=== PATIENT | female | born 1950 | race Caucasian/White ===

== ENCOUNTER 2017-08-20 10:50 | Emergency (ER) | payer MEDICARE, SELFPAY ==
[2017-08-20 10:50] VITALS: BP 186/102; PULSE 76; RESP 18; TEMP 36.6; O2SAT 97; BMI 34.9
[2017-08-20 11:15] VITALS: PULSE 72; RESP 96; O2SAT 14
--- NOTE | 2017-08-20 12:01 | EKG12_ITS ---
Test Reason : SOB Blood Pressure : / mmHG Vent. Rate : 068 BPM Atrial Rate : 068 BPM P-R Int : 190 ms QRS Dur : 072 ms QT Int : 440 ms P-R-T Axes : 046 -12 033 degrees QTc Int : 467 ms Normal sinus rhythm Normal ECG Confirmed by KEVIN BARAKAT ([id number]), online editor JAYA GRAHAM ([id number] on 08/24/2017 1:46:42 PM Referred By: MELISSA Confirmed By:KEVIN BARAKAT
--- NOTE | 2017-08-20 12:02 | ED.VISSUMM ---
- ER Visit Summary Date of Service: 08/20/17 Chief Complaint: Dental finding of pulmonary emboli and iliac clot found on abdominal CT at the [facility]. History of Present Illness: The patient is a 67 F past medical history of breast CA and depression. Patient never had a DVT or PE. She is on no blood thinners. She has had no recent travel, surgery, mobilization. She denies any leg pain or swelling. She denies any shortness of breath or chest pain. She denies any hemoptysis. Today on a CT the results showed a pulmonary embolus and a right common iliac thrombus. And her oncologist from the [facility] in the [facility] be evaluated. Patient herself denies any complaints whatsoever. Physical Examination: Well-appearing female no acute distress. Vital signs are stable afebrile. Pulse ox 97% room air no signs of hypoxia. No distress. HEENT exam unremarkable. Neck nontender no JVD. Lungs good auscultation bilaterally. Heart regular rate and rhythm no murmur. Abdomen soft nontender. He is moving all 4 extremities. Neurovascular intact. No edema or cords. Neurologically she is awake and alert without focal deficits. Test Results: Screening labs and a coagulopathy profile will be obtained. BC normal. H&H of 13 and 39. BMP unremarkable with a creatinine of 0.8. Emergency Department Course and Treatment: Spoke with Dr. Carranza's office staff. Patient will be discharged home. Started on Xarelto 50 mg twice daily for 21 days and then increase to 20 mg once a day. She needs a follow-up with Dr. Carranza for further evaluation. I did send a coagulopathy panel that will not return at this time. That can be followed up as an outpatient. Treatment Plan: Xarelto twice daily for 3 weeks and then daily. Disposition: Discharge Impression: Acute right iliac vein DVT and right lung pulmonary embolus (both incidental findings on abdominal CT at [facility]). Anticoagulated on Xarelto This note was generated with [employer] dictation software. It may contain incorrect words, spelling, and punctuation that were not noted in review of the chart prior to signing ED Disposition - Plan for ED Patient: Chief Complaint: Shortness of Breath Referrals: Xavier Poon III, MD [Primary Care Provider] -
--- NOTE | 2017-08-20 12:06 | ED.DCSUM_ITS ---
- ER Visit Summary Date of Service: 08/20/17 Chief Complaint: Dental finding of pulmonary emboli and iliac clot found on abdominal CT at the [facility]. History of Present Illness: The patient is a 67 F past medical history of breast CA and depression. Patient never had a DVT or PE. She is on no blood thinners. She has had no recent travel, surgery, mobilization. She denies any leg pain or swelling. She denies any shortness of breath or chest pain. She denies any hemoptysis. Today on a CT the results showed a pulmonary embolus and a right common iliac thrombus. And her oncologist from the [facility] in the [facility] be evaluated. Patient herself denies any complaints whatsoever. Physical Examination: Well-appearing female no acute distress. Vital signs are stable afebrile. Pulse ox 97% room air no signs of hypoxia. No distress. HEENT exam unremarkable. Neck nontender no JVD. Lungs good auscultation bilaterally. Heart regular rate and rhythm no murmur. Abdomen soft nontender. He is moving all 4 extremities. Neurovascular intact. No edema or cords. Neurologically she is awake and alert without focal deficits. Test Results: Screening labs and a coagulopathy profile will be obtained. BC normal. H&H of 13 and 39. BMP unremarkable with a creatinine of 0.8. Emergency Department Course and Treatment: Spoke with Dr. Carranza's office staff. Patient will be discharged home. Started on Xarelto 50 mg twice daily for 21 days and then increase to 20 mg once a day. She needs a follow-up with Dr. Carranza for further evaluation. I did send a coagulopathy panel that will not return at this time. That can be followed up as an outpatient. Treatment Plan: Xarelto twice daily for 3 weeks and then daily. Disposition: Discharge Impression: Acute right iliac vein DVT and right lung pulmonary embolus (both incidental findings on abdominal CT at [facility]). Anticoagulated on Xarelto This note was generated with [employer] dictation software. It may contain incorrect words, spelling, and punctuation that were not noted in review of the chart prior to signing ED Disposition - Plan for ED Patient: Chief Complaint: Shortness of Breath Referrals: Xavier Poon III, MD [Primary Care Provider] -
[2017-08-20 12:09] VITALS: BP 145/102; PULSE 70; RESP 22; O2SAT 98
[2017-08-20 12:49] VITALS: O2SAT 98
[2017-08-20 12:53] LABS: Hematocrit 39.4 % (37-47); Hemoglobin 13.1 g/dl (12.0-15.0); Mean Corp Hgb Conc 33.2 g/gl (32-36); Mean Corpuscular Hgb 30.8 pg (27.0-32.0); Mean Corpuscular Volume 92.5 fL (81-99); Mean Platelet Vol. 11.4 fl (6.2-12.0); Platelet Count 213 K/mm3 (150-450); RBC Distribution Width CV 12.5 % (11.6-14.6); RBC Distribution Width SD 42.2 fl (35.1-43.9); Red Blood Count 4.26 M/mm3 (4.2-5.4); White Blood Count 6.9 K/mm3 (4.4-11.0)
[2017-08-20 12:58] LABS: Scan Indicated on CBC? Y/N NO
[2017-08-20 13:04] LABS: BUN 9 mg/dL (7-18); Creatinine, Serum 0.88 mg/dL (0.55-1.02); Estimated Creatinine Clearance 49.06 ml/min; Glucose 85 mg/dL (74-106)
[2017-08-20 13:05] LABS: Anion Gap 6 (5-15); BUN/Creat Ratio 10.3 RATIO (10-20); Calcium,Total 8.6 mg/dL (8.5-10.1); Chloride 110 mmol/L (98-107); EST Glomerular Filtration Rate 68 mL/min (>60); Est Glom Filt Rate - Afr Amer 83 mL/min (>60); Potassium 4.2 mmol/L (3.5-5.1); Sodium Level 141 mmol/L (136-145)
--- NOTE | 2017-08-20 13:31 | ED.DEP ---
ED Disposition - Plan for ED Patient: Disposition: Home or Assisted Living Chief Complaint: Shortness of Breath Instructions: Pulmonary Embolism, ED DVT Prescriptions: Rivaroxaban [Xarelto] 15 mg PO BID #42 tab Referrals: Xavier Poon III, MD [Primary Care Provider] - Additional Instructions: Xarelto 50 mg twice a day for the next 3 weeks. Kodi need to get a new prescription for 20 mg once a day. You have a blood clot in your right lung and right upper leg. I did send a clotting panel which his blood work to make sure you do not have a clotting disorder. That will not come back today can be followed up by Dr. Ramirez. Call and follow-up with Dr. RAMIREZ. Return if feeling worse, bruising, black or bloody stools, or feeling worse.
[2017-08-20 13:33] VITALS: PULSE 72; RESP 19; O2SAT 96
[2017-08-20 13:52] VITALS: BP 156/84; PULSE 70; RESP 17; O2SAT 96
[2017-08-20] MEDS: Rivaroxaban 15 MG Tablet PO (13:53)
== END 2017-08-20 13:56 | disposition home or self-care (01) ==
PROVIDERS: Emergency Provider Emergency Medicine; Family Provider Family Medicine; PCP Family Medicine
DX: I26.99 Other pulmonary embolism without acute cor pulmonale (principal); I82.421 Acute embolism and thrombosis of right iliac vein; F32.9 Major depressive disorder, single episode, unspecified; Z79.899 Other long term (current) drug therapy; Z85.3 Personal history of malignant neoplasm of breast
CPT/HCPCS: 80048; 81240; 81241; 85027; 85300; 85302; 85305; 85306; 86146; 86147; 93005; 99285; A4216

== ENCOUNTER 2020-01-23 10:45 | Emergency (ER) | payer MEDICARE, SELFPAY ==
[2020-01-23 10:46] VITALS: BP 147/98; PULSE 101; RESP 19; TEMP 36.4; O2SAT 94; BMI 38.9
--- NOTE | 2020-01-23 11:27 | ED.VIS.BACK ---
History of Present Illness Chief Complaint: Back Detail of Chief Complaint: stress incontinence which she is had for 1 month Informant: Patient Onset: Month(s) Context: Sudden Onset Injury: - - No history of trauma, lifting or bending injury. Timing: Continuous Quality: Dull, Aching Location: Lumbar Current Severity: Mild Maximum Severity: Severe Worsened by: improves with: Movement, Ambulation, Bending, Lifting. worse with: Night time pain Relieved by: - - Markedly improved after taking pain medicine prior to arrival Associated Symptoms: - - She denies radicular pain, bowel bladder dysfunction i.e. urinary retention and bowel incontinence. She denies saddle paresthesia or anesthesia. She denies foot drop. She denies weakness in her quadricep muscles i.e. buckling of her knees going up or down steps. Narrative: Patient is a 69-year-old woman who presents with central low back pain that started 1 month ago. She denies bowel bladder dysfunction. She denies saddle paresthesia anesthesia. She denies radicular pain. She denies foot drop. She denies quadricep weakness going up or down steps. She denies fever or chills. She denies dysuria, frequency or urgency. She does have stress incontinence for approximately 1 month. There is no history of direct trauma. Prior similar symptoms: Yes Recent Illness/Hospitalization: No - Past Medical History (1) History of depression Status: Acute (2) group home current use of anticoagulant Status: Acute (3) History of venous thromboembolism Status: Acute Past Medical History - Allergies and Home Meds Allergies/Adverse Reactions: Allergies ampicillin Allergy (Verified 01/23/20 10:49) Rash Primary Care Physician: Xavier Poon III, MD [Primary Care Provider] - Prior records reviewed: Yes Surgical History: noncontributory Lives: Alone Smoking Status: Never smoker Alcohol: None Drugs: None Review of Systems General: Denies: Chills, Fever, Malaise, Subjective Eyes: Denies: Visual changes - bilaterally, Blurred Vision - bilaterally ENT: Denies: Rhinorrhea, Sore throat Cardiovascular: Denies: Chest pain, Palpitations Respiratory: Denies: Dyspnea, Cough, Dyspnea on exertion Gastrointestinal: Denies: Abdominal pain, Nausea, Vomiting, Diarrhea, Constipation, Melena, Hematochezia, -, - Genitourinary: Reports: - - Positive for stress incontinence. Denies: Dysuria, Hematuria, Frequency Musculoskeletal: Reports: Back pain. Denies: Myalgias, Arthralgias, Neck pain, Swelling, Extremity Pain, -, - Skin: Denies: Rash, Wounds Neurological: Denies: Headache, Weakness, Parasthesia, Numbness Psych: Reports: Depression Hematologic: Denies: Easy bruising, Easy bleeding Physical Exam Vital Signs/Narrative: Vital Signs Temp Pulse Resp BP Pulse Ox 01/23/20 10:46 97.6 F L 101 H 19 H 147/98 H 94 Inital Vital Signs reviewed: Yes General: Well nourished, Well developed, Obese Head: Normocephalic, Atraumatic Eyes: Perrl, EOMI ENT: Moist mucous membranes, No rhinorrhea Neck: Supple, Nontender Cardiovascular: Regular rate, Regular rhythm, No murmurs Respiratory: No distress, CTA bilaterally, Chest nontender Abdomen: Soft, Nontender, Nondistended, Normal bowel sounds Back: Normal Inspection, Nontender Extremeties: Nontender, No edema Skin: Normal color, No rash Neuro: Alert, Oriented, Normal Strength, Normal Sensation, Normal DTR, Normal Gait - There is no foot drop. Able to walk on heels and toes. Able to perform 1 legged squat right and left side. Sensation is normal over L3, L4, L5 and S1 dermatome., Normal Reflexes, Normal Cerebellar Reflexes: Right Patellar - Flexes are symmetric. 1+, Right Achilles, Left Patellar, Left Achilles. Negative for: Right Clonus, Right Babinski, Left Clonus, Left Babinski Psychological: Normal affect Diagnostic/Tx/Re-eval Laboratory Results 01/23/20 11:22 Urine Color Yellow Urine Clarity Clear Urine pH 5.0 Ur Specific [place] 1.025 Urine Protein 15 H Urine Glucose (UA) Normal Urine Ketones 5 H Urine Occult Blood Negative Urine Nitrite Negative Urine Bilirubin Negative Urine Urobilinogen Normal Ur Leukocyte Esterase 500 H Urine RBC 0 SEEN Urine WBC 0 SEEN Ur Squamous Epith Cells 0-5 SEEN Urine Bacteria 0 SEEN Urine Mucus 0 SEEN - Medical Decision Making Bladder scan was obtained to determine if patient has overflow incontinence. UA was obtained to rule out you urinary tract infection. Patient has central back pain. She has no findings to suggest acute herniated disc. There is no radicular pain. There is no objective neurologic findings. Bladder scan whether cc of urine in the bladder. There is no evidence of urinary tract infection. Since there is no findings or concern for cauda equina and there is no concern for acute herniated disc with neurologic deficit a stat MRI is not warranted or indicated. Patient was deferred to [employer] operations research manager for the clinic for her stress urinary incontinence. She was instructed to follow-up with her primary care physician for pain management. ED Disposition - Plan for ED Patient: Disposition: Home or Assisted Living Diagnosis: Acute low back pain without sciatica, Stress incontinence Instructions: ED Back Pain Acute or Chronic, ED Bladder Instability Female Referrals: Xavier Poon III, MD [Primary Care Provider] - 3-5 Days if not improving Carmelina Suazo DO [STAFF PHYSICIAN] - 1 Week
[2020-01-23 11:29] LABS: Bacteria 0 SEEN /hpf (None Seen); Mucous, Urine 0 SEEN /hpf (<or=2+); Red Blood Cells-Urine 0 SEEN /hpf (0-5); White Blood Cells 0 SEEN /hpf (0-5)
[2020-01-23 11:36] LABS: Color, Urine Yellow (Yellow); Glucose, Dipstick Normal (Normal); Ketone-Dipstick 5 mg/dl (Negative); Leukocyte Esterase-Dipstick 500 /ul (Negative); Nitrite-Dipstick Negative (Negative); Occult Blood-Urine Negative /ul (Negative); Protein-Dipstick 15 mg/dl (Negative); Specific Gravity, Urine 1.025 (1.002-1.030); Urine Bilirubin Dipstick Negative (Negative); Urine Clarity Clear (Clear); Urine Urobilinogen Normal (Normal)
[2020-01-23 11:46] LABS: Squamous Epithelial Cells - UA 0-5 SEEN /hpf (5-10)
== END 2020-01-23 13:07 | disposition home or self-care (01) ==
PROVIDERS: Emergency Provider Emergency Medicine; PCP Family Medicine
DX: M54.5 Low back pain (principal); E66.9 Obesity, unspecified; Z86.718 Personal history of other venous thrombosis and embolism; Z79.01 Long term (current) use of anticoagulants; F32.9 Major depressive disorder, single episode, unspecified
CPT/HCPCS: 81001; 99282

== ENCOUNTER 2020-08-23 09:48 | Outpatient (RCR) | payer MEDICARE, SELFPAY ==
[2020-08-23] MEDS: COVID-19 VACC, MRNA(PFIZER)/PF 30 MCG/0.3 ML SYRINGE IM (15:31)
[2020-09-13] MEDS: COVID-19 VACC, MRNA(PFIZER)/PF 30 MCG/0.3 ML SYRINGE IM (15:19)
== END 2020-11-20 23:59 ==
LOC: IMMUN 09:48
PROVIDERS: PCP Family Medicine; Referring Provider Family Medicine; Visit Provider Family Medicine
DX: Z23 Encounter for immunization (principal)
CPT/HCPCS: 0001A; 0002A; 91300

== ENCOUNTER 2021-07-08 19:45 | Inpatient (IN) | payer MEDICARE, SELFPAY ==
[2021-07-08 19:45] VITALS: BP 150/92; PULSE 92; RESP 17; TEMP 36.6; O2SAT 99; BMI 35.8
--- NOTE | 2021-07-08 20:05 | ED.VIS.GI ---
HPI HPI - GI History of Present Illness Chief Complaint: Abd Pain Informant: patient Narrative Narrative: Increasing abdominal pain nausea and vomiting since 3 PM today. She ate peanut butter and jelly along with tomato soup shortly after her symptoms started. Denies hematemesis. Denies diarrhea. Last bowel movement yesterday. She states she does not have flatus today. Total hysterectomy in the past by Dr. Poon, Sr. unclear if her appendix was removed at that time. She has had a partial colectomy with reversal in the past. She has had a bowel obstruction in the past. Currently nauseated. Denies urinary symptoms. Prior similar symptoms: Yes PFSH PFSH Medical History Adult-onset Still's disease Anxiety Bowel obstruction Breast cancer Depression Endometriosis Home Medications alprazolam 0.25 mg PO TID PRN PRN 08/16/14 [History Last Taken Unknown] escitalopram oxalate 10 mg PO DAILY 08/16/14 [History Last Taken Unknown] Allergy/AdvReac Type Severity Reaction Status Date / Time ampicillin Allergy Rash Verified 07/08/21 19:49 Surgical History H/O lumpectomy H/O: hysterectomy History of bowel resection History of colostomy reversal Social History Smoking Status: Never smoker ROS ROS ED Constitutional Constitutional ED: Denies chills, fever(s) or sweats Eyes Eyes: Denies change in vision ENT ENT ED: Denies dysphagia or sore throat Cardiovascular Cardiovascular: Denies chest pain, leg edema, palpitations or racing heartbeat Respiratory/Chest Respiratory/Chest: Denies cough, dyspnea or dyspnea on exertion Gastrointestinal Gastrointestinal: Reports abdominal pain, nausea and vomiting; Denies diarrhea Genitourinary Genitourinary ED: Denies dysuria, hematuria or urinary frequency Musculoskeletal Musculoskeletal: Denies back pain, extremity pain or neck pain Integumentary Denies rash or wounds Neurologic Neurologic: Denies headache(s), paresthesias or weakness EXAM Physical Exam Const Vital Signs: 07/08/21 19:45 Temperature 97.8 F Temperature Source Temporal Pulse Rate 92 Respiratory Rate 17 Blood Pressure 150/92 H Blood Pressure Mean 111 Pulse Ox 99 Oxygen Delivery Method Room Air Positive well nourished and well developed General Appearance ED: well developed and NAD HEENT Reports moist mucous membranes normocephalic and atraumatic Eyes PERRL, EOMs intact bilaterally and conjunctivae normal General Eye ED: Yes normal appearance of both eyes Neck no lymphadenopathy and supple General: Negative for tenderness Chest Wall Chest: Negative for tenderness Resp normal respiratory effort and normal air movement Effort and Inspection: symmetric chest movement; Negative for respiratory distress Cardio regular rate, regular rhythm and no murmurs Peripheral Pulses: pulses 2+ throughout GI normal to inspection, nondistended, normoactive bowel sounds GI Narrative: Tenderness generalized throughout without guarding or rebound, hypoactive bowel sounds. Vertical lower midline healed incision noted. Palpation: Negative for guarding or rebound tenderness present Back/Spine no CVA tenderness and no thoracic nor lumbar tenderness Extremity normal to inspection General Extremety ED: Negative for edema or tenderness General Extremity: Negative for edema Neuro oriented x3 and no sensory deficits noted Sensorium / Orientation: awake and alert Skin no rashes or lesions noted and no wounds MDM MDM MDM Narrative Medical decision making narrative: Patient history clinical concerns for bowel obstruction. Work-up initiated. Labs white count of 14, normal lipase and liver enzymes. Creatinine 0.97. Urine negative for infection. Noncontrast CT scan per radiology concerning for small bowel obstruction. Patient was given Zofran fluids. She is declining NG tube. I discussed with on-call surgeon Dr. Muniz who evaluated the patient, feels we can hold off on NG tube at this time. She will be medically managed. He requests admission to medicine. I spoke with hospitalist Dr. Kuo for admission. Lab Data Attestation: I reviewed the patient's lab results. Labs: Laboratory Results - last 24 hr 07/08/21 07/08/21 07/08/21 20:11 20:11 20:38 WBC 14.4 H RBC 4.92 Hgb 15.3 H Hct 46.2 MCV 93.9 MCH 31.1 MCHC 33.1 RDW Std Deviation 45.4 H RDW Coeff of Funmi 13.1 Plt Count 310 MPV 11.0 Immature Gran % (Auto) 0.400 Neut % (Auto) 84.5 H Lymph % (Auto) 9.0 L [place] % (Auto) 4.1 Eos % (Auto) 1.7 Baso % (Auto) 0.3 Absolute Neuts (auto) 12.2 H Absolute Lymphs (auto) 1.30 Nucleated RBC % 0 Sodium 140 Potassium 3.8 Chloride 106 Carbon Dioxide 27.0 Anion Gap 7 BUN 10 Creatinine 0.97 Estim Creat Clear Calc 44.00 Est GFR (MDRD) Af Amer 73 Est GFR (MDRD) Non-Af 60 BUN/Creatinine Ratio 10.3 Glucose 107 H Calcium 9.2 Total Bilirubin 0.30 AST 19 ALT 21 Alkaline Phosphatase 85 Total Protein 8.1 Albumin 3.7 Globulin 4.4 H Albumin/Globulin Ratio 0.8 L Lipase 87 Urine Color Yellow Urine Clarity Clear Urine pH 5.0 Ur Specific [place] 1.025 Urine Protein 15 H Urine Glucose (UA) Normal Urine Ketones Negative Urine Occult Blood 10 H Urine Nitrite Negative Urine Bilirubin Negative Urine Urobilinogen Normal Ur Leukocyte Esterase Negative Urine RBC 0 SEEN Urine WBC 0 SEEN Ur Squamous Epith Cells 0-5 SEEN Urine Bacteria RARE Urine Mucus 1+ Radiography Diagnostic Testing: Clinical Impression(s) from Imaging Studies Abdomen/Pelvis CT 07/08/21 20:22 Discharge Plan Dx/Rx/DC Orders Clinical Impression: History of depression, Small bowel obstruction Disposition Disposition: Acute Care Hospital [facility]
[2021-07-08] MEDS: 0.9% Normal Saline 1,000 ML 1000 ML IV (20:13)
[2021-07-08] MEDS: Ondansetron 4 MG/2 ML Vial IV (20:14)
[2021-07-08 20:19] LABS: Absolute Neutrophil Count 12.2 X10^3/uL (2.0-7.7); Basophil# 0.04 X10^3/uL; Basophil% 0.3 % (0-1); Eosinophil# 0.25 X10^3/uL; Eosinophils% 1.7 % (0-5); Hematocrit 46.2 % (37-47); Hemoglobin 15.3 g/dL (12.0-15.0); Mean Corp Hgb Conc 33.1 g/dL (32-36); Mean Corpuscular Hgb 31.1 pg (27.0-32.0); Mean Corpuscular Volume 93.9 fL (81-99); Monocyte# 0.59 X10^3/uL; Monocyte% 4.1 % (0-10); NRBC Flagged by Analyzer 0 % (0-5); Neutrophil # 12.19 X10^3/uL (2.7-7.7); Neutrophil % 84.5 % (47-70); Platelet Count 310 K/mm3 (150-450); RBC Distribution Width CV 13.1 % (11.6-14.6); RBC Distribution Width SD 45.4 fl (35.1-43.9); Red Blood Count 4.92 M/mm3 (4.2-5.4); White Blood Count 14.4 K/mm3 (4.4-11.0)
--- NOTE | 2021-07-08 20:22 | CT_ITS ---
STUDY: CT Abdomen And Pelvis W/O Contrast Injection 07/08/2021 8:40 PM REASON FOR EXAM: Female, 71 years old. Abdominal pain Pain -- vomiting, r/o sbo Individualized dose optimization techniques were used for this CT. COMPARISON: None. TECHNIQUE: CT Abdomen And Pelvis W/O Contrast Injection FINDINGS: There are atherosclerotic calcifications of visualized coronary arteries. The visualized portions of the heart are within normal limits. Partially visualized visualized ossification of the inferior right breast. There is an elevated right hemidiaphragm. Normal liver. Normal gallbladder and extrahepatic biliary system. Normal spleen. Normal pancreas. Normal bilateral adrenal glands. Non obstructive 1 to 2 mm left renal parenchymal stones. Non obstructive 1 to 2 mm right renal parenchymal stones. Normal visualized stomach. There are dilated loops of the small intestine with a non-distended colon consistent with a small bowel obstruction. Stool throughout the colon. There is non-visualization of the appendix. There are calcifications of the abdominal aorta. This is consistent for atherosclerotic disease. There is no abdominal aortic aneurysm. Normal inferior vena cava. Subcentimeter mesenteric lymph nodes. Nonspecific mesenteric stranding. Differential includes mesenteric panniculitis, hypo-albuminemia, sequela of superior mesentery vein thrombosis, mesenteric edema, lymphedema, inflammation, and trauma. Normal urinary bladder. There is absence of the uterus consistent with a prior hysterectomy. There is an umbilical hernia containing fat. There is endplate spondylosis of the vertebral body. Vacuum disc phenomenon in the level of L5-S1. IMPRESSION: (NOT LISTED IN ORDER OF SIGNIFICANCE) There are bilateral renal calculi. There is no evidence for an obstruction. There is no hydronephrosis. There are dilated loops of the small intestine with a non-distended colon consistent with a small bowel obstruction. Transition point is not clearly visualized. Other findings as above. Electronically Signed: Noah Arguello MD at 20:45 EST , Service support , CT/Abdomen/Pelvis without Cont
[2021-07-08 20:39] LABS: ALB/GLOB Ratio 0.8 RATIO (0.9-2.4); AST(SGOT) 19 U/L (15-37); Alanine Aminotransfer ALT/SGPT 21 U/L (13-56); Albumin, Serum 3.7 g/dL (3.2-5.0); Alkaline Phosphatase 85 U/L (45-117); Anion Gap 7 (5-15); BUN 10 mg/dL (7-18); BUN/Creat Ratio 10.3 RATIO (10-20); Calcium,Total 9.2 mg/dL (8.5-10.1); Chloride 106 mmol/L (98-107); Creatinine, Serum 0.97 mg/dL (0.55-1.02); EST Glomerular Filtration Rate 60 mL/min (>60); Est Glom Filt Rate - Afr Amer 73 mL/min (>60); Globulin 4.4 g/dL (2.2-4.2); Glucose 107 mg/dL (74-106); Lipase 87 U/L (73-393); Potassium 3.8 mmol/L (3.5-5.1); Protein, Total 8.1 g/dL (6.4-8.2); Sodium Level 140 mmol/L (136-145)
[2021-07-08 20:51] LABS: Red Blood Cells-Urine 0 SEEN /hpf (0-5); White Blood Cells 0 SEEN /hpf (0-5)
[2021-07-08 20:57] LABS: Color, Urine Yellow (Yellow); Glucose, Dipstick Normal (Normal); Ketone-Dipstick Negative (Negative); Leukocyte Esterase-Dipstick Negative /ul (Negative); Nitrite-Dipstick Negative (Negative); Occult Blood-Urine 10 /ul (Negative); Protein-Dipstick 15 mg/dl (Negative); Specific Gravity, Urine 1.025 (1.002-1.030); Urine Bilirubin Dipstick Negative (Negative); Urine Clarity Clear (Clear); Urine Urobilinogen Normal (Normal)
[2021-07-08 21:05] LABS: Bacteria RARE /hpf (None Seen); Mucous, Urine 1+ /hpf (<or=2+); Squamous Epithelial Cells - UA 0-5 SEEN /hpf (5-10)
--- NOTE | 2021-07-08 21:38 | EX.PCM.CON.S ---
Assessment & Plan Assessment/Plan (1) Partial small bowel obstruction: PLAN: At this point I do not think the patient has an acute abdomen. And I believe that there is a very good chance that she should resolve without NG tube decompression. She is deathly afraid of having an NG tube. I think it is okay for her to have ice chips and chewing gum. I have encouraged her to ambulate when she gets to the floor. HPI Consult Data Date of Consult: 07/08/21 HPI Narrative HPI Narrative: KIKI FRANKS, is a 71 F who presents with Increasing abdominal pain nausea and vomiting since 3 PM today. She ate peanut butter and jelly along with tomato soup shortly after her symptoms started. Denies hematemesis. Denies diarrhea. Last bowel movement yesterday. She states she does not have flatus today. Total hysterectomy in the past by Dr. Poon, Sr. unclear if her appendix was removed at that time. She has had a partial colectomy with reversal in the past. She has had a bowel obstruction in the past. Currently nauseated. Denies urinary symptoms. Prior similar symptoms: Yes PFSH Medical History Adult-onset Still's disease Anxiety Bowel obstruction Breast cancer Depression Endometriosis Home Medications alprazolam 0.25 mg PO TID PRN PRN 08/16/14 [History Last Taken Unknown] escitalopram oxalate 10 mg PO DAILY 08/16/14 [History Last Taken Unknown] Allergy/AdvReac Type Severity Reaction Status Date / Time ampicillin Allergy Rash Verified 07/08/21 19:49 Surgical History H/O lumpectomy H/O: hysterectomy History of bowel resection History of colostomy reversal Social History Smoking Status: Never smoker ROS Constitutional Constitutional: Denies chills or fatigue Cardiovascular Cardiovascular: Denies chest pain or chest pain at rest Respiratory/Chest Respiratory/Chest: Denies cough or dyspnea Gastrointestinal Gastrointestinal: Reports abdominal pain and vomiting; Denies dysphagia or hematochezia Physical Exam Const alert, oriented x3 and no apparent distress General Appearance: cooperative HEENT normocephalic and head/scalp atraumatic Eyes PERRL and EOMs intact bilaterally Resp clear to auscultation bilaterally Cardio Rate: regular rate Rhythm: regular rhythm GI soft to palpation Palpation: tender epigastric; Negative for guarding or hernia Lab / Micro Data Result Diagrams: 07/08/21 20:11 07/08/21 20:11 Labs: Laboratory Results - last 24 hr 07/08/21 20:11: WBC 14.4 H, RBC 4.92, Hgb 15.3 H, Hct 46.2, MCV 93.9, MCH 31.1, MCHC 33.1, RDW Std Deviation 45.4 H, RDW Coeff of Funmi 13.1, Plt Count 310, MPV 11.0, Immature Gran % (Auto) 0.400, Neut % (Auto) 84.5 H, Lymph % (Auto) 9.0 L, [place] % (Auto) 4.1, Eos % (Auto) 1.7, Baso % (Auto) 0.3, Absolute Neuts (auto) 12.2 H, Absolute Lymphs (auto) 1.30, Nucleated RBC % 0 07/08/21 20:11: Sodium 140, Potassium 3.8, Chloride 106, Carbon Dioxide 27.0, Anion Gap 7, BUN 10, Creatinine 0.97, Estim Creat Clear Calc 44.00, Est GFR (MDRD) Af Amer 73, Est GFR (MDRD) Non-Af 60, BUN/Creatinine Ratio 10.3, Glucose 107 H, Calcium 9.2, Total Bilirubin 0.30, AST 19, ALT 21, Alkaline Phosphatase 85, Total Protein 8.1, Albumin 3.7, Globulin 4.4 H, Albumin/Globulin Ratio 0.8 L, Lipase 87 07/08/21 20:38: Urine Color Yellow, Urine Clarity Clear, Urine pH 5.0, Ur Specific [place] 1.025, Urine Protein 15 H, Urine Glucose (UA) Normal, Urine Ketones Negative, Urine Occult Blood 10 H, Urine Nitrite Negative, Urine Bilirubin Negative, Urine Urobilinogen Normal, Ur Leukocyte Esterase Negative, Urine RBC 0 SEEN, Urine WBC 0 SEEN, Ur Squamous Epith Cells 0-5 SEEN, Urine Bacteria RARE, Urine Mucus 1+ Radiology Impression Abdomen/Pelvis CT 07/08/21 20:22
--- NOTE | 2021-07-08 21:43 | HP.PCM_ITS ---
HPI - General General Date of Admission: 07/08/21 HPI Narrative KIKI FRANKS, is a 71 F who presents to the emergency room following an onset of nausea and vomiting at 3 PM this afternoon. Patient has significant past medical history of bowel surgeries remotely. CT scan reveals dilated loops of small bowel consistent with a small bowel obstruction. Dr. Dread Muniz was consulted by emergency room physician and is already seen the patient and opted not to initiate nasogastric tube with vacuum at this time. The patient denies fevers or chills at this time and or respiratory complaints. She will be admitted to the general medical floor made n.p.o. with IV fluids and repeat KUB in the morning. [facility] Medical History Adult-onset Still's disease Anxiety Bowel obstruction Breast cancer Depression Endometriosis Home Medications alprazolam 0.25 mg PO TID PRN PRN 08/16/14 [History Last Taken Unknown] escitalopram oxalate 10 mg PO DAILY 08/16/14 [History Last Taken Unknown] Allergy/AdvReac Type Severity Reaction Status Date / Time ampicillin Allergy Rash Verified 07/08/21 19:49 Surgical History H/O lumpectomy H/O: hysterectomy History of bowel resection History of colostomy reversal Social History Smoking Status: Never smoker ROS Constitutional Constitutional: Denies chills Eyes Eyes: Denies blurry vision ENT HEENT: Denies abnormal hearing Cardiovascular Cardiovascular: Denies chest pain Respiratory/Chest Respiratory/Chest: Denies shortness of breath at rest Gastrointestinal Gastrointestinal: Reports abdominal pain, nausea and vomiting Genitourinary Genitourinary: Denies dysuria Musculoskeletal Musculoskeletal: Denies back pain Integumentary Integumentary: Denies dry skin Neurologic Neurologic: Denies abnormal gait Psychiatric Psychiatric: Denies anxiety Endocrine Endocrinology: Denies change in body appearance Vital Signs Vital Signs Vital Signs: 07/08/21 19:45 Temperature 97.8 F Temperature Source Temporal Pulse Rate 92 Respiratory Rate 17 Blood Pressure 150/92 H Blood Pressure Mean 111 Pulse Ox 99 Oxygen Delivery Method Room Air Weight Weight: 202 lb 2.622 oz Body Mass Index (BMI) 35.8 Physical Exam Const oriented x3 HEENT normocephalic and head/scalp atraumatic Eyes PERRL Neck supple Lymph Lymphatic: no lymphadenopathy noted Resp normal respiratory effort and clear to auscultation bilaterally Cardio regular rate, regular rhythm, S1 normal heart sound and S2 normal heart sound GI GI Narrative: MILD GENERALIZED Auscultation: hypoactive bowel sounds Palpation: tender Extremity normal capillary refill Skin General Skin Exam: turgor normal Neuro CN's II-XII intact bilaterally Psych affect normal Results Lab / Micro Data Result Diagrams: 07/08/21 20:11 07/08/21 20:11 Labs: Laboratory Results - last 24 hr 07/08/21 20:11: WBC 14.4 H, RBC 4.92, Hgb 15.3 H, Hct 46.2, MCV 93.9, MCH 31.1, MCHC 33.1, RDW Std Deviation 45.4 H, RDW Coeff of Funmi 13.1, Plt Count 310, MPV 11.0, Immature Gran % (Auto) 0.400, Neut % (Auto) 84.5 H, Lymph % (Auto) 9.0 L, [place] % (Auto) 4.1, Eos % (Auto) 1.7, Baso % (Auto) 0.3, Absolute Neuts (auto) 1 2.2 H, Absolute Lymphs (auto) 1.30, Nucleated RBC % 0 07/08/21 20:11: Sodium 140, Potassium 3.8, Chloride 106, Carbon Dioxide 27.0, Anion Gap 7, BUN 10, Creatinine 0.97, Estim Creat Clear Calc 44.00, Est GFR (MDRD) Af Amer 73, Est GFR (MDRD) Non-Af 60, BUN/Creatinine Ratio 10.3, Glucose 107 H, Calcium 9.2, Total Bilirubin 0.30, AST 19, ALT 21, Alkaline Phosphatase 85, Total Protein 8.1, Albumin 3.7, Globulin 4.4 H, Albumin/Globulin Ratio 0.8 L , Lipase 87 07/08/21 20:38: Urine Color Yellow, Urine Clarity Clear, Urine pH 5.0, Ur Specific [place] 1.025, Urine Protein 15 H, Urine Glucose (UA) Normal, Urine Ketones Negative, Urine Occult Blood 10 H, Urine Nitrite Negative, Urine Bilirubin Negative, Urine Urobilinogen Normal, Ur Leukocyte Esterase Negative, Urine RBC 0 SEEN, Urine WBC 0 SEEN, Ur Squamous Epith Cells 0-5 SEEN, Urine Bacteria RARE, Urine Mucus 1+ Radiology Impression Abdomen/Pelvis CT 07/08/21 20:22 Assessment & Plan Assessment/Plan (1) Small bowel obstruction: (2) History of depression: (3) [facility] current use of anticoagulant: (4) History of venous thromboembolism: PLAN: Plan 1. Small bowel obstruction?admit patient to general medical floor, consult Dr. Kodi Muniz, make patient n.p.o., IV normal saline at 125 cc/h repeat BMP in the morning and KUB. 2. DVT prophylaxis?patient is already on long-term anticoagulation therapy for history of DVT Charges/Coding Visit Charges Inpatient E&M: 25932 Init Hosp L3
[2021-07-08 22:34] VITALS: BP 150/92; PULSE 77; RESP 18; TEMP 36.8; O2SAT 96
[2021-07-08 22:47] VITALS: BP 151/84; PULSE 84; RESP 18; TEMP 36.9; O2SAT 98; BMI 34.7
[2021-07-09] MEDS: 0.9% Normal Saline 1,000 ML 125 ML IV ×3 (00:52→18:20)
[2021-07-09] MEDS: 0.9% Saline Lock 10 ML Syringe IV (05:10)
[2021-07-09 05:12] VITALS: BP 138/72; PULSE 78; RESP 16; TEMP 36.7; O2SAT 98
--- NOTE | 2021-07-09 05:55 | RAD_ITS ---
EXAM: XR ABDOMEN, 2 VIEWS : 1950 CLINICAL INDICATION: Partial small bowel obstruction TECHNIQUE: Frontal view of the abdomen/pelvis with upright view of the abdomen. This report was created using [employer] report generation technology. COMPARISON: CT from 07/08/21 FINDINGS: LOWER THORAX: No acute pathology. INTRAPERITONEAL SPACE: No free air. GASTROINTESTINAL TRACT: Distended small bowel loops with scattered air-fluid levels on the upright projection. ORGANS: Unremarkable as visualized. No organomegaly. No abnormal calcifications. BONES/JOINTS: No acute pathology. SOFT TISSUES: No acute pathology. RAD/Abd Inc Decub and/or Erect IMPRESSION: Distended small bowel loops with scattered air-fluid levels on the upright projection. Findings may indicate ileus or partial obstruction. at 0502 Reported and signed by: Noah Byrd MD Electronically Signed: Noah Byrd MD at 5:01 EST Tel , Service support ,
[2021-07-09 06:20] LABS: Absolute Lymphocyte Count 1.61 X10^3/uL (0.83-4.51); Absolute Neutrophil Count 6.2 X10^3/uL (2.0-7.7); Basophil# 0.03 X10^3/uL; Basophil% 0.4 % (0-1); Eosinophil# 0.18 X10^3/uL; Eosinophils% 2.1 % (0-5); Hematocrit 39.5 % (37-47); Lymphocyte # 1.61 X10^3/ul (0.83-4.51); Lymphocyte % 18.8 % (19-41); Mean Corp Hgb Conc 32.9 g/dL (32-36); Mean Corpuscular Hgb 31.3 pg (27.0-32.0); Mean Platelet Vol. 11.1 fl (6.2-12.0); Monocyte# 0.57 X10^3/uL; Monocyte% 6.7 % (0-10); NRBC Flagged by Analyzer 0 % (0-5); Neutrophil # 6.16 X10^3/uL (2.7-7.7); Neutrophil % 71.9 % (47-70); Platelet Count 256 K/mm3 (150-450); RBC Distribution Width CV 13.2 % (11.6-14.6); RBC Distribution Width SD 46.3 fl (35.1-43.9); Red Blood Count 4.16 M/mm3 (4.2-5.4); White Blood Count 8.6 K/mm3 (4.4-11.0)
[2021-07-09 06:44] LABS: Anion Gap 4 (5-15); BUN 11 mg/dL (7-18); BUN/Creat Ratio 12.6 RATIO (10-20); Calcium,Total 7.9 mg/dL (8.5-10.1); Chloride 116 mmol/L (98-107); Creatinine, Serum 0.88 mg/dL (0.55-1.02); EST Glomerular Filtration Rate 68 mL/min (>60); Est Glom Filt Rate - Afr Amer 82 mL/min (>60); Estimated Creatinine Clearance 46.38 ml/min; Glucose 104 mg/dL (74-106); Potassium 4.1 mmol/L (3.5-5.1); Sodium Level 145 mmol/L (136-145)
--- NOTE | 2021-07-09 07:35 | PN.HOSP_ITS ---
Subjective Subjective Patient is a 71-year-old lady who presented with abdominal pain with associated nausea and vomiting. Imaging studies obtained on admission demonstrated features consistent with small bowel obstruction. Admitted to regular nursing floor for subsequent management Objective Data Objective Data Vital Signs: Vital Signs Temp Pulse Resp BP Pulse Ox 98.1 F 78 16 138/72 H 98 07/09/21 05:12 07/09/21 05:12 07/09/21 05:12 07/09/21 05:12 07/09/21 05:12 Oxygen Delivery Method Room Air Weight: 89 kg Body Mass Index (BMI) 34.7 Intake & Output: Intake and Output for Last 24 Hours 07/07/21 07/08/21 07/09/21 23:59 23:59 23:59 Intake Total 1000 / 1000 Output Total 100 / 100 400 / 400 Balance -100 / -100 600 / 600 Lab / Micro Data Result Diagrams: 07/09/21 06:00 07/09/21 06:00 Labs: Laboratory Results - last 24 hr 07/08/21 20:11: WBC 14.4 H, RBC 4.92, Hgb 15.3 H, Hct 46.2, MCV 93.9, MCH 31.1, MCHC 33.1, RDW Std Deviation 45.4 H, RDW Coeff of Funmi 13.1, Plt Count 310, MPV 11.0, Immature Gran % (Auto) 0.400, Neut % (Auto) 84.5 H, Lymph % (Auto) 9.0 L, [place] % (Auto) 4.1, Eos % (Auto) 1.7, Baso % (Auto) 0.3, Absolute Neuts (auto) 12.2 H, Absolute Lymphs (auto) 1.30, Nucleated RBC % 0 07/08/21 20:11: Sodium 140, Potassium 3.8, Chloride 106, Carbon Dioxide 27.0, Anion Gap 7, BUN 10, Creatinine 0.97, Estim Creat Clear Calc 44.00, Est GFR (MDRD) Af Amer 73, Est GFR (MDRD) Non-Af 60, BUN/Creatinine Ratio 10.3, Glucose 107 H, Calcium 9.2, Total Bilirubin 0.30, AST 19, ALT 21, Alkaline Phosphatase 85, Total Protein 8.1, Albumin 3.7, Globulin 4.4 H, Albumin/Globulin Ratio 0.8 L , Lipase 87 07/08/21 20:38: Urine Color Yellow, Urine Clarity Clear, Urine pH 5.0, Ur Specific Lynn 1.025, Urine Protein 15 H, Urine Glucose (UA) Normal, Urine Ketones Negative, Urine Occult Blood 10 H, Urine Nitrite Negative, Urine Yossi irubin Negative, Urine Urobilinogen Normal, Ur Leukocyte Esterase Negative, Urine RBC 0 SEEN, Urine WBC 0 SEEN, Ur Squamous Epith Cells 0-5 SEEN, Urine Bacteria RARE, Urine Mucus 1+ 07/09/21 06:00: WBC 8.6, RBC 4.16 L, Hgb 13.0, Hct 39.5, MCV 95.0, MCH 31.3, MCHC 32.9, RDW Std Deviation 46.3 H, RDW Coeff of Funmi 13.2, Plt Count 256, MPV 11.1, Immature Gran % (Auto) 0.100, Neut % (Auto) 71.9 H, Lymph % (Auto) 18.8 L, [place] % (Auto) 6.7, Eos % (Auto) 2.1, Baso % (Auto) 0.4, Absolute Neuts (auto) 6.2, Absolute Lymphs (auto) 1.61, Nucleated RBC % 0 07/09/21 06:00: Sodium 145, Potassium 4.1, Chloride 116 H, Carbon Dioxide 25.0, Anion Gap 4 L, BUN 11, Creatinine 0.88, Estim Creat Clear Calc 46.38, Est GFR (MDRD) Af Amer 82, Est GFR (MDRD) Non-Af 68, BUN/Creatinine Ratio 12.6, Glucose 104, Calcium 7.9 L Radiography Diagnostic Testing: Radiology Impression Abdomen/Pelvis CT 07/08/21 20:22 Abdomen X-Ray 07/09/21 05:55 IMPRESSION: Distended small bowel loops with scattered air-fluid levels on the upright projection. Findings may indicate ileus or partial obstruction. at 0502 Reported and signed by: Noah Byrd MD Electronically Signed: Noah Byrd MD at 5:01 EST Tel , Service support , Physical Exam Narrative GENERAL: cooperative HEENT: Atraumatic; EYES; Anicteric, Normal Conjunctiva NECK; supple, normal thyroid, RESPIRATORY: Diminished to auscultation CARDIOVASCULAR: Regular S1 S2, GI: soft, hypoactive bowel sounds : No Renal angle tenderness; EXTREMITIES: No edema, no clubbing, MUSCULOSKELETAL: no muscle waisting NEURO: Awake; no lateralizing signs. 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 Imaging studies obtained on admission demonstrated features consistent with small bowel obstruction. Admitted to regular nursing floor for subsequent management 1. Small bowel obstruction ?Suspected to be secondary to adhesions given patient previous abdominal surgery. Patient has been admitted to regular nursing floor currently being managed with bowel rest IV fluids pain meds as well as antinausea medications. Consult was placed to general surgery Dr. Muniz, his notes and recommendations reviewed. Patient progress being monitored with daily serial imaging studies 2. Previous history of breast CA ?Currently in remission following lumpectomy 3. Depression with anxiety ?Patient is on SSRI as well as alprazolam as needed 4. Class I obesity with BMI of 34.8 ?Weight loss advised 5. History of previous VTE ?Currently stable 6. Bilateral renal calculi ?With no evidence of obstruction we will continue to monitor 7. DVT prophylaxis ?Lovenox Advance planning; did discuss with the patient regarding advanced directives as well as CODE STATUS. Did explain the various scenarios involved ( FULL CODE, DNR CCA, DNR CCA with no intubation, and DNR CC and what each meant) patient opted for full code with CPR and intubation if needed. Order was placed. Time spent on discussion 18 minutes. Charges/Coding Visit Charges Inpatient E&M: 14187 Subs Hosp L3 Procedures Hospitalists Procedures: 94331 Advncd Care Plan 30 Min
--- NOTE | 2021-07-09 08:02 | PCS.PANDOC ---
PANDEMIC DOCUMENTATION INITIATED: Date: 01/28/2021 Time: 190
[2021-07-09 10:00] VITALS: BP 146/79; PULSE 80; RESP 12; TEMP 36.7; O2SAT 98
--- NOTE | 2021-07-09 10:50 | CASEMGMT ---
DEVI LOPEZ Assessment: Face to Face with pt for initial transition planning/care coordination assessment. RN JESSICA introduced self and role at [facility], pt voices understanding and consents to assessment. Pt is A/O x4 and answers all questions appropriately at this time. Pt lying in bed in no distress. Pt seen earlier ambulating in the halls. Care providers, pharmacy, and demographics verified/updated. Admitting Dx: SBO PCP: Álvaro, pt states she is planning on switching at some point. She had previously seen . Specialists: chantelle Alicea Preferred Pharmacy: [facility] Insurance: Advanced Patient Care [facility] Prescription Benefit: yes LW/HPOA: Pt denies having a LW/DPOA and denies need for info regarding AD. LNOK: Ki Shaw, ; Jaimee Dee dtr Living Arrangements: Pt lives with in a single story house with 5 steps to enter. Pt reports she is I in ADL's and denies concerns at home. Transportation: Pt drives self and denies concerns with transportation. DME/HHC/SNF: Pt denies having any DME, hx of HHC or SNF stays. Pt states no concerns with going home at time of dc. 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 Pt states no further concerns/needs. CM to follow. Advised pt to ask CM if any further question/concerns/needs arise, voices understanding. Pt Goal: Home Plan: Home
[2021-07-09] MEDS: Enoxaparin 40 MG/0.4 ML Syringe SC (12:04)
[2021-07-09 14:11] VITALS: BP 152/77; PULSE 80; RESP 14; TEMP 36.7; O2SAT 97
--- NOTE | 2021-07-09 15:29 | NURSING ---
[facility] student charting reviewed.Cruz QUINONEZ, [facility] clinical instructor
--- NOTE | 2021-07-09 17:36 | PCM.PN.SRG ---
Subjective Subjective No flatus or bowel movements. Abdominal discomfort is minimal. No nausea or vomiting Objective Data Objective Data Abdomen is distended no rebound guarding or peritoneal signs Vital Signs: Vital Signs Temp Pulse Resp BP Pulse Ox 98.1 F 80 14 152/77 H 97 07/09/21 14:11 07/09/21 14:11 07/09/21 14:11 07/09/21 14:11 07/09/21 14:11 Oxygen Delivery Method Room Air Weight: 196 lb 3.382 oz Body Mass Index (BMI) 34.7 Intake & Output: Intake and Output for Last 24 Hours 07/07/21 07/08/21 07/09/21 23:59 23:59 23:59 Intake Total 1999 / 1999 Output Total 100 / 100 400 / 400 Balance -100 / -100 1600 / 1600 Lab / Micro Data Result Diagrams: 07/09/21 06:00 07/09/21 06:00 Labs: Laboratory Results - last 24 hr 07/08/21 20:11: WBC 14.4 H, RBC 4.92, Hgb 15.3 H, Hct 46.2, MCV 93.9, MCH 31.1, MCHC 33.1, RDW Std Deviation 45.4 H, RDW Coeff of Funmi 13.1, Plt Count 310, MPV 11.0, Immature Gran % (Auto) 0.400, Neut % (Auto) 84.5 H, Lymph % (Auto) 9.0 L, [place] % (Auto) 4.1, Eos % (Auto) 1.7, Baso % (Auto) 0.3, Absolute Neuts (auto) 12.2 H, Absolute Lymphs (auto) 1.30, Nucleated RBC % 0 07/08/21 20:11: Sodium 140, Potassium 3.8, Chloride 106, Carbon Dioxide 27.0, Anion Gap 7, BUN 10, Creatinine 0.97, Estim Creat Clear Calc 44.00, Est GFR (MDRD) Af Amer 73, Est GFR (MDRD) Non-Af 60, BUN/Creatinine Ratio 10.3, Glucose 107 H, Calcium 9.2, Total Bilirubin 0.30, AST 19, ALT 21, Alkaline Phosphatase 85, Total Protein 8.1, Albumin 3.7, Globulin 4.4 H, Albumin/Globulin Ratio 0.8 L, Lipase 87 07/08/21 20:38: Urine Color Yellow, Urine Clarity Clear, Urine pH 5.0, Ur Specific [place] 1.025, Urine Protein 15 H, Urine Glucose (UA) Normal, Urine Ketones Negative, Urine Occult Blood 10 H, Urine Nitrite Negative, Urine Bilirubin Negative, Urine Urobilinogen Normal, Ur Leukocyte Esterase Negative, Urine RBC 0 SEEN, Urine WBC 0 SEEN, Ur Squamous Epith Cells 0-5 SEEN, Urine Bacteria RARE, Urine Mucus 1+ 07/09/21 06:00: WBC 8.6, RBC 4.16 L, Hgb 13.0, Hct 39.5, MCV 95.0, MCH 31.3, MCHC 32.9, RDW Std Deviation 46.3 H, RDW Coeff of Funmi 13.2, Plt Count 256, MPV 11.1, Immature Gran % (Auto) 0.100, Neut % (Auto) 71.9 H, Lymph % (Auto) 18.8 L, [place] % (Auto) 6.7, Eos % (Auto) 2.1, Baso % (Auto) 0.4, Absolute Neuts (auto) 6.2, Absolute Lymphs (auto) 1.61, Nucleated RBC % 0 07/09/21 06:00: Sodium 145, Potassium 4.1, Chloride 116 H, Carbon Dioxide 25.0, Anion Gap 4 L, BUN 11, Creatinine 0.88, Estim Creat Clear Calc 46.38, Est GFR (MDRD) Af Amer 82, Est GFR (MDRD) Non-Af 68, BUN/Creatinine Ratio 12.6, Glucose 104, Calcium 7.9 L Radiography Diagnostic Testing: Radiology Impression Abdomen/Pelvis CT 07/08/21 20:22 Abdomen X-Ray 07/09/21 05:55 IMPRESSION: Distended small bowel loops with scattered air-fluid levels on the upright projection. Findings may indicate ileus or partial obstruction. at 0502 Reported and signed by: Noah Byrd MD Electronically Signed: Noah Byrd MD at 5:01 EST Tel , Service support , Assessment & Plan Assessment/Plan (1) Partial small bowel obstruction: PLAN: Continue present management. Patient is not in surgical distress at this time.
[2021-07-09 21:03] VITALS: BP 148/79; PULSE 73; RESP 18; TEMP 36.7; O2SAT 99
[2021-07-09] MEDS: Escitalopram Oxalate 10 MG Tablet PO (21:04)
[2021-07-09] MEDS: ALPRAZolam 0.25 MG Tablet PO (21:04)
[2021-07-10] MEDS: 0.9% Normal Saline 1,000 ML 125 ML IV ×2 (02:13→21:15)
[2021-07-10 04:55] VITALS: BP 131/66; PULSE 76; RESP 18; TEMP 36.6; O2SAT 95
--- NOTE | 2021-07-10 07:12 | PN.HOSP_ITS ---
Subjective Subjective Patient states that she finally did have a bowel movement during the night. Plan is for patient to be started on clear liquid to be advanced as tolerated with plans for patient to be discharged home later this afternoon Objective Data Objective Data Vital Signs: Vital Signs Temp Pulse Resp BP Pulse Ox 97.8 F 76 18 131/66 H 95 07/10/21 04:55 07/10/21 04:55 07/10/21 04:55 07/10/21 04:55 07/10/21 04:55 Oxygen Delivery Method Room Air Weight: 89 kg Body Mass Index (BMI) 34.7 Intake & Output: Intake and Output for Last 24 Hours 07/08/21 07/09/21 07/10/21 23:59 23:59 23:59 Intake Total 3000 / 3025 1489.59 / 1489.59 Output Total 100 / 100 400 / 600 800 / 800 Balance -100 / -100 2600 / 2425 689.59 / 689.59 Lab / Micro Data Result Diagrams: 07/09/21 06:00 07/09/21 06:00 Physical Exam Narrative GENERAL: cooperative HEENT: Atraumatic; EYES; Anicteric, Normal Conjunctiva NECK; supple, normal thyroid, RESPIRATORY: Diminished to auscultation CARDIOVASCULAR: Regular S1 S2, GI: soft, normoactive bowel sounds : No Renal angle tenderness; EXTREMITIES: No edema, no clubbing, MUSCULOSKELETAL: no muscle waisting NEURO: Awake; no lateralizing signs. SKIN: No Rash PSYCH; Flat affect Assessment & Plan Assessment/Plan (1) Small bowel obstruction: (2) History of depression: (3) [facility] current use of anticoagulant: (4) History of venous thromboembolism: PLAN: Patient is a 71-year-old lady who presented with abdominal pain with associated nausea and vomiting. Imaging studies obtained on admission demo nstrated features consistent with small bowel obstruction. Admitted to regular nursing floor for subsequent management 1. Small bowel obstruction ?Suspected to be secondary to adhesions given patient previous abdominal surgery. Patient has been admitted to regular nursing floor currently being m anaged with bowel rest IV fluids pain meds as well as antinausea medications. Consult was placed to general surgery Dr. Muniz, his notes and recommendations reviewed. Patient progress being monitored with daily serial imaging studies -07/10/2021 Patient states that she finally did have a bowel movement during the night. Plan is for patient to be started on clear liquid to be advanced as tolerated with plans for patient to be discharged home later this afternoon 2. Previous history of breast CA ?Currently in remission following lumpectomy 3. Depression with anxiety ?Patient is on SSRI as well as alprazolam as needed 4. Class I obesity with BMI of 34.8 ?Weight loss advised 5. History of previous VTE ?Currently stable 6. Bilateral renal calculi ?With no evidence of obstruction we will continue to monitor 7. DVT prophylaxis ?Lovenox Charges/Coding Visit Charges Inpatient E&M: 89395 Subs Hosp L2
[2021-07-10 07:40] VITALS: BP 142/82; PULSE 83; RESP 18; TEMP 36.6; O2SAT 95
[2021-07-10] MEDS: Enoxaparin 40 MG/0.4 ML Syringe SC (07:43)
--- NOTE | 2021-07-10 08:16 | DS.PCM_ITS ---
Providers Date of Admission: 07/08/21 Primary Care Physician: Dr. 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 Small bowel obstruction ?Suspected to be secondary to adhesions given patient previous abdominal surgery. Patient has been admitted to regular nursing floor currently being managed with bowel rest IV fluids pain meds as well as antinausea medications. Consult was placed to general surgery Dr. Muniz, his notes and recommendations reviewed. Patient progress being monitored with daily serial imaging studies -07/10/2021 patient symptoms did resolve with conservative management. 2. Previous history of breast CA ?Currently in remission following lumpectomy 3. Depression with anxiety ?Patient is on SSRI as well as alprazolam as needed 4. Class I obesity with BMI of 34.8 ?Weight loss advised 5. History of previous VTE ?Currently stable 6. Bilateral renal calculi ?With no evidence of obstruction we will continue to monitor 7. DVT prophylaxis ?Lovenox Physical Exam Narrative GENERAL: cooperative HEENT: Atraumatic; EYES; Anicteric, Normal Conjunctiva NECK; supple, normal thyroid, RESPIRATORY: Diminished to auscultation CARDIOVASCULAR: Regular S1 S2, GI: soft, normoactive bowel sounds, : No Renal angle tenderness; EXTREMITIES: No edema, no clubbing, MUSCULOSKELETAL: no muscle waisting NEURO: Awake; no lateralizing signs. SKIN: No Rash PSYCH; Flat affect Weight / BMI Weight Weight: 89 kg Body Mass Index (BMI) 34.7 ABG / Lab / Microbiology Data Result Diagrams: 07/09/21 06:00 07/09/21 06:00 D/C Instructions Discharge Diet: No restrictions Discharge Activity: Return to Normal Activity Call your doctor if you observe: Fever of 101 or Higher, Shortness of breath, Fainting spells and Chest pain Meaningful Use Info Meaningful Use Diagnoses (Choose all that apply): None applicable Discharge Plan Admission Admit Date/Time: 07/08/21 21:51 Attending Provider: Milo Lee Primary Care Provider: Nata Rea Consulting Providers: Kodi Muniz Discharge Orders/Prescriptions Prescriptions: Continued alprazolam 0.25 MG tablet 0.25 mg PO TID PRN PRN (Reason: Insomnia) RF: 0 escitalopram oxalate 10 MG tablet 10 mg PO DAILY RF: 0 Referrals / Follow Up: Nata Rea MD [Primary Care Provider] - In 1 Week Care Physician,No Primary [NON-STAFF] - Disposition Disposition (needs filled in before D/C Order can be placed): Home, Self Care Charges/Coding Visit Charges Inpatient E&M: 47272 Disch Hosp
--- NOTE | 2021-07-10 13:10 | PCM.PN.SRG ---
Subjective Subjective Patient states that she has had bowel movements but she still remains tender throughout her abdomen. Objective Data Objective Data Patient remains slightly distended she is tender to touch throughout her abdomen. There is some voluntary guarding. Vital Signs: Vital Signs Temp Pulse Resp BP Pulse Ox 97.9 F 83 18 142/82 H 95 07/10/21 07:40 07/10/21 07:40 07/10/21 07:40 07/10/21 07:40 07/10/21 07:40 Oxygen Delivery Method Room Air Weight: 196 lb 3.382 oz Body Mass Index (BMI) 34.7 Intake & Output: Intake and Output for Last 24 Hours 07/08/21 07/09/21 07/10/21 23:59 23:59 23:59 Intake Total 3000 / 3025 1729.59 / 1729.59 Output Total 100 / 100 400 / 600 800 / 800 Balance -100 / -100 2600 / 2425 929.59 / 929.59 Lab / Micro Data Result Diagrams: 07/09/21 06:00 07/09/21 06:00 Assessment & Plan Assessment/Plan (1) Partial small bowel obstruction: PLAN: Despite her opening up I think that we need to obtain a CAT scan of the abdomen and pelvis with IV and p.o. contrast.
--- NOTE | 2021-07-10 13:11 | CT_ITS ---
STUDY: CT ABDOMEN AND PELVIS WITH CONTRAST REASON FOR EXAM: Female, 71 years old. Partial small bowel obstruction -- IV AND PO RADIATION DOSAGE (If Supplied By Facility): CTDIvol = ( 21.55 ) mGy, DLP = ( 1143.36 ) mGycm TECHNIQUE: Transaxial images were obtained from the dome of the diaphragm to the symphysis pubis without oral contrast. Oral and amp; IV Gastrografin and amp; 100mL Isovue-300 was administered. Sagittal and coronal images were reconstructed. Individualized dose optimization techniques were used for this CT. COMPARISON: 07/08/2021 FINDINGS: The visualized lung bases are unremarkable. The visualized portions of the heart are within normal limits. Poorly characterized irregularity within the right breast. Normal liver. Normal gallbladder and extrahepatic biliary system. Normal spleen. Normal pancreas. Normal bilateral adrenal glands. Normal right kidney. Normal left kidney. Normal visualized stomach. Mild distention and diffuse small bowel wall thickening. Colon is fluid-filled. There are surgical clips in the region of the appendix consistent with a prior appendectomy. Increased attenuation within the mesenteric fat is nonspecific Normal abdominal aorta. Normal inferior vena cava. Normal retroperitoneum. Normal urinary bladder. Hysterectomy. 3.2 cm low-attenuation structure right pelvic sidewall series 2 image 87. Normal abdominal wall. Normal osseous structures. CT/Abdomen/Pelvis WITH Contrast IMPRESSION: Diffuse small bowel wall thickening and mesenteric stranding are nonspecific and may represent inflammatory or infectious process. Oral contrast material transits to the large bowel. No gross evidence for obstruction. Cystic structure measuring 3.2 cm in the right pelvis may represent an ovary, it appears similar to prior. Heterogeneous density within the right breast may represent scar, correlate with mammography. Electronically Signed: Hardeep Cheng MD at 16:37 EST ,
[2021-07-10 15:08] VITALS: BP 156/94; PULSE 87; RESP 18; TEMP 36.7; O2SAT 97
[2021-07-10 21:06] VITALS: BP 158/75; PULSE 83; RESP 18; TEMP 36.5; O2SAT 99
[2021-07-10] MEDS: ALPRAZolam 0.25 MG Tablet PO (21:15)
[2021-07-10] MEDS: 0.9% Saline Lock 10 ML Syringe IV (21:15)
[2021-07-10] MEDS: Escitalopram Oxalate 10 MG Tablet PO (21:15)
[2021-07-11] MEDS: 0.9% Normal Saline 1,000 ML 125 ML IV (05:27)
[2021-07-11 05:29] VITALS: BP 138/91; PULSE 79; RESP 18; TEMP 36.5; O2SAT 95
[2021-07-11 07:53] VITALS: BP 145/98; PULSE 87; RESP 18; TEMP 37
[2021-07-11] MEDS: Enoxaparin 40 MG/0.4 ML Syringe SC (09:52)
== END 2021-07-11 10:23 | disposition home or self-care (01) | DRG 390 ==
LOC: ED 21:42 → MS3 21:58
PROVIDERS: Admitting Provider Family Medicine; Emergency Provider Emergency Medicine; PCP Internal Medicine; Visit Provider Internal Medicine
DX: K56.51 Intestinal adhesions [bands], with partial obstruction (principal); M06.1 Adult-onset Still's disease; F41.9 Anxiety disorder, unspecified; F32.A Depression, unspecified; Z79.01 Long term (current) use of anticoagulants; Z79.899 Other long term (current) drug therapy; Z86.718 Personal history of other venous thrombosis and embolism; Z85.3 Personal history of malignant neoplasm of breast; E66.9 Obesity, unspecified; Z68.34 Body mass index [BMI] 34.0-34.9, adult
CPT/HCPCS: 36415; 74019; 74176; 74177; 80048; 80053; 81001; 83690; 85025; 99283; J7030; Q9967; A4216; J2405

== ENCOUNTER 2022-02-18 07:11 | Emergency (ER) | payer MEDICARE, SELFPAY ==
[2022-02-18 07:12] VITALS: BP 186/90; PULSE 88; RESP 18; TEMP 36.4; O2SAT 99; BMI 33.8
--- NOTE | 2022-02-18 07:27 | VDLE_ITS ---
Reason For Study: pain Procedure LEFT This is a venous duplex using B-mode, color FV is compressible, spontaneous, phasic, flow and spectral Doppler. competent and demonstrates normal Exam performed portable in ED. augmentation. The exam was abbreviated due to the COVID 19 POP V is compressible, spontaneous, phasic, protocol. competent and demonstrates normal The exam was diagnostic. augmentation. A preliminary report was called and/or faxed T/P Trunk is compressible. to Dr. Mustafa. PTV is compressible. LT PerV is compressible. ASV in the thigh is dilated and noncompressible. GSV is dilated and noncompressible from the ankle to the groin. SVT does extend into the CFV. CFV is partially compressible with decreased flow. DVT appears loosley attached. VL/Venous Duplex US, Unilateral Interpretation Summary Acute deep vein thrombosis is noted in the left common femoral vein. Acute superficial vein thrombosis noted in the left great saphenous and accesso ry saphenous veins Ordering Physician: Venkat Mustafa Performed By: Estevan Stapleton RVT
--- NOTE | 2022-02-18 07:28 | ED.VIS.LOWEX ---
HPI History of Present Illness Chief Complaint: Lower Extremity Injury Detail of Chief Complaint: pain, redness LLE Informant: patient Onset/Context/Timing Onset: Weeks (2) Context: Gradual Onset Timing: Continuous Quality of Pain: - (Sore) Location: LLE Current Severity: Moderate Maximum Severity: Moderate Worsened by: Palpation Relieved by: Leaving alone, ibuprofen helps a little Associated Symptoms Associated Symptoms: Negative for Parasthesia, Weakness or Loss of Funtion Narrative Narrative: About 2 weeks ago patient had spontaneous onset of locally swollen sore redness left lower leg near her ankle. She was seen as an outpatient and had a duplex ultrasound showing superficial venous thrombosis, she was advised to take ibuprofen every day which she has been doing and states this morning she has noticed it has traveled up her leg to her thigh and no longer is in her lower leg. She denies any other new symptoms such as fevers, chills, lightheadedness, syncope, chest discomfort, or dyspnea even with exertion. She has a history of a DVT and PE that were remote and she no longer is anticoagulated or takes any antiplatelets other than the ibuprofen she is taking. [facility] Medical History Adult-onset Still's disease Anxiety Bowel obstruction Breast cancer Depression Endometriosis Kidney stones Pulmonary embolism Home Medications alprazolam 0.25 mg tablet 0.25 mg PO TID PRN PRN Insomnia 08/16/14 [History Last Taken Unknown] escitalopram oxalate 10 mg tablet 10 mg PO DAILY 08/16/14 [History Last Taken Unknown] apixaban 5 mg (74 tabs) tablets in a dose pack (Eliquis DVT-PE Treat 30D Start) 5 mg PO BID #74 tabs 02/18/22 [Rx Last Taken Unknown] Allergy/AdvReac Type Severity Reaction Status Date / Time ampicillin Allergy Rash Verified 02/18/22 07:16 Surgical History H/O lumpectomy H/O: hysterectomy History of bowel resection History of colostomy reversal Social History Smoking Status: Never smoker ROS ROS ED Constitutional Constitutional ED: Denies chills or fever(s) Cardiovascular Cardiovascular: Denies chest pain, lightheadedness, palpitations, racing heartbeat or syncope Respiratory/Chest Respiratory/Chest: Denies cough, dyspnea or dyspnea on exertion Musculoskeletal Musculoskeletal: Reports extremity pain; Denies neck pain Integumentary Reports as per HPI and erythema; Denies Abrasions, rash or wounds Neurologic Neurologic: Denies paresthesias or weakness EXAM Physical Exam Const Vital Signs: 02/18/22 07:12 Temperature 97.5 F L Temperature Source Temporal Pulse Rate 88 Respiratory Rate 18 Blood Pressure 186/90 H Blood Pressure Mean 122 Pulse Ox 99 Oxygen Delivery Method Room Air Positive well nourished and well developed General Appearance ED: well developed and NAD Neck full ROM and supple Resp normal respiratory effort, no retractions and clear to auscultation bilaterally Effort and Inspection: able to speak in complete sentences Cardio regular rate, regular rhythm and no murmurs Rate: Negative for tachycardic Back/Spine normal ROM and normal to inspection Extremity full ROM Extremity Narrative: Tender mildly locally swollen erythema medial left thigh progressing posteriorly and more of a linear distribution, no abscess. No calf tenderness or any erythema at or distal to the knee. No inguinal lymphadenopathy or tenderness. No edema either lower extremity at the ankles or shins. Neuro oriented x3, no focal motor deficits, no sensory deficits noted and gait normal Sensorium / Orientation: alert Psych mental status grossly normal and thought process normal Skin no wounds Rashes: no rashes MDM MDM MDM Narrative Medical decision making narrative: I repeated a duplex ultrasound of her left lower extremity, it is positive for DVT. She will be started on apixaban and advised to follow-up. Discharge Plan Triage Chief Complaint: Lower Extremity Injury ED Provider: Venkat Mustafa Dx/Rx/DC Orders Clinical Impression: Deep vein thrombosis (DVT) of left lower extremity Instructions: DVT Dc Prescriptions: New Eliquis DVT-PE Treat 30D Start 5 mg (74 tabs) tablets,dose pack 5 mg PO BID Qty: 74 0RF No Action alprazolam 0.25 MG tablet 0.25 mg PO TID PRN PRN (Reason: Insomnia) escitalopram oxalate 10 MG tablet 10 mg PO DAILY Primary Care Provider: Nata Rea Referrals: Nata Rea MD [Primary Care Provider] - 1-2 Weeks Disposition Disposition: Home, Self Care
== END 2022-02-18 08:41 | disposition home or self-care (01) ==
LOC: ED 08:28
PROVIDERS: Emergency Provider Emergency Medicine; PCP Internal Medicine; Visit Provider Emergency Medicine
DX: I82.402 Acute embolism and thrombosis of unspecified deep veins of left lower extremity (principal); Z86.718 Personal history of other venous thrombosis and embolism; Z86.711 Personal history of pulmonary embolism
CPT/HCPCS: 93971; 99282

== ENCOUNTER 2022-03-02 18:25 | Emergency (ER) | payer MEDICARE, SELFPAY ==
[2022-03-02 18:26] VITALS: BP 97/71; PULSE 77; RESP 18; TEMP 36.6; O2SAT 97; BMI 35.2
--- NOTE | 2022-03-02 18:57 | EX.ED.DYSGE1 ---
HPI History of Present Illness Chief Complaint: Edema Informant: patient Onset/Context/Timing Onset: Today Context: Sudden Onset Timing: Continuous Quality: Swelling Location: Left upper and lower lip Worsened by: Nothing Relieved by: Nothing Narrative Narrative: Patient presents with facial swelling that began today. Patient states she was started on Eliquis for DVT approximately 1 week ago. Patient states she completed the first 5 days of 2 tablets twice daily. Patient states that yesterday she took 1 tablet twice daily. Patient states she was at work today when she noted her left upper and lower left starting to swell. Patient states her lower left was worse. Patient states she has been having some generalized itching. Patient denies any difficulty breathing or difficulty swallowing. Patient denies any fevers or chills. PFSH PFSH Medical History Adult-onset Still's disease Anxiety Bowel obstruction Breast cancer Depression Endometriosis Kidney stones Pulmonary embolism Home Medications alprazolam 0.25 mg tablet 0.25 mg PO TID PRN PRN Insomnia 08/16/14 [History Last Taken Unknown] escitalopram oxalate 10 mg tablet 10 mg PO DAILY 08/16/14 [History Last Taken Unknown] prednisone 20 mg tablet 60 mg PO DAILY #15 TABLETS 03/02/22 [Rx Last Taken Unknown] rivaroxaban 20 mg tablet (Xarelto) 20 mg PO DAILY #30 tabs 03/02/22 [Rx Last Taken Unknown] Allergy/AdvReac Type Severity Reaction Status Date / Time ampicillin Allergy Rash Verified 03/02/22 18:29 Surgical History H/O lumpectomy H/O: hysterectomy History of bowel resection History of colostomy reversal Social History Smoking Status: Never smoker ROS ROS ED Constitutional Constitutional ED: Denies chills or fever(s) Eyes Eyes: Denies blurry vision or change in vision ENT ENT ED: Denies rhinorrhea or sore throat Cardiovascular Cardiovascular: Denies chest pain or palpitations Respiratory/Chest Respiratory/Chest: Denies cough or dyspnea Gastrointestinal Gastrointestinal: Denies nausea or vomiting Genitourinary Genitourinary ED: Denies dysuria or hematuria Musculoskeletal Musculoskeletal: Reports back pain; Denies neck pain Integumentary Reports rash; Denies abscess Neurologic Neurologic: Denies headache(s) or weakness Allergic/Immunologic Allergic/Immunologic ED: Denies mouth swelling or urticaria EXAM Physical Exam Const Vital Signs: 03/02/22 18:26 03/02/22 18:30 03/02/22 19:59 Temperature 97.8 F Temperature Source Temporal Pulse Rate 77 71 Respiratory Rate 18 14 Respiratory Pattern Normal Blood Pressure 97/71 181/95 H Blood Pressure Mean 79 123 Pulse Ox 97 100 Oxygen Delivery Method Room Air Room Air 03/02/22 22:00 Temperature Temperature Source Pulse Rate 74 Respiratory Rate 18 Respiratory Pattern Blood Pressure 169/83 H Blood Pressure Mean 111 Pulse Ox 97 Oxygen Delivery Method Room Air Positive well nourished and well developed General Appearance ED: well developed and NAD HEENT Reports moist mucous membranes HEENT Narrative: There is edema of the left lower lip. There is some mild edema of the left upper lip. This does not appear to cross the midline. Oral mucosa is pink and moist. Oropharynx is clear. Airway is patent. There is no edema of the tongue. There is no sublingual edema or erythema. There is no neck swelling. There are no hives. Eyes PERRL and EOMs intact bilaterally Neck supple and no JVD Chest Wall inspection of chest normal and palpation of chest normal Resp normal respiratory effort and clear to auscultation bilaterally Cardio regular rate and regular rhythm GI normal to inspection, nondistended, normoactive bowel sounds and non-tender Palpation: soft Extremity normal to inspection General Extremety ED: Negative for edema or tenderness General Extremity: Negative for edema Neuro oriented x3, CN's II-XII intact bilaterally and no sensory deficits noted Sensorium / Orientation: alert Motor Exam: strength 5/5 throughout Psych mental status grossly normal MDM MDM MDM Narrative Medical decision making narrative: Patient was given Benadryl, Solu-Medrol, and Pepcid here. CBC was within normal limits. PT with INR and PTT were within normal limits. Comprehensive metabolic profile was within normal limits. Patient was observed here in the emergency department for 4 hours. Patient's swelling is improving. Patient feels better. Patient has no difficulty breathing or difficulty swallowing. Patient was given a prescription for prednisone. Patient was instructed to stop taking the Eliquis. Patient was given a prescription for Xarelto to take instead. Patient was instructed to follow-up with her primary care physician in 3 to 5 days. Patient understood and was agreeable with the plan. All questions were answered. Lab Data Attestation: I reviewed the patient's lab results. Labs: Laboratory Results - last 24 hr 03/02/22 03/02/22 03/02/22 19:32 19:32 19:32 WBC 8.0 RBC 4.56 Hgb 14.3 Hct 43.6 MCV 95.6 MCH 31.4 MCHC 32.8 RDW Std Deviation 47.2 H RDW Coeff of Funmi 13.2 Plt Count 267 MPV 11.1 Immature Gran % (Auto) 0.100 Neut % (Auto) 62.7 Lymph % (Auto) 24.5 [place] % (Auto) 6.6 Eos % (Auto) 5.5 H Baso % (Auto) 0.6 Absolute Neuts (auto) 5.0 Absolute Lymphs (auto) 1.96 Nucleated RBC % 0 PT 13.5 INR 1.1 APTT 31.7 Sodium 143 Potassium 3.6 Chloride 108 H Carbon Dioxide 27.0 Anion Gap 8 BUN 9 Creatinine 0.92 Estim Creat Clear Calc 43.72 Est GFR (MDRD) Af Amer 77 Est GFR (MDRD) Non-Af 64 BUN/Creatinine Ratio 9.8 L Glucose 93 Calcium 9.2 Total Bilirubin 0.40 AST 16 ALT 18 Alkaline Phosphatase 86 Total Protein 7.6 Albumin 3.7 Globulin 3.9 Albumin/Globulin Ratio 0.9 Discharge Plan Triage Chief Complaint: Edema ED Provider: Barn Sanchez Dx/Rx/DC Orders Clinical Impression: Angioedema Instructions: ED Angioedema Prescriptions: New prednisone 20 mg tablet 60 mg PO DAILY Qty: 15 0RF Xarelto 20 mg tablet 20 mg PO DAILY Qty: 30 0RF Rx Instructions: must administer with evening meal Discontinued Eliquis DVT-PE Treat 30D Start 5 mg (74 tabs) tablets,dose pack 5 mg PO BID Qty: 74 0RF No Action alprazolam 0.25 MG tablet 0.25 mg PO TID PRN PRN (Reason: Insomnia) escitalopram oxalate 10 MG tablet 10 mg PO DAILY Primary Care Provider: Nata Rea Referrals: Nata Rea MD [Primary Care Provider] - 3-5 Days Disposition Disposition: Home, Self Care
[2022-03-02] MEDS: MethylPREDNISolone 125 MG/2 ML Vial 80 MG IV (19:36)
[2022-03-02] MEDS: DiphenhydrAMINE 50 MG/ML Syringe 25 MG IV (19:36)
[2022-03-02] MEDS: Famotidine 200 MG/20 ML MDV 20 MG in 0.9% Normal Saline (Pres. free 8 ML 300 MG IV (19:37)
[2022-03-02 19:39] LABS: Absolute Lymphocyte Count 1.96 X10^3/uL (0.83-4.51); Basophil# 0.05 X10^3/uL; Basophil% 0.6 % (0-1); Eosinophil# 0.44 X10^3/uL; Eosinophils% 5.5 % (0-5); Hematocrit 43.6 % (37-47); Hemoglobin 14.3 g/dL (12.0-15.0); Lymphocyte # 1.96 X10^3/ul (0.83-4.51); Lymphocyte % 24.5 % (19-41); Mean Corp Hgb Conc 32.8 g/dL (32-36); Mean Corpuscular Hgb 31.4 pg (27.0-32.0); Mean Corpuscular Volume 95.6 fL (81-99); Mean Platelet Vol. 11.1 fl (6.2-12.0); Monocyte# 0.53 X10^3/uL; Monocyte% 6.6 % (0-10); NRBC Flagged by Analyzer 0 % (0-5); Neutrophil # 5.01 X10^3/uL (2.7-7.7); Neutrophil % 62.7 % (47-70); Platelet Count 267 K/mm3 (150-450); RBC Distribution Width CV 13.2 % (11.6-14.6); RBC Distribution Width SD 47.2 fl (35.1-43.9); Red Blood Count 4.56 M/mm3 (4.2-5.4)
[2022-03-02 19:46] LABS: International Normalized Ratio 1.1; Prothrombin Time (Protime)PT. 13.5 SECONDS (11.7-14.9)
[2022-03-02 19:47] LABS: Partial Thromboplast Time 31.7 Seconds (24.1-36.2)
[2022-03-02 19:58] LABS: ALB/GLOB Ratio 0.9 RATIO (0.9-2.4); AST(SGOT) 16 U/L (15-37); Alanine Aminotransfer ALT/SGPT 18 U/L (13-56); Albumin, Serum 3.7 g/dL (3.2-5.0); Alkaline Phosphatase 86 U/L (45-117); Anion Gap 8 (5-15); BUN 9 mg/dL (7-18); BUN/Creat Ratio 9.8 RATIO (10-20); Calcium,Total 9.2 mg/dL (8.5-10.1); Chloride 108 mmol/L (98-107); Creatinine, Serum 0.92 mg/dL (0.55-1.02); EST Glomerular Filtration Rate 64 mL/min (>60); Est Glom Filt Rate - Afr Amer 77 mL/min (>60); Estimated Creatinine Clearance 43.72 ml/min; Globulin 3.9 g/dL (2.2-4.2); Glucose 93 mg/dL (74-106); Potassium 3.6 mmol/L (3.5-5.1); Protein, Total 7.6 g/dL (6.4-8.2); Sodium Level 143 mmol/L (136-145)
[2022-03-02 19:59] VITALS: BP 181/95; PULSE 71; RESP 14; O2SAT 100
[2022-03-02 22:00] VITALS: BP 169/83; PULSE 74; RESP 18; O2SAT 97
--- NOTE | 2022-03-02 22:04 | NURSING ---
Family came to nursing desk demanding a doctor come to room due to swelling on pt face getting worse. This nurse responded due to all doctors in room with other patients. Pt swelling improved from first assessment. Swelling in lips decreased and able to close mouth. noted pt still had swelling in left side of face. Spoke with family and patient at length about concerns. VSS. CH updated.
[2022-03-02 22:56] VITALS: BP 180/83; PULSE 74; RESP 16; O2SAT 98
== END 2022-03-02 22:57 | disposition home or self-care (01) ==
PROVIDERS: Emergency Provider Emergency Medicine; PCP Internal Medicine; Visit Provider Emergency Medicine
DX: T78.3XXA Angioneurotic edema, initial encounter (principal); Z79.01 Long term (current) use of anticoagulants; Z86.711 Personal history of pulmonary embolism; X58.XXXA Exposure to other specified factors, initial encounter
CPT/HCPCS: 80053; 85025; 85610; 85730; 96374; 96375; 99284; A4216; J3490

== ENCOUNTER 2023-05-26 23:38 | Emergency (ER) | payer MEDICARE, SELFPAY ==
[2023-05-26 23:40] VITALS: BP 157/99; PULSE 72; RESP 15; TEMP 36.3; O2SAT 99; BMI 35.1
[2023-05-27] MEDS: MethylPREDNISolone 125 MG/2 ML Vial IV (00:21)
[2023-05-27] MEDS: DiphenhydrAMINE 50 MG/ML Syringe 25 MG IV (00:22)
--- NOTE | 2023-05-27 00:41 | EDS_ITS ---
HPI History of Present Illness Chief Complaint: Allergic Reaction Informant: patient and family Narrative Narrative: Had an hour prior to arrival, patient noticed spontaneous swelling of the left side of her tongue. Able to swallow. No trouble breathing. No edema anywhere else. Has some asymptomatic redness on her left forearm consistent with patches that are salmon-colored associated with stills disease that she has been having for decades off-and-on. Family states that she found out there was a in the family today. The patient is anxious type, and has had swelling in different areas randomly in the past without being on lisinopril or any other blood pressure medication, and it often times has occurred after something stressful. The last time it occurred was a month or 2 ago and it was her lips. The right was worse than the left. She was seen at another hospital and prescribed methylprednisolone and the she states that took care of it. [facility] Medical History Adult-onset Still's disease Anxiety Bowel obstruction Breast cancer Depression Endometriosis Kidney stones Pulmonary embolism Home Medications alprazolam 0.25 mg tablet 0.25 mg PO TID PRN PRN Insomnia 08/16/14 [History Last Taken Unknown] escitalopram oxalate 10 mg tablet 10 mg PO DAILY 08/16/14 [History Last Taken Unknown] rivaroxaban 20 mg tablet (Xarelto) 20 mg PO DAILY #30 tabs 03/02/22 [Rx Last Taken Unknown] methylprednisolone 32 mg tablet 32 mg PO DAILY #4 tabs 05/27/23 [Rx Last Taken Unknown] Allergy/AdvReac Type Severity Reaction Status Date / Time ampicillin Allergy Rash Verified 05/26/23 23:44 prednisone AdvReac SHAKINESS Verified 05/26/23 23:44 Surgical History H/O lumpectomy H/O: hysterectomy History of bowel resection History of colostomy reversal Social History Smoking Status: Never smoker ROS ROS ED Constitutional Constitutional ED: Denies chills or fever(s) Eyes Eyes: Denies change in vision or diplopia ENT ENT ED: Reports as per HPI and tongue swelling; Denies rhinorrhea or sore throat Cardiovascular Cardiovascular: Denies chest pain or palpitations Respiratory/Chest Respiratory/Chest: Denies cough or dyspnea Gastrointestinal Gastrointestinal: Denies abdominal pain, diarrhea, nausea or vomiting Genitourinary Genitourinary ED: Denies dysuria or hematuria Musculoskeletal Musculoskeletal: Denies back pain or neck pain Integumentary Reports rash; Denies abscess Neurologic Neurologic: Denies headache(s), paresthesias or weakness Psychiatric Psychiatric: Denies anxiety or suicidal thoughts EXAM Physical Exam Const Vital Signs: 05/26/23 23:40 05/27/23 01:28 Temperature 97.3 F L Temperature Source Temporal Pulse Rate 72 79 Respiratory Rate 15 15 Blood Pressure 157/99 H 153/79 H Blood Pressure Mean 118 103 Pulse Ox 99 96 Oxygen Delivery Method Room Air Room Air Positive well nourished and well developed Constitutional Narrative: No distress speaking in full sentences, sitting comfortably General Appearance ED: well developed and NAD HEENT Reports moist mucous membranes HEENT Narrative: Mild edema of the left side of the tongue. Otherwise normal-appearing. Able to visualize posterior pharynx which is normal-appearing. No stridor. Normal voice. normocephalic and atraumatic Eyes PERRL and EOMs intact bilaterally Neck full ROM and supple Resp normal respiratory effort and clear to auscultation bilaterally Cardio regular rate, regular rhythm and no murmurs Rate: Negative for tachycardic Back/Spine no CVA tenderness General Back: other FROM Extremity normal to inspection General Extremety ED: Negative for edema, pulses abnormal or tenderness General Extremity: Negative for edema or pulses abnormal Neuro oriented x3, CN's II-XII intact bilaterally and no sensory deficits noted Sensorium / Orientation: awake and alert Motor Exam: strength 5/5 throughout Skin no wounds Skin Narrative: Large patch of nontender nonindurated blanching erythema left proximal medial forearm. No lymphangitis. No palpable cords. MDM MDM MDM Narrative Medical decision making narrative: MD patient is not on any medications that should be causing this. She states she followed up with her doctor or after this episode a couple months ago and had normal labs done as an outpatient. 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 She does not know of any family members that of have this that she can recall. She had very few episodes throughout her life of this. She is well-appearing right now and not in any distress, but certainly for progressive would be concerning and she presents at midnight, so I am apprehensive about just giving her prescription and sending her home to sleep. I discussed this with her which is why I recommended observing her at least in the ER and treating empirically with steroids and Benadryl, to which she and family are amenable. After 2 hours of observation to her room in the ER, the patient is feeling better. She has objective less edema of the left side of her tongue. She has developed no other symptoms. We discussed admission which was considered, especially given the location of her angioedema and the time of night. She declines and wants to go home. She understands the risks, I am okay with this since she does have objective improvement, we discussed reasons to return, since it seems to be responding to Benadryl/steroids, she is getting a prescription for steroids, she is requesting methylprednisolone since she tolerated this better than prednisone in the past. Discharge Plan Triage Chief Complaint: Allergic Reaction ED Provider: Venkat Mustafa Dx/Rx/DC Orders Clinical Impression: Angioedema of tongue Instructions: ED Angioedema Prescriptions: New methylprednisolone 32 mg tablet 32 mg PO DAILY Qty: 4 0RF Continued alprazolam 0.25 MG tablet 0.25 mg PO TID PRN PRN (Reason: Insomnia) escitalopram oxalate 10 MG tablet 10 mg PO DAILY Xarelto 20 mg tablet 20 mg PO DAILY Qty: 30 0RF Rx Instructions: must administer with evening meal Discontinued prednisone 20 mg tablet 60 mg PO DAILY Qty: 15 0RF Primary Care Provider: Nata Rea Referrals: Nata Rea MD [Primary Care Provider] - 5-7 Days (if tongue swelling worsening or trouble breathing/swallowing, return to ER immediately) Activity Restrictions/Additional Instructions: Since you were given an initial dose of IV steroids in the ER, you may start the prescription night of 05/27 or morning of 05/28, taking the tablets once daily as prescribed until finished. If you have any worsening of symptoms tonight, you may take Benadryl 50 mg by mouth, if you do not feel like it is helping or if you are getting worse to the point of trouble breathing or swallowing, return to the ER immediately. Disposition Disposition: Home, Self Care
[2023-05-27 01:28] VITALS: BP 153/79; PULSE 79; RESP 15; O2SAT 96
[2023-05-27 01:48] VITALS: PULSE 89; RESP 18; O2SAT 97
== END 2023-05-27 01:48 | disposition home or self-care (01) ==
PROVIDERS: Emergency Provider Emergency Medicine; PCP Internal Medicine; Visit Provider Emergency Medicine
DX: T78.3XXA Angioneurotic edema, initial encounter (principal); Z86.711 Personal history of pulmonary embolism; X58.XXXA Exposure to other specified factors, initial encounter
CPT/HCPCS: 96374; 96375; 99283; A4216

== ENCOUNTER 2023-08-28 16:42 | Emergency (ER) | payer MEDICARE, SELFPAY ==
[2023-08-28 16:43] VITALS: BP 151/83; PULSE 88; RESP 14; TEMP 35.3; O2SAT 98
--- NOTE | 2023-08-28 17:59 | ED.RN ---
I'm gonna go to [place] there's no reason I should wait this long RN explained extremely busy unit and wait times are based on patient severity. Pt has left department.
== END 2023-08-28 17:55 | disposition left against medical advice (07) ==
LOC: ED 18:05
PROVIDERS: PCP Internal Medicine
DX: Z53.21 Procedure and treatment not carried out due to patient leaving prior to being seen by health care provider (principal)
CPT/HCPCS: 99282

== ENCOUNTER 2025-04-04 10:35 | Emergency (ER) | payer MEDICARE, SELFPAY ==
[2025-04-04 10:36] VITALS: BP 178/99; PULSE 85; RESP 18; TEMP 36.9; O2SAT 99
--- NOTE | 2025-04-04 10:57 | VDLE_ITS ---
Reason For Study Reason For Study: Palpable cord RIGHT LEFT CFV is compressible, spontaneous, phasic, competent Acute superficial vein thrombosis is noted in the left and demonstrates normal augmentation. GSV from groin to mid calf. It is dilated and Procedure NONCOMPRESSIBLE. This is a venous duplex using B-mode, color flow and Acute deep vein thrombosis is noted in the left CFV. spectral Doppler. It is partially NONCOMPRESSIBLE. Thrombus is extending Exam performed in department. approximately 2.53 cm from GSV. A preliminary report was called and/or faxed to [facility] is compressible, spontaneous, phasic, competent and Pepper RN. demonstrates normal augmentation. POP V is compressible, spontaneous, phasic, competent and demonstrates normal augmentation. T/P Trunk is compressible. PTV is compressible. LT PerV is compressible. VL/Venous Duplex US, Unilateral Interpretation Summary Acute deep vein thrombosis noted in the left common femoral vein. Acute superficial vein thrombosis noted in the left great saphenous vein Ordering Physician: Teodoro Daley Referring Physician: Nata Rea Performed By: Jenn Naranjo RVT
[2025-04-04 11:06] VITALS: BMI 37.0
[2025-04-04 11:18] LABS: Hematocrit 39.9 % (37-47); Hemoglobin 13.6 g/dL (12.0-15.0); Immature Granulocytes Count 0.040 X10^3/uL (0.0-0.0); Mean Corp Hgb Conc 34.1 g/dL (32-36); Mean Corpuscular Volume 92.8 fL (81-99); Mean Platelet Vol. 11.9 fl (6.2-12.0); NRBC Flagged by Analyzer 0 % (0-5); Platelet Count 230 K/mm3 (150-450); RBC Distribution Width CV 13.1 % (11.6-14.6); RBC Distribution Width SD 44.3 fl (35.1-43.9); Red Blood Count 4.30 M/mm3 (4.2-5.4); White Blood Count 8.0 K/mm3 (4.4-11.0)
[2025-04-04 12:23] LABS: Anion Gap 9 (5-15); BUN 7 mg/dL (4-19); BUN/Creat Ratio 7.8 RATIO (10-20); Calcium,Total 8.9 mg/dL (7.6-11.0); Carbon Dioxide 24.5 mmol/L (21.0-32.0); Chloride 109 mmol/L (98-108); Estimated Creatinine Clearance 56.35 ml/min (50-250); Glucose 99 mg/dL (70-99); Potassium 3.8 mmol/L (3.3-5.1)
--- NOTE | 2025-04-04 12:41 | EX.ED.DYSGE1 ---
HPI History of Present Illness Chief Complaint: Lower Extremity Injury Detail of Chief Complaint: Pain, redness medial left lower extremity Onset/Context/Timing Onset: Days Context: Sudden Onset Timing: Continuous Quality: Area involvement along the distribution of the greater saphenous vein Location: Left lower extremity Current Severity: Mild Maximum Severity: Moderate Worsened by: Increased pain with palpation Relieved by: Nothing Associated Symptoms Associated Symptoms: No fever, chills night sweats. No dyspnea, MICHAEL or chest pain of any type i Narrative Narrative: Patient is a 75-year-old woman. She has history of depression and bronchitis. She is on a baby aspirin. She also has history anxiety based on medication. She presents because of redness pain distribution of the greater saphenous vein on the left. Patient has no symptoms suggestive of PE. She has no neurovascular compromise of that extremity. Prior similar symptoms: No Recent Illness/Hospitalization: No PFSH PFSH Medical History Vaginal candidiasis Acute bronchitis, unspecified Kidney stones Pulmonary embolism Adult-onset Still's disease Depression Anxiety Breast cancer Endometriosis Bowel obstruction Home Medications ?Medication ?Instructions ?Recorded ?Last Taken ?Type alprazolam 0.25 mg tablet 0.25 mg PO TID PRN PRN Insomnia 08/16/14 Unknown History escitalopram oxalate 10 mg tablet 10 mg PO DAILY 08/16/14 Unknown History aspirin 81 mg tablet,delayed 81 mg PO DAILY 08/28/23 Unknown History release (Adult Low Dose Aspirin) doxycycline monohydrate 100 mg 100 mg PO BID #20 caps 01/03/25 Unknown Rx capsule fluconazole 200 mg tablet 200 mg PO DAILY #1 TAB 01/03/25 Unknown Rx apixaban 5 mg (74 tabs) tablets in See Rx Instructions .Route 04/04/25 Unknown Rx a dose pack (Eliquis DVT-PE Treat .COMPLEX #74 tabs 30D Start) Allergy/AdvReac Type Severity Reaction Status Date / Time ampicillin Allergy Rash Verified 04/04/25 10:36 prednisone AdvReac SHAKINESS Verified 04/04/25 10:36 Surgical History H/O lumpectomy History of bowel resection History of colostomy reversal H/O: hysterectomy Social History household members: family housing: house Smoking Status: Never smoker ROS ROS ED Cardiovascular Cardiovascular: Denies chest pain, orthopnea, palpitations, paroxysmal nocturnal dyspnea or racing heartbeat Respiratory/Chest Respiratory/Chest: Denies cough, dyspnea, dyspnea on exertion, orthopnea or paroxysmal nocturnal dyspnea Neurologic Neurologic: Denies paresthesias or weakness Hematologic/Lymphatic Hematologic/Lymphatic: Denies easy bleeding, easy bruising or lymphadenopathy EXAM Physical Exam Const Vital Signs: 04/04/25 10:36 Temperature 98.4 F Temperature Source Oral Pulse Rate 85 Respiratory Rate 18 Blood Pressure 178/99 H Blood Pressure Mean 125 Pulse Ox 99 Oxygen Delivery Method Room Air Positive well nourished and well developed Constitutional Narrative: Blood pressure is elevated. BMI is 37.1 General Appearance ED: well developed and NAD HEENT Reports moist mucous membranes HEENT Narrative: HEENT exam is unremarkable, grossly Eyes PERRL and EOMs intact bilaterally General Eye ED: Negative for pale conjunctiva or scleral icterus Resp normal respiratory effort and clear to auscultation bilaterally Cardio regular rate, regular rhythm, S1 normal heart sound, S2 normal heart sound and no murmurs Extremity Negative for normal to inspection Extremity Narrative: Patient has palpable cord along the distribution of the left greater saphenous vein from the calf to the groin area. There is some shotty inguinal lymph nodes noted on the left. Neuro oriented x3 and CN's II-XII intact bilaterally Sensorium / Orientation: alert Psych mental status grossly normal Skin Skin Narrative: Evidence of superficial phlebitis involving the greater saphenous vein. MDM MDM MDM Narrative Medical decision making narrative: Clinically patient has a clot involving the greater saphenous vein on the left. Concern is that it is within the junction of the superficial femoral vein. If within 10 cm she will need to be anticoagulated. Therefore we will obtain a venous duplex study. Will obtain blood work to assess renal function since this would potentially affect what medication she can be treated with and the dose. Lab Data Attestation: I reviewed the patient's lab results. Lab results narrative: CBC is unremarkable. Basic metabolic panel is unremarkable. Labs: Laboratory Results - last 24 hr 04/04/25 11:12 WBC 8.0 RBC 4.30 Hgb 13.6 Hct 39.9 MCV 92.8 MCH 31.6 MCHC 34.1 RDW Std Deviation 44.3 H RDW Coeff of Funmi 13.1 Plt Count 230 MPV 11.9 Immature Gran % (Auto) 0.500 Neut % (Auto) 72.5 H Lymph % (Auto) 14.8 L [place] % (Auto) 5.3 Eos % (Auto) 6.3 H Baso % (Auto) 0.6 Absolute Neuts (auto) 5.8 Absolute Lymphs (auto) 1.18 Nucleated RBC % 0 Sodium 143 Potassium 3.8 Chloride 109 H Carbon Dioxide 24.5 Anion Gap 9 BUN 7 Creatinine 0.91 Estim Creat Clear Calc 56.35 Est GFR (MDRD) Non-Af 66 BUN/Creatinine Ratio 7.8 L Glucose 99 Calcium 8.9 Treatment and Re-Evaluation :: Patient has a clot left greater saphenous vein and is within 2 cm of the origin of the superficial femoral vein on the left. In light of this we will anticoagulate. Patient was explained risk benefits of Coumadin versus Eliquis versus Xarelto. After explaining her risk benefits and differences between the different anticoagulants patient chose Eliquis. She was started on Eliquis 10 mg and given a starter pack prescription. She was instructed follow-up with her doctor since she will need to be on the medicine for 3 to 6 months. Discharge Plan Triage Chief Complaint: Lower Extremity Injury ED Provider: Teodoro Daley Dx/Rx/DC Orders Clinical Impression: Acute deep vein thrombosis (DVT) of left lower extremity, Superficial thrombophlebitis of great saphenous vein, Elevated blood pressure reading without diagnosis of hypertension Instructions: DVT Dc, ED Hypertension, To Be Confirmed Prescriptions: New Eliquis DVT-PE Treat 30D Start 5 mg (74 tabs) Tablets,Dose Pack See Rx Instructions .ROUTE .COMPLEX Qty: 74 0RF Rx Instructions: orally per package directions No Action doxycycline monohydrate 100 mg capsule 100 mg PO BID Qty: 20 0RF fluconazole 200 mg tablet 200 mg PO DAILY Qty: 1 0RF Rx Instructions: please remind pt to NOT take Alprazolam while on this medication alprazolam 0.25 MG tablet 0.25 mg PO TID PRN PRN (Reason: Insomnia) escitalopram oxalate 10 MG tablet 10 mg PO DAILY aspirin [Adult Low Dose Aspirin] 81 mg tablet,delayed release (DR/EC) 81 mg PO DAILY Primary Care Provider: Nata Rea Referrals: Nata Rea MD [Primary Care Provider, Internal Medicine] - 1-2 Weeks Activity Restrictions/Additional Instructions: You will need to follow-up with Dr. Argueta for additional prescription of Eliquis. You also need to have your blood pressure checked since it was elevated in the emergency department. Print Language: Austrian Disposition Disposition: Home, Self Care
[2025-04-04 12:48] VITALS: BP 134/78; PULSE 64; RESP 18; TEMP 36.6; O2SAT 99
[2025-04-04] MEDS: APIXABAN 5 MG TABLET 10 MG PO (12:58)
== END 2025-04-04 13:02 | disposition home or self-care (01) ==
PROVIDERS: Emergency Provider Emergency Medicine; PCP Internal Medicine; Visit Provider Emergency Medicine
DX: I82.812 Embolism and thrombosis of superficial veins of left lower extremity (principal); Z93.3 Colostomy status; I82.492 Acute embolism and thrombosis of other specified deep vein of left lower extremity; Z79.82 Long term (current) use of aspirin; R03.0 Elevated blood-pressure reading, without diagnosis of hypertension; F41.9 Anxiety disorder, unspecified; Z86.711 Personal history of pulmonary embolism; Z85.3 Personal history of malignant neoplasm of breast; F32.A Depression, unspecified; Z79.899 Other long term (current) drug therapy; Z79.01 Long term (current) use of anticoagulants; Z90.710 Acquired absence of both cervix and uterus
CPT/HCPCS: 99283; 80048; 85025; 93971; A4216

== ENCOUNTER 2025-04-07 | Inpatient (IN) | payer MEDICARE, SELFPAY ==
[2025-04-07] VITALS (15 sets, daily range): BP systolic 117–215; BP diastolic 64–103; PULSE 61–94; RESP 13–21; TEMP 36.6–36.8; O2SAT 96–100; BMI 35.1; BMI 35.2
--- NOTE | 2025-04-07 00:35 | EKG12_ITS ---
Test Reason : DYSRHYTHMIA Blood Pressure : */* mmHG Vent. Rate : 62 BPM Atrial Rate : 62 BPM P-R Int : 196 ms QRS Dur : 74 ms QT Int : 450 ms P-R-T Axes : 49 5 61 degrees QTcB Int : 456 ms Normal sinus rhythm Normal ECG Confirmed by ROSELIA JACQUES ([id number]), news editor ANTONIETA GONZALES ([id number]) on 04/10/2025 6:32:12 AM Referred By: Confirmed By: ROSELIA JACQUES
--- NOTE | 2025-04-07 00:37 | ED.VIS.STROK ---
HPI History of Present Illness Chief Complaint: Dizziness Informant: patient and family Narrative Narrative: Patient is a 75-year-old female with a history of DVT, anxiety, and cataract surgery, presenting with dizziness and confusion. Patient is accompanied by her grandson, who is supplementing history. - Started Eliquis yesterday for a blood clot in her leg. - Reports onset of dizziness and confusion today around [id number] after taking Eliquis. However, patient keeps saying that she first had the symptoms yesterday after starting the Eliquis; was seen in ER around noon yesterday and presents just after midnight the next day/night. - Describes dizziness as a spinning sensation, particularly noticeable after taking the medication; fell to her knees due to dizziness when getting up from the restroom. - Dizziness is continuous, worsens with head movement, and persists even when lying down. - Denies diplopia, blurry vision, unilateral numbness or weakness, earache, tinnitus, changes in hearing, headaches, emesis, chest pain, dyspnea, or syncope. - No recent URI symptoms. - Grandson reports confusion today, noting she repeatedly asked questions and seemed disoriented; denies prior confusion. - Takes Xanax and Lexapro for anxiety, as well as 81 mg aspirin at night. [facility] Medical History Vaginal candidiasis Acute bronchitis, unspecified Kidney stones Pulmonary embolism Adult-onset Still's disease Depression Anxiety Breast cancer Endometriosis Bowel obstruction Home Medications ?Medication ?Instructions ?Recorded ?Last Taken ?Type alprazolam 0.25 mg tablet 0.25 mg PO TID PRN PRN Insomnia 08/16/14 Unknown History escitalopram oxalate 10 mg tablet 10 mg PO DAILY 08/16/14 Unknown History apixaban 5 mg (74 tabs) tablets in See Rx Instructions .Route 04/04/25 Unknown Rx a dose pack (Eliquis DVT-PE Treat .COMPLEX #74 tabs 30D Start) Allergy/AdvReac Type Severity Reaction Status Date / Time ampicillin Allergy Rash Verified 04/07/25 00:01 prednisone AdvReac SHAKINESS Verified 04/07/25 00:01 Surgical History H/O lumpectomy History of bowel resection History of colostomy reversal H/O: hysterectomy Social History household members: family housing: house Smoking Status: Never smoker ROS ROS ED Constitutional Constitutional ED: Denies chills or fever(s) Eyes Eyes: Denies change in vision or diplopia ENT ENT ED: Reports vertigo; Denies ear pain, rhinorrhea or sore throat Cardiovascular Cardiovascular: Denies chest pain or palpitations Respiratory/Chest Respiratory/Chest: Denies cough or dyspnea Gastrointestinal Gastrointestinal: Denies abdominal pain, diarrhea, nausea or vomiting Genitourinary Genitourinary ED: Denies dysuria or hematuria Musculoskeletal Musculoskeletal: Denies back pain or neck pain Integumentary Denies abscess or rash Neurologic Neurologic: Reports as per HPI, abnormal gait and confusion; Denies headache(s), paresthesias or weakness Psychiatric Psychiatric: Denies suicidal thoughts EXAM Physical Exam Const Vital Signs: 04/07/25 00:00 04/07/25 00:18 04/07/25 00:30 Temperature 98.3 F Temperature Source Oral Pulse Rate 68 62 61 Respiratory Rate 18 13 16 Blood Pressure 183/84 H Blood Pressure Mean 117 Pulse Ox 100 100 99 Oxygen Delivery Method Room Air 04/07/25 00:45 04/07/25 01:00 04/07/25 01:19 Temperature Temperature Source Pulse Rate 65 66 94 Respiratory Rate 15 13 21 H Blood Pressure Blood Pressure Mean Pulse Ox 100 99 Oxygen Delivery Method 04/07/25 02:00 04/07/25 02:28 04/07/25 02:29 Temperature Temperature Source Pulse Rate 69 66 Respiratory Rate 16 14 Blood Pressure 211/99 H 215/103 H Blood Pressure Mean 136 140 Pulse Ox 100 100 Oxygen Delivery Method Room Air Room Air Room Air 04/07/25 02:42 Temperature Temperature Source Pulse Rate 65 Respiratory Rate 15 Blood Pressure 214/97 H Blood Pressure Mean 136 Pulse Ox 100 Oxygen Delivery Method Positive well nourished and well developed General Appearance ED: well developed and NAD HEENT Reports TM's clear and moist mucous membranes normocephalic and atraumatic Tympanic Membrane ED: Yes TM's clear Eyes PERRL and EOMs intact bilaterally Eyes Narrative: Horizontal nystagmus to the right, no direction changing nystagmus Neck full ROM and supple Resp normal respiratory effort and clear to auscultation bilaterally Cardio regular rate, regular rhythm and no murmurs GI non-tender and non-distended Auscultation: normoactive bowel sounds Palpation: soft Back/Spine no CVA tenderness General Back: other FROM Extremity normal to inspection General Extremety ED: Negative for edema, pulses abnormal or tenderness General Extremity: Negative for edema or pulses abnormal Neuro oriented x3, CN's II-XII intact bilaterally and no sensory deficits noted Neuro Narrative: Some occasional mild expressive aphasia no dysarthria. No dysmetria. Normal [id number] and [id number] bilaterally. Ana Coma Scale: document GCS findings Spontaneous Obeys Commands Oriented 15 Sensorium / Orientation: awake and alert Motor Exam: strength 5/5 throughout Skin no rashes or lesions noted and no wounds MDM MDM MDM Narrative Medical decision making narrative: The patient's blood pressure is elevated in the 180s, and with her dizziness, I am concerned this could be a central etiology. She is very concerned this could be a side effect of Eliquis, but my suspicion is that it is not. The last known well is unclear. The thinks it was less than 24 hours ago, and the patient thinks it was more than 24 hours ago. However, she is a bit aphasic and disoriented, so the history is somewhat limited. She is not having a headache suggestive of intracranial hemorrhage. I believe she deserves a stroke workup, but I do not think a stroke alert is indicated, since we are unsure of the last known well and she is outside of the 4.5-hour window, making her not a thrombolytic candidate. A stroke workup was obtained, and we monitored her blood pressure closely. It went up to 214/101. Labetalol is not indicated at this level, but it would be if it increases further, so we are keeping a close eye on it. Her labs are unremarkable, and her urinalysis is normal. The patient's EKG is normal, showing sinus rhythm. Her plain CT of the head, by my interpretation, is normal, and the CTA does not appear to show any LVO. However, according to radiology, she has an attenuated right STREET [employer] with moderately stenotic plaque, which may be causing her symptoms. I discussed these findings, as well as her symptoms and their timing, with stroke neurology (Dr. Gracia at [facility]). She states that given the situation and the absence of LVO, the patient does not need to be transferred to [facility] for a perfusion scan and evaluation for intervention. She recommends that we keep the patient here for further workup, hold the morning apixaban dose for now, and she will consult. I discussed admission with the hospitalist. Lab Data Attestation: I reviewed the patient's lab results. Labs: Laboratory Results - last 24 hr 04/07/25 04/07/25 00:15 01:20 WBC 8.5 RBC 4.44 Hgb 13.8 Hct 40.6 MCV 91.4 MCH 31.1 MCHC 34.0 RDW Std Deviation 44.1 H RDW Coeff of Funmi 13.1 Plt Count 273 MPV 11.9 Immature Gran % (Auto) 0.200 Neut % (Auto) 59.7 Lymph % (Auto) 25.2 Dare % (Auto) 6.5 Eos % (Auto) 7.8 H Baso % (Auto) 0.6 Absolute Neuts (auto) 5.1 Absolute Lymphs (auto) 2.13 Nucleated RBC % 0 Sodium 142 Potassium 3.8 Chloride 105 Carbon Dioxide 26.3 Anion Gap 10 BUN 9 Creatinine 0.86 Estim Creat Clear Calc 57.91 Est GFR (MDRD) Non-Af 70 BUN/Creatinine Ratio 10.1 Glucose 124 H Calcium 8.8 Total Bilirubin 0.31 AST 26 ALT 9 Alkaline Phosphatase 88 Total Protein 6.9 Albumin 3.9 Globulin 3.1 Albumin/Globulin Ratio 1.3 Urine Color Yellow Urine Clarity Clear Urine pH 7.0 Ur Specific [place] 1.010 Urine Protein Negative Urine Glucose (UA) Normal Urine Ketones Negative Urine Occult Blood Negative Urine Nitrite Negative Urine Bilirubin Negative Urine Urobilinogen Normal Ur Leukocyte Esterase Negative Urine RBC 0 SEEN Urine WBC 0 SEEN Ur Squamous Epith Cells 0-5 SEEN Urine Bacteria RARE Urine Mucus 0 SEEN Radiography Diagnostic Testing: Clinical Impression(s) from Imaging Studies Brain CT 04/07/25 01:00 IMPRESSION: No intracerebral or extra axial hemorrhage. No acute cerebrovascular insult. If clinical symptoms persist, further evaluation with MRI may be considered as clinically warranted. Bilateral cerebral mild microvascular ischemic changes. [id number]Ne[facility] 04/07/25 01:00 IMPRESSION: Relatively attenuated right posterior cerebral artery showing multifocal mild and moderately stenotic plaques. Patent rest of the intra and extra-cranial carotid and vertebral arteries as detailed. No occlusion, aneurysmal dilatation or dissecting intimal flaps. 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 Level of Consciousness: 0 - Alert; keenly responsive 1b. LOC Questions: 0 - Answers BOTH questions correctly 1c. LOC Commands: 0 - Performs BOTH tasks correctly 2. Best Gaze: 0 - Normal 3. Visual: 0 - No visual loss 4. Facial Palsy: 0 - Normal symmetrical movements 5a. Left Arm: 0 - No drift; arm holds 90 (or 45) degrees for full 10 seconds 5b. Right Arm: 0 - No drift; arm holds 90 (or 45) degrees for full 10 seconds 6a. Left Le - No drift; leg holds 30-degree position for full 5 seconds 6b. Right Le - No drift; leg holds 30-degree position for full 5 seconds 7. Limb Ataxia: 0 - Absent 8. Sensory: 0 - Normal; no sensory loss 9. Best Language: 1 - Sqxf-[id number] aphasia; 10. Dysarthria: 0 - Normal 11. Extinction and Inattention: 0 - No abnormality Total: 1 Stroke Questions Stroke Team Activated: No (Due to unclear nature of the timing) IV Thrombolytic Administered: No (Timing unclear but definitely outside of 4.5 hours)
[2025-04-07 00:47] LABS: Hematocrit 40.6 % (37-47); Hemoglobin 13.8 g/dL (12.0-15.0); Immature Granulocytes Count 0.020 X10^3/uL (0.0-0.0); Mean Corp Hgb Conc 34.0 g/dL (32-36); Mean Corpuscular Volume 91.4 fL (81-99); Mean Platelet Vol. 11.9 fl (6.2-12.0); NRBC Flagged by Analyzer 0 % (0-5); Platelet Count 273 K/mm3 (150-450); RBC Distribution Width CV 13.1 % (11.6-14.6); RBC Distribution Width SD 44.1 fl (35.1-43.9); Red Blood Count 4.44 M/mm3 (4.2-5.4); White Blood Count 8.5 K/mm3 (4.4-11.0)
--- OUTSIDE RECORDS SUMMARY | 2025-04-07 00:55 | XMS RPT_ITS | CCD ---
Author Organization 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 Jennifer Santos Primary Care Provider Dr. Bran Alston Attending Provider Dr. 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 Jennifer Santos MD Primary Care Provider Dr. Jennifer Santos MD Referring Provider Ki Schultz Attending Provider Ki Schultz Attending Unavailable Jennifer Santos Primary Care Unavailable Jennifer Santos Referring Unavailable Bran Alston Attending Jennifer Cardenas Primary Care Unavailable Jennifer Santos Primary Care Unavailable Edi Teodoro Attending Unavailable Allergies Allergy Classification Reported Allergen(s) Allergy Type Date of Onset Reaction(s) Facility (20 sources) Ampicillin; Translations: [ampicillin] Drug Allergy 6 Rash, Itching [facility] (20 sources) apixaban; Translations: [APIXABAN] Drug Allergy 2 Swelling, Anaphylaxis [facility] Work Phone: (20 sources) rivaroxaban; Translations: [RIVAROXABAN] Drug Allergy 2 Swelling [facility] Work Phone: (5 sources) predniSONE; Translations: [prednisone] Drug Allergy 3 [facility] (1 source) Ampicillin Drug Allergy 5 [facility] (1 source) predniSONE Drug Allergy 5 [facility] Medications Current Medications Medication Drug Class(es) Dates Sig (Normalized) Sig (Original) ALPRAZolam 0.25 mg oral tablet (20 sources) Benzodiazepine Start: 09-27-2015 take 1 tablet by mouth once daily ALPRAZolam (XANAX) 0.25 mg tablet Take 1 tablet by mouth once daily. 09/27/2015 Active Start: 08-16-2014 [facility] needed Alprazolam 0.25 MG tablet Active 0.25 mg PO 3 TIMES DAILY NEEDED as needed for Insomnia August 16, 2014 1:00am Comment on above: Take 1 tablet by [facility] once daily. aspirin 81 mg delayed release oral tablet (20 sources) Platelet Aggregation Inhibitor, Nonsteroidal Anti-inflammatory Drug Start: 08-28-2023 Aspirin (Adult Low Dose Aspirin) 81 mg tablet,delayed release (DR/EC) Active 81 mg PO DAILY August 28, 2023 12:00am take 81 mg by mouth once daily a spirin (ASPIR-81 ORAL) Take 81 mg by mouth once daily. Active End: 07-29-2021 aspirin, enteric coated (ASP IRIN, ENTERIC COATED) 81 mg EC tablet Take 81 mg by mouth as needed. 0 07/29/2021 Discontinued Comment on above: Take 81 mg by mouth as needed. Take 81 mg by mouth once daily. dabigatran etexilate 150 mg oral capsule (15 sources) Start: 03-17-20 End: 05-21-20 take 1 capsule by mouth twice daily Pradaxa 150 mg oral capsule TAKE 1 CAPSULE BY MOUTH TWICE DAILY Start Date: 05/07/23 Status: Ordered Comment on above: Take 1 capsule by mo [facility] twice daily. doxycycline hyclate 100 mg oral capsule (3 sources) Tetracycline-class Drug Start: 11-17-19 End: 11-27-19 take 1 capsule by mouth twice daily doxycycline hyclate (VIBRAMYCIN) 100 mg capsule Indications: Sinobronchitis Take 1 capsule (100 mg) by mouth two times a day for 10 days. 20 capsule 0 11/17/2023 11/27/2023 Active escitalopram 10 mg oral tablet (20 sources) Serotonin Reuptake Inhibitor Start: 08-17-19 take 1 tablet by mouth once daily Escitalopram Oxalate 10 MG tablet Active 10 mg PO DAILY August 16, 2014 1:00am Comment on above: Take 10 mg by mouth once daily. fexofenadine hydrochloride 180 mg oral tablet (2 sources) Histamine-1 Receptor Antagonist Start: 03-17-20 End: 04-16-20 take 1 tablet by mouth once daily fexofenadine (TRAVIS) 180 mg tablet Indications: Allergy to antithrombotic medication Take 1 tablet by mouth once daily. 30 tablet 0 03/17/2022 04/16/2022 Active Comment on above: Take 1 tablet by [facility] once daily. fluconazole 150 mg oral tablet (3 sources) Azole Antifungal Start: 05-11-20 End: 05-12-20 take 1 tablet by mouth once daily fluconazole (DIFLUCAN) 150 mg tablet Take 1 tablet by mouth once daily for 1 day. 1 tablet 05/11/2024 05/12/2024 Active Start: 05-07-2023 fluconazole 15 0 mg oral tablet TAKE 1 TABLET BY MOUTH EVERY 3 DAYS for 2 (TWO) doses Start Date: 05/07/23 Status: Ordered loratadine 10 mg oral tablet (1 source) Start: 05-21-2023 End: 06-20-2023 take 1 tablet by mouth once daily loratadine (CLARITIN) 10 mg tablet Indications: Angioedema of lips, subsequent encounter Take 1 tablet by mouth once daily. 0 05/21/2023 06/20/2023 Active Comment on above: Take 1 tablet by bossman once daily. mupirocin 0.02 mg/mg topical ointment (1 source) RNA Synthetase Inhibitor Antibacterial Start: 12-13-2021 End: 12-18-2021 mupirocin (BACTROBAN) 2 % ointment Apply to affected area three times daily for 5 days. 30 g 0 12/13/2021 12/18/2021 Active Comment on above: Apply to affected ar ea three times daily for 5 days. nitrofurantoin, macrocrystals 25 mg / nitrofurantoin, monohydrate 75 mg oral capsule (2 sources) Nitrofuran Antibacterial Start: 05-10-2024 End: 05-15-2024 take 1 capsule by mouth twice daily at mealtime nitrofurantoin monohydrate and macrocrystal (MACROBID) 100 mg capsule Take 1 capsule by mouth two times a day with meals for 5 days. 10 capsule 05/10/2024 05/15/2024 Active nystatin 100 unt/mg / triamcinolone acetonide 0.001 mg/mg topical ointment (4 sources) Polyene Antifungal, Corticosteroid Start: 05-10-2024 End: 05-17-2024 nystatin-triamcinol one (MYCOLOG) ointment Apply sparingly to perineum twice daily for irritation/infectio n. 30 g 05/10/2024 05/17/2024 Active Start: 10-21-2023 End: 10-28-2023 nystatin-triamcinolone (MYCO LOG) ointment Apply sparingly to perineum twice daily for irritation/infection. 30 g 0 10/21/2023 10/28/2023 Active predniSONE 20 mg oral tablet (7 sources) Start: 11-17-2023 End: 11-21-2023 take 2 tablets by mouth once daily at mealtime predniSONE (DELTASONE) 20 mg tablet Indications: Sinobronchitis Take 2 tablets by mouth once daily for 4 days. Take daily with food. 8 tablet 0 11/17/2023 11/21/2023 Active Start: 03-02-2022 End: 05-27-2023 take 3 tablets by mouth once daily Prednisone 20 mg tablet Discontinued 60 mg PO DAILY March 02, 2022 12:00am May 27, 2023 2:36am Start: 03-02-2022 End: 05-27-2023 take 60 mg by mouth once daily Prednisone Discontinued 60 MG PO DAILY March 02, 2022 12:00am May 27, 2023 2:36am terconazole 4 mg/ml vaginal cream (1 source) Azole Antifungal Start: 01-25-2022 End: 02-01-2022 terconazole (TERAZOL 7) 0.4 % vaginal cream Use 1 Applicator vaginally daily at bedtime for 7 days. 45 g 0 01/25/2022 02/01/2022 Active Comment on above: Use 1 Applicator vag inally daily at bedtime for 7 days. Completed/Discontinued Medications Medication Drug Class(es) Dates Sig (Normalized) Sig (Original) apixaban 5 mg oral tablet (5 sources) Factor Xa Inhibitor Start: 02-18-2022 End: 03-02-2022 take 1 tablet by mouth twice daily Apixaban (Eliquis Dvt-Pe Treat 30d Start) 5 mg (74 tabs) tablets,dose pack Discontinued 5 mg PO TWICE A DAY 74 0 February 18, 2022 12:00am March 02, 2022 10:37pm benzonatate 100 mg oral capsule (9 sources) Non-narcotic Antitussive Start: 05-16-2022 End: 05-21-2023 take 1 capsule by mouth three times daily as needed for cough benzonatate (TESSALON PERLE) 100 mg capsule Indications: Recurrent deep vein thrombosis (DVT) (HCC) Take 1 capsule by mouth three times daily as needed for cough. 0 05/16/2022 05/21/2023 Discontinued Comment on above: Take 1 capsule by mo uth three times daily as needed for cough. cefdinir 300 mg oral capsule (9 sources) Cephalosporin Antibacterial Start: 05-16-2022 End: 05-21-2023 take 1 capsule by mouth twice daily cefdinir (OMNICEF) 300 mg capsule Indications: Recurrent deep vein thrombosis (DVT) (HCC) Take 1 capsule by mouth twice daily. 20 capsule 0 05/16/2022 05/21/2023 Discontinued Comment on above: Take 1 capsule by mo uth twice daily. cephalexin 500 mg oral capsule (3 sources) Cephalosporin Antibacterial Start: 10-28-2021 End: 12-03-2021 take 1 tablet by mouth three times daily cephALEXin (KEFLEX) 500 mg capsule TAKE ONE(1) TABLET PO THREE TIMES DAILY X10 DAYS. 30 capsule 0 10/28/2021 12/03/2021 Discontinued Comment on above: TAKE ONE(1) TABLET P O THREE TIMES DAILY X10 DAYS. clotrimazole 10 mg/ml topical cream (17 sources) Azole Antifungal Start: 01-25-2022 End: 05-21-2023 clotrimazole (LOTRIMIN, CLOTRIM) 1 % cream Apply to affected area twice daily. 45 g 0 01/25/2022 05/21/2023 Discontinued Comment on above: Apply to affected ar ea twice daily. Comp Stocking,Knee,Regul ar,Med misc (20 sources) Start: 05-16-2022 End: 05-10-2024 Comp Stocking,Knee,Regu lar,Med misc Indications: Pedal edema Use daily for at least 12 hours 1 Each 1 05/16/2022 05/10/2024 Discontinued (Course of therapy completed) Start: 05-16-2022 Comp Stocking, Knee,Regular,Med misc Indications: Pedal edema Use daily for at least 12 hours 1 Each 1 05/16/2022 Active Comment on above: Use daily for at [address] 12 hours famotidine 40 mg oral tablet (16 sources) Histamine-2 Receptor Antagonist Start: End: take 1 tablet by mouth once daily famotidine (PEPCID) 40 mg tablet Indications: Angioedema of lips, subsequent encounter Take 1 tablet by mouth once daily. 30 tablet 05/21/2023 05/10/2024 Discontinued (Course of therapy completed) Start: 03-17-2022 End: 04-16-2022 take 1 tablet by mouth twice daily famotidine (PEPCID) 20 mg tablet Indications: Allergy to antithrombotic medication Take 1 tablet by mouth twice daily. 60 tablet 0 03/17/2022 04/16/2022 Active Comment on above: Take 1 tablet by bossman th twice daily. Take 1 tablet by bossman th once daily. fluticasone propionate 0.05 mg/actuat metered dose nasal spray (9 sources) Corticosteroid Start: 2021 End: 2022 take 2 spray(s) by mouth once daily fluticasone (FLONASE) 50 mcg/actuation nasal spray Indications: Recurrent deep vein thrombosis (DVT) (HCC) Use 2 Sprays in each nostril once daily. Rinse mouth after use. 0 05/16/2022 05/21/2023 Discontinued Comment on above: Use 2 Sprays in each nostril once daily. Rinse mouth after use. methylPREDNISolone 32 mg oral tablet (10 sources) Corticosteroid Start: 2022 End: 2023 take 1 tablet by mouth once daily Methylprednisolone 32 mg tablet Discontinued 32 mg PO DAILY 4 0 May 27, 2023 1:00am August 28, 2023 4:46pm Start: 05-07-2023 End: 09-04-2023 methylPREDNISolone (MEDROL D OSE-PACK) 4 mg Dose-Pack Take by mouth as directed. Per package instructions 0 05/08/2023 09/04/2023 Discontinued Comment on above: Take by mouth as dir ected. Per package instructions 24 hr oxybutynin chloride 5 mg extended release oral tablet (1 source) Cholinergic Muscarinic Antagonist Start: 02-26-20 End: 07-29-19 take 1 tablet by mouth once daily oxybutynin XL (DITROPAN XL) 5 mg 24 hr tablet Indications: Urge incontinence Take 1 tablet by mouth once daily. 30 tablet 0 02/25/2021 07/29/2021 Discontinued Comment on above: Take 1 tablet by bossman th once daily. rivaroxaban 20 mg oral tablet (6 sources) Factor Xa Inhibitor Start: 03-02-20 End: 08-28-19 take 1 tablet by mouth once daily at dinner Rivaroxaban (Xarelto) 20 mg tablet Discontinued 20 mg PO DAILY 30 0 March 02, 2022 12:00am August 28, 2023 4:46pm must administer with evening meal Comment on above: Take 1 tablet by bossman th daily with dinner. sulfamethoxazole 800 mg / trimethoprim 160 mg oral tablet (2 sources) Dihydrofolate Reductase Inhibitor Antibacterial, Sulfonamide Antimicrobial Start: 12-04-19 End: 12-14-19 take 1 tablet by mouth twice daily sulfamethoxazole-tr imethoprim (BACTRIM DS) 800-160 mg per tablet Take 1 tablet by mouth twice daily for 10 days. 20 tablet 0 12/03/2021 12/13/2021 Comment on above: Take 1 tablet by bossman th twice daily for 10 days. Problems Active Problems Problem Classification Problem Date Documented Da te Episodic/Chronic Adjustment disorders (20 sources) Adjustment disorder with depressed mood; Translations: [Adjustment disorder with depressed mood] 08-11-2005 Chronic Allergic reactions (1 source) Allergy to drug; Translations: [Allergy status to other drugs, medicaments and biological substances status] Episodic Anxiety disorders (20 sources) Anxiety; Translations: [Other specified anxiety disorders] Onset: 1 09-06-2020 Chronic Blindness and vision defects (1 source) Blurring of visual image; Translations: [Other visual disturbances] 08-28-2023 Episodic Cancer of breast (20 sources) 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; Translations: [Malignant neoplasm of unspecified site of right female breast] Onset: 5 Resolved: 2 Chronic Cancer of breast (2 sources) History of malignant neoplasm of breast; Translations: [Personal history of malignant neoplasm of breast] 08-18-2022 Episodic Diseases of mouth; excluding dental (1 source) Disorder of lip; Translations: [Diseases of lips] Onset: 3 Episodic Disorders of lipid metabolism (20 sources) Hyperlipidemia; Translations: [Hyperlipidemia, unspecified] Onset: 5 07-29-2021 Chronic Genitourinary symptoms and ill-defined conditions (20 sources) Female stress incontinence; Translations: [Stress incontinence (female) (male)] Onset: 8 08-24-2017 Chronic Genitourinary symptoms and ill-defined conditions (1 source) Increased frequency of urination; Translations: [Frequency of micturition] Episodic Inflammatory diseases of female pelvic organs (1 source) Acute vaginitis; Translations: [Acute vaginitis] Episodic Intestinal obstruction without hernia (10 sources) Small bowel obstruction; Translations: [Unspecified intestinal obstruction, unspecified as to partial versus complete obstruction] 07-19-2021 Episodic Nutritional deficiencies (20 sources) Vitamin D deficiency; Translations: [Vitamin D deficiency, unspecified] Onset: 5 10-31-2014 Chronic Other aftercare (5 sources) Long-term current use of anticoagulant; Translations: [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 of anticoagulants] 07-19-2021 Episodic Other circulatory disease (1 source) Elevated blood-pressure reading without diagnosis of hypertension; Translations: [Elevated blood-pressure reading, without diagnosis of hypertension] Episodic Other complications of (1 source) Antepartum deep vein thrombosis; Translations: [Deep phlebothrombosis in , unspecified trimester] Episodic Other connective tissue disease (1 source) Swelling of left lower limb; Translations: [Other specified soft tissue disorders] Episodic Other eye disorders (1 source) Conjunctival hemorrhage; Translations: [Conjunctival hemorrhage, unspecified eye] Onset: Episodic Other female genital disorders (1 source) Pruritus of vagina; Translations: [Other specified noninflammatory disorders of vagina] 10-21-2023 Episodic Other female genital disorders (1 source) Vaginal irritation; Translations: [Other specified noninflammatory disorders of vagina] 05-10-2024 Episodic Other injuries and conditions due to external causes (4 sources) Angioedema; Translations: [Angioneurotic edema, initial encounter] 03-10-2022 Episodic Other injuries and conditions due to external causes (1 source) Angioneurotic edema, subsequent encounter; Translations: [Other specified aftercare] 05-21-2023 Episodic Other injuries and conditions due to external causes (3 sources) Angioedema of tongue; Translations: [Angioneurotic edema, initial encounter] 05-27-2023 Episodic Other lower respiratory disease (2 sources) Cough; Translations: [Acute cough] 11-17-2023 Episodic Other skin disorders (1 source) Lip swelling; Translations: [Localized swelling, mass and lump, head] 05-21-2023 Episodic Other upper respiratory infections (1 source) Chronic sinusitis; Translations: [Chronic sinusitis, unspecified] 11-17-2023 Chronic Other upper respiratory infections (1 source) Acute sinusitis; Translations: [Other acute sinusitis] Episodic Phlebitis; thrombophlebitis and thromboembolism (20 sources) Thromboembolism of vein; Translations: [Acute embolism and thrombosis of right iliac vein] Onset: 8 11-25-2017 Episodic Prolapse of female genital organs (20 sources) Pelvic floor dysfunction; Translations: [Other female genital prolapse] Onset: 0 01-26-2020 Chronic Residual codes; unclassified (1 source) Edema of foot; Translations: [Localized edema] Episodic Screening and history of mental health and substance abuse codes (5 sources) H/O: depression; Translations: [Personal history of other mental and behavioral disorders] 07-08-2021 Episodic Skin and subcutaneous tissue infections (3 sources) Cellulitis of axilla; Translations: [Cellulitis of unspecified part of limb] Episodic Spondylosis; intervertebral disc disorders; other back problems (20 sources) Lumbar spondylosis; Translations: [Spondylosis without myelopathy or radiculopathy, lumbar region] Onset: 0 01-26-2020 Chronic Spondylosis; intervertebral disc disorders; other back problems (5 sources) Acute low back pain; Translations: [Acute low back pain without sciatica] 01-24-2020 Episodic Thyroid disorders (20 sources) Thyroid nodule; Translations: [Nontoxic single thyroid nodule] Onset: 5 07-26-2014 Chronic Urinary tract infections (1 source) Acute urinary tract infection; Translations: [Urinary tract infection, site not specified] 05-10-2024 Episodic Past or Other Problems Problem Classification Problem Date Documented Date Episodic/Chronic Noninfectious gastroenteritis (20 sources) Chronic diarrhea; Translations: [Noninfective gastroenteritis and colitis, unspecified] Onset: 07-12-2014 07-12-2014 Episodic Nonmalignant breast conditions (11 sources) Breast lump; Translations: [Unspecified lump in unspecified breast] Onset: 08-09-2014 Resolved: 08-23-2018 08-23-2018 Episodic Other screening for suspected conditions (not mental disorders or infectious disease) (20 sources) Patient encounter status; Translations: [Encounter for screening mammogram for malignant neoplasm of breast] Onset: 07-26-2014 Episodic Residual codes; unclassified (20 sources) Estrogen receptor positive tumor; Translations: [Estrogen receptor positive status [ER+]] Onset: 08-29-2014 08-29-2014 Episodic Residual codes; unclassified (20 sources) History of total hysterectomy with bilateral salpingo-oophorectomy ; Translations: [Acquired absence of both cervix and uterus] Onset: 08-24-2017 08-24-2017 Episodic Unclassified (1 source) Patient encounter status 09-14-2024 Results Test Name Value Interpretation Reference Range Facil ity Basic Metabolic Profile (BMP )on 04-04-2025 BUN/CRE 7.8 RATIO Low 04-03 [facility] Comment on above: Performed By: #### L 100.0100, L500.2500 #### [facility] [address] [place], [address] Calcium [Mass/Vol] 8.9 mg/dL Normal 7.6-11.0 [facility] Comment on above: Performed By: #### L 100.0100, L500.2500 #### [facility] [address] [place], [address] Chloride [Moles/Vol] 109 mmol/L High 98-108 [facility] Comment on above: Performed By: #### L 100.0100, L500.2500 #### [facility] [address] [place], [address] CO2 [Moles/Vol] 24.5 mmol/L Normal 21.0-32.0 [facility] Comment on above: Performed By: #### L 100.0100, L500.2500 #### [facility] [address] [place], [address] Creatinine [Mass/Vol] 0.91 mg/dL Normal 0.70-1.20 [facility] Comment on above: Performed By: #### L 100.0100, L500.2500 #### [facility] [address] [place], [address] ECRCL 56.35 ml/min Normal 50-250 [facility] Comment on above: Performed By: #### L 100.0100, L500.2500 #### [facility] [address] [place], [address] GAP 9 Normal 5-15 [facility] Comment on above: Performed By: #### L 100.0100, L500.2500 #### [facility] [address] [place], [address] GFR/1.73 sq M.predicted among non-blacks MDRD (S/P/Bld) [Vol rate/Area] 66 mL/min/{1.73_m2} Normal >60 [facility] Comment on above: Result Comment: mL/m in/1.73m2 CKD-EPI Creatinine Equation (2020) Performed By: #### L 100.0100, L500.2500 #### [facility] [address] [place], [address] Glucose [Mass/Vol] 99 mg/dL Normal 70-99 [facility] Comment on above: Performed By: #### L 100.0100, L500.2500 #### [facility] [address] [place], [address] Potassium [Moles/Vol] 3.8 mmol/L Normal 3.3-5.1 [facility] Comment on above: Performed By: #### L 100.0100, L500.2500 #### [facility] [address] [place], [address] Sodium [Moles/Vol] 143 mmol/L Normal 133-145 [facility] Comment on above: Performed By: #### L 100.0100, L500.2500 #### [facility] [address] [place], [address] Urea nitrogen [Mass/Vol] 7 mg/dL Normal 4-19 [facility] Comment on above: Performed By: #### L 100.0100, L500.2500 #### [facility] [address] [place], [address] CBC W/Diff, Automatedon 10-2 Absolute Lymph 1.18 X10 3/uL Normal 0.83-4.51 [facility] Comment on above: Performed By: #### L 100.0100, L500.2500 #### [facility] [address] [place], [address] Absolute Neut 5.8 X10 3/uL Normal 2.0-7.7 [facility] Comment on above: Performed By: #### L 100.0100, L500.2500 #### [facility] [address] [place], [address] Basophils/100 WBC (Bld) 0.6 % Normal 0-1 [facility] Comment on above: Performed By: #### L 100.0100, L500.2500 #### [facility] [address] [place], [address] Eosinophils/100 WBC (Bld) 6.3 % High 0-5 [facility] Comment on above: Performed By: #### L 100.0100, L500.2500 #### [facility] [address] [place], [address] Erythrocyte distribution width (RBC) [Ratio] 13.1 % Normal 11.6-14.6 [facility] Comment on above: Performed By: #### L 100.0100, L500.2500 #### [facility] [address] [place], [address] Hematocrit (Bld) [Volume fraction] 39.9 % Normal 37-47 [facility] Comment on above: Performed By: #### L 100.0100, L500.2500 #### [facility] [address] [place], [address] Hemoglobin (Bld) [Mass/Vol] 13.6 g/dL Normal 12.0-15.0 [facility] Comment on above: Performed By: #### L 100.0100, L500.2500 #### [facility] [address] [place], [address] IG% 0.500 Normal 0.0-0.9 [facility] Comment on above: Result Comment: IG% - Immature Granulocytes (promyelocytes, myelocytes and metamyelocytes) > 1% indicates that a LEFT SHIFT is Present. Performed By: #### L 100.0100, L500.2500 #### [facility] [address] [place], [address] Lymphocytes/100 WBC (Bld) 14.8 % Low 19-41 [facility] Comment on above: Performed By: #### L 100.0100, L500.2500 #### [facility] [address] [place], [address] MCH (RBC) [Entitic mass] 31.6 pg Normal 27.0-32.0 [facility] Comment on above: Performed By: #### L 100.0100, L500.2500 #### [facility] [address] [place], [address] MCHC (RBC) [Mass/Vol] 34.1 g/dL Normal 32-36 [facility] Comment on above: Performed By: #### L 100.0100, L500.2500 #### [facility] [address] [place], [address] MCV (RBC) [Entitic vol] 92.8 fL Normal 81-99 [facility] Comment on above: Performed By: #### L 100.0100, L500.2500 #### [facility] [address] [place], [address] Monocytes/100 WBC (Bld) 5.3 % Normal 0-10 [facility] Comment on above: Performed By: #### L 100.0100, L500.2500 #### [facility] Laboratory [address] [place], [address] Neutrophils/100 WBC (Bld) 72.5 % High 47-70 [facility] Comment on above: Performed By: #### L 100.0100, L500.2500 #### [facility] [address] [place], [address] Nucleated RBC (Bld) [#/Vol] 0 10*3/uL Normal 0-5 [facility] Comment on above: Performed By: #### L 100.0100, L500.2500 #### [facility] [address] [place], [address] Platelet mean volume (Bld) [Entitic vol] 11.9 fL Normal 6.2-12.0 [facility] Comment on above: Performed By: #### L 100.0100, L500.2500 #### [facility] [address] [place], [address] Platelets (Bld) [#/Vol] 230 10*3/uL Normal 150-450 [facility] Comment on above: Performed By: #### L 100.0100, L500.2500 #### [facility] [address] [place], [address] RBC (Bld) [#/Vol] 4.30 10*6/uL Normal 4.2-5.4 [facility] Comment on above: Performed By: #### L 100.0100, L500.2500 #### [facility] [address] [place] [place], [address] RDW SD 44.3 fl High 35.1-43.9 [facility] Comment on above: Performed By: #### L 100.0100, L500.2500 #### [facility] [address] [place], [address] WBC (Bld) [#/Vol] 8.0 10*3/uL Normal 4.4-11.0 [facility] Comment on above: Performed By: #### L 100.0100, L500.2500 #### [facility] [address] [place], [address] Emergency Department Summary on 04-04-2025 Emergency Department Summary [facility] Medical Records Department [address] [place] [address] Emergency Department Summary 04/04/25 MR#: [id number] Acct: [id number] Name: ILENE SHAW Rep #: [id number] : 1950 75 From: Teodoro Daley MD PCP: Dr. Jennifer Santos MD Status:REG ER Location: ED HPI History of Present Illness Chief Complaint: Lower Extremity Injury Detail of Chief Complaint: Pain, redness medial left lower extremity Onset/Context/Timing Onset: Days Context: Sudden Onset Timing: Continuous Quality: Area involvement along the distribution of the greater saphenous vein Location: Left lower extremity Current Severity: Mild Maximum Severity: Moderate Worsened by: Increased pain with palpation Relieved by: Nothing Associated Symptoms Associated Symptoms: No fever, chills night sweats. No dyspnea, MICHAEL or chest pain of any type i Narrative Narrative: Patient is a 75-year-old woman. She has history of depression and bronchitis. She is on a baby aspirin. She also has history anxiety based on medication. She presents because of redness pain distribution of the greater saphenous vein on the left. Patient has no symptoms suggestive of PE. She has no neurovascular compromise of that extremity. Prior similar symptoms: No Recent Illness/Hospitalizati on: No PFSH PFSH Medical History Vaginal candidiasis Acute bronchitis, unspecified Kidney stones Pulmonary embolism Adult-onset Still's disease Depression Anxiety Breast cancer Endometriosis Bowel obstruction Home Medications ???Medication ???Instructions ???Recorded ???Last Taken ???Type alprazolam 0.25 mg tablet 0.25 mg PO TID PRN PRN Insomnia Unknown History escitalopram oxalate 10 mg tablet 10 mg PO DAILY 08/16/14 Unknown H istory aspirin 81 mg tablet,delayed 81 mg PO DAILY 08/28/23 Unknown Hi story release (Adult Low Dose Aspirin) doxycycline monohydrate 100 mg 100 mg PO BID #20 caps 01/03/25 Un known Rx capsule fluconazole 200 mg tablet 200 mg PO DAILY #1 TAB 01/03/25 Un known Rx apixaban 5 mg (74 tabs) tablets in See Rx Instructions .Route 04/04 Unknown Rx a dose pack (Eliquis DVT-PE Treat .COMPLEX #74 tabs 30D Start) Allergy/AdvReac Type Severity Reaction Status Date / Time ampicillin Allergy Rash Verified 04/04/25 10:36 prednisone AdvReac SHAKINESS Verified 04/04/25 10:36 Surgical History H/O lumpectomy History of bowel resection History of colostomy reversal H/O: hysterectomy Social History household members: family housing: house Smoking Status: Never smoker ROS ROS ED Cardiovascular Cardiovascular: Denies chest pain, orthopnea, palpitations, paroxysmal nocturnal dyspnea or racing heartbeat Respiratory/Chest Respiratory/Chest: Denies cough, dyspnea, dyspnea on exertion, orthopnea or paroxysmal nocturnal dyspnea Neurologic Neurologic: Denies paresthesias or weakness Hematologic/Lymphatic Hematologic/Lymphatic : Denies easy bleeding, easy bruising or lymphadenopathy EXAM Physical Exam Const Vital Signs: 04/04/25 10:36 Temperature 98.4 F Temperature Source Oral Pulse Rate 85 Respiratory Rate 18 Blood Pressure 178/99 H Blood Pressure Mean 125 Pulse Ox 99 Oxygen Delivery Method Room Air Positive well nourished and well developed Constitutional Narrative: Blood pressure is elevated. BMI is 37.1 General Appearance ED: well developed and NAD HEENT Reports moist mucous membranes HEENT Narrative: HEENT exam is unremarkable, grossly Eyes PERRL and EOMs intact bilaterally General Eye ED: Negative for pale conjunctiva or scleral icterus Resp normal respiratory effort and clear to auscultation bilaterally Cardio regular rate, regular rhythm, S1 normal heart sound, S2 normal heart sound and no murmurs Extremity Negative for normal to inspection Extremity Narrative: Patient has palpable cord along the distribution of the left greater saphenous vein from the calf to the groin area. There is some shotty inguinal lymph nodes noted on the left. Neuro oriented x3 and CN's II-XII intact bilaterally Sensorium / Orientation: alert Psych mental status grossly normal Skin Skin Narrative: Evidence of superficial phlebitis involving the greater saphenous vein. MDM MDM MDM Narrative Medical decision making narrative: Clinically patient has a clot involving the greater saphenous vein on the left. Concern is that it is within the junction of the superficial femoral vein. If within 10 cm she will need to be anticoagulated. Therefore we will obtain a venous duplex study. Will obtain blood work to assess renal function since t (more content not included)... Normal [facility] Venous Duplex US, Unilateral on 04-04-2025 Venous Duplex US, Unilateral [facility] [address] [place] [address] Venous Duplex US, Unilateral 04/04/25 1109 MR#: [id number] Acct: [id number] Name: ILENE SHAW Rep #: [id number] : 1950 75 From: Bran Alston MD Attending Dr: Status: DEP ER Ordering Dr: Teodoro Daley MD Date: 04/04/25 Location: ED Sex: F C Admitted: Reason For Study Reason For Study: Palpable cord RIGHT LEFT CFV is compressible, spontaneous, phasic, competent Acute superficial vein thrombosis is noted in the left and demonstrates normal augmentation. GSV from groin to mid calf. It is dilated and Procedure NONCOMPRESSIBLE. This is a venous duplex using B-mode, color flow and Acute deep vein thrombosis is noted in the left CFV. spectral Doppler. It is partially NONCOMPRESSIBLE. Thrombus is extending Exam performed in department. approximately 2.53 cm from GSV. A preliminary report was called and/or faxed to [facility] is compressible, spontaneous, phasic, competent and Pepper RN. demonstrates normal augmentation. POP V is compressible, spontaneous, phasic, competent and demonstrates normal augmentation. T/P Trunk is compressible. PTV is compressible. LT PerV is compressible. VL/Venous Duplex US, Unilateral Interpretation Summary Acute deep vein thrombosis noted in the left common femoral vein. Acute superficial vein thrombosis noted in the left great saphenous vein Ordering Physician: Teodoro Daley Referring Physician: Jennifer Santos Performed By: Jenn Naranjo RVT 04/04/25 1555 Date Bran Alston MD CC: Dr. Jennifer Santos MD; Dr. Teodoro Daley MD Date Dictated: 04/04/25 1109 Date Transcribed: 04/04/25 6065 Roll Tender: Signed Normal [facility] Urgent Care Visit Reporton 0 01-03-2025 Urgent Care Visit Report [facility] [address], [address] [place] [address] OFFICE VISIT Date of Service: 01/03/25 MR#: [id number] Acct: [id number] Name: ILENE SHAW Rep #: [id number] : 1950 Provider: RA Currie Age/Sex: 74/F Location: [facility] Status: Signed Intake Vital Signs 08/28/23 16:43 01/03/25 15:04 Height 5 ft 2 in 5 ft 2 in Weight: 195 lb BMI 35.6 BP 130/84 H Blood Pressure Location Lt brachial Position Sitting Respiration 16 Pulse 94 Pulse Source Monitor Temp 98.2 F Temp Source Oral Pulse Oximetry (%) 97 Oxygen Delivery Method room air Intake Visit Reasons: Cough Chief Complaint: Cough Corporate Webmaster Required: No Accompanied by: Self Is patient in pain?: No Allergies ampicillin Allergy (Verified 01/03/25 14:49) Rash prednisone Adverse Reaction (Verified 01/03/25 14:49) SHAKINESS Medications ???Medication ???Instructions ???Recorded ???Confirmed ???Type alprazolam 0.25 mg tablet 0.25 mg PO TID PRN PRN Insomnia 01/03/25 History escitalopram oxalate 10 mg tablet 10 mg PO DAILY 08/16/14 01/03/25 History aspirin 81 mg tablet,delayed 81 mg PO DAILY 08/28/23 01/03/25 H istory release (Adult Low Dose Aspirin) doxycycline monohydrate 100 mg 100 mg PO BID #20 caps 01/03/25 Rx capsule fluconazole 200 mg tablet 200 mg PO DAILY #1 TAB 01/03/25 Rx Have you fallen in the past year?: No Nurse's Note: Complaint of cough and cold for 6 days. Has tried otc medications for cold symptoms. [facility] Medical History (Updated 01/03/25 @ 15:18 by Ki KNAPP, PA) Vaginal candidiasis Acute bronchitis, unspecified Kidney stones Pulmonary embolism Adult-onset Still's disease Depression Anxiety Breast cancer Endometriosis Bowel obstruction Surgical History H/O lumpectomy History of bowel resection History of colostomy reversal H/O: hysterectomy Social History household members: family housing: house Smoking Status: Never smoker HPI HPI Chief Complaint: Cough Details: ILENE SHAW, is a 74 F who presents to the office today for initial evaluation at the [facility] for approximately 1 week history of persistent moist nonproductive cough with nasal congestion which is worse when supine. No complaints of fever, chills, sweats, lightheadedness/dizzi ness, nausea/vomiting, or chest pain/shortness of breath/dyspnea on exertion. Non-smoker. No close contacts with similar complaints. No [id number]-tmo-sfnnvro products taken to assist. Additionally, patient notes having a history of chronic vaginal pruritus and concern for vaginal candidiasis; she notes [id number] Monistat cream helping some but may not resolve her symptoms. No other associated symptoms and no alleviating/aggravati ng factors. ROS Const Constitutional: No other (As above) Exam Const General: cooperative, healthy appearing and no acute distress Orientation: alert and awake [facility] Head: normal to inspection Ears: hearing grossly normal bilaterally, external ears normal, TM's normal bilaterally and EAC's normal Nose: external nose normal, nares normal, septum normal and no nasal discharge Face and sinus: normal facial exam, sinuses nontender and face symmetric Mouth: oral mucosae normal, lip normal, tongue normal, oropharynx normal and moist mucous membranes Throat: posterior oropharynx normal, uvula midline, posterior oropharynx abnormal and postnasal drainage Neck Neck: normal visual inspection, full ROM, no lymphadenopathy, no meningeal signs and supple Resp Effort Inspection: normal respiratory effort, able to speak in complete sentences and cough Quality of cough: wet (nonproductive cough) Auscultation: Bilateral: Clear to Auscultation Cardio Palpation: normal PMI Rate: regular rate Rhythm: regular rhythm Heart Sounds: S1 normal, S2 normal, no gallops, no murmurs and no rubs Pulses: radial pulses present Skin General: no rashes or lesions noted Neuro General: patient alert and patient awake Cognition: normal cognition Speech: speech normal Psych Appearance: grossly normal Mental Status: mental status grossly normal Mood: congruent mood Affect: normal affect Speech and Movement: speech and movement normal Attitude: cooperative Coding Level of Care Code Off vis,new,level 3 Diagnoses Acute bronchitis, unspecified J20.9 Vaginal candidiasis B37.31 Assessment and Plan Assessment and Plan (1) Acute bronchitis, unspecified: Status: Acute (2) Vaginal candidiasis: Status: Acute Plan: Azithromycin and Diflucan as prescribed today. Supportive measures as instructed today. Follow-up with PCP in 3 to 5 (more content not included)... Normal [facility] 12-20-2024 CNCO Letter Text Normal [facility]BARA SCREENING W TOMOon 09-22 [facility]BAR[facility] SCREENING W EL * * *Final Report* * * DATE OF EXAM: Sep 22 2024 9:56AM [facility] 0582 - BARBARA SCREENING W EL / PROCEDURE REASON: Encounter for screening mammogram for breast cancer * * * * Physician Interpretation * * * * RESULT: [facility] [address] [place] [address] #[id number] - BARBARA SCREENING W EL HISTORY: 74 year-old patient seen for screening. Patient is asymptomatic in both breasts. The patient has the following personal history of breast cancer: breast cancer in the right breast. COMPARISON STUDIES: The present examination has been compared to prior imaging studies dated 09/02/2021 (mammogram), 09/03/2022 (mammogram) and 09/07/2023 (mammogram). MAMMOGRAM TECHNIQUE: The study was acquired using full field digital technology and interpreted from soft copy. Digital Breast Tomosynthesis (DBT) images were obtained and used to assist in the interpretation of this examination. MAMMOGRAM FINDINGS: There are scattered areas of fibroglandular density. There are post-operative changes in the right breast. No suspicious masses, calcifications or other abnormalities are seen in either breast. IMPRESSION: There is no mammographic evidence of malignancy. Routine screening mammogram is recommended. Annual mammogram will be due in 1 year. BI-RADS Category 2: Benign RISK: Due to the reported patient's history, the patient's estimated lifetime risk of developing breast cancer cannot be assessed at this time. We encourage all patients to talk with their providers about their risk assessment, further recommendations for managing breast health, and appropriate supplemental screening options if the patient has dense breast tissue. Interpreting Radiologist: Mita Finney M.D. Electronically signed on: 09/23/2024 Roll Tender: SÁNCHEZ Transcribe Date/Time: Sep 22 2024 9:45A Dictated by: MITA FINNEY MD This examination was interpreted and the report reviewed and electronically signed by: MITA FINNEY MD on Sep 23 2024 7:47PM EST [id number] Normal [facility] CNPNon 09-14-2024 CNPN Telephone (INTMWS) ILENE SHAW ([id number]) 1950 F Date Time Provider Department 09/14/24 JENNIFER SANTOS INTMWS During your visit today, we recorded the following information about you: Soraya Pena 09/14/2024 1:03 PM Signed Patient calling in for her yearly mammogram with el. Patient is scheduled, she just needs an order. Please review Soraya Pena September 14, 2024 1:03 PM Kelle Peter APRN.CNP 09/14/2024 4:48 PM Signed Order placed Kelle Peter APRN.CNP Allergies As of Date: 09/14/2024 Noted Allergy Reaction ELIQUIS (APIXABAN) 03/03/2022 7 - Swelling 10 - Anaphylaxis Comments: swelling everywhere including lips on mouth AMPICILLIN 08/11/2005 2 - Rash 9 - Itching XARELTO (RIVAROXABAN) 03/17/2022 7 - Swelling Date Reviewed: 05/10/2024 Reviewed by: Kassidy Dial LPN - Fully Assessed Reason for Visit: Orders [681] Visit Diagnosis:Encounter for screening mammogram for breast cancer [Z12.31] Order(s):[facility] SCREENING W EL [[id number]] Order #: [id number] FUTURE Prescriptions as of 09/14/2024 - aspirin (ASPIR-81 ORAL) Take 81 mg by mouth once daily. - escitalopram oxalate (LEXAPRO) 10 mg tablet Take 10 mg by mouth once daily. - ALPRAZolam (XANAX) 0.25 mg tablet Take 1 tablet by mouth once daily. Problem List As Of Date 09/14/2024 Noted Resolved ADJUSTMENT DISORDER WITH DEPRESSED MOOD [F43.21] Chronic diarrhea [K52.9] 07/12/2014 Hyperlipidemia with target low density lipoprot*07/14/2014 Thyroid nodule [E04.1] 07/26/2014 Special screening for malignant neoplasms, colo*07/26/2014 Lump or mass in breast [N63.0] 08/09/2014 08/23/2018 Breast cancer (HCC) [C50.919] 08/14/2014 02/11/2022 ER+ (estrogen receptor positive status) [Z17.0] 08/29/2014 Vitamin D deficiency [E55.9] 10/31/2014 Breast cancer, right (HCC) [C50.911] 03/12/2015 02/11/2022 Invasive ductal carcinoma of right breast in fe*08/05/2016 Stress incontinence in female [N39.3] 08/24/2017 S/P TACO-BSO (total abdominal hysterectomy and b*08/24/2017 History of thromboembolism of vein [Z86.718] 11/25/2017 Mixed stress and urge urinary incontinence [N39*01/26/2020 Pelvic floor weakness [N81.89] 01/26/2020 Lumbar spondylosis [M47.816] 01/26/2020 Situational anxiety [F41.8] 09/06/2020 Encounter Status:Closed by KELLE PETER on 09/14/24 Aida [facility] Kelsie 05-11-2024 LACYN Telephone (UCWSTR) ILENE SHAW ([id number]) 1950 F Date Time Provider Department 05/11/24 TORREY DAWSON [facility] During your visit today, we recorded the following information about you: Torrey Dawson, PAMichaelC 05/11/2024 8:42 AM Signed Please call and let patient know her STD testing was negative. She did test positive for yeast. I did send in medication for this. Urine culture is still pending will call as needed. Continue antibiotic as well. Follow-up with PCP if no improvement. Montse Ramirez LPN 05/11/2024 9:48 AM Signed Left message for patient to return call for results.HOPE Guadarrama Brandi, LPN 05/11/2024 7:07 PM Signed Patient given results and verbalized understanding of instructions given. Kassidy Dial LPN Allergies As of Date: 05/11/2024 Noted Allergy Reaction ELIQUIS (APIXABAN) 03/03/2022 7 - Swelling 10 - Anaphylaxis Comments: swelling everywhere including lips on mouth AMPICILLIN 08/11/2005 2 - Rash 9 - Itching XARELTO (RIVAROXABAN) 03/17/2022 7 - Swelling Date Reviewed: 05/10/2024 Reviewed by: Kassidy Dial LPN - Fully Assessed Reason for Visit: Results [95] Order(s):fluconazole (DIFLUCAN) 150 mg tabletTake 1 tablet by mouth once daily for 1 day.Disp: 1 tabletRfl: 0 Prescriptions as of 05/11/2024 - fluconazole (DIFLUCAN) 150 mg tablet Take 1 tablet by mouth once daily for 1 day. - nystatin-triamcinolon e (MYCOLOG) ointment Apply sparingly to perineum twice daily for irritation/infection. - nitrofurantoin monohydrate and macrocrystal (MACROBID) 100 mg capsule Take 1 capsule by mouth two times a day with meals for 5 days. - aspirin (ASPIR-81 ORAL) Take 81 mg by mouth once daily. - escitalopram oxalate (LEXAPRO) 10 mg tablet Take 10 mg by mouth once daily. - ALPRAZolam (XANAX) 0.25 mg tablet Take 1 tablet by mouth once daily. Problem List As Of Date 05/11/2024 Noted Resolved ADJUSTMENT DISORDER WITH DEPRESSED MOOD [F43.21] Chronic diarrhea [K52.9] 07/12/2014 Hyperlipidemia with target low density lipoprot*07/14/2014 Thyroid nodule [E04.1] 07/26/2014 Special screening for malignant neoplasms, colo*07/26/2014 Lump or mass in breast [N63.0] 08/09/2014 08/23/2018 Breast cancer (HCC) [C50.919] 08/14/2014 02/11/2022 ER+ (estrogen receptor positive status) [Z17.0] 08/29/2014 Vitamin D deficiency [E55.9] 10/31/2014 Breast cancer, right (HCC) [C50.911] 03/12/2015 02/11/2022 Invasive ductal carcinoma of right breast in fe*08/05/2016 Stress incontinence in female [N39.3] 08/24/2017 S/P TACO-BSO (total abdominal hysterectomy and b*08/24/2017 History of thromboembolism of vein [Z86.718] 11/25/2017 Mixed stress and urge urinary incontinence [N39*01/26/2020 Pelvic floor weakness [N81.89] 01/26/2020 Lumbar spondylosis [M47.816] 01/26/2020 Situational anxiety [F41.8] 09/06/2020 Prescriptions ordered this encounter Disp Refills Start End FLUCONAZOLE 150 MG TABLET 1 ta* 0 05/11/2024 05/12/2024 Route: ORAL Sig: Take 1 tablet by mouth once daily for 1 day. Encounter Status:Closed by KASSIDY DIAL on 05/11/24 Normal [facility] BACTERIAL VAGINOSIS NAATon 1 07-10-2023 Lactobacillus crispatus+gasseri+j ensenii + Gardnerella vaginalis + Atopobium vaginae rRNA RADHA+probe Ql (Vag fld) Not detected Normal Not detected [facility] Comment on above: Order Comment: Speci men Type: SWAB Ordering Facility: [facility] Address: [address] [place] [address] Performed By: #### B VAMP, [id number] #### [facility] CLIA [id number] [address] [place] [address] [place] Bacteria Ur Culton 4 Bacteria identified Cx Nom (U) CULTURE, URINE: Mixed microbiota, including predominantly: ORGANISM ID: 1 >=100,000 CFU/ml Escherichia coli ORGANISM ID: 1 (ESCHERICHIA COLI) ------ ANTIBIOTIC INTERPRETATION ABRAHAM STATUS REFERENCE RANGE ------ Ampicillin R >=32 F Susceptible <=8 , Intermediate >8 , Resistant >16 Cefazolin S <=4 F Susceptible 0-16 , Intermediate <0 or >16 , Resistant >16 For uncomplicated urinary tract infections, cefazolin results can be used to predict susceptibility or resistance to cephalexin. Ceftriaxone S <=1 F Susceptible <=1 , Intermediate >1 , Resistant >=4 Cefepime S <=1 F Susceptible <=2 , Susceptible-Dose Dependent >2 , Resistant >=16 Ertapenem S <=0.5 F Susceptible <=0.5 , Intermediate >.5 , Resistant >1 Meropenem S <=0.25 F Susceptible <=1 , Intermediate >1 , Resistant >2 Ampicillin/Sulbact I 16 F Susceptible <=8 , Intermediate >8 , Resistant >16 Piperacillin/Tazobac S <=4 F Susceptible <16 , Susceptible-Dose Dependent >=16 , Resistant >=32 Gentamicin S <=1 F Susceptible <=2 , Intermediate >2 , Resistant >=8 Tobramycin S <=1 F Susceptible <4 , Intermediate >=4 , Resistant >=8 Trimeth sulfameth S <=20 F Susceptible <=40 , Resistant >40 Ciprofloxacin S <=0.25 F Susceptible <0.5 , Intermediate >=.5 , Resistant >=1 Nitrofurantoin S <=16 F Susceptible <=32 , Intermediate >32 , Resistant >64 Abnormal [facility] Comment on above: Performed By: #### Arlene VAMP, [id number] #### [facility] CLIA [id number] [address] [place] [address] [place] C. trachomatis+N. gonorrhoea e DNA RADHA+probe Ql (Unsp spec)on 05-10-2024 C. trachomatis rRNA RADHA+probe Ql (Unsp spec) Not detected Normal Not detected [facility] Comment on above: Order Comment: Speci men Type: SWAB Ordering Facility: [facility] Address: [address] [place] [address] Performed By: #### Arlene VAMP, [id number] #### [facility] CLIA [id number] [address] [place] [address] [place] N. gonorrhoeae rRNA RADHA+probe Ql (Unsp spec) Not detected Normal Not detected [facility] Comment on above: Order Comment: Speci men Type: SWAB Ordering Facility: [facility] Address: [address] [place] [address] Performed By: #### Arlene VAMP, [id number] #### [facility] CLIA [id number] [address] [place] [address] [place] ALBA/TRICHOMONAS NAATon 1 07-10-2023 C. glabrata RNA RADHA+probe Ql (Vag fld) Not detected Normal Not detected [facility] Comment on above: Order Comment: Speci men Type: SWAB Ordering Facility: [facility] Address: [address] [place] [address] Performed By: #### C VTV #### [facility] CLIA [id number] [address] [place] [address] [place] Alba sp DNA RADHA+probe Ql (Vag fld) Detected Abnormal Not detected [facility] Comment on above: Order Comment: Speci men Type: SWAB Ordering Facility: [facility] Address: [address] [place] [address] Result Comment: The Alba species group target includes C. albicans, C. tropicalis, C. parapsilosis, and C. dubliniensis. Performed By: #### C VTV #### [facility] CLIA [id number] [address] [place] [address] [place] T. vaginalis DNA RADHA+probe Ql (Unsp spec) Not detected Normal Not detected [facility] Comment on above: Order Comment: Speci men Type: SWAB Ordering Facility: [facility] Address: [address] [place] [address] Performed By: #### C VTV #### [facility] CLIA [id number] [address] [place] [address] [place] OF [place] CNOVon 05-10-2024 CNOV Office Visit ([facility]WSTR ) ILENE SHAW ([id number]) 1950 F Date Time Provider Department 05/10/24 12:30 PM TORREY DAWSON [facility] During your visit today, we recorded the following information about you: Temperature Pulse Respiration Blood pressure 98.1 degrees 75/minute 20/minute 136/78 Weight 87 kg Torrey Dawson, JIGNESH 05/10/2024 2:21 PM Signed This note was created using [email or web address]. Madison Cisseria Sangeeta Valeria is a 74 year old female. HPI Patient presents with a chief complaint of pelvic pressure, urinary frequency and dysuria over the past week. She is also had some vaginal itching and irritation. She recently did have a new sexual partner 10 days ago. Patient also had shaved for the first time in a while and has some irritation from that. No fever. She does have some lower back pain. No vomiting or diarrhea. Review of Systems Constitutional: Negative. HENT: Negative. Respiratory: Negative. Cardiovascular: Negative. Gastrointestinal: Negative. Genitourinary: Positive for dysuria, frequency, pelvic pain, urgency, vaginal discharge and vaginal pain. Negative for hematuria and vaginal bleeding. All other systems reviewed and are negative. PAST MEDICAL HISTORY Diagnosis Date Adjustment disorder with depressed mood Adnexal cyst Endometriosis Kidney disease renal calculi with litho. 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 escitalopram oxalate (LEXAPRO) 10 mg tablet Take 10 mg by mouth once daily. ALPRAZolam (XANAX) 0.25 mg tablet Take 1 tablet by mouth once daily. nystatin-triamcinolon e (MYCOLOG) ointment Apply sparingly to perineum twice daily for irritation/infection. 30 g 0 nitrofurantoin monohydrate and macrocrystal (MACROBID) 100 mg capsule Take 1 capsule by mouth two times a day with meals for 5 days. 10 capsule 0 No current facility-administered medications for this visit. PAST SURGICAL HISTORY Procedure Laterality Date BX BREAST W/DEVICE 1ST LESION ULTRASOUND GUID 08/09/14 U/S mammotome medial right breast and right outer mid BX/EXC LYMPH NODE OPEN DEEP AXILLARY NODE 08-18-14 RIGHT COLECTOMY PARTIAL W ANASTOM with temp ostomy COLONOSCOPY FLX DX W/COLLJ SPEC WHEN PFRMD 08-08-14 INCISION AND DRAINAGE PILONIDAL CYST SIMPLE MASTECTOMY, PARTIAL 08-18-14 RIGHT PERQ BREAST LOC DEVICE PLACEMT 1ST LESIO US IMAG 08/16/14 U/S right axillary marking clip placement REMOVAL OF KIDNEY STONE TOTAL ABDOMINAL HYSTERECT W/WO RMVL TUBE OVARY Hysterectomy, TACO FAMILY HISTORY Problem Relation Age of Onset Heart Mother Cancer Father LEUKEMIA Diabetes Father other (dementia) Sister Diabetes Daughter other (neuropathy) Daughter Social History Tobacco Use Smoking status: Never Smokeless tobacco: Never Vaping Use Vaping status: Never Used Substance Use Topics Alcohol use: No Drug use: No Objective BP 136/78 Pulse 75 Temp 36.7 ?C (98.1 ?F) Resp 20 Wt 87 kg (191 lb 12.8 oz) SpO2 100% BMI 35.08 kg/m? Physical Exam Vitals reviewed. Exam conducted with a watch commander present (Kassidy ARTHUR). Constitutional: Appearance: Normal appearance. HENT: Head: Normocephalic and atraumatic. Cardiovascular: Rate and Rhythm: Normal rate and regular rhythm. Heart sounds: Normal heart sounds. Pulmonary: Effort: Pulmonary effort is normal. Breath sounds: Normal breath sounds. Genitourinary: Exam position: Lithotomy position. Comments: Patient does have some razor burn to the mons pubis area. No abnormal discharge in the vaginal canal. No bleeding. Musculoskeletal: Cervical back: Neck supple. Skin: General: Skin is warm and dry. Neurological: Mental Status: She is alert. Assessment and Plan ASSESSMENT/PLAN: 1. Acute UTI - ICD9: 599.0, ICD10: N39.0 (primary diagnosis) acute - UA positive for francois esterase, hematuria, and nitrates - Send urine for culture - Begin treatment with Macrobid 100 mg BID for 5 days - - UA DIP, URINE (POC) - URINE CULTURE 2. Screening for STD (sexually transmitted disease) - ICD9: V74.5, ICD10: Z11.3 Will treat based on swab results. - GONORRHEA/CHLAMYDIA NAAT - BACTERIAL VAGINOSIS NAAT - ALBA/TRICHOMONAS NAAT 3. Vaginal irritation - ICD9: 623.9, ICD10: N89.8 Given Mycolog cream for irritation. Torrey Dawson PA-C Allergies As of Date: 05/10/2024 Noted Allergy Reaction ELIQUIS (APIXABAN) 03/03/2022 7 - Swelling 10 - Anaphylaxis Comments: swelling everywhere including lips on mouth AMPICILLIN 08/11/2005 2 - Rash 9 - Itching XARELTO (RIVAROXABAN) 03/17/2022 7 - Swelling Date Reviewed: 05/10/2024 Reviewed by: Kassidy Dial LPN - Fully Assessed Reaso (more content not included)... Normal [facility] UA DIP, URINE (POC)on 2023 BILIRUBIN UA (POCT) Negative Negative [facility] CLARITY UA (POCT) Cloudy [facility] COLOR UA (POCT) Dark yellow [facility] GLUCOSE UA (POCT) Negative Negative mg/dL [facility] Hemoglobin Ql (U) Large Abnormal Negative [facility] Interpretation and review of laboratory results Abnormal [facility] KETONE UA (POCT) Negative Negative mg/dL [facility] LEUKOCYTES UA (POCT) Trace Abnormal Negative [facility] NITRITE UA (POCT) Positive Abnormal Negative [facility] PH UA (POCT) 5.5 4.5 - 8.0 [facility] Protein Ql (U) >=300 Abnormal Negative mg/dL [facility] SPECIFIC GRAVITY UA (POCT) 1.025 1.005 - 1.030 [facility] UROBILINOGEN UA (POCT) 0.2 Normal E.U./dL [facility] Location:[address], [address] [place] [address] POINT OF CARE [facility] XR Chest PA and Lateralon IMPRESSION: No acute radiographic abnormality. Roll Tender: PSCB Transcribe Date/Time: Nov 18 2023 11:20A Dictated by : ELLI BAUM MD This examination was interpreted and the report reviewed and electronically signed by: ELLI BAUM MD on Nov 18 2023 11:21AM [facility] DIVISION OF RADIOLOGY * * *Final Report* * * DATE OF EXAM: Nov 18 2023 10:51AM [id number] - XR CHEST 2V FRONTAL/LAT / PROCEDURE REASON: Acute cough * * * * Physician Interpretation * * * * EXAMINATION: CHEST RADIOGRAPH (2 VIEW FRONTAL & LATERAL) CLINICAL HISTORY: Acute cough MQ: XC2_6 EXAM DATE/TIME: 11/18/2023 10:51 AM COMPARISON: Chest x-ray dated January 02, 2017 RESULT: Lines, tubes, and devices: None. Lungs and pleura: No consolidation. No lung mass. No pleural effusion. No pneumothorax. Cardiomediastinal silhouette: Normal cardiomediastinal silhouette. Bones and soft tissues: Degenerative changes are present within the thoracic spine. Right chest wall surgical clips. DIVISION OF RADIOLOGY Provider, [facility] Caroline alves [place] - 11/18/2023 * * *Final Report* * * DATE OF EXAM: Nov 18 2023 10:51AM [id number] - XR CHEST 2V FRONTAL/LAT / PROCEDURE REASON: Acute cough * * * * Physician Interpretation * * * * EXAMINATION: CHEST RADIOGRAPH (2 VIEW FRONTAL & LATERAL) CLINICAL HISTORY: Acute cough MQ: XC2_6 EXAM DATE/TIME: 11/18/2023 10:51 AM COMPARISON: Chest x-ray dated January 02, 2017 RESULT: Lines, tubes, and devices: None. Lungs and pleura: No consolidation. No lung mass. No pleural effusion. No pneumothorax. Cardiomediastinal silhouette: Normal cardiomediastinal silhouette. Bones and soft tissues: Degenerative changes are present within the thoracic spine. Right chest wall surgical clips. IMPRESSION IMPRESSION: No acute radiographic abnormality. Roll Tender: AAKASH Transcribe Date/Time: Nov 18 2023 11:20A Dictated by : ELLI BAUM MD This examination was interpreted and the report reviewed and electronically signed by: ELLI BAUM MD on Nov 18 2023 11:21AM EST [facility] Radiology Study observation (narrative) [facility] XR Chest PA and LateralOrder ed By: Ccf Provider on 11-18-2023 [facility] BACTERIAL VAGINOSIS NAATon 0 10-22-2023 Interpretation and review of laboratory results Normal [facility] Lactobacillus crispatus+gasseri+j ensenii + Gardnerella vaginalis + Atopobium vaginae rRNA RADHA+probe Ql (Vag fld) Negative Negative for bacterial vaginosis [facility] ALBA/TRICHOMONAS NAATon 0 10-22-2023 C. glabrata RNA RADHA+probe Ql (Vag fld) Negative Negative for Alba glabrata [facility] Alba sp DNA RADHA+probe Ql (Vag fld) Positive Abnormal Negative for Alba species [facility] Interpretation and review of laboratory results Abnormal [facility] T. vaginalis DNA RADHA+probe Ql (Unsp spec) Negative Negative for Trichomonas vaginalis by amplification [facility] UA DIP, URINE (POC)on 2023 BILIRUBIN UA (POCT) Negative Negative [facility] CLARITY UA (POCT) Clear [facility] COLOR UA (POCT) Yellow [facility] GLUCOSE UA (POCT) Negative Negative mg/dL [facility] Hemoglobin Ql (U) Negative Negative [facility] KETONE UA (POCT) Negative Negative mg/dL [facility] LEUKOCYTES UA (POCT) Negative Negative [facility] NITRITE UA (POCT) Negative Negative [facility] PH UA (POCT) 5.5 4.5 - 8.0 [facility] Protein Ql (U) Negative Negative mg/dL [facility] SPECIFIC GRAVITY UA (POCT) 1.025 1.005 - 1.030 [facility] UROBILINOGEN UA (POCT) 0.2 Normal E.U./dL [facility] Location:[facility], [address] [place] [address], [place], [place], [id number] [place] [address] POINT OF CARE [facility] DBT Breast - left diagnostic for implanton 09-30-2023 [facility] US Breast - left limitedon 0 09-30-2023 [facility] CBC panel Auto (Bld)on 05-22 Erythrocyte distribution width (RBC) [Ratio] 12.6 % 11.5 - 15.0 % [facility] Hematocrit (Bld) [Volume fraction] 42.8 % 36.0 - 46.0 % [facility] Hemoglobin (Bld) [Mass/Vol] 14.0 g/dL 11.5 - 15.5 g/dL [facility] MCH (RBC) [Entitic mass] 31.3 pg 26.0 - 34.0 pg [facility] MCHC (RBC) [Mass/Vol] 32.7 g/dL 30.5 - 36.0 g/dL [facility] MCV (RBC) [Entitic vol] 95.7 fL 80.0 - 100.0 fL [facility] Nucleated RBC (Bld) [#/Vol] <0.01 k/uL [facility] Platelet mean volume (Bld) [Entitic vol] 11.6 fL 9.0 - 12.7 fL [facility] Platelets (Bld) [#/Vol] 256 10*3/uL 150 - 400 k/uL [facility] RBC (Bld) [#/Vol] 4.47 10*6/uL 3.90 - 5.20 m/uL [facility] WBC (Bld) [#/Vol] 8.44 10*3/uL 3.70 - 11.00 k/u L [facility] No Panel Informationon 09-03 [facility] Absolute lymphocyte counton 03-02-2022 Lymphocytes Auto (Unsp spec) [#/Vol] 1.96 10*3/uL 0.83-4.51 [facility] Work Phone: Basophil percentageon 2021 Basophils/100 WBC (Bld) 0.6 % 0-1 [facility] Work Phone: Bilirubin [Mass/Vol] 0.40 mg/dL 0.20-1.00 [facility] Work Phone: Comment on above: For patients on eltr ombopag therapy, use of Dimension [place] TBIL is not recommended. Chloride [Moles/Vol] 108 mmol/L 98-107 [facility] Work Phone: Eosinophils/100 WBC (Bld) 5.5 % 0-5 [facility] Work Phone: Glucose [Mass/Vol] 93 mg/dL 74-106 [facility] Work Phone: Neutrophils (Bld) [#/Vol] 5.0 10*3/uL 2.0-7.7 [facility] Work Phone: Neutrophils/100 WBC (Bld) 62.7 % 47-70 [facility] Work Phone: Potassium [Moles/Vol] 3.6 mmol/L 3.5-5.1 [facility] Work Phone: Protein [Mass/Vol] 7.6 g/dL 6.4-8.2 [facility] Work Phone: Sodium [Moles/Vol] 143 mmol/L 136-145 [facility] Work Phone: WBC (Bld) [#/Vol] 8.0 10*3/uL 4.4-11.0 [facility] Work Phone: Blood erythrocytes count (nu mber/volume)on 03-02-2022 RBC (Bld) [#/Vol] 4.56 10*6/uL 4.2-5.4 [facility] Work Phone: Blood hemoglobin measurement (mass/volume)on 03-02-2022 Hemoglobin (Bld) [Mass/Vol] 14.3 g/dL 12.0-15.0 [facility] Work Phone: Blood lymphocytes/100 leukoc yteson 03-02-2022 Lymphocytes/100 WBC (Bld) 24.5 % 19-41 [facility] Work Phone: Blood monocytes/100 leukocyt eson 03-02-2022 Monocytes/100 WBC (Bld) 6.6 % 0-10 [facility] Work Phone: Blood platelet mean volumeon 03-02-2022 Platelet mean volume (Bld) [Entitic vol] 11.1 fL 6.2-12.0 [facility] Work Phone: Determination of erythrocyte mean corpuscular volume (MCV)on 03-02-2022 MCV (RBC) [Entitic vol] 95.6 fL 81-99 [facility] Work Phone: Hematocrit Auto (Bld) [Volum e fraction]on 03-02-2022 Hematocrit (Bld) [Volume fraction] 43.6 % 37-47 [facility] Work Phone: INR in Blood by Coagulation assayon 03-02-2022 INR Coag (Bld) [Relative time] 1.1 {INR} [facility] Work Phone: Laboratory - Chemistry and C hemistry - challengeon 03-02-2022 ALP [Catalytic activity/Vol] 86 U/L 45-117 [facility] Work Phone: ALT [Catalytic activity/Vol] 18 U/L 13-56 [facility] Work Phone: CO2 [Moles/Vol] 27.0 mmol/L 21.0-32.0 [facility] Work Phone: Globulin (S) [Mass/Vol] 3.9 g/dL 2.2-4.2 [facility] Work Phone: Urea nitrogen/Creatinine [Mass ratio] 9.8 mg/mg 10-20 [facility] Work Phone: Laboratory - Coagulationon 0 03-02-2022 aPTT Coag (Bld) [Time] 31.7 s 24.1-36.2 [facility] Work Phone: PT Coag (PPP) [Time] 13.5 s 11.7-14.9 [facility] Work Phone: Laboratory - Hematology and Cell countson 03-02-2022 Erythrocyte distribution width (RBC) [Entitic vol] 47.2 fL 35.1-43.9 [facility] Work Phone: Erythrocyte distribution width (RBC) [Ratio] 13.2 % 11.6-14.6 [facility] Work Phone: Immature granulocytes/100 WBC (Bld) 0.100 % 0.0-0.9 [facility] Work Phone: Comment on above: IG% - Immature Granu locytes (promyelocytes, myelocytes and metamyelocytes) > 1% indicates that a LEFT SHIFT is Present. MCH (RBC) [Entitic mass] 31.4 pg 27.0-32.0 [facility] Work Phone: Nucleated RBC/100 WBC (Bld) [Ratio] 0 % 0-5 [facility] Work Phone: MCHC Auto (RBC) [Mass/Vol]on 03-02-2022 MCHC (RBC) [Mass/Vol] 32.8 g/dL 32-36 [facility] Work Phone: No Panel Informationon 03-02 Estimated Creatinine Clearance Calc 43.72 ml/min [facility] Work Phone: Estimated GFR (MDRD) Amer 77 mL/min >60 [facility] Work Phone: Comment on above: GFR Calc Estimated GFR (MDRD) Non-Af Amer 64 mL/min >60 [facility] Work Phone: Comment on above: Non- GFR Calc Platelets bldon 03-02-2022 Platelets (Bld) [#/Vol] 267 10*3/uL 150-450 [facility] Work Phone: Serum or plasma albumin iwona urement (mass/volume)on 03-02-2022 Albumin [Mass/Vol] 3.7 g/dL 3.2-5.0 [facility] Work Phone: Serum or plasma albumin/glob ulin mass ratioon 03-02-2022 Albumin/Globulin [Mass ratio] 0.9 {ratio} 0.9-2.4 [facility] Work Phone: Serum or plasma calcium iwona urement (mass/volume)on 03-02-2022 Calcium [Mass/Vol] 9.2 mg/dL 8.5-10.1 [facility] Work Phone: Serum or plasma creatinine m easurement (mass/volume)on 03-02-2022 Creatinine [Mass/Vol] 0.92 mg/dL 0.55-1.02 [facility] Work Phone: Comment on above: The validity of the calculated GFR & GFRAA in patients over 70 years has not been determined. Clinical correlation is essential. Serum or plasma urea nitroge n measurement (mass/volume)on 03-02-2022 Urea nitrogen [Mass/Vol] 9 mg/dL - [facility] Work Phone: Thin prep Papanicolaou smear with manual screeningon 03-02-2022 Thin prep Papanicolaou smear with manual screening 16 U/L 15-37 [facility] Work Phone: Thin prep Papanicolaou smear with manual screening 8 5-15 [facility] Work Phone: US LEG VEIN DVT UNL VAS LABo n 02-07-2022 [facility] UA DIP, URINE (POC)on 2021 BILIRUBIN UA (POCT) Small Abnormal Negative [facility] CLARITY UA (POCT) Clear [facility] COLOR UA (POCT) Dark yellow [facility] GLUCOSE UA (POCT) Negative Negative mg/dL [facility] HEMOGLOBIN/BLOOD UA (POCT) Trace-intact Abnormal Negative [facility] KETONE UA (POCT) Negative Negative mg/dL [facility] LEUKOCYTES UA (POCT) Trace Abnormal Negative [facility] NITRITE UA (POCT) Negative Negative [facility] PH UA (POCT) 5.5 4.5 - 8.0 [facility] Protein Ql (U) Trace Abnormal Negative mg/dL [facility] SPECIFIC GRAVITY UA (POCT) >=1.030 1.005 - 1.030 [facility] UROBILINOGEN UA (POCT) 0.2 E.U./dL Normal E.U./dL [facility] BARBARA SCREENINGon 09-02-2021 [facility] CNOVon 11-02-2018 CNTERESA Office Visit (DELILAHURFL ) ILENE SHAW ([id number]) 1950 F Date Time Provider Department 11/02/18 10:30 AM DEEP SHANE During your visit today, we recorded the following information about you: Deep Shane DO, MBA 11/02/2018 11:31 AM Signed ?? [facility] [place] [facility] UROLOGY [facility] [place] LOCATION: [address] [place] [address] CYSTOSCOPY PROCEDURE NOTE: Ilene Shaw is a 68 year old female who presents with bladder nodule for a cystoscopy. Pt ID verified with patient: Yes Procedure verified with patient: Yes Procedure confirmed with physician and direct support professional home health: Yes Sign In: History and Physical Exam reviewed and is unchanged. Primary Diagnosis: bladder nodule Informed Consent Discussed: Yes. Risks, benefits, alternatives and personnel discussed with patient who consents to proceed. Sign in Communication: Completed Time Out: Team Confirms the Correct Patient, Correct Procedure; Cystoscopy, Correct Site and Site Marking, Correct Position (if applicable). Affirmation of Time Out: Yes Sign Out: Sign Out Discussion: Completed Physician: Deep Shane DO, MBA A urinalysis was performed revealing no evidence of infection. The benefits, risks, alternatives of the cystoscopy procedure and personnel were discussed with the patient. The verbal consent was obtained and the patient agrees to proceed. Procedure: The patient was placed on the procedure table in the supine position and prepped and draped in the usual sterile fashion. 2% Lidocaine Jelly was placed per urethra as an anesthetic in the standard fashion. Once adequate local anesthesia was achieved, the tip of the flexible cystoscope was carefully placed into the urethra under direct visual guidance. The scope was negotiated per urethra with no evidence of stricture into the bladder. Careful srivastava endoscopy was carried out. The posterior, superior and lateral sánchez and dome of the bladder were all well visualized and the scope was retroflexed upon itself. The findings were consistent with small round area 9 o'clock- bladder neck. Benign appearing and smooth. At the conclusion of the procedure, the flexible cystoscope was removed atraumatically. The patient tolerated the procedure without complications. Patient was given standard post-procedure instructions, and was directed to complete the course of oral antibiotics and increase oral fluid intake as directed. ASSESSMENT/PLAN: Small bladder nodule No hematuria Urine cytology negative Biopsy offered, but very benign appearing Consider surveillance of lesion in 1 year with cysto TERRELL evaluation with Dr. Rodrigues or Dr. Hankins - consider mid-urethral sling Deep Shane DO, MBA Referring Provider: DEEP SHANE [[id number]] Allergies As of Date: 11/02/2018 Noted Allergy Reaction AMPICILLIN 08/11/2005 2 - Rash 9 - Itching Date Reviewed: 11/02/2018 Reviewed by: Deep Shane - Fully Assessed Reason for Visit: Procedure [88] Reason For Visit History Recorded Primary Visit Diagnosis:Bladder mass [N32.89] Other Visit Diagnosis:Stress incontinence in female [N39.3] Order(s):[] ciprofloxacin HCl 500 mg tab(s) (CIPRO)Disp: Rfl: Prescriptions as of 11/02/2018 Sig: SURGICAL LUBRICANT JELLY TOPI* For MRI Female Pelvis, MRI de* ERGOCALCIFEROL (VITAMIN D2) 5* Take 1 capsule by mouth once * ESCITALOPRAM 10 MG TABLET Take 10 mg by mouth once kameron* ALPRAZOLAM 0.25 MG TABLET Take 1 tablet by mouth once d* Patient taking differently: Take 0.25 mg by mouth daily a* Problem List As Of Date 11/02/2018 Noted Resolved ADJUSTMENT DISORDER WITH DEPRESSED MOOD [F43.21] Chronic diarrhea [K52.9] INVALID FOR* Hyperlipidemia LDL goal < 130 [E78.5] INVALID FOR* Thyroid nodule [E04.1] INVALID FOR* Special screening for malignant neoplasms, colo*INVALID FOR* Lump or mass in breast [N63.0] INVALID FOR*08/23/2018 Breast cancer (HCC) [C50.919] INVALID FOR* ER+ (estrogen receptor positive status) [Z17.0] INVALID FOR* Vitamin D deficiency [E55.9] INVALID FOR* Breast cancer, right (HCC) [C50.911] INVALID FOR* Invasive ductal carcinoma of right breast in fe*INVALID FOR* Stress incontinence in female [N39.3] INVALID FOR* S/P TACO-BSO (total abdominal hysterectomy and b*INVALID FOR* More... Acute thromboembolism of iliac vein, right (HCC*INVALID FOR* Prescriptions ordered this encounter Disp Refills Start End CIPROFLOXACIN 500 MG TABLET 11/02/2018 11/02/2018 Route: ORAL Disposition: Return in about 1 year (around 11/03/2019). Follow-up and Disposition History Recorded Letter Text Encounter Status:Closed by DEEP SHANE on 11/02/18 [facility] PROCEDUREon 11-02-2018 Protein mass conc HNO ID: [id number] Author: Deep Shane Service: ? Author Type: Physician Type: Procedures Filed: 11/02/2018 11:31 AM Note Text: ?? [facility] [place] [facility] LOCATION: [address] [place] [address] CYSTOSCOPY PROCEDURE NOTE: Ilene Shaw is a 68 year old female who presents with bladder nodule for a cystoscopy. Pt ID verified with patient: Yes Procedure verified with patient: Yes Procedure confirmed with physician and direct support professional home health: Yes Sign In: History and Physical Exam reviewed and is unchanged. Primary Diagnosis: bladder nodule Informed Consent Discussed: Yes. Risks, benefits, alternatives and personnel discussed with patient who consents to proceed. Sign in Communication: Completed Time Out: Team Confirms the Correct Patient, Correct Procedure; Cystoscopy, Correct Site and Site Marking, Correct Position (if applicable). Affirmation of Time Out: Yes Sign Out: Sign Out Discussion: Completed Physician: Deep Shane DO, MBA A urinalysis was performed revealing no evidence of infection. The benefits, risks, alternatives of the cystoscopy procedure and personnel were discussed with the patient. The verbal consent was obtained and the patient agrees to proceed. Procedure: The patient was placed on the procedure table in the supine position and prepped and draped in the usual sterile fashion. 2% Lidocaine Jelly was placed per urethra as an anesthetic in the standard fashion. Once adequate local anesthesia was achieved, the tip of the flexible cystoscope was carefully placed into the urethra under direct visual guidance. The scope was negotiated per urethra with no evidence of stricture into the bladder. Careful srivastava endoscopy was carried out. The posterior, superior and lateral sánchez and dome of the bladder were all well visualized and the scope was retroflexed upon itself. The findings were consistent with small round area 9 o'clock- bladder neck. Benign appearing and smooth. At the conclusion of the procedure, the flexible cystoscope was removed atraumatically. The patient tolerated the procedure without complications. Patient was given standard post-procedure instructions, and was directed to complete the course of oral antibiotics and increase oral fluid intake as directed. ASSESSMENT/PLAN: Small bladder nodule No hematuria Urine cytology negative Biopsy offered, but very benign appearing Consider surveillance of lesion in 1 year with cysto TERRELL evaluation with Dr. Rodrigues or Dr. Hankins - consider mid-urethral sling Deep Shane DO, MBA [facility] Vital Signs Date Time Vital Sign Value Performing Clinician Susanna tolentino 01-03-2025 15:04-0400 Body height 157.[address] Jennifer Santos MD Work Phone: [facility] 01-03-2025 15:04-0400 Body mass index (BMI) [Ratio] 35.6 kg/m2 Dr. Jennifer Santos MD Work Phone: 9(526)942-359453 [place] [address] 01-03-2025 15:04-0400 Body temperature 98.2 [degF] Dr. Jennifer Santos MD Work Phone: 3(223)776-180705 [place] [address] 01-03-2025 15:04-0400 Body weight 88.[address] Jennifer Santos MD Work Phone: 0(326)199-594505 [place] [address] 01-03-2025 15:04-0400 Diastolic blood pressure 84 mm[Hg] Dr. Jennifer Santos MD Work Phone: 6(905)179-890805 [place] [address] 01-03-2025 15:04-0400 Heart rate 94 /min Dr. Jennifer Santos MD Work Phone: 7(782)256-009305 [place] [address] 01-03-2025 15:04-0400 Respiratory rate 16 /min Dr. Jennifer Santos MD Work Phone: 1(367)781-484505 [place] [address] 01-03-2025 15:04-0400 SaO2% (BldA) [Mass fraction] 97 % Dr. Jennifer Santos MD Work Phone: 2(981)730-205205 [place] [address] 01-03-2025 15:04-0400 Systolic blood pressure 130 mm[Hg] Dr. Jennifer Santos MD Work Phone: 2(657)096-545505 [place] [address] 05-10-2024 12:44-0500 Body mass index (BMI) [Ratio] 35.08 kg/m2 Torrey Athy PA-C Work Phone: 9(592)269-649980 [place] [address] 05-10-2024 12:44-0500 Body temperature 98.1 [degF] Torrey Athy PA-C Work Phone: 1(474)571-704480 [place] [address] 05-10-2024 12:44-0500 Body weight 87 kg Torrey Athy PA-C Work Phone: 9(702)752-546580 [place] [address] 05-10-2024 12:44-0500 Diastolic blood pressure 78 mm[Hg] Torrey Athy PA-C Work Phone: 5(829)514-909380 [place] [address] 05-10-2024 12:44-0500 Heart rate 75 /min Torrey Athy PA-C Work Phone: [facility] 05-10-2024 12:44-0500 Respiratory rate 20 /min Torrey Athy PA-C Work Phone: [facility] 05-10-2024 12:44-0500 SaO2% (BldA) [Mass fraction] 100 % Torrey Athy PA-C Work Phone: [facility] 05-10-2024 12:44-0500 Systolic blood pressure 136 mm[Hg] Torrey Maresy PA-C Work Phone: [facility] 11-17-2023 18:23-0400 Body mass index (BMI) [Ratio] 35.12 kg/m2 Elaine Praisler-Wood DOOR FRAME ASSEMBLER MACHINE.INSIDE SALES ASSOCIATE Work Phone: [facility] 11-17-2023 18:23-0400 Body temperature 99.1 [degF] Elaine Praisler-Wood DOOR FRAME ASSEMBLER MACHINE.INSIDE SALES ASSOCIATE Work Phone: [facility] 11-17-2023 18:23-0400 Body weight 87.1 kg Elaine Praisler-Wood DOOR FRAME ASSEMBLER MACHINE.INSIDE SALES ASSOCIATE Work Phone: [facility] 11-17-2023 18:23-0400 Diastolic blood pressure 80 mm[Hg] Elaine Praisler-Wood DOOR FRAME ASSEMBLER MACHINE.INSIDE SALES ASSOCIATE Work Phone: [facility] 11-17-2023 18:23-0400 Heart rate 98 /min Elaine Praisler-Wood DOOR FRAME ASSEMBLER MACHINE.INSIDE SALES ASSOCIATE Work Phone: [facility] 11-17-2023 18:23-0400 Respiratory rate 18 /min Elaine Praisler-Wood DOOR FRAME ASSEMBLER MACHINE.INSIDE SALES ASSOCIATE Work Phone: [facility] 11-17-2023 18:23-0400 SaO2% (BldA) [Mass fraction] 94 % Elaine Praisler-Wood DOOR FRAME ASSEMBLER MACHINE.INSIDE SALES ASSOCIATE Work Phone: [facility] 11-17-2023 18:23-0400 Systolic blood pressure 128 mm[Hg] Elaine Praisler-Wood DOOR FRAME ASSEMBLER MACHINE.INSIDE SALES ASSOCIATE Work Phone: [facility] 10-21-2023 12:29-0400 Body mass index (BMI) [Ratio] 35.52 kg/m2 Torrey Athy PA-C Work Phone: [facility] 10-21-2023 12:29-0400 Body temperature 98.91 [degF] Torrey Athy PA-C Work Phone: [facility] 10-21-2023 12:29-0400 Body weight 88.1 kg Torrey Athy PA-C Work Phone: [facility] 10-21-2023 12:29-0400 Diastolic blood pressure 82 mm[Hg] Torrey Athy PA-C Work Phone: [facility] 10-21-2023 12:29-0400 Heart rate 80 /min Torrey Athy PA-C Work Phone: [facility] 10-21-2023 12:29-0400 Respiratory rate 18 /min Torrey Athy PA-C Work Phone: [facility] 10-21-2023 12:29-0400 SaO2% (BldA) [Mass fraction] 97 % Torrey Athy PA-C Work Phone: [facility] 10-21-2023 12:29-0400 Systolic blood pressure 132 mm[Hg] Torrey Athy PA-C Work Phone: [facility] 08-28-2023 18:30-0400 Body temperature 96.98 [degF] LENA JIMENEZ MD [facility] 08-28-2023 18:30-0400 Body weight 89.9 kg LENA JIMENEZ MD [facility] 08-28-2023 18:30-0400 Diastolic Blood Pressure Non-Invasive 88 mm[Hg] LENA JIMENEZ MD [facility] 08-28-2023 18:30-0400 Heart rate 73 /min LENA JIMENEZ MD [facility] 08-28-2023 18:30-0400 Respiratory rate 18 /min LENA JIMENEZ MD [facility] 08-28-2023 18:30-0400 Systolic Blood Pressure Non-Invasive 159 mm[Hg] LENA JIMENEZ MD [facility] 08-28-2023 16:43-0400 Body height 157.48 cm [facility] 08-28-2023 16:43-0400 Body temperature 95.6 [degF] [facility] 08-28-2023 16:43-0400 Diastolic blood pressure 83 mm[Hg] [facility] 08-28-2023 16:43-0400 Heart rate 88 /min [facility] 08-28-2023 16:43-0400 Respiratory rate 14 /min [facility] 08-28-2023 16:43-0400 SaO2% (BldA) [Mass fraction] 98 % [facility] 08-28-2023 16:43-0400 Systolic blood pressure 151 mm[Hg] [facility] 05-27-2023 01:48-0500 Heart rate 89 /min [facility] 05-27-2023 01:48-0500 Respiratory rate 18 /min [facility] 05-27-2023 01:48-0500 SaO2% (BldA) [Mass fraction] 97 % [facility] 05-27-2023 01:28-0500 Diastolic blood pressure 79 mm[Hg] [facility] 05-27-2023 01:28-0500 Systolic blood pressure 153 mm[Hg] [facility] 05-26-2023 23:40-0500 Body height 157.48 cm [facility] 05-26-2023 23:40-0500 Body mass index (BMI) [Ratio] 35.1 kg/m2 [facility] 05-26-2023 23:40-0500 Body temperature 97.3 [degF] [facility] 05-26-2023 23:40-0500 Body weight 87.08 kg [facility] 05-21-2023 19:08-0500 Body temperature 96.91 [degF] Rolf Burger MD Work Phone: [facility] 05-21-2023 19:08-0500 Body weight 87.5 kg Rolf Burger MD Work Phone: [facility] 05-21-2023 19:08-0500 Diastolic blood pressure 86 mm[Hg] Rolf Burger MD Work Phone: [facility] 05-21-2023 19:08-0500 Heart rate 92 /min Rolf Burger MD Work Phone: [facility] 05-21-2023 19:08-0500 Respiratory rate 16 /min Rolf Burger MD Work Phone: [facility] 05-21-2023 19:08-0500 SaO2% (BldA) [Mass fraction] 99 % Rolf Burger MD Work Phone: [facility] 05-21-2023 19:08-0500 Systolic blood pressure 136 mm[Hg] Rolf Burger MD Work Phone: [facility] 05-21-2023 13:40-0500 Body temperature 98.71 [degF] Yaakov Richter MD Work Phone: [facility] 05-21-2023 13:40-0500 Body weight 87.36 kg Yaakov Richter MD Work Phone: [facility] 05-21-2023 13:40-0500 Diastolic blood pressure 82 mm[Hg] Yaakov Richter MD Work Phone: [facility] 05-21-2023 13:40-0500 Heart rate 80 /min Yaakov Richter MD Work Phone: [facility] 05-21-2023 13:40-0500 Respiratory rate 18 /min Yaakov Richter MD Work Phone: [facility] 12-07-2023 13:40-0500 SaO2% (BldA) [Mass fraction] 99 % Yaakov Richter MD Work Phone: [facility] 05-21-2023 13:40-0500 Systolic blood pressure 138 mm[Hg] Yaakov Richter MD Work Phone: [facility] 05-07-2023 22:45-0500 Body height 157.5 cm MISHEL PEREZ DO [facility] 05-07-2023 22:45-0500 Body temperature 98.42 [degF] MISHEL PEREZ DO [facility] 05-07-2023 22:45-0500 Body weight 84 kg MISHEL MCCRARYT [facility] 05-07-2023 22:45-0500 Diastolic Blood Pressure Non-Invasive 88 mm[Hg] MISHEL MCCRARYT [facility] 05-07-2023 22:45-0500 Heart rate 83 /min MISHEL PEREZ DO [facility] 05-07-2023 22:45-0500 Respiratory rate 18 /min MISHEL PEREZ DO [facility] 05-07-2023 22:45-0500 Systolic Blood Pressure Non-Invasive 175 mm[Hg] MISHEL PEREZ DO [facility] 05-16-2022 11:39-0500 Body height 157.5 cm Jennifer Santos MD Work Phone: [facility] 05-16-2022 11:39-0500 Body temperature 97.7 [degF] Jennifer Santos MD Work Phone: [facility] 05-16-2022 11:39-0500 Body weight 83.92 kg Jennifer Santos MD Work Phone: [facility] 05-16-2022 11:39-0500 Diastolic blood pressure 76 mm[Hg] Jennifer Santos MD Work Phone: [facility] 05-16-2022 11:39-0500 Heart rate 81 /min Jennifer Santos MD Work Phone: [facility] 05-16-2022 11:39-0500 Respiratory rate 12 /min Jennifer Santos MD Work Phone: [facility] 05-16-2022 11:39-0500 SaO2% (BldA) [Mass fraction] 96 % Jennifer Santos MD Work Phone: [facility] 05-16-2022 11:39-0500 Systolic blood pressure 124 mm[Hg] Jennifer Santos MD Work Phone: [facility] 03-17-2022 14:42-0400 Body weight 85.73 kg Arpit Beck MD Work Phone: [facility] 03-17-2022 14:42-0400 Diastolic blood pressure 74 mm[Hg] Arpit Beck MD Work Phone: [facility] 03-17-2022 14:42-0400 Heart rate 95 /min Arpit Beck MD Work Phone: [facility] 03-17-2022 14:42-0400 Respiratory rate 16 /min Arpit Beck MD Work Phone: [facility] 03-17-2022 14:42-0400 SaO2% (BldA) [Mass fraction] 98 % Arpit Beck MD Work Phone: [facility] 03-17-2022 14:42-0400 Systolic blood pressure 132 mm[Hg] Arpit Beck MD Work Phone: [facility] 03-03-2022 15:13-0400 Body height 157.5 cm Jennifer Santos MD Work Phone: [facility] 03-03-2022 15:13-0400 Body temperature 99.19 [degF] Jennifer Santos MD Work Phone: [facility] 03-03-2022 15:13-0400 Body weight 85.73 kg Jennifer Santos MD Work Phone: [facility] 03-03-2022 15:13-0400 Diastolic blood pressure 70 mm[Hg] Jennifer Santos MD Work Phone: [facility] 03-03-2022 15:13-0400 Heart rate 90 /min Jennifer Santos MD Work Phone: [facility] 03-03-2022 15:13-0400 Respiratory rate 12 /min Jennifer Santos MD Work Phone: [facility] 03-03-2022 15:13-0400 SaO2% (BldA) [Mass fraction] 95 % Jennifer Santos MD Work Phone: [facility] 03-03-2022 15:13-0400 Systolic blood pressure 126 mm[Hg] Jennifer Santos MD Work Phone: [facility] 03-02-2022 22:56-0400 Diastolic blood pressure 83 mm[Hg] Dr. Jennifer Santos Work Phone: [facility] Work Phone: 03-02-2022 22:56-0400 Heart rate 74 /min Dr. Jennifer Santos Work Phone: [facility] Work Phone: 03-02-2022 22:56-0400 Respiratory rate 16 /min Dr. Jennifer Snatos Work Phone: [facility] Work Phone: 03-02-2022 22:56-0400 SaO2% (BldA) [Mass fraction] 98 % Dr. Jennifer Santos Work Phone: [facility] Work Phone: 03-02-2022 22:56-0400 Systolic blood pressure 180 mm[Hg] Dr. Jennifer Santos Work Phone: [facility] Work Phone: 03-02-2022 18:26-0400 Body height 157.[address] Jennifer Santos Work Phone: [facility] Work Phone: 03-02-2022 18:26-0400 Body mass index (BMI) [Ratio] 35.2 kg/m2 Dr. Jennifer Santos Work Phone: [facility] Work Phone: 03-02-2022 18:26-0400 Body temperature 97.8 [degF] Dr. Jennifer Santos Work Phone: [facility] Work Phone: 03-02-2022 18:26-0400 Body weight 87.[address] Jennifer Santos Work Phone: [facility] Work Phone: 02-18-2022 07:12-0400 Body height 160.02 cm [facility] Work Phone: 02-18-2022 07:12-0400 Body mass index (BMI) [Ratio] 33.8 kg/m2 [facility] Work Phone: 02-18-2022 07:12-0400 Body temperature 97.5 [degF] [facility] Work Phone: 02-18-2022 07:12-0400 Body weight 86.63 kg [facility] Work Phone: 02-18-2022 07:12-0400 Diastolic blood pressure 90 mm[Hg] [facility] Work Phone: 02-18-2022 07:12-0400 Heart rate 88 /min [facility] Work Phone: 02-18-2022 07:12-0400 Respiratory rate 18 /min [facility] Work Phone: 02-18-2022 07:12-0400 SaO2% (BldA) [Mass fraction] 99 % [facility] Work Phone: 02-18-2022 07:12-0400 Systolic blood pressure 186 mm[Hg] [facility] Work Phone: 02-07-2022 07:10-0400 Body temperature 98.2 [degF] Torrey Athy PA-C Work Phone: [facility] 02-07-2022 07:10-0400 Body weight 86.73 kg Torrey Athy PA-C Work Phone: [facility] 02-07-2022 07:10-0400 Diastolic blood pressure 76 mm[Hg] Torrey Athy PA-C Work Phone: [facility] 02-07-2022 07:10-0400 Heart rate 94 /min Torrey Athy PA-C Work Phone: [facility] 02-07-2022 07:10-0400 Respiratory rate 18 /min Torrey Athy PA-C Work Phone: [facility] 02-07-2022 07:10-0400 SaO2% (BldA) [Mass fraction] 97 % Torrey Athy PA-C Work Phone: [facility] 02-07-2022 07:10-0400 Systolic blood pressure 142 mm[Hg] Torrey Athy PA-C Work Phone: [facility] 01-25-2022 08:53-0400 Body temperature 96.8 [degF] Zee Romelia DOOR FRAME ASSEMBLER MACHINE.INSIDE SALES ASSOCIATE Work Phone: [facility] 01-25-2022 08:53-0400 Body weight 86.82 kg Zee Romelia DOOR FRAME ASSEMBLER MACHINE.INSIDE SALES ASSOCIATE Work Phone: [facility] 01-25-2022 08:53-0400 Diastolic blood pressure 102 mm[Hg] Zee Romelia DOOR FRAME ASSEMBLER MACHINE.INSIDE SALES ASSOCIATE Work Phone: [facility] 01-25-2022 08:53-0400 Heart rate 93 /min Zee Romelia DOOR FRAME ASSEMBLER MACHINE.INSIDE SALES ASSOCIATE Work Phone: [facility] 01-25-2022 08:53-0400 Respiratory rate 21 /min Zee Romelia DOOR FRAME ASSEMBLER MACHINE.INSIDE SALES ASSOCIATE Work Phone: [facility] 01-25-2022 08:53-0400 SaO2% (BldA) [Mass fraction] 96 % Zee Velozdm EDMONDSON.INSIDE SALES ASSOCIATE Work Phone: [facility] 01-25-2022 08:53-0400 Systolic blood pressure 160 mm[Hg] Zee Romeliadm EDMONDSON.INSIDE SALES ASSOCIATE Work Phone: [facility] 12-13-2021 13:19-0400 Body height 157.5 cm Natasha Millvale PA-C Work Phone: [facility] 12-13-2021 13:19-0400 Body temperature 98.01 [degF] Natasha Millvale PA-C Work Phone: [facility] 12-13-2021 13:19-0400 Body weight 87.54 kg Natasha Trevon PA-C Work Phone: [facility] 12-13-2021 13:19-0400 Diastolic blood pressure 68 mm[Hg] Natasha Trevon PA-C Work Phone: [facility] 12-13-2021 13:19-0400 Heart rate 101 /min Natasha Trevon PA-C Work Phone: [facility] 12-13-2021 13:19-0400 SaO2% (BldA) [Mass fraction] 98 % Natasha Trevon PA-C Work Phone: [facility] 12-13-2021 13:19-0400 Systolic blood pressure 112 mm[Hg] Natasha Millvale PA-C Work Phone: [facility] 12-03-2021 13:52-0400 Body height 154.9 cm Kodi Muniz MD Work Phone: [facility] 12-03-2021 13:52-0400 Body temperature 98.71 [degF] Kodi Muniz MD Work Phone: [facility] 12-03-2021 13:52-0400 Body weight 86.64 kg Kodi Muniz MD Work Phone: [facility] 12-03-2021 13:52-0400 Diastolic blood pressure 90 mm[Hg] Kodi Muniz MD Work Phone: [facility] 12-03-2021 13:52-0400 Heart rate 98 /min Kodi Muniz MD Work Phone: [facility] 12-03-2021 13:52-0400 SaO2% (BldA) [Mass fraction] 92 % Kodi Muniz MD Work Phone: [facility] 12-03-2021 13:52-0400 Systolic blood pressure 128 mm[Hg] Kodi Muniz MD Work Phone: [facility] 10-28-2021 09:49-0400 Body height 156.2 cm Zofia Donnelly DOOR FRAME ASSEMBLER MACHINE.INSIDE SALES ASSOCIATE Work Phone: [facility] 10-28-2021 09:49-0400 Body temperature 97.39 [degF] Zofia Donnelly DOOR FRAME ASSEMBLER MACHINE.INSIDE SALES ASSOCIATE Work Phone: [facility] 10-28-2021 09:49-0400 Body weight 87.77 kg Zofia Donnelly DOOR FRAME ASSEMBLER MACHINE.INSIDE SALES ASSOCIATE Work Phone: [facility] 10-28-2021 09:49-0400 Diastolic blood pressure 76 mm[Hg] Rice Donnelly DOOR FRAME ASSEMBLER MACHINE.INSIDE SALES ASSOCIATE Work Phone: [facility] 10-28-2021 09:49-0400 Heart rate 75 /min Rice Donnelly DOOR FRAME ASSEMBLER MACHINE.INSIDE SALES ASSOCIATE Work Phone: [facility] 10-28-2021 09:49-0400 Systolic blood pressure 139 mm[Hg] Rice Donnelly DOOR FRAME ASSEMBLER MACHINE.INSIDE SALES ASSOCIATE Work Phone: [facility] Encounters Encounter Date Encounter Type Care Provider Facility Start: 04-04-2025 ambulatory Bran Alston Facility:[facility] Start: 04-04-2025 End: 04-04-2025 Emergency department patient visit [facility] Facility:[facility] Start: 01-03-2025 End: 01-03-2025 Patient encounter procedure [facility] Work Phone: Start: 01-03-2025 End: 01-03-[address] Jennifer Santos MD Work Phone: [facility] Start: 11-29-2024 End: 12-20-2024 Admission to same day surgery center Jennifer Santos MD Work Phone: Ambulatory Surgery Comment on above: NG Tube Replacement (Patient is overdue for colorectal cancer screening since 08/08/2024. Please schedule open access colonoscopy. ) Start: 11-29-2024 End: 12-20-2024 ambulatory Jennifer Santos MD Work Phone: Ambulatory Surgery Start: 09-28-2024 End: 11-28-2024 Follow-up encounter Jennifer Santos MD Work Phone: [facility] [place] Start: 09-22-2024 End: 09-22-2024 ambulatory JENNIFER SANTOS Facility:[facility] Start: 09-22-2024 End: 09-22-2024 Subsequent hospital visit by physician Screen Mammo [facility] Comment on above: Encounter for screen ing mammogram for breast cancer [Z12.31] Start: 09-14-2024 End: 09-14-2024 Telephone encounter Jennifer Santos MD Work Phone: [facility] [place] Comment on above: Orders Start: 05-11-2024 End: 05-11-2024 Telephone encounter Torrey Dawson PA-C Work Phone: [facility] Comment on above: Results Start: 05-10-2024 End: 05-10-2024 ambulatory JENNIFER SANTOS Facility:[facility] Start: 05-10-2024 End: 05-10-2024 Patient encounter procedure Torrey Dawson PA-C Work Phone: [facility] Comment on above: Acute UTI (Primary D x); Screening for STD (sexually transmitted disease); Vaginal irritation Start: 11-18-2023 Telephone encounter Julieta nunez APRN.CNP Work Phone: [facility] Comment on above: Results Start: 11-18-2023 End: 11-18-2023 Subsequent hospital visit by physician Xr [facility] Work Phone: Radiology Comment on above: Acute cough [R05.1] Start: 11-17-2023 End: 11-17-2023 Patient encounter procedure Elaineblaise Lemus DOOR FRAME ASSEMBLER MACHINE.INSIDE SALES ASSOCIATE Work Phone: [facility] Comment on above: Sinobronchitis (Prim adeel Dx); Acute cough Start: 10-22-2023 Telephone encounter Cesar ann DOOR FRAME ASSEMBLER MACHINE.INSIDE SALES ASSOCIATE Work Phone: [facility] Comment on above: Results Start: 10-21-2023 End: 10-21-2023 Patient encounter procedure Torrey Dawson PA-C Work Phone: [facility] Comment on above: Vaginal itching (Bailee bahman Dx) Start: 09-30-2023 End: 09-30-2023 Subsequent hospital visit by physician Us [facility] Work Phone: Radiology Comment on above: Abnormal mammogram o f left breast [R92.8] Start: 09-07-2023 End: 09-07-2023 Subsequent hospital visit by physician Screen Mammo [facility] Comment on above: ER+ (estrogen recept or positive status) [Z17.0] Start: 09-04-2023 Telephone encounter Ashlyn cancino DOOR FRAME ASSEMBLER MACHINE.THERMOSTAT MECHANIC Work Phone: Mammogram Comment on above: Orders Start: 09-01-2023 Telephone encounter Jennifer elam MD Work Phone: Family [facility] [place] Comment on above: Orders Start: 08-31-2023 Telephone encounter Zofia torres DOOR FRAME ASSEMBLER MACHINE.INSIDE SALES ASSOCIATE Work Phone: Hematology/Oncology Start: 08-28-2023 End: 08-28-2023 Emergency department patient visit LENA JIMENEZ MD Facility:[facility] Start: 08-28-2023 End: 08-28-2023 Emergency department patient visit LENA JIMENEZ MD [facility] Start: 08-28-2023 End: 08-28-2023 Emergency department patient visit [facility] Work Phone: Start: 08-28-2023 End: 08-28-2023 Patient encounter procedure Julieta Oreilly DOOR FRAME ASSEMBLER MACHINE.INSIDE SALES ASSOCIATE Work Phone: [facility] Comment on above: Blurred vision, righ t eye (Primary Dx) Start: 05-26-2023 End: 05-27-2023 [facility] Start: 05-21-2023 End: 05-21-2023 Patient encounter procedure Yaakov Richter MD Work Phone: [facility] Comment on above: Lip swelling (Primar y Dx) Angioedema of lips, subsequent encounter (Primary Dx) Start: 05-08-2023 End: 05-08-2023 Emergency department patient visit [facility] Facility:[facility] Start: 05-07-2023 End: 05-07-2023 Emergency department patient visit [facility] Start: 11-17-2022 ambulatory Kelly Minaya MA [facility] Comment on above: Population Health Na vigation Outreach ([employer] Gaps ) Start: 09-04-2022 Documentation procedure Mammog day Coordinator [facility] Start: 09-04-2022 Letter encounter Mammography Coordinator [facility] Department Start: 09-04-2022 Telephone encounter Zofia torres APRN.INSIDE SALES ASSOCIATE Work Phone: Hematology/Oncology Comment on above: Results Start: 09-03-2022 End: 09-03-2022 Subsequent hospital visit by physician Screen Mammo [facility] Comment on above: 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] Start: 08-18-2022 Telephone encounter Zofia torres APRNJojoINSIDE SALES ASSOCIATE Work Phone: Hematology/Oncology Comment on above: Orders (Mammogram Sc reening) Start: 06-11-2022 ambulatory Jennifer Rhodes Work Phone: Internal [facility] [place] Comment on above: Medication Question Start: 05-16-2022 End: 05-16-2022 Patient encounter procedure Jennifer Santos MD Work Phone: Internal Medicine [place] Comment on above: Recurrent deep vein thrombosis (DVT) (HCC) (Primary Dx); Pedal edema; Other acute sinusitis, recurrence not specified Start: 03-17-2022 End: 03-17-2022 Patient encounter procedure Arpit Beck MD Work Phone: Family [facility] Comment on above: Recurrent deep vein thrombosis (DVT) of lower extremity, unspecified laterality (HCC) (Primary Dx); Allergy to antithrombotic medication Start: 03-17-2022 Telephone encounter Jennifer elam MD Work Phone: Internal [facility] Comment on above: Medication Question Swelling / itching i n left foot Start: 03-15-2022 Refill Jennifer Rhodes Work Phone: Internal [facility] Comment on above: Refill Request Start: 03-03-2022 End: 03-03-2022 Patient encounter procedure Jennifer Santos MD Work Phone: Internal [facility] Comment on above: Anxiety (Primary Dx) ; DVT (deep vein thrombosis) in ; Hyperlipidemia with target low density lipoprotein (LDL) cholesterol less than 130 mg/dL Start: 03-02-2022 End: 03-02-2022 Emergency department patient [facility] Start: 02-18-2022 Non-patient / Non-visit Dr. Mena Santos Work Phone: [facility] Start: 02-18-2022 End: 02-18-2022 [facility]: 02-07-[facility]22 Telephone encounter Torrey frank PA-C Work Phone: [facility] Comment on above: Results Start: 02-07-2022 End: 02-07-2022 Patient encounter procedure Torrey Dawson PA-C Work Phone: [facility] Comment on above: Left leg swelling (P rimary Dx) Start: 01-25-2022 End: 01-25-2022 Patient encounter procedure Zee León APRN.INSIDE SALES ASSOCIATE Work Phone: [facility] Comment on above: Urinary frequency (P rimary Dx); Elevated blood pressure reading without diagnosis of hypertension; Acute vaginitis Start: 12-13-2021 End: 12-13-2021 Patient encounter procedure Natasha Lester PA-C Work Phone: General Surgery Comment on above: Axillary abscess (Pr imary Dx) Start: 12-03-2021 End: 12-03-2021 Patient encounter procedure Kodi Muniz MD Work Phone: General Surgery Comment on above: Cutaneous abscess of right axilla (Primary Dx) Start: 11-06-2021 Telephone encounter Kailyn Riley RN He matology/Oncology Comment on above: Edge Polisher - O ther (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 ) Start: 10-28-2021 End: 10-28-2021 ambulatory Zofia Donnelly APRN.INSIDE SALES ASSOCIATE Work Phone: Hematology/Oncology Comment on above: 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) (Primary Dx); Cellulitis of axillary region Start: 10-28-2021 End: 10-28-2021 Patient encounter procedure Zofia Donnelly APRN.INSIDE SALES ASSOCIATE Work Phone: [facility] Start: 09-02-2021 End: 09-02-2021 Subsequent hospital visit by physician Screen Mammo [facility] Comment on above: 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] Start: 05-31-2021 Telephone encounter Jennifer elam MD Work Phone: Internal Medicine [facility] Comment on above: Patient Update Procedures Date Procedure Procedure Detail Performing Clinician Start: 05-10-2024 Urnls dip stick/tabl et rgnt auto w/o microscopy Torrey Dawson PA-C Work Phone: Start: 11-18-2023 Radiologic exam ches t 2 views Elaine Lemus APRN.INSIDE SALES ASSOCIATE Work Phone: Start: 10-21-2023 BACTERIAL VAGINOSIS NAAT Torrey Dawson PA-C Work Phone: Start: 10-21-2023 Iadna trichomonas va ginalis amplified probe tech Torrey Dawson PA-C Work Phone: Start: 10-21-2023 Urnls dip stick/tabl et rgnt auto w/o microscopy Torrey Dawson PA-C Work Phone: Start: 09-30-2023 Us breast uni real t joi with image limited Ashlyn Roger DOOR FRAME ASSEMBLER MACHINE.THERMOSTAT MECHANIC Work Phone: Start: 09-30-2023 Digital breast tomosynthesis unilateral Ashlyn Roger DOOR FRAME ASSEMBLER MACHINE.THERMOSTAT MECHANIC Work Phone: Start: 09-03-2022 BARBARA SCREENING W EL Da inge Donnelly DOOR FRAME ASSEMBLER MACHINE.INSIDE SALES ASSOCIATE Work Phone: Start: 09-03-2022 Mammography Zofia torres DOOR FRAME ASSEMBLER MACHINE.INSIDE SALES ASSOCIATE Work Phone: Start: 01-25-2022 Urnls dip stick/tabl et rgnt auto w/o microscopy Zee Romelia DOOR FRAME ASSEMBLER MACHINE.INSIDE SALES ASSOCIATE Work Phone: Start: 10-28-2021 Adult depression scr eening assessment Zofia Donnelly DOOR FRAME ASSEMBLER MACHINE.INSIDE SALES ASSOCIATE Work Phone: Start: 09-02-2021 End: 09-02-2021 Screening mammography bi 2-view breast inc cad Zofia Donnelly DOOR FRAME ASSEMBLER MACHINE.INSIDE SALES ASSOCIATE Work Phone: Start: 09-06-2020 Adult depression scr eening assessment [facility] Start: 08-23-2018 Lipid 1996 panel - S daniel or Plasma [facility] Start: 08-08-2014 Colonoscopy Screen Wst r Plan of Treatment Date Care Activity Detail Author Start: 05-22-2026 Diabetes Screening Diabetes Screenin g [facility] Start: 09-22-2025 Screening for malign ant neoplasm of breast Mammogram Screening [facility] Start: 2025 RSV Vaccine (1 - 1-d ose 75+ series) RSV Vaccine (1 - 1-dose 75+ series) [facility] Start: 02-13-2025 Influenza vaccination C [facility] Start: 09-22-2024 End: 09-22-2024 Patient encounter procedure 09/22/2024 9:50 AM EDT Appointment Mammogram [address] [place] [address] yearly mammogram with el Mammogram Comment on above: yearly mammogram wit h el Start: 09-06-2024 Screening for malign ant neoplasm of breast Mammogram Screening [facility] Start: 08-08-2024 Colonoscopy COLONOSCOPY [facility] Start: 08-08-2024 COLORECTAL CANCER SCREENING COLORECTAL CANCER SCREENING [facility] Start: 08-08-2024 Screening for malign ant neoplasm of colon [facility] Start: 06-15-2024 Advance Directive Discussion Advance Directive Discussion [facility] Start: 06-15-2024 Medicare Advantage Annual Wellness Visit Medicare Advantage Annual Wellness Visit [facility] Start: 02-14-2024 Covid-19 Vaccine () Covid-19 Vaccine () [facility] Start: 02-14-2024 Influenza vaccination C [facility] Start: 09-04-2023 Mammography [facility] Start: 09-04-2023 Screening for malign ant neoplasm of breast Mammogram Screening [facility] Start: 08-24-2023 Lipid 1996 panel - Serum or Plasma Lipid Screening [facility] Start: 08-24-2023 Lipid panel Lipid Screening [facility] Start: 08-24-2023 LIPID SCREEN LIPID SCREEN [facility] Start: 06-15-2023 Advance Directive Discussion Advance Directive Discussion [facility] Start: 06-15-2023 Behavioral Health Screening Behavioral Health Screening [facility] Start: 06-15-2023 Depression Assessment Depression Ass essment [facility] Start: 05-27-2023 [facility] Start: 05-21-2023 End: 08-20-2023 Comprehensive metabolic 2000 panel - Serum or Plasma COMP METABOLIC PANEL Lab Routine Angioedema of lips, subsequent encounter Expected: 05/21/2023, Expires: 08/20/2023 [facility] Work Phone: Comment on above: Expected: 05/21/2023 , Expires: 08/20/2023 Start: 05-04-2023 Urine microalbumin profile DTaP,Tdap,Td Vaccine (1 - Tdap) [facility] Start: 02-13-2023 Covid-19 Vaccine ( season) Covid-19 Vaccine ( season) [facility] Start: 02-13-2023 Influenza vaccination C [facility] Start: 10-28-2022 Adult depression screening assessment DEPRESSION SCREENING [facility] Start: 09-02-2022 Mammography MAMMOGRAM [facility] Start: 06-15-2022 ADVANCE DIRECTIVE DISCUSSION ADVANCE DIRECTIVE DISCUSSION [facility] Start: 06-15-2022 DEPRESSION ASSESSMENT DEPRESSION ASS ESSMENT [facility] Start: 03-03-2022 End: 05-03-2022 Basic metabolic 2000 panel - Serum or Plasma BASIC METABOLIC PNL Lab Routine Hyperlipidemia with target low density lipoprotein (LDL) cholesterol less than 130 mg/dL Expected: 03/03/2022, Expires: 05/03/2022 [facility] Work Phone: Comment on above: Expected: 03/03/2022 , Expires: 05/03/2022 Start: 03-03-2022 End: 05-03-2022 CBC W Auto Differential panel - Blood CBC + DIFF Lab Routine DVT (deep vein thrombosis) in Expected: 03/03/2022, Expires: 05/03/2022 [facility] Work Phone: Comment on above: Expected: 03/03/2022 , Expires: 05/03/2022 Start: 03-03-2022 End: 05-03-2022 Lipid 1996 panel - Serum or Plasma LIPID PANEL BASIC Lab Routine Hyperlipidemia with target low density lipoprotein (LDL) cholesterol less than 130 mg/dL Expected: 03/03/2022, Expires: 05/03/2022 [facility] Work Phone: Comment on above: Expected: 03/03/2022 , Expires: 05/03/2022 Start: 02-13-2022 Influenza vaccination INFLUENZA (#1) [facility] Start: 09-06-2021 Adult depression screening assessment DEPRESSION SCREENING [facility] Start: 08-23-2021 DIABETES SCREEN DIABETES SCREEN [facility] Start: 08-23-2021 Diabetes Screening Diabetes Screenin g [facility] Start: 08-03-2021 COVID-19 VACCINE (4 - Booster for Pfizer series) COVID-19 VACCINE (4 - Booster for Pfizer series) [facility] Start: 06-15-2021 ADVANCE DIRECTIVE DISCUSSION ADVANCE DIRECTIVE DISCUSSION [facility] Start: 06-15-2021 DEPRESSION ASSESSMENT DEPRESSION ASS ESSMENT [facility] Start: 05-28-2021 COVID-19 VACCINE (4 - Booster for Pfizer series) COVID-19 VACCINE (4 - Booster for Pfizer series) [facility] Start: 05-28-2021 COVID-19 VACCINE (4 - Pfizer series) COVID-19 VACCINE (4 - Pfizer series) [facility] Start: 07-13-2015 FECAL OCCULT BLOOD FECAL OCCULT BLOO D [facility] Start: 07-13-2015 Screening for malign ant neoplasm of colon Fecal Occult Blood [facility] Start: 2010 RSV Vaccine (1 - 1-d ose 60+ series) RSV Vaccine (1 - 1-dose 60+ series) [facility] Start: 02-21-2000 SHINGRIX VACCINE (1 of 2) SHINGRIX VACCINE (1 of 2) [facility] Start: 1995 COLOGUARD (FIT-DNA) COLOGUARD (FIT-D NA) [facility] Start: [address] COLONOGRAPHY [facility] Start: 1995 Screening for malign ant neoplasm of colon [facility] Start: 1995 SIGMOIDOSCOPY SIGMOIDOSCOPY [facility] Start: 1969 SHINGRIX VACCINE (1 of 2) SHINGRIX VACCINE (1 of 2) [facility] Start: 1969 Urine microalbumin profile [facility] Start: 02-21-1968 Depression Screening Depression Scre ening [facility] Start: 02-21-1968 HEPATITIS C SCREENING HEPATITIS C [facility] Start: 02-21-1968 Hepatitis C screening Hepatitis C [facility] Bacteria identified in Urine by Culture URINE CULTURE Microbiology Routine Urinary frequency Ordered: 01/25/2022 [facility] Work Phone: Comment on above: Ordered: 01/25/2022 Bacteria identified in Urine by Culture URINE CULTURE Microbiology Routine Acute UTI Ordered: 05/10/2024 [facility] Work Phone: Comment on above: Ordered: 05/10/2024 BACTERIAL VAGINOSIS AMPLIFICATION BACTERIAL VAGINOSIS AMPLIFICATION Lab Routine Acute vaginitis Ordered: 01/25/2022 [facility] Work Phone: Comment on above: Ordered: 01/25/2022 BACTERIAL VAGINOSIS NAAT BACTERIAL VAGINOSIS NAAT Lab Routine Screening for STD (sexually transmitted disease) 05/10/2024 1:17 PM EST [facility] ALBA / TRICHOMONA S AMPLIFICATION ALBA / TRICHOMONAS AMPLIFICATION Lab Routine Acute vaginitis Ordered: 01/25/2022 [facility] Work Phone: Comment on above: Ordered: 01/25/2022 ALBA/TRICHOMONAS NAAT ALBA/TRICHOMONAS NAAT Lab Routine Screening for STD (sexually transmitted disease) 05/10/2024 1:17 PM EST [facility] Chlamydia trachomatis+Neisseria gonorrhoeae DNA [Presence] in Unspecified specimen by RADHA with probe detection GONORRHEA/CHLAMYDIA NAAT Lab Routine Screening for STD (sexually transmitted disease) 05/10/2024 1:17 PM EST [facility] Comprehensive metabo lic 2000 panel - Serum or Plasma COMP METABOLIC PANEL Lab Routine Angioedema of lips, subsequent encounter 05/22/2023 10:39 AM EST [facility] Work Phone: End: 09-30-2024 DBT Breast - bilateral screening BARBARA SCREENING W EL Radiology Routine ER+ (estrogen receptor positive status) Encounter for screening mammogram for breast cancer 1 Occurrences starting 09/01/2023 until 09/30/2024 [facility] Work Phone: Comment on above: 1 Occurrences starti ng 09/01/2023 until 09/30/2024 DBT Breast - bilater al screening BARBARA SCREENING W EL Radiology Routine ER+ (estrogen receptor positive status) Encounter for screening mammogram for breast cancer 09/07/2023 2:25 PM EDT [facility] Work Phone: End: 10-14-2025 DBT Breast - bilateral screening BARBARA SCREENING W EL Radiology Routine Encounter for screening mammogram for breast cancer 1 Occurrences starting 09/14/2024 until 10/14/2025 [facility] Work Phone: Comment on above: 1 Occurrences starti ng 09/14/2024 until 10/14/2025 DBT Breast - bilater al screening BARBARA SCREENING W EL Radiology Routine Encounter for screening mammogram for breast cancer 09/22/2024 9:57 AM EDT [facility] Work Phone: Patient Education [facility] Work Phone: Patient referral [facility] Work Phone: End: 12-16-2024 XR Chest PA and Lateral XR CHEST 2V FRONTAL/LAT Radiology STAT Acute cough 1 Occurrences starting 11/17/2023 until 12/16/2024 [facility] Work Phone: Comment on above: 1 Occurrences starti ng 11/17/2023 until 12/16/2024 [facility] Immunizations Immunization Date Immunization Notes Care Provider [facility] 05-03-2023 tetanus and diphther ia toxoids, adsorbed, preservative free, for adult use (5 Lf of tetanus toxoid and 2 Lf of diphtheria toxoid) Yaakov Richter MD Work Phone: [facility] 04-02-2021 COVID-19 vaccine, ag e 12+ yr (UannaBe-BIONTECH - PURPLE TOP) Screen [facility] 04-02-2021 influenza (aIIV4) vaccine, age 65+ yr, quadrivalent, PF (FLUAD QUAD) Yaakov Richter MD Work Phone: [facility] 04-02-2021 influenza, seasonal, injectable Screen [facility] 04-02-2021 influenza virus vacc ine, unspecified formulation Screen [facility] 09-13-2020 Covid (Pfizer) [facility] 08-23-2020 COVID-19 vaccine, ag e 12+ yr (PFIZER-BIONTECH - PURPLE TOP) Screen [facility] 02-28-2020 influenza, high-dose , quadrivalent vaccine (FLUZONE HIGH DOSE QUADRIVALENT) Screen [facility] 02-28-2020 pneumococcal polysaccharide vaccine, 23 valent Screen [facility] 03-28-2019 influenza, high dose seasonal, preservative-free Screen [facility] 04-18-2017 influenza, seasonal, injectable Screen [facility] 03-18-2016 influenza, high dose seasonal, preservative-free Screen [facility] 04-06-2015 influenza, high dose seasonal, preservative-free Screen [facility] 04-06-2015 pneumococcal conjuga te vaccine, 13 valent Screen [facility] Payers Date Payer Category Payer Self-pay [id number] 2023 Private Health Insurance 1 [id number] 2021 Medicare HUMANA MEDICARE HUMANA MEDICARE PPO [id number] 2021-Present [phone] [address] [place] [address] PPO [id number] 2021 Medicare HUMANA MEDICARE HUMANA MEDICARE PPO [id number] 2021-Present [phone] [place] [address] [id number] 2021 Medicare (Managed Care) HUMANA M EDICARE [id number] 2021 Private Health Insurance 1 [id number] 2014 Medicaid MEDICAID [id number] 1950 Unknown [id number] 1950 Unknown [id number] Medicare MEDICARE PART A B [id number] Unknown [id number] Unknown [id number] Unknown [id number] Social History Date Type Detail Facility Start: 08-27-2012 End: 08-28-2023 Tobacco smoking status NHIS Never smoked tobacco [facility] Work Phone: Start: 07-29-2021 End: 05-10-2024 Alcohol intake Current non-drinker of alcohol (finding) [facility] Start: 1950 Sex Assigned At Not on file C [facility] Start: 08-23-2021 End: 05-16-2022 Exposure to SARS-CoV-2 (event) Not sure [facility] Start: 08-27-2012 End: 02-07-2022 Tobacco use and exposure Smokeless tobacco non-user [facility] Start: 02-18-2022 End: 08-28-2023 Tobacco smoking status NHIS Unknown if ever smoked [facility] Start: 01-23-2020 None [facility] Start: 01-23-2020 Alone [facility] Start: 1950 Sex Assigned At Female W [facility] Start: 02-21-2022 End: 03-03-2022 Exposure to SARS-CoV-2 (event) Yes [facility] Work Phone: Start: 11-26-2022 End: 09-07-2023 History of Social function [facility] Work Phone: Start: 11-26-2022 End: 09-07-2023 Tobacco use panel [facility] Work Phone: Adult Depression Screening Assessment 6 [facility] Work Phone: Functional Status Date Assessment Result Facility 08-28-2023 Functional Status ID band on, Call device within reach, Bed in low position, Wheels locked, Safety level maintained [facility] 05-07-2023 Functional Status Resting [facility] 09-16-2018 Are you deaf, or do you have serious difficulty hearing No 09/16/2018 5:47 PM EDT Xavier Poon III, MD [facility] 09-16-2018 Are you blind, or do you have serious difficulty seeing, even when wearing glasses No 09/16/2018 5:47 PM EDT Xavier Poon III, MD [facility] 09-16-2018 Do you have serious difficulty walking or climbing stairs No 09/16/2018 5:47 PM EDT Xavier Poon III, MD [facility] 09-16-2018 Do you have difficul ty dressing or bathing No 09/16/2018 5:47 PM RONALDT Xavier Poon III, MD [facility] 09-16-2018 Because of a physica l, mental, or emotional condition, do you have difficulty doing errands alone such as visiting a physician's office or shopping No 09/16/2018 5:47 PM RONALDT Xavier Poon III, MD [facility] Mental Status Date Assessment Result Facility 08-28-2023 Mental Status Oriented x [facility] 05-07-2023 Mental Status Oriented x 4 [facility] 09-16-2018 Because of a physica l, mental, or emotional condition, do you have serious difficulty concentrating, remembering, or making decisions No 09/16/2018 5:47 PM Xavier Sauceda III, MD No [facility] Clinical Notes 08-09-2014 to 12-20-2024 Nicki Conley - 12/20/2024 9:23 AM EDNicki Pedro - 12/07/2024 10:42 AM Angelica Jmaes - 11/30/2024 11:46 AM EDTPatient Colin Ochoa [address] - 09/22/2024 9:50 AM EDT Note Date & Type Note Facility 12-20-2024 Note HNO ID: [id number] Author: ?, ?, ? Service: ? Author Type: ? Type: Progress Notes Filed: 12/20/2024 09:23 Note Text: 3rd attempt LVM and mailed letter [facility] 12-20-2024 History of Present illness Narrative 3rd attempt LVM and mailed letter 2nd attempt LVM to schedule colonoscopy 1'st attempt to schedule est well visit and open access colonoscopy. LVM to return call documented in this encounter [facility] 12-07-2024 Note HNO ID: [id number] Author: ?, ?, ? Service: ? Author Type: ? Type: Progress Notes Filed: 12/20/2024 09:23 Note Text: 2nd attempt LVM to schedule colonoscopy [facility] 11-30-2024 Note HNO ID: [id number] Author: ?, ?, ? Service: ? Author Type: ? Type: Progress Notes Filed: 12/20/2024 09:23 Note Text: 1'st attempt to schedule est well visit and open access colonoscopy. LVM to return call [facility] 11-29-2024 Instructions Lisa Whalen RN - 11/29/2024 8:45 AM EDT COLONOSCOPY BOWEL PREPARATION INSTRUCTIONS MiraLAX Your doctor has scheduled you for a colonoscopy. To have a successful colonoscopy, you must have a clean colon, that is empty. A clean colon allows your doctor to see the entire colon & diagnose issues like polyps or cancer. For doctors, a clean colon is like driving on a noni day; a dirty colon like driving in a storm. It is very important that you follow these instructions exactly, or your colonoscopy may not be as effective, could be canceled, and you may need to do the bowel prep and colonoscopy again. TRANSPORTATION REQUIREMENTS You are receiving IV sedation. For your safety, a responsible adult escort must accompany you to and from your procedure: Your adult escort MUST be present with you at check-in for your colonoscopy. Your adult escort MUST remain in the endoscopy area until you are discharged. Your adult escort MUST transport you home once you are discharged. You are NOT allowed to operate any form of transportation (i.e. drive a car, bicycle, etc) or leave the Endoscopy Center ALONE. It is not safe to do so. If you cannot meet these requirements, your procedure will be canceled. MEDICATION REQUIREMENTS For your safety, certain medications will need to be stopped or adjusted before you can have your procedure: BLOOD THINNERS: If you take blood thinners, such as Coumadin (warfarin), Plavix (clopidogrel), Ticlid (ticlopidine hydrochloride), Agrylin (anagrelide), Xarelto (Rivaroxaban), Pradaxa (Dabigatran), Eliquis (Apixaban), or Effient (Prasugrel), contact the physician who is prescribing these medications at least 2 weeks prior to your procedure to discuss any necessary adjustments. DIABETES: If you take medications for diabetes, your dosage may need to be adjusted. If you are being treated for diabetes with insulin, diabetic pills, or other injectable medications do not take your REGULAR dose after midnight on the day of your procedure. If you are taking any other types of insulin such as Lantus, Humalog, NPH (long-acting insulin), or 70/30 insulin, take half your normal dose the day before your procedure. DIABETES/WEIGHT MANAGEMENT: If you take medications for weight-loss, your dosage may need to be adjusted Contact the doctor who prescribes this medication for further instructions. If you take medications for weight-loss like semaglutide (Ozempic, Wegovy, Rybelsus), dulaglutide (Trulicity), liraglutide (Victoza, Saxenda), exenatide (Byetta, Bydureon), or lixisenatide (Adylyxin), stop your medication 1 week prior to your procedure. If you take medications like canagliflozin (Invokana), dapagliflozin (Farxiga, Forxiga), empagliflozin (Jardiance), stop your medication 3 days prior to your procedure. If you take ertugliflozin (Steglatro) stop your medication 4 days prior to your procedure. IRON: If you take iron pills, STOP them 1 week BEFORE your procedure, may resume after. OTHER MEDS: May take all other medications (including aspirin, antibiotics, water pills / diuretics like Lasix or Metolozone, blood pressure meds, etc.) at their usual scheduled time with water. DIET REQUIREMENTS The day before your colonoscopy, you may have a clear liquid diet (see below). The day of your colonoscopy, you may continue a clear liquid diet until 3 hours before your colonoscopy. Within 3 hours of your colonoscopy, take only any medications (as above) with a sip of water. Clear Liquid Diet Broth (chicken, beef or vegetable broth or bullion. Just the broth, no solids). Water Coffee or Tea (NO milk or creamer), but sugar and sugar substitutes are allowed. Clear liquids including clear, yellow, green, blue (NO red, NO orange, NO purple) Sodas / soft drinks; Gatorade or other sports drinks Fruit juice (strained; no-pulp); Al-Aid or flavored drinks Plain Jell-O or other gelatins Popsicles or hard candy Bowel prep can work differently from person to person. Some people's bowels move slowly and they may need different instructions. Please see your doctor in office or virtually for personalized bowel prep instructions if you have: BOWEL PREPARATION (MIRALAX/GATORADE) Split Dosing Bowel Prep: This means drinking your bowel prep in two doses. Split dosing helps clean your colon better and makes it less likely that your procedure will be canceled. You will need to purchase the following (no prescriptions are needed): 64 ounces Gatorade, Propel, Crystal Lite or other noncarbonated clear liquid sports drink (NOT red, orange, or purple). Diabetic patients buy sugar-free, e.g. Gatorade G2 4 Dulcolax laxative tablets containing 5mg bisacodyl each (do not buy the stool softener) 8.3 oz MiraLAX (238g) powder or generic polyethylene glycol 3350 (find in laxative aisle) The day before your colonoscopy mix 64 oz of the sports drink with 8.3 oz MiraLAX (238 g) in a pitcher. Stir or shake until MiraLAX completely dissolved. Chill if desired. On the evening before your colonoscopy: 5 PM take 4 Dulcolax laxative tablets with water by mouth. 6 PM drink the first half of the Gatorade/MiraLAX solution Drink one 8-ounce glass every 15 minutes. Six hours before your colonoscopy, drink the second half of the solution. Drink one 8-ounce glass every 15 minutes. You may continue a clear liquid diet until 3 hours before your colonoscopy. Bowel prep can work differently from person to person. Some people's bowels move slowly and they may need different instructions. Please see your doctor in office or virtually for personalized bowel prep instructions if you have: Medical condition that needs special accommodations Had a poor bowel prep results or failed bowel prep attempts in the past. Had difficulty with anesthesia during the procedure. FREQUENTLY ASKED QUESTIONS Q: What if I suffer from constipation? A: Recommend taking extra laxatives to resolve your constipation days prior to entering the bowel prep day. Q: What if have had prior poor preps results in past? A: Contact your physician as you will likely need additional bowel prep instructions. Q: What if I have motility issues like Parkinson's, MS (multiple sclerosis), wheelchair dependent, etc.? or on medications that slow colonic transit times (narcotics, gabapentin, anticholinergic medications etc.) A: Contact your physician as you will likely need extra time and additional laxatives to complete your bowel prep. Q: What if I cannot drink large volume of liquid? A: Start your prep 2-3 hours earlier to allow yourself more time to complete the entire prep. Q: What if I had bariatric surgery? Do I still have to complete the entire prep? A: Yes, gastric bypass surgery involves the stomach & small bowel. You may need to drink smaller amounts, slower (may need more time to complete your bowel prep). Gastric bypass does not alter the length of your colon so you will need to complete the entire bowel prep, it may just take longer time to complete it. Q: What if I am on dialysis? A: Please consult your spindle maker prior to scheduling to get instructions pertinent to you. In general, dialysis patients take the Golytely bowel prep and have the procedure same day of their dialysis (colonoscopy in AM, dialysis in PM). Q: How do I know if something is considered as clear liquid diet? A: If you can pour it in a glass and you can see through it, it is considered clear liquid Q: Can I eat nuts, seeds, beans, popcorn, dried fruits, vegetables & fruits that have skin peel? A: No, you will need to not eat these items starting 3 days prior to procedure. Q: Can I take Uber/Lyft/taxi/bus home? A: An adult MUST be present with you at check-in for your colonoscopy and remain in the endoscopy area until you are discharged. You can take Uber home only if this adult escort is with you at check in, remain in the endoscopy area until you are discharged, and takes the Uber with you to home. Q: Can I sleep it off here and drive myself home? A: No, you must have an adult with you at time of procedure check in, remain in the endoscopy center during your procedure, and drive you home. You cannot drive a vehicle after your procedure the rest of the day. Q: What if I can't finish my bowel prep? A: If you cannot complete your entire bowel prep, there is high likelihood that your colonoscopy will need to be rescheduled due to inadequate prep quality. documented in this encounter [facility] 11-29-2024 Note Patient Outreach ( [facility]) ILENE SHAW ([id number]) 1950 F Date Time Provider Department 11/29/24 JENNIFER SANTOS ASWSTR During your visit today, we recorded the following information about you: Lisa Whalen RN 11/29/2024 8:45 AM Signed COLONOSCOPY BOWEL PREPARATION INSTRUCTIONS MiraLAX? Your doctor has scheduled you for a colonoscopy. To have a successful colonoscopy, you must have a clean colon, that is empty. A clean colon allows your doctor to see the entire colon AND diagnose issues like polyps or cancer. For doctors, a clean colon is like driving on a noni day; a dirty colon like driving in a storm. It is very important that you follow these instructions exactly, or your colonoscopy may not be as effective, could be canceled, and you may need to do the bowel prep and colonoscopy again. TRANSPORTATION REQUIREMENTS You are receiving IV sedation. For your safety, a responsible adult escort must accompany you to and from your procedure: Your adult escort MUST be present with you at check-in for your colonoscopy. Your adult escort MUST remain in the endoscopy area until you are discharged. Your adult escort MUST transport you home once you are discharged. You are NOT allowed to operate any form of transportation (i.e. drive a car, bicycle, etc) or leave the Endoscopy Center ALONE. It is not safe to do so. If you cannot meet these requirements, your procedure will be canceled. MEDICATION REQUIREMENTS For your safety, certain medications will need to be stopped or adjusted before you can have your procedure: BLOOD THINNERS: If you take blood thinners, such as Coumadin (warfarin), Plavix (clopidogrel), Ticlid (ticlopidine hydrochloride), Agrylin (anagrelide), Xarelto (Rivaroxaban), Pradaxa (Dabigatran), Eliquis (Apixaban), or Effient (Prasugrel), contact the physician who is prescribing these medications at least 2 weeks prior to your procedure to discuss any necessary adjustments. DIABETES: If you take medications for diabetes, your dosage may need to be adjusted. If you are being treated for diabetes with insulin, diabetic pills, or other injectable medications do not take your REGULAR dose after midnight on the day of your procedure. If you are taking any other types of insulin such as Lantus, Humalog, NPH (long-acting insulin), or 70/30 insulin, take half your normal dose the day before your procedure. DIABETES/WEIGHT MANAGEMENT: If you take medications for weight-loss, your dosage may need to be adjusted Contact the doctor who prescribes this medication for further instructions. If you take medications for weight-loss like semaglutide (Ozempic, Wegovy, Rybelsus), dulaglutide (Trulicity), liraglutide (Victoza, Saxenda), exenatide (Byetta, Bydureon), or lixisenatide (Adylyxin), stop your medication 1 week prior to your procedure. If you take medications like canagliflozin (Invokana), dapagliflozin (Farxiga, Forxiga), empagliflozin (Jardiance), stop your medication 3 days prior to your procedure. If you take ertugliflozin (Steglatro) stop your medication 4 days prior to your procedure. IRON: If you take iron pills, STOP them 1 week BEFORE your procedure, may resume after. OTHER MEDS: May take all other medications (including aspirin, antibiotics, water pills / diuretics like Lasix or Metolozone, blood pressure meds, etc.) at their usual scheduled time with water. DIET REQUIREMENTS The day before your colonoscopy, you may have a clear liquid diet (see below). The day of your colonoscopy, you may continue a clear liquid diet until 3 hours before your colonoscopy. Within 3 hours of your colonoscopy, take only any medications (as above) with a sip of water. Clear Liquid Diet Broth (chicken, beef or vegetable broth or bullion. Just the broth, no solids). Water Coffee or Tea (NO milk or creamer), but sugar and sugar substitutes are allowed. Clear liquids including clear, yellow, green, blue (NO red, NO orange, NO purple) Sodas / soft drinks; Gatorade or other sports drinks Fruit juice (strained; no-pulp); Al-Aid or flavored drinks Plain Jell-O or other gelatins Popsicles or hard candy Bowel prep can work differently from person to person. ? Some people's bowels move slowly and they may need different instructions. Please see your doctor in office or virtually for personalized bowel prep instructions if you have: BOWEL PREPARATION (MIRALAX/GATORADE) Split Dosing Bowel Prep: This means drinking your bowel prep in two doses. Split dosing helps clean your colon better and makes it less likely that your procedure will be canceled. You will need to purchase the following (no prescriptions are needed): 64 ounces Gatorade, Propel, Crystal Lite or other noncarbonated clear liquid sports drink (NOT red, orange, or purple). Diabetic patients buy sugar-free, (more content not included)... [facility] 09-22-2024 History of Present illness Narrative Radiology Service Progress Note PATIENT NAME: Ilene Shaw DATE OF SERVICE: September 22, 2024 TIME: 10:33 AM PATIENT IDENTITY VERIFICATION COMPLETED USING TWO (2) IDENTIFIERS: Name and Date of confirmed by patient verbally. FALL SCREENING: Has the patient had 2 falls in the last year or 1 fall with injury or currently using an Ambulatory Assistive Device (Walker, Cane, Wheelchair, Crutches, etc.)? No PATIENT GENDER DATA: Assigned female at . status: : No status: NO. PATIENT RELEVANT IMPLANT DATA REVIEWED: Not Applicable PATIENT PRESENTS WITH AN IMPLANTABLE OR ATTACHED GAS REGULATOR REPAIRER HELPER: No RADIOLOGY DEPARTMENT: Mammography PERIPHERAL IV DATA: Not applicable SIGNED BY: Natalee Peterson September 22, 2024 10:33 AM documented in this encounter [facility] 09-22-2024 Note HNO ID: [id number] Author: COLIN OZUNA Mammo Tech Service: ? Author Type: Gas Reverser Type: Progress Notes Filed: 09/22/2024 10:33 Note Text: Radiology Service Progress Note PATIENT NAME: Ilene Shaw DATE OF SERVICE: September 22, 2024 TIME: 10:33 AM PATIENT IDENTITY VERIFICATION COMPLETED USING TWO (2) IDENTIFIERS: Name and Date of confirmed by patient verbally. FALL SCREENING: Has the patient had 2 falls in the last year or 1 fall with injury or currently using an Ambulatory Assistive Device (Walker, Cane, Wheelchair, Crutches, etc.)? No PATIENT GENDER DATA: Assigned female at . status: : No status: NO. PATIENT RELEVANT IMPLANT DATA REVIEWED: Not Applicable PATIENT PRESENTS WITH AN IMPLANTABLE OR ATTACHED GAS REGULATOR REPAIRER HELPER: No RADIOLOGY DEPARTMENT: Mammography PERIPHERAL IV DATA: Not applicable SIGNED BY: Colin Ozuna [employer] September 22, 2024 10:33 AM [facility] 09-14-2024 Telephone encounter Note Order placed Kelle Peter APRN.CNP [facility] 09-14-2024 Miscellaneous Notes Order placed Kelle Peter APRN.CNP Patient calling in for her yearly mammogram with el. Patient is scheduled, she just needs an order. Please review Soraya Pena September 14, 2024 1:03 PM documented in this encounter [facility] 09-14-2024 Telephone encounter Note Patient calling in for her yearly mammogram with el. Patient is scheduled, she just needs an order. Please review Soraya Pena September 14, 2024 1:03 PM [facility] 05-11-2024 Telephone encounter Note Patient given results and verbalized understanding of instructions given. Kassidy Dial LPN [facility] 05-11-2024 Miscellaneous Notes Patient given results and verbalized understanding of instructions given. Kassidy Dial LPN Left message for patient to return call for results.Montse Ramirez LPN Please call and let patient know her STD testing was negative. She did test positive for yeast. I did send in medication for this. Urine culture is still pending will call as needed. Continue antibiotic as well. Follow-up with PCP if no improvement. documented in this encounter [facility] 05-11-2024 Telephone encounter Note Left message for patient to return call for results.Montse Ramirez LPN [facility] 05-11-2024 Telephone encounter Note Please call and let patient know her STD testing was negative. She did test positive for yeast. I did send in medication for this. Urine culture is still pending will call as needed. Continue antibiotic as well. Follow-up with PCP if no improvement. [facility] 05-10-2024 Note HNO ID: [id number] Author: TORREY DAWSON PA-C Service: ? Author Type: Physician Operations Research Group Manager Type: Progress Notes Filed: 05/10/2024 14:21 Note Text: This note was created using [email or web address]. Subjective Ilene Shaw is a 74 year old female. HPI Patient presents with a chief complaint of pelvic pressure, urinary frequency and dysuria over the past week. She is also had some vaginal itching and irritation. She recently did have a new sexual partner 10 days ago. Patient also had shaved for the first time in a while and has some irritation from that. No fever. She does have some lower back pain. No vomiting or diarrhea. Review of Systems Constitutional: Negative. HENT: Negative. Respiratory: Negative. Cardiovascular: Negative. Gastrointestinal: Negative. Genitourinary: Positive for dysuria, frequency, pelvic pain, urgency, vaginal discharge and vaginal pain. Negative for hematuria and vaginal bleeding. All other systems reviewed and are negative. PAST MEDICAL HISTORY Diagnosis Date Adjustment disorder with depressed mood Adnexal cyst Endometriosis Kidney disease renal calculi with litho. 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 escitalopram oxalate (LEXAPRO) 10 mg tablet Take 10 mg by mouth once daily. ALPRAZolam (XANAX) 0.25 mg tablet Take 1 tablet by mouth once daily. nystatin-triamcinolone (MYCOLOG) ointment Apply sparingly to perineum twice daily for irritation/infection. 30 g 0 nitrofurantoin monohydrate and macrocrystal (MACROBID) 100 mg capsule Take 1 capsule by mouth two times a day with meals for 5 days. 10 capsule 0 No current facility-administered medications for this visit. PAST SURGICAL HISTORY Procedure Laterality Date BX BREAST W/DEVICE 1ST LESION ULTRASOUND GUID 08/09/14 U/S mammotome medial right breast and right outer mid BX/EXC LYMPH NODE OPEN DEEP AXILLARY NODE 08-18-14 RIGHT COLECTOMY PARTIAL W ANASTOM with temp ostomy COLONOSCOPY FLX DX W/COLLJ SPEC WHEN PFRMD 08-08-14 INCISION AND DRAINAGE PILONIDAL CYST SIMPLE MASTECTOMY, PARTIAL 08-18-14 RIGHT PERQ BREAST LOC DEVICE PLACEMT 1ST LESIO US IMAG 08/16/14 U/S right axillary marking clip placement REMOVAL OF KIDNEY STONE TOTAL ABDOMINAL HYSTERECT W/WO RMVL TUBE OVARY Hysterectomy, TACO FAMILY HISTORY Problem Relation Age of Onset Heart Mother Cancer Father LEUKEMIA Diabetes Father other (dementia) Sister Diabetes Daughter other (neuropathy) Daughter Social History Tobacco Use Smoking status: Never Smokeless tobacco: Never Vaping Use Vaping status: Never Used Substance Use Topics Alcohol use: No Drug use: No Objective BP 136/78 Pulse 75 Temp 36.7 ?C (98.1 ?F) Resp 20 Wt 87 kg (191 lb 12.8 oz) SpO2 100% BMI 35.08 kg/m? Physical Exam Vitals reviewed. Exam conducted with a watch commander present (Kassidy ARTHUR). Constitutional: Appearance: Normal appearance. HENT: Head: Normocephalic and atraumatic. Cardiovascular: Rate and Rhythm: Normal rate and regular rhythm. Heart sounds: Normal heart sounds. Pulmonary: Effort: Pulmonary effort is normal. Breath sounds: Normal breath sounds. Genitourinary: Exam position: Lithotomy position. Comments: Patient does have some razor burn to the mons pubis area. No abnormal discharge in the vaginal canal. No bleeding. Musculoskeletal: Cervical back: Neck supple. Skin: General: Skin is warm and dry. Neurological: Mental Status: She is alert. Assessment and Plan ASSESSMENT/PLAN: 1. Acute UTI - ICD9: 599.0, ICD10: N39.0 (primary diagnosis) acute - UA positive for francois esterase, hematuria, and nitrates - Send urine for culture - Begin treatment with Macrobid 100 mg BID for 5 days - - UA DIP, URINE (POC) - URINE CULTURE 2. Screening for STD (sexually transmitted disease) - ICD9: V74.5, ICD10: Z11.3 Will treat based on swab results. - GONORRHEA/CHLAMYDIA NAAT - BACTERIAL VAGINOSIS NAAT - ALBA/TRICHOMONAS NAAT 3. Vaginal irritation - ICD9: 623.9, ICD10: N89.8 Given Mycolog cream for irritation. Torrey Dawson PA-C [facility] 05-10-2024 History of Present illness Narrative This note was created using [email or web address]. Subjective Ilene Shaw is a 74 year old female. HPI Patient presents with a chief complaint of pelvic pressure, urinary frequency and dysuria over the past week. She is also had some vaginal itching and irritation. She recently did have a new sexual partner 10 days ago. Patient also had shaved for the first time in a while and has some irritation from that. No fever. She does have some lower back pain. No vomiting or diarrhea. Review of Systems Constitutional: Negative. HENT: Negative. Respiratory: Negative. Cardiovascular: Negative. Gastrointestinal: Negative. Genitourinary: Positive for dysuria, frequency, pelvic pain, urgency, vaginal discharge and vaginal pain. Negative for hematuria and vaginal bleeding. All other systems reviewed and are negative. PAST MEDICAL HISTORY Diagnosis Date Adjustment disorder with depressed mood Adnexal cyst Endometriosis Kidney disease renal calculi with litho. 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 escitalopram oxalate (LEXAPRO) 10 mg tablet Take 10 mg by mouth once daily. ALPRAZolam (XANAX) 0.25 mg tablet Take 1 tablet by mouth once daily. nystatin-triamcinolone (MYCOLOG) ointment Apply sparingly to perineum twice daily for irritation/infection. 30 g 0 nitrofurantoin monohydrate and macrocrystal (MACROBID) 100 mg capsule Take 1 capsule by mouth two times a day with meals for 5 days. 10 capsule 0 No current facility-administered medications for this visit. PAST SURGICAL HISTORY Procedure Laterality Date BX BREAST W/DEVICE 1ST LESION ULTRASOUND GUID 08/09/14 U/S mammotome medial right breast and right outer mid BX/EXC LYMPH NODE OPEN DEEP AXILLARY NODE 08-18-14 RIGHT COLECTOMY PARTIAL W ANASTOM with temp ostomy COLONOSCOPY FLX DX W/COLLJ SPEC WHEN PFRMD 08-08-14 INCISION & DRAINAGE PILONIDAL CYST SIMPLE MASTECTOMY, PARTIAL 08-18-14 RIGHT PERQ BREAST LOC DEVICE PLACEMT 1ST LESIO US IMAG 08/16/14 U/S right axillary marking clip placement REMOVAL OF KIDNEY STONE TOTAL ABDOMINAL HYSTERECT W/WO RMVL TUBE OVARY Hysterectomy, TACO FAMILY HISTORY Problem Relation Age of Onset Heart Mother Cancer Father LEUKEMIA Diabetes Father other (dementia) Sister Diabetes Daughter other (neuropathy) Daughter Social History Tobacco Use Smoking status: Never Smokeless tobacco: Never Vaping Use Vaping status: Never Used Substance Use Topics Alcohol use: No Drug use: No Objective BP 136/78 Pulse 75 Temp 36.7 C (98.1 F) Resp 20 Wt 87 kg (191 lb 12.8 oz) SpO2 100% BMI 35.08 kg/m Physical Exam Vitals reviewed. Exam conducted with a watch commander present (Kassidy ARTHUR). Constitutional: Appearance: Normal appearance. HENT: Head: Normocephalic and atraumatic. Cardiovascular: Rate and Rhythm: Normal rate and regular rhythm. Heart sounds: Normal heart sounds. Pulmonary: Effort: Pulmonary effort is normal. Breath sounds: Normal breath sounds. Genitourinary: Exam position: Lithotomy position. Comments: Patient does have some razor burn to the mons pubis area. No abnormal discharge in the vaginal canal. No bleeding. Musculoskeletal: Cervical back: Neck supple. Skin: General: Skin is warm and dry. Neurological: Mental Status: She is alert. Assessment and Plan ASSESSMENT/PLAN: 1. Acute UTI - ICD9: 599.0, ICD10: N39.0 (primary diagnosis) acute - UA positive for francois esterase, hematuria, and nitrates - Send urine for culture - Begin treatment with Macrobid 100 mg BID for 5 days - - UA DIP, URINE (POC) - URINE CULTURE 2. Screening for STD (sexually transmitted disease) - ICD9: V74.5, ICD10: Z11.3 Will treat based on swab results. - GONORRHEA/CHLAMYDIA NAAT - BACTERIAL VAGINOSIS NAAT - ALBA/TRICHOMONAS NAAT 3. Vaginal irritation - ICD9: 623.9, ICD10: N89.8 Given Mycolog cream for irritation. Torrey Dawson PA-C documented in this encounter [facility] 11-18-2023 Telephone encounter Note Patient given results and verbalized understanding of instructions given. Norma Tatum MA [facility] 11-18-2023 Miscellaneous Notes Patient given results and verbalized understanding of instructions given. Norma Tatum MA CXR negative. Please notify patient. Complete ATB and follow up with PCP as needed. Please advise patient. documented in this encounter [facility] 11-18-2023 Telephone encounter Note CXR negative. Please notify patient. Complete ATB and follow up with PCP as needed. Please advise patient. [facility] Work Phone: 11-18-2023 History of Present illness Narrative Radiology Service Progress Note PATIENT NAME: Ilene Shaw DATE OF SERVICE: November 18, 2023 TIME: 10:45 AM PATIENT IDENTITY VERIFICATION COMPLETED USING TWO (2) IDENTIFIERS: Name and Date of confirmed by patient verbally. FALL SCREENING: Has the patient had 2 falls in the last year or 1 fall with injury or currently using an Ambulatory Assistive Device (Walker, Cane, Wheelchair, Crutches, etc.)? No PATIENT GENDER DATA: Female. status: : No status: NO. PATIENT RELEVANT IMPLANT DATA REVIEWED: Yes PATIENT PRESENTS WITH AN IMPLANTABLE OR ATTACHED GAS REGULATOR REPAIRER HELPER: No RADIOLOGY DEPARTMENT: General X-ray: Exam(s) Completed: Chest X-Ray PERIPHERAL IV DATA: Not applicable SIGNED BY: RT Ravi(R) November 18, 2023 10:45 AM documented in this encounter [facility] 11-17-2023 History of Present illness Narrative Subjective HPI Ilene Shaw is a 73 year old female who presents with 2.5 weeks of a cold that won't go away. She has had cough, chest congestion, sinus congestion and drainage, wheezing, and shortness of breath. The cough is productive of green sputum. She feels more tired than usual. States she hears her lungs crackling all night long. She did a telehealth appt (outside facility) and was prescribed tessalon perles. These did not help. She has also used cough drops. No fever at home. Denies pain. Review of Systems Constitutional: Positive for malaise/fatigue. Negative for chills and fever. HENT: Positive for congestion. Negative for ear pain and sore throat. Respiratory: Positive for cough, sputum production, shortness of breath and wheezing. Cardiovascular: Negative for chest pain. Gastrointestinal: Negative for nausea and vomiting. Musculoskeletal: Negative for myalgias. BP 128/80 Pulse 98 Temp 37.3 C (99.1 F) Resp 18 Wt 87.1 kg (192 lb 0.3 oz) SpO2 94% BMI 35.12 kg/m PAST MEDICAL HISTORY Diagnosis Date Adjustment disorder with depressed mood Adnexal cyst Endometriosis Kidney disease renal calculi with litho. 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) PAST SURGICAL HISTORY Procedure Laterality Date BX BREAST W/DEVICE 1ST LESION ULTRASOUND GUID 08/09/14 U/S mammotome medial right breast and right outer mid BX/EXC LYMPH NODE OPEN DEEP AXILLARY NODE 08-18-14 RIGHT COLECTOMY PARTIAL W ANASTOM with temp ostomy COLONOSCOPY FLX DX W/COLLJ SPEC WHEN PFRMD 08-08-14 INCISION & DRAINAGE PILONIDAL CYST SIMPLE MASTECTOMY, PARTIAL 08-18-14 RIGHT PERQ BREAST LOC DEVICE PLACEMT 1ST LESIO US IMAG 08/16/14 U/S right axillary marking clip placement REMOVAL OF KIDNEY STONE TOTAL ABDOMINAL HYSTERECT W/WO RMVL TUBE OVARY Hysterectomy, TACO ALLERGIES Eliquis [Apixaban], Ampicillin, and Xarelto [Rivaroxaban] MEDICATIONS aspirin (ASPIR-81 ORAL) Take 81 mg by mouth once daily. Comp Stocking,Knee,Regular,Med misc Use daily for at least 12 hours escitalopram oxalate (LEXAPRO) 10 mg tablet Take 10 mg by mouth once daily. ALPRAZolam (XANAX) 0.25 mg tablet Take 1 tablet by mouth once daily. doxycycline hyclate (VIBRAMYCIN) 100 mg capsule Take 1 capsule (100 mg) by mouth two times a day for 10 days. predniSONE (DELTASONE) 20 mg tablet Take 2 tablets by mouth once daily for 4 days. Take daily with food. famotidine (PEPCID) 40 mg tablet Take 1 tablet by mouth once daily. FAMILY HISTORY Problem Relation Age of Onset Heart Mother Cancer Father LEUKEMIA Diabetes Father other (dementia) Sister Diabetes Daughter other (neuropathy) Daughter Social History Tobacco Use Smoking status: Never Smokeless tobacco: Never Vaping Use Vaping Use: Never used Substance Use Topics Alcohol use: No Drug use: No Objective Physical Exam Vitals and nursing note reviewed. Constitutional: General: She is not in acute distress. Appearance: Normal appearance. She is not ill-appearing. HENT: Nose: Congestion and rhinorrhea present. Cardiovascular: Rate and Rhythm: Normal rate and regular rhythm. Heart sounds: Normal heart sounds. Pulmonary: Effort: Pulmonary effort is normal. No respiratory distress. Breath sounds: Examination of the right-upper field reveals wheezing. Examination of the left-upper field reveals wheezing. Examination of the right-lower field reveals decreased breath sounds and wheezing. Examination of the left-lower field reveals decreased breath sounds and wheezing. Decreased breath sounds and wheezing present. No rales. Skin: General: Skin is warm and dry. Findings: No erythema or rash. Neurological: Mental Status: She is alert. ASSESSMENT/PLAN: 1. Sinobronchitis - ICD9: 473.9, 490, ICD10: J32.9, J40 (primary diagnosis) - Will begin treatment with as per antibiotic as written, see orders - Supportive care with plenty of fluids, rest, and analgesia prn. - DOXYCYCLINE HYCLATE 100 MG CAPSULE - PREDNISONE 20 MG TABLET 2. Acute cough - ICD9: 786.2, ICD10: R05.1 - XR CHEST 2V FRONTAL/LAT- to be done tomorrow. - if xray shows antibiotic additional antibiotic may be needed. - Follow-up with your PCP in 3-5 days if symptoms have not improved or sooner if symptoms worsen - Discussed red flags and need for immediate medical evaluation if any occur. - Discussed supportive care treatment with fluids, rest and analgesia. - Discussed expected course of illness Elaine Lemus APRN.INSIDE SALES ASSOCIATE documented in this encounter [facility] 11-17-2023 Instructions lEaine Lemus APRN.INSIDE SALES ASSOCIATE - 11/17/2023 6:40 PM EDT ASSESSMENT/PLAN: 1. Sinobronchitis - ICD9: 473.9, 490, ICD10: J32.9, J40 (primary diagnosis) - Will begin treatment with as per antibiotic as written, see orders - Supportive care with plenty of fluids, rest, and analgesia prn. - DOXYCYCLINE HYCLATE 100 MG CAPSULE - PREDNISONE 20 MG TABLET 2. Acute cough - ICD9: 786.2, ICD10: R05.1 - XR CHEST 2V FRONTAL/LAT- to be done tomorrow. - if xray shows antibiotic additional antibiotic may be needed. - Follow-up with your PCP in 3-5 days if symptoms have not improved or sooner if symptoms worsen - Discussed red flags and need for immediate medical evaluation if any occur. - Discussed supportive care treatment with fluids, rest and analgesia. - Discussed expected course of illness Elaine Lemus APRN.LACY ACUTE BRONCHITIS: You have acute bronchitis. This means the airway passages in your lungs are inflamed. Bronchitis may be caused by viruses or bacteria. Inhaling cigarette smoke will always make it worse. Exposure to irritating chemicals or second hand smoke as well as allergies can contribute to bronchitis. Repeat episodes of bronchitis may cause lifelong lung problems. Acute bronchitis is usually treated with rest, fluids, cough medicine, and possibly antibiotics or inhaled medicine to open up the small airways. It is very important that you avoid smoke and drink increased amounts of fluids. A cool air vaporizer can help thin bronchial secretions. This makes it easier to cough and clear your chest. If you are a cigarette smoker, consider using nicotine gum or skin patches to help you withdraw. Recovery from bronchitis is often slow, but you should start feeling better after 2-3 days of treatment. Please call your doctor or return here if you have any of the following symptoms: Increased fever, chills, or chest pain. Severe shortness of breath or bloody sputum. Do not improve after 3 days of proper treatment. documented in this encounter [facility] 10-22-2023 Telephone encounter Note Patient returned call, notified of results, states symptoms are improving with cream and will follow up for any persistent symptoms. Julieth Houston MA [facility] 10-22-2023 Miscellaneous Notes Patient returned call, notified of results, states symptoms are improving with cream and will follow up for any persistent symptoms. Julieth Houston MA Left VM instructing patient to return call to discuss. Julieth Houston MA Please notify labs were positive for yeast. The mycolog cream ordered may be sufficient to treat. Ask how s/s area. If s/s persisting I will order diflucan. documented in this encounter [facility] 10-22-2023 Telephone encounter Note Left VM instructing patient to return call to discuss. Julieth Houston MA [facility] 10-22-2023 Telephone encounter Note Please notify labs were positive for yeast. The mycolog cream ordered may be sufficient to treat. Ask how s/s area. If s/s persisting I will order diflucan. [facility] Work Phone: 10-21-2023 History of Present illness Narrative This note was created using [email or web address] eGifter[employer]. Subjective Ilene Shaw is a 73 year old female. HPI Presents with vaginal itching over the past month. She denies any rash. No discharge. She says she does have some incontinence and wears a pad every day. She denies fever. No urinary frequency or urgency. She denies back pain or abdominal pain. She has tried fluconazole, clotrimazole and witch katerine without relief. Denies known history of atrophic vaginitis. Review of Systems Constitutional: Negative. HENT: Negative. Respiratory: Negative. Cardiovascular: Negative. Gastrointestinal: Negative. Genitourinary: Vaginal itching Musculoskeletal: Negative. All other systems reviewed and are negative. PAST MEDICAL HISTORY Diagnosis Date Adjustment disorder with depressed mood Adnexal cyst Endometriosis Kidney disease renal calculi with litho. 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 Comp Stocking,Knee,Regular,Med misc Use daily for at least 12 hours 1 Each 1 escitalopram oxalate (LEXAPRO) 10 mg tablet Take 10 mg by mouth once daily. ALPRAZolam (XANAX) 0.25 mg tablet Take 1 tablet by mouth once daily. famotidine (PEPCID) 40 mg tablet Take 1 tablet by mouth once daily. 30 tablet 0 No current facility-administered medications for this visit. PAST SURGICAL HISTORY Procedure Laterality Date BX BREAST W/DEVICE 1ST LESION ULTRASOUND GUID 08/09/14 U/S mammotome medial right breast and right outer mid BX/EXC LYMPH NODE OPEN DEEP AXILLARY NODE 08-18-14 RIGHT COLECTOMY PARTIAL W ANASTOM with temp ostomy COLONOSCOPY FLX DX W/COLLJ SPEC WHEN PFRMD 08-08-14 INCISION & DRAINAGE PILONIDAL CYST SIMPLE MASTECTOMY, PARTIAL 08-18-14 RIGHT PERQ BREAST LOC DEVICE PLACEMT 1ST LESIO US IMAG 08/16/14 U/S right axillary marking clip placement REMOVAL OF KIDNEY STONE TOTAL ABDOMINAL HYSTERECT W/WO RMVL TUBE OVARY Hysterectomy, TACO FAMILY HISTORY Problem Relation Age of Onset Heart Mother Cancer Father LEUKEMIA Diabetes Father other (dementia) Sister Diabetes Daughter other (neuropathy) Daughter Social History Tobacco Use Smoking status: Never Smokeless tobacco: Never Vaping Use Vaping Use: Never used Substance Use Topics Alcohol use: No Drug use: No Objective BP 132/82 Pulse 80 Temp 37.2 C (98.9 F) (Tympanic) Resp 18 Wt 88.1 kg (194 lb 3.6 oz) SpO2 97% BMI 35.52 kg/m Physical Exam Vitals reviewed. Constitutional: Appearance: Normal appearance. HENT: Head: Normocephalic and atraumatic. Genitourinary: Comments: Deferred exam Skin: General: Skin is warm and dry. Neurological: General: No focal deficit present. Mental Status: She is alert and oriented to person, place, and time. Assessment and Plan ASSESSMENT/PLAN: 1. Vaginal itching - ICD9: 698.1, ICD10: N89.8 Urine dip was clean. Swabs for BV and yeast are pending. I did send Mycolog to help with itching. Did discuss possibility of atrophic vaginitis if swabs come back negative and to follow-up with women's health. Patient agreeable with plan. - UA DIP, URINE (POC) - BACTERIAL VAGINOSIS NAAT - ALBA/TRICHOMONAS NAAT Torrey Dawosn PA-C documented in this encounter [facility] 09-30-2023 History of Present illness Narrative Radiology Service Progress Note PATIENT NAME: Ilene Shaw DATE OF SERVICE: September 30, 2023 TIME: 2:39 PM PATIENT IDENTITY VERIFICATION COMPLETED USING TWO (2) IDENTIFIERS: Name and Date of confirmed by patient verbally. FALL SCREENING: Has the patient had 2 falls in the last year or 1 fall with injury or currently using an Ambulatory Assistive Device (Walker, Cane, Wheelchair, Crutches, etc.)? No PATIENT GENDER DATA: Female. status: : No status: NO. PATIENT RELEVANT IMPLANT DATA REVIEWED: Not Applicable PATIENT PRESENTS WITH AN IMPLANTABLE OR ATTACHED GAS REGULATOR REPAIRER HELPER: No RADIOLOGY DEPARTMENT: Mammography PERIPHERAL IV DATA: Not applicable SIGNED BY: Nory Malino Maciel September 30, 2023 2:39 PM documented in this encounter [facility] 09-07-2023 History of Present illness Narrative Radiology Service Progress Note PATIENT NAME: Ilene Shaw DATE OF SERVICE: September 07, 2023 TIME: 1:50 PM PATIENT IDENTITY VERIFICATION COMPLETED USING TWO (2) IDENTIFIERS: Name and Date of confirmed by patient verbally. FALL SCREENING: Has the patient had 2 falls in the last year or 1 fall with injury or currently using an Ambulatory Assistive Device (Walker, Cane, Wheelchair, Crutches, etc.)? No PATIENT GENDER DATA: Female. status: : No status: NO. PATIENT RELEVANT IMPLANT DATA REVIEWED: Not Applicable PATIENT PRESENTS WITH AN IMPLANTABLE OR ATTACHED GAS REGULATOR REPAIRER HELPER: No RADIOLOGY DEPARTMENT: Mammography PERIPHERAL IV DATA: Not applicable SIGNED BY: Hannah Kohler [employer] [employer] September 07, 2023 1:50 PM documented in this encounter [facility] 09-04-2023 Miscellaneous Notes The order is already filed, do I need to re-enter it? Can you release the mammogram order? Pt scheduled with us 09/06. Thanks a million documented in this encounter [facility] 09-01-2023 Miscellaneous Notes Mammo already scheduled per pt. Mattie Samayoa MA OK. Please schedule PCP: Jennifer Santos MD Last seen in oncology 2021. Zofia Donnelly ordered mammogram 2022, follow up appt oncology scheduled. Pt calls to request order for mammogram. In the past few years oncology ordered mammograms because of pt's hx of breast cancer. This time pt was advised that pcp office could order mammogram.See TE 08/31/23. Call pt when mammogram has been ordered. Micaela Beaulieu LPN documented in this encounter [facility] 08-31-2023 Miscellaneous Notes Detailed message left on patient's identified VM. Bonnie Ibarra LPN Pt. 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 Follow up here as needed. Thank you. Zofia Donnelly APRN.INSIDE SALES ASSOCIATE Patient has not been seen here since 10/28/2021. She cancelled her OV 08/19/2022, and never rescheduled. Bonnie Ibarra LPN Patient is calling to schedule mammography please place orders and advise if patient also needs a follow up with you. documented in this encounter [facility] 08-28-2023 Hospital Discharge instructions Patient Education 08/28/2023 18:55:31 Subconjunctival Hemorrhage Subconjunctival Hemorrhage A subconjunctival hemorrhage is a result of a broken blood vessel in the white part of the eye. It is usually painless and may be caused by coughing, sneezing, or vomiting. An injury to the eye can cause this. It can also be a sign of high blood pressure (hypertension) or a bleeding disorder. This can look frightening. But the presence of the blood is not serious. The blood will be reabsorbed without treatment within 2 to 3 weeks. Home care You may continue your usual activities. Follow-up care Follow up with your healthcare provider, or as advised. When to seek medical advice Contact your healthcare provider right away if any of these occur: Pain in the eye Change in vision The blood does not go away within 3 weeks Increasing redness or swelling of the eye Severe headache or dizziness Signs of bruising or bleeding from other parts of your body [id number] [employer]. [address] [place] [address], [place] [address]. All rights reserved. This information is not intended as a substitute for professional medical care. Always follow your healthcare professional's instructions. Follow Up Care 08/28/2023 18:24:22 With:JENNIFER SANTOS MD Address: [address] [place] [id number]- [facility] Note Discharge Instructions Thank you for allowing [facility] to assist you with your healthcare needs. The following is important discharge information regarding your hospital visit. Diagnosis from Today's Visit Eye problem Subconjunctival hemorrhage What to Do Next Instructions from Your Care Team No qualifying data available. Post Acute Orders No qualifying data available. You Need to Schedule the Following Appointments Follow Up with JENNIFER SANTOS MD When Within 2-4 days Where: [address] [place] [address]- Allergies ampicillin predniSONE Medications Please ask your primary doctor or pharmacist before taking any other medication not listed, including over the counter drugs, herbal medications, vitamins and or supplements as they may interact with your home medications. What How Much When Instructions Last Dose Unchanged ALPRAZolam (ALPRAZolam 0.25 mg oral tablet) 1 tab(s) by mouth Every 12 hours as needed for as needed for anxiety Unchanged dabigatran (Pradaxa 150 mg oral capsule) TAKE 1 CAPSULE BY MOUTH TWICE DAILY Unchanged fluconazole (fluconazole 150 mg oral tablet) TAKE 1 TABLET BY MOUTH EVERY 3 DAYS for 2 (TWO) doses Please take this list to your next doctor s visit. Bring all medications you take, including over the counter medications, herbals and other supplements with you to your doctor s visit. Patients and families are reminded to discard old lists and to update any records with all medication providers or retail pharmacies. Education Materials Subconjunctival Hemorrhage A subconjunctival hemorrhage is a result of a broken blood vessel in the white part of the eye. It is usually painless and may be caused by coughing, sneezing, or vomiting. An injury to the eye can cause this. It can also be a sign of high blood pressure (hypertension) or a bleeding disorder. This can look frightening. But the presence of the blood is not serious. The blood will be reabsorbed without treatment within 2 to 3 weeks. Home care You may continue your usual activities. Follow-up care Follow up with your healthcare provider, or as advised. When to seek medical advice Contact your healthcare provider right away if any of these occur: Pain in the eye Change in vision The blood does not go away within 3 weeks Increasing redness or swelling of the eye Severe headache or dizziness Signs of bruising or bleeding from other parts of your body [id number] [employer]. [address] [place] [address]. All rights reserved. This information is not intended as a substitute for professional medical care. Always follow your healthcare professional's instructions. Additional Information VACCINATE! IT SAVES LIVES! Members of the community who have not yet received the COVID-19 vaccine and would like to receive it can visit one of [facility] vaccine clinics. There are many vaccine clinic locations within the [facility]. For locations and available times, please visit [email or web address] It is important to note that some COVID mobile vaccine clinics are held outdoors and may be canceled in rainy or stormy conditions. To learn more about pediatric vaccinations (ages 5-11), we invite you to visit the [facility] webpage. [email or web address] To learn more about the COVID-19 vaccine, we invite you to visit the CDC website for a list of frequently asked questions. https://www.cdc.gov/coronavirus/2 019-ncov/vaccines/faq.html [employer] Patient Portal Access Instructions: Stay connected with your healthcare team and access your personal medical information anytime with the [employer] Patient Portal. If you would like a full copy of your medical records please contact the [facility] Medical Records Department Thursday through Thursday between 8a.m. and 4:30p.m. Please follow the directions below to access the portal: 1.Access the email account you provided upon registration to the [facility].2.Look for an invitation email from [facility].3.Open the email and access the invitation link: Accept Invitation to [facility]4.Fill in the required ness to create your account. Sign into [email or web address] with your username and password that you created in the above steps to stay up to date. You can then view a summary of results, a summary of your visits, and the ability to download your summaries to your computer or send the information securely to a physician. Remember that your healthcare information is confidential, so carefully consider who you will allow to register on the [employer] Patient Portal for access to your information. You can also access the [employer] Patient Portal on the [employer] inez. Simply click on Health Records under Health Data and then click on the [employer] logo. HOW TO SAFELY DISPOSE OF PRESCRIPTION MEDICATIONS Please use one of the following methods to safely dispose of your unused medications. 1.Use a drug disposal kit: the drug disposal pouch allows you to safely discard your old and unused drugs. Ask your nurse to give you one when you are discharged.2.Visit a local take-back location: Many local pharmacies and police departments have programs that collect old and unwanted prescription drugs. Call your local pharmacy or go to http://BuffaloPacific/7L2Tr7n to find one close to you.3.Make use of household items: Use cat litter or old coffee grounds to dispose medications if other options are not available. Mix your drugs with these household products, seal them in an airtight container and throw it into the garbage. Call [facility]: [phone] to be sure your drugs can be disposed of in this way. Some medicines may require a different approach.4.Never flush your medications down the toilet. IF YOU HAVE BEEN PRESCRIBED AN OPIOIDS FOR PAIN If you have been prescribed an opioid (such as hydrocodone, oxycodone or morphine), it is critical to understand the possible side effects and risks of opioid pain medications. Even when taken as directed, opioids can have several side effects including: Tolerance, meaning you might need to take more of a medication for the same pain relief. Nausea, vomiting and/or constipation. Sleepiness, dizziness, dry mouth, confusion, depression or itching. Physical dependence, meaning you have withdrawal symptoms when a medication is stopped ? this can develop within a few days. KNOW YOUR RESPONSIBILITIES It is important to know exactly how much and how often to take the opioid pain medications you are prescribed. Never take opioids in higher amounts or more often than prescribed. Do not combine opioids with alcohol or other drugs that cause drowsiness, such as benzodiazepines, also known as benzos, including diazepam and alprazolam, muscle relaxants or sleep aids. Never sell or share prescription opioids. This is illegal. Store opioids in a secure place and out of reach of others (including children, family, friends and visitors). The last page(s) of this document has been signed and retained as a CHART COPY Signatures Patient Education Materials Subconjunctival Hemorrhage Medication Leaflets My discharge plan and instructions have been reviewed and explained to me and I,ILENE SHAW understand my current condition and have read and understand these discharge instructions. I have received a written copy of the plan/instructions. If I have questions, I am aware that I should contact my doctor. 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 08-28-2023 History of Present illness Narrative PSS staff requests triage. Patient presents with complaints of right eye redness and blurred vision Denies trauma or injury Denies itching Denies pain Given her presentation at 1630 on a Thursday night with visual disturbances, she requires higher level of care. [facility] without appts for the day Referred to ED documented in this encounter [facility] 05-22-2023 History of Present illness Narrative This note was created using NoteWriter. Subjective Patient presents with: ER F/U: [facility] 05/07/23- facial swelling PCP MD Ilene Chisholmivania is a 73 year old female who developed facial and upper lip swelling . She went to the [facility] ER, and was treated with IV decadron, diphenhydramine, and sent home on a Medrol pack. She was better, although, she had vague sensations in the upper lip off and on. Other symptoms were a rash of the left medial proximal arm. She had no unusual food intake, or use of new soaps or cosmetics. She had no viral syndrome. 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 Her medications had not changed and were coming from her psychiatrist. Review of Systems Constitutional: Negative for appetite change, fatigue and fever. HENT: Negative for congestion, hearing loss, mouth sores, nosebleeds, sinus pain and sore throat. Eyes: Negative for visual disturbance. Respiratory: Negative for cough, shortness of breath and wheezing. Cardiovascular: Negative for chest pain and palpitations. Gastrointestinal: Negative for abdominal pain, nausea and vomiting. Genitourinary: Negative for dysuria. 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 Comp Stocking,Knee,Regular,Med misc Use daily for at least 12 hours escitalopram oxalate (LEXAPRO) 10 mg tablet Take 10 mg by mouth once daily. ALPRAZolam (XANAX) 0.25 mg tablet Take 1 tablet by mouth once daily. methylPREDNISolone (MEDROL DOSE-PACK) 4 mg Dose-Pack Take by mouth as directed. Per package instructions (Patient not taking: Reported on 05/21/2023) loratadine (CLARITIN) 10 mg tablet Take 1 tablet by mouth once daily. famotidine (PEPCID) 40 mg tablet Take 1 tablet by mouth once daily. No current facility-administered medications for this visit. Objective BP 136/86 Pulse 92 Temp 36.1 C (96.9 F) (Temporal) Resp 16 Wt 87.5 kg (192 lb 14.4 oz) SpO2 99% BMI 35.28 kg/m Physical Exam Constitutional: General: She is not in acute distress. Appearance: She is not ill-appearing. HENT: Head: Normocephalic. Right Ear: Tympanic membrane normal. Left Ear: Tympanic membrane normal. Nose: No congestion or rhinorrhea. Mouth/Throat: Mouth: Mucous membranes are moist. Pharynx: Oropharynx is clear. Comments: Mild puffiness upper lips. No facial or periorbital swelling. Eyes: Conjunctiva/sclera: Conjunctivae normal. Cardiovascular: Rate and Rhythm: Normal rate and regular rhythm. Pulmonary: Effort: No respiratory distress. Breath sounds: No wheezing or rales. Abdominal: Palpations: Abdomen is soft. Tenderness: There is no abdominal tenderness. Musculoskeletal: Cervical back: Neck supple. Right lower leg: No edema. Left lower leg: No edema. Lymphadenopathy: Cervical: No cervical adenopathy. Skin: Findings: No rash. Neurological: Mental Status: She is alert. Assessment and Plan 1. Angioedema of lips, subsequent encounter - ICD9: V58.89, 995.1, ICD10: T78.3XXD Probably viral. Baseline labs. - CBC - COMP METABOLIC PANEL - LORATADINE 10 MG TABLET. Take daily x 1 month. - FAMOTIDINE 40 MG TABLET. Take daily x 1 month. Rolf Burger MD documented in this encounter [facility] 05-21-2023 History of Present illness Narrative [facility] Triage Note: Patient presents to the [facility] with complaint of lip swelling. She had been treated in the ER for lip and face swelling 05/07/23 with medrol and benadryl. She had left lip swelling returned yesterday. It is improving today. No shortness of breath or wheezing. Scheduled with internal medicine for ER follow up today. documented in this encounter [facility] 05-08-2023 Hospital Discharge instructions Patient Education 05/07/2023 22:57:05 Allergic Reaction, Other (General) General Allergic Reactions An allergic reaction is a set of symptoms caused by an allergen. An allergen is something that causes a person s immune system to react. When a person comes in contact with an allergen, it causes the body to release chemicals. These include the chemical histamine. Histamine causes swelling and itching. It may affect the entire body. This is called a general allergic reaction. Often symptoms affect only 1 part of the body. This is called a local allergic reaction. You are having an allergic reaction. Almost anything can cause one. Different people are allergic to different things. It is usually something that you ate or swallowed, came into contact with by getting or putting it on your skin or clothes, or something you breathed in the air. This can be very annoying and sometimes scary. Most of us think of allergic reactions when we have a rash or itchy skin. Symptoms can include: Itching of the eyes, nose, and roof of the mouth Runny or stuffy nose Watery eyes Sneezing or coughing A blocked feeling in the ear Red, itchy rash called hives Red and purple spots Rash, redness, welts, blisters Itching, burning, stinging, pain Dry, flaky, cracking, scaly skin Severe symptoms include: Swelling of the face, lips, or other parts of the body Hoarse voice Trouble swallowing, feeling like your throat is closing Trouble breathing, wheezing Nausea, vomiting, diarrhea, stomach cramps Feeling faint or lightheaded, rapid heart rate Sometimes the cause may be obvious. But there are so many things that can cause a reaction that you may not be able to figure out. The most important things to help find your allergen are: Remembering when it started What you were doing at the time or just before that Any activities you were involved in Any new products or contacts Below are some common causes. But remember that almost anything can cause a reaction. You may not even be aware that you came into contact with one of these things: Dust, mold, pollen Plants (common ones are poison lesly and poison oak, but there are many others) Animals Foods such as shrimp, shellfish, peanuts, milk products, gluten, and eggs. Also food colorings, flavorings, and additives. Insect bites or stings such as bees, mosquitos, fleas, ticks Medicines such as penicillin, sulfa medicines, amoxicillin, aspirin, and ibuprofen. But any medicine can cause a reaction. Jewelry such as nickel or gold. This can be new, or something you ve worn for a while, including zippers and buttons. Latex such as in gloves, clothes, toys, balloons, or some tapes. Some people allergic to latex may also have problems with foods like bananas, avocados, kiwi, papaya, or chestnuts. Lotions, perfumes, cosmetics, soaps, shampoos, skincare products, nail products Chemicals or dyes in clothing, linen, high pressure boiler operator, hair dyes, soaps, iodine Many viruses and common colds can cause a rash that is not an allergic reaction. Sometimes it is hard to tell the difference between allergies, sensitivity, or an intolerance to something. This is especially true with food. Many things can cause diarrhea, vomiting, stomach cramps, and skin irritation. Home care The goal of treatment is to help relieve the symptoms and get you feeling better. The rash will usually fade over several days. But it can sometimes last a couple of weeks. Over the next couple of days, there may be times when it is gets a little worse, and then better again. Here are some things to do: If you know what you are allergic to, stay away from it. Future reactions could be worse than this one. Avoid tight clothing and anything that heats up your skin (hot showers or baths, direct sunlight). Heat will make itching worse. An ice pack will relieve local areas of intense itching and redness. To make an ice pack, put ice cubes in a plastic bag that seals at the top. Wrap it in a thin, clean towel. Don t put the ice directly on the skin because it can damage the skin. Oral diphenhydramine is an turq-qlo-oprruzf antihistamine sold at pharmacy and grocery stores. Unless a prescription antihistamine was given, diphenhydramine may be used to reduce itching if large areas of the skin are involved. It may make you sleepy. So be careful using it in the daytime or when going to school, working, or driving. Note: Don t use diphenhydramine if you have glaucoma or if you are a man with trouble urinating due to an enlarged prostate. There are other antihistamines that won t make you so sleepy. These are good choices for daytime use. Ask your pharmacist for suggestions. Don t use diphenhydramine cream on your skin. It can cause a further reaction in some people. To help prevent an infection, don't scratch the affected area. Scratching may worsen the reaction and damage your skin. It can also lead to an infection. Always check the affected for signs of an infection. Call your healthcare provider and ask what you can use to help decrease the itching. To decrease allergic reactions, try the following: Use heat-steam to clean your home Use high-efficiency particulate (HEPA) vacuums and filters Stay away from food and pet triggers Kill any cockroaches Clean your house often Follow-up care Follow up with your healthcare provider, or as advised. If you had a severe reaction today, or if you have had several mild to medium allergic reactions in the past, ask your provider about allergy testing. This can help you find out what you are allergic to. If your reaction included dizziness, fainting, or trouble breathing or swallowing, ask your provider about carrying auto-injectable epinephrine. Call 911 Call 911 if any of these occur: Trouble breathing or swallowing, wheezing Cool, moist, pale skin Shortness of breath Hoarse voice or trouble speaking Confused Very drowsy or trouble awakening Fainting or loss of consciousness Rapid heart rate Feeling of dizziness or weakness or a sudden drop in blood pressure Feeling of doom Feeling lightheaded Severe nausea or vomiting, or diarrhea Seizure Swelling in the face, eyelids, lips, mouth, throat or tongue Drooling When to seek medical advice Call your healthcare provider right away if any of these occur: Spreading areas of itching, redness or swelling Nausea or stomach cramps or abdominal pain Continuing or recurring symptoms Spreading areas of redness, swelling, or itching Signs of infection at the affected site: oSpreading redness oIncreased pain or swelling oFluid or colored drainage from the site oFever of 100.4 F (38 C) or above lasting for 24 to 48 hours, or as directed by your provider [id number] [employer]. [address] [place] [address]. All rights reserved. This information is not intended as a substitute for professional medical care. Always follow your healthcare professional's instructions. Follow Up Care 05/07/2023 22:34:33 With:JENNIFER SANTOS MD Address: [address] [place] [address]- [facility] Note Discharge Instructions Thank you for allowing [facility] to assist you with your healthcare needs. The following is important discharge information regarding your hospital visit. Diagnosis from Today's Visit Lip swelling Lip swelling What to Do Next Instructions from Your Care Team No qualifying data available. Post Acute Orders No qualifying data available. You Need to Schedule the Following Appointments Follow Up with JENNIFER SANTOS MD When Within 2-4 days Where: [address] [place] [address]- Allergies ampicillin predniSONE Medications Please ask your primary doctor or pharmacist before taking any other medication not listed, including over the counter drugs, herbal medications, vitamins and or supplements as they may interact with your home medications. What How Much When Instructions Last Dose New methylPREDNISolone (Medrol Dosepak 4 mg oral tablet) Per Dosepak Instructions by mouth Every day Duration: 6 Days as directed on package labeling Printed Prescription Unchanged ALPRAZolam (ALPRAZolam 0.25 mg oral tablet) 1 tab(s) by mouth Every 12 hours as needed for as needed for anxiety Unchanged dabigatran (Pradaxa 150 mg oral capsule) TAKE 1 CAPSULE BY MOUTH TWICE DAILY Unchanged fluconazole (fluconazole 150 mg oral tablet) TAKE 1 TABLET BY MOUTH EVERY 3 DAYS for 2 (TWO) doses Please take this list to your next doctor s visit. Bring all medications you take, including over the counter medications, herbals and other supplements with you to your doctor s visit. Patients and families are reminded to discard old lists and to update any records with all medication providers or retail pharmacies. Medication Leaflets methylprednisolone (oral) (METH il pred NIS oh lone) Medrol, Medrol Dosepak, MethylPREDNISolone Dose Pack What is the most important information I should know about methylprednisolone? You should not use this medicine if you have a fungal infection anywhere in your body. What is methylprednisolone? Methylprednisolone is a steroid that prevents the release of substances in the body that cause inflammation. Methylprednisolone is used to treat many different inflammatory conditions such as arthritis, lupus, psoriasis, ulcerative colitis, allergic disorders, gland (endocrine) disorders, and conditions that affect the skin, eyes, lungs, stomach, nervous system, or blood cells. Methylprednisolone may also be used for purposes not listed in this medication guide. What should I discuss with my healthcare provider before taking methylprednisolone? You should not use methylprednisolone if you are allergic to it, or if you have: a fungal infection anywhere in your body. Methylprednisolone can weaken your immune system, making it easier for you to get an infection. Steroids can also worsen an infection you already have, or reactivate an infection you recently had. Tell your doctor about any illness or infection you have had within the past several weeks. To make sure methylprednisolone is safe for you, tell your doctor if you have ever had: a thyroid disorder; herpes infection of the eyes; stomach ulcers, ulcerative colitis, or diverticulitis; depression, mental illness, or psychosis; liver disease (especially cirrhosis); high blood pressure; osteoporosis; a muscle disorder such as myasthenia gravis; or multiple sclerosis. Also tell your doctor if you have diabetes. Steroid medicines may increase the glucose (sugar) levels in your blood or urine. You may also need to adjust the dose of your diabetes medications. It is not known whether this medicine will harm an unborn baby. Tell your doctor if you are or plan to become . It is not known whether methylprednisolone passes into breast milk or if it could affect the nursing baby. Tell your doctor if you are breast-feeding. How should I take methylprednisolone? Follow all directions on your prescription label. Your doctor may occasionally change your dose. Do not use this medicine in larger or smaller amounts or for longer than recommended. Methylprednisolone is sometimes taken every other day. Follow your doctor's dosing instructions very carefully. Your dose needs may change if you have unusual stress such as a serious illness, fever or infection, or if you have surgery or a medical emergency. Tell your doctor about any such situation that affects you. This medicine can cause unusual results with certain medical tests. Tell any doctor who treats you that you are using methylprednisolone. You should not stop using methylprednisolone suddenly. Follow your doctor's instructions about tapering your dose. Wear a medical alert tag or carry an ID card stating that you take methylprednisolone. Any medical care provider who treats you should know that you take steroid medication. If you need surgery, tell the surgeon ahead of time that you are using methylprednisolone. You may need to stop using the medicine for a short time. Store at room temperature away from moisture and heat. What happens if I miss a dose? Call your doctor for instructions if you miss a dose of methylprednisolone. What happens if I overdose? Seek emergency medical attention or call the Poison Help line at . An overdose of methylprednisolone is not expected to produce life threatening symptoms. However, jail use of high steroid doses can lead to symptoms such as thinning skin, easy bruising, changes in the shape or location of body fat (especially in your face, neck, back, and waist), increased acne or facial hair, menstrual problems, impotence, or loss of interest in sex. What should I avoid while taking methylprednisolone? Avoid being near people who are sick or have infections. Call your doctor for preventive treatment if you are exposed to chicken pox or measles. These conditions can be serious or even fatal in people who are using steroid medication. Do not receive a 'live' vaccine while using methylprednisolone. The vaccine may not work as well during this time, and may not fully protect you from disease. Live vaccines include measles, mumps, rubella (MMR), polio, rotavirus, typhoid, yellow fever, varicella (chickenpox), zoster (shingles), and nasal flu (influenza) vaccine. What are the possible side effects of methylprednisolone? Get emergency medical help if you have signs of an allergic reaction: hives; difficult breathing; swelling of your face, lips, tongue, or throat. Call your doctor at once if you have: shortness of breath (even with mild exertion), swelling, rapid weight gain; bruising, thinning skin, or any wound that will not heal; blurred vision, tunnel vision, eye pain, or seeing halos around lights; severe depression, changes in personality, unusual thoughts or behavior; new or unusual pain in an arm or leg or in your back; bloody or tarry stools, coughing up blood or vomit that looks like coffee grounds; seizure (convulsions); or low potassium--leg cramps, constipation, irregular heartbeats, fluttering in your chest, increased thirst or urination, numbness or tingling. Steroids can affect growth in children. Tell your doctor if your child is not growing at a normal rate while using this medicine. Common side effects may include: fluid retention (swelling in your hands or ankles); dizziness, spinning sensation; changes in your menstrual periods; headache; mild muscle pain or weakness; or stomach discomfort, bloating. This is not a complete list of side effects and others may occur. Call your doctor for medical advice about side effects. You may report side effects to FDA at 0-578-XQQ-0502. What other drugs will affect methylprednisolone? Other drugs may interact with methylprednisolone, including prescription and hfki-hhz-mlqfgmf medicines, vitamins, and herbal products. Tell each of your health care providers about all medicines you use now and any medicine you start or stop using. Where can I get more information? Your pharmacist can provide more information about methylprednisolone. Remember, keep this and all other medicines out of the reach of children, never share your medicines with others, and use this medication only for the indication prescribed. Every effort has been made to ensure that the information provided by [employer]. ('[employer]') is accurate, up-to-date, and complete, but no guarantee is made to that effect. Drug information contained herein may be time sensitive. [employer] information has been compiled for use by healthcare practitioners and consumers in the [place] and therefore [employer] does not warrant that uses outside of the [place] are appropriate, unless specifically indicated otherwise. [employer] drug information does not endorse drugs, diagnose patients or recommend therapy. [employer] drug information is an informational resource designed to assist licensed healthcare practitioners in caring for their patients and/or to serve consumers viewing this service as a supplement to, and not a substitute for, the expertise, skill, knowledge and judgment of healthcare practitioners. The absence of a warning for a given drug or drug combination in no way should be construed to indicate that the drug or drug combination is safe, effective or appropriate for any given patient. [employer] does not assume any responsibility for any aspect of healthcare administered with the aid of information [employer] provides. The information contained herein is not intended to cover all possible uses, directions, precautions, warnings, drug interactions, allergic reactions, or adverse effects. If you have questions about the drugs you are taking, check with your doctor, nurse or pharmacist. Copyright 6865-5078 [employer]. Version: 9.01. Revision Date: 02/11/2017. Education Materials General Allergic Reactions An allergic reaction is a set of symptoms caused by an allergen. An allergen is something that causes a person s immune system to react. When a person comes in contact with an allergen, it causes the body to release chemicals. These include the chemical histamine. Histamine causes swelling and itching. It may affect the entire body. This is called a general allergic reaction. Often symptoms affect only 1 part of the body. This is called a local allergic reaction. You are having an allergic reaction. Almost anything can cause one. Different people are allergic to different things. It is usually something that you ate or swallowed, came into contact with by getting or putting it on your skin or clothes, or something you breathed in the air. This can be very annoying and sometimes scary. Most of us think of allergic reactions when we have a rash or itchy skin. Symptoms can include: Itching of the eyes, nose, and roof of the mouth Runny or stuffy nose Watery eyes Sneezing or coughing A blocked feeling in the ear Red, itchy rash called hives Red and purple spots Rash, redness, welts, blisters Itching, burning, stinging, pain Dry, flaky, cracking, scaly skin Severe symptoms include: Swelling of the face, lips, or other parts of the body Hoarse voice Trouble swallowing, feeling like your throat is closing Trouble breathing, wheezing Nausea, vomiting, diarrhea, stomach cramps Feeling faint or lightheaded, rapid heart rate Sometimes the cause may be obvious. But there are so many things that can cause a reaction that you may not be able to figure out. The most important things to help find your allergen are: Remembering when it started What you were doing at the time or just before that Any activities you were involved in Any new products or contacts Below are some common causes. But remember that almost anything can cause a reaction. You may not even be aware that you came into contact with one of these things: Dust, mold, pollen Plants (common ones are poison lesly and poison oak, but there are many others) Animals Foods such as shrimp, shellfish, peanuts, milk products, gluten, and eggs. Also food colorings, flavorings, and additives. Insect bites or stings such as bees, mosquitos, fleas, ticks Medicines such as penicillin, sulfa medicines, amoxicillin, aspirin, and ibuprofen. But any medicine can cause a reaction. Jewelry such as nickel or gold. This can be new, or something you ve worn for a while, including zippers and buttons. Latex such as in gloves, clothes, toys, balloons, or some tapes. Some people allergic to latex may also have problems with foods like bananas, avocados, kiwi, papaya, or chestnuts. Lotions, perfumes, cosmetics, soaps, shampoos, skincare products, nail products Chemicals or dyes in clothing, linen, high pressure boiler operator, hair dyes, soaps, iodine Many viruses and common colds can cause a rash that is not an allergic reaction. Sometimes it is hard to tell the difference between allergies, sensitivity, or an intolerance to something. This is especially true with food. Many things can cause diarrhea, vomiting, stomach cramps, and skin irritation. Home care The goal of treatment is to help relieve the symptoms and get you feeling better. The rash will usually fade over several days. But it can sometimes last a couple of weeks. Over the next couple of days, there may be times when it is gets a little worse, and then better again. Here are some things to do: If you know what you are allergic to, stay away from it. Future reactions could be worse than this one. Avoid tight clothing and anything that heats up your skin (hot showers or baths, direct sunlight). Heat will make itching worse. An ice pack will relieve local areas of intense itching and redness. To make an ice pack, put ice cubes in a plastic bag that seals at the top. Wrap it in a thin, clean towel. Don t put the ice directly on the skin because it can damage the skin. Oral diphenhydramine is an kuxn-nmh-zhvqvoc antihistamine sold at pharmacy and grocery stores. Unless a prescription antihistamine was given, diphenhydramine may be used to reduce itching if large areas of the skin are involved. It may make you sleepy. So be careful using it in the daytime or when going to school, working, or driving. Note: Don t use diphenhydramine if you have glaucoma or if you are a man with trouble urinating due to an enlarged prostate. There are other antihistamines that won t make you so sleepy. These are good choices for daytime use. Ask your pharmacist for suggestions. Don t use diphenhydramine cream on your skin. It can cause a further reaction in some people. To help prevent an infection, don't scratch the affected area. Scratching may worsen the reaction and damage your skin. It can also lead to an infection. Always check the affected for signs of an infection. Call your healthcare provider and ask what you can use to help decrease the itching. To decrease allergic reactions, try the following: Use heat-steam to clean your home Use high-efficiency particulate (HEPA) vacuums and filters Stay away from food and pet triggers Kill any cockroaches Clean your house often Follow-up care Follow up with your healthcare provider, or as advised. If you had a severe reaction today, or if you have had several mild to medium allergic reactions in the past, ask your provider about allergy testing. This can help you find out what you are allergic to. If your reaction included dizziness, fainting, or trouble breathing or swallowing, ask your provider about carrying auto-injectable epinephrine. Call 911 Call 911 if any of these occur: Trouble breathing or swallowing, wheezing Cool, moist, pale skin Shortness of breath Hoarse voice or trouble speaking Confused Very drowsy or trouble awakening Fainting or loss of consciousness Rapid heart rate Feeling of dizziness or weakness or a sudden drop in blood pressure Feeling of doom Feeling lightheaded Severe nausea or vomiting, or diarrhea Seizure Swelling in the face, eyelids, lips, mouth, throat or tongue Drooling When to seek medical advice Call your healthcare provider right away if any of these occur: Spreading areas of itching, redness or swelling Nausea or stomach cramps or abdominal pain Continuing or recurring symptoms Spreading areas of redness, swelling, or itching Signs of infection at the affected site: oSpreading redness oIncreased pain or swelling oFluid or colored drainage from the site oFever of 100.4 F (38 C) or above lasting for 24 to 48 hours, or as directed by your provider [id number] [employer]. [address] [place] [address], [place] [address]. All rights reserved. This information is not intended as a substitute for professional medical care. Always follow your healthcare professional's instructions. Additional Information VACCINATE! IT SAVES LIVES! Members of the community who have not yet received the COVID-19 vaccine and would like to receive it can visit one of [facility] vaccine clinics. There are many vaccine clinic locations within the [facility]. For locations and available times, please visit [email or web address] [email or web address] It is important to note that some COVID mobile vaccine clinics are held outdoors and may be canceled in rainy or stormy conditions. To learn more about pediatric vaccinations (ages 5-11), we invite you to visit the [facility] webpage. [email or web address]://[email or web address] [email or web address]-Freque [email or web address]-[email or web address].html To learn more about the COVID-19 vaccine, we invite you to visit the CDC website for a list of frequently asked questions. https://www.cdc.gov/coronavirus/2 019-ncov/vaccines/faq.html [facility] Patient Portal Access Instructions: Stay connected with your healthcare team and access your personal medical information anytime with the [facility] Patient Portal. If you would like a full copy of your medical records please contact the [facility] Medical Records Department Thursday through Thursday between 8a.m. and 4:30p.m. Please follow the directions below to access the portal: 1.Access the email account you provided upon registration to the hospital.2.Look for an invitation email from [facility].3.Open the email and access the invitation link: Accept Invitation to [facility]4.Fill in the required ness to create your account. Sign into [email or web address] with your username and password that you created in the above steps to stay up to date. You can then view a summary of results, a summary of your visits, and the ability to download your summaries to your computer or send the information securely to a physician. Remember that your healthcare information is confidential, so carefully consider who you will allow to register on the [facility] Patient Portal for access to your information. You can also access the [facility] Patient Portal on the [employer] inez. Simply click on Health Records under Health Data and then click on the [employer] logo. HOW TO SAFELY DISPOSE OF PRESCRIPTION MEDICATIONS Please use one of the following methods to safely dispose of your unused medications. 1.Use a drug disposal kit: the drug disposal pouch allows you to safely discard your old and unused drugs. Ask your nurse to give you one when you are discharged.2.Visit a local take-back location: Many local pharmacies and police departments have programs that collect old and unwanted prescription drugs. Call your local pharmacy or go to http://[facility] [employer]./7O5Yl9w to find one close to you.3.Make use of household items: Use cat litter or old coffee grounds to dispose medications if other options are not available. Mix your drugs with these household products, seal them in an airtight container and throw it into the garbage. Call [facility]: [phone] to be sure your drugs can be disposed of in this way. Some medicines may require a different approach.4.Never flush your medications down the toilet. IF YOU HAVE BEEN PRESCRIBED AN OPIOIDS FOR PAIN If you have been prescribed an opioid (such as hydrocodone, oxycodone or morphine), it is critical to understand the possible side effects and risks of opioid pain medications. Even when taken as directed, opioids can have several side effects including: Tolerance, meaning you might need to take more of a medication for the same pain relief. Nausea, vomiting and/or constipation. Sleepiness, dizziness, dry mouth, confusion, depression or itching. Physical dependence, meaning you have withdrawal symptoms when a medication is stopped ? this can develop within a few days. KNOW YOUR RESPONSIBILITIES It is important to know exactly how much and how often to take the opioid pain medications you are prescribed. Never take opioids in higher amounts or more often than prescribed. Do not combine opioids with alcohol or other drugs that cause drowsiness, such as benzodiazepines, also known as benzos, including diazepam and alprazolam, muscle relaxants or sleep aids. Never sell or share prescription opioids. This is illegal. Store opioids in a secure place and out of reach of others (including children, family, friends and visitors). The last page(s) of this document has been signed and retained as a CHART COPY Signatures Patient Education Materials Allergic Reaction, Other (General) Medication Leaflets methylprednisolone (oral) My discharge plan and instructions have been reviewed and explained to me and IVALERIA GLORIA J understand my current condition and have read and understand these discharge instructions. I have received a written copy of the plan/instructions. If I have questions, I am aware that I should contact my doctor. 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 11-17-2022 History of Present illness Narrative POPULATION HEALTH NAVIGATION OUTREACH Action/FYI Last CPE 08/2018 Patient Identified by Name and : YES, via phone Outreach Outcome/Action Spoke to patient / parent / legal guardian: Patient declined Did you use a PCP flex slot to schedule this appointment? N/A Reason for Outreach Care Gap or Scheduling/Wellness visits Payer: Payor: [employer] MEDICARE / Plan: [employer] / [email or web address] MEDICARE PPO / Product Type: PPO / Care Gap Reviewed:: Annual Wellness visit Advance Directive Reminder: Reminder note to check Health Maintenance for items below Health Maintenance items due: HEPATITIS C SCREENING Never done DTAP,TDAP,TD(1 - Tdap) Never done SHINGRIX VACCINE(1 of 2) Never done COVID-19 VACCINE(4 - Booster for Pfizer series) due on 05/28/2021 DIABETES SCREEN due on 08/23/2021 ADVANCE DIRECTIVE DISCUSSION Never done DEPRESSION ASSESSMENT due on 06/15/2022 Navigation Signature: Kelly Minaya MA November 17, 2022 1:55 PM documented in this encounter [facility] 09-04-2022 Miscellaneous Notes Message left on identified voicemail of normal mamm results, keep f/u appt. On Thursday as scheduled. Deisy Pratt LPN Please inform pt. that her mammogram looks good. Follow up as scheduled. Thank you. Zofia Donnelly APRN.CNP documented in this encounter [facility] 09-04-2022 Miscellaneous Notes September 05, 2022 PID: [id number] Ilene Shaw [address] [place] [address] Dear Marcellusivania, We are pleased to inform you that the results of your recent breast imaging exam on 09/03/2022 are normal. Early detection of cancer is very important. We also understand recommendations regarding breast cancer screening are controversial. Please discuss with your primary care provider which strategy is best for you and whether a mammogram is right for you. Your imaging studies and report will be kept on file at [facility] as part of your permanent medical record and are available for your continuing care. Thank you for allowing us to help in meeting your health care needs. Sincerely, Dr. Garcia Interpreting Radiologist [facility] (Normal over 40) documented in this encounter [facility] 08-19-2022 Miscellaneous Notes Spoke with pt and scheduled as directed Done. Needs OV a few days after mammogram. Thank you. Zofia Donnelly APRN.CNP Requesting screening mammogram order for appointment on 09/03/22. documented in this encounter [facility] 06-13-2022 Miscellaneous Notes Noted. Kelle Peter APRN.CNP Pt called and is notified of providers message and instructions. Pt voices understanding. She states she will stay on the Pradaxa for now. Pt was asked if she would like to schedule an appointment and she states she is going with her daughter to [place] to get a CT. She states she wants to find out how that turns out for her daughter and will then call in and schedule an appointment. Natasha Hernández RN Please let patient know that that diarrhea may be a side effect of the pradaxa but not typically the other symptoms. 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 Only other option is coumadin but she will need to get regular lab draws as dosing depends on lab levels. She can stay on pradaxa for 3 days while starting the warfarin, is that something she is interested in or would she like to come in to see if the symptoms are being caused by something outside of pradaxa? 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 She is patient of Dr. Santos's and had follow up with her earlier this month. Will forward to her PCP to review and advise. Patient calls to ask what is recommended that she do since starting Pradaxa she has diarrhea once daily liquid and orange in color as well as increased anxiety/depression and not sleeping well at night. Patient hasn't taken any Pradaxa today and only took one dose yesterday. Nurse triage completed. Protocol recommends call PCP when office is open. Patient has allergy to Eliquis and Xarelto. Dr. Beck originally prescribed Pradaxa. Previously Coumadin therapy was mentioned but patient continues to decline Lovenox injections. Reason for Disposition [1] Caller has NON-URGENT medicine question about med that PCP prescribed AND [2] triager unable to answer question Answer Assessment - Initial Assessment Questions 1. NAME of MEDICATION: Pradaxa 150 mg twice daily 2. QUESTION: Patient calls to report that she thinks that Pradaxa is causing her to have diarrhea once daily and causing her xanax and Celexa to be less effective. Patient asking what provider recommends she do? She hasn't taken any Pradaxa today and yesterday patient only took one dose. 3. PRESCRIBING HCP: Dr. Beck 4. SYMPTOMS: Diarrhea once daily liquid and orange in color since starting the Pradaxa. Increased anxiety since starting Pradaxa and increased difficulty sleeping at night. 5. SEVERITY: Moderate. Disrupting her sleep at night. Protocols used: Medication Question [id number] documented in this encounter [facility] 05-16-2022 History of Present illness Narrative Reason for Visit Patient presents with: Follow Up: on blood thinners d/t DVT's co/ fatigue and depression Ilene Shaw is a 72 year old female who presents here today for Above Complaints.. Health Maintenance HEPATITIS C SCREENING DTAP,TDAP,TD(1 - Tdap) SHINGRIX VACCINE(1 of 2) COVID-19 VACCINE(4 - Booster for Pfizer series) ADVANCE DIRECTIVE DISCUSSION DEPRESSION ASSESSMENT DIABETES SCREEN INFLUENZA(1) HPI Since she last saw me, she was diagnosed with DVT of the left leg, patient has been off work for the past 2 weeks, was working in [employer]. Dr Beck wonderful note has chronological history well articulated which is pasted in my note. He also started her on prasdaxa. She was found to have DVT in Left common femoral vein. Patient reports she is having swelling / itching in left foot. Reports the itching is pretty bad. Has tried poison lesly cream- no relief. Reports her right hand was swollen but went away. Patient has DVT in left leg. Thinks the xarelto is causing this spot swelling and itching. Reports was put on eliquis first and had allergic reaction to it, then ER took her off of that and put her on plavix, but it caused her to feel shaky. Was taken off of that and put on xarelto. Is now in the first 30 days of taking xarelto. Thinks the spotty swelling/itching may be related to taking xarelto? Scheduled same day appt for evaluation. Patient was taken off of the Eliquis on 03/02 and states that she has had swelling in her right, then bottom of her her right foot, and now has swelling on the bottom of her left foot with itching. Has taken prednisone as prescribed by ER which she states did not help with her hand or foot swelling, but did make her feel very shaky. Cannot tolerate the prednisone. Has also taken tylenol OTC and trying to avoid itching. Not on any new medications, new detergents, change in diet, recent travel, poison lesly contact, other contact dermatitis. On xarelto, Denies: mouth/throat swelling, difficulty swallowing, difficulty breathing. Patient diagnosed with DVT on 02/07. Has history of iliac DVT about 4-5 years ago which was treated with Xarelto for short time. She recently was in urgent care for a sinusitis and is just getting over a cefdinir. We discussed her need to continuously be on the pradaxa. No problem-specific Assessment & Plan notes found for this encounter. PAST MEDICAL HISTORY Diagnosis Date Adjustment disorder with depressed mood Adnexal cyst Endometriosis Kidney disease renal calculi with litho. 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) PAST SURGICAL HISTORY Procedure Laterality Date BX BREAST W/DEVICE 1ST LESION ULTRASOUND GUID 08/09/14 U/S mammotome medial right breast and right outer mid BX/EXC LYMPH NODE OPEN DEEP AXILLARY NODE 08-18-14 RIGHT COLECTOMY PARTIAL W ANASTOM with temp ostomy COLONOSCOPY FLX DX W/COLLJ SPEC WHEN PFRMD 08-08-14 INCISION & DRAINAGE PILONIDAL CYST SIMPLE MASTECTOMY, PARTIAL 08-18-14 RIGHT PERQ BREAST LOC DEVICE PLACEMT 1ST LESIO US IMAG 08/16/14 U/S right axillary marking clip placement REMOVAL OF KIDNEY STONE TOTAL ABDOMINAL HYSTERECT W/WO RMVL TUBE OVARY Hysterectomy, TACO FAMILY HISTORY Problem Relation Age of Onset Heart Mother Cancer Father LEUKEMIA Diabetes Father other (dementia) Sister Diabetes Daughter other (neuropathy) Daughter Social History Tobacco Use Smoking status: Never Smokeless tobacco: Never Vaping Use Vaping Use: Never used Substance Use Topics Alcohol use: No Drug use: No Past medical history, appointments, medications, allergies reviewed. Pertinent Lab/Diagnostic Studies are reviewed and discussed today Current Outpatient Medications: dabigatran etexilate (PRADAXA) 150 mg clotrimazole (LOTRIMIN, CLOTRIM) 1 % cream escitalopram oxalate (LEXAPRO) 10 mg tablet ALPRAZolam (XANAX) 0.25 mg tablet Review of Systems CONSTITUTIONAL: No fevers, chills night sweats, unintended weight loss CARDIOVASCULAR: No chest pain, dyspnea, palpitations, orthopnea, PND, ankle edema. PULM: No dyspnea, unexplained cough. GI: No dysphagia/odynophagia, problematic reflux, constipation, diarrhea, changes in stool habits, hematochezia, melena. : No new urinary complaints, including dysuria, gross hematuria or pyuria. NEURO: No new balance problems, peripheral weakness/paresthesias or numbness of concern. Physical Exam BP 124/76 (BP Site: Left Arm, BP Position: Sitting, BP Cuff Size: Large Adult) Pulse 81 Temp 36.5 C (97.7 F) Resp 12 Ht 157.5 cm (5' 2) Wt 83.9 kg (185 lb) SpO2 96% BMI 33.84 kg/m General appearance: Well appearing, alert, in no acute distress, well nourished. Skin: Skin color, texture, turgor normal, no suspicious rashes or lesions Head: Normocephalic, no masses, lesions, tenderness or abnormalities Eyes: Anicteric sclera. Pupils are equally round and reactive to light. Extraocular movements are intact. Lungs: Lungs clear to auscultation. No wheezing, rhonchi, rales Heart: RRR without murmur, gallop, or rubs. Extremities: some edema present in the legs. ASSESSMENT/PLAN: 1. Recurrent deep vein thrombosis (DVT) (HCC) - ICD9: 453.40, ICD10: I82.409 (primary diagnosis) - CEFDINIR 300 MG CAPSULE - BENZONATATE 100 MG CAPSULE - FLUTICASONE PROPIONATE 50 MCG/ACTUATION NASAL SPRAY,SUSPENSION - DEPRESSION SCREENING/ASSESSMENT 2. Pedal edema - ICD9: 782.3, ICD10: R60.0 - COMPRESSION STOCKING, KNEE HIGH,REGULAR LENGTH,MEDIUM 3. Other acute sinusitis, recurrence not specified - ICD9: 461.8, ICD10: J01.80 Cont abx per rx. Jennifer Santos MD documented in this encounter [facility] 03-18-2022 Miscellaneous Notes Message left making patient aware on verified VM. Instructed to call office back if has any further issues. Nicki Soto LPN Rx sent as requested. Patient in to office and requested RX be sent to [facility] here in [place]. Confirmed with their pharmacy that medication is in stock. Patient telephoned. Message from provider given to patient. Declines the lovenox injections. States she will check her checking and ask her for some money and try to get to the pharmacy today. Nicki Soto LPN Left message for patient to return call to office Daisy Christy Cma They are filling the Pradaxa on Thursday for her? She needs to be anticoagulated for her DVT in the meanwhile. I can call in lovenox injections for her if she is needing to be bridged until Thursday. What was she planning on doing? Pt called and is notified of providers message and instructions. Pt voices understanding, but reports she just needs to wait until Thursday when she gets paid. She states she talked with the pharmacy and they are going to fill it for her on Thursday. Please call and advise. Natasha Hernández RN I would not recommend she continue taking the Xarelto with her allergy symptoms. I would recommend switching her to coumadin if she cannot afford the Pradaxa which will require us to bridge her with lovenox twice daily while we are waiting on her INR to become therapeutic. This will take at least 3-4 days, though can take longer if we are adjusting her coumadin dosage. If agreeable to this, will call in rx to requested pharmacy Pt called in and reports there is a $100 cover charge on the Pradaxa. Pt reports she doesn't have the money for it until she gets pain next week. She is asking if it is ok if she takes the Xarelto until she is able to pick and shovel man the other medication? Please call and advise. documented in this encounter [facility] 03-17-2022 History of Present illness Narrative Chief Complaint Patient presents with: foot problem: Left foot itching and swelling X 2 days HPI Ilene Shaw is a 72 year old female who presents here today for Above Complaints.. Patient of Dr. Santos'tania who called in today with following complaint: Patient reports she is having swelling / itching in left foot. Reports the itching is pretty bad. Has tried poison lesly cream- no relief. Reports her right hand was swollen but went away. Patient has DVT in left leg. Thinks the xarelto is causing this spot swelling and itching. Reports was put on eliquis first and had allergic reaction to it, then ER took her off of that and put her on plavix, but it caused her to feel shaky. Was taken off of that and put on xarelto. Is now in the first 30 days of taking xarelto. Thinks the spotty swelling/itching may be related to taking xarelto? Scheduled same day appt for evaluation. Patient was taken off of the Eliquis on 03/02 and states that she has had swelling in her right, then bottom of her her right foot, and now has swelling on the bottom of her left foot with itching. Has taken prednisone as prescribed by ER which she states did not help with her hand or foot swelling, but did make her feel very shaky. Cannot tolerate the prednisone. Has also taken tylenol OTC and trying to avoid itching. Not on any new medications, new detergents, change in diet, recent travel, poison lesly contact, other contact dermatitis. On xarelto, Denies: mouth/throat swelling, difficulty swallowing, difficulty breathing. Patient diagnosed with DVT on 02/07. Has history of iliac DVT about 4-5 years ago which was treated with Xarelto for short time. Past medical history, appointments, medications, allergies reviewed. Previous Medical History PAST MEDICAL HISTORY Diagnosis Date Adjustment disorder with depressed mood Adnexal cyst Endometriosis Kidney disease renal calculi with litho. 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) Previous Surgical History PAST SURGICAL HISTORY Procedure Laterality Date BX BREAST W/DEVICE 1ST LESION ULTRASOUND GUID 08/09/14 U/S mammotome medial right breast and right outer mid BX/EXC LYMPH NODE OPEN DEEP AXILLARY NODE 08-18-14 RIGHT COLECTOMY PARTIAL W ANASTOM with temp ostomy COLONOSCOPY FLX DX W/COLLJ SPEC WHEN PFRMD 08-08-14 INCISION & DRAINAGE PILONIDAL CYST SIMPLE MASTECTOMY, PARTIAL 08-18-14 RIGHT PERQ BREAST LOC DEVICE PLACEMT 1ST LESIO US IMAG 08/16/14 U/S right axillary marking clip placement REMOVAL OF KIDNEY STONE TOTAL ABDOMINAL HYSTERECT W/WO RMVL TUBE OVARY Hysterectomy, TACO Family History FAMILY HISTORY Problem Relation Age of Onset Heart Mother Cancer Father LEUKEMIA Diabetes Father other (dementia) Sister Diabetes Daughter other (neuropathy) Daughter Patient Allergies ALLERGIES Allergen Reactions Ampicillin Rash, Itching Eliquis [Apixaban] Swelling, Anaphylaxis swelling everywhere including lips on mouth Current Medications Current Outpatient Medications on File Prior to Visit Medication Sig rivaroxaban (XARELTO) 20 mg tablet Take 1 tablet by mouth daily with dinner. clotrimazole (LOTRIMIN, CLOTRIM) 1 % cream Apply to affected area twice daily. escitalopram oxalate (LEXAPRO) 10 mg tablet Take 10 mg by mouth once daily. ALPRAZolam (XANAX) 0.25 mg tablet Take 1 tablet by mouth once daily. No current facility-administered medications on file prior to visit. Social History Social History Tobacco Use Smoking status: Never Smokeless tobacco: Never Vaping Use Vaping Use: Never used Substance Use Topics Alcohol use: No Drug use: No Review of Symptoms REVIEW OF SYSTEMS See HPI EXAM: BP 132/74 Pulse 95 Resp 16 Wt 85.7 kg (189 lb) SpO2 98% BMI 34.57 kg/m General Appearance: Well appearing, alert, in no acute distress, well-hydrated, well nourished.. Skin: urticarial rash on dorsum of left foot with swelling below 1st metatarsal. Oropharynx: Lips, mucosa, and tongue normal, teeth and gums normal, oropharynx normal. Lungs: Lungs clear to auscultation. No wheezing, rhonchi, rales.. Heart: RRR without murmur, gallop, or rubs. No ectopy. Health Maintenance List HEPATITIS C SCREENING Never done DTAP,TDAP,TD(1 - Tdap) Never done SHINGRIX VACCINE(1 of 2) Never done COVID-19 VACCINE(4 - Booster for Pfizer series) due on 05/28/2021 ADVANCE DIRECTIVE DISCUSSION Never done DEPRESSION ASSESSMENT Never done DIABETES SCREEN due on 08/23/2021 INFLUENZA(1) due on 02/13/2022 MAMMOGRAM due on 09/02/2022 LIPID SCREEN due on 08/24/2023 COLORECTAL CANCER SCREENING due on 08/08/2024 BONE DENSITY Completed PNEUMOCOCCAL: 65+ Completed ASSESSMENT/PLAN: 1. Recurrent deep vein thrombosis (DVT) of lower extremity, unspecified laterality (HCC) - ICD9: 453.40, ICD10: I82.409 (primary diagnosis) Due to medication allergy with Xa inhibitor, will change to direct thrombin inhibitor Pradaxa BID starting tonight. Discussed coumadin and lovenox if unable to afford. Start H1 and H2 sumi for itching and swelling. Red flags for re-assessment reviewed with patient in detail. F/u with PCP. - DABIGATRAN ETEXILATE 150 MG CAPSULE 2. Allergy to antithrombotic medication - ICD9: V14.8, ICD10: Z88.8 - DABIGATRAN ETEXILATE 150 MG CAPSULE Arpit Beck MD documented in this encounter [facility] 03-17-2022 Miscellaneous Notes Reviewed. Patient reports she is having swelling / itching in left foot. Reports the itching is pretty bad. Has tried poison lesly cream- no relief. Reports her right hand was swollen but went away. Patient has DVT in left leg. Thinks the xarelto is causing this spot swelling and itching. Reports was put on eliquis first and had allergic reaction to it, then ER took her off of that and put her on plavix, but it caused her to feel shaky. Was taken off of that and put on xarelto. Is now in the first 30 days of taking xarelto. Thinks the spotty swelling/itching may be related to taking xarelto? Scheduled same day appt for evaluation. documented in this encounter [facility] 03-15-2022 Miscellaneous Notes 1.Pt calling for a refill of her new rx of xarelto 20 mg daily to the pharmacy. 2. Pt complaining of hand swelling. She can't take prednisone. Is there something else csh can take? documented in this encounter [facility] 03-03-2022 History of Present illness Narrative Reason for Visit Patient presents with: ED Follow-up: DVT and swelling in Eliquis Ilene Shaw is a 72 year old female who presents here today for Above Complaints.. Health Maintenance HEPATITIS C SCREENING DTAP,TDAP,TD(1 - Tdap) SHINGRIX VACCINE(1 of 2) ADVANCE DIRECTIVE DISCUSSION COVID-19 VACCINE(4 - Booster for Pfizer series) DIABETES SCREEN INFLUENZA(1) HPI Patient was in the ER last night for swelling of the face, they changed the eliquis to xaretol because that was the new medication that was given to her.. She had swelling of the mouth was put on prednisone. Last night her hand swelled first, it itched really severe at that time , it then moved to her lips. 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 She still takes her lexapro and gets it from [facility]. She can takes the xanax once at night. Patient always has aches and pains but nothing that is causing her to have significant troubles Uptodate with the mammograms Patient hopes the xarelto does not cause her to have too many issues. No problem-specific Assessment & Plan notes found for this encounter. PAST MEDICAL HISTORY Diagnosis Date Adjustment disorder with depressed mood Adnexal cyst Endometriosis Kidney disease renal calculi with litho. 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) PAST SURGICAL HISTORY Procedure Laterality Date BX BREAST W/DEVICE 1ST LESION ULTRASOUND GUID 08/09/14 U/S mammotome medial right breast and right outer mid BX/EXC LYMPH NODE OPEN DEEP AXILLARY NODE 08-18-14 RIGHT COLECTOMY PARTIAL W ANASTOM with temp ostomy COLONOSCOPY FLX DX W/COLLJ SPEC WHEN PFRMD 08-08-14 INCISION & DRAINAGE PILONIDAL CYST SIMPLE MASTECTOMY, PARTIAL 08-18-14 RIGHT PERQ BREAST LOC DEVICE PLACEMT 1ST LESIO US IMAG 08/16/14 U/S right axillary marking clip placement REMOVAL OF KIDNEY STONE TOTAL ABDOMINAL HYSTERECT W/WO RMVL TUBE OVARY Hysterectomy, TACO FAMILY HISTORY Problem Relation Age of Onset Heart Mother Cancer Father LEUKEMIA Diabetes Father other (dementia) Sister Diabetes Daughter other (neuropathy) Daughter Social History Tobacco Use Smoking status: Never Smokeless tobacco: Never Vaping Use Vaping Use: Never used Substance Use Topics Alcohol use: No Drug use: No Past medical history, appointments, medications, allergies reviewed. Pertinent Lab/Diagnostic Studies are reviewed and discussed today Current Outpatient Medications: clotrimazole (LOTRIMIN, CLOTRIM) 1 % cream escitalopram oxalate (LEXAPRO) 10 mg tablet ALPRAZolam (XANAX) 0.25 mg tablet Review of Systems CONSTITUTIONAL: No fevers, chills night sweats, unintended weight loss CARDIOVASCULAR: No chest pain, dyspnea, palpitations, orthopnea, PND, ankle edema. PULM: No dyspnea, unexplained cough. GI: No dysphagia/odynophagia, problematic reflux, constipation, diarrhea, changes in stool habits, hematochezia, melena. : No new urinary complaints, including dysuria, gross hematuria or pyuria. NEURO: No new balance problems, peripheral weakness/paresthesias or numbness of concern. Physical Exam BP 126/70 (BP Site: Left Arm, BP Position: Sitting, BP Cuff Size: Large Adult) Pulse 90 Temp 37.3 C (99.2 F) Resp 12 Ht 157.5 cm (5' 2) Wt 85.7 kg (189 lb) SpO2 95% BMI 34.57 kg/m General appearance: Well appearing, alert, in no acute distress, well nourished. Skin: Skin color, texture, turgor normal, no suspicious rashes or lesions Head: Normocephalic, no masses, lesions, tenderness or abnormalities Eyes: Anicteric sclera. Pupils are equally round and reactive to light. Extraocular movements are intact. Lungs: Lungs clear to auscultation. No wheezing, rhonchi, rales Heart: RRR without murmur, gallop, or rubs. Extremities: No deformities, edema, skin discoloration, clubbing or cyanosis. Good capillary refill. ASSESSMENT/PLAN: 1. Anxiety - ICD9: 300.00, ICD10: F41.9 (primary diagnosis) She is on ssri and benzo to continue 2. DVT (deep vein thrombosis) in - ICD9: 671.30, ICD10: O22.30 3. Hyperlipidemia with target low density lipoprotein (LDL) cholesterol less than 130 mg/dL - ICD9: 272.4, ICD10: E78.5 Lipid not checked for 3 months Jennifer Santos MD documented in this encounter [facility] 02-07-2022 Miscellaneous Notes I called and discussed the ultrasound with the patient showing the superficial vein thrombosis in the greater saphenous and varicose vein. Discussed warm compresses, NSAIDs. I did have her make a follow-up appointment next week with PCP. Patient agreeable. documented in this encounter [facility] 02-07-2022 History of Present illness Narrative This note was created using [email or web address]. Subjective Ilene Shaw is a 71 year old female. HPI Patient presents with left lower leg pain and swelling x 1 week. She denies injury. She has hx of iliac DVT previously 4-5 years ago. She was on xarelto for a short time after that but is not currently on any blood thinners. No chest pain or shortness of breath. No fever or chills. No recent travel or surgeries. She has history of breast cancer but no active cancer. Review of Systems Constitutional: Negative. HENT: Negative. Cardiovascular: Positive for leg swelling. Left lower leg swelling Gastrointestinal: Negative. Musculoskeletal: Negative. All other systems reviewed and are negative. PAST MEDICAL HISTORY Diagnosis Date Adjustment disorder with depressed mood Adnexal cyst Endometriosis Kidney disease renal calculi with litho. 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 ALPRAZolam (XANAX) 0.25 mg tablet Take 1 tablet by mouth once daily. clotrimazole (LOTRIMIN, CLOTRIM) 1 % cream Apply to affected area twice daily. 45 g 0 No current facility-administered medications for this visit. PAST SURGICAL HISTORY Procedure Laterality Date BX BREAST W/DEVICE 1ST LESION ULTRASOUND GUID 08/09/14 U/S mammotome medial right breast and right outer mid BX/EXC LYMPH NODE OPEN DEEP AXILLARY NODE 08-18-14 RIGHT COLECTOMY PARTIAL W ANASTOM with temp ostomy COLONOSCOPY FLX DX W/COLLJ SPEC WHEN PFRMD 08-08-14 INCISION & DRAINAGE PILONIDAL CYST SIMPLE MASTECTOMY, PARTIAL 08-18-14 RIGHT PERQ BREAST LOC DEVICE PLACEMT 1ST LESIO US IMAG 08/16/14 U/S right axillary marking clip placement REMOVAL OF KIDNEY STONE TOTAL ABDOMINAL HYSTERECT W/WO RMVL TUBE OVARY Hysterectomy, TACO FAMILY HISTORY Problem Relation Age of Onset Heart Mother Cancer Father LEUKEMIA Diabetes Father other (dementia) Sister Diabetes Daughter other (neuropathy) Daughter Social History Tobacco Use Smoking status: Never Smokeless tobacco: Never Vaping Use Vaping Use: Never used Substance Use Topics Alcohol use: No Drug use: No Objective BP 142/76 Pulse 94 Temp 36.8 C (98.2 F) Resp 18 Wt 86.7 kg (191 lb 3.2 oz) SpO2 97% BMI 34.97 kg/m Physical Exam Vitals reviewed. Constitutional: Appearance: Normal appearance. HENT: Head: Normocephalic and atraumatic. Cardiovascular: Rate and Rhythm: Normal rate and regular rhythm. Heart sounds: Normal heart sounds. Pulmonary: Effort: Pulmonary effort is normal. Breath sounds: Normal breath sounds. Musculoskeletal: Cervical back: Neck supple. Comments: Patient has ttp to the medial calf with swelling. No redness or sign of cellulitis. Positive homans sign. Pedal pulses are 2+. Cap refil brisk less than 2 seconds Neurological: Mental Status: She is alert. Assessment and Plan ASSESSMENT/PLAN: 1. Left leg swelling - ICD9: 729.81, ICD10: M79.89 US ordered to rule out DVT. Will call on results. No sign of cellulitis on exam. No signs of PE. Patient agreeable with this plan. - US LEG VEIN DVT UNL VAS LAB Torrey Dawson PA-C documented in this encounter [facility] 01-25-2022 Instructions Zee León APRN.LACY - 01/25/2022 9:32 AM EDT 1. Urinary frequency - ICD9: 788.41, ICD10: R35.0 (primary diagnosis) Will send urine for culture and treat if culture is positve - UA DIP, URINE (POC) - URINE CULTURE 2. Elevated blood pressure reading without diagnosis of hypertension - ICD9: 796.2, ICD10: R03.0 Under a lot of stress right now, not symptomatic, will schedule nurse visit for recheck 3. Acute vaginitis - ICD9: 616.10, ICD10: N76.0 Use teraconazole 1 applicator at bedtime for 7 days Clotrimazole to skin folds - ALBA / TRICHOMONAS AMPLIFICATION - BACTERIAL VAGINOSIS AMPLIFICATION documented in this encounter [facility] 01-25-2022 History of Present illness Narrative Subjective The history is provided by the patient. No foreign language professor was used. ILAN Shaw is a 71 year old female who presents today for CC of leaking of the bladder. She also has vaginal itching and burning. She denies any fever, chills body aches or vomiting. She has used OTC vaginal creams without relief. Her blood pressure is elevated not on medications, denies any headache, chest pain, blurred vision. BP 160/102 Pulse 93 Temp 36 C (96.8 F) Resp 21 Wt 86.8 kg (191 lb 6.4 oz) SpO2 96% BMI 35.01 kg/m BP recheck 160/88 Social History Tobacco Use Smoking status: Never Smokeless tobacco: Never Vaping Use Vaping Use: Never used Substance Use Topics Alcohol use: No Drug use: No PAST MEDICAL HISTORY Diagnosis Date Adjustment disorder with depressed mood Adnexal cyst Endometriosis Kidney disease renal calculi with litho. 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 Gastrointestinal: Negative for abdominal pain. Genitourinary: Positive for dysuria. Negative for flank pain, frequency, hematuria and urgency. Skin: Positive for rash. Objective Physical Exam Vitals and nursing note reviewed. Constitutional: Appearance: Normal appearance. Abdominal: General: Bowel sounds are normal. There is no abdominal bruit. Palpations: Abdomen is not rigid. There is no mass or pulsatile mass. Tenderness: There is no abdominal tenderness. There is no guarding or rebound. Negative signs include Ross's sign and McBurney's sign. Neurological: Mental Status: She is alert and oriented to person, place, and time. Psychiatric: Mood and Affect: Affect normal. Self swab ASSESSMENT/PLAN: 1. Urinary frequency - ICD9: 788.41, ICD10: R35.0 (primary diagnosis) Will send urine for culture and treat if culture is positve - UA DIP, URINE (POC) - URINE CULTURE 2. Elevated blood pressure reading without diagnosis of hypertension - ICD9: 796.2, ICD10: R03.0 Under a lot of stress right now, not symptomatic, will schedule nurse visit for recheck 3. Acute vaginitis - ICD9: 616.10, ICD10: N76.0 Use teraconazole 1 applicator at bedtime for 7 days Clotrimazole to skin folds - ALBA / TRICHOMONAS AMPLIFICATION - BACTERIAL VAGINOSIS AMPLIFICATION Diagnosis and treatment plan were discussed and questions were answered to the patient's satisfaction. Pt acknowledged understanding of concepts and follow up plan. Specific signs and symptoms that would indicate the need for higher level of care were discussed in detail warranting prompt ER evaluation. Zee León APRN.LACY documented in this encounter [facility] 12-16-2021 History of Present illness Narrative FOLLOW UP VISIT - ABSCESS NAME: Ilene Rutherford [facility] NO.: [id number] DATE OF SERVICE: 12/13/2021 : 1950 REFERRING PHYSICIAN: Jennifer Santos MD Ilene is a patient I am following with Dr. Muniz for axillary abscesses. Per his office note from 12/03/21: HPI: The patient is a 71 year old female with a complaint of painful lumps underneath her right axilla which is getting slightly larger over the last month. She is actually had this problem in the past and was treated with conservatively with Bactrim after going to the [facility]. She was seen by Zofia Donnelly and was given some Keflex and has not really noticed any significant change on that antibiotic. Nothing is draining from these yet.. Dr. Muniz had changed patient's antibiotic to Bactrim with instructions to follow up in 10-12 days. Patient states the lumps have been decreasing in size since that time. She denies any pain or drainage. VITALS: Blood pressure 112/68, pulse 101, temperature 36.7 C (98 F), height 157.5 cm (5' 2), weight 87.5 kg (193 lb), SpO2 98 %. General: patient is alert, cooperative, pleasant and in no acute distress On examination, +two 3-4 mm areas of induration palpable in right axilla. No warmth or tenderness Assessment IMPRESSION: axillary abscesses PLAN: -Hibiclens wash daily over the next 2 weeks -May apply small amount of Bactroban -Follow up if any recurrent lumps or pain, or if the lumps are not completely resolved over the next few weeks Patient verbalized understanding of all above and agreed with the plan. Diagnoses: (L02.419) Axillary abscess (primary encounter diagnosis) I spent a total of 15 minutes on the date of the service which included preparing to see the patient, [id number] patient care, completing clinical documentation, obtaining and/or reviewing separately obtained history, performing a medically appropriate examination and counseling and educating the patient/family/caregiver. Natasha Lester PA-C documented in this encounter [facility] 12-13-2021 Instructions Natasha Lester PA-C - 12/13/2021 1:49 PM EDT -Hibiclens wash daily over the next 2 weeks -May apply small amount of Bactroban -Follow up if any recurrent lumps or pain documented in this encounter [facility] 12-03-2021 History of Present illness Narrative HISTORY AND PHYSICAL Ilene Shaw 1950 REFERRING PHYSICIAN: Zofia Donnelly APRN.* CHIEF COMPLAINT: Consult (lumps under right axilla) HPI: The patient is a 71 year old female with a complaint of painful lumps underneath her right axilla which is getting slightly larger over the last month. She is actually had this problem in the past and was treated with conservatively with Bactrim after going to the [facility]. She was seen by Zofia Donnelly and was given some Keflex and has not really noticed any significant change on that antibiotic. Nothing is draining from these yet.. The patient is being seen by me today at the request of Dr. Donnelly for my opinion and advice regarding Cutaneous abscess of right axilla (primary encounter diagnosis). PAST MEDICAL HISTORY Diagnosis Date Adjustment disorder with depressed mood Adnexal cyst Endometriosis Kidney disease renal calculi with litho. 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) PAST SURGICAL HISTORY Procedure Laterality Date BX BREAST W/DEVICE 1ST LESION ULTRASOUND GUID 08/09/14 U/S mammotome medial right breast and right outer mid BX/EXC LYMPH NODE OPEN DEEP AXILLARY NODE 08-18-14 RIGHT COLECTOMY PARTIAL W ANASTOM with temp ostomy COLONOSCOPY FLX DX W/COLLJ SPEC WHEN PFRMD 08-08-14 INCISION & DRAINAGE PILONIDAL CYST SIMPLE MASTECTOMY, PARTIAL 08-18-14 RIGHT PERQ BREAST LOC DEVICE PLACEMT 1ST LESIO US IMAG 08/16/14 U/S right axillary marking clip placement REMOVAL OF KIDNEY STONE TOTAL ABDOMINAL HYSTERECT W/WO RMVL TUBE OVARY Hysterectomy, TACO Current Outpatient Medications Medication Sig escitalopram oxalate (LEXAPRO) 10 mg tablet Take 10 mg by mouth once daily. ALPRAZolam (XANAX) 0.25 mg tablet Take 1 tablet by mouth once daily. sulfamethoxazole-trimethoprim (BACTRIM DS) 800-160 mg per tablet Take 1 tablet by mouth twice daily for 10 days. No current facility-administered medications for this visit. ALLERGIES: Ampicillin PERSONAL HISTORY: Social History Tobacco Use Smoking status: Never Smoker Smokeless tobacco: Never Used Vaping Use Vaping Use: Never used Substance Use Topics Alcohol use: No Drug use: No FAMILY HISTORY: FAMILY HISTORY Problem Relation Age of Onset Heart Mother Cancer Father LEUKEMIA Diabetes Father other (dementia) Sister Diabetes Daughter other (neuropathy) Daughter REVIEW OF SYMPTOMS: The review of systems data was entered by the nurse and reviewed by me Nursing Notes: Bahman Hutchison LPN 12/03/2021 1:56 PM Signed REVIEW OF SYSTEMS: General: The patient denies fatigue, denies weight loss, denies weight gain, denies feeling hot, and denies feelings of cold. Eyes: The patient denies glaucoma, denies eye injury/surgery, wears glasses or contacts. Ear/Nose/Throat: The patient denies allergies, denies hayfever, denies ear infections, and denies bloody noses. Cardiovascular: The patient denies chest pain, denies heart disease, denies high blood pressure,denies cardiac stent, denies prior heart attack, denies irregular heart beat, denies high cholesterol, denies poor circulation, denies heart failure, other cardiac issues, denies claudication, notes cold feet, denies peripheral arterial stent. Respiratory: The patient denies tuberculosis, denies pneumonia, denies frequent cough, denies pulmonary embolism, denies shortness of breath, and denies coughing up blood. Gastrointestinal: The patient denies difficulty swallowing, denies acid reflux, denies ulcers, denies vomiting, denies jaundice/hepatitis, denies gallbladder problems, denies black or tarry stools, denies hemorrhoids, denies bleeding from rectum, denies diverticulitis, denies constipation, denies diarrhea, denies loss of stool control, and denies hernias. Kidney/Bladder: The patient notes kidney stones, denies urine infections, and denies bloody urine. Skin: The patient denies a history of skin cancer, denies bleeding/changing moles, and denies a history of skin rash. Neurologic: The patient denies a history of epilepsy/convulsions, denies headaches, denies head/spinal injuries, and denies stroke/TIA. Psychiatric: The patient notes psychiatric medications, notes depression, and denies voices, denies substance abuse. Endocrine: The patient denies thyroid disorders, denies diabetes, and denies hormonal problems. Hematologic: The patient denies a history of bruising, denies bleeding, and denies anemia, notes blood clots. Infections: The patient denies a history of measles and mumps, denies rheumatic fever, and denies sexually transmitted diseases. Musculoskeletal: The patient notes back pain/injury, denies back problems, denies sciatica, denies knee/foot trouble, denies arthritis, or denies gout. When was patient's last Mammogram screening? 08/2021 Last Colonoscopy: 2014 Bahman HutchisonHOPE PHYSICAL EXAMINATION: General: The patient is 71 year old female, well nourished, well hydrated in no acute distress. The patient is oriented to time, place, and person. VITALS: Blood pressure 128/90, pulse 98, temperature 37.1 C (98.7 F), height 154.9 cm (5' 1), weight 86.6 kg (191 lb), SpO2 92 %. HEENT: Normal cephalic, ataumatic, pupils are equally round, sclera are anicteric, mucous membranes are moist, oropharynx is clear. Neck has no masses, asymmetry or lymphadenopathy. Thyroid is unremarkable. Other: Right axillary area there are 2 round erythematous tender areas approximately 1 cm each. Nothing is draining from it is slightly tender to touch. Assessment IMPRESSION: Cutaneous abscess of right axilla (primary encounter diagnosis) PLAN: At this point I want to change her antibiotics to Bactrim and see if this is helpful this had the appearance of an MRSA infection but it does not need any drainage at this time. I am going to have her follow back up probably in another 10 to 12 days with my physician regulatory assistant to make sure that we have made some improvements. If the lumps go away then I do not think any biopsies will be warranted however if we do not see complete resolution of this then a biopsy is going to be warranted. Diagnoses: (L02.411) Cutaneous abscess of right axilla (primary encounter diagnosis) My findings have been communicated to Dr. Donnelly via shared medical record. This note will be forwarded to Dr. Jennifer Santos MD. Return to Clinic: The patient is instructed to follow-up with me in 10 days. Kodi Muniz III, MD documented in this encounter [facility] 12-03-2021 Nurse Note REVIEW OF SYSTEMS: General: The patient denies fatigue, denies weight loss, denies weight gain, denies feeling hot, and denies feelings of cold. Eyes: The patient denies glaucoma, denies eye injury/surgery, wears glasses or contacts. Ear/Nose/Throat: The patient denies allergies, denies hayfever, denies ear infections, and denies bloody noses. Cardiovascular: The patient denies chest pain, denies heart disease, denies high blood pressure,denies cardiac stent, denies prior heart attack, denies irregular heart beat, denies high cholesterol, denies poor circulation, denies heart failure, other cardiac issues, denies claudication, notes cold feet, denies peripheral arterial stent. Respiratory: The patient denies tuberculosis, denies pneumonia, denies frequent cough, denies pulmonary embolism, denies shortness of breath, and denies coughing up blood. Gastrointestinal: The patient denies difficulty swallowing, denies acid reflux, denies ulcers, denies vomiting, denies jaundice/hepatitis, denies gallbladder problems, denies black or tarry stools, denies hemorrhoids, denies bleeding from rectum, denies diverticulitis, denies constipation, denies diarrhea, denies loss of stool control, and denies hernias. Kidney/Bladder: The patient notes kidney stones, denies urine infections, and denies bloody urine. Skin: The patient denies a history of skin cancer, denies bleeding/changing moles, and denies a history of skin rash. Neurologic: The patient denies a history of epilepsy/convulsions, denies headaches, denies head/spinal injuries, and denies stroke/TIA. Psychiatric: The patient notes psychiatric medications, notes depression, and denies voices, denies substance abuse. Endocrine: The patient denies thyroid disorders, denies diabetes, and denies hormonal problems. Hematologic: The patient denies a history of bruising, denies bleeding, and denies anemia, notes blood clots. Infections: The patient denies a history of measles and mumps, denies rheumatic fever, and denies sexually transmitted diseases. Musculoskeletal: The patient notes back pain/injury, denies back problems, denies sciatica, denies knee/foot trouble, denies arthritis, or denies gout. When was patient's last Mammogram screening? 08/2021 Last Colonoscopy: 2014 Bahman Hutchison LPN documented in this encounter [facility] 11-06-2021 Miscellaneous Notes Scheduled by another PSR. Patient informed of Zofia's response, stated understanding. Please contact patient to schedule appointment with Dr. Muniz, thank you. Kailyn Riley RN Noted. Please schedule with Dr. uMniz. Thank you. Zofia Donnelly APRN.LACY Patient stated she was here for an OV last week with Zofia and had a lump under my arm (right side). Patient stated she was advised to take keflex for 10 days and call back this week for an update. Patient stated she has 7 tablets left of keflex. Patient had 1 lump when she was here to see Zofia which has shrunk in size down to the size of a pea; she had 2 others appear after her OV which also seem to be getting smaller. Patient denies pain, redness, pus/drainage, fever, or chills. Patient is asking if she should finish the antibiotics and/or be referred to Dr. Muniz for a consultation. Kailyn Riley RN documented in this encounter [facility] 10-28-2021 History of Present illness Narrative Chief Complaint Patient presents with: Established Patient HPI: Ilene Shaw is a 71 year old female who presents here today for follow up breast cancer. Per Dr. Weller's previous note: H/o stage IC, pT1c, pN0, ER/MO positive HER-2 non-overexpressed, right breast cancer, status post lumpectomy and SLNBx3 years ago. At age 25 apparently due to severe endometriosis, she required a diverting loop transverse colostomy. She required a sigmoid colon resection and eventually hysterectomy. She then was on estrogen replacement. Family history is negative for breast cancer. screening colonoscopy in 2014 was completely normal. She had an ultrasound-guided mammotome biopsy upper outer quadrant right breast 9:00 + her centimeters & Ultrasound-guided hand-held mammotome biopsy right breast 3:00 +4 cm Her core breast biopsy at 3:00 was positive for papillary neoplasm. She had a breast conservation surgery right breast on August 18, 2014. A wire localized right axillary lymph node was negative for malignancy. Right axillary sentinel lymph nodes an additional 6 were negative for malignancy. The medial right breast mass has an invasive ductal carcinoma measuring 1.4 x 1.2 cm with a clear 1 cm margin. However there is also a DCIS component measuring 2 x 1 cm representing 6% of tumor volume. It is multifocal. The margins of the DCIS are 1 mm laterally and anteriorly area lymphovascular invasion was not identified. Estrogen receptors greater than 95% and progesterone receptor greater than 95% and HER-2/edmond is 1+. Stage I, [id number]. Patient started her adjuvant radiation therapy a month ago after her Oncotype DX indicated a low recurrence score ( 4% at 10 years with endocrine therapy ). She is doing well on radiation therapy which she completed in 2014. Radiation therapy:10/02/14 to 11/16/14. She has taken arimidex/aromasin both stopped d/t s/e-mood swings and joint pain. Stopped femara 02/13/16 d/t memory loss. Symptoms improved once off AI. She started tamoxifen in February 2016. Per Dr. Weller pt. stopped xarelto and tamoxifen November 2017. Pt. overdue for exam-was due August 2021. She did have her mammogram in August 2021. She c/o lump to R axilla x past month. I had some on the left side too but they went away. I squeezed them and the redness went away. I do get boils but I haven't had any in awhile. Appetite:It's ok. Energy level:Ok. She works 4 days per week. Denies fevers or recent illness. Resp:denies cough or sob Cardiac:denies chest pain/palpitations GI:denies abd pain, n/v, moving bowels regularly :denies dysuria/hematuria Extrem:chronic back pain Endo:denies hot flashes Neuro:denies symptoms of neuropathy Skin:denies rashes/lesions Heme:denies bleeding The ROS is otherwise negative. Past medical history, appointments, medications, allergies reviewed. No changes. EXAM: BP 139/76 Pulse 75 Temp 36.3 C (97.4 F) (Temporal) Ht 156.2 cm (5' 1.5) Wt 87.8 kg (193 lb 8 oz) BMI 35.97 kg/m APPEARANCE Well appearing, alert, in no acute distress, well-hydrated, well nourished. HEART RRR with normal S1 and S2, no murmurs LUNG clear to auscultation BREAST FEMALE R no mass/nodule scar central/radiation changes, L no mass/nodule LYMPH NODES No cervical lymphadenopathy, No supraclavicular lymphadenopathy and No L axillary lymphadenopathy. R axilla with erythema/tenderness/1cm round area centrally ABDOMEN bowel sounds normoactive, soft, non-tender, non-distended, without organomegaly or palpable masses EXTREMITIES No edema NEURO Awake, alert and oriented x 3, Normal gait and No involuntary motions. SKIN as above, no other rashes/lesions RADIOLOGY: Mammogram 09/02/21: IMPRESSION: BENIGN FINDING There is no mammographic evidence of malignancy. A 1 year screening mammogram is recommended. ASSESSMENT/PLAN: 1. 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) - ICD9: 174.9, ICD10: C50.911 (primary diagnosis) Stage I c, ER/MO positive HER-2 non- overexpressed breast cancer. - R axillary erythema/nodule. - Intolerant to AI's and tamoxifen stopped d/t thromboembolism. Xarelto stopped November 2017. - Reviewed mammogram with pt. - Rx keflex. - Keep R axilla clean and dry. - Advised pt. to call office with an update next week. - If no improvement will refer to Dr. Muniz to eval. - Follow up pending. - Pt. aware to call office with any questions/concerns. The patient indicates understanding of these issues and agrees with the plan. All documentation from previous visit of 08/16/20-Dr. Weller/myself was copied and pasted, documentation has been reviewed and edited as necessary for today's visit. Zofia Donnelly APRN.LACY documented in this encounter [facility] 09-02-2021 History of Present illness Narrative Radiology Service Progress Note PATIENT NAME: Ilene Shaw DATE OF SERVICE: September 02, 2021 TIME: 10:40 AM PATIENT IDENTITY VERIFICATION COMPLETED USING TWO (2) IDENTIFIERS: Name and Date of confirmed by patient verbally. FALL SCREENING: Has the patient had 2 falls in the last year or 1 fall with injury or currently using an Ambulatory Assistive Device (Walker, Cane, Wheelchair, Crutches, etc.)? No PATIENT GENDER DATA: Female. status: : No status: NO. PATIENT RELEVANT IMPLANT DATA REVIEWED: Not Applicable RADIOLOGY DEPARTMENT: Mammography PERIPHERAL IV DATA: Not applicable SIGNED BY: RT Jazmin(R) September 02, 2021 10:40 AM documented in this encounter [facility] 09-02-2021 Miscellaneous Notes Please inform pt. that her mammogram is fine. Pt. needs OV in the next few weeks. Thank you. Zofia Donnelly APRN.[employer] documented in this encounter [facility] 05-31-2021 Miscellaneous Notes Patient calls to report she continues to take Bactrim DS for lump under arm but now she is developing a yeast infection. States yeast infection started yesterday and symptoms are worsening. Patient asking for prescription to treat yeast infection be sent to [facility]. Please review and advise, Sheree Ferrer RN documented in this encounter [facility] 03-12-2015 History of Past i llness Narrative Problem Noted Date Resolved Date Breast cancer, right 03/12/2015 02/11/2022 Breast cancer 08/14/2014 02/11/2022 Lump or mass in breast 08/09/2014 9 documented as of this encounter (statuses as of 03/03/2022) [address]28-2015 History of Past illness Narrative* Problem Noted Date Resolved Date Breast cancer, right 03/12/2015 02/11/2022 Breast cancer 08/14/2014 02/11/2022 Lump or mass in breast 08/09/2014 9 documented as of this encounter (statuses as of 03/15/2022) [address]-2015 History of Past illness Narrative* Problem Noted Date Resolved Date Breast cancer, right 03/12/2015 02/11/2022 Breast cancer 08/14/2014 02/11/2022 Lump or mass in breast 08/09/2014 9 documented as of this encounter (statuses as of 03/18/2022) [place] [id number] History of Past illness Narrative* Problem Noted Date Resolved Date Breast cancer, right 03/12/2015 02/11/2022 Breast cancer 08/14/2014 02/11/2022 Lump or mass in breast 08/09/2014 9 documented as of this encounter (statuses as of 03/18/2022) [place] [id number] History of Past illness Narrative* Problem Noted Date Resolved Date Breast cancer, right 03/12/2015 02/11/2022 Breast cancer 08/14/2014 02/11/2022 Lump or mass in breast 08/09/2014 9 documented as of this encounter (statuses as of 05/16/2022) [address]-2015 History of Past illness Narrative* Problem Noted Date Resolved Date Breast cancer, right 03/12/2015 02/11/2022 Breast cancer 08/14/2014 02/11/2022 Lump or mass in breast 08/09/2014 9 documented as of this encounter (statuses as of 06/18/2022) [address]-2015 History of Past illness Narrative* Problem Noted Date Resolved Date Breast cancer, right 03/12/2015 02/11/2022 Breast cancer 08/14/2014 02/11/2022 Lump or mass in breast 08/09/2014 9 documented as of this encounter (statuses as of 09/04/2022) [address]-2015 History of Past illness Narrative* Problem Noted Date Resolved Date Breast cancer, right 03/12/2015 02/11/2022 Breast cancer 08/14/2014 02/11/2022 Lump or mass in breast 08/09/2014 9 documented as of this encounter (statuses as of 09/06/2022) [address]2015 History of Past illness Narrative* Problem Noted Date Resolved Date Breast cancer, right 03/12/2015 02/11/2022 Breast cancer 08/14/2014 02/11/2022 Lump or mass in breast 08/09/2014 9 documented as of this encounter (statuses as of 10/09/2022) [address]2015 History of Past illness Narrative* Problem Noted Date Resolved Date Breast cancer, right 03/12/2015 02/11/2022 Breast cancer 08/14/2014 02/11/2022 Lump or mass in breast 08/09/2014 9 documented as of this encounter (statuses as of 11/17/2022) [address]2015 History of Past illness Narrative* Problem Noted Date Diagnosed Date Resolved Date Breast cancer, right 03/12/2015 022 Breast cancer 08/14/2014 02/11/2022 Lump or mass in breast 08/09/201408/23 documented as of this encounter (statuses as of 01/28/2023) [address]2015 History of Past illness Narrative* Problem Noted Date Diagnosed Date Resolved Date Breast cancer, right 03/12/2015 022 Breast cancer 08/14/2014 02/11/2022 Lump or mass in breast 08/09/201408/23 documented as of this encounter (statuses as of 04/19/2023) [address]-2015 History of Past illness Narrative* Problem Noted Date Diagnosed Date Resolved Date Breast cancer, right 03/12/2015 022 Breast cancer 08/14/2014 02/11/2022 Lump or mass in breast 08/09/201408/23 documented as of this encounter (statuses as of 05/21/2023) [address]-2015 History of Past illness Narrative* Problem Noted Date Diagnosed Date Resolved Date Breast cancer, right 03/12/2015 022 Breast cancer 08/14/2014 02/11/2022 Lump or mass in breast 08/09/201408/23 documented as of this encounter (statuses as of 05/22/2023) [address]-2015 History of Past illness Narrative* Problem Noted Date Diagnosed Date Resolved Date Breast cancer, right 03/12/2015 022 Breast cancer 08/14/2014 02/11/2022 Lump or mass in breast 08/09/201408/23 documented as of this encounter (statuses as of 08/28/2023) [address]-2015 History of Past illness Narrative* Problem Noted Date Diagnosed Date Resolved Date Breast cancer, right 03/12/2015 022 Breast cancer 08/14/2014 02/11/2022 Lump or mass in breast 08/09/201408/23 documented as of this encounter (statuses as of 08/31/2023) [place] [id number] History of Past illness Narrative* Problem Noted Date Diagnosed Date Resolved Date Breast cancer, right 03/12/2015 022 Breast cancer 08/14/2014 02/11/2022 Lump or mass in breast 08/09/201408/23 documented as of this encounter (statuses as of 09/01/2023) [address]-2015 History of Past illness Narrative* Problem Noted Date Diagnosed Date Resolved Date Breast cancer, right 03/12/2015 022 Breast cancer 08/14/2014 02/11/2022 Lump or mass in breast 08/09/201408/23 documented as of this encounter (statuses as of 09/07/2023) [address]-2015 History of Past illness Narrative* Problem Noted Date Diagnosed Date Resolved Date Breast cancer, right 03/12/2015 022 Breast cancer 08/14/2014 02/11/2022 Lump or mass in breast 08/09/201408/23 documented as of this encounter (statuses as of 09/08/2023) [address] History of Past illness Narrative* Problem Noted Date Diagnosed Date Resolved Date Breast cancer, right 03/12/2015 022 Breast cancer 08/14/2014 02/11/2022 Lump or mass in breast 08/09/201408/23 documented as of this encounter (statuses as of 10/01/2023) [facility] History of Past illness Narrative* Problem Noted Date Diagnosed Date Resolved Date Breast cancer, right 03/12/2015 022 Breast cancer 08/14/2014 02/11/2022 Lump or mass in breast 08/09/201408/23 documented as of this encounter (statuses as of 10/01/2023) [facility] History of Past illness Narrative* Problem Noted Date Resolved Date Lump or mass in breast 08/09/2014 9 documented as of this encounter (statuses as of 09/03/2021) [facility] History of Past illness Narrative* Problem Noted Date Resolved Date Lump or mass in breast 08/09/2014 9 documented as of this encounter (statuses as of 10/30/2021) [facility] History of Past illness Narrative* Problem Noted Date Resolved Date Lump or mass in breast 08/09/2014 9 documented as of this encounter (statuses as of 11/06/2021) [facility] History of Past illness Narrative* Problem Noted Date Resolved Date Lump or mass in breast 08/09/2014 9 documented as of this encounter (statuses as of 12/03/2021) [facility] History of Past illness Narrative* Problem Noted Date Resolved Date Lump or mass in breast 08/09/2014 9 documented as of this encounter (statuses as of 12/17/2021) [address]25-2015 History of Past illness Narrative* Problem Noted Date Resolved Date Lump or mass in breast 08/09/2014 9 documented as of this encounter (statuses as of 01/25/2022) [facility] History of Past illness Narrative* Problem Noted Date Resolved Date Lump or mass in breast 08/09/2014 9 documented as of this encounter (statuses as of 01/30/2022) [facility] History of Past illness Narrative* Problem Noted Date Resolved Date Lump or mass in breast 08/09/2014 9 documented as of this encounter (statuses as of 02/07/2022) [facility] History of Past illness Narrative* Problem Noted Date Resolved Date Lump or mass in breast 08/09/2014 9 documented as of this encounter (statuses as of 02/07/2022) [facility] Venkat Mustafa [facility] May 27, 2023 1:39am Note Date/Time May 27, 2023 12:45am [facility] Medical Records Department [address] [place] [address] Emergency Department Summary 05/27/23 MR#: [id number] Acct: [id number] Name: ILENE SHAW Rep #:[id number] : 1950 73 From: Venkat Mustafa MD PCP: Dr. Jennifer Santos MD Status:REG E R Location: ED HPI History of Present Illness Chief Complaint: Allergic Reaction Informant: patient and family Narrative Narrative: Had an hour prior to arrival, patient noticed spontaneous swelling of the left side of her tongue. Able to swallow. No trouble breathing. No edema anywhere else. Has some asymptomatic redness on her left forearm consistent with patchesthat are salmon-colored associated with stills disease that she has been having for decades off-and-on. Family states that she found out there was a in the family today. The patient is anxious type, and has had swelling in different areas randomly in the past without being on lisinopril or any other blood pressure medication, and it often times has occurred after something stressful. The last time it occurred was a month or 2 ago and it was her lips. The right was worse than the left. She was seen at another hospital and prescribed methylprednisolone and the she states that took care of it. [facility] Medical History Adult-onset Still's disease Anxiety Bowel obstruction Breast cancer Depression Endometriosis Kidney stones Pulmonary embolism Home Medications alprazolam 0.25 mg tablet 0.25 mg PO TID PRN PRN Insomnia 08/16/14 [History Last Taken Unknown] escitalopram oxalate 10 mg tablet 10 mg PO DAILY 08/16/14 [History Last Taken Unknown] rivaroxaban 20 mg tablet (Xarelto) 20 mg PO DAILY #30 tabs 03/02/22 [Rx Last Taken Unknown] methylprednisolone 32 mg tablet 32 mg PO DAILY #4 tabs 05/27/23 [Rx Last Taken Unknown] Allergy/AdvReac Type Severity Reaction Status Date / Time ampicillin Allergy Rash Verified 05/26/23 23:44 prednisone AdvReac SHAKINESS Verified 05/26/23 23:44 Surgical History H/O lumpectomy H/O: hysterectomy History of bowel resection History of colostomy reversal Social History Smoking Status: Never smoker ROS ROS ED Constitutional Constitutional ED: Denies chills or fever(s) Eyes Eyes: Denies change in vision or diplopia ENT ENT ED: Reports as per HPI and tongue swelling; Denies rhinorrhea or sore throat Cardiovascular Cardiovascular: Denies chest pain or palpitations Respiratory/Chest Respiratory/Chest: Denies cough or dyspnea Gastrointestinal Gastrointestinal: Denies abdominal pain, diarrhea, nausea or vomiting Genitourinary Genitourinary ED: Denies dysuria or hematuria Musculoskeletal Musculoskeletal: Denies back pain or neck pain Integumentary Reports rash; Denies abscess Neurologic Neurologic: Denies headache(s), paresthesias or weakness Psychiatric Psychiatric: Denies anxiety or suicidal thoughts EXAM Physical Exam Const Vital Signs: 05/26/23 23:40 05/27/23 01:28 Temperature 97.3 F L Temperature Source Temporal Pulse Rate 72 79 Respiratory Rate 15 15 Blood Pressure 157/99 H 153/79 H Blood Pressure Mean 118 103 Pulse Ox 99 96 Oxygen Delivery Method Room Air Room Air Positive well nourished and well developed Constitutional Narrative: No distress speaking in full sentences, sitting comfortably General Appearance ED: well developed and NAD HEENT Reports moist mucous membranes HEENT Narrative: Mild edema of the left side of the tongue. Otherwise normal-appearing. Able tovisualize posterior pharynx which is normal-appearing. No stridor. Normal voice. normocephalic and atraumatic Eyes PERRL and EOMs intact bilaterally Neck full ROM and supple Resp normal respiratory effort and clear to auscultation bilaterally Cardio regular rate, regular rhythm and no murmurs Rate: Negative for tachycardic Back/Spine no CVA tenderness General Back: other FROM Extremity normal to inspection General Extremety ED: Negative for edema, pulses abnormal or tenderness General Extremity: Negative for edema or pulses abnormal Neuro oriented x3, CN's II-XII intact bilaterally and no sensory deficits noted Sensorium / Orientation: awake and alert Motor Exam: strength 5/5 throughout Skin no wounds Skin Narrative: Large patch of nontender nonindurated blanching erythema left proximal medial forearm. No lymphangitis. No palpable cords. MDM MDM MDM Narrative Medical decision making narrative: MD patient is not on any medications that should be causing this. She states she followed up with her doctor or after this episode a couple months ago and had normal labs done as an outpatient. 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 She does not know of any family members that of have this that she can recall. She had very few episodes throughout her life of this. She is well-appearing right now and not in any distress, but certainly for progressive would be concerning and she presents at midnight, so I am apprehensive about just giving her prescription and sending her home to sleep. I discussed this with her which is why I recommended observing her at least in the ER and treating empirically with steroids and Benadryl, to which she and family are amenable. After 2 hours of observation to her room in the ER, the patient is feeling better. She has objective less edema of the left side of her tongue. She has developed no other symptoms. We discussed admission which was considered, especially given the location of her angioedema and the time of night. She declines and wants to go home. She understands the risks, I am okay with this since she does have objective improvement, we discussed reasons to return, sinceit seems to be responding to Benadryl/steroids, she is getting a prescription for steroids, she is requesting methylprednisolone since she tolerated this better than prednisone in the past. Discharge Plan Triage Chief Complaint: Allergic Reaction ED Provider: Venkat Mustafa Dx/Rx/DC Orders Clinical Impression: Angioedema of tongue Instructions: ED Angioedema Prescriptions: New methylprednisolone 32 mg tablet 32 mg PO DAILY Qty: 4 0RF Continued alprazolam 0.25 MG tablet 0.25 mg PO TID PRN PRN (Reason: Insomnia) escitalopram oxalate 10 MG tablet 10 mg PO DAILY Xarelto 20 mg tablet 20 mg PO DAILY Qty: 30 0RF Rx Instructions: must administer with evening meal Discontinued prednisone 20 mg tablet 60 mg PO DAILY Qty: 15 0RF Primary Care Provider: Jennifer Santos Referrals: Jennifer Santos MD [Primary Care Provider] - 5-7 Days (if tongue swelling worsening or trouble breathing/swallowing, return to ER immediately) Activity Restrictions/Additional Instructions: Since you were given an initial dose of IV steroids in the ER, you may start theprescription night of 05/27 or morning of 05/28, taking the tablets once daily as prescribed until finished. If you have any worsening of symptoms tonight, you may take Benadryl 50 mg by mouth, if you do not feel like it is helping or if you are getting worse to the point of trouble breathing or swallowing, returnto the ER immediately. Disposition Disposition: Home, Self Care What to do if you have Problems For any increased pain, shortness of breath, bleeding, nausea or vomiting, chestpain, or any unexpected problems, contact your Primary Care Provider. Call [facility] ([phone]) or report to the closest Emergency Room. Call 911 if necessary. 05/27/23 0139 <Electronically signed by Venkat Mustafa MD> Cosigner Signature (if applicable): CC: Dr. Jennifer Santos MD ~ Signed [facility] Work Phone: Evaluation + Plan note No data available for this section [facility] Evaluation note* Diagnosis 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) Encounter for screening mammogram for high-risk patient [facility] Diagnosis 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)- Primary Cellulitis of axillary region Cellulitis and abscess of upper arm and forearm [facility] Cutaneous abscess of right axilla- Primary Cellulitis and abscess of upper arm and forearm [facility] Diagnosis Axillary abscess- Primary Cellulitis and abscess of upper arm and forearm [facility] Diagnosis Urinary frequency- Primary Elevated blood pressure reading without diagnosis of hypertension Acute vaginitis Vaginitis and vulvovaginitis, unspecified [facility] Diagnosis Left leg swelling- Primary Swelling of limb [facility] noteNo assessment information availableWUniversity Hospitals Health System Work Phone: Evaluation note* Diagnosis Anxiety- Primary Anxiety state, unspecified DVT (deep vein thrombosis) in Deep phlebothrombosis, antepartum, unspecified as to episode of care Hyperlipidemia with target low density lipoprotein (LDL) cholesterol less than 130 mg/dL [facility]* Diagnosis Recurrent deep vein thrombosis (DVT) of lower extremity, unspecified laterality (HCC)- Primary Allergy to antithrombotic medication [facility]* Diagnosis Recurrent deep vein thrombosis (DVT) of lower extremity, unspecified laterality (HCC) [facility]* Diagnosis Recurrent deep vein thrombosis (DVT) (HCC)- Primary Pedal edema Edema Other acute sinusitis, recurrence not specified [facility] center note* Diagnosis 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)- Primary Personal history of breast cancer Personal history of malignant neoplasm of breast Encounter for screening mammogram for malignant neoplasm of breast Other [facility] 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) Personal history of breast cancer Personal history of malignant neoplasm of breast Encounter for screening mammogram for malignant neoplasm of breast Other [facility] Lip [facility]- Primary Diseases of lips [facility] Diagnosis Angioedema of lips, subsequent encounter- Primary [facility] Diagnosis Blurred vision, right eye- Primary Other specified visual disturbances [facility] Diagnosis ER+ (estrogen receptor positive status)- Primary Estrogen receptor positive status [ER+] Encounter for screening mammogram for breast cancer documented in this encounter [facility]* Diagnosis ER+ (estrogen receptor positive status) Estrogen receptor positive status [ER+] Encounter for screening mammogram for breast cancer documented in this encounter [facility] note* Diagnosis Abnormal mammogram of left breast documented in this encounter [facility]* Diagnosis Abnormal mammogram of left breast documented in this encounter [facility]* Diagnosis Vaginal itching- Primary Pruritus of genital organs documented in this encounter [facility] note* Diagnosis Sinobronchitis- Primary Unspecified sinusitis (chronic) Acute cough documented in this encounter [facility] note* Diagnosis Acute cough documented in this encounter [facility] note* Diagnosis Encounter for routine adult medical exam with abnormal findings- Primary ER+ (estrogen receptor positive status) Estrogen receptor positive status [ER+] Vitamin D deficiency Unspecified vitamin D deficiency Malignant neoplasm of lower-inner quadrant of left breast in female, estrogen receptor positive (HCC) Adjustment disorder with depressed mood Ovarian cyst, right Other and unspecified ovarian cyst Dry skin dermatitis Contact dermatitis and other eczema due to other specified agent Urinary urgency Urgency of urination S/P TACO-BSO (total abdominal hysterectomy and bilateral salpingo-oophorectomy) Acquired absence of both cervix and uterus Acute UTI- Primary Urinary tract infection, site not specified Screening for STD (sexually transmitted disease) Screening examination for venereal disease Vaginal irritation Unspecified noninflammatory disorder of vagina documented in this encounter [facility]* Diagnosis Encounter for routine adult medical exam with abnormal findings- Primary ER+ (estrogen receptor positive status) Estrogen receptor positive status [ER+] Vitamin D deficiency Unspecified vitamin D deficiency Malignant neoplasm of lower-inner quadrant of left breast in female, estrogen receptor positive (HCC) Adjustment disorder with depressed mood Ovarian cyst, right Other and unspecified ovarian cyst Dry skin dermatitis Contact dermatitis and other eczema due to other specified agent Urinary urgency Urgency of urination S/P TACO-BSO (total abdominal hysterectomy and bilateral salpingo-oophorectomy) Acquired absence of both cervix and uterus Encounter for screening mammogram for breast cancer documented in this encounter [facility] note* Diagnosis Encounter for routine adult medical exam with abnormal findings- Primary ER+ (estrogen receptor positive status) Estrogen receptor positive status [ER+] Vitamin D deficiency Unspecified vitamin D deficiency Malignant neoplasm of lower-inner quadrant of left breast in female, estrogen receptor positive (HCC) Adjustment disorder with depressed mood Ovarian cyst, right Other and unspecified ovarian cyst Dry skin dermatitis Contact dermatitis and other eczema due to other specified agent Urinary urgency Urgency of urination S/P TACO-BSO (total abdominal hysterectomy and bilateral salpingo-oophorectomy) Acquired absence of both cervix and uterus Encounter for screening mammogram for breast cancer [facility] Diagnosis Encounter for routine adult medical exam with abnormal findings- Primary ER+ (estrogen receptor positive status) Estrogen receptor positive status [ER+] Vitamin D deficiency Unspecified vitamin D deficiency Malignant neoplasm of lower-inner quadrant of left breast in female, estrogen receptor positive (HCC) Adjustment disorder with depressed mood Ovarian cyst, right Other and unspecified ovarian cyst Dry skin dermatitis Contact dermatitis and other eczema due to other specified agent Urinary urgency Urgency of urination S/P TACO-BSO (total abdominal hysterectomy and bilateral salpingo-oophorectomy) Acquired absence of both cervix and uterus Screening for colorectal cancer- Primary Special screening for malignant neoplasms, colon [facility] Additional Instructions Since you were given an initial dose of IV steroids in the ER, you may start the prescription night of 05/27 or morning of 05/28, taking the tablets once daily as prescribed until finished. If you have any worsening of symptoms tonight, you may take Benadryl 50 mg by mouth, if you do not feel like it is helping or if you are getting worse to the point of trouble breathing or swallowing, return to the ER immediately.[facility] Work Phone: Reason for referral (narrative)* Outpatient Procedure (Urgent) - Closed Specialty Diagnoses / Procedures Referred By Amy cherry [facility] Diagnoses Left leg swelling Procedures US LEG VEIN DVT UNL VAS LAB DUP-SCAN XTR VEINS UNILATERAL/LIMITED STUDY Torrey Dawson PA-C [address] [place] [address] [facility] [place] [address] [place] [address] Referral ID Status Reason Start Date Expiration Date V isits Requested Visits Authorized [id number] Closed Auto-Generate d Referral 02/07/2022 02/07/2023 1 1 [facility] for referral (narrative)* Diagnostic Procedure Only (Routine) - Closed Specialty Diagnoses / Procedures Referred By Contac t Referred To Contact [facility] Diagnoses 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) Personal history of breast cancer Encounter for screening mammogram for malignant neoplasm of breast Procedures BARBARA SCREENING W EL SCREENING DIGITAL BREAST TOMOSYNTHESIS BI SCREENING MAMMOGRAPHY BI 2-VIEW BREAST INC [facility] Zofia Donnelly, DEBO.INSIDE SALES ASSOCIATE [address] [place] [address] [facility] [address] [place] [address] Referral ID Status Reason Start Date Expiration Date V isits Requested Visits Authorized [id number] Closed Auto-Generate d Referral 08/19/2022 09/17/2023 1 1 [facility] for referral (narrative)* Diagnostic Procedure Only (Routine) - Closed Specialty Diagnoses / Procedures Referred By Amy cherry Referred To Contact [facility] Diagnoses 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) Personal history of breast cancer Encounter for screening mammogram for malignant neoplasm of breast Procedures BARBARA SCREENING W EL SCREENING DIGITAL BREAST TOMOSYNTHESIS BI SCREENING MAMMOGRAPHY BI 2-VIEW BREAST INC [facility] Zofia Donnelly, DEBO.INSIDE SALES ASSOCIATE [address] [place] [address] [facility] [address] [place] [address] Referral ID Status Reason Start Date Expiration Date V isits Requested Visits Authorized [id number] Closed Auto-Generate d Referral 08/19/2022 09/17/2023 1 1 [facility] for referral (narrative)* Diagnostic Procedure Only (Routine) - Pending Review Specialty Diagnoses / Procedures Referred By Contac t Referred To Contact [facility] Diagnoses ER+ (estrogen receptor positive status) Encounter for screening mammogram for breast cancer Procedures BARBARA SCREENING W EL SCREENING DIGITAL BREAST TOMOSYNTHESIS BI SCREENING MAMMOGRAPHY BI 2-VIEW BREAST INC CAD Ashlyn Roger APRN.THERMOSTAT MECHANIC [address] [place] [address] [facility] [address] [place] [address] Referral ID Status Reason Start Date Expiration Date Visits Requested Visits Authorized [id number] Pending Review Auto-Generat ed Referral 09/01/2023 09/30/2024 1 1 [facility] for referral (narrative)* Diagnostic Procedure Only (Routine) - Closed Specialty Diagnoses / Procedures Referred By Amy cherry Referred To Contact [facility] Diagnoses Abnormal mammogram of left breast Procedures US BREAST LTD LEFT US BREAST UNI REAL TIME WITH IMAGE LIMITED Ashlyn Roger APRN.THERMOSTAT MECHANIC [address] [place] [address] [facility] [address] [place] [address] Referral ID Status Reason Start Date Expiration Date V isits Requested Visits Authorized [id number] Closed Auto-Generate d Referral 09/08/2023 10/07/2024 1 1 [facility] for referral (narrative)No reason for referral information [facility] Work Phone: Reason for visit Narrative* Diagnostic Procedure Only (Routine) - Closed Specialty Diagnoses / Procedures Referred By Amy cherry Referred To Contact [facility] Diagnoses 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) Personal history of breast cancer Encounter for screening mammogram for malignant neoplasm of breast Procedures BARBARA SCREENING W EL SCREENING DIGITAL BREAST TOMOSYNTHESIS BI SCREENING MAMMOGRAPHY BI 2-VIEW BREAST INC CAD Zofia Donnelly APRN.INSIDE SALES ASSOCIATE [address] [place] [address] [facility] [address] [place] [address] Referral ID Status Reason Start Date Expiration Date V isits Requested Visits Authorized [id number] Closed Auto-Generate d Referral 08/19/2022 09/17/2023 1 1 [facility] for visit Narrative* Diagnostic Procedure Only (Routine) - Closed Specialty Diagnoses / Procedures Referred By Amy cherry Referred To Contact [facility] Diagnoses ER+ (estrogen receptor positive status) Encounter for screening mammogram for breast cancer Procedures BARBARA SCREENING W EL SCREENING DIGITAL BREAST TOMOSYNTHESIS BI SCREENING MAMMOGRAPHY BI 2-VIEW BREAST INC CAD Ashlyn Roger, DOOR FRAME ASSEMBLER MACHINE.THERMOSTAT MECHANIC [address] [place] [address] [facility] [address] [place] [address] Referral ID Status Reason Start Date Expiration Date V isits Requested Visits Authorized [id number] Closed Auto-Generate d Referral 09/01/2023 09/30/2024 1 1 [facility] for visit Narrative* Diagnostic Procedure Only (Routine) - Closed Specialty Diagnoses / Procedures Referred By Amy cherry Referred To Contact [facility] Diagnoses Abnormal mammogram of left breast Procedures US BREAST LTD LEFT US BREAST UNI REAL TIME WITH IMAGE LIMITED Ashlyn Roger, DOOR FRAME ASSEMBLER MACHINE.THERMOSTAT MECHANIC [address] [place] [address] [facility] [address] [place] [address] Referral ID Status Reason Start Date Expiration Date V isits Requested Visits Authorized [id number] Closed Auto-Generate d Referral 09/08/2023 10/07/2024 1 1 [facility] for visit Narrative* Diagnostic Procedure Only (Routine) - Closed Specialty Diagnoses / Procedures Referred By Amy cherry Referred To Contact [facility] Diagnoses Abnormal mammogram of left breast Procedures BARBARA DIAGNOSTIC LEFT DIAGNOSTIC MAMMOGRAPHY COMPUTER-AIDED DETCJ UNI Ashlyn Roger, DOOR FRAME ASSEMBLER MACHINE.THERMOSTAT MECHANIC [address] [place] [address] [facility] [address] [place] [address] Referral ID Status Reason Start Date Expiration Date V isits Requested Visits Authorized [id number] Closed Auto-Generate d Referral 09/08/2023 10/07/2024 1 1 [facility] for visit Narrative* Diagnostic Procedure Only (Routine) - Closed Specialty Diagnoses / Procedures Referred By Amy t Referred To Contact [facility] Diagnoses Encounter for screening mammogram for breast cancer Procedures BARBARA SCREENING W EL SCREENING DIGITAL BREAST TOMOSYNTHESIS BI SCREENING MAMMOGRAPHY BI 2-VIEW BREAST INC CAD Older, Kelle, DEBO.INSIDE SALES ASSOCIATE [address] [place] [address] Phone: tel: fax: [facility] [address] [place] [address] Referral ID Status Reason Start Date Expiration Date V isits Requested Visits Authorized [id number] Closed Auto-Generate d Referral 09/14/2024 10/14/2025 1 1 [facility] Summary Purpose Family History No Family History Records Found No data available for this section No data available for this section No Family History Records FoundNo Family History Records FoundNo Family History Records Found Advance Directives No Advanced Directives Records Found Advance Directive Response Recorded Date/ Time Advance Directives No August 16 10:15am Living Will No February 18 022 7:31am Power of Shirt Trimmer No February 18, 2022 7:31am Advance Directive Response Recorded Date/ Time Advance Directives No August 16 10:15am Living Will No March 02, 2022 6:30pm Power of Shirt Trimmer No February 6:30pm Advance Directive Response Recorded Date/ Time Advance Directives No August 16 9:15am Living Will No May 26 023 11:53pm Power of Shirt Trimmer No May 26, 2023 11:53pm Advance Directive Response Recorded Date/ Time Advance Directives No August 16 10:15am Living Will No August 28, 2023 6:01pm Power of Shirt Trimmer No August 27 6:01pm Advance Directive Response Recorded Date/ Time Advance Directives No August 16 10:15am Chief Complaint and Reason for Visit Chief Complaint DVT Chief Complaint DVT EDEMA Chief Complaint TONGUE EDEMA Chief Complaint TONGUE EDEMA eye problem Chief Complaint Admit Date Cough January 03, 2025 2:56 pm Additional Source Comments INFORMATION SOURCE (unrecogn ized section and content) DATE CREATED AUTHOR 11/14/2018 [facility] DATE CREATED AUTHOR AUTHOR'S ORGANIZ ATION 09/03/2023 [facility] ([place] DATE CREATED AUTHOR AUTHOR'S ORGANIZ ATION 12/24/2024 [facility] DATE CREATED AUTHOR AUTHOR'S ORGANIZ ATION 04/05/2025 [facility] Source Comments (unrecognize d section and content) In the event this informatio n is protected by the Federal Confidentiality of Alcohol and Drug Abuse Patient Records regulations: The Federal rules restrict any use of the information to criminally investigate or prosecute any alcohol or drug abuse patient.[facility] the event this information is protected by the Federal Confidentiality of Alcohol and Drug Abuse Patient Records regulations: The Federal rules restrict any use of the information to criminally investigate or prosecute any alcohol or drug abuse patient.[facility] the event this information is protected by the Federal Confidentiality of Alcohol and Drug Abuse Patient Records regulations: The Federal rules restrict any use of the information to criminally investigate or prosecute any alcohol or drug abuse patient.[facility] the event this information is protected by the Federal Confidentiality of Alcohol and Drug Abuse Patient Records regulations: The Federal rules restrict any use of the information to criminally investigate or prosecute any alcohol or drug abuse patient.[facility] the event this information is protected by the Federal Confidentiality of Alcohol and Drug Abuse Patient Records regulations: The Federal rules restrict any use of the information to criminally investigate or prosecute any alcohol or drug abuse patient.[facility] the event this information is protected by the Federal Confidentiality of Alcohol and Drug Abuse Patient Records regulations: The Federal rules restrict any use of the information to criminally investigate or prosecute any alcohol or drug abuse patient.[facility] the event this information is protected by the Federal Confidentiality of Alcohol and Drug Abuse Patient Records regulations: The Federal rules restrict any use of the information to criminally investigate or prosecute any alcohol or drug abuse patient.[facility] the event this information is protected by the Federal Confidentiality of Alcohol and Drug Abuse Patient Records regulations: The Federal rules restrict any use of the information to criminally investigate or prosecute any alcohol or drug abuse patient.[facility] the event this information is protected by the Federal Confidentiality of Alcohol and Drug Abuse Patient Records regulations: The Federal rules restrict any use of the information to criminally investigate or prosecute any alcohol or drug abuse patient.[facility] the event this information is protected by the Federal Confidentiality of Alcohol and Drug Abuse Patient Records regulations: The Federal rules restrict any use of the information to criminally investigate or prosecute any alcohol or drug abuse patient.[facility] the event this information is protected by the Federal Confidentiality of Alcohol and Drug Abuse Patient Records regulations: The Federal rules restrict any use of the information to criminally investigate or prosecute any alcohol or drug abuse patient.[facility] the event this information is protected by the Federal Confidentiality of Alcohol and Drug Abuse Patient Records regulations: The Federal rules restrict any use of the information to criminally investigate or prosecute any alcohol or drug abuse patient.[facility] the event this information is protected by the Federal Confidentiality of Alcohol and Drug Abuse Patient Records regulations: The Federal rules restrict any use of the information to criminally investigate or prosecute any alcohol or drug abuse patient.[facility] the event this information is protected by the Federal Confidentiality of Alcohol and Drug Abuse Patient Records regulations: The Federal rules restrict any use of the information to criminally investigate or prosecute any alcohol or drug abuse patient.[facility] the event this information is protected by the Federal Confidentiality of Alcohol and Drug Abuse Patient Records regulations: The Federal rules restrict any use of the information to criminally investigate or prosecute any alcohol or drug abuse patient.[facility] the event this information is protected by the Federal Confidentiality of Alcohol and Drug Abuse Patient Records regulations: The Federal rules restrict any use of the information to criminally investigate or prosecute any alcohol or drug abuse patient.[facility] the event this information is protected by the Federal Confidentiality of Alcohol and Drug Abuse Patient Records regulations: The Federal rules restrict any use of the information to criminally investigate or prosecute any alcohol or drug abuse patient.[facility]In the event this information is protected by the Federal Confidentiality of Alcohol and Drug Abuse Patient Records regulations: The Federal rules restrict any use of the information to criminally investigate or prosecute any alcohol or drug abuse patient.[facility]In the event this information is protected by the Federal Confidentiality of Alcohol and Drug Abuse Patient Records regulations: The Federal rules restrict any use of the information to criminally investigate or prosecute any alcohol or drug abuse patient.[facility]In the event this information is protected by the Federal Confidentiality of Alcohol and Drug Abuse Patient Records regulations: The Federal rules restrict any use of the information to criminally investigate or prosecute any alcohol or drug abuse patient.[facility]In the event this information is protected by the Federal Confidentiality of Alcohol and Drug Abuse Patient Records regulations: The Federal rules restrict any use of the information to criminally investigate or prosecute any alcohol or drug abuse patient.[facility] HospitalIn the event this information is protected by the Federal Confidentiality of Alcohol and Drug Abuse Patient Records regulations: The Federal rules restrict any use of the information to criminally investigate or prosecute any alcohol or drug abuse patient.[facility] HospitalIn the event this information is protected by the Federal Confidentiality of Alcohol and Drug Abuse Patient Records regulations: The Federal rules restrict any use of the information to criminally investigate or prosecute any alcohol or drug abuse patient.[facility] HospitalIn the event this information is protected by the Federal Confidentiality of Alcohol and Drug Abuse Patient Records regulations: The Federal rules restrict any use of the information to criminally investigate or prosecute any alcohol or drug abuse patient.[facility] HospitalIn the event this information is protected by the Federal Confidentiality of Alcohol and Drug Abuse Patient Records regulations: The Federal rules restrict any use of the information to criminally investigate or prosecute any alcohol or drug abuse patient.[facility] HospitalIn the event this information is protected by the Federal Confidentiality of Alcohol and Drug Abuse Patient Records regulations: The Federal rules restrict any use of the information to criminally investigate or prosecute any alcohol or drug abuse patient.[facility] HospitalIn the event this information is protected by the Federal Confidentiality of Alcohol and Drug Abuse Patient Records regulations: The Federal rules restrict any use of the information to criminally investigate or prosecute any alcohol or drug abuse patient.[facility] HospitalIn the event this information is protected by the Federal Confidentiality of Alcohol and Drug Abuse Patient Records regulations: The Federal rules restrict any use of the information to criminally investigate or prosecute any alcohol or drug abuse patient.[facility] HospitalIn the event this information is protected by the Federal Confidentiality of Alcohol and Drug Abuse Patient Records regulations: The Federal rules restrict any use of the information to criminally investigate or prosecute any alcohol or drug abuse patient.[facility] HospitalIn the event this information is protected by the Federal Confidentiality of Alcohol and Drug Abuse Patient Records regulations: The Federal rules restrict any use of the information to criminally investigate or prosecute any alcohol or drug abuse patient.[facility] HospitalIn the event this information is protected by the Federal Confidentiality of Alcohol and Drug Abuse Patient Records regulations: The Federal rules restrict any use of the information to criminally investigate or prosecute any alcohol or drug abuse patient.[facility] HospitalIn the event this information is protected by the Federal Confidentiality of Alcohol and Drug Abuse Patient Records regulations: The Federal rules restrict any use of the information to criminally investigate or prosecute any alcohol or drug abuse patient.[facility] HospitalIn the event this information is protected by the Federal Confidentiality of Alcohol and Drug Abuse Patient Records regulations: The Federal rules restrict any use of the information to criminally investigate or prosecute any alcohol or drug abuse patient.[facility] HospitalIn the event this information is protected by the Federal Confidentiality of Alcohol and Drug Abuse Patient Records regulations: The Federal rules restrict any use of the information to criminally investigate or prosecute any alcohol or drug abuse patient.[facility] HospitalIn the event this information is protected by the Federal Confidentiality of Alcohol and Drug Abuse Patient Records regulations: The Federal rules restrict any use of the information to criminally investigate or prosecute any alcohol or drug abuse patient.[facility] [facility] Hospital[facility] the event this information is protected by the Federal Confidentiality of Alcohol and Drug Abuse Patient Records regulations: The Federal rules restrict any use of the information to criminally investigate or prosecute any alcohol or drug abuse patient.[facility] HospitalIn the event this information is protected by the Federal Confidentiality of Alcohol and Drug Abuse Patient Records regulations: The Federal rules restrict any use of the information to criminally investigate or prosecute any alcohol or drug abuse patient.[facility] Hospital[facility] the event this information is protected by the Federal Confidentiality of Alcohol and Drug Abuse Patient Records regulations: The Federal rules restrict any use of the information to criminally investigate or prosecute any alcohol or drug abuse patient.[facility] HospitalIn the event this information is protected by the Federal Confidentiality of Alcohol and Drug Abuse Patient Records regulations: The Federal rules restrict any use of the information to criminally investigate or prosecute any alcohol or drug abuse patient.[facility] HospitalIn the event this information is protected by the Federal Confidentiality of Alcohol and Drug Abuse Patient Records regulations: The Federal rules restrict any use of the information to criminally investigate or prosecute any alcohol or drug abuse patient.[facility] HospitalIn the event this information is protected by the Federal Confidentiality of Alcohol and Drug Abuse Patient Records regulations: The Federal rules restrict any use of the information to criminally investigate or prosecute any alcohol or drug abuse patient.[facility] Care Teams (unrecognized sec tion and content) Insulation Extruder Operator Relationship Specialty Start Date End Date Jennifer Santos MD [address] [place], [place] [id number] PCP - General Internal Medicine 04/15/21 Insulation Extruder Operator Relationship Specialty Start Date End Date Jennifer Santos MD [address] [place] [address], [place] [address] PCP - General Internal Medicine 04/15/21 Insulation Extruder Operator Relationship Specialty Start Date End Date Jennifer Santos MD [address] [place] [address] PCP - General Internal Medicine 04/15/21 Insulation Extruder Operator Relationship Specialty Start Date End Date Jennifer Santos MD [address] [place] [address] PCP - General Internal Medicine 04/15/21 Insulation Extruder Operator Relationship Specialty Start Date End Date Jennifer Santos MD [address] [place] [address] PCP - General Internal Medicine 04/15/21 Insulation Extruder Operator Relationship Specialty Start Date End Date Jennifer Santos MD [address] [place] [address] PCP - General Internal Medicine 04/15/21 Insulation Extruder Operator Relationship Specialty Start Date End Date Jennifer Santos MD [address] [place] [address] PCP - General Internal Medicine 04/15/21 Insulation Extruder Operator Relationship Specialty Start Date End Date Jennifer Santos MD [address] [place] [address] PCP - General Internal Medicine 04/15/21 Insulation Extruder Operator Relationship Specialty Start Date End Date Jennifer Santos MD [address] [place] [address] PCP - General Internal Medicine 04/15/21 Insulation Extruder Operator Relationship Specialty Start Date End Date Jennifer Santos MD [address] [place] [address] PCP - General Internal Medicine 04/15/21 Insulation Extruder Operator Relationship Specialty Start Date End Date Jennifer Santos MD [address] [place] [address] PCP - General Internal Medicine 04/15/21 Insulation Extruder Operator Relationship Specialty Start Date End Date Jennifer Santos MD [address] [place], [place] [address] PCP - General Internal Medicine 04/15/21 Insulation Extruder Operator Relationship Specialty Start Date End Date Jennifer Santos MD [address] [place] [address] PCP - General Internal Medicine 04/15/21 Insulation Extruder Operator Relationship Specialty Start Date End Date Jennifer Santos MD [address] [place] [address] PCP - General Internal Medicine 04/15/21 Insulation Extruder Operator Relationship Specialty Start Date End Date Jennifer Santos MD [address] [place] [address] PCP - General Internal Medicine 04/15/21 Insulation Extruder Operator Relationship Specialty Start Date End Date Jennifer Santos MD [address] [place] [address] PCP - General Internal Medicine 04/15/21 Team Status: Active Member Role Status Dates Dr. Xavier Poon III, MD Family Provider Active Dr. Jennifer Santos MD Primary Care Provider Active Team Status: Inactive Member Role Status Dates Dr. Jennifer Santos MD Primary Care Provider Active Dr. Venkat Mustafa MD Emergency Provider Active Team Status: Inactive Member Role Status Dates Dr. Jennifer Santos MD Primary Care Provider Active Dr. Venkat Mustafa MD Attending Provider, Emergency Provider Active Team Status: Inactive Member Role Status Dates Dr. Jennifer Santos MD Primary Care Provider Active 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 Insulation Extruder Operator Relationship Specialty Start Date End Date Jennifer Santos MD [address] [place], [place] [address] PCP - General Internal Medicine 04/15/21 Insulation Extruder Operator Relationship Specialty Start Date End Date Jennifer Santos MD [address] [place] [address] PCP - General Internal Medicine 04/15/21 Insulation Extruder Operator Relationship Specialty Start Date End Date Jennifer Santos MD [address] [place] [address] PCP - General Internal Medicine 04/15/21 Insulation Extruder Operator Relationship Specialty Start Date End Date Jennifer Santos MD [address] [place] [address] PCP - General Internal Medicine 04/15/21 Insulation Extruder Operator Relationship Specialty Start Date End Date Jennifer Santos MD [address] [place] [address] PCP - General Internal Medicine 04/15/21 Insulation Extruder Operator Relationship Specialty Start Date End Date Jennifer Santos MD [address] [place] [address] PCP - General Internal Medicine 04/15/21 Insulation Extruder Operator Relationship Specialty Start Date End Date Jennifer Santos MD [address] [place] [address] PCP - General Internal Medicine 04/15/21 Insulation Extruder Operator Relationship Specialty Start Date End Date Jennifer Santos MD [address] [place] [address] PCP - General Internal Medicine 04/15/21 Insulation Extruder Operator Relationship Specialty Start Date End Date Jennifer Santos MD [address] [place] [address] PCP - General Internal Medicine 04/15/21 Insulation Extruder Operator Relationship Specialty Start Date End Date Jennifer Santos MD [address] [place] [address] PCP - General Internal Medicine 04/15/21 Insulation Extruder Operator Relationship Specialty Start Date End Date Jennifer Santos MD [address] [facility] [place] [address] PCP - General Internal Medicine 04/15/21 Kelle Peter APRN.INSIDE SALES ASSOCIATE [address] [facility] [place] [facility] [place] [address] [employer] Lieutenant Internal Medicine 05/22/24 Insulation Extruder Operator Relationship Specialty Start Date End Date Jennifer Santos MD [address] [facility] [place] [address] PCP - General Internal Medicine 04/15/21 Kelle Peter APRN.INSIDE SALES ASSOCIATE [address] [place] [address] [employer] Lieutenant Internal Medicine 05/22/24 Insulation Extruder Operator Relationship Specialty Start Date End Date Jennifer Santos MD [address] [facility] [place] [address] PCP - General Internal Medicine 04/15/21 Kelle Peter APRN.INSIDE SALES ASSOCIATE [address] [facility] [place] [facility] [place] [address] [employer] Lieutenant Internal Medicine 05/22/24 Insulation Extruder Operator Relationship Specialty Start Date End Date Jennifer Santos MD [address] [facility] [place] [address] PCP - General Internal Medicine 04/15/21 Brittani DEBO Nina.INSIDE SALES ASSOCIATE [address] [place] [address] [employer] Lieutenant Internal Medicine 05/22/24 Team Status: Active Member Role/Relationship Status Dates Dr. Xavier Poon III, MD Family Provider Active Dr. Jennifer Santos MD Primary Care Provider Active Team Status: Inactive Member Role/Relationship Status Dates Dr. Jennifer Santos MD Primary Care Provider Active Start: January 03, 2025 End: January 03, 2025 Dr. 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 Reason Comments Results Reason Comments ED Follow-up DVT and swelling in Eliquis Reason Onset Date Comments Refill Request 03/15/2022 Reason Comments foot problem Left foot itching an d swelling X 2 days Reason Comments Medication Question Reason Comments Follow Up on blood thinners d/ t DVT's co/ fatigue and depression Reason Comments Swelling / itching in left foot Reason Onset Date Comments Population Health Navigation Outreach 11/17/2022 [employer] Gaps Reason Comments Orders Mammogram Screening Reason Comments Facial Swelling L lower lip and chin x3 weeks, ER 05/07/23 Reason Comments ER F/U [facility] [place] - facial swelling Reason Comments Orders Reason Comments Orders Reason Comments itching and concerened it may be yeast i nfection X 1 month Reason Comments Chest Congestion cough, wheezing x 2. 5 weeks Reason Comments Urinary Problem Pressure, dribbling, groin cramping,frequency, itchy, x 1 week Reason Onset Date Comments NG Tube Replacement 11/29/2024 Patient is o verdue for colorectal cancer screening since 08/08/2024. Please schedule open access colonoscopy. Goals (unrecognized section and content) Goals may be documented in a n alternate sectionGoals may be documented in an alternate section No data available for this sectionGoals may be documented in an alternate sectionGoals may be documented in an alternate section No data available for this sectionGoals may be documented in an alternate section FOR RECORDS PERTAINING TO PATIENTS WHO ARE OR HAVE BEEN ENROLLED IN A CHEMICAL DEPENDENCY/SUBSTANCEABUSE PROGRAM, SOME INFORMATION MAY BE OMITTED. This clinical summary was aggregated from multiple sources. Caution should be exercised in using it in the provision of clinical care. This summary normalizes information from multiple sources, and as a consequence, information in this document may materially change the coding, format and clinical context of patient data. In addition, data may be omitted in some cases. CLINICAL DECISIONS SHOULD BE BASED ON THE PRIMARY CLINICAL RECORDS. [employer] provides no warranty or guarantee of the accuracy or completeness of information in this document.
--- NOTE | 2025-04-07 01:00 | CT_ITS ---
PROCEDURE: BRAIN/HEAD WITHOUT CONTRAST 04/07/2025 REASON FOR EXAM: DISORIENTATION, DIZZINESS TECHNIQUE: Procedure Code: CTBR Modality: CT Procedure: BRAIN/HEAD WITHOUT CONTRAST Coronal and Sagittal reconstruction series were provided. One or more dose reduction techniques were used (e.g., Automated exposure control, adjustment of the mA and/or kV according to patient size, use of iterative reconstruction technique. RADIATION DOSE SUMMARY: CTDI Vol 44.99 mGy DLP :846.73 mGycm COMPARISON: none FINDINGS: Relatively accentuated bilateral cerebral periventricular deep white matter hypodensities suggesting hypoperfusion. Davies-white matter differentiation is maintained. Normal CT appearance of the posterior fossa structures. No intracerebral or extra axial hemorrhage. No definite calvarial fractures. Unremarkable ventricular system. Prominent cortical sulci and extra-axial CSF spaces No midline shifts or deformity. The osseous structures in the skull base are unremarkable. The scanned paranasal sinuses are unremarkable. Vascular atheromatous calcifications. CT/Brain/Head without Contrast IMPRESSION: No intracerebral or extra axial hemorrhage. No acute cerebrovascular insult. If clinical symptoms persist, further evaluati on with MRI may be considered as clinically warranted. Bilateral cerebral mild microvascular ischemic changes. Reading Location: [id number]
--- NOTE | 2025-04-07 01:00 | CT_ITS ---
PROCEDURE: CTA HEAD AND NECK W/ CONTRAST 04/07/2025 REASON FOR EXAM: VERTIGO, APHASIA TECHNIQUE: Procedure Code: CTCTA.HDNCK Modality: CT Procedure: CTA HEAD AND NECK W/ CONTRAST Multiplanar Sagittal and Coronal images were obtained. CONTRAST: optiray VOLUME: 125 mL One or more dose reduction techniques were used (e.g., Automated exposure control, adjustment of the mA and/or kV according to patient size, use of iterative reconstruction technique). RADIATION DOSE SUMMARY: CTDI Vol 61.79 mGy DLP :1199.7 mGycm COMPARISON: none FINDINGS: Patent aortic arch showing irregular intimal thickening with calcified atheromatous plaques. It gives rise to patent major vascular trunks showing non significant atherosclerotic changes. Patent common carotid arteries mild irregular intimal thickening. No severe stenosis. Patent carotid bulbs showing fibrofatty atheromatous plaques with no severe stenosis. Patent external carotid arteries. Patent cervical, petrous, cavernous and supraclinoid segments of the internal carotid arteries showing irregular intimal thickening with non significant calcified atheromatous plaques of their cavernous segments. No severe stenotic lesions, aneurysmal dilatation or dissecting intimal flaps. Patent anterior and middle cerebral arteries. No severe stenotic lesions, aneurysmal dilatation or dissecting intimal flaps. Patent vertebral arteries. No tight stenotic lesions, aneurysmal dilatation or dissecting intimal flaps. Patent basilar artery. No tight stenotic lesions, aneurysmal dilatation or dissecting intimal flaps. Relatively attenuated right posterior cerebral artery showing multifocal mild and moderately stenotic plaques. Patent left posterior cerebral artery. Cervical spondylosis. CT/CTA Head AND Neck W/ Contrast IMPRESSION: Relatively attenuated right posterior cerebral artery showing multifocal mild a nd moderately stenotic plaques. Patent rest of the intra and extra-cranial carotid and vertebral arteries as de tailed. No occlusion, aneurysmal dilatation or dissecting intimal flaps. Reading Location[facility]
[2025-04-07 01:06] LABS: AST(SGOT) 26 U/L (<=31); Alanine Aminotransfer ALT/SGPT 9 U/L (<=34); Albumin, Serum 3.9 g/dL (3.4-4.8); Alkaline Phosphatase 88 U/L (35-104); Anion Gap 10 (5-15); BUN 9 mg/dL (4-19); BUN/Creat Ratio 10.1 RATIO (10-20); Calcium,Total 8.8 mg/dL (7.6-11.0); Carbon Dioxide 26.3 mmol/L (21.0-32.0); Chloride 105 mmol/L (98-108); Estimated Creatinine Clearance 57.91 ml/min (50-250); Globulin 3.1 g/dL (2.2-4.2); Glucose 124 mg/dL (70-99); Potassium 3.8 mmol/L (3.3-5.1)
[2025-04-07 01:30] LABS: Mucous, Urine 0 SEEN /hpf (<or=2+); Red Blood Cells-Urine 0 SEEN /hpf (0-5)
[2025-04-07 01:31] LABS: Color, Urine Yellow (Yellow); Glucose, Dipstick Normal (Normal); Ketone-Dipstick Negative (Negative); Leukocyte Esterase-Dipstick Negative /ul (Negative); Nitrite-Dipstick Negative (Negative); Occult Blood-Urine Negative /ul (Negative); Protein-Dipstick Negative (Negative); Specific Gravity, Urine 1.010 (1.002-1.030); Urine Bilirubin Dipstick Negative (Negative)
[2025-04-07 01:37] LABS: Squamous Epithelial Cells - UA 0-5 SEEN /hpf (5-10)
--- NOTE | 2025-04-07 02:49 | HP.PCM.HOS_ITS ---
[facility] - General General Date of Admission: 04/07/25 Date of Service: 04/07/25 Chief Complaint: Dizziness and Confusion. HPI Narrative KIKI SHAW, is a 75 F with a past medical history of accelerated hypertension; currently not on treatment, obesity (class II); with BMI of 35.1 this admission, history of recently diagnosed unprovoked recurrent LLE DVT; on apixaban, history of Right breast cancer; s/p lumpectomy and currently in remission, history of endometriosis; s/p hysterectomy, history of adult-onset Still's disease, history of recurrent angioedema of the tongue; treated conservatively with methylprednisolone, history of bowel obstruction; s/p bowel resection with colostomy reversal, depression with anxiety; on escitalopram and alprazolam TID prn, history of bilateral renal calculi and OA who presents to [facility] ER complaining of dizziness and confusion. Ms. Shaw is a relatively poor historian at this time so information was gathered from chart, medical staff and computer. According to the records she noted the sudden-onset of dizziness and confusion yesterday morning at ~9:30 AM just after taking apixaban. She describes the dizziness as a spinning sensation which is continuous in addition to persisting even when she is lying down and is made worse with head movement. She states it caused her to fall to her knees when she attempted to get up from the toilet. She denies associated visual disturbance, numbness, weakness, tinnitus, otalgia, auditory disturbance, headache, chest pain, palpitations, heart racing, abdominal pain, nausea, vomiting, diarrhea, constipation, abdominal pain, dysuria, hematuria, rash or similar previous episodes. Her grandson informed the ER physician she took BASA, escitalopram and alprazolam in the evening just prior to coming in. In the ER she was suspected to have a CVA; with mild Expressive Aphasia and Vertigo with Uncontrolled Hypertension of 215/103 mmHg noted shortly after admission with a corresponding CT scan of the brain without contrast that revealed no acute cerebrovascular insult or bleeding with mild bilateral cerebral microvascular ischemic changes - with MRI recommended f ollowed by CT scan of the head and neck with IV contrast that showed relatively attenuated Right posterior cerebral artery showing multifocal mild moderately stenotic plaques with no occlusion, aneurysmal dilatation or dissecting intimal flaps. The ER physician then spoke with the [facility] teleneurologist who recommended holding her apixaban in addition to her being admitted here for further CVA workup which was done. She was then admitted to the PCU for ongoing care for a stay that is expected to extend beyond 2 midnights. [facility] Medical History Vaginal candidiasis Acute bronchitis, unspecified Kidney stones Pulmonary embolism Adult-onset Still's disease Depression Anxiety Breast cancer Endometriosis Bowel obstruction Home Medications ?Medication ?Instructions ?Recorded ?Last Taken ?Type alprazolam 0.25 mg tablet 0.25 mg PO TID PRN PRN Insom desmond 08/16/14 Unknown History escitalopram oxalate 10 mg tablet 10 mg PO DAILY 08/16 Unknown History apixaban 5 mg (74 tabs) tablets in See Rx Instructions .Route 04/04/25 Unknown Rx a dose pack (Eliquebridge DVT-PE Treat .COMPLEX #74 tabs 30D Start) Allergy/AdvReac Type Severity Reaction Status Date / Time ampicillin Allergy Rash Verified 04/07/25 00:01 prednisone AdvReac SHAKINESS Verified 04/07/25 00:01 Surgical History H/O lumpectomy History of bowel resection History of colostomy reversal H/O: hysterectomy Social History household members: family housing: house Smoking Status: Never smoker ROS ROS Narrative Review of Systems was limited due to patient's confusion so caveat applies: Constitutional: Patient denies fever or chills. Eyes: Patient denies visual disturbance or discharge from eyes. ENT: Patient admits to vertigo as per HPI but she denies runny nose, sore throat or ear pain. Resp: Patient denies SOB or cough. CV: Patient denies chest pain, palpitations or heart racing. GI: Patient denies abdominal pain, nausea, vomiting, diarrhea or constipation. : Patient denies dysuria or hematuria. MSK: Patient denies arthralgias or myalgias. Skin: Patient denies rash, abscess, wounds or jaundice. Psych: Patient is confused with a history of depression and anxiety that are controlled with current medications. Neuro: Patient admits to mild expressive aphasia and vertigo but she denies headache or paresthesias. Allergy: Patient denies lip swelling, tongue swelling or urticaria. Hematology: Patient admits to easy bleeding and bruisability on apixaban after recently diagnosed recurrent LLE DVT. Endocrinology: Patient denies polyuria, polydipsia, polyphagia or heat/cold intolerance. 14 point ROS otherwise negative except for positives noted above in HPI. Vital Signs Vital Signs Vital Signs: 04/07/25 00:00 04/07/25 00:18 04/07/25 00:30 Temperature 98.3 F Temperature Source Oral Pulse Rate 68 62 61 Respiratory Rate 18 13 16 Blood Pressure 183/84 H Blood Pressure Mean 117 Pulse Ox 100 100 99 Oxygen Delivery Method Room Air 04/07/25 00:45 04/07/25 01:00 04/07/25 01:19 Temperature Temperature Source Pulse Rate 65 66 94 Respiratory Rate 15 13 21 H Blood Pressure Blood Pressure Mean Pulse Ox 100 99 Oxygen Delivery Method 04/07/25 02:00 04/07/25 02:28 04/07/25 02:29 Temperature Temperature Source Pulse Rate 69 66 Respiratory Rate 16 14 Blood Pressure 211/99 H 215/103 H Blood Pressure Mean 136 140 Pulse Ox 100 100 Oxygen Delivery Method Room Air Room Air Room Air 04/07/25 02:42 Temperature Temperature Source Pulse Rate 65 Respiratory Rate 15 Blood Pressure 214/97 H Blood Pressure Mean 136 Pulse Ox 100 Oxygen Delivery Method Weight Weight: 192 lb Body Mass Index (BMI) 35.1 Physical Exam Const alert, oriented x3 and no apparent distress Constitutional Narrative: Obese and confused elderly female who is nontoxic in appearance. General Appearance: cooperative Orientation / Consciousness: confused HEENT normocephalic, head/scalp atraumatic, hearing grossly normal bilaterally and moist oral mucous membranes Eyes PERRL, EOMs intact bilaterally and conjunctivae normal Neck no lymphadenopathy, supple and no JVD Resp normal respiratory effort, no retractions, no use of accessory muscles and clear to auscultation bilaterally Cardio regular rate and regular rhythm GI normal to inspection, nondistended, normoactive bowel sounds, soft to palpation, non-tender and non-distended GI Narrative: Obese. Extremity normal to inspection, full ROM and no clubbing, cyanosis or edema Skin Skin Narrative: Patient has no evidence of rash, wounds or abscess. Neuro oriented x3, CN's II-XII intact bilaterally and moves all extremities Neuro Narrative: Mild expressive aphasia with persistent vertigo. No dysarthria or dysmetria with GCS of 15. Sensorium / Orientation: awake, alert, oriented to person, oriented to place and oriented to time Psych affect normal Results Medical Records Data Attestation: I reviewed the patient's medical records Lab / Micro Data Attestation: I reviewed the patient's lab results. 04/07/25 00:15 04/07/25 00:15 Labs: Laboratory Results - last 24 hr 04/07/25 00:15: WBC 8.5, RBC 4.44, Hgb 13.8, Hct 40.6, MCV 91.4, MCH 31.1, MCHC 34.0, RDW Std Deviation 44.1 H, RDW Coeff of Funmi 13.1, Plt Count 273, MPV 11.9, Immature Gran % (Auto) 0.200, Neut % (Auto) 59.7, Lymph % (Auto) 25.2, [place] % (Auto) 6.5, Eos % (Auto) 7.8 H, Baso % (Auto) 0.6, Absolute Neuts (auto) 5.1, Absolute Lymphs (auto) 2.13, Nucleated RBC % 0, Sodium 142, Potassium 3.8, Chloride 105, Carbon Dioxide 26.3, Anion Gap 10, BUN 9, Creatinine 0.86, Estim Creat Clear Calc 57.91, Est GFR (MDRD) Non-Af 70, BUN/Creatinine Ratio 10.1, G lucose 124 H, Calcium 8.8, Total Bilirubin 0.31, AST 26, ALT 9, Alkaline Phosphatase 88, Total Protein 6.9, Albumin 3.9, Globulin 3.1, Albumin/Globulin Ratio 1.3 04/07/25 01:20: Urine Color Yellow, Urine Clarity Clear, Urine pH 7.0, Ur Specific [place] 1.010, Urine Protein Negative, Urine Glucose (UA) Normal, Urine Ketones Negative, Urine Occult Blood Negative, Urine Nitrite Negative, Urine Bilirubin Negative, Urine Urobilinogen Normal, Ur Leukocyte Esterase Negative, Urine RBC 0 SEEN, Urine WBC 0 SEEN, Ur Squamous Epith Cells 0-5 SEEN, Urine Bacteria RARE, Urine Mucus 0 SEEN Rhythm Strip Rhythm Strip: Sinus Rhythm Rate: 65 Ectopy: None Imaging Radiology Impression Brain CT 04/07/25 01:00 IMPRESSION: No intracerebral or extra axial hemorrhage. No acute cerebrovascular insult. If clinical symptoms persist, further evaluation with MRI may be considered as clinically warranted. Bilateral cerebral mild microvascular ischemic changes. Reading Location: [place] [address] Head/Neck CTA 04/07/25 01:00 IMPRESSION: Relatively attenuated right posterior cerebral artery showing multifocal mild and moderately stenotic plaques. Patent rest of the intra and extra-cranial carotid and vertebral arteries as detailed. No occlusion, aneurysmal dilatation or dissecting intimal flaps. Reading Location: [place] [address] Assessment & Plan Assessment/Plan (1) Stroke due to stenosis of right posterior cerebral artery: (2) Expressive aphasia: (3) Vertigo, central: (4) Confusion: (5) Acute deep vein thrombosis (DVT) of left lower extremity: QUALIFIERS: Affected thrombotic vein of extremity: unspecified vein of extremity Qualified Code(s): I82.402 - Acute embolism and thrombosis of unspecified deep veins of left lower extremity (6) Uncontrolled hypertension: (7) Obesity (BMI 30-39.9): (8) Depression with anxiety: PLAN: Plan 1. CVA; with mild Expressive Aphasia, Confusion and Vertigo with CT scan of the head and neck with IV contrast that showed relatively attenuated Right posterior cerebral artery showing multifocal mild moderately stenotic plaques with no occlusion, aneurysmal dilatation or dissecting intimal flaps - Admit to PCU for formal CVA workup. Check MRI of the brain to confirm suspicion of CVA. Check echocardiogram to evaluate LVEF. Check carotid Doppler with abnormal CT findings. Continue BASA and add statin. Give meclizine prn for vertigo. Check TSH, B12, Folate, HgbA1c, Lipid Profile, UDS and JACOB. Finally, [facility] teleneurology consultation is greatly appreciated. 2. Uncontrolled Hypertension of 215/103 mmHg noted shortly after admission in the setting of previously diagnosed accelerate hypertension complicating #1 - We will allow for 'permissive hypertension' until CVA definitively ruled out on MRI. 3. History of recently diagnosed unprovoked recurrent LLE DVT; on apixaban compounding #1 & #2 - Hold apixaban as per neurologist's recommendations. 4. Obesity (class II); with BMI of 35.1 this admission adding to the burden of disease outlined from #1 - #3 - Weight loss will be recommended. Check TSH. This complicates her case and may hamper recovery. 5. Depression with anxiety; on escitalopram and alprazolam TID prn adding to the medical complexity of #1 - #4 - Maintain escitalopram but hold alprazolam in an effort to allow sensorium to clear. 6. History of Right breast cancer; s/p lumpectomy and currently in remission - Noted. 7. History of endometriosis; s/p hysterectomy - Noted. 8. History of adult-onset Still's disease - Stable with no evidence of flare at this time. 9. History of recurrent angioedema of the tongue; treated conservatively with methylprednisolone - Noted with no present evidence of recurrence. 10. History of bowel obstruction; s/p bowel resection with colostomy reversal - Noted. 11. History of bilateral renal calculi - Noted. 12. OA - Give acetaminophen SD prn for pain or fever. 13. DVT prophylaxis - Patient has recently diagnosed LLE DVT but her apixaban has been held as per neurologist's recommendations. Restart DOAC when/if okay with neurology. Total time: Approximately (but not less than) 75 minutes. Charges/Coding Visit Charges Inpatient E&M: 99570 Init Hosp L3
--- NOTE | 2025-04-07 03:46 | ECHOCS_ITS ---
Reason For Study Reason For Study: TIA/CVA Procedure This was a 2D Doppler, Color Flow transthoracic echocardiogram. Contrast injection was performed. Exam performed portable in patient room. Left Ventricle Normal LV size. Mild assymetric septal hypertrophy. The left ventricular ejection fraction is 65 %. Valsalva LV gradient 33 mmHg. Stage 1 diastolic dysfunction. Right Ventricle Normal RV size. Normal systolic function. Atria Normal left atrium. Normal right atrium. No doppler evidence for ASD. Mitral Valve The mitral valve is structurally normal. No prolapse or stenosis seen. Trivial mitral valve insufficiency. Tricuspid Valve Normal tricuspid valve. Unable to estimate RV systolic pressure due to insufficient tricuspid regurgitant envelope. Aortic Valve Trisinus/trileaflet aortic valve. Mild focal aortic valve calcification. There is no aortic stenosis. Pulmonic Valve The pulmonic valve is not well visualized. Great Vessels Normal sized aortic root. Pericardium/Pleural No pericardial effusion. Medication Diluted definity 1ml given slow IV push to enhance endocardial definition. MMode/2D Measurements & Calculations LVIDd: 3.7 cm IVSd: 1.1 cm Ao root diam: 3.1 cm LVIDs: 2.3 cm LVPWd: 0.96 cm RVDd: 2.9 cm FS: 37.7 % LAV(MOD-bp): 46.7 ml LVAd ap4: 29.4 cm2 SV(MOD-sp4): 59.1 ml LAV(MOD-bp) Indexed: 24.9 ml/m2 LVLd ap4: 7.9 cm SI(MOD-sp4): 31.5 ml/m2 LAV(MOD-sp2): 45.8 ml EDV(MOD-sp4): 89.7 ml LAV(MOD-sp4): 44.9 ml EDV(sp4-el): 93.4 ml LVAs ap4: 15.0 cm2 LVLs ap4: 6.1 cm ESV(MOD-sp4): 30.6 ml ESV(sp4-el): 31.6 ml EF(MOD-sp4): 65.9 % EF(sp4-el): 66.2 % SV(sp4-el): 61.8 ml LA A4 area: 17.2 cm2 LA dimension(2D): 3.4 cm RA A4 area: 11.3 cm2 TAPSE: 2.1 cm Time Measurements MV dec time: 0.26 sec Doppler Measurements & Calculations MV E max ga: 71.8 cm/sec Lat Peak E' Ga: 7.0 cm/sec Med Peak E' Ga: 7.0 cm/sec MV A max ga: 108.7 cm/sec E/E' lat: 10.3 E/E' med: 10.3 MV E/A: 0.66 MV V2 max: 128.6 cm/sec MV P1/2t max ga: 88.9 cm/sec Ao V2 max: 118.0 cm/sec MV max P.6 mmHg MV P1/2t: 88.7 msec Ao max P.6 mmHg MV V2 mean: 67.6 cm/sec MV dec slope: 293.6 cm/sec2 MV mean P.2 mmHg MVA(P1/2t): 2.5 cm2 MV V2 VTI: 33.5 cm LV V1 max: 103.3 cm/sec PA V2 max: 87.3 cm/sec LV V1 max P.3 mmHg PA V2 mean: 61.9 cm/sec LV V1 mean P.2 mmHg LV V1 mean: 69.2 cm/sec LV V1 VTI: 22.5 cm ECHO/Echo Complete W/ Contrast Interpretation Summary The left ventricular ejection fraction is 65 %. Mild assymetric septal hypertrophy. Stage 1 diastolic dysfunction. Mild focal aortic valve calcification. Contrast injection was performed. Ordering Physician: Milo Jensen Performed By: Vasiliy Boudreaux RCS
--- NOTE | 2025-04-07 03:46 | CDU_ITS ---
Reason For Study Reason For Study: Evaluate for Stenosis Rt. Velocities/BP Lt. Velocities/BP Prox CCA 83/14 cm/sec. Prox CCA 90/10 cm/sec. Mid CCA 71/14 cm/sec. Mid CCA 92/16 cm/sec. Dist CCA 67/16 cm/sec. Dist CCA 82/15 cm/sec. Prox ICA 55/15 cm/sec. Prox ICA 78/16 cm/sec. Mid ICA 71/25 cm/sec. Mid ICA 64/17 cm/sec. Dist ICA 70/24 cm/sec. Dist ICA 65/20 cm/sec. Rt. ICA/CCA = 1.0. Lt. ICA/CCA = 0.8. Prox ECA 138/12 cm/sec. Prox ECA 108/8 cm/sec. Rt. Vert. 40/10 cm/sec. Lt. Vert. 56/12 cm/sec. Right Extracranial There is intimal thickening but no significant atherosclerotic plaque noted in the right common carotid artery. There is intimal thickening but no significant atherosclerotic plaque noted in the right internal carotid artery. There is intimal thickening but no significant atherosclerotic plaque noted in the right external carotid artery. Antegrade flow is noted in the right vertebral artery. Left Extracranial There is intimal thickening but no significant atherosclerotic plaque noted in the left common carotid artery. There is heterogeneous, irregular atherosclerotic plaque noted in the left internal carotid artery. There is intimal thickening but no significant atherosclerotic plaque noted in the left external carotid artery. Antegrade flow is noted in the left vertebral artery. Procedure Carotid Duplex [id number]. This is a Carotid Duplex examination using B-mode, color flow and specral Doppler. Exam performed portable in patient room. VL/Carotid Duplex Ultrasound Interpretation Summary No significant atherosclerotic plaque or stenosis noted in the right internal c arotid artery. Mild (<50%) stenosis left extracranial internal carotid. Flow within the vertebral arteries is antegrade bilaterally. Ordering Physician: Milo Celaya Referring Physician: Nata Rea Performed By: Naheed Gomes, RDCS, RVT
--- OUTSIDE RECORDS SUMMARY | 2025-04-07 03:54 | XMS RPT_ITS | CCD ---
Author Organization [facility] Care Team Providers Care Perinatology Physician Name Role Phone Jennifer Santos MD Primary Care Provider Dr. Jennifer Santos Primary Care Provider Dr. Bran Alston Attending Provider Dr. 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, Kelle Unavailable JENNIFER SANTOS Primary Care Unavailable [...] Translations: [ampicillin] Drug Allergy 6 Rash, Itching [facility] (20 sources) apixaban; Translations: [APIXABAN] Drug Allergy 2 Swelling, Anaphylaxis [facility] Work Phone: (20 sources) rivaroxaban; Translations: [RIVAROXABAN] Drug Allergy 2 Swelling [facility] Work Phone: (5 sources) predniSONE; Translations: [prednisone] Drug Allergy 3 [facility] (1 source) Ampicillin Drug Allergy 5 [facility] (1 source) predniSONE Drug Allergy 5 [facility] Medications Current Medications Medication Drug Class(es) Dates Sig (Normalized) Sig (Original) ALPRAZolam 0.25 mg oral tablet (20 sources) Benzodiazepine Start: 09-27-2015 take 1 tablet by mouth once daily ALPRAZolam (XANAX) 0.25 mg tablet Take 1 tablet by mouth once daily. 09/27/2015 Active Start: 08-16-2014 [facility] as needed Alprazolam 0.25 MG tablet Active 0.25 mg PO 3 TIMES DAILY NEEDED as needed for Insomnia August 16, 2014 1:00am Comment on above: Take 1 tablet by [facility] once daily. aspirin 81 mg [...] on above: Take 1 capsule by mo [facility] twice daily. doxycycline hyclate 100 mg oral [...] Comment on above: Take 1 tablet by [facility] once daily. 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, [address] Calcium [Mass/Vol] 8.9 mg/dL Normal 7.6-11.0 [facility] Comment on above: Performed By: #### L 100.0100, L500.2500 #### [facility] [address] [place], [address] Chloride [Moles/Vol] 109 mmol/L High 98-108 [facility] Comment on above: Performed By: #### L 100.0100, L500.2500 #### [facility] [address] [place], [address] CO2 [Moles/Vol] 24.5 mmol/L Normal 21.0-32.0 [facility] Comment on above: Performed By: #### L 100.0100, L500.2500 #### [facility] [address] [place], [address] Creatinine [Mass/Vol] 0.91 mg/dL Normal 0.70-1.20 [facility] Comment on above: Performed By: #### L 100.0100, L500.2500 #### [facility] [address] [place], [address] ECRCL 56.35 ml/min Normal 50-250 [facility] Comment on above: Performed By: #### L 100.0100, L500.2500 #### [facility] [address] [place], [address] GAP 9 Normal 5-15 [facility] Comment on above: Performed By: #### L 100.0100, L500.2500 #### [facility] [address] [place], [address] GFR/1.73 sq M.predicted among non-blacks MDRD (S/P/Bld) [Vol rate/Area] 66 mL/min/{1.73_m2} Normal >60 [facility] Comment on above: Result Comment: mL/m in/1.73m2 CKD-EPI Creatinine Equation (2020) Performed By: #### L 100.0100, L500.2500 #### [facility] [address] [place], [address] Glucose [Mass/Vol] 99 mg/dL Normal 70-99 [facility] Comment on above: Performed By: #### L 100.0100, L500.2500 #### [facility] [address] [place], [address] Potassium [Moles/Vol] 3.8 mmol/L Normal 3.3-5.1 [facility] Comment on above: Performed By: #### L 100.0100, L500.2500 #### [facility] [address] [place], [address] Sodium [Moles/Vol] 143 mmol/L Normal 133-145 [facility] Comment on above: Performed By: #### L 100.0100, L500.2500 #### [facility] [address] [place], [address] Urea nitrogen [Mass/Vol] 7 mg/dL Normal 4-19 [facility] Comment on above: Performed By: #### L 100.0100, L500.2500 #### [facility] [address] [place], [address] CBC W/Diff, Automatedon 10-2 Absolute Lymph 1.18 X10 3/uL Normal 0.83-4.51 [facility] Comment on above: Performed By: #### L 100.0100, L500.2500 #### [facility] [address] [place], [address] Absolute Neut 5.8 X10 3/uL Normal 2.0-7.7 [facility] Comment on above: Performed By: #### L 100.0100, L500.2500 #### [facility] [address] [place], [address] Basophils/100 WBC (Bld) 0.6 % Normal 0-1 [facility] Comment on above: Performed By: #### L 100.0100, L500.2500 #### [facility] [address] [place], [address] Eosinophils/100 WBC (Bld) 6.3 % High 0-5 [facility] Comment on above: Performed By: #### L 100.0100, L500.2500 #### [facility] [address] [place], [address] Erythrocyte distribution width (RBC) [Ratio] 13.1 % Normal 11.6-14.6 [facility] Comment on above: Performed By: #### L 100.0100, L500.2500 #### [facility] [address] [place], [address] Hematocrit (Bld) [Volume fraction] 39.9 % Normal 37-47 [facility] Comment on above: Performed By: #### L 100.0100, L500.2500 #### [facility] [address] [place], [address] Hemoglobin (Bld) [Mass/Vol] 13.6 g/dL Normal 12.0-15.0 [facility] Comment on above: Performed By: #### L 100.0100, L500.2500 #### [facility] [address] [place], [address] IG% 0.500 Normal 0.0-0.9 [facility] Comment on above: Result Comment: IG% - Immature Granulocytes (promyelocytes, myelocytes and metamyelocytes) > 1% indicates that a LEFT SHIFT is Present. Performed By: #### L 100.0100, L500.2500 #### [facility] [address] [place], [address] Lymphocytes/100 WBC (Bld) 14.8 % Low 19-41 [facility] Comment on above: Performed By: #### L 100.0100, L500.2500 #### [facility] [address] [place], [address] MCH (RBC) [Entitic mass] 31.6 pg Normal 27.0-32.0 [facility] Comment on above: Performed By: #### L 100.0100, L500.2500 #### [facility] [address] [place], [address] MCHC (RBC) [Mass/Vol] 34.1 g/dL Normal 32-36 [facility] Comment on above: Performed By: #### L 100.0100, L500.2500 #### [facility] [address] [place], [address] MCV (RBC) [Entitic vol] 92.8 fL Normal 81-99 [facility] Comment on above: Performed By: #### L 100.0100, L500.2500 #### [facility] [address] [place], [address] Monocytes/100 WBC (Bld) 5.3 % Normal 0-10 [facility] Comment on above: Performed By: #### L 100.0100, L500.2500 #### [facility] [address] [place], [address] Neutrophils/100 WBC (Bld) 72.5 % High 47-70 [facility] Comment on above: Performed By: #### L 100.0100, L500.2500 #### [facility] [address] [place], [address] Nucleated RBC (Bld) [#/Vol] 0 10*3/uL Normal 0-5 [facility] Comment on above: Performed By: #### L 100.0100, L500.2500 #### [facility] [address] [place], [address] Platelet mean volume (Bld) [Entitic vol] 11.9 fL Normal 6.2-12.0 [facility] Comment on above: Performed By: #### L 100.0100, L500.2500 #### [facility] [address] [place], [address] Platelets (Bld) [#/Vol] 230 10*3/uL Normal 150-450 [facility] Comment on above: Performed By: #### L 100.0100, L500.2500 #### [facility] [address] [place], [address] RBC (Bld) [#/Vol] 4.30 10*6/uL Normal 4.2-5.4 [facility] Comment on above: Performed By: #### L 100.0100, L500.2500 #### [facility] [address], [address] RDW SD 44.3 fl High 35.1-43.9 [facility] Comment on above: Performed By: #### L 100.0100, L500.2500 #### [facility] [address] [place], [address] WBC (Bld) [#/Vol] 8.0 10*3/uL Normal 4.4-11.0 [facility] Comment on above: Performed By: #### L 100.0100, L500.2500 #### [facility] [address] [place], [address] Emergency Department Summary on 04-04-2025 Emergency Department Summary [facility] Medical Records Department [address] [place] [address] Emergency Department Summary 04/04/25 MR#: [id number] Acct: [id number] Name: ILENE SHAW Rep #: [id number] : 1950 75 From: Teodoro Daley MD [...] since t (more content not included)... Normal [facility] Venous Duplex US, Unilateral on 04-04-2025 Venous Duplex US, Unilateral [facility] [address] [place] [address] Venous Duplex US, Unilateral 04/04/25 1109 MR#: [id number] Acct: [id number] Name: ILENE SHAW Rep #: [id number] : 1950 75 From: Bran Alston MD [...] Date Dictated: 04/04/25 1109 Date Transcribed: 04/04/25 6815 Quill Buncher And Sorter: Signed Normal [facility] Visit Reporton 0 01-03-2025 Urgent Care Visit Report [facility] [address], [address] [place] [address] OFFICE VISIT Date of Service: 01/03/25 MR#: [id number] Acct: [id number] Name: ILENE SHAW Rep #: [id number] : 1950 Provider: RA Currie Age/Sex: 74/F Location: [facility] Status: Signed Intake Vital Signs 08/28/23 16:43 01/03/25 15:04 Height 5 ft 2 in 5 ft 2 in Weight: 195 lb BMI 35.6 BP 130/84 H Blood Pressure Location Lt brachial Position Sitting Respiration 16 Pulse 94 Pulse Source Monitor Temp 98.2 F Temp Source Oral Pulse Oximetry (%) 97 Oxygen Delivery Method room air Intake Visit Reasons: Cough Chief Complaint: Cough Physician'S Assistant Required: No Accompanied by: Self Is patient [...] Has tried otc medications for cold symptoms. [facility] Medical History (Updated 01/03/25 @ 15:18 by [...] No close contacts with similar complaints. No ifbz-nou-bgehjla products taken to assist. Additionally, patient notes having a history of chronic vaginal pruritus and concern for vaginal candidiasis; she notes ggxs-pmu-rprepef Monistat cream helping some but may not resolve her symptoms. No other associated symptoms and no alleviating/aggravati ng factors. ROS Const Constitutional: No other (As above) Exam Const General: cooperative, healthy appearing and no acute distress Orientation: alert and awake [facility] Head: normal to inspection Ears: hearing grossly [...] to 5 (more content not included)... Normal [facility] 12-20-2024 CNCO Letter Text Normal [facility] BARBARA SCREENING W TOMOon 09-22 BARBARA SCREENING W EL * * *Final Report* * * DATE OF EXAM: Sep 22 2024 9:56AM [facility] 0582 - BARBARA SCREENING W EL / PROCEDURE REASON: Encounter for screening mammogram for breast cancer * * * * Physician Interpretation * * * * RESULT: [facility] [address] [place] [address] #[id number] - BARBARA SCREENING W EL HISTORY: 74 [...] Mita Finney M.D. Electronically signed on: 09/23/2024 Quill Buncher And Sorter: SÁNCHEZ Transcribe Date/Time: Sep 22 2024 9:45A Dictated by: MITA FINNEY MD This examination was interpreted and the report reviewed and electronically signed by: MITA FINNEY MD on Sep 23 2024 7:47PM EST [id number] Normal [facility] CNPNon 09-14-2024 CNPN Telephone (INTMWS) ILENE SHAW ([id number]) 1950 F Date Time Provider Department 09/14/24 [...] for screening mammogram for breast cancer [Z12.31] Order(s):[facility] SCREENING W EL [[id number]] Order #: [id number] FUTURE Prescriptions as of 09/14/2024 - aspirin [...] Status:Closed by KELLE PETER on 09/14/24 Aida [facility] Kelsie 05-11-2024 LACYN Telephone (UCWSTR) ILENE SHAW ([id number]) 1950 F Date Time Provider Department 05/11/24 TORREY DAWSON [facility] During your visit today, we recorded the [...] Status:Closed by KASSIDY DIAL on 05/11/24 Normal [facility] BACTERIAL VAGINOSIS NAATon 1 07-10-2023 Lactobacillus crispatus+gasseri+j ensenii + Gardnerella vaginalis + Atopobium vaginae rRNA RADHA+probe Ql (Vag fld) Not detected Normal Not detected [facility] Comment on above: Order Comment: Speci men Type: SWAB Ordering Facility: [facility] Address: [address] [place] [address] Performed By: #### B VAMP, 11068-8 #### [facility] CLIA [id number] [address] [place] [address] [place] Bacteria Ur Culton [...] , Intermediate >32 , Resistant >64 Abnormal [facility] Comment on above: Performed By: #### Arlene VAMP, 17125-4 #### [facility] CLIA [id number] [address] [place] [address] [place] C. trachomatis+N. gonorrhoea e DNA RADHA+probe Ql (Unsp spec)on 05-10-2024 C. trachomatis rRNA RADHA+probe Ql (Unsp spec) Not detected Normal Not detected [facility] Comment on above: Order Comment: Speci men Type: SWAB Ordering Facility: [facility] Address: [address] [place] [address] Performed By: #### Arlene VAMP, [id number] #### [facility] CLIA [id number] [address] [place] [address] [place] N. gonorrhoeae rRNA RADHA+probe Ql (Unsp spec) Not detected Normal Not detected [facility] Comment on above: Order Comment: Speci men Type: SWAB Ordering Facility: [facility] Address: [address] [place] [address] Performed By: #### Arlene VAMP, 29400-5 #### [facility] CLIA [id number] [address] [place] [address] [place] ALBA/TRICHOMONAS NAATon 1 07-10-2023 C. glabrata RNA RADHA+probe Ql (Vag fld) Not detected Normal Not detected [facility] Comment on above: Order Comment: Speci men Type: SWAB Ordering Facility: [facility] Address: [address] [place] [address] Performed By: #### C VTV #### [facility] CLIA [id number] [address] [place] [address] [place] Alba sp DNA RADHA+probe Ql (Vag fld) Detected Abnormal Not detected [facility] Comment on above: Order Comment: Speci men Type: SWAB Ordering Facility: [facility] Address: [address] [place] [address] Result Comment: The Alba species group target includes C. albicans, C. tropicalis, C. parapsilosis, and C. dubliniensis. Performed By: #### C VTV #### [facility] CLIA [id number] [address] [place] [address] [place] T. vaginalis DNA RADHA+probe Ql (Unsp spec) Not detected Normal Not detected [facility] Comment on above: Order Comment: Speci men Type: SWAB Ordering Facility: [facility] Address: [address] [place] [address] Performed By: #### C VTV #### [facility] CLIA [id number] [address] [place] [address] [place] CNOVon 05-10-2024 CNOV Office Visit (UCWSTR ) ILENE SHAW ([id number]) 1950 F Date Time Provider Department 05/10/24 12:30 PM TORREY DAWSON [facility] During your visit today, we recorded the following information about you: Temperature Pulse Respiration Blood pressure 98.1 degrees 75/minute 20/minute 136/78 Weight 87 kg Torrey Dawson, JIGNESH 05/10/2024 2:21 PM Signed This note was created using [employer]. Madison Cisseria Sangeeta Valeria is a 74 [...] Exam Vitals reviewed. Exam conducted with a musical string maker present (Kassidy ARTHUR). Constitutional: Appearance: Normal appearance. [...] Assessed Reaso (more content not included)... Normal [facility] UA DIP, URINE (POC)on 2023 BILIRUBIN UA (POCT) Negative Negative [facility] CLARITY UA (POCT) Cloudy [facility] COLOR UA (POCT) Dark yellow [facility] GLUCOSE UA (POCT) Negative Negative mg/dL [facility] Hemoglobin Ql (U) Large Abnormal Negative [facility] Interpretation and review of laboratory results Abnormal [facility] KETONE UA (POCT) Negative Negative mg/dL [facility] LEUKOC[facility]TES [facility]A (POCT) Trace Abnormal Negative [facility] NITRITE UA (POCT) Positive Abnormal Negative [facility] PH UA (POCT) 5.5 4.5 - 8.0 [facility] Protein Ql (U) >=300 Abnormal Negative mg/dL [facility] SPECIFIC GRAVITY UA (POCT) 1.025 1.005 - 1.030 [facility] UROBILINOGEN UA (POCT) 0.2 Normal E.U./dL [facility] Location:[address], [address] [place] [address] POINT OF CARE [facility] XR Chest PA and Lateralon IMPRESSION: No acute radiographic abnormality. Quill Buncher And Sorter: PSCB Transcribe Date/Time: Nov 18 2023 11:20A Dictated by : ELLI BAUM MD This examination was interpreted and the report reviewed and electronically signed by: ELLI BAUM MD on Nov 18 2023 11:21AM [facility] DIVISION OF RADIOLOGY * * *Final [...] wall surgical clips. DIVISION OF RADIOLOGY Provider, [facility] Caroline alves [place] - 11/18/2023 * * *Final Report* * [...] clips. IMPRESSION IMPRESSION: No acute radiographic abnormality. Quill Buncher And Sorter: AAKASH Transcribe Date/Time: Nov 18 2023 11:20A Dictated by : ELLI BAUM MD This examination was interpreted and the report reviewed and electronically signed by: ELLI BAUM MD on Nov 18 2023 11:21AM EST [facility] Radiology Study observation (narrative) [facility] XR Chest PA and LateralOrder ed By: [facility]cf Provider on 11-18-2023 [facility] BACTERIAL VAGINOSIS NAATon 0 10-22-2023 Interpretation and review of laboratory results Normal [facility] Lactobacillus crispatus+gasseri+j ensenii + Gardnerella vaginalis + Atopobium vaginae rRNA RADHA+probe Ql (Vag fld) Negative Negative for bacterial vaginosis [facility] ALBA/TRICHOMONAS NAATon 0 10-22-2023 C. glabrata RNA RADHA+probe Ql (Vag fld) Negative Negative for Alba glabrata [facility] Alba sp DNA RADHA+probe Ql (Vag fld) Positive Abnormal Negative for Alba species [facility] Interpretation and review of laboratory results Abnormal [facility] T. vaginalis DNA RADHA+probe Ql (Unsp spec) Negative Negative for Trichomonas vaginalis by amplification [facility] UA DIP, URINE (POC)on 2023 BILIRUBIN UA (POCT) Negative Negative [facility] CLARITY UA (POCT) Clear [facility] COLOR UA (POCT) Yellow [facility] GLUCOSE UA (POCT) Negative Negative mg/dL [facility] Hemoglobin Ql (U) Negative Negative [facility] KETONE UA (POCT) Negative Negative mg/dL [facility] LEUKOCYTES UA (POCT) Negative Negative [facility] NITRITE UA (POCT) Negative Negative [facility] PH UA (POCT) 5.5 4.5 - 8.0 [facility] Protein Ql (U) Negative Negative mg/dL [facility] SPECIFIC GRAVITY UA (POCT) 1.025 1.005 - 1.030 [facility] UROBILINOGEN UA (POCT) 0.2 Normal E.U./dL [facility] Location:[facility], [address] [place] [address], [place], [place], [id number] [place] [address] POINT OF CARE [facility] DBT Breast - left diagnostic for implanton 09-30-2023 [facility] US Breast - left limitedon 0 09-30-2023 [facility] CBC panel Auto (Bld)on 05-22 Erythrocyte distribution width (RBC) [Ratio] 12.6 % 11.5 - 15.0 % [facility] Hematocrit (Bld) [Volume fraction] 42.8 % 36.0 - 46.0 % [facility] Hemoglobin (Bld) [Mass/Vol] 14.0 g/dL 11.5 - 15.5 g/dL [facility] MCH (RBC) [Entitic mass] 31.3 pg 26.0 - 34.0 pg [facility] MCHC (RBC) [Mass/Vol] 32.7 g/dL 30.5 - 36.0 g/dL [facility] MCV (RBC) [Entitic vol] 95.7 fL 80.0 - 100.0 fL [facility] Nucleated RBC (Bld) [#/Vol] <0.01 k/uL [facility] Platelet mean volume (Bld) [Entitic vol] 11.6 fL 9.0 - 12.7 fL [facility] Platelets (Bld) [#/Vol] 256 10*3/uL 150 - 400 k/uL [facility] RBC (Bld) [#/Vol] 4.47 10*6/uL 3.90 - 5.20 m/uL [facility] WBC (Bld) [#/Vol] 8.44 10*3/uL 3.70 - 11.00 k/u L [facility] No Panel Informationon 09-03 [facility] Absolute lymphocyte counton 03-02-2022 Lymphocytes Auto (Unsp spec) [#/Vol] 1.96 10*3/uL 0.83-4.51 [facility] Work Phone: Basophil percentageon 2021 Basophils/100 WBC (Bld) 0.6 % 0-1 [facility] Work Phone: Bilirubin [Mass/Vol] 0.40 mg/dL 0.20-1.00 [facility] Work Phone: Comment on above: For patients on eltr ombopag therapy, use of Dimension [employer]y [employer] TBIL is not recommended. Chloride [Moles/Vol] 108 mmol/L 98-107 [facility] Work Phone: Eosinophils/100 WBC (Bld) 5.5 % 0-5 [facility] Work Phone: Glucose [Mass/Vol] 93 mg/dL 74-106 [facility] Work Phone: Neutrophils (Bld) [#/Vol] 5.0 10*3/uL 2.0-7.7 [facility] Work Phone: Neutrophils/100 WBC (Bld) 62.7 % 47-70 [facility] Work Phone: Potassium [Moles/Vol] 3.6 mmol/L 3.5-5.1 [facility] Work Phone: Protein [Mass/Vol] 7.6 g/dL 6.4-8.2 [facility] Work Phone: Sodium [Moles/Vol] 143 mmol/L 136-145 [facility] Work Phone: WBC (Bld) [#/Vol] 8.0 10*3/uL 4.4-11.0 [facility] Work Phone: Blood erythrocytes count (nu mber/volume)on 03-02-2022 RBC (Bld) [#/Vol] 4.56 10*6/uL 4.2-5.4 [facility] Work Phone: Blood hemoglobin measurement (mass/volume)on 03-02-2022 Hemoglobin (Bld) [Mass/Vol] 14.3 g/dL 12.0-15.0 [facility] Work Phone: Blood lymphocytes/100 leukoc yteson 03-02-2022 Lymphocytes/100 WBC (Bld) 24.5 % 19-41 [facility] Work Phone: Blood monocytes/100 leukocyt eson 03-02-2022 Monocytes/100 WBC (Bld) 6.6 % 0-10 [facility] Work Phone: Blood platelet mean volumeon 03-02-2022 Platelet mean volume (Bld) [Entitic vol] 11.1 fL 6.2-12.0 [facility] Work Phone: Determination of erythrocyte mean corpuscular volume (MCV)on 03-02-2022 MCV (RBC) [Entitic vol] 95.6 fL 81-99 [facility] Work Phone: Hematocrit Auto (Bld) [Volum e fraction]on 03-02-2022 Hematocrit (Bld) [Volume fraction] 43.6 % 37-47 [facility] Work Phone: INR in Blood by Coagulation assayon 03-02-2022 INR Coag (Bld) [Relative time] 1.1 {INR} [facility] Work Phone: Laboratory - Chemistry and C hemistry - challengeon 03-02-2022 ALP [Catalytic activity/Vol] 86 U/L 45-117 [facility] Work Phone: ALT [Catalytic activity/Vol] 18 U/L 13-56 [facility] Work Phone: CO2 [Moles/Vol] 27.0 mmol/L 21.0-32.0 [facility] Work Phone: Globulin (S) [Mass/Vol] 3.9 g/dL 2.2-4.2 [facility] Work Phone: Urea nitrogen/Creatinine [Mass ratio] 9.8 mg/mg 10-20 [facility] Work Phone: Laboratory - Coagulationon 0 03-02-2022 aPTT Coag (Bld) [Time] 31.7 s 24.1-36.2 [facility] Work Phone: PT Coag (PPP) [Time] 13.5 s 11.7-14.9 [facility] Work Phone: Laboratory - Hematology and Cell countson 03-02-2022 Erythrocyte distribution width (RBC) [Entitic vol] 47.2 fL 35.1-43.9 [facility] Work Phone: Erythrocyte distribution width (RBC) [Ratio] 13.2 % 11.6-14.6 [facility] Work Phone: Immature granulocytes/100 WBC (Bld) 0.100 % 0.0-0.9 [facility] Work Phone: Comment on above: IG% - Immature Granu locytes (promyelocytes, myelocytes and metamyelocytes) > 1% indicates that a LEFT SHIFT is Present. MCH (RBC) [Entitic mass] 31.4 pg 27.0-32.0 [facility] Work Phone: Nucleated RBC/100 WBC (Bld) [Ratio] 0 % 0-5 [facility] Work Phone: MCHC Auto (RBC) [Mass/Vol]on 03-02-2022 MCHC (RBC) [Mass/Vol] 32.8 g/dL 32-36 [facility] Work Phone: No Panel Informationon 03-02 Estimated Creatinine Clearance Calc 43.72 ml/min [facility] Work Phone: Estimated GFR (MDRD) Amer 77 mL/min >60 [facility] Work Phone: Comment on above: GFR Calc Estimated GFR (MDRD) Non-Af Amer 64 mL/min >60 [facility] Work Phone: Comment on above: Non- GFR Calc Platelets bldon 03-02-2022 Platelets (Bld) [#/Vol] 267 10*3/uL 150-450 [facility] Work Phone: Serum or plasma albumin iwona urement (mass/volume)on 03-02-2022 Albumin [Mass/Vol] 3.7 g/dL 3.2-5.0 [facility] Work Phone: Serum or plasma albumin/glob ulin mass ratioon 03-02-2022 Albumin/Globulin [Mass ratio] 0.9 {ratio} 0.9-2.4 [facility] Work Phone: Serum or plasma calcium iwona urement (mass/volume)on 03-02-2022 Calcium [Mass/Vol] 9.2 mg/dL 8.5-10.1 [facility] Work Phone: Serum or plasma creatinine m easurement (mass/volume)on 03-02-2022 Creatinine [Mass/Vol] 0.92 mg/dL 0.55-1.02 [facility] Work Phone: Comment on above: The validity of the calculated GFR & GFRAA in patients over 70 years has not been determined. Clinical correlation is essential. Serum or plasma urea nitroge n measurement (mass/volume)on 03-02-2022 Urea nitrogen [Mass/Vol] 9 mg/dL - [facility] Work Phone: Thin prep Papanicolaou smear with manual screeningon 03-02-2022 Thin prep Papanicolaou smear with manual screening 16 U/L 15-37 [facility] Work Phone: Thin prep Papanicolaou smear with manual screening 8 5-15 [facility] Work Phone: US LEG VEIN DVT UNL VAS LABo n 02-07-2022 [facility] UA DIP, URINE (POC)on 2021 BILIRUBIN UA (POCT) Small Abnormal Negative [facility] CLARITY UA (POCT) Clear [facility] COLOR UA (POCT) Dark yellow [facility] GLUCOSE UA (POCT) Negative Negative mg/dL [facility] HEMOGLOBIN/BLOOD UA (POCT) Trace-intact Abnormal Negative [facility] KETONE UA (POCT) Negative Negative mg/dL [facility] ([facility]) Trace Abnormal Negative [facility] NITRITE UA (POCT) Negative Negative [facility] PH UA (POCT) 5.5 4.5 - 8.0 [facility] Protein Ql (U) Trace Abnormal Negative mg/dL [facility] SPECIFIC GRAVITY UA (POCT) >=1.030 1.005 - 1.030 [facility] UROBILINOGEN UA (POCT) 0.2 E.U./dL Normal E.U./dL [facility] BARBARA SCREENINGon 09-02-2021 [facility] CNOVon 11-02-2018 [facility] Office Visit (DELILAHURFL ) ILENE SHAW ([id number]) 1950 F Date Time Provider Department 11/02/18 10:30 AM DEEP SHANE During your visit today, we recorded the following information about you: Deep Shane DO, MBA 11/02/2018 11:31 AM Signed ?? [facility] [place] [facility] LOCATION: [address] [place] [address] CYSTOSCOPY PROCEDURE NOTE: Ilene Shaw is a 68 year old female who presents with bladder nodule for a cystoscopy. Pt ID verified with patient: Yes Procedure verified with patient: Yes Procedure confirmed with physician and learning support services director: Yes Sign In: History and Physical Exam [...] Shane DO, MBA Referring Provider: DEEP SHANE [[id number]] Allergies As of Date: 11/02/2018 Noted Allergy [...] Encounter Status:Closed by DEEP SHANE on 11/02/18 [facility] PROCEDUREon 11-02-2018 Protein mass conc HNO ID: [id number] Author: Deep Shane Service: ? Author Type: Physician Type: Procedures Filed: 11/02/2018 11:31 AM Note Text: ?? [facility] [place] LOCATION: [address] [place] [address] CYSTOSCOPY PROCEDURE NOTE: Ilene Shaw is a 68 year old female who presents with bladder nodule for a cystoscopy. Pt ID verified with patient: Yes Procedure verified with patient: Yes Procedure confirmed with physician and learning support services director: Yes Sign In: History and Physical Exam [...] consider mid-urethral sling Deep Shane DO, MBA [facility] Vital Signs Date Time Vital Sign Value Performing Clinician Susanna tolentino 01-03-2025 15:04-0400 Body height 157.[address] Jennifer Santos MD Work Phone: [facility] 01-03-2025 15:04-0400 Body mass index (BMI) [Ratio] 35.6 kg/m2 Dr. Jennifer Santos MD Work Phone: 7(046)[phone] [place] [address] 01-03-2025 15:04-0400 Body temperature 98.2 [degF] Dr. Jennifer Santos MD Work Phone: 7(454)463-348190 [place] [address] 01-03-2025 15:04-0400 Body weight 88.[address] Jennifer Santos MD Work Phone: 3(639)134-325890 [place] [address] 01-03-2025 15:04-0400 Diastolic blood pressure 84 mm[Hg] Dr. Jennifer Santos MD Work Phone: 0(171)900-892990 [place] [address] 01-03-2025 15:04-0400 Heart rate 94 /min Dr. Jennifer Santos MD Work Phone: 9(275)309-667290 [place] [address] 01-03-2025 15:04-0400 Respiratory rate 16 /min Dr. Jennifer Santos MD Work Phone: 3(057)492-609590 [place] [address] 01-03-2025 15:04-0400 SaO2% (BldA) [Mass fraction] 97 % Dr. Jennifer Santos MD Work Phone: 6(950)868-552090 [place] [address] 01-03-2025 15:04-0400 Systolic blood pressure 130 mm[Hg] Dr. Jennifer Santos MD Work Phone: 9(464)581-058690 [place] [address] 05-10-2024 12:44-0500 Body mass index (BMI) [Ratio] 35.08 kg/m2 Torrey Athy PA-C Work Phone: 5(742)814-627477 [place] [address] 05-10-2024 12:44-0500 Body temperature 98.1 [degF] Torrey Athy PA-C Work Phone: 6(838)423-213177 [place] [address] 05-10-2024 12:44-0500 Body weight 87 kg Torrey Athy PA-C Work Phone: 2(767)284-112677 [place] [address] 05-10-2024 12:44-0500 Diastolic blood pressure 78 mm[Hg] Torrey Athy PA-C Work Phone: 7(069)736-379977 [place] [address] 05-10-2024 12:44-0500 Heart rate 75 /min Torrey Athy PA-C Work Phone: [facility] 05-10-2024 12:44-0500 Respiratory rate 20 /min Torrey Athy PA-C Work Phone: [facility] 05-10-2024 12:44-0500 SaO2% (BldA) [Mass fraction] 100 % Torrey Athy PA-C Work Phone: [facility] 05-10-2024 12:44-0500 Systolic blood pressure 136 mm[Hg] Torrey Maresy PA-C Work Phone: [facility] 11-17-2023 18:23-0400 Body mass index (BMI) [Ratio] 35.12 kg/m2 Elaine Praisler-Wood OIL WELL ENGINEER.RAILROAD TRACK REPAIR 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: [facility] 11-17-2023 18:23-0400 Body temperature 99.1 [degF] Elaine Praisler-Wood OIL WELL ENGINEER.RAILROAD TRACK REPAIR 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: [facility] 11-17-2023 18:23-0400 Body weight 87.1 kg Elaine Praisler-Wood OIL WELL ENGINEER.RAILROAD TRACK REPAIR 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: [facility] 11-17-2023 18:23-0400 Diastolic blood pressure 80 mm[Hg] Elaine Praisler-Wood OIL WELL ENGINEER.RAILROAD TRACK REPAIR 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: [facility] 11-17-2023 18:23-0400 Heart rate 98 /min Elaine Praisler-Wood OIL WELL ENGINEER.RAILROAD TRACK REPAIR 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: [facility] 11-17-2023 18:23-0400 Respiratory rate 18 /min Elaine Praisler-Wood OIL WELL ENGINEER.RAILROAD TRACK REPAIR 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: [facility] 11-17-2023 18:23-0400 SaO2% (BldA) [Mass fraction] 94 % Elaine Praisler-Wood OIL WELL ENGINEER.RAILROAD TRACK REPAIR 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: [facility] 11-17-2023 18:23-0400 Systolic blood pressure 128 mm[Hg] Elaine Praisler-Wood OIL WELL ENGINEER.RAILROAD TRACK REPAIR 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: [facility] 10-21-2023 12:29-0400 Body mass index (BMI) [Ratio] 35.52 kg/m2 Torrey Athy PA-C Work Phone: [facility] 10-21-2023 12:29-0400 Body temperature 98.91 [degF] Torrey Athy PA-C Work Phone: [facility] 10-21-2023 12:29-0400 Body weight 88.1 kg Torrey Athy PA-C Work Phone: [facility] 10-21-2023 12:29-0400 Diastolic blood pressure 82 mm[Hg] Torrey Athy PA-C Work Phone: [facility] 10-21-2023 12:29-0400 Heart rate 80 /min Torrey Athy PA-C Work Phone: [facility] 10-21-2023 12:29-0400 Respiratory rate 18 /min Torrey Athy PA-C Work Phone: [facility] 10-21-2023 12:29-0400 SaO2% (BldA) [Mass fraction] 97 % Torrey Athy PA-C Work Phone: [facility] 10-21-2023 12:29-0400 Systolic blood pressure 132 mm[Hg] Torrey Athy PA-C Work Phone: [facility] 08-28-2023 18:30-0400 Body temperature 96.98 [degF] LENA JIMENEZ MD [facility] 08-28-2023 18:30-0400 Body weight 89.9 kg LENA JIMENEZ MD [facility] 08-28-2023 18:30-0400 Diastolic Blood Pressure Non-Invasive 88 mm[Hg] LENA JIMENEZ MD [facility] 08-28-2023 18:30-0400 Heart rate 73 /min LENA JIMENEZ MD [facility] 08-28-2023 18:30-0400 Respiratory rate 18 /min LENA JIMENEZ MD [facility] 08-28-2023 18:30-0400 Systolic Blood Pressure Non-Invasive 159 mm[Hg] LENA JIMENEZ MD [facility] 08-28-2023 16:43-0400 Body height 157.48 cm [facility] 08-28-2023 16:43-0400 Body temperature 95.6 [degF] [facility] 08-28-2023 16:43-0400 Diastolic blood pressure 83 mm[Hg] [facility] 08-28-2023 16:43-0400 Heart rate 88 /min [facility] 08-28-2023 16:43-0400 Respiratory rate 14 /min [facility] 08-28-2023 16:43-0400 SaO2% (BldA) [Mass fraction] 98 % [facility] 08-28-2023 16:43-0400 Systolic blood pressure 151 mm[Hg] [facility] 05-27-2023 01:48-0500 Heart rate 89 /min [facility] 05-27-2023 01:48-0500 Respiratory rate 18 /min [facility] 05-27-2023 01:48-0500 SaO2% (BldA) [Mass fraction] 97 % [facility] 05-27-2023 01:28-0500 Diastolic blood pressure 79 mm[Hg] [facility] 05-27-2023 01:28-0500 Systolic blood pressure 153 mm[Hg] [facility] 05-26-2023 23:40-0500 Body height 157.48 cm [facility] 05-26-2023 23:40-0500 Body mass index (BMI) [Ratio] 35.1 kg/m2 [facility] 05-26-2023 23:40-0500 Body temperature 97.3 [degF] [facility] 05-26-2023 23:40-0500 Body weight 87.08 kg [facility] 05-21-2023 19:08-0500 Body temperature 96.91 [degF] Rolf Burger MD Work Phone: [facility] 05-21-2023 19:08-0500 Body weight 87.5 kg Rolf Burger MD Work Phone: [facility] 05-21-2023 19:08-0500 Diastolic blood pressure 86 mm[Hg] Rolf Burger MD Work Phone: [facility] 05-21-2023 19:08-0500 Heart rate 92 /min Rolf Burger MD Work Phone: [facility] 05-21-2023 19:08-0500 Respiratory rate 16 /min Rolf Burger MD Work Phone: [facility] 05-21-2023 19:08-0500 SaO2% (BldA) [Mass fraction] 99 % Rolf Burger MD Work Phone: [facility] 05-21-2023 19:08-0500 Systolic blood pressure 136 mm[Hg] Rlof Burger MD Work Phone: [facility] 05-21-2023 13:40-0500 Body temperature 98.71 [degF] Yaakov Richter MD Work Phone: [facility] 05-21-2023 13:40-0500 Body weight 87.36 kg Yaakov Richter MD Work Phone: [facility] 05-21-2023 13:40-0500 Diastolic blood pressure 82 mm[Hg] Yaakov Richter MD Work Phone: [facility] 05-21-2023 13:40-0500 Heart rate 80 /min Yaakov Richter MD Work Phone: [facility] 05-21-2023 13:40-0500 Respiratory rate 18 /min Yaakov Richter MD Work Phone: [facility] 12-07-2023 13:40-0500 SaO2% (BldA) [Mass fraction] 99 % Yaakov Richter MD Work Phone: [facility] 05-21-2023 13:40-0500 Systolic blood pressure 138 mm[Hg] Yaakov Richter MD Work Phone: [facility] 05-07-2023 22:45-0500 Body height 157.5 cm MISHEL PEREZ DO [facility] 05-07-2023 22:45-0500 Body temperature 98.42 [degF] MISHEL PEREZ DO [facility] 05-07-2023 22:45-0500 Body weight 84 kg MISHEL MCCRARYT [facility] 05-07-2023 22:45-0500 Diastolic Blood Pressure Non-Invasive 88 mm[Hg] MISHEL MCCRARYT [facility] 05-07-2023 22:45-0500 Heart rate 83 /min MISHEL PEREZ DO [facility] 05-07-2023 22:45-0500 Respiratory rate 18 /min MISHEL PEREZ DO [facility] 05-07-2023 22:45-0500 Systolic Blood Pressure Non-Invasive 175 mm[Hg] MISHEL PEREZ DO [facility] 05-16-2022 11:39-0500 Body height 157.5 cm Jennifer Santos MD Work Phone: [facility] 05-16-2022 11:39-0500 Body temperature 97.7 [degF] Jennifer Santos MD Work Phone: [facility] 05-16-2022 11:39-0500 Body weight 83.92 kg Jennifer Santos MD Work Phone: [facility] 05-16-2022 11:39-0500 Diastolic blood pressure 76 mm[Hg] Jennifer Santos MD Work Phone: [facility] 05-16-2022 11:39-0500 Heart rate 81 /min Jennifer Santos MD Work Phone: [facility] 05-16-2022 11:39-0500 Respiratory rate 12 /min Jennifer Santos MD Work Phone: [facility] 05-16-2022 11:39-0500 SaO2% (BldA) [Mass fraction] 96 % Jennifer Santos MD Work Phone: [facility] 05-16-2022 11:39-0500 Systolic blood pressure 124 mm[Hg] Jennifer Santos MD Work Phone: [facility] 03-17-2022 14:42-0400 Body weight 85.73 kg Arpit Beck MD Work Phone: [facility] 03-17-2022 14:42-0400 Diastolic blood pressure 74 mm[Hg] Arpit Beck MD Work Phone: [facility] 03-17-2022 14:42-0400 Heart rate 95 /min Arpit Beck MD Work Phone: [facility] 03-17-2022 14:42-0400 Respiratory rate 16 /min Arpit Beck MD Work Phone: [facility] 03-17-2022 14:42-0400 SaO2% (BldA) [Mass fraction] 98 % Arpit Beck MD Work Phone: [facility] 03-17-2022 14:42-0400 Systolic blood pressure 132 mm[Hg] Arpit Beck MD Work Phone: [facility] 03-03-2022 15:13-0400 Body height 157.5 cm Jennifer Santos MD Work Phone: [facility] 03-03-2022 15:13-0400 Body temperature 99.19 [degF] Jennifer Santos MD Work Phone: [facility] 03-03-2022 15:13-0400 Body weight 85.73 kg Jennifer Santos MD Work Phone: [facility] 03-03-2022 15:13-0400 Diastolic blood pressure 70 mm[Hg] Jennifer Santos MD Work Phone: [facility] 03-03-2022 15:13-0400 Heart rate 90 /min Jennifer Santos MD Work Phone: [facility] 03-03-2022 15:13-0400 Respiratory rate 12 /min Jennifer Santos MD Work Phone: [facility] 03-03-2022 15:13-0400 SaO2% (BldA) [Mass fraction] 95 % Jennifer Santos MD Work Phone: [facility] 03-03-2022 15:13-0400 Systolic blood pressure 126 mm[Hg] Jennifer Santos MD Work Phone: [facility] 03-02-2022 22:56-0400 Diastolic blood pressure 83 mm[Hg] Dr. Jennifer Santos Work Phone: [facility] Work Phone: 03-02-2022 22:56-0400 Heart rate 74 /min Dr. Jennifer Santos Work Phone: [facility] Work Phone: 03-02-2022 22:56-0400 Respiratory rate 16 /min Dr. Jennifer Santos Work Phone: [facility] Work Phone: 03-02-2022 22:56-0400 SaO2% (BldA) [Mass fraction] 98 % Dr. Jennifer Santos Work Phone: [facility] Work Phone: 03-02-2022 22:56-0400 Systolic blood pressure 180 mm[Hg] Dr. Jennifer Santos Work Phone: [facility] Work Phone: 03-02-2022 18:26-0400 Body height 157.[address] Jennifer Santos Work Phone: [facility] Work Phone: 03-02-2022 18:26-0400 Body mass index (BMI) [Ratio] 35.2 kg/m2 Dr. Jennifer Santos Work Phone: [facility] Work Phone: 03-02-2022 18:26-0400 Body temperature 97.8 [degF] Dr. Jennifer Santos Work Phone: [facility] Work Phone: 03-02-2022 18:26-0400 Body weight 87.[address] Jennifer Santos Work Phone: [facility] Work Phone: 02-18-2022 07:12-0400 Body height 160.02 cm [facility] Work Phone: 02-18-2022 07:12-0400 Body mass index (BMI) [Ratio] 33.8 kg/m2 [facility] Work Phone: 02-18-2022 07:12-0400 Body temperature 97.5 [degF] [facility] Work Phone: 02-18-2022 07:12-0400 Body weight 86.63 kg [facility] Work Phone: 02-18-2022 07:12-0400 Diastolic blood pressure 90 mm[Hg] [facility] Work Phone: 02-18-2022 07:12-0400 Heart rate 88 /min [facility] Work Phone: 02-18-2022 07:12-0400 Respiratory rate 18 /min [facility] Work Phone: 02-18-2022 07:12-0400 SaO2% (BldA) [Mass fraction] 99 % [facility] Work Phone: 02-18-2022 07:12-0400 Systolic blood pressure 186 mm[Hg] [facility] Work Phone: 02-07-2022 07:10-0400 Body temperature 98.2 [degF] Torrey Athy PA-C Work Phone: [facility] 02-07-2022 07:10-0400 Body weight 86.73 kg Torrey Athy PA-C Work Phone: [facility] 02-07-2022 07:10-0400 Diastolic blood pressure 76 mm[Hg] Torrey Athy PA-C Work Phone: [facility] 02-07-2022 07:10-0400 Heart rate 94 /min Torrey Athy PA-C Work Phone: [facility] 02-07-2022 07:10-0400 Respiratory rate 18 /min Torrey Athy PA-C Work Phone: [facility] 02-07-2022 07:10-0400 SaO2% (BldA) [Mass fraction] 97 % Torrey Athy PA-C Work Phone: [facility] 02-07-2022 07:10-0400 Systolic blood pressure 142 mm[Hg] Torrey Athy PA-C Work Phone: [facility] 01-25-2022 08:53-0400 Body temperature 96.8 [degF] Zee Romelia OIL WELL ENGINEER.RAILROAD TRACK REPAIR 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: [facility] 01-25-2022 08:53-0400 Body weight 86.82 kg Zee Romelia OIL WELL ENGINEER.RAILROAD TRACK REPAIR 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: [facility] 01-25-2022 08:53-0400 Diastolic blood pressure 102 mm[Hg] Zee Romelia OIL WELL ENGINEER.RAILROAD TRACK REPAIR 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: [facility] 01-25-2022 08:53-0400 Heart rate 93 /min Zee Romelia OIL WELL ENGINEER.RAILROAD TRACK REPAIR 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: [facility] 01-25-2022 08:53-0400 Respiratory rate 21 /min Zee Romelia OIL WELL ENGINEER.RAILROAD TRACK REPAIR 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: [facility] 01-25-2022 08:53-0400 SaO2% (BldA) [Mass fraction] 96 % Zee Velozdm EDMONDSON.RAILROAD TRACK REPAIR 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: [facility] 01-25-2022 08:53-0400 Systolic blood pressure 160 mm[Hg] Zee Romeliadm EDMONDSON.RAILROAD TRACK REPAIR 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: [facility] 12-13-2021 13:19-0400 Body height 157.5 cm Natasha Espino PA-C Work Phone: [facility] 12-13-2021 13:19-0400 Body temperature 98.01 [degF] Natasha Espino PA-C Work Phone: [facility] 12-13-2021 13:19-0400 Body weight 87.54 kg Natasha Trevon PA-C Work Phone: [facility] 12-13-2021 13:19-0400 Diastolic blood pressure 68 mm[Hg] Natasha Trevon PA-C Work Phone: [facility] 12-13-2021 13:19-0400 Heart rate 101 /min Natasha Trevon PA-C Work Phone: [facility] 12-13-2021 13:19-0400 SaO2% (BldA) [Mass fraction] 98 % Natasha Trevon PA-C Work Phone: [facility] 12-13-2021 13:19-0400 Systolic blood pressure 112 mm[Hg] Natasha Espino PA-C Work Phone: [facility] 12-03-2021 13:52-0400 Body height 154.9 cm Kodi Muniz MD Work Phone: [facility] 12-03-2021 13:52-0400 Body temperature 98.71 [degF] Kodi Muniz MD Work Phone: [facility] 12-03-2021 13:52-0400 Body weight 86.64 kg Kodi Muniz MD Work Phone: [facility] 12-03-2021 13:52-0400 Diastolic blood pressure 90 mm[Hg] Kodi Muniz MD Work Phone: [facility] 12-03-2021 13:52-0400 Heart rate 98 /min Kodi Muniz MD Work Phone: [facility] 12-03-2021 13:52-0400 SaO2% (BldA) [Mass fraction] 92 % Kodi Muniz MD Work Phone: [facility] 12-03-2021 13:52-0400 Systolic blood pressure 128 mm[Hg] Kodi Muniz MD Work Phone: [facility] 10-28-2021 09:49-0400 Body height 156.2 cm Zofia Donnelly OIL WELL ENGINEER.RAILROAD TRACK REPAIR 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: [facility] 10-28-2021 09:49-0400 Body temperature 97.39 [degF] Zofia Donnelly OIL WELL ENGINEER.RAILROAD TRACK REPAIR 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: [facility] 10-28-2021 09:49-0400 Body weight 87.77 kg Zofia Donnelly OIL WELL ENGINEER.RAILROAD TRACK REPAIR 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: [facility] 10-28-2021 09:49-0400 Diastolic blood pressure 76 mm[Hg] Niles Donnelly OIL WELL ENGINEER.RAILROAD TRACK REPAIR 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: [facility] 10-28-2021 09:49-0400 Heart rate 75 /min Niles Donnelly OIL WELL ENGINEER.RAILROAD TRACK REPAIR 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: [facility] 10-28-2021 09:49-0400 Systolic blood pressure 139 mm[Hg] Niles Donnelly OIL WELL ENGINEER.RAILROAD TRACK REPAIR 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: [facility] Encounters Encounter Date Encounter Type Care Provider Facility Start: 04-04-2025 ambulatory Bran [facility] Facility:[facility] Start: 04-04-2025 End: 04-04-2025 Emergency department patient visit [facility] Facility:[facility] Start: 01-03-2025 End: 01-03-2025 Patient encounter procedure [facility] Work Phone: Start: 01-03-2025 End: 01-03-[address] Jennifer Santos MD Work Phone: [facility] Start: 11-29-2024 End: 12-20-2024 Admission to same day surgery center Jennifer Santos MD Work Phone: Ambulatory Surgery Comment on above: NG Tube Replacement (Patient is overdue for colorectal cancer screening since 08/08/2024. Please schedule open access colonoscopy. ) Start: 11-29-2024 End: 12-20-2024 ambulatory Jennifer Santos MD Work Phone: Ambulatory Surgery Start: 09-28-2024 End: 11-28-2024 Follow-up encounter Jennifer Santos MD Work Phone: [facility] [place] Start: 09-22-2024 End: 09-22-2024 ambulatory JENNIFER SANTOS Facility:[facility] Start: 09-22-2024 End: 09-22-2024 Subsequent hospital visit by physician Screen Mammo [facility] Comment on above: Encounter for screen ing mammogram for breast cancer [Z12.31] Start: 09-14-2024 End: 09-14-2024 Telephone encounter Jennifer Santos MD Work Phone: [facility] Comment on above: Orders Start: 05-11-2024 End: 05-11-2024 Telephone encounter Torrey Dawson PA-C Work Phone: [facility] Comment on above: Results Start: 05-10-2024 End: 05-10-2024 ambulatory JENNIFER SANTOS Facility:[facility] Start: 05-10-2024 End: 05-10-2024 Patient encounter procedure Torrey Dawson PA-C Work Phone: [facility] Comment on above: Acute UTI (Primary D x); Screening for STD (sexually transmitted disease); Vaginal irritation Start: 11-18-2023 Telephone encounter Julieta nunez APRN.CNP Work Phone: [facility] Comment on above: Results Start: 11-18-2023 End: 11-18-2023 Subsequent hospital visit by physician Xr [facility] [place] [facility] Work Phone: Radiology Comment on above: Acute cough [R05.1] Start: 11-17-2023 End: 11-17-2023 Patient encounter procedure Elaineblaise Lemus OIL WELL ENGINEER.RAILROAD TRACK REPAIR 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: [facility] Comment on above: Sinobronchitis (Prim adeel Dx); Acute cough Start: 10-22-2023 Telephone encounter Cesar ann OIL WELL ENGINEER.RAILROAD TRACK REPAIR 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: [facility] Comment on above: Results Start: 10-21-2023 End: 10-21-2023 Patient encounter procedure Torrey Dawson PA-C Work Phone: [facility] Comment on above: Vaginal itching (Bailee bahman Dx) Start: 09-30-2023 End: 09-30-2023 Subsequent hospital visit by physician Us [facility] Work Phone: Radiology Comment on above: Abnormal mammogram o f left breast [R92.8] Start: 09-07-2023 End: 09-07-2023 Subsequent hospital visit by physician Screen Mammo [facility] Comment on above: ER+ (estrogen recept or positive status) [Z17.0] Start: 09-04-2023 Telephone encounter Ashlyn cancino OIL WELL ENGINEER.AREA REPRESENTATIVE Work Phone: Mammogram Comment on above: Orders Start: 09-01-2023 Telephone encounter Jennifer elam MD Work Phone: [facility] [place] Comment on above: Orders Start: 08-31-2023 Telephone encounter Zofia torres OIL WELL ENGINEER.RAILROAD TRACK REPAIR 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: Hematology/Oncology Start: 08-28-2023 End: 08-28-2023 Emergency department patient visit LENA JIMENEZ MD Facility:B Start: 08-28-2023 End: 08-28-2023 Emergency department patient visit LENA JIMENEZ MD [facility] Start: 08-28-2023 End: 08-28-2023 Emergency department patient visit [facility] Work Phone: Start: 08-28-2023 End: 08-28-2023 Patient encounter procedure Julieta Oreilly OIL WELL ENGINEER.RAILROAD TRACK REPAIR 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: [facility] Comment on above: Blurred vision, righ t eye (Primary Dx) Start: 05-26-2023 End: 05-27-2023 [facility] Start: 05-21-2023 End: 05-21-2023 Patient encounter procedure Yaakov Richter MD Work Phone: [facility] Comment on above: Lip swelling (Primar y Dx) Angioedema of lips, subsequent encounter (Primary Dx) Start: 05-08-2023 End: 05-08-2023 Emergency department patient visit [facility] Facility:B Start: 05-07-2023 End: 05-07-2023 Emergency department patient visit [facility] Start: 11-17-2022 ambulatory Kelly Minaya MA [facility] Comment on above: Population Health Na vigation Outreach ([employer] Care Gaps ) Start: 09-04-2022 Documentation procedure [facility] Start: 09-04-2022 Letter encounter Mammography Coordinator [facility] Department Start: 09-04-2022 Telephone encounter Zofia torres APRN.RAILROAD TRACK REPAIR 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: Hematology/Oncology Comment on above: Results Start: 09-03-2022 End: 09-03-2022 Subsequent hospital visit by physician [facility] Mammogram Comment on above: 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] Start: 08-18-2022 Telephone encounter Zofia torres APRNJojoRAILROAD TRACK REPAIR 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: Hematology/Oncology Comment on above: Orders (Mammogram Sc reening) Start: 06-11-2022 ambulatory Jennifer Rhodes Work Phone: Internal Medicine [place] Comment on above: Medication Question Start: 05-16-2022 End: 05-16-2022 Patient encounter procedure Jennifer Santos MD Work Phone: Internal Medicine [place] Comment on above: Recurrent deep vein thrombosis (DVT) (HCC) (Primary Dx); Pedal edema; Other acute sinusitis, recurrence not specified Start: 03-17-2022 End: 03-17-2022 Patient encounter procedure Arpit Beck MD Work Phone: Family [facility] Comment on above: Recurrent deep vein thrombosis (DVT) of lower extremity, unspecified laterality (HCC) (Primary Dx); Allergy to antithrombotic medication Start: 03-17-2022 Telephone encounter Jennifer elam MD Work Phone: Internal [facility] Comment on above: Medication Question Swelling / itching i n left foot Start: 03-15-2022 Refill Jennifer Rhodes Work Phone: Internal [facility] Comment on above: Refill Request Start: 03-03-2022 End: 03-03-2022 Patient encounter procedure Jennifer Santos MD Work Phone: Internal [facility] Comment on above: Anxiety (Primary Dx) ; DVT (deep vein thrombosis) in ; Hyperlipidemia with target low density lipoprotein (LDL) cholesterol less than 130 mg/dL Start: 03-02-2022 End: 03-02-2022 Emergency department patient visit Dr. Jennifer [facility] Start: 02-18-2022 Non-patient / Non-visit Dr. Mena Santos Work Phone: [facility] Start: 02-18-2022 End: 02-18-2022 [facility] Start: 02-07-2022 Telephone encounter Torrey frank PA-C Work Phone: [facility] Comment on above: Results Start: 02-07-2022 End: 02-07-2022 Patient encounter procedure Torrey Dawson PA-C Work Phone: [facility] Comment on above: Left leg swelling (P rimary Dx) Start: 01-25-2022 End: 01-25-2022 Patient encounter procedure Zee León APRN.RAILROAD TRACK REPAIR 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: [facility] Comment on above: Urinary frequency [...] Riley RN He matology/Oncology Comment on above: Fluoroscope Operator - O ther (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 ) Start: 10-28-2021 End: 10-28-2021 ambulatory Zofia Donnelly APRN.RAILROAD TRACK REPAIR 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: Hematology/Oncology Comment on above: 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) (Primary Dx); Cellulitis of axillary region Start: 10-28-2021 End: 10-28-2021 Patient encounter procedure Zofia Donnelly APRN.RAILROAD TRACK REPAIR 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: [facility] Start: 09-02-2021 End: 09-02-2021 Subsequent hospital visit by physician [facility] M[facility]ogram Comment on above: 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] Start: 05-31-2021 Telephone encounter Jennifer elam MD Work Phone: Internal [facility] [place] Comment on above: Patient Update Procedures Date Procedure Procedure Detail Performing Clinician Start: 05-10-2024 Urnls dip stick/tabl et rgnt auto w/o microscopy Torrey Dawson PA-C Work Phone: Start: 11-18-2023 Radiologic exam ches t 2 views Elaine Lemus APRN.RAILROAD TRACK REPAIR 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: Start: 10-21-2023 BACTERIAL VAGINOSIS NAAT Torrey Dawson PA-C Work Phone: Start: 10-21-2023 Iadna trichomonas va ginalis amplified probe tech Torrey Dawson PA-C Work Phone: Start: 10-21-2023 Urnls dip stick/tabl et rgnt auto w/o microscopy Torrey Dawson PA-C Work Phone: Start: 09-30-2023 Us breast uni real t joi with image limited Ashlyn Roger OIL WELL ENGINEER.AREA REPRESENTATIVE Work Phone: Start: 09-30-2023 Digital breast tomosynthesis unilateral Ashlyn Roger OIL WELL ENGINEER.AREA REPRESENTATIVE Work Phone: Start: 09-03-2022 BARBARA SCREENING W EL Da inge Donnelly OIL WELL ENGINEER.RAILROAD TRACK REPAIR 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: Start: 09-03-2022 Mammography Zofia torres OIL WELL ENGINEER.RAILROAD TRACK REPAIR 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: Start: 01-25-2022 Urnls dip stick/tabl et rgnt auto w/o microscopy Zee Romelia OIL WELL ENGINEER.RAILROAD TRACK REPAIR 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: Start: 10-28-2021 Adult depression scr eening assessment Zofia Donnelly OIL WELL ENGINEER.RAILROAD TRACK REPAIR 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: Start: 09-02-2021 End: 09-02-2021 Screening mammography bi 2-view breast inc cad Zofia Donnelly OIL WELL ENGINEER.RAILROAD TRACK REPAIR 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: Start: 09-06-2020 Adult depression scr eening assessment Screen [facility] Start: 08-23-2018 Lipid 1996 panel - S daniel or Plasma Screen [facility] Start: 08-08-2014 Colonoscopy Screen Wst r Plan of Treatment Date Care Activity Detail Author Start: 05-22-2026 Diabetes Screening Diabetes Screenin g [facility] Start: 09-22-2025 Screening for malign ant neoplasm of breast Mammogram Screening [facility] Start: 2025 RSV Vaccine (1 - 1-d ose 75+ series) RSV Vaccine (1 - 1-dose 75+ series) [facility] Start: 02-13-2025 Influenza vaccination C [facility] Start: 09-22-2024 End: 09-22-2024 Patient encounter procedure 09/22/2024 9:50 AM EDT Appointment Mammogram [address] [place] [address] yearly mammogram with el Mammogram Comment on above: yearly mammogram wit h el Start: 09-06-2024 Screening for malign ant neoplasm of breast Mammogram Screening [facility] Start: 08-08-2024 Colonoscopy COLONOSCOPY [facility] Start: 08-08-2024 COLORECTAL CANCER SCREENING COLORECTAL CANCER SCREENING [facility] Start: 08-08-2024 Screening for malign ant neoplasm of colon [facility] Start: 06-15-2024 Advance Directive Discussion Advance Directive Discussion [facility] Start: 06-15-2024 Medicare Advantage Annual Wellness Visit Medicare Advantage Annual Wellness Visit [facility] Start: 02-14-2024 Covid-19 Vaccine () Covid-19 Vaccine () [facility] Start: 02-14-2024 Influenza vaccination C [facility] Start: 09-04-2023 Mammography [facility] Start: 09-04-2023 Screening for malign ant neoplasm of breast Mammogram Screening [facility] Start: 08-24-2023 Lipid 1996 panel - Serum or Plasma Lipid Screening [facility] Start: 08-24-2023 Lipid panel Lipid Screening [facility] Start: 08-24-2023 LIPID SCREEN LIPID SCREEN [facility] Start: 06-15-2023 Advance Directive Discussion Advance Directive Discussion [facility] Start: 06-15-2023 Behavioral Health Screening Behavioral Health Screening [facility] Start: 06-15-2023 Depression Assessment Depression Ass essment [facility] Start: 05-27-2023 [facility] Start: 05-21-2023 End: 08-20-2023 Comprehensive metabolic 2000 panel - Serum or Plasma COMP METABOLIC PANEL Lab Routine Angioedema of lips, subsequent encounter Expected: 05/21/2023, Expires: 08/20/2023 [facility] Work Phone: Comment on above: Expected: 05/21/2023 , Expires: 08/20/2023 Start: 05-04-2023 Urine microalbumin profile DTaP,Tdap,Td Vaccine (1 - Tdap) [facility] Start: 02-13-2023 Covid-19 Vaccine ( season) Covid-19 Vaccine ( season) [facility] Start: 02-13-2023 Influenza vaccination C [facility] Start: 10-28-2022 Adult depression screening assessment DEPRESSION SCREENING [facility] Start: 09-02-2022 Mammography MAMMOGRAM [facility] Start: 06-15-2022 ADVANCE DIRECTIVE DISCUSSION ADVANCE DIRECTIVE DISCUSSION [facility] Start: 06-15-2022 DEPRESSION ASSESSMENT DEPRESSION ASS ESSMENT [facility] Start: 03-03-2022 End: 05-03-2022 Basic metabolic 2000 panel - Serum or Plasma BASIC METABOLIC PNL Lab Routine Hyperlipidemia with target low density lipoprotein (LDL) cholesterol less than 130 mg/dL Expected: 03/03/2022, Expires: 05/03/2022 [facility] Work Phone: Comment on above: Expected: 03/03/2022 , Expires: 05/03/2022 Start: 03-03-2022 End: 05-03-2022 CBC W Auto Differential panel - Blood CBC + DIFF Lab Routine DVT (deep vein thrombosis) in Expected: 03/03/2022, Expires: 05/03/2022 [facility] Work Phone: Comment on above: Expected: 03/03/2022 , Expires: 05/03/2022 Start: 03-03-2022 End: 05-03-2022 Lipid 1996 panel - Serum or Plasma LIPID PANEL BASIC Lab Routine Hyperlipidemia with target low density lipoprotein (LDL) cholesterol less than 130 mg/dL Expected: 03/03/2022, Expires: 05/03/2022 [facility] Work Phone: Comment on above: Expected: 03/03/2022 , Expires: 05/03/2022 Start: 02-13-2022 Influenza vaccination INFLUENZA (#1) [facility] Start: 09-06-2021 Adult depression screening assessment DEPRESSION SCREENING [facility] Start: 08-23-2021 DIABETES SCREEN DIABETES SCREEN [facility] Start: 08-23-2021 Diabetes Screening Diabetes Screenin g [facility] Start: 08-03-2021 COVID-19 VACCINE (4 - Booster for Pfizer series) COVID-19 VACCINE (4 - Booster for Pfizer series) [facility] Start: 06-15-2021 ADVANCE DIRECTIVE DISCUSSION ADVANCE DIRECTIVE DISCUSSION [facility] Start: 06-15-2021 DEPRESSION ASSESSMENT DEPRESSION ASS ESSMENT [facility] Start: 05-28-2021 COVID-19 VACCINE (4 - Booster for Pfizer series) COVID-19 VACCINE (4 - Booster for Pfizer series) [facility] Start: 05-28-2021 COVID-19 VACCINE (4 - Pfizer series) COVID-19 VACCINE (4 - Pfizer series) [facility] Start: 07-13-2015 FECAL OCCULT BLOOD FECAL OCCULT BLOO D [facility] Start: 07-13-2015 Screening for malign ant neoplasm of colon Fecal Occult Blood [facility] Start: 2010 RSV Vaccine (1 - 1-d ose 60+ series) RSV Vaccine (1 - 1-dose 60+ series) [facility] Start: 02-21-2000 SHINGRIX VACCINE (1 of 2) SHINGRIX VACCINE (1 of 2) [facility] Start: 1995 COLOGUARD (FIT-DNA) COLOGUARD (FIT-D NA) [facility] Start: [address] COLONOGRAPHY [facility] Start: 1995 Screening for malign ant neoplasm of colon [facility] Start: 1995 SIGMOIDOSCOPY SIGMOIDOSCOPY [facility] Start: 1969 SHINGRIX VACCINE (1 of 2) SHINGRIX VACCINE (1 of 2) [facility] Start: 1969 Urine microalbumin profile [facility] Start: 02-21-1968 Depression Screening Depression Scre ening [facility] Start: 02-21-1968 HEPATITIS C SCREENING HEPATITIS C [facility] Start: 02-21-1968 Hepatitis C screening Hepatitis [facility] Bacteria identified in Urine by Culture URINE CULTURE Microbiology Routine Urinary frequency Ordered: 01/25/2022 [facility] Work Phone: Comment on above: Ordered: 01/25/2022 Bacteria identified in Urine by Culture URINE CULTURE Microbiology Routine Acute UTI Ordered: 05/10/2024 [facility] Work Phone: Comment on above: Ordered: 05/10/2024 BACTERIAL VAGINOSIS AMPLIFICATION BACTERIAL VAGINOSIS AMPLIFICATION Lab Routine Acute vaginitis Ordered: 01/25/2022 [facility] Work Phone: Comment on above: Ordered: 01/25/2022 BACTERIAL VAGINOSIS NAAT BACTERIAL VAGINOSIS NAAT Lab Routine Screening for STD (sexually transmitted disease) 05/10/2024 1:17 PM EST [facility] ALBA / TRICHOMONA S AMPLIFICATION ALBA / TRICHOMONAS AMPLIFICATION Lab Routine Acute vaginitis Ordered: 01/25/2022 [facility] Work Phone: Comment on above: Ordered: 01/25/2022 ALBA/TRICHOMONAS NAAT ALBA/TRICHOMONAS NAAT Lab Routine Screening for STD (sexually transmitted disease) 05/10/2024 1:17 PM EST [facility] Chlamydia trachomatis+Neisseria gonorrhoeae DNA [Presence] in Unspecified specimen by RADHA with probe detection GONORRHEA/CHLAMYDIA NAAT Lab Routine Screening for STD (sexually transmitted disease) 05/10/2024 1:17 PM EST [facility] Comprehensive metabo lic 2000 panel - Serum or Plasma COMP METABOLIC PANEL Lab Routine Angioedema of lips, subsequent encounter 05/22/2023 10:39 AM EST [facility] Work Phone: End: 09-30-2024 DBT Breast - bilateral screening BARBARA SCREENING W EL Radiology Routine ER+ (estrogen receptor positive status) Encounter for screening mammogram for breast cancer 1 Occurrences starting 09/01/2023 until 09/30/2024 [facility] Work Phone: Comment on above: 1 Occurrences starti ng 09/01/2023 until 09/30/2024 DBT Breast - bilater al screening BARBARA SCREENING W EL Radiology Routine ER+ (estrogen receptor positive status) Encounter for screening mammogram for breast cancer 09/07/2023 2:25 PM EDT [facility] Work Phone: End: 10-14-2025 DBT Breast - bilateral screening BARBARA SCREENING W EL Radiology Routine Encounter for screening mammogram for breast cancer 1 Occurrences starting 09/14/2024 until 10/14/2025 [facility] Work Phone: Comment on above: 1 Occurrences starti ng 09/14/2024 until 10/14/2025 DBT Breast - bilater al screening BARBARA SCREENING W EL Radiology Routine Encounter for screening mammogram for breast cancer 09/22/2024 9:57 AM EDT [facility] Work Phone: Patient Education [facility] Work Phone: Patient referral [facility] Work Phone: End: 12-16-2024 XR Chest PA and Lateral XR CHEST 2V FRONTAL/LAT Radiology STAT Acute cough 1 Occurrences starting 11/17/2023 until 12/16/2024 [facility] Work Phone: Comment on above: 1 Occurrences starti ng 11/17/2023 until 12/16/2024 [facility] Immunizations Immunization Date Immunization Notes Care Provider [facility] 05-03-2023 tetanus and diphther ia toxoids, adsorbed, preservative free, for adult use (5 Lf of tetanus toxoid and 2 Lf of diphtheria toxoid) Yaakov Richter MD Work Phone: [facility] 04-02-2021 COVID-19 vaccine, ag e 12+ yr (Effcon MXR-BIONTECH - PURPLE TOP) Screen [facility] 04-02-2021 influenza (aIIV4) vaccine, age 65+ yr, quadrivalent, PF (FLUAD QUAD) Yaakov Richter MD Work Phone: [facility] 04-02-2021 influenza, seasonal, injectable Screen [facility] 04-02-2021 influenza virus vacc ine, unspecified formulation Screen [facility] 09-13-2020 Covid (Pfizer) [facility] 08-23-2020 COVID-19 vaccine, ag e 12+ yr (PFIZER-BIONTECH - PURPLE TOP) Screen [facility] 02-28-2020 influenza, high-dose , quadrivalent vaccine (FLUZONE HIGH DOSE QUADRIVALENT) Screen [facility] 02-28-2020 pneumococcal polysaccharide vaccine, 23 valent Screen [facility] 03-28-2019 influenza, high dose seasonal, preservative-free Screen [facility] 04-18-2017 influenza, seasonal, injectable [facility] 03-18-2016 influenza, high dose seasonal, preservative-free Screen [facility] 04-06-2015 influenza, high dose seasonal, preservative-free Screen [facility] 04-06-2015 pneumococcal conjuga te vaccine, 13 valent Screen [facility] Payers Date Payer Category Payer Self-pay [id number] 2023 Private Health Insurance [id number] 2021 Medicare HUMANA MEDICARE HUMANA MEDICARE PPO [id number] 2021-Present [phone] [place] [address] PPO [id number] 2021 Medicare HUMANA MEDICARE HUMANA MEDICARE PPO [id number] 2021-Present [phone] [place] [address] [id number] 2021 Medicare (Managed Care) HUMANA M EDICARE [id number] 2021 Private Health Insurance [id number] 2014 Medicaid MEDICAID [id number] 1950 Unknown [id number] 1950 Unknown [id number] Medicare MEDICARE PART A B [id number] Unknown [id number] Unknown [id number] Unknown [id number] Social History Date Type Detail Facility Start: 08-27-2012 End: 08-28-2023 Tobacco smoking status NHIS Never smoked tobacco [facility] Work Phone: Start: 07-29-2021 End: 05-10-2024 Alcohol intake Current non-drinker of alcohol (finding) [facility] Start: 1950 Sex Assigned At Not on file C [facility] Start: 08-23-2021 End: 05-16-2022 Exposure to SARS-CoV-2 (event) Not sure [facility] Start: 08-27-2012 End: 02-07-2022 Tobacco use and exposure Smokeless tobacco non-user [facility] Start: 02-18-2022 End: 08-28-2023 Tobacco smoking status NHIS Unknown if ever smoked [facility] Start: 01-23-2020 None [facility] Start: 01-23-2020 Alone [facility] Start: 1950 Sex Assigned At Female W [facility] Start: 02-21-2022 End: 03-03-2022 Exposure to SARS-CoV-2 (event) Yes [facility] Work Phone: Start: 11-26-2022 End: 09-07-2023 History of Social function [facility] Work Phone: Start: 11-26-2022 End: 09-07-2023 Tobacco use panel [facility] Work Phone: Adult Depression Screening Assessment 6 [facility] Work Phone: Functional Status Date Assessment Result Facility 08-28-2023 Functional Status ID band on, Call device within reach, Bed in low position, Wheels locked, Safety level maintained [facility] 05-07-2023 Functional Status Resting [facility] 09-16-2018 Are you deaf, or do you have serious difficulty hearing No 09/16/2018 5:47 PM EDT Xavier Poon III, MD [facility] 09-16-2018 Are you blind, or do you have serious difficulty seeing, even when wearing glasses No 09/16/2018 5:47 PM EDT Xavier Poon III, MD [facility] 09-16-2018 Do you have serious difficulty walking or climbing stairs No 09/16/2018 5:47 PM EDT Xavier Poon III, MD [facility] 09-16-2018 Do you have difficul ty dressing or bathing No 09/16/2018 5:47 PM RONALDT Xavier Poon III, MD [facility] 09-16-2018 Because of a physica l, mental, or emotional condition, do you have difficulty doing errands alone such as visiting a physician's office or shopping No 09/16/2018 5:47 PM RONALDT Xavier Poon III, MD [facility] Mental Status Date Assessment Result Facility 08-28-2023 Mental Status Oriented x [facility] 05-07-2023 Mental Status Oriented x 4 [facility] 09-16-2018 Because of a physica l, mental, or emotional condition, do you have serious difficulty concentrating, remembering, or making decisions No 09/16/2018 5:47 PM Xavier Sauceda III, MD No [facility] Clinical Notes 08-09-2014 to 12-20-2024 Nicki Conley - 12/20/2024 9:23 AM EDNicki Pedro - 12/07/2024 10:42 AM Angelica James - 11/30/2024 11:46 AM EDTPatient Colin Ochoa [address] - 09/22/2024 9:50 AM EDT Note Date & Type Note Facility 12-20-2024 Note HNO ID: [id number] Author: ?, ?, ? Service: ? Author Type: ? Type: Progress Notes Filed: 12/20/2024 09:23 Note Text: 3rd attempt LVM and mailed letter [facility] 12-20-2024 History of Present illness Narrative 3rd attempt LVM and mailed letter 2nd attempt LVM to schedule colonoscopy 1'st attempt to schedule est well visit and open access colonoscopy. LVM to return call documented in this encounter [facility] 12-07-2024 Note HNO ID: [id number] Author: ?, ?, ? Service: ? Author Type: ? Type: Progress Notes Filed: 12/20/2024 09:23 Note Text: 2nd attempt LVM to schedule colonoscopy [facility] 11-30-2024 Note HNO ID: [id number] Author: ?, ?, ? Service: ? Author Type: ? Type: Progress Notes Filed: 12/20/2024 09:23 Note Text: 1'st attempt to schedule est well visit and open access colonoscopy. LVM to return call [facility] 11-29-2024 Instructions Lisa Whalen RN - [...] am on dialysis? A: Please consult your cash register balancer prior to scheduling to get instructions pertinent [...] inadequate prep quality. documented in this encounter [facility] 11-29-2024 Note Patient Outreach ( [facility]) ILENE SHAW ([id number]) 1950 F Date Time Provider Department 11/29/24 [...] patients buy sugar-free, (more content not included)... [facility] 09-22-2024 History of Present illness Narrative [...] PATIENT PRESENTS WITH AN IMPLANTABLE OR ATTACHED WELFARE ANALYST: No RADIOLOGY DEPARTMENT: Mammography PERIPHERAL IV DATA: Not applicable SIGNED BY: Natalee Peterson September 22, 2024 10:33 AM documented in this encounter [facility] 09-22-2024 Note HNO ID: [id number] Author: COLIN OZUNA Mammo Tech Service: ? Author Type: Resp Ther Type: Progress Notes Filed: 09/22/2024 10:33 Note [...] PATIENT PRESENTS WITH AN IMPLANTABLE OR ATTACHED WELFARE ANALYST: No RADIOLOGY DEPARTMENT: Mammography PERIPHERAL IV DATA: Not applicable SIGNED BY: Colin Ozuna [facility] September 22, 2024 10:33 AM [facility] 09-14-2024 Telephone encounter Note Order placed Kelle Peter APRN.CNP [facility] 09-14-2024 Miscellaneous Notes Order placed Kelle Peter APRN.CNP Patient calling in for her yearly mammogram with el. Patient is scheduled, she just needs an order. Please review Soraya Pena September 14, 2024 1:03 PM documented in this encounter [facility] 09-14-2024 Telephone encounter Note Patient calling in for her yearly mammogram with el. Patient is scheduled, she just needs an order. Please review Soraya Pena September 14, 2024 1:03 PM [facility] 05-11-2024 Telephone encounter Note Patient given results and verbalized understanding of instructions given. Kassidy Dial LPN [facility] 05-11-2024 Miscellaneous Notes Patient given results [...] if no improvement. documented in this encounter [facility] 05-11-2024 Telephone encounter Note Left message for patient to return call for results.Montse Ramirez LPN [facility] 05-11-2024 Telephone encounter Note Please call and let patient know her STD testing was negative. She did test positive for yeast. I did send in medication for this. Urine culture is still pending will call as needed. Continue antibiotic as well. Follow-up with PCP if no improvement. [facility] 05-10-2024 Note HNO ID: [id number] Author: TORREY DAWSON PA-C Service: ? Author Type: Physician Roll Off Driver Type: Progress Notes Filed: 05/10/2024 14:21 Note Text: This note was created using Huayue Digitalriter. Subjective Ilene Shaw is a 74 year [...] Exam Vitals reviewed. Exam conducted with a musical string maker present (Kassidy ARTHUR). Constitutional: Appearance: Normal appearance. [...] Mycolog cream for irritation. Torrey Dawson PA-C [facility] 05-10-2024 History of Present illness Narrative This note was created using Hu[employer]ue Digital[employer]. Subjective Ilene Shaw is a 74 year [...] Exam Vitals reviewed. Exam conducted with a musical string maker present (Kassidy ARTHUR). Constitutional: Appearance: Normal appearance. [...] Torrey Dawson PA-C documented in this encounter [facility] 11-18-2023 Telephone encounter Note Patient given results and verbalized understanding of instructions given. Norma Tatum MA [facility] 11-18-2023 Miscellaneous Notes Patient given results and verbalized understanding of instructions given. Norma Tatum MA CXR negative. Please notify patient. Complete ATB and follow up with PCP as needed. Please advise patient. documented in this encounter [facility] 11-18-2023 Telephone encounter Note CXR negative. Please notify patient. Complete ATB and follow up with PCP as needed. Please advise patient. [facility] Work Phone: 11-18-2023 History of Present [...] PATIENT PRESENTS WITH AN IMPLANTABLE OR ATTACHED WELFARE ANALYST: No RADIOLOGY DEPARTMENT: General X-ray: Exam(s) Completed: Chest X-Ray PERIPHERAL IV DATA: Not applicable SIGNED BY: RT Ravi(R) November 18, 2023 10:45 AM documented in this encounter [facility] 11-17-2023 History of Present illness Narrative [...] analgesia. - Discussed expected course of illness Ealine Lemus APRN.RAILROAD TRACK REPAIR SUPERVISOR documented in this encounter [facility] 11-17-2023 Instructions Elaine Lemus APRN.RAILROAD TRACK REPAIR SUPERVISOR - 11/17/2023 6:40 PM EDT ASSESSMENT/PLAN: 1. [...] of proper treatment. documented in this encounter [facility] 10-22-2023 Telephone encounter Note Patient returned call, notified of results, states symptoms are improving with cream and will follow up for any persistent symptoms. Julieth Houston MA [facility] 10-22-2023 Miscellaneous Notes Patient returned call, [...] will order diflucan. documented in this encounter [facility] 10-22-2023 Telephone encounter Note Left VM instructing patient to return call to discuss. Julieth Houston MA [facility] 10-22-2023 Telephone encounter Note Please notify labs were positive for yeast. The mycolog cream ordered may be sufficient to treat. Ask how s/s area. If s/s persisting I will order diflucan. [facility] Work Phone: 10-21-2023 History of Present illness Narrative This note was created using Huayue Digitalriter. Subjective Ilene Shaw is a 73 year [...] BACTERIAL VAGINOSIS NAAT - ALBA/TRICHOMONAS NAAT Torrey Dawson PA-C documented in this encounter [facility] 09-30-2023 History of Present illness Narrative [...] PATIENT PRESENTS WITH AN IMPLANTABLE OR ATTACHED WELFARE ANALYST: No RADIOLOGY DEPARTMENT: Mammography PERIPHERAL IV DATA: Not applicable SIGNED BY: Nory Malino Maciel September 30, 2023 2:39 PM documented in this encounter [facility] 09-07-2023 History of Present illness Narrative [...] PATIENT PRESENTS WITH AN IMPLANTABLE OR ATTACHED WELFARE ANALYST: No RADIOLOGY DEPARTMENT: Mammography PERIPHERAL IV DATA: Not applicable SIGNED BY: Hannah Kohler [facility] September 07, 2023 1:50 PM documented in this encounter [facility] 09-04-2023 Miscellaneous Notes The order is already filed, do I need to re-enter it? Can you release the mammogram order? Pt scheduled with us 09/06. Thanks a million documented in this encounter [facility] 09-01-2023 Miscellaneous Notes Mammo already scheduled [...] Micaela Beaulieu LPN documented in this encounter [facility] 08-31-2023 Miscellaneous Notes Detailed message left on patient's identified VM. Bonnie Ibarra LPN Pt. can have her yearly breast exam/mammogram ordered by PCP or ENTERPRISE ACCOUNT MANAGER at this point. Follow up here as needed. Thank you. Zofia Donnelly APRN.RAILROAD TRACK REPAIR SUPERVISOR Patient has not been seen here since 10/28/2021. She cancelled her OV 08/19/2022, and never rescheduled. Bonnie Ibarra LPN Patient is calling to schedule mammography please place orders and advise if patient also needs a follow up with you. documented in this encounter [facility] 08-28-2023 Hospital Discharge instructions Patient Education [...] bleeding from other parts of your body [id number] [employer]. [address] [place] [address], [place] [address]. All rights reserved. This information is not intended as a substitute for professional medical care. Always follow your healthcare professional's instructions. Follow Up Care 08/28/2023 18:24:22 With:JENNIFER SANTOS MD Address: [address] [place] [address]- [facility]:2-[facility] Note Discharge Instructions Thank you for allowing [facility] to assist you with your healthcare needs. [...] MD When Within 2-4 days Where: [address] [place] [address]- Allergies ampicillin predniSONE Medications Please ask [...] bleeding from other parts of your body [phone] [employer] [address] [place] [address]. All rights reserved. This information is not intended as a substitute for professional medical care. Always follow your healthcare professional's instructions. Additional Information VACCINATE! IT SAVES LIVES! Members of the community who have not yet received the COVID-19 vaccine and would like to receive it can visit one of [facility] vaccine clinics. There are many vaccine clinic locations within the [facility]. For locations and available times, please visit [email or web address] [email or web address] It is important to note that some COVID mobile vaccine clinics are held outdoors and may be canceled in rainy or stormy conditions. To learn more about pediatric vaccinations (ages 5-11), we invite you to visit the [facility] webpage. [email or web address]://[email or web address] [email or web address]-Ibwbqruonvl-[email or web address] ugcp-[email or web address].html To learn more about the COVID-19 vaccine, we invite you to visit the CDC website for a list of frequently asked questions. https://www.cdc.gov/coronavirus/2 019-ncov/vaccines/faq.html [facility] Patient Portal Access Instructions: Stay connected with your healthcare team and access your personal medical information anytime with the [employer] Patient Portal. If you would like a full copy of your medical records please contact the [facility] Medical Records Department Thursday through Thursday between 8a.m. and 4:30p.m. Please follow the directions below to access the portal: 1.Access the email account you provided upon registration to the [facility].2.Look for an invitation email from [facility].3.Open the email and access the invitation link: Accept Invitation to [facility]4.Fill in the required ness to create your account. Sign into www.[employer] with your username and password that you [...] you will allow to register on the [employer] Patient Portal for access to your information. You can also access the [employer] Patient Portal on the [employer] inez. Simply click on Health Records under Health Data and then click on the [employer] logo. HOW TO SAFELY DISPOSE OF PRESCRIPTION [...] Call your local pharmacy or go to [email or web address] to find one close to you.3.Make use of household items: Use cat litter or old coffee grounds to dispose medications if other options are not available. Mix your drugs with these household products, seal them in an airtight container and throw it into the garbage. Call [facility]: [phone] to be sure your drugs can be [...] aware that I should contact my doctor. 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 Patient presents with complaints of right eye redness and blurred vision Denies trauma or injury Denies itching Denies pain Given her presentation at 1630 on a Thursday night with visual disturbances, she requires higher level of care. [facility] without appts for the day Referred to ED documented in this encounter [facility] 05-22-2023 History of Present illness Narrative This note was created using NoteWriter. Subjective Patient presents with: ER F/U: [facility] 05/07/23- facial swelling PCP MD Ilene Chisholmivania is a 73 year old female who developed facial and upper lip swelling . She went to the [facility] ER, and was treated with IV decadron, [...] Rolf Burger MD documented in this encounter [facility] 05-21-2023 History of Present illness Narrative Psychiatric Triage Note: Patient presents to the [facility] with complaint of lip swelling. She had been treated in the ER for lip and face swelling 05/07/23 with medrol and benadryl. She had left lip swelling returned yesterday. It is improving today. No shortness of breath or wheezing. Scheduled with internal medicine for ER follow up today. documented in this encounter [facility] 05-08-2023 Hospital Discharge instructions Patient Education [...] products Chemicals or dyes in clothing, linen, attending physician, hair dyes, soaps, iodine Many viruses and [...] damage the skin. Oral diphenhydramine is an nvwe-zmq-aqizfmy antihistamine sold at pharmacy and grocery stores. [...] hours, or as directed by your provider 9780-1353 [employer]. [address] [place] [address]. All rights reserved. This information is not intended as a substitute for professional medical care. Always follow your healthcare professional's instructions. Follow Up Care 05/07/2023 22:34:33 With:JENNIFER SANTOS MD Address: [address] [place] [address]- When:2-4 days [facility]23 Note Discharge Instructions Thank you for allowing [facility] to assist you with your healthcare needs. [...] MD When Within 2-4 days Where: [address] [place] [address]- Allergies ampicillin predniSONE Medications Please ask [...] expected to produce life threatening symptoms. However, longterm use of high steroid doses can lead [...] may report side effects to FDA at 3-045-MVU-6651. What other drugs will affect methylprednisolone? Other drugs may interact with methylprednisolone, including prescription and osyi-lyc-fzrfonc medicines, vitamins, and herbal products. Tell each [...] to ensure that the information provided by [employer]. ('[employer]') is accurate, up-to-date, and complete, but no guarantee is made to that effect. Drug information contained herein may be time sensitive. Seer information has been compiled for use by healthcare practitioners and consumers in the [place] and therefore Seer does not warrant that uses outside of the [place] are appropriate, unless specifically indicated otherwise. [employer] drug information does not endorse drugs, diagnose patients or recommend therapy. [employer] drug information is an informational resource designed [...] effective or appropriate for any given patient. Seer does not assume any responsibility for any aspect of healthcare administered with the aid of information Seer provides. The information contained herein is not intended to cover all possible uses, directions, precautions, warnings, drug interactions, allergic reactions, or adverse effects. If you have questions about the drugs you are taking, check with your doctor, nurse or pharmacist. Copyright 9663-1313 [employer]. Version: 9.01. Revision Date: 02/11/2017. Education Materials [...] products Chemicals or dyes in clothing, linen, attending physician, hair dyes, soaps, iodine Many viruses and [...] damage the skin. Oral diphenhydramine is an cizs-rpo-mnnhhle antihistamine sold at pharmacy and grocery stores. [...] hours, or as directed by your provider [phone] [employer]. [address] [place] [address], [place] [address]. All rights reserved. This information is not intended as a substitute for professional medical care. Always follow your healthcare professional's instructions. Additional Information VACCINATE! IT SAVES LIVES! Members of the community who have not yet received the COVID-19 vaccine and would like to receive it can visit one of [facility] vaccine clinics. There are many vaccine clinic locations within the [facility]. For locations and available times, please visit [email or web address] [email or web address] ov/. It is important to note that some COVID mobile vaccine clinics are held outdoors and may be canceled in rainy or stormy conditions. To learn more about pediatric vaccinations (ages 5-11), we invite you to visit the [employer] webpage. https://www.[email or web address]/pa ges/[email or web address]-Ktpza-Ksswwvmsynv-Freque hqav-Qfoff-Iylvaibfr.html To learn more about the COVID-19 vaccine, we invite you to visit the CDC website for a list of frequently asked questions. https://www.cdc.gov/coronavirus/2 019-ncov/vaccines/faq.html [facility] Patient Portal Access Instructions: Stay connected with your healthcare team and access your personal medical information anytime with the [employer] Patient Portal. If you would like a full copy of your medical records please contact the [facility] Medical Records Department Thursday through Thursday between 8a.m. and 4:30p.m. Please follow the directions below to access the portal: 1.Access the email account you provided upon registration to the hospital.2.Look for an invitation email from [facility].3.Open the email and access the invitation link: Accept Invitation to [facility]4.Fill in the required ness to create your account. Sign into www.[employer] with your username and password that you [...] you will allow to register on the [facility] Patient Portal for access to your information. You can also access the [employer] Patient Portal on the [employer] inez. Simply click on Health Records under Health Data and then click on the Vessel logo. HOW TO SAFELY DISPOSE OF PRESCRIPTION [...] Call your local pharmacy or go to [email or web address] to find one close to you.3.Make use of household items: Use cat litter or old coffee grounds to dispose medications if other options are not available. Mix your drugs with these household products, seal them in an airtight container and throw it into the garbage. Call [facility]: [phone] to be sure your drugs can be [...] aware that I should contact my doctor. 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 N/A Reason for Outreach Care Gap or Scheduling/Wellness visits Payer: Payor: [employer] MEDICARE / Plan: [employer] MEDICARE PPO / Product Type: PPO / [...] 2022 1:55 PM documented in this encounter [facility] 09-04-2022 Miscellaneous Notes Message left on identified voicemail of normal mamm results, keep f/u appt. On Thursday as scheduled. Deisy Pratt LPN Please inform pt. that her mammogram looks good. Follow up as scheduled. Thank you. Zofia Donnelly APRN.CNP documented in this encounter [facility] 09-04-2022 Miscellaneous Notes September 05, 2022 PID: [id number] Ilene Shaw [address] [place] [address] Dear Marcellusivania, We are pleased to inform [...] report will be kept on file at [facility] as part of your permanent medical record and are available for your continuing care. Thank you for allowing us to help in meeting your health care needs. Sincerely, Dr. Garcia Interpreting Radiologist [facility] (Normal over 40) documented in this encounter [facility] 08-19-2022 Miscellaneous Notes Spoke with pt and scheduled as directed Done. Needs OV a few days after mammogram. Thank you. Zofia Donnelly APRN.CNP Requesting screening mammogram order for appointment on 09/03/22. documented in this encounter [facility] 06-13-2022 Miscellaneous Notes Noted. Kelle Peter APRN.CNP Pt called and is notified of providers message and instructions. Pt voices understanding. She states she will stay on the Pradaxa for now. Pt was asked if she would like to schedule an appointment and she states she is going with her daughter to [place] to get a CT. She states she [...] sleep at night. Protocols used: Medication Question [id number] documented in this encounter [facility] 05-16-2022 History of Present illness Narrative [...] the past 2 weeks, was working in [employer]. Dr Beck wonderful note has chronological history [...] Jennifer Santos MD documented in this encounter [facility] 03-18-2022 Miscellaneous Notes Message left making patient aware on verified VM. Instructed to call office back if has any further issues. Nicki Soto LPN Rx sent as requested. Patient in to office and requested RX be sent to [address] [facility] here in [place]. 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 Please call and advise. documented in this encounter [facility] 03-17-2022 History of Present illness Narrative [...] Arpit Beck MD documented in this encounter [facility] 03-17-2022 Miscellaneous Notes Reviewed. Patient reports [...] appt for evaluation. documented in this encounter [facility] 03-15-2022 Miscellaneous Notes 1.Pt calling for a refill of her new rx of xarelto 20 mg daily to the pharmacy. 2. Pt complaining of hand swelling. She can't take prednisone. Is there something else csh can take? documented in this encounter [facility] 03-03-2022 History of Present illness Narrative [...] to her lips. 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 She still takes her lexapro and gets it from [place]. She can takes the xanax once at [...] Jennifer Santos MD documented in this encounter [facility] 02-07-2022 Miscellaneous Notes I called and discussed the ultrasound with the patient showing the superficial vein thrombosis in the greater saphenous and varicose vein. Discussed warm compresses, NSAIDs. I did have her make a follow-up appointment next week with PCP. Patient agreeable. documented in this encounter [facility] 02-07-2022 History of Present illness Narrative This note was created using Huayue Digitalriter. Subjective Ilene Shaw is a 71 year [...] Torrey Dawson PA-C documented in this encounter [facility] 01-25-2022 Instructions Zee León APRN.LACY - [...] BACTERIAL VAGINOSIS AMPLIFICATION documented in this encounter [facility] 01-25-2022 History of Present illness Narrative Subjective The history is provided by the patient. No educational speech language clinician was used. ILAN Shaw is a 71 [...] have confirmed and edited as necessary, the [facility] Review of Systems Constitutional: Negative for [...] Zee León APRN.LACY documented in this encounter [facility] 12-16-2021 History of Present illness Narrative FOLLOW UP VISIT - ABSCESS NAME: Ilene [facility] NO.: [id number] DATE OF SERVICE: 12/13/2021 : 1950 REFERRING [...] conservatively with Bactrim after going to the [facility]. She was seen by Zofia Donnelly [...] which included preparing to see the patient, [id number] patient care, completing clinical documentation, obtaining and/or reviewing separately obtained history, performing a medically appropriate examination and counseling and educating the patient/family/caregiver. Natasha Lester PA-C documented in this encounter [facility] 12-13-2021 Instructions Natasha Lester PA-C - 12/13/2021 1:49 PM EDT -Hibiclens wash daily over the next 2 weeks -May apply small amount of Bactroban -Follow up if any recurrent lumps or pain documented in this encounter [facility] 12-03-2021 History of Present illness Narrative [...] conservatively with Bactrim after going to the [facility]. She was seen by Zofia Donnelly [...] 10 to 12 days with my physician doctor's assistant to make sure that we have [...] Muniz III, MD documented in this encounter [facility] 12-03-2021 Nurse Note REVIEW OF SYSTEMS: [...] Bahman Hutchison LPN documented in this encounter [facility] 11-06-2021 Miscellaneous Notes Scheduled by another PSR. Patient informed of Zofia's response, stated understanding. Please contact patient to schedule appointment with Dr. Muniz, thank you. Kailyn Riley RN Noted. Please schedule with Dr. Muniz. Thank you. Zofia Donnelly APRN.LACY Patient stated [...] Kailyn Riley RN documented in this encounter [facility] 10-28-2021 History of Present illness Narrative Chief Complaint Patient presents with: Established Patient HPI: Ilene Shaw is a 71 year old female who presents here today for follow up breast cancer. Per Dr. Weller's previous note: H/o stage IC, pT1c, pN0, ER/NH positive HER-2 non-overexpressed, right breast cancer, status [...] 95% and HER-2/edmond is 1+. Stage I, [id number]. Patient started her adjuvant radiation therapy a [...] ICD10: C50.911 (primary diagnosis) Stage I c, ER/NH positive HER-2 non- overexpressed breast cancer. - [...] Zofia Donnelly APRN.LACY documented in this encounter [facility] 09-02-2021 History of Present illness Narrative [...] 2021 10:40 AM documented in this encounter [facility] 09-02-2021 Miscellaneous Notes Please inform pt. that her mammogram is fine. Pt. needs OV in the next few weeks. Thank you. Zofia Donnelly APRN.RAILROAD TRACK REPAIR SUPERVISOR documented in this encounter [facility] 05-31-2021 Miscellaneous Notes Patient calls to report she continues to take Bactrim DS for lump under arm but now she is developing a yeast infection. States yeast infection started yesterday and symptoms are worsening. Patient asking for prescription to treat yeast infection be sent to [facility]. Please review and advise, Sheree Ferrer RN documented in this encounter [facility] 03-12-2015 History of Past i llness Narrative Problem Noted Date Resolved Date Breast cancer, right 03/12/2015 02/11/2022 Breast cancer 08/14/2014 02/11/2022 Lump or mass in breast 08/09/2014 9 documented as of this encounter (statuses as of 03/03/2022) [address]28-2015 History of Past illness Narrative* Problem Noted Date Resolved Date Breast cancer, right 03/12/2015 02/11/2022 Breast cancer 08/14/2014 02/11/2022 Lump or mass in breast 08/09/2014 9 documented as of this encounter (statuses as of 03/15/2022) [address]28-2015 History of Past illness Narrative* Problem Noted Date Resolved Date Breast cancer, right 03/12/2015 02/11/2022 Breast cancer 08/14/2014 02/11/2022 Lump or mass in breast 08/09/2014 9 documented as of this encounter (statuses as of 03/18/2022) [place] [id number] History of Past illness Narrative* Problem Noted Date Resolved Date Breast cancer, right 03/12/2015 02/11/2022 Breast cancer 08/14/2014 02/11/2022 Lump or mass in breast 08/09/2014 9 documented as of this encounter (statuses as of 03/18/2022) [place] [id number] History of Past illness Narrative* Problem Noted Date Resolved Date Breast cancer, right 03/12/2015 02/11/2022 Breast cancer 08/14/2014 02/11/2022 Lump or mass in breast 08/09/2014 9 documented as of this encounter (statuses as of 05/16/2022) [address]28-2015 History of Past illness Narrative* Problem Noted Date Resolved Date Breast cancer, right 03/12/2015 02/11/2022 Breast cancer 08/14/2014 02/11/2022 Lump or mass in breast 08/09/2014 9 documented as of this encounter (statuses as of 06/18/2022) [address]28[address]2015 History of Past illness Narrative* Problem Noted Date Resolved Date Breast cancer, right 03/12/2015 02/11/2022 Breast cancer 08/14/2014 02/11/2022 Lump or mass in breast 08/09/2014 9 documented as of this encounter (statuses as of 09/04/2022) [address]28-2015 History of Past illness Narrative* Problem Noted Date Resolved Date Breast cancer, right 03/12/2015 02/11/2022 Breast cancer 08/14/2014 02/11/2022 Lump or mass in breast 08/09/2014 9 documented as of this encounter (statuses as of 09/06/2022) [address]28-2015 History of Past illness Narrative* Problem Noted Date Resolved Date Breast cancer, right 03/12/2015 02/11/2022 Breast cancer 08/14/2014 02/11/2022 Lump or mass in breast 08/09/2014 9 documented as of this encounter (statuses as of 10/09/2022) [address]28-2015 History of Past illness Narrative* Problem Noted Date Resolved Date Breast cancer, right 03/12/2015 02/11/2022 Breast cancer 08/14/2014 02/11/2022 Lump or mass in breast 08/09/2014 9 documented as of this encounter (statuses as of 11/17/2022) [address]28-2015 History of Past illness Narrative* Problem Noted Date Diagnosed Date Resolved Date Breast cancer, right 03/12/2015 022 Breast cancer 08/14/2014 02/11/2022 Lump or mass in breast 08/09/201408/23 documented as of this encounter (statuses as of 01/28/2023) [address]28-2015 History of Past illness Narrative* Problem Noted Date Diagnosed Date Resolved Date Breast cancer, right 03/12/2015 022 Breast cancer 08/14/2014 02/11/2022 Lump or mass in breast 08/09/201408/23 documented as of this encounter (statuses as of 04/19/2023) [address]28-2015 History of Past illness Narrative* Problem Noted Date Diagnosed Date Resolved Date Breast cancer, right 03/12/2015 022 Breast cancer 08/14/2014 02/11/2022 Lump or mass in breast 08/09/201408/23 documented as of this encounter (statuses as of 05/21/2023) [address]28-2015 History of Past illness Narrative* Problem Noted Date Diagnosed Date Resolved Date Breast cancer, right 03/12/2015 022 Breast cancer 08/14/2014 02/11/2022 Lump or mass in breast 08/09/201408/23 documented as of this encounter (statuses as of 05/22/2023) [address]28-2015 History of Past illness Narrative* Problem Noted Date Diagnosed Date Resolved Date Breast cancer, right 03/12/2015 022 Breast cancer 08/14/2014 02/11/2022 Lump or mass in breast 08/09/201408/23 documented as of this encounter (statuses as of 08/28/2023) [address]28-2015 History of Past illness Narrative* Problem Noted Date Diagnosed Date Resolved Date Breast cancer, right 03/12/2015 022 Breast cancer 08/14/2014 02/11/2022 Lump or mass in breast 08/09/201408/23 documented as of this encounter (statuses as of 08/31/2023) [place] [id number] History of Past illness Narrative* Problem Noted Date Diagnosed Date Resolved Date Breast cancer, right 03/12/2015 022 Breast cancer 08/14/2014 02/11/2022 Lump or mass in breast 08/09/201408/23 documented as of this encounter (statuses as of 09/01/2023) [address]28-2015 History of Past illness Narrative* Problem Noted Date Diagnosed Date Resolved Date Breast cancer, right 03/12/2015 022 Breast cancer 08/14/2014 02/11/2022 Lump or mass in breast 08/09/201408/23 documented as of this encounter (statuses as of 09/07/2023) [address]28-2015 History of Past illness Narrative* Problem Noted Date Diagnosed Date Resolved Date Breast cancer, right 03/12/2015 022 Breast cancer 08/14/2014 02/11/2022 Lump or mass in breast 08/09/201408/23 documented as of this encounter (statuses as of 09/08/2023) [address] History of Past illness Narrative* Problem Noted Date Diagnosed Date Resolved Date Breast cancer, right 03/12/2015 022 Breast cancer 08/14/2014 02/11/2022 Lump or mass in breast 08/09/201408/23 documented as of this encounter (statuses as of 10/01/2023) [facility] History of Past illness Narrative* Problem Noted Date Diagnosed Date Resolved Date Breast cancer, right 03/12/2015 022 Breast cancer 08/14/2014 02/11/2022 Lump or mass in breast 08/09/201408/23 documented as of this encounter (statuses as of 10/01/2023) [facility] History of Past illness Narrative* Problem Noted Date Resolved Date Lump or mass in breast 08/09/2014 9 documented as of this encounter (statuses as of 09/03/2021) [facility] History of Past illness Narrative* Problem Noted Date Resolved Date Lump or mass in breast 08/09/2014 9 documented as of this encounter (statuses as of 10/30/2021) [facility] History of Past illness Narrative* Problem Noted Date Resolved Date Lump or mass in breast 08/09/2014 9 documented as of this encounter (statuses as of 11/06/2021) [facility] History of Past illness Narrative* Problem Noted Date Resolved Date Lump or mass in breast 08/09/2014 9 documented as of this encounter (statuses as of 12/03/2021) [facility] History of Past illness Narrative* Problem Noted Date Resolved Date Lump or mass in breast 08/09/2014 9 documented as of this encounter (statuses as of 12/17/2021) [address]25-2015 History of Past illness Narrative* Problem Noted Date Resolved Date Lump or mass in breast 08/09/2014 9 documented as of this encounter (statuses as of 01/25/2022) [facility] History of Past illness Narrative* Problem Noted Date Resolved Date Lump or mass in breast 08/09/2014 9 documented as of this encounter (statuses as of 01/30/2022) [facility] History of Past illness Narrative* Problem Noted Date Resolved Date Lump or mass in breast 08/09/2014 9 documented as of this encounter (statuses as of 02/07/2022) [facility] History of Past illness Narrative* Problem Noted Date Resolved Date Lump or mass in breast 08/09/2014 9 documented as of this encounter (statuses as of 02/07/2022) [facility] Author Venkat Mustafa [facility] May 27, 2023 1:39am Note Date/Time May 27, 2023 12:45am [facility] Medical Records Department [address] [place] [address] Emergency Department Summary 05/27/23 MR#: [id number] Acct: [id number] Name: ILENE SHAW Rep #:[id number] 4 : 1950 73 From: Venkat Mustafa [...] she states that took care of it. [facility] Medical History Adult-onset Still's disease Anxiety Bowel [...] your Primary Care Provider. Call [facility] ([phone]) or report to the closest Emergency Room. Call 911 if necessary. 05/27/23 0139 <Electronically signed by Venkat Mustafa MD> Cosigner Signature (if applicable): CC: Dr. Jennifer Santos MD ~ Signed [facility] Work Phone: Evaluation + Plan note No data available for this section [facility] Evaluation note* Diagnosis 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) Encounter for screening mammogram for high-risk patient [facility] Diagnosis 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)- Primary Cellulitis of axillary region Cellulitis and abscess of upper arm and forearm [facility] Cutaneous abscess of right axilla- Primary Cellulitis and abscess of upper arm and forearm [facility] Diagnosis Axillary abscess- Primary Cellulitis and abscess of upper arm and forearm [facility] Diagnosis Urinary frequency- Primary Elevated blood pressure reading without diagnosis of hypertension Acute vaginitis Vaginitis and vulvovaginitis, unspecified [facility] Diagnosis Left leg swelling- Primary Swelling of limb [facility] noteNo assessment information availableWOhioHealth [facility] Work Phone: Evaluation note* Diagnosis Anxiety- Primary Anxiety state, unspecified DVT (deep vein thrombosis) in Deep phlebothrombosis, antepartum, unspecified as to episode of care Hyperlipidemia with target low density lipoprotein (LDL) cholesterol less than 130 mg/dL [facility]* Diagnosis Recurrent deep vein thrombosis (DVT) of lower extremity, unspecified laterality (HCC)- Primary Allergy to antithrombotic medication [facility]* Diagnosis Recurrent deep vein thrombosis (DVT) of lower extremity, unspecified laterality (HCC) [facility]* Diagnosis Recurrent deep vein thrombosis (DVT) (HCC)- Primary Pedal edema Edema Other acute sinusitis, recurrence not specified [facility]* Diagnosis 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)- Primary Personal history of breast cancer Personal history of malignant neoplasm of breast Encounter for screening mammogram for malignant neoplasm of breast Other screening mammogram [facility] Diagnosis 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) Personal history of breast cancer Personal history of malignant neoplasm of breast Encounter for screening mammogram for malignant neoplasm of breast Other screening [facility] Lip swelling- Primary Diseases of lips [facility] Diagnosis Angioedema of lips, subsequent encounter- Primary [facility] Diagnosis Blurred vision, right eye- Primary Other specified visual disturbances [facility] Diagnosis ER+ (estrogen receptor positive status)- Primary Estrogen receptor positive status [ER+] Encounter for screening mammogram for breast cancer documented in this encounter [facility] note* Diagnosis ER+ (estrogen receptor positive status) Estrogen receptor positive status [ER+] Encounter for screening mammogram for breast cancer documented in this encounter [facility] note* Diagnosis Abnormal mammogram of left breast documented in this encounter [facility] note* Diagnosis Abnormal mammogram of left breast documented in this encounter [facility] note* Diagnosis Vaginal itching- Primary Pruritus of genital organs documented in this encounter [facility] note* Diagnosis Sinobronchitis- Primary Unspecified sinusitis (chronic) Acute cough documented in this encounter [facility] note* Diagnosis Acute cough documented in this encounter [facility] note* Diagnosis Encounter for routine adult [...] disorder of vagina documented in this encounter [facility] note* Diagnosis Encounter for routine adult [...] for breast cancer documented in this encounter [facility] note* Diagnosis Encounter for routine adult [...] for breast cancer [facility] Diagnosis Encounter for routine adult [...] malignant neoplasms, colon [facility] instructions Additional Instructions Since you were [...] breathing or swallowing, return to the ER immediately.[facility] Work Phone: Reason for referral (narrative)* Outpatient Procedure (Urgent) - Closed Specialty Diagnoses / Procedures Referred By Amy cherry [facility] Diagnoses Left leg swelling Procedures US LEG VEIN DVT UNL VAS LAB DUP-SCAN XTR VEINS UNILATERAL/LIMITED STUDY Torrey Dawson PA-C [address] [place] [address] [facility] [address] [place] [address] Referral ID Status Reason Start Date Expiration Date V isits Requested Visits Authorized [id number] Closed Auto-Generate d Referral 02/07/2022 02/07/2023 1 1 [facility] for referral (narrative)* Diagnostic Procedure Only (Routine) - Closed Specialty Diagnoses / Procedures Referred By Contac t Referred To Contact [facility] Diagnoses 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) Personal history of breast cancer Encounter for screening mammogram for malignant neoplasm of breast Procedures BARBARA SCREENING W EL SCREENING DIGITAL BREAST TOMOSYNTHESIS BI SCREENING MAMMOGRAPHY BI 2-VIEW BREAST INC [facility] Zofia Donnelly, DEBO.RAILROAD TRACK REPAIR SUPERVISOR [address] [place] [address] [facility] [address] [place] [address] Referral ID Status Reason Start Date Expiration Date V isits Requested Visits Authorized [id number] Closed Auto-Generate d Referral 08/19/2022 09/17/2023 1 1 [facility] for referral (narrative)* Diagnostic Procedure Only (Routine) - Closed Specialty Diagnoses / Procedures Referred By Amy cherry Referred To Contact [facility] Diagnoses 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) Personal history of breast cancer Encounter for screening mammogram for malignant neoplasm of breast Procedures BARBARA SCREENING W EL SCREENING DIGITAL BREAST TOMOSYNTHESIS BI SCREENING MAMMOGRAPHY BI 2-VIEW BREAST INC [facility] Zofia Donnelly, DEBO.RAILROAD TRACK REPAIR SUPERVISOR [address] [place] [address] [facility] [address] [place] [address] Referral ID Status Reason Start Date Expiration Date V isits Requested Visits Authorized [id number] Closed Auto-Generate d Referral 08/19/2022 09/17/2023 1 1 [facility] for referral (narrative)* Diagnostic Procedure Only (Routine) - Pending Review Specialty Diagnoses / Procedures Referred By Contac t Referred To Contact [facility] Diagnoses ER+ (estrogen receptor positive status) Encounter for screening mammogram for breast cancer Procedures BARBARA SCREENING W EL SCREENING DIGITAL BREAST TOMOSYNTHESIS BI SCREENING MAMMOGRAPHY BI 2-VIEW BREAST INC CAD Ashlyn Roger APRN.AREA REPRESENTATIVE [address] [place] [address] [facility] [address] [place] [address] Referral ID Status Reason Start Date Expiration Date Visits Requested Visits Authorized [id number] Pending Review Auto-Generat ed Referral 09/01/2023 09/30/2024 1 1 [facility] for referral (narrative)* Diagnostic Procedure Only (Routine) - Closed Specialty Diagnoses / Procedures Referred By Amy cherry Referred To Contact [facility] Diagnoses Abnormal mammogram of left breast Procedures US BREAST LTD LEFT US BREAST UNI REAL TIME WITH IMAGE LIMITED Ashlyn Roger APRN.AREA REPRESENTATIVE [address] [place] [address] [facility] [address] [place] [address] Referral ID Status Reason Start Date Expiration Date V isits Requested Visits Authorized [id number] Closed Auto-Generate d Referral 09/08/2023 10/07/2024 1 1 [facility] for referral (narrative)No reason for referral information availableSelect [facility] Work Phone: Reason for visit Narrative* [...] BI 2-VIEW BREAST INC CAD Zofia Donnelly APRN.RAILROAD TRACK REPAIR SUPERVISOR [address] [place] [address] [facility] [address] [place] [address] Referral ID Status Reason Start Date Expiration Date V isits Requested Visits Authorized [id number] Closed Auto-Generate d Referral 08/19/2022 09/17/2023 1 1 [facility] for visit Narrative* Diagnostic Procedure Only (Routine) - Closed Specialty Diagnoses / Procedures Referred By Amy cherry Referred To Contact [facility] Diagnoses ER+ (estrogen receptor positive status) Encounter for screening mammogram for breast cancer Procedures BARBARA SCREENING W EL SCREENING DIGITAL BREAST TOMOSYNTHESIS BI SCREENING MAMMOGRAPHY BI 2-VIEW BREAST INC CAD Ashlyn Roger, OIL WELL ENGINEER.AREA REPRESENTATIVE [address] [place] [address] [facility] [address] [place] [address] Referral ID Status Reason Start Date Expiration Date V isits Requested Visits Authorized [id number] Closed Auto-Generate d Referral 09/01/2023 09/30/2024 1 1 [facility] for visit Narrative* Diagnostic Procedure Only (Routine) - Closed Specialty Diagnoses / Procedures Referred By Amy cherry Referred To Contact [facility] Diagnoses Abnormal mammogram of left breast Procedures US BREAST LTD LEFT US BREAST UNI REAL TIME WITH IMAGE LIMITED Ashlyn Roger, OIL WELL ENGINEER.AREA REPRESENTATIVE [address] [place] [address] [facility] [address] [place] [address] Referral ID Status Reason Start Date Expiration Date V isits Requested Visits Authorized [id number] Closed Auto-Generate d Referral 09/08/2023 10/07/2024 1 1 [facility] for visit Narrative* Diagnostic Procedure Only (Routine) - Closed Specialty Diagnoses / Procedures Referred By Amy cherry Referred To Contact [facility] Diagnoses Abnormal mammogram of left breast Procedures BARBARA DIAGNOSTIC LEFT DIAGNOSTIC MAMMOGRAPHY COMPUTER-AIDED DETCJ UNI Ashlyn Roger, OIL WELL ENGINEER.AREA REPRESENTATIVE [address] [place] [address] [facility] [address] [place] [address] Referral ID Status Reason Start Date Expiration Date V isits Requested Visits Authorized [id number] Closed Auto-Generate d Referral 09/08/2023 10/07/2024 1 1 [facility] for visit Narrative* Diagnostic Procedure Only (Routine) - Closed Specialty Diagnoses / Procedures Referred By Amy t Referred To Contact [facility] Diagnoses Encounter for screening mammogram for breast cancer Procedures BARBARA SCREENING W EL SCREENING DIGITAL BREAST TOMOSYNTHESIS BI SCREENING MAMMOGRAPHY BI 2-VIEW BREAST INC CAD Older, Kelle, DEBO.RAILROAD TRACK REPAIR SUPERVISOR [address] [place] [address] Phone: tel: fax: [facility] [address] [place] [address] Referral ID Status Reason Start Date Expiration Date V isits Requested Visits Authorized [id number] Closed Auto-Generate d Referral 09/14/2024 10/14/2025 1 1 [facility] Summary Purpose Family History No Family History Records Found No data available for this section No data available for this section No Family History Records FoundNo Family History Records FoundNo Family History Records Found Advance Directives No Advanced Directives Records Found Advance Directive Response Recorded Date/ Time Advance Directives No August 16 10:15am Living Will No February 18 022 7:31am Power of Sustainable Agriculture Specialist No February 18, 2022 7:31am Advance Directive Response Recorded Date/ Time Advance Directives No August 16 10:15am Living Will No March 02, 2022 6:30pm Power of Sustainable Agriculture Specialist No February 6:30pm Advance Directive Response Recorded Date/ Time Advance Directives No August 16 9:15am Living Will No May 26 023 11:53pm Power of Sustainable Agriculture Specialist No May 26, 2023 11:53pm Advance Directive Response Recorded Date/ Time Advance Directives No August 16 10:15am Living Will No August 28, 2023 6:01pm Power of Sustainable Agriculture Specialist No August 27 6:01pm Advance Directive Response [...] 11/14/2018 [facility] DATE CREATED AUTHOR AUTHOR'S ORGANIZ ATION 09/03/2023 [facility] ([place] DATE CREATED AUTHOR AUTHOR'S ORGANIZ ATION 12/24/2024 [facility] DATE CREATED AUTHOR AUTHOR'S ORGANIZ ATION 04/05/2025 [facility] Comments (unrecognize d section and content) In the event this informatio n is protected by the Federal Confidentiality of Alcohol and Drug Abuse Patient Records regulations: The Federal rules restrict any use of the information to criminally investigate or prosecute any alcohol or drug abuse patient.[facility] Hospital[facility] the event this information is protected by the Federal Confidentiality of Alcohol and Drug Abuse Patient Records regulations: The Federal rules restrict any use of the information to criminally investigate or prosecute any alcohol or drug abuse patient.[facility] Hospital[facility] the event this information is protected by the Federal Confidentiality of Alcohol and Drug Abuse Patient Records regulations: The Federal rules restrict any use of the information to criminally investigate or prosecute any alcohol or drug abuse patient.[facility] Hospital[facility] the event this information is protected by the Federal Confidentiality of Alcohol and Drug Abuse Patient Records regulations: The Federal rules restrict any use of the information to criminally investigate or prosecute any alcohol or drug abuse patient.[facility] Hospital[facility] the event this information is protected by the Federal Confidentiality of Alcohol and Drug Abuse Patient Records regulations: The Federal rules restrict any use of the information to criminally investigate or prosecute any alcohol or drug abuse patient.[facility] Hospital[facility] the event this information is protected by the Federal Confidentiality of Alcohol and Drug Abuse Patient Records regulations: The Federal rules restrict any use of the information to criminally investigate or prosecute any alcohol or drug abuse patient.[facility] HospitalIn the event this information is protected by the Federal Confidentiality of Alcohol and Drug Abuse Patient Records regulations: The Federal rules restrict any use of the information to criminally investigate or prosecute any alcohol or drug abuse patient.[facility] HospitalIn the event this information is protected by the Federal Confidentiality of Alcohol and Drug Abuse Patient Records regulations: The Federal rules restrict any use of the information to criminally investigate or prosecute any alcohol or drug abuse patient.[facility] HospitalIn the event this information is protected by the Federal Confidentiality of Alcohol and Drug Abuse Patient Records regulations: The Federal rules restrict any use of the information to criminally investigate or prosecute any alcohol or drug abuse patient.[facility] HospitalIn the event this information is protected by the Federal Confidentiality of Alcohol and Drug Abuse Patient Records regulations: The Federal rules restrict any use of the information to criminally investigate or prosecute any alcohol or drug abuse patient.[facility] HospitalIn the event this information is protected by the Federal Confidentiality of Alcohol and Drug Abuse Patient Records regulations: The Federal rules restrict any use of the information to criminally investigate or prosecute any alcohol or drug abuse patient.[facility] HospitalIn the event this information is protected by the Federal Confidentiality of Alcohol and Drug Abuse Patient Records regulations: The Federal rules restrict any use of the information to criminally investigate or prosecute any alcohol or drug abuse patient.[facility] HospitalIn the event this information is protected by the Federal Confidentiality of Alcohol and Drug Abuse Patient Records regulations: The Federal rules restrict any use of the information to criminally investigate or prosecute any alcohol or drug abuse patient.[facility] HospitalIn the event this information is protected by the Federal Confidentiality of Alcohol and Drug Abuse Patient Records regulations: The Federal rules restrict any use of the information to criminally investigate or prosecute any alcohol or drug abuse patient.[facility] HospitalIn the event this information is protected by the Federal Confidentiality of Alcohol and Drug Abuse Patient Records regulations: The Federal rules restrict any use of the information to criminally investigate or prosecute any alcohol or drug abuse patient.[facility] HospitalIn the event this information is protected by the Federal Confidentiality of Alcohol and Drug Abuse Patient Records regulations: The Federal rules restrict any use of the information to criminally investigate or prosecute any alcohol or drug abuse patient.[facility] HospitalIn the event this information is protected by the Federal Confidentiality of Alcohol and Drug Abuse Patient Records regulations: The Federal rules restrict any use of the information to criminally investigate or prosecute any alcohol or drug abuse patient.[facility] HospitalIn the event this information is protected by the Federal Confidentiality of Alcohol and Drug Abuse Patient Records regulations: The Federal rules restrict any use of the information to criminally investigate or prosecute any alcohol or drug abuse patient.[facility] HospitalIn the event this information is protected by the Federal Confidentiality of Alcohol and Drug Abuse Patient Records regulations: The Federal rules restrict any use of the information to criminally investigate or prosecute any alcohol or drug abuse patient.[facility] HospitalIn the event this information is protected by the Federal Confidentiality of Alcohol and Drug Abuse Patient Records regulations: The Federal rules restrict any use of the information to criminally investigate or prosecute any alcohol or drug abuse patient.[facility] HospitalIn the event this information is protected by the Federal Confidentiality of Alcohol and Drug Abuse Patient Records regulations: The Federal rules restrict any use of the information to criminally investigate or prosecute any alcohol or drug abuse patient.[facility] HospitalIn the event this information is protected by the Federal Confidentiality of Alcohol and Drug Abuse Patient Records regulations: The Federal rules restrict any use of the information to criminally investigate or prosecute any alcohol or drug abuse patient.[facility] HospitalIn the event this information is protected by the Federal Confidentiality of Alcohol and Drug Abuse Patient Records regulations: The Federal rules restrict any use of the information to criminally investigate or prosecute any alcohol or drug abuse patient.[facility] HospitalIn the event this information is protected by the Federal Confidentiality of Alcohol and Drug Abuse Patient Records regulations: The Federal rules restrict any use of the information to criminally investigate or prosecute any alcohol or drug abuse patient.[facility] HospitalIn the event this information is protected by the Federal Confidentiality of Alcohol and Drug Abuse Patient Records regulations: The Federal rules restrict any use of the information to criminally investigate or prosecute any alcohol or drug abuse patient.[facility] HospitalIn the event this information is protected by the Federal Confidentiality of Alcohol and Drug Abuse Patient Records regulations: The Federal rules restrict any use of the information to criminally investigate or prosecute any alcohol or drug abuse patient.[facility] HospitalIn the event this information is protected by the Federal Confidentiality of Alcohol and Drug Abuse Patient Records regulations: The Federal rules restrict any use of the information to criminally investigate or prosecute any alcohol or drug abuse patient.[facility] HospitalIn the event this information is protected by the Federal Confidentiality of Alcohol and Drug Abuse Patient Records regulations: The Federal rules restrict any use of the information to criminally investigate or prosecute any alcohol or drug abuse patient.[facility] HospitalIn the event this information is protected by the Federal Confidentiality of Alcohol and Drug Abuse Patient Records regulations: The Federal rules restrict any use of the information to criminally investigate or prosecute any alcohol or drug abuse patient.[facility] HospitalIn the event this information is protected by the Federal Confidentiality of Alcohol and Drug Abuse Patient Records regulations: The Federal rules restrict any use of the information to criminally investigate or prosecute any alcohol or drug abuse patient.[facility] HospitalIn the event this information is protected by the Federal Confidentiality of Alcohol and Drug Abuse Patient Records regulations: The Federal rules restrict any use of the information to criminally investigate or prosecute any alcohol or drug abuse patient.[facility] HospitalIn the event this information is protected by the Federal Confidentiality of Alcohol and Drug Abuse Patient Records regulations: The Federal rules restrict any use of the information to criminally investigate or prosecute any alcohol or drug abuse patient.[facility] HospitalIn the event this information is protected by the Federal Confidentiality of Alcohol and Drug Abuse Patient Records regulations: The Federal rules restrict any use of the information to criminally investigate or prosecute any alcohol or drug abuse patient.[facility] HospitalIn the event this information is protected by the Federal Confidentiality of Alcohol and Drug Abuse Patient Records regulations: The Federal rules restrict any use of the information to criminally investigate or prosecute any alcohol or drug abuse patient.[facility] HospitalIn the event this information is protected by the Federal Confidentiality of Alcohol and Drug Abuse Patient Records regulations: The Federal rules restrict any use of the information to criminally investigate or prosecute any alcohol or drug abuse patient.[facility] HospitalIn the event this information is protected by the Federal Confidentiality of Alcohol and Drug Abuse Patient Records regulations: The Federal rules restrict any use of the information to criminally investigate or prosecute any alcohol or drug abuse patient.[facility] HospitalIn the event this information is protected by the Federal Confidentiality of Alcohol and Drug Abuse Patient Records regulations: The Federal rules restrict any use of the information to criminally investigate or prosecute any alcohol or drug abuse patient.[facility] HospitalIn the event this information is protected by the Federal Confidentiality of Alcohol and Drug Abuse Patient Records regulations: The Federal rules restrict any use of the information to criminally investigate or prosecute any alcohol or drug abuse patient.[facility] HospitalIn the event this information is protected by the Federal Confidentiality of Alcohol and Drug Abuse Patient Records regulations: The Federal rules restrict any use of the information to criminally investigate or prosecute any alcohol or drug abuse patient.[facility] HospitalIn the event this information is protected by the Federal Confidentiality of Alcohol and Drug Abuse Patient Records regulations: The Federal rules restrict any use of the information to criminally investigate or prosecute any alcohol or drug abuse patient.[facility] HospitalIn the event this information is protected by the Federal Confidentiality of Alcohol and Drug Abuse Patient Records regulations: The Federal rules restrict any use of the information to criminally investigate or prosecute any alcohol or drug abuse patient.[facility] Care Teams (unrecognized sec tion and content) Perinatology Physician Relationship Specialty Start Date End Date Jennifer Santos MD [address] [place], [place] [id number] PCP - General Internal Medicine 04/15/21 Perinatology Physician Relationship Specialty Start Date End Date Jennifer Santos MD [address], [place] [address] PCP - General Internal Medicine 04/15/21 Perinatology Physician Relationship Specialty Start Date End Date Jennifer Santos MD [address] [place] [address] PCP - General Internal Medicine 04/15/21 Perinatology Physician Relationship Specialty Start Date End Date Jennifer Santos MD [address] [place] [address] PCP - General Internal Medicine 04/15/21 Perinatology Physician Relationship Specialty Start Date End Date Jennifer Santos MD [address] [place] [address] PCP - General Internal Medicine 04/15/21 Perinatology Physician Relationship Specialty Start Date End Date Jennifer Santos MD [address] [place] [address] PCP - General Internal Medicine 04/15/21 Perinatology Physician Relationship Specialty Start Date End Date Jennifer Santos MD [address] [place] [address] PCP - General Internal Medicine 04/15/21 Perinatology Physician Relationship Specialty Start Date End Date Jennifer Santos MD [address] [place] [address] PCP - General Internal Medicine 04/15/21 Perinatology Physician Relationship Specialty Start Date End Date Jennifer Santos MD [address] [place] [address] PCP - General Internal Medicine 04/15/21 Perinatology Physician Relationship Specialty Start Date End Date Jennifer Santos MD [address] [place] [address] PCP - General Internal Medicine 04/15/21 Perinatology Physician Relationship Specialty Start Date End Date Jennifer Santos MD [address] [place] [address] PCP - General Internal Medicine 04/15/21 Perinatology Physician Relationship Specialty Start Date End Date Jennifer Santos MD [address], [place] [address] PCP - General Internal Medicine 04/15/21 Perinatology Physician Relationship Specialty Start Date End Date Jennifer Santos MD [address] [place] [address] PCP - General Internal Medicine 04/15/21 Perinatology Physician Relationship Specialty Start Date End Date Jennifer Santos MD [address] [place] [address] PCP - General Internal Medicine 04/15/21 Perinatology Physician Relationship Specialty Start Date End Date Jennifer Santos MD [address] [place] [address] PCP - General Internal Medicine 04/15/21 Perinatology Physician Relationship Specialty Start Date End Date Jennifer Santos MD [address] [place] [address] PCP - General Internal Medicine 04/15/21 Team [...] Active 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 Perinatology Physician Relationship Specialty Start Date End Date Jennifer Santos MD [address], [place] [address] PCP - General Internal Medicine 04/15/21 Perinatology Physician Relationship Specialty Start Date End Date Jennifer Santos MD [address] [place] [address] PCP - General Internal Medicine 04/15/21 Perinatology Physician Relationship Specialty Start Date End Date Jennifer Santos MD [address] [place] [address] PCP - General Internal Medicine 04/15/21 Perinatology Physician Relationship Specialty Start Date End Date Jennifer Santos MD [address] [place] [address] PCP - General Internal Medicine 04/15/21 Perinatology Physician Relationship Specialty Start Date End Date Jennifer Santos MD [address] [place] [address] PCP - General Internal Medicine 04/15/21 Perinatology Physician Relationship Specialty Start Date End Date Jennifer Santos MD [address] [place] [address] PCP - General Internal Medicine 04/15/21 Perinatology Physician Relationship Specialty Start Date End Date Jennifer Santos MD [address] [place] [address] PCP - General Internal Medicine 04/15/21 Perinatology Physician Relationship Specialty Start Date End Date Jennifer Santos MD [address] [place] [address] PCP - General Internal Medicine 04/15/21 Perinatology Physician Relationship Specialty Start Date End Date Jennifer Santos MD [address] [place] [address] PCP - General Internal Medicine 04/15/21 Perinatology Physician Relationship Specialty Start Date End Date Jennifer Santos MD [address] [place] [address] PCP - General Internal Medicine 04/15/21 Perinatology Physician Relationship Specialty Start Date End Date Jennifer Santos MD [address] [facility] [place] [address] PCP - General Internal Medicine 04/15/21 Kelle Peter APRN.RAILROAD TRACK REPAIR SUPERVISOR [address] [facility] [place] [address] Cuff Presser Internal Medicine 05/22/24 Perinatology Physician Relationship Specialty Start Date End Date Jennifer Santos MD [address] [facility] [place] [address] PCP - General Internal Medicine 04/15/21 Kelle Peter APRN.RAILROAD TRACK REPAIR SUPERVISOR [address] [place] [address] Cuff Presser Internal Medicine 05/22/24 Perinatology Physician Relationship Specialty Start Date End Date Jennifer Santos MD [address] [facility] [place] [address] PCP - General Internal Medicine 04/15/21 Kelle Peter APRN.RAILROAD TRACK REPAIR SUPERVISOR [address] [facility] [place] [address] Cuff Presser Internal Medicine 05/22/24 Perinatology Physician Relationship Specialty Start Date End Date Jennifer Santos MD [address] [facility] [place] [address] PCP - General Internal Medicine 04/15/21 Brittani DEBO Nina.RAILROAD TRACK REPAIR SUPERVISOR [address] [place] [address] Cuff Presser Internal Medicine 05/22/24 Team Status: Active Member [...] content) Reason Comments Established 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 [employer] provides no warranty or guarantee of the accuracy or completeness of information in this document.
[2025-04-07] MEDS: 0.9% Normal Saline (1000mL) 1,000 ML 70 ML IV (04:55)
[2025-04-07 05:15] LABS: Barbiturate Urine NEGATIVE (< 200 ng/mL); Benzodiazepine Urine NEGATIVE (< 200 ng/mL); PCP Urine NEGATIVE (< 25 ng/mL); THC Urine NEGATIVE (< 50 ng/mL)
[2025-04-07 06:56] LABS: Alcohol, Blood (Medical)-Serum < 10.1 mg/dL (<=10.0)
[2025-04-07 07:21] LABS: Cholesterol 197 mg/dL (<=200); Low Density Lipoprotein Calc. 134 mg/dL; Triglycerides 124 mg/dL; Very Low Density Lipoprotein 25 mg/dL (5-40); cholesterol:hdl ratio screen 4.88
--- NOTE | 2025-04-07 08:26 | PN.HOSP_ITS ---
Reason for Visit Chief Complaint: Dizziness and Confusion. Subjective Subjective Feeling better. Objective Data Objective Data Vital Signs: Vital Signs Temp Pulse Resp BP Pulse Ox O2 Del Method 36.7 C 66 16 143/69 H 96 Room Air 04/07/25 08:12 04/07/25 08:12 04/07/25 08:12 04/07/25 08:12 04/07/25 08:12 04/07/25 08:12 Oxygen Delivery Method Room Air Weight: 87.3 kg Body Mass Index (BMI) 35.2 Lab / Micro Data 04/07/25 00:15 04/07/25 00:15 Labs: Laboratory Results - last 24 hr 04/07/25 00:15: WBC 8.5, RBC 4.44, Hgb 13.8, Hct 40.6, MCV 91.4, MCH 31.1, MCHC 34.0, RDW Std Deviation 44.1 H, RDW Coeff of Funmi 13.1, Plt Count 273, MPV 11.9, Immature Gran % (Auto) 0.200, Neut % (Auto) 59.7, Lymph % (Auto) 25.2, Jerome % (Auto) 6.5, Eos % (Auto) 7.8 H, Baso % (Auto) 0.6, Absolute Neuts (auto) 5.1, Absolute Lymphs (auto) 2.13, Nucleated RBC % 0, Sodium 142, Potassium 3.8, Chloride 105, Carbon Dioxide 26.3, Anion Gap 10, BUN 9, Creatinine 0.86, Estim Creat Clear Calc 57.91, Est GFR (MDRD) Non-Af 70, BUN/Creatinine Ratio 10.1, G lucose 124 H, Calcium 8.8, Total Bilirubin 0.31, AST 26, ALT 9, Alkaline Phosphatase 88, Total Protein 6.9, Albumin 3.9, Globulin 3.1, Albumin/Globulin Ratio 1.3 04/07/25 01:20: Urine Color Yellow, Urine Clarity Clear, Urine pH 7.0, Ur Specific [place] 1.010, Urine Protein Negative, Urine Glucose (UA) Normal, Urine Ketones Negative, Urine Occult Blood Negative, Urine Nitrite Negative, Urine Bilirubin Negative, Urine Urobilinogen Normal, Ur Leukocyte Esterase Negative, Urine RBC 0 SEEN, Urine WBC 0 SEEN, Ur Squamous Epith Cells 0-5 SEEN, Urine Bacteria RARE, Urine Mucus 0 SEEN, Urine Opiates Screen NEGATIVE, U Buprenorphine Qual NEGATIVE, Ur Oxycodone Screen NEGATIVE, Urine Methadone Screen NEGATIVE, Urine Fentanyl Screen NEGATIVE, Ur Barbiturates Screen NEGATIVE, Ur Phencyclidine Scrn NEGATIVE, Ur Amphetamines Screen NEGATIVE, U Benzodiazepines Scrn NEGATIVE, Urine Cocaine Screen NEGATIVE, U Cannabinoids Screen NEGATIVE 04/07/25 06:10: Hemoglobin A1c 5.3, Triglycerides 124, Cholesterol 197, LDL Cholesterol, Calc 134, VLDL Cholesterol 25, HDL Cholesterol 40, Cholesterol/HDL Ratio 4.88, TSH 8.080 H, Ethyl Alcohol < 10.1 Radiography Diagnostic Testing: Radiology Impression Brain CT 04/07/25 01:00 IMPRESSION: No intracerebral or extra axial hemorrhage. No acute cerebrovascular insult. If clinical symptoms persist, further evaluation with MRI may be considered as clinically warranted. Bilateral cerebral mild microvascular ischemic changes. Reading Location: [place] [address] Head/Neck CTA 04/07/25 01:00 IMPRESSION: Relatively attenuated right posterior cerebral artery showing multifocal mild and moderately stenotic plaques. Patent rest of the intra and extra-cranial carotid and vertebral arteries as detailed. No occlusion, aneurysmal dilatation or dissecting intimal flaps. Reading Location: [place] [address] Rhythm Strip Rhythm Strip: Sinus Rhythm Rate: 65 Ectopy: None Physical Exam Const alert and no apparent distress Resp normal respiratory effort, no retractions, no use of accessory muscles and clear to auscultation bilaterally Cardio regular rate, regular rhythm, S1 normal heart sound and S2 normal heart sound Extremity normal to inspection Neuro Sensorium / Orientation: awake Assessment & Plan Assessment/Plan (1) Stroke due to stenosis of right posterior cerebral artery: (2) Expressive aphasia: (3) Vertigo, central: (4) Confusion: (5) Acute deep vein thrombosis (DVT) of left lower extremity: QUALIFIERS: Affected thrombotic vein of extremity: unspecified vein of extremity Qualified Code(s): I82.402 - Acute embolism and thrombosis of unspecified deep veins of left lower extremity (6) Uncontrolled hypertension: (7) Obesity (BMI 30-39.9): (8) Depression with anxiety: PLAN: Plan CVA * with mild Expressive Aphasia, Confusion and Vertigo * CT scan of the head and neck with IV contrast that showed relatively attenuated Right posterior cerebral artery showing multifocal mild moderately stenotic plaques with no occlusion, aneurysmal dilatation or dissecting intimal flaps * MRI of the brain negative.. Check echocardiogram. * ASA and add statin. * Give meclizine prn for vertigo. * [facility] teleneurology consultation Hypertensive urgency * 215/103 mmHg on admission. * PRN hydralazine * resolved Chronic medical conditions: * History of recently diagnosed unprovoked recurrent LLE DVT; on apixaban. Hold apixaban as per neurologist's recommendations. * Obesity (class II); with BMI of 35.1 Weight loss will be recommended. * Depression with anxiety; on escitalopram and alprazolam * History of Right breast cancer; s/p lumpectomy and currently in remission * History of endometriosis; s/p hysterectomy * History of adult-onset Still's disease - Stable with no evidence of flare at this time. * History of recurrent angioedema of the tongue; DVT prophylaxis - Patient has recently diagnosed LLE DVT but her apixaban has been held as per neurologist's recommendations. Restart DOAC when/if okay with neurology. Charges/Coding Visit Charges Inpatient E&M: 60533 Subs Hosp L2 NIHSS NIHSS Nursing Documentation NIHSS Nursing Documentation: NIHSS: Ischemic Stroke/TIA Start: 04/07/25 04:02 Text: For PCU Patients: NIH and Neuro Check every 4 Status: Active hours, PRN and with change in RN caregiver. Freq: [id number] Protocol: Activity Type Activity Date Activity User E-sign Co-sign Detail Recorded Client Recorded Date Recorded By Document 04/07/25 08:13 [id number] 04/07/25 08:17 SS 04/07/25 08:13 NIH Stroke Scale [NIHSS] A score of 0 is normal or asymptomatic . Total possible score is 42. Inpatient: RN or Physician to activate a stroke alert for onset of new stroke symptoms or with NIHSS increase >/= 3 points. Following change in neurological status, NIHSS will be performed per physician order or more frequently PRN. -1a. Level of Consciousness 0 - Alert; keenly responsive -1b. LOC Questions 0 - Answers BOTH questions correctly -1c. LOC Commands 0 - Performs BOTH tasks correctly -2. Best Gaze 0 - Normal -3. Visual 0 - No visual loss -4. Facial Palsy 1 - Minor paralysis ( flattened nasolabial fold , asymmetry on smiling) -5a. Left Arm 0 - No drift; arm holds 90 ( or 45) degrees for full 10 seconds -5b. Right Arm 0 - No drift; arm holds 90 ( or 45) degrees for full 10 seconds -6a. Left Leg 0 - No drift; leg holds 30- degree position for full 5 seconds -6b. Right Leg 0 - No drift; leg holds 30- degree position for full 5 seconds -7. Limb Ataxia 0 - Absent -8. Sensory 0 - Normal; no sensory loss -9. Best Language 0 - No aphasia; normal -10. Dysarthria 0 - Normal -11. Extinction and Inattention 0 - No abnormality -Total 1 Query Text:A score of 0 is normal or asymptomatic. Total possible score is 42 . ED: Notify Physician for NIHSS increase by > / = 3 points. Inpatient: RN or Physician to activate a stroke alert for NIHSS increase of > / = 3 points. Coma Scale [Assess] -Eye Opening Spontaneous -Motor Obeys Commands -Verbal Oriented [Total] -Coma Scale Total 15
[2025-04-07 08:43] LABS: Free T3 3.1 pg/mL (2.18-3.98)
--- NOTE | 2025-04-07 09:21 | MRI_ITS ---
PROCEDURE: BRAIN WITHOUT CONTRAST 04/07/2025 REASON FOR EXAM: SUSPECTED POSTERIOR CVA WITH VERTIGO AND CONFUSION TECHNIQUE: Procedure Code: MRIBR Modality: MR Procedure: BRAIN WITHOUT CONTRAST Multiplanar and multisequence images were obtained. COMPARISON: CT head April 07, 2025. FINDINGS: Brain: Moderate cerebral atrophy and chronic periventricular white matter disease. No restricted diffusion. No hemorrhage. No mass-effect or midline shift. The orbits are within normal limits. Ventricles: No ventriculomegaly. Major Intracranial Vessels: Patent. Sinuses: Clear. Mastoids: Clear. MRI/Brain without Contrast IMPRESSION: No acute brain abnormalities. Reading Location: [id number]
--- NOTE | 2025-04-07 13:32 | CASEMGMT ---
Social Work Primary Care Doctor: Dr. Rea Speciality doctors; Dr. Alicea- psych Insurance: [employer] Medicare PPO Pharmacy: Patient utilizes [facility] [place]. Advanced directives: Patient does not have a POA or LW. Patient wants to discuss with her daughter and grandson before moving forward. LNOK:. daughter Jaimee Dee Marital/Social History: Patient is . She has 1 daughter. Living Situation: Patient has one step into the home. Her grandson, his and their 3 children live with her and her daughter and 2 of her daughter's grandchildren also live with her. ADL's/Prior level of functioning: independent Transportation: Patient still drives. DME: none intermediate/home health history: no history of HH or SNF Mental Health: Patient takes medication for depression and it helps. Substance abuse history: none Assessment: Patient lives at home with her grandson, his and their 3 children and her daughter and 2 of her daughter's grandchildren. PLAN: Patient wants to DDC home. Patient does not want HH or DME. RHODA Gomez
--- NOTE | 2025-04-07 13:43 | CASEMGMT ---
Social Work Per imaging pt negative for stroke, therefore PHQ9 not completed. RHODA Gomez
--- NOTE | 2025-04-07 16:16 | DS.PCM_ITS ---
Providers Date of Admission: 04/07/25 Primary Care Physician: Dr. 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 of right posterior cerebral artery: Status: Acute Code(s): I63.531 - Cerebral infarction due to unspecified occlusion or stenosis of right posterior cerebral artery (2) Expressive aphasia: Status: Acute Code(s): R47.01 - Aphasia (3) Vertigo, central: Status: Acute Code(s): H81.4 - Vertigo of central origin (4) Confusion: Status: Acute Code(s): R41.0 - Disorientation, unspecified (5) Acute deep vein thrombosis (DVT) of left lower extremity: Status: Acute Code(s): I82.402 - Acute embolism and thrombosis of unspecified deep veins of left lower extremity Qualifiers: Affected thrombotic vein of extremity: unspecified vein of extremity Q ualified Code(s): I82.402 - Acute embolism and thrombosis of unspecified deep veins of left lower extremity (6) Uncontrolled hypertension: Status: Acute Code(s): I10 - Essential (primary) hypertension (7) Obesity (BMI 30-39.9): Status: Acute Code(s): E66.9 - Obesity, unspecified (8) Depression with anxiety: Status: Acute Code(s): F41.8 - Other specified anxiety disorders Plan CVA * with mild Expressive Aphasia, Confusion and Vertigo * CT scan of the head and neck with IV contrast that showed relatively attenuated Right posterior cerebral artery showing multifocal mild moderately stenotic plaques with no occlusion, aneurysmal dilatation or dissecting intimal flaps * MRI of the brain negative.. Check echocardiogram. * ASA and add statin. * Give meclizine prn for vertigo. * [facility] consultation Hypertensive urgency * 215/103 mmHg on admission. * PRN hydralazine * resolved Chronic medical conditions: * History of recently diagnosed unprovoked recurrent LLE DVT; on apixaban. Hold apixaban as per neurologist's recommendations. * Obesity (class II); with BMI of 35.1 Weight loss will be recommended. * Depression with anxiety; on escitalopram and alprazolam * History of Right breast cancer; s/p lumpectomy and currently in remission * History of endometriosis; s/p hysterectomy * History of adult-onset Still's disease - Stable with no evidence of flare at this time. * History of recurrent angioedema of the tongue; DVT prophylaxis - Patient has recently diagnosed LLE DVT but her apixaban has been held as per neurologist's recommendations. Restart DOAC when/if okay with neurology. Medications at Discharge Home Medications alprazolam 0.25 mg tablet 0.25 mg PO TID PRN PRN Insomnia 08/16/14 escitalopram oxalate 10 mg tablet 10 mg PO QHS anxiety 08/16/14 apixaban 5 mg (74 tabs) tablets in a dose pack ([employer] DVT-PE Treat 30D Start) See Rx Instructions .Route .COMPLEX #74 tabs 04/04/25 atorvastatin 40 mg tablet 40 mg PO QHS #30 tabs 04/07/25 meclizine 12.5 mg tablet 12.5 mg PO TID PRN dizziness #14 tabs 04/07/25 Hospital Course Operations None Procedures 2-D Echocardiogram Summary of Care Provided Hospital Course: Greater than 30 minutes spent on discharge patient presented with dizziness. It was transient. She was concerned that it may have been due to her medication (apixaban). She underwent an MRI of the brain that was negative. Nursing reported that the dizziness was shortly after a BM. The etiology of the dizziness was likely either due to BPPV (seems more likely as she had a room spinning sensation) v vasovagal. I told her that it was unlikely due to apixaban. Weight / BMI Weight Weight: 87.3 kg Body Mass Index (BMI) 35.2 ABG / Lab / Microbiology Data 04/07/25 00:15 04/07/25 00:15 Laboratory: Laboratory Results - last 24 hr 04/07/25 00:15: WBC 8.5, RBC 4.44, Hgb 13.8, Hct 40.6, MCV 91.4, MCH 31.1, MCHC 34.0, RDW Std Deviation 44.1 H, RDW Coeff of Funmi 13.1, Plt Count 273, MPV 11.9, Immature Gran % (Auto) 0.200, Neut % (Auto) 59.7, Lymph % (Auto) 25.2, [place] % (Auto) 6.5, Eos % (Auto) 7.8 H, Baso % (Auto) 0.6, Absolute Neuts (auto) 5.1, Absolute Lymphs (auto) 2.13, Nucleated RBC % 0, Sodium 142, Potassium 3.8, Chloride 105, Carbon Dioxide 26.3, Anion Gap 10, BUN 9, Creatinine 0.86, Estim Creat Clear Calc 57.91, Est GFR (MDRD) Non-Af 70, BUN/Creatinine Ratio 10.1, G lucose 124 H, Calcium 8.8, Total Bilirubin 0.31, AST 26, ALT 9, Alkaline Phosphatase 88, Total Protein 6.9, Albumin 3.9, Globulin 3.1, Albumin/Globulin Ratio 1.3 04/07/25 01:20: Urine Color Yellow, Urine Clarity Clear, Urine pH 7.0, Ur Specific [place] 1.010, Urine Protein Negative, Urine Glucose (UA) Normal, Urine Ketones Negative, Urine Occult Blood Negative, Urine Nitrite Negative, Urine Bilirubin Negative, Urine Urobilinogen Normal, Ur Leukocyte Esterase Negative, Urine RBC 0 SEEN, Urine WBC 0 SEEN, Ur Squamous Epith Cells 0-5 SEEN, Urine Bacteria RARE, Urine Mucus 0 SEEN, Urine Opiates Screen NEGATIVE, U Buprenorphine Qual NEGATIVE, Ur Oxycodone Screen NEGATIVE, Urine Methadone Screen NEGATIVE, Urine Fentanyl Screen NEGATIVE, Ur Barbiturates Screen NEGATIVE, Ur Phencyclidine Scrn NEGATIVE, Ur Amphetamines Screen NEGATIVE, U Benzodiazepines Scrn NEGATIVE, Urine Cocaine Screen NEGATIVE, U Cannabinoids Screen NEGATIVE 04/07/25 06:10: Hemoglobin A1c 5.3, Triglycerides 124, Cholesterol 197, LDL Cholesterol, Calc 134, VLDL Cholesterol 25, HDL Cholesterol 40, Cholesterol/HDL Ratio 4.88, TSH 8.080 H, Free T4 0.80, Free T3 pg/dL 3.1, Ethyl Alcohol < 10.1 Radiography Diagnostic Testing: Radiology Impression Brain CT 04/07/25 01:00 IMPRESSION: No intracerebral or extra axial hemorrhage. No acute cerebrovascular insult. If clinical symptoms persist, further evaluation with MRI may be considered as clinically warranted. Bilateral cerebral mild microvascular ischemic changes. Reading Location: [id number] Head/Neck CTA 04/07/25 01:00 IMPRESSION: Relatively attenuated right posterior cerebral artery showing multifocal mild and moderately stenotic plaques. Patent rest of the intra and extra-cranial carotid and vertebral arteries as detailed. No occlusion, aneurysmal dilatation or dissecting intimal flaps. Reading Location: [id number] Brain MRI 04/07/25 09:21 IMPRESSION: No acute brain abnormalities. Reading Location: [id number] D/C Instructions DC O2, CPAP, BIPAP Needs Home O2 Discharge instructions: No Meaningful Use Info Meaningful Use Meaningful Use Diagnoses (Choose all that apply): None applicable Discharge Plan Admission Admit Date/Time: 04/07/25 03:39 Primary Reason for Your Visit: Dizziness Attending Provider: Bran Courtney Primary Care Provider: Nata Rea Consulting Providers: Neville Benito; Penny Mahoney; Renée Hou; Chey Baker; Neeru Garcia; Phil Doll; Brit Andrew; Melvin Gabriel; Pipe Venegas; Dalton Gross; Bernadette Rodriguez; Sara Brar; Tom Bach; Chayo Taylor; Nick Clay; Lien Putnam; Alen Gray; Jennifer Norris; Derick Brink; Mikki Matute; Shaniqua Blake; Milo Jensen Instructions Additional Instructions / Restrictions: You had dizziness which is likely due to vertigo. I do not feel that this is related with your Eliquis. If you have recurrent symptoms, notify your physician or return to the emergency room. If you have recurrent dizziness, you can take meclizine (Antivert) as needed. I do not feel that there is any need to policy change clerk to warfarin as I do not feel that the Eliquis was contributing to your symptoms. Discharge Orders/Prescriptions Prescriptions: New atorvastatin 40 mg Tablet 40 mg PO QHS Qty: 30 0RF meclizine 12.5 mg tablet 12.5 mg PO TID PRN (Reason: dizziness) Qty: 14 0RF Continued alprazolam 0.25 MG tablet 0.25 mg PO TID PRN PRN (Reason: Insomnia) escitalopram oxalate 10 MG tablet 10 mg PO QHS Eliquis DVT-PE Treat 30D Start 5 mg (74 tabs) Tablets,Dose Pack See Rx Instructions .ROUTE .COMPLEX Qty: 74 0RF Rx Instructions: orally per package directions Referrals / Follow Up: Nata Rea MD [Primary Care Provider, Internal Medicine] - Within 2 Weeks Disposition Disposition (needs filled in before D/C Order can be placed): Home, Self Care Charges/Coding Visit Charges Inpatient E&M: 64048 Disch Hosp >30min
--- NOTE | 2025-04-07 16:29 | NEURO.CONS ---
Assessment and Plan: Neuro Assessment/Plan KIKI FRANKS is a 75 F with a past medical history of DVT on eliquis, being evaluated by Teleneurology for dizziness. Dizziness remitted and she connects it strongly to eliquis. I do believe her DVT needs some form of A/C. Dizziness would be less common SE of eliquis but given the strong correlation reasonable to switch her to coumadin for DVT. Diagnosis: Dizziness, On anticoagulation for DVT Plan: Switch eliquis to coumadin for DVT treatment I personally attended this patient and spent a total time of 25 minutes evaluating this patient including clinical assessment, review of chart, medical history imaging, and determining appropriate treatment and workup. Alen Gray MD Utility Aide, [facility] Tel[facility] HPI Consult Data Date of Consult: 04/07/25 HPI Narrative HPI Narrative: KIKI FRANKS, is a 75 F with history of DVT, adult onset still's, who presents with dizziness and confusion. She is a limited but willing historian. SHe denies confusion and says dizziness was extremely correlated to starting eliquis for her DVT. Dizzines sis better today. She returns repeatedly to the eliquis and explains that she is not dizzy today because they are holding the eliquis. Stroke workup imaging did NOT show infarct or bleed. Here she has been walkign through the halls without difficulty. [facility] Medical History Vaginal candidiasis Acute bronchitis, unspecified Kidney stones Pulmonary embolism Adult-onset Still's disease Depression Anxiety Breast cancer Endometriosis Bowel obstruction Home Medications ?Medication ?Instructions ?Recorded ?Last Taken ?Type alprazolam 0.25 mg tablet 0.25 mg PO TID PRN PRN Insomnia 08/16/14 Unknown History escitalopram oxalate 10 mg tablet 10 mg PO QHS anxiety 08/16/14 Unknown History apixaban 5 mg (74 tabs) tablets in See Rx Instructions .Route 04/04/25 Unknown Rx a dose pack (Eliquis DVT-PE Treat .COMPLEX #74 tabs 30D Start) atorvastatin 40 mg tablet 40 mg PO QHS #30 tabs 04/07/25 Unknown Rx meclizine 12.5 mg tablet 12.5 mg PO TID PRN dizziness #14 04/07/25 Unknown Rx tabs Allergy/AdvReac Type Severity Reaction Status Date / Time ampicillin Allergy Rash Verified 04/07/25 00:01 prednisone AdvReac SHAKINESS Verified 04/07/25 00:01 Surgical History H/O lumpectomy History of bowel resection History of colostomy reversal H/O: hysterectomy Social History household members: family housing: house Smoking Status: Unknown if ever smoked Vital Signs Vital Signs Vital Signs: 04/07/25 00:00 04/07/25 00:18 04/07/25 00:30 Temperature 98.3 F Temperature Source Oral Pulse Rate 68 62 61 Respiratory Rate 18 13 16 Blood Pressure 183/84 H Blood Pressure Mean 117 Blood Pressure Source Blood Pressure Position Blood Pressure Location Pulse Ox 100 100 99 Oxygen Delivery Method Room Air 04/07/25 00:45 04/07/25 01:00 04/07/25 01:19 Temperature Temperature Source Pulse Rate 65 66 94 Respiratory Rate 15 13 21 H Blood Pressure Blood Pressure Mean Blood Pressure Source Blood Pressure Position Blood Pressure Location Pulse Ox 100 99 Oxygen Delivery Method 04/07/25 02:00 04/07/25 02:28 04/07/25 02:29 Temperature Temperature Source Pulse Rate 69 66 Respiratory Rate 16 14 Blood Pressure 211/99 H 215/103 H Blood Pressure Mean 136 140 Blood Pressure Source Blood Pressure Position Blood Pressure Location Pulse Ox 100 100 Oxygen Delivery Method Room Air Room Air Room Air 04/07/25 02:42 04/07/25 02:55 04/07/25 03:00 Temperature 98.0 F Temperature Source Pulse Rate 65 72 68 Respiratory Rate 15 15 14 Blood Pressure 214/97 H 188/82 H Blood Pressure Mean 136 117 Blood Pressure Source Blood Pressure Position Blood Pressure Location Pulse Ox 100 99 100 Oxygen Delivery Method Room Air 04/07/25 04:30 04/07/25 08:12 04/07/25 12:44 Temperature 97.9 F 98.0 F Temperature Source Oral Oral Pulse Rate 66 66 Respiratory Rate 16 16 Blood Pressure 152/78 H 143/69 H Blood Pressure Mean 102 93 Blood Pressure Source Monitor Monitor Blood Pressure Position Semi-Fowlers Semi-Fowlers Blood Pressure Location Left Arm Left Arm Pulse Ox 100 96 96 Oxygen Delivery Method Room Air Room Air Room Air Weight Weight: 87.3 kg Body Mass Index (BMI) 35.2 EEG Results Procedure Details EEG Procedure Details: KIKI FRANKS is a 75 year old F with a past medical history of , who presents for evaluation of Electroencephalogram on DATE at TIME Physical Exam Narrative AOx3, EOMI, face symmetric and strong, tongue midline, head rotation intact, no dysarthria, UE and LE 5/5 at SA/EE/EF/Adapted Physical Education Aide/HE/KE/KF/PF bilaterally (stands and walks for exam). Sensation itnact to light touch [id number] extremities. HtS and FtN intact. Lab / Micro Data 04/07/25 00:15 04/07/25 00:15 Labs: Laboratory Results - last 24 hr 04/07/25 00:15: WBC 8.5, RBC 4.44, Hgb 13.8, Hct 40.6, MCV 91.4, MCH 31.1, MCHC 34.0, RDW Std Deviation 44.1 H, RDW Coeff of Funmi 13.1, Plt Count 273, MPV 11.9, Immature Gran % (Auto) 0.200, Neut % (Auto) 59.7, Lymph % (Auto) 25.2, [place] % (Auto) 6.5, Eos % (Auto) 7.8 H, Baso % (Auto) 0.6, Absolute Neuts (auto) 5.1, Absolute Lymphs (auto) 2.13, Nucleated RBC % 0, Sodium 142, Potassium 3.8, Chloride 105, Carbon Dioxide 26.3, Anion Gap 10, BUN 9, Creatinine 0.86, Estim Creat Clear Calc 57.91, Est GFR (MDRD) Non-Af 70, BUN/Creatinine Ratio 10.1, Glucose 124 H, Calcium 8.8, Total Bilirubin 0.31, AST 26, ALT 9, Alkaline Phosphatase 88, Total Protein 6.9, Albumin 3.9, Globulin 3.1, Albumin/Globulin Ratio 1.3 04/07/25 01:20: Urine Color Yellow, Urine Clarity Clear, Urine pH 7.0, Ur Specific [place] 1.010, Urine Protein Negative, Urine Glucose (UA) Normal, Urine Ketones Negative, Urine Occult Blood Negative, Urine Nitrite Negative, Urine Bilirubin Negative, Urine Urobilinogen Normal, Ur Leukocyte Esterase Negative, Urine RBC 0 SEEN, Urine WBC 0 SEEN, Ur Squamous Epith Cells 0-5 SEEN, Urine Bacteria RARE, Urine Mucus 0 SEEN, Urine Opiates Screen NEGATIVE, U Buprenorphine Qual NEGATIVE, Ur Oxycodone Screen NEGATIVE, Urine Methadone Screen NEGATIVE, Urine Fentanyl Screen NEGATIVE, Ur Barbiturates Screen NEGATIVE, Ur Phencyclidine Scrn NEGATIVE, Ur Amphetamines Screen NEGATIVE, U Benzodiazepines Scrn NEGATIVE, Urine Cocaine Screen NEGATIVE, U Cannabinoids Screen NEGATIVE 04/07/25 06:10: Hemoglobin A1c 5.3, Triglycerides 124, Cholesterol 197, LDL Cholesterol, Calc 134, VLDL Cholesterol 25, HDL Cholesterol 40, Cholesterol/HDL Ratio 4.88, TSH 8.080 H, Free T4 0.80, Free T3 pg/dL 3.1, Ethyl Alcohol < 10.1 Rhythm Strip Rhythm Strip: Sinus Rhythm Rate: 65 Ectopy: None Imaging Radiology Impression Brain CT 04/07/25 01:00 IMPRESSION: No intracerebral or extra axial hemorrhage. No acute cerebrovascular insult. If clinical symptoms persist, further evaluation with MRI may be considered as clinically warranted. Bilateral cerebral mild microvascular ischemic changes. Reading Location: [place] [address] Head/Neck CTA 04/07/25 01:00 IMPRESSION: Relatively attenuated right posterior cerebral artery showing multifocal mild and moderately stenotic plaques. Patent rest of the intra and extra-cranial carotid and vertebral arteries as detailed. No occlusion, aneurysmal dilatation or dissecting intimal flaps. Reading Location: [place] [address] Echocardiogram 04/07/25 03:46 Interpretation Summary The left ventricular ejection fraction is 65 %. Mild assymetric septal hypertrophy. Stage 1 diastolic dysfunction. Mild focal aortic valve calcification. Contrast injection was performed. Ordering Physician: Milo Jensen Performed By: Brodwolf, Vasiliy, RCS Brain MRI 04/07/25 09:21 IMPRESSION: No acute brain abnormalities. Reading Location: [facility] Active Medications Active Medications Active Medications: Current Medications Generic Name Dose Route Start Last Admin Trade Name Freq PRN Reason Stop Dose Admin Acetaminophen 650 mg 04/07/25 04:02 04/07/25 08:25 Acetaminophen 325 Mg Tablet PO 650 mg Q4H PRN PRN Administration Pain 1-10 Or Fever>99.6 Aspirin 81 mg 04/07/25 08:00 04/07/25 08:26 Aspirin 81 Mg Tab.Chew PO 81 mg BREAKFAST [place] Administration Atorvastatin Calcium 40 mg 04/07/25 03:47 04/07/25 04:55 Atorvastatin Calcium 40 Mg Tablet PO 40 mg QHS [place] Administration Escitalopram Oxalate 10 mg 04/07/25 22:00 Escitalopram Oxalate 10 Mg Tablet PO QHS [place] Hydralazine HCl 5 mg 04/07/25 04:02 Hydralazine 20 Mg/Ml Vial IV 04/08/25 04:02 Q30M PRN maintain BP parameters with HR <60 Sodium Chloride 1,000 mls @ 70 mls/hr 04/07/25 03:47 04/07/25 08:29 IV 04/07/25 18:04 0 mls/hr .[id number] [place] Infusion Sodium Chloride 250 mls @ 15 mls/hr 04/07/25 04:03 IV .[id number] PRN Saline Flush Sodium Chloride 250 mls @ 15 mls/hr 04/07/25 04:03 IV .[id number] PRN Additional IVPB Infusion Labetalol HCl 10 - 20 mg 04/07/25 04:02 Labetalol 20 Mg/4 Ml Vial IV 04/08/25 04:02 Q10M PRN PRN maintain BP parameters with HR >/=60 Meclizine HCl 12.5 mg 04/07/25 05:52 Meclizine 12.5 Mg Tablet PO TID PRN PRN DIZZINESS Sodium Chloride 10 - 40 ml 04/07/25 04:03 0.9% Saline Lock 10 Ml Syringe IV UD PRN SALINE FLUSH NIHSS NIHSS Nursing Documentation NIHSS Nursing Documentation: NIHSS: Ischemic Stroke/TIA Start: 04/07/25 04:02 Text: For PCU Patients: NIH and Neuro Check every 4 Status: Complete hours, PRN and with change in RN caregiver. Freq: [id number] Protocol: Activity Type Activity Date Activity User E-sign Co-sign Detail Recorded Client Recorded Date Recorded By Document 04/07/25 08:13 [id number] 04/07/25 08:17 04/07/25 08:13 NIH Stroke Scale [NIHSS] A score of 0 is normal or asymptomatic . Total possible score is 42. Inpatient: RN or Physician to activate a stroke alert for onset of new stroke symptoms or with NIHSS increase >/= 3 points. Following change in neurological status, NIHSS will be performed per physician order or more frequently PRN. -1a. Level of Consciousness 0 - Alert; keenly responsive -1b. LOC Questions 0 - Answers BOTH questions correctly -1c. LOC Commands 0 - Performs BOTH tasks correctly -2. Best Gaze 0 - Normal -3. Visual 0 - No visual loss -4. Facial Palsy 1 - Minor paralysis ( flattened nasolabial fold , asymmetry on smiling) -5a. Left Arm 0 - No drift; arm holds 90 ( or 45) degrees for full 10 seconds -5b. Right Arm 0 - No drift; arm holds 90 ( or 45) degrees for full 10 seconds -6a. Left Leg 0 - No drift; leg holds 30- degree position for full 5 seconds -6b. Right Leg 0 - No drift; leg holds 30- degree position for full 5 seconds -7. Limb Ataxia 0 - Absent -8. Sensory 0 - Normal; no sensory loss -9. Best Language 0 - No aphasia; normal -10. Dysarthria 0 - Normal -11. Extinction and Inattention 0 - No abnormality -Total 1 Query Text:A score of 0 is normal or asymptomatic. Total possible score is 42 . ED: Notify Physician for NIHSS increase by > / = 3 points. Inpatient: RN or Physician to activate a stroke alert for NIHSS increase of > / = 3 points. Coma Scale [Assess] -Eye Opening Spontaneous -Motor Obeys Commands -Verbal Oriented [Total] -Coma Scale Total 15
== END 2025-04-07 17:12 | disposition home or self-care (01) | DRG 305 ==
LOC: ED 02:35 → PCU 03:51
PROVIDERS: Admitting Provider Internal Medicine; Emergency Provider Emergency Medicine; PCP Internal Medicine
DX: I16.0 Hypertensive urgency (principal); I82.402 Acute embolism and thrombosis of unspecified deep veins of left lower extremity; I10 Essential (primary) hypertension; F32.A Depression, unspecified; I69.320 Aphasia following cerebral infarction; Z68.35 Body mass index [BMI] 35.0-35.9, adult; F41.9 Anxiety disorder, unspecified; M19.90 Unspecified osteoarthritis, unspecified site; E66.812 Obesity, class 2; Z86.711 Personal history of pulmonary embolism; Z86.718 Personal history of other venous thrombosis and embolism; Z79.899 Other long term (current) drug therapy; Z79.01 Long term (current) use of anticoagulants
CPT/HCPCS: 70450; 70496; 70498; 70551; 80048; 80053; 80061; 80307; 81001; 82077; 83036; 84439; 84443; 84481; 85025; 93005; 93306; 93880; 93971; 97161; 97166; 97802; 99283; 99284; Q9957; Q9967; A4216; C8929

== ENCOUNTER 2025-04-24 08:04 | Emergency (ER) | payer MEDICARE, SELFPAY ==
[2025-04-24 08:05] VITALS: BP 174/112; PULSE 85; RESP 16; TEMP 36.2; O2SAT 93; BMI 36.2
[2025-04-24 08:06] VITALS: BP 172/76; PULSE 90; RESP 18; TEMP 37.1; O2SAT 94
--- NOTE | 2025-04-24 08:32 | EX.ED.UPPERE ---
HPI History of Present Illness Chief Complaint: Upper Extremity Injury Narrative Narrative: Patient is a 75-year-old female with past medical history of DVT on Eliquis, PE, depression, anxiety who presented to the emergency department the chief complaint of right hand swelling. States that about 2 days ago her cat was sitting in her lap she went to pick the cat up and put it down and notes that the cat scratched her hand. States that this morning when she woke up she noted significant swelling in her right hand prompting her to come here for further evaluation management. Patient states that she was not bitten by the cat. Patient states that she is not currently on any antibiotics [facility] Medical History Depression with anxiety Obesity (BMI 30-39.9) Acute deep vein thrombosis (DVT) of left lower extremity Vaginal candidiasis Acute bronchitis, unspecified Kidney stones Pulmonary embolism Adult-onset Still's disease Depression Anxiety Breast cancer Endometriosis Bowel obstruction Home Medications Medication Instructions Recorded Last Taken Type alprazolam 0.25 mg tablet 0.25 mg PO TID PRN PRN Insomnia 08/16/14 Unknown History escitalopram oxalate 10 mg tablet 10 mg PO QHS anxiety 08/16/14 Unknown History apixaban 5 mg (74 tabs) tablets in See Rx Instructions .Route 04/04/25 Unknown Rx a dose pack (Eliquis DVT-PE Treat .COMPLEX blood thinner #74 tabs 30D Start) atorvastatin 40 mg tablet 40 mg PO QHS #30 tabs 04/07/25 Unknown Rx meclizine 12.5 mg tablet 12.5 mg PO TID PRN dizziness #14 04/07/25 Unknown Rx tabs doxycycline hyclate 100 mg capsule 100 mg PO BID #10 caps 04/24/25 Unknown Rx escitalopram oxalate 20 mg tablet 20 mg PO DAILY 04/24/25 Unknown History Allergy/AdvReac Type Severity Reaction Status Date / Time ampicillin Allergy Rash Verified 04/24/25 08:06 prednisone AdvReac SHAKINESS Verified 04/24/25 08:06 Surgical History H/O lumpectomy History of bowel resection History of colostomy reversal H/O: hysterectomy Social History household members: family housing: house Smoking Status: Unknown if ever smoked ROS ROS ED ROS Narrative Constitutional: Denies any fevers or chills Neurological: Denies any numbness, weakness, tingling Musculoskeletal: Complains of right hand swelling Skin: Complains of right hand redness EXAM Physical Exam Narrative Exam Narrative: General: Patient was lying in bed rest comfortably did not appear to be in acute distress Head: Atraumatic, normocephalic Eyes: PERRL bilaterally, EOMI bilaterally, no conjunctival injection noted Neck: Soft, supple, trachea midline Cardiovascular: Regular rate Extremities: +5/5 strength noted in the bilateral lower extremities, radial pulses +2/4 in the right upper extremity Neurological: Patient follow commands and that she was at [facility] year 2024 sensation grossly intact in the median ulnar radial nerve distribution bilaterally Skin: Patient has erythema to the right hand diffusely Const Vital Signs: 04/24/25 08:05 04/24/25 08:06 Temperature 97.2 F L 98.7 F Temperature Source Temporal Oral Pulse Rate 85 90 Respiratory Rate 16 18 Blood Pressure 174/112 H 172/76 H Blood Pressure Mean 132 108 Pulse Ox 93 94 Oxygen Delivery Method Room Air Room Air MDM MDM MDM Narrative Medical decision making narrative: Patient is a 75-year-old female who presented to the emergency department with a chief complaint of right hand redness and swelling after being scratched by her cat. On the differential diagnose includes but not limited to cellulitis, DVT although the swelling is to your hand and she is anticoagulated on Eliquis. Once workup is obtained and reviewed she will be reevaluated. Patient be given a gram Rocephin here in the emergency department. Once again I asked the patient multiple times and she confirmed that she was scratched and was not bitten by the cat. Patient's CBC reviewed showed no evidence leukocytosis white cell normal 10.6, he was 13.2, plate count was 247. Patient 136, potassium normal 4.3, creatinine normal 1. Discussed results with the patient and she was vies to keep her arm elevated to help reduce the swelling out of her right hand. She will be placed on doxycycline and was advised to keep a close eye on this there was skin marker used to outline the area of redness. She is advised that if this redness spreads outside of the marker after 24 hours of antibiotics she should return to the emergency department or return with any other concerns. She was advised to follow-up with her doctor in the outpatient setting as well all question concerns answered she was discharged home in stable condition Discharge Plan Triage Chief Complaint: Upper Extremity Injury ED Provider: Darryn Baeza Dx/Rx/DC Orders Clinical Impression: Cellulitis of hand, right, Cat scratch, History of deep vein thrombosis Prescriptions: New doxycycline hyclate 100 mg capsule 100 mg PO BID Qty: 10 0RF No Action alprazolam 0.25 MG tablet 0.25 mg PO TID PRN PRN (Reason: Insomnia) escitalopram oxalate 10 MG tablet 10 mg PO QHS Eliquis DVT-PE Treat 30D Start 5 mg (74 tabs) Tablets,Dose Pack See Rx Instructions .ROUTE .COMPLEX Qty: 74 0RF Rx Instructions: orally per package directions escitalopram oxalate 20 mg tablet 20 mg PO DAILY atorvastatin 40 mg Tablet 40 mg PO QHS Qty: 30 0RF meclizine 12.5 mg tablet 12.5 mg PO TID PRN (Reason: dizziness) Qty: 14 0RF Primary Care Provider: Nata Rea Referrals: Nata Rea MD [Primary Care Provider, Internal Medicine] Activity Restrictions/Additional Instructions: Follow-up with your doctor in the outpatient setting. Take antibiotics as prescribed. Return with worsening symptoms or any concerns. If the area of redness is spreading outside of the area that is marked on your hand after 24 hours of antibiotics you should return to the emergency department. Print Language: Bhutanese Disposition Disposition: Home, Self Care
[2025-04-24 08:47] LABS: Hematocrit 40.0 % (37-47); Hemoglobin 13.2 g/dL (12.0-15.0); Immature Granulocytes Count 0.050 X10^3/uL (0.0-0.0); Mean Corp Hgb Conc 33.0 g/dL (32-36); Mean Corpuscular Volume 95.0 fL (81-99); Mean Platelet Vol. 10.9 fl (6.2-12.0); NRBC Flagged by Analyzer 0 % (0-5); Platelet Count 247 K/mm3 (150-450); RBC Distribution Width CV 12.5 % (11.6-14.6); RBC Distribution Width SD 43.5 fl (35.1-43.9); Red Blood Count 4.21 M/mm3 (4.2-5.4); White Blood Count 10.6 K/mm3 (4.4-11.0)
[2025-04-24] MEDS: 0.9% Normal Saline (1000mL) 1,000 ML 999 ML IV (08:47)
[2025-04-24] MEDS: DiphenhydrAMINE 50 MG/ML Syringe 25 MG IV (08:47)
[2025-04-24 09:05] LABS: Anion Gap 11 (5-15); BUN 13 mg/dL (4-19); BUN/Creat Ratio 13.4 RATIO (10-20); Calcium,Total 8.4 mg/dL (7.6-11.0); Carbon Dioxide 18.7 mmol/L (21.0-32.0); Chloride 106 mmol/L (98-108); Estimated Creatinine Clearance 50.66 ml/min (50-250); Glucose 101 mg/dL (70-99); Potassium 4.3 mmol/L (3.3-5.1)
[2025-04-24 09:22] VITALS: BP 172/83; PULSE 63; RESP 18; TEMP 36.8; O2SAT 100
--- NOTE | 2025-04-24 09:24 | ED.RN ---
DR Baeza notified aware of bp 172/83, ok to be discharged per Doctor.
== END 2025-04-24 09:30 | disposition home or self-care (01) ==
PROVIDERS: Emergency Provider Emergency Medicine; PCP Internal Medicine; Visit Provider Emergency Medicine
DX: L03.113 Cellulitis of right upper limb (principal); Z86.718 Personal history of other venous thrombosis and embolism; Z86.711 Personal history of pulmonary embolism
CPT/HCPCS: 96365; 96375; 96376; 99282; 80048; 85025; A4216

== ENCOUNTER 2025-04-26 11:37 | Inpatient (IN) | payer MEDICARE, SELFPAY ==
[2025-04-26] VITALS (10 sets, daily range): BP systolic 137–177; BP diastolic 71–105; PULSE 79–98; RESP 16–18; TEMP 36.9; O2SAT 96–100; BMI 36.1
--- NOTE | 2025-04-26 14:45 | EKG12_ITS ---
Test Reason : Blood Pressure : */* mmHG Vent. Rate : 78 BPM Atrial Rate : 78 BPM P-R Int : 202 ms QRS Dur : 76 ms QT Int : 422 ms P-R-T Axes : 46 -3 41 degrees QTcB Int : 481 ms Normal sinus rhythm Low voltage QRS QTcB >= 480 msec Abnormal ECG Confirmed by JEFE CH, ZEESHAN ([id number]), dictionary editor ANTONIETA GONZALES ([id number]) on 05/01/2025 8:24:27 AM Referred By: Confirmed By: EZESHAN MAYBERRY MD
--- NOTE | 2025-04-26 14:50 | EX.ED.DYSGE1 ---
HPI History of Present Illness Chief Complaint: Cellulitis Narrative Narrative: Patient is a 75-year-old female with past medical history of anxiety, depression, pulm embolism on Eliquis who presents to the emergency department with a chief complaint of redness and swelling of her bilateral hands and in her left inner arm. She states that she was here recently was placed on antibiotics and was told to return with worsening symptoms or concerns. She states that today she woke up with worsening redness in her right hand as well as swelling and redness in her left hand and her left upper extremity. Patient denies any other new injuries on the left side [facility] Medical History Depression with anxiety Obesity (BMI 30-39.9) Acute deep vein thrombosis (DVT) of left lower extremity Vaginal candidiasis Acute bronchitis, unspecified Kidney stones Pulmonary embolism Adult-onset Still's disease Depression Anxiety Breast cancer Endometriosis Bowel obstruction Home Medications Medication Instructions Recorded Last Taken Type alprazolam 0.25 mg tablet 0.25 mg PO TID PRN PRN Insomnia 08/16/14 Unknown History escitalopram oxalate 10 mg tablet 10 mg PO QHS anxiety 08/16/14 Unknown History apixaban 5 mg (74 tabs) tablets in See Rx Instructions .Route 04/04/25 04/26/25 Rx a dose pack (Eliquis DVT-PE Treat .COMPLEX blood thinner #74 tabs 30D Start) atorvastatin 40 mg tablet 40 mg PO QHS #30 tabs 04/07/25 Unknown Rx meclizine 12.5 mg tablet 12.5 mg PO TID PRN dizziness #14 04/07/25 Unknown Rx tabs doxycycline hyclate 100 mg capsule 100 mg PO BID #10 caps 04/24/25 Unknown Rx escitalopram oxalate 20 mg tablet 20 mg PO DAILY 04/24/25 Unknown History Allergy/AdvReac Type Severity Reaction Status Date / Time ampicillin Allergy Rash Verified 04/26/25 11:39 prednisone AdvReac SHAKINESS Verified 04/26/25 11:39 Family History no significant family his Surgical History H/O lumpectomy History of bowel resection History of colostomy reversal H/O: hysterectomy Social History household members: family housing: house Smoking Status: Never smoker ROS ROS ED ROS Narrative Constitutional: Denies any fevers, chills, headaches Eyes: Denies change in vision double vision blurry vision Cardiovascular: Denies chest pain Respiratory: Coughing wheezing shortness of breath Neurological: Denies any numbness, recent tingling Musculoskeletal: Complains of swelling and redness to the bilateral upper extremity/hands as well as her left inner arm Skin: Complains of rash as noted above EXAM Physical Exam Narrative Exam Narrative: General: Patient is lying in bed rest comfortably did not appear to be in acute distress Head: Atraumatic, normocephalic Eyes: PERRL bilaterally, EOMI bilaterally, no conjunctival injection noted Neck: Soft, supple, trachea midline Cardiovascular: Regular rate and rhythm Respiratory: Clear to auscultation bilaterally Musculoskeletal: Compartments are soft and compressible in the bilateral extremities Extremities: +5/5 strength noted in the bilateral lower extremities, radial pulses +2/4 in the bilateral extremities Neurological: Patient follow commands knew that she was at [facility] year is 2024 Skin: Patient has erythema extending outside the area as marked in her right hand as well as a few fluid-filled blisters along her radial aspect of her right thumb. Patient also has redness and swelling of her left hand and notes that she has redness in her left in her arm with some bruising at the top of the rash no petechiae no sloughing of the skin noted Const Vital Signs: 04/26/25 11:37 04/26/25 13:37 04/26/25 14:11 Temperature 98.4 F 98.4 F Temperature Source Oral Oral Pulse Rate 98 80 79 Respiratory Rate 16 18 Blood Pressure 137/91 H 167/71 H 167/71 H Blood Pressure Mean 106 103 103 Pulse Ox 98 100 100 Oxygen Delivery Method Room Air Room Air 04/26/25 15:00 04/26/25 15:00 04/26/25 15:57 Temperature 98.4 F Temperature Source Oral Pulse Rate 87 Respiratory Rate 18 Blood Pressure 175/80 H 175/80 H Blood Pressure Mean 111 111 Pulse Ox 97 96 Oxygen Delivery Method Room Air Room Air 04/26/25 16:00 04/26/25 16:34 Temperature 98.4 F 98.4 F Temperature Source Oral Pulse Rate 82 82 Respiratory Rate 18 18 Blood Pressure 169/97 H 169/97 H Blood Pressure Mean 121 121 Pulse Ox 96 96 Oxygen Delivery Method Room Air MDM MDM MDM Narrative Medical decision making narrative: Patient is a 75-year-old female who presents to the emergency department with the complaint of worsening redness and swelling of the right hand as well as now on the left hand and the left inner arm originally once again her injury was from a cat scratch on the right hand I saw her originally when she presented 2 days ago. She has significantly worsened and will give her IV antibiotics vancomycin and Rocephin. On the differential diagnose includes but not limited to cellulitis that failed outpatient therapy, blood clots although have low suspicion for this as she is chronically anticoagulated on Eliquis not missing her doses. Once workup is obtained reviewed she will be reevaluated. Patient CBC was significant leukocytosis of 11,000, he was 13.5, plate count 283. Patient sodium normal 137, potassium normal 4.2, creatinine 0.80. Patient AST and ALT were 36 and 31 respectively. Patient's x-rays of her hands bilaterally reviewed by myself pending official radiology read showed soft tissue swelling no evidence of osteomyelitis. Patient's EKG reviewed showed sinus rhythm with a rate of 78 bpm FL interval 202. Did discuss case with hospitalist Dr. Crowe who accept patient for admission. Patient was notified is agreeable this plan all question concerns answered. Lab Data Labs: Laboratory Results - last 24 hr 04/26/25 04/26/25 15:06 15:45 WBC 11.7 H RBC 4.34 Hgb 13.5 Hct 40.5 MCV 93.3 MCH 31.1 MCHC 33.3 RDW Std Deviation 42.6 RDW Coeff of Funmi 12.4 Plt Count 283 MPV 11.2 Immature Gran % (Auto) 0.300 Neut % (Auto) 81.7 H Lymph % (Auto) 11.2 L [place] % (Auto) 4.6 Eos % (Auto) 2.0 Baso % (Auto) 0.2 Absolute Neuts (auto) 9.6 H Absolute Lymphs (auto) 1.31 Nucleated RBC % 0 Sodium 137 Potassium 4.2 Chloride 105 Carbon Dioxide 18.8 L Anion Gap 13 BUN 11 Creatinine 0.80 Estim Creat Clear Calc 63.18 Est GFR (MDRD) Non-Af 77 BUN/Creatinine Ratio 13.1 Glucose 96 Lactic Acid 1.0 Calcium 9.0 Total Bilirubin 0.75 AST 36 H ALT 31 Alkaline Phosphatase 105 H Total Protein 6.8 Albumin 3.7 Globulin 3.2 Albumin/Globulin Ratio 1.2 Discharge Plan Dx/Rx/DC Orders Clinical Impression: Cellulitis of hand, Cellulitis of arm, left, Anticoagulated on apixaban, Cat scratch Disposition Disposition: [facility] D/C Safety Score for UGIB Assessment Drummond-Blatchford Bleeding Score (GBS): Stratifies upper GI bleeding patients who are "low-risk" and candidates for outpatient management. Hemoglobin, BUN, Recent Vital Signs: Hgb 13.5 g/dL (12.0-15.0) 04/26/25 15:45 BUN 11 mg/dL (4-19) 04/26/25 15:06 Pulse Rate 82 Blood Pressure 169/97 Score Interpretation: Score of 0: A GBS of 0 is a “Low Risk” GI bleed, and is highly sensitive (99.6% in a 2007 retrospective study) for predicting which patients did not require any “medical intervention”: blood transfusion, endoscopy, or surgery. This was confirmed in a 2009 [facility] study where patients with a score of 0 were actually discharged and had no GI bleeding mortality at 6 month followup Score above 0: A GBS greater than zero suggests a “High Risk” GI bleed that is likely to require “medical intervention”: transfusion, endoscopy, or surgery. A higher GBS also correlated with a higher likelihood of needing intervention Scores >/= 6 are associated with >50% risk of needing intervention D/C Safety Score for LGIB Assessment Assessment Tool: Readmission and adverse event risk in patients with acute lower GI bleeding. Hemoglobin and Recent Vital Signs: Hgb 13.5 g/dL (12.0-15.0) 04/26/25 15:45 Pulse Rate 82 04/26/25 16:34 Blood Pressure 169/97 04/26/25 16:34 Score Interpretation: Probability Percentage of safe discharge (absence of rebleeding, blood transfusion, therapeutic intervention, 28 day readmission, or ) Score of 8 or below: Consider discharge, with appropriate precautions. Score of 9 or above: Discharge NOT recommended. Consider admission with further workup and resuscitation as necessary.
--- NOTE | 2025-04-26 15:35 | RAD_ITS ---
PROCEDURE: HAND MIN 3 VIEWS 04/26/2025 REASON FOR EXAM: CELLULITIS TECHNIQUE: Procedure Code: VALENTIN Modality: DX Procedure: HAND MIN 3 VIEWS Laterality: Left COMPARISON: none RAD/Hand Min 3 Views IMPRESSION: No acute fracture or dislocations. Scattered mild degenerative changes. Extensive soft tissue edema/inflammation about the dorsal aspect of the hand. No radiographic foreign body. Reading Location: [id number]
--- NOTE | 2025-04-26 15:37 | RAD_ITS ---
PROCEDURE: HAND MIN 3 VIEWS 04/26/2025 REASON FOR EXAM: CELLULITIS TECHNIQUE: Procedure Code: VALENTIN Modality: DX Procedure: HAND MIN 3 VIEWS Laterality: Right COMPARISON: none RAD/Hand Min 3 Views IMPRESSION: No acute fracture or dislocations. Scattered mild degenerative changes. Moderate soft tissue edema/inflammation about the right head, less compared to left hand. No radiographic foreign body. Reading Location: [id number]
[2025-04-26] MEDS: 0.9% Normal Saline (1000mL) 1,000 ML 999 ML IV (15:48)
[2025-04-26 16:00] LABS: Hematocrit 40.5 % (37-47); Hemoglobin 13.5 g/dL (12.0-15.0); Immature Granulocytes Count 0.040 X10^3/uL (0.0-0.0); Mean Corp Hgb Conc 33.3 g/dL (32-36); Mean Corpuscular Volume 93.3 fL (81-99); Mean Platelet Vol. 11.2 fl (6.2-12.0); NRBC Flagged by Analyzer 0 % (0-5); Platelet Count 283 K/mm3 (150-450); RBC Distribution Width CV 12.4 % (11.6-14.6); RBC Distribution Width SD 42.6 fl (35.1-43.9); Red Blood Count 4.34 M/mm3 (4.2-5.4); White Blood Count 11.7 K/mm3 (4.4-11.0)
[2025-04-26] MEDS: Ceftriaxone 2 GM in 0.9% Normal Saline (50mL MB+) 50 ML IV (16:00)
[2025-04-26 16:09] LABS: AST(SGOT) 36 U/L (<=31); Alanine Aminotransfer ALT/SGPT 31 U/L (<=34); Albumin, Serum 3.7 g/dL (3.4-4.8); Alkaline Phosphatase 105 U/L (35-104); Anion Gap 13 (5-15); BUN 11 mg/dL (4-19); BUN/Creat Ratio 13.1 RATIO (10-20); Calcium,Total 9.0 mg/dL (7.6-11.0); Carbon Dioxide 18.8 mmol/L (21.0-32.0); Chloride 105 mmol/L (98-108); Estimated Creatinine Clearance 63.18 ml/min (50-250); Globulin 3.2 g/dL (2.2-4.2); Glucose 96 mg/dL (70-99); Potassium 4.2 mmol/L (3.3-5.1)
[2025-04-26] MEDS: Vancomycin HCl 1,250 MG in 0.9% Normal Saline (250mL Bag) 250 ML 167 MG IV (17:16)
[2025-04-26 17:44] LABS: Prothrombin Time (Protime)PT. 16.3 SECONDS (11.7-14.9)
[2025-04-26 17:45] LABS: Partial Thromboplast Time 31.0 Seconds (24.1-36.2)
--- NOTE | 2025-04-26 17:47 | CASEMGMT ---
Social Work Patients last face to face assessment was completed less than 30 days ago. SW verified there have been no changes. Patient may be interested in completing HPOA and LW while admitted. Plans to return home when medically ready. Alanna Reed, HOME HEALTH ATTENDANT, CURLING MACHINE OPERATOR
--- NOTE | 2025-04-26 18:25 | CT_ITS ---
PROCEDURE: CT EXTREMITY UPPER WITHOUT CONTRAST - LEFT 04/26/2025 REASON FOR EXAM: EXTREME SWELLING AND REDNESS OF THE LEFT ARM/HAND TECHNIQUE: Procedure Code: CTEUWO Modality: CT Procedure: EXTREMITY UPPER WITHOUT CONTRA CT left upper extremity without contrast. Coronal and Sagittal reconstructions were provided. One or more dose reduction techniques were used (e.g., Automated exposure control, adjustment of the mA and/or kV according to patient size, use of iterative reconstruction technique. RADIATION DOSE SUMMARY: DLP: 3306.48 mGycm COMPARISON: Radiographs earlier same day. FINDINGS: No acute fracture or dislocation. Preserved visualized joint spaces. Normal bone mineralization. No lytic or blastic lesion, or aggressive osseous erosion or periosteal reaction appreciated in the [id number]. Nonspecific mild generalized subcutaneous edema of the left arm, and visualized hand/wrist, possibly with mild cellulitic changes. No drainable fluid collection/abscess or subcutaneous emphysema is seen. CT/Extremity Upper without Contra IMPRESSION: 1. No acute or aggressive osseous abnormality. 2. Nonspecific generalized subcutaneous edema, possibly with cellulitic changes . 3. No drainable fluid collection/abscess or subcutaneous emphysema visualized. Reading Location: [id number]
[2025-04-26 19:07] LABS: Mucous, Urine 0 SEEN /hpf (<or=2+); Red Blood Cells-Urine 0 SEEN /hpf (0-5)
--- OUTSIDE RECORDS SUMMARY | 2025-04-26 19:38 | XMS RPT_ITS | CCD ---
Author Organization [facility] Care Team Providers Care Collarette Separator Name Role Phone Álvaro CH, Jennifer Primary Care Provider Dr. Jennifer Santos Primary Care Provider Dr. Bran Alston Attending Provider Dr. Venkat Mustafa Referring Provider Jennifer Santos MD Primary Care Provider Jennifer Santos MD Primary Care Provider DR JENNIFER SANTOS MD [facility] Attending Pito SANTOS MD, DR JENNIFER Funk Primary Care Kimberly JIMENEZ MD, LENA Attending Pito SANTOS MD, DR JENNIFER Funk Primary Care Kimberly Santos MD, Jennifer Primary Care Provider Older ROLL SCALE MAN.LACY, Kelle Unavailable Dr. Jennifer Santos MD Primary Care Provider Dr. Jennifer Santos MD Referring Provider Ki Schultz Attending Provider JENNIFER SANTOS Primary Care Unavailable JENNIFER SANTOS Primary Care Unavailable KELLE PETER Attending Unavailable JENNIFER SANTOS Primary Care Unavailable Álvaro CH, Dr. Peace Primary Care Physician Dr. Jennifer Santos MD Referring Provider Ki Schultz Attending Physician Edi CH, Dr. Valerio Attending Physician [phone] Dr. Teodoro Daley MD Emergency Department Physician Alecia CH, Dr. Sotomayor Attending Physician Edi CH, Dr. Valerio Referring Provider Moon CH, Dr. Robledo Emergency Department Phys ician Celaya DO, Dr. Pedraza Admitting Physician Katherine vailable de [facility], Dr. Pedraza Nurse Practitioner Unav ailable Thong CH, Neville Nurse Practitioner Unavailable Maru CH, Dr. Francis Nurse Practitioner Savi CH, Renée Nurse Practitioner Unavailab juno Baker DO, Dr. Guerrier Nurse Practitioner Radha CH, Dr. Siddiqi Nurse Practitioner Lavon CH, Dr. Villarreal Nurse Practitioner Kamran CH, Dr. Perea Nurse Practitioner Harvey CH, Dr. Charles Nurse Practitioner Theo CH, Dr. Betancur Nurse Practitioner Renato CH, Dr. Hoffman Nurse Practitioner Michael THOMPSON, Dr. Fleming Nurse Practitioner Maykel CH, Sara Nurse Practitioner Mikala CH, Dr. Santos Nurse Practitioner Brandon CH, Dr. Domingo Nurse Practitioner Obed CH, Dr. Romero Nurse Practitioner Indy CH, Dr. Lien Valentine Nurse Practitioner Isaac CH, Dr. Lowry Nurse Practitioner Myrna CH, Dr. Rodriguez Nurse Practitioner Keena CH, Dr. Sepulveda Nurse Practitioner Giovani CH, Dr. Kaye Nurse Practitioner Kimberly Blake MD, [facility] Kimberly Courtney DO, Dr. Sotomayor Attending Physician Dawna CH, Dr. Durham Attending Physician [phone] [facility] Unavailable Thong, Neville Consulting Unavailable Milo Celaya Attending Unavailable Milo Celaya Admitting Unavailable Adeli, Amir Consulting Unavailable Hinduja, Renée Consulting Unavailable Samuel, Chey Consulting Unavailable Zha, Neeru Consulting Unavailable Lavon, Phil Consulting Unavailable Kamran, Brit Consulting Unavailable Bittar, Melvin Consulting Unavailable Pipe Venegas Consulting Unavailable Gross, Dalton Consulting Unavailable Franchini, Bernadette Consulting Unavailable BeSara hagan Consulting Unavailable Gusler, Tom Consulting Unavailable Brandon, Chayo Consulting Unavailable Ridha, Mohamed Consulting Unavailable Zaghlouleh, Mhd Serge Consulting UnavailAlen Thurman Consulting Unavailable Norris, Rami Consulting Unavailable Keena, Derick Consulting Unavailable Giovani, Mikki Consulting Unavailable Hayden, Davidsef Consulting Unavailable Milo Celaya Consulting Unavailable [facility] Care Unavailable Darryn Baeza Attending Unavailable [facility] Care Unavailable Daley, Teodoro Attending Unavailable [facility] Care Unavailable Thong Neville Consulting Unavailable Milo Celaya Admitting Unavailable Bran Courtney Attending Unavailable Adeli, Amir Consulting Unavailable Hinduja, Renée Consulting Unavailable Samuel, Chey Consulting Unavailable Zha, Neeru Consulting Unavailable Lavon, Phil Consulting Unavailable Kamran, Brit Consulting Unavailable Bittar, Melvin Consulting Unavailable Pipe Venegas Consulting Unavailable Gross, Dalton Consulting Unavailable Franchini, Bernadette Consulting Unavailable Sara Brar Consulting Unavailable Guswayne, Tom Consulting Unavailable Brandon, Chayo Consulting Unavailable Ridha, Mohamed Consulting Unavailable Zaghlouleh, Mhd Serge Consulting UnavailAlen Thurman Consulting Unavailable Norris, Rami Consulting Unavailable Keena, Derick Consulting Unavailable Giovani, Mikki Consulting Unavailable Hanpatricia, Yousef Consulting Unavailable Milo Celaya Consulting Unavailable Ki Schultz Attending Unavailable [facility] Care Unavailable [facility] Referring Unavailable [facility] Unavailable Roselia Toney Attending Unavailable [facility] Care Unavailable Bran Alston Attending Unavailable Daley, Teodoro Referring Unavailable Allergies Allergy Classification Reported Allergen(s) Allergy Type Date of Onset Reaction(s) Facility (20 sources) Ampicillin; Translations: [ampicillin] Drug Allergy 6 Rash, Itching [facility] (20 sources) apixaban; Translations: [APIXABAN] Drug Allergy 2 Swelling, Anaphylaxis [facility] Work Phone: (20 sources) rivaroxaban; Translations: [RIVAROXABAN] Drug Allergy 2 Swelling [facility] Work Phone: (6 sources) predniSONE; Translations: [prednisone] Drug Allergy 3 [facility] (1 source) Ampicillin Drug Allergy 5 [facility] Repository (1 source) predniSONE Drug Allergy 5 [facility] Repository Medications Current Medications Medication Drug Class(es) Dates Sig (Normalized) Sig (Original) ALPRAZolam 0.25 mg oral tablet (20 sources) Benzodiazepine Start: 09-27-2015 take 1 tablet by mouth once daily ALPRAZolam (XANAX) 0.25 mg tablet Take 1 tablet by mouth once daily. 09/27/2015 Active Start: 08-16-2014 take 1 tablet by mouth three t imes daily as needed Comment on above: Take 1 tablet by bossman th once daily. apixaban 5 mg oral tablet (7 sources) Factor Xa Inhibitor Start: 04-04-2025 take 1 tablet by mouth once Start: 02-18-2022 End: 03-02-2022 take 1 tablet by mouth twice daily Apixaban (Eliquis Dvt-Pe Treat 30d Start) 5 mg (74 tabs) tablets,dose pack Discontinued 5 mg PO TWICE A DAY 74 0 February 17, 2022 11:00pm March 02, 2022 9:37pm aspirin 81 mg delayed release oral tablet (20 sources) Platelet Aggregation Inhibitor, Nonsteroidal Anti-inflammatory Drug Start: 08-28-2023 End: 04-07-2025 Aspirin (Adult Low Dose Aspirin) 81 mg tablet,delayed release (DR/EC) Discontinued 81 mg PO DAILY August 27, 2023 11:00pm April 06, 2025 11:12pm take 81 mg by mouth once daily a spirin (ASPIR-81 ORAL) Take 81 mg by mouth once daily. Active End: 07-29-2021 aspirin, enteric coated (ASP IRIN, ENTERIC COATED) 81 mg EC tablet Take 81 mg by mouth as needed. 0 07/29/2021 Discontinued Comment on above: Take 81 mg by mouth as needed. Take 81 mg by mouth once daily. atorvastatin 40 mg oral tablet (1 source) HMG-CoA Reductase Inhibitor Start: 04-07-2025 take 1 tablet by mouth at bedtime Start: 04-07-2025 take 1 tablet by mouth at bedt joi dabigatran etexilate 150 mg oral capsule (15 sources) Start: 03-17-2022 End: 05-21-2023 take 1 capsule by mouth twice daily Pradaxa 150 mg oral capsule TAKE 1 CAPSULE BY MOUTH TWICE DAILY Start Date: 05/07/23 Status: Ordered Comment on above: Take 1 capsule by [facility] twice daily. doxycycline monohydrate 100 mg oral capsule (4 sources) Tetracycline-cl ass Drug Start: 01-03-2025 End: 04-07-2025 take 1 capsule by mouth twice daily Doxycycline Monohydrate 100 mg capsule Discontinued 100 mg PO TWICE A DAY 20 0 January 02, 2025 11:00pm April 06, 2025 11:12pm Start: 11-17-2023 End: 11-27-2023 take 1 capsule by mouth twice daily doxycycline hyclate (VIBRAMYCIN) 100 mg capsule Indications: Sinobronchitis Take 1 capsule (100 mg) by mouth two times a day for 10 days. 20 capsule 0 11/17/2023 11/27/2023 Active escitalopram 10 mg oral tablet (20 sources) Serotonin Reuptake Inhibitor Start: 08-16-2014 take 1 tablet by mouth at bedtime Comment on above: Take 10 mg by mouth once daily. fexofenadine hydrochloride 180 mg oral tablet (2 sources) Histamine-1 Receptor Antagonist Start: 03-17-2022 End: 04-16-2022 take 1 tablet by mouth once daily fexofenadine (TRAVIS) 180 mg tablet Indications: Allergy to antithrombotic medication Take 1 tablet by mouth once daily. 30 tablet 0 03/17/2022 04/16/2022 Active Comment on above: Take 1 tablet by [facility] once daily. fluconazole 200 mg oral tablet (4 sources) Azole Antifungal Start: 01-03-2025 End: 10-24-2025 take 1 tablet by mouth once daily Fluconazole 200 mg tablet Discontinued 200 mg PO DAILY 1 0 January 02, 2025 11:00pm April 06, 2025 11:13pm please remind pt to NOT take Alprazolam while on this medication Start: 05-11-2024 End: 05-12-2024 take 1 tablet by mouth once daily [...] Take 1 tablet by bossman once daily. meclizine hydrochloride 12.5 mg oral tablet (1 source) Antiemetic Start: 04-07-2025 take 1 tablet by mouth three times daily as needed for dizziness Start: 04-07-2025 take 1 tablet by bossman th three times daily as needed for dizziness mupirocin 0.02 mg/mg topical ointment (1 source) [...] 10/28/2023 Active predniSONE 20 mg oral tablet (8 sources) Start: 11-17-2023 End: 11-21-2023 take 2 tablets by mouth once daily at mealtime predniSONE (DELTASONE) 20 mg tablet Indications: Sinobronchitis Take 2 tablets by mouth once daily for 4 days. Take daily with food. 8 tablet 0 11/17/2023 11/21/2023 Active Start: 03-02-2022 End: 05-27-2023 take 3 tablets by mouth once daily Prednisone 20 mg tablet Discontinued 60 mg PO DAILY March 01, 2022 11:00pm May 27, 2023 1:36am Start: 03-02-2022 End: 05-27-2023 take 60 mg [...] Drug Class(es) Dates Sig (Normalized) Sig (Original) benzonatate 100 mg oral capsule (9 sources) [...] on above: Take 1 capsule by mo ut twice daily. cephalexin 500 mg oral capsule [...] after use. methylPREDNISolone 32 mg oral tablet (11 sources) Corticosteroid Start: 2022 End: 2023 take 1 tablet by mouth once daily Methylprednisolone 32 mg tablet Discontinued 32 mg PO DAILY 4 0 May 27, 2023 12:00am August 28, 2023 3:46pm Start: 05-07-2023 End: 09-04-2023 methylPREDNISolone (MEDROL D [...] once daily. rivaroxaban 20 mg oral tablet (7 sources) Factor Xa Inhibitor Start: 03-02-20 End: 08-28-19 take 1 tablet by mouth once daily at dinner Rivaroxaban (Xarelto) 20 mg tablet Discontinued 20 mg PO DAILY 30 0 March 01, 2022 11:00pm August 28, 2023 3:46pm must administer with evening meal Comment on [...] Classification Problem Date Documented Da te Episodic/Chronic Acute bronchitis (2 sources) Acute bronchitis; Translations: [Acute bronchitis, unspecified] 01-03-2025 Episodic Acute cerebrovascular disease (3 sources) Cerebrovascular accident; Translations: [Cerebral infarction due to unspecified occlusion or stenosis of right posterior cerebral artery] Onset: 5 04-07-2025 Chronic Adjustment disorders (20 sources) Adjustment disorder with [...] of malignant neoplasm of breast] 08-18-2022 Episodic Conditions associated with dizziness or vertigo (3 sources) Dizziness and giddiness; Translations: [Vertigo of central origin] Onset: 5 04-12-2025 Episodic Diseases of mouth; excluding dental (1 source) Disorder of lip; Translations: [Diseases of lips] Onset: Episodic Disorders of lipid metabolism (20 sources) Hyperlipidemia; Translations: [Hyperlipidemia, unspecified] Onset: 5 07-29-2021 Chronic Essential hypertension (4 sources) Hypertensive disorder; Translations: [Essential (primary) hypertension] Onset: 5 04-12-2025 Chronic Genitourinary symptoms and ill-defined conditions (20 sources) Female stress incontinence; Translations: [Stress incontinence (female) (male)] Onset: 8 08-24-2017 Chronic Genitourinary symptoms and ill-defined conditions (1 source) Increased frequency of urination; Translations: [Frequency of micturition] Episodic Inflammatory diseases of female pelvic organs (1 source) Acute vaginitis; Translations: [Acute vaginitis] Episodic Intestinal obstruction without hernia (12 sources) Small bowel obstruction; Translations: [Unspecified intestinal obstruction, unspecified as to partial versus complete obstruction] 07-19-2021 Episodic Mycoses (2 sources) Candidiasis of vagina; Translations: [Candidiasis of vagina] 01-03-2025 Episodic Nutritional deficiencies (20 sources) Vitamin D deficiency; Translations: [Vitamin D deficiency, unspecified] Onset: 5 10-31-2014 Chronic Other aftercare (6 sources) Long-term current use of anticoagulant; Translations: [nursing home (current) use of anticoagulants] 07-19-2021 Episodic Other aftercare (1 source) Anticoagulant effect; Translations: [nursing home (current) use of anticoagulants] 04-07-2025 Episodic Other circulatory disease (2 sources) Elevated blood-pressure reading without diagnosis of hypertension; [...] injuries and conditions due to external causes (5 sources) Angioedema; Translations: [Angioneurotic edema, initial encounter] 03-10-2022 Episodic Other injuries and conditions due to external causes (1 source) Angioneurotic edema, subsequent encounter; Translations: [Other specified aftercare] 05-21-2023 Episodic Other injuries and conditions due to external causes (4 sources) Angioedema of tongue; Translations: [Angioneurotic edema, initial encounter] 05-27-2023 Episodic Other lower respiratory disease (2 sources) Cough; Translations: [Acute cough] 11-17-2023 Episodic Other nervous system disorders (1 source) Expressive dysphasia; Translations: [Aphasia] 04-07-2025 Chronic Other nervous system disorders (1 source) Aphasia; Translations: [Aphasia] Onset: Chronic Other nutritional; endocrine; and metabolic disorders (2 sources) Body mass index 30+ - obesity; Translations: [Obesity, unspecified] 04-12-2025 Chronic Other nutritional; endocrine; and metabolic disorders (1 source) Obesity, unspecified; Translations: [Obesity, unspecified] Onset: Chronic Other skin disorders (1 source) Lip swelling; [...] Edema of foot; Translations: [Localized edema] Episodic Residual codes; unclassified (2 sources) Confusional state; Translations: [Disorientation, unspecified] 04-12-2025 Episodic Residual codes; unclassified (1 source) Disorientation, unspecified; Translations: [Disorientation, unspecified] Onset: 5 Episodic Screening and history of mental health and substance abuse codes (6 sources) H/O: depression; Translations: [Personal history of other mental and behavioral disorders] 07-08-2021 Episodic Skin and subcutaneous tissue infections (3 sources) Cellulitis of axilla; Translations: [Cellulitis of unspecified part of limb] Episodic Spondylosis; intervertebral disc disorders; other back problems (20 sources) Lumbar spondylosis; Translations: [Spondylosis without myelopathy or radiculopathy, lumbar region] Onset: 0 01-26-2020 Chronic Spondylosis; intervertebral disc disorders; other back problems (6 sources) Acute low back pain; Translations: [Acute low back pain without sciatica] 01-24-2020 Episodic Thyroid disorders (20 sources) Thyroid nodule; Translations: [Nontoxic single thyroid nodule] Onset: 5 07-26-2014 Chronic Unclassified (1 source) Vertigo of central origin; Translations: [Vertigo of central origin] Onset: 5 Urinary tract infections (1 source) Acute urinary [...] Facil ity Basic Metabolic Profile (BMP )on 04-24-2025 BUN/CRE 13.4 RATIO Normal 10-20 [facility] Comment on above: Performed By: #### L 500.2500, L100.0100 #### [facility] [address] [place], [address] Calcium [Mass/Vol] 8.4 mg/dL Normal 7.6-11.0 [facility] Comment on above: Performed By: #### L 500.2500, L100.0100 #### [facility] [address] [place], [address] Chloride [Moles/Vol] 106 mmol/L Normal 98-108 [facility] Comment on above: Performed By: #### L 500.2500, L100.0100 #### [facility] [address] [place], [address] CO2 [Moles/Vol] 18.7 mmol/L Low 21.0-32.0 [facility] Comment on above: Performed By: #### L 500.2500, L100.0100 #### [facility] [address] [place], [address] Creatinine [Mass/Vol] 1.00 mg/dL Normal 0.70-1.20 [facility] Comment on above: Performed By: #### L 500.2500, L100.0100 #### [facility] [address] [place], [address] ECRCL 50.66 ml/min Normal 50-250 [facility] Comment on above: Performed By: #### L 500.2500, L100.0100 #### [facility] [address] [place], [address] GAP 11 Normal 5-15 [facility] Comment on above: Performed By: #### L 500.2500, L100.0100 #### [facility] [address] [place], [address] GFR/1.73 sq M.predicted among non-blacks MDRD (S/P/Bld) [Vol rate/Area] 59 mL/min/{1.73_m2} Low >60 [facility] Comment on above: Result Comment: mL/m in/1.73m2 CKD-EPI Creatinine Equation (2020) Performed By: #### L 500.2500, L100.0100 #### [facility] [address] [place], [address] Glucose [Mass/Vol] 101 mg/dL High 70-99 [facility] Comment on above: Performed By: #### L 500.2500, L100.0100 #### [facility] [address] [place], [address] Potassium [Moles/Vol] 4.3 mmol/L Normal 3.3-5.1 [facility] Comment on above: Result Comment: Hemo lysis present, Results??could be affected. ?? Performed By: #### L 500.2500, L100.0100 #### [facility] [address] [place], [address] Sodium [Moles/Vol] 136 mmol/L Normal 133-145 [facility] Comment on above: Performed By: #### L 500.2500, L100.0100 #### [facility] [address] [place], [address] Urea nitrogen [Mass/Vol] 13 mg/dL Normal 4-19 [facility] Comment on above: Performed By: #### L 500.2500, L100.0100 #### [facility] [address] [place], [address] CBC W/Diff, Automatedon 11-1 0-5 Absolute Lymph 1.39 X10 3/uL Normal 0.83-4.51 [facility] Comment on above: Performed By: #### L 500.2500, L100.0100 #### [facility] [address] [place], [address] Absolute Neut 8.3 X10 3/uL High 2.0-7.7 [facility] Comment on above: Performed By: #### L 500.2500, L100.0100 #### [facility] [address] [place], [address] Basophils/100 WBC (Bld) 0.3 % Normal 0-1 [facility] Comment on above: Performed By: #### L 500.2500, L100.0100 #### [facility] [address] [place], [address] Eosinophils/100 WBC (Bld) 2.1 % Normal 0-5 [facility] Comment on above: Performed By: #### L 500.2500, L100.0100 #### [facility] [address] [place], [address] Erythrocyte distribution width (RBC) [Ratio] 12.5 % Normal 11.6-14.6 [facility] Comment on above: Performed By: #### L 500.2500, L100.0100 #### [facility] [address] [place], [address] Hematocrit (Bld) [Volume fraction] 40.0 % Normal 37-47 [facility] Comment on above: Performed By: #### L 500.2500, L100.0100 #### [facility] [address] [place], [address] Hemoglobin (Bld) [Mass/Vol] 13.2 g/dL Normal 12.0-15.0 [facility] Comment on above: Performed By: #### L 500.2500, L100.0100 #### [facility] [address] [place], [address] IG% 0.500 Normal 0.0-0.9 [facility] Comment on above: Result Comment: IG% - Immature Granulocytes (promyelocytes, myelocytes and metamyelocytes) > 1% indicates that a LEFT SHIFT is Present. Performed By: #### L 500.2500, L100.0100 #### [facility] [address] [place], [address] Lymphocytes/100 WBC (Bld) 13.2 % Low 19-41 [facility] Comment on above: Performed By: #### L 500.2500, L100.0100 #### [facility] [address] [place], [address] MCH (RBC) [Entitic mass] 31.4 pg Normal 27.0-32.0 [facility] Comment on above: Performed By: #### L 500.2500, L100.0100 #### [facility] [address] [place], [address] MCHC (RBC) [Mass/Vol] 33.0 g/dL Normal 32-36 [facility] Comment on above: Performed By: #### L 500.2500, L100.0100 #### [facility] [address] [place], [address] MCV (RBC) [Entitic vol] 95.0 fL Normal 81-99 [facility] Comment on above: Performed By: #### L 500.2500, L100.0100 #### [facility] [address] [place], [address] Monocytes/100 WBC (Bld) 5.9 % Normal 0-10 [facility] Comment on above: Performed By: #### L 500.2500, L100.0100 #### [facility] [address] [place], [address] Neutrophils/100 WBC (Bld) 78.0 % High 47-70 [facility] Comment on above: Performed By: #### L 500.2500, L100.0100 #### [facility] [address] [place], [address] Nucleated RBC (Bld) [#/Vol] 0 10*3/uL Normal 0-5 [facility] Comment on above: Performed By: #### L 500.2500, L100.0100 #### [facility] [address] [place], [address] Platelet mean volume (Bld) [Entitic vol] 10.9 fL Normal 6.2-12.0 [facility] Comment on above: Performed By: #### L 500.2500, L100.0100 #### [facility] [address] [place], [address] Platelets (Bld) [#/Vol] 247 10*3/uL Normal 150-450 [facility] Comment on above: Performed By: #### L 500.2500, L100.0100 #### [facility] [address] [place], [address] RBC (Bld) [#/Vol] 4.21 10*6/uL Normal 4.2-5.4 [facility] Comment on above: Performed By: #### L 500.2500, L100.0100 #### [facility] [address] [place], [address] RDW SD 43.5 fl Normal 35.1-43.9 [facility] Comment on above: Performed By: #### L 500.2500, L100.0100 #### [facility] [address] [place], [address] WBC (Bld) [#/Vol] 10.6 10*3/uL Normal 4.4-11.0 [facility] Comment on above: Performed By: #### L 500.2500, L100.0100 #### [facility] [address] [place], [address] Emergency Department Summary on 04-24-2025 Emergency Department Summary [facility] Medical Records Department [address] [place] [address] Emergency Department Summary 04/24/25 MR#: [id number] Acct: [id number] Name: ILENE SHAW Rep #: [id number] : 1950 75 From: Darryn Baeza DO PCP: Dr. Jennifer Santos MD Status:REG ER Location: ED HPI History of Present Illness Chief Complaint: Upper Extremity Injury Narrative Narrative: Patient is a 75-year-old female with past medical history of DVT on Eliquis, PE, depression, anxiety who presented to the emergency department the chief complaint of right hand swelling. States that about 2 days ago her cat was sitting in her lap she went to pick the cat up and put it down and notes that the cat scratched her hand. States that this morning when she woke up she noted significant swelling in her right hand prompting her to come here for further evaluation management. Patient states that she was not bitten by the cat. Patient states that she is not currently on any antibiotics [facility] Medical History Depression with anxiety Obesity (BMI 30-39.9) Acute deep vein thrombosis (DVT) of left lower extremity Vaginal candidiasis Acute bronchitis, unspecified Kidney stones Pulmonary embolism Adult-onset Still's disease Depression Anxiety Breast cancer Endometriosis Bowel obstruction Home Medications ???Medication ???Instructions ???Recorded ???Last Taken ???Type alprazolam 0.25 mg tablet 0.25 mg PO TID PRN PRN Insomnia Unknown History escitalopram oxalate 10 mg tablet 10 mg PO QHS anxiety 08/16/14 Unk nown History apixaban 5 mg (74 tabs) tablets in See Rx Instructions .Route 04/04 Unknown Rx a dose pack (Eliquis DVT-PE Treat .COMPLEX blood thinner #74 tabs 30D Start) atorvastatin 40 mg tablet 40 mg PO QHS #30 tabs 04/07/25 Unk nown Rx meclizine 12.5 mg tablet 12.5 mg PO TID PRN dizziness #14 1 Unknown Rx tabs doxycycline hyclate 100 mg capsule 100 mg PO BID #10 caps 04/24/25 Unknown Rx escitalopram oxalate 20 mg tablet 20 mg PO DAILY 04/24/25 Unknown H istory Allergy/AdvReac Type Severity Reaction Status Date / Time ampicillin Allergy Rash Verified 04/24/25 08:06 prednisone AdvReac SHAKINESS Verified 04/24/25 08:06 Surgical History H/O lumpectomy History of bowel resection History of colostomy reversal H/O: hysterectomy Social History household members: family housing: house Smoking Status: Unknown if ever smoked ROS ROS ED ROS Narrative Constitutional: Denies any fevers or chills Neurological: Denies any numbness, weakness, tingling Musculoskeletal: Complains of right hand swelling Skin: Complains of right hand redness EXAM Physical Exam Narrative Exam Narrative: General: Patient was lying in bed rest comfortably did not appear to be in acute distress Head: Atraumatic, normocephalic Eyes: PERRL bilaterally, EOMI bilaterally, no conjunctival injection noted Neck: Soft, supple, trachea midline Cardiovascular: Regular rate Extremities: +5/5 strength noted in the bilateral lower extremities, radial pulses +2/4 in the right upper extremity Neurological: Patient follow commands and that she was at [facility] year is 2024 sensation grossly intact in the median ulnar radial nerve distribution bilaterally Skin: Patient has erythema to the right hand diffusely Const Vital Signs: 04/24/25 08:05 04/24/25 08:06 Temperature 97.2 F L 98.7 F Temperature Source Temporal Oral Pulse Rate 85 90 Respiratory Rate 16 18 Blood Pressure 174/112 H 172/76 H Blood Pressure Mean 132 108 Pulse Ox 93 94 Oxygen Delivery Method Room Air Room Air MDM MDM MDM Narrative Medical decision making narrative: Patient is a 75-year-old female who presented to the emergency department with a chief complaint of right hand redness and swelling after being scratched by her cat. On the differential diagnose includes but not limited to cellulitis, DVT although the swelling is to your hand and she is anticoagulated on Eliquis. Once workup is obtained and reviewed she will be reevaluated. Patient be given a gram Rocephin here in the emergency department. Once again I asked the patient multiple times and she confirmed that she was scratched and was not bitten by the cat. Patient's CBC reviewed showed no evidence leukocytosis white cell normal 10.6, he was 13.2, plate count was 247. Patient 136, potassium normal 4.3, creatinine normal 1. Discussed results with the patient and she was vies to keep her arm elevated to help reduce the swelling out of her right hand. She will be placed on doxycycline and was advised to keep a andrea (more content not included)... [facility] Office Visit (INTMWS ) VALERIAILENE Rutherford ([id number]) 1950 F Date Time Provider Department 04/13/25 10:40 AM KELLE PETER INTMWS During your visit today, we recorded the following information about you: Pulse Respiration Blood pressure Weight 77/minute 16/minute 130/80 88.9 kg Kelle Peter APRN.POLICE MAGISTRATE 04/17/2025 8:20 AM Signed CC: Patient presents with: Recheck: [facility] ER follow up, DVT in leg HPI Ileneprema Shaw is a 75 year old female who presents today for follow up. Recording using [employer] software for draft documentation of the visit was discussed with the patient/authorized representative government relations; all questions welcomed and answered. Patient/authorized representative government relations agreed to proceed Ilene is a 75-year-old female with a history of blood clots, presenting for evaluation of dizziness and recent ER visits. Blood Clots: - Recent blood clot in left inner thigh, noted for warmth and swelling. - First ER visit on 03/05 for blood clot; started on Eliquis. - Second ER visit the next day due to dizziness; admitted for two nights. - CT head and neck, MRI brain negative; neurology consult via telemedicine. - Discharged on 03/08 with new cholesterol medication and baby aspirin. - Currently on reduced dose of Eliquis - Previous blood clot years ago; not on daily preventative medication at that time. Dizziness: - Onset immediately after starting Eliquis on 03/05. - Describes sensation as "the world was spinning around." - Dizziness persists, described as feeling off. - No associated headaches, confusion, vision changes, or ear pain. - No dizziness while hospitalized and not taking Eliquis. - Recent mechanical fall out of bed while reaching for phone; denies head injury. Diarrhea: - Onset after starting Eliquis; described as loose stools. - Frequency of 2-3 times per day; improving with more solid stools recently. - Denies hematochezia, melena, nausea, or emesis. REVIEW OF SYSTEMS See HPI PAST MEDICAL HISTORY Diagnosis Date Adjustment disorder [...] Eliquis [Apixaban], Ampicillin, and Xarelto [Rivaroxaban] MEDICATIONS atorvastatin (LIPITOR) 40 mg tablet Take 40 mg by mouth daily at bedtime. ELIQUIS DVT-PE TREAT 30D START 5 mg (74 tabs) Take 5 mg by mouth once daily. aspirin (ASPIR-81 ORAL) Take 81 mg by mouth once daily. escitalopram oxalate (LEXAPRO) 10 mg tablet Take 10 mg by mouth once daily. ALPRAZolam (XANAX) 0.25 mg tablet Take 1 tablet by mouth once daily. FAMILY HISTORY Problem Relation Age of Onset Heart Mother Cancer Father LEUKEMIA Diabetes Father other (dementia) Sister Diabetes Daughter other (neuropathy) Daughter SOCIAL HISTORY[1] PHYSICAL EXAM BP 130/80 Pulse 77 Resp 16 Wt 88.9 kg (196 lb) SpO2 99% BMI 35.85 kg/m? General Appearance: well appearing, in no acute distress, alert Eyes: PERRLA, EOM's intact, conjunctiva pink and moist, no icterus, sclera white, non-injected Lungs: Lungs clear to auscultation. No wheezing, rhonchi, rales. Heart: RRR without murmur, gallop, or rubs. No ectopy Health maintenance reviewed with patient: Depression Screening Never done Hepatitis C Screening Never done Shingrix Vaccine(1 of 2) Never done DTaP,Tdap,Td Vaccine(1 - Tdap) due on 05/04/2023 Lipid Screening due on 08/24/2023 Advance Directive Discussion Never done Medicare Advantage Annual Wellness Visit Never done Colorectal Cancer Screening due on 08/08/2024 Influenza Vaccine(1) due on 02/13/2025 Covid-19 Vaccine(2024- season) due on 02/13/2025 RSV Vaccine(1 - 1-dose 75+ series) Never done Diabetes Screening due on 05/22/2026 Bone Density Screening Completed Pneumococcal Vaccine: 50+ Completed Mammogram Screening Discontinued DATA REVIEWED: Outside chart from [facility] reviewed. Assessment/Plan 1. Acute embolism and thrombosis of deep vein of left lower extremity (HCC) (I82.402) 2. Dizziness and giddiness (R42) - Recent DVT of left inner thigh diagnosed on ; started on Eliquis with sub (more content not included)... Normal [facility] 12 Lead EKGon 04-07-2025 12 Lead EKG [facility] Cardiovascular Services [address] [place] [address] 12 Lead EKG 04/07/25 0046 MR#: [id number] Acct: [id number] Name: ILENE SHAW Rep #: [id number] : 1950 75 From: Roselia Toney MD Attending Dr: Dr. Bran Courtney DO Status: DIS IN Ordering Dr: Venkat Mustafa MD Date: 04/07/25 Location: [facility] Sex: F C Admitted: 04/07/25 Test Reason : DYSRHYTHMIA Blood Pressure : */* mmHG Vent. Rate : 62 BPM Atrial Rate : 62 BPM P-R Int : 196 ms QRS Dur : 74 ms QT Int : 450 ms P-R-T Axes : 49 5 61 degrees QTcB Int : 456 ms Normal sinus rhythm Normal ECG Confirmed by ROSELIA TONEY ([id number]), index editor ANTONIETA GONZALES ([id number]) on 04/10/2025 6:32:12 AM Referred By: Confirmed By: ROSELIA TONEY 04/10/25 0632 Date Roselia Toney MD CC: Dr. Venkat Mustafa MD; Dr. Jennifer Santos MD; Dr. Bran Courtney DO Signed Normal [facility] Absolute lymphocyte countOrd ered By: Venkat Mustafa on 04-07-2025 Lymphocytes Auto (Unsp spec) [#/Vol] 2.13 10*3/uL 0.83-4.51 [facility] Absolute neutrophil countOrd ered By: Venkat Mustafa on 04-07-2025 Neutrophils (Bld) [#/Vol] 5.1 10*3/uL 2.0-7.7 [facility] Alcohol, Blood (Medical)-Ser umon 04-07-2025 SERUM ETOH < 10.1 Normal <=10.0 [facility] Comment on above: Result Comment: This test is for medical purposes only. The legal definition of intoxication varies according to local law. Performed By: #### L 501.9985, L501.9500, L505.5000, L501.9100 ####[facility] [address] [place], [place], [id number] Amphetamine detection with 1 000 ng/mL as cutoffOrdered By: Milo Mcnally on 04-07-2025 Amphetamines Screen method >1000 ng/mL Ql (U) Negative < 200 ng/mL [facility] Anion gap in Serum or Plasma Ordered By: Venkat Mustafa on 04-07-2025 Anion gap [Moles/Vol] 10 mmol/L 5- [facility] Automated lymphocyte count a s percentage of total leukocytesOrdered By: Venkat Mustafa on 04-07-2025 Lymphocytes/100 WBC Auto (Unsp spec) 25.2 % - [facility] BUN/creatinine ratioOrdered By: Venkat Mustafa on 04-07-2025 Urea nitrogen/Creatinine [Mass ratio] 10.1 mg/mg - [facility] Basophil percentageOrdered B y: Venkat Mustafa on 04-07-2025 Basophils/100 WBC (Bld) 0.6 % 0-1 [facility] Bilirubin Test strip Ql (U)O rdered By: Venkat Mustafa on 04-07-2025 Bilirubin Ql (U) Negative Negative [facility] Bilirubin, totalOrdered By: Venkat Mustafa on 04-07-2025 Bilirubin [Mass/Vol] 0.31 mg/dL 0.00-1.30 [facility] Brain without Contraston Brain without Contrast [facility] Imaging Services [address] [place], [place] [address] Brain without Contrast MR#: [id number] Acct: [id number] Name: ILENE SHAW Rep #: [id number] : 1950 F 75 From: Kal Andrea MD PCP: Dr. Jennifer Santos MD Status: ADM IN Study: Brain without Contrast Date of Exam: 04/07/25 Exam# [id number] Ordering Dr: Milo Celaya DO PROCEDURE: BRAIN WITHOUT CONTRAST 04/07/2025 REASON FOR EXAM: SUSPECTED POSTERIOR CVA WITH VERTIGO AND CONFUSION TECHNIQUE: Procedure Code: MRIBR Modality: MR Procedure: BRAIN WITHOUT CONTRAST Multiplanar and multisequence images were obtained. COMPARISON: CT head April 07, 2025. FINDINGS: Brain: Moderate cerebral atrophy and chronic periventricular white matter disease. No restricted diffusion. No hemorrhage. No mass-effect or midline shift. The orbits are within normal limits. Ventricles: No ventriculomegaly. Major Intracranial Vessels: Patent. Sinuses: Clear. Mastoids: Clear. MRI/Brain without Contrast IMPRESSION: No acute brain abnormalities. Reading Location: [facility] CC: Dr. Jennifer Santos MD; Dr. Milo Celaya DO Wafer Machine Operator: Signed Normal [facility] Brain/Head without Contrasto n 04-07-2025 Brain/Head without Contrast [facility] Imaging Services [address] [place] [address] Brain/Head without Contrast MR#: [id number] Acct: [id number] Name: ILENE SHAW Rep #: [id number] : 1950 F 75 From: Carter gil MD PCP: Dr. Jennifer Santos MD Status: REG ER Study: Brain/Head without Contrast Date of Exam: 03/16 10/07 Exam# [id number] Ordering Dr: Venkat Mustafa MD PROCEDURE: BRAIN/HEAD WITHOUT CONTRAST 04/07/2025 REASON FOR EXAM: DISORIENTATION, DIZZINESS TECHNIQUE: Procedure Code: CTBR Modality: CT Procedure: BRAIN/HEAD WITHOUT CONTRAST Coronal and Sagittal reconstruction series were provided. One or more dose reduction techniques were used (e.g., Automated exposure control, adjustment of the mA and/or kV according to patient size, use of iterative reconstruction technique. RADIATION DOSE SUMMARY: CTDI Vol 44.99 mGy DLP :846.73 mGycm COMPARISON: none FINDINGS: Relatively accentuated bilateral cerebral periventricular deep white matter hypodensities suggesting hypoperfusion. Davies-white matter differentiation is maintained. Normal CT appearance of the posterior fossa structures. No intracerebral or extra axial hemorrhage. No definite calvarial fractures. Unremarkable ventricular system. Prominent cortical sulci and extra-axial CSF spaces No midline shifts or deformity. The osseous structures in the skull base are unremarkable. The scanned paranasal sinuses are unremarkable. Vascular atheromatous calcifications. CT/Brain/Head without Contrast IMPRESSION: No intracerebral or extra axial hemorrhage. No acute cerebrovascular insult. If clinical symptoms persist, further evaluation with MRI may be considered as clinically warranted. Bilateral cerebral mild microvascular ischemic changes. Reading Location: [place] [address] CC: Dr. Venkat Mustafa MD; Dr. Jennifer Santos MD Wafer Machine Operator: Signed Normal [facility] CBC W/Diff, Automatedon 10-2 Absolute Lymph 2.13 X10 3/uL Normal 0.83-4.51 [facility] Comment on above: Performed By: #### L 500.4050, L100.0100 ####[facility] [address] [place], [address] Absolute Neut 5.1 X10 3/uL Normal 2.0-7.7 [facility] Comment on above: Performed By: #### L 500.4050, L100.0100 ####[facility] [address] [place], [address] Basophils/100 WBC (Bld) 0.6 % Normal 0-1 [facility] Comment on above: Performed By: #### L 500.4050, L100.0100 ####[facility] [address] [place], [address] Eosinophils/100 WBC (Bld) 7.8 % High 0-5 [facility] Comment on above: Performed By: #### L 500.4050, L100.0100 ####[facility] [address] [place], [address] Erythrocyte distribution width (RBC) [Ratio] 13.1 % Normal 11.6-14.6 [facility] Comment on above: Performed By: #### L 500.4050, L100.0100 ####[facility] [address] [place], [address] Hematocrit (Bld) [Volume fraction] 40.6 % Normal 37-47 [facility] Comment on above: Performed By: #### L 500.4050, L100.0100 ####[facility] [address] [place], [address] Hemoglobin (Bld) [Mass/Vol] 13.8 g/dL Normal 12.0-15.0 [facility] Comment on above: Performed By: #### L 500.4050, L100.0100 ####[facility] [address] [place], [address] IG% 0.200 Normal 0.0-0.9 [facility] Comment on above: Result Comment: IG% - Immature Granulocytes (promyelocytes, myelocytes and metamyelocytes) > 1% indicates that a LEFT SHIFT is Present. Performed By: #### L 500.4050, L100.0100 ####[facility] [address] [place], [address] Lymphocytes/100 WBC (Bld) 25.2 % Normal 19-41 [facility] Comment on above: Performed By: #### L 500.4050, L100.0100 ####[facility] [address] [place], [address] MCH (RBC) [Entitic mass] 31.1 pg Normal 27.0-32.0 [facility] Comment on above: Performed By: #### L 500.4050, L100.0100 ####[facility] [address] [place], [address] MCHC (RBC) [Mass/Vol] 34.0 g/dL Normal 32-36 [facility] Comment on above: Performed By: #### L 500.4050, L100.0100 ####[facility] [address] [place], [address] MCV (RBC) [Entitic vol] 91.4 fL Normal 81-99 [facility] Comment on above: Performed By: #### L 500.4050, L100.0100 ####[facility] [address] [place], [address] Monocytes/100 WBC (Bld) 6.5 % Normal 0-10 [facility] Comment on above: Performed By: #### L 500.4050, L100.0100 ####[facility] [address] [place], [address] Neutrophils/100 WBC (Bld) 59.7 % Normal 47-70 [facility] Comment on above: Performed By: #### L 500.4050, L100.0100 ####[facility] [address] [place], [address] Nucleated RBC (Bld) [#/Vol] 0 10*3/uL Normal 0-5 [facility] Comment on above: Performed By: #### L 500.4050, L100.0100 ####[facility] [address] [place], [address] Platelet mean volume (Bld) [Entitic vol] 11.9 fL Normal 6.2-12.0 [facility] Comment on above: Performed By: #### L 500.4050, L100.0100 ####[facility] [address] [place], [address] Platelets (Bld) [#/Vol] 273 10*3/uL Normal 150-450 [facility] Comment on above: Performed By: #### L 500.4050, L100.0100 ####[facility] [address] [place], [address] RBC (Bld) [#/Vol] 4.44 10*6/uL Normal 4.2-5.4 [facility] Comment on above: Performed By: #### L 500.4050, L100.0100 ####[facility] [address] [place], [address] RDW SD 44.1 fl High 35.1-43.9 [facility] Comment on above: Performed By: #### L 500.4050, L100.0100 ####[facility] [address] [place], [address] WBC (Bld) [#/Vol] 8.5 10*3/uL Normal 4.4-11.0 [facility] Comment on above: Performed By: #### L 500.4050, L100.0100 ####[facility] [address] [place], [address] CTA Head AND Neck W/ Contras ton 04-07-2025 CTA Head AND Neck W/ Contrast [facility] Imaging Services [address] [place] [address] CTA Head AND Neck W/ Contrast MR#: [id number] Acct: [id number] Name: ILENE SHAW Rep #: [id number] : 1950 F 75 From: Carter gil MD PCP: Dr. Jennifer Santos MD Status: [facility] ER Study: CTA Head AND Neck W/ Contrast Date of Exam: Exam# [id number] Ordering Dr: Venkat Mustafa MD PROCEDURE: CTA HEAD AND NECK W/ CONTRAST 04/07/2025 REASON FOR EXAM: VERTIGO, APHASIA TECHNIQUE: Procedure Code: CTCTA.HDNCK Modality: CT Procedure: CTA HEAD AND NECK W/ CONTRAST Multiplanar Sagittal and Coronal images were obtained. CONTRAST: optiray VOLUME: 125 mL One or more dose reduction techniques were used (e.g., Automated exposure control, adjustment of the mA and/or kV according to patient size, use of iterative reconstruction technique). RADIATION DOSE SUMMARY: CTDI Vol 61.79 mGy DLP :1199.7 mGycm COMPARISON: none FINDINGS: Patent aortic arch showing irregular intimal thickening with calcified atheromatous plaques. It gives rise to patent major vascular trunks showing non significant atherosclerotic changes. Patent common carotid arteries mild irregular intimal thickening. No severe stenosis. Patent carotid bulbs showing fibrofatty atheromatous plaques with no severe stenosis. Patent external carotid arteries. Patent cervical, petrous, cavernous and supraclinoid segments of the internal carotid arteries showing irregular intimal thickening with non significant calcified atheromatous plaques of their cavernous segments. No severe stenotic lesions, aneurysmal dilatation or dissecting intimal flaps. Patent anterior and middle cerebral arteries. No severe stenotic lesions, aneurysmal dilatation or dissecting intimal flaps. Patent vertebral arteries. No tight stenotic lesions, aneurysmal dilatation or dissecting intimal flaps. Patent basilar artery. No tight stenotic lesions, aneurysmal dilatation or dissecting intimal flaps. Relatively attenuated right posterior cerebral artery showing multifocal mild and moderately stenotic plaques. Patent left posterior cerebral artery. Cervical spondylosis. CT/CTA Head AND Neck W/ Contrast IMPRESSION: Relatively attenuated right posterior cerebral artery showing multifocal mild and moderately stenotic plaques. Patent rest of the intra and extra-cranial carotid and vertebral arteries as detailed. No occlusion, aneurysmal dilatation or dissecting intimal flaps. Reading Location: [place] [address] CC: Dr. Venkat Mustafa MD; Dr. Jennifer Santos MD Wafer Machine Operator: Signed Normal [facility] Calculated very low density lipoprotein (VLDL) cholesterol measurementOrdered By: Milo Mcnally on 04-07-2025 Calculated very low density lipoprotein (VLDL) cholesterol measurement 25 mg/dL 5-40 [facility] Carbon dioxide, total [Moles /volume] in Central venous bloodOrdered By: Venkat Mustafa on 04-07-2025 CO2 [Moles/Vol] 26.3 mmol/L 21.0-32.0 [facility] Carotid Duplex Ultrasoundon 04-07-2025 Carotid Duplex Ultrasound [facility] Cardiovascular Services [address] [place] [address] Carotid Duplex Ultrasound 04/07/25 1032 MR#: [id number] Acct: [id number] Name: ILENE SHAW Rep #: [id number] : 1950 75 From: Marlo Storm MD Attending Dr: Dr. Bran Courtney DO Status: DIS IN Ordering Dr: Milo Celaya DO Date: 04/07/25 Location: U Sex: F C Admitted: 04/07/25 Reason For Study Reason For Study: Evaluate for Stenosis Rt. Velocities/BP Lt. Velocities/BP Prox CCA 83/14 cm/sec. Prox CCA 90/10 cm/sec. Mid CCA 71/14 cm/sec. Mid CCA 92/16 cm/sec. Dist CCA 67/16 cm/sec. Dist CCA 82/15 cm/sec. Prox ICA 55/15 cm/sec. Prox ICA 78/16 cm/sec. Mid ICA 71/25 cm/sec. Mid ICA 64/17 cm/sec. Dist ICA 70/24 cm/sec. Dist ICA 65/20 cm/sec. Rt. ICA/CCA = 1.0. Lt. ICA/CCA = 0.8. Prox ECA 138/12 cm/sec. Prox ECA 108/8 cm/sec. Rt. Vert. 40/10 cm/sec. Lt. Vert. 56/12 cm/sec. Right Extracranial There is intimal thickening but no significant atherosclerotic plaque noted in the right common carotid artery. There is intimal thickening but no significant atherosclerotic plaque noted in the right internal carotid artery. There is intimal thickening but no significant atherosclerotic plaque noted in the right external carotid artery. Antegrade flow is noted in the right vertebral artery. Left Extracranial There is intimal thickening but no significant atherosclerotic plaque noted in the left common carotid artery. There is heterogeneous, irregular atherosclerotic plaque noted in the left internal carotid artery. There is intimal thickening but no significant atherosclerotic plaque noted in the left external carotid artery. Antegrade flow is noted in the left vertebral artery. Procedure Carotid Duplex [id number]. This is a Carotid Duplex examination using B-mode, color flow and specral Doppler. Exam performed portable in patient room. VL/Carotid Duplex Ultrasound Interpretation Summary No significant atherosclerotic plaque or stenosis noted in the right internal carotid artery. Mild (<50%) stenosis left extracranial internal carotid. Flow within the vertebral arteries is antegrade bilaterally. Ordering Physician: Milo Celaya Referring Physician: Jennifer Santos Performed By: Naheed Gomes, RDCS, RVT 04/08/25 1611 Date [address] Storm MD CC: Dr. Jennifer Santos MD; Dr. Milo Celaya DO; Dr. Bran Courtney DO Date Dictated: 04/07/25 1032 Date Transcribed: 04/08/251610 Wafer Machine Operator: Signed Normal [facility] Chloride assayOrdered By: Kenan Mustafa on 04-07-2025 Chloride [Moles/Vol] 105 mmol/L 98-108 [facility] Comprehensive Metabolic Prof ilon 04-07-2025 Albumin [Mass/Vol] 3.9 g/dL Normal 3.4-4.8 [facility] Comment on above: Performed By: #### L 500.4050, L100.0100 ####[facility] [address] [place], [address] Albumin/Globulin [Mass ratio] 1.3 {ratio} Normal 0.9-2.4 [facility] Comment on above: Performed By: #### L 500.4050, L100.0100 ####[facility] [address] [place], [address] ALK PHOS 88 U/L Normal 35-104 [facility] Comment on above: Performed By: #### L 500.4050, L100.0100 ####[facility] [address] [place], [address] ALT [Catalytic activity/Vol] 9 U/L Normal <=34 [facility] Comment on above: Performed By: #### L 500.4050, L100.0100 ####[facility] [address] [place], [address] AST [Catalytic activity/Vol] 26 U/L Normal <=31 [facility] Comment on above: Performed By: #### L 500.4050, L100.0100 ####[facility] [address] [place], [address] Bilirubin [Mass/Vol] 0.31 mg/dL Normal 0.00-1.30 [facility] Comment on above: Performed By: #### L 500.4050, L100.0100 ####[facility] [address] [place], [address] BUN/CRE 10.1 RATIO Normal 10-20 [facility] Comment on above: Performed By: #### L 500.4050, L100.0100 ####[facility] [address] [place], [address] Calcium [Mass/Vol] 8.8 mg/dL Normal 7.6-11.0 [facility] Comment on above: Performed By: #### L 500.4050, L100.0100 ####[facility] [address] [place], [address] Chloride [Moles/Vol] 105 mmol/L Normal 98-108 [facility] Comment on above: Performed By: #### L 500.4050, L100.0100 ####[facility] [address] [place], [address] CO2 [Moles/Vol] 26.3 mmol/L Normal 21.0-32.0 [facility] Comment on above: Performed By: #### L 500.4050, L100.0100 ####[facility] [address] [place], [address] Creatinine [Mass/Vol] 0.86 mg/dL Normal 0.70-1.20 [facility] Comment on above: Performed By: #### L 500.4050, L100.0100 ####[facility] [address] [place], [address] ECRCL 57.91 ml/min Normal 50-250 [facility] Comment on above: Performed By: #### L 500.4050, L100.0100 ####[facility] [address] [place], [address] GAP 10 Normal 5-15 [facility] Comment on above: Performed By: #### L 500.4050, L100.0100 ####[facility] [address] [place], [address] GFR/1.73 sq M.predicted among non-blacks MDRD (S/P/Bld) [Vol rate/Area] 70 mL/min/{1.73_m2} Normal >60 [facility] Comment on above: Result Comment: mL/m in/1.73m2 CKD-EPI Creatinine Equation (2020) Performed By: #### L 500.4050, L100.0100 ####[facility] [address] [place], [address] Globulin (S) [Mass/Vol] 3.1 g/dL Normal 2.2-4.2 [facility] Comment on above: Performed By: #### L 500.4050, L100.0100 ####[facility] [address] [place], [address] Glucose [Mass/Vol] 124 mg/dL High 70-99 [facility] Comment on above: Performed By: #### L 500.4050, L100.0100 ####[facility] [address] [place], [address] Potassium [Moles/Vol] 3.8 mmol/L Normal 3.3-5.1 [facility] Comment on above: Performed By: #### L 500.4050, L100.0100 ####[facility] [address] [place], [address] Sodium [Moles/Vol] 142 mmol/L Normal 133-145 [facility] Comment on above: Performed By: #### L 500.4050, L100.0100 ####[facility] [address] [place], [address] T PROT 6.9 g/dL Normal 5.9-8.4 [facility] Comment on above: Performed By: #### L 500.4050, L100.0100 ####[facility] [address] [place], [address] Urea nitrogen [Mass/Vol] 9 mg/dL Normal 4-19 [facility] Comment on above: Performed By: #### L 500.4050, L100.0100 ####[facility] [address] [place], [address] Echo Complete W/ Contraston 04-07-2025 Echo Complete W/ Contrast [facility] [address] [place] [address] Echo Complete W/ Contrast 04/07/25 0950 MR#: [id number] Acct: [id number] Name: ILENE SHAW Rep #: [id number] : 1950 75 From: Roselia Toney MD Attending Dr: Dr. Bran Courtney DO Status: ADM IN Ordering Dr: Milo Celaya DO Date: 04/07/25 Location: U Sex: F C Admitted: 04/07/25 Reason For Study Reason For Study: TIA/CVA Procedure This was a 2D Doppler, Color Flow transthoracic echocardiogram. Contrast injection was performed. Exam performed portable in patient room. Left Ventricle Normal LV size. Mild assymetric septal hypertrophy. The left ventricular ejection fraction is 65 %. Valsalva LV gradient 33 mmHg. Stage 1 diastolic dysfunction. Right Ventricle Normal RV size. Normal systolic function. Atria Normal left atrium. Normal right atrium. No doppler evidence for ASD. Mitral Valve The mitral valve is structurally normal. No prolapse or stenosis seen. Trivial mitral valve insufficiency. Tricuspid Valve Normal tricuspid valve. Unable to estimate RV systolic pressure due to insufficient tricuspid regurgitant envelope. Aortic Valve Trisinus/trileaflet aortic valve. Mild focal aortic valve calcification. There is no aortic stenosis. Pulmonic Valve The pulmonic valve is not well visualized. Great Vessels Normal sized aortic root. Pericardium/Pleural No pericardial effusion. Medication Diluted definity 1ml given slow IV push to enhance endocardial definition. MMode/2D Measurements Calculations LVIDd: 3.7 cm IVSd: 1.1 cm Ao root diam: 3.1 cm LVIDs: 2.3 cm LVPWd: 0.96 cm RVDd: 2.9 cm FS: 37.7 % LAV(MOD-bp): 46.7 ml LVAd ap4: 29.4 cm2 SV(MOD-sp4): 59.1 ml LAV(MOD-bp) Indexed: 24.9 ml/m2 LVLd ap4: 7.9 cm SI(MOD-sp4): 31.5 ml/m2 LAV(MOD-sp2): 45.8 ml EDV(MOD-sp4): 89.7 ml LAV(MOD-sp4): 44.9 ml EDV(sp4-el): 93.4 ml LVAs ap4: 15.0 cm2 LVLs ap4: 6.1 cm ESV(MOD-sp4): 30.6 ml ESV(sp4-el): 31.6 ml EF(MOD-sp4): 65.9 % EF(sp4-el): 66.2 % SV(sp4-el): 61.8 ml LA A4 area: 17.2 cm2 LA dimension(2D): 3.4 cm RA A4 area: 11.3 cm2 TAPSE: 2.1 cm Time Measurements MV dec time: 0.26 sec Doppler Measurements Calculations MV E max summer: 71.8 cm/sec Lat Peak E' Summer: 7.0 cm/sec Med Peak E' Summer: 7.0 cm/sec MV A max summer: 108.7 cm/sec E/E' lat: 10.3 E/E' med: 10.3 MV E/A: 0.66 MV V2 max: 128.6 cm/sec MV P1/2t max summer: 88.9 cm/sec Ao V2 max: 118.0 cm/sec MV max P.6 mmHg MV P1/2t: 88.7 msec Ao max P.6 mmHg MV V2 mean: 67.6 cm/sec MV dec slope: 293.6 cm/sec2 MV mean P.2 mmHg MVA(P1/2t): 2.5 cm2 MV V2 VTI: 33.5 cm LV V1 max: 103.3 cm/sec PA V2 max: 87.3 cm/sec LV V1 max P.3 mmHg PA V2 mean: 61.9 cm/sec LV V1 mean P.2 mmHg LV V1 mean: 69.2 cm/sec LV V1 VTI: 22.5 cm ECHO/Echo Complete W/ Contrast Interpretation Summary The left ventricular ejection fraction is 65 %. Mild assymetric septal hypertrophy. Stage 1 diastolic dysfunction. Mild focal aortic valve calcification. Contrast injection was performed. Ordering Physician: Milo Celaya Performed By: Vasiliy Boudreaux RCS 04/07/251616 Date Roselia Toney MD CC: Dr. Jennifer Santos MD; Dr. Milo Celaya DO; Dr. Bran Courtney DO Date Dictated: 04/07/2550 Date Transcribed: 04/07/251616 Wafer Machine Operator: Signed Normal [facility] Emergency Department Summary on 04-07-2025 Emergency Department Summary [facility] Medical Records Department [address] [place] [address] Emergency Department Summary 04/07/25 MR#: [id number] Acct: [id number] Name: ILENE SHAW Sangeeta Rep #: [id number] : 1950 75 From: Venkat Mustafa MD PCP: Dr. Jennifer Santos MD Status:REG ER Location: ED HPI History of Present Illness Chief Complaint: Dizziness Informant: patient and family Narrative Narrative: Patient is a 75-year-old female with a history of DVT, anxiety, and cataract surgery, presenting with dizziness and confusion. Patient is accompanied by her grandson, who is supplementing history. - Started Eliquis yesterday for a blood clot in her leg. - Reports onset of dizziness and confusion today around [id number] after taking Eliquis. However, patient keeps saying that she first had the symptoms yesterday after starting the Eliquis; was seen in ER around noon yesterday and presents just after midnight the next day/night. - Describes dizziness as a spinning sensation, particularly noticeable after taking the medication; fell to her knees due to dizziness when getting up from the restroom. - Dizziness is continuous, worsens with head movement, and persists even when lying down. - Denies diplopia, blurry vision, unilateral numbness or weakness, earache, tinnitus, changes in hearing, headaches, emesis, chest pain, dyspnea, or syncope. - No recent URI symptoms. - Grandson reports confusion today, noting she repeatedly asked questions and seemed disoriented; denies prior confusion. - Takes Xanax and Lexapro for anxiety, as well as 81 mg aspirin at night. [facility] Medical History Vaginal candidiasis Acute bronchitis, unspecified Kidney stones Pulmonary embolism Adult-onset Still's disease Depression Anxiety Breast cancer Endometriosis Bowel obstruction Home Medications ???Medication ???Instructions ???Recorded ???Last Taken ???Type alprazolam 0.25 mg tablet 0.25 mg PO TID PRN PRN Insomnia Unknown History escitalopram oxalate 10 mg tablet 10 mg PO DAILY 08/16/14 Unknown H istory apixaban 5 mg (74 tabs) tablets in See Rx Instructions .Route 04/04 Unknown Rx a dose pack (Eliquis DVT-PE Treat .COMPLEX #74 tabs 30D Start) Allergy/AdvReac Type Severity Reaction Status Date / Time ampicillin Allergy Rash Verified 04/07/25 00:01 prednisone AdvReac SHAKINESS Verified 04/07/25 00:01 Surgical History H/O lumpectomy History of bowel resection History of colostomy reversal H/O: hysterectomy Social History household members: family housing: house Smoking Status: Never smoker ROS ROS ED Constitutional Constitutional ED: Denies chills or fever(s) Eyes Eyes: Denies change in vision or diplopia ENT ENT ED: Reports vertigo; Denies ear pain, rhinorrhea or sore throat Cardiovascular Cardiovascular: Denies chest pain or palpitations Respiratory/Chest Respiratory/Chest: Denies cough or dyspnea Gastrointestinal Gastrointestinal: Denies abdominal pain, diarrhea, nausea or vomiting Genitourinary Genitourinary ED: Denies dysuria or hematuria Musculoskeletal Musculoskeletal: Denies back pain or neck pain Integumentary Denies abscess or rash Neurologic Neurologic: Reports as per HPI, abnormal gait and confusion; Denies headache(s), paresthesias or weakness Psychiatric Psychiatric: Denies suicidal thoughts EXAM Physical Exam Const Vital Signs: 04/07/25 00:00 04/07/25 00:18 04/07/25 00:30 Temperature 98.3 F Temperature Source Oral Pulse Rate 68 62 61 Respiratory Rate 18 13 16 Blood Pressure 183/84 H Blood Pressure Mean 117 Pulse Ox 100 100 99 Oxygen Delivery Method Room Air 04/07/25 00:45 04/07/25 01:00 04/07/25 01:19 Temperature Temperature Source Pulse Rate 65 66 94 Respiratory Rate 15 13 21 H Blood Pressure Blood Pressure Mean Pulse Ox 100 99 Oxygen Delivery Method 04/07/25 02:00 04/07/25 02:28 04/07/25 02:29 Temperature Temperature Source Pulse Rate 69 66 Respiratory Rate 16 14 Blood Pressure 211/99 H 215/103 H Blood Pressure Mean 136 140 Pulse Ox 100 100 Oxygen Delivery Method Room Air Room Air Room Air 04/07/25 02:42 Temperature Temperature Source Pulse Rate 65 Respiratory Rate 15 Blood Pressure 214/97 H Blood Pressure Mean 136 Pulse Ox 100 Oxygen Delivery Method Positive well nourished and well developed General Appearance ED: well developed and NAD HEENT Reports TM's clear and moist mucous membranes normocephalic and atraumatic Tympanic Membrane ED: Yes TM's clear Eyes PERRL a (more content not included)... Normal [place] [facility] Eosinophil percentageOrdered By: Venkat Mustafa on 04-07-2025 Eosinophils/100 WBC (Bld) 7.8 % High 0-5 [facility] Erythrocyte distribution wid th ratioOrdered By: Venkat Mustafa on 04-07-2025 Erythrocyte distribution width (RBC) [Ratio] 13.1 % 11.6-14.6 [facility] Erythrocyte distribution wid th standard deviationOrdered By: Venkat Mustafa on 04-07-2025 Erythrocyte distribution width (RBC) [Ratio] 44.1 fl High 35.1-43.9 [facility] Free T3on 04-07-2025 Free T3 [Mass/Vol] 3.1 pg/mL Normal 2.18-3.98 [facility] Comment on above: Performed By: #### L 501.07295, L506.0400 ####[facility] [address] [facility] [place], [address] Free A8Rxwyofh By: Milo lopes on 04-07-2025 Free T3 [Mass/Vol] 3.1 pg/mL 2.18-3.98 [facility] Glomerular filtration rate ( GFR) estimation/1.73 sq m using serum, plasma, or whole bOrdered By: Venkat Mustafa on 04-07-2025 GFR/1.73 sq M.predicted among non-blacks MDRD (S/P/Bld) [Vol rate/Area] 70 mL/min/{1.73_m2} >60 [facility] Comment on above: mL/min/1.73m2 CKD-EP I Creatinine Equation (2020) H AND P Exam - Hospitaliston 04-07-2025 H&P Exam - Hospitalist [facility] Medical Records Department [address] [place] [address] H P Exam - Hospitalist 04/07/25 0249 MR#: [id number] Acct: [id number] Name: ILENE SHAW Rep #: [id number] : 1950 75 From: Milo Celaya DO PCP: Dr. Jennifer Santos MD Status:ADM IN [facility] HPI - General General Date of Admission: 04/07/25 Date of Service: 04/07/25 Chief Complaint: Dizziness and Confusion. HPI Narrative ILENE SHAW, is a 75 F with a past medical history of accelerated hypertension; currently not on treatment, obesity (class II); with BMI of 35.1 this admission, history of recently diagnosed unprovoked recurrent LLE DVT; on apixaban, history of Right breast cancer; s/p lumpectomy and currently in remission, history of endometriosis; s/p hysterectomy, history of adult-onset Still's disease, history of recurrent angioedema of the tongue; treated conservatively with methylprednisolone, history of bowel obstruction; s/p bowel resection with colostomy reversal, depression with anxiety; on escitalopram and alprazolam TID prn, history of bilateral renal calculi and OA who presents to [facility] ER complaining of dizziness and confusion. Ms. Shaw is a relatively poor historian at this time so information was gathered from chart, medical staff and computer. According to the records she noted the sudden-onset of dizziness and confusion yesterday morning at 9:30 AM just after taking apixaban. She describes the dizziness as a spinning sensation which is continuous in addition to persisting even when she is lying down and is made worse with head movement. She states it caused her to fall to her knees when she attempted to get up from the toilet. She denies associated visual disturbance, numbness, weakness, tinnitus, otalgia, auditory disturbance, headache, chest pain, palpitations, heart racing, abdominal pain, nausea, vomiting, diarrhea, constipation, abdominal pain, dysuria, hematuria, rash or similar previous episodes. Her grandson informed the ER physician she took BASA, escitalopram and alprazolam in the evening just prior to coming in. In the ER she was suspected to have a CVA; with mild Expressive Aphasia and Vertigo with Uncontrolled Hypertension of 215/103 mmHg noted shortly after admission with a corresponding CT scan of the brain without contrast that revealed no acute cerebrovascular insult or bleeding with mild bilateral cerebral microvascular ischemic changes - with MRI recommended followed by CT scan of the head and neck with IV contrast that showed relatively attenuated Right posterior cerebral artery showing multifocal mild moderately stenotic plaques with no occlusion, aneurysmal dilatation or dissecting intimal flaps. The ER physician then spoke with the [facility] teleneurologist who recommended holding her apixaban in addition to her being admitted here for further CVA workup which was done. She was then admitted to the PCU for ongoing care for a stay that is expected to extend beyond 2 midnights. [facility] Medical History Vaginal candidiasis Acute bronchitis, unspecified Kidney stones Pulmonary embolism Adult-onset Still's disease Depression Anxiety Breast cancer Endometriosis Bowel obstruction Home Medications ???Medication ???Instructions ???Recorded ???Last Taken ???Type alprazolam 0.25 mg tablet 0.25 mg PO TID PRN PRN Insomnia Unknown History escitalopram oxalate 10 mg tablet 10 mg PO DAILY 08/16/14 Unknown H istory apixaban 5 mg (74 tabs) tablets in See Rx Instructions .Route 04/04 Unknown Rx a dose pack (EliquM2M Solution DVT-PE Treat .COMPLEX #74 tabs 30D Start) Allergy/AdvReac Type Severity Reaction Status Date / Time ampicillin Allergy Rash Verified 04/07/25 00:01 prednisone AdvReac SHAKINESS Verified 04/07/25 00:01 Surgical History H/O lumpectomy History of bowel resection History of colostomy reversal H/O: hysterectomy Social History household members: family housing: house Smoking Status: Never smoker ROS ROS Narrative Review of Systems was limited due to patient's confusion so caveat applies: Constitutional: Patient denies fever or chills. Eyes: Patient denies visual disturbance or discharge from eyes. ENT: Patient admits to vertigo as per HPI but she denies runny nose, sore throat or ear pain. Resp: Patient denies SOB or cough. CV: Patient denies chest pain, palpitations or heart racing. GI: Patient denies abdominal pain, nausea, vomiting, diarrhea or constipation. : Patient denies dysuria or hematuria. MSK: Patient denies arthralgias or myalgias. Skin: Patient denies rash, abscess, wounds or jaundice. (more content not included)... Normal [facility] Hematocrit Auto (Bld) [Volum e fraction]Ordered By: Venkat Mustafa on 04-07-2025 Hematocrit (Bld) [Volume fraction] 40.6 % 37-47 [facility] Hemoglobin A1con 04-07-2025 HbA1c (Bld) [Mass fraction] 5.3 % Normal <=5.6 [facility] Comment on above: Result Comment: Norm al < 5.7 % Prediabetic 5.7 - 6.4 % Diabetic >or= 6.5 % Please note range changes. Performed By: #### L 501.9985, L501.9520, L505.5000, L501.9100 ####[facility] [address] [place], [place], [id number] Hemoglobin A1c percentageOrd ered By: Milo Mcnally on 04-07-2025 HbA1c (Bld) [Mass fraction] 5.3 % <5.7 [facility] Comment on above: Normal < 5.7 % Predi abetic 5.7 - 6.4 % Diabetic >or= 6.5 % Please note range changes. Hemoglobin measurementOrdere d By: Venkat Mustafa on 04-07-2025 Hemoglobin (Bld) [Mass/Vol] 13.8 g/dL 12.0-15.0 [facility] Immature granulocytes/100 WB C Auto (Bld)Ordered By: Venkat Mustafa on 04-07-2025 Immature granulocytes/100 WBC (Bld) 0.200 % 0.0-0.9 [facility] Comment on above: IG% - Immature Granu locytes (promyelocytes, myelocytes and metamyelocytes) > 1% indicates that a LEFT SHIFT is Present. Ketones Test strip Ql (U)Ord ered By: Venkat Mustafa on 04-07-2025 Ketones Ql (U) Negative Negative [facility] LDL calc ser/plasOrdered By: Milo Mcnally on 04-07-2025 Cholesterol in LDL [Mass/Vol] 134 mg/dL [facility] Comment on above: Kgrmmghpcy=432-211 m g/dL & Higher Kupl=722 mg/dL or greaterSampson Equation 2020 for LDL-C Laboratory - Chemistry and C hemistry - challengeOrdered By: Venkat Mustafa on 04-07-2025 AST [Catalytic activity/Vol] 26 U/L <32 [facility] Lipid Profileon 04-07-2025 CHOL:HDL 4.88 Normal [facility] Comment on above: Order Comment: Comme nts: NPO at [place] prior to lipid panel Performed By: #### L 500.4100 #### [facility] [address] [place], [address] Cholesterol [Mass/Vol] 197 mg/dL Normal <=200 [facility] Comment on above: Order Comment: Comme nts: NPO at [place] prior to lipid panel Result Comment: Chol esterol level, Desirable <200 mg/dL Borderline high cholesterol 200-239 mg/dL High cholesterol >=240 mg/dL Recommendations of the NCEP Adult Treatment Panel for the following risk-cutoff thresholds for the [place] population. Performed By: #### L 500.4100 #### [facility] [address] [place], [address] Cholesterol in HDL [Mass/Vol] 40 mg/dL Normal [facility] Comment on above: Order Comment: Comme nts: NPO at [place] prior to lipid panel Result Comment: Maryuri onal Cholesterol Education Program (NCEP) guidelines: <40 mg/dL: Low HDL-cholesterol (major risk factor for CHD) >= 60 mg/dL: High HDL-cholesterol (negative risk factor for CHD) HDL-cholesterol is affected by a number of factors, e.g. smoking, exercise, hormones, sex and age. Performed By: #### L 500.4100 #### [facility] [address] [place], [address] Cholesterol in LDL [Mass/Vol] 134 mg/dL Normal [facility] Comment on above: Order Comment: Comme nts: NPO at [place] prior to lipid panel Result Comment: Bord aqdbxy=659-796 mg/dL Higher Anlg=493 mg/dL or greater Rivas Equation 2020 for LDL-C Performed By: #### L 500.4100 #### [facility] [address] [place], [address] Cholesterol in VLDL [Mass/Vol] 25 mg/dL Normal 5-40 [facility] Comment on above: Order Comment: Comme nts: NPO at [place] prior to lipid panel Performed By: #### L 500.4100 #### [facility] [address] [facility] [place], [address] Triglyceride [Mass/Vol] 124 mg/dL Normal [facility] Comment on above: Order Comment: Comme nts: NPO at [place] prior to lipid panel Result Comment: The drugs N-Acetylcysteine and Metamizole may falsely depress this assay. Normal range: <150 mg/dL Borderline High: 150-199 mg/dL High: 200-499 mg/dL Very High: >500 mg/dL Performed By: #### L 500.4100 #### [facility] [address] [place], [place], [id number] ([phone]) MCV (mean corpuscular volume ) determinationOrdered By: Venkat Mustafa on 04-07-2025 MCV (RBC) [Entitic vol] 91.4 fL 81-99 [facility] MR/CON.PCM.NEon 04-07-2025 MR/CON.PCM.NE [facility] Medical Records Department [address] [place] [address] Consultation - Neurology 04/07/25 1629 MR#: [id number] Acct: [id number] Name: ILENE SHAW Rep #: [id number] : 1950 75 From: Alen Gray MD PCP: Dr. Jennifer Santos MD Status:ADM IN Location: [place] [id number] Assessment and Plan: Neuro Assessment/Plan ILENE SHAW is a 75 F with a past medical history of DVT on eliquis, being evaluated by Teleneurology for dizziness. Dizziness remitted and she connects it strongly to eliquis. I do believe her DVT needs some form of A/C. Dizziness would be less common SE of eliquis but given the strong correlation reasonable to switch her to coumadin for DVT. Diagnosis: Dizziness, On anticoagulation for DVT Plan: Switch eliquis to coumadin for DVT treatment I personally attended this patient and spent a total time of 25 minutes evaluating this patient including clinical assessment, review of chart, medical history imaging, and determining appropriate treatment and workup. Alen Gray MD Aquatic Biologist, [facility] HPI Consult Data Date of Consult: 04/07/25 HPI Narrative HPI Narrative: ILENE SHAW, is a 75 F with history of DVT, adult onset still's, who presents with dizziness and confusion. She is a limited but willing historian. SHe denies confusion and says dizziness was extremely correlated to starting eliquis for her DVT. Dizzines sis better today. She returns repeatedly to the eliquis and explains that she is not dizzy today because they are holding the eliquis. Stroke workup imaging did NOT show infarct or bleed. Here she has been walkign through the halls" without difficulty. [facility] Medical History Vaginal candidiasis Acute bronchitis, unspecified Kidney stones Pulmonary embolism Adult-onset Still's disease Depression Anxiety Breast cancer Endometriosis Bowel obstruction Home Medications ???Medication ???Instructions ???Recorded ???Last Taken ???Type alprazolam 0.25 mg tablet 0.25 mg PO TID PRN PRN Insomnia Unknown History escitalopram oxalate 10 mg tablet 10 mg PO QHS anxiety 08/16/14 Unk nown History apixaban 5 mg (74 tabs) tablets in See Rx Instructions .Route 04/04 Unknown Rx a dose pack (Eliquis DVT-PE Treat .COMPLEX #74 tabs 30D Start) atorvastatin 40 mg tablet 40 mg PO QHS #30 tabs 04/07/25 Unk nown Rx meclizine 12.5 mg tablet 12.5 mg PO TID PRN dizziness #14 1 Unknown Rx tabs Allergy/AdvReac Type Severity Reaction Status Date / Time ampicillin Allergy Rash Verified 04/07/25 00:01 prednisone AdvReac SHAKINESS Verified 04/07/25 00:01 Surgical History H/O lumpectomy History of bowel resection History of colostomy reversal H/O: hysterectomy Social History household members: family housing: house Smoking Status: Unknown if ever smoked Vital Signs Vital Signs Vital Signs: 04/07/25 00:00 04/07/25 00:18 04/07/25 00:30 Temperature 98.3 F Temperature Source Oral Pulse Rate 68 62 61 Respiratory Rate 18 13 16 Blood Pressure 183/84 H Blood Pressure Mean 117 Blood Pressure Source Blood Pressure Position Blood Pressure Location Pulse Ox 100 100 99 Oxygen Delivery Method Room Air 04/07/25 00:45 04/07/25 01:00 04/07/25 01:19 Temperature Temperature Source Pulse Rate 65 66 94 Respiratory Rate 15 13 21 H Blood Pressure Blood Pressure Mean Blood Pressure Source Blood Pressure Position Blood Pressure Location Pulse Ox 100 99 Oxygen Delivery Method 04/07/25 02:00 04/07/25 02:28 04/07/25 02:29 Temperature Temperature Source Pulse Rate 69 66 Respiratory Rate 16 14 Blood Pressure 211/99 H 215/103 H Blood Pressure Mean 136 140 Blood Pressure Source Blood Pressure Position Blood Pressure Location Pulse Ox 100 100 Oxygen Delivery Method Room Air Room Air Room Air 04/07/25 02:42 04/07/25 02:55 04/07/25 03:00 Temperature 98.0 F Temperature Source Pulse Rate 65 72 68 Respiratory Rate 15 15 14 Blood Pressure 214/97 H 188/82 H Blood Pressure Mean 136 117 Blood Pressure Source Blood Pressure Position Blood Pressure Location Pulse Ox 100 99 100 Oxygen Delivery Method Room Air 04/07/25 04:30 04/07/25 08:12 04/07/25 12:44 Temperature 97.9 F 98.0 F Temperature Source Oral Oral Pulse Rate 66 66 Respiratory Rate 16 16 Blood Pressure 152/78 H 143/69 H Blood Pressure Mean 102 93 Blood Pressure Source Monitor Monitor Blood Pressure Position Eugenio (more content not included)... Normal [facility] Mean corpuscular hemoglobin (MCH) determinationOrdered By: Venkat Mustafa on 04-07-2025 MCH (RBC) [Entitic mass] 31.1 pg 27.0-32.0 [facility] Mean corpuscular hemoglobin concentration (MCHC) determinationOrdered By: Venkat Mustafa on 04-07-2025 MCHC (RBC) [Mass/Vol] 34.0 g/dL 32-36 [facility] Mean platelet volume determi nationOrdered By: Venkat Mutsafa on 04-07-2025 Platelet mean volume (Bld) [Entitic vol] 11.9 fL 6.2-12.0 [facility] Microscopic analysis of urin e for red blood cells (RBC)Ordered By: Venkat Mustafa on 04-07-2025 Microscopic analysis of urine for red blood cells (RBC) 0 SEEN /hpf 0-5 [facility] Monocyte percentageOrdered B y: Venkat Mustafa on 04-07-2025 Monocytes/100 WBC (Bld) 6.5 % 0-10 [facility] Mucus LM Ql (Urine sed)Order ed By: Venkat Mustafa on 04-07-2025 Mucus Ql (Urine sed) 0 SEEN /hpf [facility] Neutrophil percentageOrdered By: Venkat Mustafa on 04-07-2025 Neutrophils/100 WBC (Bld) 59.7 % 47-70 [facility] Nitrite Test strip Ql (U)Ord ered By: Venkat Mustafa on 04-07-2025 Nitrite Ql (U) Negative Negative [facility] No Panel InformationOrdered By: Milo Mcnally on 04-07-2025 Urine Buprenorphine Qualitative Negative < 200 ng/mL [facility] Urine Oxycodone Screen Negative < 100 ng/mL [facility] Nucleated red blood cell per centageOrdered By: Venkat Mustafa on 04-07-2025 Nucleated RBC/100 WBC (Bld) [Ratio] 0 % 0-5 [facility] Platelet countOrdered By: Kenan Mustafa on 04-07-2025 Platelets (Bld) [#/Vol] 273 10*3/uL 150-450 [facility] Potassium measurement (mass/ volume)Ordered By: Venkat Mustafa on 04-07-2025 Potassium (Unsp spec) [Mass/Vol] 3.8 mmol/L 3.3-5.1 [facility] Protein Test strip Ql (U)Ord ered By: Venkat Mustafa on 04-07-2025 Protein Ql (U) Negative Negative [facility] Quantitative urine opiates m easurementOrdered By: Milo Mcnally on 04-07-2025 Opiates Ql (U) Negative < 300 ng/mL [facility] RBC Auto (Bld) [#/Vol]Ordere d By: Venkat Mustafa on 04-07-2025 RBC (Bld) [#/Vol] 4.44 10*6/uL 4.2-5.4 [facility] Screening total cholesterol/ high density lipoprotein (HDL) cholesterol ratioOrdered By: Milo Mcnally on 04-07-2025 Cholesterol.total/Chol esterol in HDL [Mass ratio] 4.88 {ratio} [facility] Screening urine fentanyl leonid surementOrdered By: Milo Mcnally on 04-07-2025 fentaNYL Screen Ql (U) Negative <5 ng/mL [facility] Comment on above: CONFIRMATORY TESTING FOR ALL POSITIVE URINE DRUG SCREENRESULTS WILL ONLY BE SENT OUT UPON PHYSICIAN ORDER. Shiv[employer] Pro Urine Drug Screen methods provide only preliminaryanalytical test results. A more specific alternate chemicalmethod must be used in order to obtain a confirmedanalytical result. Gas chromatography/mass spectrometery(GC/MS) is the preferred confirmatory method. Clinicalconsideration and professional judgement should be appliedto any drug of abuse test result, particularly whenpreliminary positive results are used. Urine TCA testing must be ordered separately. Use test mnemonic: [facility] Serum creatinine measurement (mass/volume)Ordered By: Venkat Mustafa on 04-07-2025 Creatinine [Mass/Vol] 0.86 mg/dL 0.70-1.20 [facility] Serum globulin measurementOr dered By: Venkat Mustafa on 04-07-2025 Globulin (S) [Mass/Vol] 3.1 g/dL 2.2-4.2 [facility] Serum glucose measurement (m ass/volume)Ordered By: Venkat Mustafa on 04-07-2025 Glucose [Mass/Vol] 124 mg/dL High 70-99 [facility] Serum or plasma alanine william otransferase (ALT) measurementOrdered By: Venkat Mustafa on 04-07-2025 ALT [Catalytic activity/Vol] 9 U/L <35 [facility] Serum or plasma albumin iwona urement (mass/volume)Ordered By: Venkat Mustafa on 04-07-2025 Albumin [Mass/Vol] 3.9 g/dL 3.4-4.8 [facility] Serum or plasma albumin/glob ulin mass ratioOrdered By: Venkat Mustafa on 04-07-2025 Albumin/Globulin [Mass ratio] 1.3 {ratio} 0.9-2.4 [facility] Serum or plasma alkaline alma sphatase measurementOrdered By: Venkat Mustafa on 04-07-2025 ALP [Catalytic activity/Vol] 88 U/L 35-104 [facility] Serum or plasma calcium iwona urement (mass/volume)Ordered By: Venkat Mustafa on 04-07-2025 Calcium [Mass/Vol] 8.8 mg/dL 7.6-11.0 [facility] Serum or plasma cholesterol in HDL measurement (mass/volume)Ordered By: Milo Mcnally on 04-07-2025 Cholesterol in HDL [Mass/Vol] 40 mg/dL >40 [facility] Comment on above: National Cholesterol Education Program (NCEP) guidelines:<40 mg/dL: Low HDL-cholesterol (major risk factor for CHD)>= 60 mg/dL: High HDL-cholesterol (negative risk factor for CHD)HDL-cholesterol is affected by a number of factors, e.g. smoking, exercise, hormones, sex and age. Serum or plasma cholesterol measurement (mass/volume)Ordered By: Milo Mcnally on 04-07-2025 Cholesterol [Mass/Vol] 197 mg/dL <201 [facility] Comment on above: Cholesterol level, D esirable <200 mg/dLBorderline high cholesterol 200-239 mg/dLHigh cholesterol >=240 mg/dLRecommendations of the NCEP Adult Treatment Panel for the following risk-cutoff thresholds for the [place] population. Serum or plasma ethanol iwona urement (mass/volume)Ordered By: Milo Mcnally on 04-07-2025 Ethanol [Mass/Vol] mg/dL <10.1 [facility] Comment on above: This test is for med ical purposes only. The legal definition of intoxication varies according to local law. Serum or plasma urea nitroge n measurement (mass/volume)Ordered By: Venkat Mustafa on 04-07-2025 Urea nitrogen [Mass/Vol] 9 mg/dL 4-19 [facility] Sodium levelOrdered By: Andrew Mustafa on 04-07-2025 Sodium [Moles/Vol] 142 mmol/L 133-145 [facility] Squamous epithelial cells de tection in urine sediment by light microscopyOrdered By: Venkat Mustafa on 04-07-2025 Epithelial cells.squamous LM Ql (Urine sed) 0-5 SEEN /hpf 5-10 [facility] T4 Free Directon 04-07-2025 T4 FREE DIRECT 0.80 ng/dL Normal 0.76-1.46 [facility] Comment on above: Performed By: #### L 501.12058, L506.0400 ####[facility] [address] [place], [place], [id number] T4 freeOrdered By: Milo lopes on 04-07-2025 Free T4 [Mass/Vol] 0.80 ng/dL 0.76-1.46 [facility] TSH DL <= 0.005 mIU/L QnOrde red By: Milo Mcnally on 04-07-2025 TSH Qn 8.080 uIU/mL High 0.300-4.200 [facility] Thyroid Stim Hormone (TSH)on 04-07-2025 TSH 8.080 uIU/mL High 0.300-4.200 [facility] Comment on above: Performed By: #### L 501.9985, L501.9520, L505.5000, L501.9100 ####[facility] [address] [place], [place], [id number] Total proteinOrdered By: Taylor Mustafa on 04-07-2025 Protein [Mass/Vol] 6.9 g/dL 5.9-8.4 [facility] Triglycerides measurementOrd ered By: Milo Mcnally on 04-07-2025 Triglyceride [Mass/Vol] 124 mg/dL <199 [facility] Comment on above: The drugs N-Acetylcy steine and Metamizole may falsely depress this assay. Normal range: <150 mg/dLBorderline High: 150-199 mg/dLHigh: 200-499 mg/dLVery High: >500 mg/dL Urinalysis, Completeon 04-07 BACTERIA RARE Normal None Seen [facility] Comment on above: Order Comment: COLLE CTOR TO SPECIFY Performed By: #### L 400.0001 ####[facility] [address] [place], [address] EPI,SQUAMOUS 0-5 SEEN Normal 5-10 [facility] Comment on above: Order Comment: BRITNI CTOR TO SPECIFY Performed By: #### L 400.0001 ####[facility] [address] [place], [address] Mucus Ql (Urine sed) 0 SEEN Normal [facility] Comment on above: Order Comment: BRITNI CTOR TO SPECIFY Performed By: #### L 400.0001 ####[facility] [address] [place], [address] RBC 0 SEEN Normal 0-5 [facility] Comment on above: Order Comment: BRITNI CTOR TO SPECIFY Performed By: #### L 400.0001 ####[facility] [address] [place], [address] WBC 0 SEEN Normal 0-5 [facility] Comment on above: Order Comment: BRITNI CTOR TO SPECIFY Performed By: #### L 400.0001 ####[facility] [address] [place], [address] Urine Drug Screen (VISTA)on 04-07-2025 AMPHETAMINES Negative Normal <1000 ng/mL [facility] Comment on above: Performed By: #### L 501.9985, L501.9520, L505.5000, L501.9100 ####[facility] [address] [place], [address] BARBITIURATES Negative Normal < 200 ng/mL [facility] Comment on above: Performed By: #### L 501.9985, L501.9520, L505.5000, L501.9100 ####[facility] [address] [place], [address] BENZODIAZIPINE Negative Normal < 200 ng/mL [facility] Comment on above: Performed By: #### L 501.9985, L501.9520, L505.5000, L501.9100 ####[facility] [address] [place], [address] BUP Ur Drug Scr Negative Normal < 200 ng/mL [facility] Comment on above: Performed By: #### L 501.9985, L501.9520, L505.5000, L501.9100 ####[facility] [address] [place], [address] COCAINE Negative Normal < 300 ng/mL [facility] Comment on above: Performed By: #### L 501.9985, L501.9520, L505.5000, L501.9100 ####[facility] [address] [place], [address] Fentanyl Negative Normal <5 ng/mL [facility] Comment on above: Result Comment: CONF IRMATORY TESTING FOR ALL POSITIVE URINE DRUG SCREEN RESULTS WILL ONLY BE SENT OUT UPON PHYSICIAN ORDER. Shivani Pro Urine Drug Screen methods provide only preliminary analytical test results. A more specific alternate chemical method must be used in order to obtain a confirmed analytical result. Gas chromatography/mass spectrometery (GC/MS) is the preferred confirmatory method. Clinical consideration and professional judgement should be applied to any drug of abuse test result, particularly when preliminary positive results are used. Urine TCA testing must be ordered separately. Use test mnemonic: [facility] Performed By: #### L 501.9985, L501.9520, L505.5000, L501.9100 ####[facility] [address] [place], [address] METHADONE Negative Normal < 300 ng/mL [facility] Comment on above: Performed By: #### L 501.9985, L501.9520, L505.5000, L501.9100 ####[facility] [address] [place], [address] OPIATES Negative Normal < 300 ng/mL [facility] Comment on above: Performed By: #### L 501.9985, L501.9520, L505.5000, L501.9100 ####[facility] [address] [place], [address] OXYCODONE Negative Normal < 100 ng/mL [facility] Comment on above: Performed By: #### L 501.9985, L501.9520, L505.5000, L501.9100 ####[facility] [address] [place], [address] PCP Negative Normal < 25 ng/mL [facility] Comment on above: Performed By: #### L 501.9985, L501.9520, L505.5000, L501.9100 ####[facility] [address] [place], [address] THC Negative Normal < 50 ng/mL [facility] Comment on above: Performed By: #### L 501.9985, L501.9520, L505.5000, L501.9100 ####[facility] [address] [place], [address] Urine benzodiazepine levelOr dered By: Milo Mcnally on 04-07-2025 Benzodiazepines Ql (U) Negative < 200 ng/mL [facility] Urine clarityOrdered By: Taylor Mustafa on 04-07-2025 Clarity (U) Clear Clear [facility] Urine cocaine levelOrdered B y: Milo Mcnally on 04-07-2025 Cocaine Ql (U) Negative < 300 ng/mL [facility] Urine color determinationOrd ered By: Venkat Mustafa on 04-07-2025 Color (U) Yellow Yellow [facility] Urine [id number] abinol (THC) measurementOrdered By: Milo Mcnally on 04-07-2025 Cannabinoids Screen Ql (U) Negative < 50 ng/mL [facility] Urine glucose detectionOrder ed By: Venkat Mustafa on 04-07-2025 Glucose Ql (U) Normal mg/dl Normal [facility] Urine leukocyte esterase det ection by dipstickOrdered By: Venkat Mustafa on 04-07-2025 Leukocyte esterase Test strip Ql (U) Negative Negative [facility] Urine pHOrdered By: Venkat Mustafa on 04-07-2025 pH (U) 7.0 [pH] 5.0 - 8.0 [facility] Urine phencyclidine (PCP) de tectionOrdered By: Milo Mcnally on 04-07-2025 Phencyclidine Ql (U) Negative < 25 ng/mL [facility] Urine sediment bacteria coun t by microscopy (number/high power field)Ordered By: Venkat Mustafa on 04-07-2025 Bacteria LM.HPF (Urine sed) [#/Area] RARE /hpf None Seen [facility] Urine specific gravity measu rementOrdered By: Venkat Mustafa on 04-07-2025 Specific gravity (U) [Rel density] 1.010 1.002-1.030 [facility] Urine urobilinogen measureme ntOrdered By: Venkat Mustafa on 04-07-2025 Urobilinogen Ql (U) Normal mg/dl Normal [facility] White blood cell (WBC) count Ordered By: Venkat Mustafa on 04-07-2025 WBC (Bld) [#/Vol] 8.5 10*3/uL 4.4-11.0 [facility] White blood cell countOrdere d By: Venkat Mustafa on 04-07-2025 White blood cell count 0 SEEN /hpf 0-5 [facility] Absolute lymphocyte countOrd ered By: Teodoro Daley on 04-04-2025 Lymphocytes Auto (Unsp spec) [#/Vol] 1.18 10*3/uL 0.83-4.51 [facility] Absolute neutrophil countOrd ered By: Teodoro Daley on 04-04-2025 Neutrophils (Bld) [#/Vol] 5.8 10*3/uL 2.0-7.7 [facility] Anion gap in Serum or Plasma Ordered By: Teodoro Daley on 04-04-2025 Anion gap [Moles/Vol] 9 mmol/L 5-15 [facility] Automated lymphocyte count a s percentage of total leukocytesOrdered By: Teodoro Daley on 04-04-2025 Lymphocytes/100 WBC Auto (Unsp spec) 14.8 % Low 19-41 [facility] BUN/creatinine ratioOrdered By: Teodoro Daley on 04-04-2025 Urea nitrogen/Creatinine [Mass ratio] 7.8 mg/mg Low - [facility] Basic Metabolic Profile (BMP )on 04-04-2025 BUN/CRE 7.8 RATIO Low - [facility] Comment on above: Performed By: #### L 500.2500, L100.0100 #### [facility] [address] [place], [address] Calcium [Mass/Vol] 8.9 mg/dL Normal 7.6-11.0 [facility] Comment on above: Performed By: #### L 500.2500, L100.0100 #### [facility] [address] [place], [address] Chloride [Moles/Vol] 109 mmol/L High 98-108 [facility] Comment on above: Performed By: #### L 500.2500, L100.0100 #### [facility] [address] [place], [address] CO2 [Moles/Vol] 24.5 mmol/L Normal 21.0-32.0 [facility] Comment on above: Performed By: #### L 500.2500, L100.0100 #### [facility] [address] [place], [address] Creatinine [Mass/Vol] 0.91 mg/dL Normal 0.70-1.20 [facility] Comment on above: Performed By: #### L 500.2500, L100.0100 #### [facility] [address] [place], [address] ECRCL 56.35 ml/min Normal 50-250 [facility] Comment on above: Performed By: #### L 500.2500, L100.0100 #### [facility] [address] [place], [address] GAP 9 Normal 5-15 [facility] Comment on above: Performed By: #### L 500.2500, L100.0100 #### [facility] [address] [place], [address] GFR/1.73 sq M.predicted among non-blacks MDRD (S/P/Bld) [Vol rate/Area] 66 mL/min/{1.73_m2} Normal >60 [facility] Comment on above: Result Comment: mL/m in/1.73m2 CKD-EPI Creatinine Equation (2020) Performed By: #### L 500.2500, L100.0100 #### [facility] [address] [place], [address] Glucose [Mass/Vol] 99 mg/dL Normal 70-99 [facility] Comment on above: Performed By: #### L 500.2500, L100.0100 #### [facility] [address] [place], [address] Potassium [Moles/Vol] 3.8 mmol/L Normal 3.3-5.1 [facility] Comment on above: Performed By: #### L 500.2500, L100.0100 #### [facility] [address] [place], [address] Sodium [Moles/Vol] 143 mmol/L Normal 133-145 [facility] Comment on above: Performed By: #### L 500.2500, L100.0100 #### [facility] [address] [place], [address] Urea nitrogen [Mass/Vol] 7 mg/dL Normal 4-19 [facility] Comment on above: Performed By: #### L 500.2500, L100.0100 #### [facility] [address] [place], [address] Basophil percentageOrdered B y: Teodoro Daley on 04-04-2025 Basophils/100 WBC (Bld) 0.6 % 0-1 [facility] CBC W/Diff, Automatedon 10-2 -2024 Absolute Lymph 1.18 X10 3/uL Normal 0.83-4.51 [facility] Comment on above: Performed By: #### L 500.2500, L100.0100 #### [facility] [address] [place], [address] Absolute Neut 5.8 X10 3/uL Normal 2.0-7.7 [facility] Comment on above: Performed By: #### L 500.2500, L100.0100 #### [facility] [address] [place], [address] Basophils/100 WBC (Bld) 0.6 % Normal 0-1 [facility] Comment on above: Performed By: #### L 500.2500, L100.0100 #### [facility] [address] [place], [address] Eosinophils/100 WBC (Bld) 6.3 % High 0-5 [facility] Comment on above: Performed By: #### L 500.2500, L100.0100 #### [facility] [address] [place], [address] Erythrocyte distribution width (RBC) [Ratio] 13.1 % Normal 11.6-14.6 [facility] Comment on above: Performed By: #### L 500.2500, L100.0100 #### [facility] [address] [place], [address] Hematocrit (Bld) [Volume fraction] 39.9 % Normal 37-47 [facility] Comment on above: Performed By: #### L 500.2500, L100.0100 #### [facility] [address] [place], [address] Hemoglobin (Bld) [Mass/Vol] 13.6 g/dL Normal 12.0-15.0 [facility] Comment on above: Performed By: #### L 500.2500, L100.0100 #### [facility] [address] [place], [address] IG% 0.500 Normal 0.0-0.9 [facility] Comment on above: Result Comment: IG% - Immature Granulocytes (promyelocytes, myelocytes and metamyelocytes) > 1% indicates that a LEFT SHIFT is Present. Performed By: #### L 500.2500, L100.0100 #### [facility] [address] [place], [address] Lymphocytes/100 WBC (Bld) 14.8 % Low 19-41 [facility] Comment on above: Performed By: #### L 500.2500, L100.0100 #### [facility] [address] [place], [address] MCH (RBC) [Entitic mass] 31.6 pg Normal 27.0-32.0 [facility] Comment on above: Performed By: #### L 500.2500, L100.0100 #### [facility] [address] [place], [address] MCHC (RBC) [Mass/Vol] 34.1 g/dL Normal 32-36 [facility] Comment on above: Performed By: #### L 500.2500, L100.0100 #### [facility] [address] [place], [address] MCV (RBC) [Entitic vol] 92.8 fL Normal 81-99 [facility] Comment on above: Performed By: #### L 500.2500, L100.0100 #### [facility] [address] [place], [address] Monocytes/100 WBC (Bld) 5.3 % Normal 0-10 [facility] Comment on above: Performed By: #### L 500.2500, L100.0100 #### [facility] [address] [place], [address] Neutrophils/100 WBC (Bld) 72.5 % High 47-70 [facility] Comment on above: Performed By: #### L 500.2500, L100.0100 #### [facility] [address] [place], [address] Nucleated RBC (Bld) [#/Vol] 0 10*3/uL Normal 0-5 [facility] Comment on above: Performed By: #### L 500.2500, L100.0100 #### [facility] [address] [place], [address] Platelet mean volume (Bld) [Entitic vol] 11.9 fL Normal 6.2-12.0 [facility] Comment on above: Performed By: #### L 500.2500, L100.0100 #### [facility] [address] [place], [address] Platelets (Bld) [#/Vol] 230 10*3/uL Normal 150-450 [facility] Comment on above: Performed By: #### L 500.2500, L100.0100 #### [facility] [address] [place], [address] RBC (Bld) [#/Vol] 4.30 10*6/uL Normal 4.2-5.4 [facility] Comment on above: Performed By: #### L 500.2500, L100.0100 #### [facility] [address] [place], [address] RDW SD 44.3 fl High 35.1-43.9 [facility] Comment on above: Performed By: #### L 500.2500, L100.0100 #### [facility] [address] [place], [address] WBC (Bld) [#/Vol] 8.0 10*3/uL Normal 4.4-11.0 [facility] Comment on above: Performed By: #### L 500.2500, L100.0100 #### [facility] [address] [place], [address] Carbon dioxide, total [Moles /volume] in Central venous bloodOrdered By: Teodoro Daley on 04-04-2025 CO2 [Moles/Vol] 24.5 mmol/L 21.0-32.0 [facility] Chloride assayOrdered By: Jill Daley on 04-04-2025 Chloride [Moles/Vol] 109 mmol/L High 98-108 [facility] Emergency Department Summary on 04-04-2025 Emergency Department Summary [facility] Medical Records Department [address] [place] [address] Emergency Department Summary 04/04/25 MR#: [id number] Acct: [id number] Name: ILENE SHAW Rep #: [id number] : 1950 75 From: Teodoro Daley MD [...] that extremity. Prior similar symptoms: No Recent Illness/Hospitalization : No PFSH PFS Medical History Vaginal candidiasis Acute bronchitis, unspecified [...] housing: house Smoking Status: Never smoker ROS [facility] ED Cardiovascular Cardiovascular: Denies chest pain, orthopnea, palpitations, paroxysmal nocturnal dyspnea or racing heartbeat Respiratory/Chest Respiratory/Chest: Denies cough, dyspnea, dyspnea on exertion, orthopnea or paroxysmal nocturnal dyspnea Neurologic Neurologic: Denies paresthesias or weakness Hematologic/Lymphatic Hematologic/Lymphatic: Denies easy bleeding, easy bruising or lymphadenopathy [...] since t (more content not included)... Normal [facility] Eosinophil percentageOrdered By: Teodoro Daley on 04-04-2025 Eosinophils/100 WBC (Bld) 6.3 % High 0-5 [facility] Erythrocyte distribution wid th ratioOrdered By: Teodoroshelbie Daley on 04-04-2025 Erythrocyte distribution width (RBC) [Ratio] 13.1 % 11.6-14.6 [facility] Erythrocyte distribution wid th standard deviationOrdered By: Teodoroshelbie Daley on 04-04-2025 Erythrocyte distribution width (RBC) [Ratio] 44.3 fl High 35.1-43.9 [facility] Glomerular filtration rate ( GFR) estimation/1.73 sq m using serum, plasma, or whole bOrdered By: Teodoro Daley on 04-04-2025 GFR/1.73 sq M.predicted among non-blacks MDRD (S/P/Bld) [Vol rate/Area] 66 mL/min/{1.73_m2} >60 [facility] Comment on above: mL/min/1.73m2 CKD-EP I Creatinine Equation (2020) Hematocrit Auto (Bld) [Volum e fraction]Ordered By: Teodoro Daley on 04-04-2025 Hematocrit (Bld) [Volume fraction] 39.9 % 37-47 [facility] Hemoglobin measurementOrdere d By: Teodoro Daley on 04-04-2025 Hemoglobin (Bld) [Mass/Vol] 13.6 g/dL 12.0-15.0 [facility] Immature granulocytes/100 WB C Auto (Bld)Ordered By: Teodoro Daley on 04-04-2025 Immature granulocytes/100 WBC (Bld) 0.500 % 0.0-0.9 [facility] Comment on above: IG% - Immature Granu locytes (promyelocytes, myelocytes and metamyelocytes) > 1% indicates that a LEFT SHIFT is Present. MCV (mean corpuscular volume ) determinationOrdered By: Teodoro Daley on 04-04-2025 MCV (RBC) [Entitic vol] 92.8 fL 81-99 [facility] Mean corpuscular hemoglobin (MCH) determinationOrdered By: Teodoroshelbie Daley on 04-04-2025 MCH (RBC) [Entitic mass] 31.6 pg 27.0-32.0 [facility] Mean corpuscular hemoglobin concentration (MCHC) determinationOrdered By: Teodoro Daley on 04-04-2025 MCHC (RBC) [Mass/Vol] 34.1 g/dL 32-36 [facility] Mean platelet volume determi nationOrdered By: Teodoro Daley on 04-04-2025 Platelet mean volume (Bld) [Entitic vol] 11.9 fL 6.2-12.0 [facility] Monocyte percentageOrdered B y: Teodoro Daley on 04-04-2025 Monocytes/100 WBC (Bld) 5.3 % 0-10 [facility] Neutrophil percentageOrdered By: Teodoro Daley on 04-04-2025 Neutrophils/100 WBC (Bld) 72.5 % High 47-70 [facility] Nucleated red blood cell per centageOrdered By: Teodoro Daley on 04-04-2025 Nucleated RBC/100 WBC (Bld) [Ratio] 0 % 0-5 [facility] Platelet countOrdered By: Jill Daley on 04-04-2025 Platelets (Bld) [#/Vol] 230 10*3/uL 150-450 [facility] Potassium measurement (mass/ volume)Ordered By: Teodoro Daley on 04-04-2025 Potassium (Unsp spec) [Mass/Vol] 3.8 mmol/L 3.3-5.1 [facility] RBC Auto (Bld) [#/Vol]Ordere d By: Teodoro Daley on 04-04-2025 RBC (Bld) [#/Vol] 4.30 10*6/uL 4.2-5.4 [facility] Serum creatinine measurement (mass/volume)Ordered By: Teodoro Daley on 04-04-2025 Creatinine [Mass/Vol] 0.91 mg/dL 0.70-1.20 [facility] Serum glucose measurement (m ass/volume)Ordered By: Teodoro Daley on 04-04-2025 Glucose [Mass/Vol] 99 mg/dL 70-99 [facility] Serum or plasma calcium iwona urement (mass/volume)Ordered By: Teodoro Daley on 04-04-2025 Calcium [Mass/Vol] 8.9 mg/dL 7.6-11.0 [facility] Serum or plasma urea nitroge n measurement (mass/volume)Ordered By: Teodoro Daley on 04-04-2025 Urea nitrogen [Mass/Vol] 7 mg/dL 4-19 [facility] Sodium levelOrdered By: Toedoro Daley on 04-04-2025 Sodium [Moles/Vol] 143 mmol/L 133-145 [facility] Venous Duplex US, Unilateral on 04-04-2025 Venous Duplex US, Unilateral [facility] [address] [place] [address] Venous Duplex US, Unilateral 04/04/25 1109 MR#: [id number] Acct: [id number] Name: ILENE SHAW Rep #: [id number] : 1950 75 From: Bran Alston MD [...] MD; Dr. Teodoro Daley MD Date Dictated: 04/04/251108 Date Transcribed: 04/04/251554 Wafer Machine Operator: Signed Normal [facility] Venous duplex ultrasound rep ortOrdered By: Bran Alston on 04-04-2025 US Vein [facility] [address] [place] [address] Venous Duplex US, Unilateral 04/04/251108 MR#: [id number] Acct: [id number] Name: ILENE SHAW Rep #:[id number] : 1950 75 From: Bran Rhodes Attending Dr: Status: DEP E R Ordering Dr: Teodoro Daley MD Date: 04/04 Location: ED Sex: F C Admitted: Reason For Study Reason For Study: Palpable cord RIGHT LEFT CFV is compressible, spontaneous, phasic, competent Acute superficial vein thrombosis is noted in the left and demonstrates normal augmentation. GSV from grointo mid calf. It is dilated and Procedure [...] Physician: Jennifer Santos Performed By: Jenn Naranjo Cat 04/04/25 4797 Date _ Bran Alston MD CC: Dr. Jennifer Santos MD; Dr. Teodoro Daley MD ~ Date Dictated: 04/04/25 1109 Date Transcribed: 04/04/25 910 Wafer Machine Operator: Signed [facility] Work Phone: White blood cell (WBC) count Ordered By: Teodoro Daley on 04-04-2025 WBC (Bld) [#/Vol] 8.0 10*3/uL 4.4-11.0 [facility] Urgent Care Visit Reporton 0 01-03-2025 Urgent Care Visit Report [facility] [address] [place] [address] OFFICE VISIT Date of Service: 01/03/25 MR#: [id number] Acct: [id number] Name: ILENE SHAW Rep #: [id number] : 1950 Provider: RA Currie Age/Sex: 74/F Location: [facility] [place] [place] Status: Signed Intake Vital Signs 08/28/23 16:43 01/03/25 15:04 Height 5 ft 2 in 5 ft 2 in Weight: 195 lb BMI 35.6 BP 130/84 H Blood Pressure Location Lt brachial Position Sitting Respiration 16 Pulse 94 Pulse Source Monitor Temp 98.2 F Temp Source Oral Pulse Oximetry (%) 97 Oxygen Delivery Method room air Intake Visit Reasons: Cough Chief Complaint: Cough Equal Employment Opportunity Officer Required: No Accompanied by: Self Is patient [...] Has tried otc medications for cold symptoms. [facility] Medical History (Updated 01/03/25 @ 15:18 [...] supine. No complaints of fever, chills, sweats, lightheadedness/dizzine ss, nausea/vomiting, or chest pain/shortness of breath/dyspnea on exertion. Non-smoker. No close contacts with similar complaints. No [id number] products taken to assist. Additionally, patient notes having a history of chronic vaginal pruritus and concern for vaginal candidiasis; she notes [id number] Monistat cream helping some but may not resolve her symptoms. No other associated symptoms and no alleviating/aggravating factors. ROS Const Constitutional: No other (As above) Exam Const General: cooperative, healthy appearing and no acute distress Orientation: alert and awake [facility] Head: normal to inspection Ears: hearing [...] to 5 (more content not included)... Normal [facility] 12-20-2024 CNCO Letter Text Normal [facility] BARBARA SCREENING W TOMOon 09-22 BARBARA SCREENING W EL * * *Final Report* * * DATE OF EXAM: Sep 22 2024 9:56AM WRW 0582 - BARBARA SCREENING W EL / PROCEDURE REASON: Encounter for screening mammogram for breast cancer * * * * Physician Interpretation * * * * RESULT: [place] [id number] #[id number] - BARBARA SCREENING W EL HISTORY: 74 [...] Mita Finney M.D. Electronically signed on: 09/23/2024 Wafer Machine Operator: SÁNCHEZ Transcribe Date/Time: Sep 22 2024 9:45A Dictated by: MITA FINNEY MD This examination was interpreted and the report reviewed and electronically signed by: MITA FINNEY MD on Sep 23 2024 7:47PM EST [id number] Normal [facility] 09-14-2024 CNPN Telephone (INTMWS) ILENE SHAW ([id number]) 1950 F Date Time Provider Department 09/14/24 [...] - Swelling Date Reviewed: 05/10/2024 Reviewed by: Claudette Dial LPN - Fully Assessed Reason for Visit: Orders [681] Visit Diagnosis:Encounter for screening mammogram for breast cancer [Z12.31] Order(s):BARBARA SCREENING W EL [[id number]] Order #: [id number] FUTURE Prescriptions as of 09/14/2024 - aspirin [...] Encounter Status:Closed by KELLE PETER on 09/14/24 Normal [facility] Kelsie 05-11-2024 [facility] Telephone (UCWSTR) ILENE SHAW ([id number]) 1950 F Date Time Provider Department 05/11/24 TORREY DAWSON WSTR During your visit today, we recorded the following information about you: Torrey Dawson, JIGNESH 05/11/2024 8:42 AM Signed Please call and [...] results and verbalized understanding of instructions given. Claudette Dial LPN Allergies As of Date: 05/11/2024 Noted Allergy Reaction ELIQUIS (APIXABAN) 03/03/2022 7 - Swelling 10 - Anaphylaxis Comments: swelling everywhere including lips on mouth AMPICILLIN 08/11/2005 2 - Rash 9 - Itching XARELTO (RIVAROXABAN) 03/17/2022 7 - Swelling Date Reviewed: 05/10/2024 Reviewed by: lCaudette Dial LPN - Fully Assessed Reason for Visit: Results [95] Order(s):fluconazole (DIFLUCAN) 150 mg tabletTake 1 tablet by mouth once daily for 1 day.Disp: 1 tabletRfl: 0 Prescriptions as of 05/11/2024 - fluconazole (DIFLUCAN) 150 mg tablet Take 1 tablet by mouth once daily for 1 day. - nystatin-triamcinolone (MYCOLOG) ointment Apply sparingly to perineum [...] daily for 1 day. Encounter Status:Closed by CLAUDETTE DIAL on 05/11/24 Normal [facility] BACTERIAL VAGINOSIS NAATon 1 07-10-2023 Lactobacillus crispatus+gasseri+shahana enii + Gardnerella vaginalis + Atopobium vaginae rRNA RADHA+probe Ql (Vag fld) Not detected Normal Not detected [facility] Comment on above: Order Comment: Speci men Type: SWABOrdering Facility: [facility] Address: [address] [place] [address] Performed By: #### Arlene CHADWICK, 07027-0 ####[facility] [id number] [facility] [id number] [address] [place] Bacteria Ur Culton 11-26-202 4 Bacteria identified Cx Nom (U) CULTURE, URINE: Mixed microbiota, including predominantly: ORGANISM ID: 1 >=100,000 CFU/ml Escherichia coli ORGANISM ID: 1 (ESCHERICHIA COLI) ANTIBIOTIC INTERPRETATION ABRAHAM STATUS REFERENCE RANGE Ampicillin R >=32 F Susceptible <=8 , [...] , Intermediate >32 , Resistant >64 Abnormal [facility] Comment on above: Performed By: #### 6 30-4 ####[facility] LABCLIA [id number] [place] [address] [place] C. trachomatis+N. gonorrhoea e DNA RADHA+probe Ql (Unsp spec)on 05-10-2024 C. trachomatis rRNA RADHA+probe Ql (Unsp spec) Not detected Normal Not detected [facility] Comment on above: Order Comment: Speci men Type: SWABOrdering Facility: [facility] Address: [address] [place] [address] Performed By: #### Arlene VAMP, 10961-8 ####[facility] LABCLIA [id number] [place] [address] [place] N. gonorrhoeae rRNA RADHA+probe Ql (Unsp spec) Not detected Normal Not detected [facility] Comment on above: Order Comment: Speci men Type: SWABOrdering Facility: [facility] Address: [address] [place] [address] Performed By: #### Arlene VAMP, 36205-2 ####[facility] LABCLIA [id number] [place] [address] [place] ALBA/TRICHOMONAS NAATon 1 07-10-2023 C. glabrata RNA RADAH+probe Ql (Vag fld) Not detected Normal Not detected [facility] Comment on above: Order Comment: Speci men Type: SWABOrdering Facility: [facility] Address: [address] [place] [address] Performed By: #### C VTV ####[facility]CLIA [id number] [place] [address] [place] Alba sp DNA RADHA+probe Ql (Vag fld) Detected Abnormal Not detected [facility] Comment on above: Order Comment: Speci men Type: SWABOrdering Facility: [facility] Address: [address] [place] [address] Result Comment: The Alba species group target includes C. albicans, C. tropicalis, C. parapsilosis, and C. dubliniensis. Performed By: #### C VTV ####[facility] LABIA [id number] [address] OF [facility] T. vaginalis DNA RADHA+probe Ql (Unsp spec) Not detected Normal Not detected [facility] Comment on above: Order Comment: Speci men Type: SWABOrdering Facility: [facility] Address: [address] [place] [address] Performed By: #### C VTV ####[facility]CLIA [id number] [address] OF [facility] CNOVon 05-10-2024 CNOV Office Visit (UCWSTR ) SINANSEYMOURILENE Rutherford ([id number]) 1950 F Date Time Provider Department 05/10/24 12:30 PM TORREY DAWSON WSTR During your visit today, we recorded the following information about you: Temperature Pulse Respiration Blood pressure 98.1 degrees 75/minute 20/minute 136/78 Weight 87 kg Torrey Dawson PA-C 05/10/2024 2:21 PM Signed This note was created using ClassPassriter. Subjective Ilene Sangeeta Valeria is a 74 year old [...] Exam Vitals reviewed. Exam conducted with a lean manufacturing specialist present (Claudette ARTHUR). Constitutional: Appearance: Normal appearance. HENT: Head: [...] - Swelling Date Reviewed: 05/10/2024 Reviewed by: Claudette Dial LPN - Fully Assessed Reaso (more content not included)... Normal [facility] UA DIP, URINE (POC)on 2023 BILIRUBIN UA (POCT) Negative Negative [facility] CLARITY UA (POCT) Cloudy [facility] COLOR UA (POCT) Dark yellow [facility] GLUCOSE UA (POCT) Negative Negative mg/dL [facility] Hemoglobin Ql (U) Large Abnormal Negative [facility] Interpretation and review of laboratory results Abnormal [facility] KETONE UA (POCT) Negative Negative mg/dL [facility] LEUKOCYTES UA (POCT) Trace Abnormal Negative [facility] NITRITE UA (POCT) Positive Abnormal Negative [facility] PH UA (POCT) 5.5 4.5 - 8.0 [facility] Protein Ql (U) >=300 Abnormal Negative mg/dL [facility] SPECIFIC GRAVITY UA (POCT) 1.025 1.005 - 1.030 [facility] UROBILINOGEN UA (POCT) 0.2 Normal E.U./d L [facility] Location:[address], [place], [place], [address] [place] [address] POINT OF CARE [facility] XR Chest PA and Lateralon IMPRESSION: No acute radiographic abnormality. Wafer Machine Operator: AAKASH Transcribe Date/Time: Nov 18 2023 11:20A Dictated by : ELLI BAUM MD This examination was interpreted and the report reviewed and electronically signed by: ELLI BAUM MD on Nov 18 2023 11:21AM [facility] DIVISION OF RADIOLOGY * * *Final Report* [...] wall surgical clips. DIVISION OF RADIOLOGY Provider, [facility] Caroline alves [place] - 11/18/2023 * * *Final Report* * [...] clips. IMPRESSION IMPRESSION: No acute radiographic abnormality. Wafer Machine Operator: PSCB Transcribe Date/Time: Nov 18 2023 11:20A Dictated by : ELLI BAUM MD This examination was interpreted and the report reviewed and electronically signed by: ELLI BAUM MD on Nov 18 2023 11:21AM EST [facility] Radiology Study observation (narrative) [facility] XR Chest PA and LateralOrder ed By: Ccf Provider on 11-18-2023 [facility] BACTERIAL VAGINOSIS NAATon 0 10-22-2023 Interpretation and review of laboratory results Normal [facility] Lactobacillus crispatus+gasseri+shahana enii + Gardnerella vaginalis + Atopobium vaginae rRNA RADHA+probe Ql (Vag fld) Negative Negative for bacterial vaginosis [facility] ALBA/TRICHOMONAS NAATon 0 10-22-2023 C. glabrata RNA RADHA+probe Ql (Vag fld) Negative Negative for Alba glabrata [facility] Alba sp DNA RADHA+probe Ql (Vag fld) Positive Abnormal Negative for Alba species [facility] Interpretation and review of laboratory results Abnormal [facility] T. vaginalis DNA RADHA+probe Ql (Unsp spec) Negative Negative for Trichomonas vaginalis by amplification [facility] UA DIP, URINE (POC)on 2023 BILIRUBIN UA (POCT) Negative Negative [facility] CLARITY UA (POCT) Clear [facility] COLOR UA (POCT) Yellow [facility] GLUCOSE UA (POCT) Negative Negative mg/dL [facility] Hemoglobin Ql (U) Negative Negative [facility] KETONE UA (POCT) Negative Negative mg/dL [facility] LEUKOCYTES UA (POCT) Negative Negative [facility] NITRITE UA (POCT) Negative [facility] PH UA ([facility]CT) 5.5 4.5 - 8.0 [facility] Protein Ql (U) Negative Negative mg/dL [facility] SPECIFIC GRAVITY UA (POCT) 1.025 1.005 - 1.030 [facility] UROBILINOGEN UA (POCT) 0.2 Normal E.U./d L [facility] Location:[facility], [address] [place] [address], [place], [place], [address] [place] [address] POINT OF CARE [facility] DBT Breast - left diagnostic for implanton 09-30-2023 [facility] US Breast - left limitedon 0 09-30-2023 [facility] CBC panel Auto (Bld)on 05-22 Erythrocyte distribution width (RBC) [Ratio] 12.6 % 11.5 - 15.0 % [facility] Hematocrit (Bld) [Volume fraction] 42.8 % 36.0 - 46.0 % [facility] Hemoglobin (Bld) [Mass/Vol] 14.0 g/dL 11.5 - 15.5 g/dL [facility] MCH (RBC) [Entitic mass] 31.3 pg 26.0 - 34.0 pg [facility] MCHC (RBC) [Mass/Vol] 32.7 g/dL 30.5 - 36.0 g/dL [facility] MCV (RBC) [Entitic vol] 95.7 fL 80.0 - 100.0 fL [facility] Nucleated RBC (Bld) [#/Vol] <0.01 k/uL [facility] Platelet mean volume (Bld) [Entitic vol] 11.6 fL 9.0 - 12.7 fL [facility] Platelets (Bld) [#/Vol] 256 10*3/uL 150 - 400 k/uL [facility] RBC (Bld) [#/Vol] 4.47 10*6/uL 3.90 - 5.2 0 m/uL [facility] WBC (Bld) [#/Vol] 8.44 10*3/uL 3.70 - 11. 00 k/uL [facility] No Panel Informationon 09-03 [facility] Absolute lymphocyte counton 03-02-2022 Lymphocytes Auto (Unsp spec) [#/Vol] 1.96 10*3/uL 0.83-4.51 [facility] Work Phone: Basophil percentageon 2021 Basophils/100 WBC (Bld) 0.6 % 0-1 [facility] Work Phone: Bilirubin [Mass/Vol] 0.40 mg/dL 0.20-1.00 [facility] Work Phone: Comment on above: For patients on eltr ombopag therapy, use of Dimension [place] TBIL is not recommended. Chloride [Moles/Vol] 108 mmol/L 98-107 [facility] Work Phone: Eosinophils/100 WBC (Bld) 5.5 % 0-5 [facility] Work Phone: Glucose [Mass/Vol] 93 mg/dL 74-106 [facility] Work Phone: Neutrophils (Bld) [#/Vol] 5.0 10*3/uL 2.0-7.7 [facility] Work Phone: Neutrophils/100 WBC (Bld) 62.7 % 47-70 [facility] Work Phone: Potassium [Moles/Vol] 3.6 mmol/L 3.5-5.1 [facility] Work Phone: Protein [Mass/Vol] 7.6 g/dL 6.4-8.2 [facility] Work Phone: Sodium [Moles/Vol] 143 mmol/L 136-145 [facility] Work Phone: WBC (Bld) [#/Vol] 8.0 10*3/uL 4.4-11.0 [facility] Work Phone: Blood erythrocytes count (nu mber/volume)on 03-02-2022 RBC (Bld) [#/Vol] 4.56 10*6/uL 4.2-5.4 [facility] Work Phone: Blood hemoglobin measurement (mass/volume)on 03-02-2022 Hemoglobin (Bld) [Mass/Vol] 14.3 g/dL 12.0-15.0 [facility] Work Phone: Blood lymphocytes/100 leukoc yteson 03-02-2022 Lymphocytes/100 WBC (Bld) 24.5 % 19-41 [facility] Work Phone: [phone] Blood monocytes/100 leukocyt eson 03-02-2022 Monocytes/100 WBC (Bld) 6.6 % 0-10 [facility] Work Phone: Blood platelet mean volumeon 03-02-2022 Platelet mean volume (Bld) [Entitic vol] 11.1 fL 6.2-12.0 [facility] Work Phone: Determination of erythrocyte mean corpuscular volume (MCV)on 03-02-2022 MCV (RBC) [Entitic vol] 95.6 fL 81-99 [facility] Work Phone: Hematocrit Auto (Bld) [Volum e fraction]on 03-02-2022 Hematocrit (Bld) [Volume fraction] 43.6 % 37-47 [facility] Work Phone: INR in Blood by Coagulation assayon 03-02-2022 INR Coag (Bld) [Relative time] 1.1 {INR} [facility] Work Phone: Laboratory - Chemistry and C hemistry - challengeon 03-02-2022 ALP [Catalytic activity/Vol] 86 U/L 45-117 [facility] Work Phone: ALT [Catalytic activity/Vol] 18 U/L 13-56 [facility] Work Phone: CO2 [Moles/Vol] 27.0 mmol/L 21.0-32.0 [facility] Work Phone: Globulin (S) [Mass/Vol] 3.9 g/dL 2.2-4.2 [facility] Work Phone: Urea nitrogen/Creatinine [Mass ratio] 9.8 mg/mg 10-20 [facility] Work Phone: Laboratory - Coagulationon 0 03-02-2022 aPTT Coag (Bld) [Time] 31.7 s 24.1-36.2 [facility]ivo [facility] Work Phone: PT Coag (PPP) [Time] 13.5 s 11.7-14.9 [facility] Work Phone: Laboratory - Hematology and Cell countson 03-02-2022 Erythrocyte distribution width (RBC) [Entitic vol] 47.2 fL 35.1-43.9 [facility] Work Phone: Erythrocyte distribution width (RBC) [Ratio] 13.2 % 11.6-14.6 [facility] Work Phone: Immature granulocytes/100 WBC (Bld) 0.100 % 0.0-0.9 [facility] Work Phone: Comment on above: IG% - Immature Granu locytes (promyelocytes, myelocytes and metamyelocytes) > 1% indicates that a LEFT SHIFT is Present. MCH (RBC) [Entitic mass] 31.4 pg 27.0-32.0 [facility] Work Phone: Nucleated RBC/100 WBC (Bld) [Ratio] 0 % 0-5 [facility] Work Phone: MCHC Auto (RBC) [Mass/Vol]on 03-02-2022 MCHC (RBC) [Mass/Vol] 32.8 g/dL 32-36 [facility] Work Phone: No Panel Informationon 03-02 Estimated Creatinine Clearance Calc 43.72 ml/min [facility] Work Phone: Estimated GFR (MDRD) Amer 77 mL/min >60 [facility] Work Phone: Comment on above: GFR Calc Estimated GFR (MDRD) Non-Af Amer 64 mL/min >60 [facility] Work Phone: Comment on above: Non- GFR Calc Platelets bldon 03-02-2022 Platelets (Bld) [#/Vol] 267 10*3/uL 150-450 [facility] Work Phone: Serum or plasma albumin iwona urement (mass/volume)on 03-02-2022 Albumin [Mass/Vol] 3.7 g/dL 3.2-5.0 [facility] Work Phone: Serum or plasma albumin/glob ulin mass ratioon 03-02-2022 Albumin/Globulin [Mass ratio] 0.9 {ratio} 0.9-2.4 [facility] Work Phone: Serum or plasma calcium iwona urement (mass/volume)on 03-02-2022 Calcium [Mass/Vol] 9.2 mg/dL 8.5-10.1 [facility] Work Phone: Serum or plasma creatinine m easurement (mass/volume)on 03-02-2022 Creatinine [Mass/Vol] 0.92 mg/dL 0.55-1.02 [facility] Work Phone: Comment on above: The validity of the calculated GFR & GFRAA in patients over 70 years has not been determined. Clinical correlation is essential. Serum or plasma urea nitroge n measurement (mass/volume)on 03-02-2022 Urea nitrogen [Mass/Vol] 9 mg/dL 7-18 [facility] Work Phone: Thin prep Papanicolaou smear with manual screeningon 03-02-2022 Thin prep Papanicolaou smear with manual screening 16 U/L 15-37 [facility] Work Phone: Thin prep Papanicolaou smear with manual screening 8 5-15 [facility] Work Phone: US LEG VEIN DVT UNL VAS LABo n 02-07-2022 [facility] UA DIP, URINE (POC)on 2021 BILIRUBIN UA (POCT) Small Abnormal Negative [facility] CLARITY UA (POCT) [facility] COLOR UA (POCT) Dark yellow [facility] GLUCOSE UA (POCT) Negative Negative mg/dL [facility] HEMOGLOBIN/BLOOD UA (POCT) Trace-intact Abnormal Negative [facility] KETONE UA (POCT) Negative Negative mg/dL [facility] LEUKOCYTES UA (POCT) Trace Abnormal Negative [facility] NITRITE UA (POCT) Negative Negative [facility] PH UA (POCT) 5.5 4.5 - 8.0 [facility] Protein Ql (U) Trace Abnormal Negative mg/dL [facility] SPECIFIC GRAVITY UA (POCT) >=1.030 1.005 - 1.030 [facility] UROBILINOGEN UA (POCT) 0.2 E.U./dL Normal E.U./ dL [facility] BARBARA SCREENINGon 09-02-2021 [facility] CNOVon 11-02-2018 CNOV Office Visit (AKURFL ) ILENE SHAW ([id number]) 1950 F Date Time Provider Department 11/02/18 10:30 AM DEEP SHANE During your visit today, we recorded the following information about you: Deep Shane DO, MBA 11/02/2018 11:31 AM Signed ?? [facility] [place] LOCATION: [address] [place] [address] CYSTOSCOPY PROCEDURE NOTE: Ilene Sangeeta Shaw is a 68 year old female who presents with bladder nodule for a cystoscopy. Pt ID verified with patient: Yes Procedure verified with patient: Yes Procedure confirmed with physician and senior administrator support: Yes Sign In: History and Physical Exam [...] Shane DO, MBA Referring Provider: DEEP SHANE [[id number]] Allergies As of Date: 11/02/2018 Noted Allergy [...] Encounter Status:Closed by DEEP SHANE on 11/02/18 [facility] PROCEDUREon 11-02-2018 Protein mass conc HNO ID: [id number] Author: Deep Shane Service: ? Author Type: Physician Type: Procedures Filed: 11/02/2018 11:31 AM Note Text: ?? [facility] LOCATION: [address] [place], [place] [id number] CYSTOSCOPY PROCEDURE NOTE: Ilene Shaw is a 68 year old female who presents with bladder nodule for a cystoscopy. Pt ID verified with patient: Yes Procedure verified with patient: Yes Procedure confirmed with physician and senior administrator support: Yes Sign In: History and Physical Exam [...] Out: Sign Out Discussion: Completed Physician: Deep Shaen DO, MBA A urinalysis was performed revealing [...] consider mid-urethral sling Deep Shane DO, MBA Normal [facility] Vital Signs Date Time Vital Sign Value Performing Clinician Faci lity 04-07-2025 15:30-0400 Body temperature 98.2 [degF] Dr. Jennifer Santos MD Work Phone: [facility] 04-07-2025 15:30-0400 Diastolic blood pressure 64 mm[Hg] Dr. Jennifer Santos MD Work Phone: [facility] 04-07-2025 15:30-0400 Heart rate 71 /min Dr. Jennifer Santos MD Work Phone: [facility] 04-07-2025 15:30-0400 Respiratory rate 16 /min Dr. Jennifer Santos MD Work Phone: 4(484)746-409482 [place] [address] 04-07-2025 15:30-0400 SaO2% (BldA) [Mass fraction] 97 % Dr. Jennifer Santos MD Work Phone: 5(778)942-345282 [place] [address] 04-07-2025 15:30-0400 Systolic blood pressure 117 mm[Hg] Dr. Jennifer Santos MD Work Phone: 2(440)270-064682 [place] [address] 04-07-2025 12:09-0400 Body height 157.[address] Jennifer Santos MD Work Phone: 7(971)619-705582 [place] [address] 04-07-2025 12:09-0400 Body weight 87.[address] Jennifer Snatos MD Work Phone: 6(210)374-470182 [place] [address] 04-07-2025 08:10-0400 Body mass index (BMI) [Ratio] 35.2 kg/m2 Dr. Jennifer Santos MD Work Phone: 3(091)292-270482 [place] [address] 04-04-2025 12:48-0400 Body temperature 97.8 [degF] Dr. Jennifer Santos MD Work Phone: 0(021)237-032082 [place] [address] 04-04-2025 12:48-0400 Diastolic blood pressure 78 mm[Hg] Dr. Jennifer Santos MD Work Phone: 1(043)887-244682 [place] [address] 04-04-2025 12:48-0400 Heart rate 64 /min Dr. Jennifer Santos MD Work Phone: 4(825)354-988182 [place] [address] 04-04-2025 12:48-0400 Respiratory rate 18 /min Dr. Jennifer Santos MD Work Phone: 9(764)466-805182 [place] [address] 04-04-2025 12:48-0400 SaO2% (BldA) [Mass fraction] 99 % Dr. Jennifer Santos MD Work Phone: 1(390)819-840882 [place] [address] 04-04-2025 12:48-0400 Systolic blood pressure 134 mm[Hg] Dr. Jennifer Santos MD Work Phone: 0(275)730-199482 [place] [address] 04-04-2025 11:06-0400 Body mass index (BMI) [Ratio] 37 kg/m2 Dr. Jennifer Santos MD Work Phone: 5(726)533-181182 [place] [address] 04-04-2025 11:06-0400 Body weight 91.[address] Jennfier Santos MD Work Phone: 1(930)521-840682 [place] [address] 01-03-2025 15:04-0400 Body height 157.[address] Jennifer Santos MD Work Phone: 6(625)669-735582 [place] [address] 01-03-2025 15:04-0400 Body mass index (BMI) [Ratio] 35.6 kg/m2 Dr. Jennifer Santos MD Work Phone: 3(648)895-306182 [place] [address] 01-03-2025 15:04-0400 Body temperature 98.2 [degF] Dr. Jennifer Santos MD Work Phone: 5(022)728-696782 [place] [address] 01-03-2025 15:04-0400 Body weight 88.[address] Jennifer Santos MD Work Phone: 6(728)423-860282 [place] [address] 01-03-2025 15:04-0400 Diastolic blood pressure 84 mm[Hg] Dr. Jennifer Santos MD Work Phone: 0(313)715-512082 [place] [address] 01-03-2025 15:04-0400 Heart rate 94 /min Dr. Jennifer Santos MD Work Phone: 3(150)130-203382 [place] [address] 01-03-2025 15:04-0400 Respiratory rate 16 /min Dr. Jennifer Santos MD Work Phone: 9(859)655-953782 [place] [address] 01-03-2025 15:04-0400 SaO2% (BldA) [Mass fraction] 97 % Dr. Jennifer Santos MD Work Phone: 6(865)846-885182 [place] [address] 01-03-2025 15:04-0400 Systolic blood pressure 130 mm[Hg] Dr. Jennifer Santos MD Work Phone: 5(579)338-616482 [place] [address] 05-10-2024 12:44-0500 Body mass index (BMI) [Ratio] 35.08 kg/m2 Torrey Dawson PA-C Work Phone: 8(850)489-793144 [place] [address] 05-10-2024 12:44-0500 Body temperature 98.1 [degF] Torrey Athy PA-C Work Phone: [facility] 05-10-2024 12:44-0500 Body weight 87 kg Torrey Athy PA-C Work Phone: [facility] 05-10-2024 12:44-0500 Diastolic blood pressure 78 mm[Hg] Torrey Athy PA-C Work Phone: [facility] 05-10-2024 12:44-0500 Heart rate 75 /min Torrey Athy PA-C Work Phone: [facility] 05-10-2024 12:44-0500 Respiratory rate 20 /min Torrey Athy PA-C Work Phone: [facility] 05-10-2024 12:44-0500 SaO2% (BldA) [Mass fraction] 100 % Torrey Athy PA-C Work Phone: [facility] 05-10-2024 12:44-0500 Systolic blood pressure 136 mm[Hg] Torrey Athy PA-C Work Phone: [facility] 11-17-2023 18:23-0400 Body mass index (BMI) [Ratio] 35.12 kg/m2 Elaine Praisler-Wood [employer] Work Phone: [facility] 11-17-2023 18:23-0400 Body temperature 99.1 [degF] Elaine Praisler-Wood [employer] Work Phone: [facility] 11-17-2023 18:23-0400 Body weight 87.1 kg Elaine Praisler-Wood [employer] Work Phone: [facility] 11-17-2023 18:23-0400 Diastolic blood pressure 80 mm[Hg] Elaine Praisler-Wood [employer] Work Phone: [facility] 11-17-2023 18:23-0400 Heart rate 98 /min Elaine Praisler-Wood [employer] Work Phone: [facility] 11-17-2023 18:23-0400 Respiratory rate 18 /min Elaine Praanneler-Wood [employer] Work Phone: [facility] 11-17-2023 18:23-0400 SaO2% (BldA) [Mass fraction] 94 % Elaine Praisler-Wood [employer] Work Phone: [facility] 11-17-2023 18:23-0400 Systolic blood pressure 128 mm[Hg] Elaine Praisler-Wood [employer] Work Phone: [facility] 10-21-2023 12:29-0400 Body mass index (BMI) [Ratio] 35.52 kg/m2 Torrey Athy PA-C Work Phone: [facility] 10-21-2023 12:29-0400 Body temperature 98.91 [degF] Torrey Athy PA-C Work Phone: [facility] 10-21-2023 12:29-0400 Body weight 88.1 kg Torrey Athy PA-C Work Phone: [facility] 10-21-2023 12:29-0400 Diastolic blood pressure 82 mm[Hg] Torrey Athy PA-C Work Phone: [facility] 10-21-2023 12:29-0400 Heart rate 80 /min Torrey Athy PA-C Work Phone: [facility] 10-21-2023 12:29-0400 Respiratory rate 18 /min Torrey Athy PA-C Work Phone: [facility] 10-21-2023 12:29-0400 SaO2% (BldA) [Mass fraction] 97 % Torrey Athy PA-C Work Phone: [facility] 10-21-2023 12:29-0400 Systolic blood pressure 132 mm[Hg] Torrey Athy PA-C Work Phone: [facility] 08-28-2023 18:30-0400 Body temperature 96.98 [degF] LENA JIMENEZ MD [facility] 08-28-2023 18:30-0400 Body weight 89.9 kg LENA JIMENEZ MD [facility] 08-28-2023 18:30-0400 Diastolic Blood Pressure Non-Invasive 88 mm[Hg] LENA JIMENEZ MD [facility] 08-28-2023 18:30-0400 Heart rate 73 /min LENA JIMENEZ MD [facility] 08-28-2023 18:30-0400 Respiratory rate 18 /min LENA JIMENEZ MD [facility] 08-28-2023 18:30-0400 Systolic Blood Pressure Non-Invasive 159 mm[Hg] LENA JIMENEZ MD [facility] 08-28-2023 16:43-0400 Body height 157.48 cm [facility] 08-28-2023 16:43-0400 Body temperature 95.6 [degF] [facility] 08-28-2023 16:43-0400 Diastolic blood pressure 83 mm[Hg] [facility] 08-28-2023 16:43-0400 Heart rate 88 /min [facility] 08-28-2023 16:43-0400 Respiratory rate 14 /min [facility] 08-28-2023 16:43-0400 SaO2% (BldA) [Mass fraction] 98 % [facility] 08-28-2023 16:43-0400 Systolic blood pressure 151 mm[Hg] [facility] 05-27-2023 01:48-0500 Heart rate 89 /min [facility] 05-27-2023 01:48-0500 Respiratory rate 18 /min [facility] 05-27-2023 01:48-0500 SaO2% (BldA) [Mass fraction] 97 % [facility] 05-27-2023 01:28-0500 Diastolic blood pressure 79 mm[Hg] [facility] 05-27-2023 01:28-0500 Systolic blood pressure 153 mm[Hg] [facility] 05-26-2023 23:40-0500 Body height 157.48 cm [facility] 05-26-2023 23:40-0500 Body mass index (BMI) [Ratio] 35.1 kg/m2 [facility] 05-26-2023 23:40-0500 Body temperature 97.3 [degF] [facility] 05-26-2023 23:40-0500 Body weight 87.08 kg [facility] 05-21-2023 19:08-0500 Body temperature 96.91 [degF] Rolf Burger MD Work Phone: [facility] 05-21-2023 19:08-0500 Body weight 87.5 kg Rolf Burger MD Work Phone: [facility] 05-21-2023 19:08-0500 Diastolic blood pressure 86 mm[Hg] Rolf Burger MD Work Phone: [facility] 05-21-2023 19:08-0500 Heart rate 92 /min Rolf Burger MD Work Phone: [facility] 05-21-2023 19:08-0500 Respiratory rate 16 /min Rolf Burger MD Work Phone: [facility] 05-21-2023 19:08-0500 SaO2% (BldA) [Mass fraction] 99 % Rolf Burger MD Work Phone: [facility] 05-21-2023 19:08-0500 Systolic blood pressure 136 mm[Hg] Rolf Burger MD Work Phone: [facility] 05-21-2023 13:40-0500 Body temperature 98.71 [degF] Yaakov Richter MD Work Phone: [facility] 05-21-2023 13:40-0500 Body weight 87.36 kg Yaakov Richter MD Work Phone: [facility] 05-21-2023 13:40-0500 Diastolic blood pressure 82 mm[Hg] Yaakov Richter MD Work Phone: [facility] 05-21-2023 13:40-0500 Heart rate 80 /min Yaakov Richter MD Work Phone: [facility] 05-21-2023 13:40-0500 Respiratory rate 18 /min Yaakov Richter MD Work Phone: [facility] 05-21-2023 13:40-0500 SaO2% (BldA) [Mass fraction] 99 % Yaakov Richter MD Work Phone: [facility] 05-21-2023 13:40-0500 Systolic blood pressure 138 mm[Hg] Yaakov Richter MD Work Phone: [facility] 05-07-2023 22:45-0500 Body height 157.5 cm MISHEL MCCRARYT DO [facility] 05-07-2023 22:45-0500 Body temperature 98.42 [degF] MISHEL MCCRARYT DO [facility] 05-07-2023 22:45-0500 Body weight 84 kg MISHEL MCCRARYT DO [facility] 05-07-2023 22:45-0500 Diastolic Blood Pressure Non-Invasive 88 mm[Hg] MISHEL MCCRARYT DO [facility] 05-07-2023 22:45-0500 Heart rate 83 /min MISHEL MCCRARYT DO [facility] 05-07-2023 22:45-0500 Respiratory rate 18 /min MISHEL MCCRARYT DO [facility] 05-07-2023 22:45-0500 Systolic Blood Pressure Non-Invasive 175 mm[Hg] MISHEL FROMMELT DO [facility] 05-16-2022 11:39-0500 Body height 157.5 cm Jennifer Santos MD Work Phone: [facility] 05-16-2022 11:39-0500 Body temperature 97.7 [degF] Jennifer Santos MD Work Phone: [facility] 05-16-2022 11:39-0500 Body weight 83.92 kg Jennifer Santos MD Work Phone: [facility] 05-16-2022 11:39-0500 Diastolic blood pressure 76 mm[Hg] Jennifer Santos MD Work Phone: [facility] 05-16-2022 11:39-0500 Heart rate 81 /min Jennifer Santos MD Work Phone: [facility] 05-16-2022 11:39-0500 Respiratory rate 12 /min Jennifer Santos MD Work Phone: [facility] 05-16-2022 11:39-0500 SaO2% (BldA) [Mass fraction] 96 % Jennifer Santos MD Work Phone: [facility] 05-16-2022 11:39-0500 Systolic blood pressure 124 mm[Hg] Jennifer Santos MD Work Phone: [facility] 03-17-2022 14:42-0400 Body weight 85.73 kg Arpit Beck MD Work Phone: [facility] 03-17-2022 14:42-0400 Diastolic blood pressure 74 mm[Hg] Arpit Beck MD Work Phone: [facility] 03-17-2022 14:42-0400 Heart rate 95 /min Arpit Beck MD Work Phone: [facility] 03-17-2022 14:42-0400 Respiratory rate 16 /min Arpit Beck MD Work Phone: [facility] 03-17-2022 14:42-0400 SaO2% (BldA) [Mass fraction] 98 % Arpit Beck MD Work Phone: [facility] 03-17-2022 14:42-0400 Systolic blood pressure 132 mm[Hg] Arpit Beck MD Work Phone: [facility] 03-03-2022 15:13-0400 Body height 157.5 cm Jennifer Santos MD Work Phone: [facility] 03-03-2022 15:13-0400 Body temperature 99.19 [degF] Jennifer Santos MD Work Phone: [facility] 03-03-2022 15:13-0400 Body weight 85.73 kg Jennifer Santos MD Work Phone: [facility] 03-03-2022 15:13-0400 Diastolic blood pressure 70 mm[Hg] Jennifer Santos MD Work Phone: [facility] 03-03-2022 15:13-0400 Heart rate 90 /min Jennifer Santos MD Work Phone: [facility] 03-03-2022 15:13-0400 Respiratory rate 12 /min Jennifer Santos MD Work Phone: [facility] 03-03-2022 15:13-0400 SaO2% (BldA) [Mass fraction] 95 % Jennifer Santos MD Work Phone: [facility] 03-03-2022 15:13-0400 Systolic blood pressure 126 mm[Hg] Jennifer Santos MD Work Phone: [facility] 03-02-2022 22:56-0400 Diastolic blood pressure 83 mm[Hg] Dr. Jennifer Santos Work Phone: [facility] Work Phone: 03-02-2022 22:56-0400 Heart rate 74 /min Dr. Jennifer Santos Work Phone: [facility] Work Phone: 03-02-2022 22:56-0400 Respiratory rate 16 /min Dr. Jennifer Santos Work Phone: [facility] Work Phone: 03-02-2022 22:56-0400 SaO2% (BldA) [Mass fraction] 98 % Dr. Jennifer Santos Work Phone: [facility] Work Phone: 03-02-2022 22:56-0400 Systolic blood pressure 180 mm[Hg] Dr. Jennifer Santos Work Phone: [facility] Work Phone: 03-02-2022 18:26-0400 Body height 157.[address] Jennifer Santos Work Phone: [facility] Work Phone: 03-02-2022 18:26-0400 Body mass index (BMI) [Ratio] 35.2 kg/m2 Dr. Jennifer Santos Work Phone: [facility] Work Phone: 03-02-2022 18:26-0400 Body temperature 97.8 [degF] Dr. Jennifer Santos Work Phone: [facility] Work Phone: 03-02-2022 18:26-0400 Body weight 87.[address] Jennifer Santos Work Phone: [facility] Work Phone: 02-18-2022 07:12-0400 Body height 160.02 cm [facility] Work Phone: 02-18-2022 07:12-0400 Body mass index (BMI) [Ratio] 33.8 kg/m2 [facility] Work Phone: 02-18-2022 07:12-0400 Body temperature 97.5 [degF] [facility] Work Phone: 02-18-2022 07:12-0400 Body weight 86.63 kg [facility] Work Phone: 02-18-2022 07:12-0400 Diastolic blood pressure 90 mm[Hg] [facility] Work Phone: 02-18-2022 07:12-0400 Heart rate 88 /min [facility] Work Phone: 02-18-2022 07:12-0400 Respiratory rate 18 /min [facility] Work Phone: 02-18-2022 07:12-0400 SaO2% (BldA) [Mass fraction] 99 % [facility] Work Phone: 02-18-2022 07:12-0400 Systolic blood pressure 186 mm[Hg] [facility] Work Phone: 02-07-2022 07:10-0400 Body temperature 98.2 [degF] Torrey Athy PA-C Work Phone: [facility] 02-07-2022 07:10-0400 Body weight 86.73 kg Torrey Athy PA-C Work Phone: [facility] 02-07-2022 07:10-0400 Diastolic blood pressure 76 mm[Hg] Torrey Athy PA-C Work Phone: [facility] 02-07-2022 07:10-0400 Heart rate 94 /min Torrey Athy PA-C Work Phone: [facility] 02-07-2022 07:10-0400 Respiratory rate 18 /min Torrey Athy PA-C Work Phone: [facility] 02-07-2022 07:10-0400 SaO2% (BldA) [Mass fraction] 97 % Torrey Athy PA-C Work Phone: [facility] 02-07-2022 07:10-0400 Systolic blood pressure 142 mm[Hg] Torrey Athy PA-C Work Phone: [facility] 01-25-2022 08:53-0400 Body temperature 96.8 [degF] Zee León APRN[employer] Work Phone: [facility] 01-25-2022 08:53-0400 Body weight 86.82 kg Zee Romelia [employer] Work Phone: [facility] 01-25-2022 08:53-0400 Diastolic blood pressure 102 mm[Hg] Zee Romelia [employer] Work Phone: [facility] 01-25-2022 08:53-0400 Heart rate 93 /min Zee Romelia [employer] Work Phone: [facility] 01-25-2022 08:53-0400 Respiratory rate 21 /min Zee Romelia [employer] Work Phone: [facility] [facility] 01-25-2022 08:53-0400 SaO2% (BldA) [Mass fraction] 96 % Zee Romelia ROLL SCALE MAN.POLICE MAGISTRATE Work Phone: [facility] 01-25-2022 08:53-0400 Systolic blood pressure 160 mm[Hg] Zee Romelia ROLL SCALE MAN.POLICE MAGISTRATE Work Phone: [facility] 12-13-2021 13:19-0400 Body height 157.5 cm Natasha Clanton PA-C Work Phone: [facility] 12-13-2021 13:19-0400 Body temperature 98.01 [degF] Natasha Trevon PA-C Work Phone: [facility] 12-13-2021 13:19-0400 Body weight 87.54 kg Natasha Clanton PA-C Work Phone: [facility] 12-13-2021 13:19-0400 Diastolic blood pressure 68 mm[Hg] Natasha Clanton PA-C Work Phone: [facility] 12-13-2021 13:19-0400 Heart rate 101 /min Natasha Trevon PA-C Work Phone: [facility] 12-13-2021 13:19-0400 SaO2% (BldA) [Mass fraction] 98 % Natasha Trevon PA-C Work Phone: [facility] 12-13-2021 13:19-0400 Systolic blood pressure 112 mm[Hg] Natasha Lester PA-C Work Phone: [facility] 12-03-2021 13:52-0400 Body height 154.9 cm Kodi Muniz MD Work Phone: [facility] 12-03-2021 13:52-0400 Body temperature 98.71 [degF] Kodi Muniz MD Work Phone: [facility] 12-03-2021 13:52-0400 Body weight 86.64 kg Kodi Muniz MD Work Phone: [facility] 12-03-2021 13:52-0400 Diastolic blood pressure 90 mm[Hg] Kodi Muniz MD Work Phone: [facility] 12-03-2021 13:52-0400 Heart rate 98 /min Kodi Muniz MD Work Phone: [facility] 12-03-2021 13:52-0400 SaO2% (BldA) [Mass fraction] 92 % Kodi Muniz MD Work Phone: [facility] 12-03-2021 13:52-0400 Systolic blood pressure 128 mm[Hg] Kodi Muniz MD Work Phone: [facility] 10-28-2021 09:49-0400 Body height 156.2 cm Zofia Donnelly ROLL SCALE MAN.POLICE MAGISTRATE Work Phone: [facility] 10-28-2021 09:49-0400 Body temperature 97.39 [degF] Zofia Donnelly ROLL SCALE MAN.POLICE MAGISTRATE Work Phone: [facility] 10-28-2021 09:49-0400 Body weight 87.77 kg Zofia Donnelly ROLL SCALE MAN.POLICE MAGISTRATE Work Phone: [facility] 10-28-2021 09:49-0400 Diastolic blood pressure 76 mm[Hg] Zofia Donnelly ROLL SCALE MAN.POLICE MAGISTRATE Work Phone: [facility] 10-28-2021 09:49-0400 Heart rate 75 /min Zofia Donnelly ROLL SCALE MAN.POLICE MAGISTRATE Work Phone: [facility] 10-28-2021 09:49-0400 Systolic blood pressure 139 mm[Hg] Zofia Donnelly ROLL SCALE MANJojoPOLICE MAGISTRATE Work Phone: [facility] Encounters Encounter Date Encounter Type Care Provider Facility Start: 04-24-2025 End: 04-24-2025 Emergency department patient visit [facility] Facility:[facility] Start: 04-13-2025 End: 04-13-2025 ambulatory [facility] Facility:[facility] Start: 04-07-2025 ambulatory [facility] Start: 04-07-2025 ambulatory [facility] Start: 04-07-2025 End: 04-07-2025 Evaluation and management of inpatient [facility] Facility:[facility] Start: 04-04-2025 ambulatory [facility] Start: 04-04-2025 Non-patient / Non-visit Dr. Bran gould MD -[facility] Start: 04-04-2025 End: 04-04-2025 Emergency department patient visit Dr. Teodoro Daley MD -Emergency Department Work Phone: Start: 01-03-2025 End: 01-03-2025 Patient encounter procedure [place] [facility] Work Phone: Start: 01-03-2025 End: 01-03-[address] Jennifer Santos MD Work Phone: [facility] Start: 11-29-2024 End: 12-20-2024 Admission to same day surgery center Jennifer Santos MD Work Phone: Ambulatory Surgery Comment on above: NG Tube Replacement (Patient is overdue for colorectal cancer screening since 08/08/2024. Please schedule open access colonoscopy. ) Start: 11-29-2024 End: 12-20-2024 ambulatory Jennifer Santos MD Work Phone: Ambulatory Surgery Start: 09-28-2024 End: 11-28-2024 Follow-up encounter Jennifer Santos MD Work Phone: [facility] [place] Start: 09-22-2024 End: 09-22-2024 ambulatory [facility] Facility:[facility] Start: 09-22-2024 End: 09-22-2024 Subsequent hospital visit by physician Screen Mammo [facility] Comment on above: Encounter for screen ing mammogram for breast cancer [Z12.31] Start: 09-14-2024 End: 09-14-2024 Telephone encounter Jennifer Santos MD Work Phone: [facility] [place] Comment on above: Orders Start: 05-11-2024 End: 05-11-2024 Telephone encounter Torrey Dawson PA-C Work Phone: [facility] Comment on above: Results Start: 05-10-2024 End: 05-10-2024 ambulatory [facility] Facility:[facility] Start: 05-10-2024 End: 05-10-2024 Patient encounter procedure Torrey Dawson PA-C Work Phone: [facility] Comment on above: Acute UTI (Primary D x); Screening for STD (sexually transmitted disease); Vaginal irritation Start: 11-18-2023 Telephone encounter Julietasolitario nunez ROLL SCALE MAN.POLICE MAGISTRATE Work Phone: [facility] Comment on above: Results Start: 11-18-2023 End: 11-18-2023 Subsequent hospital visit by physician Odalys [facility] Sanchez Work Phone: Radiology Comment on above: Acute cough [R05.1] Start: 11-17-2023 End: 11-17-2023 Patient encounter procedure Elaine Lemus APRN.POLICE MAGISTRATE Work Phone: [facility] Comment on above: Sinobronchitis (Prim adeel Dx); Acute cough Start: 10-22-2023 Telephone encounter Cesar ann APRN.POLICE MAGISTRATE Work Phone: [facility] Comment on above: Results Start: 10-21-2023 End: 10-21-2023 Patient encounter procedure Torrey Dawson PA-C Work Phone: [facility] Comment on above: Vaginal itching (Bailee bahman Dx) Start: 09-30-2023 End: 09-30-2023 Subsequent hospital visit by physician Us [facility] 1 Work Phone: Radiology Comment on above: Abnormal mammogram o f left breast [R92.8] Start: 09-07-2023 End: 09-07-2023 Subsequent hospital visit by physician Screen Mammo [facility] Comment on above: ER+ (estrogen recept or positive status) [Z17.0] Start: 09-04-2023 Telephone encounter Ashlyn cancino ROLL SCALE MAN.BAKER SECOND Work Phone: Mammogram Comment on above: Orders Start: 09-01-2023 Telephone encounter Jeninfer elam MD Work Phone: [facility] [place] Comment on above: Orders Start: 08-31-2023 Telephone encounter Zofia torres ROLL SCALE MAN.POLICE MAGISTRATE Work Phone: Hematology/Oncology Start: 08-28-2023 End: 08-28-2023 Emergency department patient visit LENA JIMENEZ MD Facility:[facility] Start: 08-28-2023 End: 08-28-2023 Emergency department patient visit LENA JIMENEZ MD [facility] Start: 08-28-2023 End: 08-28-2023 Emergency department patient visit [facility]-Emergency Department Work Phone: Start: 08-28-2023 End: 08-28-2023 Patient encounter procedure Julieta Oreilly ROLL SCALE MAN.POLICE MAGISTRATE Work Phone: [facility] Comment on above: Blurred vision, righ t eye (Primary Dx) Start: 05-26-2023 End: 05-27-2023 Emergency department patient visit [facility]-Emergency Department Work Phone: Start: 05-21-2023 End: 05-21-2023 Patient encounter procedure Yaakov Richter MD Work Phone: [facility] Comment on above: Lip swelling (Primar y Dx) Angioedema of lips, subsequent encounter (Primary Dx) Start: 05-08-2023 End: 05-08-2023 Emergency department patient visit MISHEL PEREZ DO Facility:[facility] Start: 05-07-2023 End: 05-07-2023 Emergency department patient visit MISHEL PEREZ DO [facility] Start: 11-17-2022 ambulatory Kelly Minaya MA [facility] Comment on above: Population Health Na vigation Outreach ([employer] Gaps ) Start: 09-04-2022 Documentation procedure Mammog day Coordinator [facility] Start: 09-04-2022 Letter encounter Mammography Coordinator [facility] Department Start: 09-04-2022 Telephone encounter Zofia Dyer enter ROLL SCALE MAN.POLICE MAGISTRATE Work Phone: Hematology/Oncology Comment on above: Results Start: 09-03-2022 End: 09-03-2022 Subsequent hospital visit by physician Screen Mammo [facility] Comment on above: 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] Start: 08-18-2022 Telephone encounter Zofia torres ROLL SCALE MAN.POLICE MAGISTRATE Work Phone: Hematology/Oncology Comment on above: Orders (Mammogram Sc reening) Start: 06-11-2022 ambulatory Jennifer Rhodes Work Phone: [facility] [place] Comment on above: Medication Question Start: 05-16-2022 End: 05-16-2022 Patient encounter procedure Jennifer Santos MD Work Phone: [facility] [place] Comment on above: Recurrent deep vein thrombosis (DVT) (HCC) (Primary Dx); Pedal edema; Other acute sinusitis, recurrence not specified Start: 03-17-2022 End: 03-17-2022 Patient encounter procedure Arpit Beck MD Work Phone: [facility] [place] Comment on above: Recurrent deep vein thrombosis (DVT) of lower extremity, unspecified laterality (HCC) (Primary Dx); Allergy to antithrombotic medication Start: 03-17-2022 Telephone encounter Jennifer elam MD Work Phone: [facility] [place] Comment on above: Medication Question Swelling / itching i n left foot Start: 03-15-2022 Refill Jennifer Rhodes Work Phone: [facility] [place] Comment on above: Refill Request Start: 03-03-2022 End: 03-03-2022 Patient encounter procedure Jennifer Santos MD Work Phone: [facility] [place] Comment on above: Anxiety (Primary Dx) ; DVT (deep vein thrombosis) in ; Hyperlipidemia with target low density lipoprotein (LDL) cholesterol less than 130 mg/dL Start: 03-02-2022 End: 03-02-2022 Emergency department [facility] Start: 02-18-2022 Non-patient / Non-visit Dr. Mena Santos Work Phone: [facility] Start: 02-18-2022 End: 02-18-2022 [facility] Start: 02-07-2022 Telephone encounter Torrey TaylorC Work Phone: [facility] Comment on above: Results Start: 02-07-2022 End: 02-07-2022 Patient encounter procedure Torrey Dawson PA-C Work Phone: [facility] Comment on above: Left leg swelling (P rimary Dx) Start: 01-25-2022 End: 01-25-2022 Patient encounter procedure Zee León APRN.CNP Work Phone: [facility] Comment on above: Urinary frequency (P rimary Dx); Elevated blood pressure reading without diagnosis of hypertension; Acute vaginitis Start: 12-13-2021 End: 12-13-2021 Patient encounter procedure Natasha SANTANAC Work Phone: General Surgery Comment on above: Axillary abscess (Pr imary Dx) Start: 12-03-2021 End: 12-03-2021 Patient encounter procedure Kodi Muniz MD Work Phone: General Surgery Comment on above: Cutaneous abscess of right axilla (Primary Dx) Start: 11-06-2021 Telephone encounter Kailyn Doup RN He matology/Oncology Comment on above: 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 (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 ) Start: 10-28-2021 End: 10-28-2021 ambulatory Zofia Donnelly APRN.CNP Work Phone: Hematology/Oncology Comment on above: 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) (Primary Dx); Cellulitis of axillary region Start: 10-28-2021 End: 10-28-2021 Patient encounter procedure Zofia Donnelly APRN.POLICE MAGISTRATE Work Phone: [facility] Start: 09-02-2021 End: 09-02-2021 Subsequent hospital visit by physician Screen Mammo [facility] Comment on above: 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 Jennifer Santos MD Work Phone: Start: 04-07-2025 Urnls dip stick/tabl et reagent auto microscopy Dr. Jennifer Santos MD Work Phone: Start: 04-07-[address] Jennifer Santos MD Work Phone: Start: 04-04-[address] Jennifer Santos MD Work Phone: Start: 05-10-2024 Urnls dip stick/tabl et rgnt auto w/o microscopy Torrey Dawson PA-C Work Phone: Start: 11-18-2023 Radiologic exam ches t 2 views Elaine Lemus APRN.POLICE MAGISTRATE Work Phone: Start: 10-21-2023 BACTERIAL VAGINOSIS NAAT Torrey Dawson PA-C Work Phone: Start: 10-21-2023 Iadna trichomonas va ginalis amplified probe tech Torrey Dawson PA-C Work Phone: Start: 10-21-2023 Urnls dip stick/tabl et rgnt auto w/o microscopy Torrey Dawson PA-C Work Phone: Start: 09-30-2023 Us breast uni real t joi with image limited Ashlyn Roger ROLL SCALE MAN.BAKER SECOND Work Phone: Start: 09-30-2023 Digital breast tomosynthesis unilateral Ashlyn Roger ROLL SCALE MAN.BAKER SECOND Work Phone: Start: 09-03-2022 BARBARA SCREENING W EL Da elliotzac DyerDonnelly ROLL SCALE MAN.POLICE MAGISTRATE Work Phone: Start: 09-03-2022 Mammography Zofia torres ROLL SCALE MAN.POLICE MAGISTRATE Work Phone: Start: 01-25-2022 Urnls dip stick/tabl et rgnt auto w/o microscopy Zee León ROLL SCALE MAN.POLICE MAGISTRATE Work Phone: Start: 10-28-2021 Adult depression scr eening assessment Zofia Donnelly ROLL SCALE MAN.POLICE MAGISTRATE Work Phone: Start: 09-02-2021 End: 09-02-2021 Screening mammography bi 2-view breast inc cad Zofia Donnelly ROLL SCALE MAN.POLICE MAGISTRATE Work Phone: Start: 09-06-2020 Adult depression scr eening assessment Screen [facility] Start: 08-23-2018 Lipid 1996 panel - S daniel or Plasma Screen [facility] Start: 08-08-2014 Colonoscopy Screen Wst r Plan of Treatment Date Care Activity Detail Author Start: 05-22-2026 Diabetes Screening Diabetes Screenin g [facility] Start: 09-22-2025 Screening for malign ant neoplasm of breast Mammogram Screening [facility] Start: 04-07-2025 Patient discharge [facility] Start: 04-07-2025 Non-patient / Non-visit Non-patient / Non-visit -[facility] Start: 04-07-2025 MRI of brain without contrast Brain without Contrast [facility] Start: 04-07-2025 Following clinical pathway protocol [facility] Start: 04-07-2025 Cardiac monitoring [facility] Start: 04-07-2025 Catheterization of vein [facility] Start: 04-07-2025 Consultation [facility] Start: 04-07-2025 Continuous pulse oximetry [facility] Start: 04-07-2025 Elevation of head of bed [facility] Start: 04-07-2025 Exercises [facility] Start: 04-07-2025 Notification of physician [facility] Start: 04-07-2025 Oxygen therapy [facility] Start: 04-07-2025 Patient referral to dietitian [facility] Start: 04-07-2025 Referral for physica l therapy [facility] Start: 04-07-2025 Referral to occupati onal therapist [facility] Start: 04-07-2025 Referral to service [facility] Start: 04-07-2025 Speech therapy assessment [facility] Start: 04-07-2025 Telemedicine consult ation with patient [facility] Start: 04-07-2025 Tobacco use cessatio n education [facility] Start: 04-07-2025 End: 04-07-2025 [facility] Start: 04-07-2025 Vital signs measurements [facility] Start: 04-07-2025 Admission procedure [facility] Start: 04-07-2025 End: 04-07-2025 Evaluation and management of inpatient Confusion -Progressive Care Unit Work Phone: Start: 04-07-2025 CT angiography of he ad and neck CTA Head AND Neck W/ Contrast [facility] Start: 04-07-2025 CT of head without contrast Brain/Head without Contrast [facility] Start: 04-07-2025 [facility] Start: 04-04-2025 Emergency department visit moderate severity EMERGENCY DEPT VISIT LOW MDM [facility] Start: 04-04-2025 [facility] Start: 2025 RSV Vaccine (1 - 1-d ose 75+ series) RSV Vaccine (1 - 1-dose 75+ series) [facility] Start: 02-13-2025 Influenza vaccination [facility] Start: 09-22-2024 End: 09-22-2024 Patient encounter procedure 09/22/2024 9:50 AM EDT Appointment Mammogram [address] [place] [address] yearly mammogram with el Mammogram Comment on above: yearly mammogram wit h el Start: 09-06-2024 Screening for malign ant neoplasm of breast Mammogram Screening [facility] Start: 08-08-2024 Colonoscopy COLONOSCOPY [facility] Start: 08-08-2024 COLORECTAL CANCER SCREENING COLORECTAL CANCER SCREENING [facility] Start: 08-08-2024 Screening for malign ant neoplasm of colon [facility] Start: 06-15-2024 Advance Directive Discussion Advance Directive Discussion [facility] Start: 06-15-2024 Medicare Advantage A nnual Wellness Visit Medicare Advantage Annual Wellness Visit [facility] Start: 02-14-2024 Covid-19 Vaccine () Covid-19 Vaccine () [facility] Start: 02-14-2024 Influenza vaccination [facility] Start: 09-04-2023 Mammography [facility] Start: 09-04-2023 Screening for malign ant neoplasm of breast Mammogram Screening [facility] Start: 08-24-2023 Lipid 1996 panel - S daniel or Plasma Lipid Screening [facility] Start: 08-24-2023 Lipid panel Lipid Screening [facility] Start: 08-24-2023 LIPID SCREEN LIPID SCREEN [facility] Start: 06-15-2023 Advance Directive Discussion Advance Directive Discussion [facility] Start: 06-15-2023 Behavioral Health Screening Behavioral Health Screening [facility] Start: 06-15-2023 Depression Assessment Depression Ass essment [facility] Start: 05-27-2023 [facility] Start: 05-21-2023 End: 08-20-2023 Comprehensive metabolic 2000 panel - Serum or Plasma COMP METABOLIC PANEL Lab Routine Angioedema of lips, subsequent encounter Expected: 05/21/2023, Expires: 08/20/2023 [facility] Work Phone: Comment on above: Expected: 05/21/2023 , Expires: 08/20/2023 Start: 05-04-2023 Urine microalbumin profile DTaP,Tdap,Td Vaccine (1 - Tdap) [facility] Start: 02-13-2023 Covid-19 Vaccine () Covid-19 Vaccine () [facility] Start: 02-13-2023 Influenza vaccination [facility] Start: 10-28-2022 Adult depression screening assessment DEPRESSION SCREENING [facility] Start: 09-02-2022 Mammography MAMMOGRAM [facility] Start: 06-15-2022 ADVANCE DIRECTIVE DISCUSSION ADVANCE DIRECTIVE DISCUSSION [facility] Start: 06-15-2022 DEPRESSION ASSESSMENT DEPRESSION ASS ESSMENT [facility] Start: 03-03-2022 End: 05-03-2022 Basic metabolic 2000 panel - Serum or Plasma BASIC METABOLIC PNL Lab Routine Hyperlipidemia with target low density lipoprotein (LDL) cholesterol less than 130 mg/dL Expected: 03/03/2022, Expires: 05/03/2022 [facility] Work Phone: Comment on above: Expected: 03/03/2022 , Expires: 05/03/2022 Start: 03-03-2022 End: 05-03-2022 CBC W Auto Differential panel - Blood CBC + DIFF Lab Routine DVT (deep vein thrombosis) in Expected: 03/03/2022, Expires: 05/03/2022 [facility] Work Phone: Comment on above: Expected: 03/03/2022 , Expires: 05/03/2022 Start: 03-03-2022 End: 05-03-2022 Lipid 1996 panel - Serum or Plasma LIPID PANEL BASIC Lab Routine Hyperlipidemia with target low density lipoprotein (LDL) cholesterol less than 130 mg/dL Expected: 03/03/2022, Expires: 05/03/2022 [facility] Work Phone: Comment on above: Expected: 03/03/2022 , Expires: 05/03/2022 Start: 02-13-2022 Influenza vaccination INFLUENZA (#1) [facility] Start: 09-06-2021 Adult depression screening assessment DEPRESSION SCREENING [facility] Start: 08-23-2021 DIABETES SCREEN DIABETES SCREEN [facility] Start: 08-23-2021 Diabetes Screening Diabetes Screenin g [facility] Start: 08-03-2021 COVID-19 VACCINE (4 - Booster for Pfizer series) COVID-19 VACCINE (4 - Booster for Pfizer series) [facility] Start: 06-15-2021 ADVANCE DIRECTIVE DISCUSSION ADVANCE DIRECTIVE DISCUSSION [facility] Start: 06-15-2021 DEPRESSION ASSESSMENT DEPRESSION ASS ESSMENT [facility] Start: 05-28-2021 COVID-19 VACCINE (4 - Booster for Pfizer series) COVID-19 VACCINE (4 - Booster for Pfizer series) [facility] Start: 05-28-2021 COVID-19 VACCINE (4 - Pfizer series) COVID-19 VACCINE (4 - Pfizer series) [facility] Start: 07-13-2015 FECAL OCCULT BLOOD FECAL OCCULT BLOO D [facility] Start: 07-13-2015 Screening for malign ant neoplasm of colon Fecal Occult Blood [facility] Start: 2010 RSV Vaccine (1 - 1-d ose 60+ series) RSV Vaccine (1 - 1-dose 60+ series) [facility] Start: 02-21-2000 SHINGRIX VACCINE (1 of 2) FERRELL GRIX VACCINE (1 of 2) [facility] Start: 1995 COLOGUARD (FIT-DNA) COLOGUARD (FIT-D NA) [facility] Start: [address] COLONOGRAPHY [facility] Start: 1995 Screening for malign ant neoplasm of colon [facility] Start: 1995 SIGMOIDOSCOPY SIGMOIDOSCOPY [facility] Start: 1969 SHINGRIX VACCINE (1 of 2) FERRELL GRIX VACCINE (1 of 2) [facility] Start: 1969 Urine microalbumin profile [facility] Start: 02-21-1968 Depression Screening Depression Scre ening [facility] Start: 02-21-1968 HEPATITIS C SCREENING HEPATITIS C [facility] Start: 02-21-1968 Hepatitis C screening Hepatitis C [facility] Bacteria identified in Urine by Culture URINE CULTURE Microbiology Routine Urinary frequency Ordered: 01/25/2022 [facility] Work Phone: Comment on above: Ordered: 01/25/2022 Bacteria identified in Urine by Culture URINE CULTURE Microbiology Routine Acute UTI Ordered: 05/10/2024 [facility] Work Phone: Comment on above: Ordered: 05/10/2024 BACTERIAL VAGINOSIS AMPLIFICATION BACTERIAL VAGINOSIS AMPLIFICATION Lab Routine Acute vaginitis Ordered: 01/25/2022 [facility] Work Phone: Comment on above: Ordered: 01/25/2022 BACTERIAL VAGINOSIS NAAT BACTERI AL VAGINOSIS NAAT Lab Routine Screening for STD (sexually transmitted disease) 05/10/2024 1:17 PM [facility] ALBA / TRICHOMONA S AMPLIFICATION ALBA / TRICHOMONAS AMPLIFICATION Lab Routine Acute vaginitis Ordered: 01/25/2022 [facility] Work Phone: Comment on above: Ordered: 01/25/2022 ALBA/TRICHOMONAS NAAT ALBA /TRICHOMONAS NAAT Lab Routine Screening for STD (sexually transmitted disease) 05/10/2024 1:17 PM [facility] Chlamydia trachomatis+Neisseria gonorrhoeae DNA [Presence] in Unspecified specimen by RADHA with probe detection GONORRHEA/CHLAMYDIA NAAT Lab Routine Screening for STD (sexually transmitted disease) 05/10/2024 1:17 PM [facility] Comprehensive metabo lic 2000 panel - Serum or Plasma COMP METABOLIC PANEL Lab Routine Angioedema of lips, subsequent encounter 05/22/2023 10:39 AM EST [facility] Work Phone: End: 09-30-2024 DBT Breast - bilateral screening [facility]BAR[facility] SCREENING [facility] Radiology Routine ER+ (estrogen receptor positive status) Encounter for screening mammogram for breast cancer 1 Occurrences starting 09/01/2023 until 09/30/2024 [facility] Work Phone: Comment on above: 1 Occurrences starti ng 09/01/2023 until 09/30/2024 DBT Breast - bilater al screening [facility]BAR[facility] SCREENING [facility] Radiology Routine ER+ (estrogen receptor positive status) Encounter for screening mammogram for breast cancer 09/07/2023 2:25 PM EDT [facility] Work Phone: End: 10-14-2025 DBT Breast - bilateral screening [facility]BAR[facility]CRE[facility] Radiology Routine Encounter for screening mammogram for breast cancer 1 Occurrences starting 09/14/2024 until 10/14/2025 [facility] Work Phone: Comment on above: 1 Occurrences starti ng 09/14/2024 until 10/14/2025 DBT Breast - bilater al screening [facility]BAR[facility]CRE[facility] Radiology Routine Encounter for screening mammogram for breast cancer 09/22/2024 9:57 AM EDT [facility] Work Phone: Patient Education [facility] Work Phone: Patient referral [facility] Work Phone: End: 12-16-2024 XR Chest PA and Lateral XR CHEST 2V FRONTAL/LAT Radiology STAT Acute cough 1 Occurrences starting 11/17/2023 until 12/16/2024 [facility] Work Phone: Comment on above: 1 Occurrences starti ng 11/17/2023 until 12/16/2024 [facility] Immunizations Immunization Date Immunization Notes Care Provider [facility] 05-03-2023 tetanus and diphther ia toxoids, adsorbed, preservative free, for adult use (5 Lf of tetanus toxoid and 2 Lf of diphtheria toxoid) Yaakov Richter MD Work Phone: [facility] 04-02-2021 COVID-19 vaccine, ag e 12+ yr (PFIZER-BIONTECH - PURPLE TOP) Screen [facility] 04-02-2021 influenza (aIIV4) vaccine, age 65+ yr, quadrivalent, PF (FLUAD QUAD) Yaakov Richter MD Work Phone: [facility] 04-02-2021 influenza, seasonal, injectable Screen [facility] 04-02-2021 influenza virus vacc ine, unspecified formulation Screen [facility] 09-13-2020 Covid (Pfizer) [facility] 08-23-2020 COVID-19 vaccine, ag e 12+ yr (PFIZER-BIONTECH - PURPLE TOP) Screen [facility] 02-28-2020 influenza, high-dose , quadrivalent vaccine (FLUZONE HIGH DOSE QUADRIVALENT) Screen [facility] 02-28-2020 pneumococcal polysaccharide vaccine, 23 valent Screen [facility] 03-28-2019 influenza, high dose seasonal, preservative-free Screen [facility] 04-18-2017 influenza, seasonal, injectable Screen [facility] 03-18-2016 influenza, high dose seasonal, preservative-free Screen [facility] 04-06-2015 influenza, high dose seasonal, preservative-free Screen [facility] 04-06-2015 pneumococcal conjuga te vaccine, 13 valent Screen [facility] Payers Date Payer Category Payer Self-pay [id number] 2023 Private Health Insurance [id number] 2021 Medicare HUMANA MEDICARE HUMANA MEDICARE PPO [id number] 2021-Present [phone] [address] [place] [address] PPO [id number] 2021 Medicare HUMANA MEDICARE HUMANA MEDICARE PPO [id number] 2021-Present [phone] [place] [address] PPO [id number] 2021 Medicare (Managed Care) HUMANA M EDICARE [id number] 2021 Private Health Insurance [id number] 2014 Medicaid MEDICAID [id number] 1950 Unknown [id number] 1950 Unknown [id number] Medicare MEDICARE PART A B [id number] Unknown [id number] Unknown [id number] Unknown [id number] Unknown [id number] Unknown [id number] Unknown [id number] Unknown [id number] Social History Date Type Detail Facility Start: 08-27-2012 End: 08-28-2023 Tobacco smoking status NHIS Never smoked tobacco [facility] Work Phone: Start: 07-29-2021 End: 05-10-2024 Alcohol intake Current non-drinker of alcohol (finding) [facility] Start: 1950 Sex Assigned At Not on file [facility] Start: 08-23-2021 End: 05-16-2022 Exposure to SARS-CoV-2 (event) Not sure [facility] Start: 08-27-2012 End: 02-07-2022 Tobacco use and exposure Smokeless tobacco non-user [facility] Start: 02-18-2022 End: 04-07-2025 Tobacco smoking status KYIS Unknown if ever smoked [facility] Start: 01-23-2020 None [facility] Start: 01-23-2020 Alone [facility] Start: 1950 Sex Assigned At Female [facility] Start: 02-21-2022 End: 03-03-2022 Exposure to SARS-CoV-2 (event) Yes [facility] Work Phone: Start: 11-26-2022 End: 09-07-2023 History of Social function [facility] Work Phone: Start: 11-26-2022 End: 09-07-2023 Tobacco use panel [facility] Work Phone: Adult Depression Screening Assessment 6 [facility] Work Phone: Goals Date Patient Goal Desired Activity /State Functional Status Date Assessment Result Facility 04-07-2025 Functional status Standby Assist [facility] Work Phone: 08-28-2023 Functional Status ID band on, Call device within reach, Bed in low position, Wheels locked, Safety level maintained [facility] 05-07-2023 Functional Status Resting [facility] 09-16-2018 Are you deaf, or do you have serious difficulty hearing No 09/16/2018 5:47 PM RONALDT Xavier Poon III, MD No [facility] 09-16-2018 Are you blind, or do you have serious difficulty seeing, even when wearing glasses No 09/16/2018 5:47 PM Xavier Sauceda III, MD No [facility] 09-16-2018 Do you have serious difficulty walking or climbing stairs No 09/16/2018 5:47 PM Xavier Sauceda III, MD No [facility] 09-16-2018 Do you have difficul ty dressing or bathing No 09/16/2018 5:47 PM Xavier Sauceda III, MD No [facility] 09-16-2018 Because of a physica l, mental, or emotional condition, do you have difficulty doing errands alone such as visiting a physician's office or shopping No 09/16/2018 5:47 PM Xavier Sauceda III, MD No [facility] Mental Status Date Assessment Result Facility 04-07-2025 Cognitive function Voice/Name [facility] Work Phone: 08-28-2023 Mental Status Oriented x 4 [facility] 05-07-2023 Mental Status Oriented x 4 [facility] 09-16-2018 Because of a physica l, mental, or emotional condition, do you have serious difficulty concentrating, remembering, or making decisions No 09/16/2018 5:47 PM EDT Xavier Poon III, MD No [facility] Clinical Notes 08-09-2014 to 04-13-2025 Note Date & Type Note Facility 04-13-2025 Note HNO ID: [id number] Author: KELLE PETER APRN.POLICE MAGISTRATE Service: ? Author Type: Nurse Practitioner Type: Progress Notes Filed: 04/17/2025 08:20 Note Text: CC: Patient presents with: Recheck: [facility] ER follow up, DVT in leg HPI Ilene Shaw is a 75 year old female who presents today for follow up. Recording using [employer] software for draft documentation of the visit was discussed with the patient/authorized representative government relations; all questions welcomed and answered. Patient/authorized representative government relations agreed to proceed Ilene is a 75-year-old female with a history of blood clots, presenting for evaluation of dizziness and recent ER visits. Blood Clots: - Recent blood clot in left inner thigh, noted for warmth and swelling. - First ER visit on 03/05 for blood clot; started on Eliquis. - Second ER visit the next day due to dizziness; admitted for two nights. - CT head and neck, MRI brain negative; neurology consult via telemedicine. - Discharged on 03/08 with new cholesterol medication and baby aspirin. - Currently on reduced dose of Eliquis - Previous blood clot years ago; not on daily preventative medication at that time. Dizziness: - Onset immediately after starting Eliquis on 03/05. - Describes sensation as "the world was spinning around." - Dizziness persists, described as feeling "off." - No associated headaches, confusion, vision changes, or ear pain. - No dizziness while hospitalized and not taking Eliquis. - Recent mechanical fall out of bed while reaching for phone; denies head injury. Diarrhea: - Onset after starting Eliquis; described as loose stools. - Frequency of 2-3 times per day; improving with more solid stools recently. - Denies hematochezia, melena, nausea, or emesis. REVIEW OF SYSTEMS See HPI PAST MEDICAL HISTORY Diagnosis Date Adjustment disorder [...] Eliquis [Apixaban], Ampicillin, and Xarelto [Rivaroxaban] MEDICATIONS atorvastatin (LIPITOR) 40 mg tablet Take 40 mg by mouth daily at bedtime. ELIQUIS DVT-PE TREAT 30D START 5 mg (74 tabs) Take 5 mg by mouth once daily. aspirin (ASPIR-81 ORAL) Take 81 mg by mouth once daily. escitalopram oxalate (LEXAPRO) 10 mg tablet Take 10 mg by mouth once daily. ALPRAZolam (XANAX) 0.25 mg tablet Take 1 tablet by mouth once daily. FAMILY HISTORY Problem Relation Age of Onset Heart Mother Cancer Father LEUKEMIA Diabetes Father other (dementia) Sister Diabetes Daughter other (neuropathy) Daughter SOCIAL HISTORY[1] PHYSICAL EXAM BP 130/80 Pulse 77 Resp 16 Wt 88.9 kg (196 lb) SpO2 99% BMI 35.85 kg/m? General Appearance: well appearing, in no acute distress, alert Eyes: PERRLA, EOM's intact, conjunctiva pink and moist, no icterus, sclera white, non-injected Lungs: Lungs clear to auscultation. No wheezing, rhonchi, rales. Heart: RRR without murmur, gallop, or rubs. No ectopy Health maintenance reviewed with patient: Depression Screening Never done Hepatitis C Screening Never done Shingrix Vaccine(1 of 2) Never done DTaP,Tdap,Td Vaccine(1 - Tdap) due on 05/04/2023 Lipid Screening due on 08/24/2023 Advance Directive Discussion Never done Medicare Advantage Annual Wellness Visit Never done Colorectal Cancer Screening due on 08/08/2024 Influenza Vaccine(1) due on 02/13/2025 Covid-19 Vaccine( - 2024- season) due on 02/13/2025 RSV Vaccine(1 - 1-dose 75+ series) Never done Diabetes Screening due on 05/22/2026 Bone Density Screening Completed Pneumococcal Vaccine: 50+ Completed Mammogram Screening Discontinued DATA REVIEWED: Outside chart from [facility] reviewed. Assessment/Plan 1. Acute embolism and thrombosis of deep vein of left lower extremity (HCC) (I82.402) 2. Dizziness and giddiness (R42) - Recent DVT of left inner thigh diagnosed on ; started on Eliquis with subsequent dizziness. - Dizziness began within an hour of Eliquis administration; no dizziness during hospitalization when Eliquis was withheld. - Reviewed ER records: CT head/neck showed no occlusion; MRI brain negative; blood counts and kidney function st (more content not included)... [facility] 04-07-2025 Note [facility] Medical Records Department [address] [place] [address] Discharge Summary 04/07/25 1616 MR#: [id number] Acct: [id number] Name: ILENE SHAW Rep #: [id number] : 1950 75 From: Bran Courtney DO PCP: Dr. Jennifer Santos MD Status:ADM IN [id number] Providers Date of Admission: 04/07/25 Primary Care Physician: Dr. Jennifer Santos MD Consultations 04/07/25 04:02 Consult: Tele-Neurology Routine Consulting Provider: [facility] Reason for Consult: Acute Ischemic Stroke/TIA EMERGENT Consult: No MD Notified: Yes Date Notified: 04/07/25 Time Notified: 03:40 Method of Notification: ED Physician Initiated Comments:: called routine teleneuro follow up 04/07/25 @ 0511 Nursing Unit Staff Notify [facility] of Tele-Neurology Consult: Yes Reason For Visit: CVA; WITH MILD EXPRESSIVE APHASIA, CONFUSION, Diagnosis Discharge Diagnosis (1) Stroke due to stenosis of right posterior cerebral artery: Status: Acute Code(s): I63.531 - Cerebral infarction due to unspecified occlusion or stenosis of right posterior cerebral artery (2) Expressive aphasia: Status: Acute Code(s): R47.01 - Aphasia (3) Vertigo, central: Status: Acute Code(s): H81.4 - Vertigo of central origin (4) Confusion: Status: Acute Code(s): R41.0 - Disorientation, unspecified (5) Acute deep vein thrombosis (DVT) of left lower extremity: Status: Acute Code(s): I82.402 - Acute embolism and thrombosis of unspecified deep veins of left lower extremity Qualifiers: Affected thrombotic vein of extremity: unspecified vein of extremity Qualified Code(s): I 82.402 - Acute embolism and thrombosis of unspecified deep veins of left lower extremity (6) Uncontrolled hypertension: Status: Acute Code(s): I10 - Essential (primary) hypertension (7) Obesity (BMI 30-39.9): Status: Acute Code(s): E66.9 - Obesity, unspecified (8) Depression with anxiety: Status: Acute Code(s): F41.8 - Other specified anxiety disorders Plan CVA * with mild Expressive Aphasia, Confusion and Vertigo * CT scan of the head and neck with IV contrast that showed relatively attenuated Right posterior cerebral artery showing multifocal mild moderately stenotic plaques with no occlusion, aneurysmal dilatation or dissecting intimal flaps * MRI of the brain negative.. Check echocardiogram. * ASA and add statin. * Give meclizine prn for vertigo. * [facility] consultation Hypertensive urgency * 215/103 mmHg on admission. * PRN hydralazine * resolved Chronic medical conditions: * History of recently diagnosed unprovoked recurrent LLE DVT; on apixaban. Hold apixaban as per neurologist's recommendations. * Obesity (class II); with BMI of 35.1 Weight loss will be recommended. * Depression with anxiety; on escitalopram and alprazolam * History of Right breast cancer; s/p lumpectomy and currently in remission * History of endometriosis; s/p hysterectomy * History of adult-onset Still's disease - Stable with no evidence of flare at this time. * History of recurrent angioedema of the tongue; DVT prophylaxis - Patient has recently diagnosed LLE DVT but her apixaban has been held as per neurologist's recommendations. Restart DOAC when/if okay with neurology. Medications at Discharge Home Medications alprazolam 0.25 mg tablet 0.25 mg PO TID PRN PRN Insomnia 08/16/14 escitalopram oxalate 10 mg tablet 10 mg PO QHS anxiety 08/16/14 apixaban 5 mg (74 tabs) tablets in a dose pack (Vacation View DVT-PE Treat 30D Start) See Rx Instructions .Route .COMPLEX #74 tabs 04/04/25 atorvastatin 40 mg tablet 40 mg PO QHS #30 tabs 04/07/25 meclizine 12.5 mg tablet 12.5 mg PO TID PRN dizziness #14 tabs 04/07/25 Hospital Course Operations None Procedures 2-D Echocardiogram Summary of Care Provided Hospital Course: Greater than 30 minutes spent on discharge patient presented with dizziness. It was transient. She was concerned that it may have been due to her medication (apixaban). She underwent an MRI of the brain that was negative. Nursing reported that the dizziness was shortly after a BM. The etiology of the dizziness was likely either due to BPPV (seems more likely as she had a room spinning sensation) v vasovagal. I told her that it was unlikely due to apixaban. Weight / BMI Weight Weight: 87.3 kg Body Mass Index (BMI) 35.2 ABG / Lab / Microbiology Data 04/07/25 00:15 04/07/25 00:15 Laboratory: Laboratory Results - last 24 hr 04/07/25 00:15: WBC 8.5, RBC 4.44, Hgb 13.8, Hct 40.6, MCV 91.4, MCH 31.1, MCHC 34.0, RDW Std Deviation 44.1 H, RDW Coeff of Funmi 13.1, Plt Count 273, MPV 11.9, Immature Gran % (Auto) 0.200, Neut % (Auto) 59.7, Lymph % (Auto) 25.2, [place] % (Auto) 6.5, Eos % (Auto) 7.8 H, Baso % (Auto) 0.6, Absolute Neuts (auto) 5.1, Absolute Lymphs (auto) (more content not included)... [facility] 04-04-2025 Discharge summary Note Date/Time April 04, 2025 1:48pm [facility] Medical Records Department [address] [place] [address] Emergency Department Summary 04/04/25 MR#: [id number] Acct: [id number] Name: ILENE SHAW Rep #:[id number] : 1950 75 From: Teodoro Daley MD [...] that extremity. Prior similar symptoms: No Recent Illness/Hospitalization: No PFSH PFSH Medical History Vaginal candidiasis Acute bronchitis, unspecified Kidney stones Pulmonary embolism Adult-onset Still's disease Depression Anxiety Breast cancer Endometriosis Bowel obstruction Home Medications ?Medication ?Instructions ?Recorded ?Last Taken ?Type alprazolam 0.25 mg tablet 0.25 mg PO TID PRN PRN Insom desmond 08/16/14 Unknown History escitalopram oxalate 10 mg tablet 10 mg PO DAILY 08/16 Unknown History aspirin 81 mg tablet,delayed 81 mg PO DAILY 08/28/23 U nknown History release (Adult Low Dose Aspirin) doxycycline monohydrate 100 mg 100 mg PO BID #20 caps 01/03/25 Unknown Rx capsule fluconazole 200 mg tablet 200 mg PO DAILY #1 TAB 01/03 Unknown Rx apixaban 5 mg (74 tabs) tablets in See Rx Instructions .Route 04/04/25 Unknown Rx a dose pack (Eliquis DVT-PE [...] Cardiovascular: Denies chest pain, orthopnea, palpitations, paroxysmal nocturnaldyspnea or racing heartbeat Respiratory/Chest Respiratory/Chest: Denies cough, dyspnea, dyspnea on exertion, orthopnea or paroxysmal nocturnal dyspnea Neurologic Neurologic: Denies paresthesias or weakness Hematologic/Lymphatic Hematologic/Lymphatic: Denies easy bleeding, easy bruising or lymphadenopathy [...] blood work to assess renal function since thiswould potentially affect what medication she can be treated with and the dose. Lab Data Attestation: I reviewed the patient's lab results. Lab results narrative: CBC is unremarkable. Basic metabolic panel is unremarkable. Labs: Laboratory Results - last 24 hr 04/04/25 11:12 WBC 8.0 RBC 4.30 Hgb 13.6 Hct 39.9 MCV 92.8 MCH 31.6 MCHC 34.1 RDW Std Deviation 44.3 H RDW Coeff of Funmi 13.1 Plt Count 230 MPV 11.9 Immature Gran % (Auto) 0.500 Neut % (Auto) 72.5 H Lymph % (Auto) 14.8 L [place] % (Auto) 5.3 Eos % (Auto) 6.3 H Baso % (Auto) 0.6 Absolute Neuts (auto) 5.8 Absolute Lymphs (auto) 1.18 Nucleated RBC % 0 Sodium 143 Potassium 3.8 Chloride 109 H Carbon Dioxide 24.5 Anion Gap 9 BUN 7 Creatinine 0.91 Estim Creat Clear Calc 56.35 Est GFR (MDRD) Non-Af 66 BUN/Creatinine Ratio 7.8 L Glucose 99 Calcium 8.9 Treatment and Re-Evaluation :: Patient has a clot left greater saphenous vein and is within 2 cm of the origin of the superficial femoral vein on the left. In light of this we will anticoagulate. Patient was explained risk benefits of Coumadin versus Eliquis versus Xarelto. After explaining her risk benefits and differences between the different anticoagulants patient chose Eliquis. She was started on Eliquis 10 mg and given a starter pack prescription. She was instructed follow-up with [facility] since she will need to be on the medicine for 3 to 6 months. Discharge Plan Triage Chief Complaint: Lower Extremity Injury ED Provider: Teodoro Daley Dx/Rx/DC Orders Clinical Impression: Acute deep vein thrombosis (DVT) of left lower extremity, Superficial thrombophlebitis of great saphenous vein, Elevated blood pressure reading without diagnosis of hypertension Instructions: DVT Dc, ED Hypertension, To Be Confirmed Prescriptions: New Eliquis DVT-PE Treat 30D Start 5 mg (74 tabs) Tablets,Dose Pack See Rx Instructions .ROUTE .COMPLEX Qty: 74 0RF Rx Instructions: orally per package directions No Action doxycycline monohydrate 100 mg capsule 100 mg PO BID Qty: 20 0RF fluconazole 200 mg tablet 200 mg PO DAILY Qty: 1 0RF Rx Instructions: please remind pt to NOT take Alprazolam while on this medication alprazolam 0.25 MG tablet 0.25 mg PO TID PRN PRN (Reason: Insomnia) escitalopram oxalate 10 MG tablet 10 mg PO DAILY aspirin [Adult Low Dose Aspirin] 81 mg tablet,delayed release (DR/EC) 81 mg PO DAILY Primary Care Provider: Jennifer Santos Referrals: Jennifer Santos MD [Primary Care Provider, Internal Medicine] - 1-2 Weeks Activity Restrictions/Additional Instructions: You will need to follow-up with Dr. Argueta for additional prescription of Eliquis. You also need to have your blood pressure checked since it was elevated in the emergency department. Print Language: Marshallese Disposition Disposition: Home, Self Care What to do if you have Problems For any increased pain, shortness of breath, bleeding, nausea or vomiting, chestpain, or any unexpected problems, contact your Primary Care Provider. Call [facility] ([phone]) or report to the closest Emergency Room. Call 911 if necessary. 04/04/25 1248 <Electronically signed by Teodoro Daley MD> Cosigner Signature (if applicable): CC: Dr. Jennifer Santos MD ~ Signed [facility] Work Phone: 1(690) 466-261710-21-2025 Discharge summary [facility] Medical Records Department [address] [place] [address] Emergency Department Summary 04/04/25 MR#: [id number] Acct: [id number] Name: ILENE SHAW Rep #:[id number] : 1950 75 From: Teodoro Daley MD [...] that extremity. Prior similar symptoms: No Recent Illness/Hospitalization: No PFSH PFS Medical History Vaginal candidiasis Acute bronchitis, unspecified Kidney stones Pulmonary embolism Adult-onset Still's disease Depression Anxiety Breast cancer Endometriosis Bowel obstruction Home Medications ?Medication ?Instructions ?Recorded ?Last Taken ?Type alprazolam 0.25 mg tablet 0.25 mg PO TID PRN PRN Insom desmond 08/16/14 Unknown History escitalopram oxalate 10 mg tablet 10 mg PO DAILY 08/16 Unknown History aspirin 81 mg tablet,delayed 81 mg PO DAILY 08/28/23 U nknown History release (Adult Low Dose Aspirin) doxycycline monohydrate 100 mg 100 mg PO BID #20 caps 01/03/25 Unknown Rx capsule fluconazole 200 mg tablet 200 mg PO DAILY #1 TAB 01/03 Unknown Rx apixaban 5 mg (74 tabs) tablets in See Rx Instructions .Route 04/04/25 Unknown Rx a dose pack (Eliquis DVT-PE [...] Cardiovascular: Denies chest pain, orthopnea, palpitations, paroxysmal nocturnaldyspnea or racing heartbeat Respiratory/Chest Respiratory/Chest: Denies cough, dyspnea, dyspnea on exertion, orthopnea or paroxysmal nocturnal dyspnea Neurologic Neurologic: Denies paresthesias or weakness Hematologic/Lymphatic Hematologic/Lymphatic: Denies easy bleeding, easy bruising or lymphadenopathy [...] blood work to assess renal function since thiswould potentially affect what medication she can be treated with and the dose. Lab Data Attestation: I reviewed the patient's lab results. Lab results narrative: CBC is unremarkable. Basic metabolic panel is unremarkable. Labs: Laboratory Results - last 24 hr 04/04/25 11:12 WBC 8.0 RBC 4.30 Hgb 13.6 Hct 39.9 MCV 92.8 MCH 31.6 MCHC 34.1 RDW Std Deviation 44.3 H RDW Coeff of Funmi 13.1 Plt Count 230 MPV 11.9 Immature Gran % (Auto) 0.500 Neut % (Auto) 72.5 H Lymph % (Auto) 14.8 L [place] % (Auto) 5.3 Eos % (Auto) 6.3 H Baso % (Auto) 0.6 Absolute Neuts (auto) 5.8 Absolute Lymphs (auto) 1.18 Nucleated RBC % 0 Sodium 143 Potassium 3.8 Chloride 109 H Carbon Dioxide 24.5 Anion Gap 9 BUN 7 Creatinine 0.91 Estim Creat Clear Calc 56.35 Est GFR (MDRD) Non-Af 66 BUN/Creatinine Ratio 7.8 L Glucose 99 Calcium 8.9 Treatment and Re-Evaluation :: Patient has a clot left greater saphenous vein and is within 2 cm of the origin of the superficial femoral vein on the left. In light of this we will anticoagulate. Patient was explained risk benefits of Coumadin versus Eliquis versus Xarelto. After explaining her risk benefits and differences between the different anticoagulants patient chose Eliquis. She was started on Eliquis 10 mg and given astarter pack prescription. [facility] medicine for 3 to 6 months. Discharge Plan Triage Chief Complaint: Lower Extremity Injury ED Provider: Teodoro Daley Dx/Rx/DC Orders Clinical Impression: Acute deep vein thrombosis (DVT) of left lower extremity, Superficial thrombophlebitis of great saphenous vein, Elevated blood pressure reading without diagnosis of hypertension Instructions: DVT Dc, ED Hypertension, To Be Confirmed Prescriptions: New Eliquis DVT-PE Treat 30D Start 5 mg (74 tabs) Tablets,Dose Pack See Rx Instructions .ROUTE .COMPLEX Qty: 74 0RF Rx Instructions: orally per package directions No Action doxycycline monohydrate 100 mg capsule 100 mg PO BID Qty: 20 0RF fluconazole 200 mg tablet 200 mg PO DAILY Qty: 1 0RF Rx Instructions: please remind pt to NOT take Alprazolam while on this medication alprazolam 0.25 MG tablet 0.25 mg PO TID PRN PRN (Reason: Insomnia) escitalopram oxalate 10 MG tablet 10 mg PO DAILY aspirin [Adult Low Dose Aspirin] 81 mg tablet,delayed release (DR/EC) 81 mg PO DAILY Primary Care Provider: Jennifer Santos Referrals: Jennifer Santos MD [Primary Care Provider, Internal Medicine] - 1-2 Weeks Activity Restrictions/Additional Instructions: You will need to follow-up with Dr. Argueta for additional prescription of Eliquis. You also need tohave your blood pressure checked since it was elevated in the emergency department. Print Language: Marshallese Disposition Disposition: Home, Self Care What to do if you have Problems For any increased pain, shortness of breath, bleeding, nausea or vomiting, chestpain, or any unexpected problems, contact your Primary Care Provider. Call [facility] ([phone]) or report tothe closest Emergency Room. Call 911 if necessary. 04/04/25 1248 Cosigner Signature (if applicable): CC: Dr. Jennifer Santos MD ~ Signed [facility]07-22-2025 Evaluation note* Diagnosis Onset Date Resolution Status Admit Date Acute bronchitis, unspecified acute January 03, 2025 2:56pm Vaginal candidiasis acute January 03, 2025 2:56pm Confusion resolved April 07, 2025 3:39am Uncontrolled hypertension resolved April 07, 2025 3:39am Vertigo, central resolved April 07, 2025 3:39am Acute deep vein thrombosis (DVT) of left lower extremity inactive Oc tober 2024 3:39am Depression with anxiety inactive O ctober 2024 3:39am Obesity (BMI 30-39.9) inactive Oct cecil 2024 3:39am Expressive aphasia deleted Octobe r 2024 3:39am 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 Service: ? Author Type: ? Type: Progress Notes Filed: 12/20/2024 09:23 Note Text: 3rd attempt LVM [facility] History of Present illness Narrative* Nicki Conley - 12/20/2024 9:23 AM EDT 3rd attempt LVM and mailed letter * Nicki Conley - 12/07/2024 10:42 AM EDT 2nd attempt LVM to schedule colonoscopy * Angelica Triplett - 11/30/2024 11:46 AM EDT 1'st attempt to schedule est well visit and open access colonoscopy. LVM to return call documented in this encounterAdena [facility]06-25-2025 NoteHNO ID: [id number] Author: ?, ?, ? Service: ? Author Type: ? Type: Progress Notes Filed: 12/20/2024 09:23 Note Text: 2nd attempt LVM to [facility]oscopyC[facility]06-[facility] Note HNO ID: [id number] Author: ?, ?, ? Service: ? Author Type: ? Type: Progress Notes Filed: 12/20/2024 09:23 Note Text: 1'st attempt to schedule est well visit and open access colonoscopy. LVM to return callC[facility]06-17-2025 Instructions* Patient Instructions* Lisa Whalen RN - 11/29/2024 8:45 AM [...] (i.e. drive a car, bicycle, etc) or [facility] ALONE. It is not safe [...] with insulin, diabetic pills, or other injectable medicationsdo not take your REGULAR dose after midnight on the day of your procedure. If you are taking any other types of insulin such as Lantus, Humalog, NPH (long- acting insulin), or70/30 insulin, take half your normal dose the [...] medications (including aspirin, antibiotics, water pills / diureticslike Lasix or Metolozone, blood pressure meds, etc.) [...] prep in two doses. Split dosing helps cleanyour colon better and makes it less likely that your procedure will be canceled. You will need to purchase the following (no prescriptions are needed): 64 ounces Gatorade, Propel, Crystal Lite or other noncarbonated clear liquid sports drink (NOT red,orange, or purple). Diabetic patients buy sugar-free, e.g. [...] am on dialysis? A: Please consult your sr. operations manager prior to scheduling to get instructions pertinent to you. In general, dialysis patients take the GetOne Rewardsly bowel prep and have the procedure same [...] to inadequate prep quality. documented in this encounterAdena Fayette [facility] Center06-17-2025 NotePatient Outreach (ASWSTR) ILENE SHAW ([id number]) 1950 F Date Time Provider Department 11/29/24 [...] Diabetic patients buy sugar-free, (more content not included)...[facility]04-[facility] History of Present illness Narrative* Colin Ozuna Mammo Tech - 09/22/2024 9:50 AM EDT Radiology Service Progress Note PATIENT NAME: Ilene Shaw DATE OF SERVICE: September 22, 2024 TIME: 10:33 AM PATIENT IDENTITY VERIFICATION COMPLETED USING TWO (2) IDENTIFIERS: Name and Date of confirmedby patient verbally. FALL SCREENING: Has the patient had 2 falls in the last year or 1 fall with injury or currently using an Ambulatory Assistive Device (Walker, Cane, Wheelchair, Crutches, etc.)? No PATIENT GENDER DATA: Assigned female at . status: : No status:NO. PATIENT RELEVANT IMPLANT DATA REVIEWED: Not Applicable PATIENT PRESENTS WITH AN IMPLANTABLE OR ATTACHED GRAB JACK MAN: No RADIOLOGY DEPARTMENT: Mammography PERIPHERAL IV DATA: Not applicable SIGNED BY: Natalee Peterson September 22, 2024 10:33 AM documented in this encounterAdena Fayette Medical Center04-10-2025 NoteHNO ID: [id number] Author: COLIN OZUNA Mammo Tech Service: ? Author Type: Elder Counselor Type: Progress Notes Filed: 09/22/2024 10:33 Note [...] PATIENT PRESENTS WITH AN IMPLANTABLE OR ATTACHED GRAB JACK MAN: No RADIOLOGY DEPARTMENT: Mammography PERIPHERAL IV DATA: Not applicable SIGNED BY: Natalee Peterson September 22, 2024 10:33 [facility]04-02-2025 Telephone encounter Note* Telephone Encounter - Kelle Peter APRN.CNP - 09/14/2024 4:48 PM EDT Order placed Kelle Peter APRN.CNP [facility]04-02-2025 Miscellaneous Notes* Telephone Encounter - Kelle Peter APRN.CNP - 09/14/2024 4:48 PM EDT Order placed Kelle Peter APRN.CNP * Telephone Encounter - Soraya Pena - 09/14/2024 1:02 PM EDT Patient calling in for her yearly mammogram with el. Patient is scheduled, she just needs an order. Please review Soraya Pena September 14, 2024 1:03 PM documented in this encounterAdena Fayette [facility] Center04-02-2025 Telephone encounter Note * Telephone Encounter - Soraya Pena - 09/14/2024 1:02 PM EDT Patient calling in for her yearly mammogram with el. Patient is scheduled, she just needs an order. Please review Soraya Pena September 14, 2024 1:03 PM [facility]11-27-2024 Telephone encounter Note* Telephone Encounter - Claudette Dial LPN - 05/11/2024 7:07 PM EST Patient given results and verbalized understanding of instructions given. Claudette Dial LPN [facility]11-27-2024 Miscellaneous Notes* Telephone Encounter - Claudette Dial LPN - 05/11/2024 7:07 PM EST Patient given results and verbalized understanding of instructions given. Claudette Dial LPN * Telephone Encounter - Montse Ramirez LPN - 05/11/2024 9:48 AM EST Left message for patient to return call for results.Montse Ramirez LPN * Telephone Encounter - Torrey Dawson PA-C - 05/11/2024 8:41 AM EST Please call and let patient know her STD testing was negative. She did test positive for yeast. I did send in medication for this. Urine culture is still pending will call as needed. Continue antibiotic as well. Follow-up with PCP if no improvement. documented in this encounterAdena Fayette Medical Center11-27-2024 Telephone encounter Note * Telephone Encounter - Montse Ramirez LPN - 05/11/2024 9:48 AM EST Left message for patient to return call for results.Montse Ramirez LPN [facility]11-27-2024 Telephone encounter Note* Telephone Encounter - Torrey Dawson PA-C - 05/11/2024 8:41 AM EST Please call and let patient know her STD testing was negative. She did test positive for yeast. I did send in medication for this. Urine culture is still pending will call as needed. Continue antibiotic as well. Follow-up with PCP if no improvement. [facility]11-26-2024 NoteHNO ID: [id number] Author: TORREY DAWSON PA-C Service: ? Author Type: Physician Ornament Stapler Type: Progress Notes Filed: 05/10/2024 14:21 Note Text: This note was created using ClassPassriter. Madison Shaw is a 74 year old female. [...] Exam Vitals reviewed. Exam conducted with a lean manufacturing specialist present (Claudette ARTHUR). Constitutional: Appearance: Normal appearance. HENT: Head: [...] ICD10: N89.8 Given Mycolog cream for irritation. [facility]11-26-2024 History of Present illness Narrative* Torrey Dawson PA-C - 05/10/2024 2:17 PM EST This note was created using ClassPassriter. Subjective Ilene Shaw is a 74 year [...] frequency, pelvic pain, urgency, vaginal discharge and vaginalpain. Negative for hematuria and vaginal bleeding. All [...] kg (191 lb 12.8 oz) SpO2 100% BMI35.08 kg/m Physical Exam Vitals reviewed. Exam conducted with a lean manufacturing specialist present (Claudette ARTHUR). Constitutional: Appearance: Normal appearance. HENT: Head: [...] irritation. Torrey Dawson PA-C documented in this encounterAdena [facility] Center06-05-2024 Telephone encounter Note * Telephone Encounter - Norma Tatum MA - 11/18/2023 1:08 PM EDT Patient given results and verbalized understanding of instructions given. Norma Tatum MA [facility]06-05-2024 Miscellaneous Notes* Telephone Encounter - Norma Tatum MA - 11/18/2023 1:08 PM EDT Patient given results and verbalized understanding of instructions given. Norma Tatum MA * Telephone Encounter - Julieta Oreilly APRN.CNP - 11/18/2023 11:32 AM EDT CXR negative. Please notify patient. Complete ATB and follow up with PCP as needed. Please advise patient. documented in this encounterAdena Fayette [facility] Center06-05-2024 Telephone encounter Note * Telephone Encounter - Julieta Oreilly APRN.CNP - 11/18/2023 11:32 AM EDT CXR negative. Please notify patient. Complete ATB and follow up with PCP as needed. Please advise patient. [facility] Work Phone: 1(941) 522-966606-05-2024 History of Present illness Narrative* Mary Castro RT(Randy) - 11/18/2023 11:00 AM EDT Radiology Service Progress Note PATIENT NAME: Ilene Shaw DATE OF SERVICE: November 18, 2023 TIME: 10:45 AM PATIENT IDENTITY VERIFICATION COMPLETED USING TWO (2) IDENTIFIERS: Name and Date of confirmedby patient verbally. FALL SCREENING: Has the patient had 2 falls in the last year or 1 fall with injury or currently using an Ambulatory Assistive Device (Walker, Cane, Wheelchair, Crutches, etc.)? No PATIENT GENDER DATA: Female. status: : No status: NO. PATIENT RELEVANT IMPLANT DATA REVIEWED: Yes PATIENT PRESENTS WITH AN IMPLANTABLE OR ATTACHED GRAB JACK MAN: No RADIOLOGY DEPARTMENT: General X-ray: Exam(s) Completed: Chest X-Ray PERIPHERAL IV DATA: Not applicable SIGNED BY: RT Ravi(Randy) November 18, 2023 10:45 AM documented in this encounterAdena Fayette [facility] Center06-04-2024 History of Present illness Narrative* Elaine Lemus, DEBO.POLICE MAGISTRATE - 11/17/2023 6:40 PM EDT Subjective HPI Ilene Shaw is a 73 year old female who presents with 2.5 weeks of a "cold that won't go away". She has had cough, chest congestion, sinus congestion and drainage, wheezing, and shortness of breath. The cough is productive of "green sputum". She feels more tired than usual. States [...] kg (192 lb 0.3 oz) SpO2 94% BMI35.12 kg/m PAST MEDICAL HISTORY Diagnosis Date Adjustment [...] right-upper field reveals wheezing. Examination of the left-upperfield reveals wheezing. Examination of the right- lower field reveals decreased breath sounds and wheezing. [...] Discussed expected course of illness Elaine Lemus APRN.CNP documented in this encounterAdena Fayette Medical Center06-04-2024 Instructions* Patient Instructions* Elaine Lemus APRN.CNP - 11/17/2023 6:40 PM EDT ASSESSMENT/PLAN: 1. [...] Discussed expected course of illness Elaine Lemus APRN.CNP ACUTE BRONCHITIS: You have acute bronchitis. This [...] days of proper treatment. documented in this encounterAdena [facility] Center05-09-2024 Telephone encounter Note * Telephone Encounter - Julieth Houston MA - 10/22/2023 8:28 AM EDT Patient returned call, notified of results, states symptoms are improving with cream and will follow up for any persistent symptoms. Julieth Houston MA [facility]05-09-2024 Miscellaneous Notes* Telephone Encounter - Julieth Houston MA - 10/22/2023 8:28 AM EDT Patient returned call, notified of results, states symptoms are improving with cream and will follow up for any persistent symptoms. Julieth Houston MA * Telephone Encounter - Julieth Houston MA - 10/22/2023 8:23 AM EDT Left VM instructing patient to return call to discuss. Julieth Houston MA * Telephone Encounter - Cesar Ralph APRN.CNP - 10/22/2023 7:12 AM EDT Please notify labs were positive for yeast. The mycolog cream ordered may be sufficient to treat. Ask how s/s area. If s/s persisting I will order diflucan. documented in this encounterAdena F[facility] Center05-09-2024 Telephone encounter Note * Telephone Encounter - Julieth Houston MA - 10/22/2023 8:23 AM EDT Left VM instructing patient to return call to discuss. Julieth Houston MA [facility]05-09-2024 Telephone encounter Note* Telephone Encounter - Cesar Ralph APRN.CNP - 10/22/2023 7:12 AM EDT Please notify labs were positive for yeast. The mycolog cream ordered may be sufficient to treat. Ask how s/s area. If s/s persisting I will order diflucan. [facility] Work Phone: 1(505) 973-970605-08-2024 History of Present illness Narrative* Torrey Dawson PA-C - 10/21/2023 12:47 PM EDT This note was created using ClassPassriter. Subjective Ilene Shaw is a 73 year [...] NAAT Torrey Dawson PA-C documented in this encounterAdena Fayette Medical Center04-17-2024 History of Present illness Narrative* Prashanth Hunter Mammo Maciel - 09/30/2023 2:30 PM EDT Radiology Service Progress Note PATIENT NAME: Ilene Shaw DATE OF SERVICE: September 30, 2023 TIME: 2:39 PM PATIENT IDENTITY VERIFICATION COMPLETED USING TWO (2) IDENTIFIERS: Name and Date of confirmedby patient verbally. FALL SCREENING: Has the patient had 2 falls in the last year or 1 fall with injury or currently using an Ambulatory Assistive Device (Walker, Cane, Wheelchair, Crutches, etc.)? No PATIENT GENDER DATA: Female. status: : No status: NO. PATIENT RELEVANT IMPLANT DATA REVIEWED: Not Applicable PATIENT PRESENTS WITH AN IMPLANTABLE OR ATTACHED GRAB JACK MAN: No RADIOLOGY DEPARTMENT: Mammography PERIPHERAL IV DATA: Not applicable SIGNED BY: Prashanth Hunter Mammo Maciel September 30, 2023 2:39 PM documented in this encounterAdena Fayette [facility] Center03-25-2024 History of Present illness Narrative* Hannah Kohler Mammo Tech - 09/07/2023 2:10 PM EDT Radiology Service Progress Note PATIENT NAME: Ilene Shaw DATE OF SERVICE: September 07, 2023 TIME: 1:50 PM PATIENT IDENTITY VERIFICATION COMPLETED USING TWO (2) IDENTIFIERS: Name and Date of confirmedby patient verbally. FALL SCREENING: Has the patient had 2 falls in the last year or 1 fall with injury or currently using an Ambulatory Assistive Device (Walker, Cane, Wheelchair, Crutches, etc.)? No PATIENT GENDER DATA: Female. status: : No status: NO. PATIENT RELEVANT IMPLANT DATA REVIEWED: Not Applicable PATIENT PRESENTS WITH AN IMPLANTABLE OR ATTACHED GRAB JACK MAN: No RADIOLOGY DEPARTMENT: Mammography PERIPHERAL IV DATA: Not applicable SIGNED BY: Hannah Kohelr Mammo Tech September 07, 2023 1:50 PM documented in this encounterAdena Fayette Medical Center03-22-2024 Miscellaneous Notes* Telephone Encounter - Ashlyn Roger APRN.CNS - 09/04/2023 8:08 AM EDT The order is already filed, do I need to re-enter it? * Telephone Encounter - Colin Ozuna Mammo Tech - 09/04/2023 7:51 AM EDT Can you release the mammogram order? Pt scheduled with us 09/06. Thanks a million documented in this encounterAdena Fayette Medical Center03-19-2024 Miscellaneous Notes* Telephone Encounter - Mattie Samayoa MA - 09/01/2023 2:58 PM EDT Mammo already scheduled per pt. Mattie Samayoa MA * Telephone Encounter - Ashlyn Roger APRN.CNS - 09/01/2023 12:26 PM EDT OK. Please schedule PCP: Jennifer Santos MD Last seen in oncology 2021. Zofia Donnelly ordered mammogram 2022, follow up appt oncology scheduled. * Telephone Encounter - Micaela Beaulieu LPN - 09/01/2023 11:44 AM EDT Pt calls to request order for mammogram. In the past few years oncology ordered mammograms because of pt's hx of breast cancer. This time pt was advised that pcp office could order mammogram.See TE 08/31/23. Call pt when mammogram has been ordered. Micaela Beaulieu LPN documented in this encounterAdena Fayette Medical Center03-18-2024 Miscellaneous Notes* Telephone Encounter - Bonnie Ibarra LPN - 08/31/2023 2:19 PM EDT Detailed message left on patient's identified VM. Bonnie Ibarra LPN * Telephone Encounter - Zofia Donnelly APRN.CNP - 08/31/2023 2:07 PM EDT Pt. can have her yearly breast exam/mammogram ordered by PCP or CONVEYOR MAN at this point. Follow up here as needed. Thank you. Zofia Donnelly APRN.POLICE MAGISTRATE * Telephone Encounter - Bonnie Ibarra LPN - 08/31/2023 1:06 PM EDT Patient has not been seen here since 10/28/2021. She cancelled her OV 08/19/2022, and never rescheduled. Bonnie Ibarra LPN * Telephone Encounter - Marsha Hernandez - 08/31/2023 12:35 PM EDT Patient is calling to schedule mammography please place orders and advise if patient also needs a follow up with you. documented in this encounterAdena Fayette Medical Center03-15-2024 Hospital Discharge instructions Patient Education 08/28/2023 18:55:31 [...] bleeding from other parts of your body [id number] [employer] [address] [place] [address]. All rights reserved. This information is not intended as a substitute for professional medical care. Always follow yourhealthcare professional's instructions. Follow Up Care 08/28/2023 18:24:22 With:JENNIFER SANTOS MD Address: [address] [place] [address]- When:2-4 days [facility] 03-15-2024 Note Discharge Instructions Thank you for allowing [facility] to assist you with your healthcare needs. The following is importantdischarge information regarding your hospital visit. Diagnosis from Today's Visit Eye problem Subconjunctival hemorrhage What to Do Next Instructions from Your Care Team No qualifying data available. Post Acute Orders No qualifying data available. You Need to Schedule the Following Appointments Follow Up with JENNIFER SANTOS MD When Within 2-4 days Where: [address] [place] [address]- Allergies ampicillin predniSONE Medications Please ask your primary doctor or pharmacist before taking any other medication not listed, including over the counter drugs, herbal medications, vitamins and or supplements as they may interact withyour home medications. What How Much When Instructions [...] bleeding from other parts of your body [id number] [employer] [address] [place] [address]. All rights reserved. This information is not intended as a substitute for professional medical care. Always follow yourhealthcare professional's instructions. Additional Information VACCINATE! IT SAVES LIVES! Members of the community who have not yet received the COVID-19 vaccine and would like to receive it can visit one of [facility] vaccine clinics. There are many vaccine clinic locations within the [facility]. For locations and available times, please visit www.gettheshot.coronavirus.[place].gov/. It is important to note that some COVID mobile vaccine clinics are held outdoors and may be canceled in rainy or stormy conditions. To learn more about pediatric vaccinations (ages 5-11), we invite you to visit the [facility] webpage. https://www.[email or web address].org/pages/[email or web address]-Poqni-Mpvqsqsptvu-Klgzetctoi-Kjavi-Exq stions.htmlTo learn more about the COVID-19 vaccine, we invite you to visit the CDC website for a list of frequently asked questions. https://www.cdc.gov/coronavirus/2019-ncov/vaccines/faq.html [facility] Patient Portal Access Instructions: Stay connected with your healthcare team and access your personal medical information anytime with the [facility] Patient Portal. If you would like a full copy of your medical records please contact the [facility] Medical Records Department Thursday through Thursday between 8a.m. and 4:30p.m. Please follow the directions below to access the portal: 1.Access the email account you provided upon registration to the [facility].2.Look for an invitation email from [facility].3.Open the email and access the invitation link: Accept Invitation to [facility]4.Fill in the required ness to create your account. Sign into www.[employer] with your username and password that you [...] you will allow to register on the [facility] Patient Portal for access to your information. You can also access the [facility] Patient Portal on the [employer] inez. Simply click on "Health Records" under "HealthData" and then click on the [employer] logo. HOW TO SAFELY DISPOSE OF PRESCRIPTION MEDICATIONS Please use one of the following methods to safely dispose of your unused medications. 1.Use a drug disposal kit: the drug disposal pouch allows you to safely discard your old and unuseddrugs. Ask your nurse to give you one when you are discharged.2.Visit a local take-back location: Many local pharmacies and police departments have programs that collect old and unwanted prescriptiondrugs. Call your local pharmacy or go to http://bit.Split/8Y5Ww8o to find one close to you.3.Make use of household items: Use cat litter or old coffee grounds to dispose medications if other options arenot available. Mix your drugs with these household products, seal them in an airtight container andthrow it into the garbage. Call [facility]: [phone] to be sure your drugs can be [...] drowsiness, such as benzodiazepines, also known as benzos,including diazepam and alprazolam, muscle relaxants or sleep aids. Never sell or share prescriptionopioids. This is illegal. Store opioids in a [...] aware that I should contact my doctor. Patient/Chief Airline Radio Operator Signature: Date/Time: Relationship to Patient: Witness Name/Signature: Date/Time: [facility]03-15-2024 History of Present illness Narrative * Julieta Oreilly APRN.CNP - 08/28/2023 4:32 PM EDT PSS staff requests triage. Patient presents with complaints of right eye redness and blurred vision Denies trauma or injury Denies itching Denies pain Given her presentation at 1630 on a Thursday night with visual disturbances, she requires higher level of care. [facility] without appts for the day Referred to ED documented in this encounterAdena Fayette Medical Center12-08-2023 History of Present illness Narrative* Rolf Burger MD - 05/22/2023 12:49 PM EST This note was created using NoteWriter. Subjective Patient presents with: ER F/U: [facility] 05/07/23- facial swelling PCP MD Ilene Chisholmseymour is a 73 year old female who developed facial and upper lip swelling . She went to the [facility] ER, and was treated with IV decadron, diphenhydramine, and sent home son Medrol pack. She was better, although, she [...] month. Rolf Burger MD documented in this encounterAden[facility]12-[facility] History of Present illness Narrative* Yaakov Richter MD - 05/21/2023 1:55 PM EST [facility] Triage Note: [facility] complaint of lip swelling. She had been treated in the ERfor lip and face swelling 05/07/23 with medrol and benadryl. She had left lip swelling returned yesterday. It is improving today. No shortness of breath or wheezing. Scheduled with internal medicine for ER follow up today. documented in this encounterAdena [facility]ayette [facility] Center11-24-2023 Hospital Discharge instructions Patient Education 05/07/2023 22:57:05 Allergic Reaction, Other (General) General Allergic Reactions An allergic reaction is a set of symptoms caused by an allergen. An allergen is something that causes a person s immune system to react. When a person comes in contact with an allergen, it causes thebody to release chemicals. These include the chemical [...] things that can cause a reaction that youmay not be able to figure out. The [...] products Chemicals or dyes in clothing, linen, rug drying machine operator, hair dyes, soaps, iodine Many viruses [...] damage the skin. Oral diphenhydramine is an dgsc-uih-ajpmkat antihistamine sold at pharmacy and grocery stores. Unless a prescription antihistamine was given, diphenhydramine may be used to reduce itching if large areas of the skin are involved. It may make you sleepy. So be careful using it in the daytime or when going to school, working, or driving. Note: Don t use diphenhydramine if you have glaucoma or if youare a man with trouble urinating due to [...] or swallowing, ask your provider about carrying auto- injectable epinephrine. Call 911 Call 911 if any [...] hours, or as directed by your provider [phone] [employer]. [address] [place] [address], [place] [address]. All rights reserved. This information is not intended as a substitute for professional medical care. Always follow yourhealthcare professional's instructions. Follow Up Care 05/07/2023 22:34:33 With:JENNIFER SANTOS MD Address: [address] [place] [address]- When:2-4 days [facility] 11-23-[facility]23 Note Discharge Instructions Thank you for allowing [facility] to assist you with your healthcare needs. The following is importantdischarge information regarding your hospital visit. Diagnosis from Today's Visit Lip swelling Lip swelling What to Do Next Instructions from Your Care Team No qualifying data available. Post Acute Orders No qualifying data available. You Need to Schedule the Following Appointments Follow Up with JENNIFER SANTOS MD When Within 2-4 days Where: [address] [place] [address]- Allergies ampicillin predniSONE Medications Please ask your primary doctor or pharmacist before taking any other medication not listed, including over the counter drugs, herbal medications, vitamins and or supplements as they may interact withyour home medications. What How Much When Instructions [...] Your doctor may occasionally change your dose. Donot use this medicine in larger or smaller [...] expected to produce life threatening symptoms. However, rat exterminator use of high steroid doses can lead to symptoms such as thinning skin, easy bruising, changesin the shape or location of body fat [...] typhoid, yellow fever, varicella (chickenpox), zoster (shingles), andnasal flu (influenza) vaccine. What are the possible [...] may report side effects to FDA at 1-258-GVP-2774. What other drugs will affect methylprednisolone? Other drugs may interact with methylprednisolone, including prescription and rjfa-hrz-edvowkk medicines, vitamins, and herbal products. Tell each of your health care providers about all medicines youuse now and any medicine you start or stop using. Where can I get more information? Your pharmacist can provide more information about methylprednisolone. Remember, keep this and all other medicines out of the reach of children, never share your medicines with others, and use this medication only for the indication prescribed. Every effort has been made to ensure that the information provided by [employer]. ('[employer]') is accurate, up-to-date, and complete, but no guarantee is made to that effect. Drug information contained herein may be time sensitive. CoverMyMeds information has been compiled for use by healthcare practitioners and consumers in the [place] and therefore CoverMyMeds does not warrant that uses outside of the [place] are appropriate, unless specifically indicated otherwise. [employer] drug information does not endorse drugs, diagnose patients or recommend therapy. [employer] drug information isan informational resource designed to assist licensed healthcare practitioners in caring for their p atients and/or to serve consumers viewing this service as a supplement to, and not a substitute for, the expertise, skill, knowledge and judgment of healthcare practitioners. The absence of a warningfor a given drug or drug combination in no way should be construed to indicate that the drug or drug combination is safe, effective or appropriate for any given patient. [employer] does not assume any responsibility for any aspect of healthcare administered with the aid of information [employer]My[employer]eds provides. The information contained herein is not intended to cover all possible uses, directions, precautions, warnings, drug interactions, allergic reactions, or adverse effects. If you have questions about the drugs you are taking, check with your doctor, nurse or pharmacist. Copyright 8328-2728 [employer]. Version: 9.01. Revision Date: 02/11/2017. Education Materials General Allergic Reactions An allergic reaction is a set of symptoms caused by an allergen. An allergen is something that causes a person s immune system to react. When a person comes in contact with an allergen, it causes thebody to release chemicals. These include the chemical [...] things that can cause a reaction that youmay not be able to figure out. The [...] products Chemicals or dyes in clothing, linen, rug drying machine operator, hair dyes, soaps, iodine Many viruses [...] damage the skin. Oral diphenhydramine is an bhfj-ecm-rjqdjdu antihistamine sold at pharmacy and grocery stores. Unless a prescription antihistamine was given, diphenhydramine may be used to reduce itching if large areas of the skin are involved. It may make you sleepy. So be careful using it in the daytime or when going to school, working, or driving. Note: Don t use diphenhydramine if you have glaucoma or if youare a man with trouble urinating due to [...] or swallowing, ask your provider about carrying auto- injectable epinephrine. Call 911 Call 911 if any [...] hours, or as directed by your provider [phone] [employer] [address] [place] [address]. All rights reserved. This information is not intended as a substitute for professional medical care. Always follow yourhealthcare professional's instructions. Additional Information VACCINATE! IT SAVES LIVES! Members of the community who have not yet received the COVID-19 vaccine and would like to receive it can visit one of [facility] vaccine clinics. There are many vaccine clinic locations within the [facility]. For locations and available times, please visit www.gettheshot.coronavirus.[place].gov/. It is important to note that some COVID mobile vaccine clinics are held outdoors and may be canceled in rainy or stormy conditions. To learn more about pediatric vaccinations (ages 5-11), we invite you to visit the [facility] webpage. https://www.[facility].org/pages/2980-Xvrgb-Dapmwqentaa-Setwfrvapu-Gcorc-Rho stions.htmlTo learn more about the COVID-19 vaccine, we invite you to visit the CDC website for a list of frequently asked questions. https://www.cdc.gov/coronavirus/2019-ncov/vaccines/faq.html [facility] Patient [facility] Access Instructions: Stay connected with your healthcare team and access your personal medical information anytime with the [facility] Patient Portal. If you would like a full copy of your medical records please contact the [facility] Medical Records Department Thursday through Thursday between 8a.m. and 4:30p.m. Please follow the directions below to access the portal: 1.Access the email account you provided upon registration to the [facility].2.Look for an invitation email from [facility].3.Open the email and access the invitation link: Accept Invitation to [facility]4.Fill in the required ness to create your account. Sign into www.[employer] with your username and password that you [...] you will allow to register on the [facility] Patient Portal for access to your information. You can also access the [facility] Patient Portal on the [employer] inez. Simply click on "Health Records" under "HealthDaCHARMS PPEC" and then click on the [facility] logo. HOW TO SAFELY DISPOSE OF PRESCRIPTION MEDICATIONS Please use one of the following methods to safely dispose of your unused medications. 1.Use a drug disposal kit: the drug disposal pouch allows you to safely discard your old and unuseddrugs. Ask your nurse to give you one when you are discharged.2.Visit a local take-back location: Many local pharmacies and police departments have programs that collect old and unwanted prescriptiondrugs. Call your local pharmacy or go to http://bit.Split/9X5Go2t to find one close to you.3.Make use of household items: Use cat litter or old coffee grounds to dispose medications if other options arenot available. Mix your drugs with these household products, seal them in an airtight container andthrow it into the garbage. Call [facility]: [phone] to be sure your drugs can be [...] drowsiness, such as benzodiazepines, also known as benzos,including diazepam and alprazolam, muscle relaxants or sleep aids. Never sell or share prescriptionopioids. This is illegal. Store opioids in a [...] aware that I should contact my doctor. 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 N/A Reason for Outreach Care Gap or Scheduling/Wellness visits Payer: Payor: [employer] MEDICARE / Plan: [employer] MEDICARE PPO / Product Type: PPO / [...] 17, 2022 1:55 PM documented in this encounterAdena Fayette Medical Center03-23-2023 Miscellaneous Notes* Telephone Encounter - Deisy Pratt LPN - 09/04/2022 8:48 AM EDT Message left on identified voicemail of normal mamm results, keep f/u appt. On Thursday as scheduled. Deisy Pratt LPN * Telephone Encounter - Zofia Donnelly APRN.CNP - 09/04/2022 8:39 AM EDT Please inform pt. that her mammogram looks good. Follow up as scheduled. Thank you. Zofia Donnelly APRN.CNP documented in this encounterAdena Fayette Medical Center03-23-2023 Miscellaneous Notes* Letter - Mammography Coordinator - 09/04/2022 8:37 AM EDT September 05, 2022 PID: [id number] Ilene Shaw [address] [place] [address] Dear Ms. Shaw, We are pleased to inform you that [...] report will be kept on file at [facility] as part of your permanent medical record and are available for your continuing care. Thank you for allowing us to help in meeting your health care needs. Sincerely, Dr. Garcia Interpreting Radiologist [facility] (Normal over 40) documented in this encounterAdena Fayette Medical Center03-07-2023 Miscellaneous Notes* Telephone Encounter - Lisa Prieto - 08/19/2022 3:19 PM EST Spoke with pt and scheduled as directed * Telephone Encounter - Zofia Donnelly APRN.CNP - 08/19/2022 8:19 AM EST Done. Needs OV a few days after mammogram. Thank you. Zofia Donnelly APRN.CNP * Telephone Encounter - Tasha Jurado - 08/18/2022 3:08 PM EST Requesting screening mammogram order for appointment on 09/03/22. documented in this encounterAdena Fayette [facility] Center12-30-2022 Miscellaneous Notes* Telephone Encounter - Kelle Peter APRN.CNP - 06/13/2022 2:48 PM EST Noted. Kelle Peter APRN.CNP * Telephone Encounter - Natasha Hernández RN - 06/12/2022 4:21 PM EST Pt called and is notified of providers message and instructions. Pt voices understanding. She states she will stay on the Pradaxa for now. Pt was asked if she would like to schedule an appointment and she states she is going with her daughter to [place] to get a CT. She states she wants to find out how that turns out for her daughter and will then call in and schedule an appointment. Natasha Hernández RN * Telephone Encounter - Kelle Peter APRN.CNP - 06/12/2022 4:09 PM EST Please let patient know that that diarrhea may be a side effect of the pradaxa but not typically the other symptoms. 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 Only other option is [...] of pradaxa? 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 She is patient of Dr. العلي and had follow up with her earlier this month. Will forward to her PCP to review and advise. * Telephone Encounter - Sheree Ferrer RN - 06/11/2022 3:46 PM EST Patient calls to ask what is recommended that she do since starting Pradaxa she has diarrhea once daily liquid and orange in color as well as increased anxiety/depression and not sleeping well at night. Patient hasn't taken any Pradaxa today and only took one dose yesterday. Nurse triage completed.Protocol recommends call PCP when office is open. Patient has allergy to Eliquis and Xarelto. Dr. Beck originally prescribed Pradaxa. Previously Coumadin therapy was mentioned but patient continues to decline Lovenox injections. Reason for Disposition [1] Caller has NON-URGENT medicine question about med that PCP prescribed AND [2] triager unable toanswer question Answer Assessment - Initial Assessment Questions [...] sleep at night. Protocols used: Medication Question [id number] documented in this encounterAdena Fayette [facility] Center12-02-2022 History of Present illness Narrative* Jennifer Santos MD - 05/16/2022 12:06 PM EST Reason for Visit Patient presents with: Follow [...] the past 2 weeks, was working in [employer]. Dr Beck wonderful note has chronological history well articulated which is pasted in my note. Rayne started her on prasdaxa. She was found [...] not help with her hand or foot swelling,but did make her feel very shaky. Cannot [...] which was treated with Xarelto for short time." She recently was in urgent care for [...] F) Resp 12 Ht 157.5 cm (5' 2") Wt 83.9 kg (185 lb) SpO2 96% [...] rx. Jennifer Santos MD documented in this encounterAdena Fayette [facility] Center10-04-2022 Miscellaneous Notes* Telephone Encounter - Nicki Soto LPN - 03/18/2022 11:49 AM EDT Message left making patient aware on verified VM. Instructed to call office back if has any furtherissues. Nicki Soto LPN * Telephone Encounter - Arpit Beck MD - 03/18/2022 11:22 AM EDT Rx sent as requested. * Telephone Encounter - Laura Avila LPN - 03/18/2022 11:11 AM EDT Patient in to office and requested RX be sent to [facility] here in [place]. Confirmed withtheir pharmacy that medication is in stock. * Telephone Encounter - Nicki Soto LPN - 03/18/2022 10:06 AM EDT Patient telephoned. Message from provider given to patient. Declines the lovenox injections. Renny will check her checking and ask her for some money and try to get to the pharmacy today. Nicki Soto LPN * Telephone Encounter - Daisy Christy Cma - 03/17/2022 5:09 PM EDT Left message for patient to return call to office Daisy Christy Cma * Telephone Encounter - Arpit Beck MD - 03/17/2022 4:36 PM EDT They are filling the Pradaxa on Thursday for her? She needs to be anticoagulated for her DVT in the meanwhile. I can call in lovenox injections for her if she is needing to be bridged until Thursday. What was she planning on doing? * Telephone Encounter - Natasha Hernández RN - 03/17/2022 4:23 PM EDT Pt called and is notified of providers message and instructions. Pt voices understanding, but reports she just needs to wait until Thursday when she gets paid. She states she talked with the pharmacy and they are going to fill it for her on Thursday. Please call and advise. Natasha Hernández RN * Telephone Encounter - Arpit Beck MD - 03/17/2022 3:58 PM EDT I would not recommend she continue taking [...] will call in rx to requested pharmacy * Telephone Encounter - Natasha Hernández RN - 03/17/2022 3:52 PM EDT Pt called in and reports there is a $100 cover charge on the Pradaxa. Pt reports she doesn't have the money for it until she gets pain next week. She is asking if it is ok if she takes the Xarelto until she is able to shrimp picker the other medication? Please call and advise. documented in this encounterAdena [facility]ayette [facility] Center10-03-2022 History of Present illness Narrative* Arpit Beck MD - 03/17/2022 2:46 PM EDT Chief Complaint Patient presents with: foot problem: [...] not help with her hand or foot swelling,but did make her feel very shaky. Cannot [...] for itching and swelling. Red flags for re- assessment reviewed with patient in detail. F/u with PCP. - DABIGATRAN ETEXILATE 150 MG CAPSULE 2. Allergy to antithrombotic medication - ICD9: V14.8, ICD10: Z88.8 - DABIGATRAN ETEXILATE 150 MG CAPSULE Arpit Beck MD documented in this encounterAdena Fayette Medical Center10-03-2022 Miscellaneous Notes* Telephone Encounter - Arpit Beck MD - 03/17/2022 2:45 PM EDT Reviewed. * Telephone Encounter - Vj Monte RN - 03/17/2022 2:08 PM EDT Patient reports she is having swelling / [...] day appt for evaluation. documented in this encounterAdena Fayette Medical Center10-01-2022 Miscellaneous Notes* Telephone Encounter - Klaudia Mas LPN - 03/15/2022 10:35 AM EDT 1.Pt calling for a refill of her new rx of xarelto 20 mg daily to the pharmacy. 2. Pt complaining of hand swelling. She can't take prednisone. Is there something else [facility] can take? documented in this encounterAdena Fayette Medical Center09-19-2022 History of Present illness Narrative* Jennifer Santos MD - 03/03/2022 3:40 PM EDT Reason for Visit Patient presents with: ED Follow-up: DVT and swelling in Eliquis Ilene Sahw is a 72 year old female who [...] to her lips. 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 She still takes her lexapro and gets it from [facility]. She can takes the xanax once at [...] F) Resp 12 Ht 157.5 cm (5' 2") Wt 85.7 kg (189 lb) SpO2 95% [...] (LDL) cholesterol less than 130 mg/dL - ICD9:272.4, ICD10: E78.5 Lipid not checked for 3 months Jennifer Santos MD documented in this encounterAdena Fayette Medical Center08-26-2022 Miscellaneous Notes* Telephone Encounter - Torrey Dawson PA-C - 02/07/2022 11:11 AM EDT I called and discussed the ultrasound with the patient showing the superficial vein thrombosis in the greater saphenous and varicose vein. Discussed warm compresses, NSAIDs. I did have her make a follow-up appointment next week with PCP. Patient agreeable. documented in this encounterAdena Fayette Medical Center08-26-2022 History of Present illness Narrative* Torrey Dawson PA-C - 02/07/2022 9:01 AM EDT This note was created using ClassPassriter. Subjective Ilene Shaw is a 71 year [...] breath. No fever or chills. No recent travelor surgeries. She has history of breast cancer [...] kg (191 lb 3.2 oz) SpO2 97% BMI34.97 kg/m Physical Exam Vitals reviewed. Constitutional: Appearance: [...] LAB Torrey Dawson PA-C documented in this encounterAdena Fayette Medical Center08-13-2022 Instructions* Patient Instructions* Zee León APRN.POLICE MAGISTRATE - 01/25/2022 9:32 AM EDT 1. Urinary [...] - BACTERIAL VAGINOSIS AMPLIFICATION documented in this encounterAdena Fayette Medical Center08-13-2022 History of Present illness Narrative* Zee León APRN.CNP - 01/25/2022 9:18 AM EDT Subjective The history is provided by the patient. No language and literature division chair was used. ILAN Shaw is a 71 year old female who presents today for CC of leaking of the bladder. She also has vaginal itching and burning. She denies any fever, chills body aches or vomiting. She has used OTC vaginal creams without relief. Her blood pressure is elevated not on medications, deniesany headache, chest pain, blurred vision. BP 160/102 [...] have confirmed and edited as necessary, the [facility] Review of Systems Constitutional: Negative for [...] for higher level of care were discussed indetail warranting prompt ER evaluation. Zee León APRN.LACY documented in this encounterAdena Fayette Medical Center07-04-2022 History of Present illness Narrative* Natasha Lester PA-C - 12/16/2021 10:19 PM EDT FOLLOW UP VISIT - ABSCESS NAME: Ilene [facility] NO.: [id number] DATE OF SERVICE: 12/13/2021 : 1950 REFERRING PHYSICIAN: MD Stella Chisholma is a patient I am following with [...] conservatively with Bactrim [facility]. She was seen by Zofia Donnelly and was given some Keflex and has not really noticed any significant change on thatantibiotic. Nothing is draining from these yet.. Dr. Muniz had changed patient's antibiotic to Bactrim with instructions to follow up in 10-12 days. Patient states the lumps have been decreasing in size since that time. She denies any pain or drainage. VITALS: Blood pressure 112/68, pulse 101, temperature 36.7 C (98 F), height 157.5 cm (5' 2"), weight 87.5 kg (193 lb), SpO2 98 [...] which included preparing to see the patient, [id number] patient care, completing clinical documentation, obtaining and/or reviewing separately obtained history, performing a medically appropriate examination and counseling and educating the patient/family/caregiver. Natasha Lester PA-C documented in this encounterAdena Fayette Medical Center07-01-2022 Instructions* Patient Instructions* Natasha Lester PA-C - 12/13/2021 1:49 PM EDT -Hibiclens wash daily over the next 2 weeks -May apply small amount of Bactroban -Follow up if any recurrent lumps or pain documented in this encounterAdena Fayette Medical Center06-21-2022 History of Present illness Narrative* Kodi Muniz MD - 12/03/2021 2:13 PM EDT HISTORY AND PHYSICAL Ilene Shaw 1950 REFERRING [...] conservatively with Bactrim after [facility]. She was seen by Zofia Donnelly and was given some Keflex and has not really noticed any significant change on thatantibiotic. Nothing is draining from these yet.. The [...] tablet Take 1 tablet by mouth twice dailyfor 10 days. No current facility-administered medications for [...] entered by the nurse and reviewed by ga Nursing Notes: Bahman HutchisonHOPE 12/03/2021 1:56 PM Signed REVIEW OF SYSTEMS: [...] failure, other cardiac issues, denies claudication, notes coldfeet, denies peripheral arterial stent. Respiratory: The patient [...] psychiatric medications, notes depression, and denies voices, deniessubstance abuse. Endocrine: The patient denies thyroid disorders, [...] 08/2021 Last Colonoscopy: 2014 Bahman Hutchison LPN PHYSICAL EXAMINATION: General: The patient is 71 year old female, well nourished, well hydrated in no acute distress. Thepatient is oriented to time, place, and person. VITALS: Blood pressure 128/90, pulse 98, temperature 37.1 C (98.7 F), height 154.9 cm (5' 1"), weight 86.6 kg (191 lb), SpO2 92 %. HEENT: Normal cephalic, ataumatic, pupils are equally round, sclera are anicteric, mucous membranesare moist, oropharynx is clear. Neck has no [...] and see if this is helpful this hadthe appearance of an MRSA infection but it does not need any drainage at this time. I am going to have her follow back up probably in another 10 to 12 days with my physician res habilitation assistant to make sure that we have made some improvements. If the lumps go away then I do not think any biopsies will be gladys anted however if we do not see complete [...] Kodi Muniz III, MD documented in this encounterA[facility] Nurse Note* Bahman Hutchison, GAS METER REPAIRER - 12/03/2021 1:54 PM EDT REVIEW OF SYSTEMS: General: The patient denies [...] failure, other cardiac issues, denies claudication, notes coldfeet, denies peripheral arterial stent. Respiratory: The patient [...] psychiatric medications, notes depression, and denies voices, deniessubstance abuse. Endocrine: The patient denies thyroid disorders, [...] 2014 Bahman Hutchison LPN documented in this encounterA[facility]05-25-2022 Miscellaneous Notes* Telephone Encounter - Shellie Wise Pss - 11/06/2021 1:33 PM EDT Scheduled by another PSR. * Telephone Encounter - Kailyn Riley RN - 11/06/2021 12:03 PM EDT Patient informed of Zofia's response, stated understanding. Please contact patient to schedule appointment with Dr. Muniz, thank you. Kailyn Riley RN * Telephone Encounter - Zofia Donnelly APRN.CNP - 11/06/2021 9:48 AM EDT Noted. Please schedule with Dr. Muniz. Thank you. Zofia Donnelly APRN.LACY * Telephone Encounter - Kailyn Riley RN - 11/06/2021 9:32 AM EDT Patient stated she was here for an OV last week with Zofia and had a lump "under my arm" (right side). Patient stated she was advised to take keflex for 10 days and call back this week for an update.Patient stated she has 7 tablets left of keflex. Patient had 1 lump when she was here to see Zofia which has shrunk in size down to the size of a pea; she had 2 others appear after her OV which also seem to be getting smaller. Patient denies pain, redness, pus/drainage, fever, or chills. Patient isasking if she should finish the antibiotics and/or be referred to Dr. Muniz for a consultation. Kailyn Riley RN documented in this encounterAdena [facility]05-16-2022 History of Present illness Narrative* Zofia Donnelly, DEBO.POLICE MAGISTRATE - 10/28/2021 9:50 AM EDT Chief Complaint Patient presents with: Established Patient HPI: Ilene Shaw is a 71 year old female who presents here today for follow up breast cancer. Per Dr. Weller's previous note: H/o stage IC, pT1c, pN0, ER/TX positive HER-2 non-overexpressed, right breast cancer, status [...] 95% and HER-2/edmond is 1+. Stage I, [id number]. Patient started her adjuvant radiation therapy a [...] boils but I haven't had any in awhile." Appetite:"It's ok." Energy level:"Ok." She works 4 days per week. Denies [...] (97.4 F) (Temporal) Ht 156.2 cm (5' 1.5") Wt 87.8 kg (193 lb8 oz) BMI 35.97 kg/m APPEARANCE Well appearing, [...] normoactive, soft, non-tender, non-distended, without organomegaly or palpablemasses EXTREMITIES No edema NEURO Awake, alert and oriented x 3, Normal gait and No involuntary motions. SKIN as above, no other rashes/lesions RADIOLOGY: Mammogram 09/02/21: IMPRESSION: BENIGN FINDING There is no mammographic evidence of malignancy. A 1 year screening mammogram is recommended. ASSESSMENT/PLAN: 1. 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) - ICD9: 174.9, ICD10: C50.911 (primarydiagnosis) Stage I c, ER/TX positive HER-2 non- overexpressed breast cancer. - [...] of 08/16/20-Dr. Weller/myself was copied and pasted, documentationhas been reviewed and edited as necessary for today's visit. Zofia Donnelly APRN.CNP documented in this encounterAdena [facility]03-21-2022 History of Present illness Narrative* RT Jazmin(R) - 09/02/2021 10:50 AM EDT Radiology Service Progress Note PATIENT NAME: Ilene Shaw DATE OF SERVICE: September 02, 2021 TIME: 10:40 AM PATIENT IDENTITY VERIFICATION COMPLETED USING TWO (2) IDENTIFIERS: Name and Date of confirmedby patient verbally. FALL SCREENING: Has the patient [...] 02, 2021 10:40 AM documented in this encounterAdena [facility]ayette [facility] Center03-21-2022 Miscellaneous Notes* Result QuickNote - Zofia Donnelly APRN.CNP - 09/02/2021 10:50 AM EDT Please inform pt. that her mammogram is fine. Pt. needs OV in the next few weeks. Thank you. Zofia Donnelly APRN.CNP documented in this encounterAdena [facility]12-17-2021 Miscellaneous Notes* Telephone Encounter - Sheree Ferrer RN - 05/31/2021 11:32 AM EST Patient calls to report she continues to take Bactrim DS for lump under arm but now she is developing a yeast infection. States yeast infection started yesterday and symptoms are worsening. Patient asking for prescription to treat yeast infection be sent to [facility]. Please review and advise, Sheree Ferrer RN documented in this encounterAdena [facility]ayette [facility] Center09-28-2015 History of Past illness Narrative* Problem Noted Date Resolved Date Breast cancer, right 03/12/2015 02/11/2022 Breast cancer 08/14/2014 02/11/2022 Lump or mass in breast 08/09/2014 9 documented as of this encounter (statuses as of 03/03/2022) [facility] of [facility] illness Narrative* Problem Noted Date Resolved Date Breast cancer, right 03/12/2015 02/11/2022 Breast cancer 08/14/2014 02/11/2022 Lump or mass in breast 08/09/2014 9 documented as of this encounter (statuses as of 03/15/2022) [facility] of [facility] illness Narrative* Problem Noted Date Resolved Date Breast cancer, right 03/12/2015 02/11/2022 Breast cancer 08/14/2014 02/11/2022 Lump or mass in breast 08/09/2014 9 documented as of this encounter (statuses as of 03/18/2022) [address]28-2015 History of Past illness Narrative* Problem Noted Date Resolved Date Breast cancer, right 03/12/2015 02/11/2022 Breast cancer 08/14/2014 02/11/2022 Lump or mass in breast 08/09/2014 9 documented as of this encounter (statuses as of 03/18/2022) [address]28-2015 History of Past illness Narrative* Problem Noted Date Resolved Date Breast cancer, right 03/12/2015 02/11/2022 Breast cancer 08/14/2014 02/11/2022 Lump or mass in breast 08/09/2014 9 documented as of this encounter (statuses as of 05/16/2022) [address]28-2015 History of Past illness Narrative* Problem Noted Date Resolved Date Breast cancer, right 03/12/2015 02/11/2022 Breast cancer 08/14/2014 02/11/2022 Lump or mass in breast 08/09/2014 9 documented as of this encounter (statuses as of 06/18/2022) [address]28-2015 History of Past illness Narrative* Problem Noted Date Resolved Date Breast cancer, right 03/12/2015 02/11/2022 Breast cancer 08/14/2014 02/11/2022 Lump or mass in breast 08/09/2014 9 documented as of this encounter (statuses as of 09/04/2022) [address]28-2015 History of Past illness Narrative* Problem Noted Date Resolved Date Breast cancer, right 03/12/2015 02/11/2022 Breast cancer 08/14/2014 02/11/2022 Lump or mass in breast 08/09/2014 9 documented as of this encounter (statuses as of 09/06/2022) [address]28-2015 History of Past illness Narrative* Problem Noted Date Resolved Date Breast cancer, right 03/12/2015 02/11/2022 Breast cancer 08/14/2014 02/11/2022 Lump or mass in breast 08/09/2014 9 documented as of this encounter (statuses as of 10/09/2022) [address]28-2015 History of Past illness Narrative* Problem Noted Date Resolved Date Breast cancer, right 03/12/2015 02/11/2022 Breast cancer 08/14/2014 02/11/2022 Lump or mass in breast 08/09/2014 9 documented as of this encounter (statuses as of 11/17/2022) [address]28-2015 History of Past illness Narrative* Problem Noted Date Diagnosed Date Resolved Date Breast cancer, right 03/12/2015 022 Breast cancer 08/14/2014 02/11/2022 Lump or mass in breast 08/09/201408/23 documented as of this encounter (statuses as of 01/28/2023) [address]28-2015 History of Past illness Narrative* Problem Noted Date Diagnosed Date Resolved Date Breast cancer, right 03/12/2015 022 Breast cancer 08/14/2014 02/11/2022 Lump or mass in breast 08/09/201408/23 documented as of this encounter (statuses as of 04/19/2023) [address]28-2015 History of Past illness Narrative* Problem Noted Date Diagnosed Date Resolved Date Breast cancer, right 03/12/2015 022 Breast cancer 08/14/2014 02/11/2022 Lump or mass in breast 08/09/201408/23 documented as of this encounter (statuses as of 05/21/2023) [address]28-2015 History of Past illness Narrative* Problem Noted Date Diagnosed Date Resolved Date Breast cancer, right 03/12/2015 022 Breast cancer 08/14/2014 02/11/2022 Lump or mass in breast 08/09/201408/23 documented as of this encounter (statuses as of 05/22/2023) [address]28-2015 History of Past illness Narrative* Problem Noted Date Diagnosed Date Resolved Date Breast cancer, right 03/12/2015 022 Breast cancer 08/14/2014 02/11/2022 Lump or mass in breast 08/09/201408/23 documented as of this encounter (statuses as of 08/28/2023) [address]28-2015 History of Past illness Narrative* Problem Noted Date Diagnosed Date Resolved Date Breast cancer, right 03/12/2015 022 Breast cancer 08/14/2014 02/11/2022 Lump or mass in breast 08/09/201408/23 documented as of this encounter (statuses as of 08/31/2023) [address]28-2015 History of Past illness Narrative* Problem Noted Date Diagnosed Date Resolved Date Breast cancer, right 03/12/2015 022 Breast cancer 08/14/2014 02/11/2022 Lump or mass in breast 08/09/201408/23 documented as of this encounter (statuses as of 09/01/2023) [address]28-2015 History of Past illness Narrative* Problem Noted Date Diagnosed Date Resolved Date Breast cancer, right 03/12/2015 022 Breast cancer 08/14/2014 02/11/2022 Lump or mass in breast 08/09/201408/23 documented as of this encounter (statuses as of 09/07/2023) [address]28-2015 History of Past illness Narrative* Problem Noted Date Diagnosed Date Resolved Date Breast cancer, right 03/12/2015 022 Breast cancer 08/14/2014 02/11/2022 Lump or mass in breast 08/09/201408/23 documented as of this encounter (statuses as of 09/08/2023) [address]28-2015 History of Past illness Narrative* Problem Noted Date Diagnosed Date Resolved Date Breast cancer, right 03/12/2015 022 Breast cancer 08/14/2014 02/11/2022 Lump or mass in breast 08/09/201408/23 documented as of this encounter (statuses as of 10/01/2023) [address]28-2015 History of Past illness Narrative* Problem Noted Date Diagnosed Date Resolved Date Breast cancer, right 03/12/2015 022 Breast cancer 08/14/2014 02/11/2022 Lump or mass in breast 08/09/201408/23 documented as of this encounter (statuses as of 10/01/2023) [address]25-2015 History of Past illness Narrative* Problem Noted Date Resolved Date Lump or mass in breast 08/09/2014 9 documented as of this encounter (statuses as of 09/03/2021) [address]25-2015 History of Past illness Narrative* Problem Noted Date Resolved Date Lump or mass in breast 08/09/2014 9 documented as of this encounter (statuses as of 10/30/2021) [address]25-2015 History of Past illness Narrative* Problem Noted Date Resolved Date Lump or mass in breast 08/09/2014 9 documented as of this encounter (statuses as of 11/06/2021) [address]25-2015 History of Past illness Narrative* Problem Noted Date Resolved Date Lump or mass in breast 08/09/2014 9 documented as of this encounter (statuses as of 12/03/2021) [address]25-2015 History of Past illness Narrative* Problem Noted Date Resolved Date Lump or mass in breast 08/09/2014 9 documented as of this encounter (statuses as of 12/17/2021) [address]25-2015 History of Past illness Narrative* Problem Noted Date Resolved Date Lump or mass in breast 08/09/2014 9 documented as of this encounter (statuses as of 01/25/2022) [address]25-2015 History of Past illness Narrative* Problem Noted Date Resolved Date Lump or mass in breast 08/09/2014 9 documented as of this encounter (statuses as of 01/30/2022) [address]25-2015 History of Past illness Narrative* Problem Noted Date Resolved Date Lump or mass in breast 08/09/2014 9 documented as of this encounter (statuses as of 02/07/2022) [address]25-2015 History of Past illness Narrative* Problem Noted Date Resolved Date Lump or mass in breast 08/09/2014 9 documented as of this encounter (statuses as of 02/07/2022) [facility]Dis[facility] Author Venkat Mustafa [facility] May 27, 2023 1:39am Note Date/Time May 27, 2023 12:45am [facility] Medical Records Department [address] [place] [address] Emergency Department Summary 05/27/23 MR#: [id number] Acct: [id number] Name: ILENE SHAW Rep #:[id number] : 1950 73 From: Venkat Mustafa [...] she states that took care of it. [facility] Medical History Adult-onset Still's disease Anxiety [...] a couple months ago and had normal labs" done as an outpatient. Given her history [...] your Primary Care Provider. Call [facility] ([phone]) or report to the closest Emergency Room. Call 911 if necessary. 05/27/23 0139 <Electronically signed by Venkat Mustafa MD> Cosigner Signature (if applicable): CC: Dr. Jennifer Santos MD ~ Signed [facility] Work Phone: Evaluation + Plan note No data available for this section [facility] Evaluation note* Diagnosis 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) Encounter for screening mammogram for high-risk patient [facility] 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)- Primary Cellulitis of axillary region Cellulitis and abscess of upper arm and forearm [facility] Diagnosis Cutaneous abscess of right axilla- Primary Cellulitis and abscess of upper arm and forearm [facility] Axillary abscess- Primary Cellulitis and abscess of upper arm and forearm [facility]* Diagnosis Urinary frequency- Primary Elevated blood pressure reading without diagnosis of hypertension Acute vaginitis Vaginitis and vulvovaginitis, unspecified [facility]* Diagnosis Left leg swelling- Primary Swelling of limb [facility] noteNo assessment information availableWMiami Valley [facility] Work Phone: Evaluation note* Diagnosis Anxiety- Primary Anxiety state, unspecified DVT (deep vein thrombosis) in Deep phlebothrombosis, antepartum, unspecified as to episode of care Hyperlipidemia with target low density lipoprotein (LDL) cholesterol less than 130 mg/dL [facility]* Diagnosis Recurrent deep vein thrombosis (DVT) of lower extremity, unspecified laterality (HCC)- Primary Allergy to antithrombotic medication [facility] Diagnosis Recurrent deep vein thrombosis (DVT) of lower extremity, unspecified laterality (HCC) [facility]* Diagnosis Recurrent deep vein thrombosis (DVT) (HCC)- Primary Pedal edema Edema Other acute sinusitis, recurrence not specified documented in this encounter [facility]* Diagnosis 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)- Primary Personal history of breast cancer Personal history of malignant neoplasm of breast Encounter for screening mammogram for malignant neoplasm of breast Other screening mammogram documented in this encounter [facility]* Diagnosis 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) Personal history of breast cancer Personal history of malignant neoplasm of breast Encounter for screening mammogram for malignant neoplasm of breast Other screening mammogram [facility]* Diagnosis Lip swelling- Primary Diseases of lips [facility]* Diagnosis Angioedema of lips, subsequent encounter- Primary [facility]* Diagnosis Blurred vision, right eye- Primary Other specified visual disturbances [facility]* Diagnosis ER+ (estrogen receptor positive status)- Primary Estrogen receptor positive status [ER+] Encounter for screening mammogram for breast cancer [facility] Diagnosis ER+ (estrogen receptor positive status) Estrogen receptor positive status [ER+] Encounter for screening mammogram for breast cancer [facility] Diagnosis Abnormal mammogram of left breast [facility]* Diagnosis Abnormal mammogram of left breast [facility]* Diagnosis Vaginal itching- Primary Pruritus of genital organs [facility]* Diagnosis Sinobronchitis- Primary Unspecified sinusitis (chronic) Acute cough [facility]* Diagnosis Acute cough documented in this encounter [facility]* Diagnosis Encounter for routine adult medical [...] vagina documented in this encounter [facility] note* Diagnosis Encounter for routine adult [...] for breast cancer documented in this encounter [facility]* Diagnosis Encounter for routine adult medical [...] for breast cancer [facility] Diagnosis Encounter for routine adult medical [...] malignant neoplasms, colon [facility] Additional Instructions Since you were [...] breathing or swallowing, return to the ER immediately.[facility] Work Phone: Hospital Discharge instructionsAdditional Instructions You will need to follow-up with Dr. Argueta for additional prescription of Eliquis. You also need to have your blood pressure checked since it was elevated in the emergency department.[facility] Work Phone: Reason for referral (narrative)* Outpatient Procedure (Urgent) - Closed Specialty Diagnoses / Procedures Referred By Amy cherry Referred To [facility] Diagnoses Left leg swelling Procedures US LEG VEIN DVT UNL VAS LAB DUP-SCAN XTR VEINS UNILATERAL/LIMITED STUDY Torrey Dawson PA-C [address] [place] [address] [facility] [address] [place] [address] Referral ID Status Reason Start Date Expiration Date V isits Requested Visits Authorized [id number] Closed Auto-Generate d Referral 02/07/2022 02/07/2023 1 1 [facility] for referral (narrative)* Diagnostic Procedure Only (Routine) - Closed Specialty Diagnoses / Procedures Referred By Amy cherry Referred To Contact [facility] Diagnoses 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) Personal history of breast cancer Encounter for screening mammogram for malignant neoplasm of breast Procedures BARBARA SCREENING W EL SCREENING DIGITAL BREAST TOMOSYNTHESIS BI SCREENING MAMMOGRAPHY BI 2-VIEW BREAST INC [facility] Zofia Donnelly APRN.POLICE MAGISTRATE [address] [place] [address] [facility] [address] [place] [address] Referral ID Status Reason Start Date Expiration Date V isits Requested Visits Authorized [id number] Closed Auto-Generate d Referral 08/19/2022 09/17/2023 1 1 [facility] for referral (narrative)* Diagnostic Procedure Only (Routine) - Closed Specialty Diagnoses / Procedures Referred By Amy cherry Referred To Contact [facility] Diagnoses 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) Personal history of breast cancer Encounter for screening mammogram for malignant neoplasm of breast Procedures BARBARA SCREENING W EL SCREENING DIGITAL BREAST TOMOSYNTHESIS BI SCREENING MAMMOGRAPHY BI 2-VIEW BREAST INC Zofia Raman, ROLL SCALE MAN.POLICE MAGISTRATE [address] [place] [address] [facility] [address] [place] [address] Referral ID Status Reason Start Date Expiration Date V isits Requested Visits Authorized [id number] Closed Auto-Generate d Referral 08/19/2022 09/17/2023 1 1 [facility] for referral (narrative)* Diagnostic Procedure Only (Routine) - Pending Review Specialty Diagnoses / Procedures Referred By Amy cherry Referred To Contact [facility] Diagnoses ER+ (estrogen receptor positive status) Encounter for screening mammogram for breast cancer Procedures BARBARA SCREENING W EL SCREENING DIGITAL BREAST TOMOSYNTHESIS BI SCREENING MAMMOGRAPHY BI 2-VIEW BREAST INC Ashlyn Tamez, ROLL SCALE MAN.BAKER SECOND [address] [place] [address] [facility] [address] [place] [address] Referral ID Status Reason Start Date Expiration Date Visits Requested Visits Authorized [id number] Pending Review Auto-Generat ed Referral 09/01/2023 09/30/2024 1 1 [facility] for referral (narrative)* Diagnostic Procedure Only (Routine) - Closed Specialty Diagnoses / Procedures Referred By Richmondac t Referred To Contact [facility] Diagnoses Abnormal mammogram of left breast Procedures US BREAST LTD LEFT US BREAST UNI REAL TIME WITH IMAGE LIMITED Ashlyn Roger APRN.BAKER SECOND [address] [place] [address] [facility] [address] [place] [address] Referral ID Status Reason Start Date Expiration Date V isits Requested Visits Authorized [id number] Closed Auto-Generate d Referral 09/08/2023 10/07/2024 1 1 [facility] for referral (narrative)No reason for referral information availableCommunity [facility]* Diagnostic Procedure Only (Routine) [...] BI 2-VIEW BREAST INC CAD Zofia Donnelly APRN.POLICE MAGISTRATE [address] [place] [address] [facility] [address] [place] [address] Referral ID Status Reason Start Date Expiration Date V isits Requested Visits Authorized [id number] Closed Auto-Generate d Referral 08/19/2022 09/17/2023 1 1 [facility] for visit Narrative* Diagnostic Procedure Only (Routine) - Closed Specialty Diagnoses / Procedures Referred By Amy t Referred To Contact [facility] Diagnoses ER+ (estrogen receptor positive status) Encounter for screening mammogram for breast cancer Procedures BARBARA SCREENING W EL SCREENING DIGITAL BREAST TOMOSYNTHESIS BI SCREENING MAMMOGRAPHY BI 2-VIEW BREAST INC CAD Ashlyn Roger, ROLL SCALE MAN.BAKER SECOND [address] [place] [address] [facility] [address] [place] [address] Referral ID Status Reason Start Date Expiration Date V isits Requested Visits Authorized [id number] Closed Auto-Generate d Referral 09/01/2023 09/30/2024 1 1 [facility] for visit Narrative* Diagnostic Procedure Only (Routine) - Closed Specialty Diagnoses / Procedures Referred By Contac t Referred To Contact [facility] Diagnoses Abnormal mammogram of left breast Procedures US BREAST LTD LEFT US BREAST UNI REAL TIME WITH IMAGE LIMITED Ashlyn Roger, ROLL SCALE MAN.BAKER SECOND [address] [place] [address] [facility] [address] [place] [address] Referral ID Status Reason Start Date Expiration Date V isits Requested Visits Authorized [id number] Closed Auto-Generate d Referral 09/08/2023 10/07/2024 1 1 [facility] for visit Narrative* Diagnostic Procedure Only (Routine) - Closed Specialty Diagnoses / Procedures Referred By Amy t Referred To Contact [facility] Diagnoses Abnormal mammogram of left breast Procedures BARBARA DIAGNOSTIC LEFT DIAGNOSTIC MAMMOGRAPHY COMPUTER-AIDED DETCJ UNI Ashlyn Roger, ROLL SCALE MAN.BAKER SECOND [address] [place] [address] [facility] [address] [place] [address] Referral ID Status Reason Start Date Expiration Date V isits Requested Visits Authorized [id number] Closed Auto-Generate d Referral 09/08/2023 10/07/2024 1 1 [facility] for visit Narrative* Diagnostic Procedure Only (Routine) - Closed Specialty Diagnoses / Procedures Referred By [place] t Referred To Contact [facility] Diagnoses Encounter for screening mammogram for breast cancer Procedures BARBARA SCREENING W EL SCREENING DIGITAL BREAST TOMOSYNTHESIS BI SCREENING MAMMOGRAPHY BI 2-VIEW BREAST INC CAD Kelle Peter, ROLL SCALE MAN.POLICE [employer]IST[employer] [address] [place] [address] Phone: tel: fax: [facility] [address] [place] [address] Referral ID Status Reason Start Date Expiration Date V isits Requested Visits Authorized [id number] Closed Auto-Generate d Referral 09/14/2024 10/14/2025 1 1 [facility] Summary Purpose Family History No Family History Records Found No data available for this section No data available for this section No Family History Records FoundNo Family History Records FoundNo Family History Records Found Advance Directives No Advanced Directives Records Found Advance Directive Response Recorded Date/ Time Advance Directives No August 16 10:15am Living Will No February 18 022 7:31am Power of [employer] Nurse No February 18, 2022 7:31am Advance Directive Response Recorded Date/ Time Advance Directives No August 16 10:15am Living Will No March 02, 2022 6:30pm Power of [employer] Nurse No February 6:30pm Advance Directive Response Recorded Date/ Time Advance Directives No August 16 9:15am Living Will No May 26 023 11:53pm Power of [employer] Nurse No May 26, 2023 11:53pm Advance Directive Response Recorded Date/ Time Advance Directives No August 16 10:15am Living Will No August 28, 2023 6:01pm Power of [employer] Nurse No August 27 6:01pm Advance Directive Response Recorded Date/ Time Advance Directives No August 16 10:15am Advance Directive Response Recorded Date/ Time Do you have a Healthcare Power of Mothercraft Nurse? No April 04, 2025 9:38am Do you have a Healthcare Power of [employer] Nurse? No April 07, 2025 3:35am Advance Directives No August 16 9:15am Chief Complaint and Reason for Visit Chief Complaint DVT Chief Complaint DVT EDEMA Chief Complaint TONGUE EDEMA Chief Complaint TONGUE EDEMA eye problem Chief Complaint Admit Date Cough January 03, 2025 2:56 pm Chief Complaint Admit Date Cough January 03, 2025 2:56 pm LEG RASH April 04, 2025 1 0:35am CVA; WITH MILD EXPRESSIVE APHASIA, CONFU CARLIN, & April 07, 2025 3:39am Reason for Visit Admit Date Acute bronchitis, unspecified January 03, 2025 2:56pm Vaginal candidiasis January 03, 2025 2:56 pm Confusion April 07, 2025 3 :39am Uncontrolled hypertension April 07, 2025 3:39am Vertigo, central April 07, 2025 3 :39am Acute deep vein thrombosis (DVT) of left lower extremity April 07, 2025 3:39am Depression with anxiety April 07 3:39am Obesity (BMI 30-39.9) April 07, 2025 3:39am Expressive aphasia April 07, 2025 3 :39am 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 April 07, 2025 3:39am Additional Source Comments INFORMATION SOURCE (unrecogn ized section and content) DATE CREATED AUTHOR 11/14/2018 [facility] DATE CREATED AUTHOR AUTHOR'S ORGANIZ ATION 09/03/2023 [facility] ([place]) DATE CREATED AUTHOR AUTHOR'S ORGANIZ ATION 04/17/2025 [facility] DATE CREATED AUTHOR AUTHOR'S ORGANIZ ATION 04/24/2025 [facility] Source Comments (unrecognize d section and content) In the event this informatio n is protected by the Federal Confidentiality of Alcohol and Drug Abuse Patient Records regulations: The Federal rules restrict any use of the information to criminally investigate or prosecute any alcohol or drug abuse patient.[facility] the event this information is protected by the Federal Confidentiality of Alcohol and Drug Abuse Patient Records regulations: The Federal rules restrict any use of the information to criminally investigate or prosecute any alcohol or drug abuse patient.[facility] CenterIn the event this information is protected by the Federal Confidentiality of Alcohol and Drug Abuse Patient Records regulations: The Federal rules restrict any use of the information to criminally investigate or prosecute any alcohol or drug abuse patient.[facility] CenterIn the event this information is protected by the Federal Confidentiality of Alcohol and Drug Abuse Patient Records regulations: The Federal rules restrict any use of the information to criminally investigate or prosecute any alcohol or drug abuse patient.[facility] CenterIn the event this information is protected by the Federal Confidentiality of Alcohol and Drug Abuse Patient Records regulations: The Federal rules restrict any use of the information to criminally investigate or prosecute any alcohol or drug abuse patient.[facility] CenterIn the event this information is protected by the Federal Confidentiality of Alcohol and Drug Abuse Patient Records regulations: The Federal rules restrict any use of the information to criminally investigate or prosecute any alcohol or drug abuse patient.[facility] CenterIn the event this information is protected by the Federal Confidentiality of Alcohol and Drug Abuse Patient Records regulations: The Federal rules restrict any use of the information to criminally investigate or prosecute any alcohol or drug abuse patient.[facility] CenterIn the event this information is protected by the Federal Confidentiality of Alcohol and Drug Abuse Patient Records regulations: The Federal rules restrict any use of the information to criminally investigate or prosecute any alcohol or drug abuse patient.[facility] CenterIn the event this information is protected by the Federal Confidentiality of Alcohol and Drug Abuse Patient Records regulations: The Federal rules restrict any use of the information to criminally investigate or prosecute any alcohol or drug abuse patient.[facility] CenterIn the event this information is protected by the Federal Confidentiality of Alcohol and Drug Abuse Patient Records regulations: The Federal rules restrict any use of the information to criminally investigate or prosecute any alcohol or drug abuse patient.[facility] CenterIn the event this information is protected by the Federal Confidentiality of Alcohol and Drug Abuse Patient Records regulations: The Federal rules restrict any use of the information to criminally investigate or prosecute any alcohol or drug abuse patient.[facility] CenterIn the event this information is protected by the Federal Confidentiality of Alcohol and Drug Abuse Patient Records regulations: The Federal rules restrict any use of the information to criminally investigate or prosecute any alcohol or drug abuse patient.[facility] CenterIn the event this information is protected by the Federal Confidentiality of Alcohol and Drug Abuse Patient Records regulations: The Federal rules restrict any use of the information to criminally investigate or prosecute any alcohol or drug abuse patient.[facility] CenterIn the event this information is protected by the Federal Confidentiality of Alcohol and Drug Abuse Patient Records regulations: The Federal rules restrict any use of the information to criminally investigate or prosecute any alcohol or drug abuse patient.[facility] CenterIn the event this information is protected by the Federal Confidentiality of Alcohol and Drug Abuse Patient Records regulations: The Federal rules restrict any use of the information to criminally investigate or prosecute any alcohol or drug abuse patient.[facility] CenterIn the event this information is protected by the Federal Confidentiality of Alcohol and Drug Abuse Patient Records regulations: The Federal rules restrict any use of the information to criminally investigate or prosecute any alcohol or drug abuse patient.[facility] CenterIn the event this information is protected by the Federal Confidentiality of Alcohol and Drug Abuse Patient Records regulations: The Federal rules restrict any use of the information to criminally investigate or prosecute any alcohol or drug abuse patient.[facility] CenterIn the event this information is protected by the Federal Confidentiality of Alcohol and Drug Abuse Patient Records regulations: The Federal rules restrict any use of the information to criminally investigate or prosecute any alcohol or drug abuse patient.[facility] CenterIn the event this information is protected by the Federal Confidentiality of Alcohol and Drug Abuse Patient Records regulations: The Federal rules restrict any use of the information to criminally investigate or prosecute any alcohol or drug abuse patient.[facility] CenterIn the event this information is protected by the Federal Confidentiality of Alcohol and Drug Abuse Patient Records regulations: The Federal rules restrict any use of the information to criminally investigate or prosecute any alcohol or drug abuse patient.[facility] CenterIn the event this information is protected by the Federal Confidentiality of Alcohol and Drug Abuse Patient Records regulations: The Federal rules restrict any use of the information to criminally investigate or prosecute any alcohol or drug abuse patient.[facility] CenterIn the event this information is protected by the Federal Confidentiality of Alcohol and Drug Abuse Patient Records regulations: The Federal rules restrict any use of the information to criminally investigate or prosecute any alcohol or drug abuse patient.[facility] CenterIn the event this information is protected by the Federal Confidentiality of Alcohol and Drug Abuse Patient Records regulations: The Federal rules restrict any use of the information to criminally investigate or prosecute any alcohol or drug abuse patient.[facility] CenterIn the event this information is protected by the Federal Confidentiality of Alcohol and Drug Abuse Patient Records regulations: The Federal rules restrict any use of the information to criminally investigate or prosecute any alcohol or drug abuse patient.[facility] CenterIn the event this information is protected by the Federal Confidentiality of Alcohol and Drug Abuse Patient Records regulations: The Federal rules restrict any use of the information to criminally investigate or prosecute any alcohol or drug abuse patient.[facility] CenterIn the event this information is protected by the Federal Confidentiality of Alcohol and Drug Abuse Patient Records regulations: The Federal rules restrict any use of the information to criminally investigate or prosecute any alcohol or drug abuse patient.[facility] CenterIn the event this information is protected by the Federal Confidentiality of Alcohol and Drug Abuse Patient Records regulations: The Federal rules restrict any use of the information to criminally investigate or prosecute any alcohol or drug abuse patient.[facility] CenterIn the event this information is protected by the Federal Confidentiality of Alcohol and Drug Abuse Patient Records regulations: The Federal rules restrict any use of the information to criminally investigate or prosecute any alcohol or drug abuse patient.[facility] CenterIn the event this information is protected by the Federal Confidentiality of Alcohol and Drug Abuse Patient Records regulations: The Federal rules restrict any use of the information to criminally investigate or prosecute any alcohol or drug abuse patient.[facility] CenterIn the event this information is protected by the Federal Confidentiality of Alcohol and Drug Abuse Patient Records regulations: The Federal rules restrict any use of the information to criminally investigate or prosecute any alcohol or drug abuse patient.[facility] CenterIn the event this information is protected by the Federal Confidentiality of Alcohol and Drug Abuse Patient Records regulations: The Federal rules restrict any use of the information to criminally investigate or prosecute any alcohol or drug abuse patient.[facility] CenterIn the event this information is protected by the Federal Confidentiality of Alcohol and Drug Abuse Patient Records regulations: The Federal rules restrict any use of the information to criminally investigate or prosecute any alcohol or drug abuse patient.[facility] CenterIn the event this information is protected by the Federal Confidentiality of Alcohol and Drug Abuse Patient Records regulations: The Federal rules restrict any use of the information to criminally investigate or prosecute any alcohol or drug abuse patient.[facility] CenterIn the event this information is protected by the Federal Confidentiality of Alcohol and Drug Abuse Patient Records regulations: The Federal rules restrict any use of the information to criminally investigate or prosecute any alcohol or drug abuse patient.[facility] CenterIn the event this information is protected by the Federal Confidentiality of Alcohol and Drug Abuse Patient Records regulations: The Federal rules restrict any use of the information to criminally investigate or prosecute any alcohol or drug abuse patient.[facility] CenterIn the event this information is protected by the Federal Confidentiality of Alcohol and Drug Abuse Patient Records regulations: The Federal rules restrict any use of the information to criminally investigate or prosecute any alcohol or drug abuse patient.[facility] CenterIn the event this information is protected by the Federal Confidentiality of Alcohol and Drug Abuse Patient Records regulations: The Federal rules restrict any use of the information to criminally investigate or prosecute any alcohol or drug abuse patient.[facility] CenterIn the event this information is protected by the Federal Confidentiality of Alcohol and Drug Abuse Patient Records regulations: The Federal rules restrict any use of the information to criminally investigate or prosecute any alcohol or drug abuse patient.[facility] CenterIn the event this information is protected by the Federal Confidentiality of Alcohol and Drug Abuse Patient Records regulations: The Federal rules restrict any use of the information to criminally investigate or prosecute any alcohol or drug abuse patient.[facility] CenterIn the event this information is protected by the Federal Confidentiality of Alcohol and Drug Abuse Patient Records regulations: The Federal rules restrict any use of the information to criminally investigate or prosecute any alcohol or drug abuse patient.[facility] CenterIn the event this information is protected by the Federal Confidentiality of Alcohol and Drug Abuse Patient Records regulations: The Federal rules restrict any use of the information to criminally investigate or prosecute any alcohol or drug abuse patient.[facility] Care Teams (unrecognized sec tion and content) Collarette Separator Relationship Specialty Start Date End Date Jennifer Santos MD [address] [place] [address] PCP - General Internal Medicine 04/15/21 Collarette Separator Relationship Specialty Start Date End Date Jennifer Santos MD [address] [place] [address] PCP - General Internal Medicine 04/15/21 Collarette Separator Relationship Specialty Start Date End Date Jennifer Santos MD [address] [place] [address] PCP - General Internal Medicine 04/15/21 Collarette Separator Relationship Specialty Start Date End Date Jennifer Santos MD [address] [place] [address] PCP - General Internal Medicine 04/15/21 Collarette Separator Relationship Specialty Start Date End Date Jennifer Santos MD [address] [place] [address] PCP - General Internal Medicine 04/15/21 Collarette Separator Relationship Specialty Start Date End Date Jennifer Santos MD [address] [place] [address] PCP - General Internal Medicine 04/15/21 Collarette Separator Relationship Specialty Start Date End Date Jennifer Santos MD [address] [place] [address] PCP - General Internal Medicine 04/15/21 Collarette Separator Relationship Specialty Start Date End Date Jennifer Santos MD [address] [place] [address] PCP - General Internal Medicine 04/15/21 Collarette Separator Relationship Specialty Start Date End Date Jennifer Santos MD [address] [place] [address] PCP - General Internal Medicine 04/15/21 Collarette Separator Relationship Specialty Start Date End Date Jennifer Santos MD [address] [place] [address] PCP - General Internal Medicine 04/15/21 Collarette Separator Relationship Specialty Start Date End Date Jennifer Santos MD [address] [place] [address] PCP - General Internal Medicine 04/15/21 Collarette Separator Relationship Specialty Start Date End Date Jennifer Santos MD [address] [place] [address] PCP - General Internal Medicine 04/15/21 Collarette Separator Relationship Specialty Start Date End Date Jennifer Santos MD [address] [place] [address] PCP - General Internal Medicine 04/15/21 Collarette Separator Relationship Specialty Start Date End Date Jennifer Santos MD [address] [place] [address] PCP - General Internal Medicine 04/15/21 Collarette Separator Relationship Specialty Start Date End Date Jennifer Santos MD [address] [place] [address] PCP - General Internal Medicine 04/15/21 Collarette Separator Relationship Specialty Start Date End Date Jennifer Santos MD [address] [place] [address] PCP - General Internal Medicine 04/15/21 Team [...] Status: Inactive Member Role Status Dates Dr. Jennifre Santos MD Primary Care Provider Active 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 Collarette Separator Relationship Specialty Start Date End Date Jennifer Santos MD [address] [place] [address] PCP - General Internal Medicine 04/15/21 Collarette Separator Relationship Specialty Start Date End Date Jennifer Santos MD [address] [place] [address] PCP - General Internal Medicine 04/15/21 Collarette Separator Relationship Specialty Start Date End Date Jennifer Santos MD [address] [place] [address] PCP - General Internal Medicine 04/15/21 Collarette Separator Relationship Specialty Start Date End Date Jennifer Santos MD [address] [place] [address] PCP - General Internal Medicine 04/15/21 Collarette Separator Relationship Specialty Start Date End Date Jennifer Santos MD [address] [place] [address] PCP - General Internal Medicine 04/15/21 Collarette Separator Relationship Specialty Start Date End Date Jennifer Santos MD [address] [place] [address] PCP - General Internal Medicine 04/15/21 Collarette Separator Relationship Specialty Start Date End Date Jennifer Santos MD [address] [place] [address] PCP - General Internal Medicine 04/15/21 Collarette Separator Relationship Specialty Start Date End Date Jennifer Santos MD [address] [place] [address] PCP - General Internal Medicine 04/15/21 Collarette Separator Relationship Specialty Start Date End Date Jennifer Santos MD [address] [place] [address] PCP - General Internal Medicine 04/15/21 Collarette Separator Relationship Specialty Start Date End Date Jennifer Santos MD [address] [place] [address] PCP - General Internal Medicine 04/15/21 Collarette Separator Relationship Specialty Start Date End Date Jennifer Santos MD [address] [place] [address] PCP - General Internal Medicine 04/15/21 Kelle Peter APRN.[employer]ICE [employer] [address] [place] [address] Distribution Warehouse Manager Internal Medicine 05/22/24 Collarette Separator Relationship Specialty Start Date End Date Jennifer Santos MD [address] [place] [address] PCP - General Internal Medicine 04/15/21 Kelle Peter APRN.[employer] [address] [place] [address] Distribution Warehouse Manager Internal Medicine 05/22/24 Collarette Separator Relationship Specialty Start Date End Date Jennifer Santos MD [address] [place], [place] [address] PCP - General Internal Medicine 04/15/21 Older, Kelle ROLL SCALE MAN.[employer] [address] [place], [place] [address] Distribution Warehouse Manager Internal Medicine 05/22/24 Collarette Separator Relationship Specialty Start Date End Date Jennifer Santos MD [address] [place], [place] [address] PCP - General Internal Medicine 04/15/21 Older, Kelle, [employer]LL SCALE MAN.[employer] [address] [place], [place] [id number] Distribution Warehouse Manager Internal Medicine 05/22/24 Team Status: Active Member [...] 03, 2025 End: January 03, 2025 Ki KNAPP PA Attending Provider Active Start: January 03, 2025 End: January 03, 2025 Team Status: Active Member Role/Relationship Status Dates Dr. Jennifer Santos MD Primary care physician Active Team Status: Inactive Member Role/Relationship Status Dates Dr. Jennifer Santos MD Primary care physician Active Start: January 03, 2025 End: January 03, 2025 Dr. Jennifer Santos MD Referring Provider Active Start: January 03, 2025 End: January 03, 2025 Ki KNAPP PA Attending physician Active Start: January 03, 2025 End: January 03, 2025 Team Status: Inactive Member Role/Relationship Status Dates Dr. Jennifer Santos MD Primary care physician Active Start: April 04, 2025 End: April 04, 2025 Dr. Teodoro Daley MD Attending physician Active St art: April 04, 2025 End: April 04, 2025 Dr. Teodoro Daley MD Emergency Department Physician Acti ve Start: April 04, 2025 End: April 04, 2025 Team Status: Active Member Role/Relationship Status Dates Dr. Jennifer Santos MD Primary care physician Active Start: April 04, 2025 Dr. Bran Alston MD Attending physician Active Start: April 04, 2025 Dr. Teodoro Daley MD Referring Provider Active Sta rt: April 04, 2025 Team Status: Inactive Member Role/Relationship Status Dates Dr. Jennifre Santos MD Primary care physician Active Start: April 07, 2025 End: April 07, 2025 Dr. Venkat Mustafa MD Emergency Depart ment Physician Active Start: April 07, 2025 End: April 07, 2025 Dr. Milo Celaya DO Admitting physician Active Start: April 07, 2025 End: April 07, 2025 Dr. Milo Celaya DO Nurse Practitioner Active Start: April 07, 2025 End: April 07, 2025 Neville Benito MD Nurse Practitioner Active Start : April 07, 2025 End: April 07, 2025 Dr. Penny Mahoney MD Nurse Practitioner Active St art: April 07, 2025 End: April 07, 2025 Renée Hou MD Nurse Practitioner Active S tart: April 07, 2025 End: April 07, 2025 Dr. Chey Baker DO Nurse Practitioner Active Start: April 07, 2025 End: April 07, 2025 Dr. Neeru Garcia MD Nurse Practitioner Active St art: April 07, 2025 End: April 07, 2025 Dr. Phil Doll MD Nurse Practitioner Active Start: April 07, 2025 End: April 07, 2025 Dr. Brit Andrew MD Nurse Practitioner Active S tart: April 07, 2025 End: April 07, 2025 Dr. Melvin Gabriel MD Nurse Practitioner Active St art: April 07, 2025 End: April 07, 2025 Dr. Pipe Venegas MD Nurse Practitioner Active S tart: April 07, 2025 End: April 07, 2025 Dr. Dalton Gross MD Nurse Practitioner Active Start: April 07, 2025 End: April 07, 2025 Dr. Bernadette Rodriguez DO Nurse Practitioner Active Start: April 07, 2025 End: April 07, 2025 Sara Brar MD Nurse Practitioner Active S tart: April 07, 2025 End: April 07, 2025 Dr. Tom Bach MD Nurse Practitioner Active Start: April 07, 2025 End: April 07, 2025 Dr. Chayo Taylor MD Nurse Practitioner Active S tart: April 07, 2025 End: April 07, 2025 Dr. Nick Clay MD Nurse Practitioner Active Start: April 07, 2025 End: April 07, 2025 Dr. Lien Putnam MD Nurse Practitioner Active Start: April 07, 2025 End: April 07, 2025 Dr. Alen Gray MD Nurse Practitioner Active Start: April 07, 2025 End: April 07, 2025 Dr. Jennifer Norris MD Nurse Practitioner Active Start: April 07, 2025 End: April 07, 2025 Dr. Derick Brink MD Nurse Practitioner Active Start: April 07, 2025 End: April 07, 2025 Dr. Mikki Matute MD Nurse Practitioner Active St art: April 07, 2025 End: April 07, 2025 Shaniqua Blake MD Nurse Practitioner Active St art: April 07, 2025 End: April 07, 2025 Dr. Bran Courtney , Attending physician Active Start: April 07, 2025 End: April 07, 2025 Team Status: Active Member Role/Relationship Status Dates Dr. Jennifer Santos MD Primary care physician Active Start: April 07, 2025 Dr. 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 [employer] provides no warranty or guarantee of the accuracy or completeness of information in this document.
--- NOTE | 2025-04-26 19:48 | PCM.HP.STD ---
[facility] - General General Date of Admission: 04/26/25 Date of Service: 04/26/25 Chief Complaint: Swelling and redness of the left arm and hand, water blisters on right hand and wrist HPI Harmony FRANKS, is a 75 F who presents to the emergency room at [facility] for evaluation of swelling and redness of her left arm and hand which started yesterday. Patient also complains of areas of small water blisters on her right wrist and hand area. Patient was seen 48 hours ago in the emergency room for a scratch from her cat between her ring finger and little finger on her right hand, she was given a prescription for doxycycline for this. Patient states that last night she began having itching in her left hand and noticed that it was swelling, today the swelling had increased in the hand and gone up the left forearm into the left upper arm. Workup in the emergency room included a CBC which showed an elevated white count at 11.7, patient's chemistry profile was unremarkable, she had a slight elevation in her alkaline phosphatase and AST. Examination of the patient revealed severe edema of the left hand, and left arm along with redness and warmth. Patient had a bruise over her left upper arm. There is no evidence of any fluid blisters on the left arm or left hand. Examination of the right hand revealed some blisters which were approximately 1-2 cm in diameter over her right wrist area and right hand, right hand was slightly edematous but this examiner did not appreciate any severe redness of her right hand. There was no evidence of any open area on her right hand and I could not appreciate where she was scratched by her cat. CT of the left upper extremity including hand was obtained, at the time of this dictation, an official read out has not been forthcoming. Patient will be admitted to [place] [id number] for cellulitis of the left arm, she will be maintained on vancomycin and Ancef, she will be given Benadryl in case some of this could be an allergic reaction. I had vascular surgery see the patient informally in the ER and it was recommended that the CT be obtained. He will see the patient again tomorrow. [facility] Medical History Depression with anxiety Obesity (BMI 30-39.9) Acute deep vein thrombosis (DVT) of left lower extremity Vaginal candidiasis Acute bronchitis, unspecified Kidney stones Pulmonary embolism Adult-onset Still's disease Depression Anxiety Breast cancer Endometriosis Bowel obstruction Home Medications Medication Instructions Recorded Last Taken Type alprazolam 0.25 mg tablet 0.25 mg PO TID PRN PRN Insomnia 08/16/14 Unknown History escitalopram oxalate 10 mg tablet 10 mg PO QHS anxiety 08/16/14 Unknown History apixaban 5 mg (74 tabs) tablets in See Rx Instructions .Route 04/04/25 04/26/25 Rx a dose pack (Eliquis DVT-PE Treat .COMPLEX blood thinner #74 tabs 30D Start) atorvastatin 40 mg tablet 40 mg PO QHS #30 tabs 04/07/25 Unknown Rx meclizine 12.5 mg tablet 12.5 mg PO TID PRN dizziness #14 04/07/25 Unknown Rx tabs doxycycline hyclate 100 mg capsule 100 mg PO BID #10 caps 04/24/25 Unknown Rx escitalopram oxalate 20 mg tablet 20 mg PO DAILY 04/24/25 Unknown History Allergy/AdvReac Type Severity Reaction Status Date / Time ampicillin Allergy Rash Verified 04/26/25 11:39 prednisone AdvReac SHAKINESS Verified 04/26/25 11:39 Family History no significant family his Surgical History H/O lumpectomy History of bowel resection History of colostomy reversal H/O: hysterectomy Social History household members: family housing: house Smoking Status: Never smoker ROS ROS Narrative Patient complains of increasing swelling in the left hand and left arm since yesterday. She also complained of fluid-filled blisters on the right wrist and right hand area. Constitutional Constitutional: Denies anorexia, change in weight, chills, fatigue, fever(s), night sweats or weakness Eyes Eyes: Denies blurry vision, change in vision, discharge from eye(s) or eye pain Cardiovascular Cardiovascular: Reports edema; Denies chest pain, claudication or palpitations Respiratory/Chest Respiratory/Chest: Denies cough, hemoptysis, shortness of breath at rest or shortness of breath with exertion Gastrointestinal Gastrointestinal: Denies abdominal pain, constipation, diarrhea, hematemesis, hematochezia, melena, nausea or vomiting Genitourinary Genitourinary: Denies dysuria, hematuria, urinary frequency, urinary hesitancy, urinary incontinence or urinary urgency Musculoskeletal Musculoskeletal: Denies back pain, joint pain, joint stiffness, joint swelling, myalgias or neck pain Neurologic Neurologic: Denies abnormal gait, abnormal speech, dizziness, focal weakness, headache(s), loss of vision, numbness, other visual disturbances, paresthesias, syncope or tingling Psychiatric Psychiatric: Denies anxiety, cognitive impairment, depression, irritability, mood swings or suicidal ideation Endocrine Endocrinology: Denies change in body appearance, cold intolerance, excessive sweating, heat intolerance, polydipsia or polyuria Hematologic/Lymphatic Hematologic/Lymphatic: Denies none, anemia, easy bleeding, easy bruising or lymphadenopathy Allergic/Immunologic Allergic/Immunologic: Denies rhinitis, urticaria, eczemia or asthma Vital Signs Vital Signs Vital Signs: 04/26/25 11:37 04/26/25 13:37 04/26/25 14:11 Temperature 98.4 F 98.4 F Temperature Source Oral Oral Pulse Rate 98 80 79 Respiratory Rate 16 18 Blood Pressure 137/91 H 167/71 H 167/71 H Blood Pressure Mean 106 103 103 Pulse Ox 98 100 100 Oxygen Delivery Method Room Air Room Air 04/26/25 15:00 04/26/25 15:00 04/26/25 15:57 Temperature 98.4 F Temperature Source Oral Pulse Rate 87 Respiratory Rate 18 Blood Pressure 175/80 H 175/80 H Blood Pressure Mean 111 111 Pulse Ox 97 96 Oxygen Delivery Method Room Air Room Air 04/26/25 16:00 04/26/25 16:34 04/26/25 17:00 Temperature 98.4 F 98.4 F Temperature Source Oral Pulse Rate 82 82 91 Respiratory Rate 18 18 18 Blood Pressure 169/97 H 169/97 H Blood Pressure Mean 121 121 Pulse Ox 96 96 99 Oxygen Delivery Method Room Air Room Air 04/26/25 18:53 Temperature Temperature Source Pulse Rate 94 Respiratory Rate 16 Blood Pressure 177/93 H Blood Pressure Mean 121 Pulse Ox 98 Oxygen Delivery Method Room Air Weight Weight: 89.528 kg Body Mass Index (BMI) 36.1 Physical Exam Const alert, oriented x3, no apparent distress, average body habitus and healthy appearing General Appearance: cooperative, well kempt and well developed Orientation / Consciousness: awake, oriented to person, oriented to place and oriented to time HEENT normocephalic, head/scalp atraumatic, hearing grossly normal bilaterally and moist oral mucous membranes Eyes PERRL, EOMs intact bilaterally and conjunctivae normal Neck supple, no JVD, thyroid normal and no carotid bruits General: trachea midline Resp normal respiratory effort, no retractions, no use of accessory muscles and clear to auscultation bilaterally Auscultation: Negative for rales, rhonchi or wheezes Cardio regular rate, regular rhythm, S1 normal heart sound, S2 normal heart sound, no murmurs, no rub and no gallops GI normal to inspection, nondistended, normoactive bowel sounds, soft to palpation, non-tender and non-distended Extremity Extremity Narrative: There was generalized edema and redness with warmth of the left hand, left forearm, and distal upper arm, there was also noted to be bullous-blisters located on the right wrist and right hand area, patient is not able to make a full fist on the left Skin Skin Narrative: Left arm and left hand are very edematous, there was noted to be bullae over the patient's right wrist and right hand area, there is redness and warmth of the left arm and left hand Neuro oriented x3, CN's II-XII intact bilaterally, moves all extremities, no focal motor deficits and no sensory deficits noted Sensorium / Orientation: awake and alert Speech: speech normal Psych affect normal Results Lab / Micro Data 04/26/25 15:45 04/26/25 15:06 Labs: Laboratory Results - last 24 hr 04/26/25 15:06: Sodium 137, Potassium 4.2, Chloride 105, Carbon Dioxide 18.8 L, Anion Gap 13, BUN 11, Creatinine 0.80, Estim Creat Clear Calc 63.18, Est GFR (MDRD) Non-Af 77, BUN/Creatinine Ratio 13.1, Glucose 96, Calcium 9.0, Total Bilirubin 0.75, AST 36 H, ALT 31, Alkaline Phosphatase 105 H, Total Protein 6.8, Albumin 3.7, Globulin 3.2, Albumin/Globulin Ratio 1.2 04/26/25 15:45: WBC 11.7 H, RBC 4.34, Hgb 13.5, Hct 40.5, MCV 93.3, MCH 31.1, MCHC 33.3, RDW Std Deviation 42.6, RDW Coeff of Funmi 12.4, Plt Count 283, MPV 11.2, Immature Gran % (Auto) 0.300, Neut % (Auto) 81.7 H, Lymph % (Auto) 11.2 L, [place] % (Auto) 4.6, Eos % (Auto) 2.0, Baso % (Auto) 0.2, Absolute Neuts (auto) 9.6 H, Absolute Lymphs (auto) 1.31, Nucleated RBC % 0, PT 16.3 H, INR 1.3, APTT 31.0, Lactic Acid 1.0 Imaging Radiology Impression Hand X-Ray 04/26/25 15:35 IMPRESSION: No acute fracture or dislocations. Scattered mild degenerative changes. Extensive soft tissue edema/inflammation about the dorsal aspect of the hand. No radiographic foreign body. Reading Location: [facility] Hand X-Ray 04/26/25 15:37 IMPRESSION: No acute fracture or dislocations. Scattered mild degenerative changes. Moderate soft tissue edema/inflammation about the right head, less compared to left hand. No radiographic foreign body. Reading Location: [facility] Assessment & Plan Assessment/Plan (1) Cellulitis of arm, left: PLAN: Plan 1. Cellulitis of the left arm/hand-etiology unclear at this point-patient did have what appeared to be lab draws or IV puncture sites in the left arm from her previous emergency room visit 2 days ago. Patient will be admitted to [place] [address] and maintain on IV Ancef and vancomycin, patient will be seen in consultation by infectious diseases, lab will be monitored #2 bullae of the right hand-etiology unclear at this point, again patient will be on IV antibiotics and I have elected to place the patient on 25 mg of Benadryl 3 times daily in case some of what I am seeing is an allergic reaction. #3 chronic use of full anticoagulation due to past history of VTE this year-patient is on Eliquis and will continue it, I believe the bruise on her left upper arm is from a blood pressure cuff from her previous visit in the emergency room 2 days ago #4 hyperlipidemia-patient is on a statin #5 chronic depression-patient is on Lexapro Total clinical time spent by myself addressing the patient's medical issues, reviewing all of her data, and collaborating with patient's care team: 75 minutes Charges/Coding Visit Charges Inpatient E&M: 10979 Init Hosp L3 D/C Safety Score for UGIB Assessment Ana-Blatchford Bleeding Score (GBS): Stratifies upper GI bleeding patients who are "low-risk" and candidates for outpatient management. Hemoglobin, BUN, Recent Vital Signs: Hgb 13.5 g/dL (12.0-15.0) 04/26/25 15:45 BUN 11 mg/dL (4-19) 04/26/25 15:06 Pulse Rate 94 Blood Pressure 177/93 Score Interpretation: Score of 0: A GBS of 0 is a “Low Risk” GI bleed, and is highly sensitive (99.6% in a 2007 retrospective study) for predicting which patients did not require any “medical intervention”: blood transfusion, endoscopy, or surgery. This was confirmed in a 2009 [facility] study where patients with a score of 0 were actually discharged and had no GI bleeding mortality at 6 month followup Score above 0: A GBS greater than zero suggests a “High Risk” GI bleed that is likely to require “medical intervention”: transfusion, endoscopy, or surgery. A higher GBS also correlated with a higher likelihood of needing intervention Scores >/= 6 are associated with >50% risk of needing intervention D/C Safety Score for LGIB Assessment Assessment Tool: Readmission and adverse event risk in patients with acute lower GI bleeding. Hemoglobin and Recent Vital Signs: Hgb 13.5 g/dL (12.0-15.0) 04/26/25 15:45 Pulse Rate 94 04/26/25 18:53 Blood Pressure 177/93 04/26/25 18:53 Score Interpretation: Probability Percentage of safe discharge (absence of rebleeding, blood transfusion, therapeutic intervention, 28 day readmission, or ) Score of 8 or below: Consider discharge, with appropriate precautions. Score of 9 or above: Discharge NOT recommended. Consider admission with further workup and resuscitation as necessary.
[2025-04-26 20:11] LABS: Color, Urine Straw (Yellow); Glucose, Dipstick Normal (Normal); Ketone-Dipstick Negative (Negative); Leukocyte Esterase-Dipstick 25 /ul (Negative); Nitrite-Dipstick Negative (Negative); Occult Blood-Urine Negative /ul (Negative); Protein-Dipstick Negative (Negative); Specific Gravity, Urine 1.010 (1.002-1.030); Urine Bilirubin Dipstick Negative (Negative)
[2025-04-26] MEDS: APIXABAN 5 MG TABLET PO (20:46)
[2025-04-26] MEDS: 0.9% Normal Saline (250mL Bag) 250 ML 15 ML IV (20:55)
[2025-04-26] MEDS: Cefazolin 2 GM in 0.9% Normal Saline (100mL Bag) 100 ML IV (21:01)
[2025-04-26] MEDS: 0.9% Saline Lock 10 ML Syringe IV (21:03)
--- NOTE | 2025-04-26 21:38 | PCM.RX.CS ---
Consult Antibiotic Management Pharmacy has been consulted to manage selected antibiotic: Vancomycin Type of Intervention Type of Consult: New start Labs Labs: Sodium 137 mmol/L (133-145) 04/26/25 15:06 Potassium 4.2 mmol/L (3.3-5.1) 04/26/25 15:06 Chloride 105 mmol/L (98-108) 04/26/25 15:06 Carbon Dioxide 18.8 mmol/L (21.0-32.0) L 04/26/25 15:06 Anion Gap 13 (5-15) 04/26/25 15:06 BUN 11 mg/dL (4-19) 04/26/25 15:06 Creatinine 0.80 mg/dL (0.70-1.20) 04/26/25 15:06 Est GFR (MDRD) Non-Af 77 (>60) 04/26/25 15:06 BUN/Creatinine Ratio 13.1 RATIO (10-20) 04/26/25 15:06 Glucose 96 mg/dL (70-99) 04/26/25 15:06 Dosing Weight Weight used for dosin.7 kg Estimated Creatinine Clearance Estimated Creatinine Clearance: 63 Goal Trough Goal Trough: 10-15 mcg/mL Pharmacy Plan for Drug Dosing Pharmacy Plan for Drug Dosing: Pharmacy Service will continue to monitor and adjust dosing as required. INITIAL DOSE 1250MG GIVEN 04/26 @ 4796. START 750MG Q12H AND DRAW TROUGH PRIOR TO 4TH DOSE Follow-Up Labs Follow-Up Labs: Trough: Vancomycin Date/Time Labs Ordered Labs to be done on [date and time ordered]: 04/28 @ 0500
[2025-04-26 21:51] LABS: Squamous Epithelial Cells - UA 0-5 SEEN /hpf (5-10)
[2025-04-27 04:22] VITALS: BP 147/82; PULSE 92; RESP 18; TEMP 36.9; O2SAT 100
[2025-04-27] MEDS: Cefazolin 2 GM in 0.9% Normal Saline (100mL Bag) 100 ML IV ×3 (05:36→22:01)
[2025-04-27] MEDS: Vancomycin HCl 750 MG in 0.9% Normal Saline (250mL Bag) 250 ML 250 MG IV (06:19)
[2025-04-27 07:56] VITALS: BP 167/88; PULSE 92; RESP 18; TEMP 36.8; O2SAT 97
[2025-04-27] MEDS: APIXABAN 5 MG TABLET PO ×2 (09:11→22:00)
--- NOTE | 2025-04-27 10:09 | NURSING ---
Patients IV assessed. student worker noted redness and swelling. IV in LAC discontinued and dressing placed over IV site. Left arm elevated. Per Dr. Lizama patient may have IV in right arm even though she had a lumpectomy on the right 7 years ago. Charge nurse notifed of interaction with patient, Dr. Lizama and new IV in RFA
--- NOTE | 2025-04-27 10:18 | PCM.CONS.GEN ---
Assessment & Plan Assessment/Plan (1) Cellulitis of hand, right: (2) Cellulitis of arm, left: (3) Cat scratch: PLAN: R hand cat scratch on 04/22. Suspect bilat hand itching, blistering, redness, and swelling is a reaction to the po doxycycline. No fever. Will stop vanc, continue cefazolin for now, will add flagyl. Will follow, thank you HPI Consult Data Date of Consult: 04/27/25 HPI Narrative Reason for Consultation: cellulitis HPI Narrative: KIKI FRANKS, is a 75 F who presented to ED 04/26 with bilateral hand swelling, itching, and blister formation. Had scratch on R hand on 04/22 by her daughter's indoor cat. Seen in ED 04/24 with R hand swelling, sent home with po doxy. No fever, feeling ok. Admitted on vanc and cefazolin. H/o rash with ampicillin. Full ROS performed and neg except as noted above. [facility] Medical History Depression with anxiety Obesity (BMI 30-39.9) Acute deep vein thrombosis (DVT) of left lower extremity Vaginal candidiasis Acute bronchitis, unspecified Kidney stones Pulmonary embolism Adult-onset Still's disease Depression Anxiety Breast cancer Endometriosis Bowel obstruction Home Medications Medication Instructions Recorded Last Taken Type alprazolam 0.25 mg tablet 0.25 mg PO TID PRN PRN Insomnia 08/16/14 Unknown History apixaban 5 mg (74 tabs) tablets in See Rx Instructions .Route 04/04/25 04/26/25 Rx a dose pack (Eliquis DVT-PE Treat .COMPLEX blood thinner #74 tabs 30D Start) atorvastatin 40 mg tablet 40 mg PO QHS hld #30 tabs 04/07/25 Unknown Rx meclizine 12.5 mg tablet 12.5 mg PO TID PRN dizziness #14 04/07/25 Unknown Rx tabs doxycycline hyclate 100 mg capsule 100 mg PO BID #10 caps 04/24/25 Unknown Rx escitalopram oxalate 20 mg tablet 20 mg PO DAILY see 04/24/25 Unknown History Allergy/AdvReac Type Severity Reaction Status Date / Time ampicillin Allergy Rash Verified 04/26/25 11:39 prednisone AdvReac SHAKINESS Verified 04/26/25 11:39 Family History no significant family his Surgical History H/O lumpectomy History of bowel resection History of colostomy reversal H/O: hysterectomy Social History household members: family housing: house Smoking Status: Never smoker Physical Exam Const alert, oriented x3 and no apparent distress General Appearance: cooperative HEENT normocephalic and head/scalp atraumatic Eyes PERRL and EOMs intact bilaterally Neck supple and No nodes Resp normal air movement and clear to auscultation bilaterally Cardio regular rate and regular rhythm GI soft to palpation, non-tender and non-distended Extremity General Extremity: edema Skin Skin Narrative: bilat hand and forearm swelling, redness, serous bulla. Neuro CN's II-XII intact bilaterally Lab / Micro Data Attestation: I reviewed the patient's lab results. 04/26/25 15:45 04/26/25 15:06 Labs: Laboratory Results - last 24 hr 04/26/25 15:06: Sodium 137, Potassium 4.2, Chloride 105, Carbon Dioxide 18.8 L, Anion Gap 13, BUN 11, Creatinine 0.80, Estim Creat Clear Calc 63.18, Est GFR (MDRD) Non-Af 77, BUN/Creatinine Ratio 13.1, Glucose 96, Calcium 9.0, Total Bilirubin 0.75, AST 36 H, ALT 31, Alkaline Phosphatase 105 H, Total Protein 6.8, Albumin 3.7, Globulin 3.2, Albumin/Globulin Ratio 1.2 04/26/25 15:45: WBC 11.7 H, RBC 4.34, Hgb 13.5, Hct 40.5, MCV 93.3, MCH 31.1, MCHC 33.3, RDW Std Deviation 42.6, RDW Coeff of Funmi 12.4, Plt Count 283, MPV 11.2, Immature Gran % (Auto) 0.300, Neut % (Auto) 81.7 H, Lymph % (Auto) 11.2 L, [place] % (Auto) 4.6, Eos % (Auto) 2.0, Baso % (Auto) 0.2, Absolute Neuts (auto) 9.6 H, Absolute Lymphs (auto) 1.31, Nucleated RBC % 0, PT 16.3 H, INR 1.3, APTT 31.0, Lactic Acid 1.0 04/26/25 18:48: Urine Color Straw, Urine Clarity Clear, Urine pH 7.0, Ur Specific [place] 1.010, Urine Protein Negative, Urine Glucose (UA) Normal, Urine Ketones Negative, Urine Occult Blood Negative, Urine Nitrite Negative, Urine Bilirubin Negative, Urine Urobilinogen Normal, Ur Leukocyte Esterase 25 H, Urine RBC 0 SEEN, Urine WBC 0-5 SEEN, Ur Squamous Epith Cells 0-5 SEEN, Urine Bacteria 1+, Urine Mucus 0 SEEN Imaging Radiology Impression Hand X-Ray 04/26/25 15:35 IMPRESSION: No acute fracture or dislocations. Scattered mild degenerative changes. Extensive soft tissue edema/inflammation about the dorsal aspect of the hand. No radiographic foreign body. Reading Location: [facility] Hand X-Ray 04/26/25 15:37 IMPRESSION: No acute fracture or dislocations. Scattered mild degenerative changes. Moderate soft tissue edema/inflammation about the right head, less compared to left hand. No radiographic foreign body. Reading Location: [facility] Upper Extremity CT 04/26/25 18:25 IMPRESSION: 1. No acute or aggressive osseous abnormality. 2. Nonspecific generalized subcutaneous edema, possibly with cellulitic changes. 3. No drainable fluid collection/abscess or subcutaneous emphysema visualized. Reading Location: [facility]
--- NOTE | 2025-04-27 10:44 | CASEMGMT ---
Social Work SW met with pt to discuss advance directives. Pt states that she and her dgt and granddgt have an appointment with an computer systems auditor to complete documents. ZHOU educated pt that SW can assist with HCPOA and Living will, but not other legal documents. ZHOU provided pt with "You Have a Choice" information booklet on advance directives and an Advance Directive Rack Card. Pt appreciative of information and states she will speak with her dgt about options. SAVAGE Horta
[2025-04-27 11:41] VITALS: BP 128/67; PULSE 90; RESP 18; TEMP 36.4; O2SAT 97
--- NOTE | 2025-04-27 12:25 | VDUE_ITS ---
Reason For Study Reason For Study: LUE Swelling Left Proximal Left jugular vein is spontaneous, widely patent, phasic, with no intraluminal echogenicity noted. Left subclavian vein is spontaneous, widely patent, phasic, with no intraluminal echogenicity noted. Left Arm Left axillary vein is spontaneous, patent, phasic, competent, compressible and demonstrates augmentation. Left brachial vein is compressible. Left cephalic vein is compressible. Left basilic vein is compressible. Left Lower Arm Left radial vein is compressible. Left ulnar vein is compressible. Procedure This was a unilateral left upper extremity venous doppler examination. Exam performed in department. A preliminary report was called and/or faxed to [facility]. VL/Venous Duplex US, Unilateral Interpretation Summary Deep veins of the left upper extremity are patent and compressible segmentally. There is no evidence of deep vein thrombosis. The superficial veins of the left upper extremity, the basilic and cephalic veins, are patent and compressible. There is no evidence of left upper extremity superficial thrombop hlebitis involving the veins imaged. Ordering Physician: Callie Lizama Referring Physician: Nata Rea Performed By: Chandler Kessler, RVT ???
--- NOTE | 2025-04-27 12:49 | EX.PCM.CON.S ---
Assessment & Plan Assessment/Plan (1) Edema of left upper extremity: (2) History of deep vein thrombosis: PLAN: Plan LUE duplex was negative for DVT. Arterial exam is normal. No apparent vascular etiology for her symptoms at this time. Will continue to be available if new symptoms/concerns arise. HPI Consult Data Date of Consult: 04/27/25 HPI Narrative HPI Narrative: KIKI FRANKS, is a 75 F who presented to the [facility] ER with LUE edema and worsening erythema/blistering on her bilateral arms after a R hand cat scratch. She was on doxycycline at home. She was admitted and placed on IV antibiotics. Upper extremity CT did not reveal any focal abscess, showed only subcutaneous edema. She was seen by ID who though perhaps some of the worsened blistering/erythema could be reaction to doxycycline. She has a history of recent lower extremity DVT for which she has been on Eliquis, just finishing up her first month of therapy. She reports she has not missed any doses. She has never had any prior upper extremity DVT. [facility] Medical History Depression with anxiety Obesity (BMI 30-39.9) Acute deep vein thrombosis (DVT) of left lower extremity Vaginal candidiasis Acute bronchitis, unspecified Kidney stones Pulmonary embolism Adult-onset Still's disease Depression Anxiety Breast cancer Endometriosis Bowel obstruction Home Medications Medication Instructions Recorded Last Taken Type alprazolam 0.25 mg tablet 0.25 mg PO TID PRN PRN Insomnia 08/16/14 Unknown History apixaban 5 mg (74 tabs) tablets in See Rx Instructions .Route 04/04/25 04/26/25 Rx a dose pack (Eliquis DVT-PE Treat .COMPLEX blood thinner #74 tabs 30D Start) atorvastatin 40 mg tablet 40 mg PO QHS hld #30 tabs 04/07/25 Unknown Rx meclizine 12.5 mg tablet 12.5 mg PO TID PRN dizziness #14 04/07/25 Unknown Rx tabs doxycycline hyclate 100 mg capsule 100 mg PO BID #10 caps 04/24/25 Unknown Rx escitalopram oxalate 20 mg tablet 20 mg PO DAILY see 04/24/25 Unknown History Allergy/AdvReac Type Severity Reaction Status Date / Time ampicillin Allergy Rash Verified 04/26/25 11:39 prednisone AdvReac SHAKINESS Verified 04/26/25 11:39 Family History no significant family his Surgical History H/O lumpectomy History of bowel resection History of colostomy reversal H/O: hysterectomy Social History household members: family housing: house Smoking Status: Never smoker Physical Exam Const alert, oriented x3 and no apparent distress General Appearance: cooperative and comfortable HEENT normocephalic, head/scalp atraumatic, hearing grossly normal bilaterally, external ears normal and external nose normal Eyes General Eye: normal appearance of both eyes Neck General: normal visual inspection and trachea midline Resp normal respiratory effort Effort and Inspection: able to speak in complete sentences; Negative for labored, grunting or audible wheezes Cardio regular rate Extremity Extremity Narrative: LUE with 1+ edema, erythema within marked area, intact blisters near the wrist. Palpable radial pulse. No varicosities. No discoloration other than marked erythematous areas distally and at the antecubital space. RUE with erythema within marked area and intact blisters near the wrist. Palpable radial pulse. Neuro oriented x3, moves all extremities and no focal motor deficits Psych mental status grossly normal Appearance: grossly normal Attitude: calm and engaged Activity / Motor Behavior: appropriate eye contact Speech: normal speech Lab / Micro Data 04/26/25 15:45 04/26/25 15:06 Labs: Laboratory Results - last 24 hr 04/26/25 15:06: Sodium 137, Potassium 4.2, Chloride 105, Carbon Dioxide 18.8 L, Anion Gap 13, BUN 11, Creatinine 0.80, Estim Creat Clear Calc 63.18, Est GFR (MDRD) Non-Af 77, BUN/Creatinine Ratio 13.1, Glucose 96, Calcium 9.0, Total Bilirubin 0.75, AST 36 H, ALT 31, Alkaline Phosphatase 105 H, Total Protein 6.8, Albumin 3.7, Globulin 3.2, Albumin/Globulin Ratio 1.2 04/26/25 15:45: WBC 11.7 H, RBC 4.34, Hgb 13.5, Hct 40.5, MCV 93.3, MCH 31.1, MCHC 33.3, RDW Std Deviation 42.6, RDW Coeff of Funmi 12.4, Plt Count 283, MPV 11.2, Immature Gran % (Auto) 0.300, Neut % (Auto) 81.7 H, Lymph % (Auto) 11.2 L, [place] % (Auto) 4.6, Eos % (Auto) 2.0, Baso % (Auto) 0.2, Absolute Neuts (auto) 9.6 H, Absolute Lymphs (auto) 1.31, Nucleated RBC % 0, PT 16.3 H, INR 1.3, APTT 31.0, Lactic Acid 1.0 04/26/25 18:48: Urine Color Straw, Urine Clarity Clear, Urine pH 7.0, Ur Specific [place] 1.010, Urine Protein Negative, Urine Glucose (UA) Normal, Urine Ketones Negative, Urine Occult Blood Negative, Urine Nitrite Negative, Urine Bilirubin Negative, Urine Urobilinogen Normal, Ur Leukocyte Esterase 25 H, Urine RBC 0 SEEN, Urine WBC 0-5 SEEN, Ur Squamous Epith Cells 0-5 SEEN, Urine Bacteria 1+, Urine Mucus 0 SEEN Imaging Radiology Impression Hand X-Ray 04/26/25 15:35 IMPRESSION: No acute fracture or dislocations. Scattered mild degenerative changes. Extensive soft tissue edema/inflammation about the dorsal aspect of the hand. No radiographic foreign body. Reading Location: [facility] Hand X-Ray 04/26/25 15:37 IMPRESSION: No acute fracture or dislocations. Scattered mild degenerative changes. Moderate soft tissue edema/inflammation about the right head, less compared to left hand. No radiographic foreign body. Reading Location: [facility] Upper Extremity CT 04/26/25 18:25 IMPRESSION: 1. No acute or aggressive osseous abnormality. 2. Nonspecific generalized subcutaneous edema, possibly with cellulitic changes. 3. No drainable fluid collection/abscess or subcutaneous emphysema visualized. Reading Location: [facility] Charges/Coding Visit Charges Inpatient E&M: 49312 Init Hosp L1
--- NOTE | 2025-04-27 14:22 | PCM.PROGNOTE ---
Subjective Subjective Patient seen and examined with her nurse by her bedside. She was admitted with a complaint of swelling and pain of her RUE due to cat scratch and is being managed for cellulitis of the RUE. She complains of pain and swelling in her LUE today. Her IV infiltrated in the LUE. She denied any fever or chills or any other symptoms. Review of systems is otherwise negative. Objective Data Objective Data Vital Signs: Vital Signs Temp Pulse Resp BP Pulse Ox O2 Del Method 97.6 F L 90 18 128/67 H 97 Room Air 04/27/25 11:41 04/27/25 11:41 04/27/25 11:41 04/27/25 11:41 04/27/25 11:41 04/27/25 11:41 Oxygen Delivery Method Room Air Weight: 197 lb 12.074 oz Body Mass Index (BMI) 36.1 Intake & Output: Intake and Output for Last 24 Hours 04/25/25 04/26/25 04/27/25 23:59 23:59 23:59 Intake Total 1435 / 1435 575 / 575 Balance 1435 / 1435 575 / 575 Lab / Micro Data 04/26/25 15:45 04/26/25 15:06 Labs: Laboratory Results - last 24 hr 04/26/25 15:06: Sodium 137, Potassium 4.2, Chloride 105, Carbon Dioxide 18.8 L, Anion Gap 13, BUN 11, Creatinine 0.80, Estim Creat Clear Calc 63.18, Est GFR (MDRD) Non-Af 77, BUN/Creatinine Ratio 13.1, Glucose 96, Calcium 9.0, Total Bilirubin 0.75, AST 36 H, ALT 31, Alkaline Phosphatase 105 H, Total Protein 6.8, Albumin 3.7, Globulin 3.2, Albumin/Globulin Ratio 1.2 04/26/25 15:45: WBC 11.7 H, RBC 4.34, Hgb 13.5, Hct 40.5, MCV 93.3, MCH 31.1, MCHC 33.3, RDW Std Deviation 42.6, RDW Coeff of Funmi 12.4, Plt Count 283, MPV 11.2, Immature Gran % (Auto) 0.300, Neut % (Auto) 81.7 H, Lymph % (Auto) 11.2 L, [place] % (Auto) 4.6, Eos % (Auto) 2.0, Baso % (Auto) 0.2, Absolute Neuts (auto) 9.6 H, Absolute Lymphs (auto) 1.31, Nucleated RBC % 0, PT 16.3 H, INR 1.3, APTT 31.0, Lactic Acid 1.0 04/26/25 18:48: Urine Color Straw, Urine Clarity Clear, Urine pH 7.0, Ur Specific [place] 1.010, Urine Protein Negative, Urine Glucose (UA) Normal, Urine Ketones Negative, Urine Occult Blood Negative, Urine Nitrite Negative, Urine Bilirubin Negative, Urine Urobilinogen Normal, Ur Leukocyte Esterase 25 H, Urine RBC 0 SEEN, Urine WBC 0-5 SEEN, Ur Squamous Epith Cells 0-5 SEEN, Urine Bacteria 1+, Urine Mucus 0 SEEN Radiography Diagnostic Testing: Radiology Impression Hand X-Ray 04/26/25 15:35 IMPRESSION: No acute fracture or dislocations. Scattered mild degenerative changes. Extensive soft tissue edema/inflammation about the dorsal aspect of the hand. No radiographic foreign body. Reading Location: [facility] Hand X-Ray 04/26/25 15:37 IMPRESSION: No acute fracture or dislocations. Scattered mild degenerative changes. Moderate soft tissue edema/inflammation about the right head, less compared to left hand. No radiographic foreign body. Reading Location: [facility] Upper Extremity CT 04/26/25 18:25 IMPRESSION: 1. No acute or aggressive osseous abnormality. 2. Nonspecific generalized subcutaneous edema, possibly with cellulitic changes. 3. No drainable fluid collection/abscess or subcutaneous emphysema visualized. Reading Location: [facility] Physical Exam Const alert, oriented x3 and no apparent distress General Appearance: cooperative HEENT normocephalic, head/scalp atraumatic, moist oral mucous membranes and oropharynx normal Eyes EOMs intact bilaterally Neck supple and no JVD Resp normal respiratory effort, normal air movement and clear to auscultation bilaterally Cardio regular rate, regular rhythm, S1 normal heart sound, S2 normal heart sound and no murmurs GI normal to inspection, nondistended, normoactive bowel sounds, soft to palpation and non-tender Extremity Extremity Narrative: LUE moderatedly edematous, with some blisters and erythema. Minimal tenderness. also has mild swelling and erythema over the RUE mainly the hand, with some blisters. Skin Skin Narrative: as under extremities Neuro no sensory deficits noted Motor Exam: general weakness Psych thought process normal, cooperative and affect normal Appearance: appropriate Assessment & Plan Assessment/Plan (1) Cellulitis of arm, left: (2) Cellulitis of hand: PLAN: Plan #Cellulitis of the her upper extremities due to cat scratch The cat scratch was on her right upper extremity but also has swelling of her left upper extremity now. She also has associated erythema Was started on IV vancomycin and cefazolin. ID consulted. Per ID, vancomycin discontinued. Continue cefazolin and add on Flagyl. Duplex ordered of the left upper extremities to evaluate for DVT. #History of venous thromboembolism: On Eliquis #Hyperlipidemia: On statin #Chronic depression: On Lexapro #History of breast cancer: S/p right-sided lumpectomy and radiation. Stable. DVT prophylaxis: Already on Eliquis Charges/Coding Visit Charges Inpatient E&M: 01475 Subs Hosp L2
[2025-04-27 15:50] VITALS: BP 118/78; PULSE 88; RESP 16; TEMP 36.8; O2SAT 94
[2025-04-27 20:19] VITALS: BP 168/100; PULSE 81; RESP 15; TEMP 36.6; O2SAT 97
[2025-04-27 23:00] VITALS: RESP 15
[2025-04-28 04:11] VITALS: BP 158/77; PULSE 79; RESP 15; TEMP 36.7; O2SAT 97
[2025-04-28 04:55] VITALS: RESP 15
[2025-04-28] MEDS: Cefazolin 2 GM in 0.9% Normal Saline (100mL Bag) 100 ML IV ×3 (06:22→22:23)
[2025-04-28 07:24] LABS: Hematocrit 40.5 % (37-47); Hemoglobin 13.3 g/dL (12.0-15.0); Immature Granulocytes Count 0.020 X10^3/uL (0.0-0.0); Mean Corp Hgb Conc 32.8 g/dL (32-36); Mean Corpuscular Volume 94.2 fL (81-99); Mean Platelet Vol. 11.1 fl (6.2-12.0); NRBC Flagged by Analyzer 0 % (0-5); Platelet Count 268 K/mm3 (150-450); RBC Distribution Width CV 12.4 % (11.6-14.6); RBC Distribution Width SD 42.9 fl (35.1-43.9); Red Blood Count 4.30 M/mm3 (4.2-5.4); White Blood Count 6.3 K/mm3 (4.4-11.0)
[2025-04-28 08:01] LABS: Anion Gap 10 (5-15); BUN 8 mg/dL (4-19); BUN/Creat Ratio 9.8 RATIO (10-20); Calcium,Total 8.6 mg/dL (7.6-11.0); Carbon Dioxide 22.9 mmol/L (21.0-32.0); Chloride 108 mmol/L (98-108); Estimated Creatinine Clearance 60.24 ml/min (50-250); Glucose 99 mg/dL (70-99); Potassium 3.6 mmol/L (3.3-5.1)
[2025-04-28 08:43] VITALS: BP 169/84; PULSE 89; RESP 16; TEMP 36.4; O2SAT 98
[2025-04-28] MEDS: APIXABAN 5 MG TABLET PO ×2 (10:06→20:49)
--- NOTE | 2025-04-28 12:07 | PN_ITS ---
Subjective Subjective Patient seen and examined with her nurse by her bedside. The swelling in her upper extremities had improved markedly. She denied any pain or any other complaints. Review of systems otherwise negative. Objective Data Objective Data Vital Signs: Vital Signs Temp Pulse Resp BP Pulse Ox O2 Del Method 97.5 F L 89 16 169/84 H 98 Room Air 04/28/25 08:43 04/28/25 08:43 04/28/25 08:43 04/28/25 08:43 04/28/25 08:43 04/28/25 08:46 Oxygen Delivery Method Room Air Weight: 197 lb 12.074 oz Body Mass Index (BMI) 36.1 Intake & Output: Intake and Output for Last 24 Hours 04/26/25 04/27/25 04/28/25 23:59 23:59 23:59 Intake Total 1435 / 1435 1395 / 1395 410 / 410 Balance 1435 / 1435 1395 / 1395 410 / 410 Lab / Micro Data 04/28/25 06:51 04/28/25 06:51 Labs: Laboratory Results - last 24 hr 04/28/25 06:51: WBC 6.3, RBC 4.30, Hgb 13.3, Hct 40.5, MCV 94.2, MCH 30.9, MCHC 32.8, RDW Std Deviation 42.9, RDW Coeff of Funmi 12.4, Plt Count 268, MPV 11.1, Immature Gran % (Auto) 0.300, Neut % (Auto) 67.9, Lymph % (Auto) 20.0, [place] % (Auto) 6.4, Eos % (Auto) 5.1 H, Baso % (Auto) 0.3, Absolute Neuts (auto) 4.2, Absolute Lymphs (auto) 1.25, Nucleated RBC % 0, Sodium 142, Potassium 3.6, Chloride 108, Carbon Dioxide 22.9, Anion Gap 10, BUN 8, Creatinine 0.84, Estim Creat Clear Calc 60.24, Est GFR (MDRD) Non-Af 72, BUN/Creatinine Ratio 9.8 L, Glucose 99, Calcium 8.6 Micro: Microbiology 04/26/25 18:48 Urine, Clean Catch Urine Culture - Preliminary Culture exhibits no growth. Radiography Diagnostic Testing: Radiology Impression Venous Doppler Study 04/27/25 12:25 Interpretation Summary Deep veins of the left upper extremity are patent and compressible segmentally. There is no evidence of deep vein thrombosis. The superficial veins of the left upper extremity, the basilic and cephalic veins, are patent and compressible. There is no evidence of left upper extremity superficial thrombophlebitis involving the veins imaged. Ordering Physician: Callie Lizama Referring Physician: Nata Rea Performed By: Chandler Kessler RVT ??? Physical Exam Const alert, oriented x3 and no apparent distress Constitutional Narrative: Class II obesity General Appearance: cooperative Orientation / Consciousness: awake HEENT normocephalic, head/scalp atraumatic, hearing grossly normal bilaterally, moist oral mucous membranes and oropharynx normal Eyes PERRL, EOMs intact bilaterally and conjunctivae normal Neck supple, no JVD, thyroid normal and no carotid bruits Resp normal respiratory effort, normal air movement, no retractions, no use of accessory muscles and clear to auscultation bilaterally Auscultation: Negative for rales, rhonchi or wheezes Cardio regular rate, regular rhythm, S1 normal heart sound, S2 normal heart sound and no murmurs GI normal to inspection, nondistended, normoactive bowel sounds, soft to palpation, non-tender and non-distended Extremity Extremity Narrative: LUE and RUE swelling and erythema have improved markedly. still has few blisters remaining but these are also improving. Skin Skin Narrative: as under extremities Neuro oriented x3, CN's II-XII intact bilaterally, moves all extremities, no focal motor deficits and no sensory deficits noted Sensorium / Orientation: awake and alert Speech: speech normal Motor Exam: general weakness Psych thought process normal, cooperative and affect normal Appearance: appropriate Assessment & Plan Assessment/Plan (1) Cellulitis of arm, left: (2) Cellulitis of hand: PLAN: Plan #Cellulitis of the her upper extremities due to cat scratch * The cat scratch was on her right upper extremity but also has swelling of her left upper extremity now. She also has associated erythema * Per ID, vancomycin discontinued. Continue cefazolin and add on Flagyl. * Duplex ordered of the left upper extremities to evaluate for DVT was negative for any evidence of DVT * #History of venous thromboembolism: On Eliquis #Hyperlipidemia: On statin #Chronic depression: On Lexapro #History of breast cancer: S/p right-sided lumpectomy and radiation. Stable. DVT prophylaxis: Already on Eliquis Charges/Coding Visit Charges Inpatient E&M: 61607 Subs Hosp L2
[2025-04-28] MEDS: 0.9% Saline Lock 10 ML Syringe IV ×2 (13:47→15:52)
--- NOTE | 2025-04-28 15:13 | PCM.PN.ID ---
Physical Exam Narrative Feeling better, hands less red, itchy, swollen. No fever. Const alert and no apparent distress General Appearance: cooperative Resp normal air movement and clear to auscultation bilaterally Cardio regular rate and regular rhythm GI soft to palpation, non-tender and non-distended Skin Skin Narrative: BUE less redness, improved swelling, still some blister formation ID ID: Route of nutrition/ use of supplements: [] Nutritional Intake: [] IV Site: [] Hernandez Catheter: [] Assessment & Plan Assessment/Plan (1) Cellulitis of hand, right: (2) Cellulitis of arm, left: (3) Cat scratch: PLAN: R hand cat scratch on 04/22. Suspect bilat hand itching, blistering, redness, and swelling is a reaction to the po doxycycline. No fever. Continue cefazolin and flagyl. Overall much improved today. Ok for home with keflex 500mg tid for 3 more days. Will follow
[2025-04-28 15:55] VITALS: BP 140/91; PULSE 79; RESP 16; TEMP 36.6; O2SAT 97
[2025-04-28 22:00] VITALS: BP 138/76; PULSE 75; RESP 16; TEMP 36.7; O2SAT 96
[2025-04-28 23:00] VITALS: RESP 16; O2SAT 97
[2025-04-29 04:00] VITALS: BP 177/84; PULSE 81; RESP 16; TEMP 36.4; O2SAT 97
[2025-04-29 04:30] LABS: Hematocrit 36.0 % (37-47); Hemoglobin 12.1 g/dL (12.0-15.0); Immature Granulocytes Count 0.020 X10^3/uL (0.0-0.0); Mean Corp Hgb Conc 33.6 g/dL (32-36); Mean Corpuscular Volume 94.0 fL (81-99); Mean Platelet Vol. 11.2 fl (6.2-12.0); NRBC Flagged by Analyzer 0 % (0-5); Platelet Count 257 K/mm3 (150-450); RBC Distribution Width CV 12.5 % (11.6-14.6); RBC Distribution Width SD 43.1 fl (35.1-43.9); Red Blood Count 3.83 M/mm3 (4.2-5.4); White Blood Count 7.3 K/mm3 (4.4-11.0)
[2025-04-29 05:04] LABS: Anion Gap 10 (5-15); BUN 10 mg/dL (4-19); BUN/Creat Ratio 12.6 RATIO (10-20); Calcium,Total 8.3 mg/dL (7.6-11.0); Carbon Dioxide 21.9 mmol/L (21.0-32.0); Chloride 110 mmol/L (98-108); Estimated Creatinine Clearance 60.96 ml/min (50-250); Glucose 105 mg/dL (70-99); Potassium 3.8 mmol/L (3.3-5.1)
[2025-04-29] MEDS: Cefazolin 2 GM in 0.9% Normal Saline (100mL Bag) 100 ML IV (05:56)
[2025-04-29 09:42] VITALS: BP 119/96; PULSE 88; RESP 18; TEMP 36.8; O2SAT 96
[2025-04-29] MEDS: APIXABAN 5 MG TABLET PO (09:45)
--- NOTE | 2025-04-29 11:02 | DCINST_ITS ---
Discharge Instructions DC O2, CPAP, BIPAP needs Home O2 Discharge instructions: No Dressing / Incision Discharge Activity: Return to Normal Activity Weight Bearing Status: Weight bearing as tolerated Dressing / Incision Call your doctor if you observe: Fever of 101 or Higher, Shortness of breath, Dizziness and Chest pain Follow Up Care Test Results: Test results from this visit will be discussed in further detail at your follow- up appointment, if applicable. Discharge Plan Admission Admit Date/Time: 04/26/25 18:55 Primary Reason for Your Visit: cellulitis of the hand Attending Provider: Callie Lizama Primary Care Provider: Nata Rea Consulting Providers: Bran Alston; Benji Melchor; Duarte Crowe Instructions Patient Instructions: Cellulitis, Cellulitis Dc Discharge Orders/Prescriptions Prescriptions: New Eliquis 5 mg Tablet 5 mg PO BID Qty: 60 2RF cephalexin 500 mg capsule 500 mg PO Q8H 3 Days Qty: 9 0RF Continued alprazolam 0.25 MG tablet 0.25 mg PO TID PRN PRN (Reason: Insomnia) escitalopram oxalate 20 mg tablet 20 mg PO DAILY atorvastatin 40 mg Tablet 40 mg PO QHS Qty: 30 0RF meclizine 12.5 mg tablet 12.5 mg PO TID PRN (Reason: dizziness) Qty: 14 0RF Discontinued Eliquis DVT-PE Treat 30D Start 5 mg (74 tabs) Tablets,Dose Pack See Rx Instructions .ROUTE .COMPLEX Qty: 74 0RF Rx Instructions: orally per package directions doxycycline hyclate 100 mg capsule 100 mg PO BID Qty: 10 0RF Referrals / Follow Up: Nata Rea MD [Primary Care Provider, Internal Medicine] - Within 1 Week Disposition Disposition (needs filled in before D/C Order can be placed): Home, Self Care
--- NOTE | 2025-04-29 11:03 | DS.PCM_ITS ---
Providers Date of Admission: 04/26/25 Date of Discharge: 04/29/25 Primary Care Physician: Dr. Nata Rea MD Consultations 04/26/25 20:16 Consult: Vascular Surgery Routine Consulting Provider: Bran Alston Reason for Consult: left arm edema EMERGENT Consult: No Notified: Yes Date Notified: 04/26/25 Time Notified: 17:00 Method of Notification: Verbal 04/26/25 21:22 Consult: Infectious Disease Routine Consulting Provider: Benji Melchor Reason for Consult: cellulitis EMERGENT Consult: No Notified: Yes Date Notified: 04/27/25 Time Notified: 06:50 Method of Notification: Text Reason For Visit: CELLUTIS OF THE LEFT ARM, RIGHT HAND Diagnosis Discharge Diagnosis (1) Cellulitis of hand, right: Status: Acute Code(s): L03.113 - Cellulitis of right upper limb (2) Cellulitis of arm, left: Status: Acute Code(s): L03.114 - Cellulitis of left upper limb (3) Cat scratch: Status: Acute Code(s): W55.03XA - Scratched by cat, initial encounter Plan #Cellulitis of the her upper extremities due to cat scratch * The cat scratch was on her right upper extremity but also has swelling of her left upper extremity now. She also has associated erythema * Per ID, vancomycin discontinued. Continue cefazolin and add on Flagyl. * Duplex ordered of the left upper extremities to evaluate for DVT was negative for any evidence of DVT * #History of venous thromboembolism: On Eliquis #Hyperlipidemia: On statin #Chronic depression: On Lexapro #History of breast cancer: S/p right-sided lumpectomy and radiation. Stable. DVT prophylaxis: Already on Eliquis Medications at Discharge Home Medications alprazolam 0.25 mg tablet 0.25 mg PO TID PRN PRN Insomnia 08/16/14 atorvastatin 40 mg tablet 40 mg PO QHS hld #30 tabs 04/07/25 meclizine 12.5 mg tablet 12.5 mg PO TID PRN dizziness #14 tabs 04/07/25 escitalopram oxalate 20 mg tablet 20 mg PO DAILY see 04/24/25 apixaban 5 mg tablet (Eliquis) 5 mg PO BID #60 tabs 04/29/25 cephalexin 500 mg capsule 500 mg PO Q8H 3 days #9 caps 04/29/25 Hospital Course Operations None Summary of Care Provided Minutes Spent on Discharge: 45 Hospital Course: Patient is a 75-year-old female with past medical history as outlined was admitted to the ED on 04/26/2025 with a complaint of redness and swelling of the left arm and hand as well as blisters on the right hand and wrist. Symptoms have been going on for about 1 day prior to admission. She had been seen about 48 hours prior to admission for a cat scratch on her right hand and was given a prescription for doxycycline and discharged home. However subsequently noted that she was having itching and swelling with associated redness so she came into the ED. In the ED WBC was elevated at 11.7. She had edema of the left hand and left arm with associated erythema and differential warmth and also had a bruise on her left upper arm. She was admitted and managed with cellulitis of the upper extremities due to cat scratch. CT of the left upper extremity showed no evidence of any abscess. ID was consulted and felt that the redness, swelling and blistering and itching was a reaction to the doxycycline. He had been on vancomycin and cefazolin. Vancomycin was discontinued and she was continued on cefazolin with Flagyl added on. His swelling and redness improved markedly and virtually resolved by time of discharge. She had duplex of the left upper extremity which showed no evidence of blood clot. Vascular surgery was consulted on admission and reviewed patient and with her arterial exam being normal did not think there was a vascular etiology for his symptoms. Patient remained stable and as stated his symptoms resolved. She was discharged home on 04/29/2025 on p.o. Keflex for 3 more days per ID recommendation. She is follow- up with her primary care doctor within 1 to 2 weeks. Patient seen and examined prior to discharge. She had no active complaints. Swelling had improved markedly. Review of systems otherwise negative. Labs and vitals reviewed. Home medication reviewed and reconciled. Physical Exam Const alert, oriented x3, no apparent distress, average body habitus and healthy appearing Constitutional Narrative: Class II obesity General Appearance: cooperative, comfortable, well kempt and well developed Orientation / Consciousness: awake HEENT normocephalic, head/scalp atraumatic, hearing grossly normal bilaterally, moist oral mucous membranes and oropharynx normal Mouth: oral and palatal mucosa normal Eyes EOMs intact bilaterally and conjunctivae normal Neck supple, no JVD and no carotid bruits General: trachea midline Resp normal respiratory effort, normal air movement, no retractions, no use of accessory muscles and clear to auscultation bilaterally Auscultation: Negative for rales, rhonchi or wheezes Cardio regular rate, regular rhythm, S1 normal heart sound, S2 normal heart sound, no murmurs, no rub and no gallops GI normal to inspection, nondistended, normoactive bowel sounds, soft to palpation, non-tender and non-distended Extremity Extremity Narrative: LUE and RUE swelling and erythema have improved markedly. still has few blisters but these have improved markedly Skin Skin Narrative: as under extremities Neuro oriented x3, CN's II-XII intact bilaterally, moves all extremities, no focal motor deficits and no sensory deficits noted Sensorium / Orientation: awake and alert Speech: speech normal Motor Exam: general weakness Psych thought process normal, cooperative and affect normal Appearance: appropriate Weight / BMI Weight Weight: 197 lb 12.074 oz Body Mass Index (BMI) 36.1 ABG / Lab / Microbiology Data 04/29/25 04:02 04/29/25 04:02 Laboratory: Laboratory Results - last 24 hr 04/29/25 04:02: WBC 7.3, RBC 3.83 L, Hgb 12.1, Hct 36.0 L, MCV 94.0, MCH 31.6, MCHC 33.6, RDW Std Deviation 43.1, RDW Coeff of Funmi 12.5, Plt Count 257, MPV 11.2, Immature Gran % (Auto) 0.300, Neut % (Auto) 69.4, Lymph % (Auto) 16.6 L, [place] % (Auto) 7.0, Eos % (Auto) 6.3 H, Baso % (Auto) 0.4, Absolute Neuts (auto) 5.0, Absolute Lymphs (auto) 1.21, Nucleated RBC % 0, Sodium 142, Potassium 3.8, Chloride 110 H, Carbon Dioxide 21.9, Anion Gap 10, BUN 10, Creatinine 0.83, Estim Creat Clear Calc 60.96, Est GFR (MDRD) Non-Af 74, BUN/Creatinine Ratio 12.6, Glucose 105 H, Calcium 8.3 Microbiology: Microbiology 04/26/25 18:48 Urine, Clean Catch Urine Culture - Final Culture exhibits no growth. 04/26/25 15:45 Blood Culture (Wb) - Anticubital Left Blood Culture - Preliminary No growth in 48 hours. 04/26/25 15:06 Blood Culture (Wb) - Arm Left Blood Culture - Preliminary No growth in 48 hours. D/C Instructions Discharge Activity: Return to Normal Activity Weight Bearing Status: Weight bearing as tolerated Call your doctor if you observe: Fever of 101 or Higher, Shortness of breath, Dizziness and Chest pain DC O2, CPAP, BIPAP Needs Home O2 Discharge instructions: No DC home with Oxygen: No Meaningful Use Info Meaningful Use Meaningful Use Diagnoses (Choose all that apply): None applicable Discharge Plan Admission Admit Date/Time: 04/26/25 18:55 Primary Reason for Your Visit: cellulitis of the hand Attending Provider: Callie Lizama Primary Care Provider: Nata Rea Consulting Providers: Barn Alston; Benji Melchor; Duarte Crowe Instructions Patient Instructions: Cellulitis, Cellulitis Dc Discharge Orders/Prescriptions Prescriptions: New Eliquis 5 mg Tablet 5 mg PO BID Qty: 60 2RF cephalexin 500 mg capsule 500 mg PO Q8H 3 Days Qty: 9 0RF Continued alprazolam 0.25 MG tablet 0.25 mg PO TID PRN PRN (Reason: Insomnia) escitalopram oxalate 20 mg tablet 20 mg PO DAILY atorvastatin 40 mg Tablet 40 mg PO QHS Qty: 30 0RF meclizine 12.5 mg tablet 12.5 mg PO TID PRN (Reason: dizziness) Qty: 14 0RF Discontinued Eliquis DVT-PE Treat 30D Start 5 mg (74 tabs) Tablets,Dose Pack See Rx Instructions .ROUTE .COMPLEX Qty: 74 0RF Rx Instructions: orally per package directions doxycycline hyclate 100 mg capsule 100 mg PO BID Qty: 10 0RF Referrals / Follow Up: Nata Rea MD [Primary Care Provider, Internal Medicine] - Within 1 Week Disposition Disposition (needs filled in before D/C Order can be placed): Home, Self Care Charges/Coding Visit Charges Inpatient E&M: 61034 Disch Hosp >30min
--- NOTE | 2025-04-29 11:12 | CASEMGMT ---
Pt has an order for DC placed with a new order for Eliquis. DEVI CM to the pt's room at this time and provided the pt with the 10$ co-pay card as well as the 30 day free trial card. Pt informed that the savings card can only be used once. Pt states understanding and denies any further DC needs or concerns.
[2025-04-29 12:53] VITALS: BP 140/105; PULSE 89; RESP 18; TEMP 36.7; O2SAT 100
== END 2025-04-29 13:06 | disposition home or self-care (01) | DRG 603 ==
LOC: ED 16:41 → MS3 19:28
PROVIDERS: Admitting Provider Internal Medicine; Emergency Provider Emergency Medicine; PCP Internal Medicine; Visit Provider Student in an Organized Health Care Education/Training Program
DX: L03.114 Cellulitis of left upper limb (principal); E78.5 Hyperlipidemia, unspecified; F32.A Depression, unspecified; F41.9 Anxiety disorder, unspecified; L03.113 Cellulitis of right upper limb; Z92.3 Personal history of irradiation; Z79.899 Other long term (current) drug therapy; Z79.01 Long term (current) use of anticoagulants; Z86.711 Personal history of pulmonary embolism; Z86.718 Personal history of other venous thrombosis and embolism
CPT/HCPCS: 36415; 73130; 73200; 80048; 80053; 81001; 83605; 85025; 85610; 85730; 87040; 87086; 93005; 93971; 96365; 96375; 96376; 99282; 99285; A4216; J0696

== ENCOUNTER 2025-04-30 19:02 | Emergency (ER) | payer MEDICARE, SELFPAY ==
[2025-04-30 19:02] VITALS: BP 156/90; PULSE 84; RESP 16; TEMP 36.9; O2SAT 97; BMI 36.3
--- NOTE | 2025-04-30 19:37 | EX.ED.DYSGE1 ---
HPI History of Present Illness Chief Complaint: Allergic Reaction Detail of Chief Complaint: Upper lip swelling for 1 hour. Informant: patient Onset/Context/Timing Onset: Today and Hours (Over the last hour.) Context: Gradual Onset Timing: Continuous Current Severity: Moderate Maximum Severity: Moderate Narrative Narrative: 75-year-old female recently hospitalized for cat bite because of infection in her hands cellulitis. Was treated with IV antibiotics. Was discharged the other day. Currently is on Keflex at home. Today about an hour ago started having swelling of her upper lip. No prior history. No trouble breathing. She did take 2 Benadryl at home total of 50 mg. She is not on any blood pressure medications or JEREMIAH inhibitors. Prior similar symptoms: No Recent Illness/Hospitalization: Yes [facility] Medical History Depression with anxiety Obesity (BMI 30-39.9) Acute deep vein thrombosis (DVT) of left lower extremity Vaginal candidiasis Acute bronchitis, unspecified Kidney stones Pulmonary embolism Adult-onset Still's disease Depression Anxiety Breast cancer Endometriosis Bowel obstruction Home Medications Medication Instructions Recorded Last Taken Type alprazolam 0.25 mg tablet 0.25 mg PO TID PRN PRN Insomnia 08/16/14 Unknown History atorvastatin 40 mg tablet 40 mg PO QHS hld #30 tabs 04/07/25 Unknown Rx meclizine 12.5 mg tablet 12.5 mg PO TID PRN dizziness #14 04/07/25 Unknown Rx tabs escitalopram oxalate 20 mg tablet 20 mg PO DAILY see 04/24/25 Unknown History apixaban 5 mg tablet (Eliquis) 5 mg PO BID #60 tabs 04/29/25 Unknown Rx cephalexin 500 mg capsule 500 mg PO Q8H 3 days #9 caps 04/29/25 Unknown Rx ciprofloxacin HCl 500 mg tablet 500 mg PO BID 5 days #10 tabs 05/01/25 Unknown Rx (Cipro) epinephrine 0.15 mg/0.3 mL 0.15 mg (0.3 mL) IM Q30M PRN 05/01/25 Unknown Rx injection,auto-injector anaphylaxis #2 ea Allergy/AdvReac Type Severity Reaction Status Date / Time ampicillin Allergy Rash Verified 04/30/25 19:05 cephalexin (From Keflex) Allergy Angioedema Verified 04/30/25 19:05 prednisone AdvReac SHAKINESS Verified 04/30/25 19:05 Surgical History H/O lumpectomy History of bowel resection History of colostomy reversal H/O: hysterectomy Social History household members: family housing: house Smoking Status: Never smoker ROS ROS ED ROS Narrative Denies recent illness other than infection to the cat bite. Constitutional Constitutional ED: Denies chills or fever(s) Eyes Eyes: Denies blurry vision ENT ENT ED: Denies ear pain Cardiovascular Cardiovascular: Denies chest pain Respiratory/Chest Respiratory/Chest: Denies cough or dyspnea Gastrointestinal Gastrointestinal: Denies abdominal pain Genitourinary Genitourinary ED: Denies dysuria Musculoskeletal Musculoskeletal: Denies arthralgias Integumentary Reports rash; Denies abscess or Abrasions Neurologic Neurologic: Denies headache(s) Psychiatric Psychiatric: Denies anxiety Endocrine Endocrinology: Denies cold intolerance Hematologic/Lymphatic Hematologic/Lymphatic: Reports none Allergic/Immunologic Allergic/Immunologic ED: Reports other Details: Upper lip swelling today. ; Denies mouth swelling, tongue swelling or urticaria EXAM Physical Exam Narrative Exam Narrative: Well-appearing 75-year-old female. Vital signs stable afebrile. Pulse ox 97%. She is in no acute distress. No trouble breathing or swallowing. H EENT exam pupils round react light. Moist with membranes. Upper lip is swollen moderately. Tongue midline. Tongue not swollen. No trouble breathing or swallowing. No stridor or drooling. Neck nontender. No lymphadenopathy. Lungs clear to auscultation. Heart regular rhythm no murmur. Chest wall ribs nontender. Abdomen soft nontender. Moving all 4 extremities. Resolving red rash both hands. Neurologically she is awake alert. Answering questions following commands. Const Vital Signs: 04/30/25 19:02 04/30/25 19:58 04/30/25 21:00 Temperature 98.4 F Temperature Source Oral Pulse Rate 84 82 81 Respiratory Rate 16 23 H 18 Blood Pressure 156/90 H 152/91 H 187/98 H Blood Pressure Mean 112 111 127 Pulse Ox 97 99 100 Oxygen Delivery Method Room Air Room Air Room Air 04/30/25 22:00 04/30/25 22:54 05/01/25 00:00 Temperature Temperature Source Pulse Rate 106 H 102 H 78 Respiratory Rate 18 16 18 Blood Pressure 161/99 H 127/100 H 154/96 H Blood Pressure Mean 119 109 115 Pulse Ox 100 96 98 Oxygen Delivery Method Room Air Room Air Room Air 05/01/25 00:07 Temperature 98 F Temperature Source Pulse Rate 74 Respiratory Rate 18 Blood Pressure 154/96 H Blood Pressure Mean 115 Pulse Ox 98 Oxygen Delivery Method MDM MDM MDM Narrative Medical decision making narrative: Ashutosh female allergic reaction suspected to Keflex because she is on that currently antibiotic for cat bite. Should be given IV Solu-Medrol she is already taking Benadryl at home. Ice pack will be applied. She will be watched. She does not need labs or imaging. If this improves she will be discharged to home and antibiotic be changed to doxycycline. She has an allergy to penicillin. Repeat exam patient is doing well at 8:35 PM. The swelling is no better is no significant worse she does have minimal swelling in the left posterior soft palate. Repeat exam around 12:05 AM patient is doing better. The swelling of her upper lip is much better. Swelling of her lower lip is improved. Posterior pharynx is improved. There is no tongue swelling. No trouble breathing or swallowing. She is comfortable being discharged to home as is the family. She has multiple allergies she should be started on Cipro 500 twice daily for 5 days. Stop the Keflex due to the allergic reaction. She also be given a prescription for an EpiPen if she would ever have a severe reaction like this in the future. She does return if she is feeling worse or is worse swelling. History & Record Review Discussion w/independent historian: Patient Additional record(s) reviewed:: Prior inpatient record, Prior outpatient record, Prior ED visit and Prior labs Discharge Plan Triage Chief Complaint: Allergic Reaction ED Provider: Nikolas Cameron Dx/Rx/DC Orders Clinical Impression: Angio-edema, Allergic reaction, Cellulitis Instructions: ED Angioedema Prescriptions: New ciprofloxacin HCl [Cipro] 500 mg tablet 500 mg PO BID 5 Days Qty: 10 0RF epinephrine 0.15 mg/0.3 mL auto-injector 0.15 mg IM Q30M PRN (Reason: anaphylaxis) Qty: 2 0RF Rx Instructions: do not exceed 12 doses per 24 hrs Lead to be used if you have a severe allergic reaction. No Action alprazolam 0.25 MG tablet 0.25 mg PO TID PRN PRN (Reason: Insomnia) escitalopram oxalate 20 mg tablet 20 mg PO DAILY Eliquis 5 mg Tablet 5 mg PO BID Qty: 60 2RF cephalexin 500 mg capsule 500 mg PO Q8H 3 Days Qty: 9 0RF atorvastatin 40 mg Tablet 40 mg PO QHS Qty: 30 0RF meclizine 12.5 mg tablet 12.5 mg PO TID PRN (Reason: dizziness) Qty: 14 0RF Primary Care Provider: Nata Rea Referrals: Nata Rea MD [Primary Care Provider, Internal Medicine] - 3-5 Days Activity Restrictions/Additional Instructions: It appears you have an allergic reaction to the antibiotic cephalexin (Keflex). You cannot take that medication again. It caused her to have swelling of your lips and back your throat. Stop taking that prescription immediately. He will be started on the antibiotic Cipro 1 pill twice a day for the cat bite infection in your hands it is improving. I wrote you for an epinephrine pen. This is only to be used if you develop a severe allergic reaction like you did tonight. If you would have trouble breathing or severe swelling your lips or tongue you just take the Off and injected in your thigh. Return to the emergency department if you are feeling worse or have worsening swelling of your lips or tongue. Follow-up with your doctor to ensure you are improving. Print Language: Turkmen Disposition Disposition: Home, Self Care
--- OUTSIDE RECORDS SUMMARY | 2025-04-30 19:53 | XMS RPT_ITS | CCD ---
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 Jennifer Santos Primary Care Provider Dr. Bran Alston Attending Provider Dr. 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 Jennifer Santos MD Primary Care Provider Dr. Jennifer Santos MD Referring Provider Ki Schultz Attending Provider JENNIFER SANTOS Primary Care Unavailable JENNIFER SANTOS Primary Care Unavailable KELLE PETER Attending Unavailable JENNIFER SANTOS Primary Care Unavailable Álvaro CH, Dr. Peace Primary Care Physician Dr. Jennifer Santos MD Referring Provider Ki Schultz Attending Physician Edi CH, Dr. Valerio Attending Physician [phone] Dr. Teodoro Daley MD Emergency Department Physician Alecia CH, Dr. Sotomayor Attending Physician Edi CH, Dr. Valerio Referring Provider [phone] Moon [address], Dr. Robeldo Emergency Department Phys ician Celaya DO, Dr. Pedraza Admitting Physician Katherine vailable de [facility], Dr. Pedraza Nurse Practitioner Unav ailable Thong [...] Dr. Kaye Nurse Practitioner Kimberly Blake MD, [facility] Kimberly Courtney DO, Dr. Sotomayor Attending Physician Dawna CH, Dr. Durham Attending Physician [facility] Primary Care Unavailable Dawna Ryanashokdm Attending Unavailable [facility] Primary Care Unavailable Bran Alston Attending Unavailable Daley, Teodoro Referring Unavailable [facility] Primary Care Unavailable Duarte Crowe Consulting Unavailable Duarte Crowe Attending Unavailable Duarte Crowe Admitting Unavailable Bran Alston Consulting Unavailable Dl, Callie Zandra Attending Unavailable Benji Melchor Consulting Unavailable Rolandam, Callie Zandra Consulting Unavailable [facility] Primary Care Unavailable Neville Benito Consulting Unavailable Milo Celaya Attending Unavailable Milo Celaya Admitting Unavailable Adeli, Amir Consulting Unavailable Hinduja, Renée Consulting Unavailable Samuel, Chey Consulting Unavailable Radha, Neeru Consulting Unavailable Lavon, Phil Consulting Unavailable Kamran, Brit Consulting Unavailable Yolettetajeni, Melvin Consulting Unavailable Pipe Venegas Consulting Unavailable Dalton Gross Consulting Unavailable Michael, Bernadette Consulting Unavailable Sara Brar Consulting Unavailable Tom Bach Consulting Unavailable Chayo Taylor Consulting Unavailable Obed, Mohely Consulting Unavailable Indy, Mhd Serge Consulting UnavailAlen Thurman Consulting Unavailable Jennifer Norris Consulting Unavailable Derick Brink Consulting Unavailable Mikki Matute Consulting Unavailable Shaniqua Blake Consulting Unavailable Milo Celaya Consulting [facility] Referring Unavailable [facility] Primary Care Unavailable Ki Schultz Attending Unavailable [facility] Primary Care Unavailable Teodoro Daley Attending Unavailable [facility] Primary Care Unavailable Darryn Baeza Attending Unavailable [facility] Primary Care Unavailable Neville Benito Consulting Unavailable Milo Celaya Admitting Unavailable Bran Courtney Attending Unavailable Adeli, Amir Consulting Unavailable Hinduja, Renée Consulting Unavailable Samuel, Chey Consulting Unavailable Zha, Neeru Consulting Unavailable Lavon, Phil Consulting Unavailable Kamran, Brit Consulting Unavailable Bittar, Melvin Consulting Unavailable Pipe Venegas Consulting Unavailable Dalton Gross Consulting Unavailable Michael, Bernadette Consulting Unavailable Sara Brar Consulting Unavailable Tom Bach Consulting Unavailable Brandon, Chayo Consulting Unavailable Ridha, Mohamed Consulting Unavailable Zaghlouleh, Mhd Serge Consulting UnavailAlen Thurman Consulting Unavailable Jennifer Norris Consulting Unavailable Derick Brnik Consulting Unavailable Mikki Matute Consulting Unavailable Shaniqua Blake Consulting Unavailable Milo Celaya Consulting Unavailable Allergies Allergy Classification Reported Allergen(s) Allergy Type Date of Onset Reaction(s) Facility (20 sources) Ampicillin; Translations: [ampicillin] Drug Allergy 6 Rash, Itching [facility] (20 sources) apixaban; Translations: [APIXABAN] Drug Allergy 2 Swelling, Anaphylaxis [facility] Work Phone: (20 sources) rivaroxaban; Translations: [RIVAROXABAN] Drug Allergy 2 Swelling [facility] Work Phone: (6 sources) predniSONE; Translations: [prednisone] Drug Allergy 3 [facility] (1 source) Ampicillin Drug Allergy 5 [facility] Repository (1 source) predniSONE Drug Allergy 5 [facility] Repository Medications Current Medications Medication Drug Class(es) [...] Take 1 tablet by bossman once daily. apixaban 5 mg oral tablet [...] Comment on above: Take 1 capsule by [facility] twice daily. doxycycline monohydrate 100 mg oral [...] Take 1 tablet by bossman once daily. 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] 07-19-2021 Episodic Other aftercare (1 source) Anticoagulant effect; Translations: [FCI (current) use of anticoagulants] 04-07-2025 Episodic Other [...] 07-08-2021 Episodic Skin and subcutaneous tissue infections (6 sources) Cellulitis of axilla; Translations: [Cellulitis of unspecified part of limb] Onset: 5 Episodic Spondylosis; intervertebral disc disorders; other back [...] Name Value Interpretation Reference Range Facil ity Consultation - Infectious Dx on 04-27-2025 Consultation - Infectious Dx [facility] Medical Records Department [address] [place] [id number] Consultation - Infectious Dx 04/27/25 1018 MR#: [id number] Acct: [id number] Name: ILENE SHAW Rep #: [id number] : 1950 75 From: Benji Melchor MD PCP: Dr. Jennifer Santos MD Status:ADM IN Location: [address] Assessment Plan Assessment/Plan (1) Cellulitis of hand, right: (2) Cellulitis of arm, left: (3) Cat scratch: PLAN: R hand cat scratch on 04/22. Suspect bilat hand itching, blistering, redness, and swelling is a reaction to the po doxycycline. No fever. Will stop vanc, continue cefazolin for now, will add flagyl. Will follow, thank you HPI Consult Data Date of Consult: 04/27/25 HPI Narrative Reason for Consultation: cellulitis HPI Narrative: ILENE SHAW, is a 75 F who presented to ED 04/26 with bilateral hand swelling, itching, and blister formation. Had scratch on R hand on 04/22 by her daughter's indoor cat. Seen in ED 04/24 with R hand swelling, sent home with po doxy. No fever, feeling ok. Admitted on vanc and cefazolin. H/o rash with ampicillin. Full ROS performed and neg except as noted above. [facility] Medical History Depression with anxiety Obesity (BMI 30-39.9) Acute deep vein thrombosis (DVT) of left lower extremity Vaginal candidiasis Acute bronchitis, unspecified Kidney stones Pulmonary embolism Adult-onset Still's disease Depression Anxiety Breast cancer Endometriosis Bowel obstruction Home Medications ???Medication ???Instructions ???Recorded ???Last Taken ???Type alprazolam 0.25 mg tablet 0.25 mg PO TID PRN PRN Insomnia Unknown History apixaban 5 mg (74 tabs) tablets in See Rx Instructions .Route 04/0404/26/25 Rx a dose pack (Eliquis DVT-PE Treat .COMPLEX blood thinner #74 tabs 30D Start) atorvastatin 40 mg tablet 40 mg PO QHS hld #30 tabs 04/07/25 Unknown Rx meclizine 12.5 mg tablet 12.5 mg PO TID PRN dizziness #14 1 Unknown Rx tabs doxycycline hyclate 100 mg capsule 100 mg PO BID #10 caps 04/24/25 Unknown Rx escitalopram oxalate 20 mg tablet 20 mg PO DAILY see md 04/24/25 Un known History Allergy/AdvReac Type Severity Reaction Status Date / Time ampicillin Allergy Rash Verified 04/26/25 11:39 prednisone AdvReac SHAKINESS Verified 04/26/25 11:39 Family History no significant family his Surgical History H/O lumpectomy History of bowel resection History of colostomy reversal H/O: hysterectomy Social History household members: family housing: house Smoking Status: Never smoker Physical Exam Const alert, oriented x3 and no apparent distress General Appearance: cooperative HEENT normocephalic and head/scalp atraumatic Eyes PERRL and EOMs intact bilaterally Neck supple and No nodes Resp normal air movement and clear to auscultation bilaterally Cardio regular rate and regular rhythm GI soft to palpation, non-tender and non-distended Extremity General Extremity: edema Skin Skin Narrative: bilat hand and forearm swelling, redness, serous bulla. Neuro CN's II-XII intact bilaterally Lab / Micro Data Attestation: I reviewed the patient's lab results. 04/26/25 15:45 04/26/25 15:06 Labs: Laboratory Results - last 24 hr 04/26/25 15:06: Sodium 137, Potassium 4.2, Chloride 105, Carbon Dioxide 18.8 L, Anion Gap 13, BUN 11, Creatinine 0.80, Estim Creat Clear Calc 63.18, Est GFR (MDRD) Non-Af 77, BUN/Creatinine Ratio 13.1, Glucose 96, Calcium 9.0, Total Bilirubin 0.75, AST 36 H, ALT 31, Alkaline Phosphatase 105 H, Total Protein 6.8, Albumin 3.7, Globulin 3.2, Albumin/Globulin Ratio 1.2 04/26/25 15:45: WBC 11.7 H, RBC 4.34, Hgb 13.5, Hct 40.5, MCV 93.3, MCH 31.1, MCHC 33.3, RDW Std Deviation 42.6, RDW Coeff of Funmi 12.4, Plt Count 283, MPV 11.2, Immature Gran % (Auto) 0.300, Neut % (Auto) 81.7 H, Lymph % (Auto) 11.2 L, [place] % (Auto) 4.6, Eos % (Auto) 2.0, Baso % (Auto) 0.2, A bsolute Neuts (auto) 9.6 H, Absolute Lymphs (auto) 1.31, Nucleated RBC % 0, PT 16.3 H, INR 1.3, APTT 31.0, Lactic Acid 1.0 04/26/25 18:48: Urine Color Straw, Urine Clarity Clear, Urine pH 7.0, Ur Specific Seney 1.010, Urine Protein Negative, Urine Glucose (UA) Normal, Urine Ketones Negative, Urine Occult Blood Negative, Urine Nitrite Negative, Urine Bilirubin Negative, Urine Urobilinogen Normal, Ur Leukocyte Esterase 25 H, Urine RBC 0 SEEN, Urine WBC 0-5 SEEN, Ur Squamous Epith Cells 0-5 SEEN, Urine Bacteria 1+, Urine Mucus 0 SEEN Imaging Radiology Impression Hand X-Ray 04/26/25 15:35 IMPRESSION: No acute fracture or dislocations. Scattered mild degenerative changes. Extensive soft tissu (more content not included)... Normal [facility] Venous Duplex US, Unilateral on 04-27-2025 Venous Duplex US, Unilateral [facility] [address] [place] [address] Venous Duplex US, Unilateral 04/27/25 1343 MR#: [id number] Acct: [id number] Name: ILENE SHAW Rep #: [id number] : 1950 75 From: Marlo Storm MD Attending Dr: Dr. Callei Lizama MD Status: AD M IN Ordering Dr: Callie Lizama MD Date: 04/27/25 Location: [facility] [facility] Sex: F C Admitted: 04/26/25 Reason For Study Reason For Study: LUE Swelling Left Proximal Left jugular vein is spontaneous, widely patent, phasic, with no intraluminal echogenicity noted. Left subclavian vein is spontaneous, widely patent, phasic, with no intraluminal echogenicity noted. Left Arm Left axillary vein is spontaneous, patent, phasic, competent, compressible and demonstrates augmentation. Left brachial vein is compressible. Left cephalic vein is compressible. Left basilic vein is compressible. Left Lower Arm Left radial vein is compressible. Left ulnar vein is compressible. Procedure This was a unilateral left upper extremity venous doppler examination. Exam performed in department. A preliminary report was called and/or faxed to [facility]. VL/Venous Duplex US, Unilateral Interpretation Summary Deep veins of the left upper extremity are patent and compressible segmentally. There is no evidence of deep vein thrombosis. The superficial veins of the left upper extremity, the basilic and cephalic veins, are patent and compressible. There is no evidence of left upper extremity superficial thrombophlebitis involving the veins imaged. Ordering Physician: Callie Lizama Referring Physician: Jennifer Santos Performed By: Chandler Kessler, RVT ??? 04/27/252238 Date Marlo Storm MD CC: Dr. Jennifer Santos MD; Dr. Callie Lizama MD Date Dictated: 04/27/25 1343 Date Transcribed: 04/27/252238 Manager Material: Signed Normal [facility] CBC W/Diff, Automatedon 04-15 Absolute Lymph 1.31 X10 3/uL Normal 0.83-4.51 [facility] Comment on above: Performed By: #### L 300.3900, L300.4310, L100.0100, L500.4050, L503.6005 #### [facility] [address] [place], [address] Absolute Neut 9.6 X10 3/uL High 2.0-7.7 [facility] Comment on above: Performed By: #### L 300.3900, L300.4310, L100.0100, L500.4050, L503.6005 #### [facility] [address] [place], [address] Basophils/100 WBC (Bld) 0.2 % Normal 0-1 [facility] Comment on above: Performed By: #### L 300.3900, L300.4310, L100.0100, L500.4050, L503.6005 #### [facility] [address] [place], [address] Eosinophils/100 WBC (Bld) 2.0 % Normal 0-5 [facility] Comment on above: Performed By: #### L 300.3900, L300.4310, L100.0100, L500.4050, L503.6005 #### [facility] [address] [place], [address] Erythrocyte distribution width (RBC) [Ratio] 12.4 % Normal 11.6-14.6 [facility] Comment on above: Performed By: #### L 300.3900, L300.4310, L100.0100, L500.4050, L503.6005 #### [facility] [address] [place], [address] Hematocrit (Bld) [Volume fraction] 40.5 % Normal 37-47 [facility] Comment on above: Performed By: #### L 300.3900, L300.4310, L100.0100, L500.4050, L503.6005 #### [facility] [address] [place], [address] Hemoglobin (Bld) [Mass/Vol] 13.5 g/dL Normal 12.0-15.0 [facility] Comment on above: Performed By: #### L 300.3900, L300.4310, L100.0100, L500.4050, L503.6005 #### [facility] [address] [place], [address] IG% 0.300 Normal 0.0-0.9 [facility] Comment on above: Result Comment: IG% - Immature Granulocytes (promyelocytes, myelocytes and metamyelocytes) > 1% indicates that a LEFT SHIFT is Present. Performed By: #### L 300.3900, L300.4310, L100.0100, L500.4050, L503.6005 #### [facility] [address] [place], [address] Lymphocytes/100 WBC (Bld) 11.2 % Low 19-41 [facility] Comment on above: Performed By: #### L 300.3900, L300.4310, L100.0100, L500.4050, L503.6005 #### [facility] [address] [place], [address] MCH (RBC) [Entitic mass] 31.1 pg Normal 27.0-32.0 [facility] Comment on above: Performed By: #### L 300.3900, L300.4310, L100.0100, L500.4050, L503.6005 #### [facility] [address] [place], [address] MCHC (RBC) [Mass/Vol] 33.3 g/dL Normal 32-36 [facility] Comment on above: Performed By: #### L 300.3900, L300.4310, L100.0100, L500.4050, L503.6005 #### [facility] [address] [place], [address] MCV (RBC) [Entitic vol] 93.3 fL Normal 81-99 [facility] Comment on above: Performed By: #### L 300.3900, L300.4310, L100.0100, L500.4050, L503.6005 #### [facility] [address] [place], [address] Monocytes/100 WBC (Bld) 4.6 % Normal 0-10 [facility] Comment on above: Performed By: #### L 300.3900, L300.4310, L100.0100, L500.4050, L503.6005 #### [facility] [address] [place], [address] Neutrophils/100 WBC (Bld) 81.7 % High 47-70 [facility] Comment on above: Performed By: #### L 300.3900, L300.4310, L100.0100, L500.4050, L503.6005 #### [facility] [address] [place], [address] Nucleated RBC (Bld) [#/Vol] 0 10*3/uL Normal 0-5 [facility] Comment on above: Performed By: #### L 300.3900, L300.4310, L100.0100, L500.4050, L503.6005 #### [facility] [address] [place], [address] Platelet mean volume (Bld) [Entitic vol] 11.2 fL Normal 6.2-12.0 [facility] Comment on above: Performed By: #### L 300.3900, L300.4310, L100.0100, L500.4050, L503.6005 #### [facility] [address] [place], [address] Platelets (Bld) [#/Vol] 283 10*3/uL Normal 150-450 [facility] Comment on above: Performed By: #### L 300.3900, L300.4310, L100.0100, L500.4050, L503.6005 #### [facility] [address] [place], [address] RBC (Bld) [#/Vol] 4.34 10*6/uL Normal 4.2-5.4 [facility] Comment on above: Performed By: #### L 300.3900, L300.4310, L100.0100, L500.4050, L503.6005 #### [facility] [address] [place], [address] RDW SD 42.6 fl Normal 35.1-43.9 [facility] Comment on above: Performed By: #### L 300.3900, L300.4310, L100.0100, L500.4050, L503.6005 #### [facility] [address] [place], [address] WBC (Bld) [#/Vol] 11.7 10*3/uL High 4.4-11.0 [facility] Comment on above: Performed By: #### L 300.3900, L300.4310, L100.0100, L500.4050, L503.6005 #### [facility] [address] [place], [address] Comprehensive Metabolic Prof ilon 04-26-2025 Albumin [Mass/Vol] 3.7 g/dL Normal 3.4-4.8 [facility] Comment on above: Performed By: #### L 300.3900, L300.4310, L100.0100, L500.4050, L503.6005 #### [facility] [address] [place], [address] Albumin/Globulin [Mass ratio] 1.2 {ratio} Normal 0.9-2.4 [facility] Comment on above: Performed By: #### L 300.3900, L300.4310, L100.0100, L500.4050, L503.6005 #### [facility] [address] [place], [address] ALK PHOS 105 U/L High 35-104 [facility] Comment on above: Performed By: #### L 300.3900, L300.4310, L100.0100, L500.4050, L503.6005 #### [facility] [address] [place], [address] ALT [Catalytic activity/Vol] 31 U/L Normal <=34 [facility] Comment on above: Performed By: #### L 300.3900, L300.4310, L100.0100, L500.4050, L503.6005 #### [facility] [address] [place], [address] AST [Catalytic activity/Vol] 36 U/L High <=31 [facility] Comment on above: Result Comment: Hemo lysis present, Results??could be affected. ?? Performed By: #### L 300.3900, L300.4310, L100.0100, L500.4050, L503.6005 #### [facility] [address] [place], [address] Bilirubin [Mass/Vol] 0.75 mg/dL Normal 0.00-1.30 [facility] Comment on above: Performed By: #### L 300.3900, L300.4310, L100.0100, L500.4050, L503.6005 #### [facility] [address] [place], [address] BUN/CRE 13.1 RATIO Normal 10-20 [facility] Comment on above: Performed By: #### L 300.3900, L300.4310, L100.0100, L500.4050, L503.6005 #### [facility] [address] [place], [address] Calcium [Mass/Vol] 9.0 mg/dL Normal 7.6-11.0 [facility] Comment on above: Performed By: #### L 300.3900, L300.4310, L100.0100, L500.4050, L503.6005 #### [facility] [address] [place], [address] Chloride [Moles/Vol] 105 mmol/L Normal 98-108 [facility] Comment on above: Performed By: #### L 300.3900, L300.4310, L100.0100, L500.4050, L503.6005 #### [facility] [address] [place], [address] CO2 [Moles/Vol] 18.8 mmol/L Low 21.0-32.0 [facility] Comment on above: Performed By: #### L 300.3900, L300.4310, L100.0100, L500.4050, L503.6005 #### [facility] [address] [place], [address] Creatinine [Mass/Vol] 0.80 mg/dL Normal 0.70-1.20 [facility] Comment on above: Performed By: #### L 300.3900, L300.4310, L100.0100, L500.4050, L503.6005 #### [facility] [address] [place], [address] ECRCL 63.18 ml/min Normal 50-250 [facility] Comment on above: Performed By: #### L 300.3900, L300.4310, L100.0100, L500.4050, L503.6005 #### [facility] [address] [place], [address] GAP 13 Normal 5-15 [facility] Comment on above: Performed By: #### L 300.3900, L300.4310, L100.0100, L500.4050, L503.6005 #### [facility] [address] [place], [address] GFR/1.73 sq M.predicted among non-blacks MDRD (S/P/Bld) [Vol rate/Area] 77 mL/min/{1.73_m2} Normal >60 [facility] Comment on above: Result Comment: mL/m in/1.73m2 CKD-EPI Creatinine Equation (2020) Performed By: #### L 300.3900, L300.4310, L100.0100, L500.4050, L503.6005 #### [facility] [address] [place], [address] Globulin (S) [Mass/Vol] 3.2 g/dL Normal 2.2-4.2 [facility] Comment on above: Performed By: #### L 300.3900, L300.4310, L100.0100, L500.4050, L503.6005 #### [facility] [address] [place], [address] Glucose [Mass/Vol] 96 mg/dL Normal 70-99 [facility] Comment on above: Performed By: #### L 300.3900, L300.4310, L100.0100, L500.4050, L503.6005 #### [facility] [address] [place], [address] Potassium [Moles/Vol] 4.2 mmol/L Normal 3.3-5.1 [facility] Comment on above: Result Comment: Hemo lysis present, Results??could be affected. ?? Performed By: #### L 300.3900, L300.4310, L100.0100, L500.4050, L503.6005 #### [facility] [address] [place], [address] Sodium [Moles/Vol] 137 mmol/L Normal 133-145 [facility] Comment on above: Performed By: #### L 300.3900, L300.4310, L100.0100, L500.4050, L503.6005 #### [facility] [address] [place], [address] T PROT 6.8 g/dL Normal 5.9-8.4 [facility] Comment on above: Performed By: #### L 300.3900, L300.4310, L100.0100, L500.4050, L503.6005 #### [facility] [address] [place], [address] Urea nitrogen [Mass/Vol] 11 mg/dL Normal 4-19 [facility] Comment on above: Performed By: #### L 300.3900, L300.4310, L100.0100, L500.4050, L503.6005 #### [facility] [address] [place], [address] Emergency Department Summary on 04-26-2025 Emergency Department Summary [facility] Medical Records Department [address] [place] [address] Emergency Department Summary 04/26/25 MR#: [id number] Acct: [id number] Name: ILENE SHAW Rep #: [id number] : 1950 75 From: Darryn Baeza DO PCP: Dr. Jennifer Santos MD Status:REG ER Location: ED HPI History of Present Illness Chief Complaint: Cellulitis Narrative Narrative: Patient is a 75-year-old female with past medical history of anxiety, depression, pulm embolism on Eliquis who presents to the emergency department with a chief complaint of redness and swelling of her bilateral hands and in her left inner arm. She states that she was here recently was placed on antibiotics and was told to return with worsening symptoms or concerns. She states that today she woke up with worsening redness in her right hand as well as swelling and redness in her left hand and her left upper extremity. Patient denies any other new injuries on the left side [facility] Medical History Depression with anxiety Obesity [...] tabs) tablets in See Rx Instructions .Route 04/0404/26/25 Rx a dose pack (Eliquis DVT-PE Treat [...] Date / Time ampicillin Allergy Rash Verified 04/26/25 11:39 prednisone AdvReac SHAKINESS Verified 04/26/25 11:39 Family History no significant family his Surgical History H/O lumpectomy History of bowel resection History of colostomy reversal H/O: hysterectomy Social History household members: family housing: house Smoking Status: Never smoker ROS ROS ED ROS Narrative Constitutional: Denies any fevers, chills, headaches Eyes: Denies change in vision double vision blurry vision Cardiovascular: Denies chest pain Respiratory: Coughing wheezing shortness of breath Neurological: Denies any numbness, recent tingling Musculoskeletal: Complains of swelling and redness to the bilateral upper extremity/hands as well as her left inner arm Skin: Complains of rash as noted above EXAM Physical Exam Narrative Exam Narrative: General: Patient is lying in bed rest comfortably did not appear to be in acute distress Head: Atraumatic, normocephalic Eyes: PERRL bilaterally, EOMI bilaterally, no conjunctival injection noted Neck: Soft, supple, trachea midline Cardiovascular: Regular rate and rhythm Respiratory: Clear to auscultation bilaterally Musculoskeletal: Compartments are soft and compressible in the bilateral extremities Extremities: +5/5 strength noted in the bilateral lower extremities, radial pulses +2/4 in the bilateral extremities Neurological: Patient follow commands knew that she was at [facility] year is 2024 Skin: Patient has erythema extending outside the area as marked in her right hand as well as a few fluid-filled blisters along her radial aspect of her right thumb. Patient also has redness and swelling of her left hand and notes that she has redness in her left in her arm with some bruising at the top of the rash no petechiae no sloughing of the skin noted Const Vital Signs: 04/26/25 11:37 04/26/25 13:37 04/26/25 14:11 Temperature 98.4 F 98.4 F Temperature Source Oral Oral Pulse Rate 98 80 79 Respiratory Rate 16 18 Blood Pressure 137/91 H 167/71 H 167/71 H Blood Pressure Mean 106 103 103 Pulse Ox 98 100 100 Oxygen Delivery Method Room Air Room Air 04/26/25 15:00 04/26/25 15:00 04/26/25 15:57 Temperature 98.4 F Temperature Source Oral Pulse Rate 87 Respiratory Rate 18 Blood Pressure 175/80 H 175/80 H Blood Pressure Mean 111 111 Pulse Ox 97 96 Oxygen Delivery Method Room Air Room Air 04/26/25 16:00 04/26/25 16:34 Temperature 98.4 F 98.4 F Temperature Sour (more content not included)... Normal [facility] Extremity Upper without Cont raon 04-26-2025 Extremity Upper without Contra [facility] Imaging Services [address] [place] [address] Extremity Upper without Contra MR#: [id number] Acct: [id number] Name: ILENE SHAW Rep #: [id number] : 1950 F 75 From: Jaime Wiseman MD PCP: Dr. Jennifer Santos MD Status: ADM IN Study: Extremity Upper without Contra Date of Exam: 06/26/24 Exam# [id number] Ordering Dr: Duarte Crowe DO PROCEDURE: CT EXTREMITY UPPER WITHOUT CONTRAST - LEFT 04/26/2025 REASON FOR EXAM: EXTREME SWELLING AND REDNESS OF THE LEFT ARM/HAND TECHNIQUE: Procedure Code: CTEUWO Modality: CT Procedure: EXTREMITY UPPER WITHOUT CONTRA CT left upper extremity without contrast. Coronal and Sagittal reconstructions were provided. One or more dose reduction techniques were used (e.g., Automated exposure control, adjustment of the mA and/or kV according to patient size, use of iterative reconstruction technique. RADIATION DOSE SUMMARY: DLP: 3306.48 mGycm COMPARISON: Radiographs earlier same day. FINDINGS: No acute fracture or dislocation. Preserved visualized joint spaces. Normal bone mineralization. No lytic or blastic lesion, or aggressive osseous erosion or periosteal reaction appreciated in the rzesd-mg-zdxy. Nonspecific mild generalized subcutaneous edema of the left arm, and visualized hand/wrist, possibly with mild cellulitic changes. No drainable fluid collection/abscess or subcutaneous emphysema is seen. CT/Extremity Upper without Contra IMPRESSION: 1. No acute or aggressive osseous abnormality. 2. Nonspecific generalized subcutaneous edema, possibly with cellulitic changes. 3. No drainable fluid collection/abscess or subcutaneous emphysema visualized. Reading Location: [id number] CC: Dr. Jennifer Santos MD; Dr. Duarte Crowe DO Manager Material: Signed Normal [facility] H AND P Exam - Hospitaliston 04-26-2025 H&P Exam - Hospitalist [facility] Medical Records Department [address] [place] [address] H P Exam - Hospitalist 04/26/251947 MR#: [id number] Acct: [id number] Name: ILENE SHAW Rep #: [id number] : 1950 75 From: Duarte Crowe DO PCP: Dr. Jennifer Santos MD Status:ADM IN Location: [facility] [place] TV013-5 HPI - General General Date of Admission: 04/26/25 Date of Service: 04/26/25 Chief Complaint: Swelling and redness of the left arm and hand, water blisters on right hand and wrist HPI Narrative ILENE SHAW, is a 75 F who presents to the emergency room at [facility] for evaluation of swelling and redness of her left arm and hand which started yesterday. Patient also complains of areas of small water blisters on her right wrist and hand area. Patient was seen 48 hours ago in the emergency room for a scratch from her cat between her ring finger and little finger on her right hand, she was given a prescription for doxycycline for this. Patient states that last night she began having itching in her left hand and noticed that it was swelling, today the swelling had increased in the hand and gone up the left forearm into the left upper arm. Workup in the emergency room included a CBC which showed an elevated white count at 11.7, patient's chemistry profile was unremarkable, she had a slight elevation in her alkaline phosphatase and AST. Examination of the patient revealed severe edema of the left hand, and left arm along with redness and warmth. Patient had a bruise over her left upper arm. There is no evidence of any fluid blisters on the left arm or left hand. Examination of the right hand revealed some blisters which were approximately 1-2 cm in diameter over her right wrist area and right hand, right hand was slightly edematous but this examiner did not appreciate any severe redness of her right hand. There was no evidence of any open area on her right hand and I could not appreciate where she was scratched by her cat. CT of the left upper extremity including hand was obtained, at the time of this dictation, an official read out has not been forthcoming. Patient will be admitted to [place] [address] for cellulitis of the left arm, she will be maintained on vancomycin and Ancef, she will be given Benadryl in case some of this could be an allergic reaction. I had vascular surgery see the patient informally in the ER and it was recommended that the CT be obtained. He will see the patient again tomorrow. [facility] Medical History Depression with anxiety Obesity (BMI [...] tabs) tablets in See Rx Instructions .Route 04/0404/26/25 Rx a dose pack (Eliquis DVT-PE Treat [...] Date / Time ampicillin Allergy Rash Verified 04/26/25 11:39 prednisone AdvReac SHAKINESS Verified 04/26/25 11:39 Family History no significant family his Surgical History H/O lumpectomy History of bowel resection History of colostomy reversal H/O: hysterectomy Social History household members: family housing: house Smoking Status: Never smoker ROS ROS Narrative Patient complains of increasing swelling in the left hand and left arm since yesterday. She also complained of fluid-filled blisters on the right wrist and right hand area. Constitutional Constitutional: Denies anorexia, change in weight, chills, fatigue, fever(s), night sweats or weakness Eyes Eyes: Denies blurry vision, change in vision, discharge from eye(s) or eye pain Cardiovascular Cardiovascular: Reports edema; Denies chest pain, claudication or palpitations Respiratory/Chest Respiratory/Chest: Denies cough, hemoptysis, shortness of breath at rest or shortness of breath with exertion Gastrointestinal Gastrointestinal: Denies abdominal (more content not included)... Normal [facility] Hand Min 3 Viewson Hand Min 3 Views [facility] Imaging Services [address] [place] [address] Hand Min 3 Views MR#: [id number] Acct: [id number] Name: ILENE SHAW Rep #: [id number] : 1950 F 75 From: Esmer Rhodes PCP: Dr. Jennifer Santos MD Status: REG ER Study: Hand Min 3 Views Date of Exam: 04/26/25 Exam# [id number] Ordering Dr: Darryn Baeza DO PROCEDURE: HAND MIN 3 VIEWS 04/26/2025 REASON FOR EXAM: CELLULITIS TECHNIQUE: Procedure Code: VALENTIN Modality: DX Procedure: HAND MIN 3 VIEWS Laterality: Right COMPARISON: none RAD/Hand Min 3 Views IMPRESSION: No acute fracture or dislocations. Scattered mild degenerative changes. Moderate soft tissue edema/inflammation about the right head, less compared to left hand. No radiographic foreign body. Reading Location: [facility] CC: Dr. Jennifer Santos MD; Dr. Darryn Baeza DO Manager Material: Signed Normal [facility] Hand Min 3 Views [facility] Imaging Services [address] [place], [place] [id number] Hand Min 3 Views MR#: [id number] Acct: [id number] Name: ILENE SHAW Rep #: [id number] : 1950 F 75 From: Esmer Rhodes PCP: Dr. Jennifer Santos MD Status: REG ER Study: Hand Min 3 Views Date of Exam: 04/26/25 Exam# [id number] Ordering Dr: Darryn Baeza DO PROCEDURE: HAND MIN 3 VIEWS 04/26/2025 REASON FOR EXAM: CELLULITIS TECHNIQUE: Procedure Code: VALENTIN Modality: DX Procedure: HAND MIN 3 VIEWS Laterality: Left COMPARISON: none RAD/Hand Min 3 Views IMPRESSION: No acute fracture or dislocations. Scattered mild degenerative changes. Extensive soft tissue edema/inflammation about the dorsal aspect of the hand. No radiographic foreign body. Reading Location: [facility] CC: Dr. Jennifer Santos MD; Dr. Darryn Baeza DO Manager Material: Signed Normal [facility] Lactic Acidon 04-26-2025 Lactate [Moles/Vol] 1.0 mmol/L Normal 0.0-2.0 [facility] Comment on above: Order Comment: Y Performed By: #### L 300.3900, L300.4310, L100.0100, L500.4050, L503.6005 #### [facility] [address] [facility] [place], [place], [id number] Partial Thromboplast Timeon 04-26-2025 aPTT Coag (Bld) [Time] 31.0 s Normal 24.1-36.2 [facility] Comment on above: Performed By: #### L 300.3900, L300.4310, L100.0100, L500.4050, L503.6005 ####[facility] [address] [place], [address] Prothrombin Time w/INRon INR Coag (PPP) [Relative time] 1.3 {INR} Normal [facility] Comment on above: Performed By: #### L 300.3900, L300.4310, L100.0100, L500.4050, L503.6005 #### [facility] [address] [place], [address] PT Coag (PPP) [Time] 16.3 s High 11.7-14.9 [facility] Comment on above: Performed By: #### L 300.3900, L300.4310, L100.0100, L500.4050, L503.6005 #### [facility] [address] [place], [address] Urinalysis, Completeon 04-26 BACTERIA 1+ /hpf Normal None Seen [facility] Comment on above: Order Comment: BRITNI CTOR TO SPECIFY Performed By: #### L 400.0001 #### [facility] [address] [place], [address] EPI,SQUAMOUS 0-5 SEEN Normal 5-10 [facility] Comment on above: Order Comment: BRITNI CTOR TO SPECIFY Performed By: #### L 400.0001 #### [facility] [address] [place], [address] WBC 0-5 SEEN Normal 0-5 [facility] Comment on above: Order Comment: BRITNI CTOR TO SPECIFY Performed By: #### L 400.0001 #### [facility] [address] [place], [address] Mucus Ql (Urine sed) 0 SEEN Normal [facility] Comment on above: Order Comment: BRITNI CTOR TO SPECIFY Performed By: #### L 400.0001 #### [facility] [address] [place], [address] RBC 0 SEEN Normal 0-5 [facility] Comment on above: Order Comment: BRITNI CTOR TO SPECIFY Performed By: #### L 400.0001 #### [facility] [address] [place], [address] Basic Metabolic Profile (BMP )on 04-24-2025 BUN/CRE 13.4 RATIO Normal 10-20 [facility] Comment on above: Performed By: #### L 500.2500, L100.0100 ####[facility] [address] [place], [address] Calcium [Mass/Vol] 8.4 mg/dL Normal 7.6-11.0 [facility] Comment on above: Performed By: #### L 500.2500, L100.0100 ####[facility] [address] [place], [address] Chloride [Moles/Vol] 106 mmol/L Normal 98-108 [facility] Comment on above: Performed By: #### L 500.2500, L100.0100 ####[facility] [address] [place], [address] CO2 [Moles/Vol] 18.7 mmol/L Low 21.0-32.0 [facility] Comment on above: Performed By: #### L 500.2500, L100.0100 ####[facility] [address] [place], [address] Creatinine [Mass/Vol] 1.00 mg/dL Normal 0.70-1.20 [facility] Comment on above: Performed By: #### L 500.2500, L100.0100 ####[facility] [address] [place], [address] ECRCL 50.66 ml/min Normal 50-250 [facility] Comment on above: Performed By: #### L 500.2500, L100.0100 ####[facility] [address] [place], [address] GAP 11 Normal 5-15 [facility] Comment on above: Performed By: #### L 500.2500, L100.0100 ####[facility] [address] [place], [address] GFR/1.73 sq M.predicted among non-blacks MDRD (S/P/Bld) [Vol rate/Area] 59 mL/min/{1.73_m2} Low >60 [facility] Comment on above: Result Comment: mL/m in/1.73m2 CKD-EPI Creatinine Equation (2020) Performed By: #### L 500.2500, L100.0100 ####[facility] [address] [place], [address] Glucose [Mass/Vol] 101 mg/dL High 70-99 [facility] Comment on above: Performed By: #### L 500.2500, L100.0100 ####[facility] [address] [place], [address] Potassium [Moles/Vol] 4.3 mmol/L Normal 3.3-5.1 [facility] Comment on above: Result Comment: Hemo lysis present, Results??could be affected. ?? Performed By: #### L 500.2500, L100.0100 ####[facility] [address] [place], [address] Sodium [Moles/Vol] 136 mmol/L Normal 133-145 [facility] Comment on above: Performed By: #### L 500.2500, L100.0100 ####[facility] [address] [place], [address] Urea nitrogen [Mass/Vol] 13 mg/dL Normal 4-19 [facility] Comment on above: Performed By: #### L 500.2500, L100.0100 ####[facility] [address] [place], [address] CBC W/Diff, Automatedon 11- 0-2024 Absolute Lymph 1.39 X10 3/uL Normal 0.83-4.51 [facility] Comment on above: Performed By: #### L 500.2500, L100.0100 ####[facility] [address] [place], [address] Absolute Neut 8.3 X10 3/uL High 2.0-7.7 [facility] Comment on above: Performed By: #### L 500.2500, L100.0100 ####[facility] [address] [place], [address] Basophils/100 WBC (Bld) 0.3 % Normal 0-1 [facility] Comment on above: Performed By: #### L 500.2500, L100.0100 ####[facility] [address] [place], [address] Eosinophils/100 WBC (Bld) 2.1 % Normal 0-5 [facility] Comment on above: Performed By: #### L 500.2500, L100.0100 ####[facility] [address] [place], [address] Erythrocyte distribution width (RBC) [Ratio] 12.5 % Normal 11.6-14.6 [facility] Comment on above: Performed By: #### L 500.2500, L100.0100 ####[facility] [address] [place], [address] Hematocrit (Bld) [Volume fraction] 40.0 % Normal 37-47 [facility] Comment on above: Performed By: #### L 500.2500, L100.0100 ####[facility] [address] [place], [address] Hemoglobin (Bld) [Mass/Vol] 13.2 g/dL Normal 12.0-15.0 [facility] Comment on above: Performed By: #### L 500.2500, L100.0100 ####[facility] [address] [place], [address] IG% 0.500 Normal 0.0-0.9 [facility] Comment on above: Result Comment: IG% - Immature Granulocytes (promyelocytes, myelocytes and metamyelocytes) > 1% indicates that a LEFT SHIFT is Present. Performed By: #### L 500.2500, L100.0100 ####[facility] [address] [place], [address] Lymphocytes/100 WBC (Bld) 13.2 % Low 19-41 [facility] Comment on above: Performed By: #### L 500.2500, L100.0100 ####[facility] [address] [place], [address] MCH (RBC) [Entitic mass] 31.4 pg Normal 27.0-32.0 [facility] Comment on above: Performed By: #### L 500.2500, L100.0100 ####[facility] [address] [place], [address] MCHC (RBC) [Mass/Vol] 33.0 g/dL Normal 32-36 [facility] Comment on above: Performed By: #### L 500.2500, L100.0100 ####[facility] [address] [place], [address] MCV (RBC) [Entitic vol] 95.0 fL Normal 81-99 [facility] Comment on above: Performed By: #### L 500.2500, L100.0100 ####[facility] [address] [place], [address] Monocytes/100 WBC (Bld) 5.9 % Normal 0-10 [facility] Comment on above: Performed By: #### L 500.2500, L100.0100 ####[facility] [address] [place], [address] Neutrophils/100 WBC (Bld) 78.0 % High 47-70 [facility] Comment on above: Performed By: #### L 500.2500, L100.0100 ####[facility] [address] [place], [address] Nucleated RBC (Bld) [#/Vol] 0 10*3/uL Normal 0-5 [facility] Comment on above: Performed By: #### L 500.2500, L100.0100 ####[facility] [address] [place], [address] Platelet mean volume (Bld) [Entitic vol] 10.9 fL Normal 6.2-12.0 [facility] Comment on above: Performed By: #### L 500.2500, L100.0100 ####[facility] [address] [place], [address] Platelets (Bld) [#/Vol] 247 10*3/uL Normal 150-450 [facility] Comment on above: Performed By: #### L 500.2500, L100.0100 ####[facility] [address] [place], [address] RBC (Bld) [#/Vol] 4.21 10*6/uL Normal 4.2-5.4 [facility] Comment on above: Performed By: #### L 500.2500, L100.0100 ####[facility] [address] [place], [address] RDW SD 43.5 fl Normal 35.1-43.9 [facility] Comment on above: Performed By: #### L 500.2500, L100.0100 ####[facility] [address] [place], [address] WBC (Bld) [#/Vol] 10.6 10*3/uL Normal 4.4-11.0 [facility] Comment on above: Performed By: #### L 500.2500, L100.0100 ####[facility] [address] [facility] [place], [address] Emergency Department Summary on 04-24-2025 Emergency Department Summary [facility] Medical Records Department [address] [facility] [place] [address] Emergency Department Summary 04/24/25 MR#: [id number] Acct: [id number] Name: ILENE SHAW Rep #: [id number] : 1950 75 From: Darryn Baeza DO [...] she is not currently on any antibiotics [facility] Medical History Depression with anxiety Obesity [...] follow commands and that she was at [facility] year is 2024 sensation grossly intact in [...] a andrea (more content not included)... [facility] Office Visit (INTMWS ) LISAILENE ORDAZ ([id number]) 1950 F Date Time Provider Department 04/13/25 10:40 AM KELLE PETER INTMWS During your visit today, we recorded the following information about you: Pulse Respiration Blood pressure Weight 77/minute 16/minute 130/80 88.9 kg Kelle Peter APRN.CNP 04/17/2025 8:20 AM Signed CC: Patient presents with: Recheck: [facility] ER follow up, DVT in leg HPI Ilene Shaw is a 75 year old female who presents today for follow up. Recording using [employer] software for draft documentation of the visit was discussed with the patient/authorized senior patient account representative; all questions welcomed and answered. Patient/authorized senior patient account representative agreed to proceed Ilene is a 75-year-old [...] Screening Discontinued DATA REVIEWED: Outside chart from [facility] reviewed. Assessment/Plan 1. Acute embolism and thrombosis of deep vein of left lower extremity (HCC) (I82.402) 2. Dizziness and giddiness (R42) - Recent DVT of left inner thigh diagnosed on ; started on Eliquis with sub (more content not included)... Normal [facility] 12 Lead EKGon 04-07-2025 12 Lead EKG [facility] Cardiovascular Services [address] [place] [address] 12 Lead EKG 04/07/25 0046 MR#: [id number] Acct: [id number] Name: ILENE SHAW Rep #: [id number] : 1950 75 From: Roselia Toney MD Attending Dr: Dr. Bran Courtney DO Status: DIS IN Ordering Dr: Venkat Mustafa MD Date: 04/07/25 Location: [facility] Sex: F C Admitted: [...] Normal ECG Confirmed by ROSELIA TONEY ([id number]), senior technical editor ANTONIETA GONZALES ([id number]) on 04/10/2025 6:32:12 AM Referred By: Confirmed By: ROSELIA TONEY 04/10/25 0632 Date Roselia Toney MD CC: Dr. Venkat Mustafa MD; Dr. Jennifer Santos MD; Dr. Bran Courtney DO Signed Normal [facility] Absolute lymphocyte countOrd ered By: Venkat Mustafa on 04-07-2025 Lymphocytes Auto (Unsp spec) [#/Vol] 2.13 10*3/uL 0.83-4.51 [facility] Absolute neutrophil countOrd ered By: Venkat Mustafa on 04-07-2025 Neutrophils (Bld) [#/Vol] 5.1 10*3/uL 2.0-7.7 [facility] Alcohol, Blood (Medical)-Ser umon 04-07-2025 SERUM ETOH < 10.1 Normal <=10.0 [facility] Comment on above: Result Comment: This test is for medical purposes only. The legal definition of intoxication varies according to local law. Performed By: #### L 501.9985, L501.9572, L505.5000, L501.9100 ####[facility] [address] [place], [place], [address] Amphetamine detection with 1 000 ng/mL as cutoffOrdered By: Milo Mcnally on 04-07-2025 Amphetamines Screen method >1000 ng/mL Ql (U) Negative < 200 ng/mL [facility] Anion gap in Serum or Plasma Ordered By: Venkat Mustafa on 04-07-2025 Anion gap [Moles/Vol] 10 mmol/L 5- [facility] Automated lymphocyte count a s percentage of total leukocytesOrdered By: Venkat Mustafa on 04-07-2025 Lymphocytes/100 WBC Auto (Unsp spec) 25.2 % - [facility] BUN/creatinine ratioOrdered By: Venkat Mustafa on 04-07-2025 Urea nitrogen/Creatinine [Mass ratio] 10.1 mg/mg 10- [facility] Basophil percentageOrdered B y: Venkat Mustafa on 04-07-2025 Basophils/100 WBC (Bld) 0.6 % 0-1 [facility] Bilirubin Test strip Ql (U)O rdered By: Venkat Mustafa on 04-07-2025 Bilirubin Ql (U) Negative Negative [facility] Bilirubin, totalOrdered By: Venkat Mustafa on 04-07-2025 Bilirubin [Mass/Vol] 0.31 mg/dL 0.00-1.30 [facility] Brain without Contraston Brain without Contrast [facility] Imaging Services [address] [place], [place] [address] Brain without Contrast MR#: [id number] Acct: [id number] Name: ILENE SHAW Rep #: [id number] : 1950 F 75 From: Kal Andrea MD PCP: Dr. Jennifer Santos MD Status: ADM IN Study: Brain without Contrast Date of Exam: 04/07/25 Exam# [id number] Ordering Dr: Milo Celaya DO PROCEDURE: BRAIN [...] IMPRESSION: No acute brain abnormalities. Reading Location: [facility] CC: Dr. Jennifer Santos MD; Dr. Milo Celaya DO Manager Material: Signed Normal [facility] Brain/Head without Contrasto n 04-07-2025 Brain/Head without Contrast [facility] Imaging Services [address] [place] [address] Brain/Head without Contrast MR#: [id number] Acct: [id number] Name: ILENE SHAW Rep #: [id number] : 1950 F 75 From: Carter gil MD PCP: Dr. Jennifer Santos MD Status: REG ER Study: Brain/Head without Contrast Date of Exam: 03/16 10/07 Exam# [id number] Ordering Dr: Venkat Mustafa MD PROCEDURE: BRAIN/HEAD [...] cerebral mild microvascular ischemic changes. Reading [facility] CC: Dr. Venkat Mustafa MD; Dr. Jennifer Santos MD Manager Material: Signed Normal [facility] CBC W/Diff, Automatedon 10- Absolute Lymph 2.13 X10 3/uL Normal 0.83-4.51 [facility] Comment on above: Performed By: #### L 500.4050, L100.0100 ####[facility] [address] [place], [address] Absolute Neut 5.1 X10 3/uL Normal 2.0-7.7 [facility] Comment on above: Performed By: #### L 500.4050, L100.0100 ####[facility] [address] [place], [address] Basophils/100 WBC (Bld) 0.6 % Normal 0-1 [facility] Comment on above: Performed By: #### L 500.4050, L100.0100 ####[facility] [address] [place], [address] Eosinophils/100 WBC (Bld) 7.8 % High 0-5 [facility] Comment on above: Performed By: #### L 500.4050, L100.0100 ####[facility] [address] [place], [address] Erythrocyte distribution width (RBC) [Ratio] 13.1 % Normal 11.6-14.6 [facility] Comment on above: Performed By: #### L 500.4050, L100.0100 ####[facility] [address] [place], [address] Hematocrit (Bld) [Volume fraction] 40.6 % Normal 37-47 [facility] Comment on above: Performed By: #### L 500.4050, L100.0100 ####[facility] [address] [place], [address] Hemoglobin (Bld) [Mass/Vol] 13.8 g/dL Normal 12.0-15.0 [facility] Comment on above: Performed By: #### L 500.4050, L100.0100 ####[facility] [address] [place], [address] IG% 0.200 Normal 0.0-0.9 [facility] Comment on above: Result Comment: IG% - Immature Granulocytes (promyelocytes, myelocytes and metamyelocytes) > 1% indicates that a LEFT SHIFT is Present. Performed By: #### L 500.4050, L100.0100 ####[facility] [address] [place], [address] Lymphocytes/100 WBC (Bld) 25.2 % Normal 19-41 [facility] Comment on above: Performed By: #### L 500.4050, L100.0100 ####[facility] [address] [place], [address] MCH (RBC) [Entitic mass] 31.1 pg Normal 27.0-32.0 [facility] Comment on above: Performed By: #### L 500.4050, L100.0100 ####[facility] [address] [place], [address] MCHC (RBC) [Mass/Vol] 34.0 g/dL Normal 32-36 [facility] Comment on above: Performed By: #### L 500.4050, L100.0100 ####[facility] [address] [place], [address] MCV (RBC) [Entitic vol] 91.4 fL Normal 81-99 [facility] Comment on above: Performed By: #### L 500.4050, L100.0100 ####[facility] [address] [place], [address] Monocytes/100 WBC (Bld) 6.5 % Normal 0-10 [facility] Comment on above: Performed By: #### L 500.4050, L100.0100 ####[facility] [address] [place], [address] Neutrophils/100 WBC (Bld) 59.7 % Normal 47-70 [facility] Comment on above: Performed By: #### L 500.4050, L100.0100 ####[facility] [address] [place], [address] Nucleated RBC (Bld) [#/Vol] 0 10*3/uL Normal 0-5 [facility] Comment on above: Performed By: #### L 500.4050, L100.0100 ####[facility] [address] [place], [address] Platelet mean volume (Bld) [Entitic vol] 11.9 fL Normal 6.2-12.0 [facility] Comment on above: Performed By: #### L 500.4050, L100.0100 ####[facility] [address] [place], [address] Platelets (Bld) [#/Vol] 273 10*3/uL Normal 150-450 [facility] Comment on above: Performed By: #### L 500.4050, L100.0100 ####[facility] [address] [place], [address] RBC (Bld) [#/Vol] 4.44 10*6/uL Normal 4.2-5.4 [facility] Comment on above: Performed By: #### L 500.4050, L100.0100 ####[facility] [address] [place], [address] RDW SD 44.1 fl High 35.1-43.9 [facility] Comment on above: Performed By: #### L 500.4050, L100.0100 ####[facility] [address] [place], [address] WBC (Bld) [#/Vol] 8.5 10*3/uL Normal 4.4-11.0 [facility] Comment on above: Performed By: #### L 500.4050, L100.0100 ####[facility] [address] [place], [address] CTA Head AND Neck W/ Contras ton 04-07-2025 CTA Head AND Neck W/ Contrast [facility] Imaging Services [address] [place] [address] CTA Head AND Neck W/ Contrast MR#: [id number] Acct: [id number] Name: ILENE SHAW Rep #: [id number] : 1950 F 75 From: Carter gil MD PCP: Dr. Jennifer Santos MD Status: [facility] ER Study: CTA Head AND Neck W/ Contrast Date of Exam: Exam# [id number] Ordering Dr: Venkat Mustafa MD PROCEDURE: CTA [...] dilatation or dissecting intimal flaps. Reading Location: [place] [address] CC: Dr. Venkat Mustafa MD; Dr. Jennifer Santos MD Manager Material: Signed Normal [facility] Calculated very low density lipoprotein (VLDL) cholesterol measurementOrdered By: Milo Mcnally on 04-07-2025 Calculated very low density lipoprotein (VLDL) cholesterol measurement 25 mg/dL 5-40 [facility] Carbon dioxide, total [Moles /volume] in Central venous bloodOrdered By: Venkat Mustafa on 04-07-2025 CO2 [Moles/Vol] 26.3 mmol/L 21.0-32.0 [facility] Carotid Duplex Ultrasoundon 04-07-2025 Carotid Duplex Ultrasound [facility] Cardiovascular Services [address] [place] [address] Carotid Duplex Ultrasound 04/07/25 1032 MR#: [id number] Acct: [id number] Name: ILENE SHAW Rep #: [id number] : 1950 75 From: Marlo Storm MD Attending Dr: Dr. Bran Courtney DO Status: DIS IN Ordering Dr: Milo Celaya DO Date: 04/07/25 Location: [facility] Sex: F C Admitted: 04/07/25 Reason For [...] the left vertebral artery. Procedure Carotid Duplex 72508. This is a Carotid Duplex examination using [...] Date Dictated: 04/07/25 1032 Date Transcribed: 04/08/251610 Manager Material: Signed Normal [facility] Chloride assayOrdered By: Kenan Mustafa on 04-07-2025 Chloride [Moles/Vol] 105 mmol/L 98-108 [facility] Comprehensive Metabolic Prof ilon 04-07-2025 Albumin [Mass/Vol] 3.9 g/dL Normal 3.4-4.8 [facility] Comment on above: Performed By: #### L 500.4050, L100.0100 ####[facility] [address] [place], [address] Albumin/Globulin [Mass ratio] 1.3 {ratio} Normal 0.9-2.4 [facility] Comment on above: Performed By: #### L 500.4050, L100.0100 ####[facility] [address] [place], [address] ALK PHOS 88 U/L Normal 35-104 [facility] Comment on above: Performed By: #### L 500.4050, L100.0100 ####[facility] [address] [place], [address] ALT [Catalytic activity/Vol] 9 U/L Normal <=34 [facility] Comment on above: Performed By: #### L 500.4050, L100.0100 ####[facility] [address] [place], [address] AST [Catalytic activity/Vol] 26 U/L Normal <=31 [facility] Comment on above: Performed By: #### L 500.4050, L100.0100 ####[facility] [address] [place], [address] Bilirubin [Mass/Vol] 0.31 mg/dL Normal 0.00-1.30 [facility] Comment on above: Performed By: #### L 500.4050, L100.0100 ####[facility] [address] [place], [address] BUN/CRE 10.1 RATIO Normal 10-20 [facility] Comment on above: Performed By: #### L 500.4050, L100.0100 ####[facility] [address] [place], [address] Calcium [Mass/Vol] 8.8 mg/dL Normal 7.6-11.0 [facility] Comment on above: Performed By: #### L 500.4050, L100.0100 ####[facility] [address] [place], [address] Chloride [Moles/Vol] 105 mmol/L Normal 98-108 [facility] Comment on above: Performed By: #### L 500.4050, L100.0100 ####[facility] [address] [place], [address] CO2 [Moles/Vol] 26.3 mmol/L Normal 21.0-32.0 [facility] Comment on above: Performed By: #### L 500.4050, L100.0100 ####[facility] [address] [place], [address] Creatinine [Mass/Vol] 0.86 mg/dL Normal 0.70-1.20 [facility] Comment on above: Performed By: #### L 500.4050, L100.0100 ####[facility] [address] [place], [address] ECRCL 57.91 ml/min Normal 50-250 [facility] Comment on above: Performed By: #### L 500.4050, L100.0100 ####[facility] [address] [place], [address] GAP 10 Normal 5-15 [facility] Comment on above: Performed By: #### L 500.4050, L100.0100 ####[facility] [address] [place], [address] GFR/1.73 sq M.predicted among non-blacks MDRD (S/P/Bld) [Vol rate/Area] 70 mL/min/{1.73_m2} Normal >60 [facility] Comment on above: Result Comment: mL/m in/1.73m2 CKD-EPI Creatinine Equation (2020) Performed By: #### L 500.4050, L100.0100 ####[facility] [address] [place], [address] Globulin (S) [Mass/Vol] 3.1 g/dL Normal 2.2-4.2 [facility] Comment on above: Performed By: #### L 500.4050, L100.0100 ####[facility] [address] [place], [address] Glucose [Mass/Vol] 124 mg/dL High 70-99 [facility] Comment on above: Performed By: #### L 500.4050, L100.0100 ####[facility] [address] [place], [address] Potassium [Moles/Vol] 3.8 mmol/L Normal 3.3-5.1 [facility] Comment on above: Performed By: #### L 500.4050, L100.0100 ####[facility] [address] [place], [address] Sodium [Moles/Vol] 142 mmol/L Normal 133-145 [facility] Comment on above: Performed By: #### L 500.4050, L100.0100 ####[facility] [address] [place], [address] T PROT 6.9 g/dL Normal 5.9-8.4 [facility] Comment on above: Performed By: #### L 500.4050, L100.0100 ####[facility] [address] [place], [address] Urea nitrogen [Mass/Vol] 9 mg/dL Normal 4-19 [facility] Comment on above: Performed By: #### L 500.4050, L100.0100 ####[facility] [address] [place], [address] Echo Complete W/ Contraston 04-07-2025 Echo Complete W/ Contrast [facility] Cardiovascular Services [address] [place] [address] Echo Complete W/ Contrast 04/07/25 0950 MR#: [id number] Acct: [id number] Name: ILENE SHAW Rep #: [id number] : 1950 75 From: Roselia Toney MD [...] DO; Dr. Bran Courtney DO Date Dictated: 04/07/25949 Date Transcribed: 04/07/251616 Manager Material: Signed Normal [facility] Emergency Department Summary on 04-07-2025 Emergency Department Summary [facility] Medical Records Department [address] [place] [address] Emergency Department Summary 04/07/25 MR#: [id number] Acct: [id number] Name: ILENE SHAW Rep #: [id number] : 1950 75 From: Venkat Mustafa MD [...] onset of dizziness and confusion today around 2043-4179 after taking Eliquis. However, patient keeps saying [...] well as 81 mg aspirin at night. [facility] Medical History Vaginal candidiasis Acute bronchitis, [...] PERRL a (more content not included)... Normal [facility] Eosinophil percentageOrdered By: Venkat Mustafa on 04-07-2025 Eosinophils/100 WBC (Bld) 7.8 % High 0-5 [facility] Erythrocyte distribution wid th ratioOrdered By: Venkat Mustafa on 04-07-2025 Erythrocyte distribution width (RBC) [Ratio] 13.1 % 11.6-14.6 [facility] Erythrocyte distribution wid th standard deviationOrdered By: Venkat Mustafa on 04-07-2025 Erythrocyte distribution width (RBC) [Ratio] 44.1 fl High 35.1-43.9 [facility] Free T3on 04-07-2025 Free T3 [Mass/Vol] 3.1 pg/mL Normal 2.18-3.98 [facility] Comment on above: Performed By: #### L 506.0400, L501.80421 ####[facility] [address] [place], [address] Free E6Pyilvlx By: Milo lopes on 04-07-2025 Free T3 [Mass/Vol] 3.1 pg/mL 2.18-3.98 [facility] Glomerular filtration rate ( GFR) estimation/1.73 sq m using serum, plasma, or whole bOrdered By: Venkat Mustafa on 04-07-2025 GFR/1.73 sq M.predicted among non-blacks MDRD (S/P/Bld) [Vol rate/Area] 70 mL/min/{1.73_m2} >60 [facility] Comment on above: mL/min/1.73m2 CKD-EP I Creatinine Equation (2020) H AND P Exam - [place]iston 04-07-2025 H&P Exam - Hospitalist [facility] Medical Records Department [address] [facility] [place] [address] H P Exam - Hospitalist 04/07/25 0249 MR#: [id number] Acct: [id number] Name: ILENE SHAW Rep #: [id number] : 1950 75 From: Milo Celaya DO PCP: Dr. Jennifer Santos MD Status:ADM IN Location[facility] [place] [id number] - General General Date of Admission: 04/07/25 [...] renal calculi and OA who presents to [facility] ER complaining of dizziness and confusion. Ms. [...] is expected to extend beyond 2 midnights. [facility] Medical History Vaginal candidiasis Acute bronchitis, unspecified [...] .Route 04/04 Unknown Rx a dose pack (IdealSeat DVT-PE Treat .COMPLEX #74 tabs 30D Start) [...] or jaundice. (more content not included)... Normal [facility] Hematocrit Auto (Bld) [Volum e fraction]Ordered By: Venkat Mustafa on 04-07-2025 Hematocrit (Bld) [Volume fraction] 40.6 % 37-47 [facility] Hemoglobin A1con 04-07-2025 HbA1c (Bld) [Mass fraction] 5.3 % Normal <=5.6 [facility] Comment on above: Result Comment: Norm al < 5.7 % Prediabetic 5.7 - 6.4 % Diabetic >or= 6.5 % Please note range changes. Performed By: #### L 501.9985, L501.9520, L505.5000, L501.9100 ####[facility] [address] [place], [address] Hemoglobin A1c percentageOrd ered By: Milo Mcnally on 04-07-2025 HbA1c (Bld) [Mass fraction] 5.3 % <5.7 [facility] Comment on above: Normal < 5.7 % Predi abetic 5.7 - 6.4 % Diabetic >or= 6.5 % Please note range changes. Hemoglobin measurementOrdere d By: Venkat Mustafa on 04-07-2025 Hemoglobin (Bld) [Mass/Vol] 13.8 g/dL 12.0-15.0 [facility] Immature granulocytes/100 WB C Auto (Bld)Ordered By: Venkat Mustafa on 04-07-2025 Immature granulocytes/100 WBC (Bld) 0.200 % 0.0-0.9 [facility] Comment on above: IG% - Immature Granu locytes (promyelocytes, myelocytes and metamyelocytes) > 1% indicates that a LEFT SHIFT is Present. Ketones Test strip Ql (U)Ord ered By: Venkat Mustafa on 04-07-2025 Ketones Ql (U) Negative Negative [facility] LDL calc ser/plasOrdered By: Milo Mcnally on 04-07-2025 Cholesterol in LDL [Mass/Vol] 134 mg/dL [facility] Comment on above: Xcyytiqies=653-218 m g/dL & Higher Aqjt=965 mg/dL or greaterSampson Equation 2020 for LDL-C Laboratory - Chemistry and C hemistry - challengeOrdered By: Venkat Mustafa on 04-07-2025 AST [Catalytic activity/Vol] 26 U/L <32 [facility] Lipid Profileon 04-07-2025 CHOL:HDL 4.88 Normal [facility] Comment on above: Order Comment: Comme nts: NPO at [place] prior to lipid panel Performed By: #### L 500.4100 ####[facility] [address] [place], [address] Cholesterol [Mass/Vol] 197 mg/dL Normal <=200 [facility] Comment on above: Order Comment: Comme nts: NPO at [place] prior to lipid panel Result Comment: Chol esterol level, Desirable <200 mg/dL Borderline high cholesterol 200-239 mg/dL High cholesterol >=240 mg/dL Recommendations of the NCEP Adult Treatment Panel for the following risk-cutoff thresholds for the [place] population. Performed By: #### L 500.4100 ####[facility] [address] [place], [address] Cholesterol in HDL [Mass/Vol] 40 mg/dL Normal [facility] Comment on above: Order Comment: Comme nts: NPO at [place] prior to lipid panel Result Comment: Maryuri onal Cholesterol Education Program (NCEP) guidelines: <40 mg/dL: Low HDL-cholesterol (major risk factor for CHD) >= 60 mg/dL: High HDL-cholesterol (negative risk factor for CHD) HDL-cholesterol is affected by a number of factors, e.g. smoking, exercise, hormones, sex and age. Performed By: #### L 500.4100 ####[facility] [address] [place], [address] Cholesterol in LDL [Mass/Vol] 134 mg/dL Normal [facility] Comment on above: Order Comment: Comme nts: NPO at [place] prior to lipid panel Result Comment: Bord gtzzjy=714-738 mg/dL Higher Edjg=862 mg/dL or greater [place] Equation 2020 for LDL-C Performed By: #### L 500.4100 ####[facility] [id number] [place], [place], [id number] Cholesterol in VLDL [Mass/Vol] 25 mg/dL Normal 5-40 [facility] Comment on above: Order Comment: Comme nts: NPO at [place] prior to lipid panel Performed By: #### L 500.4100 ####[facility] [id number] [place], [place], [id number] Triglyceride [Mass/Vol] 124 mg/dL Normal [facility] Comment on above: Order Comment: Comme nts: NPO at [place] prior to lipid panel Result Comment: The drugs N-Acetylcysteine and Metamizole may falsely depress this assay. Normal range: <150 mg/dL Borderline High: 150-199 mg/dL High: 200-499 mg/dL Very High: >500 mg/dL Performed By: #### L 500.4100 ####[facility] [id number] [facility] [place], [place], [id number] MCV (mean corpuscular volume ) determinationOrdered By: Venkat Mustafa on 04-07-2025 MCV (RBC) [Entitic vol] 91.4 fL 81-99 [facility] MR/CON.PCM.NEon 04-07-2025 MR/CON.PCM.NE [facility] Medical Records Department [address] [place] [address] Consultation - Neurology 04/07/25 1629 MR#: [id number] Acct: [id number] Name: ILENE SHAW Rep #: [id number] : [id number] 75 From: Alen Gray MD PCP: Dr. Jennifer Santos MD Status:ADM IN Location: [place] [address] Assessment and Plan: Neuro Assessment/Plan ILENE SHAW [...] appropriate treatment and workup. Alen Gray MD [employer], [facility] Teleneurology HPI Consult Data Date of Consult: [...] been walkign through the halls" without difficulty. [facility] Medical History Vaginal candidiasis Acute bronchitis, unspecified [...] Position Eugenio (more content not included)... Normal [facility] Mean corpuscular hemoglobin (MCH) determinationOrdered By: Venkat Mustafa on 04-07-2025 MCH (RBC) [Entitic mass] 31.1 pg 27.0-32.0 [facility] Mean corpuscular hemoglobin concentration (MCHC) determinationOrdered By: Venkat Mustafa on 04-07-2025 MCHC (RBC) [Mass/Vol] 34.0 g/dL 32-36 [facility] Mean platelet volume determi nationOrdered By: Venkat Mustafa on 04-07-2025 Platelet mean volume (Bld) [Entitic vol] 11.9 fL 6.2-12.0 [facility] Microscopic analysis of urin e for red blood cells (RBC)Ordered By: Venkat Mustafa on 04-07-2025 Microscopic analysis of urine for red blood cells (RBC) 0 SEEN /hpf 0-5 [facility] Monocyte percentageOrdered B y: Venkat Mustafa on 04-07-2025 Monocytes/100 WBC (Bld) 6.5 % 0-10 [facility] Mucus LM Ql (Urine sed)Order ed By: Venkat Mustafa on 04-07-2025 Mucus Ql (Urine sed) 0 SEEN /hpf [facility] Neutrophil percentageOrdered By: Venkat Mustafa on 04-07-2025 Neutrophils/100 WBC (Bld) 59.7 % 47-70 [facility] Nitrite Test strip Ql (U)Ord ered By: Venkat Mustafa on 04-07-2025 Nitrite Ql (U) Negative Negative [facility] No Panel InformationOrdered By: Milo Mcnally on 04-07-2025 Urine Buprenorphine Qualitative Negative < 200 ng/mL [facility] Urine Oxycodone Screen Negative < 100 ng/mL [facility] Nucleated red blood cell per centageOrdered By: Venkat Mustafa on 04-07-2025 Nucleated RBC/100 WBC (Bld) [Ratio] 0 % 0-5 [facility] Platelet countOrdered By: Kenan Mustafa on 04-07-2025 Platelets (Bld) [#/Vol] 273 10*3/uL 150-450 [facility] Potassium measurement (mass/ volume)Ordered By: Venkat Mustafa on 04-07-2025 Potassium (Unsp spec) [Mass/Vol] 3.8 mmol/L 3.3-5.1 [facility] Protein Test strip Ql (U)Ord ered By: Venkat Mustafa on 04-07-2025 Protein Ql (U) Negative Negative [facility] Quantitative urine opiates m easurementOrdered By: Milo Mcnally on 04-07-2025 Opiates Ql (U) Negative < 300 ng/mL [facility] RBC Auto (Bld) [#/Vol]Ordere d By: Venkat Mustafa on 04-07-2025 RBC (Bld) [#/Vol] 4.44 10*6/uL 4.2-5.4 [facility] Screening total cholesterol/ high density lipoprotein (HDL) cholesterol ratioOrdered By: Milo Mcnally on 04-07-2025 Cholesterol.total/Chol esterol in HDL [Mass ratio] 4.88 {ratio} [facility] Screening urine fentanyl leonid surementOrdered By: Milo Mcnally on 04-07-2025 fentaNYL Screen Ql (U) Negative <5 ng/mL [facility] Comment on above: CONFIRMATORY TESTING FOR ALL [...] must be ordered separately. Use test mnemonic: PRCA Serum creatinine measurement (mass/volume)Ordered By: Venkat Mustafa on 04-07-2025 Creatinine [Mass/Vol] 0.86 mg/dL 0.70-1.20 [facility] Serum globulin measurementOr dered By: Venkat Mustafa on 04-07-2025 Globulin (S) [Mass/Vol] 3.1 g/dL 2.2-4.2 [facility] Serum glucose measurement (m ass/volume)Ordered By: Venkat Mustafa on 04-07-2025 Glucose [Mass/Vol] 124 mg/dL High 70-99 [facility] Serum or plasma alanine william otransferase (ALT) measurementOrdered By: Venkat Mustafa on 04-07-2025 ALT [Catalytic activity/Vol] 9 U/L <35 [facility] Serum or plasma albumin iwona urement (mass/volume)Ordered By: Venkat Mustafa on 04-07-2025 Albumin [Mass/Vol] 3.9 g/dL 3.4-4.8 [facility] Serum or plasma albumin/glob ulin mass ratioOrdered By: Venkat Mustafa on 04-07-2025 Albumin/Globulin [Mass ratio] 1.3 {ratio} 0.9-2.4 [facility] Serum or plasma alkaline alma sphatase measurementOrdered By: Venkat Mustafa on 04-07-2025 ALP [Catalytic activity/Vol] 88 U/L 35-104 [facility] Serum or plasma calcium iwona urement (mass/volume)Ordered By: Venkat Mustafa on 04-07-2025 Calcium [Mass/Vol] 8.8 mg/dL 7.6-11.0 [facility] Serum or plasma cholesterol in HDL measurement (mass/volume)Ordered By: Milo Mcnally on 04-07-2025 Cholesterol in HDL [Mass/Vol] 40 mg/dL >40 [facility] Comment on above: National Cholesterol Education Program (NCEP) guidelines:<40 mg/dL: Low HDL-cholesterol (major risk factor for CHD)>= 60 mg/dL: High HDL-cholesterol (negative risk factor for CHD)HDL-cholesterol is affected by a number of factors, e.g. smoking, exercise, hormones, sex and age. Serum or plasma cholesterol measurement (mass/volume)Ordered By: Milo Mcnally on 04-07-2025 Cholesterol [Mass/Vol] 197 mg/dL <201 [facility] Comment on above: Cholesterol level, D esirable <200 mg/dLBorderline high cholesterol 200-239 mg/dLHigh cholesterol >=240 mg/dLRecommendations of the NCEP Adult Treatment Panel for the following risk-cutoff thresholds for the [place] population. Serum or plasma ethanol iwona urement (mass/volume)Ordered By: Milo Mcnally on 04-07-2025 Ethanol [Mass/Vol] mg/dL <10.1 [facility] Comment on above: This test is for med ical purposes only. The legal definition of intoxication varies according to local law. Serum or plasma urea nitroge n measurement (mass/volume)Ordered By: Venkat Mustafa on 04-07-2025 Urea nitrogen [Mass/Vol] 9 mg/dL 4-19 [facility] Sodium levelOrdered By: Andrew Mustafa on 04-07-2025 Sodium [Moles/Vol] 142 mmol/L 133-145 [facility] Squamous epithelial cells de tection in urine sediment by light microscopyOrdered By: Venkat Mustafa on 04-07-2025 Epithelial cells.squamous LM Ql (Urine sed) 0-5 SEEN /hpf 5-10 [facility] T4 Free Directon 04-07-2025 T4 FREE DIRECT 0.80 ng/dL Normal 0.76-1.46 [facility] Comment on above: Performed By: #### L 506.0400, L501.33506 ####[facility] [id number] [place], [place], [id number] T4 freeOrdered By: Milo lopes on 04-07-2025 Free T4 [Mass/Vol] 0.80 ng/dL 0.76-1.46 [facility] TSH DL <= 0.005 mIU/L QnOrde red By: Milo Mcnally on 04-07-2025 TSH Qn 8.080 uIU/mL High 0.300-4.200 [facility] Thyroid Stim Hormone (TSH)on 04-07-2025 TSH 8.080 uIU/mL High 0.300-4.200 [facility] Comment on above: Performed By: #### L 501.9985, L501.9520, L505.5000, L501.9100 ####[facility] [id number] [place], [place], [id number] Total proteinOrdered By: Taylor Mustafa on 04-07-2025 Protein [Mass/Vol] 6.9 g/dL 5.9-8.4 [facility] Triglycerides measurementOrd ered By: Milo Mcnally on 04-07-2025 Triglyceride [Mass/Vol] 124 mg/dL <199 [facility] Comment on above: The drugs N-Acetylcy steine and Metamizole may falsely depress this assay. Normal range: <150 mg/dLBorderline High: 150-199 mg/dLHigh: 200-499 mg/dLVery High: >500 mg/dL Urinalysis, Completeon 04-07 BACTERIA RARE Normal None Seen [facility] Comment on above: Order Comment: COLLE CTOR TO SPECIFY Performed By: #### L 400.0001 ####[facility] [id number] [place], [address] EPI,SQUAMOUS 0-5 SEEN Normal 5-10 [facility] Comment on above: Order Comment: COLLE CTOR TO SPECIFY Performed By: #### L 400.0001 ####[facility] [id number] [place], [address] Mucus Ql (Urine sed) 0 SEEN Normal [facility] Comment on above: Order Comment: BRITNI CTOR TO SPECIFY Performed By: #### L 400.0001 ####[facility] [address] [place], [address] RBC 0 SEEN Normal 0-5 [facility] Comment on above: Order Comment: BRITNI CTOR TO SPECIFY Performed By: #### L 400.0001 ####[facility] [id number] [place], [address] WBC 0 SEEN Normal 0-5 [facility] Comment on above: Order Comment: BRITNI CTOR TO SPECIFY Performed By: #### L 400.0001 ####[facility] [address] [place], [address] Urine Drug Screen (VISTA)on 04-07-2025 AMPHETAMINES Negative Normal <1000 ng/mL [facility] Comment on above: Performed By: #### L 501.9985, L501.9520, L505.5000, L501.9100 ####[facility] [address] [place], [address] BARBITIURATES Negative Normal < 200 ng/mL [facility] Comment on above: Performed By: #### L 501.9985, L501.9520, L505.5000, L501.9100 ####[facility] [address] [place], [address] BENZODIAZIPINE Negative Normal < 200 ng/mL [facility] Comment on above: Performed By: #### L 501.9985, L501.9520, L505.5000, L501.9100 ####[facility] [address] [place], [address] BUP Ur Drug Scr Negative Normal < 200 ng/mL [facility] Comment on above: Performed By: #### L 501.9985, L501.9520, L505.5000, L501.9100 ####[facility] [address] [place], [address] COCAINE Negative Normal < 300 ng/mL [facility] Comment on above: Performed By: #### L 501.9985, L501.9520, L505.5000, L501.9100 ####[facility] [address] [place], [address] Fentanyl Negative Normal <5 ng/mL [facility] Comment on above: Result Comment: CONF IRMATORY [...] By: #### L 501.9985, L501.9520, L505.5000, L501.9100 ####[facility] [address] [facility] [address] METHADONE Negative Normal < 300 ng/mL [facility] Comment on above: Performed By: #### L 501.9985, L501.9520, L505.5000, L501.9100 ####[facility] [address] [place], [address] OPIATES Negative Normal < 300 ng/mL [facility] Comment on above: Performed By: #### L 501.9985, L501.9520, L505.5000, L501.9100 ####[facility] [address] [place], [address] OXYCODONE Negative Normal < 100 ng/mL [facility] Comment on above: Performed By: #### L 501.9985, L501.9520, L505.5000, L501.9100 ####[facility] [address] [place], [address] PCP Negative Normal < 25 ng/mL [facility] Comment on above: Performed By: #### L 501.9985, L501.9520, L505.5000, L501.9100 ####[facility] [address] [place], [address] THC Negative Normal < 50 ng/mL [facility] Comment on above: Performed By: #### L 501.9985, L501.9520, L505.5000, L501.9100 ####[facility] [address] [place], [address] Urine benzodiazepine levelOr dered By: Milo Mcnally on 04-07-2025 Benzodiazepines Ql (U) Negative < 200 ng/mL [facility] Urine clarityOrdered By: Taylor Mustafa on 04-07-2025 Clarity (U) Clear Clear [facility] Urine cocaine levelOrdered B y: Milo Mcnally on 04-07-2025 Cocaine Ql (U) Negative < 300 ng/mL [facility] Urine color determinationOrd ered By: Venkat Mustafa on 04-07-2025 Color (U) Yellow Yellow [facility] Urine hxdxg-4-hjhpckqvrtalqn abinol (THC) measurementOrdered By: Milo Mcnally on 04-07-2025 Cannabinoids Screen Ql (U) Negative < 50 ng/mL [facility] Urine glucose detectionOrder ed By: Venkat Mustafa on 04-07-2025 Glucose Ql (U) Normal mg/dl Normal [facility] Urine leukocyte esterase det ection by dipstickOrdered By: Venkat Mustafa on 04-07-2025 Leukocyte esterase Test strip Ql (U) Negative Negative [facility] Urine pHOrdered By: Venkat Mustafa on 04-07-2025 pH (U) 7.0 [pH] 5.0 - 8.0 [facility] Urine phencyclidine (PCP) de tectionOrdered By: Milo Mcnally on 04-07-2025 Phencyclidine Ql (U) Negative < 25 ng/mL [facility] Urine sediment bacteria coun t by microscopy (number/high power field)Ordered By: Venkat Mustafa on 04-07-2025 Bacteria LM.HPF (Urine sed) [#/Area] RARE /hpf None Seen [facility] Urine specific gravity measu rementOrdered By: Venkat Mustafa on 04-07-2025 Specific gravity (U) [Rel density] 1.010 1.002-1.030 [facility] Urine urobilinogen measureme ntOrdered By: Venkat Mustafa on 04-07-2025 Urobilinogen Ql (U) Normal mg/dl Normal [facility] White blood cell (WBC) count Ordered By: Venkat Mustafa on 04-07-2025 WBC (Bld) [#/Vol] 8.5 10*3/uL 4.4-11.0 [facility] White blood cell countOrdere d By: Venkat Mustafa on 04-07-2025 White blood cell count 0 SEEN /hpf 0-5 [facility] Absolute lymphocyte countOrd ered By: Teodoro Daley on 04-04-2025 Lymphocytes Auto (Unsp spec) [#/Vol] 1.18 10*3/uL 0.83-4.51 [facility] Absolute neutrophil countOrd ered By: Teodoro Daley on 04-04-2025 Neutrophils (Bld) [#/Vol] 5.8 10*3/uL 2.0-7.7 [facility] Anion gap in Serum or Plasma Ordered By: Teodoro Daley on 04-04-2025 Anion gap [Moles/Vol] 9 mmol/L 5-15 [facility] Automated lymphocyte count a s percentage of total leukocytesOrdered By: Teodoro Daley on 04-04-2025 Lymphocytes/100 WBC Auto (Unsp spec) 14.8 % Low 19-41 [facility] BUN/creatinine ratioOrdered By: Teodoro Daley on 04-04-2025 Urea nitrogen/Creatinine [Mass ratio] 7.8 mg/mg Low 10-20 [facility] Basic Metabolic Profile (BMP )on 04-04-2025 BUN/CRE 7.8 RATIO Low 10- [facility] Comment on above: Performed By: #### L 500.2500, L100.0100 #### [facility] Laboratory [address] [place], [address] Calcium [Mass/Vol] 8.9 mg/dL Normal 7.6-11.0 [facility] Comment on above: Performed By: #### L 500.2500, L100.0100 #### [facility] [address] [place], [address] Chloride [Moles/Vol] 109 mmol/L High 98-108 [facility] Comment on above: Performed By: #### L 500.2500, L100.0100 #### [facility] [address] [place], [address] CO2 [Moles/Vol] 24.5 mmol/L Normal 21.0-32.0 [facility] Comment on above: Performed By: #### L 500.2500, L100.0100 #### [facility] [address] [place], [address] Creatinine [Mass/Vol] 0.91 mg/dL Normal 0.70-1.20 [facility] Comment on above: Performed By: #### L 500.2500, L100.0100 #### [facility] [address] [place], [address] ECRCL 56.35 ml/min Normal 50-250 [facility] Comment on above: Performed By: #### L 500.2500, L100.0100 #### [facility] [address] [place], [address] GAP 9 Normal 5-15 [facility] Comment on above: Performed By: #### L 500.2500, L100.0100 #### [facility] [address] [place], [address] GFR/1.73 sq M.predicted among non-blacks MDRD (S/P/Bld) [Vol rate/Area] 66 mL/min/{1.73_m2} Normal >60 [facility] Comment on above: Result Comment: mL/m in/1.73m2 CKD-EPI Creatinine Equation (2020) Performed By: #### L 500.2500, L100.0100 #### [facility] [address] [place], [address] Glucose [Mass/Vol] 99 mg/dL Normal 70-99 [facility] Comment on above: Performed By: #### L 500.2500, L100.0100 #### [facility] [address] [place], [address] Potassium [Moles/Vol] 3.8 mmol/L Normal 3.3-5.1 [facility] Comment on above: Performed By: #### L 500.2500, L100.0100 #### [facility] [address] [place], [address] Sodium [Moles/Vol] 143 mmol/L Normal 133-145 [facility] Comment on above: Performed By: #### L 500.2500, L100.0100 #### [facility] [address] [place], [address] Urea nitrogen [Mass/Vol] 7 mg/dL Normal 4-19 [facility] Comment on above: Performed By: #### L 500.2500, L100.0100 #### [facility] [address] [place], [address] Basophil percentageOrdered B y: Teodoro Daley on 04-04-2025 Basophils/100 WBC (Bld) 0.6 % 0-1 [facility] CBC W/Diff, Automatedon 10-2 -2024 Absolute Lymph 1.18 X10 3/uL Normal 0.83-4.51 [facility] Comment on above: Performed By: #### L 500.2500, L100.0100 #### [facility] [address] [place], [address] Absolute Neut 5.8 X10 3/uL Normal 2.0-7.7 [facility] Comment on above: Performed By: #### L 500.2500, L100.0100 #### [facility] [address] [place], [address] Basophils/100 WBC (Bld) 0.6 % Normal 0-1 [facility] Comment on above: Performed By: #### L 500.2500, L100.0100 #### [facility] [address] [place], [address] Eosinophils/100 WBC (Bld) 6.3 % High 0-5 [facility] Comment on above: Performed By: #### L 500.2500, L100.0100 #### [facility] [address] [place], [address] Erythrocyte distribution width (RBC) [Ratio] 13.1 % Normal 11.6-14.6 [facility] Comment on above: Performed By: #### L 500.2500, L100.0100 #### [facility] [address] [place], [address] Hematocrit (Bld) [Volume fraction] 39.9 % Normal 37-47 [facility] Comment on above: Performed By: #### L 500.2500, L100.0100 #### [facility] [address] [place], [address] Hemoglobin (Bld) [Mass/Vol] 13.6 g/dL Normal 12.0-15.0 [facility] Comment on above: Performed By: #### L 500.2500, L100.0100 #### [facility] [address] [place], [address] IG% 0.500 Normal 0.0-0.9 [facility] Comment on above: Result Comment: IG% - Immature Granulocytes (promyelocytes, myelocytes and metamyelocytes) > 1% indicates that a LEFT SHIFT is Present. Performed By: #### L 500.2500, L100.0100 #### [facility] [address] [place], [address] Lymphocytes/100 WBC (Bld) 14.8 % Low 19-41 [facility] Comment on above: Performed By: #### L 500.2500, L100.0100 #### [facility] [address] [place], [address] MCH (RBC) [Entitic mass] 31.6 pg Normal 27.0-32.0 [facility] Comment on above: Performed By: #### L 500.2500, L100.0100 #### [facility] [address] [place], [address] MCHC (RBC) [Mass/Vol] 34.1 g/dL Normal 32-36 [facility] Comment on above: Performed By: #### L 500.2500, L100.0100 #### [facility] [address] [place], [address] MCV (RBC) [Entitic vol] 92.8 fL Normal 81-99 [facility] Comment on above: Performed By: #### L 500.2500, L100.0100 #### [facility] [address] [place], [address] Monocytes/100 WBC (Bld) 5.3 % Normal 0-10 [facility] Comment on above: Performed By: #### L 500.2500, L100.0100 #### [facility] [address] [place], [address] Neutrophils/100 WBC (Bld) 72.5 % High 47-70 [facility] Comment on above: Performed By: #### L 500.2500, L100.0100 #### [facility] [address] [place], [address] Nucleated RBC (Bld) [#/Vol] 0 10*3/uL Normal 0-5 [facility] Comment on above: Performed By: #### L 500.2500, L100.0100 #### [facility] [address] [place], [address] Platelet mean volume (Bld) [Entitic vol] 11.9 fL Normal 6.2-12.0 [facility] Comment on above: Performed By: #### L 500.2500, L100.0100 #### [facility] [address] [place], [address] Platelets (Bld) [#/Vol] 230 10*3/uL Normal 150-450 [facility] Comment on above: Performed By: #### L 500.2500, L100.0100 #### [facility] [address] [place], [address] RBC (Bld) [#/Vol] 4.30 10*6/uL Normal 4.2-5.4 [facility] Comment on above: Performed By: #### L 500.2500, L100.0100 #### [facility] [address] [place], [address] RDW SD 44.3 fl High 35.1-43.9 [facility] Comment on above: Performed By: #### L 500.2500, L100.0100 #### [facility] [address] [place], [address] WBC (Bld) [#/Vol] 8.0 10*3/uL Normal 4.4-11.0 [facility] Comment on above: Performed By: #### L 500.2500, L100.0100 #### [facility] [address] [place], [address] Carbon dioxide, total [Moles /volume] in Central venous bloodOrdered By: Teodoro Daley on 04-04-2025 CO2 [Moles/Vol] 24.5 mmol/L 21.0-32.0 [facility] Chloride assayOrdered By: Jill Daley on 04-04-2025 Chloride [Moles/Vol] 109 mmol/L High 98-108 [facility] Emergency Department Summary on 04-04-2025 Emergency Department Summary [facility] Medical Records Department [address] [place] [address] Emergency Department Summary 04/04/25 MR#: [id number] Acct: [id number] Name: ILENE SHAW Rep #: [id number] : 1950 75 From: Teodoro Daley MD [...] housing: house Smoking Status: Never smoker [facility] ED Cardiovascular Cardiovascular: Denies chest pain, orthopnea, [...] since t (more content not included)... Normal [facility] Eosinophil percentageOrdered By: Teodoro Daley on 04-04-2025 Eosinophils/100 WBC (Bld) 6.3 % High 0-5 [facility] Erythrocyte distribution wid th ratioOrdered By: Teodoro Daley on 04-04-2025 Erythrocyte distribution width (RBC) [Ratio] 13.1 % 11.6-14.6 [facility] Erythrocyte distribution wid th standard deviationOrdered By: Teodoroshelbie Daley on 04-04-2025 Erythrocyte distribution width (RBC) [Ratio] 44.3 fl High 35.1-43.9 [facility] Glomerular filtration rate ( GFR) estimation/1.73 sq m using serum, plasma, or whole bOrdered By: Teodoro Daley on 04-04-2025 GFR/1.73 sq M.predicted among non-blacks MDRD (S/P/Bld) [Vol rate/Area] 66 mL/min/{1.73_m2} >60 [facility] Comment on above: mL/min/1.73m2 CKD-EP I Creatinine Equation (2020) Hematocrit Auto (Bld) [Volum e fraction]Ordered By: Teodoro Daley on 04-04-2025 Hematocrit (Bld) [Volume fraction] 39.9 % 37-47 [facility] Hemoglobin measurementOrdere d By: Teodoro Daley on 04-04-2025 Hemoglobin (Bld) [Mass/Vol] 13.6 g/dL 12.0-15.0 [facility] Immature granulocytes/100 WB C Auto (Bld)Ordered By: Teodoro Daley on 04-04-2025 Immature granulocytes/100 WBC (Bld) 0.500 % 0.0-0.9 [facility] Comment on above: IG% - Immature Granu locytes (promyelocytes, myelocytes and metamyelocytes) > 1% indicates that a LEFT SHIFT is Present. MCV (mean corpuscular volume ) determinationOrdered By: Teodoro Daley on 04-04-2025 MCV (RBC) [Entitic vol] 92.8 fL 81-99 [facility] Mean corpuscular hemoglobin (MCH) determinationOrdered By: Teodoroshelbie Daley on 04-04-2025 MCH (RBC) [Entitic mass] 31.6 pg 27.0-32.0 [facility] Mean corpuscular hemoglobin concentration (MCHC) determinationOrdered By: Teodoroshelbie Daley on 04-04-2025 MCHC (RBC) [Mass/Vol] 34.1 g/dL 32-36 [facility] Mean platelet volume determi nationOrdered By: Teodoro Daley on 04-04-2025 Platelet mean volume (Bld) [Entitic vol] 11.9 fL 6.2-12.0 [facility] Monocyte percentageOrdered B y: Teodoro Daley on 04-04-2025 Monocytes/100 WBC (Bld) 5.3 % 0-10 [facility] Neutrophil percentageOrdered By: Teodoroshelbie Daley on 04-04-2025 Neutrophils/100 WBC (Bld) 72.5 % High 47-70 [facility] Nucleated red blood cell per centageOrdered By: Teodoro Daley on 04-04-2025 Nucleated RBC/100 WBC (Bld) [Ratio] 0 % 0-5 [facility] Platelet countOrdered By: shelbie Daley on 04-04-2025 Platelets (Bld) [#/Vol] 230 10*3/uL 150-450 [facility] Potassium measurement (mass/ volume)Ordered By: Teodoroshelbie Daley on 04-04-2025 Potassium (Unsp spec) [Mass/Vol] 3.8 mmol/L 3.3-5.1 [facility] RBC Auto (Bld) [#/Vol]Ordere d By: Teodoro Daley on 04-04-2025 RBC (Bld) [#/Vol] 4.30 10*6/uL 4.2-5.4 [facility] Serum creatinine measurement (mass/volume)Ordered By: Teodoro Daley on 04-04-2025 Creatinine [Mass/Vol] 0.91 mg/dL 0.70-1.20 [facility] Serum glucose measurement (m ass/volume)Ordered By: Teodoro Daley on 04-04-2025 Glucose [Mass/Vol] 99 mg/dL 70-99 [facility] Serum or plasma calcium iwona urement (mass/volume)Ordered By: Teodoro Daley on 04-04-2025 Calcium [Mass/Vol] 8.9 mg/dL 7.6-11.0 [facility] Serum or plasma urea nitroge n measurement (mass/volume)Ordered By: Teodoro Daley on 04-04-2025 Urea nitrogen [Mass/Vol] 7 mg/dL 4-19 [facility] Sodium levelOrdered By: Teodoro Daley on 04-04-2025 Sodium [Moles/Vol] 143 mmol/L 133-145 [facility] Venous Duplex US, Unilateral on 04-04-2025 Venous Duplex US, Unilateral [facility] [address] [place] [address] Venous Duplex US, Unilateral 04/04/25 1109 MR#: [id number] Acct: [id number] Name: ILENE SHAW Rep #: [id number] : 1950 75 From: Bran Alston MD [...] Referring Physician: Jennifer Santos Performed By: Jenn Naranjo, Cat 04/04/25 1555 Date Bran Alston MD CC: Dr. Jennifer Santos MD; Dr. Teodoro Daley MD Date Dictated: 04/04/251108 Date Transcribed: 04/04/251554 Manager Material: Signed Normal [facility] Venous duplex ultrasound rep ortOrdered By: Bran Alston on 04-04-2025 US Vein [facility] [address] [place] [address] Venous Duplex US, Unilateral 04/04/251108 MR#: [id number] Acct: [id number] Name: ILENE SHAW Rep #:[id number] : 1950 75 From: Bran Rhodes [...] By: Jenn Naranjo RVT 04/04/25 1555 Date _ Bran Alston MD CC: Dr. Jennifer Santos MD; Dr. Teodoro Daley MD ~ Date Dictated: 04/04/25 1109 Date Transcribed: 04/04/25 155 Manager Material: Signed [facility] Work Phone: White blood cell (WBC) count Ordered By: Teodoro Daley on 04-04-2025 WBC (Bld) [#/Vol] 8.0 10*3/uL 4.4-11.0 [facility] Urgent Care Visit Reporton 0 01-03-2025 Urgent Care Visit Report [facility] [address], [address] [place] [address] OFFICE VISIT Date of Service: 01/03/25 MR#: [id number] Acct: [id number] Name: ILENE SHAW Rep #: [id number] : 1950 Provider: RA Currie Age/Sex: 74/F Location: [facility] Status: Signed Intake Vital Signs 08/28/23 16:43 01/03/25 15:04 Height 5 ft 2 in 5 ft 2 in Weight: 195 lb BMI 35.6 BP 130/84 H Blood Pressure Location Lt brachial Position Sitting Respiration 16 Pulse 94 Pulse Source Monitor Temp 98.2 F Temp Source Oral Pulse Oximetry (%) 97 Oxygen Delivery Method room air Intake Visit Reasons: Cough Chief Complaint: Cough Rebrander Required: No Accompanied by: Self Is patient [...] Has tried otc medications for cold symptoms. [facility] Medical History (Updated 01/03/25 @ 15:18 by [...] No close contacts with similar complaints. No vmos-yil-cfwcadi products taken to assist. Additionally, patient notes having a history of chronic vaginal pruritus and concern for vaginal candidiasis; she notes cukb-ynh-hcozyzt Monistat cream helping some but may not resolve her symptoms. No other associated symptoms and no alleviating/aggravating factors. ROS Const Constitutional: No other (As above) Exam Const General: cooperative, healthy appearing and no acute distress Orientation: alert and awake HENAK Head: normal to inspection Ears: hearing grossly [...] to 5 (more content not included)... Normal [facility] 12-20-2024 CNCO Letter Text Normal [facility] BARBARA SCREENING W TOMOon 09-22 BARBARA SCREENING W EL * * *Final Report* * * DATE OF EXAM: Sep 22 2024 9:56AM WRW 0582 - BARBARA SCREENING W EL / PROCEDURE REASON: Encounter for screening mammogram for breast cancer * * * * Physician Interpretation * * * * RESULT: [address] [address] [place] [address] #[id number] - BARBARA SCREENING W EL HISTORY: 74 [...] Mita Finney M.D. Electronically signed on: 09/23/2024 Manager Material: SÁNCHEZ Riosriemily Date/Time: Sep 22 2024 9:45A Dictated by: MITA FINNEY MD This examination was interpreted and the report reviewed and electronically signed by: MITA FINNEY MD on Sep 23 2024 7:47PM EST [id number] [facility] C[facility] Tele[facility] (INTMWS) ILENE SHAW ([id number]) 1950 F Date Time Provider Department 09/14/24 [...] breast cancer [Z12.31] Order(s):BARBARA SCREENING W EL [[id number]] Order #: [id number] FUTURE Prescriptions as of 09/14/2024 - aspirin [...] Encounter Status:Closed by KELLE PETER on 09/14/24 [facility] Kelsie 05-11-2024 [facility] Telephone (UCWSTR) ILENE SHAW ([id number]) 1950 F Date Time Provider Department 05/11/24 [facility]ORREY DAW[facility] During your [...] Status:Closed by CLAUDETTE DIAL on 05/11/24 Normal [facility] BACTERIAL VAGINOSIS NAATon 1 07-10-2023 Lactobacillus crispatus+gasseri+shahana enii + Gardnerella vaginalis + Atopobium vaginae rRNA RADAH+probe Ql (Vag fld) Not detected Normal Not detected [facility] Comment on above: Order Comment: Speci men Type: SWABOrdering Facility: [facility] Address: [address] [place] [address] Performed By: #### Arlene CHADWICK, [id number] ####[facility] LABCLIA [id number] [address] [place] Bacteria Ur Culton 4 Bacteria identified [...] , Intermediate >32 , Resistant >64 Abnormal [facility] Comment on above: Performed By: #### 6 30-4 ####[facility] LABCLIA [id number] [place] [address] [place] C. trachomatis+N. gonorrhoea e DNA RADHA+probe Ql (Unsp spec)on 05-10-2024 C. trachomatis rRNA RADHA+probe Ql (Unsp spec) Not detected Normal Not detected [facility] Comment on above: Order Comment: Speci men Type: SWABOrdering Facility: [facility] Address: [address] [place] [address] Performed By: #### B VAMP, [id number] ####[facility] LABCLIA [id number] [place] [address] [place] N. gonorrhoeae rRNA RADHA+probe Ql (Unsp spec) Not detected Normal Not detected [facility] Comment on above: Order Comment: Speci men Type: SWABOrdering Facility: [facility] Address: [address] [place] [address] Performed By: #### B VAMP, 89984-7 ####[facility] LABCLIA [id number] [place] [address] [place] ALBA/TRICHOMONAS NAATon 1 07-10-2023 C. glabrata RNA RADHA+probe Ql (Vag fld) Not detected Normal Not detected [facility] Comment on above: Order Comment: Speci men Type: SWABOrdering Facility: [facility] Address: [address] [place] [address] Performed By: #### C VTV ####[facility] LABCLIA [id number] [place] [address] [place] Alba sp DNA RADHA+probe Ql (Vag fld) Detected Abnormal Not detected [facility] Comment on above: Order Comment: Speci men Type: SWABOrdering Facility: [facility] Address: [address] [place] [address] Result Comment: The Alba species group target includes C. albicans, C. tropicalis, C. parapsilosis, and C. dubliniensis. Performed By: #### C VTV ####[facility] LABIA [id number] [address] OF [facility] T. vaginalis DNA RADHA+probe Ql (Unsp spec) Not detected Normal Not detected [facility] Comment on above: Order Comment: Speci men Type: SWABOrdering Facility: [facility] Address: [address] [place] [address] Performed By: #### C VTV ####[facility] LABCLIA [id number] [address] OF [facility] CNOVon 05-10-2024 CNOV Office Visit (WSTR ) GOLDENILENE Sangeeta ([id number]) 1950 F Date Time Provider Department 05/10/24 12:30 PM TORREY DAWSON WSTR During your visit today, we recorded the following information about you: Temperature Pulse Respiration Blood pressure 98.1 degrees 75/minute 20/minute 136/78 Weight 87 kg Torrey Dawson PA-C 05/10/2024 2:21 PM Signed This note was created using DisplayLinkter. Subjective Ileneirene Shaw is a 74 year old female. [...] Exam Vitals reviewed. Exam conducted with a cylinder dyer present (Claudette ARTHUR). Constitutional: Appearance: Normal appearance. [...] Assessed Reaso (more content not included)... Normal [facility] UA DIP, URINE (POC)on 2023 BILIRUBIN UA (POCT) Negative Negative [facility] CLARITY UA (POCT) Cloudy [facility] COLOR UA (POCT) Dark yellow [facility] GLUCOSE UA (POCT) Negative Negative mg/dL [facility] Hemoglobin Ql (U) Large Abnormal Negative [facility] Interpretation and review of laboratory results Abnormal [facility] KETONE UA (POCT) Negative Negative mg/dL [facility] LEUKOCYTES UA (POCT) Trace Abnormal Negative [facility] NITRITE UA (POCT) Positive Abnormal Negative [facility] PH UA (POCT) 5.5 4.5 - 8.0 [facility] Protein Ql (U) >=300 Abnormal Negative mg/dL [facility] SPECIFIC GRAVITY UA (POCT) 1.025 1.005 - 1.030 [facility] UROBILINOGEN UA (POCT) 0.2 Normal E.U./d L [facility] Location:[address], [place], [place], [address] [place] [address] POINT OF CARE [facility] XR Chest PA and Lateralon IMPRESSION: No acute radiographic abnormality. Manager Material: AAKASH Transcribe Date/Time: Nov 18 2023 11:20A Dictated by : ELLI BAUM MD This examination was interpreted and the report reviewed and electronically signed by: ELLI BAUM MD on Nov 18 2023 11:21AM [facility] DIVISION OF RADIOLOGY * * *Final Report* [...] wall surgical clips. DIVISION OF RADIOLOGY Provider, [facility] - 11/18/2023 * * *Final Report* * [...] clips. IMPRESSION IMPRESSION: No acute radiographic abnormality. Manager Material: PSCB Transcribe Date/Time: Nov 18 2023 11:20A Dictated by : ELLI BAUM MD This examination was interpreted and the report reviewed and electronically signed by: ELLI BAUM MD on Nov 18 2023 11:21AM EST [facility] Radiology Study observation (narrative) [facility] XR Chest PA and LateralOrder ed By: [facility]cf Provider on 11-18-2023 [facility] BACTERIAL VAGINOSIS NAATon 0 10-22-2023 Interpretation and review of laboratory results Normal [facility] Lactobacillus crispatus+gasseri+shahana enii + Gardnerella vaginalis + Atopobium vaginae rRNA RADHA+probe Ql (Vag fld) Negative Negative for bacterial vaginosis [facility] ALBA/TRICHOMONAS NAATon 0 10-22-2023 C. glabrata RNA RADHA+probe Ql (Vag fld) Negative Negative for Alba glabrata [facility] Alba sp DNA RADHA+probe Ql (Vag fld) Positive Abnormal Negative for Alba species [facility] Interpretation and review of laboratory results Abnormal [facility] T. vaginalis DNA RADHA+probe Ql (Unsp spec) Negative Negative for Trichomonas vaginalis by amplification [facility] UA DIP, URINE (POC)on 2023 BILIRUBIN UA (POCT) Negative Negative [facility] CLARITY UA (POCT) Clear [facility] COLOR UA (POCT) Yellow [facility] GLUCOSE UA (POCT) Negative Negative mg/dL [facility] Hemoglobin Ql (U) Negative Negative [facility] KETONE UA (POCT) Negative Negative mg/dL [facility] LEUKOCYTES UA (POCT) Negative Negative [facility] NITRITE UA (POCT) Negative Negative [facility] PH UA (POCT) 5.5 4.5 - 8.0 [facility] Protein Ql (U) Negative Negative mg/dL [facility] SPECIFIC GRAVITY UA (POCT) 1.025 1.005 - 1.030 [facility] UROBILINOGEN UA (POCT) 0.2 Normal E.U./d L [facility] Location:[facility], [address] [place] [address], [place], [place], [id number] [place] [address] POINT OF CARE [facility] DBT Breast - left diagnostic for implanton 09-30-2023 [facility] US Breast - left limitedon 0 09-30-2023 [facility] CBC panel Auto (Bld)on 05-22 Erythrocyte distribution width (RBC) [Ratio] 12.6 % 11.5 - 15.0 % [facility] Hematocrit (Bld) [Volume fraction] 42.8 % 36.0 - 46.0 % [facility] Hemoglobin (Bld) [Mass/Vol] 14.0 g/dL 11.5 - 15.5 g/dL [facility] MCH (RBC) [Entitic mass] 31.3 pg 26.0 - 34.0 pg [facility] MCHC (RBC) [Mass/Vol] 32.7 g/dL 30.5 - 36.0 g/dL [facility] MCV (RBC) [Entitic vol] 95.7 fL 80.0 - 100.0 fL [facility] Nucleated RBC (Bld) [#/Vol] <0.01 k/uL [facility] Platelet mean volume (Bld) [Entitic vol] 11.6 fL 9.0 - 12.7 fL [facility] Platelets (Bld) [#/Vol] 256 10*3/uL 150 - 400 k/uL [facility] RBC (Bld) [#/Vol] 4.47 10*6/uL 3.90 - 5.2 0 m/uL [facility] WBC (Bld) [#/Vol] 8.44 10*3/uL 3.70 - 11. 00 k/uL [facility] No Panel Informationon 09-03 [facility] Absolute lymphocyte counton 03-02-2022 Lymphocytes Auto (Unsp spec) [#/Vol] 1.96 10*3/uL 0.83-4.51 [facility] Work Phone: Basophil percentageon 2021 Basophils/100 WBC (Bld) 0.6 % 0-1 [facility] Work Phone: Bilirubin [Mass/Vol] 0.40 mg/dL 0.20-1.00 [facility] Work Phone: Comment on above: For patients on eltr ombopag therapy, use of Dimension [place] TBIL is not recommended. Chloride [Moles/Vol] 108 mmol/L 98-107 [facility] Work Phone: Eosinophils/100 WBC (Bld) 5.5 % 0-5 [facility] Work Phone: Glucose [Mass/Vol] 93 mg/dL 74-106 [facility] Work Phone: Neutrophils (Bld) [#/Vol] 5.0 10*3/uL 2.0-7.7 [facility] Work Phone: Neutrophils/100 WBC (Bld) 62.7 % 47-70 [facility] Work Phone: Potassium [Moles/Vol] 3.6 mmol/L 3.5-5.1 [facility] Work Phone: Protein [Mass/Vol] 7.6 g/dL 6.4-8.2 [facility] Work Phone: Sodium [Moles/Vol] 143 mmol/L 136-145 [facility] Work Phone: WBC (Bld) [#/Vol] 8.0 10*3/uL 4.4-11.0 [facility] Work Phone: Blood erythrocytes count (nu mber/volume)on 03-02-2022 RBC (Bld) [#/Vol] 4.56 10*6/uL 4.2-5.4 [facility] Work Phone: Blood hemoglobin measurement (mass/volume)on 03-02-2022 Hemoglobin (Bld) [Mass/Vol] 14.3 g/dL 12.0-15.0 [facility] Work Phone: Blood lymphocytes/100 leukoc yteson 03-02-2022 Lymphocytes/100 WBC (Bld) 24.5 % 19-41 [facility] Work Phone: Blood monocytes/100 leukocyt eson 03-02-2022 Monocytes/100 WBC (Bld) 6.6 % 0-10 [facility] Work Phone: Blood platelet mean volumeon 03-02-2022 Platelet mean volume (Bld) [Entitic vol] 11.1 fL 6.2-12.0 [facility] Work Phone: Determination of erythrocyte mean corpuscular volume (MCV)on 03-02-2022 MCV (RBC) [Entitic vol] 95.6 fL 81-99 [facility] Work Phone: Hematocrit Auto (Bld) [Volum e fraction]on 03-02-2022 Hematocrit (Bld) [Volume fraction] 43.6 % 37-47 [facility] Work Phone: INR in Blood by Coagulation assayon 03-02-2022 INR Coag (Bld) [Relative time] 1.1 {INR} [facility] Work Phone: Laboratory - Chemistry and C hemistry - challengeon 03-02-2022 ALP [Catalytic activity/Vol] 86 U/L 45-117 [facility] Work Phone: ALT [Catalytic activity/Vol] 18 U/L 13-56 [facility] Work Phone: CO2 [Moles/Vol] 27.0 mmol/L 21.0-32.0 [facility] Work Phone: Globulin (S) [Mass/Vol] 3.9 g/dL 2.2-4.2 [facility] Work Phone: Urea nitrogen/Creatinine [Mass ratio] 9.8 mg/mg 10-20 [facility] Work Phone: Laboratory - Coagulationon 0 03-02-2022 aPTT Coag (Bld) [Time] 31.7 s 24.1-36.2 [facility] Work Phone: PT Coag (PPP) [Time] 13.5 s 11.7-14.9 [facility] Work Phone: Laboratory - Hematology and Cell countson 03-02-2022 Erythrocyte distribution width (RBC) [Entitic vol] 47.2 fL 35.1-43.9 [facility] Work Phone: Erythrocyte distribution width (RBC) [Ratio] 13.2 % 11.6-14.6 [facility] Work Phone: Immature granulocytes/100 WBC (Bld) 0.100 % 0.0-0.9 [facility] Work Phone: Comment on above: IG% - Immature Granu locytes (promyelocytes, myelocytes and metamyelocytes) > 1% indicates that a LEFT SHIFT is Present. MCH (RBC) [Entitic mass] 31.4 pg 27.0-32.0 [facility] Work Phone: Nucleated RBC/100 WBC (Bld) [Ratio] 0 % 0-5 [facility] Work Phone: MCHC Auto (RBC) [Mass/Vol]on 03-02-2022 MCHC (RBC) [Mass/Vol] 32.8 g/dL 32-36 [facility] Work Phone: No Panel Informationon 03-02 Estimated Creatinine Clearance Calc 43.72 ml/min [facility] Work Phone: Estimated GFR (MDRD) Amer 77 mL/min >60 [facility] Work Phone: Comment on above: GFR Calc Estimated GFR (MDRD) Non-Af Amer 64 mL/min >60 [facility] Work Phone: Comment on above: Non- GFR Calc Platelets bldon 03-02-2022 Platelets (Bld) [#/Vol] 267 10*3/uL 150-450 [facility] Work Phone: Serum or plasma albumin iwona urement (mass/volume)on 03-02-2022 Albumin [Mass/Vol] 3.7 g/dL 3.2-5.0 [facility] Work Phone: Serum or plasma albumin/glob ulin mass ratioon 03-02-2022 Albumin/Globulin [Mass ratio] 0.9 {ratio} 0.9-2.4 [facility] Work Phone: Serum or plasma calcium iwona urement (mass/volume)on 03-02-2022 Calcium [Mass/Vol] 9.2 mg/dL 8.5-10.1 [facility] Work Phone: Serum or plasma creatinine m easurement (mass/volume)on 03-02-2022 Creatinine [Mass/Vol] 0.92 mg/dL 0.55-1.02 [facility] [facility] Work Phone: Comment on above: The validity of the calculated GFR & GFRAA in patients over 70 years has not been determined. Clinical correlation is essential. Serum or plasma urea nitroge n measurement (mass/volume)on 03-02-2022 Urea nitrogen [Mass/Vol] 9 mg/dL 7-18 [facility] Work Phone: Thin prep Papanicolaou smear with manual screeningon 03-02-2022 Thin prep Papanicolaou smear with manual screening 16 U/L 15-37 [facility] Work Phone: Thin prep Papanicolaou smear with manual screening 8 5-15 [facility] Work Phone: US LEG VEIN DVT UNL VAS LABo n 02-07-2022 [facility] UA DIP, URINE (POC)on 2021 BILIRUBIN UA (POCT) Small Abnormal Negative [facility] CLARITY UA (POCT) [facility] COLOR [facility]A ([facility]CT) Dark yellow [facility] GLUCOSE UA (POCT) Negative Negative mg/dL [facility] HEMOGLOBIN/BLOOD UA (POCT) Trace-intact Abnormal Negative [facility] KETONE UA (POCT) Negative Negative mg/dL [facility] LEUKOCYTES UA (POCT) Trace Abnormal Negative [facility] NITRITE UA (POCT) Negative Negative [facility] PH UA (POCT) 5.5 4.5 - 8.0 [facility] Protein Ql (U) Trace Abnormal Negative mg/dL [facility] SPECIFIC GRAVITY UA (POCT) >=1.030 1.005 - 1.030 [facility] UROBILINOGEN UA (POCT) 0.2 E.U./dL Normal E.U./ dL [facility] BARBARA SCREENINGon 09-02-2021 [facility] CNOVon 11-02-2018 CNOV Office Visit (AKURFL ) GOLDENILENE Rutherford ([id number]) 1950 F Date Time Provider Department 11/02/18 10:30 AM DEEP SHANE During your visit today, we recorded the following information about you: Deep Shane DO, MBA 11/02/2018 11:31 AM Signed ?? [facility] [place] [facility] UROLOGICAL AND KIDNEY [place] LOCATION: [address] [place] [address] CYSTOSCOPY PROCEDURE NOTE: Ilene Sangeeta Shaw is a 68 year old female who presents with bladder nodule for a cystoscopy. Pt ID verified with patient: Yes Procedure verified with patient: Yes Procedure confirmed with physician and community support professional: Yes Sign In: History and Physical Exam [...] Shane DO, MBA Referring Provider: DEEP SHANE [[id number]] Allergies As of Date: 11/02/2018 Noted Allergy [...] Encounter Status:Closed by DEEP SHANE on 11/02/18 [facility] PROCEDUREon 11-02-2018 Protein mass conc HNO ID: [id number] Author: Deep Shane Service: ? Author Type: Physician Type: Procedures Filed: 11/02/2018 11:31 AM Note Text: ?? [facility] [place] [facility] LOCATION: [address] [place] [address] CYSTOSCOPY PROCEDURE NOTE: Ilene Shaw is a 68 year old female who presents with bladder nodule for a cystoscopy. Pt ID verified with patient: Yes Procedure verified with patient: Yes Procedure confirmed with physician and community support professional: Yes Sign In: History and Physical Exam [...] consider mid-urethral sling Deep Shane DO, MBA [facility] Vital Signs Date Time Vital Sign Value Performing Clinician Faci randa 04-07-2025 15:30-0400 Body temperature 98.2 [degF] Dr. Jennifer Santos MD Work Phone: [facility] 04-07-2025 15:30-0400 Diastolic blood pressure 64 mm[Hg] Dr. Jennifer Santos MD Work Phone: [facility] 04-07-2025 15:30-0400 Heart rate 71 /min Dr. Jennifer Santos MD Work Phone: [facility] 04-07-2025 15:30-0400 Respiratory rate 16 /min Dr. Jennifer Santos MD Work Phone: 0(678)519-832804 [place] [address] 04-07-2025 15:30-0400 SaO2% (BldA) [Mass fraction] 97 % Dr. Jennifer Santos MD Work Phone: 7(286)856-365604 [place] [address] 04-07-2025 15:30-0400 Systolic blood pressure 117 mm[Hg] Dr. Jennifer Santos MD Work Phone: 9(391)152-884004 [place] [address] 04-07-2025 12:09-0400 Body height 157.[address] Jennifer Santos MD Work Phone: 6(618)705-646004 [place] [address] 04-07-2025 12:09-0400 Body weight 87.[address] Jennifer Santos MD Work Phone: 0(844)597-441704 [place] [address] 04-07-2025 08:10-0400 Body mass index (BMI) [Ratio] 35.2 kg/m2 Dr. Jennifer Santos MD Work Phone: 0(495)701-814204 [place] [address] 04-04-2025 12:48-0400 Body temperature 97.8 [degF] Dr. Jennifer Santos MD Work Phone: 3(313)048-814004 [place] [address] 04-04-2025 12:48-0400 Diastolic blood pressure 78 mm[Hg] Dr. Jennifer Santos MD Work Phone: 7(507)023-747604 [place] [address] 04-04-2025 12:48-0400 Heart rate 64 /min Dr. Jennifer Santos MD Work Phone: 0(905)821-066704 [place] [address] 04-04-2025 12:48-0400 Respiratory rate 18 /min Dr. Jennifer Santos MD Work Phone: 5(133)463-324204 [place] [address] 04-04-2025 12:48-0400 SaO2% (BldA) [Mass fraction] 99 % Dr. Jennifer Santos MD Work Phone: 3(835)096-633004 [place] [address] 04-04-2025 12:48-0400 Systolic blood pressure 134 mm[Hg] Dr. Jennifer Santos MD Work Phone: 3(700)682-490904 [place] [address] 04-04-2025 11:06-0400 Body mass index (BMI) [Ratio] 37 kg/m2 Dr. Jennifer Santos MD Work Phone: 7(939)118-852104 [place] [address] 04-04-2025 11:06-0400 Body weight 91.[address] Jennifer Santos MD Work Phone: 3(698)613-852204 [place] [address] 01-03-2025 15:04-0400 Body height 157.[address] Jennifer Santos MD Work Phone: 1(446)175-129904 [place] [address] 01-03-2025 15:04-0400 Body mass index (BMI) [Ratio] 35.6 kg/m2 Dr. Jennifer Santos MD Work Phone: 3(297)042-160104 [place] [address] 01-03-2025 15:04-0400 Body temperature 98.2 [degF] Dr. Jennifer Santos MD Work Phone: 5(139)498-285504 [place] [address] 01-03-2025 15:04-0400 Body weight 88.[address] Jennifer Santos MD Work Phone: 1(919)147-938204 [place] [address] 01-03-2025 15:04-0400 Diastolic blood pressure 84 mm[Hg] Dr. Jennifer Santos MD Work Phone: 8(892)193-848604 [place] [address] 01-03-2025 15:04-0400 Heart rate 94 /min Dr. Jennifer Santos MD Work Phone: 6(212)514-713304 [place] [address] 01-03-2025 15:04-0400 Respiratory rate 16 /min Dr. Jennifer Santos MD Work Phone: 8(966)939-524204 [place] [address] 01-03-2025 15:04-0400 SaO2% (BldA) [Mass fraction] 97 % Dr. Jennifer Santos MD Work Phone: 4(195)780-220204 [place] [address] 01-03-2025 15:04-0400 Systolic blood pressure 130 mm[Hg] Dr. Jennifer Santos MD Work Phone: 4(215)143-180304 [place] [address] 05-10-2024 12:44-0500 Body mass index (BMI) [Ratio] 35.08 kg/m2 Torrey Athy PA-C Work Phone: [facility] 05-10-2024 12:44-0500 Body temperature 98.1 [degF] Torrey Athy PA-C Work Phone: [facility] 05-10-2024 12:44-0500 Body weight 87 kg Torrey Athy PA-C Work Phone: [facility] 05-10-2024 12:44-0500 Diastolic blood pressure 78 mm[Hg] Torrey Athy PA-C Work Phone: [facility] 05-10-2024 12:44-0500 Heart rate 75 /min Torrey Athy PA-C Work Phone: [facility] 05-10-2024 12:44-0500 Respiratory rate 20 /min Torrey Athy PA-C Work Phone: [facility] 05-10-2024 12:44-0500 SaO2% (BldA) [Mass fraction] 100 % Torrey Athy PA-C Work Phone: [facility] 05-10-2024 12:44-0500 Systolic blood pressure 136 mm[Hg] Torrey Athy PA-C Work Phone: [facility] 11-17-2023 18:23-0400 Body mass index (BMI) [Ratio] 35.12 kg/m2 Elaine Praisler-Wood [employer] ATTENDANT.EKG TECH Work Phone: [facility] 11-17-2023 18:23-0400 Body temperature 99.1 [degF] Elaine Praisler-Wood [employer]ATION ATTENDANT.EKG TECH Work Phone: [facility] 11-17-2023 18:23-0400 Body weight 87.1 kg Elaine Praisler-Wood [employer]ATION ATTENDANT.EKG TECH Work Phone: [facility] 11-17-2023 18:23-0400 Diastolic blood pressure 80 mm[Hg] Elaine Praisler-Wood [employer]ICE [employer]ATION ATTENDANT.EKG TECH Work Phone: [facility] 11-17-2023 18:23-0400 Heart rate 98 /min Elaine Praisler-Wood [employer]ATION ATTENDANT.EKG TECH Work Phone: [facility] 11-17-2023 18:23-0400 Respiratory rate 18 /min Elaine Praisler-Wood [employer]ATION ATTENDANT.EKG TECH Work Phone: [facility] 11-17-2023 18:23-0400 SaO2% (BldA) [Mass fraction] 94 % Elaine Praisler-Wood [employer] ATTENDANT.EKG TECH Work Phone: [facility] 11-17-2023 18:23-0400 Systolic blood pressure 128 mm[Hg] Elaine Praisler-Wood [employer] ATTENDANT.EKG TECH Work Phone: [facility] 10-21-2023 12:29-0400 Body mass index (BMI) [Ratio] 35.52 kg/m2 Torrey Athy PA-C Work Phone: [facility] 10-21-2023 12:29-0400 Body temperature 98.91 [degF] Torrey Athy PA-C Work Phone: [facility] 10-21-2023 12:29-0400 Body weight 88.1 kg Torrey Athy PA-C Work Phone: [facility] 10-21-2023 12:29-0400 Diastolic blood pressure 82 mm[Hg] Torrey Athy PA-C Work Phone: [facility] 10-21-2023 12:29-0400 Heart rate 80 /min Torrey Athy PA-C Work Phone: [facility] 10-21-2023 12:29-0400 Respiratory rate 18 /min Torrey Athy PA-C Work Phone: [facility] 10-21-2023 12:29-0400 SaO2% (BldA) [Mass fraction] 97 % Torrey Athy PA-C Work Phone: [facility] 10-21-2023 12:29-0400 Systolic blood pressure 132 mm[Hg] Torrey Athy PA-C Work Phone: [facility] 08-28-2023 18:30-0400 Body temperature 96.98 [degF] LENA JIMENEZ MD [facility] 08-28-2023 18:30-0400 Body weight 89.9 kg LENA JIMENEZ MD [facility] 08-28-2023 18:30-0400 Diastolic Blood Pressure Non-Invasive 88 mm[Hg] LENA JIMENEZ MD [facility] 08-28-2023 18:30-0400 Heart rate 73 /min LENA JIMENEZ MD [facility] 08-28-2023 18:30-0400 Respiratory rate 18 /min LENA JIMENEZ MD [facility] 08-28-2023 18:30-0400 Systolic Blood Pressure Non-Invasive 159 mm[Hg] LENA JIMENEZ MD [facility] 08-28-2023 16:43-0400 Body height 157.48 cm [facility] 08-28-2023 16:43-0400 Body temperature 95.6 [degF] [facility] 08-28-2023 16:43-0400 Diastolic blood pressure 83 mm[Hg] [facility] 08-28-2023 16:43-0400 Heart rate 88 /min [facility] 08-28-2023 16:43-0400 Respiratory rate 14 /min [facility] 08-28-2023 16:43-0400 SaO2% (BldA) [Mass fraction] 98 % [facility] 08-28-2023 16:43-0400 Systolic blood pressure 151 mm[Hg] [facility] 05-27-2023 01:48-0500 Heart rate 89 /min [facility] 05-27-2023 01:48-0500 Respiratory rate 18 /min [facility] 05-27-2023 01:48-0500 SaO2% (BldA) [Mass fraction] 97 % [facility] 05-27-2023 01:28-0500 Diastolic blood pressure 79 mm[Hg] [facility] 05-27-2023 01:28-0500 Systolic blood pressure 153 mm[Hg] [facility] 05-26-2023 23:40-0500 Body height 157.48 cm [facility] 05-26-2023 23:40-0500 Body mass index (BMI) [Ratio] 35.1 kg/m2 [facility] 05-26-2023 23:40-0500 Body temperature 97.3 [degF] [facility] 05-26-2023 23:40-0500 Body weight 87.08 kg [facility] 05-21-2023 19:08-0500 Body temperature 96.91 [degF] Rolf Burger MD Work Phone: [facility] 05-21-2023 19:08-0500 Body weight 87.5 kg Rolf Burger MD Work Phone: [facility] 05-21-2023 19:08-0500 Diastolic blood pressure 86 mm[Hg] Rolf Burger MD Work Phone: [facility] 05-21-2023 19:08-0500 Heart rate 92 /min Rolf Burger MD Work Phone: [facility] 05-21-2023 19:08-0500 Respiratory rate 16 /min Rolf Burger MD Work Phone: [facility] 05-21-2023 19:08-0500 SaO2% (BldA) [Mass fraction] 99 % Rolf Burger MD Work Phone: [facility] 05-21-2023 19:08-0500 Systolic blood pressure 136 mm[Hg] Rolf Burger MD Work Phone: [facility] 05-21-2023 13:40-0500 Body temperature 98.71 [degF] Yaakov Richter MD Work Phone: [facility] 05-21-2023 13:40-0500 Body weight 87.36 kg Yaakov Richter MD Work Phone: [facility] 05-21-2023 13:40-0500 Diastolic blood pressure 82 mm[Hg] Yaakov Richter MD Work Phone: [facility] 05-21-2023 13:40-0500 Heart rate 80 /min Yaakov Richter MD Work Phone: [facility] 05-21-2023 13:40-0500 Respiratory rate 18 /min Yaakov Richter MD Work Phone: [facility] 05-21-2023 13:40-0500 SaO2% (BldA) [Mass fraction] 99 % Yaakov Richter MD Work Phone: [facility] 05-21-2023 13:40-0500 Systolic blood pressure 138 mm[Hg] Yaakov Richter MD Work Phone: [facility] 05-07-2023 22:45-0500 Body height 157.5 cm MISHEL MCCRARYT [facility] 05-07-2023 22:45-0500 Body temperature 98.42 [degF] MISHEL MCCRARYT DO [facility] 05-07-2023 22:45-0500 Body weight 84 kg MISHEL MCCRARYT DO [facility] 05-07-2023 22:45-0500 Diastolic Blood Pressure Non-Invasive 88 mm[Hg] MISHEL MCCRARYT DO [facility] 05-07-2023 22:45-0500 Heart rate 83 /min MISHEL MCCRARYT DO [facility] 05-07-2023 22:45-0500 Respiratory rate 18 /min MISHEL MCCRARYT DO [facility] 05-07-2023 22:45-0500 Systolic Blood Pressure Non-Invasive 175 mm[Hg] MISHEL PEREZ DO [facility] 05-16-2022 11:39-0500 Body height 157.5 cm Jennifer Santos MD Work Phone: [facility] 05-16-2022 11:39-0500 Body temperature 97.7 [degF] Jennifer Santos MD Work Phone: [facility] 05-16-2022 11:39-0500 Body weight 83.92 kg Jennifer Santos MD Work Phone: [facility] 05-16-2022 11:39-0500 Diastolic blood pressure 76 mm[Hg] Jennifer Santos MD Work Phone: [facility] 05-16-2022 11:39-0500 Heart rate 81 /min Jennifer Santos MD Work Phone: [facility] 05-16-2022 11:39-0500 Respiratory rate 12 /min Jennifer Santos MD Work Phone: [facility] 05-16-2022 11:39-0500 SaO2% (BldA) [Mass fraction] 96 % Jennifer Santos MD Work Phone: [facility] 05-16-2022 11:39-0500 Systolic blood pressure 124 mm[Hg] Jennifer Santos MD Work Phone: [facility] 03-17-2022 14:42-0400 Body weight 85.73 kg Arpit Beck MD Work Phone: [facility] 03-17-2022 14:42-0400 Diastolic blood pressure 74 mm[Hg] Arpit Beck MD Work Phone: [facility] 03-17-2022 14:42-0400 Heart rate 95 /min Arpit Beck MD Work Phone: [facility] 03-17-2022 14:42-0400 Respiratory rate 16 /min Arpit Beck MD Work Phone: [facility] 03-17-2022 14:42-0400 SaO2% (BldA) [Mass fraction] 98 % Arpit Beck MD Work Phone: [facility] 03-17-2022 14:42-0400 Systolic blood pressure 132 mm[Hg] Arpit Beck MD Work Phone: [facility] 03-03-2022 15:13-0400 Body height 157.5 cm Jennifer Santos MD Work Phone: [facility] 03-03-2022 15:13-0400 Body temperature 99.19 [degF] Jennifer Santos MD Work Phone: [facility] 03-03-2022 15:13-0400 Body weight 85.73 kg Jennifer Santos MD Work Phone: [facility] 03-03-2022 15:13-0400 Diastolic blood pressure 70 mm[Hg] Jennifer Santos MD Work Phone: [facility] 03-03-2022 15:13-0400 Heart rate 90 /min Jennifer Santos MD Work Phone: [facility] 03-03-2022 15:13-0400 Respiratory rate 12 /min Jennifer Santos MD Work Phone: [facility] 03-03-2022 15:13-0400 SaO2% (BldA) [Mass fraction] 95 % Jennifer Santos MD Work Phone: [facility] 03-03-2022 15:13-0400 Systolic blood pressure 126 mm[Hg] Jennifer Santos MD Work Phone: [facility] 03-02-2022 22:56-0400 Diastolic blood pressure 83 mm[Hg] Dr. Jennifer Santos Work Phone: [facility] Work Phone: 03-02-2022 22:56-0400 Heart rate 74 /min Dr. Jennifer Santos Work Phone: [facility] Work Phone: 03-02-2022 22:56-0400 Respiratory rate 16 /min Dr. Jennifer Santos Work Phone: [facility] Work Phone: 03-02-2022 22:56-0400 SaO2% (BldA) [Mass fraction] 98 % Dr. Jennifer Santos Work Phone: [facility] Work Phone: 03-02-2022 22:56-0400 Systolic blood pressure 180 mm[Hg] Dr. Jennifer Santos Work Phone: [facility] Work Phone: 03-02-2022 18:26-0400 Body height 157.[address] Jennifer Santos Work Phone: [facility] Work Phone: 03-02-2022 18:26-0400 Body mass index (BMI) [Ratio] 35.2 kg/m2 Dr. Jennifer Santos Work Phone: [facility] Work Phone: 03-02-2022 18:26-0400 Body temperature 97.8 [degF] Dr. Jennifer Santos Work Phone: [facility] Work Phone: 03-02-2022 18:26-0400 Body weight 87.[address] Jennifer Santos Work Phone: [facility] Work Phone: 02-18-2022 07:12-0400 Body height 160.02 cm [facility] Work Phone: 02-18-2022 07:12-0400 Body mass index (BMI) [Ratio] 33.8 kg/m2 [facility] Work Phone: 02-18-2022 07:12-0400 Body temperature 97.5 [degF] [facility] Work Phone: 02-18-2022 07:12-0400 Body weight 86.63 kg [facility] Work Phone: 02-18-2022 07:12-0400 Diastolic blood pressure 90 mm[Hg] [facility] Work Phone: 02-18-2022 07:12-0400 Heart rate 88 /min [facility] Work Phone: 02-18-2022 07:12-0400 Respiratory rate 18 /min [facility] Work Phone: 02-18-2022 07:12-0400 SaO2% (BldA) [Mass fraction] 99 % [facility] Work Phone: 02-18-2022 07:12-0400 Systolic blood pressure 186 mm[Hg] [facility] Work Phone: 02-07-2022 07:10-0400 Body temperature 98.2 [degF] Torrey Athy PA-C Work Phone: [facility] 02-07-2022 07:10-0400 Body weight 86.73 kg Torrey Athy PA-C Work Phone: [facility] 02-07-2022 07:10-0400 Diastolic blood pressure 76 mm[Hg] Torrey Athy PA-C Work Phone: [facility] 02-07-2022 07:10-0400 Heart rate 94 /min Torrey Athy PA-C Work Phone: [facility] 02-07-2022 07:10-0400 Respiratory rate 18 /min Torrey Athy PA-C Work Phone: [facility] 02-07-2022 07:10-0400 SaO2% (BldA) [Mass fraction] 97 % Torrey Athy PA-C Work Phone: [facility] 02-07-2022 07:10-0400 Systolic blood pressure 142 mm[Hg] Torrey Athy PA-C Work Phone: [facility] 01-25-2022 08:53-0400 Body temperature 96.8 [degF] Zee León APRN.EKG TECH Work Phone: [facility] 01-25-2022 08:53-0400 Body weight 86.82 kg Zee Romelia [employer] ATTENDANT.EKG TECH Work Phone: [facility] 01-25-2022 08:53-0400 Diastolic blood pressure 102 mm[Hg] Zee Romelia [employer] ATTENDANT.EKG TECH Work Phone: [facility] 01-25-2022 08:53-0400 Heart rate 93 /min Zee Romelia [employer] ATTENDANT.EKG TECH Work Phone: [facility] 01-25-2022 08:53-0400 Respiratory rate 21 /min Zee Romelia [employer] ATTENDANT.EKG TECH Work Phone: [facility] 01-25-2022 08:53-0400 SaO2% (BldA) [Mass fraction] 96 % Zee Romelia [employer]ATION ATTENDANT.EKG TECH Work Phone: [facility] 01-25-2022 08:53-0400 Systolic blood pressure 160 mm[Hg] Zee Romelia [employer]ATION ATTENDANT.EKG TECH Work Phone: [facility] 12-13-2021 13:19-0400 Body height 157.5 cm Natasha Rodey PA-C Work Phone: [facility] 12-13-2021 13:19-0400 Body temperature 98.01 [degF] Natasha Trevon PA-C Work Phone: [facility] 12-13-2021 13:19-0400 Body weight 87.54 kg Natasha Trevon PA-C Work Phone: [facility] 12-13-2021 13:19-0400 Diastolic blood pressure 68 mm[Hg] Natasha Trevon PA-C Work Phone: [facility] 12-13-2021 13:19-0400 Heart rate 101 /min Natasha Rodey PA-C Work Phone: [facility] 12-13-2021 13:19-0400 SaO2% (BldA) [Mass fraction] 98 % Natasha Trevon PA-C Work Phone: [facility] 12-13-2021 13:19-0400 Systolic blood pressure 112 mm[Hg] Natasha Lester PA-C Work Phone: [facility] 12-03-2021 13:52-0400 Body height 154.9 cm Kodi Muniz MD Work Phone: [facility] 12-03-2021 13:52-0400 Body temperature 98.71 [degF] Kodi Muniz MD Work Phone: [facility] 12-03-2021 13:52-0400 Body weight 86.64 kg Kodi Muniz MD Work Phone: [facility] 12-03-2021 13:52-0400 Diastolic blood pressure 90 mm[Hg] Kodi Muniz MD Work Phone: [facility] 12-03-2021 13:52-0400 Heart rate 98 /min Kodi Muniz MD Work Phone: [facility] 12-03-2021 13:52-0400 SaO2% (BldA) [Mass fraction] 92 % Kodi Muniz MD Work Phone: [facility] 12-03-2021 13:52-0400 Systolic blood pressure 128 mm[Hg] Kodi Muniz MD Work Phone: [facility] 10-28-2021 09:49-0400 Body height 156.2 cm Zofia Donnelly [employer] ATTENDANT.EKG TECH Work Phone: [facility] 10-28-2021 09:49-0400 Body temperature 97.39 [degF] Zofia Donnelly [employer]ATION ATTENDANT.EKG TECH Work Phone: [facility] 10-28-2021 09:49-0400 Body weight 87.77 kg Corolla Donnelly [employer]ICE [employer]ATION ATTENDANT.EKG TECH Work Phone: [facility] 10-28-2021 09:49-0400 Diastolic blood pressure 76 mm[Hg] Corolla Donnelly [employer]ATION ATTENDANT.EKG TECH Work Phone: [facility] 10-28-2021 09:49-0400 Heart rate 75 /min Zofia Donnelly [employer]ICE [employer]ATION ATTENDANT.EKG TECH Work Phone: [facility] 10-28-2021 09:49-0400 Systolic blood pressure 139 mm[Hg] Zofia Donnelly [employer]ATION ATTENDANT.EKG TECH Work Phone: [facility] Encounters Encounter Date Encounter Type Care Provider Facility Start: 04-26-2025 ambulatory [facility] Facility:[facility] Start: 04-26-2025 Evaluation and manag ement of inpatient [facility] Facility:[facility] Start: 04-24-2025 End: 04-24-2025 Emergency department patient visit [facility] Facility:[facility] Start: 04-13-2025 End: 04-13-2025 ambulatory [facility] Facility:[facility] Start: 04-07-2025 ambulatory [facility] Start: 04-07-2025 ambulatory [facility] Start: 04-07-2025 End: 04-07-2025 Evaluation and management of inpatient [facility] Facility:[facility] Start: 04-04-2025 ambulatory [facility] Facility:[facility] Start: 04-04-2025 Non-patient / Non-visit Dr. Bran gould MD -[facility] Start: 04-04-2025 End: 04-04-2025 Emergency department patient visit Dr. Teodoro Daley MD -Emergency Department Work Phone: Start: 01-03-2025 End: 01-03-2025 Patient encounter procedure [facility] [place] [facility] Work Phone: Start: 01-03-2025 End: [...] Santos MD Work Phone: Internal [facility] Start: 09-22-2024 End: 09-22-2024 ambulatory [facility] Facility:[facility] Start: 09-22-2024 End: 09-22-2024 Subsequent hospital visit by physician Screen Mammo [facility] Comment on above: Encounter for screen ing mammogram for breast cancer [Z12.31] Start: 09-14-2024 End: 09-14-2024 Telephone encounter Jennifer Santos MD Work Phone: Internal Medicine [place] Comment on above: Orders Start: 05-11-2024 End: 05-11-2024 Telephone encounter Torrey Dawson PA-C Work Phone: [facility] Comment on above: Results Start: 05-10-2024 End: 05-10-2024 [facility] Facility:[facility] Start: 05-10-2024 End: 05-10-2024 Patient encounter procedure Torrey Dawson PA-C Work Phone: [facility] Comment on above: Acute UTI (Primary D x); Screening for STD (sexually transmitted disease); Vaginal irritation Start: 11-18-2023 Telephone encounter Julieta nunez APRN.EKG TECH Work Phone: [facility] Comment on above: Results Start: 11-18-2023 End: 11-18-2023 Subsequent hospital visit by physician Xr [facility] Work Phone: Radiology Comment on above: Acute cough [R05.1] Start: 11-17-2023 End: 11-17-2023 Patient encounter procedure Elaine Lemus [employer] ATTENDANT.EKG TECH Work Phone: [facility] Comment on above: Sinobronchitis (Prim adeel Dx); Acute cough Start: 10-22-2023 Telephone encounter Cesar ann [employer]ICE [employer]ATION ATTENDANT.EKG TECH Work Phone: [facility] Comment on above: Results Start: 10-21-2023 End: 10-21-2023 Patient encounter procedure Torrey Dawson PA-C Work Phone: [facility] Comment on above: Vaginal itching (Bailee bahman Dx) Start: 09-30-2023 End: 09-30-2023 Subsequent hospital visit by physician Us [facility] Mob 1 Work Phone: Radiology Comment on above: Abnormal mammogram o f left breast [R92.8] Start: 09-07-2023 End: 09-07-2023 Subsequent hospital visit by physician Screen Mammo [facility] Mamm[facility] Comment on above: ER+ (estrogen recept or positive status) [Z17.0] Start: 09-04-2023 Telephone encounter Ashlyn cancino [employer]ICE [employer]ATION ATTENDANT.PLANT TENDER Work Phone: Mammogram Comment on above: Orders Start: 09-01-2023 Telephone encounter Jennifer elam MD Work Phone: Family Medicine [place] Comment on above: Orders Start: 08-31-2023 Telephone encounter Zofia torres [employer]ICE [employer]ATION ATTENDANT.EKG TECH Work Phone: Hematology/Oncology Start: 08-28-2023 End: 08-28-2023 Emergency department patient visit LENA JIMENEZ MD Facility:B Start: 08-28-2023 End: 08-28-2023 Emergency department patient visit LENA JIMENEZ MD [facility] Start: 08-28-2023 End: 08-28-2023 Emergency department patient visit [facility] Work Phone: Start: 08-28-2023 End: 08-28-2023 Patient encounter procedure Julieta Oreilly [employer]ATION ATTENDANT.EKG TECH Work Phone: [facility] Comment on above: Blurred vision, righ t eye (Primary Dx) Start: 05-26-2023 End: 05-27-2023 [facility]: Start: 05-21-2023 End: 05-21-2023 Patient encounter procedure Yaakov Richter MD Work Phone: [facility] Comment on above: Lip swelling (Primar y Dx) Angioedema of lips, subsequent encounter (Primary Dx) Start: 05-08-2023 End: 05-08-2023 Emergency department patient visit MISHEL PEREZ DO Facility:B Start: 05-07-2023 End: 05-07-2023 Emergency department patient visit MISHEL PEREZ DO [facility] Start: 11-17-2022 ambulatory Kelly Minaya MA [facility] [place] Comment on above: Population Health Na vigation Outreach ([employer] Gaps ) Start: 09-04-2022 Documentation procedure Mammog day Coordinator [facility] Start: 09-04-2022 Letter encounter Mammography Coordinator [facility] Department Start: 09-04-2022 Telephone encounter Zofia torres [employer] ATTENDANT.EKG TECH Work Phone: Hematology/Oncology Comment on above: Results Start: 09-03-2022 End: 09-03-2022 Subsequent hospital visit by physician Screen Mammo [facility] M[facility] Comment on above: 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] Start: 08-18-2022 Telephone encounter Zofia torres [employer] ATTENDANT.EKG TECH Work Phone: Hematology/Oncology Comment on above: Orders (Mammogram Sc reening) Start: 06-11-2022 ambulatory Jennifer Rhodes Work Phone: Internal Medicine [place] Comment on above: Medication Question Start: 05-16-2022 End: 05-16-2022 Patient encounter procedure Jennifer Santos MD Work Phone: Internal Medicine [place] Comment on above: Recurrent deep vein thrombosis (DVT) (HCC) (Primary Dx); Pedal edema; Other acute sinusitis, recurrence not specified Start: 03-17-2022 End: 03-17-2022 Patient encounter procedure Arpit Beck MD Work Phone: Family Medicine [place] Comment on above: Recurrent deep vein thrombosis (DVT) of lower extremity, unspecified laterality (HCC) (Primary Dx); Allergy to antithrombotic medication Start: 03-17-2022 Telephone encounter Jennifer elam MD Work Phone: Internal Medicine [place] Comment on above: Medication Question Swelling / itching i n left foot Start: 03-15-2022 Refill Jennifer Rhodes Work Phone: Internal Medicine [place] Comment on above: Refill Request Start: 03-03-2022 End: 03-03-2022 Patient encounter procedure Jennifer aSntos MD Work Phone: Internal Medicine [place] Comment on above: Anxiety (Primary Dx) ; DVT (deep vein thrombosis) in ; Hyperlipidemia with target low density lipoprotein (LDL) cholesterol less than 130 mg/dL Start: 03-02-2022 End: 03-02-2022 Emergency department patient visit Dr. Jennifer Santos [facility] Start: 02-18-2022 Non-patient / Non-visit Dr. Mena Santos Work Phone: [facility] Start: 02-18-2022 End: 02-18-2022 [facility] Start: 02-07-2022 Telephone encounter Torrey frank PA-C Work Phone: [facility] Comment on above: Results Start: 02-07-2022 End: 02-07-2022 Patient encounter procedure Torrey Dawson PA-C Work Phone: [facility] Comment on above: Left leg swelling (P rimary Dx) Start: 01-25-2022 End: 01-25-2022 Patient encounter procedure Zee León APRN.EKG TECH Work Phone: [facility] Comment on above: Urinary frequency [...] Riley RN He matology/Oncology Comment on above: 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 Court Registrar - O ther (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 ) Start: 10-28-2021 End: 10-28-2021 ambulatory Zofia Donnelly APRN.EKG TECH Work Phone: Hematology/Oncology Comment on above: 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) (Primary Dx); Cellulitis of axillary region Start: 10-28-2021 End: 10-28-2021 Patient encounter procedure Zofia Donnelly APRN.EKG TECH Work Phone: [facility] Start: 09-02-2021 End: 09-02-2021 Subsequent hospital visit by physician Screen Mammo [facility] Comment on above: 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] Start: 05-31-2021 Telephone encounter Jennifer elam MD Work Phone: Internal Medicine [place] Comment on above: Patient Update Procedures Date [...] exam ches t 2 views Elaine Lemus APRN.EKG TECH Work Phone: Start: 10-21-2023 BACTERIAL VAGINOSIS NAAT Torrey Dawson PA-C Work Phone: Start: 10-21-2023 Iadna trichomonas va [facility]inal[facility] amplified probe tech Torrey Dawson PA-C Work Phone: Start: 10-21-2023 Urnls dip stick/tabl et rgnt auto w/o microscopy Torrey Dawson PA-C Work Phone: Start: 09-30-2023 Us breast uni real t joi with image limited Ashlyn Roger [employer]ICE [employer]ATION ATTENDANT.PLANT TENDER Work Phone: Start: 09-30-2023 Digital breast tomosynthesis unilateral Ashlyn Roger [employer] SERVICE STATION ATTENDANT.PLANT TENDER Work Phone: Start: 09-03-2022 BARBARA SCREENING W EL Da inge Donnelly MAR[employer] SERVICE STATION ATTENDANT.EKG TECH Work Phone: Start: 09-03-2022 Mammography Zofia torres [employer] SERVICE STATION ATTENDANT.EKG TECH Work Phone: Start: 01-25-2022 Urnls dip stick/tabl et rgnt auto w/o microscopy Zee León MARINE SERVICE STATION ATTENDANT.EKG TECH Work Phone: Start: 10-28-2021 Adult depression scr eening assessment Zofia Donnelly MARINE SERVICE STATION ATTENDANT.EKG TECH Work Phone: Start: 09-02-2021 End: 09-02-2021 Screening mammography bi 2-view breast inc cad Zofia Donnelly [employer]INE SERVICE [employer]ATION ATTENDANT.EKG TECH Work Phone: Start: 09-06-2020 Adult depression scr eening assessment Screen [facility] Start: 08-23-2018 Lipid 1996 panel - S daniel or Plasma Screen [facility] Start: 08-08-2014 Colonoscopy Screen Wst r Plan of Treatment Date Care Activity Detail Author Start: 05-22-2026 Diabetes Screening Diabetes Screenin g [facility] Start: 09-22-2025 Screening for malign ant neoplasm of breast Mammogram Screening [facility] Start: [facility] Start: 04-07-[facility]25 Non-patient / Non-visit Non-patient / [facility] Start: 04-07-2025 MRI of brain without contrast Brain without Contrast [facility] Start: 04-07-2025 Following clinical pathway protocol [facility] Start: 04-07-2025 Cardiac monitoring [facility] Start: 04-07-2025 Catheterization of vein [facility] Start: 04-07-2025 Consultation [facility] Start: 04-07-2025 Continuous pulse oximetry [facility] Start: 04-07-2025 Elevation of head of bed [facility] Start: 04-07-2025 Exercises [facility] Start: 04-07-2025 Notification of physician [facility] Start: 04-07-2025 Oxygen therapy [facility] Start: 04-07-2025 Patient referral to dietitian [facility] Start: 04-07-2025 Referral for physica l therapy [facility] Start: 04-07-2025 Referral to occupati onal therapist [facility] Start: 04-07-2025 Referral to service [facility] Start: 04-07-2025 Speech therapy assessment [facility] Start: 04-07-2025 Telemedicine consult ation with patient [facility] Start: 04-07-2025 Tobacco use cessatio n education [facility] Start: 04-07-2025 End: 04-07-2025 [facility] Start: 04-07-2025 Vital signs measurements [facility] Start: 04-07-2025 Admission procedure [facility] Start: 04-07-2025 End: 04-07-2025 Evaluation and management of inpatient Confusion -Progressive Care Unit Work Phone: Start: 04-07-2025 CT angiography of he ad and neck CTA Head AND Neck W/ Contrast [facility] Start: 04-07-2025 CT of head without contrast Brain/Head without Contrast [facility] Start: 04-07-2025 [facility] Start: 04-04-2025 Emergency department visit moderate severity EMERGENCY DEPT VISIT LOW MDM [facility] Start: 04-04-2025 [facility] Start: 2025 RSV Vaccine (1 - 1-d ose 75+ series) RSV Vaccine (1 - 1-dose 75+ series) [facility] Start: 02-13-2025 Influenza vaccination [facility] Start: 09-22-2024 End: 09-22-2024 Patient encounter procedure 09/22/2024 9:50 AM EDT Appointment Mammogram [address] [place] [address] yearly mammogram with el Mammogram Comment on above: yearly mammogram wit h el Start: 09-06-2024 Screening for malign ant neoplasm of breast Mammogram Screening [facility] Start: 08-08-2024 Colonoscopy COLONOSCOPY [facility] Start: 08-08-2024 COLORECTAL CANCER SCREENING COLORECTAL CANCER SCREENING [facility] Start: 08-08-2024 Screening for malign ant neoplasm of colon [facility] Start: 06-15-2024 Advance Directive Discussion Advance Directive Discussion [facility] Start: 06-15-2024 Medicare Advantage A nnual Wellness Visit Medicare Advantage Annual Wellness Visit [facility] Start: 02-14-2024 Covid-19 Vaccine () Covid-19 Vaccine () [facility] Start: 02-14-2024 Influenza vaccination [facility] Start: 09-04-2023 Mammography [facility] Start: 09-04-2023 Screening for malign ant neoplasm of breast Mammogram Screening [facility] Start: 08-24-2023 Lipid 1996 panel - S daniel or Plasma Lipid Screening [facility] Start: 08-24-2023 Lipid panel Lipid Screening [facility] Start: 08-24-2023 LIPID SCREEN LIPID SCREEN [facility] Start: 06-15-2023 Advance Directive Discussion Advance Directive Discussion [facility] Start: 06-15-2023 Behavioral Health Screening Behavioral Health Screening [facility] Start: 06-15-2023 Depression Assessment Depression Ass essment [facility] Start: 05-27-2023 [facility] Start: 05-21-2023 End: 08-20-2023 Comprehensive metabolic 2000 panel - Serum or Plasma COMP METABOLIC PANEL Lab Routine Angioedema of lips, subsequent encounter Expected: 05/21/2023, Expires: 08/20/2023 [facility] Work Phone: Comment on above: Expected: 05/21/2023 , Expires: 08/20/2023 Start: 05-04-2023 Urine microalbumin profile DTaP,Tdap,Td Vaccine (1 - Tdap) [facility] Start: 02-13-2023 Covid-19 Vaccine ( season) Covid-19 Vaccine () [facility] Start: 02-13-2023 Influenza vaccination [facility] Start: 10-28-2022 Adult depression screening assessment DEPRESSION SCREENING [facility] Start: 09-02-2022 Mammography MAMMOGRAM [facility] Start: 06-15-2022 ADVANCE DIRECTIVE DISCUSSION ADVANCE DIRECTIVE DISCUSSION [facility] Start: 06-15-2022 DEPRESSION ASSESSMENT DEPRESSION ASS ESSMENT [facility] Start: 03-03-2022 End: 05-03-2022 Basic metabolic 2000 panel - Serum or Plasma BASIC METABOLIC PNL Lab Routine Hyperlipidemia with target low density lipoprotein (LDL) cholesterol less than 130 mg/dL Expected: 03/03/2022, Expires: 05/03/2022 [facility] Work Phone: Comment on above: Expected: 03/03/2022 , Expires: 05/03/2022 Start: 03-03-2022 End: 05-03-2022 CBC W Auto Differential panel - Blood CBC + DIFF Lab Routine DVT (deep vein thrombosis) in Expected: 03/03/2022, Expires: 05/03/2022 [facility] Work Phone: Comment on above: Expected: 03/03/2022 , Expires: 05/03/2022 Start: 03-03-2022 End: 05-03-2022 Lipid 1996 panel - Serum or Plasma LIPID PANEL BASIC Lab Routine Hyperlipidemia with target low density lipoprotein (LDL) cholesterol less than 130 mg/dL Expected: 03/03/2022, Expires: 05/03/2022 [facility] Work Phone: Comment on above: Expected: 03/03/2022 , Expires: 05/03/2022 Start: 02-13-2022 Influenza vaccination INFLUENZA (#1) [facility] Start: 09-06-2021 Adult depression screening assessment DEPRESSION SCREENING [facility] Start: 08-23-2021 DIABETES SCREEN DIABETES SCREEN [facility] Start: 08-23-2021 Diabetes Screening Diabetes Screenin g [facility] Start: 08-03-2021 COVID-19 VACCINE (4 - Booster for Pfizer series) COVID-19 VACCINE (4 - Booster for Pfizer series) [facility] Start: 06-15-2021 ADVANCE DIRECTIVE DISCUSSION ADVANCE DIRECTIVE DISCUSSION [facility] Start: 06-15-2021 DEPRESSION ASSESSMENT DEPRESSION ASS ESSMENT [facility] Start: 05-28-2021 COVID-19 VACCINE (4 - Booster for Pfizer series) COVID-19 VACCINE (4 - Booster for Pfizer series) [facility] Start: 05-28-2021 COVID-19 VACCINE (4 - Pfizer series) COVID-19 VACCINE (4 - Pfizer series) [facility] Start: 07-13-2015 FECAL OCCULT BLOOD FECAL OCCULT BLOO D [facility] Start: 07-13-2015 Screening for malign ant neoplasm of colon Fecal Occult Blood [facility] Start: 2010 RSV Vaccine (1 - 1-d ose 60+ series) RSV Vaccine (1 - 1-dose 60+ series) [facility] Start: 02-21-2000 SHINGRIX VACCINE (1 of 2) FERRELL GRIX VACCINE (1 of 2) [facility] Start: 1995 COLOGUARD (FIT-DNA) COLOGUARD (FIT-D NA) [facility] Start: [address] COLONOGRAPHY [facility] Start: 1995 Screening for malign ant neoplasm of colon [facility] Start: 1995 SIGMOIDOSCOPY SIGMOIDOSCOPY [facility] Start: 1969 SHINGRIX VACCINE (1 of 2) FERRELL GRIX VACCINE (1 of 2) [facility] Start: 1969 Urine microalbumin profile [facility] Start: 02-21-1968 Depression Screening Depression Scre ening [facility] Start: 02-21-1968 HEPATITIS C SCREENING HEPATITIS C [facility] Start: 02-21-1968 Hepatitis C screening Hepatitis C [facility] Bacteria identified in Urine by Culture URINE CULTURE Microbiology Routine Urinary frequency Ordered: 01/25/2022 [facility] Work Phone: Comment on above: Ordered: 01/25/2022 Bacteria identified in Urine by Culture URINE CULTURE Microbiology Routine Acute UTI Ordered: 05/10/2024 [facility] Work Phone: Comment on above: Ordered: 05/10/2024 BACTERIAL VAGINOSIS AMPLIFICATION BACTERIAL VAGINOSIS AMPLIFICATION Lab Routine Acute vaginitis Ordered: 01/25/2022 [facility] Work Phone: Comment on above: Ordered: 01/25/2022 BACTERIAL VAGINOSIS NAAT BACTERI AL VAGINOSIS NAAT Lab Routine Screening for STD (sexually transmitted disease) 05/10/2024 1:17 PM EST [facility] ALBA / TRICHOMONA S AMPLIFICATION ALBA / TRICHOMONAS AMPLIFICATION Lab Routine Acute vaginitis Ordered: 01/25/2022 [facility] Work Phone: Comment on above: Ordered: 01/25/2022 ALBA/TRICHOMONAS NAAT ALBA /TRICHOMONAS NAAT Lab Routine Screening for STD (sexually transmitted disease) 05/10/2024 1:17 PM EST [facility] Chlamydia trachomatis+Neisseria gonorrhoeae DNA [Presence] in Unspecified specimen by RADHA with probe detection GONORRHEA/CHLAMYDIA NAAT Lab Routine Screening for STD (sexually transmitted disease) 05/10/2024 1:17 PM EST [facility] Comprehensive metabo lic 2000 panel - Serum or Plasma COMP METABOLIC PANEL Lab Routine Angioedema of lips, subsequent encounter 05/22/2023 10:39 AM EST [facility] Work Phone: End: 09-30-2024 DBT Breast - bilateral screening BARBARA SCREENING W EL Radiology Routine ER+ (estrogen receptor positive status) Encounter for screening mammogram for breast cancer 1 Occurrences starting 09/01/2023 until 09/30/2024 [facility] Work Phone: Comment on above: 1 Occurrences starti ng 09/01/2023 until 09/30/2024 DBT Breast - bilater al screening BARBARA SCREENING W EL Radiology Routine ER+ (estrogen receptor positive status) Encounter for screening mammogram for breast cancer 09/07/2023 2:25 PM EDT [facility] Work Phone: End: 10-14-2025 DBT Breast - bilateral screening BARBARA SCREENING W EL Radiology Routine Encounter for screening mammogram for breast cancer 1 Occurrences starting 09/14/2024 until 10/14/2025 [facility] Work Phone: Comment on above: 1 Occurrences starti ng 09/14/2024 until 10/14/2025 DBT Breast - bilater al screening BARBARA SCREENING W EL Radiology Routine Encounter for screening mammogram for breast cancer 09/22/2024 9:57 AM EDT [facility] Work Phone: Patient Education [facility] Work Phone: Patient referral [facility] Work Phone: End: 12-16-2024 XR Chest PA and Lateral XR CHEST 2V FRONTAL/LAT Radiology STAT Acute cough 1 Occurrences starting 11/17/2023 until 12/16/2024 [facility] Work Phone: Comment on above: 1 Occurrences starti ng 11/17/2023 until 12/16/2024 [facility] Immunizations Immunization Date Immunization Notes Care Provider [facility] 05-03-2023 tetanus and diphther ia toxoids, adsorbed, preservative free, for adult use (5 Lf of tetanus toxoid and 2 Lf of diphtheria toxoid) Yaakov Richter MD Work Phone: [facility] 04-02-2021 COVID-19 vaccine, ag e 12+ yr ([employer] - PURPLE TOP) Screen [facility] 04-02-2021 influenza (aIIV4) vaccine, age 65+ yr, quadrivalent, PF (FLUAD QUAD) Yaakov Richter MD Work Phone: [facility] 04-02-2021 influenza, seasonal, injectable Screen [facility] 04-02-2021 influenza virus vacc ine, unspecified formulation Screen [facility] 09-13-2020 Covid (Pfizer) [facility] 08-23-2020 COVID-19 vaccine, ag e 12+ yr ([employer] - PURPLE TOP) Screen [facility] 02-28-2020 influenza, high-dose , quadrivalent vaccine (FLUZONE HIGH DOSE QUADRIVALENT) Screen [facility] 02-28-2020 pneumococcal polysaccharide vaccine, 23 valent Screen [facility] 03-28-2019 influenza, high dose seasonal, preservative-free Screen [facility] 04-18-2017 influenza, seasonal, injectable Screen [facility] 03-18-2016 influenza, high dose seasonal, preservative-free Screen [facility] 04-06-2015 influenza, high dose seasonal, preservative-free Screen [facility] 04-06-2015 pneumococcal conjuga te vaccine, 13 valent Screen [facility] Payers Date Payer Category Payer Self-pay [id number] 2023 Private Health Insurance [id number] 2021 Medicare HUMANA MEDICARE HUMANA MEDICARE PPO [id number] 2021-Present [phone] [address] [place] [address] PPO [id number] 2021 Medicare HUMANA MEDICARE HUMANA MEDICARE PPO [id number] 2021- [phone] [place] [address] PPO [id number] 2021 Medicare (Managed Care) HU[employer]NA EDICARE [id number] 2021 Private Health Insurance [id number] 2014 Medicaid MEDICAID [id number] 1950 Unknown [id number] 1950 Unknown [id number] Medicare MEDICARE PART A B [id number] Unknown [id number] Unknown [id number] 462 Unknown [id number] Unknown [id number] Unknown [id number] 462 Unknown [id number] 462 Unknown [id number] 462 Unknown [id number] 462 Unknown [id number] 462 Unknown [id number] 462 Social History Date Type Detail Facility Start: 08-27-2012 End: 08-28-2023 Tobacco smoking status WYIS Never smoked tobacco [facility] Work Phone: Start: 07-29-2021 End: 05-10-2024 Alcohol intake Current non-drinker of alcohol (finding) [facility] Start: 1950 Sex Assigned At Not on file [facility] Start: 08-23-2021 End: 05-16-2022 Exposure to SARS-CoV-2 (event) Not sure [facility] Start: 08-27-2012 End: 02-07-2022 Tobacco use and exposure Smokeless tobacco non-user [facility] Start: 02-18-2022 End: 04-07-2025 Tobacco smoking status NHIS Unknown if ever smoked [facility] Start: 01-23-2020 None [facility] Start: 01-23-2020 Alone [facility] Start: 1950 Sex Assigned At Female [facility] Start: 02-21-2022 End: 03-03-2022 Exposure to SARS-CoV-2 (event) Yes [facility] Work Phone: Start: 11-26-2022 End: 09-07-2023 History of Social function [facility] Work Phone: Start: 11-26-2022 End: 09-07-2023 Tobacco use panel [facility] Work Phone: Adult Depression Screening Assessment 6 [facility] Work Phone: Goals Date Patient Goal Desired Activity /State Functional Status Date Assessment Result Facility 04-07-2025 Functional status Standby Assist [facility] Work Phone: 08-28-2023 Functional Status ID band on, Call device within reach, Bed in low position, Wheels locked, Safety level maintained [facility] 05-07-2023 Functional Status Resting [facility] 09-16-2018 Are you deaf, or do you have serious difficulty hearing No 09/16/2018 5:47 PM Xavier Sauceda III, MD No [facility] 09-16-2018 Are you blind, or do you have serious difficulty seeing, even when wearing glasses No 09/16/2018 5:47 PM Xavier Sauceda III, MD [facility] 09-16-2018 Do you have serious difficulty walking or climbing stairs No 09/16/2018 5:47 PM Xavier Sauceda III, MD No [facility] 09-16-2018 Do you have difficul ty dressing or bathing No 09/16/2018 5:47 PM EDT Xavier Poon III, MD No [facility] 09-16-2018 Because of a physica l, mental, or emotional condition, do you have difficulty doing errands alone such as visiting a physician's office or shopping No 09/16/2018 5:47 PM EDT Xavier Poon III, MD No [facility] Mental Status Date Assessment Result Facility 04-07-2025 Cognitive function Voice/Name [facility] Work Phone: 08-28-2023 Mental Status Oriented x 4 [facility] 05-07-2023 Mental Status Oriented x 4 [facility] 09-16-2018 Because of a physica l, mental, or emotional condition, do you have serious difficulty concentrating, remembering, or making decisions No 09/16/2018 5:47 PM EDT Xavier Poon III, MD No [facility] Clinical Notes 08-09-2014 to 04-13-2025 Note Date & Type Note Facility 04-13-2025 Note HNO ID: [id number] Author: KELLE PETER APRN.EKG TECH Service: ? Author Type: Nurse Practitioner Type: Progress Notes Filed: 04/17/2025 08:20 Note Text: CC: Patient presents with: Recheck: [facility] ER follow up, DVT in leg HPI Ilene Shaw is a 75 year old female who presents today for follow up. Recording using [employer] software for draft documentation of the visit was discussed with the patient/authorized senior patient account representative; all questions welcomed and answered. Patient/authorized senior patient account representative agreed to proceed Ilene is a 75-year-old [...] Influenza Vaccine(1) due on 02/13/2025 Covid-19 Vaccine( season) due on 02/13/2025 RSV Vaccine(1 - 1-dose 75+ series) Never done Diabetes Screening due on 05/22/2026 Bone Density Screening Completed Pneumococcal Vaccine: 50+ Completed Mammogram Screening Discontinued DATA REVIEWED: Outside chart from [facility] reviewed. Assessment/Plan 1. Acute embolism and thrombosis [...] kidney function st (more content not included)... [facility] 04-07-2025 Note [facility] Medical Records Department [address] [place] [address] Discharge Summary 04/07/25 1616 MR#: [id number] Acct: [id number] Name: ILENE SHAW Rep #: [id number] : 1950 75 From: Bran Courtney DO PCP: Dr. Jennifer Santos MD Status:ADM IN Location: [address] Providers Date of Admission: 04/07/25 Primary Care [...] (74 tabs) tablets in a dose pack (IdealSeat DVT-PE Treat 30D Start) See Rx Instructions [...] % (Auto) 59.7, Lymph % (Auto) 25.2, [place] % (Auto) 6.5, Eos % (Auto) 7.8 H, Baso % (Auto) 0.6, Absolute Neuts (auto) 5.1, Absolute Lymphs (auto) (more content not included)... [facility] 04-04-2025 Discharge summary Note Date/Time April 04, 2025 1:48pm [facility] Medical Records Department [address] [place] [address] Emergency Department Summary 04/04/25 MR#: [id number] Acct: [id number] Name: ILENE SHAW Rep #:[id number] : 1950 75 From: Teodoro Daley [...] housing: house Smoking Status: Never smoker [facility] ED Cardiovascular Cardiovascular: Denies chest pain, orthopnea, [...] 72.5 H Lymph % (Auto) 14.8 L [place] % (Auto) 5.3 Eos % (Auto) 6.3 [...] pack prescription. She was instructed follow-up with rj since she will need to be on [...] elevated in the emergency department. Print Language: Senegalese Disposition Disposition: Home, Self Care What to do if you have Problems For any increased pain, shortness of breath, bleeding, nausea or vomiting, chestpain, or any unexpected problems, contact your Primary Care Provider. Call [facility] ([phone]) or report to the closest Emergency Room. Call 911 if necessary. 04/04/25 1248 <Electronically signed by Teodoro Daley MD> Cosigner Signature (if applicable): CC: Dr. Jennifer Santos MD ~ Signed [facility] Work Phone: 1(893) 511-239810-21-2025 Discharge summary [facility] Medical Records Department [address] [place] [address] Emergency Department Summary 04/04/25 MR#: [id number] Acct: [id number] Name: ILENE SHAW Rep #:[id number] : 1950 75 From: Teodoro Daley [...] 72.5 H Lymph % (Auto) 14.8 L [place] % (Auto) 5.3 Eos % (Auto) 6.3 [...] pack prescription. She was instructed follow-up with [facility] since she will need to be [facility] for 3 to 6 months. Discharge Plan [...] elevated in the emergency department. Print Language: Senegalese Disposition Disposition: Home, Self Care What to do if you have Problems For any increased pain, shortness of breath, bleeding, nausea or vomiting, chestpain, or any unexpected problems, contact your Primary Care Provider. Call [facility] ([phone]) or report tothe closest Emergency Room. Call 911 if necessary. 04/04/25 1248 Cosigner Signature (if applicable): CC: Dr. Jennifer Santos MD ~ Signed [facility]07-22-2025 Evaluation note* Diagnosis Onset Date Resolution Status [...] posterior cerebral artery deleted April 07 3:39am [facility] Work Phone: 1(133) 104-223407-08-2025 NoteHNO ID: [id number] Author: ?, ?, ? Service: ? Author Type: ? Type: Progress Notes Filed: 12/20/2024 09:23 Note Text: [facility] History of Present illness Narrative* Nicki Conley - 12/20/2024 9:23 AM EDT 3rd attempt LVM and mailed letter * Nicki Conley - 12/07/2024 10:42 AM EDT 2nd attempt LVM to schedule colonoscopy * Angelica Triplett - 11/30/2024 11:46 AM EDT 1'st attempt to schedule est well visit and open access colonoscopy. LVM to return call [facility]06-[facility]-2025 NoteHNO ID: [id number] Author: ?, ?, ? Service: ? Author Type: ? Type: Progress Notes Filed: 12/20/2024 09:23 Note Text: 2nd attempt [facility]25 Note HNO ID: [id number] Author: ?, ?, ? Service: ? Author Type: ? Type: Progress Notes Filed: 12/20/2024 09:23 Note Text: 1'st attempt to schedule est well visit and open access colonoscopy. LVM to return [facility]06-[facility]-2025 Instructions* Patient Instructions* Lisa Whalen RN - [...] am on dialysis? A: Please consult your carry out clerk prior to scheduling to get instructions pertinent to you. In general, dialysis patients take the Takeaway.comytely bowel prep and have the procedure same [...] to inadequate prep quality. documented in [facility] encounterKn[facility]06-17-2025 NotePatient Outreach (ASWSTR) ILENE SHAW ([id number]) 1950 F Date Time Provider Department 11/29/24 JENNIFER SANTOS ASSAMREENTR During your visit today, we recorded the [...] Diabetic patients buy sugar-free, (more content not included)...[facility]04-10-2025 History of Present illness Narrative* Colin Ozuna [...] PATIENT PRESENTS WITH AN IMPLANTABLE OR ATTACHED LINING FELLER: No RADIOLOGY DEPARTMENT: Mammography PERIPHERAL IV DATA: Not applicable SIGNED BY: Natalee Peterson September 22, 2024 10:33 AM documented in this encounterKn[facility]04-10-2025 NoteHNO ID: [id number] Author: COLIN OZUNA Mammo Tech Service: ? Author Type: Research Contracts Supervisor Type: Progress Notes Filed: 09/22/2024 10:33 Note [...] PATIENT PRESENTS WITH AN IMPLANTABLE OR ATTACHED LINING FELLER: No RADIOLOGY DEPARTMENT: Mammography PERIPHERAL IV DATA: Not applicable SIGNED BY: Natalee Peterson September 22, 2024 10:33 [facility]04-02-2025 Telephone encounter Note* Telephone Encounter - Kelle Peter APRN.CNP - 09/14/2024 4:48 PM EDT Order placed Kelle Peter APRN.CNP [facility]04-02-2025 Miscellaneous Notes* Telephone Encounter - Kelle Peter APRN.CNP - 09/14/2024 4:48 PM EDT Order placed Kelle Peter APRN.CNP * Telephone Encounter - Soraya Pena - 09/14/2024 1:02 PM EDT Patient calling in for her yearly mammogram with el. Patient is scheduled, she just needs an order. Please review Soraya Pena September 14, 2024 1:03 PM documented in [facility]Kn[facility]04-02-2025 Telephone encounter Note * Telephone Encounter - Soraya Pena - 09/14/2024 1:02 PM EDT Patient calling in for her yearly mammogram with el. Patient is scheduled, she just needs an order. Please review Soraya Pena September 14, 2024 1:03 PM [facility]11-27-2024 Telephone encounter Note* Telephone Encounter - Claudette Dial LPN - 05/11/2024 7:07 PM EST Patient given results and verbalized understanding of instructions given. Claudette Dial LPN [facility]11-27-2024 Miscellaneous Notes* Telephone Encounter - Claudette Dial [...] PCP if no improvement. documented in this encounterKnox [facility] Hospital11-27-2024 Telephone encounter Note * Telephone Encounter - Montse Ramirez LPN - 05/11/2024 9:48 AM EST Left message for patient to return call for results.Montse Ramirez LPN [facility]11-27-2024 Telephone encounter Note* Telephone Encounter - Torrey Dawson PA-C - 05/11/2024 8:41 AM EST Please call and let patient know her STD testing was negative. She did test positive for yeast. I did send in medication for this. Urine culture is still pending will call as needed. Continue antibiotic as well. Follow-up with PCP if no improvement. [facility]11-26-2024 NoteHNO ID: [id number] Author: TORREY DAWSON PA-C Service: ? Author Type: Physician Gauger Chief Delivery Type: Progress Notes Filed: 05/10/2024 14:21 Note Text: This note was created using NoteWriter. Subjective Ilene Shaw is a 74 year [...] AND DRAINAGE PILONIDAL CYST SIMPLE MASTECTOMY, PARTIAL 3-6-15 RIGHT PERQ BREAST LOC DEVICE PLACEMT 1ST [...] Exam Vitals reviewed. Exam conducted with a cylinder dyer present (Claudette ARTHUR). Constitutional: Appearance: Normal appearance. [...] N89.8 Given Mycolog cream for irritation. [facility]11-26-2024 History of Present illness Narrative* Torrey Dawson PA-C - 05/10/2024 2:17 PM EST This note was created using [employer]. Subjective Ilene Shaw is a 74 year [...] Exam Vitals reviewed. Exam conducted with a cylinder dyer present (Claudette ARTHUR). Constitutional: Appearance: Normal appearance. [...] irritation. Torrey Dawson PA-C documented in this encounterKn[facility] Hospital06-05-2024 Telephone encounter Note * Telephone Encounter - Norma Tatum MA - 11/18/2023 1:08 PM EDT Patient given results and verbalized understanding of instructions given. Norma Tatum MA [facility]06-05-2024 Miscellaneous Notes* Telephone Encounter - Norma Tatum MA - 11/18/2023 1:08 PM EDT Patient given results and verbalized understanding of instructions given. Norma Tatum MA * Telephone Encounter - Julieta Oreilly APRN.CNP - 11/18/2023 11:32 AM EDT CXR negative. Please notify patient. Complete ATB and follow up with PCP as needed. Please advise patient. documented in this encounterKnox [facility] Hospital06-05-2024 Telephone encounter Note * Telephone Encounter - Julieta Oreilly APRN.CNP - 11/18/2023 11:32 AM EDT CXR negative. Please notify patient. Complete ATB and follow up with PCP as needed. Please advise patient. [facility] Work Phone: 1(519) 190-961006-05-2024 History of Present illness Narrative* Mary Castro RT(R) - 11/18/2023 11:00 AM EDT Radiology Service [...] PATIENT PRESENTS WITH AN IMPLANTABLE OR ATTACHED LINING FELLER: No RADIOLOGY DEPARTMENT: General X-ray: Exam(s) Completed: Chest X-Ray PERIPHERAL IV DATA: Not applicable SIGNED BY: RT Ravi(R) November 18, 2023 10:45 AM documented in this encounterKnox Community Hospital06-04-2024 History of Present illness Narrative* Elaine Lemus APRN.EKG TECH - 11/17/2023 6:40 PM EDT Subjective HPI [...] Discussed expected course of illness Elaine Lemus APRN.EKG TECH documented in this encounterKnox Community Hospital06-04-2024 Instructions* Patient Instructions* Elaine Lemus APRN.LACY - 11/17/2023 6:40 PM EDT ASSESSMENT/PLAN: 1. [...] days of proper treatment. documented in this encounterKnox [facility] Hospital05-09-2024 Telephone encounter Note * Telephone Encounter - Julieth Houston MA - 10/22/2023 8:28 AM EDT Patient returned call, notified of results, states symptoms are improving with cream and will follow up for any persistent symptoms. Julieth Houston MA [facility]05-09-2024 Miscellaneous Notes* Telephone Encounter - Julieth Houston [...] I will order diflucan. documented in this encounterKnox [facility] Hospital05-09-2024 Telephone encounter Note * Telephone Encounter - Julieth Houston MA - 10/22/2023 8:23 AM EDT Left VM instructing patient to return call to discuss. Julieth Houston MA [facility]05-09-2024 Telephone encounter Note* Telephone Encounter - Cesar Ralph APRN.CNP - 10/22/2023 7:12 AM EDT Please notify labs were positive for yeast. The mycolog cream ordered may be sufficient to treat. Ask how s/s area. If s/s persisting I will order diflucan. [facility] Work Phone: 1(126) 940-330805-08-2024 History of Present illness Narrative* Torrey Dawson PA-C - 10/21/2023 12:47 PM EDT This note was created using [employer]. Subjective Ilene Shaw is a 73 year [...] NAAT Torrey Dawson PA-C documented in this encounterKnox Community Hospital04-17-2024 History of Present illness Narrative* Prashanth Hunter Mammo Tech - 09/30/2023 2:30 PM EDT Radiology Service [...] PATIENT PRESENTS WITH AN IMPLANTABLE OR ATTACHED LINING FELLER: No RADIOLOGY DEPARTMENT: Mammography PERIPHERAL IV DATA: Not applicable SIGNED BY: Natalee Malin September 30, 2023 2:39 PM documented in this encounterKnox Community Hospital03-25-2024 History of Present illness Narrative* Hannah Kohler [...] PATIENT PRESENTS WITH AN IMPLANTABLE OR ATTACHED LINING FELLER: No RADIOLOGY DEPARTMENT: Mammography PERIPHERAL IV DATA: Not applicable SIGNED BY: Nory Goodeo Maciel September 07, 2023 1:50 PM documented in this encounterKnox Community Hospital03-22-2024 Miscellaneous Notes* Telephone Encounter - Ashlyn Roger APRN.CNS - 09/04/2023 8:08 AM EDT The order is already filed, do I need to re-enter it? * Telephone Encounter - Colin Ozuna Mammo Maciel - 09/04/2023 7:51 AM EDT Can you release the mammogram order? Pt scheduled with us 09/06. Thanks a million documented in this encounterKnox Community Hospital03-19-2024 Miscellaneous Notes* Telephone Encounter - Mattie Samayoa [...] ordered. Micaela Beaulieu LPN documented in this encounterKnox Community Hospital03-18-2024 Miscellaneous Notes* Telephone Encounter - Bonnie Ibarra LPN - 08/31/2023 2:19 PM EDT Detailed message left on patient's identified VM. Bonnie Ibarra LPN * Telephone Encounter - Zofia Donnelly APRN.CNP - 08/31/2023 2:07 PM EDT Pt. 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 Follow up here as needed. Thank you. Zofia Donnelly APRN.EKG TECH * Telephone Encounter - Bonnie Ibarra LPN [...] follow up with you. documented in this encounterKnox Community Hospital03-15-2024 Hospital Discharge instructions Patient Education 08/28/2023 18:55:31 [...] bleeding from other parts of your body 7025-4504 [employer]. [address] [place] [address]. All rights reserved. This information is not intended as a substitute for professional medical care. Always follow yourhealthcare professional's instructions. Follow Up Care 08/28/2023 18:24:22 With:JENNIFER SANTOS MD Address: [facility] [place] [address]- When:2-4 days [facility] 03-15-2024 Note Discharge Instructions Thank you for allowing [facility] to assist you with your healthcare needs. The following is importantdischarge information regarding your hospital visit. Diagnosis from Today's Visit Eye problem Subconjunctival hemorrhage What to Do Next Instructions from Your Care Team No qualifying data available. Post Acute Orders No qualifying data available. You Need to Schedule the Following Appointments Follow Up with JENNIFER SANTOS MD When Within 2-4 days Where: [address] [place] [address]- Allergies ampicillin predniSONE Medications Please ask your [...] bleeding from other parts of your body 4706-5563 [employer]. [address] [facility], [place] [address]. All rights reserved. This information is not intended as a substitute for professional medical care. Always follow yourhealthcare professional's instructions. Additional Information VACCINATE! IT SAVES LIVES! Members of the community who have not yet received the COVID-19 vaccine and would like to receive it can visit one of [facility] vaccine clinics. There are many vaccine clinic locations within the [facility]. For locations and available times, please visit www.gettheshot.coronavirus.[place].gov/. It is important to note that some COVID mobile vaccine clinics are held outdoors and may be canceled in rainy or stormy conditions. To learn more about pediatric vaccinations (ages 5-11), we invite you to visit the [facility] webpage. https://www.akronMicrolauncherss.org/pages/0380-Pxthr-Zqrostfridf-Ojdbqozuhv-Nnety-Zxo stions.htmlTo learn more about the COVID-19 vaccine, we invite you to visit the CDC website for a list of frequently asked questions. https://www.cdc.gov/coronavirus/2019-ncov/vaccines/faq.html [facility] Patient Portal Access Instructions: Stay connected with your healthcare team and access your personal medical information anytime with the [facility] Patient Portal. If you would like a full copy of your medical records please contact the [facility] Medical Records Department Thursday through Thursday between 8a.m. and 4:30p.m. Please follow the directions below to access the portal: 1.Access the email account you provided upon registration to the hospital.2.Look for an invitation email from [facility].3.Open the email and access the invitation link: Accept Invitation to [facility]4.Fill in the required ness to create your account. Sign into [email or web address] with your username and password that you [...] you will allow to register on the [facility] Patient Portal for access to your information. You can also access the [facility] Patient Portal on the [employer]. Simply click on "Health Records" under "HealthData" and then click on the [employer] logo. HOW TO SAFELY DISPOSE OF PRESCRIPTION [...] Call your local pharmacy or go to http://People Power.Advanced Brain Monitoring/8X6Vr8y to find one close to you.3.Make use of household items: Use cat litter or old coffee grounds to dispose medications if other options arenot available. Mix your drugs with these household products, seal them in an airtight container andthrow it into the garbage. Call [facility]: [phone] to be sure your drugs can be [...] been reviewed and explained to me and IGOLDEN GLORIA J understand my current condition and have read and understand these discharge instructions. I have received a written copy of the plan/instructions. If I have questions, I am aware that I should contact my doctor. Patient/Core Finisher Signature: Date/Time: Relationship to Patient: Witness Name/Signature: Date/Time: [facility]03-15-2024 History of Present illness Narrative * Julieta Oreilly APRN.LACY - 08/28/2023 4:32 PM EDT [facility] staff requests triage. Patient presents with complaints of right eye redness and blurred vision Denies trauma or injury Denies itching Denies pain Given her presentation at 1630 on a Thursday night with visual disturbances, she requires higher level of care. [facility] without appts for the day Referred to ED documented in this encounterKnox [facility] Hospital12-08-2023 History of Present illness Narrative* Rolf Burger MD - 05/22/2023 12:49 PM EST This note was created using NoteWriter. Subjective Patient presents with: ER F/U: [facility] 05/07/23- facial swelling PCP MD Stella Chisholmprema Shaw is a 73 year old female who developed facial and upper lip swelling . She went to the [facility] ER, and was treated with IV [...] month. Rolf Burger MD documented in this encounterKnox Community Hospital12-07-2023 History of Present illness Narrative* Yaakov Richter MD - 05/21/2023 1:55 PM EST [facility] Triage Note: Patient presents to the [facility] with complaint of lip swelling. She had been treated in the ERfor lip and face swelling 05/07/23 with medrol and benadryl. She had left lip swelling returned yesterday. It is improving today. No shortness of breath or wheezing. Scheduled with internal medicine for ER follow up today. documented in this encounterKnox Community Hospital11-24-2023 Hospital Discharge instructions Patient Education 05/07/2023 22:57:05 [...] products Chemicals or dyes in clothing, linen, electronic parts salesperson, hair dyes, soaps, iodine Many viruses and [...] damage the skin. Oral diphenhydramine is an qeux-ucr-rtvhiwk antihistamine sold at pharmacy and grocery stores. [...] hours, or as directed by your provider 4709-1704 [employer]. [address] [place] [address], [place] [address]. All rights reserved. This information is not intended as a substitute for professional medical care. Always follow yourhealthcare professional's instructions. Follow Up Care 05/07/2023 22:34:33 With:JENNIFER SANTOS MD Address: [address] [place] [address]- When:2-4 days [facility] 11-23-2023 Note Discharge Instructions Thank you for allowing [facility] to assist you with your healthcare needs. The following is importantdischarge information regarding your hospital visit. Diagnosis from Today's Visit Lip swelling Lip swelling What to Do Next Instructions from Your Care Team No qualifying data available. Post Acute Orders No qualifying data available. You Need to Schedule the Following Appointments Follow Up with JENNIFER SANTOS MD When Within 2-4 days Where: [address] [place] [address]- Allergies ampicillin predniSONE Medications Please ask your [...] expected to produce life threatening symptoms. However, exterminator termite use of high steroid doses can lead [...] may report side effects to FDA at 9-649-DSN-3337. What other drugs will affect methylprednisolone? Other drugs may interact with methylprednisolone, including prescription and vhlb-lvw-uuzykje medicines, vitamins, and herbal products. Tell each [...] to ensure that the information provided by [employer]. ('[employer]') is accurate, up-to-date, and complete, but no guarantee is made to that effect. Drug information contained herein may be time sensitive. [employer] information has been compiled for use by healthcare practitioners and consumers in the [place] and therefore [employer] does not warrant that uses outside of the [place] are appropriate, unless specifically indicated otherwise. [employer] drug information does not endorse drugs, diagnose patients or recommend therapy. [employer] drug information isan informational resource designed to [...] effective or appropriate for any given patient. [employer] does not assume any responsibility for any aspect of healthcare administered with the aid of information [employer] provides. The information contained herein is not intended to cover all possible uses, directions, precautions, warnings, drug interactions, allergic reactions, or adverse effects. If you have questions about the drugs you are taking, check with your doctor, nurse or pharmacist. Copyright 3940-7170 [employer]. Version: 9.01. Revision Date: 02/11/2017. Education Materials [...] products Chemicals or dyes in clothing, linen, electronic parts salesperson, hair dyes, soaps, iodine Many viruses and [...] damage the skin. Oral diphenhydramine is an svtc-bur-ackdmgf antihistamine sold at pharmacy and grocery stores. [...] hours, or as directed by your provider [id number] [employer]. [address] [place] [address], [place] [address]. All rights reserved. This information is not intended as a substitute for professional medical care. Always follow yourhealthcare professional's instructions. Additional Information VACCINATE! IT SAVES LIVES! Members of the community who have not yet received the COVID-19 vaccine and would like to receive it can visit one of [facility] vaccine clinics. There are many vaccine clinic locations within the [facility]. For locations and available times, please visit www.gettheshot.coronavirus.[place].gov/. It is important to note that some COVID mobile vaccine clinics are held outdoors and may be canceled in rainy or stormy conditions. To learn more about pediatric vaccinations (ages 5-11), we invite you to visit the [facility] webpage. https://www.[facility].org/pages/7749-Hbqcg-Swcwyysbybt-Wyvvxeluhs-Chxxk-Peg stions.htmlTo learn more about the COVID-19 vaccine, we invite you to visit the CDC website for a list of frequently asked questions. https://www.cdc.gov/coronavirus/2019-ncov/vaccines/faq.html [facility] Patient Portal Access Instructions: Stay connected with your healthcare team and access your personal medical information anytime with the [facility] Patient Portal. If you would like a full copy of your medical records please contact the [facility] Medical Records Department Thursday through Thursday between 8a.m. and 4:30p.m. Please follow the directions below to access the portal: 1.Access the email account you provided upon registration to the [facility].2.Look for an invitation email from [facility].3.Open the email and access the invitation link: Accept Invitation to [facility]4.Fill in the required ness to create your account. Sign into [email or web address] with your username and password that you [...] you will allow to register on the [facility] Patient Portal for access to your information. You can also access the [facility] Patient Portal on the [employer] inez. Simply click on "Health Records" under "HealthDaInsightpool" and then click on the [employer] logo. [...] Call your local pharmacy or go to http://bit.[employer]/5F4Ud7c to find one close to you.3.Make use of household items: Use cat litter or old coffee grounds to dispose medications if other options arenot available. Mix your drugs with these household products, seal them in an airtight container andthrow it into the garbage. Call [facility]: [phone] to be sure your drugs can be [...] been reviewed and explained to me and IGOLDEN GLORIA J understand my current condition and have read and understand these discharge instructions. I have received a written copy of the plan/instructions. If I have questions, I am aware that I should contact my doctor. Patient/Core Finisher Signature: Date/Time: Relationship to Patient: Witness Name/Signature: Date/Time: [facility]06-05-2023 History of Present illness Narrative * Kelly [...] Care Gap or Scheduling/Wellness visits Payer: Payor: [employer] MEDICARE / Plan: [employer] MEDICARE PPO / [...] 17, 2022 1:55 PM [facility] Miscellaneous Notes* Telephone Encounter - Deisy Pratt [...] you. Zofia Donnelly APRN.CNP documented in this encounterKn[facility]03-23-2023 Miscellaneous Notes* Letter - Mammography Coordinator - 09/04/2022 8:37 AM EDT September 05, 2022 PID: [id number] Ilene Shaw [address] [place] [address] Dear Ms. Shaw, We are pleased to [...] report will be [facility] as part of your permanent medical record and are available for your continuing care. Thank you for allowing us to help in meeting your health care needs. Sincerely, Dr. Garcia Interpreting Radiologist [facility] (Normal over 40) documented in this encounterKn[facility]03-07-2023 Miscellaneous Notes* Telephone Encounter - Lisa Prieto [...] for appointment on 09/03/22. documented in this encounterKn[facility]12-30-2022 Miscellaneous Notes* Telephone Encounter - Kelle Peter [...] she is going with her daughter to [place] to get a CT. She states she [...] sleep at night. Protocols used: Medication Question [id number] documented in this encounterKn[facility]12-02-2022 History of Present illness Narrative* Jennifer Santos [...] the past 2 weeks, was working in [employer]. Dr Beck wondersera note has chronological history well articulated which [...] rx. Jennifer Santos MD documented in [facility]Kn[facility]10-04-2022 Miscellaneous Notes* Telephone Encounter - Nicki Soto LPN - 03/18/2022 11:49 AM EDT Message left making patient aware on verified VM. Instructed to call office back if has any furtherissues. Nicki Soot LPN * Telephone Encounter - Arpit Beck MD - 03/18/2022 11:22 AM EDT Rx sent as requested. * Telephone Encounter - Laura Avila LPN - 03/18/2022 11:11 AM EDT Patient in to office and requested RX be sent to [facility] here in [place]. 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 Please call and advise. documented in this encounterKn[facility]10-[facility]-2022 History of Present illness Narrative* Arpit Beck [...] CAPSULE Arpit Beck MD documented in this encounterKn[facility]10-03-2022 Miscellaneous Notes* Telephone Encounter - Arpit Beck [...] day appt for evaluation. documented in this encounterKn[facility]10-01-2022 Miscellaneous Notes* Telephone Encounter - Klaudia Mas LPN - 03/15/2022 10:35 AM EDT 1.Pt calling for a refill of her new rx of xarelto 20 mg daily to the pharmacy. 2. Pt complaining of hand swelling. She can't take prednisone. Is there something else cs can take? documented in this encounterKnox [facility] Hospital09-19-2022 History of Present illness Narrative* Jennifer Santos [...] to her lips. 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 She still takes her lexapro and gets it from [place]. She can takes the xanax once at [...] & DRAINAGE PILONIDAL CYST SIMPLE MASTECTOMY, PARTIAL 3-6-15 RIGHT PERQ BREAST LOC DEVICE PLACEMT 1ST [...] months Jennifer Santos MD documented in this encounterKn[facility] Hospital08-26-2022 Miscellaneous Notes* Telephone Encounter - Torrey Dawson PA-C - 02/07/2022 11:11 AM EDT I called and discussed the ultrasound with the patient showing the superficial vein thrombosis in the greater saphenous and varicose vein. Discussed warm compresses, NSAIDs. I did have her make a follow-up appointment next week with PCP. Patient agreeable. documented in this encounterKnox [facility] Hospital08-26-2022 History of Present illness Narrative* Torrey Dawson PA-C - 02/07/2022 9:01 AM EDT This note was created using Glowblriter. Subjective Ilene Shaw is a 71 year [...] LAB Torrey Dawson PA-C documented in this encounterKnox Community Hospital08-13-2022 Instructions* Patient Instructions* Zee León APRN.CNP - 01/25/2022 9:32 AM EDT 1. Urinary [...] - BACTERIAL VAGINOSIS AMPLIFICATION documented in this encounterKnox Community Hospital08-13-2022 History of Present illness Narrative* Zee León APRN.CNP - 01/25/2022 9:18 AM EDT Subjective The history is provided by the patient. No language instructor was used. ILAN Shaw is a 71 [...] have confirmed and edited as necessary, the [facility] Review of Systems Constitutional: Negative for [...] evaluation. Zee León APRN.LACY documented in this encounterKnox [facility] Hospital07-04-2022 History of Present illness Narrative* Natasha Lester PA-C - 12/16/2021 10:19 PM EDT FOLLOW UP VISIT - ABSCESS NAME: Ilene [facility] NO.: [id number] DATE OF SERVICE: 12/13/2021 : 1950 REFERRING [...] conservatively with Bactrim after going to the [facility]. She was seen by Zofia Donnelly [...] which included preparing to see the patient, [id number] patient care, completing clinical documentation, obtaining and/or reviewing separately obtained history, performing a medically appropriate examination and counseling and educating the patient/family/caregiver. Natasha Lester PA-C documented in this encounterKnox [facility] Hospital07-01-2022 Instructions* Patient Instructions* Natasha Lester PA-C - 12/13/2021 1:49 PM EDT -Hibiclens wash daily over the next 2 weeks -May apply small amount of Bactroban -Follow up if any recurrent lumps or pain documented in this encounterKnox Community Hospital06-21-2022 History of Present illness Narrative* Kodi Muniz [...] conservatively with Bactrim after going to the [facility]. She was seen by Zofia Donnelly [...] RIGHT PERQ BREAST LOC DEVICE PLACEMT 1ST [facility] US IMAG 08/16/14 U/S right axillary marking [...] entered by the nurse and reviewed by fl Nursing Notes: Bahman Hutchison LPN 12/03/2021 1:56 [...] 10 to 12 days with my physician medical research assistant to make sure that we have [...] Kodi Muniz III, MD documented in this encounterKnox Community Hospital06-21-2022 Nurse Note* Bahman Hutchison, PHLEBOTOMY LAB ASSISTANT - 12/03/2021 1:54 PM EDT REVIEW OF [...] 2014 Bahman Hutchison LPN documented in this encounterKnox Community Hospital05-25-2022 Miscellaneous Notes* Telephone Encounter - Shellie Wise [...] consultation. Kailyn Riley RN documented in this encounterKnox Community Hospital05-16-2022 History of Present illness Narrative* Zofia Donnelly APRN.CNP - 10/28/2021 9:50 AM EDT Chief Complaint Patient presents with: Established Patient HPI: Ilene Shaw is a 71 year old female who presents here today for follow up breast cancer. Per Dr. Weller's previous note: H/o stage IC, pT1c, pN0, ER/SC positive HER-2 non-overexpressed, right breast cancer, status [...] 95% and HER-2/edmond is 1+. Stage I, [id number]. Patient started her adjuvant radiation therapy a [...] 174.9, ICD10: C50.911 (primarydiagnosis) Stage I c, ER/SC positive HER-2 non- overexpressed breast cancer. - [...] visit. Zofia Donnelly APRN.LACY documented in this encounterKnox Community Hospital03-21-2022 History of Present illness Narrative* Carley Nelson, RT(R) - 09/02/2021 10:50 AM EDT Radiology Service [...] 02, 2021 10:40 AM documented in this encounterKnox Community Hospital03-21-2022 Miscellaneous Notes* Result QuickNote - Zofia Donnelly APRN.CNP - 09/02/2021 10:50 AM EDT Please inform pt. that her mammogram is fine. Pt. needs OV in the next few weeks. Thank you. Zofia Donnelly APRN.LACY documented in this encounterKnox Community Hospital12-17-2021 Miscellaneous Notes* Telephone Encounter - Sheree Ferrer RN - 05/31/2021 11:32 AM EST Patient calls to report she continues to take Bactrim DS for lump under arm but now she is developing a yeast infection. States yeast infection started yesterday and symptoms are worsening. Patient asking for prescription to treat yeast infection be sent to [facility]. Please review and advise, Sheree Ferrer RN documented in this encounterKnox Community Hospital09-28-2015 History of Past illness Narrative* Problem Noted Date Resolved Date Breast cancer, right 03/12/2015 02/11/2022 Breast cancer 08/14/2014 02/11/2022 Lump or mass in breast 08/09/2014 9 documented as of this encounter (statuses as of 03/03/2022) [place] [id number] History of Past illness Narrative* Problem Noted Date Resolved Date Breast cancer, right 03/12/2015 02/11/2022 Breast cancer 08/14/2014 02/11/2022 Lump or mass in breast 08/09/2014 9 documented as of this encounter (statuses as of 03/15/2022) [place] [id number] History of Past illness Narrative* Problem Noted Date Resolved Date Breast cancer, right 03/12/2015 02/11/2022 Breast cancer 08/14/2014 02/11/2022 Lump or mass in breast 08/09/2014 9 documented as of this encounter (statuses as of 03/18/2022) [address]28-2015 History of Past illness Narrative* Problem Noted Date Resolved Date Breast cancer, right 03/12/2015 02/11/2022 Breast cancer 08/14/2014 02/11/2022 Lump or mass in breast 08/09/2014 9 documented as of this encounter (statuses as of 03/18/2022) [place] [address]2015 History of Past illness Narrative* Problem Noted Date Resolved Date Breast cancer, right 03/12/2015 02/11/2022 Breast cancer 08/14/2014 02/11/2022 Lump or mass in breast 08/09/2014 9 documented as of this encounter (statuses as of 05/16/2022) [address]28-2015 History of Past illness Narrative* Problem Noted Date Resolved Date Breast cancer, right 03/12/2015 02/11/2022 Breast cancer 08/14/2014 02/11/2022 Lump or mass in breast 08/09/2014 9 documented as of this encounter (statuses as of 06/18/2022) [address]28-2015 History of Past illness Narrative* Problem Noted Date Resolved Date Breast cancer, right 03/12/2015 02/11/2022 Breast cancer 08/14/2014 02/11/2022 Lump or mass in breast 08/09/2014 9 documented as of this encounter (statuses as of 09/04/2022) [address]28-2015 History of Past illness Narrative* Problem Noted Date Resolved Date Breast cancer, right 03/12/2015 02/11/2022 Breast cancer 08/14/2014 02/11/2022 Lump or mass in breast 08/09/2014 9 documented as of this encounter (statuses as of 09/06/2022) [facility] Narrative* Problem Noted Date Resolved Date Breast cancer, right 03/12/2015 02/11/2022 Breast cancer 08/14/2014 02/11/2022 Lump or mass in breast 08/09/2014 9 documented as of this encounter (statuses as of 10/09/2022) [facility] Narrative* Problem Noted Date Resolved Date Breast cancer, right 03/12/2015 02/11/2022 Breast cancer 08/14/2014 02/11/2022 Lump or mass in breast 08/09/2014 9 documented as of this encounter (statuses as of 11/17/2022) [place] [address]2015 History of Past illness Narrative* Problem Noted Date Diagnosed Date Resolved Date Breast cancer, right 03/12/2015 022 Breast cancer 08/14/2014 02/11/2022 Lump or mass in breast 08/09/201408/23 documented as of this encounter (statuses as of 01/28/2023) [place] [address]2015 History of Past illness Narrative* Problem Noted Date Diagnosed Date Resolved Date Breast cancer, right 03/12/2015 022 Breast cancer 08/14/2014 02/11/2022 Lump or mass in breast 08/09/201408/23 documented as of this encounter (statuses as of 04/19/2023) [address]28-2015 History of Past illness Narrative* Problem Noted Date Diagnosed Date Resolved Date Breast cancer, right 03/12/2015 022 Breast cancer 08/14/2014 02/11/2022 Lump or mass in breast 08/09/201408/23 documented as of this encounter (statuses as of 05/21/2023) [address]28-2015 History of Past illness Narrative* Problem Noted Date Diagnosed Date Resolved Date Breast cancer, right 03/12/2015 022 Breast cancer 08/14/2014 02/11/2022 Lump or mass in breast 08/09/201408/23 documented as of this encounter (statuses as of 05/22/2023) [address]28-2015 History of Past illness Narrative* Problem Noted Date Diagnosed Date Resolved Date Breast cancer, right 03/12/2015 022 Breast cancer 08/14/2014 02/11/2022 Lump or mass in breast 08/09/201408/23 documented as of this encounter (statuses as of 08/28/2023) [address]28-2015 History of Past illness Narrative* Problem Noted Date Diagnosed Date Resolved Date Breast cancer, right 03/12/2015 022 Breast cancer 08/14/2014 02/11/2022 Lump or mass in breast 08/09/201408/23 documented as of this encounter (statuses as of 08/31/2023) [address]28-2015 History of Past illness Narrative* Problem Noted Date Diagnosed Date Resolved Date Breast cancer, right 03/12/2015 022 Breast cancer 08/14/2014 02/11/2022 Lump or mass in breast 08/09/201408/23 documented as of this encounter (statuses as of 09/01/2023) [address]28-2015 History of Past illness Narrative* Problem Noted Date Diagnosed Date Resolved Date Breast cancer, right 03/12/2015 022 Breast cancer 08/14/2014 02/11/2022 Lump or mass in breast 08/09/201408/23 documented as of this encounter (statuses as of 09/07/2023) [address]28-2015 History of Past illness Narrative* Problem Noted Date Diagnosed Date Resolved Date Breast cancer, right 03/12/2015 022 Breast cancer 08/14/2014 02/11/2022 Lump or mass in breast 08/09/201408/23 documented as of this encounter (statuses as of 09/08/2023) [address]28-2015 History of Past illness Narrative* Problem Noted Date Diagnosed Date Resolved Date Breast cancer, right 03/12/2015 022 Breast cancer 08/14/2014 02/11/2022 Lump or mass in breast 08/09/201408/23 documented as of this encounter (statuses as of 10/01/2023) [facility] Narrative* Problem Noted Date Diagnosed Date Resolved Date Breast cancer, right 03/12/2015 022 Breast cancer 08/14/2014 02/11/2022 Lump or mass in breast 08/09/201408/23 documented as of this encounter (statuses as of 10/01/2023) [facility] Narrative* Problem Noted Date Resolved Date Lump or mass in breast 08/09/2014 9 documented as of this encounter (statuses as of 09/03/2021) [facility] Narrative* Problem Noted Date Resolved Date Lump or mass in breast 08/09/2014 9 documented as of this encounter (statuses as of 10/30/2021) [facility] Narrative* Problem Noted Date Resolved Date Lump or mass in breast 08/09/2014 9 documented as of this encounter (statuses as of 11/06/2021) [facility] Narrative* Problem Noted Date Resolved Date Lump or mass in breast 08/09/2014 9 documented as of this encounter (statuses as of 12/03/2021) [facility] Narrative* Problem Noted Date Resolved Date Lump or mass in breast 08/09/2014 9 documented as of this encounter (statuses as of 12/17/2021) [facility]arrative* Problem Noted Date Resolved Date Lump or mass in breast 08/09/2014 9 documented as of this encounter (statuses as of 01/25/2022) [facility] Narrative* Problem Noted Date Resolved Date Lump or mass in breast 08/09/2014 9 documented as of this encounter (statuses as of 01/30/2022) [facility] Narrative* Problem Noted Date Resolved Date Lump or mass in breast 08/09/2014 9 documented as of this encounter (statuses as of 02/07/2022) [facility] Narrative* Problem Noted Date Resolved Date Lump or mass in breast 08/09/2014 9 documented as of this encounter (statuses as of 02/07/2022) [facility] Author Venkat Mustafa [facility] May 27, 2023 1:39am Note Date/Time May 27, 2023 12:45am [facility] Medical Records Department [address] [place] [id number] Emergency Department Summary 05/27/23 MR#: [id number] Acct: [id number] Name: ILENE SHAW Rep #:[id number] : 1950 73 From: Venkat Mustafa [...] she states that took care of it. [facility] Medical History Adult-onset Still's disease Anxiety [...] your Primary Care Provider. Call [facility] ([phone]) or report to the closest Emergency Room. Call 911 if necessary. 05/27/23 0139 <Electronically signed by Venkat Mustafa MD> Cosigner Signature (if applicable): CC: Dr. Jennifer Santos MD ~ Signed [facility] Work Phone: Evaluation + Plan note No data available for this section [facility] Evaluation note* Diagnosis 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) Encounter for screening mammogram for high-risk patient [facility] Diagnosis 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)- Primary Cellulitis of axillary region Cellulitis and abscess of upper arm and forearm documented in this encounter [facility] note* Diagnosis Cutaneous abscess of right axilla- Primary Cellulitis and abscess of upper arm and forearm [facility]* Diagnosis Axillary abscess- Primary Cellulitis and abscess of upper arm and forearm [facility]* Diagnosis Urinary frequency- Primary Elevated blood pressure reading without diagnosis of hypertension Acute vaginitis Vaginitis and vulvovaginitis, unspecified [facility]* Diagnosis Left leg swelling- Primary Swelling of limb documented in this encounter [facility] noteNo assessment information availableWTogus [facility] Work Phone: Evaluation note* Diagnosis Anxiety- Primary Anxiety state, unspecified DVT (deep vein thrombosis) in Deep phlebothrombosis, antepartum, unspecified as to episode of care Hyperlipidemia with target low density lipoprotein (LDL) cholesterol less than 130 mg/dL documented [facility] this encounter [facility]* Diagnosis Recurrent deep vein thrombosis (DVT) of lower extremity, unspecified laterality (HCC)- Primary Allergy to antithrombotic medication documented [facility] this encounter [facility]* Diagnosis Recurrent deep vein thrombosis (DVT) of lower extremity, unspecified laterality (HCC) documented [facility] encounter [facility]* Diagnosis Recurrent deep vein thrombosis (DVT) (HCC)- Primary Pedal edema Edema Other acute sinusitis, recurrence not specified documented [facility] this encounter [facility]* Diagnosis 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)- Primary Personal history of breast cancer Personal history of malignant neoplasm of breast Encounter for screening mammogram for malignant neoplasm of breast Other screening mammogram documented [facility] encounter [facility]* Diagnosis 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) Personal history of breast cancer Personal history of malignant neoplasm of breast Encounter for screening mammogram for malignant neoplasm of breast Other screening mammogram [facility] Lip swelling- Primary Diseases of lips [facility] Diagnosis Angioedema of lips, subsequent encounter- Primary [facility] Diagnosis Blurred vision, right eye- Primary Other specified visual disturbances [facility]* Diagnosis ER+ (estrogen receptor positive status)- Primary Estrogen receptor positive status [ER+] Encounter for screening [facility] ER+ (estrogen receptor positive status) Estrogen receptor positive status [ER+] Encounter for screening mammogram for breast cancer [facility] Diagnosis Abnormal mammogram of left breast documented in this encounter [facility] note* Diagnosis Abnormal mammogram of left breast documented in this encounter [facility] note* Diagnosis Vaginal itching- Primary Pruritus of genital organs documented in this encounter [facility] note* Diagnosis Sinobronchitis- Primary Unspecified sinusitis (chronic) Acute cough documented in this encounter [facility] note* Diagnosis Acute cough documented in this encounter [facility] note* Diagnosis Encounter for routine adult [...] disorder of vagina documented in this encounter [facility] note* Diagnosis Encounter for routine adult [...] for breast cancer documented in this encounter [facility] note* Diagnosis Encounter for routine adult [...] for breast cancer [facility] Diagnosis Encounter for routine adult [...] malignant neoplasms, colon [facility] Additional Instructions Since [...] breathing or swallowing, return to the ER immediately.[facility] Work Phone: Hospital Discharge instructionsAdditional Instructions You will need to follow-up with Dr. Argueta for additional prescription of Eliquis. You also need to have your blood pressure checked since it was elevated in the emergency department.[facility] Work Phone: Reason for referral (narrative)* Outpatient Procedure (Urgent) - Closed Specialty Diagnoses / Procedures Referred By Amy cherry [facility] Diagnoses Left leg swelling Procedures US LEG VEIN DVT UNL VAS LAB DUP-SCAN XTR VEINS UNILATERAL/LIMITED STUDY Torrey Dawson, PAMichaelC [address] [place] [address] [facility] [place] [address] [place] [address] Referral ID Status Reason Start Date Expiration Date V isits Requested Visits Authorized [id number] Closed Auto-Generate d Referral 02/07/2022 02/07/2023 1 1 [facility] for referral (narrative)* Diagnostic Procedure Only (Routine) - Closed Specialty Diagnoses / Procedures Referred By Amy cherry Referred To Contact [facility] Diagnoses 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) Personal history of breast cancer Encounter for screening mammogram for malignant neoplasm of breast Procedures BARBARA SCREENING W EL SCREENING DIGITAL BREAST TOMOSYNTHESIS BI SCREENING MAMMOGRAPHY BI 2-VIEW BREAST INC Zofia Raman APRN.EKG TECH [address] [place] [address] [facility] [address] [place] [address] Referral ID Status Reason Start Date Expiration Date V isits Requested Visits Authorized [id number] Closed Auto-Generate d Referral 08/19/2022 09/17/2023 1 1 [facility] for referral (narrative)* Diagnostic Procedure Only (Routine) - Closed Specialty Diagnoses / Procedures Referred By Amy cherry Referred To Contact [facility] Diagnoses 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) Personal history of breast cancer Encounter for screening mammogram for malignant neoplasm of breast Procedures BARBARA SCREENING W EL SCREENING DIGITAL BREAST TOMOSYNTHESIS BI SCREENING MAMMOGRAPHY BI 2-VIEW BREAST INC Zofia Raman APRN.EKG TECH [address] [place] [address] [facility] [address] [place] [address] Referral ID Status Reason Start Date Expiration Date V isits Requested Visits Authorized [id number] Closed Auto-Generate d Referral 08/19/2022 09/17/2023 1 1 [facility] for referral (narrative)* Diagnostic Procedure Only (Routine) - Pending Review Specialty Diagnoses / Procedures Referred By Amy cherry Referred To Contact [facility] Diagnoses ER+ (estrogen receptor positive status) Encounter for screening mammogram for breast cancer Procedures BARBARA SCREENING W EL SCREENING DIGITAL BREAST TOMOSYNTHESIS BI SCREENING MAMMOGRAPHY BI 2-VIEW BREAST INC CAD Ashlyn Roger APRN.PLANT TENDER [address] [place] [address] [facility] [address] [place] [address] Referral ID Status Reason Start Date Expiration Date Visits Requested Visits Authorized [id number] Pending Review Auto-Generat ed Referral 09/01/2023 09/30/2024 1 1 [facility] for referral (narrative)* Diagnostic Procedure Only (Routine) - Closed Specialty Diagnoses / Procedures Referred By Amy cherry Referred To Contact [facility] Diagnoses Abnormal mammogram of left breast Procedures US BREAST LTD LEFT US BREAST UNI REAL TIME WITH IMAGE LIMITED Ashlyn Roger APRN.PLANT TENDER [address] [place] [address] [facility] [address] [place] [address] Referral ID Status Reason Start Date Expiration Date V isits Requested Visits Authorized [id number] Closed Auto-Generate d Referral 09/08/2023 10/07/2024 1 1 [facility] for referral (narrative)No reason for referral [facility] Work Phone: Reason for visit Narrative* [...] BI 2-VIEW BREAST INC CAD Zofia Donnelly APRN.EKG TECH [address] [place] [address] [facility] [address] [place] [address] Referral ID Status Reason Start Date Expiration Date V isits Requested Visits Authorized [id number] Closed Auto-Generate d Referral 08/19/2022 09/17/2023 1 1 [facility] for visit Narrative* Diagnostic Procedure Only (Routine) - Closed Specialty Diagnoses / Procedures Referred By Contac t Referred To Contact [facility] Diagnoses ER+ (estrogen receptor positive status) Encounter for screening mammogram for breast cancer Procedures BARBARA SCREENING W EL SCREENING DIGITAL BREAST TOMOSYNTHESIS BI SCREENING MAMMOGRAPHY BI 2-VIEW BREAST INC CAD Ashlyn Roger, [employer] ATTENDANT.PLANT TENDER [address] [place] [address] [facility] [address] [place] [address] Referral ID Status Reason Start Date Expiration Date V isits Requested Visits Authorized [id number] Closed Auto-Generate d Referral 09/01/2023 09/30/2024 1 1 [facility] for visit Narrative* Diagnostic Procedure Only (Routine) - Closed Specialty Diagnoses / Procedures Referred By Contac t Referred To Contact [facility] Diagnoses Abnormal mammogram of left breast Procedures US BREAST LTD LEFT US BREAST UNI REAL TIME WITH IMAGE LIMITED Ashlyn Roger, [employer]ATION ATTENDANT.PLANT TENDER [address] [place] [address] [facility] [address] [place] [address] Referral ID Status Reason Start Date Expiration Date V isits Requested Visits Authorized [id number] Closed Auto-Generate d Referral 09/08/2023 10/07/2024 1 1 [facility] for visit Narrative* Diagnostic Procedure Only (Routine) - Closed Specialty Diagnoses / Procedures [facility] Diagnoses Abnormal mammogram of left breast Procedures BARBARA DIAGNOSTIC LEFT DIAGNOSTIC MAMMOGRAPHY COMPUTER-AIDED DETCJ UNI Ashlyn Roger, [employer]ATION ATTENDANT.PLANT TENDER [address] [place] [address] [facility] [address] [place] [address] Referral ID Status Reason Start Date Expiration Date V isits Requested Visits Authorized [id number] Closed Auto-Generate d Referral 09/08/2023 10/07/2024 1 1 [facility] Diagnostic Procedure Only (Routine) - Closed Specialty Diagnoses / Procedures Referred By Amy cherry Referred To Contact [facility] Diagnoses Encounter for screening mammogram for breast cancer Procedures BARBARA SCREENING W EL SCREENING DIGITAL BREAST TOMOSYNTHESIS BI SCREENING MAMMOGRAPHY BI 2-VIEW BREAST INC CAD Older, Kelle, [employer]ATION ATTENDANT.EKG TECH [address] [place] [address] Phone: tel: fax: [facility] [address] [place] [address] Referral ID Status Reason Start Date Expiration Date V isits Requested Visits Authorized [id number] Closed Auto-Generate d Referral 09/14/2024 10/14/2025 1 1 [facility] Summary Purpose Family History No Family History Records Found No data available for this section No data available for this section No Family History Records FoundNo Family History Records FoundNo Family History Records Found Advance Directives No Advanced Directives Records Found Advance Directive Response Recorded Date/ Time Advance Directives No August 16 10:15am Living Will No February 18 022 7:31am Power of Supervisor [employer] No February 18, 2022 7:31am Advance Directive Response Recorded Date/ Time Advance Directives No August 16 10:15am Living Will No March 02, 2022 6:30pm Power of Supervisor [employer] No February 6:30pm Advance Directive Response Recorded Date/ Time Advance Directives No August 16 9:15am Living Will No May 26 023 11:53pm Power of Supervisor [employer] No May 26, 2023 11:53pm Advance Directive Response Recorded Date/ Time Advance Directives No August 16 10:15am Living Will No August 28, 2023 6:01pm Power of Supervisor [employer] No August 27 6:01pm Advance Directive Response Recorded Date/ Time Advance Directives No August 16 10:15am Advance Directive Response Recorded Date/ Time Do you have a Healthcare Power of Supervisor [employer]? No April 04, 2025 9:38am Do you have a Healthcare Power of Supervisor [employer]? No April 07, 2025 3:35am Advance Directives [...] section and content) DATE CREATED AUTHOR 11/14/2018 [facility] DATE CREATED AUTHOR AUTHOR'S ORGANIZ ATION 09/03/2023 [facility] ([place]) DATE CREATED AUTHOR AUTHOR'S ORGANIZ ATION 04/17/2025 [facility] DATE CREATED AUTHOR AUTHOR'S ORGANIZ ATION 04/28/2025 [facility] Source Comments (unrecognize d section and content) In the event this informatio n is protected by the Federal Confidentiality of Alcohol and Drug Abuse Patient Records regulations: The Federal rules restrict any use of the information to criminally investigate or prosecute any alcohol or drug abuse patient.[facility] event this information is protected by the Federal Confidentiality of Alcohol and Drug Abuse Patient Records regulations: The Federal rules restrict any use of the information to criminally investigate or prosecute any alcohol or drug abuse patient.[facility] the event this information is protected by the Federal Confidentiality of Alcohol and Drug Abuse Patient Records regulations: The Federal rules restrict any use of the information to criminally investigate or prosecute any alcohol or drug abuse patient.[facility] the event this information is protected by the Federal Confidentiality of Alcohol and Drug Abuse Patient Records regulations: The Federal rules restrict any use of the information to criminally investigate or prosecute any alcohol or drug abuse patient.[facility] the event this information is protected by the Federal Confidentiality of Alcohol and Drug Abuse Patient Records regulations: The Federal rules restrict any use of the information to criminally investigate or prosecute any alcohol or drug abuse patient.[facility] the event this information is protected by the Federal Confidentiality of Alcohol and Drug Abuse Patient Records regulations: The Federal rules restrict any use of the information to criminally investigate or prosecute any alcohol or drug abuse patient.[facility] the event this information is protected by the Federal Confidentiality of Alcohol and Drug Abuse Patient Records regulations: The Federal rules restrict any use of the information to criminally investigate or prosecute any alcohol or drug abuse patient.[facility] the event this information is protected by the Federal Confidentiality of Alcohol and Drug Abuse Patient Records regulations: The Federal rules restrict any use of the information to criminally investigate or prosecute any alcohol or drug abuse patient.[facility] the event this information is protected by the Federal Confidentiality of Alcohol and Drug Abuse Patient Records regulations: The Federal rules restrict any use of the information to criminally investigate or prosecute any alcohol or drug abuse patient.[facility] the event this information is protected by the Federal Confidentiality of Alcohol and Drug Abuse Patient Records regulations: The Federal rules restrict any use of the information to criminally investigate or prosecute any alcohol or drug abuse patient.[facility] the event this information is protected by the Federal Confidentiality of Alcohol and Drug Abuse Patient Records regulations: The Federal rules restrict any use of the information to criminally investigate or prosecute any alcohol or drug abuse patient.[facility] the event this information is protected by the Federal Confidentiality of Alcohol and Drug Abuse Patient Records regulations: The Federal rules restrict any use of the information to criminally investigate or prosecute any alcohol or drug abuse patient.[facility] the event this information is protected by the Federal Confidentiality of Alcohol and Drug Abuse Patient Records regulations: The Federal rules restrict any use of the information to criminally investigate or prosecute any alcohol or drug abuse patient.[facility] the event this information is protected by the Federal Confidentiality of Alcohol and Drug Abuse Patient Records regulations: The Federal rules restrict any use of the information to criminally investigate or prosecute any alcohol or drug abuse patient.[facility] the event this information is protected by the Federal Confidentiality of Alcohol and Drug Abuse Patient Records regulations: The Federal rules restrict any use of the information to criminally investigate or prosecute any alcohol or drug abuse patient.[facility] the event this information is protected by the Federal Confidentiality of Alcohol and Drug Abuse Patient Records regulations: The Federal rules restrict any use of the information to criminally investigate or prosecute any alcohol or drug abuse patient.[facility] the event this information is protected by the Federal Confidentiality of Alcohol and Drug Abuse Patient Records regulations: The Federal rules restrict any use of the information to criminally investigate or prosecute any alcohol or drug abuse patient.[facility] the event this information is protected by the Federal Confidentiality of Alcohol and Drug Abuse Patient Records regulations: The Federal rules restrict any use of the information to criminally investigate or prosecute any alcohol or drug abuse patient.[facility] the event this information is protected by the Federal Confidentiality of Alcohol and Drug Abuse Patient Records regulations: The Federal rules restrict any use of the information to criminally investigate or prosecute any alcohol or drug abuse patient.[facility] the event this information is protected by the Federal Confidentiality of Alcohol and Drug Abuse Patient Records regulations: The Federal rules restrict any use of the information to criminally investigate or prosecute any alcohol or drug abuse patient.[facility] the event this information is protected by the Federal Confidentiality of Alcohol and Drug Abuse Patient Records regulations: The Federal rules restrict any use of the information to criminally investigate or prosecute any alcohol or drug abuse patient.[facility] the event this information is protected by the Federal Confidentiality of Alcohol and Drug Abuse Patient Records regulations: The Federal rules restrict any use of the information to criminally investigate or prosecute any alcohol or drug abuse patient.[facility] the event this information is protected by the Federal Confidentiality of Alcohol and Drug Abuse Patient Records regulations: The Federal rules restrict any use of the information to criminally investigate or prosecute any alcohol or drug abuse patient.[facility] the event this information is protected by the Federal Confidentiality of Alcohol and Drug Abuse Patient Records regulations: The Federal rules restrict any use of the information to criminally investigate or prosecute any alcohol or drug abuse patient.[facility] the event this information is protected by the Federal Confidentiality of Alcohol and Drug Abuse Patient Records regulations: The Federal rules restrict any use of the information to criminally investigate or prosecute any alcohol or drug abuse patient.[facility] the event this information is protected by the Federal Confidentiality of Alcohol and Drug Abuse Patient Records regulations: The Federal rules restrict any use of the information to criminally investigate or prosecute any alcohol or drug abuse patient.[facility] the event this information is protected by the Federal Confidentiality of Alcohol and Drug Abuse Patient Records regulations: The Federal rules restrict any use of the information to criminally investigate or prosecute any alcohol or drug abuse patient.[facility] the event this information is protected by the Federal Confidentiality of Alcohol and Drug Abuse Patient Records regulations: The Federal rules restrict any use of the information to criminally investigate or prosecute any alcohol or drug abuse patient.[facility] the event this information is protected by the Federal Confidentiality of Alcohol and Drug Abuse Patient Records regulations: The Federal rules restrict any use of the information to criminally investigate or prosecute any alcohol or drug abuse patient.[facility] the event this information is protected by the Federal Confidentiality of Alcohol and Drug Abuse Patient Records regulations: The Federal rules restrict any use of the information to criminally investigate or prosecute any alcohol or drug abuse patient.[facility] the event this information is protected by the Federal Confidentiality of Alcohol and Drug Abuse Patient Records regulations: The Federal rules restrict any use of the information to criminally investigate or prosecute any alcohol or drug abuse patient.[facility] the event this information is protected by the Federal Confidentiality of Alcohol and Drug Abuse Patient Records regulations: The Federal rules restrict any use of the information to criminally investigate or prosecute any alcohol or drug abuse patient.[facility] the event this information is protected by the Federal Confidentiality of Alcohol and Drug Abuse Patient Records regulations: The Federal rules restrict any use of the information to criminally investigate or prosecute any alcohol or drug abuse patient.[facility] the event this information is protected by the Federal Confidentiality of Alcohol and Drug Abuse Patient Records regulations: The Federal rules restrict any use of the information to criminally investigate or prosecute any alcohol or drug abuse patient.[facility] the event this information is protected by the Federal Confidentiality of Alcohol and Drug Abuse Patient Records regulations: The Federal rules restrict any use of the information to criminally investigate or prosecute any alcohol or drug abuse patient.[facility] the event this information is protected by the Federal Confidentiality of Alcohol and Drug Abuse Patient Records regulations: The Federal rules restrict any use of the information to criminally investigate or prosecute any alcohol or drug abuse patient.[facility] the event this information is protected by the Federal Confidentiality of Alcohol and Drug Abuse Patient Records regulations: The Federal rules restrict any use of the information to criminally investigate or prosecute any alcohol or drug abuse patient.[facility] the event this information is protected by the Federal Confidentiality of Alcohol and Drug Abuse Patient Records regulations: The Federal rules restrict any use of the information to criminally investigate or prosecute any alcohol or drug abuse patient.[facility] the event this information is protected by the Federal Confidentiality of Alcohol and Drug Abuse Patient Records regulations: The Federal rules restrict any use of the information to criminally investigate or prosecute any alcohol or drug abuse patient.[facility] the event this information is protected by the Federal Confidentiality of Alcohol and Drug Abuse Patient Records regulations: The Federal rules restrict any use of the information to criminally investigate or prosecute any alcohol or drug abuse patient.[facility] the event this information is protected by the Federal Confidentiality of Alcohol and Drug Abuse Patient Records regulations: The Federal rules restrict any use of the information to criminally investigate or prosecute any alcohol or drug abuse patient.[facility] Care Teams (unrecognized sec tion and content) Armor Reconnaissance Specialist Relationship Specialty Start Date End Date Jennifer Santos MD [address] [place] [address] PCP - General Internal Medicine 04/15/21 Armor Reconnaissance Specialist Relationship Specialty Start Date End Date Jennifer Santos MD [facility] [place] [address] PCP - General Internal Medicine 04/15/21 Armor Reconnaissance Specialist Relationship Specialty Start Date End Date Jennifer Santos MD [address] [place] [address] PCP - General Internal Medicine 04/15/21 Armor Reconnaissance Specialist Relationship Specialty Start Date End Date Jennifer Santos MD [address] [facility] [address] PCP - General Internal Medicine 04/15/21 Armor Reconnaissance Specialist Relationship Specialty Start Date End Date Jennifer Santos MD [address] [place] [address] [place] [address] PCP - General Internal Medicine 04/15/21 Armor Reconnaissance Specialist Relationship Specialty Start Date End Date Jennifer Santos MD [address] [facility] [address] PCP - General Internal Medicine 04/15/21 Armor Reconnaissance Specialist Relationship Specialty Start Date End Date Jennifer Santos MD [address] [facility] [address] PCP - General Internal Medicine 04/15/21 Armor Reconnaissance Specialist Relationship Specialty Start Date End Date Jennifer Santos MD [address] [place] [address] PCP - General Internal Medicine 04/15/21 Armor Reconnaissance Specialist Relationship Specialty Start Date End Date Jennifer Santos MD [address] [facility] [address] PCP - General Internal Medicine 04/15/21 Armor Reconnaissance Specialist Relationship Specialty Start Date End Date Jennifer Santos MD [address] [place] [address] PCP - General Internal Medicine 04/15/21 Armor Reconnaissance Specialist Relationship Specialty Start Date End Date Jennifer Santos MD [address] [place] [address] PCP - General Internal Medicine 04/15/21 Armor Reconnaissance Specialist Relationship Specialty Start Date End Date Jennifer Santos MD [address] [place] [address] PCP - General Internal Medicine 04/15/21 Armor Reconnaissance Specialist Relationship Specialty Start Date End Date Jennifer Santos MD [address] [place] [address] PCP - General Internal Medicine 04/15/21 Armor Reconnaissance Specialist Relationship Specialty Start Date End Date Jennifer Santos MD [address] [place] [address] PCP - General Internal Medicine 04/15/21 Armor Reconnaissance Specialist Relationship Specialty Start Date End Date Jennifer Santos MD [address] [place] [address] PCP - General Internal Medicine 04/15/21 Armor Reconnaissance Specialist Relationship Specialty Start Date End Date Jennifer Santos MD [address] [place], [place] [id number] PCP - General Internal Medicine 04/15/21 Team [...] Active 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 [employer] Reconnaissance Specialist Relationship Specialty Start Date End Date Jennifer Santos MD [address] [place] [address] PCP - General Internal Medicine 04/15/21 Armor Reconnaissance Specialist Relationship Specialty Start Date End Date Jennifer Santos MD [address] [place] [address] PCP - General Internal Medicine 04/15/21 Armor Reconnaissance Specialist Relationship Specialty Start Date End Date Jennifer Santos MD [address] [place], [place] [id number] PCP - General Internal Medicine 04/15/21 Armor Reconnaissance Specialist Relationship Specialty Start Date End Date Jennifer Santos MD [address] [place], [place] [id number] PCP - General Internal Medicine 04/15/21 Armor Reconnaissance Specialist Relationship Specialty Start Date End Date Jennifer Santos MD [address] [place] [address] PCP - General Internal Medicine 04/15/21 Armor Reconnaissance Specialist Relationship Specialty Start Date End Date Jennifer Santos MD [address] [place] [address] PCP - General Internal Medicine 04/15/21 Armor Reconnaissance Specialist Relationship Specialty Start Date End Date Jennifer Santos MD [address] [place] [address] PCP - General Internal Medicine 04/15/21 Armor Reconnaissance Specialist Relationship Specialty Start Date End Date Jennifer Santos MD [address] [place] [address] PCP - General Internal Medicine 04/15/21 Armor Reconnaissance Specialist Relationship Specialty Start Date End Date Jennifer Santos MD [address] [place] [address] PCP - General Internal Medicine 04/15/21 Armor Reconnaissance Specialist Relationship Specialty Start Date End Date Jennifer Santos MD [address] [place] [address] PCP - General Internal Medicine 04/15/21 Armor Reconnaissance Specialist Relationship Specialty Start Date End Date Jennifer Santos MD [address] [place] [address] PCP - General Internal Medicine 04/15/21 Kelle Peter APRN.CNP [address] [place] [address] [facility] 05/22/24 Armor Reconnaissance Specialist Relationship Specialty Start Date End Date Jennifer Santos MD [address] [place], [place] [address] PCP - General Internal Medicine 04/15/21 Kelle Peter, [employer]INE [employer]ATION ATTENDANT.EKG TECH [address] [place], [place] [id number] [facility] 05/22/24 [employer] Reconnaissance Specialist Relationship Specialty Start Date End Date Jennifer Santos MD [address] [place], [place] [address] PCP - General Internal Medicine 04/15/21 Brittani, Kelle, [employer]INE SERVICE STATION ATTENDANT.EKG TECH [address] [place] [address] [facility] 05/22/24 [employer]or Reconnaissance Specialist Relationship Specialty Start Date End Date Jennifer Santos MD [address] [place], [place] [id number] PCP - General Internal Medicine 04/15/21 Brittani, Kelle, [employer]INE [employer]ICE STATION ATTENDANT.EKG TECH [address] [place], [place] [id number] [facility] 05/22/24 Team Status: Active Member [...] 03, 2025 Ki Conn PA, PA Attending physician Active Start: January 03, [...] content) Reason Comments Established 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 [facility] [employer] [facility]. provides no warranty or guarantee of the accuracy or completeness of information in this document.
[2025-04-30 19:58] VITALS: BP 152/91; PULSE 82; RESP 23; O2SAT 99
--- NOTE | 2025-04-30 20:41 | ED.RN ---
RN spoke with DR at this time about pt's facial swelling increasing and beginning to effect low lip and right side of face/neck area
[2025-04-30 21:00] VITALS: BP 187/98; PULSE 81; RESP 18; O2SAT 100
[2025-04-30] MEDS: DiphenhydrAMINE 50 MG/ML Syringe 25 MG IV (21:01)
[2025-04-30] MEDS: Famotidine 200 MG/20 ML MDV 20 MG in 0.9% Normal Saline (Pres. free 8 ML 300 MG IV (21:02)
[2025-04-30 22:00] VITALS: BP 161/99; PULSE 106; RESP 18; O2SAT 100
[2025-04-30] MEDS: Epi Pen Junior (EQUIV) 0.15 MG Syringe IM (22:50)
[2025-04-30 22:54] VITALS: BP 127/100; PULSE 102; RESP 16; O2SAT 96
--- NOTE | 2025-04-30 23:40 | ED.RN ---
Spoke to pt's daughter via phone call, updated on pt's status and plan of care. Questions/concerns answered
[2025-05-01] VITALS: BP 154/96; PULSE 78; RESP 18; O2SAT 98
[2025-05-01 00:07] VITALS: BP 154/96; PULSE 74; RESP 18; TEMP 36.6; O2SAT 98
== END 2025-05-01 00:20 | disposition home or self-care (01) ==
PROVIDERS: Emergency Provider Emergency Medicine; PCP Internal Medicine; Visit Provider Emergency Medicine
DX: T78.3XXA Angioneurotic edema, initial encounter (principal); S60.571A Other superficial bite of hand of right hand, initial encounter; S60.572A Other superficial bite of hand of left hand, initial encounter; L03.113 Cellulitis of right upper limb; L03.114 Cellulitis of left upper limb; W55.01XA Bitten by cat, initial encounter; F41.8 Other specified anxiety disorders; Z86.718 Personal history of other venous thrombosis and embolism; Z86.711 Personal history of pulmonary embolism; Z79.899 Other long term (current) drug therapy; Z79.01 Long term (current) use of anticoagulants
CPT/HCPCS: 96374; 96375; 96376; 99284; A4216

== ENCOUNTER 2025-05-08 19:25 | Emergency (ER) | payer MEDICARE, SELFPAY ==
[2025-05-08] VITALS (14 sets, daily range): BP systolic 125–162; BP diastolic 63–88; PULSE 84–90; RESP 16; TEMP 36.6–36.7; O2SAT 96–100; BMI 36.0
[2025-05-08] MEDS: Clindamycin 600 MG/50 ML BAG 100 MG IV (19:59)
[2025-05-08 20:08] LABS: Hematocrit 46.8 % (37-47); Hemoglobin 15.9 g/dL (12.0-15.0); Immature Granulocytes Count 0.060 X10^3/uL (0.0-0.0); Mean Corp Hgb Conc 34.0 g/dL (32-36); Mean Corpuscular Volume 94.4 fL (81-99); Mean Platelet Vol. 12.1 fl (6.2-12.0); NRBC Flagged by Analyzer 0 % (0-5); Platelet Count 262 K/mm3 (150-450); RBC Distribution Width CV 12.6 % (11.6-14.6); RBC Distribution Width SD 43.8 fl (35.1-43.9); Red Blood Count 4.96 M/mm3 (4.2-5.4); White Blood Count 11.7 K/mm3 (4.4-11.0)
--- OUTSIDE RECORDS SUMMARY | 2025-05-08 20:22 | XMS RPT_ITS | CCD ---
Author Organization [facility] Care Team Providers Care Correctional Supervisor Name Role Phone Álvaro CH, Jennifer Primary Care Provider Dr. Jennifer Santos Primary Care Provider Dr. Bran Alston Attending Provider Dr. Venkat Mustafa Referring Provider Jennifer Santos MD Primary Care Provider Jennifer Santos MD Primary Care Provider DR JENNIFER SANTOS MD Primary Care Physician [facility] DO Attending Pito SANTOS MD, DR JENNIFER Funk Primary Care Kimberly JIMENEZ MD, LENA Attending Pito SANTOS MD, DR JENNIFER Funk Primary Care Kimberly Santos MD, Jennifer Primary Care Provider Older SOFTWARE TOOLS ENGINEER.LACY, Kelle Unavailable Dr. Jennifer Santos MD Primary Care Provider Dr. Jennifer Santos MD Referring Provider Ki Schultz Attending Provider JENNIFER SANTOS Primary Care Unavailable JENNIFER SANTOS Primary Care Unavailable KELLE PETER Attending Unavailable JENNIFER SANTOS Primary Care Unavailable Álvaro CH, Dr. Peace Primary Care Physician Dr. Jennifer Santos MD Referring Provider Ki Schultz Attending Physician Edi CH, Dr. Valerio Attending Physician Dr. Teodoro Daley MD Emergency Department Physician Alecia CH, Dr. Sotomayor Attending Physician Edi CH, Dr. Valerio Referring Provider Moon CH, Dr. Robledo Emergency Department Phys ician Celaya DO, Dr. Pedraza Admitting Physician Katherine vailable de [facility], Dr. Pedraza Nurse Practitioner Unav ailable Thong CH, Neville Nurse Practitioner Unavailable Maru CH, Dr. Francis Nurse Practitioner Savi CH, Renée Nurse Practitioner Unavailab juno Baker DO, Dr. Guerrier Nurse Practitioner Radha CH, Dr. Siddiqi Nurse Practitioner Lavon CH, Dr. Villarreal Nurse Practitioner Kamran CH, Dr. Perea Nurse Practitioner Harvey CH, Dr. Charles Nurse Practitioner Theo HC, Dr. Betancur Nurse Practitioner Renato CH, Dr. [...] Dr. Kaye Nurse Practitioner Kimberly Blake MD, [facility] Nurse Practitioner Kimberly Courtney DO, Dr. Sotomayor Attending Physician Dawna CH, Dr. Durham Attending Physician [facility] Primary Care Unavailable Dawna Ryanashokdm Attending Unavailable [facility] Primary Care Unavailable Bran Alston Attending Unavailable Daley, Teodoro Referring Unavailable [facility] Primary Care Unavailable Duarte Crowe Consulting Unavailable Duarte Crowe Attending Unavailable Duarte Crowe Admitting Unavailable Bran Alston Consulting Unavailable Dl, Callie Zandra Attending Unavailable Benji Melchor Consulting Unavailable Rolandam, Callie Zandra Consulting Unavailable [facility] Primary Care Unavailable Neville Benito Consulting Unavailable Milo Celaya Attending Unavailable Milo Celaya Admitting Unavailable Adeli, Amir Consulting Unavailable Hinduja, Renée Consulting Unavailable Samuel, Chye Consulting Unavailable Rdaha, Neeru Consulting Unavailable Lavon, Phil Consulting Unavailable [...] Blake Consulting Unavailable Milo Celaya Consulting Unavailable [facility] Referring Unavailable [facility] Primary Care Unavailable Ki Schultz Attending Unavailable [facility] Primary Care Unavailable Teodoro Daley Attending Unavailable [facility] Primary Care Unavailable Darryn Baeza Attending Unavailable [facility] Primary Care Unavailable Neville Benito Consulting Unavailable [...] Translations: [ampicillin] Drug Allergy 6 Rash, Itching [facility] (20 sources) apixaban; Translations: [APIXABAN] Drug Allergy 2 Swelling, Anaphylaxis [facility] Work Phone: (20 sources) rivaroxaban; Translations: [RIVAROXABAN] Drug Allergy 2 Swelling [facility] Work Phone: (6 sources) predniSONE; Translations: [prednisone] Drug Allergy 3 [facility] (1 source) Ampicillin Drug Allergy 5 [facility] (1 source) predniSONE Drug Allergy 5 [facility] Medications Current Medications Medication Drug [...] Comment on above: Take 1 capsule by [facility] twice daily. 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 Jennifer Santos MD Status:ADM IN Location: [address] Assessment Plan Assessment/Plan (1) Cellulitis of [...] performed and neg except as noted above. [facility] Medical History Depression with anxiety Obesity [...] 81.7 H, Lymph % (Auto) 11.2 L, [place] % (Auto) 4.6, Eos % (Auto) 2.0, Baso % (Auto) 0.2, A bsolute Neuts (auto) 9.6 H, Absolute Lymphs (auto) 1.31, Nucleated RBC % 0, PT 16.3 H, INR 1.3, APTT 31.0, Lactic Acid 1.0 04/26/25 18:48: Urine Color Straw, Urine Clarity Clear, Urine pH 7.0, Ur Specific [place] 1.010, Urine Protein Negative, Urine Glucose (UA) [...] soft tissu (more content not included)... Normal [facility] Venous Duplex US, Unilateral on 04-27-2025 Venous Duplex US, Unilateral [facility] [address] [place] [address] Venous Duplex US, Unilateral 04/27/25 1343 MR#: [id number] Acct: [id number] Name: ILENE SHAW Rep #: [id number] : 1950 75 From: Marlo Storm MD Attending Dr: Dr. Callie Lizama MD Status: AD M IN Ordering Dr: Callie Lizama MD Date: 04/27/25 Location: [facility] [place] Sex: F C Admitted: [...] Date Dictated: 04/27/25 1343 Date Transcribed: 04/27/252238 Special Agent Fbi: Signed Normal [facility] CBC W/Diff, Automatedon 04-15 Absolute Lymph 1.31 X10 3/uL Normal 0.83-4.51 [facility] Comment on above: Performed By: #### L 300.3900, L300.4310, L100.0100, L500.4050, L503.6005 #### [facility] [address] [place], [address] Absolute Neut 9.6 X10 3/uL High 2.0-7.7 [facility] Comment on above: Performed By: #### L 300.3900, L300.4310, L100.0100, L500.4050, L503.6005 #### [facility] [address] [place], [address] Basophils/100 WBC (Bld) 0.2 % Normal 0-1 [facility] Comment on above: Performed By: #### L 300.3900, L300.4310, L100.0100, L500.4050, L503.6005 #### [facility] [address] [place], [address] Eosinophils/100 WBC (Bld) 2.0 % Normal 0-5 [facility] Comment on above: Performed By: #### L 300.3900, L300.4310, L100.0100, L500.4050, L503.6005 #### [facility] [address] [place], [address] Erythrocyte distribution width (RBC) [Ratio] 12.4 % Normal 11.6-14.6 [facility] Comment on above: Performed By: #### L 300.3900, L300.4310, L100.0100, L500.4050, L503.6005 #### [facility] [address] [place], [address] Hematocrit (Bld) [Volume fraction] 40.5 % Normal 37-47 [facility] Comment on above: Performed By: #### L 300.3900, L300.4310, L100.0100, L500.4050, L503.6005 #### [facility] [address] [place], [address] Hemoglobin (Bld) [Mass/Vol] 13.5 g/dL Normal 12.0-15.0 [facility] Comment on above: Performed By: #### L 300.3900, L300.4310, L100.0100, L500.4050, L503.6005 #### [facility] [address] [place], [address] IG% 0.300 Normal 0.0-0.9 [facility] Comment on above: Result Comment: IG% - Immature Granulocytes (promyelocytes, myelocytes and metamyelocytes) > 1% indicates that a LEFT SHIFT is Present. Performed By: #### L 300.3900, L300.4310, L100.0100, L500.4050, L503.6005 #### [facility] [address] [place], [address] Lymphocytes/100 WBC (Bld) 11.2 % Low 19-41 [facility] Comment on above: Performed By: #### L 300.3900, L300.4310, L100.0100, L500.4050, L503.6005 #### [facility] [address] [place], [address] MCH (RBC) [Entitic mass] 31.1 pg Normal 27.0-32.0 [facility] Comment on above: Performed By: #### L 300.3900, L300.4310, L100.0100, L500.4050, L503.6005 #### [facility] [address] [place], [address] MCHC (RBC) [Mass/Vol] 33.3 g/dL Normal 32-36 [facility] Comment on above: Performed By: #### L 300.3900, L300.4310, L100.0100, L500.4050, L503.6005 #### [facility] [address] [place], [address] MCV (RBC) [Entitic vol] 93.3 fL Normal 81-99 [facility] Comment on above: Performed By: #### L 300.3900, L300.4310, L100.0100, L500.4050, L503.6005 #### [facility] [address] [place], [address] Monocytes/100 WBC (Bld) 4.6 % Normal 0-10 [facility] Comment on above: Performed By: #### L 300.3900, L300.4310, L100.0100, L500.4050, L503.6005 #### [facility] [address] [place], [address] Neutrophils/100 WBC (Bld) 81.7 % High 47-70 [facility] Comment on above: Performed By: #### L 300.3900, L300.4310, L100.0100, L500.4050, L503.6005 #### [facility] [address] [place], [address] Nucleated RBC (Bld) [#/Vol] 0 10*3/uL Normal 0-5 [facility] Comment on above: Performed By: #### L 300.3900, L300.4310, L100.0100, L500.4050, L503.6005 #### [facility] [address] [place], [address] Platelet mean volume (Bld) [Entitic vol] 11.2 fL Normal 6.2-12.0 [facility] Comment on above: Performed By: #### L 300.3900, L300.4310, L100.0100, L500.4050, L503.6005 #### [facility] [address] [place], [address] Platelets (Bld) [#/Vol] 283 10*3/uL Normal 150-450 [facility] Comment on above: Performed By: #### L 300.3900, L300.4310, L100.0100, L500.4050, L503.6005 #### [facility] [address] [place], [address] RBC (Bld) [#/Vol] 4.34 10*6/uL Normal 4.2-5.4 [facility] Comment on above: Performed By: #### L 300.3900, L300.4310, L100.0100, L500.4050, L503.6005 #### [facility] [address] [place], [address] RDW SD 42.6 fl Normal 35.1-43.9 [facility] Comment on above: Performed By: #### L 300.3900, L300.4310, L100.0100, L500.4050, L503.6005 #### [facility] [address] [place], [address] WBC (Bld) [#/Vol] 11.7 10*3/uL High 4.4-11.0 [facility] Comment on above: Performed By: #### L 300.3900, L300.4310, L100.0100, L500.4050, L503.6005 #### [facility] [address] [place], [address] Comprehensive Metabolic Prof ilon 04-26-2025 Albumin [Mass/Vol] 3.7 g/dL Normal 3.4-4.8 [facility] Comment on above: Performed By: #### L 300.3900, L300.4310, L100.0100, L500.4050, L503.6005 #### [facility] [address] [place], [address] Albumin/Globulin [Mass ratio] 1.2 {ratio} Normal 0.9-2.4 [facility] Comment on above: Performed By: #### L 300.3900, L300.4310, L100.0100, L500.4050, L503.6005 #### [facility] [address] [place], [address] ALK PHOS 105 U/L High 35-104 [facility] Comment on above: Performed By: #### L 300.3900, L300.4310, L100.0100, L500.4050, L503.6005 #### [facility] [address] [place], [address] ALT [Catalytic activity/Vol] 31 U/L Normal <=34 [facility] Comment on above: Performed By: #### L 300.3900, L300.4310, L100.0100, L500.4050, L503.6005 #### [facility] [address] [place], [address] AST [Catalytic activity/Vol] 36 U/L High <=31 [facility] Comment on above: Result Comment: Hemo lysis present, Results??could be affected. ?? Performed By: #### L 300.3900, L300.4310, L100.0100, L500.4050, L503.6005 #### [facility] [address] [place], [address] Bilirubin [Mass/Vol] 0.75 mg/dL Normal 0.00-1.30 [facility] Comment on above: Performed By: #### L 300.3900, L300.4310, L100.0100, L500.4050, L503.6005 #### [facility] [address] [place], [address] BUN/CRE 13.1 RATIO Normal 10-20 [facility] Comment on above: Performed By: #### L 300.3900, L300.4310, L100.0100, L500.4050, L503.6005 #### [facility] [address] [place], [address] Calcium [Mass/Vol] 9.0 mg/dL Normal 7.6-11.0 [facility] Comment on above: Performed By: #### L 300.3900, L300.4310, L100.0100, L500.4050, L503.6005 #### [facility] [address] [place], [address] Chloride [Moles/Vol] 105 mmol/L Normal 98-108 [facility] Comment on above: Performed By: #### L 300.3900, L300.4310, L100.0100, L500.4050, L503.6005 #### [facility] [address] [place], [address] CO2 [Moles/Vol] 18.8 mmol/L Low 21.0-32.0 [facility] Comment on above: Performed By: #### L 300.3900, L300.4310, L100.0100, L500.4050, L503.6005 #### [facility] [address] [place], [address] Creatinine [Mass/Vol] 0.80 mg/dL Normal 0.70-1.20 [facility] Comment on above: Performed By: #### L 300.3900, L300.4310, L100.0100, L500.4050, L503.6005 #### [facility] [address] [place], [address] ECRCL 63.18 ml/min Normal 50-250 [facility] Comment on above: Performed By: #### L 300.3900, L300.4310, L100.0100, L500.4050, L503.6005 #### [facility] [address] [place], [address] GAP 13 Normal 5-15 [facility] Comment on above: Performed By: #### L 300.3900, L300.4310, L100.0100, L500.4050, L503.6005 #### [facility] [address] [place], [address] GFR/1.73 sq M.predicted among non-blacks MDRD (S/P/Bld) [Vol rate/Area] 77 mL/min/{1.73_m2} Normal >60 [facility] Comment on above: Result Comment: mL/m in/1.73m2 CKD-EPI Creatinine Equation (2020) Performed By: #### L 300.3900, L300.4310, L100.0100, L500.4050, L503.6005 #### [facility] [address] [place], [address] Globulin (S) [Mass/Vol] 3.2 g/dL Normal 2.2-4.2 [facility] Comment on above: Performed By: #### L 300.3900, L300.4310, L100.0100, L500.4050, L503.6005 #### [facility] [address] [place], [address] Glucose [Mass/Vol] 96 mg/dL Normal 70-99 [facility] Comment on above: Performed By: #### L 300.3900, L300.4310, L100.0100, L500.4050, L503.6005 #### [facility] [address] [place], [address] Potassium [Moles/Vol] 4.2 mmol/L Normal 3.3-5.1 [facility] Comment on above: Result Comment: Hemo lysis present, Results??could be affected. ?? Performed By: #### L 300.3900, L300.4310, L100.0100, L500.4050, L503.6005 #### [facility] [address] [place], [address] Sodium [Moles/Vol] 137 mmol/L Normal 133-145 [facility] Comment on above: Performed By: #### L 300.3900, L300.4310, L100.0100, L500.4050, L503.6005 #### [facility] [address] [place], [address] T PROT 6.8 g/dL Normal 5.9-8.4 [facility] Comment on above: Performed By: #### L 300.3900, L300.4310, L100.0100, L500.4050, L503.6005 #### [facility] [address] [place], [address] Urea nitrogen [Mass/Vol] 11 mg/dL Normal 4-19 [facility] Comment on above: Performed By: #### L 300.3900, L300.4310, L100.0100, L500.4050, L503.6005 #### [facility] [address] [place], [address] Emergency Department Summary on 04-26-2025 Emergency Department Summary [facility] Medical Records Department [address] [place] [address] Emergency Department Summary 04/26/25 MR#: [id number] Acct: [id number] Name: ILENE SHAW Rep #: [id number] : 1950 75 From: Darryn Baeza DO [...] other new injuries on the left side [facility] Medical History Depression with anxiety Obesity (BMI [...] follow commands knew that she was at [facility] year is 2024 [...] Temperature Sour (more content not included)... Normal [facility] Extremity Upper without Cont raon 04-26-2025 Extremity Upper without Contra [facility] Services [address] [place] [address] Extremity Upper without Contra MR#: [id number] Acct: [id number] Name: ILENE SHAW Rep #: [id number] : 1950 F 75 From: Jaime Wiseman MD PCP: Dr. Jennifer Santos MD Status: ADM IN Study: Extremity Upper without Contra Date of Exam: 06/26/24 Exam# [id number] Ordering Dr: Duarte Crowe DO PROCEDURE: CT [...] erosion or periosteal reaction appreciated in the [id number]. Nonspecific mild generalized subcutaneous edema of the left arm, and visualized hand/wrist, possibly with mild cellulitic changes. No drainable fluid collection/abscess or subcutaneous emphysema is seen. CT/Extremity Upper without Contra IMPRESSION: 1. No acute or aggressive osseous abnormality. 2. Nonspecific generalized subcutaneous edema, possibly with cellulitic changes. 3. No drainable fluid collection/abscess or subcutaneous emphysema visualized. Reading Location: [id number] CC: Dr. Jennifer Santos MD; Dr. Duarte Crowe DO Special Agent Fbi: Signed Normal [facility] H AND P Exam - Hospitaliston 04-26-2025 H&P Exam - Hospitalist [facility] Medical Records Department [address] [place] [address] H P Exam - Hospitalist 04/26/251947 MR#: [id number] Acct: [id number] Name: ILENE SHAW Rep #: [id number] : 1950 75 From: Duarte Crowe DO PCP: Dr. Jennifer Santos MD Status:ADM IN Location: [facility] [place] EY142-3 HPI - General General Date of Admission: 04/26/25 Date of Service: 04/26/25 Chief Complaint: Swelling and redness of the left arm and hand, water blisters on right hand and wrist HPI Narrative ILENE SHAW, is a 75 F who presents to the emergency room at [facility] for evaluation of swelling and redness of [...] been forthcoming. Patient will be admitted to [place] [address] for cellulitis of the left arm, she will be maintained on vancomycin and Ancef, she will be given Benadryl in case some of this could be an allergic reaction. I had vascular surgery see the patient informally in the ER and it was recommended that the CT be obtained. He will see the patient again tomorrow. [facility] Medical History Depression with anxiety Obesity [...] Denies abdominal (more content not included)... Normal [facility] Hand Min 3 Viewson Hand Min 3 Views [facility] [address] [place] [address] Hand Min 3 Views MR#: [id number] Acct: [id number] Name: ILENE SHAW Rep #: [id number] : 1950 F 75 From: Esmer Rhodes PCP: Dr. Jennifer Santos MD Status: REG ER Study: Hand Min 3 Views Date of Exam: 04/26/25 Exam# [id number] Ordering Dr: Darryn Baeza DO PROCEDURE: HAND MIN 3 VIEWS 04/26/2025 REASON FOR EXAM: CELLULITIS TECHNIQUE: Procedure Code: VALENTIN Modality: DX Procedure: HAND MIN 3 VIEWS Laterality: Right COMPARISON: none RAD/Hand Min 3 Views IMPRESSION: No acute fracture or dislocations. Scattered mild degenerative changes. Moderate soft tissue edema/inflammation about the right head, less compared to left hand. No radiographic foreign body. Reading Location: [facility] CC: Dr. Jennifer Santos MD; Dr. Darryn Baeza DO Special Agent Fbi: Signed Normal [facility] Hand Min 3 Views [facility] [address] [place], [place] [id number] Hand Min 3 Views MR#: [id number] Acct: [id number] Name: ILENE SHAW Rep #: [id number] : 1950 F 75 From: Esmer Rhodes PCP: Dr. Jennifer Santos MD Status: REG ER Study: Hand Min 3 Views Date of Exam: 04/26/25 Exam# [id number] Ordering Dr: Darryn Baeza DO PROCEDURE: HAND MIN 3 VIEWS 04/26/2025 REASON FOR EXAM: CELLULITIS TECHNIQUE: Procedure Code: VALENTIN Modality: DX Procedure: HAND MIN 3 VIEWS Laterality: Left COMPARISON: none RAD/Hand Min 3 Views IMPRESSION: No acute fracture or dislocations. Scattered mild degenerative changes. Extensive soft tissue edema/inflammation about the dorsal aspect of the hand. No radiographic foreign body. Reading Location: [facility] CC: Dr. Jennifer Santos MD; Dr. Darryn Baeza DO Special Agent Fbi: Signed Normal [facility] Lactic Acidon 04-26-2025 Lactate [Moles/Vol] 1.0 mmol/L Normal 0.0-2.0 [facility] Comment on above: Order Comment: Y Performed By: #### L 300.3900, L300.4310, L100.0100, L500.4050, L503.6005 #### [facility] [address] [facility] [place], [place], [id number] Partial Thromboplast Timeon 04-26-2025 aPTT Coag (Bld) [Time] 31.0 s Normal 24.1-36.2 [facility] Comment on above: Performed By: #### L 300.3900, L300.4310, L100.0100, L500.4050, L503.6005 ####[facility] [address] [place], [address] Prothrombin Time w/INRon INR Coag (PPP) [Relative time] 1.3 {INR} Normal [facility] Comment on above: Performed By: #### L 300.3900, L300.4310, L100.0100, L500.4050, L503.6005 #### [facility] [address] [place], [address] PT Coag (PPP) [Time] 16.3 s High 11.7-14.9 [facility] Comment on above: Performed By: #### L 300.3900, L300.4310, L100.0100, L500.4050, L503.6005 #### [facility] [address] [place], [address] Urinalysis, Completeon 04-26 BACTERIA 1+ /hpf Normal None Seen [facility] Comment on above: Order Comment: BRITNI CTOR TO SPECIFY Performed By: #### L 400.0001 #### [facility] [address] [place], [address] EPI,SQUAMOUS 0-5 SEEN Normal 5-10 [facility] Comment on above: Order Comment: BRITNI CTOR TO SPECIFY Performed By: #### L 400.0001 #### [facility] [address] [place], [address] WBC 0-5 SEEN Normal 0-5 [facility] Comment on above: Order Comment: BRITNI CTOR TO SPECIFY Performed By: #### L 400.0001 #### [facility] [address] [place], [address] Mucus Ql (Urine sed) 0 SEEN Normal [facility] Comment on above: Order Comment: BRITNI CTOR TO SPECIFY Performed By: #### L 400.0001 #### [facility] [address] [place], [address] RBC 0 SEEN Normal 0-5 [facility] Comment on above: Order Comment: BRITNI CTOR TO SPECIFY Performed By: #### L 400.0001 #### [facility] [address] [place], [address] Basic Metabolic Profile (BMP )on 04-24-2025 BUN/CRE 13.4 RATIO Normal 10-20 [facility] Comment on above: Performed By: #### L 500.2500, L100.0100 ####[facility] [address] [place], [address] Calcium [Mass/Vol] 8.4 mg/dL Normal 7.6-11.0 [facility] Comment on above: Performed By: #### L 500.2500, L100.0100 ####[facility] [address] [place], [address] Chloride [Moles/Vol] 106 mmol/L Normal 98-108 [facility] Comment on above: Performed By: #### L 500.2500, L100.0100 ####[facility] [address] [place], [address] CO2 [Moles/Vol] 18.7 mmol/L Low 21.0-32.0 [facility] Comment on above: Performed By: #### L 500.2500, L100.0100 ####[facility] [address] [place], [address] Creatinine [Mass/Vol] 1.00 mg/dL Normal 0.70-1.20 [facility] Comment on above: Performed By: #### L 500.2500, L100.0100 ####[facility] [address] [place], [address] ECRCL 50.66 ml/min Normal 50-250 [facility] Comment on above: Performed By: #### L 500.2500, L100.0100 ####[facility] [address] [place], [address] GAP 11 Normal 5-15 [facility] Comment on above: Performed By: #### L 500.2500, L100.0100 ####[facility] [address] [place], [address] GFR/1.73 sq M.predicted among non-blacks MDRD (S/P/Bld) [Vol rate/Area] 59 mL/min/{1.73_m2} Low >60 [facility] Comment on above: Result Comment: mL/m in/1.73m2 CKD-EPI Creatinine Equation (2020) Performed By: #### L 500.2500, L100.0100 ####[facility] [address] [place], [address] Glucose [Mass/Vol] 101 mg/dL High 70-99 [facility] Comment on above: Performed By: #### L 500.2500, L100.0100 ####[facility] [address] [place], [address] Potassium [Moles/Vol] 4.3 mmol/L Normal 3.3-5.1 [facility] Comment on above: Result Comment: Hemo lysis present, Results??could be affected. ?? Performed By: #### L 500.2500, L100.0100 ####[facility] [address] [place], [address] Sodium [Moles/Vol] 136 mmol/L Normal 133-145 [facility] Comment on above: Performed By: #### L 500.2500, L100.0100 ####[facility] [address] [place], [address] Urea nitrogen [Mass/Vol] 13 mg/dL Normal 4-19 [facility] Comment on above: Performed By: #### L 500.2500, L100.0100 ####[facility] [address] [place], [address] CBC W/Diff, Automatedon 11- 0-2024 Absolute Lymph 1.39 X10 3/uL Normal 0.83-4.51 [facility] Comment on above: Performed By: #### L 500.2500, L100.0100 ####[facility] [address] [place], [address] Absolute Neut 8.3 X10 3/uL High 2.0-7.7 [facility] Comment on above: Performed By: #### L 500.2500, L100.0100 ####[facility] [address] [place], [address] Basophils/100 WBC (Bld) 0.3 % Normal 0-1 [facility] Comment on above: Performed By: #### L 500.2500, L100.0100 ####[facility] [address] [place], [address] Eosinophils/100 WBC (Bld) 2.1 % Normal 0-5 [facility] Comment on above: Performed By: #### L 500.2500, L100.0100 ####[facility] [address] [place], [address] Erythrocyte distribution width (RBC) [Ratio] 12.5 % Normal 11.6-14.6 [facility] Comment on above: Performed By: #### L 500.2500, L100.0100 ####[facility] [address] [place], [address] Hematocrit (Bld) [Volume fraction] 40.0 % Normal 37-47 [facility] Comment on above: Performed By: #### L 500.2500, L100.0100 ####[facility] [address] [place], [address] Hemoglobin (Bld) [Mass/Vol] 13.2 g/dL Normal 12.0-15.0 [facility] Comment on above: Performed By: #### L 500.2500, L100.0100 ####[facility] [address] [place], [address] IG% 0.500 Normal 0.0-0.9 [facility] Comment on above: Result Comment: IG% - Immature Granulocytes (promyelocytes, myelocytes and metamyelocytes) > 1% indicates that a LEFT SHIFT is Present. Performed By: #### L 500.2500, L100.0100 ####[facility] [address] [place], [address] Lymphocytes/100 WBC (Bld) 13.2 % Low 19-41 [facility] Comment on above: Performed By: #### L 500.2500, L100.0100 ####[facility] [address] [place], [address] MCH (RBC) [Entitic mass] 31.4 pg Normal 27.0-32.0 [facility] Comment on above: Performed By: #### L 500.2500, L100.0100 ####[facility] [address] [place], [address] MCHC (RBC) [Mass/Vol] 33.0 g/dL Normal 32-36 [facility] Comment on above: Performed By: #### L 500.2500, L100.0100 ####[facility] [address] [place], [address] MCV (RBC) [Entitic vol] 95.0 fL Normal 81-99 [facility] Comment on above: Performed By: #### L 500.2500, L100.0100 ####[facility] [address] [place], [address] Monocytes/100 WBC (Bld) 5.9 % Normal 0-10 [facility] Comment on above: Performed By: #### L 500.2500, L100.0100 ####[facility] [address] [place], [address] Neutrophils/100 WBC (Bld) 78.0 % High 47-70 [facility] Comment on above: Performed By: #### L 500.2500, L100.0100 ####[facility] [address] [place], [address] Nucleated RBC (Bld) [#/Vol] 0 10*3/uL Normal 0-5 [facility] Comment on above: Performed By: #### L 500.2500, L100.0100 ####[facility] [address] [place], [address] Platelet mean volume (Bld) [Entitic vol] 10.9 fL Normal 6.2-12.0 [facility] Comment on above: Performed By: #### L 500.2500, L100.0100 ####[facility] [address] [place], [address] Platelets (Bld) [#/Vol] 247 10*3/uL Normal 150-450 [facility] Comment on above: Performed By: #### L 500.2500, L100.0100 ####[facility] [address] [place], [address] RBC (Bld) [#/Vol] 4.21 10*6/uL Normal 4.2-5.4 [facility] Comment on above: Performed By: #### L 500.2500, L100.0100 ####[facility] [address] [place], [address] RDW SD 43.5 fl Normal 35.1-43.9 [facility] Comment on above: Performed By: #### L 500.2500, L100.0100 ####[facility] [address] [place], [address] WBC (Bld) [#/Vol] 10.6 10*3/uL Normal 4.4-11.0 [facility] Comment on above: Performed By: #### L 500.2500, L100.0100 ####[facility] [address] [facility] [place], [address] Emergency Department Summary on 04-24-2025 Emergency Department Summary [facility] Medical Records Department [address] [facility] [place] [address] Emergency Department Summary 04/24/25 MR#: [id number] Acct: [id number] Name: ILENE SHAW Rep #: [id number] : 1950 75 From: Darryn Baeza DO [...] she is not currently on any antibiotics [facility] Medical History Depression with anxiety Obesity (BMI [...] follow commands and that she was at [facility] year is 2024 [...] andrea (more content not included)... [facility] [facility] Office Visit (INTMWS ) LISAILENE ORDAZ ([id number]) 1950 F Date Time Provider Department 04/13/25 10:40 AM KELLE PETER INTMWS During your visit today, we recorded the following information about you: Pulse Respiration Blood pressure Weight 77/minute 16/minute 130/80 88.9 kg Kelle Peter APRN.CNP 04/17/2025 8:20 AM Signed CC: Patient presents with: Recheck: [facility] ER follow up, DVT in leg HPI Ilene Shaw is a 75 year old female who presents today for follow up. Recording using Arkm[employer] software for draft documentation of the visit was discussed with the patient/authorized leasing representative; all questions welcomed and answered. Patient/authorized leasing representative agreed to proceed Ilene is a [...] Screening Discontinued DATA REVIEWED: Outside chart from [facility] reviewed. Assessment/Plan 1. Acute embolism and thrombosis of deep vein of left lower extremity (HCC) (I82.402) 2. Dizziness and giddiness (R42) - Recent DVT of left inner thigh diagnosed on ; started on Eliquis with sub (more content not included)... Normal [facility] 12 Lead EKGon 04-07-2025 12 Lead EKG [facility] Cardiovascular Services [address] [place] [address] 12 Lead EKG 04/07/25 0046 MR#: [id number] Acct: [id number] Name: ILENE SHAW Rep #: [id number] : 1950 75 From: Roselia Toney MD Attending Dr: Dr. Bran Courtney DO Status: DIS IN Ordering Dr: Venkat Mustafa MD Date: 04/07/25 Location: [facility] Sex: F C Admitted: 04/07/25 Test Reason : DYSRHYTHMIA Blood Pressure : */* mmHG Vent. Rate : 62 BPM Atrial Rate : 62 BPM P-R Int : 196 ms QRS Dur : 74 ms QT Int : 450 ms P-R-T Axes : 49 5 61 degrees QTcB Int : 456 ms Normal sinus rhythm Normal ECG Confirmed by ROSELIA TONEY ([id number]), web editor ANTONIETA GONZALES ([id number]) on 04/10/2025 6:32:12 AM Referred By: Confirmed By: ROSELIA TONEY 04/10/25 0632 Date Roselia Toney MD CC: Dr. Venkat Mustafa MD; Dr. Jennifer Santos MD; Dr. Bran Courtney DO Signed Normal [facility] Absolute lymphocyte countOrd ered By: Venkat Mustafa on 04-07-2025 Lymphocytes Auto (Unsp spec) [#/Vol] 2.13 10*3/uL 0.83-4.51 [facility] Absolute neutrophil countOrd ered By: Venkat Mustafa on 04-07-2025 Neutrophils (Bld) [#/Vol] 5.1 10*3/uL 2.0-7.7 [facility] Alcohol, Blood (Medical)-Ser umon 04-07-2025 SERUM ETOH < 10.1 Normal <=10.0 [facility] Comment on above: Result Comment: This test is for medical purposes only. The legal definition of intoxication varies according to local law. Performed By: #### L 501.9985, L501.9567, L505.5000, L501.9100 ####[facility] [address] [place], [place], [address] Amphetamine detection with 1 000 ng/mL as cutoffOrdered By: Milo Mcnally on 04-07-2025 Amphetamines Screen method >1000 ng/mL Ql (U) Negative < 200 ng/mL [facility] Anion gap in Serum or Plasma Ordered By: Venkat Mustafa on 04-07-2025 Anion gap [Moles/Vol] 10 mmol/L 5- [facility] Automated lymphocyte count a s percentage of total leukocytesOrdered By: Venkat Mustafa on 04-07-2025 Lymphocytes/100 WBC Auto (Unsp spec) 25.2 % - [facility] BUN/creatinine ratioOrdered By: Venkat Mustafa on 04-07-2025 Urea nitrogen/Creatinine [Mass ratio] 10.1 mg/mg 10- [facility] Basophil percentageOrdered B y: Venkat Mustafa on 04-07-2025 Basophils/100 WBC (Bld) 0.6 % 0-1 [facility] Bilirubin Test strip Ql (U)O rdered By: Venkat Mustafa on 04-07-2025 Bilirubin Ql (U) Negative Negative [facility] Bilirubin, totalOrdered By: Venkat Mustafa on 04-07-2025 Bilirubin [Mass/Vol] 0.31 mg/dL 0.00-1.30 [facility] Brain without Contraston Brain without Contrast [facility] Imaging Services [address] [place], [place] [address] Brain without Contrast MR#: [id number] Acct: [id number] Name: ILENE SHAW Rep #: [id number] : 1950 F 75 From: Kal Andrea MD PCP: Dr. Jennifer Santos MD Status: ADM IN Study: Brain without Contrast Date of Exam: 04/07/25 Exam# [id number] Ordering Dr: Milo Celaya DO PROCEDURE: BRAIN [...] IMPRESSION: No acute brain abnormalities. Reading Location: [facility] CC: Dr. Jennifer Santos MD; Dr. Milo Celaya DO Special Agent Fbi: Signed Normal [facility] Brain/Head without Contrasto n 04-07-2025 Brain/Head without Contrast [facility] Imaging Services [address] [place] [address] [id number] Brain/Head without Contrast MR#: [id number] Acct: [id number] Name: ILENE SHAW Rep #: [id number] : 1950 F 75 From: Carter gil MD PCP: Dr. Jennifer Santos MD Status: REG ER Study: Brain/Head without Contrast Date of Exam: 03/16 10/07 Exam# [id number] Ordering Dr: Venkat Mustafa MD PROCEDURE: BRAIN/HEAD [...] cerebral mild microvascular ischemic changes. [facility] CC: Dr. Venkat Mustafa MD; Dr. Jennifer Santos MD Special Agent Fbi: Signed Normal [facility] CBC W/Diff, Automatedon 10- Absolute Lymph 2.13 X10 3/uL Normal 0.83-4.51 [facility] Comment on above: Performed By: #### L 500.4050, L100.0100 ####[facility] [address] [place], [address] Absolute Neut 5.1 X10 3/uL Normal 2.0-7.7 [facility] Comment on above: Performed By: #### L 500.4050, L100.0100 ####[facility] [address] [place], [address] Basophils/100 WBC (Bld) 0.6 % Normal 0-1 [facility] Comment on above: Performed By: #### L 500.4050, L100.0100 ####[facility] [address] [place], [address] Eosinophils/100 WBC (Bld) 7.8 % High 0-5 [facility] Comment on above: Performed By: #### L 500.4050, L100.0100 ####[facility] [address] [place], [address] Erythrocyte distribution width (RBC) [Ratio] 13.1 % Normal 11.6-14.6 [facility] Comment on above: Performed By: #### L 500.4050, L100.0100 ####[facility] [address] [place], [address] Hematocrit (Bld) [Volume fraction] 40.6 % Normal 37-47 [facility] Comment on above: Performed By: #### L 500.4050, L100.0100 ####[facility] [address] [place], [address] Hemoglobin (Bld) [Mass/Vol] 13.8 g/dL Normal 12.0-15.0 [facility] Comment on above: Performed By: #### L 500.4050, L100.0100 ####[facility] [address] [place], [address] IG% 0.200 Normal 0.0-0.9 [facility] Comment on above: Result Comment: IG% - Immature Granulocytes (promyelocytes, myelocytes and metamyelocytes) > 1% indicates that a LEFT SHIFT is Present. Performed By: #### L 500.4050, L100.0100 ####[facility] [address] [place], [address] Lymphocytes/100 WBC (Bld) 25.2 % Normal 19-41 [facility] Comment on above: Performed By: #### L 500.4050, L100.0100 ####[facility] [address] [place], [address] MCH (RBC) [Entitic mass] 31.1 pg Normal 27.0-32.0 [facility] Comment on above: Performed By: #### L 500.4050, L100.0100 ####[facility] [address] [place], [address] MCHC (RBC) [Mass/Vol] 34.0 g/dL Normal 32-36 [facility] Comment on above: Performed By: #### L 500.4050, L100.0100 ####[facility] [address] [place], [address] MCV (RBC) [Entitic vol] 91.4 fL Normal 81-99 [facility] Comment on above: Performed By: #### L 500.4050, L100.0100 ####[facility] [address] [place], [address] Monocytes/100 WBC (Bld) 6.5 % Normal 0-10 [facility] Comment on above: Performed By: #### L 500.4050, L100.0100 ####[facility] [address] [place], [address] Neutrophils/100 WBC (Bld) 59.7 % Normal 47-70 [facility] Comment on above: Performed By: #### L 500.4050, L100.0100 ####[facility] [address] [place], [address] Nucleated RBC (Bld) [#/Vol] 0 10*3/uL Normal 0-5 [facility] Comment on above: Performed By: #### L 500.4050, L100.0100 ####[facility] [address] [place], [address] Platelet mean volume (Bld) [Entitic vol] 11.9 fL Normal 6.2-12.0 [facility] Comment on above: Performed By: #### L 500.4050, L100.0100 ####[facility] [address] [place], [address] Platelets (Bld) [#/Vol] 273 10*3/uL Normal 150-450 [facility] Comment on above: Performed By: #### L 500.4050, L100.0100 ####[facility] [address] [place], [address] RBC (Bld) [#/Vol] 4.44 10*6/uL Normal 4.2-5.4 [facility] Comment on above: Performed By: #### L 500.4050, L100.0100 ####[facility] [address] [place], [address] RDW SD 44.1 fl High 35.1-43.9 [facility] Comment on above: Performed By: #### L 500.4050, L100.0100 ####[facility] [address] [place], [address] WBC (Bld) [#/Vol] 8.5 10*3/uL Normal 4.4-11.0 [facility] Comment on above: Performed By: #### L 500.4050, L100.0100 ####[facility] [address] [place], [address] CTA Head AND Neck W/ Contras ton 04-07-2025 CTA Head AND Neck W/ Contrast [facility] Imaging Services [address] [place] [address] CTA Head AND Neck W/ Contrast MR#: [id number] Acct: [id number] Name: ILENE SHAW Rep #: [id number] : 1950 F 75 From: Carter gil MD PCP: Dr. Jennifer Santos MD Status: [facility] ER Study: CTA Head AND Neck W/ Contrast Date of Exam: Exam# [id number] Ordering Dr: Venkat Mustafa MD PROCEDURE: CTA [...] dilatation or dissecting intimal flaps. Reading Location: [place] [address] CC: Dr. Venkat Mustafa MD; Dr. Jennifer Santos MD Special Agent Fbi: Signed Normal [facility] Calculated very low density lipoprotein (VLDL) cholesterol measurementOrdered By: Milo Mcnally on 04-07-2025 Calculated very low density lipoprotein (VLDL) cholesterol measurement 25 mg/dL 5-40 [facility] Carbon dioxide, total [Moles /volume] in Central venous bloodOrdered By: Venkat Mustafa on 04-07-2025 CO2 [Moles/Vol] 26.3 mmol/L 21.0-32.0 [facility] Carotid Duplex Ultrasoundon 04-07-[address] [facility] Cardi[facility] Services [address] [place] [address] Carotid Duplex Ultrasound 04/07/25 1032 MR#: [id number] Acct: [id number] Name: ILENE SHAW Rep #: [id number] : 1950 75 From: Marlo Storm MD Attending Dr: Dr. Bran Courtney DO Status: DIS IN Ordering Dr: Milo Celaya DO Date: 04/07/25 Location: [facility] Sex: F C Admitted: 04/07/25 Reason [...] the left vertebral artery. Procedure Carotid Duplex 15198. This is a Carotid Duplex examination using [...] Date Dictated: 04/07/25 1032 Date Transcribed: 04/08/251610 Special Agent Fbi: Signed Normal [facility] Chloride assayOrdered By: Kenan Mustafa on 04-07-2025 Chloride [Moles/Vol] 105 mmol/L 98-108 [facility] Comprehensive Metabolic Prof ilon 04-07-2025 Albumin [Mass/Vol] 3.9 g/dL Normal 3.4-4.8 [facility] Comment on above: Performed By: #### L 500.4050, L100.0100 ####[facility] [address] [place], [address] Albumin/Globulin [Mass ratio] 1.3 {ratio} Normal 0.9-2.4 [facility] Comment on above: Performed By: #### L 500.4050, L100.0100 ####[facility] [address] [place], [address] ALK PHOS 88 U/L Normal 35-104 [facility] Comment on above: Performed By: #### L 500.4050, L100.0100 ####[facility] [address] [place], [address] ALT [Catalytic activity/Vol] 9 U/L Normal <=34 [facility] Comment on above: Performed By: #### L 500.4050, L100.0100 ####[facility] [address] [place], [address] AST [Catalytic activity/Vol] 26 U/L Normal <=31 [facility] Comment on above: Performed By: #### L 500.4050, L100.0100 ####[facility] [address] [place], [address] Bilirubin [Mass/Vol] 0.31 mg/dL Normal 0.00-1.30 [facility] Comment on above: Performed By: #### L 500.4050, L100.0100 ####[facility] [address] [place], [address] BUN/CRE 10.1 RATIO Normal 10-20 [facility] Comment on above: Performed By: #### L 500.4050, L100.0100 ####[facility] [address] [place], [address] Calcium [Mass/Vol] 8.8 mg/dL Normal 7.6-11.0 [facility] Comment on above: Performed By: #### L 500.4050, L100.0100 ####[facility] [address] [place], [address] Chloride [Moles/Vol] 105 mmol/L Normal 98-108 [facility] Comment on above: Performed By: #### L 500.4050, L100.0100 ####[facility] [address] [place], [address] CO2 [Moles/Vol] 26.3 mmol/L Normal 21.0-32.0 [facility] Comment on above: Performed By: #### L 500.4050, L100.0100 ####[facility] [address] [place], [address] Creatinine [Mass/Vol] 0.86 mg/dL Normal 0.70-1.20 [facility] Comment on above: Performed By: #### L 500.4050, L100.0100 ####[facility] [address] [place], [address] ECRCL 57.91 ml/min Normal 50-250 [facility] Comment on above: Performed By: #### L 500.4050, L100.0100 ####[facility] [address] [place], [address] GAP 10 Normal 5-15 [facility] Comment on above: Performed By: #### L 500.4050, L100.0100 ####[facility] [address] [place], [address] GFR/1.73 sq M.predicted among non-blacks MDRD (S/P/Bld) [Vol rate/Area] 70 mL/min/{1.73_m2} Normal >60 [facility] Comment on above: Result Comment: mL/m in/1.73m2 CKD-EPI Creatinine Equation (2020) Performed By: #### L 500.4050, L100.0100 ####[facility] [address] [place], [address] Globulin (S) [Mass/Vol] 3.1 g/dL Normal 2.2-4.2 [facility] Comment on above: Performed By: #### L 500.4050, L100.0100 ####[facility] [address] [place], [address] Glucose [Mass/Vol] 124 mg/dL High 70-99 [facility] Comment on above: Performed By: #### L 500.4050, L100.0100 ####[facility] [address] [place], [address] Potassium [Moles/Vol] 3.8 mmol/L Normal 3.3-5.1 [facility] Comment on above: Performed By: #### L 500.4050, L100.0100 ####[facility] [address] [place], [address] Sodium [Moles/Vol] 142 mmol/L Normal 133-145 [facility] Comment on above: Performed By: #### L 500.4050, L100.0100 ####[facility] [address] [place], [address] T PROT 6.9 g/dL Normal 5.9-8.4 [facility] Comment on above: Performed By: #### L 500.4050, L100.0100 ####[facility] [address] [place], [address] Urea nitrogen [Mass/Vol] 9 mg/dL Normal 4-19 [facility] Comment on above: Performed By: #### L 500.4050, L100.0100 ####[facility] [address] [place], [address] Echo Complete W/ Contraston 04-07-2025 Echo Complete W/ Contrast [facility] Cardiovascular Services [address] [place] [address] Echo Complete W/ Contrast 04/07/25 0950 MR#: [id number] Acct: [id number] Name: ILENE SHAW Rep #: [id number] : 1950 75 From: Roselia Toney MD [...] DO Date Dictated: 04/07/25949 Date Transcribed: 04/07/251616 Special Agent Fbi: Signed Normal [facility] Emergency Department Summary on 04-07-2025 Emergency Department Summary [facility] Medical Records Department [address] [place] [address] Emergency Department Summary 04/07/25 MR#: [id number] Acct: [id number] Name: ILENE SHAW Rep #: [id number] : 1950 75 From: Venkat Mustafa MD [...] onset of dizziness and confusion today around 1284-9422 after taking Eliquis. However, patient keeps saying [...] well as 81 mg aspirin at night. [facility] Medical History Vaginal candidiasis Acute bronchitis, unspecified [...] PERRL a (more content not included)... Normal [facility] Eosinophil percentageOrdered By: Venkat Mustafa on 04-07-2025 Eosinophils/100 WBC (Bld) 7.8 % High 0-5 [facility] Erythrocyte distribution wid th ratioOrdered By: Venkat Mustafa on 04-07-2025 Erythrocyte distribution width (RBC) [Ratio] 13.1 % 11.6-14.6 [facility] Erythrocyte distribution wid th standard deviationOrdered By: Venkat Mustafa on 04-07-2025 Erythrocyte distribution width (RBC) [Ratio] 44.1 fl High 35.1-43.9 [facility] Free T3on 04-07-2025 Free T3 [Mass/Vol] 3.1 pg/mL Normal 2.18-3.98 [facility] Comment on above: Performed By: #### L 506.0400, L501.39264 ####[facility] [address] [place], [address] Free P4Aiedhvg By: Milo lopes on 04-07-2025 Free T3 [Mass/Vol] 3.1 pg/mL 2.18-3.98 [facility] Glomerular filtration rate ( GFR) estimation/1.73 sq m using serum, plasma, or whole bOrdered By: Venkat Mustafa on 04-07-2025 GFR/1.73 sq M.predicted among non-blacks MDRD (S/P/Bld) [Vol rate/Area] 70 mL/min/{1.73_m2} >60 [facility] Comment on above: mL/min/1.73m2 CKD-EP I Creatinine Equation (2020) H AND P Exam - Hospitaliston 04-07-2025 H&P Exam - Hospitalist [facility] Medical Records Department [address] [facility] [place] [address] H P Exam - Hospitalist 04/07/25 0249 MR#: [id number] Acct: [id number] Name: ILENE SHAW Rep #: [id number] : 1950 75 From: Milo Celaya DO PCP: Dr. Jennifer Santos MD Status:ADM IN Location: [place] [id number] - General General Date of Admission: 04/07/25 [...] renal calculi and OA who presents to [facility] ER complaining of dizziness and confusion. [...] .Route 04/04 Unknown Rx a dose pack ([facility] DVT-PE Treat .COMPLEX #74 tabs 30D Start) [...] or jaundice. (more content not included)... Normal [facility] Hematocrit Auto (Bld) [Volum e fraction]Ordered By: Venkat Mustafa on 04-07-2025 Hematocrit (Bld) [Volume fraction] 40.6 % 37-47 [facility] Hemoglobin A1con 04-07-2025 HbA1c (Bld) [Mass fraction] 5.3 % Normal <=5.6 [facility] Comment on above: Result Comment: Norm al < 5.7 % Prediabetic 5.7 - 6.4 % Diabetic >or= 6.5 % Please note range changes. Performed By: #### L 501.9985, L501.9520, L505.5000, L501.9100 ####[facility] [address] [place], [address] Hemoglobin A1c percentageOrd ered By: Milo Mcnally on 04-07-2025 HbA1c (Bld) [Mass fraction] 5.3 % <5.7 [facility] Comment on above: Normal < 5.7 % Predi abetic 5.7 - 6.4 % Diabetic >or= 6.5 % Please note range changes. Hemoglobin measurementOrdere d By: Venkat Mustafa on 04-07-2025 Hemoglobin (Bld) [Mass/Vol] 13.8 g/dL 12.0-15.0 [facility] Immature granulocytes/100 WB C Auto (Bld)Ordered By: Venkat Mustafa on 04-07-2025 Immature granulocytes/100 WBC (Bld) 0.200 % 0.0-0.9 [facility] Comment on above: IG% - Immature Granu locytes (promyelocytes, myelocytes and metamyelocytes) > 1% indicates that a LEFT SHIFT is Present. Ketones Test strip Ql (U)Ord ered By: Venkat Mustafa on 04-07-2025 Ketones Ql (U) Negative Negative [facility] LDL calc ser/plasOrdered By: Milo Mcnally on 04-07-2025 Cholesterol in LDL [Mass/Vol] 134 mg/dL [facility] Comment on above: Salaysmuzu=635-787 m g/dL & Higher Ukie=406 mg/dL or greaterSampson Equation 2020 for LDL-C Laboratory - Chemistry and C hemistry - challengeOrdered By: Venkat Mustafa on 04-07-2025 AST [Catalytic activity/Vol] 26 U/L <32 [facility] Lipid Profileon 04-07-2025 CHOL:HDL 4.[address] [facility] Comment on above: Order Comment: Comme nts: NPO at [place] prior to lipid panel Performed By: #### L 500.4100 ####[facility] [address] [place], [address] Cholesterol [Mass/Vol] 197 mg/dL Normal <=200 [facility] Comment on above: Order Comment: Comme nts: NPO at [place] prior to lipid panel Result Comment: Chol esterol level, Desirable <200 mg/dL Borderline high cholesterol 200-239 mg/dL High cholesterol >=240 mg/dL Recommendations of the NCEP Adult Treatment Panel for the following risk-cutoff thresholds for the [place] population. Performed By: #### L 500.4100 ####[facility] [address] [place], [address] Cholesterol in HDL [Mass/Vol] 40 mg/dL Normal [facility] Comment on above: Order Comment: Comme nts: NPO at [place] prior to lipid panel Result Comment: Maryuri onal Cholesterol Education Program (NCEP) guidelines: <40 mg/dL: Low HDL-cholesterol (major risk factor for CHD) >= 60 mg/dL: High HDL-cholesterol (negative risk factor for CHD) HDL-cholesterol is affected by a number of factors, e.g. smoking, exercise, hormones, sex and age. Performed By: #### L 500.4100 ####[facility] [address] [place], [address] Cholesterol in LDL [Mass/Vol] 134 mg/dL Normal [facility] Comment on above: Order Comment: Comme nts: NPO at [place] prior to lipid panel Result Comment: Bord rokjcq=575-798 mg/dL Higher Yxca=499 mg/dL or greater Rivas Equation 2020 for LDL-C Performed By: #### L 500.4100 ####[facility] [address] [place], [place], [id number] Cholesterol in VLDL [Mass/Vol] 25 mg/dL Normal 5-40 [facility] Comment on above: Order Comment: Comme nts: NPO at [place] prior to lipid panel Performed By: #### L 500.4100 ####[facility] [address] [place], [place], [id number] Triglyceride [Mass/Vol] 124 mg/dL Normal [facility] Comment on above: Order Comment: Comme nts: NPO at [place] prior to lipid panel Result Comment: The drugs N-Acetylcysteine and Metamizole may falsely depress this assay. Normal range: <150 mg/dL Borderline High: 150-199 mg/dL High: 200-499 mg/dL Very High: >500 mg/dL Performed By: #### L 500.4100 ####[facility] [address] [facility] [place], [place], [id number] MCV (mean corpuscular volume ) determinationOrdered By: Venkat Mustafa on 04-07-2025 MCV (RBC) [Entitic vol] 91.4 fL 81-99 [facility] MR/CON.PCM.NEon 04-07-2025 MR/CON.PCM.NE [facility] Medical Records Department [address] [place] [address] Consultation - Neurology 04/07/25 1629 MR#: [id number] Acct: [id number] Name: ILENE SHAW Rep #: [id number] : [id number] 75 From: Alen Gray MD PCP: Dr. Jennifer Santos MD Status:ADM IN Location: [place] [id number] Assessment and Plan: Neuro Assessment/Plan ILENE SHAW [...] appropriate treatment and workup. Alen Gray MD Marine Operations Coordinator, [facility] Teleneurology HPI Consult Data Date of Consult: [...] Position Eugenio (more content not included)... Normal [facility] Mean corpuscular hemoglobin (MCH) determinationOrdered By: Venkat Mustafa on 04-07-2025 MCH (RBC) [Entitic mass] 31.1 pg 27.0-32.0 [facility] Mean corpuscular hemoglobin concentration (MCHC) determinationOrdered By: Venkat Mustafa on 04-07-2025 MCHC (RBC) [Mass/Vol] 34.0 g/dL 32-36 [facility] Mean platelet volume determi nationOrdered By: Venkat Mustafa on 04-07-2025 Platelet mean volume (Bld) [Entitic vol] 11.9 fL 6.2-12.0 [facility] Microscopic analysis of urin e for red blood cells (RBC)Ordered By: Venkat Mustafa on 04-07-2025 Microscopic analysis of urine for red blood cells (RBC) 0 SEEN /hpf 0-5 [facility] Monocyte percentageOrdered B y: Venkat Mustafa on 04-07-2025 Monocytes/100 WBC (Bld) 6.5 % 0-10 [facility] Mucus LM Ql (Urine sed)Order ed By: Venkat Mustafa on 04-07-2025 Mucus Ql (Urine sed) 0 SEEN /hpf [facility] Neutrophil percentageOrdered By: Venkat Mustafa on 04-07-2025 Neutrophils/100 WBC (Bld) 59.7 % 47-70 [facility] Nitrite Test strip Ql (U)Ord ered By: Venkat Mustafa on 04-07-2025 Nitrite Ql (U) Negative Negative [facility] No Panel InformationOrdered By: Milo Mcnally on 04-07-2025 Urine Buprenorphine Qualitative Negative < 200 ng/mL [facility] Urine Oxycodone Screen Negative < 100 ng/mL [facility] [place] Nucleated red blood cell per centageOrdered By: Venkat Mustafa on 04-07-2025 Nucleated RBC/100 WBC (Bld) [Ratio] 0 % 0-5 [facility] Platelet countOrdered By: Kenan Mustafa on 04-07-2025 Platelets (Bld) [#/Vol] 273 10*3/uL 150-450 [facility] Potassium measurement (mass/ volume)Ordered By: Venkat Mustafa on 04-07-2025 Potassium (Unsp spec) [Mass/Vol] 3.8 mmol/L 3.3-5.1 [facility] Protein Test strip Ql (U)Ord ered By: Venkat Mustafa on 04-07-2025 Protein Ql (U) Negative Negative [facility] Quantitative urine opiates m easurementOrdered By: Milo Mcnally on 04-07-2025 Opiates Ql (U) Negative < 300 ng/mL [facility] RBC Auto (Bld) [#/Vol]Ordere d By: Venkat Mustafa on 04-07-2025 RBC (Bld) [#/Vol] 4.44 10*6/uL 4.2-5.4 [facility] Screening total cholesterol/ high density lipoprotein (HDL) cholesterol ratioOrdered By: Milo Mcnally on 04-07-2025 Cholesterol.total/Chol esterol in HDL [Mass ratio] 4.88 {ratio} [facility] Screening urine fentanyl leonid surementOrdered By: Milo Mcnally on 04-07-2025 fentaNYL Screen Ql (U) Negative <5 ng/mL [facility] Comment on above: CONFIRMATORY TESTING FOR ALL [...] on 04-07-2025 Creatinine [Mass/Vol] 0.86 mg/dL 0.70-1.20 [facility] Serum globulin measurementOr dered By: Venkat Mustafa on 04-07-2025 Globulin (S) [Mass/Vol] 3.1 g/dL 2.2-4.2 [facility] Serum glucose measurement (m ass/volume)Ordered By: Venkat Mustafa on 04-07-2025 Glucose [Mass/Vol] 124 mg/dL High 70-99 [facility] Serum or plasma alanine william otransferase (ALT) measurementOrdered By: Venkat Mustafa on 04-07-2025 ALT [Catalytic activity/Vol] 9 U/L <35 [facility] Serum or plasma albumin iwona urement (mass/volume)Ordered By: Venkat Mustafa on 04-07-2025 Albumin [Mass/Vol] 3.9 g/dL 3.4-4.8 [facility] Serum or plasma albumin/glob ulin mass ratioOrdered By: Venkat Mustafa on 04-07-2025 Albumin/Globulin [Mass ratio] 1.3 {ratio} 0.9-2.4 [facility] Serum or plasma alkaline alma sphatase measurementOrdered By: Venkat Mustafa on 04-07-2025 ALP [Catalytic activity/Vol] 88 U/L 35-104 [facility] Serum or plasma calcium iwona urement (mass/volume)Ordered By: Venkat Mustafa on 04-07-2025 Calcium [Mass/Vol] 8.8 mg/dL 7.6-11.0 [facility] Serum or plasma cholesterol in HDL measurement (mass/volume)Ordered By: Milo Mcnally on 04-07-2025 Cholesterol in HDL [Mass/Vol] 40 mg/dL >40 [facility] Comment on above: National Cholesterol Education Program (NCEP) guidelines:<40 mg/dL: Low HDL-cholesterol (major risk factor for CHD)>= 60 mg/dL: High HDL-cholesterol (negative risk factor for CHD)HDL-cholesterol is affected by a number of factors, e.g. smoking, exercise, hormones, sex and age. Serum or plasma cholesterol measurement (mass/volume)Ordered By: Milo Mcnally on 04-07-2025 Cholesterol [Mass/Vol] 197 mg/dL <201 [facility] Comment on above: Cholesterol level, D esirable <200 mg/dLBorderline high cholesterol 200-239 mg/dLHigh cholesterol >=240 mg/dLRecommendations of the NCEP Adult Treatment Panel for the following risk-cutoff thresholds for the [place] population. Serum or plasma ethanol iwona urement (mass/volume)Ordered By: Milo Mcnally on 04-07-2025 Ethanol [Mass/Vol] mg/dL <10.1 [facility] Comment on above: This test is for med ical purposes only. The legal definition of intoxication varies according to local law. Serum or plasma urea nitroge n measurement (mass/volume)Ordered By: Venkat Mustafa on 04-07-2025 Urea nitrogen [Mass/Vol] 9 mg/dL 4-19 [facility] Sodium levelOrdered By: Andrew Mustafa on 04-07-2025 Sodium [Moles/Vol] 142 mmol/L 133-145 [facility] Squamous epithelial cells de tection in urine sediment by light microscopyOrdered By: Venkat Mustafa on 04-07-2025 Epithelial cells.squamous LM Ql (Urine sed) 0-5 SEEN /hpf 5-10 [facility] T4 Free Directon 04-07-2025 T4 FREE DIRECT 0.80 ng/dL Normal 0.76-1.46 [facility] Comment on above: Performed By: #### L 506.0400, L501.24110 ####[facility] [address] [place], [place], [id number] T4 freeOrdered By: Milo lopes on 04-07-2025 Free T4 [Mass/Vol] 0.80 ng/dL 0.76-1.46 [facility] TSH DL <= 0.005 mIU/L QnOrde red By: Milo Mcnally on 04-07-2025 TSH Qn 8.080 uIU/mL High 0.300-4.200 [facility] Thyroid Stim Hormone (TSH)on 04-07-2025 TSH 8.080 uIU/mL High 0.300-4.200 [facility] Comment on above: Performed By: #### L 501.9985, L501.9520, L505.5000, L501.9100 ####[facility] [address] [place], [place], [id number] Total proteinOrdered By: Taylor Mustafa on 04-07-2025 Protein [Mass/Vol] 6.9 g/dL 5.9-8.4 [facility] Triglycerides measurementOrd ered By: Milo Mcnally on 04-07-2025 Triglyceride [Mass/Vol] 124 mg/dL <199 [facility] Comment on above: The drugs N-Acetylcy steine and Metamizole may falsely depress this assay. Normal range: <150 mg/dLBorderline High: 150-199 mg/dLHigh: 200-499 mg/dLVery High: >500 mg/dL Urinalysis, Completeon 04-07 BACTERIA RARE Normal None Seen [facility] Comment on above: Order Comment: COLLE CTOR TO SPECIFY Performed By: #### L 400.0001 ####[facility] [address] [place], [address] EPI,SQUAMOUS 0-5 SEEN Normal 5-10 [facility] Comment on above: Order Comment: COLLE CTOR TO SPECIFY Performed By: #### L 400.0001 ####[facility] [address] [place], [address] Mucus Ql (Urine sed) 0 SEEN Normal [facility] Comment on above: Order Comment: BRITNI CTOR TO SPECIFY Performed By: #### L 400.0001 ####[facility] [address] [place], [address] RBC 0 SEEN Normal 0-5 [facility] Comment on above: Order Comment: BRITNI CTOR TO SPECIFY Performed By: #### L 400.0001 ####[facility] [address] [place], [address] WBC 0 SEEN Normal 0-5 [facility] Comment on above: Order Comment: BRITNI CTOR TO SPECIFY Performed By: #### L 400.0001 ####[facility] [address] [place], [address] Urine Drug Screen (VISTA)on 04-07-2025 AMPHETAMINES Negative Normal <1000 ng/mL [facility] Comment on above: Performed By: #### L 501.9985, L501.9520, L505.5000, L501.9100 ####[facility] [address] [place], [address] BARBITIURATES Negative Normal < 200 ng/mL [facility] Comment on above: Performed By: #### L 501.9985, L501.9520, L505.5000, L501.9100 ####[facility] [address] [place], [address] BENZODIAZIPINE Negative Normal < 200 ng/mL [facility] Comment on above: Performed By: #### L 501.9985, L501.9520, L505.5000, L501.9100 ####[facility] [address] [place], [address] BUP Ur Drug Scr Negative Normal < 200 ng/mL [facility] Comment on above: Performed By: #### L 501.9985, L501.9520, L505.5000, L501.9100 ####[facility] [address] [place], [address] COCAINE Negative Normal < 300 ng/mL [facility] Comment on above: Performed By: #### L 501.9985, L501.9520, L505.5000, L501.9100 ####[facility] [address] [place], [address] Fentanyl Negative Normal <5 ng/mL [facility] Comment on above: Result Comment: CONF [...] By: #### L 501.9985, L501.9520, L505.5000, L501.9100 ####[facility] [address] [facility] [address] METHADONE Negative Normal < 300 ng/mL [facility] Comment on above: Performed By: #### L 501.9985, L501.9520, L505.5000, L501.9100 ####[facility] [address] [place], [address] OPIATES Negative Normal < 300 ng/mL [facility] Comment on above: Performed By: #### L 501.9985, L501.9520, L505.5000, L501.9100 ####[facility] [address] [place], [address] OXYCODONE Negative Normal < 100 ng/mL [facility] Comment on above: Performed By: #### L 501.9985, L501.9520, L505.5000, L501.9100 ####[facility] [address] [place], [address] PCP Negative Normal < 25 ng/mL [facility] Comment on above: Performed By: #### L 501.9985, L501.9520, L505.5000, L501.9100 ####[facility] [address] [place], [address] THC Negative Normal < 50 ng/mL [facility] Comment on above: Performed By: #### L 501.9985, L501.9520, L505.5000, L501.9100 ####[facility] [address] [place], [address] Urine benzodiazepine levelOr dered By: Milo Mcnally on 04-07-2025 Benzodiazepines Ql (U) Negative < 200 ng/mL [place] Urine clarityOrdered By: Taylor Mustafa on 04-07-2025 Clarity (U) Clear Clear [facility] Urine cocaine levelOrdered B y: Milo Mcnally on 04-07-2025 Cocaine Ql (U) Negative < 300 ng/mL [facility] Urine color determinationOrd ered By: Venkat Mustafa on 04-07-2025 Color (U) Yellow Yellow [facility] Urine cwrfu-8-tatessimqraheq abinol (THC) measurementOrdered By: Milo Mcnally on 04-07-2025 Cannabinoids Screen Ql (U) Negative < 50 ng/mL [facility] Urine glucose detectionOrder ed By: Venkat Mustafa on 04-07-2025 Glucose Ql (U) Normal mg/dl Normal [facility] Urine leukocyte esterase det ection by dipstickOrdered By: Venkat Mustafa on 04-07-2025 Leukocyte esterase Test strip Ql (U) Negative Negative [facility] Urine pHOrdered By: Venkat Mustafa on 04-07-2025 pH (U) 7.0 [pH] 5.0 - 8.0 [facility] Urine phencyclidine (PCP) de tectionOrdered By: Milo Mcnally on 04-07-2025 Phencyclidine Ql (U) Negative < 25 ng/mL [facility] Urine sediment bacteria coun t by microscopy (number/high power field)Ordered By: Venkat Mustafa on 04-07-2025 Bacteria LM.HPF (Urine sed) [#/Area] RARE /hpf None Seen [facility] Urine specific gravity measu rementOrdered By: Venkat Mustafa on 04-07-2025 Specific gravity (U) [Rel density] 1.010 1.002-1.030 [facility] Urine urobilinogen measureme ntOrdered By: Venkat Mustafa on 04-07-2025 Urobilinogen Ql (U) Normal mg/dl Normal [facility] White blood cell (WBC) count Ordered By: Venkat Mustafa on 04-07-2025 WBC (Bld) [#/Vol] 8.5 10*3/uL 4.4-11.0 [facility] White blood cell countOrdere d By: Venkat Mustafa on 04-07-2025 White blood cell count 0 SEEN /hpf 0-5 [facility] [place] Absolute lymphocyte countOrd ered By: Teodoro Daley on 04-04-2025 Lymphocytes Auto (Unsp spec) [#/Vol] 1.18 10*3/uL 0.83-4.51 [facility] Absolute neutrophil countOrd ered By: Teodoro Daley on 04-04-2025 Neutrophils (Bld) [#/Vol] 5.8 10*3/uL 2.0-7.7 [facility] Anion gap in Serum or Plasma Ordered By: Teodoro Daley on 04-04-2025 Anion gap [Moles/Vol] 9 mmol/L 5-15 [facility] Automated lymphocyte count a s percentage of total leukocytesOrdered By: Teodoro Daley on 04-04-2025 Lymphocytes/100 WBC Auto (Unsp spec) 14.8 % Low 19-41 [facility] BUN/creatinine ratioOrdered By: Teodoro Daley on 04-04-2025 Urea nitrogen/Creatinine [Mass ratio] 7.8 mg/mg Low 10-20 [facility] Basic Metabolic Profile (BMP )on 04-04-2025 BUN/CRE 7.8 RATIO Low 10- [facility] Comment on above: Performed By: #### L 500.2500, L100.0100 #### [facility] [address] [place], [address] Calcium [Mass/Vol] 8.9 mg/dL Normal 7.6-11.0 [facility] Comment on above: Performed By: #### L 500.2500, L100.0100 #### [facility] [address] [place], [address] Chloride [Moles/Vol] 109 mmol/L High 98-108 [facility] Comment on above: Performed By: #### L 500.2500, L100.0100 #### [facility] [address] [place], [address] CO2 [Moles/Vol] 24.5 mmol/L Normal 21.0-32.0 [facility] Comment on above: Performed By: #### L 500.2500, L100.0100 #### [facility] [address] [place], [address] Creatinine [Mass/Vol] 0.91 mg/dL Normal 0.70-1.20 [facility] Comment on above: Performed By: #### L 500.2500, L100.0100 #### [facility] [address] [place], [address] ECRCL 56.35 ml/min Normal 50-250 [facility] Comment on above: Performed By: #### L 500.2500, L100.0100 #### [facility] [address] [place], [address] GAP 9 Normal 5-15 [facility] Comment on above: Performed By: #### L 500.2500, L100.0100 #### [facility] [address] [place], [address] GFR/1.73 sq M.predicted among non-blacks MDRD (S/P/Bld) [Vol rate/Area] 66 mL/min/{1.73_m2} Normal >60 [facility] Comment on above: Result Comment: mL/m in/1.73m2 CKD-EPI Creatinine Equation (2020) Performed By: #### L 500.2500, L100.0100 #### [facility] [address] [place], [address] Glucose [Mass/Vol] 99 mg/dL Normal 70-99 [facility] Comment on above: Performed By: #### L 500.2500, L100.0100 #### [facility] [address] [place], [address] Potassium [Moles/Vol] 3.8 mmol/L Normal 3.3-5.1 [facility] Comment on above: Performed By: #### L 500.2500, L100.0100 #### [facility] [address] [place], [address] Sodium [Moles/Vol] 143 mmol/L Normal 133-145 [facility] Comment on above: Performed By: #### L 500.2500, L100.0100 #### [facility] [address] [place], [address] Urea nitrogen [Mass/Vol] 7 mg/dL Normal 4-19 [facility] Comment on above: Performed By: #### L 500.2500, L100.0100 #### [facility] [address] [place], [address] Basophil percentageOrdered B y: Teodoro Daley on 04-04-2025 Basophils/100 WBC (Bld) 0.6 % 0-1 [facility] CBC W/Diff, Automatedon 10-2 -2024 Absolute Lymph 1.18 X10 3/uL Normal 0.83-4.51 [facility] Comment on above: Performed By: #### L 500.2500, L100.0100 #### [facility] [address] [place], [address] Absolute Neut 5.8 X10 3/uL Normal 2.0-7.7 [facility] Comment on above: Performed By: #### L 500.2500, L100.0100 #### [facility] [address] [place], [address] Basophils/100 WBC (Bld) 0.6 % Normal 0-1 [facility] Comment on above: Performed By: #### L 500.2500, L100.0100 #### [facility] [address] [place], [address] Eosinophils/100 WBC (Bld) 6.3 % High 0-5 [facility] Comment on above: Performed By: #### L 500.2500, L100.0100 #### [facility] [address] [place], [address] Erythrocyte distribution width (RBC) [Ratio] 13.1 % Normal 11.6-14.6 [facility] Comment on above: Performed By: #### L 500.2500, L100.0100 #### [facility] [address] [place], [address] Hematocrit (Bld) [Volume fraction] 39.9 % Normal 37-47 [facility] Comment on above: Performed By: #### L 500.2500, L100.0100 #### [facility] [address] [place], [address] Hemoglobin (Bld) [Mass/Vol] 13.6 g/dL Normal 12.0-15.0 [facility] Comment on above: Performed By: #### L 500.2500, L100.0100 #### [facility] [address] [place], [address] IG% 0.500 Normal 0.0-0.9 [facility] Comment on above: Result Comment: IG% - Immature Granulocytes (promyelocytes, myelocytes and metamyelocytes) > 1% indicates that a LEFT SHIFT is Present. Performed By: #### L 500.2500, L100.0100 #### [facility] [address] [place], [address] Lymphocytes/100 WBC (Bld) 14.8 % Low 19-41 [facility] Comment on above: Performed By: #### L 500.2500, L100.0100 #### [facility] [address] [place], [address] MCH (RBC) [Entitic mass] 31.6 pg Normal 27.0-32.0 [facility] Comment on above: Performed By: #### L 500.2500, L100.0100 #### [facility] [address] [place], [address] MCHC (RBC) [Mass/Vol] 34.1 g/dL Normal 32-36 [facility] Comment on above: Performed By: #### L 500.2500, L100.0100 #### [facility] [address] [place], [address] MCV (RBC) [Entitic vol] 92.8 fL Normal 81-99 [facility] Comment on above: Performed By: #### L 500.2500, L100.0100 #### [facility] [address] [place], [address] Monocytes/100 WBC (Bld) 5.3 % Normal 0-10 [facility] Comment on above: Performed By: #### L 500.2500, L100.0100 #### [facility] [address] [place], [address] Neutrophils/100 WBC (Bld) 72.5 % High 47-70 [facility] Comment on above: Performed By: #### L 500.2500, L100.0100 #### [facility] [address] [place], [address] Nucleated RBC (Bld) [#/Vol] 0 10*3/uL Normal 0-5 [facility] Comment on above: Performed By: #### L 500.2500, L100.0100 #### [facility] [address] [place], [address] Platelet mean volume (Bld) [Entitic vol] 11.9 fL Normal 6.2-12.0 [facility] Comment on above: Performed By: #### L 500.2500, L100.0100 #### [facility] [address] [place], [address] Platelets (Bld) [#/Vol] 230 10*3/uL Normal 150-450 [facility] Comment on above: Performed By: #### L 500.2500, L100.0100 #### [facility] [address] [place], [address] RBC (Bld) [#/Vol] 4.30 10*6/uL Normal 4.2-5.4 [facility] Comment on above: Performed By: #### L 500.2500, L100.0100 #### [facility] [address] [place], [address] RDW SD 44.3 fl High 35.1-43.9 [facility] Comment on above: Performed By: #### L 500.2500, L100.0100 #### [facility] [address] [place], [address] WBC (Bld) [#/Vol] 8.0 10*3/uL Normal 4.4-11.0 [facility] Comment on above: Performed By: #### L 500.2500, L100.0100 #### [facility] [address] [place], [address] Carbon dioxide, total [Moles /volume] in Central venous bloodOrdered By: Teodoro Daley on 04-04-2025 CO2 [Moles/Vol] 24.5 mmol/L 21.0-32.0 [facility] Chloride assayOrdered By: Jill Daley on 04-04-2025 Chloride [Moles/Vol] 109 mmol/L High 98-108 [facility] Emergency Department Summary on 04-04-2025 Emergency Department Summary [facility] Medical Records Department [address] [place] [address] Emergency Department Summary 04/04/25 MR#: [id number] Acct: [id number] Name: ILENE SHAW Rep #: [id number] : 1950 75 From: Teodoro Daley MD [...] housing: house Smoking Status: Never smoker ROS [facility] ED Cardiovascular Cardiovascular: Denies chest pain, [...] since t (more content not included)... Normal [facility] Eosinophil percentageOrdered By: Teodoro Daley on 04-04-2025 Eosinophils/100 WBC (Bld) 6.3 % High 0-5 [facility] Erythrocyte distribution wid th ratioOrdered By: Teodoro Daley on 04-04-2025 Erythrocyte distribution width (RBC) [Ratio] 13.1 % 11.6-14.6 [facility] Erythrocyte distribution wid th standard deviationOrdered By: Teodoroshelbie Daley on 04-04-2025 Erythrocyte distribution width (RBC) [Ratio] 44.3 fl High 35.1-43.9 [facility] Glomerular filtration rate ( GFR) estimation/1.73 sq m using serum, plasma, or whole bOrdered By: Teodoro Daley on 04-04-2025 GFR/1.73 sq M.predicted among non-blacks MDRD (S/P/Bld) [Vol rate/Area] 66 mL/min/{1.73_m2} >60 [facility] Comment on above: mL/min/1.73m2 CKD-EP I Creatinine Equation (2020) Hematocrit Auto (Bld) [Volum e fraction]Ordered By: Teodoro Daley on 04-04-2025 Hematocrit (Bld) [Volume fraction] 39.9 % 37-47 [facility] Hemoglobin measurementOrdere d By: Teodoro Daley on 04-04-2025 Hemoglobin (Bld) [Mass/Vol] 13.6 g/dL 12.0-15.0 [facility] Immature granulocytes/100 WB C Auto (Bld)Ordered By: Teodoro Daley on 04-04-2025 Immature granulocytes/100 WBC (Bld) 0.500 % 0.0-0.9 [facility] Comment on above: IG% - Immature Granu locytes (promyelocytes, myelocytes and metamyelocytes) > 1% indicates that a LEFT SHIFT is Present. MCV (mean corpuscular volume ) determinationOrdered By: Teodoro Daley on 04-04-2025 MCV (RBC) [Entitic vol] 92.8 fL 81-99 [facility] Mean corpuscular hemoglobin (MCH) determinationOrdered By: Teodoroshelbie Daley on 04-04-2025 MCH (RBC) [Entitic mass] 31.6 pg 27.0-32.0 [facility] Mean corpuscular hemoglobin concentration (MCHC) determinationOrdered By: Teodoroshelbie Daley on 04-04-2025 MCHC (RBC) [Mass/Vol] 34.1 g/dL 32-36 [facility] Mean platelet volume determi nationOrdered By: Teodoro Daley on 04-04-2025 Platelet mean volume (Bld) [Entitic vol] 11.9 fL 6.2-12.0 [facility] Monocyte percentageOrdered B y: Teodoro Daley on 04-04-2025 Monocytes/100 WBC (Bld) 5.3 % 0-10 [facility] Neutrophil percentageOrdered By: Teodoroshelbie Daley on 04-04-2025 Neutrophils/100 WBC (Bld) 72.5 % High 47-70 [facility] Nucleated red blood cell per centageOrdered By: Teodoro Daley on 04-04-2025 Nucleated RBC/100 WBC (Bld) [Ratio] 0 % 0-5 [facility] Platelet countOrdered By: shelbie Daley on 04-04-2025 Platelets (Bld) [#/Vol] 230 10*3/uL 150-450 [facility] Potassium measurement (mass/ volume)Ordered By: Teodoroshelbie Daley on 04-04-2025 Potassium (Unsp spec) [Mass/Vol] 3.8 mmol/L 3.3-5.1 [facility] RBC Auto (Bld) [#/Vol]Ordere d By: Teodoro Daley on 04-04-2025 RBC (Bld) [#/Vol] 4.30 10*6/uL 4.2-5.4 [facility] Serum creatinine measurement (mass/volume)Ordered By: Teodoro Daley on 04-04-2025 Creatinine [Mass/Vol] 0.91 mg/dL 0.70-1.20 [facility] Serum glucose measurement (m ass/volume)Ordered By: Teodoro Daley on 04-04-2025 Glucose [Mass/Vol] 99 mg/dL 70-99 [facility] Serum or plasma calcium iwona urement (mass/volume)Ordered By: Teodoro Daley on 04-04-2025 Calcium [Mass/Vol] 8.9 mg/dL 7.6-11.0 [facility] Serum or plasma urea nitroge n measurement (mass/volume)Ordered By: Teodoro Daley on 04-04-2025 Urea nitrogen [Mass/Vol] 7 mg/dL 4-19 [facility] Sodium levelOrdered By: Teodoro Daley on 04-04-2025 Sodium [Moles/Vol] 143 mmol/L 133-145 [facility] Venous Duplex US, Unilateral on 04-04-2025 Venous Duplex US, Unilateral [facility] Cardiovascular Services [address] [place] [address] Venous Duplex US, Unilateral 04/04/25 1109 MR#: [id number] Acct: [id number] Name: ILENE SHAW Rep #: [id number] : 1950 75 From: Bran Alston MD [...] MD Date Dictated: 04/04/251108 Date Transcribed: 04/04/251554 Special Agent Fbi: Signed Normal [facility] Venous duplex ultrasound rep ortOrdered By: Bran Alston on 04-04-2025 US Vein [facility] Cardiovascular Services [address] [place] [address] Venous Duplex US, Unilateral 04/04/251108 MR#: [id number] Acct: [id number] Name: ILENE SHAW Rep #:[id number] : 1950 75 From: Bran Rhodes [...] Dictated: 04/04/25 1109 Date Transcribed: 04/04/25 155 Special Agent Fbi: Signed [facility] Work Phone: White blood cell (WBC) count Ordered By: Teodoro Dlaey on 04-04-2025 WBC (Bld) [#/Vol] 8.0 10*3/uL 4.4-11.0 [facility] Urgent Care Visit Reporton 0 01-03-2025 Urgent Care Visit Report [facility] [address], [address] [place] [address] OFFICE VISIT Date of Service: 01/03/25 MR#: [id number] Acct: [id number] Name: ILENE SHAW Rep #: [id number] : 1950 Provider: RA Currie Age/Sex: 74/F Location: [facility] Status: Signed Intake Vital Signs 08/28/23 16:43 01/03/25 15:04 Height 5 ft 2 in 5 ft 2 in Weight: 195 lb BMI 35.6 BP 130/84 H Blood Pressure Location Lt brachial Position Sitting Respiration 16 Pulse 94 Pulse Source Monitor Temp 98.2 F Temp Source Oral Pulse Oximetry (%) 97 Oxygen Delivery Method room air Intake Visit Reasons: Cough Chief Complaint: Cough 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 No fjsh-ley-nismwxu products taken to assist. Additionally, patient notes having a history of chronic vaginal pruritus and concern for vaginal candidiasis; she notes crtp-mmy-kqyxevk Monistat cream helping some but may not resolve her symptoms. No other associated symptoms and no alleviating/aggravating factors. ROS Const Constitutional: No other (As above) Exam Const General: cooperative, healthy appearing and no acute distress Orientation: alert and awake HENTN Head: normal to inspection Ears: hearing grossly [...] (more content not included)... Normal [facility] 12-20-2024 [facility]CO Letter Text Normal [facility] BARBARA SCREENING W TOMOon 09-22 BARBARA SCREENING W EL * * *Final Report* * * DATE OF EXAM: Sep 22 2024 9:56AM WRW [id number] - BARBARA SCREENING W EL / PROCEDURE REASON: Encounter for screening mammogram for breast cancer * * * * Physician Interpretation * * * * RESULT: [place] [address] [place] [address] #[id number] - BARBARA SCREENING W EL HISTORY: 74 [...] Mita Finney M.D. Electronically signed on: 09/23/2024 Special Agent Fbi: SÁNCHEZ Riosriemily Date/Time: Sep 22 2024 9:45A Dictated by: MITA FINNEY MD This examination was interpreted and the report reviewed and electronically signed by: MITA FINNEY MD on Sep 23 2024 7:47PM EST [id number] [facility] (INTMWS) ILENE SHAW ([id number]) 1950 F Date Time Provider Department 09/14/24 [...] breast cancer [Z12.31] Order(s):BARBARA SCREENING W EL [[id number]] Order #: [id number] FUTURE Prescriptions as of 09/14/2024 - aspirin [...] Encounter Status:Closed by KELLE PETER on 09/14/24 [facility] Kelsie 05-11-2024 [facility] Telephone (UCWSTR) ILENE SHAW ([id number]) 1950 F Date Time Provider Department 05/11/24 TORREY DAWSON [facility] During your visit today, we recorded the [...] Status:Closed by CLAUDETTE DIAL on 05/11/24 Normal [facility] BACTERIAL VAGINOSIS NAATon 1 07-10-2023 Lactobacillus crispatus+gasseri+shahana enii + Gardnerella vaginalis + Atopobium vaginae rRNA RADHA+probe Ql (Vag fld) Not detected Normal Not detected [facility] Comment on above: Order Comment: Speci men Type: SWABOrdering Facility: [facility] Address: [address] [place] [address] Performed By: #### Arlene CHADWICK, [id number] ####[facility] LABCLIA [id number] [address] [place] Bacteria Ur Culton 4 Bacteria [...] , Intermediate >32 , Resistant >64 Abnormal [facility] Comment on above: Performed By: #### 6 30-4 ####[facility] LABCLIA [id number] [place] [address] [place] C. trachomatis+N. gonorrhoea e DNA RADHA+probe Ql (Unsp spec)on 05-10-2024 C. trachomatis rRNA RADHA+probe Ql (Unsp spec) Not detected Normal Not detected [facility] Comment on above: Order Comment: Speci men Type: SWABOrdering Facility: [facility] Address: [address] [place] [address] Performed By: #### B VAMP, 66792-8 ####[facility] LABCLIA [id number] [place] [address] [place] N. gonorrhoeae rRNA RADHA+probe Ql (Unsp spec) Not detected Normal Not detected [facility] Comment on above: Order Comment: Speci men Type: SWABOrdering Facility: [facility] Address: [address] [place] [address] Performed By: #### B VAMP, 69833-8 ####[facility] LABCLIA [id number] [place] [address] [place] ALBA/TRICHOMONAS NAATon 1 07-10-2023 C. glabrata RNA RADHA+probe Ql (Vag fld) Not detected Normal Not detected [facility] Comment on above: Order Comment: Speci men Type: SWABOrdering Facility: [facility] Address: [address] [place] [address] Performed By: #### C VTV ####[facility] LABCLIA [id number] [place] [address] [place] Alba sp DNA RADHA+probe Ql (Vag fld) Detected Abnormal Not detected [facility] Comment on above: Order Comment: Speci men Type: SWABOrdering Facility: [facility] Address: [address] [place] [address] Result Comment: The Alba species group target includes C. albicans, C. tropicalis, C. parapsilosis, and C. dubliniensis. Performed By: #### C VTV ####[facility] LABIA [id number] [address] OF [facility] T. vaginalis DNA RADHA+probe Ql (Unsp spec) Not detected Normal Not detected [facility] Comment on above: Order Comment: Speci men Type: SWABOrdering Facility: [facility] Address: [address] [place] [address] Performed By: #### C VTV ####[facility] LABCLIA [id number] [address] OF [facility] CNOVon 05-10-2024 CNOV Office Visit (WSTR ) GOLDENILENE Sangeeta ([id number]) 1950 F Date Time Provider Department 05/10/24 12:30 PM TORREY DAWSON WSTR During your visit today, we recorded the following information about you: Temperature Pulse Respiration Blood pressure 98.1 degrees 75/minute 20/minute 136/78 Weight 87 kg Torrey Dawson PA-C 05/10/2024 2:21 PM Signed This note was created using [employer]. Subjective Ileneirene Shaw is a 74 year [...] Exam Vitals reviewed. Exam conducted with a warehouse clerk present (Claudette ARTHUR). Constitutional: Appearance: Normal appearance. [...] Assessed Reaso (more content not included)... Normal [facility] UA DIP, URINE (POC)on 2023 BILIRUBIN UA (POCT) Negative Negative [facility] CLARITY UA (POCT) Cloudy [facility] COLOR UA (POCT) Dark yellow [facility] GLUCOSE UA (POCT) Negative Negative mg/dL [facility] Hemoglobin Ql (U) Large Abnormal Negative [facility] Interpretation and review of laboratory results Abnormal [facility] KETONE UA (POCT) Negative Negative mg/dL [facility] LEUKOCYTES UA (POCT) Trace Abnormal Negative [facility] NITRITE UA (POCT) Positive Abnormal Negative [facility] PH UA (POCT) 5.5 4.5 - 8.0 [facility] Protein Ql (U) >=300 Abnormal Negative mg/dL [facility] SPECIFIC GRAVITY UA (POCT) 1.025 1.005 - 1.030 [facility] UROBILINOGEN UA (POCT) 0.2 Normal E.U./d L [facility] Location:[address], [place], [place], [address] [place] [address] POINT OF CARE [facility] XR Chest PA and Lateralon IMPRESSION: No acute radiographic abnormality. Special Agent Fbi: AAKASH Transcribe Date/Time: Nov 18 2023 11:20A Dictated by : ELLI BAUM MD This examination was interpreted and the report reviewed and electronically signed by: ELLI BAUM MD on Nov 18 2023 11:21AM [facility] DIVISION OF RADIOLOGY * * [...] wall surgical clips. DIVISION OF RADIOLOGY Provider, [facility] - 11/18/2023 * * *Final Report* * [...] clips. IMPRESSION IMPRESSION: No acute radiographic abnormality. Special Agent Fbi: PSCB Transcribe Date/Time: Nov 18 2023 11:20A Dictated by : ELLI BAUM MD This examination was interpreted and the report reviewed and electronically signed by: ELLI BAUM MD on Nov 18 2023 11:21AM EST [facility] Radiology Study observation (narrative) [facility] XR Chest PA and LateralOrder ed By: [facility]cf Provider on 11-18-2023 [facility] BACTERIAL VAGINOSIS NAATon 0 10-22-2023 Interpretation and review of laboratory results Normal [facility] Lactobacillus crispatus+gasseri+shahana enii + Gardnerella vaginalis + Atopobium vaginae rRNA RADHA+probe Ql (Vag fld) Negative Negative for bacterial vaginosis [facility] ALBA/TRICHOMONAS NAATon 0 10-22-2023 C. glabrata RNA RADHA+probe Ql (Vag fld) Negative Negative for Alba glabrata [facility] Alba sp DNA RADHA+probe Ql (Vag fld) Positive Abnormal Negative for Alba species [facility] Interpretation and review of laboratory results Abnormal [facility] T. vaginalis DNA RADHA+probe Ql (Unsp spec) Negative Negative for Trichomonas vaginalis by amplification [facility] UA DIP, URINE (POC)on 2023 BILIRUBIN UA (POCT) Negative Negative [facility] CLARITY UA (POCT) Clear [facility] COLOR UA (POCT) Yellow [facility] GLUCOSE UA (POCT) Negative Negative mg/dL [facility] Hemoglobin Ql (U) Negative Negative [facility] KETONE UA (POCT) Negative Negative mg/dL [facility] LEUKOCYTES UA (POCT) Negative Negative [facility] NITRITE UA (POCT) Negative Negative [facility] PH UA (POCT) 5.5 4.5 - 8.0 [facility] Protein Ql (U) Negative Negative mg/dL [facility] SPECIFIC GRAVITY UA (POCT) 1.025 1.005 - 1.030 [facility] UROBILINOGEN UA (POCT) 0.2 Normal E.U./d L [facility] Location:[facility], [address] [place] [address], [place], [place], [id number] [place] [address] POINT OF CARE [facility] DBT Breast - left diagnostic for implanton 09-30-2023 [facility] US Breast - left limitedon 0 09-30-2023 [facility] CBC panel Auto (Bld)on 05-22 Erythrocyte distribution width (RBC) [Ratio] 12.6 % 11.5 - 15.0 % [facility] Hematocrit (Bld) [Volume fraction] 42.8 % 36.0 - 46.0 % [facility] Hemoglobin (Bld) [Mass/Vol] 14.0 g/dL 11.5 - 15.5 g/dL [facility] MCH (RBC) [Entitic mass] 31.3 pg 26.0 - 34.0 pg [facility] MCHC (RBC) [Mass/Vol] 32.7 g/dL 30.5 - 36.0 g/dL [facility] MCV (RBC) [Entitic vol] 95.7 fL 80.0 - 100.0 fL [facility] Nucleated RBC (Bld) [#/Vol] <0.01 k/uL [facility] Platelet mean volume (Bld) [Entitic vol] 11.6 fL 9.0 - 12.7 fL [facility] Platelets (Bld) [#/Vol] 256 10*3/uL 150 - 400 k/uL [facility] RBC (Bld) [#/Vol] 4.47 10*6/uL 3.90 - 5.2 0 m/uL [facility] WBC (Bld) [#/Vol] 8.44 10*3/uL 3.70 - 11. 00 k/uL [facility] No Panel Informationon 09-03 [facility] Absolute lymphocyte counton 03-02-2022 Lymphocytes Auto (Unsp spec) [#/Vol] 1.96 10*3/uL 0.83-4.51 [facility] Work Phone: Basophil percentageon 2021 Basophils/100 WBC (Bld) 0.6 % 0-1 [facility] Work Phone: Bilirubin [Mass/Vol] 0.40 mg/dL 0.20-1.00 [facility] Work Phone: Comment on above: For patients on eltr ombopag therapy, use of [employer] TBIL is not recommended. Chloride [Moles/Vol] 108 mmol/L 98-107 [facility] Work Phone: Eosinophils/100 WBC (Bld) 5.5 % 0-5 [facility] Work Phone: Glucose [Mass/Vol] 93 mg/dL 74-106 [facility] Work Phone: Neutrophils (Bld) [#/Vol] 5.0 10*3/uL 2.0-7.7 [facility] Work Phone: Neutrophils/100 WBC (Bld) 62.7 % 47-70 [facility] Work Phone: Potassium [Moles/Vol] 3.6 mmol/L 3.5-5.1 [facility] Work Phone: Protein [Mass/Vol] 7.6 g/dL 6.4-8.2 [facility] Work Phone: Sodium [Moles/Vol] 143 mmol/L 136-145 [facility] Work Phone: WBC (Bld) [#/Vol] 8.0 10*3/uL 4.4-11.0 [facility] Work Phone: Blood erythrocytes count (nu mber/volume)on 03-02-2022 RBC (Bld) [#/Vol] 4.56 10*6/uL 4.2-5.4 [facility] Work Phone: Blood hemoglobin measurement (mass/volume)on 03-02-2022 Hemoglobin (Bld) [Mass/Vol] 14.3 g/dL 12.0-15.0 [facility] Work Phone: Blood lymphocytes/100 leukoc yteson 03-02-2022 Lymphocytes/100 WBC (Bld) 24.5 % 19-41 [facility] Work Phone: Blood monocytes/100 leukocyt eson 03-02-2022 Monocytes/100 WBC (Bld) 6.6 % 0-10 [facility] Work Phone: Blood platelet mean volumeon 03-02-2022 Platelet mean volume (Bld) [Entitic vol] 11.1 fL 6.2-12.0 [facility] Work Phone: Determination of erythrocyte mean corpuscular volume (MCV)on 03-02-2022 MCV (RBC) [Entitic vol] 95.6 fL 81-99 [facility] Work Phone: Hematocrit Auto (Bld) [Volum e fraction]on 03-02-2022 Hematocrit (Bld) [Volume fraction] 43.6 % 37-47 [facility] Work Phone: INR in Blood by Coagulation assayon 03-02-2022 INR Coag (Bld) [Relative time] 1.1 {INR} [facility] Work Phone: Laboratory - Chemistry and C hemistry - challengeon 03-02-2022 ALP [Catalytic activity/Vol] 86 U/L 45-117 [facility] Work Phone: ALT [Catalytic activity/Vol] 18 U/L 13-56 [facility] Work Phone: CO2 [Moles/Vol] 27.0 mmol/L 21.0-32.0 [facility] Work Phone: Globulin (S) [Mass/Vol] 3.9 g/dL 2.2-4.2 [facility] Work Phone: Urea nitrogen/Creatinine [Mass ratio] 9.8 mg/mg 10-20 [facility] Work Phone: Laboratory - Coagulationon 0 03-02-2022 aPTT Coag (Bld) [Time] 31.7 s [facility] Work Phone: PT Coag (PPP) [Time] 13.5 s 11.7-14.9 [facility] Work Phone: Laboratory - Hematology and Cell countson 03-02-2022 Erythrocyte distribution width (RBC) [Entitic vol] 47.2 fL 35.1-43.9 [facility] Work Phone: Erythrocyte distribution width (RBC) [Ratio] 13.2 % 11.6-14.6 [facility] Work Phone: Immature granulocytes/100 WBC (Bld) 0.100 % 0.0-0.9 [facility] Work Phone: Comment on above: IG% - Immature Granu locytes (promyelocytes, myelocytes and metamyelocytes) > 1% indicates that a LEFT SHIFT is Present. MCH (RBC) [Entitic mass] 31.4 pg 27.0-32.0 [facility] Work Phone: Nucleated RBC/100 WBC (Bld) [Ratio] 0 % 0-5 [facility] Work Phone: MCHC Auto (RBC) [Mass/Vol]on 03-02-2022 MCHC (RBC) [Mass/Vol] 32.8 g/dL 32-36 [facility] Work Phone: No Panel Informationon 03-02 Estimated Creatinine Clearance Calc 43.72 ml/min [facility] Work Phone: Estimated GFR (MDRD) Amer 77 mL/min >60 [facility] Work Phone: Comment on above: GFR Calc Estimated GFR (MDRD) Non-Af Amer 64 mL/min >60 [facility] Work Phone: Comment on above: Non- GFR Calc Platelets bldon 03-02-2022 Platelets (Bld) [#/Vol] 267 10*3/uL 150-450 [facility] Work Phone: Serum or plasma albumin iwona urement (mass/volume)on 03-02-2022 Albumin [Mass/Vol] 3.7 g/dL 3.2-5.0 [facility] Work Phone: Serum or plasma albumin/glob ulin mass ratioon 03-02-2022 Albumin/Globulin [Mass ratio] 0.9 {ratio} 0.9-2.4 [facility] Work Phone: Serum or plasma calcium iwona urement (mass/volume)on 03-02-2022 Calcium [Mass/Vol] 9.2 mg/dL 8.5-10.1 [facility] Work Phone: Serum or plasma creatinine m easurement (mass/volume)on 03-02-2022 Creatinine [Mass/Vol] 0.92 mg/dL 0.55-1.02 [facility] Work Phone: Comment on above: The validity of the calculated GFR & GFRAA in patients over 70 years has not been determined. Clinical correlation is essential. Serum or plasma urea nitroge n measurement (mass/volume)on 03-02-2022 Urea nitrogen [Mass/Vol] 9 mg/dL 7-18 [facility] Work Phone: Thin prep Papanicolaou smear with manual screeningon 03-02-2022 Thin prep Papanicolaou smear with manual screening 16 U/L 15-37 [facility] Work Phone: Thin prep Papanicolaou smear with manual screening 8 5-15 [facility] Work Phone: US LEG VEIN DVT UNL VAS LABo n 02-07-2022 [facility] UA DIP, URINE (POC)on 2021 BILIRUBIN UA (POCT) Small Abnormal Negative [facility] CLARITY UA (POCT) Clear [facility] COLOR UA (POCT) Dark yellow [facility] GLUCOSE UA (POCT) Negative Negative mg/dL [facility] HEMOGLOBIN/BLOOD UA (POCT) Trace-intact Abnormal Negative [facility] KETONE UA (POCT) Negative Negative mg/dL [facility] LEUKOCYTES UA (POCT) Trace [facility]normal [facility] NITRITE UA (POCT) Negative Negative [facility] PH UA (POCT) 5.5 4.5 - 8.0 [facility] Protein Ql (U) Trace Abnormal Negative mg/dL [facility] SPECIFIC GRAVITY UA (POCT) >=1.030 1.005 - 1.030 [facility] UROBILINOGEN UA (POCT) 0.2 E.U./dL Normal E.U./ dL [facility] BARBARA SCREENINGon 09-02-2021 [facility] CNOVon 11-02-2018 CNOV Office Visit (AKURFL ) GOLDENILENE Rutherford ([id number]) 1950 F Date Time Provider Department 11/02/18 10:30 AM DEEP SHANE During your visit today, we recorded the following information about you: Deep Shane DO, MBA 11/02/2018 11:31 AM Signed ?? [facility] [place] [facility] [place] LOCATION: [address] [place] [address] CYSTOSCOPY PROCEDURE NOTE: Ilene Sangeeta Shaw is a 68 year old female who presents with bladder nodule for a cystoscopy. Pt ID verified with patient: Yes Procedure verified with patient: Yes Procedure confirmed with physician and cell support operator: Yes Sign In: History and Physical Exam [...] Shane DO, MBA Referring Provider: DEEP SHANE [[id number]] Allergies As of Date: 11/02/2018 Noted Allergy [...] PROCEDUREon 11-02-2018 Protein mass conc HNO ID: [id number] Author: Deep Shane Service: ? Author Type: Physician Type: Procedures Filed: 11/02/2018 11:31 AM Note Text: ?? [facility] [place] [facility] LOCATION: [address] [place] [address] CYSTOSCOPY PROCEDURE NOTE: Ilene Shaw is a 68 year old female who presents with bladder nodule for a cystoscopy. Pt ID verified with patient: Yes Procedure verified with patient: Yes Procedure confirmed with physician and cell support operator: Yes Sign In: History and Physical Exam [...] consider mid-urethral sling Deep Shane DO, MBA [facility] Vital Signs Date Time Vital Sign Value Performing Clinician Faci randa 04-07-2025 15:30-0400 Body temperature 98.2 [degF] Dr. Jennifer Santos MD Work Phone: [facility] 04-07-2025 15:30-0400 Diastolic blood pressure 64 mm[Hg] Dr. Jennifer Santos MD Work Phone: [facility] 04-07-2025 15:30-0400 Heart rate 71 /min Dr. Jennifer Santos MD Work Phone: [facility] 04-07-2025 15:30-0400 Respiratory rate 16 /min Dr. Jennifer Santos MD Work Phone: 8(478)196-569081 [place] [address] 04-07-2025 15:30-0400 SaO2% (BldA) [Mass fraction] 97 % Dr. Jennifer Santos MD Work Phone: 1(801)770-791781 [place] [address] 04-07-2025 15:30-0400 Systolic blood pressure 117 mm[Hg] Dr. Jennifer Santos MD Work Phone: 7(490)669-336281 [place] [address] 04-07-2025 12:09-0400 Body height 157.[address] Jennifer Santos MD Work Phone: 2(775)754-498081 [place] [address] 04-07-2025 12:09-0400 Body weight 87.[address] Jennifer Santos MD Work Phone: 6(997)851-339781 [place] [address] 04-07-2025 08:10-0400 Body mass index (BMI) [Ratio] 35.2 kg/m2 Dr. Jennifer Santos MD Work Phone: 2(079)388-956281 [place] [address] 04-04-2025 12:48-0400 Body temperature 97.8 [degF] Dr. Jennifer Santos MD Work Phone: 2(369)980-841681 [place] [address] 04-04-2025 12:48-0400 Diastolic blood pressure 78 mm[Hg] Dr. Jennifer Santos MD Work Phone: 3(611)660-252281 [place] [address] 04-04-2025 12:48-0400 Heart rate 64 /min Dr. Jennifer Santos MD Work Phone: 3(139)989-625081 [place] [address] 04-04-2025 12:48-0400 Respiratory rate 18 /min Dr. Jennifer Santos MD Work Phone: 3(585)373-700981 [place] [address] 04-04-2025 12:48-0400 SaO2% (BldA) [Mass fraction] 99 % Dr. Jennifer Santos MD Work Phone: 6(578)254-752681 [place] [address] 04-04-2025 12:48-0400 Systolic blood pressure 134 mm[Hg] Dr. Jennifer Santos MD Work Phone: 2(010)154-714981 [place] [address] 04-04-2025 11:06-0400 Body mass index (BMI) [Ratio] 37 kg/m2 Dr. Jennifer Santos MD Work Phone: 0(158)212-553481 [place] [address] 04-04-2025 11:06-0400 Body weight 91.[address] Jennifer Santos MD Work Phone: 0(883)030-930781 [place] [address] 01-03-2025 15:04-0400 Body height 157.[address] Jennifer Santos MD Work Phone: 4(956)190-008681 [place] [address] 01-03-2025 15:04-0400 Body mass index (BMI) [Ratio] 35.6 kg/m2 Dr. Jennifer Santos MD Work Phone: 2(253)635-585281 [place] [address] 01-03-2025 15:04-0400 Body temperature 98.2 [degF] Dr. Jennifer Santos MD Work Phone: 8(227)881-457381 [place] [address] 01-03-2025 15:04-0400 Body weight 88.[address] Jennifer Santos MD Work Phone: 0(999)534-376581 [place] [address] 01-03-2025 15:04-0400 Diastolic blood pressure 84 mm[Hg] Dr. Jennifer Santos MD Work Phone: 0(329)211-728581 [place] [address] 01-03-2025 15:04-0400 Heart rate 94 /min Dr. Jennifer Santos MD Work Phone: 5(611)637-995881 [place] [address] 01-03-2025 15:04-0400 Respiratory rate 16 /min Dr. Jennifer Santos MD Work Phone: 4(336)604-720981 [place] [address] 01-03-2025 15:04-0400 SaO2% (BldA) [Mass fraction] 97 % Dr. Jennifer Santos MD Work Phone: 4(960)983-780581 [place] [address] 01-03-2025 15:04-0400 Systolic blood pressure 130 mm[Hg] Dr. Jennifer Santos MD Work Phone: 3(885)996-218081 [place] [address] 05-10-2024 12:44-0500 Body mass index (BMI) [Ratio] 35.08 kg/m2 Torrey Athy PA-C Work Phone: [facility] 05-10-2024 12:44-0500 Body temperature 98.1 [degF] Torrey Athy PA-C Work Phone: [facility] 05-10-2024 12:44-0500 Body weight 87 kg Torrey Athy PA-C Work Phone: [facility] 05-10-2024 12:44-0500 Diastolic blood pressure 78 mm[Hg] Torrey Athy PA-C Work Phone: [facility] 05-10-2024 12:44-0500 Heart rate 75 /min Torrey Athy PA-C Work Phone: [facility] 05-10-2024 12:44-0500 Respiratory rate 20 /min Torrey Athy PA-C Work Phone: [facility] 05-10-2024 12:44-0500 SaO2% (BldA) [Mass fraction] 100 % Torrey Athy PA-C Work Phone: [facility] 05-10-2024 12:44-0500 Systolic blood pressure 136 mm[Hg] Torrey Athy PA-C Work Phone: [facility] 11-17-2023 18:23-0400 Body mass index (BMI) [Ratio] 35.12 kg/m2 Elaine Praisler-Wood SOFTWARE TOOLS ENGINEER.FASHION PATTERNMAKER Work Phone: [facility] 11-17-2023 18:23-0400 Body temperature 99.1 [degF] Elaine Praisler-Wood SOFTWARE TOOLS ENGINEER.FASHION PATTERNMAKER Work Phone: [facility] 11-17-2023 18:23-0400 Body weight 87.1 kg Elaine Praisler-Wood SOFTWARE TOOLS ENGINEER.FASHION PATTERNMAKER Work Phone: [facility] 11-17-2023 18:23-0400 Diastolic blood pressure 80 mm[Hg] Elaine Praisler-Wood SOFTWARE TOOLS ENGINEER.FASHION PATTERNMAKER Work Phone: [facility] 11-17-2023 18:23-0400 Heart rate 98 /min Elaine Praisler-Wood SOFTWARE TOOLS ENGINEER.FASHION PATTERNMAKER Work Phone: [facility] 11-17-2023 18:23-0400 Respiratory rate 18 /min Elaine Praisler-Wood SOFTWARE TOOLS ENGINEER.FASHION PATTERNMAKER Work Phone: [facility] 11-17-2023 18:23-0400 SaO2% (BldA) [Mass fraction] 94 % Elaine Praisler-Wood SOFTWARE TOOLS ENGINEER.FASHION PATTERNMAKER Work Phone: [facility] 11-17-2023 18:23-0400 Systolic blood pressure 128 mm[Hg] Elaine Praisler-Wood SOFTWARE TOOLS ENGINEER.FASHION PATTERNMAKER Work Phone: [facility] 10-21-2023 12:29-0400 Body mass index (BMI) [Ratio] 35.52 kg/m2 Torrey Athy PA-C Work Phone: [facility] 10-21-2023 12:29-0400 Body temperature 98.91 [degF] Torrey Athy PA-C Work Phone: [facility] 10-21-2023 12:29-0400 Body weight 88.1 kg Torrey Athy PA-C Work Phone: [facility] 10-21-2023 12:29-0400 Diastolic blood pressure 82 mm[Hg] Torrey Athy PA-C Work Phone: [facility] 10-21-2023 12:29-0400 Heart rate 80 /min Torrey Athy PA-C Work Phone: [facility] 10-21-2023 12:29-0400 Respiratory rate 18 /min Torrey Athy PA-C Work Phone: [facility] 10-21-2023 12:29-0400 SaO2% (BldA) [Mass fraction] 97 % Torrey Athy PA-C Work Phone: [facility] 10-21-2023 12:29-0400 Systolic blood pressure 132 mm[Hg] Torrey Athy PA-C Work Phone: [facility] 08-28-2023 18:30-0400 Body temperature 96.98 [degF] LENA JIMENEZ MD [facility] 08-28-2023 18:30-0400 Body weight 89.9 kg LENA JIMENEZ MD [facility] 08-28-2023 18:30-0400 Diastolic Blood Pressure Non-Invasive 88 mm[Hg] LENA JIMENEZ MD [facility] 08-28-2023 18:30-0400 Heart rate 73 /min LENA JIMENEZ MD [facility] 08-28-2023 18:30-0400 Respiratory rate 18 /min LENA IJMENEZ MD [facility] 08-28-2023 18:30-0400 Systolic Blood Pressure Non-Invasive 159 mm[Hg] LENA JIMENEZ MD [facility] 08-28-2023 16:43-0400 Body height 157.48 cm [facility] 08-28-2023 16:43-0400 Body temperature 95.6 [degF] [facility] 08-28-2023 16:43-0400 Diastolic blood pressure 83 mm[Hg] [facility] 08-28-2023 16:43-0400 Heart rate 88 /min [facility] 08-28-2023 16:43-0400 Respiratory rate 14 /min [facility] 08-28-2023 16:43-0400 SaO2% (BldA) [Mass fraction] 98 % [facility] 08-28-2023 16:43-0400 Systolic blood pressure 151 mm[Hg] [facility] 05-27-2023 01:48-0500 Heart rate 89 /min [facility] 05-27-2023 01:48-0500 Respiratory rate 18 /min [facility] 05-27-2023 01:48-0500 SaO2% (BldA) [Mass fraction] 97 % [facility] 05-27-2023 01:28-0500 Diastolic blood pressure 79 mm[Hg] [facility] 05-27-2023 01:28-0500 Systolic blood pressure 153 mm[Hg] [facility] 05-26-2023 23:40-0500 Body height 157.48 cm [facility] 05-26-2023 23:40-0500 Body mass index (BMI) [Ratio] 35.1 kg/m2 [facility] 05-26-2023 23:40-0500 Body temperature 97.3 [degF] [facility] 05-26-2023 23:40-0500 Body weight 87.08 kg [facility] 05-21-2023 19:08-0500 Body temperature 96.91 [degF] Rolf Burger MD Work Phone: [facility] 05-21-2023 19:08-0500 Body weight 87.5 kg Rolf Burger MD Work Phone: [facility] 05-21-2023 19:08-0500 Diastolic blood pressure 86 mm[Hg] Rolf Burger MD Work Phone: [facility] 05-21-2023 19:08-0500 Heart rate 92 /min Rolf Burger MD Work Phone: [facility] 05-21-2023 19:08-0500 Respiratory rate 16 /min Rolf Burger MD Work Phone: [facility] 05-21-2023 19:08-0500 SaO2% (BldA) [Mass fraction] 99 % Rolf Burger MD Work Phone: [facility] 05-21-2023 19:08-0500 Systolic blood pressure 136 mm[Hg] Rolf Burger MD Work Phone: [facility] 05-21-2023 13:40-0500 Body temperature 98.71 [degF] Yaakov Richter MD Work Phone: [facility] 05-21-2023 13:40-0500 Body weight 87.36 kg Yaakov Richter MD Work Phone: [facility] 05-21-2023 13:40-0500 Diastolic blood pressure 82 mm[Hg] Yaakov Richter MD Work Phone: [facility] 05-21-2023 13:40-0500 Heart rate 80 /min Yaakov Richter MD Work Phone: [facility] 05-21-2023 13:40-0500 Respiratory rate 18 /min Yaakov Richter MD Work Phone: [facility] 05-21-2023 13:40-0500 SaO2% (BldA) [Mass fraction] 99 % Yaakov Richter MD Work Phone: [facility] 05-21-2023 13:40-0500 Systolic blood pressure 138 mm[Hg] Yaakov Richter MD Work Phone: [facility] 05-07-2023 22:45-0500 Body height 157.[address] [facility] 05-07-2023 22:45-0500 Body temperature 98.42 [degF] MISHEL MCCRARYT DO [facility] 05-07-2023 22:45-0500 Body weight 84 kg MISHEL MCCRARYT DO [facility] 05-07-2023 22:45-0500 Diastolic Blood Pressure Non-Invasive 88 mm[Hg] MISHEL MCCRARYT DO [facility] 05-07-2023 22:45-0500 Heart rate 83 /min MISHEL MCCRARYT DO [facility] 05-07-2023 22:45-0500 Respiratory rate 18 /min MISHEL MCCRARYT DO [facility] 05-07-2023 22:45-0500 Systolic Blood Pressure Non-Invasive 175 mm[Hg] MISHEL PEREZ DO [facility] 05-16-2022 11:39-0500 Body height 157.5 cm Jennifer Santos MD Work Phone: [facility] 05-16-2022 11:39-0500 Body temperature 97.7 [degF] Jennifer Santos MD Work Phone: [facility] 05-16-2022 11:39-0500 Body weight 83.92 kg Jennifer Santos MD Work Phone: [facility] 05-16-2022 11:39-0500 Diastolic blood pressure 76 mm[Hg] Jennifer Santos MD Work Phone: [facility] 05-16-2022 11:39-0500 Heart rate 81 /min Jennifer Santos MD Work Phone: [facility] 05-16-2022 11:39-0500 Respiratory rate 12 /min Jennifer Santos MD Work Phone: [facility] 05-16-2022 11:39-0500 SaO2% (BldA) [Mass fraction] 96 % Jennifer Santos MD Work Phone: [facility] 05-16-2022 11:39-0500 Systolic blood pressure 124 mm[Hg] Jennifer Santos MD Work Phone: [facility] 03-17-2022 14:42-0400 Body weight 85.73 kg Arpit Beck MD Work Phone: [facility] 03-17-2022 14:42-0400 Diastolic blood pressure 74 mm[Hg] Arpit Beck MD Work Phone: [facility] 03-17-2022 14:42-0400 Heart rate 95 /min Arpit Beck MD Work Phone: [facility] 03-17-2022 14:42-0400 Respiratory rate 16 /min Arpit Beck MD Work Phone: [facility] 03-17-2022 14:42-0400 SaO2% (BldA) [Mass fraction] 98 % Arpit Beck MD Work Phone: [facility] 03-17-2022 14:42-0400 Systolic blood pressure 132 mm[Hg] Arpit Beck MD Work Phone: [facility] 03-03-2022 15:13-0400 Body height 157.5 cm Jennifer Santos MD Work Phone: [facility] 03-03-2022 15:13-0400 Body temperature 99.19 [degF] Jennifer Santos MD Work Phone: [facility] 03-03-2022 15:13-0400 Body weight 85.73 kg Jennifer Santos MD Work Phone: [facility] 03-03-2022 15:13-0400 Diastolic blood pressure 70 mm[Hg] Jennifer Santos MD Work Phone: [facility] 03-03-2022 15:13-0400 Heart rate 90 /min Jennifer Santos MD Work Phone: [facility] 03-03-2022 15:13-0400 Respiratory rate 12 /min Jennifer Santos MD Work Phone: [facility] 03-03-2022 15:13-0400 SaO2% (BldA) [Mass fraction] 95 % Jennifer Santos MD Work Phone: [facility] 03-03-2022 15:13-0400 Systolic blood pressure 126 mm[Hg] Jennifer Santos MD Work Phone: [facility] 03-02-2022 22:56-0400 Diastolic blood pressure 83 mm[Hg] Dr. Jennifer Santos Work Phone: [facility] Work Phone: 03-02-2022 22:56-0400 Heart rate 74 /min Dr. Jennifer Santos Work Phone: [facility] Work Phone: 03-02-2022 22:56-0400 Respiratory rate 16 /min Dr. Jennifer Santos Work Phone: [facility] Work Phone: 03-02-2022 22:56-0400 SaO2% (BldA) [Mass fraction] 98 % Dr. Jennifer Santos Work Phone: [facility] Work Phone: 03-02-2022 22:56-0400 Systolic blood pressure 180 mm[Hg] Dr. Jennifer Santos Work Phone: [facility] Work Phone: 03-02-2022 18:26-0400 Body height 157.[address] Jennifer Santos Work Phone: [facility] Work Phone: 03-02-2022 18:26-0400 Body mass index (BMI) [Ratio] 35.2 kg/m2 Dr. Jennifer Santos Work Phone: [facility] Work Phone: 03-02-2022 18:26-0400 Body temperature 97.8 [degF] Dr. Jennifer Santos Work Phone: [facility] Work Phone: 03-02-2022 18:26-0400 Body weight 87.[address] Jennifer Santos Work Phone: [facility] Work Phone: 02-18-2022 07:12-0400 Body height 160.02 cm [facility] Work Phone: 02-18-2022 07:12-0400 Body mass index (BMI) [Ratio] 33.8 kg/m2 [facility] Work Phone: 02-18-2022 07:12-0400 Body temperature 97.5 [degF] [facility] Work Phone: 02-18-2022 07:12-0400 Body weight 86.63 kg [facility] Work Phone: 02-18-2022 07:12-0400 Diastolic blood pressure 90 mm[Hg] [facility] Work Phone: 02-18-2022 07:12-0400 Heart rate 88 /min [facility] Work Phone: 02-18-2022 07:12-0400 Respiratory rate 18 /min [facility] Work Phone: 02-18-2022 07:12-0400 SaO2% (BldA) [Mass fraction] 99 % [facility] Work Phone: 02-18-2022 07:12-0400 Systolic blood pressure 186 mm[Hg] [facility] Work Phone: 02-07-2022 07:10-0400 Body temperature 98.2 [degF] Torrey Athy PA-C Work Phone: [facility] 02-07-2022 07:10-0400 Body weight 86.73 kg Torrey Athy PA-C Work Phone: [facility] 02-07-2022 07:10-0400 Diastolic blood pressure 76 mm[Hg] Torrey Athy PA-C Work Phone: [facility] 02-07-2022 07:10-0400 Heart rate 94 /min Otrrey Athy PA-C Work Phone: [facility] 02-07-2022 07:10-0400 Respiratory rate 18 /min Torrey Athy PA-C Work Phone: [facility] 02-07-2022 07:10-0400 SaO2% (BldA) [Mass fraction] 97 % Torrey Athy PA-C Work Phone: [facility] 02-07-2022 07:10-0400 Systolic blood pressure 142 mm[Hg] Torrey Athy PA-C Work Phone: [facility] 01-25-2022 08:53-0400 Body temperature 96.8 [degF] Zee León APRN.FASHION PATTERNMAKER Work Phone: [facility] 01-25-2022 08:53-0400 Body weight 86.82 kg Zee Romelia SOFTWARE TOOLS ENGINEER.FASHION PATTERNMAKER Work Phone: [facility] 01-25-2022 08:53-0400 Diastolic blood pressure 102 mm[Hg] Zee Romelia SOFTWARE TOOLS ENGINEER.FASHION PATTERNMAKER Work Phone: [facility] 01-25-2022 08:53-0400 Heart rate 93 /min Zee Romelia SOFTWARE TOOLS ENGINEER.FASHION PATTERNMAKER Work Phone: [facility] 01-25-2022 08:53-0400 Respiratory rate 21 /min Zee Romelia SOFTWARE TOOLS ENGINEER.FASHION PATTERNMAKER Work Phone: [facility] 01-25-2022 08:53-0400 SaO2% (BldA) [Mass fraction] 96 % Zee Romelia SOFTWARE TOOLS ENGINEER.FASHION PATTERNMAKER Work Phone: [facility] 01-25-2022 08:53-0400 Systolic blood pressure 160 mm[Hg] Zee Romelia SOFTWARE TOOLS ENGINEER.FASHION PATTERNMAKER Work Phone: [facility] 12-13-2021 13:19-0400 Body height 157.5 cm Natasha Mesilla PA-C Work Phone: [facility] 12-13-2021 13:19-0400 Body temperature 98.01 [degF] Natasha Trevon PA-C Work Phone: [facility] 12-13-2021 13:19-0400 Body weight 87.54 kg Natasha Trevon PA-C Work Phone: [facility] 12-13-2021 13:19-0400 Diastolic blood pressure 68 mm[Hg] Natasha Trevon PA-C Work Phone: [facility] 12-13-2021 13:19-0400 Heart rate 101 /min Natasha Mesilla PA-C Work Phone: [facility] 12-13-2021 13:19-0400 SaO2% (BldA) [Mass fraction] 98 % Natasha Trevon PA-C Work Phone: [facility] 12-13-2021 13:19-0400 Systolic blood pressure 112 mm[Hg] Natasha Lester PA-C Work Phone: [facility] 12-03-2021 13:52-0400 Body height 154.9 cm Kodi Muniz MD Work Phone: [facility] 12-03-2021 13:52-0400 Body temperature 98.71 [degF] Kodi Muniz MD Work Phone: [facility] 12-03-2021 13:52-0400 Body weight 86.64 kg Kodi Muniz MD Work Phone: [facility] 12-03-2021 13:52-0400 Diastolic blood pressure 90 mm[Hg] Kodi Muniz MD Work Phone: [facility] 12-03-2021 13:52-0400 Heart rate 98 /min Kodi Muniz MD Work Phone: [facility] 12-03-2021 13:52-0400 SaO2% (BldA) [Mass fraction] 92 % Kodi Muniz MD Work Phone: [facility] 12-03-2021 13:52-0400 Systolic blood pressure 128 mm[Hg] Kodi Muniz MD Work Phone: [facility] 10-28-2021 09:49-0400 Body height 156.2 cm Zofia Donnelly SOFTWARE TOOLS ENGINEER.FASHION PATTERNMAKER Work Phone: [facility] 10-28-2021 09:49-0400 Body temperature 97.39 [degF] Zofia Donnelly SOFTWARE TOOLS ENGINEER.FASHION PATTERNMAKER Work Phone: [facility] 10-28-2021 09:49-0400 Body weight 87.77 kg [place] Donnelly SOFTWARE TOOLS ENGINEER.FASHION PATTERNMAKER Work Phone: [facility] 10-28-2021 09:49-0400 Diastolic blood pressure 76 mm[Hg] [place] Donnelly SOFTWARE TOOLS ENGINEER.FASHION PATTERNMAKER Work Phone: [facility] 10-28-2021 09:49-0400 Heart rate 75 /min Zofia Donnelly SOFTWARE TOOLS ENGINEER.FASHION PATTERNMAKER Work Phone: [facility] 10-28-2021 09:49-0400 Systolic blood pressure 139 mm[Hg] Zofia Donnelly SOFTWARE TOOLS ENGINEER.FASHION PATTERNMAKER Work Phone: [facility] Encounters Encounter Date Encounter Type Care Provider Facility Start: 04-26-2025 ambulatory [facility] Facility:[facility] Start: 04-26-2025 Evaluation and manag ement of inpatient [facility] Facility:[facility] Start: 04-24-2025 End: 04-24-2025 Emergency department patient visit [facility] Facility:[facility] Start: 04-13-2025 End: 04-13-2025 ambulatory [facility] Facility:[facility] Start: 04-07-2025 ambulatory [facility] Facility:[facility] Start: 04-07-2025 ambulatory [facility] Start: 04-07-2025 End: 04-07-2025 Evaluation and management of inpatient [facility] Facility:[facility] Start: 04-04-2025 ambulatory [facility] Facility:[facility] Start: 04-04-2025 Non-patient / Non-visit Dr. Bran gould MD -[facility] Start: 04-04-2025 End: 04-04-2025 Emergency department patient visit Dr. Teodoro Daley MD -Emergency Department Work Phone: Start: 01-03-2025 End: 01-03-2025 Patient encounter procedure [facility] [place] [facility] Work Phone: Start: 01-03-2025 End: [...] Medicine [facility] Start: 09-22-2024 End: 09-22-2024 ambulatory [facility] Facility:[facility] Start: 09-22-2024 End: 09-22-2024 Subsequent hospital visit by physician Screen Mammo [facility] Comment on above: Encounter for screen ing mammogram for breast cancer [Z12.31] Start: 09-14-2024 End: 09-14-2024 Telephone encounter Jennifer Santos MD Work Phone: Internal Medicine [facility] Comment on above: Orders Start: 05-11-2024 End: 05-11-2024 Telephone encounter Torrey Dawson PA-C Work Phone: [facility] Comment on above: Results Start: 05-10-2024 End: 05-10-2024 [facility] Facility:[facility] Start: 05-10-2024 End: 05-10-2024 Patient encounter procedure Torrey Dawson PA-C Work Phone: [facility] Comment on above: Acute UTI (Primary D x); Screening for STD (sexually transmitted disease); Vaginal irritation Start: 11-18-2023 Telephone encounter Julieta nunez APRN.FASHION PATTERNMAKER Work Phone: [facility] Comment on above: Results Start: 11-18-2023 End: 11-18-2023 Subsequent hospital visit by physician Xr [facility] Work Phone: Radiology Comment on above: Acute cough [R05.1] Start: 11-17-2023 End: 11-17-2023 Patient encounter procedure Elaine Lemus SOFTWARE TOOLS ENGINEER.FASHION PATTERNMAKER Work Phone: [facility] Comment on above: Sinobronchitis (Prim adeel Dx); Acute cough Start: 10-22-2023 Telephone encounter Cesar ann SOFTWARE TOOLS ENGINEER.FASHION PATTERNMAKER Work Phone: [facility] Comment on above: Results Start: 10-21-2023 End: 10-21-2023 Patient encounter procedure Torrey Dawson PA-C Work Phone: [facility] Comment on above: Vaginal itching (Bailee bahman Dx) Start: 09-30-2023 End: 09-30-2023 Subsequent hospital visit by physician Us [facility] Work Phone: Radiology Comment on above: Abnormal mammogram o f left breast [R92.8] Start: 09-07-2023 End: 09-07-2023 Subsequent hospital visit by physician Screen Mammo [facility] Comment on above: ER+ (estrogen recept or positive status) [Z17.0] Start: 09-04-2023 Telephone encounter Ashlyn cancino SOFTWARE TOOLS ENGINEER.REGISTERED DIETETIC TECHNICIAN Work Phone: Mammogram Comment on above: Orders Start: 09-01-2023 Telephone encounter Jennifer elam MD Work Phone: Family [facility] Comment on above: Orders Start: 08-31-2023 Telephone encounter Zofia torres SOFTWARE TOOLS ENGINEER.FASHION PATTERNMAKER Work Phone: Hematology/Oncology Start: 08-28-2023 End: 08-28-2023 Emergency department patient visit LENA JIMENEZ MD Facility:[facility] Start: 08-28-2023 End: 08-28-2023 Emergency department patient visit LENA JIMENEZ MD [facility] Start: 08-28-2023 End: 08-28-2023 Emergency department patient visit [facility] Work Phone: Start: 08-28-2023 End: 08-28-2023 Patient encounter procedure Julieta Oreilly SOFTWARE TOOLS ENGINEER.FASHION PATTERNMAKER Work Phone: [facility] Comment on above: Blurred vision, righ t eye (Primary Dx) Start: 05-26-2023 End: 05-27-2023 [facility] Start: 05-21-2023 End: 05-21-2023 Patient encounter procedure Yakaov Richter MD Work Phone: [facility] Comment on above: Lip swelling (Primar y Dx) Angioedema of lips, subsequent encounter (Primary Dx) Start: 05-08-2023 End: 05-08-2023 Emergency department patient visit MISHEL PEREZ DO Facility:[facility] Start: 05-07-2023 End: 05-07-2023 Emergency department patient visit MISHEL PEREZ DO [facility] Start: 11-17-2022 ambulatory Kelly Minaya MA [facility] Comment on above: Population Health Na vigation Outreach ([employer] [facility] Gaps ) Start: 09-04-2022 Documentation procedure Mammog day Coordinator [facility] Start: 09-04-2022 Letter encounter Mammography Coordinator [facility] Department Start: 09-04-2022 Telephone encounter Zofia torres SOFTWARE TOOLS ENGINEER.FASHION PATTERNMAKER Work Phone: Hematology/Oncology Comment on above: Results Start: 09-03-2022 End: 09-03-2022 Subsequent hospital visit by physician Screen Mammo [facility] Comment on above: 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] Start: 08-18-2022 Telephone encounter Zofia torres SOFTWARE TOOLS ENGINEER.FASHION PATTERNMAKER Work Phone: Hematology/Oncology Comment on above: Orders (Mammogram Sc reening) Start: 06-11-2022 ambulatory Jennifer Rhodes Work Phone: Internal Medicine [place] Comment on above: Medication Question Start: 05-16-2022 End: 05-16-2022 Patient encounter procedure Jennifer Santos MD Work Phone: [facility] [place] Comment on above: Recurrent deep vein thrombosis [...] Jennifer elam MD Work Phone: Internal Medicine [place] Comment on above: Medication Question Swelling / itching i n left foot Start: 03-15-2022 Refill Jennifer Rhodes Work Phone: Internal Medicine [place] Comment on above: Refill Request Start: 03-03-2022 End: 03-03-2022 Patient encounter procedure Jennifer Santos MD Work Phone: Internal Medicine [place] Comment on above: Anxiety (Primary Dx) ; DVT (deep vein thrombosis) in ; Hyperlipidemia with target low density lipoprotein (LDL) cholesterol less than 130 mg/dL Start: 03-02-2022 End: 03-02-2022 Emergency department patient [facility]. [facility] Start: 02-18-2022 Non-patient / Non-visit Dr. Mena Santos Work Phone: [facility] Start: 02-18-2022 End: 02-18-2022 [facility] Start: 02-07-2022 Telephone encounter Torrey frank PA-C Work Phone: [facility] Comment on above: Results Start: 02-07-2022 End: 02-07-2022 Patient encounter procedure Torrey Dawson PA-C Work Phone: [facility] Comment on above: Left leg swelling (P rimary Dx) Start: 01-25-2022 End: 01-25-2022 Patient encounter procedure Zee León APRN.FASHION PATTERNMAKER Work Phone: [facility] Comment on above: Urinary frequency [...] Riley RN He matology/Oncology Comment on above: General Ii Farmworker - O ther (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 ) Start: 10-28-2021 End: 10-28-2021 ambulatory Zofia Donnelly APRN.FASHION PATTERNMAKER Work Phone: Hematology/Oncology Comment on above: 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) (Primary Dx); Cellulitis of axillary region Start: 10-28-2021 End: 10-28-2021 Patient encounter procedure Zofia Donnelly APRN.FASHION PATTERNMAKER Work Phone: 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] Start: 05-31-2021 Telephone encounter Jennifer elam MD Work Phone: Internal Medicine [place] Comment on above: Patient Update Procedures Date [...] exam ches t 2 views Elaine Lemus APRN.FASHION PATTERNMAKER Work Phone: Start: 10-21-2023 BACTERIAL VAGINOSIS NAAT Torrey Dawson PA-C Work Phone: Start: 10-21-2023 Iadna trichomonas va ginal[place] amplified probe tech Torrey Dawson PA-C Work Phone: Start: 10-21-2023 Urnls dip stick/tabl et rgnt auto w/o microscopy Torrey Dawson PA-C Work Phone: Start: 09-30-2023 Us breast uni real t joi with image limited Ashlyn Roger SOFTWARE TOOLS ENGINEER.REGISTERED DIETETIC TECHNICIAN Work Phone: Start: 09-30-2023 Digital breast tomosynthesis unilateral Ashlyn Roger SOFTWARE TOOLS ENGINEER.REGISTERED DIETETIC TECHNICIAN Work Phone: Start: 09-03-2022 BARBARA SCREENING W EL Da inge Donnelly SOFTWARE TOOLS ENGINEER.FASHION PATTERNMAKER Work Phone: Start: 09-03-2022 Mammography Zofia torres SOFTWARE TOOLS ENGINEER.FASHION PATTERNMAKER Work Phone: Start: 01-25-2022 Urnls dip stick/tabl et rgnt auto w/o microscopy Zee León SOFTWARE TOOLS ENGINEER.FASHION PATTERNMAKER Work Phone: Start: 10-28-2021 Adult depression scr eening assessment Zofia Donnelly SOFTWARE TOOLS ENGINEER.FASHION PATTERNMAKER Work Phone: Start: 09-02-2021 End: 09-02-2021 Screening mammography bi 2-view breast inc cad Zofia Donnelly SOFTWARE TOOLS ENGINEER.FASHION PATTERNMAKER Work Phone: Start: 09-06-2020 Adult depression scr eening assessment [facility] Start: 08-23-2018 Lipid 1996 panel - S daniel or Plasma [facility] Start: 08-08-2014 Colonoscopy Screen Wst r Plan of Treatment Date Care Activity Detail Author Start: 05-22-2026 Diabetes Screening Diabetes Screenin g [facility] Start: 09-22-2025 Screening for malign ant neoplasm of breast Mammogram Screening [facility] Start: [facility] Start: 04-07-[facility]25 Non-patient / Non-visit Non-patient / Non-visit -[facility] Start: 04-07-2025 MRI of brain without contrast Brain without Contrast [facility] Start: 04-07-2025 Following clinical pathway protocol [facility] Start: 04-07-2025 Cardiac monitoring [facility] Start: 04-07-[address] [facility] Start: 04-07-2025 Consultation [facility] Start: 04-07-[address] [facility] Start: 04-07-2025 Elevation of head of bed [facility] Start: 04-07-2025 Exercises [facility] Start: 04-07-[address] [facility] Start: 04-07-[address] [facility] Start: 04-07-2025 Patient referral to dietitian [facility] Start: 04-07-2025 Referral for physica l therapy [facility] Start: 04-07-2025 Referral to occupati onal therapist [facility] Start: 04-07-2025 Referral to service [facility] Start: 04-07-[address] [facility] Start: 04-07-2025 Telemedicine consult ation with patient [facility] Start: 04-07-2025 Tobacco use cessatio n education [facility] Start: 04-07-2025 End: 04-07-2025 [facility] Start: 04-07-[address] [facility] Start: 04-07-2025 Admission procedure [facility] Start: 04-07-2025 End: 04-07-2025 Evaluation and management of inpatient Confusion -Progressive Care Unit Work Phone: Start: 04-07-2025 CT angiography of he ad and neck CTA Head AND Neck W/ Contrast [facility] Start: 04-07-2025 CT of head without contrast Brain/Head without Contrast [facility] Start: 04-07-2025 [facility] Start: 04-04-2025 Emergency department visit moderate severity EMERGENCY DEPT VISIT LOW MDM [facility] Start: 04-04-2025 [facility] Start: 2025 RSV Vaccine (1 - 1-d ose 75+ series) RSV Vaccine (1 - 1-dose 75+ series) [facility] Start: 02-13-2025 Influenza vaccination [facility] Start: 09-22-2024 End: 09-22-2024 Patient encounter procedure 09/22/2024 9:50 AM EDT Appointment Mammogram [address] [place] [address] yearly mammogram with el Mammogram Comment on above: yearly mammogram wit h el Start: 09-06-2024 Screening for malign ant neoplasm of breast Mammogram Screening [facility] Start: 08-08-2024 Colonoscopy COLONOSCOPY [facility] Start: 08-08-2024 COLORECTAL CANCER SCREENING COLORECTAL CANCER SCREENING [facility] Start: 08-08-2024 Screening for malign ant neoplasm of colon [facility] Start: 06-15-2024 Advance Directive Discussion Advance Directive Discussion [facility] Start: 06-15-2024 Medicare Advantage A nnual Wellness Visit Medicare Advantage Annual Wellness Visit [facility] Start: 02-14-2024 Covid-19 Vaccine () Covid-19 Vaccine () [facility] Start: 02-14-2024 Influenza vaccination [facility] Start: 09-04-2023 Mammography [facility] Start: 09-04-2023 Screening for malign ant neoplasm of breast Mammogram Screening [facility] Start: 08-24-2023 Lipid 1996 panel - S daniel or Plasma Lipid Screening [facility] Start: 08-24-2023 Lipid panel Lipid Screening [facility] Start: 08-24-2023 LIPID SCREEN LIPID SCREEN [facility] Start: 06-15-2023 Advance Directive Discussion Advance Directive Discussion [facility] Start: 06-15-2023 Behavioral Health Screening Behavioral Health Screening [facility] Start: 06-15-2023 Depression Assessment Depression Ass essment [facility] Start: 05-27-2023 [facility] Start: 05-21-2023 End: 08-20-2023 Comprehensive metabolic 2000 panel - Serum or Plasma COMP METABOLIC PANEL Lab Routine Angioedema of lips, subsequent encounter Expected: 05/21/2023, Expires: 08/20/2023 [facility] Work Phone: Comment on above: Expected: 05/21/2023 , Expires: 08/20/2023 Start: 05-04-2023 Urine microalbumin profile DTaP,Tdap,Td Vaccine (1 - Tdap) [facility] Start: 02-13-2023 Covid-19 Vaccine ( season) Covid-19 Vaccine () [facility] Start: 02-13-2023 Influenza vaccination C [facility] Start: 10-28-2022 Adult depression screening assessment DEPRESSION SCREENING [facility] Start: 09-02-2022 Mammography MAMMOGRAM [facility] Start: 06-15-2022 ADVANCE DIRECTIVE DISCUSSION ADVANCE DIRECTIVE DISCUSSION [facility] Start: 06-15-2022 DEPRESSION ASSESSMENT DEPRESSION ASS ESSMENT [facility] Start: 03-03-2022 End: 05-03-2022 Basic metabolic 2000 panel - Serum or Plasma BASIC METABOLIC PNL Lab Routine Hyperlipidemia with target low density lipoprotein (LDL) cholesterol less than 130 mg/dL Expected: 03/03/2022, Expires: 05/03/2022 [facility] Work Phone: Comment on above: Expected: 03/03/2022 , Expires: 05/03/2022 Start: 03-03-2022 End: 05-03-2022 CBC W Auto Differential panel - Blood CBC + DIFF Lab Routine DVT (deep vein thrombosis) in Expected: 03/03/2022, Expires: 05/03/2022 [facility] Work Phone: Comment on above: Expected: 03/03/2022 , Expires: 05/03/2022 Start: 03-03-2022 End: 05-03-2022 Lipid 1996 panel - Serum or Plasma LIPID PANEL BASIC Lab Routine Hyperlipidemia with target low density lipoprotein (LDL) cholesterol less than 130 mg/dL Expected: 03/03/2022, Expires: 05/03/2022 [facility] Work Phone: Comment on above: Expected: 03/03/2022 , Expires: 05/03/2022 Start: 02-13-2022 Influenza vaccination INFLUENZA (#1) [facility] Start: 09-06-2021 Adult depression screening assessment DEPRESSION SCREENING [facility] Start: 08-23-2021 DIABETES SCREEN DIABETES SCREEN [facility] Start: 08-23-2021 Diabetes Screening Diabetes Screenin g [facility] Start: 08-03-2021 COVID-19 VACCINE (4 - Booster for Pfizer series) COVID-19 VACCINE (4 - Booster for Pfizer series) [facility] Start: 06-15-2021 ADVANCE DIRECTIVE DISCUSSION ADVANCE DIRECTIVE DISCUSSION [facility] Start: 06-15-2021 DEPRESSION ASSESSMENT DEPRESSION ASS ESSMENT [facility] Start: 05-28-2021 COVID-19 VACCINE (4 - Booster for Pfizer series) COVID-19 VACCINE (4 - Booster for Pfizer series) [facility] Start: 05-28-2021 COVID-19 VACCINE (4 - Pfizer series) COVID-19 VACCINE (4 - Pfizer series) [facility] Start: 07-13-2015 FECAL OCCULT BLOOD FECAL OCCULT BLOO D [facility] Start: 07-13-2015 Screening for malign ant neoplasm of colon Fecal Occult Blood [facility] Start: 2010 RSV Vaccine (1 - 1-d ose 60+ series) RSV Vaccine (1 - 1-dose 60+ series) [facility] Start: 02-21-2000 SHINGRIX VACCINE (1 of 2) FERRELL GRIX VACCINE (1 of 2) [facility] Start: 1995 COLOGUARD (FIT-DNA) COLOGUARD (FIT-D NA) [facility] Start: [address] COLONOGRAPHY [facility] Start: 1995 Screening for malign ant neoplasm of colon [facility] Start: 1995 SIGMOIDOSCOPY SIGMOIDOSCOPY [facility] Start: 1969 SHINGRIX VACCINE (1 of 2) FERRELL GRIX VACCINE (1 of 2) [facility] Start: 1969 Urine microalbumin profile [facility] Start: 02-21-1968 Depression Screening Depression Scre ening [facility] Start: 02-21-1968 HEPATITIS C SCREENING HEPATITIS C [facility] Start: 02-21-1968 Hepatitis C screening Hepatitis C [facility] Bacteria identified in Urine by Culture URINE CULTURE Microbiology Routine Urinary frequency Ordered: 01/25/2022 [facility] Work Phone: Comment on above: Ordered: 01/25/2022 Bacteria identified in Urine by Culture URINE CULTURE Microbiology Routine Acute UTI Ordered: 05/10/2024 [facility] Work Phone: Comment on above: Ordered: 05/10/2024 BACTERIAL VAGINOSIS AMPLIFICATION BACTERIAL VAGINOSIS AMPLIFICATION Lab Routine Acute vaginitis Ordered: 01/25/2022 [facility] Work Phone: Comment on above: Ordered: 01/25/2022 BACTERIAL VAGINOSIS NAAT BACTERI AL VAGINOSIS NAAT Lab Routine Screening for STD (sexually transmitted disease) 05/10/2024 1:17 PM EST [facility] ALBA / TRICHOMONA S AMPLIFICATION ALBA / TRICHOMONAS AMPLIFICATION Lab Routine Acute vaginitis Ordered: 01/25/2022 [facility] Work Phone: Comment on above: Ordered: 01/25/2022 ALBA/TRICHOMONAS NAAT ALBA /TRICHOMONAS NAAT Lab Routine Screening for STD (sexually transmitted disease) 05/10/2024 1:17 PM EST [facility] Chlamydia trachomatis+Neisseria gonorrhoeae DNA [Presence] in Unspecified specimen by RADHA with probe detection GONORRHEA/CHLAMYDIA NAAT Lab Routine Screening for STD (sexually transmitted disease) 05/10/2024 1:17 PM EST [facility] Comprehensive metabo lic 2000 panel - Serum or Plasma COMP METABOLIC PANEL Lab Routine Angioedema of lips, subsequent encounter 05/22/2023 10:39 AM EST [facility] Work Phone: End: 09-30-2024 DBT Breast - bilateral screening BARBARA SCREENING W EL Radiology Routine ER+ (estrogen receptor positive status) Encounter for screening mammogram for breast cancer 1 Occurrences starting 09/01/2023 until 09/30/2024 [facility] Work Phone: Comment on above: 1 Occurrences starti ng 09/01/2023 until 09/30/2024 DBT Breast - bilater al screening BARBARA SCREENING W EL Radiology Routine ER+ (estrogen receptor positive status) Encounter for screening mammogram for breast cancer 09/07/2023 2:25 PM EDT [facility] Work Phone: End: 10-14-2025 DBT Breast - bilateral screening BARBARA SCREENING W EL Radiology Routine Encounter for screening mammogram for breast cancer 1 Occurrences starting 09/14/2024 until 10/14/2025 [facility] Work Phone: Comment on above: 1 Occurrences starti ng 09/14/2024 until 10/14/2025 DBT Breast - bilater al screening BARBARA SCREENING W EL Radiology Routine Encounter for screening mammogram for breast cancer 09/22/2024 9:57 AM EDT [facility] Work Phone: Patient Education [facility] Work Phone: Patient referral [facility] Work Phone: End: 12-16-2024 XR Chest PA and Lateral XR CHEST 2V FRONTAL/LAT Radiology STAT Acute cough 1 Occurrences starting 11/17/2023 until 12/16/2024 [facility] Work Phone: Comment on above: 1 Occurrences starti ng 11/17/2023 until 12/16/2024 [facility] Immunizations Immunization Date Immunization Notes Care Provider Fa [facility] 05-03-2023 tetanus and diphther ia toxoids, adsorbed, preservative free, for adult use (5 Lf of tetanus toxoid and 2 Lf of diphtheria toxoid) Yaakov Richter MD Work Phone: [facility] 04-02-2021 COVID-19 vaccine, ag e 12+ yr ([employer] - PURPLE TOP) Screen [facility] 04-02-2021 influenza (aIIV4) vaccine, age 65+ yr, quadrivalent, PF (FLUAD QUAD) Yaakov Richter MD Work Phone: [facility] 04-02-2021 influenza, seasonal, injectable Screen [facility] 04-02-2021 influenza virus vacc ine, unspecified formulation Screen [facility] 09-13-2020 Covid (Pfizer) [facility] 08-23-2020 COVID-19 vaccine, ag e 12+ yr ([employer] - PURPLE TOP) Screen [facility] 02-28-2020 influenza, high-dose , quadrivalent vaccine (FLUZONE HIGH DOSE QUADRIVALENT) Screen [facility] 02-28-2020 pneumococcal polysaccharide vaccine, 23 valent Screen [facility] 03-28-2019 influenza, high dose seasonal, preservative-free Screen [facility] 04-18-2017 influenza, seasonal, injectable Screen [facility] 03-18-2016 influenza, high dose seasonal, preservative-free Screen [facility] 04-06-2015 influenza, high dose seasonal, preservative-free Screen [facility] 04-06-2015 pneumococcal conjuga te vaccine, 13 valent Screen [facility] Payers Date Payer Category Payer Self-pay [id number] 2023 Private Health Insurance 1 [id number] 2021 Medicare HUMANA MEDICARE HUMANA MEDICARE PPO [id number] 2021-Present [phone] [address] [place] [address] PPO [id number] 2021 Medicare HUMANA MEDICARE HUMANA MEDICARE PPO [id number] 2021- [phone] [place] [address] PPO [id number] 2021 Medicare (Managed Care) HUMANA EDICARE [id number] 2021 Private Health Insurance [id number] 2014 Medicaid MEDICAID [id number] 1950 Unknown [id number] 1950 Unknown [id number] Medicare MEDICARE PART A B [id number] Unknown [id number] Unknown [id number] Unknown [id number] Unknown [id number] Unknown [id number] Unknown [id number] Unknown [id number] 462 Unknown [id number] Unknown [id number] Unknown [id number] Social History Date Type Detail Facility Start: 08-27-2012 End: 08-28-2023 Tobacco smoking status DCIS Never smoked tobacco [facility] Work Phone: Start: 07-29-2021 End: 05-10-2024 Alcohol intake Current non-drinker of alcohol (finding) [facility] Start: 1950 Sex Assigned At Not on file [facility] Start: 08-23-2021 End: 05-16-2022 Exposure to SARS-CoV-2 (event) Not sure [facility] Start: 08-27-2012 End: 02-07-2022 Tobacco use and exposure Smokeless tobacco non-user [facility] Start: 02-18-2022 End: 04-07-2025 Tobacco smoking status NHIS Unknown if ever smoked [facility] Start: 01-23-2020 None [facility] Start: 01-23-2020 Alone [facility] Start: 1950 Sex Assigned At Female [facility] [place] Start: 02-21-2022 End: 03-03-2022 Exposure to SARS-CoV-2 (event) Yes [facility] Work Phone: Start: 11-26-2022 End: 09-07-2023 History of Social function [facility] Work Phone: Start: 11-26-2022 End: 09-07-2023 Tobacco use panel [facility] Work Phone: Adult Depression Screening Assessment 6 [facility] Work Phone: Goals Date Patient Goal Desired Activity /State Functional Status Date Assessment Result Facility 04-07-2025 Functional status Standby Assist [facility] Work Phone: 08-28-2023 Functional Status ID band on, Call device within reach, Bed in low position, Wheels locked, Safety level maintained [facility] 05-07-2023 Functional Status Resting [facility] 09-16-2018 Are you deaf, or do you have serious difficulty hearing No 09/16/2018 5:47 PM Xavier Sauceda III, MD No [facility] 09-16-2018 Are you blind, or do you have serious difficulty seeing, even when wearing glasses No 09/16/2018 5:47 PM Xavier Sauceda III, MD [facility] 09-16-2018 Do you have serious difficulty walking or climbing stairs No 09/16/2018 5:47 PM Xavier Sauceda III, MD No [facility] 09-16-2018 Do you have difficul ty dressing or bathing No 09/16/2018 5:47 PM EDT Xavier Poon III, MD No [facility] 09-16-2018 Because of a physica l, mental, or emotional condition, do you have difficulty doing errands alone such as visiting a physician's office or shopping No 09/16/2018 5:47 PM EDT Xavier Poon III, MD No [facility] Mental Status Date Assessment Result Facility 04-07-2025 Cognitive function Voice/Name [facility] Work Phone: 08-28-2023 Mental Status Oriented x 4 [facility] 05-07-2023 Mental Status Oriented x 4 [facility] 09-16-2018 Because of a physica l, mental, or emotional condition, do you have serious difficulty concentrating, remembering, or making decisions No 09/16/2018 5:47 PM EDT Xavier Poon III, MD No [facility] Clinical Notes 08-09-2014 to 04-13-2025 Note Date & Type Note Facility 04-13-2025 Note HNO ID: [id number] Author: KELLE PETER APRN.FASHION PATTERNMAKER Service: ? Author Type: Nurse Practitioner Type: Progress Notes Filed: 04/17/2025 08:20 Note Text: CC: Patient presents with: Recheck: [facility] ER follow up, DVT in leg HPI Ilene Shaw is a 75 year old female who presents today for follow up. Recording using Arkm[employer] software for draft documentation of the visit was discussed with the patient/authorized leasing representative; all questions welcomed and answered. Patient/authorized leasing representative agreed to proceed Ilene is a [...] Screening Discontinued DATA REVIEWED: Outside chart from [facility] reviewed. Assessment/Plan 1. [...] kidney function st (more content not included)... [facility] 04-07-2025 Note [facility] Medical Records Department [address] [place] [address] Discharge Summary 04/07/25 1616 MR#: [id number] Acct: [id number] Name: ILENE SHAW Rep #: [id number] : 1950 75 From: Bran Courtney DO PCP: Dr. Jennifer Santos MD Status:ADM IN Location: [address] Providers Date of Admission: 04/07/25 Primary [...] (74 tabs) tablets in a dose pack ([employer] DVT-PE Treat 30D Start) See Rx Instructions [...] % (Auto) 59.7, Lymph % (Auto) 25.2, [place] % (Auto) 6.5, Eos % (Auto) 7.8 H, Baso % (Auto) 0.6, Absolute Neuts (auto) 5.1, Absolute Lymphs (auto) (more content not included)... [facility] 04-04-2025 Discharge summary Note Date/Time April 04, 2025 1:48pm [facility] Medical Records Department [address] [place] [address] Emergency Department Summary 04/04/25 MR#: [id number] Acct: [id number] Name: ILENE SHAW Rep #:[id number] : 1950 75 From: Teodoro Daley [...] housing: house Smoking Status: Never smoker ROS [facility] ED Cardiovascular Cardiovascular: Denies chest pain, [...] 72.5 H Lymph % (Auto) 14.8 L [place] % (Auto) 5.3 Eos % (Auto) 6.3 [...] elevated in the emergency department. Print Language: Turkish Disposition Disposition: Home, Self Care What to do if you have Problems For any increased pain, shortness of breath, bleeding, nausea or vomiting, chestpain, or any unexpected problems, contact your Primary Care Provider. Call [facility] ([phone]) or report to the closest Emergency Room. Call 911 if necessary. 04/04/25 1248 <Electronically signed by Teodoro Daley MD> Cosigner Signature (if applicable): CC: Dr. Jennifer Santos MD ~ Signed [facility] Work Phone: 1(315) 227-127510-21-2025 Discharge summary [facility] Medical Records Department [address] [place] [address] Emergency Department Summary 04/04/25 MR#: [id number] Acct: [id number] Name: ILENE SHAW Rep #:[id number] : 1950 75 From: Teodoro Daley [...] 72.5 H Lymph % (Auto) 14.8 L [place] % (Auto) 5.3 Eos % (Auto) 6.3 [...] prescription. She was instructed follow-up with [facility] since she will need to be [facility] for 3 to 6 months. Discharge Plan [...] elevated in the emergency department. Print Language: Turkish Disposition Disposition: Home, Self Care What to do if you have Problems For any increased pain, shortness of breath, bleeding, nausea or vomiting, chestpain, or any unexpected problems, contact your Primary Care Provider. Call [facility] ([phone]) or report tothe closest Emergency Room. Call 911 if necessary. 04/04/25 1248 Cosigner Signature (if applicable): CC: Dr. Jennifer Santos MD ~ Signed [facility]07-22-2025 Evaluation note* Diagnosis Onset Date Resolution [...] posterior cerebral artery deleted April 07 3:39am [facility] Work Phone: 1(990) 409-784907-08-2025 NoteHNO ID: [id number] Author: ?, ?, ? Service: ? Author Type: ? Type: Progress Notes Filed: 12/20/2024 09:23 Note Text: 3rd attempt LVM and [facility] History of Present illness Narrative* Nicki Conley - 12/20/2024 9:23 AM EDT 3rd attempt LVM and mailed letter * Nicki Conley - 12/07/2024 10:42 AM EDT 2nd attempt LVM to schedule colonoscopy * Angelica Triplett - 11/30/2024 11:46 AM EDT 1'st attempt to schedule est well visit and open access colonoscopy. LVM to return call documented in this encounterPaulding County Hospital06-25-2025 NoteHNO ID: [id number] Author: ?, ?, ? Service: ? Author Type: ? Type: Progress Notes Filed: 12/20/2024 09:23 Note Text: 2nd attempt LVM to schedule colonoscopyTri[facility]06-18-2025 Note HNO ID: [id number] Author: ?, ?, ? Service: ? Author Type: ? Type: Progress Notes Filed: 12/20/2024 09:23 Note Text: 1'st attempt to schedule est well visit and open access colonoscopy. LVM to return callTri[facility]06-17-2025 Instructions* Patient Instructions* Lisa Whalen RN [...] am on dialysis? A: Please consult your pickup driver prior to scheduling to get instructions pertinent to you. In general, dialysis patients take the [facility] bowel prep and have the procedure same [...] to inadequate prep quality. documented in this encounterPaulding County Hospital06-17-2025 NotePatient Outreach (ASWSTR) ILENE SHAW ([id number]) 1950 F Date Time Provider Department 11/29/24 [...] Diabetic patients buy sugar-free, (more content not included)...[facility]04-10[facility] History of Present illness Narrative* Colin [...] PATIENT PRESENTS WITH AN IMPLANTABLE OR ATTACHED COAL WASHER: No RADIOLOGY DEPARTMENT: Mammography PERIPHERAL IV DATA: Not applicable SIGNED BY: Natalee Peterson September 22, 2024 10:33 AM documented in this encounterPaulding County Hospital04-10-2025 NoteHNO ID: [id number] Author: COLIN OZUNA Mammo Tech Service: ? Author Type: Deputy Clerk Of Superior Court Type: Progress Notes Filed: 09/22/2024 10:33 Note [...] PATIENT PRESENTS WITH AN IMPLANTABLE OR ATTACHED COAL WASHER: No RADIOLOGY DEPARTMENT: Mammography PERIPHERAL IV DATA: Not applicable SIGNED BY: Natalee Peterson September 22, 2024 10:33 [facility]04-02-2025 Telephone encounter Note* Telephone Encounter - Kelle Peter APRN.CNP - 09/14/2024 4:48 PM EDT Order placed Kelle Peter APRN.CNP [facility]04-02-2025 Miscellaneous Notes* Telephone Encounter - Kelle Peter APRN.CNP - 09/14/2024 4:48 PM EDT Order placed Kelle Peter APRN.CNP * Telephone Encounter - Soraya Pena - 09/14/2024 1:02 PM EDT Patient calling in for her yearly mammogram with el. Patient is scheduled, she just needs an order. Please review Soraya Pena September 14, 2024 1:03 PM documented in this encounterPaulding County Hospital04-02-2025 Telephone encounter Note * Telephone Encounter - Soraya Pena - 09/14/2024 1:02 PM EDT Patient calling in for her yearly mammogram with el. Patient is scheduled, she just needs an order. Please review Soraya Pena September 14, 2024 1:03 PM [facility]11-27-2024 Telephone encounter Note* Telephone Encounter - Claudette Dial LPN - 05/11/2024 7:07 PM EST Patient given results and verbalized understanding of instructions given. Claudette Dial LPN [facility]11-27-2024 Miscellaneous Notes* Telephone Encounter - Claudette [...] PCP if no improvement. documented in this encounterPaulding County Hospital11-27-2024 Telephone encounter Note * Telephone Encounter - Montse Ramirez LPN - 05/11/2024 9:48 AM EST Left message for patient to return call for results.Montse Ramirez LPN [facility]11-27-2024 Telephone encounter Note* Telephone Encounter - Torrey Dawson PA-C - 05/11/2024 8:41 AM EST Please call and let patient know her STD testing was negative. She did test positive for yeast. I did send in medication for this. Urine culture is still pending will call as needed. Continue antibiotic as well. Follow-up with PCP if no improvement. [facility]11-26-2024 NoteHNO ID: [id number] Author: TORREY DAWSON PA-C Service: ? Author Type: Physician Service Technician Type: Progress Notes Filed: 05/10/2024 14:21 Note [...] Exam Vitals reviewed. Exam conducted with a warehouse clerk present (Claudette ARTHUR). Constitutional: Appearance: Normal appearance. [...] N89.8 Given Mycolog cream for irritation. [facility]11-26-2024 History of Present illness Narrative* Torrey Dawson PA-C - 05/10/2024 2:17 PM EST This note was created using Deep Glintriter. Subjective Ilene Shaw is a 74 year [...] Exam Vitals reviewed. Exam conducted with a warehouse clerk present (Claudette ARTHUR). Constitutional: Appearance: Normal appearance. [...] irritation. Torrey Dawson PA-C documented in this encounterPaulding County Hospital06-05-2024 Telephone encounter Note * Telephone Encounter - Norma Tatum MA - 11/18/2023 1:08 PM EDT Patient given results and verbalized understanding of instructions given. Norma Tatum MA [facility]06-05-2024 Miscellaneous Notes* Telephone Encounter - Norma Tatum MA - 11/18/2023 1:08 PM EDT Patient given results and verbalized understanding of instructions given. Norma Tatum MA * Telephone Encounter - Julieta Oreilly APRN.CNP - 11/18/2023 11:32 AM EDT CXR negative. Please notify patient. Complete ATB and follow up with PCP as needed. Please advise patient. documented in this encounterPaulding County Hospital06-05-2024 Telephone encounter Note * Telephone Encounter - Julieta Oreilly APRN.CNP - 11/18/2023 11:32 AM EDT CXR negative. Please notify patient. Complete ATB and follow up with PCP as needed. Please advise patient. [facility] Work Phone: [phone]) 670-100406-05-2024 History of Present illness Narrative* Mary Castro [...] PATIENT PRESENTS WITH AN IMPLANTABLE OR ATTACHED COAL WASHER: No RADIOLOGY DEPARTMENT: General X-ray: Exam(s) Completed: Chest X-Ray PERIPHERAL IV DATA: Not applicable SIGNED BY: RT Ravi(R) November 18, 2023 10:45 AM documented in this encounterPaulding County Hospital06-04-2024 History of Present illness Narrative* Elaine Lemus APRN.FASHION PATTERNMAKER - 11/17/2023 6:40 PM EDT Subjective HPI [...] Discussed expected course of illness Elaine Lemus APRN.FASHION PATTERNMAKER documented in this encounterPaulding County Hospital06-04-2024 Instructions* Patient Instructions* Elaine Lemus APRN.LACY [...] days of proper treatment. documented in this encounterPaulding County Hospital05-09-2024 Telephone encounter Note * Telephone Encounter - Julieth Houston MA - 10/22/2023 8:28 AM EDT Patient returned call, notified of results, states symptoms are improving with cream and will follow up for any persistent symptoms. Julieth Houston MA [facility]05-09-2024 Miscellaneous Notes* Telephone Encounter - Julieth [...] I will order diflucan. documented in this encounterPaulding County Hospital05-09-2024 Telephone encounter Note * Telephone Encounter - Julieth Houston MA - 10/22/2023 8:23 AM EDT Left VM instructing patient to return call to discuss. Julieth Houston MA [facility]05-09-2024 Telephone encounter Note* Telephone Encounter - Cesar Ralph APRN.CNP - 10/22/2023 7:12 AM EDT Please notify labs were positive for yeast. The mycolog cream ordered may be sufficient to treat. Ask how s/s area. If s/s persisting I will order diflucan. [facility] Work Phone: [phone]) 911-698705-08-2024 History of Present illness Narrative* Torrey Dawson PA-C - 10/21/2023 12:47 PM EDT This note was created using Deep Glintriter. Subjective Ilene Shaw is a 73 year [...] NAAT Torrey Dawson PA-C documented in this encounterPaulding County Hospital04-17-2024 History of Present illness Narrative* Prashanth [...] PATIENT PRESENTS WITH AN IMPLANTABLE OR ATTACHED COAL WASHER: No RADIOLOGY DEPARTMENT: Mammography PERIPHERAL IV DATA: Not applicable SIGNED BY: Natalee Malin September 30, 2023 2:39 PM documented in this encounterPaulding County Hospital03-25-2024 History of Present illness Narrative* Hannah [...] PATIENT PRESENTS WITH AN IMPLANTABLE OR ATTACHED COAL WASHER: No RADIOLOGY DEPARTMENT: Mammography PERIPHERAL IV DATA: Not applicable SIGNED BY: Nory Goodeo Maciel September 07, 2023 1:50 PM documented in this encounterPaulding County Hospital03-22-2024 Miscellaneous Notes* Telephone Encounter - Ashlyn Roger APRN.CNS - 09/04/2023 8:08 AM EDT The order is already filed, do I need to re-enter it? * Telephone Encounter - Colin Ozuna Mammo Maciel - 09/04/2023 7:51 AM EDT Can you release the mammogram order? Pt scheduled with us 09/06. Thanks a million documented in this encounterPaulding County Hospital03-19-2024 Miscellaneous Notes* Telephone Encounter - Mattie [...] ordered. Micaela Beaulieu LPN documented in this encounterPaulding County Hospital03-18-2024 Miscellaneous Notes* Telephone Encounter - Bonnie Ibarra LPN - 08/31/2023 2:19 PM EDT Detailed message left on patient's identified VM. Bonnie Ibarra LPN * Telephone Encounter - Zofia Donnelly APRN.CNP - 08/31/2023 2:07 PM EDT Pt. can have her yearly breast exam/mammogram ordered by PCP or PIERCE AND SHAVE PRESS OPERATOR at this point. Follow up here as needed. Thank you. Zofia Donnelly APRN.FASHION PATTERNMAKER * Telephone Encounter - Bonnie Ibarra LPN [...] follow up with you. documented in this encounterPaulding County Hospital03-15-2024 Hospital Discharge instructions Patient Education 08/28/2023 [...] bleeding from other parts of your body [id number] The [employer]. [address] [place] [address]. All rights reserved. This information is not intended as a substitute for professional medical care. Always follow yourhealthcare professional's instructions. Follow Up Care 08/28/2023 18:24:22 With:JENNIFER SANTOS MD Address: [facility] [place] [address]- When:2-[address] [facility] 03-15-2024 Note Discharge Instructions Thank you for allowing [facility] to assist you with your healthcare needs. The following is importantdischarge information regarding your hospital visit. Diagnosis from Today's Visit Eye problem Subconjunctival hemorrhage What to Do Next Instructions from Your Care Team No qualifying data available. Post Acute Orders No qualifying data available. You Need to Schedule the Following Appointments Follow Up with JENNIFER SANTOS MD When Within 2-4 days Where: [address] [place] [address]- Allergies ampicillin predniSONE Medications Please ask your [...] bleeding from other parts of your body [id number] The [employer]. [address] [facility], [place] [address]. All rights reserved. This information is not intended as a substitute for professional medical care. Always follow yourhealthcare professional's instructions. Additional Information VACCINATE! IT SAVES LIVES! Members of the community who have not yet received the COVID-19 vaccine and would like to receive it can visit one of [facility] vaccine clinics. There are many vaccine clinic locations within the [facility]. For locations and available times, please visit www.gettheshot.coronavirus.[place].gov/. It is important to note that some COVID mobile vaccine clinics are held outdoors and may be canceled in rainy or stormy conditions. To learn more about pediatric vaccinations (ages 5-11), we invite you to visit the [facility] webpage. https://www.akronSchoolOuts.org/pages/7233-Ypsev-Vamrgytagjt-Lsiujzmems-Zkimw-Kmc stions.htmlTo learn more about the COVID-19 vaccine, we invite you to visit the CDC website for a list of frequently asked questions. https://www.cdc.gov/coronavirus/2019-ncov/vaccines/faq.html [facility] Patient Portal Access Instructions: Stay connected with your healthcare team and access your personal medical information anytime with the [facility] Patient Portal. If you would like a full copy of your medical records please contact the [facility] Medical Records Department Thursday through Thursday between 8a.m. and 4:30p.m. Please follow the directions below to access the portal: 1.Access the email account you provided upon registration to the hospital.2.Look for an invitation email from [facility].3.Open the email and access the invitation link: Accept Invitation to [facility]4.Fill in the required ness to create your account. Sign into [email or web address] with your username and password that you [...] you will allow to register on the [facility] Patient Portal for access to your information. You can also access the [facility] Patient Portal on the Boke. Simply click on "Health Records" under "HealthData" and then click on the Cloudwords logo. HOW TO SAFELY DISPOSE OF PRESCRIPTION [...] Call your local pharmacy or go to [email or web address]://[email or web address]/[email or web address] to find one close to you.3.Make use of household items: Use cat litter or old coffee grounds to dispose medications if other options arenot available. Mix your drugs with these household products, seal them in an airtight container andthrow it into the garbage. Call [facility]: [phone] to be sure your drugs can be [...] aware that I should contact my doctor. Patient/Member Services Coordinator Signature: Date/Time: Relationship to Patient: Witness Name/Signature: Date/Time: [facility]03-15-2024 History of Present illness Narrative * [...] day Referred to ED documented in this encounterPaulding County Hospital12-08-2023 History of Present illness Narrative* Rolf Burger MD - 05/22/2023 12:49 PM EST This note was created using NoteWriter. Subjective Patient presents with: ER F/U: [facility] 05/07/23- facial swelling PCP MD Stella Chisholmprmea Shaw is a 73 year old female who developed facial and upper lip swelling . She went to the [facility] ER, and was treated with [...] month. Rolf Burger MD documented in this encounterPaulding County Hospital12-07-2023 History of Present illness Narrative* Yaakov Richter MD - 05/21/2023 1:55 PM EST [facility] Triage Note: [facility] with complaint of lip swelling. She had been treated in the ERfor lip and face swelling 05/07/23 with medrol and benadryl. She had left lip swelling returned yesterday. It is improving today. No shortness of breath or wheezing. Scheduled with internal medicine for ER follow up today. documented in this encounterPaulding County Hospital11-24-2023 Hospital Discharge instructions Patient Education 05/07/2023 [...] products Chemicals or dyes in clothing, linen, vp strategy, hair dyes, soaps, iodine Many viruses and [...] damage the skin. Oral diphenhydramine is an scwn-gby-vprimxk antihistamine sold at pharmacy and grocery stores. [...] hours, or as directed by your provider [id number] The DISKOV[employer]. [address] [place] [address], [place] [address]. All rights reserved. This information is not intended as a substitute for professional medical care. Always follow yourhealthcare professional's instructions. Follow Up Care 05/07/2023 22:34:33 With:JENNIFER SANTOS MD Address: [address] [place] [address]- When:2-[address] [facility] 11-23-2023 Note Discharge Instructions Thank you [...] MD When Within 2-4 days Where: [address] [place] [address]- Allergies ampicillin predniSONE Medications Please ask your [...] expected to produce life threatening symptoms. However, intermediate project manager use of high steroid doses can lead [...] may report side effects to FDA at 1-882-SHL-6355. What other drugs will affect methylprednisolone? Other drugs may interact with methylprednisolone, including prescription and jpso-dwl-tvxppac medicines, vitamins, and herbal products. Tell each [...] to ensure that the information provided by [employer]. ('[employer]') is accurate, up-to-date, and complete, but no guarantee is made to that effect. Drug information contained herein may be time sensitive. Queryday information has been compiled for use by healthcare practitioners and consumers in the [place] and therefore [employer] does not warrant that uses outside of the [place] are appropriate, unless specifically indicated otherwise. [employer] drug information does not endorse drugs, diagnose patients or recommend therapy. [employer] drug information isan informational resource designed to [...] effective or appropriate for any given patient. [employer] does not assume any responsibility for any aspect of healthcare administered with the aid of information [employer] provides. The information contained herein is not intended to cover all possible uses, directions, precautions, warnings, drug interactions, allergic reactions, or adverse effects. If you have questions about the drugs you are taking, check with your doctor, nurse or pharmacist. Copyright 5272-7574 [employer]. Version: 9.01. Revision Date: 02/11/2017. Education Materials [...] products Chemicals or dyes in clothing, linen, vp strategy, hair dyes, soaps, iodine Many viruses and [...] damage the skin. Oral diphenhydramine is an llfl-yla-qhifuow antihistamine sold at pharmacy and grocery stores. [...] hours, or as directed by your provider 5730-7389 The DISKOV[employer]. [address] [place] [address], [place] [address]. All rights reserved. This information is not intended as a substitute for professional medical care. Always follow yourhealthcare professional's instructions. Additional Information VACCINATE! IT SAVES LIVES! Members of the community who have not yet received the COVID-19 vaccine and would like to receive it can visit one of [facility] vaccine clinics. There are many vaccine clinic locations within the [facility]. For locations and available times, please visit www.gettheshot.coronavirus.[place].gov/. It is important to note that some COVID mobile vaccine clinics are held outdoors and may be canceled in rainy or stormy conditions. To learn more about pediatric vaccinations (ages 5-11), we invite you to visit the [facility] webpage. https://www.[facility].org/pages/3975-Hzpvo-Xwkratsmrhj-Quhitmlmkh-Cldyh-Ssb stions.htmlTo learn more about the COVID-19 vaccine, we invite you to visit the CDC website for a list of frequently asked questions. https://www.cdc.gov/coronavirus/2019-ncov/vaccines/faq.html [facility] Patient Portal Access Instructions: Stay connected with your healthcare team and access your personal medical information anytime with the [facility] Patient Portal. If you would like a full copy of your medical records please contact the [facility] Medical Records Department Thursday through Thursday between 8a.m. and 4:30p.m. Please follow the directions below to access the portal: 1.Access the email account you provided upon registration to the [facility].2.Look for an invitation email from [facility].3.Open the email and access the invitation link: Accept Invitation to [facility]4.Fill in the required ness to create your account. Sign into [email or web address] with your username and password that you [...] you will allow to register on the [facility] Patient Portal for access to your information. You can also access the [facility] Patient Portal on the SAVORTEX inez. Simply click on "Health Records" under "HealthDaNanameue" and then click on the Brandi logo. [...] Call your local pharmacy or go to http://bit.Saborstudio/1D6Qk4x to find one close to you.3.Make use of household items: Use cat litter or old coffee grounds to dispose medications if other options arenot available. Mix your drugs with these household products, seal them in an airtight container andthrow it into the garbage. Call [facility]: [phone] to be sure your drugs can be [...] aware that I should contact my doctor. Patient/Member Services Coordinator Signature: Date/Time: Relationship to Patient: Witness Name/Signature: Date/Time: [facility]06-05-2023 History of Present illness Narrative * [...] Care Gap or Scheduling/Wellness visits Payer: Payor: [employer] MEDICARE / Plan: [employer] MEDICARE PPO / [...] 17, 2022 1:55 PM documented in this encounterPaulding County Hospital03-23-2023 Miscellaneous Notes* Telephone Encounter - Deisy [...] you. Zofia Donnelly APRN.CNP documented in this encounterPaulding County Hospital03-23-2023 Miscellaneous Notes* Letter - Mammography Coordinator - 09/04/2022 8:37 AM EDT September 05, 2022 PID: [id number] Ilene Shaw [address] [place] [address] Dear Ms. Shaw, We are pleased to [...] report will be kept on file at [facility] as part of your permanent medical record and are available for your continuing care. Thank you for allowing us to help in meeting your health care needs. Sincerely, Dr. Garcia Interpreting Radiologist [facility] (Normal over 40) documented in this encounterPaulding County Hospital03-07-2023 Miscellaneous Notes* Telephone Encounter - Lisa [...] for appointment on 09/03/22. documented in this encounterPaulding County Hospital12-30-2022 Miscellaneous Notes* Telephone Encounter - Kelle [...] she is going with her daughter to [place] to get a CT. She states she [...] sleep at night. Protocols used: Medication Question Obxy-EEUJQ-DK documented in this encounterPaulding County Hospital12-02-2022 History of Present illness Narrative* Jennifer [...] the past 2 weeks, was working in [employer]. Dr Beck wondersera note has chronological history [...] rx. Jennifer Santos MD documented in this encounterPaulding County Hospital10-04-2022 Miscellaneous Notes* Telephone Encounter - Nicki [...] office and requested RX be sent to [facility] here in [place]. 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 Please call and advise. documented in this encounterPaulding County Hospital10-03-2022 History of Present illness Narrative* Arpit [...] CAPSULE Arpit Beck MD documented in this encounterPaulding County Hospital10-03-2022 Miscellaneous Notes* Telephone Encounter - Arpit [...] day appt for evaluation. documented in this encounterPaulding County Hospital10-01-2022 Miscellaneous Notes* Telephone Encounter - Klaudia Mas LPN - 03/15/2022 10:35 AM EDT 1.Pt calling for a refill of her new rx of xarelto 20 mg daily to the pharmacy. 2. Pt complaining of hand swelling. She can't take prednisone. Is there something else cs can take? documented in this encounterPaulding County Hospital09-19-2022 History of Present illness Narrative* Jennifer [...] to her lips. 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 She still takes her lexapro and gets it from [place]. She can takes the xanax once at [...] months Jennifer Santos MD documented [facility] encounter[facility] Miscellaneous Notes* Telephone Encounter - Torrey Dawson PA-C - 02/07/2022 11:11 AM EDT I called and discussed the ultrasound with the patient showing the superficial vein thrombosis in the greater saphenous and varicose vein. Discussed warm compresses, NSAIDs. I did have her make a follow-up appointment next week with PCP. Patient agreeable. documented in this encounterPaulding [facility]08-26-2022 History of Present illness Narrative* Torrey Dawson PA-C - 02/07/2022 9:01 AM EDT This note was created using Deep Glintriter. Subjective Ilene Shaw is a 71 year [...] LAB Torrey Dawson PA-C documented in this encounterPaulding [facility]08-13-2022 Instructions* Patient Instructions* Zee León APRN.CNP [...] - BACTERIAL VAGINOSIS AMPLIFICATION documented in this encounterPaulding [facility] Hospital08-13-2022 History of Present illness Narrative* Zee León APRN.CNP - 01/25/2022 9:18 AM EDT Subjective The history is provided by the patient. No sign language translator was used. ILAN Shaw is a 71 [...] have confirmed and edited as necessary, the [facility] Review of Systems Constitutional: Negative for chills [...] evaluation. Zee León APRN.LACY documented in this encounterPaulding [facility] Hospital07-04-2022 History of Present illness Narrative* Natasha Lester PA-C - 12/16/2021 10:19 PM EDT FOLLOW UP VISIT - ABSCESS NAME: Ilene Rutherford [facility] NO.: [id number] DATE OF SERVICE: 12/13/2021 : 1950 REFERRING [...] conservatively with Bactrim after going to the [facility]. She was seen by Zofia Donnelly and [...] which included preparing to see the patient, [id number] patient care, completing clinical documentation, obtaining and/or reviewing separately obtained history, performing a medically appropriate examination and counseling and educating the patient/family/caregiver. Natasha Lester PA-C documented in this encounterPaulding [facility] Hospital07-01-2022 Instructions* Patient Instructions* Natasha Lester PA-C - 12/13/2021 1:49 PM EDT -Hibiclens wash daily over the next 2 weeks -May apply small amount of Bactroban -Follow up if any recurrent lumps or pain documented in this encounterPaulding County Hospital06-21-2022 History of Present illness Narrative* Kodi [...] conservatively with Bactrim after going to the [facility]. She was seen by Zofia Donnelly and [...] RIGHT PERQ BREAST LOC DEVICE PLACEMT [facility] US IMAG 08/16/14 U/S right axillary marking [...] entered by the nurse and reviewed by nv Nursing Notes: Bahman Hutchison LPN 12/03/2021 1:56 [...] 10 to 12 days with my physician esol teacher assistant to make sure that we have [...] Kodi Muniz III, MD documented in this encounterPaulding [facility] Hospital06-21-2022 Nurse Note* Bahman Hutchison, ANODIZER - 12/03/2021 1:54 PM EDT REVIEW OF [...] 2014 Bahman Hutchison LPN documented in this encounterPaulding [facility] Hospital05-25-2022 Miscellaneous Notes* Telephone Encounter - Shellie [...] consultation. Kailyn Riley RN documented in this encounterPaulding County Hospital05-16-2022 History of Present illness Narrative* Zofia [...] 95% and HER-2/edmond is 1+. Stage I, [id number]. Patient started her adjuvant radiation therapy a [...] visit. Zofia Donnelly APRN.LACY documented in this encounterPaulding [facility] Hospital03-21-2022 History of Present illness Narrative* Carley [...] 02, 2021 10:40 AM documented in this encounterPaulding County Hospital03-21-2022 Miscellaneous Notes* Result QuickNote - Zofia Donnelyl APRN.CNP - 09/02/2021 10:50 AM EDT Please inform pt. that her mammogram is fine. Pt. needs OV in the next few weeks. Thank you. Zofia Donnelly APRN.LACY documented in this encounterPaulding County Hospital12-17-2021 Miscellaneous Notes* Telephone Encounter - Sheree Ferrer RN - 05/31/2021 11:32 AM EST Patient calls to report she continues to take Bactrim DS for lump under arm but now she is developing a yeast infection. States yeast infection started yesterday and symptoms are worsening. Patient asking for prescription to treat yeast infection be sent to [facility]. Please review and advise, Sheree Ferrer RN documented in this encounterPaulding County Hospital09-28-2015 History of Past illness Narrative* Problem Noted Date Resolved Date Breast cancer, right 03/12/2015 02/11/2022 Breast cancer 08/14/2014 02/11/2022 Lump or mass in breast 08/09/2014 9 documented as of this encounter (statuses as of 03/03/2022) [place] [id number] History of Past illness Narrative* Problem Noted Date Resolved Date Breast cancer, right 03/12/2015 02/11/2022 Breast cancer 08/14/2014 02/11/2022 Lump or mass in breast 08/09/2014 9 documented as of this encounter (statuses as of 03/15/2022) [place] [id number] History of Past illness Narrative* Problem Noted Date Resolved Date Breast cancer, right 03/12/2015 02/11/2022 Breast cancer 08/14/2014 02/11/2022 Lump or mass in breast 08/09/2014 9 documented as of this encounter (statuses as of 03/18/2022) [address]28-2015 History of Past illness Narrative* Problem Noted Date Resolved Date Breast cancer, right 03/12/2015 02/11/2022 Breast cancer 08/14/2014 02/11/2022 Lump or mass in breast 08/09/2014 9 documented as of this encounter (statuses as of 03/18/2022) [place] [id number] History of Past illness Narrative* Problem Noted Date Resolved Date Breast cancer, right 03/12/2015 02/11/2022 Breast cancer 08/14/2014 02/11/2022 Lump or mass in breast 08/09/2014 9 documented as of this encounter (statuses as of 05/16/2022) [address]28-2015 History of Past illness Narrative* Problem Noted Date Resolved Date Breast cancer, right 03/12/2015 02/11/2022 Breast cancer 08/14/2014 02/11/2022 Lump or mass in breast 08/09/2014 9 documented as of this encounter (statuses as of 06/18/2022) [address]28-2015 History of Past illness Narrative* Problem Noted Date Resolved Date Breast cancer, right 03/12/2015 02/11/2022 Breast cancer 08/14/2014 02/11/2022 Lump or mass in breast 08/09/2014 9 documented as of this encounter (statuses as of 09/04/2022) [address]28-2015 History of Past illness Narrative* Problem Noted Date Resolved Date Breast cancer, right 03/12/2015 02/11/2022 Breast cancer 08/14/2014 02/11/2022 Lump or mass in breast 08/09/2014 9 documented as of this encounter (statuses as of 09/06/2022) [facility] Narrative* Problem Noted Date Resolved Date Breast cancer, right 03/12/2015 02/11/2022 Breast cancer 08/14/2014 02/11/2022 Lump or mass in breast 08/09/2014 9 documented as of this encounter (statuses as of 10/09/2022) [facility] Narrative* Problem Noted Date Resolved Date Breast cancer, right 03/12/2015 02/11/2022 Breast cancer 08/14/2014 02/11/2022 Lump or mass in breast 08/09/2014 9 documented as of this encounter (statuses as of 11/17/2022) [place] [id number] History of Past illness Narrative* Problem Noted Date Diagnosed Date Resolved Date Breast cancer, right 03/12/2015 022 Breast cancer 08/14/2014 02/11/2022 Lump or mass in breast 08/09/201408/23 documented as of this encounter (statuses as of 01/28/2023) [place] [address]28-2015 History of Past illness Narrative* Problem Noted Date Diagnosed Date Resolved Date Breast cancer, right 03/12/2015 022 Breast cancer 08/14/2014 02/11/2022 Lump or mass in breast 08/09/201408/23 documented as of this encounter (statuses as of 04/19/2023) [address]28-2015 History of Past illness Narrative* Problem Noted Date Diagnosed Date Resolved Date Breast cancer, right 03/12/2015 022 Breast cancer 08/14/2014 02/11/2022 Lump or mass in breast 08/09/201408/23 documented as of this encounter (statuses as of 05/21/2023) [address]28-2015 History of Past illness Narrative* Problem Noted Date Diagnosed Date Resolved Date Breast cancer, right 03/12/2015 022 Breast cancer 08/14/2014 02/11/2022 Lump or mass in breast 08/09/201408/23 documented as of this encounter (statuses as of 05/22/2023) [address]28-2015 History of Past illness Narrative* Problem Noted Date Diagnosed Date Resolved Date Breast cancer, right 03/12/2015 022 Breast cancer 08/14/2014 02/11/2022 Lump or mass in breast 08/09/201408/23 documented as of this encounter (statuses as of 08/28/2023) [address]28-2015 History of Past illness Narrative* Problem Noted Date Diagnosed Date Resolved Date Breast cancer, right 03/12/2015 022 Breast cancer 08/14/2014 02/11/2022 Lump or mass in breast 08/09/201408/23 documented as of this encounter (statuses as of 08/31/2023) [address]28-2015 History of Past illness Narrative* Problem Noted Date Diagnosed Date Resolved Date Breast cancer, right 03/12/2015 022 Breast cancer 08/14/2014 02/11/2022 Lump or mass in breast 08/09/201408/23 documented as of this encounter (statuses as of 09/01/2023) [address]28-2015 History of Past illness Narrative* Problem Noted Date Diagnosed Date Resolved Date Breast cancer, right 03/12/2015 022 Breast cancer 08/14/2014 02/11/2022 Lump or mass in breast 08/09/201408/23 documented as of this encounter (statuses as of 09/07/2023) [address]28-2015 History of Past illness Narrative* Problem Noted Date Diagnosed Date Resolved Date Breast cancer, right 03/12/2015 022 Breast cancer 08/14/2014 02/11/2022 Lump or mass in breast 08/09/201408/23 documented as of this encounter (statuses as of 09/08/2023) [address]28-2015 History of Past illness Narrative* Problem Noted Date Diagnosed Date Resolved Date Breast cancer, right 03/12/2015 022 Breast cancer 08/14/2014 02/11/2022 Lump or mass in breast 08/09/201408/23 documented as of this encounter (statuses as of 10/01/2023) [facility] Narrative* Problem Noted Date Diagnosed Date Resolved Date Breast cancer, right 03/12/2015 022 Breast cancer 08/14/2014 02/11/2022 Lump or mass in breast 08/09/201408/23 documented as of this encounter (statuses as of 10/01/2023) [facility] Narrative* Problem Noted Date Resolved Date Lump or mass in breast 08/09/2014 9 documented as of this encounter (statuses as of 09/03/2021) [facility] Narrative* Problem Noted Date Resolved Date Lump or mass in breast 08/09/2014 9 documented as of this encounter (statuses as of 10/30/2021) [facility] Narrative* Problem Noted Date Resolved Date Lump or mass in breast 08/09/2014 9 documented as of this encounter (statuses as of 11/06/2021) [facility] Narrative* Problem Noted Date Resolved Date Lump or mass in breast 08/09/2014 9 documented as of this encounter (statuses as of 12/03/2021) [facility] Narrative* Problem Noted Date Resolved Date Lump or mass in breast 08/09/2014 9 documented as of this encounter (statuses as of 12/17/2021) [facility] Narrative* Problem Noted Date Resolved Date Lump or mass in breast 08/09/2014 9 documented as of this encounter (statuses as of 01/25/2022) [facility] Narrative* Problem Noted Date Resolved Date Lump or mass in breast 08/09/2014 9 documented as of this encounter (statuses as of 01/30/2022) [facility] Narrative* Problem Noted Date Resolved Date Lump or mass in breast 08/09/2014 9 documented as of this encounter (statuses as of 02/07/2022) [facility] Narrative* Problem Noted Date Resolved Date Lump or mass in breast 08/09/2014 9 documented as of this encounter (statuses as of 02/07/2022) [facility] Author Venkat Mustafa [facility] May 27, 2023 1:39am Note Date/Time May 27, 2023 12:45am [facility] Medical Records Department [address] [place] [id number] Emergency Department Summary 05/27/23 MR#: [id number] Acct: [id number] Name: ILENE SHAW Rep #:[id number] 4 : 1950 73 From: Venkat Mustafa [...] she states that took care of it. [facility] Medical History Adult-onset Still's disease [...] your Primary Care Provider. Call [facility] ([phone]) or report to the closest Emergency Room. Call 911 if necessary. 05/27/23 0139 <Electronically signed by Venkat Mustafa MD> Cosigner Signature (if applicable): CC: Dr. Jennifer Santos MD ~ Signed [facility] Work Phone: Evaluation + Plan note No data available for this section 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)- Primary Cellulitis of axillary region Cellulitis and abscess of upper arm and forearm documented in this encounter [facility] note* Diagnosis Cutaneous abscess of right axilla- Primary Cellulitis and abscess of upper arm and forearm documented [facility] encounter [facility]* Diagnosis Axillary abscess- Primary Cellulitis and abscess of upper arm and forearm documented [facility]* Diagnosis Urinary frequency- Primary Elevated blood pressure reading without diagnosis of hypertension Acute vaginitis Vaginitis and vulvovaginitis, unspecified [facility]* Diagnosis Left leg swelling- Primary Swelling of limb documented in this encounter [facility] noteNo assessment information availableWCenterville Work Phone: Evaluation note* Diagnosis Anxiety- Primary Anxiety state, unspecified DVT (deep vein thrombosis) in Deep phlebothrombosis, antepartum, unspecified as to episode of care Hyperlipidemia with target low density lipoprotein (LDL) cholesterol less than 130 mg/dL documented in this encounter [facility]* Diagnosis Recurrent deep vein thrombosis (DVT) of lower extremity, unspecified laterality (HCC)- Primary Allergy to antithrombotic medication documented in this encounter [facility]* Diagnosis Recurrent deep vein thrombosis (DVT) of lower extremity, unspecified laterality (HCC) documented in this encounter [facility]* Diagnosis Recurrent deep vein thrombosis (DVT) (HCC)- Primary Pedal edema Edema Other acute sinusitis, recurrence not specified documented in this encounter [facility]* Diagnosis 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)- Primary Personal history of breast cancer Personal history of malignant neoplasm of breast Encounter for screening mammogram for malignant neoplasm of breast Other screening mammogram documented [facility] this encounter [facility]* Diagnosis 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) Personal history of breast cancer Personal history of malignant neoplasm of breast Encounter for screening mammogram for malignant neoplasm of breast Other screening mammogram [facility] Lip swelling- Primary Diseases of lips [facility] Diagnosis Angioedema of lips, subsequent encounter- Primary [facility] Diagnosis Blurred vision, right eye- Primary Other specified visual disturbances [facility]* Diagnosis ER+ (estrogen receptor positive status)- Primary Estrogen receptor positive status [ER+] Encounter for screening mammogram for breast cancer [facility] Diagnosis ER+ (estrogen receptor positive status) Estrogen receptor positive status [ER+] Encounter for screening mammogram for breast cancer [facility] Diagnosis Abnormal mammogram of left breast documented in this encounter [facility] note* Diagnosis Abnormal mammogram of left breast documented in this encounter [facility] note* Diagnosis Vaginal itching- Primary Pruritus of genital organs documented in this encounter [facility] note* Diagnosis Sinobronchitis- Primary Unspecified sinusitis (chronic) Acute cough documented in this encounter [facility] note* Diagnosis Acute cough documented in this encounter [facility] note* Diagnosis Encounter for routine adult [...] disorder of vagina documented in this encounter [facility] note* Diagnosis Encounter for routine adult [...] for breast cancer documented in this encounter [facility] note* Diagnosis Encounter for routine adult [...] for breast cancer [facility] Diagnosis Encounter for routine adult [...] malignant neoplasms, colon [facility] Additional Instructions Since [...] breathing or swallowing, return to the ER immediately.[facility] Work Phone: Hospital Discharge instructionsAdditional Instructions You will need to follow-up with Dr. Argueta for additional prescription of Eliquis. You also need to have your blood pressure checked since it was elevated in the emergency department.[facility] Work Phone: Reason for referral (narrative)* Outpatient Procedure (Urgent) - Closed Specialty Diagnoses / Procedures Referred By Amy cherry Referred To [facility] Diagnoses Left leg swelling Procedures US LEG VEIN DVT UNL VAS LAB DUP-SCAN XTR VEINS UNILATERAL/LIMITED STUDY Torrey Dawson, PAMichaelC [address] [place] [address] [facility] [address] [place] [address] Referral ID Status Reason Start Date Expiration Date V isits Requested Visits Authorized [id number] Closed Auto-Generate d Referral 02/07/2022 02/07/2023 1 1 [facility] for referral (narrative)* Diagnostic Procedure Only (Routine) [...] MAMMOGRAPHY BI 2-VIEW BREAST INC Zofia Raman APRN.FASHION PATTERNMAKER [address] [place] [address] [facility] [address] [place] [address] Referral ID Status Reason Start Date Expiration Date V isits Requested Visits Authorized [id number] Closed Auto-Generate d Referral 08/19/2022 09/17/2023 1 1 [facility] for referral (narrative)* Diagnostic Procedure [...] MAMMOGRAPHY BI 2-VIEW BREAST INC Zofia Raman APRN.FASHION PATTERNMAKER [address] [place] [address] [facility] [address] [place] [address] Referral ID Status Reason Start Date Expiration Date V isits Requested Visits Authorized [id number] Closed Auto-Generate d Referral 08/19/2022 09/17/2023 1 1 [facility] for referral (narrative)* Diagnostic Procedure Only (Routine) - Pending Review Specialty Diagnoses / Procedures Referred By Amy cherry Referred To Contact [facility] Diagnoses ER+ (estrogen receptor positive status) Encounter for screening mammogram for breast cancer Procedures BARBARA SCREENING W EL SCREENING DIGITAL BREAST TOMOSYNTHESIS BI SCREENING MAMMOGRAPHY BI 2-VIEW BREAST INC CAD Ashlyn Roger APRN.REGISTERED DIETETIC TECHNICIAN [address] [place] [address] [facility] [address] [place] [address] Referral ID Status Reason Start Date Expiration Date Visits Requested Visits Authorized [id number] Pending Review Auto-Generat ed Referral 09/01/2023 09/30/2024 1 1 [facility] for referral (narrative)* Diagnostic Procedure Only (Routine) - Closed Specialty Diagnoses / Procedures Referred By Amy cherry Referred To Contact [facility] Diagnoses Abnormal mammogram of left breast Procedures US BREAST LTD LEFT US BREAST UNI REAL TIME WITH IMAGE LIMITED Ashlyn Roger APRN.REGISTERED DIETETIC TECHNICIAN [address] [place] [address] [facility] [address] [place] [address] Referral ID Status Reason Start Date Expiration Date V isits Requested Visits Authorized [id number] Closed Auto-Generate d Referral 09/08/2023 10/07/2024 1 1 [facility] for referral (narrative)No reason for referral information availableIndiana University Health [facility] Work Phone: Reason for visit Narrative* [...] BI 2-VIEW BREAST INC CAD Zofia Donnelly APRN.FASHION PATTERNMAKER [address] [place] [address] [facility] [address] [place] [address] Referral ID Status Reason Start Date Expiration Date V isits Requested Visits Authorized [id number] Closed Auto-Generate d Referral 08/19/2022 09/17/2023 1 1 [facility] for visit Narrative* Diagnostic Procedure Only (Routine) - Closed Specialty Diagnoses / Procedures Referred By Contac t Referred To Contact [facility] Diagnoses ER+ (estrogen receptor positive status) Encounter for screening mammogram for breast cancer Procedures BARBARA SCREENING W EL SCREENING DIGITAL BREAST TOMOSYNTHESIS BI SCREENING MAMMOGRAPHY BI 2-VIEW BREAST INC CAD Ashlyn Roger, SOFTWARE TOOLS ENGINEER.REGISTERED DIETETIC TECHNICIAN [address] [place] [address] [facility] [address] [place] [address] Referral ID Status Reason Start Date Expiration Date V isits Requested Visits Authorized [id number] Closed Auto-Generate d Referral 09/01/2023 09/30/2024 1 1 [facility] for visit Narrative* Diagnostic Procedure Only (Routine) - Closed Specialty Diagnoses / Procedures Referred By Contac t Referred To Contact [facility] Diagnoses Abnormal mammogram of left breast Procedures US BREAST LTD LEFT US BREAST UNI REAL TIME WITH IMAGE LIMITED Ashlyn Roger, SOFTWARE TOOLS ENGINEER.REGISTERED DIETETIC TECHNICIAN [address] [place] [address] [facility] [address] [place] [address] Referral ID Status Reason Start Date Expiration Date V isits Requested Visits Authorized [id number] Closed Auto-Generate d Referral 09/08/2023 10/07/2024 1 1 [facility] for visit Narrative* Diagnostic Procedure Only (Routine) - Closed Specialty Diagnoses / Procedures [facility] Referred To Contact [facility] Diagnoses Abnormal mammogram of left breast Procedures BARBARA DIAGNOSTIC LEFT DIAGNOSTIC MAMMOGRAPHY COMPUTER-AIDED DETCJ UNI Ashlyn Roger, SOFTWARE TOOLS ENGINEER.REGISTERED DIETETIC TECHNICIAN [address] [place] [address] [facility] [address] [place] [address] Referral ID Status Reason Start Date Expiration Date V isits Requested Visits Authorized [id number] Closed Auto-Generate d Referral 09/08/2023 10/07/2024 1 1 [facility] Diagnostic Procedure Only (Routine) - Closed Specialty Diagnoses / Procedures Referred By Amy cherry Referred To Contact [facility] Diagnoses Encounter for screening mammogram for breast cancer Procedures BARBARA SCREENING W EL SCREENING DIGITAL BREAST TOMOSYNTHESIS BI SCREENING MAMMOGRAPHY BI 2-VIEW BREAST INC CAD Older, Kelle, SOFTWARE TOOLS ENGINEER.FASHION PATTERNMAKER [address] [place] [address] Phone: tel: fax: [facility] [address] [place] [address] Referral ID Status Reason Start Date Expiration Date V isits Requested Visits Authorized [id number] Closed Auto-Generate d Referral 09/14/2024 10/14/2025 1 1 [facility] Summary Purpose Family History No Family History Records Found No data available for this section No data available for this section No Family History Records FoundNo Family History Records FoundNo Family History Records Found Advance Directives No Advanced Directives Records Found Advance Directive Response Recorded Date/ Time Advance Directives No August 16 10:15am Living Will No February 18 022 7:31am Power of Bd Special Education Teacher No February 18, 2022 7:31am Advance Directive Response Recorded Date/ Time Advance Directives No August 16 10:15am Living Will No March 02, 2022 6:30pm Power of Bd Special Education Teacher No February 6:30pm Advance Directive Response Recorded Date/ Time Advance Directives No August 16 9:15am Living Will No May 26 023 11:53pm Power of Bd Special Education Teacher No May 26, 2023 11:53pm Advance Directive Response Recorded Date/ Time Advance Directives No August 16 10:15am Living Will No August 28, 2023 6:01pm Power of Bd Special Education Teacher No August 27 6:01pm Advance Directive Response Recorded Date/ Time Advance Directives No August 16 10:15am Advance Directive Response Recorded Date/ Time Do you have a Healthcare Power of Bd Special Education Teacher? No April 04, 2025 9:38am Do you have a Healthcare Power of Bd Special Education Teacher? No April 07, 2025 3:35am Advance Directives [...] section and content) DATE CREATED AUTHOR 11/14/2018 [facility] DATE CREATED AUTHOR AUTHOR'S ORGANIZ ATION 09/03/2023 [facility] ([place]) DATE CREATED AUTHOR AUTHOR'S ORGANIZ ATION 04/17/2025 [facility] DATE CREATED AUTHOR AUTHOR'S ORGANIZ ATION 04/28/2025 [facility] Source Comments (unrecognize d section and content) In the event this informatio n is protected by the Federal Confidentiality of Alcohol and Drug Abuse Patient Records regulations: The Federal rules restrict any use of the information to criminally investigate or prosecute any alcohol or drug abuse patient.[facility] the event this information is protected by the Federal Confidentiality of Alcohol and Drug Abuse Patient Records regulations: The Federal rules restrict any use of the information to criminally investigate or prosecute any alcohol or drug abuse patient.[facility] HospitalIn the event this information is protected by the Federal Confidentiality of Alcohol and Drug Abuse Patient Records regulations: The Federal rules restrict any use of the information to criminally investigate or prosecute any alcohol or drug abuse patient.[facility] HospitalIn the event this information is protected by the Federal Confidentiality of Alcohol and Drug Abuse Patient Records regulations: The Federal rules restrict any use of the information to criminally investigate or prosecute any alcohol or drug abuse patient.[facility] HospitalIn the event this information is protected by the Federal Confidentiality of Alcohol and Drug Abuse Patient Records regulations: The Federal rules restrict any use of the information to criminally investigate or prosecute any alcohol or drug abuse patient.[facility] HospitalIn the event this information is protected by the Federal Confidentiality of Alcohol and Drug Abuse Patient Records regulations: The Federal rules restrict any use of the information to criminally investigate or prosecute any alcohol or drug abuse patient.[facility] HospitalIn the event this information is protected by the Federal Confidentiality of Alcohol and Drug Abuse Patient Records regulations: The Federal rules restrict any use of the information to criminally investigate or prosecute any alcohol or drug abuse patient.[facility] HospitalIn the event this information is protected by the Federal Confidentiality of Alcohol and Drug Abuse Patient Records regulations: The Federal rules restrict any use of the information to criminally investigate or prosecute any alcohol or drug abuse patient.[facility] HospitalIn the event this information is protected by the Federal Confidentiality of Alcohol and Drug Abuse Patient Records regulations: The Federal rules restrict any use of the information to criminally investigate or prosecute any alcohol or drug abuse patient.[facility] HospitalIn the event this information is protected by the Federal Confidentiality of Alcohol and Drug Abuse Patient Records regulations: The Federal rules restrict any use of the information to criminally investigate or prosecute any alcohol or drug abuse patient.[facility] HospitalIn the event this information is protected by the Federal Confidentiality of Alcohol and Drug Abuse Patient Records regulations: The Federal rules restrict any use of the information to criminally investigate or prosecute any alcohol or drug abuse patient.[facility] HospitalIn the event this information is protected by the Federal Confidentiality of Alcohol and Drug Abuse Patient Records regulations: The Federal rules restrict any use of the information to criminally investigate or prosecute any alcohol or drug abuse patient.[facility] HospitalIn the event this information is protected by the Federal Confidentiality of Alcohol and Drug Abuse Patient Records regulations: The Federal rules restrict any use of the information to criminally investigate or prosecute any alcohol or drug abuse patient.[facility] HospitalIn the event this information is protected by the Federal Confidentiality of Alcohol and Drug Abuse Patient Records regulations: The Federal rules restrict any use of the information to criminally investigate or prosecute any alcohol or drug abuse patient.[facility] HospitalIn the event this information is protected by the Federal Confidentiality of Alcohol and Drug Abuse Patient Records regulations: The Federal rules restrict any use of the information to criminally investigate or prosecute any alcohol or drug abuse patient.[facility] HospitalIn the event this information is protected by the Federal Confidentiality of Alcohol and Drug Abuse Patient Records regulations: The Federal rules restrict any use of the information to criminally investigate or prosecute any alcohol or drug abuse patient.[facility] HospitalIn the event this information is protected by the Federal Confidentiality of Alcohol and Drug Abuse Patient Records regulations: The Federal rules restrict any use of the information to criminally investigate or prosecute any alcohol or drug abuse patient.[facility] HospitalIn the event this information is protected by the Federal Confidentiality of Alcohol and Drug Abuse Patient Records regulations: The Federal rules restrict any use of the information to criminally investigate or prosecute any alcohol or drug abuse patient.[facility] HospitalIn the event this information is protected by the Federal Confidentiality of Alcohol and Drug Abuse Patient Records regulations: The Federal rules restrict any use of the information to criminally investigate or prosecute any alcohol or drug abuse patient.[facility] HospitalIn the event this information is protected by the Federal Confidentiality of Alcohol and Drug Abuse Patient Records regulations: The Federal rules restrict any use of the information to criminally investigate or prosecute any alcohol or drug abuse patient.[facility] HospitalIn the event this information is protected by the Federal Confidentiality of Alcohol and Drug Abuse Patient Records regulations: The Federal rules restrict any use of the information to criminally investigate or prosecute any alcohol or drug abuse patient.[facility] HospitalIn the event this information is protected by the Federal Confidentiality of Alcohol and Drug Abuse Patient Records regulations: The Federal rules restrict any use of the information to criminally investigate or prosecute any alcohol or drug abuse patient.[facility] HospitalIn the event this information is protected by the Federal Confidentiality of Alcohol and Drug Abuse Patient Records regulations: The Federal rules restrict any use of the information to criminally investigate or prosecute any alcohol or drug abuse patient.[facility] HospitalIn the event this information is protected by the Federal Confidentiality of Alcohol and Drug Abuse Patient Records regulations: The Federal rules restrict any use of the information to criminally investigate or prosecute any alcohol or drug abuse patient.[facility] HospitalIn the event this information is protected by the Federal Confidentiality of Alcohol and Drug Abuse Patient Records regulations: The Federal rules restrict any use of the information to criminally investigate or prosecute any alcohol or drug abuse patient.[facility] HospitalIn the event this information is protected by the Federal Confidentiality of Alcohol and Drug Abuse Patient Records regulations: The Federal rules restrict any use of the information to criminally investigate or prosecute any alcohol or drug abuse patient.[facility] HospitalIn the event this information is protected by the Federal Confidentiality of Alcohol and Drug Abuse Patient Records regulations: The Federal rules restrict any use of the information to criminally investigate or prosecute any alcohol or drug abuse patient.[facility] HospitalIn the event this information is protected by the Federal Confidentiality of Alcohol and Drug Abuse Patient Records regulations: The Federal rules restrict any use of the information to criminally investigate or prosecute any alcohol or drug abuse patient.[facility] HospitalIn the event this information is protected by the Federal Confidentiality of Alcohol and Drug Abuse Patient Records regulations: The Federal rules restrict any use of the information to criminally investigate or prosecute any alcohol or drug abuse patient.[facility] HospitalIn the event this information is protected by the Federal Confidentiality of Alcohol and Drug Abuse Patient Records regulations: The Federal rules restrict any use of the information to criminally investigate or prosecute any alcohol or drug abuse patient.[facility] HospitalIn the event this information is protected by the Federal Confidentiality of Alcohol and Drug Abuse Patient Records regulations: The Federal rules restrict any use of the information to criminally investigate or prosecute any alcohol or drug abuse patient.[facility] HospitalIn the event this information is protected by the Federal Confidentiality of Alcohol and Drug Abuse Patient Records regulations: The Federal rules restrict any use of the information to criminally investigate or prosecute any alcohol or drug abuse patient.[facility] HospitalIn the event this information is protected by the Federal Confidentiality of Alcohol and Drug Abuse Patient Records regulations: The Federal rules restrict any use of the information to criminally investigate or prosecute any alcohol or drug abuse patient.[facility] HospitalIn the event this information is protected by the Federal Confidentiality of Alcohol and Drug Abuse Patient Records regulations: The Federal rules restrict any use of the information to criminally investigate or prosecute any alcohol or drug abuse patient.[facility] HospitalIn the event this information is protected by the Federal Confidentiality of Alcohol and Drug Abuse Patient Records regulations: The Federal rules restrict any use of the information to criminally investigate or prosecute any alcohol or drug abuse patient.[facility] HospitalIn the event this information is protected by the Federal Confidentiality of Alcohol and Drug Abuse Patient Records regulations: The Federal rules restrict any use of the information to criminally investigate or prosecute any alcohol or drug abuse patient.[facility] HospitalIn the event this information is protected by the Federal Confidentiality of Alcohol and Drug Abuse Patient Records regulations: The Federal rules restrict any use of the information to criminally investigate or prosecute any alcohol or drug abuse patient.[facility] HospitalIn the event this information is protected by the Federal Confidentiality of Alcohol and Drug Abuse Patient Records regulations: The Federal rules restrict any use of the information to criminally investigate or prosecute any alcohol or drug abuse patient.[facility] HospitalIn the event this information is protected by the Federal Confidentiality of Alcohol and Drug Abuse Patient Records regulations: The Federal rules restrict any use of the information to criminally investigate or prosecute any alcohol or drug abuse patient.[facility] HospitalIn the event this information is protected by the Federal Confidentiality of Alcohol and Drug Abuse Patient Records regulations: The Federal rules restrict any use of the information to criminally investigate or prosecute any alcohol or drug abuse patient.[facility] HospitalIn the event this information is protected by the Federal Confidentiality of Alcohol and Drug Abuse Patient Records regulations: The Federal rules restrict any use of the information to criminally investigate or prosecute any alcohol or drug abuse patient.[facility] Care Teams (unrecognized sec tion and content) Correctional Supervisor Relationship Specialty Start Date End Date Jennifer Santos MD [address] [place] [address] PCP - General Internal Medicine 04/15/21 Correctional Supervisor Relationship Specialty Start Date End Date Jennifer Santos MD [facility] [place] [address] PCP - General Internal Medicine 04/15/21 Correctional Supervisor Relationship Specialty Start Date End Date Jennifer Santos MD [address] [place] [id number] PCP - General Internal Medicine 04/15/21 Correctional Supervisor Relationship Specialty Start Date End Date Jennifer Santos MD [address] [place] [address] PCP - General Internal Medicine 04/15/21 Correctional Supervisor Relationship Specialty Start Date End Date Jennifer Santos MD [address] [place] [address] [place] [address] PCP - General Internal Medicine 04/15/21 Correctional Supervisor Relationship Specialty Start Date End Date Jennifer Santos MD [address] [place] [address] PCP - General Internal Medicine 04/15/21 Correctional Supervisor Relationship Specialty Start Date End Date Jennifer Santos MD [address] [place] [address] PCP - General Internal Medicine 04/15/21 Correctional Supervisor Relationship Specialty Start Date End Date Jennifer Santos MD [address] [place] [address] PCP - General Internal Medicine 04/15/21 Correctional Supervisor Relationship Specialty Start Date End Date Jennifer Santos MD [address] [place] [address] PCP - General Internal Medicine 04/15/21 Correctional Supervisor Relationship Specialty Start Date End Date Jennifer Santos MD [address] [place] [address] PCP - General Internal Medicine 04/15/21 Correctional Supervisor Relationship Specialty Start Date End Date Jennifer Santos MD [address] [place] [address] PCP - General Internal Medicine 04/15/21 Correctional Supervisor Relationship Specialty Start Date End Date Jennifer Santos MD [address] [place] [address] PCP - General Internal Medicine 04/15/21 Correctional Supervisor Relationship Specialty Start Date End Date Jennifer Santos MD [address] [place] [address] PCP - General Internal Medicine 04/15/21 Correctional Supervisor Relationship Specialty Start Date End Date Jennifer Santos MD [address] [place] [address] PCP - General Internal Medicine 04/15/21 Correctional Supervisor Relationship Specialty Start Date End Date Jennifer Santos MD [address] [place] [address] PCP - General Internal Medicine 04/15/21 Correctional Supervisor Relationship Specialty Start Date End Date Jennifer Santos MD [address] [place], [place] [address] PCP - General Internal Medicine 04/15/21 Team [...] Active 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 Correctional Supervisor Relationship Specialty Start Date End Date Jennifer Santos MD [address] [place] [address] PCP - General Internal Medicine 04/15/21 Correctional Supervisor Relationship Specialty Start Date End Date Jennifer Santos MD [address] [place] [address] PCP - General Internal Medicine 04/15/21 Correctional Supervisor Relationship Specialty Start Date End Date Jennifer Santos MD [address] [place], [place] [id number] PCP - General Internal Medicine 04/15/21 Correctional Supervisor Relationship Specialty Start Date End Date Jennifer Santos MD [address] [place], [place] [address] PCP - General Internal Medicine 04/15/21 Correctional Supervisor Relationship Specialty Start Date End Date Jennifer Santos MD [address] [place] [address] PCP - General Internal Medicine 04/15/21 Correctional Supervisor Relationship Specialty Start Date End Date Jennifer Santos MD [address] [place] [address] PCP - General Internal Medicine 04/15/21 Correctional Supervisor Relationship Specialty Start Date End Date Jennifer Santos MD [address] [place] [address] PCP - General Internal Medicine 04/15/21 Correctional Supervisor Relationship Specialty Start Date End Date Jennifer Santos MD [address] [place] [address] PCP - General Internal Medicine 04/15/21 Correctional Supervisor Relationship Specialty Start Date End Date Jennifer Santos MD [address] [place] [address] PCP - General Internal Medicine 04/15/21 Correctional Supervisor Relationship Specialty Start Date End Date Jennifer Santos MD [address] [place] [address] PCP - General Internal Medicine 04/15/21 Correctional Supervisor Relationship Specialty Start Date End Date Jennifer Santos MD [address] [place] [address] PCP - General Internal Medicine 04/15/21 Kelle Peter [email or web address].CNP [address] [place] [address] Electrocardiogram Technician Internal Medicine 05/22/24 Correctional Supervisor Relationship Specialty Start Date End Date Jennifer Santos MD [address] [place], [place] [id number] PCP - General Internal Medicine 04/15/21 Kelle Peter, SOFTWARE TOOLS ENGINEER.FASHION PATTERNMAKER [address] [place], [place] [id number] Electrocardiogram Technician Internal Medicine 05/22/24 Correctional Supervisor Relationship Specialty Start Date End Date Jennifer Santos MD [address] [place], [place] [address] PCP - General Internal Medicine 04/15/21 Brittani, Kelle, SOFTWARE TOOLS ENGINEER.FASHION PATTERNMAKER [address] [place] [address] Electrocardiogram Technician Internal Medicine 05/22/24 Correctional Supervisor Relationship Specialty Start Date End Date Jennifer Santos MD [address] [place], [place] [id number] PCP - General Internal Medicine 04/15/21 Brittani, Kelle, SOFTWARE TOOLS ENGINEER.FASHION PATTERNMAKER [address] [place], [place] [id number] Electrocardiogram Technician Internal Medicine 05/22/24 Team Status: Active Member [...] content) Reason Comments Established 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 [email or web address] [facility]. provides no warranty or guarantee of the accuracy or completeness of information in this document.
[2025-05-08 20:34] LABS: Anion Gap 13 (5-15); BUN 12 mg/dL (4-19); BUN/Creat Ratio 12.8 RATIO (10-20); Calcium,Total 9.2 mg/dL (7.6-11.0); Carbon Dioxide 23.6 mmol/L (21.0-32.0); Chloride 102 mmol/L (98-108); Estimated Creatinine Clearance 53.72 ml/min (50-250); Glucose 100 mg/dL (70-99); Potassium 4.4 mmol/L (3.3-5.1)
--- NOTE | 2025-05-08 21:24 | EDS_ITS ---
HPI History of Present Illness Chief Complaint: Cellulitis Detail of Chief Complaint: Cellulitis right arm Informant: patient Onset/Context/Timing Onset: Today (Red warm rash right arm.) Context: Sudden Onset Timing: Continuous Quality: Warm red rash Location: Right arm Current Severity: Moderate Maximum Severity: Moderate Worsened by: Patient stopped ciprofloxacin yesterday. Relieved by: Nothing Associated Symptoms Associated Symptoms: No other symptoms Narrative Narrative: Patient is a 75-year-old [id number] woman. She was seen on the for allergic reaction to cephalexin that she was prescribed after cat scratch and cellulitis of the right upper extremity. She was placed on ciprofloxacin. She took total of 5 days. Last dose was yesterday. She presents now because of red rash that is warm on her right arm. The area where she had the prior rash. She denies fever or chills. She is not on any immunosuppressive meds. She has allergy to penicillin, cephalexin and doxycycline. Doxycycline is not a true allergy is a known side effect i.e. upset stomach. Patient denies any pain in the right upper extremity. Patient has no other symptoms. Patient is on long-term anticoagulant. Prior similar symptoms: Yes Recent Illness/Hospitalization: Yes PFSH PFSH Medical History Depression with anxiety Obesity (BMI 30-39.9) Acute deep vein thrombosis (DVT) of left lower extremity Vaginal candidiasis Acute bronchitis, unspecified Kidney stones Pulmonary embolism Adult-onset Still's disease Depression Anxiety Breast cancer Endometriosis Bowel obstruction Home Medications Medication Instructions Recorded Last Taken Type alprazolam 0.25 mg tablet 0.25 mg PO TID PRN PRN Insom desmond 08/16/14 Unknown History atorvastatin 40 mg tablet 40 mg PO QHS hld #30 tabs Unknown Rx meclizine 12.5 mg tablet 12.5 mg PO TID PRN dizziness #14 04/07/25 Unknown Rx tabs escitalopram oxalate 20 mg tablet 20 mg PO DAILY see m d 04/24/25 Unknown History apixaban 5 mg tablet (Eliquis) 5 mg PO BID #60 tabs Unknown Rx cephalexin 500 mg capsule 500 mg PO Q8H 3 days #9 caps 04/29/25 Unknown Rx ciprofloxacin HCl 500 mg tablet 500 mg PO BID 5 days # 10 tabs 05/01/25 Unknown Rx (Cipro) epinephrine 0.15 mg/0.3 mL 0.15 mg (0.3 mL) IM Q30M NC N 05/01/25 Unknown Rx injection,auto-injector anaphylaxis #2 ea clindamycin HCl 300 mg capsule 300 mg PO Q6H #28 CAPSU LES 05/08/25 Unknown Rx (Cleocin HCl) Allergy/AdvReac Type Severity Reaction Status Date / Time ampicillin Allergy Rash Verified 05/08/25 19:27 cephalexin (From Keflex) Allergy Angioedema Verified 05/08/25 19:27 doxycycline AdvReac Upset Verified 05/08/25 19:27 Stomach prednisone AdvReac SHAKINESS Verified 05/08/25 19:27 Surgical History H/O lumpectomy History of bowel resection History of colostomy reversal H/O: hysterectomy Social History household members: family housing: house Smoking Status: Never smoker ROS ROS ED Constitutional Constitutional ED: Denies chills, fever(s), subjective, sweats or weight loss Eyes Eyes: Denies blurry vision or change in vision ENT ENT ED: Denies ear pain, rhinorrhea or sore throat Cardiovascular Cardiovascular: Denies chest pain or palpitations Respiratory/Chest Respiratory/Chest: Denies cough or dyspnea Gastrointestinal Gastrointestinal: Denies nausea or vomiting Musculoskeletal Musculoskeletal: Denies arthralgias or myalgias Integumentary Reports rash; Denies Abrasions Hematologic/Lymphatic Hematologic/Lymphatic: Reports systems reviewed and no addt'l complaints, except as documented and easy bruising EXAM Physical Exam Const Vital Signs: 05/08/25 19:25 05/08/25 19:28 05/08/25 20:28 Temperature 97.8 F 97.8 F 98.1 F Temperature Source Oral Oral Oral Pulse Rate 90 85 84 Respiratory Rate 16 16 16 Blood Pressure 162/83 H 145/73 H 130/75 H Blood Pressure Mean 109 97 93 Pulse Ox 100 100 100 Oxygen Delivery Method Room Air Room Air Room Air Positive well nourished and well developed Constitutional Narrative: Patient appears no distress. Medical Collections Specialist supplemented history. BMI is 36. General Appearance ED: well developed and NAD; Negative for pallor HEENT Reports moist mucous membranes HEENT Narrative: Head is atraumatic and normocephalic. Ears normal. Eyes PERRL and EOMs intact bilaterally General Eye ED: Negative for pale conjunctiva or scleral icterus Neck no lymphadenopathy, supple and no JVD Resp normal respiratory effort and clear to auscultation bilaterally Cardio regular rate, regular rhythm, S1 normal heart sound, S2 normal heart sound and no murmurs Extremity Negative for normal to inspection Extremity Narrative: There is area of erythema of the right arm that is 15 x 10 cm. The area is warm and indurated. There is no lymphangitis. There is no axillary lymphadenopathy. Axillary, median, radial and ulnar function intact. Radial pulses palpable and 2+. Neuro CN's II-XII intact bilaterally and no sensory deficits noted Sensorium / Orientation: alert Motor Exam: strength 5/5 throughout Skin no wounds and skin turgor normal General Skin Exam: Negative for jaundice or pallor Rashes: rashes noted MDM MDM MDM Narrative Medical decision making narrative: Patient with cellulitis of the arm. Will obtain blood work to determine if patient is a candidate for inpatient versus outpatient. In light of her allergies and will not discuss with her regarding if the doxycycline is a true allergy or not she was treated with clindamycin which will have appropriate streptococcal and staphylococcal coverage. The fact that she got better with ciprofloxacin and indicated not MRSA. Clindamycin does have a significant MRSA coverage, however. Patient received her first dose of clindamycin in the emergency department. Lab Data Attestation: I reviewed the patient's lab results. Lab results narrative: White count is slightly low at 11.7 thousand with slight shift. There is no bandemia. Electrolyte panel is unremarkable. Labs: Laboratory Results - last 24 hr 05/08/25 19:55 WBC 11.7 H RBC 4.96 Hgb 15.9 H Hct 46.8 MCV 94.4 MCH 32.1 H MCHC 34.0 RDW Std Deviation 43.8 RDW Coeff of Funmi 12.6 Plt Count 262 MPV 12.1 H Immature Gran % (Auto) 0.500 Neut % (Auto) 78.2 H Lymph % (Auto) 14.7 L [place] % (Auto) 4.6 Eos % (Auto) 1.7 Baso % (Auto) 0.3 Absolute Neuts (auto) 9.2 H Absolute Lymphs (auto) 1.72 Nucleated RBC % 0 Sodium 139 Potassium 4.4 Chloride 102 Carbon Dioxide 23.6 Anion Gap 13 BUN 12 Creatinine 0.94 Estim Creat Clear Calc 53.72 Est GFR (MDRD) Non-Af 63 BUN/Creatinine Ratio 12.8 Glucose 100 H Calcium 9.2 Treatment and Re-Evaluation :: Since patient has no systemic symptoms white count is only slightly elevated she is a candidate for outpatient therapy. Discharge Plan Triage Chief Complaint: Cellulitis ED Provider: Teodoro Daley Dx/Rx/DC Orders Clinical Impression: Cellulitis of arm, right, Anticoagulated on apixaban Instructions: ED Cellulitis Prescriptions: New clindamycin HCl [Cleocin HCl] 300 mg capsule 300 mg PO Q6H Qty: 28 0RF No Action alprazolam 0.25 MG tablet 0.25 mg PO TID PRN PRN (Reason: Insomnia) escitalopram oxalate 20 mg tablet 20 mg PO DAILY Eliquis 5 mg Tablet 5 mg PO BID Qty: 60 2RF cephalexin 500 mg capsule 500 mg PO Q8H 3 Days Qty: 9 0RF ciprofloxacin HCl [Cipro] 500 mg tablet 500 mg PO BID 5 Days Qty: 10 0RF epinephrine 0.15 mg/0.3 mL auto-injector 0.15 mg IM Q30M PRN (Reason: anaphylaxis) Qty: 2 0RF Rx Instructions: do not exceed 12 doses per 24 hrs Lead to be used if you have a severe allergic reaction. atorvastatin 40 mg Tablet 40 mg PO QHS Qty: 30 0RF meclizine 12.5 mg tablet 12.5 mg PO TID PRN (Reason: dizziness) Qty: 14 0RF Primary Care Provider: SELENA CALIXTO Referrals: SELENA CALIXTO SOC[employer] CONTENT MANAGER-C [Primary Care Provider, Internal Medicine] - 3-5 Days Print Language: Luxembourgish Disposition Disposition: Home, Self Care
== END 2025-05-08 21:42 | disposition home or self-care (01) ==
PROVIDERS: Emergency Provider Emergency Medicine; PCP Nurse Practitioner; Visit Provider Emergency Medicine
DX: L03.113 Cellulitis of right upper limb (principal); Z86.711 Personal history of pulmonary embolism; Z86.718 Personal history of other venous thrombosis and embolism; Z79.01 Long term (current) use of anticoagulants
CPT/HCPCS: 80048; 85025; 96365; 99284; A4216

== ENCOUNTER 2025-05-12 23:28 | Emergency (ER) | payer MEDICARE, SELFPAY ==
[2025-05-12 23:29] VITALS: BP 209/91; PULSE 78; RESP 18; TEMP 36.7; O2SAT 100; BMI 36.3
[2025-05-12] MEDS: Epi Pen (EQUIV) 0.3 MG Syringe IM (23:41)
[2025-05-12 23:46] VITALS: PULSE 76; RESP 14; O2SAT 100
[2025-05-13] VITALS: PULSE 67; RESP 16; O2SAT 99
[2025-05-13] MEDS: Famotidine 200 MG/20 ML MDV 20 MG in 0.9% Normal Saline (Pres. free 8 ML 300 MG IV (00:06)
--- NOTE | 2025-05-13 00:09 | EX.ED.DYSGE1 ---
HPI History of Present Illness Chief Complaint: Allergic Reaction Narrative Narrative: Patient was seen and examined after presenting to ED for lip swelling patient apparently has had this occur a few times now she recently had a cat scratch that got infected requiring admission with IV antibiotics and returns at 1 antibiotic she was placed on she seemed to have a reaction to an she was just recently discharged with Keflex and appeared to be doing well with that up until about today when she started having lip swelling no known family history of hereditary angioedema. Patient apparently according to her family member who is present with her states that she was diagnosed with adult onset stills disease which is apparently a diagnosis of exclusion but it is a rare inflammatory or autoimmune disorder she is not on any form of maintenance medications. [facility] Medical History Depression with anxiety Obesity (BMI 30-39.9) Acute deep vein thrombosis (DVT) of left lower extremity Vaginal candidiasis Acute bronchitis, unspecified Kidney stones Pulmonary embolism Adult-onset Still's disease Depression Anxiety Breast cancer Endometriosis Bowel obstruction Home Medications ?Medication ?Instructions ?Recorded ?Last Taken ?Type alprazolam 0.25 mg tablet 0.25 mg PO TID PRN PRN Insomnia 08/16/14 Unknown History atorvastatin 40 mg tablet 40 mg PO QHS hld #30 tabs 04/07/25 Unknown Rx meclizine 12.5 mg tablet 12.5 mg PO TID PRN dizziness #14 04/07/25 Unknown Rx tabs escitalopram oxalate 20 mg tablet 20 mg PO DAILY see 04/24/25 Unknown History apixaban 5 mg tablet (Eliquis) 5 mg PO BID #60 tabs 04/29/25 Unknown Rx cephalexin 500 mg capsule 500 mg PO Q8H 3 days #9 caps 04/29/25 Unknown Rx ciprofloxacin HCl 500 mg tablet 500 mg PO BID 5 days #10 tabs 05/01/25 Unknown Rx (Cipro) epinephrine 0.15 mg/0.3 mL 0.15 mg (0.3 mL) IM Q30M PRN 05/01/25 Unknown Rx injection,auto-injector anaphylaxis #2 ea clindamycin HCl 300 mg capsule 300 mg PO Q6H #28 CAPSULES 05/08/25 Unknown Rx (Cleocin HCl) Allergy/AdvReac Type Severity Reaction Status Date / Time ampicillin Allergy Rash Verified 05/12/25 23:43 cephalexin (From Keflex) Allergy Angioedema Verified 05/12/25 23:43 doxycycline AdvReac Upset Verified 05/12/25 23:43 Stomach prednisone AdvReac SHAKINESS Verified 05/12/25 23:43 Surgical History H/O lumpectomy History of bowel resection History of colostomy reversal H/O: hysterectomy Social History household members: family housing: house Smoking Status: Never smoker ROS ROS ED ROS Narrative Pertinent Positives: Lip swelling currently on Keflex Pertinent Negatives: Wheezing breathing difficulty tongue swelling vomiting nausea rash The remainder of review of systems negative unless otherwise stated in the HPI above. Systems reviewed including constitutional, psychiatric, cardiovascular, respiratory, integument, HENT, gastrointestinal. EXAM Physical Exam Narrative Exam Narrative: Patient is afebrile hemodynamically stable she does have noticeable lip swelling nothing involving her tongue no uvular enlargement no stridor no wheezing she has some redness involving the right lower jaw no crepitus no lingual or sublingual edema or brawny tenderness normal range of motion of her head and neck Const Vital Signs: 05/12/25 23:29 05/12/25 23:46 05/13/25 00:00 Temperature 98.0 F Temperature Source Temporal Pulse Rate 78 76 67 Respiratory Rate 18 14 16 Blood Pressure 209/91 H Blood Pressure Mean 130 Pulse Ox 100 100 99 Oxygen Delivery Method Room Air 05/13/25 00:15 05/13/25 00:30 05/13/25 00:45 Temperature Temperature Source Pulse Rate 84 81 84 Respiratory Rate 15 14 15 Blood Pressure Blood Pressure Mean Pulse Ox 99 100 99 Oxygen Delivery Method 05/13/25 01:00 Temperature Temperature Source Pulse Rate 84 Respiratory Rate 15 Blood Pressure Blood Pressure Mean Pulse Ox 99 Oxygen Delivery Method MDM MDM MDM Narrative Medical decision making narrative: Nursing notes, triage notes, available previous documentation, and vital signs were reviewed. Any discrepancies noted were addressed. Differential Diagnoses: Could be an allergic reaction although she is not on any other new medication she has been taking the Keflex for a few days now this could be from her adult onset stills disease unknown if there is a family history of hereditary angioedema this is not Eric's angina Interventions: Patient already took 50 mg of Benadryl prior to arrival she received Pepcid here as well as an EpiPen Previous Documentation Reviewed: ED note from 04/30/2026 which showed that she was actually previously on Keflex was switched to Cipro because of the allergic reaction she had at that time which included lip and soft palate swelling patient was discharged with an EpiPen as well as a prescription for Cipro ED Course: Patient presenting with lip swelling and recently was hospitalized for her cat scratch in which she underwent antibiotics for an admission to the hospital she was given a dose of EpiPen here. 05/13/2025 at 0210: Patient was reevaluated with looks significantly better patient would like to leave he has been almost 2-1/2 hours since the epinephrine administration patient has an EpiPen prescription we will provide referral to rheumatology as well as allergy and immunology patient will be discharged home with return precautions and follow-up recommendations. This note was made utilizing voice recognition software. All attempts were made to correct spelling or other errors prior to note completion. However, due to the fast-paced nature of emergency medicine, some errors may still be present. Discharge Plan Triage Chief Complaint: Allergic Reaction ED Provider: Sonia Oshea Dx/Rx/DC Orders Clinical Impression: Angioedema of lips Instructions: ED Angioedema Prescriptions: No Action alprazolam 0.25 MG tablet 0.25 mg PO TID PRN PRN (Reason: Insomnia) escitalopram oxalate 20 mg tablet 20 mg PO DAILY Eliquis 5 mg Tablet 5 mg PO BID Qty: 60 2RF cephalexin 500 mg capsule 500 mg PO Q8H 3 Days Qty: 9 0RF ciprofloxacin HCl [Cipro] 500 mg tablet 500 mg PO BID 5 Days Qty: 10 0RF epinephrine 0.15 mg/0.3 mL auto-injector 0.15 mg IM Q30M PRN (Reason: anaphylaxis) Qty: 2 0RF Rx Instructions: do not exceed 12 doses per 24 hrs Lead to be used if you have a severe allergic reaction. clindamycin HCl [Cleocin HCl] 300 mg capsule 300 mg PO Q6H Qty: 28 0RF atorvastatin 40 mg Tablet 40 mg PO QHS Qty: 30 0RF meclizine 12.5 mg tablet 12.5 mg PO TID PRN (Reason: dizziness) Qty: 14 0RF Primary Care Provider: SELENA CALIXTO Referrals: Akbar Woody MD [Med Staff - [employer], Allergy & Immunology] - As soon as possible SELENA CALIXTO NP-C [Primary Care Provider, Internal Medicine] Gayatri Spangler MD [[facility], Rheumatology] - As soon as possible Activity Restrictions/Additional Instructions: I am providing you with referrals to allergy and immunology as well as rheumatology I would still follow-up with your primary care doctor may need testing for familial hereditary angioedema please return if getting worse Print Language: Norwegian Disposition Disposition: Home, Self Care
--- OUTSIDE RECORDS SUMMARY | 2025-05-13 00:11 | XMS RPT_ITS | CCD ---
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 Jennifer Santos Primary Care Provider Dr. Bran Alston Attending Provider Dr. 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 Jennifer Santos MD Primary Care Provider Dr. Jennifer Santos MD Referring Provider Ki Schultz Attending Provider JENNIFER SANTOS Primary Care Unavailable JENNIFER SANTOS Primary Care Unavailable KELLE PETER Attending Unavailable JENNIFER SANTOS Primary Care Unavailable Álvaro CH, Dr. Peace Primary Care Physician Dr. Jennifer Santos MD Referring Provider Ki Schultz Attending Physician Edi CH, Dr. Valerio Attending Physician [phone] Dr. Teodoro Daley MD Emergency Department Physician Alecia CH, Dr. Sotomayor Attending Physician Edi CH, Dr. Valerio Referring Provider Moon CH, Dr. Robledo Emergency Department Phys ician Celaya DO, Dr. Pedraza Admitting Physician Katherine vailable de [facility], Dr. Pedraza Nurse Practitioner Unav ailable [...] Dr. Kaye Nurse Practitioner Kimberly Blake MD, [facility] Nurse Practitioner Kimberly Courtney DO, Dr. Sotomayor Attending Physician Dawna CH, Dr. Durham Attending Physician [facility] Primary Care Unavailable Dawna Ryanashokdm Attending Unavailable [facility] Primary Care Unavailable Bran Alston Attending Unavailable Daley, Teodoro Referring Unavailable [facility] Primary Care Unavailable Duarte Crowe Consulting Unavailable Duarte Crowe Attending Unavailable Duarte Crowe Admitting Unavailable Bran Alston Consulting Unavailable Dl, Callie Zandra Attending Unavailable Benji Melchor Consulting Unavailable Rolandam, Callie Zandra Consulting Unavailable [facility] Primary Care Unavailable Neville Benito [...] Blake Consulting Unavailable Milo Celaya Consulting Unavailable [facility] Referring Unavailable [facility] Primary Care Unavailable Ki Schultz Attending Unavailable [facility] Primary Care Unavailable Teodoro Daley Attending Unavailable [facility] Primary Care Unavailable Darryn Baeza Attending Unavailable [facility] Primary Care Unavailable Neville Benito [...] Translations: [ampicillin] Drug Allergy 6 Rash, Itching [facility] (20 sources) apixaban; Translations: [APIXABAN] Drug Allergy 2 Swelling, Anaphylaxis [facility] Work Phone: (20 sources) rivaroxaban; Translations: [RIVAROXABAN] Drug Allergy 2 Swelling [facility] Work Phone: (6 sources) predniSONE; Translations: [prednisone] Drug Allergy 3 [facility] (1 source) Ampicillin Drug Allergy 5 [facility] (1 source) predniSONE Drug Allergy 5 [facility] Medications Current Medications Medication Drug [...] Comment on above: Take 1 capsule by [facility] twice daily. 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 Jennifer Santos MD Status:ADM [place] Location: [address] Assessment Plan Assessment/Plan (1) Cellulitis of [...] performed and neg except as noted above. [facility] Medical History Depression with anxiety Obesity (BMI [...] 81.7 H, Lymph % (Auto) 11.2 L, [place] % (Auto) 4.6, Eos % (Auto) 2.0, Baso % (Auto) 0.2, A bsolute Neuts (auto) 9.6 H, Absolute Lymphs (auto) 1.31, Nucleated RBC % 0, PT 16.3 H, INR 1.3, APTT 31.0, Lactic Acid 1.0 04/26/25 18:48: Urine Color Straw, Urine Clarity Clear, Urine pH 7.0, Ur Specific [place] 1.010, Urine Protein Negative, Urine Glucose (UA) [...] soft tissu (more content not included)... Normal [facility] Venous Duplex US, Unilateral on 04-27-2025 Venous Duplex US, Unilateral [facility] Cardi[facility] [address] [place] [address] Venous Duplex US, Unilateral 04/27/25 1343 MR#: [id number] Acct: [id number] Name: ILENE SHAW Rep #: [id number] : 1950 75 From: Marlo Storm MD Attending Dr: Dr. Callie Lizama MD Status: AD M IN Ordering Dr: Callie Lizama MD Date: 04/27/25 Location: [facility] Sex: F C Admitted: 04/26/25 Reason For [...] Date Dictated: 04/27/25 1343 Date Transcribed: 04/27/252238 Loom Fixer: Signed Normal [facility] CBC W/Diff, Automatedon 04-15 Absolute Lymph 1.31 X10 3/uL Normal 0.83-4.51 [facility] Comment on above: Performed By: #### L 300.3900, L300.4310, L100.0100, L500.4050, L503.6005 #### [facility] [address] [place], [address] Absolute Neut 9.6 X10 3/uL High 2.0-7.7 [facility] Comment on above: Performed By: #### L 300.3900, L300.4310, L100.0100, L500.4050, L503.6005 #### [facility] [address] [place], [address] Basophils/100 WBC (Bld) 0.2 % Normal 0-1 [facility] Comment on above: Performed By: #### L 300.3900, L300.4310, L100.0100, L500.4050, L503.6005 #### [facility] [address] [place], [address] Eosinophils/100 WBC (Bld) 2.0 % Normal 0-5 [facility] Comment on above: Performed By: #### L 300.3900, L300.4310, L100.0100, L500.4050, L503.6005 #### [facility] [address] [place], [address] Erythrocyte distribution width (RBC) [Ratio] 12.4 % Normal 11.6-14.6 [facility] Comment on above: Performed By: #### L 300.3900, L300.4310, L100.0100, L500.4050, L503.6005 #### [facility] [address] [place], [address] Hematocrit (Bld) [Volume fraction] 40.5 % Normal 37-47 [facility] Comment on above: Performed By: #### L 300.3900, L300.4310, L100.0100, L500.4050, L503.6005 #### [facility] [address] [place], [address] Hemoglobin (Bld) [Mass/Vol] 13.5 g/dL Normal 12.0-15.0 [facility] Comment on above: Performed By: #### L 300.3900, L300.4310, L100.0100, L500.4050, L503.6005 #### [facility] [address] [place], [address] IG% 0.300 Normal 0.0-0.9 [facility] Comment on above: Result Comment: IG% - Immature Granulocytes (promyelocytes, myelocytes and metamyelocytes) > 1% indicates that a LEFT SHIFT is Present. Performed By: #### L 300.3900, L300.4310, L100.0100, L500.4050, L503.6005 #### [facility] [address] [place], [address] Lymphocytes/100 WBC (Bld) 11.2 % Low 19-41 [facility] Comment on above: Performed By: #### L 300.3900, L300.4310, L100.0100, L500.4050, L503.6005 #### [facility] [address] [place], [address] MCH (RBC) [Entitic mass] 31.1 pg Normal 27.0-32.0 [facility] Comment on above: Performed By: #### L 300.3900, L300.4310, L100.0100, L500.4050, L503.6005 #### [facility] [address] [place], [address] MCHC (RBC) [Mass/Vol] 33.3 g/dL Normal 32-36 [facility] Comment on above: Performed By: #### L 300.3900, L300.4310, L100.0100, L500.4050, L503.6005 #### [facility] [address] [place], [address] MCV (RBC) [Entitic vol] 93.3 fL Normal 81-99 [facility] Comment on above: Performed By: #### L 300.3900, L300.4310, L100.0100, L500.4050, L503.6005 #### [facility] [address] [place], [address] Monocytes/100 WBC (Bld) 4.6 % Normal 0-10 [facility] Comment on above: Performed By: #### L 300.3900, L300.4310, L100.0100, L500.4050, L503.6005 #### [facility] [address] [place], [address] Neutrophils/100 WBC (Bld) 81.7 % High 47-70 [facility] Comment on above: Performed By: #### L 300.3900, L300.4310, L100.0100, L500.4050, L503.6005 #### [facility] [address] [place], [address] Nucleated RBC (Bld) [#/Vol] 0 10*3/uL Normal 0-5 [facility] Comment on above: Performed By: #### L 300.3900, L300.4310, L100.0100, L500.4050, L503.6005 #### [facility] [address] [place], [address] Platelet mean volume (Bld) [Entitic vol] 11.2 fL Normal 6.2-12.0 [facility] Comment on above: Performed By: #### L 300.3900, L300.4310, L100.0100, L500.4050, L503.6005 #### [facility] [address] [place], [address] Platelets (Bld) [#/Vol] 283 10*3/uL Normal 150-450 [facility] Comment on above: Performed By: #### L 300.3900, L300.4310, L100.0100, L500.4050, L503.6005 #### [facility] [address] [place], [address] RBC (Bld) [#/Vol] 4.34 10*6/uL Normal 4.2-5.4 [facility] Comment on above: Performed By: #### L 300.3900, L300.4310, L100.0100, L500.4050, L503.6005 #### [facility] [address] [place], [address] RDW SD 42.6 fl Normal 35.1-43.9 [facility] Comment on above: Performed By: #### L 300.3900, L300.4310, L100.0100, L500.4050, L503.6005 #### [facility] [address] [place], [address] WBC (Bld) [#/Vol] 11.7 10*3/uL High 4.4-11.0 [facility] Comment on above: Performed By: #### L 300.3900, L300.4310, L100.0100, L500.4050, L503.6005 #### [facility] [address] [place], [address] Comprehensive Metabolic Prof ilon 04-26-2025 Albumin [Mass/Vol] 3.7 g/dL Normal 3.4-4.8 [facility] Comment on above: Performed By: #### L 300.3900, L300.4310, L100.0100, L500.4050, L503.6005 #### [facility] [address] [place], [address] Albumin/Globulin [Mass ratio] 1.2 {ratio} Normal 0.9-2.4 [facility] Comment on above: Performed By: #### L 300.3900, L300.4310, L100.0100, L500.4050, L503.6005 #### [facility] [address] [place], [address] ALK PHOS 105 U/L High 35-104 [facility] Comment on above: Performed By: #### L 300.3900, L300.4310, L100.0100, L500.4050, L503.6005 #### [facility] [address] [place], [address] ALT [Catalytic activity/Vol] 31 U/L Normal <=34 [facility] Comment on above: Performed By: #### L 300.3900, L300.4310, L100.0100, L500.4050, L503.6005 #### [facility] [address] [place], [address] AST [Catalytic activity/Vol] 36 U/L High <=31 [facility] Comment on above: Result Comment: Hemo lysis present, Results??could be affected. ?? Performed By: #### L 300.3900, L300.4310, L100.0100, L500.4050, L503.6005 #### [facility] [address] [place], [address] Bilirubin [Mass/Vol] 0.75 mg/dL Normal 0.00-1.30 [facility] Comment on above: Performed By: #### L 300.3900, L300.4310, L100.0100, L500.4050, L503.6005 #### [facility] [address] [place], [address] BUN/CRE 13.1 RATIO Normal 10-20 [facility] Comment on above: Performed By: #### L 300.3900, L300.4310, L100.0100, L500.4050, L503.6005 #### [facility] [address] [place], [address] Calcium [Mass/Vol] 9.0 mg/dL Normal 7.6-11.0 [facility] Comment on above: Performed By: #### L 300.3900, L300.4310, L100.0100, L500.4050, L503.6005 #### [facility] [address] [place], [address] Chloride [Moles/Vol] 105 mmol/L Normal 98-108 [facility] Comment on above: Performed By: #### L 300.3900, L300.4310, L100.0100, L500.4050, L503.6005 #### [facility] [address] [place], [address] CO2 [Moles/Vol] 18.8 mmol/L Low 21.0-32.0 [facility] Comment on above: Performed By: #### L 300.3900, L300.4310, L100.0100, L500.4050, L503.6005 #### [facility] [address] [place], [address] Creatinine [Mass/Vol] 0.80 mg/dL Normal 0.70-1.20 [facility] Comment on above: Performed By: #### L 300.3900, L300.4310, L100.0100, L500.4050, L503.6005 #### [facility] [address] [place], [address] ECRCL 63.18 ml/min Normal 50-250 [facility] Comment on above: Performed By: #### L 300.3900, L300.4310, L100.0100, L500.4050, L503.6005 #### [facility] [address] [place], [address] GAP 13 Normal 5-15 [facility] Comment on above: Performed By: #### L 300.3900, L300.4310, L100.0100, L500.4050, L503.6005 #### [facility] [address] [place], [address] GFR/1.73 sq M.predicted among non-blacks MDRD (S/P/Bld) [Vol rate/Area] 77 mL/min/{1.73_m2} Normal >60 [facility] Comment on above: Result Comment: mL/m in/1.73m2 CKD-EPI Creatinine Equation (2020) Performed By: #### L 300.3900, L300.4310, L100.0100, L500.4050, L503.6005 #### [facility] [address] [place], [address] Globulin (S) [Mass/Vol] 3.2 g/dL Normal 2.2-4.2 [facility] Comment on above: Performed By: #### L 300.3900, L300.4310, L100.0100, L500.4050, L503.6005 #### [facility] [address] [place], [address] Glucose [Mass/Vol] 96 mg/dL Normal 70-99 [facility] Comment on above: Performed By: #### L 300.3900, L300.4310, L100.0100, L500.4050, L503.6005 #### [facility] [address] [place], [address] Potassium [Moles/Vol] 4.2 mmol/L Normal 3.3-5.1 [facility] Comment on above: Result Comment: Hemo lysis present, Results??could be affected. ?? Performed By: #### L 300.3900, L300.4310, L100.0100, L500.4050, L503.6005 #### [facility] [address] [place], [address] Sodium [Moles/Vol] 137 mmol/L Normal 133-145 [facility] Comment on above: Performed By: #### L 300.3900, L300.4310, L100.0100, L500.4050, L503.6005 #### [facility] [address] [place], [address] T PROT 6.8 g/dL Normal 5.9-8.4 [facility] Comment on above: Performed By: #### L 300.3900, L300.4310, L100.0100, L500.4050, L503.6005 #### [facility] [address] [place], [address] Urea nitrogen [Mass/Vol] 11 mg/dL Normal 4-19 [facility] Comment on above: Performed By: #### L 300.3900, L300.4310, L100.0100, L500.4050, L503.6005 #### [facility] [address] [place], [address] Emergency Department Summary on 04-26-2025 Emergency Department Summary [facility] Medical Records Department [address] [place] [address] Emergency Department Summary 04/26/25 MR#: [id number] Acct: [id number] Name: ILENE SHAW Rep #: [id number] : 1950 75 From: Darryn Baeza DO [...] other new injuries on the left side [facility] Medical History Depression with anxiety Obesity [...] follow commands knew that she was at [facility] year is 2024 Skin: Patient has erythema [...] Temperature Sour (more content not included)... Normal [facility] Extremity Upper without Cont raon 04-26-2025 Extremity Upper without Contra [facility] Imaging Services [address] [place] [address] Extremity Upper without Contra MR#: [id number] Acct: [id number] Name: ILENE SHAW Rep #: [id number] : 1950 F 75 From: Jaime Wiseman MD PCP: Dr. Jennifer Santos MD Status: ADM IN Study: Extremity Upper without Contra Date of Exam: 06/26/24 Exam# [id number] Ordering Dr: Duarte Crowe DO PROCEDURE: CT [...] erosion or periosteal reaction appreciated in the [id number]-sc-[id number]. Nonspecific mild generalized subcutaneous edema of the left arm, and visualized hand/wrist, possibly with mild cellulitic changes. No drainable fluid collection/abscess or subcutaneous emphysema is seen. CT/Extremity Upper without Contra IMPRESSION: 1. No acute or aggressive osseous abnormality. 2. Nonspecific generalized subcutaneous edema, possibly with cellulitic changes. 3. No drainable fluid collection/abscess or subcutaneous emphysema visualized. Reading Location: [id number] CC: Dr. Jennifer Santos MD; Dr. Duarte Crowe DO Loom Fixer: Signed Normal [facility] H AND P Exam - Hospitaliston 04-26-2025 H&P Exam - Hospitalist [facility] Medical Records Department [address] [place] [address] H P Exam - Hospitalist 04/26/251947 MR#: [id number] Acct: [id number] Name: ILENE SHAW Rep #: [id number] : 1950 75 From: Duarte Crowe DO PCP: Dr. Jenniefr Santos MD Status:ADM IN Location: [facility] [place] UE274-4 HPI - General General Date of Admission: 04/26/25 Date of Service: 04/26/25 Chief Complaint: Swelling and redness of the left arm and hand, water blisters on right hand and wrist HPI Narrative ILENE SHAW, is a 75 F who presents to the emergency room at [facility] for evaluation of swelling and redness [...] been forthcoming. Patient will be admitted to [place] [address] for cellulitis of the left arm, she will be maintained on vancomycin and Ancef, she will be given Benadryl in case some of this could be an allergic reaction. I had vascular surgery see the patient informally in the ER and it was recommended that the CT be obtained. He will see the patient again tomorrow. [facility] Medical History Depression with anxiety Obesity (BMI [...] Denies abdominal (more content not included)... Normal [facility] Hand Min 3 Viewson Hand Min 3 Views [facility] Imaging Services [address] [place] [address] Hand Min 3 Views MR#: [id number] Acct: [id number] Name: ILENE SHAW Rep #: [id number] : 1950 F 75 From: Esmer Rhodes PCP: Dr. Jennifer Santos MD Status: REG ER Study: Hand Min 3 Views Date of Exam: 04/26/25 Exam# [id number] Ordering Dr: Darryn Baeza DO PROCEDURE: HAND MIN 3 VIEWS 04/26/2025 REASON FOR EXAM: CELLULITIS TECHNIQUE: Procedure Code: VALENTIN Modality: DX Procedure: HAND MIN 3 VIEWS Laterality: Right COMPARISON: none RAD/Hand Min 3 Views IMPRESSION: No acute fracture or dislocations. Scattered mild degenerative changes. Moderate soft tissue edema/inflammation about the right head, less compared to left hand. No radiographic foreign body. Reading Location: [facility] CC: Dr. Jennifer Santos MD; Dr. Darryn Baeza DO Loom Fixer: Signed Normal [facility] Hand Min 3 Views [facility] Imaging Services [address] [place], [place] [id number] Hand Min 3 Views MR#: [id number] Acct: [id number] Name: ILENE SHAW Rep #: [id number] : 1950 F 75 From: Esmer Rhodes PCP: Dr. Jennifer Santos MD Status: REG ER Study: Hand Min 3 Views Date of Exam: 04/26/25 Exam# [id number] Ordering Dr: Darryn Baeza DO PROCEDURE: HAND MIN 3 VIEWS 04/26/2025 REASON FOR EXAM: CELLULITIS TECHNIQUE: Procedure Code: VALENTIN Modality: DX Procedure: HAND MIN 3 VIEWS Laterality: Left COMPARISON: none RAD/Hand Min 3 Views IMPRESSION: No acute fracture or dislocations. Scattered mild degenerative changes. Extensive soft tissue edema/inflammation about the dorsal aspect of the hand. No radiographic foreign body. Reading Location: [facility] CC: Dr. Jennifer Santos MD; Dr. Darryn Baeza DO Loom Fixer: Signed Normal [facility] Lactic Acidon 04-26-2025 Lactate [Moles/Vol] 1.0 mmol/L Normal 0.0-2.0 [facility] Comment on above: Order Comment: Y Performed By: #### L 300.3900, L300.4310, L100.0100, L500.4050, L503.6005 #### [facility] [address] [facility] [place], [place], [id number] Partial Thromboplast Timeon 04-26-2025 aPTT Coag (Bld) [Time] 31.0 s Normal 24.1-36.2 [facility] Comment on above: Performed By: #### L 300.3900, L300.4310, L100.0100, L500.4050, L503.6005 ####[facility] [address] [place], [address] Prothrombin Time w/INRon INR Coag (PPP) [Relative time] 1.3 {INR} Normal [facility] Comment on above: Performed By: #### L 300.3900, L300.4310, L100.0100, L500.4050, L503.6005 #### [facility] [address] [place], [address] PT Coag (PPP) [Time] 16.3 s High 11.7-14.9 [facility] Comment on above: Performed By: #### L 300.3900, L300.4310, L100.0100, L500.4050, L503.6005 #### [facility] [address] [place], [address] Urinalysis, Completeon 04-26 BACTERIA 1+ /hpf Normal None Seen [facility] Comment on above: Order Comment: BRITNI CTOR TO SPECIFY Performed By: #### L 400.0001 #### [facility] [address] [place], [address] EPI,SQUAMOUS 0-5 SEEN Normal 5-10 [facility] Comment on above: Order Comment: BRITNI CTOR TO SPECIFY Performed By: #### L 400.0001 #### [facility] [address] [place], [address] WBC 0-5 SEEN Normal 0-5 [facility] Comment on above: Order Comment: BRITNI CTOR TO SPECIFY Performed By: #### L 400.0001 #### [facility] [address] [place], [address] Mucus Ql (Urine sed) 0 SEEN Normal [facility] Comment on above: Order Comment: BRITNI CTOR TO SPECIFY Performed By: #### L 400.0001 #### [facility] [address] [place], [address] RBC 0 SEEN Normal 0-5 [facility] Comment on above: Order Comment: BRITNI CTOR TO SPECIFY Performed By: #### L 400.0001 #### [facility] [address] [place], [address] Basic Metabolic Profile (BMP )on 04-24-2025 BUN/CRE 13.4 RATIO Normal 10-20 [facility] Comment on above: Performed By: #### L 500.2500, L100.0100 ####[facility] [address] [place], [address] Calcium [Mass/Vol] 8.4 mg/dL Normal 7.6-11.0 [facility] Comment on above: Performed By: #### L 500.2500, L100.0100 ####[facility] [address] [place], [address] Chloride [Moles/Vol] 106 mmol/L Normal 98-108 [facility] Comment on above: Performed By: #### L 500.2500, L100.0100 ####[facility] [address] [place], [address] CO2 [Moles/Vol] 18.7 mmol/L Low 21.0-32.0 [facility] Comment on above: Performed By: #### L 500.2500, L100.0100 ####[facility] [address] [place], [address] Creatinine [Mass/Vol] 1.00 mg/dL Normal 0.70-1.20 [facility] Comment on above: Performed By: #### L 500.2500, L100.0100 ####[facility] [address] [place], [address] ECRCL 50.66 ml/min Normal 50-250 [facility] Comment on above: Performed By: #### L 500.2500, L100.0100 ####[facility] [address] [place], [address] GAP 11 Normal 5-15 [facility] Comment on above: Performed By: #### L 500.2500, L100.0100 ####[facility] [address] [place], [address] GFR/1.73 sq M.predicted among non-blacks MDRD (S/P/Bld) [Vol rate/Area] 59 mL/min/{1.73_m2} Low >60 [facility] Comment on above: Result Comment: mL/m in/1.73m2 CKD-EPI Creatinine Equation (2020) Performed By: #### L 500.2500, L100.0100 ####[facility] [address] [place], [address] Glucose [Mass/Vol] 101 mg/dL High 70-99 [facility] Comment on above: Performed By: #### L 500.2500, L100.0100 ####[facility] [address] [place], [address] Potassium [Moles/Vol] 4.3 mmol/L Normal 3.3-5.1 [facility] Comment on above: Result Comment: Hemo lysis present, Results??could be affected. ?? Performed By: #### L 500.2500, L100.0100 ####[facility] [address] [place], [address] Sodium [Moles/Vol] 136 mmol/L Normal 133-145 [facility] Comment on above: Performed By: #### L 500.2500, L100.0100 ####[facility] [address] [place], [address] Urea nitrogen [Mass/Vol] 13 mg/dL Normal 4-19 [facility] Comment on above: Performed By: #### L 500.2500, L100.0100 ####[facility] [address] [place], [address] CBC W/Diff, Automatedon 11- 0-2024 Absolute Lymph 1.39 X10 3/uL Normal 0.83-4.51 [facility] Comment on above: Performed By: #### L 500.2500, L100.0100 ####[facility] [address] [place], [address] Absolute Neut 8.3 X10 3/uL High 2.0-7.7 [facility] Comment on above: Performed By: #### L 500.2500, L100.0100 ####[facility] [address] [place], [address] Basophils/100 WBC (Bld) 0.3 % Normal 0-1 [facility] Comment on above: Performed By: #### L 500.2500, L100.0100 ####[facility] [address] [place], [address] Eosinophils/100 WBC (Bld) 2.1 % Normal 0-5 [facility] Comment on above: Performed By: #### L 500.2500, L100.0100 ####[facility] [address] [place], [address] Erythrocyte distribution width (RBC) [Ratio] 12.5 % Normal 11.6-14.6 [facility] Comment on above: Performed By: #### L 500.2500, L100.0100 ####[facility] [address] [place], [address] Hematocrit (Bld) [Volume fraction] 40.0 % Normal 37-47 [facility] Comment on above: Performed By: #### L 500.2500, L100.0100 ####[facility] [address] [place], [address] Hemoglobin (Bld) [Mass/Vol] 13.2 g/dL Normal 12.0-15.0 [facility] Comment on above: Performed By: #### L 500.2500, L100.0100 ####[facility] [address] [place], [address] IG% 0.500 Normal 0.0-0.9 [facility] Comment on above: Result Comment: IG% - Immature Granulocytes (promyelocytes, myelocytes and metamyelocytes) > 1% indicates that a LEFT SHIFT is Present. Performed By: #### L 500.2500, L100.0100 ####[facility] [address] [place], [address] Lymphocytes/100 WBC (Bld) 13.2 % Low 19-41 [facility] Comment on above: Performed By: #### L 500.2500, L100.0100 ####[facility] [address] [place], [address] MCH (RBC) [Entitic mass] 31.4 pg Normal 27.0-32.0 [facility] Comment on above: Performed By: #### L 500.2500, L100.0100 ####[facility] [address] [place], [address] MCHC (RBC) [Mass/Vol] 33.0 g/dL Normal 32-36 [facility] Comment on above: Performed By: #### L 500.2500, L100.0100 ####[facility] [address] [place], [address] MCV (RBC) [Entitic vol] 95.0 fL Normal 81-99 [facility] Comment on above: Performed By: #### L 500.2500, L100.0100 ####[facility] [address] [place], [address] Monocytes/100 WBC (Bld) 5.9 % Normal 0-10 [facility] Comment on above: Performed By: #### L 500.2500, L100.0100 ####[facility] [address] [place], [address] Neutrophils/100 WBC (Bld) 78.0 % High 47-70 [facility] Comment on above: Performed By: #### L 500.2500, L100.0100 ####[facility] [address] [place], [address] Nucleated RBC (Bld) [#/Vol] 0 10*3/uL Normal 0-5 [facility] Comment on above: Performed By: #### L 500.2500, L100.0100 ####[facility] [address] [place], [address] Platelet mean volume (Bld) [Entitic vol] 10.9 fL Normal 6.2-12.0 [facility] Comment on above: Performed By: #### L 500.2500, L100.0100 ####[facility] [address] [place], [address] Platelets (Bld) [#/Vol] 247 10*3/uL Normal 150-450 [facility] Comment on above: Performed By: #### L 500.2500, L100.0100 ####[facility] [address] [place], [address] RBC (Bld) [#/Vol] 4.21 10*6/uL Normal 4.2-5.4 [facility] Comment on above: Performed By: #### L 500.2500, L100.0100 ####[facility] [address] [place], [address] RDW SD 43.5 fl Normal 35.1-43.9 [facility] Comment on above: Performed By: #### L 500.2500, L100.0100 ####[facility] [address] [place], [address] WBC (Bld) [#/Vol] 10.6 10*3/uL Normal 4.4-11.0 [facility] Comment on above: Performed By: #### L 500.2500, L100.0100 ####[facility] [address] [facility] [place], [address] Emergency Department Summary on 04-24-2025 Emergency Department Summary [facility] Medical Records Department [address] [facility] [place] [address] Emergency Department Summary 04/24/25 MR#: [id number] Acct: [id number] Name: ILENE SHAW Rep #: [id number] : 1950 75 From: Darryn Baeza DO [...] she is not currently on any antibiotics [facility] Medical History Depression with anxiety Obesity [...] follow commands and that she was at [facility] year is 2024 sensation grossly intact [...] a andrea (more content not included)... [facility] Visit (INTMWS ) LISAILENE ORDAZ ([id number]) 1950 F Date Time Provider Department 04/13/25 10:40 AM KELLE PETER INTMWS During your visit today, we recorded the following information about you: Pulse Respiration Blood pressure Weight 77/minute 16/minute 130/80 88.9 kg Kelle Peter APRN.CNP 04/17/2025 8:20 AM Signed CC: Patient presents with: Recheck: [facility] ER follow up, DVT in leg HPI Ilene Shaw is a 75 year old female who presents today for follow up. 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 Patient/authorized sales representative marine supplies agreed to proceed Ilene is a 75-year-old [...] Eliquis on 03/05. - Describes sensation as the world was spinning around. - Dizziness persists, described as feeling off. [...] Screening Discontinued DATA REVIEWED: Outside chart from [facility] reviewed. Assessment/Plan 1. Acute embolism and thrombosis of deep vein of left lower extremity (HCC) (I82.402) 2. Dizziness and giddiness (R42) - Recent DVT of left inner thigh diagnosed on ; started on Eliquis with sub (more content not included)... Normal [facility] 12 Lead EKGon 04-07-2025 12 Lead EKG [facility] Cardiovascular Services [address] [place] [address] 12 Lead EKG 04/07/25 0046 MR#: [id number] Acct: [id number] Name: ILENE SHAW Rep #: [id number] : 1950 75 From: Roselia Toney MD Attending Dr: Dr. rBan Courtney DO Status: DIS IN Ordering Dr: Venkat Mustafa MD Date: 04/07/25 Location: [facility] Sex: F C Admitted: 04/07/25 Test Reason : DYSRHYTHMIA Blood Pressure : */* mmHG Vent. Rate : 62 BPM Atrial Rate : 62 BPM P-R Int : 196 ms QRS Dur : 74 ms QT Int : 450 ms P-R-T Axes : 49 5 61 degrees QTcB Int : 456 ms Normal sinus rhythm Normal ECG Confirmed by ROSELIA TONEY ([id number]), manager editorial ANTONIETA GONZALES ([id number]) on 04/10/2025 6:32:12 AM Referred By: Confirmed By: ROSELIA TONEY 04/10/25 0632 Date Roselia Toney MD CC: Dr. Venkat Mustafa MD; Dr. Jennifer Santos MD; Dr. Bran Courtnye DO Signed Normal [facility] Absolute lymphocyte countOrd ered By: Venkat Mustafa on 04-07-2025 Lymphocytes Auto (Unsp spec) [#/Vol] 2.13 10*3/uL 0.83-4.51 [facility] Absolute neutrophil countOrd ered By: Venkat Mustafa on 04-07-2025 Neutrophils (Bld) [#/Vol] 5.1 10*3/uL 2.0-7.7 [facility] Alcohol, Blood (Medical)-Ser umon 04-07-2025 SERUM ETOH < 10.1 Normal <=10.0 [facility] Comment on above: Result Comment: This test is for medical purposes only. The legal definition of intoxication varies according to local law. Performed By: #### L 501.9985, L501.9541, L505.5000, L501.9100 ####[facility] [address] [facility] [place], [place], [address] Amphetamine detection with 1 000 ng/mL as cutoffOrdered By: Milo Mcnally on 04-07-2025 Amphetamines Screen method >1000 ng/mL Ql (U) Negative < 200 ng/mL [facility] Anion gap in Serum or Plasma Ordered By: Venkat Mustafa on 04-07-2025 Anion gap [Moles/Vol] 10 mmol/L 5- [facility] Automated lymphocyte count a s percentage of total leukocytesOrdered By: Venkat Mustafa on 04-07-2025 Lymphocytes/100 WBC Auto (Unsp spec) 25.2 % - [facility] BUN/creatinine ratioOrdered By: Venkat Mustafa on 04-07-2025 Urea nitrogen/Creatinine [Mass ratio] 10.1 mg/mg 10- [facility] Basophil percentageOrdered B y: Venkat Mustafa on 04-07-2025 Basophils/100 WBC (Bld) 0.6 % 0-1 [facility] Bilirubin Test strip Ql (U)O rdered By: Venkat Mustafa on 04-07-2025 Bilirubin Ql (U) Negative Negative [facility] Bilirubin, totalOrdered By: Venkat Mustafa on 04-07-2025 Bilirubin [Mass/Vol] 0.31 mg/dL 0.00-1.30 [facility] Brain without Contraston Brain without Contrast [facility] Imaging Services [address] [place], [place] [address] Brain without Contrast MR#: [id number] Acct: [id number] Name: ILENE SHAW Rep #: [id number] : 1950 F 75 From: Kal Andrea MD PCP: Dr. Jennifer Santos MD Status: ADM IN Study: Brain without Contrast Date of Exam: 04/07/25 Exam# [id number] Ordering Dr: Milo Celaya DO PROCEDURE: BRAIN [...] acute brain abnormalities. Reading Location: [facility] CC: Dr. Jennifer Santos MD; Dr. Milo Celaya DO Loom Fixer: Signed Normal [facility] Brain/Head without Contrasto n 04-07-2025 Brain/Head without Contrast [facility] Imaging Services [address] [place] [address] Brain/Head without Contrast MR#: [id number] Acct: [id number] Name: ILENE SHAW Rep #: [id number] : 1950 F 75 From: Carter gil MD PCP: Dr. Jennifer Santos MD Status: REG ER Study: Brain/Head without Contrast Date of Exam: 03/16 10/07 Exam# [id number] Ordering Dr: Venkat Mustafa MD PROCEDURE: BRAIN/HEAD [...] cerebral mild microvascular ischemic changes. [facility] CC: Dr. Venkat Mustafa MD; Dr. Jennifer Santos MD Loom Fixer: Signed Normal [facility] CBC W/Diff, Automatedon 10-2 Absolute Lymph 2.13 X10 3/uL Normal 0.83-4.51 [facility] Comment on above: Performed By: #### L 500.4050, L100.0100 ####[facility] [address] [place], [address] Absolute Neut 5.1 X10 3/uL Normal 2.0-7.7 [facility] Comment on above: Performed By: #### L 500.4050, L100.0100 ####[facility] [address] [place], [address] Basophils/100 WBC (Bld) 0.6 % Normal 0-1 [facility] Comment on above: Performed By: #### L 500.4050, L100.0100 ####[facility] [address] [place], [address] Eosinophils/100 WBC (Bld) 7.8 % High 0-5 [facility] Comment on above: Performed By: #### L 500.4050, L100.0100 ####[facility] [address] [place], [address] Erythrocyte distribution width (RBC) [Ratio] 13.1 % Normal 11.6-14.6 [facility] Comment on above: Performed By: #### L 500.4050, L100.0100 ####[facility] [address] [place], [address] Hematocrit (Bld) [Volume fraction] 40.6 % Normal 37-47 [facility] Comment on above: Performed By: #### L 500.4050, L100.0100 ####[facility] [address] [place], [address] Hemoglobin (Bld) [Mass/Vol] 13.8 g/dL Normal 12.0-15.0 [facility] Comment on above: Performed By: #### L 500.4050, L100.0100 ####[facility] [address] [place], [address] IG% 0.200 Normal 0.0-0.9 [facility] Comment on above: Result Comment: IG% - Immature Granulocytes (promyelocytes, myelocytes and metamyelocytes) > 1% indicates that a LEFT SHIFT is Present. Performed By: #### L 500.4050, L100.0100 ####[facility] [address] [place], [address] Lymphocytes/100 WBC (Bld) 25.2 % Normal 19-41 [facility] Comment on above: Performed By: #### L 500.4050, L100.0100 ####[facility] [address] [place], [address] MCH (RBC) [Entitic mass] 31.1 pg Normal 27.0-32.0 [facility] Comment on above: Performed By: #### L 500.4050, L100.0100 ####[facility] [address] [place], [address] MCHC (RBC) [Mass/Vol] 34.0 g/dL Normal 32-36 [facility] Comment on above: Performed By: #### L 500.4050, L100.0100 ####[facility] [address] [place], [address] MCV (RBC) [Entitic vol] 91.4 fL Normal 81-99 [facility] Comment on above: Performed By: #### L 500.4050, L100.0100 ####[facility] [address] [place], [address] Monocytes/100 WBC (Bld) 6.5 % Normal 0-10 [facility] Comment on above: Performed By: #### L 500.4050, L100.0100 ####[facility] [address] [place], [address] Neutrophils/100 WBC (Bld) 59.7 % Normal 47-70 [facility] Comment on above: Performed By: #### L 500.4050, L100.0100 ####[facility] [address] [place], [address] Nucleated RBC (Bld) [#/Vol] 0 10*3/uL Normal 0-5 [facility] Comment on above: Performed By: #### L 500.4050, L100.0100 ####[facility] [address] [place], [address] Platelet mean volume (Bld) [Entitic vol] 11.9 fL Normal 6.2-12.0 [facility] Comment on above: Performed By: #### L 500.4050, L100.0100 ####[facility] [address] [place], [address] Platelets (Bld) [#/Vol] 273 10*3/uL Normal 150-450 [facility] Comment on above: Performed By: #### L 500.4050, L100.0100 ####[facility] [address] [place], [address] RBC (Bld) [#/Vol] 4.44 10*6/uL Normal 4.2-5.4 [facility] Comment on above: Performed By: #### L 500.4050, L100.0100 ####[facility] [address] [place], [address] RDW SD 44.1 fl High 35.1-43.9 [facility] Comment on above: Performed By: #### L 500.4050, L100.0100 ####[facility] [address] [place], [address] WBC (Bld) [#/Vol] 8.5 10*3/uL Normal 4.4-11.0 [facility] Comment on above: Performed By: #### L 500.4050, L100.0100 ####[facility] [address] [place], [address] CTA Head AND Neck W/ Contras ton 04-07-2025 CTA Head AND Neck W/ Contrast [facility] Imaging Services [address] [place] [address] CTA Head AND Neck W/ Contrast MR#: [id number] Acct: [id number] Name: ILENE SHAW Rep #: [id number] : 1950 F 75 From: Carter gil MD PCP: Dr. Jennifer Santos MD Status: [facility] ER Study: CTA Head AND Neck W/ Contrast Date of Exam: Exam# [id number] Ordering Dr: Venkat Mustafa MD PROCEDURE: CTA [...] dilatation or dissecting intimal flaps. Reading Location: [place] [address] CC: Dr. Venkat Mustafa MD; Dr. Jennifer Santos MD Loom Fixer: Signed Normal [facility] Calculated very low density lipoprotein (VLDL) cholesterol measurementOrdered By: Milo Mcnally on 04-07-2025 Calculated very low density lipoprotein (VLDL) cholesterol measurement 25 mg/dL 5-40 [facility] Carbon dioxide, total [Moles /volume] in Central venous bloodOrdered By: Venkat Mustafa on 04-07-2025 CO2 [Moles/Vol] 26.3 mmol/L 21.0-32.0 [facility] Carotid Duplex Ultrasoundon 04-07-2025 Carotid Duplex Ultrasound [facility] Cardiovascular Services [address] [place] [address] Carotid Duplex Ultrasound 04/07/25 1032 MR#: [id number] Acct: [id number] Name: ILENE SHAW Rep #: [id number] : 1950 75 From: Marlo Storm MD Attending Dr: Dr. Bran Courtney DO Status: DIS IN Ordering Dr: Milo Celaya DO Date: 04/07/25 Location: PCU Sex: F C Admitted: 04/07/25 Reason For [...] the left vertebral artery. Procedure Carotid Duplex 28802. This is a Carotid Duplex examination using [...] Date Dictated: 04/07/25 1032 Date Transcribed: 04/08/251610 Loom Fixer: Signed Normal [facility] Chloride assayOrdered By: Kenan Mustafa on 04-07-2025 Chloride [Moles/Vol] 105 mmol/L 98-108 [facility] Comprehensive Metabolic Prof ilon 04-07-2025 Albumin [Mass/Vol] 3.9 g/dL Normal 3.4-4.8 [facility] Comment on above: Performed By: #### L 500.4050, L100.0100 ####[facility] [address] [place], [address] Albumin/Globulin [Mass ratio] 1.3 {ratio} Normal 0.9-2.4 [facility] Comment on above: Performed By: #### L 500.4050, L100.0100 ####[facility] [address] [place], [address] ALK PHOS 88 U/L Normal 35-104 [facility] Comment on above: Performed By: #### L 500.4050, L100.0100 ####[facility] [address] [place], [address] ALT [Catalytic activity/Vol] 9 U/L Normal <=34 [facility] Comment on above: Performed By: #### L 500.4050, L100.0100 ####[facility] [address] [place], [address] AST [Catalytic activity/Vol] 26 U/L Normal <=31 [facility] Comment on above: Performed By: #### L 500.4050, L100.0100 ####[facility] [address] [place], [address] Bilirubin [Mass/Vol] 0.31 mg/dL Normal 0.00-1.30 [facility] Comment on above: Performed By: #### L 500.4050, L100.0100 ####[facility] [address] [place], [address] BUN/CRE 10.1 RATIO Normal 10-20 [facility] Comment on above: Performed By: #### L 500.4050, L100.0100 ####[facility] [address] [place], [address] Calcium [Mass/Vol] 8.8 mg/dL Normal 7.6-11.0 [facility] Comment on above: Performed By: #### L 500.4050, L100.0100 ####[facility] [address] [place], [address] Chloride [Moles/Vol] 105 mmol/L Normal 98-108 [facility] Comment on above: Performed By: #### L 500.4050, L100.0100 ####[facility] [address] [place], [address] CO2 [Moles/Vol] 26.3 mmol/L Normal 21.0-32.0 [facility] Comment on above: Performed By: #### L 500.4050, L100.0100 ####[facility] [address] [place], [address] Creatinine [Mass/Vol] 0.86 mg/dL Normal 0.70-1.20 [facility] Comment on above: Performed By: #### L 500.4050, L100.0100 ####[facility] [address] [place], [address] ECRCL 57.91 ml/min Normal 50-250 [facility] Comment on above: Performed By: #### L 500.4050, L100.0100 ####[facility] [address] [place], [address] GAP 10 Normal 5-15 [facility] Comment on above: Performed By: #### L 500.4050, L100.0100 ####[facility] [address] [place], [address] GFR/1.73 sq M.predicted among non-blacks MDRD (S/P/Bld) [Vol rate/Area] 70 mL/min/{1.73_m2} Normal >60 [facility] Comment on above: Result Comment: mL/m in/1.73m2 CKD-EPI Creatinine Equation (2020) Performed By: #### L 500.4050, L100.0100 ####[facility] [address] [place], [address] Globulin (S) [Mass/Vol] 3.1 g/dL Normal 2.2-4.2 [facility] Comment on above: Performed By: #### L 500.4050, L100.0100 ####[facility] [address] [place], [address] Glucose [Mass/Vol] 124 mg/dL High 70-99 [facility] Comment on above: Performed By: #### L 500.4050, L100.0100 ####[facility] [address] [place], [address] Potassium [Moles/Vol] 3.8 mmol/L Normal 3.3-5.1 [facility] Comment on above: Performed By: #### L 500.4050, L100.0100 ####[facility] [address] [place], [address] Sodium [Moles/Vol] 142 mmol/L Normal 133-145 [facility] Comment on above: Performed By: #### L 500.4050, L100.0100 ####[facility] [address] [place], [address] T PROT 6.9 g/dL Normal 5.9-8.4 [facility] Comment on above: Performed By: #### L 500.4050, L100.0100 ####[facility] [address] [place], [address] Urea nitrogen [Mass/Vol] 9 mg/dL Normal 4-19 [facility] Comment on above: Performed By: #### L 500.4050, L100.0100 ####[facility] [address] [place], [address] Echo Complete W/ Contraston 04-07-2025 Echo Complete W/ Contrast [facility] Cardiovascular Services [address] [place] [address] Echo Complete W/ Contrast 04/07/25 0950 MR#: [id number] Acct: [id number] Name: ILENE SHAW Rep #: [id number] : 1950 75 From: Roselia Toney MD [...] DO Date Dictated: 04/07/2550 Date Transcribed: 04/07/251616 Loom Fixer: Signed Normal [facility] Emergency Department Summary on 04-07-2025 Emergency Department Summary [facility] Medical Records Department [address] [place] [address] Emergency Department Summary 04/07/25 MR#: [id number] Acct: [id number] Name: ILENE SHAW Rep #: [id number] : 1950 75 From: Venkat Mustafa MD [...] onset of dizziness and confusion today around 4138-0441 after taking Eliquis. However, patient keeps saying [...] well as 81 mg aspirin at night. [facility] Medical History Vaginal candidiasis Acute bronchitis, [...] PERRL a (more content not included)... Normal [facility] Eosinophil percentageOrdered By: Venkat Mustafa on 04-07-2025 Eosinophils/100 WBC (Bld) 7.8 % High 0-5 [facility] Erythrocyte distribution wid th ratioOrdered By: Venkat Mustafa on 04-07-2025 Erythrocyte distribution width (RBC) [Ratio] 13.1 % 11.6-14.6 [facility] Erythrocyte distribution wid th standard deviationOrdered By: Venkat Mustafa on 04-07-2025 Erythrocyte distribution width (RBC) [Ratio] 44.1 fl High 35.1-43.9 [facility] Free T3on 04-07-2025 Free T3 [Mass/Vol] 3.1 pg/mL Normal 2.18-3.98 [facility] Comment on above: Performed By: #### L 506.0400, L501.07483 ####[facility] [address] [place], [place], [address] Free J3Fnojwmw By: Milo lopes on 04-07-2025 Free T3 [Mass/Vol] 3.1 pg/mL 2.18-3.98 [facility] Glomerular filtration rate ( GFR) estimation/1.73 sq m using serum, plasma, or whole bOrdered By: Venkat Mustafa on 04-07-2025 GFR/1.73 sq M.predicted among non-blacks MDRD (S/P/Bld) [Vol rate/Area] 70 mL/min/{1.73_m2} >60 [facility] Comment on above: mL/min/1.73m2 CKD-EP I Creatinine Equation (2020) H AND P Exam - Hospitaliston 04-07-2025 H&P Exam - Hospitalist [facility] Medical Records Department [address] [place] [address] H P Exam - Hospitalist 04/07/25 0249 MR#: [id number] Acct: [id number] Name: ILENE SHAW Rep #: [id number] : 1950 75 From: Milo Celaya DO PCP: Dr. Jennifer Santos MD Status:ADM IN [facility] H[facility] - General General Date of Admission: [...] renal calculi and OA who presents to [facility] ER complaining of dizziness and confusion. [...] is expected to extend beyond 2 midnights. [facility] Medical History Vaginal candidiasis Acute bronchitis, unspecified [...] .Route 04/04 Unknown Rx a dose pack (EliStir DVT-PE Treat .COMPLEX #74 tabs 30D Start) [...] or jaundice. (more content not included)... Normal [facility] Hematocrit Auto (Bld) [Volum e fraction]Ordered By: Venkat Mustafa on 04-07-2025 Hematocrit (Bld) [Volume fraction] 40.6 % 37-47 [facility] Hemoglobin A1con 04-07-2025 HbA1c (Bld) [Mass fraction] 5.3 % Normal <=5.6 [facility] Comment on above: Result Comment: Norm al < 5.7 % Prediabetic 5.7 - 6.4 % Diabetic >or= 6.5 % Please note range changes. Performed By: #### L 501.9985, L501.9520, L505.5000, L501.9100 ####[facility] [address] [place], [address] Hemoglobin A1c percentageOrd ered By: Milo Mcnally on 04-07-2025 HbA1c (Bld) [Mass fraction] 5.3 % <5.7 [facility] Comment on above: Normal < 5.7 % Predi abetic 5.7 - 6.4 % Diabetic >or= 6.5 % Please note range changes. Hemoglobin measurementOrdere d By: Venkat Mustafa on 04-07-2025 Hemoglobin (Bld) [Mass/Vol] 13.8 g/dL 12.0-15.0 [facility] Immature granulocytes/100 WB C Auto (Bld)Ordered By: Venkat Mustafa on 04-07-2025 Immature granulocytes/100 WBC (Bld) 0.200 % 0.0-0.9 [facility] Comment on above: IG% - Immature Granu locytes (promyelocytes, myelocytes and metamyelocytes) > 1% indicates that a LEFT SHIFT is Present. Ketones Test strip Ql (U)Ord ered By: Venkat Mustafa on 04-07-2025 Ketones Ql (U) Negative Negative [facility] LDL calc ser/plasOrdered By: Milo Mcnally on 04-07-2025 Cholesterol in LDL [Mass/Vol] 134 mg/dL [facility] Comment on above: Tybdtacwpp=155-699 m g/dL & Higher Zxpq=208 mg/dL or greaterSampson Equation 2020 for LDL-C Laboratory - Chemistry and C hemistry - challengeOrdered By: Venkat Mustafa on 04-07-2025 AST [Catalytic activity/Vol] 26 U/L <32 [facility] Lipid Profileon 04-07-2025 CHOL:HDL 4.88 Normal [facility] Comment on above: Order Comment: Comme nts: NPO at [place] prior to lipid panel Performed By: #### L 500.4100 ####[facility] [address] [place], [address] Cholesterol [Mass/Vol] 197 mg/dL Normal <=200 [facility] Comment on above: Order Comment: Comme nts: NPO at [place] prior to lipid panel Result Comment: Chol esterol level, Desirable <200 mg/dL Borderline high cholesterol 200-239 mg/dL High cholesterol >=240 mg/dL Recommendations of the NCEP Adult Treatment Panel for the following risk-cutoff thresholds for the [place] population. Performed By: #### L 500.4100 ####[facility] [address] [place], [address] Cholesterol in HDL [Mass/Vol] 40 mg/dL Normal [facility] Comment on above: Order Comment: Comme nts: NPO at [place] prior to lipid panel Result Comment: Maryuri onal Cholesterol Education Program (NCEP) guidelines: <40 mg/dL: Low HDL-cholesterol (major risk factor for CHD) >= 60 mg/dL: High HDL-cholesterol (negative risk factor for CHD) HDL-cholesterol is affected by a number of factors, e.g. smoking, exercise, hormones, sex and age. Performed By: #### L 500.4100 ####[facility] [address] [place], [address] Cholesterol in LDL [Mass/Vol] 134 mg/dL Normal [facility] Comment on above: Order Comment: Comme nts: NPO at [place] prior to lipid panel Result Comment: Bord lbafre=088-286 mg/dL Higher Fpii=435 mg/dL or greater Rivas Equation 2020 for LDL-C Performed By: #### L 500.4100 ####[facility] [address] [place], [address] Cholesterol in VLDL [Mass/Vol] 25 mg/dL Normal 5-40 [facility] Comment on above: Order Comment: Comme nts: NPO at [place] prior to lipid panel Performed By: #### L 500.4100 ####[facility] [address] [place], [place], [id number] Triglyceride [Mass/Vol] 124 mg/dL Normal [facility] Comment on above: Order Comment: Comme nts: NPO at [place] prior to lipid panel Result Comment: The drugs N-Acetylcysteine and Metamizole may falsely depress this assay. Normal range: <150 mg/dL Borderline High: 150-199 mg/dL High: 200-499 mg/dL Very High: >500 mg/dL Performed By: #### L 500.4100 ####[facility] [address] [facility] [place], [place], [id number] MCV (mean corpuscular volume ) determinationOrdered By: Venkat Mustafa on 04-07-2025 MCV (RBC) [Entitic vol] 91.4 fL 81-99 [facility] MR/CON.PCM.NEon 04-07-2025 MR/CON.PCM.NE [facility] Medical Records Department [address] [place] [address] Consultation - Neurology 04/07/25 1629 MR#: [id number] Acct: [id number] Name: ILENE SHAW Rep #: [id number] : 1950 75 From: Alen Gray MD PCP: Dr. Jennifer Santos MD Status:ADM IN Location: [place] [id number] Assessment and Plan: Neuro Assessment/Plan ILENE SHAW [...] appropriate treatment and workup. Alen Gray MD Anesthesiologist And Critical Care, U Teleneurology HPI Consult Data Date of Consult: [...] Here she has been walkign through the halls without difficulty. [facility] Medical History Vaginal candidiasis Acute bronchitis, unspecified [...] Position Eugenio (more content not included)... Normal [facility] Mean corpuscular hemoglobin (MCH) determinationOrdered By: Venkat Mustafa on 04-07-2025 MCH (RBC) [Entitic mass] 31.1 pg 27.0-32.0 [facility] Mean corpuscular hemoglobin concentration (MCHC) determinationOrdered By: Venkat Mustafa on 04-07-2025 MCHC (RBC) [Mass/Vol] 34.0 g/dL 32-36 [facility] Mean platelet volume determi nationOrdered By: Venkat Mustafa on 04-07-2025 Platelet mean volume (Bld) [Entitic vol] 11.9 fL 6.2-12.0 [facility] Microscopic analysis of urin e for red blood cells (RBC)Ordered By: Venkat Mustafa on 04-07-2025 Microscopic analysis of urine for red blood cells (RBC) 0 SEEN /hpf 0-5 [facility] Monocyte percentageOrdered B y: Venkat Mustafa on 04-07-2025 Monocytes/100 WBC (Bld) 6.5 % 0-10 [facility] Mucus LM Ql (Urine sed)Order ed By: Venkat Mustafa on 04-07-2025 Mucus Ql (Urine sed) 0 SEEN /hpf [facility] Neutrophil percentageOrdered By: Venkat Mustafa on 04-07-2025 Neutrophils/100 WBC (Bld) 59.7 % 47-70 [facility] Nitrite Test strip Ql (U)Ord ered By: Venkat Mustafa on 04-07-2025 Nitrite Ql (U) Negative Negative [facility] No Panel InformationOrdered By: Milo Mcnally on 04-07-2025 Urine Buprenorphine Qualitative Negative < 200 ng/mL [facility] Urine Oxycodone Screen Negative < 100 ng/mL [facility] Nucleated red blood cell per centageOrdered By: Venkat Mustafa on 04-07-2025 Nucleated RBC/100 WBC (Bld) [Ratio] 0 % 0-5 [facility] Platelet countOrdered By: Kenan Mustafa on 04-07-2025 Platelets (Bld) [#/Vol] 273 10*3/uL 150-450 [facility] Potassium measurement (mass/ volume)Ordered By: Venkat Mustafa on 04-07-2025 Potassium (Unsp spec) [Mass/Vol] 3.8 mmol/L 3.3-5.1 [facility] Protein Test strip Ql (U)Ord ered By: Venkat Mustafa on 04-07-2025 Protein Ql (U) Negative Negative [facility] Quantitative urine opiates m easurementOrdered By: Milo Mcnally on 04-07-2025 Opiates Ql (U) Negative < 300 ng/mL [facility] RBC Auto (Bld) [#/Vol]Ordere d By: Venkat Mustafa on 04-07-2025 RBC (Bld) [#/Vol] 4.44 10*6/uL 4.2-5.4 [facility] Screening total cholesterol/ high density lipoprotein (HDL) cholesterol ratioOrdered By: Milo Mcnally on 04-07-2025 Cholesterol.total/Chol esterol in HDL [Mass ratio] 4.88 {ratio} [facility] Screening urine fentanyl leonid surementOrdered By: Milo Mcnally on 04-07-2025 fentaNYL Screen Ql (U) Negative <5 ng/mL [facility] Comment on above: CONFIRMATORY TESTING FOR ALL [...] must be ordered separately. Use test mnemonic: RUST Serum creatinine measurement (mass/volume)Ordered By: Venkat Mustafa on 04-07-2025 Creatinine [Mass/Vol] 0.86 mg/dL 0.70-1.20 [facility] Serum globulin measurementOr dered By: Venkat Mustafa on 04-07-2025 Globulin (S) [Mass/Vol] 3.1 g/dL 2.2-4.2 [facility] Serum glucose measurement (m ass/volume)Ordered By: Venkat Mustafa on 04-07-2025 Glucose [Mass/Vol] 124 mg/dL High 70-99 [facility] Serum or plasma alanine william otransferase (ALT) measurementOrdered By: Venkat Mustafa on 04-07-2025 ALT [Catalytic activity/Vol] 9 U/L <35 [facility] Serum or plasma albumin iwnoa urement (mass/volume)Ordered By: Venkat Mustafa on 04-07-2025 Albumin [Mass/Vol] 3.9 g/dL 3.4-4.8 [facility] Serum or plasma albumin/glob ulin mass ratioOrdered By: Venkat Mustafa on 04-07-2025 Albumin/Globulin [Mass ratio] 1.3 {ratio} 0.9-2.4 [facility] Serum or plasma alkaline alma sphatase measurementOrdered By: Venkat Mustafa on 04-07-2025 ALP [Catalytic activity/Vol] 88 U/L 35-104 [facility] Serum or plasma calcium iwona urement (mass/volume)Ordered By: Venkat Mustafa on 04-07-2025 Calcium [Mass/Vol] 8.8 mg/dL 7.6-11.0 [facility] Serum or plasma cholesterol in HDL measurement (mass/volume)Ordered By: Milo Mcnally on 04-07-2025 Cholesterol in HDL [Mass/Vol] 40 mg/dL >40 [facility] Comment on above: National Cholesterol Education Program (NCEP) guidelines:<40 mg/dL: Low HDL-cholesterol (major risk factor for CHD)>= 60 mg/dL: High HDL-cholesterol (negative risk factor for CHD)HDL-cholesterol is affected by a number of factors, e.g. smoking, exercise, hormones, sex and age. Serum or plasma cholesterol measurement (mass/volume)Ordered By: Milo Mcnally on 04-07-2025 Cholesterol [Mass/Vol] 197 mg/dL <201 [facility] Comment on above: Cholesterol level, D esirable <200 mg/dLBorderline high cholesterol 200-239 mg/dLHigh cholesterol >=240 mg/dLRecommendations of the NCEP Adult Treatment Panel for the following risk-cutoff thresholds for the [place] population. Serum or plasma ethanol iwona urement (mass/volume)Ordered By: Milo Mcnally on 04-07-2025 Ethanol [Mass/Vol] mg/dL <10.1 [facility] Comment on above: This test is for med ical purposes only. The legal definition of intoxication varies according to local law. Serum or plasma urea nitroge n measurement (mass/volume)Ordered By: Venkat Mustafa on 04-07-2025 Urea nitrogen [Mass/Vol] 9 mg/dL 4-19 [facility] Sodium levelOrdered By: Andrew Mustafa on 04-07-2025 Sodium [Moles/Vol] 142 mmol/L 133-145 [facility] Squamous epithelial cells de tection in urine sediment by light microscopyOrdered By: Venkat Mustafa on 04-07-2025 Epithelial cells.squamous LM Ql (Urine sed) 0-5 SEEN /hpf 5-10 [facility] T4 Free Directon 04-07-2025 T4 FREE DIRECT 0.80 ng/dL Normal 0.76-1.46 [facility] Comment on above: Performed By: #### L 506.0400, L501.87696 ####[facility] [address] [place], [place], [id number] T4 freeOrdered By: Milo lopes on 04-07-2025 Free T4 [Mass/Vol] 0.80 ng/dL 0.76-1.46 [facility] TSH DL <= 0.005 mIU/L QnOrde red By: Milo Mcnally on 04-07-2025 TSH Qn 8.080 uIU/mL High 0.300-4.200 [facility] Thyroid Stim Hormone (TSH)on 04-07-2025 TSH 8.080 uIU/mL High 0.300-4.200 [facility] Comment on above: Performed By: #### L 501.9985, L501.9520, L505.5000, L501.9100 ####[facility] [address] [place], [place], [id number] Total proteinOrdered By: Taylor Mustafa on 04-07-2025 Protein [Mass/Vol] 6.9 g/dL 5.9-8.4 [facility] Triglycerides measurementOrd ered By: Milo Mcnally on 04-07-2025 Triglyceride [Mass/Vol] 124 mg/dL <199 [facility] Comment on above: The drugs N-Acetylcy steine and Metamizole may falsely depress this assay. Normal range: <150 mg/dLBorderline High: 150-199 mg/dLHigh: 200-499 mg/dLVery High: >500 mg/dL Urinalysis, Completeon 04-07 BACTERIA RARE Normal None Seen [facility] Comment on above: Order Comment: COLLE CTOR TO SPECIFY Performed By: #### L 400.0001 ####[facility] [address] [place], [address] EPI,SQUAMOUS 0-5 SEEN Normal 5-10 [facility] Comment on above: Order Comment: COLLE CTOR TO SPECIFY Performed By: #### L 400.0001 ####[facility] [address] [place], [address] Mucus Ql (Urine sed) 0 SEEN Normal [facility] Comment on above: Order Comment: BRITNI CTOR TO SPECIFY Performed By: #### L 400.0001 ####[facility] [address] [place], [address] RBC 0 SEEN Normal 0-5 [facility] Comment on above: Order Comment: BRITNI CTOR TO SPECIFY Performed By: #### L 400.0001 ####[facility] [address] [place], [address] WBC 0 SEEN Normal 0-5 [facility] Comment on above: Order Comment: BRITNI CTOR TO SPECIFY Performed By: #### L 400.0001 ####[facility] [address] [place], [address] Urine Drug Screen (VISTA)on 04-07-2025 AMPHETAMINES Negative Normal <1000 ng/mL [facility] Comment on above: Performed By: #### L 501.9985, L501.9520, L505.5000, L501.9100 ####[facility] [address] [place], [address] BARBITIURATES Negative Normal < 200 ng/mL [facility] Comment on above: Performed By: #### L 501.9985, L501.9520, L505.5000, L501.9100 ####[facility] [address] [place], [address] BENZODIAZIPINE Negative Normal < 200 ng/mL [facility] Comment on above: Performed By: #### L 501.9985, L501.9520, L505.5000, L501.9100 ####[facility] [address] [facility] [address] BUP Ur Drug Scr Negative Normal < 200 ng/mL [facility] Comment on above: Performed By: #### L 501.9985, L501.9520, L505.5000, L501.9100 ####[facility] [address] [facility] [address] COCAINE Negative Normal < 300 ng/mL [facility] Comment on above: Performed By: #### L 501.9985, L501.9520, L505.5000, L501.9100 ####[facility] [address] [place], [address] Fentanyl Negative Normal <5 ng/mL [facility] Comment on above: Result Comment: CONF [...] By: #### L 501.9985, L501.9520, L505.5000, L501.9100 ####[facility] [address] [facility] [address] METHADONE Negative Normal < 300 ng/mL [facility] Comment on above: Performed By: #### L 501.9985, L501.9520, L505.5000, L501.9100 ####[facility] [address] [place], [address] OPIATES Negative Normal < 300 ng/mL [facility] Comment on above: Performed By: #### L 501.9985, L501.9520, L505.5000, L501.9100 ####[facility] [address] [place], [address] OXYCODONE Negative Normal < 100 ng/mL [facility] Comment on above: Performed By: #### L 501.9985, L501.9520, L505.5000, L501.9100 ####[facility] [address] [place], [address] PCP Negative Normal < 25 ng/mL [facility] Comment on above: Performed By: #### L 501.9985, L501.9520, L505.5000, L501.9100 ####[facility] [address] [place], [address] THC Negative Normal < 50 ng/mL [facility] Comment on above: Performed By: #### L 501.9985, L501.9520, L505.5000, L501.9100 ####[facility] [address] [place], [address] Urine benzodiazepine levelOr dered By: Milo Mcnally on 04-07-2025 Benzodiazepines Ql (U) Negative < 200 ng/mL [facility] Urine clarityOrdered By: Taylor Mustafa on 04-07-2025 Clarity (U) Clear Clear [facility] Urine cocaine levelOrdered B y: Milo Mcnally on 04-07-2025 Cocaine Ql (U) Negative < 300 ng/mL [facility] Urine color determinationOrd ered By: Venkat Mustafa on 04-07-2025 Color (U) Yellow Yellow [facility] Urine ybpyb-4-lkdenfcoqbywqp abinol (THC) measurementOrdered By: Milo Mcnally on 04-07-2025 Cannabinoids Screen Ql (U) Negative < 50 ng/mL [facility] Urine glucose detectionOrder ed By: Venkat Mustafa on 04-07-2025 Glucose Ql (U) Normal mg/dl Normal [facility] Urine leukocyte esterase det ection by dipstickOrdered By: Venkat Mustafa on 04-07-2025 Leukocyte esterase Test strip Ql (U) Negative Negative [facility] Urine pHOrdered By: Venkat Mustafa on 04-07-2025 pH (U) 7.0 [pH] 5.0 - 8.0 [facility] Urine phencyclidine (PCP) de tectionOrdered By: Milo Mcnally on 04-07-2025 Phencyclidine Ql (U) Negative < 25 ng/mL [facility] Urine sediment bacteria coun t by microscopy (number/high power field)Ordered By: Venkat Mustafa on 04-07-2025 Bacteria LM.HPF (Urine sed) [#/Area] RARE /hpf None Seen [facility] Urine specific gravity measu rementOrdered By: Venkat Mustafa on 04-07-2025 Specific gravity (U) [Rel density] 1.010 1.002-1.030 [facility] Urine urobilinogen measureme ntOrdered By: Venkat Mustafa on 04-07-2025 Urobilinogen Ql (U) Normal mg/dl Normal [facility] White blood cell (WBC) count Ordered By: Venkat Mustafa on 04-07-2025 WBC (Bld) [#/Vol] 8.5 10*3/uL 4.4-11.0 [facility] White blood cell countOrdere d By: Venkat Mustafa on 04-07-2025 White blood cell count 0 SEEN /hpf 0-5 [facility] Absolute lymphocyte countOrd ered By: Teodoro Daley on 04-04-2025 Lymphocytes Auto (Unsp spec) [#/Vol] 1.18 10*3/uL 0.83-4.51 [facility] Absolute neutrophil countOrd ered By: Teodoro Daley on 04-04-2025 Neutrophils (Bld) [#/Vol] 5.8 10*3/uL 2.0-7.7 [facility] Anion gap in Serum or Plasma Ordered By: Teodoro Daley on 04-04-2025 Anion gap [Moles/Vol] 9 mmol/L 5-15 [facility] Automated lymphocyte count a s percentage of total leukocytesOrdered By: Teodoro Daley on 04-04-2025 Lymphocytes/100 WBC Auto (Unsp spec) 14.8 % Low 19-41 [facility] BUN/creatinine ratioOrdered By: Teodoro Daley on 04-04-2025 Urea nitrogen/Creatinine [Mass ratio] 7.8 mg/mg Low - [facility] Basic Metabolic Profile (BMP )on 04-04-2025 BUN/CRE 7.8 RATIO Low - [facility] Comment on above: Performed By: #### L 500.2500, L100.0100 #### [facility] [address] [place], [address] Calcium [Mass/Vol] 8.9 mg/dL Normal 7.6-11.0 [facility] Comment on above: Performed By: #### L 500.2500, L100.0100 #### [facility] [address] [place], [address] Chloride [Moles/Vol] 109 mmol/L High 98-108 [facility] Comment on above: Performed By: #### L 500.2500, L100.0100 #### [facility] [address] [place], [address] CO2 [Moles/Vol] 24.5 mmol/L Normal 21.0-32.0 [facility] Comment on above: Performed By: #### L 500.2500, L100.0100 #### [facility] [address] [place], [address] Creatinine [Mass/Vol] 0.91 mg/dL Normal 0.70-1.20 [facility] Comment on above: Performed By: #### L 500.2500, L100.0100 #### [facility] [address] [place], [address] ECRCL 56.35 ml/min Normal 50-250 [facility] Comment on above: Performed By: #### L 500.2500, L100.0100 #### [facility] [address] [place], [address] GAP 9 Normal 5-15 [facility] Comment on above: Performed By: #### L 500.2500, L100.0100 #### [facility] [address] [place], [address] GFR/1.73 sq M.predicted among non-blacks MDRD (S/P/Bld) [Vol rate/Area] 66 mL/min/{1.73_m2} Normal >60 [facility] Comment on above: Result Comment: mL/m in/1.73m2 CKD-EPI Creatinine Equation (2020) Performed By: #### L 500.2500, L100.0100 #### [facility] [address] [place], [address] Glucose [Mass/Vol] 99 mg/dL Normal 70-99 [facility] Comment on above: Performed By: #### L 500.2500, L100.0100 #### [facility] [address] [place], [address] Potassium [Moles/Vol] 3.8 mmol/L Normal 3.3-5.1 [facility] Comment on above: Performed By: #### L 500.2500, L100.0100 #### [facility] [address] [place], [address] Sodium [Moles/Vol] 143 mmol/L Normal 133-145 [facility] Comment on above: Performed By: #### L 500.2500, L100.0100 #### [facility] [address] [place], [address] Urea nitrogen [Mass/Vol] 7 mg/dL Normal 4-19 [facility] Comment on above: Performed By: #### L 500.2500, L100.0100 #### [facility] [address] [place], [address] Basophil percentageOrdered B y: Teodoro Daley on 04-04-2025 Basophils/100 WBC (Bld) 0.6 % 0-1 [facility] CBC W/Diff, Automatedon 10-2 -2024 Absolute Lymph 1.18 X10 3/uL Normal 0.83-4.51 [facility] Comment on above: Performed By: #### L 500.2500, L100.0100 #### [facility] [address] [place], [address] Absolute Neut 5.8 X10 3/uL Normal 2.0-7.7 [facility] Comment on above: Performed By: #### L 500.2500, L100.0100 #### [facility] [address] [place], [address] Basophils/100 WBC (Bld) 0.6 % Normal 0-1 [facility] Comment on above: Performed By: #### L 500.2500, L100.0100 #### [facility] [address] [place], [address] Eosinophils/100 WBC (Bld) 6.3 % High 0-5 [facility] Comment on above: Performed By: #### L 500.2500, L100.0100 #### [facility] [address] [place], [address] Erythrocyte distribution width (RBC) [Ratio] 13.1 % Normal 11.6-14.6 [facility] Comment on above: Performed By: #### L 500.2500, L100.0100 #### [facility] [address] [place], [address] Hematocrit (Bld) [Volume fraction] 39.9 % Normal 37-47 [facility] Comment on above: Performed By: #### L 500.2500, L100.0100 #### [facility] [address] [place], [address] Hemoglobin (Bld) [Mass/Vol] 13.6 g/dL Normal 12.0-15.0 [facility] Comment on above: Performed By: #### L 500.2500, L100.0100 #### [facility] [address] [place], [address] IG% 0.500 Normal 0.0-0.9 [facility] Comment on above: Result Comment: IG% - Immature Granulocytes (promyelocytes, myelocytes and metamyelocytes) > 1% indicates that a LEFT SHIFT is Present. Performed By: #### L 500.2500, L100.0100 #### [facility] [address] [place], [address] Lymphocytes/100 WBC (Bld) 14.8 % Low 19-41 [facility] Comment on above: Performed By: #### L 500.2500, L100.0100 #### [facility] [address] [place], [address] MCH (RBC) [Entitic mass] 31.6 pg Normal 27.0-32.0 [facility] Comment on above: Performed By: #### L 500.2500, L100.0100 #### [facility] [address] [place], [address] MCHC (RBC) [Mass/Vol] 34.1 g/dL Normal 32-36 [facility] Comment on above: Performed By: #### L 500.2500, L100.0100 #### [facility] [address] [place], [address] MCV (RBC) [Entitic vol] 92.8 fL Normal 81-99 [facility] Comment on above: Performed By: #### L 500.2500, L100.0100 #### [facility] [address] [place], [address] Monocytes/100 WBC (Bld) 5.3 % Normal 0-10 [facility] Comment on above: Performed By: #### L 500.2500, L100.0100 #### [facility] [address] [place], [address] Neutrophils/100 WBC (Bld) 72.5 % High 47-70 [facility] Comment on above: Performed By: #### L 500.2500, L100.0100 #### [facility] [address] [place], [address] Nucleated RBC (Bld) [#/Vol] 0 10*3/uL Normal 0-5 [facility] Comment on above: Performed By: #### L 500.2500, L100.0100 #### [facility] [address] [place], [address] Platelet mean volume (Bld) [Entitic vol] 11.9 fL Normal 6.2-12.0 [facility] Comment on above: Performed By: #### L 500.2500, L100.0100 #### [facility] [address] [place], [address] Platelets (Bld) [#/Vol] 230 10*3/uL Normal 150-450 [facility] Comment on above: Performed By: #### L 500.2500, L100.0100 #### [facility] [address] [place], [address] RBC (Bld) [#/Vol] 4.30 10*6/uL Normal 4.2-5.4 [facility] Comment on above: Performed By: #### L 500.2500, L100.0100 #### [facility] [address] [place], [address] RDW SD 44.3 fl High 35.1-43.9 [facility] Comment on above: Performed By: #### L 500.2500, L100.0100 #### [facility] [address] [place], [address] WBC (Bld) [#/Vol] 8.0 10*3/uL Normal 4.4-11.0 [facility] Comment on above: Performed By: #### L 500.2500, L100.0100 #### [facility] [address] [place], [address] Carbon dioxide, total [Moles /volume] in Central venous bloodOrdered By: Teodoro Daley on 04-04-2025 CO2 [Moles/Vol] 24.5 mmol/L 21.0-32.0 [facility] Chloride assayOrdered By: iJll Daley on 04-04-2025 Chloride [Moles/Vol] 109 mmol/L High 98-108 [facility] Emergency Department Summary on 04-04-2025 Emergency Department Summary [facility] Medical Records Department [address] [place] [address] Emergency Department Summary 04/04/25 MR#: [id number] Acct: [id number] Name: ILENE SHAW Rep #: [id number] : 1950 75 From: Teodoro Daley MD [...] symptoms: No Recent Illness/Hospitalization : No PFSH PFSH Medical History Vaginal candidiasis [...] housing: house Smoking Status: Never smoker [facility] Cardiovascular Cardiovascular: Denies chest pain, orthopnea, [...] since t (more content not included)... Normal [facility] Eosinophil percentageOrdered By: Teodoro Daley on 04-04-2025 Eosinophils/100 WBC (Bld) 6.3 % High 0-5 [facility] Erythrocyte distribution wid th ratioOrdered By: Teodoro Daley on 04-04-2025 Erythrocyte distribution width (RBC) [Ratio] 13.1 % 11.6-14.6 [facility] Erythrocyte distribution wid th standard deviationOrdered By: Teodoroshelbie Daley on 04-04-2025 Erythrocyte distribution width (RBC) [Ratio] 44.3 fl High 35.1-43.9 [facility] Glomerular filtration rate ( GFR) estimation/1.73 sq m using serum, plasma, or whole bOrdered By: Teodoro Daley on 04-04-2025 GFR/1.73 sq M.predicted among non-blacks MDRD (S/P/Bld) [Vol rate/Area] 66 mL/min/{1.73_m2} >60 [facility] Comment on above: mL/min/1.73m2 CKD-EP I Creatinine Equation (2020) Hematocrit Auto (Bld) [Volum e fraction]Ordered By: Teodoro Daley on 04-04-2025 Hematocrit (Bld) [Volume fraction] 39.9 % 37-47 [facility] Hemoglobin measurementOrdere d By: Teodoro Daley on 04-04-2025 Hemoglobin (Bld) [Mass/Vol] 13.6 g/dL 12.0-15.0 [facility] Immature granulocytes/100 WB C Auto (Bld)Ordered By: Teodoro Daley on 04-04-2025 Immature granulocytes/100 WBC (Bld) 0.500 % 0.0-0.9 [facility] Comment on above: IG% - Immature Granu locytes (promyelocytes, myelocytes and metamyelocytes) > 1% indicates that a LEFT SHIFT is Present. MCV (mean corpuscular volume ) determinationOrdered By: Teodoro Daley on 04-04-2025 MCV (RBC) [Entitic vol] 92.8 fL 81-99 [facility] Mean corpuscular hemoglobin (MCH) determinationOrdered By: Teodoroshelbie Daley on 04-04-2025 MCH (RBC) [Entitic mass] 31.6 pg 27.0-32.0 [facility] Mean corpuscular hemoglobin concentration (MCHC) determinationOrdered By: Teodoro Daley on 04-04-2025 MCHC (RBC) [Mass/Vol] 34.1 g/dL 32-36 [facility] Mean platelet volume determi nationOrdered By: Teodoro Daley on 04-04-2025 Platelet mean volume (Bld) [Entitic vol] 11.9 fL 6.2-12.0 [facility] Monocyte percentageOrdered B y: Teodoro Daley on 04-04-2025 Monocytes/100 WBC (Bld) 5.3 % 0-10 [facility] Neutrophil percentageOrdered By: Teodoro Daley on 04-04-2025 Neutrophils/100 WBC (Bld) 72.5 % High 47-70 [facility] Nucleated red blood cell per centageOrdered By: Teodoro Daley on 04-04-2025 Nucleated RBC/100 WBC (Bld) [Ratio] 0 % 0-5 [facility] Platelet countOrdered By: Jill Daley on 04-04-2025 Platelets (Bld) [#/Vol] 230 10*3/uL 150-450 [facility] Potassium measurement (mass/ volume)Ordered By: Teodoro Daley on 04-04-2025 Potassium (Unsp spec) [Mass/Vol] 3.8 mmol/L 3.3-5.1 [facility] RBC Auto (Bld) [#/Vol]Ordere d By: Teodoro Daley on 04-04-2025 RBC (Bld) [#/Vol] 4.30 10*6/uL 4.2-5.4 [facility] Serum creatinine measurement (mass/volume)Ordered By: Teodoro Daley on 04-04-2025 Creatinine [Mass/Vol] 0.91 mg/dL 0.70-1.20 [facility] Serum glucose measurement (m ass/volume)Ordered By: Teodoro Daley on 04-04-2025 Glucose [Mass/Vol] 99 mg/dL 70-99 [facility] Serum or plasma calcium iwona urement (mass/volume)Ordered By: Teodoroshelbie Daley on 04-04-2025 Calcium [Mass/Vol] 8.9 mg/dL 7.6-11.0 [facility] Serum or plasma urea nitroge n measurement (mass/volume)Ordered By: Teodoro Daley on 04-04-2025 Urea nitrogen [Mass/Vol] 7 mg/dL 4-19 [facility] Sodium levelOrdered By: Teodoro Daley on 04-04-2025 Sodium [Moles/Vol] 143 mmol/L 133-145 [facility] Venous Duplex US, Unilateral on 04-04-2025 Venous Duplex US, Unilateral [facility] [address] [place] [address] Venous Duplex US, Unilateral 04/04/25 1109 MR#: [id number] Acct: [id number] Name: ILENE SHAW Rep #: [id number] : 1950 75 From: Bran Alston MD [...] MD Date Dictated: 04/04/251108 Date Transcribed: 04/04/251554 Loom Fixer: Signed Normal [facility] Venous duplex ultrasound rep ortOrdered By: Bran Alston on 04-04-2025 US Vein [facility] [address] [place] [address] Venous Duplex US, Unilateral 04/04/25 110 MR#: [id number] Acct: [id number] Name: ILENE SHAW Rep #:[id number] : 1950 75 From: Bran Rhodes [...] Santos Performed By: Jenn Naranjo RVT 04/04/25 8910 Date _ Bran Alston MD CC: Dr. Jennifer Santos MD; Dr. Teodoro Daley MD ~ Date Dictated: 04/04/25 1109 Date Transcribed: 04/04/25 734 Loom Fixer: Signed [facility] Work Phone: White blood cell (WBC) count Ordered By: Teodoro Daley on 04-04-2025 WBC (Bld) [#/Vol] 8.0 10*3/uL 4.4-11.0 [facility] Urgent Care Visit Reporton 0 7-22-2025 Urgent Care Visit Report [facility] [address], [address] [place] [address] OFFICE VISIT Date of Service: 01/03/25 MR#: [id number] Acct: [id number] Name: ILENE SHAW Rep #: [id number] : 1950 Provider: RA Currie Age/Sex: 74/F Location: [facility] Status: Signed Intake Vital Signs 08/28/23 16:43 01/03/25 15:04 Height 5 ft 2 in 5 ft 2 in Weight: 195 lb BMI 35.6 BP 130/84 H Blood Pressure Location Lt brachial Position Sitting Respiration 16 Pulse 94 Pulse Source Monitor Temp 98.2 F Temp Source Oral Pulse Oximetry (%) 97 Oxygen Delivery Method room air Intake Visit Reasons: Cough Chief Complaint: Cough Vegetables Cook Required: No Accompanied by: Self Is patient [...] Has tried otc medications for cold symptoms. [facility] Medical History (Updated 01/03/25 @ 15:18 by [...] No close contacts with similar complaints. No sdte-qty-qtoebna products taken to assist. Additionally, patient notes having a history of chronic vaginal pruritus and concern for vaginal candidiasis; she notes dcyj-lug-destdcz Monistat cream helping some but may not resolve her symptoms. No other associated symptoms and no alleviating/aggravating factors. ROS Const Constitutional: No other (As above) Exam Const General: cooperative, healthy appearing and no acute distress Orientation: alert and awake [facility] Head: normal to inspection Ears: hearing grossly [...] (more content not included)... Normal [facility] 12-20-2024 CNCO Letter Text Normal [facility] BARBARA SCREENING W TOMOon 09-22 BARBARA SCREENING W EL * * *Final Report* * * DATE OF EXAM: Sep 22 2024 9:56AM WRW 0582 - BARBARA SCREENING W EL / PROCEDURE REASON: Encounter for screening mammogram for breast cancer * * * * Physician Interpretation * * * * RESULT: [place] [id number] #[id number] - BARBARA SCREENING W EL HISTORY: 74 [...] Mita Finney M.D. Electronically signed on: 09/23/2024 Loom Fixer: SÁNCHEZ Riosriemily Date/Time: Sep 22 2024 9:45A Dictated by: MITA FINNEY MD This examination was interpreted and the report reviewed and electronically signed by: MITA FINNEY MD on Sep 23 2024 7:47PM EST [id number] Normal [facility] 09-14-2024 CNPN Telephone (INTMWS) ILENE SHAW ([id number]) 1950 F Date Time Provider Department 09/14/24 [...] breast cancer [Z12.31] Order(s):BARBARA SCREENING W EL [[id number]] Order #: [id number] FUTURE Prescriptions as of 09/14/2024 - aspirin [...] Encounter Status:Closed by KELLE PETER on 09/14/24 [facility] Kelsie 05-11-2024 [facility] Telephone (UCWSTR) ILENE SHAW ([id number]) 1950 F Date Time Provider Department 05/11/24 TORREY DAWSON [facility] During your visit today, we [...] Status:Closed by CLAUDETTE DIAL on 05/11/24 Normal [facility] BACTERIAL VAGINOSIS NAATon 1 07-10-2023 Lactobacillus crispatus+gasseri+shahana enii + Gardnerella vaginalis + Atopobium vaginae rRNA RADHA+probe Ql (Vag fld) Not detected Normal Not detected [facility] Comment on above: Order Comment: Speci men Type: SWABOrdering Facility: [facility] Address: [address] [place] [address] Performed By: #### Arlene CHADWICK, [id number] ####[facility] LABCLIA [id number] [place] [address] [address] [place] Bacteria Ur Culton [...] , Intermediate >32 , Resistant >64 Abnormal [facility] Comment on above: Performed By: #### 6 30-4 ####[facility] LABCLIA [id number] [place] [address] [place] C. trachomatis+N. gonorrhoea e DNA RADHA+probe Ql (Unsp spec)on 05-10-2024 C. trachomatis rRNA RADHA+probe Ql (Unsp spec) Not detected Normal Not detected [facility] Comment on above: Order Comment: Speci men Type: SWABOrdering Facility: [facility] Address: [address] [place] [address] Performed By: #### B VAMP, [id number] ####[facility] LABCLIA [id number] [place] [address] [place] N. gonorrhoeae rRNA RADHA+probe Ql (Unsp spec) Not detected Normal Not detected [facility] Comment on above: Order Comment: Speci men Type: SWABOrdering Facility: [facility] Address: [address] [place] [address] Performed By: #### B VAMP, 84406-6 ####[facility] LABCLIA [id number] [place] [address] [place] ALBA/TRICHOMONAS NAATon 1 07-10-2023 C. glabrata RNA RADHA+probe Ql (Vag fld) Not detected Normal Not detected [facility] Comment on above: Order Comment: Speci men Type: SWABOrdering Facility: [facility] Address: [address] [place] [address] Performed By: #### C VTV ####[facility] LABCLIA [id number] [place] [address] [place] Alba sp DNA RADHA+probe Ql (Vag fld) Detected Abnormal Not detected [facility] Comment on above: Order Comment: Speci men Type: SWABOrdering Facility: [facility] Address: [address] [place] [address] Result Comment: The Alba species group target includes C. albicans, C. tropicalis, C. parapsilosis, and C. dubliniensis. Performed By: #### C VTV ####[facility] LABIA [id number] [address] OF [facility] T. vaginalis DNA RADHA+probe Ql (Unsp spec) Not detected Normal Not detected [facility] Comment on above: Order Comment: Speci men Type: SWABOrdering Facility: [facility] Address: [address] [place] [address] Performed By: #### C VTV ####[facility] LABCLIA [id number] [address] OF [facility] CNOVon 05-10-2024 CNOV Office Visit (UCTR ) GOLDENILENE Rutherford ([id number]) 1950 F Date Time Provider Department 05/10/24 12:30 PM TORREY DAWSON [facility] During your visit today, we recorded the following information about you: Temperature Pulse Respiration Blood pressure 98.1 degrees 75/minute 20/minute 136/78 Weight 87 kg Torrey Dawson PA-C 05/10/2024 2:21 PM Signed This note was created using ShareThis. Subjective Ilene Shaw is a 74 year [...] RIGHT PERQ BREAST LOC DEVICE PLACEMT 1ST LES US IMAG 08/16/14 U/S right axillary marking [...] Exam Vitals reviewed. Exam conducted with a pony rougher present (Claudette ARTHUR). Constitutional: Appearance: Normal appearance. [...] Assessed Reaso (more content not included)... Normal [facility] UA DIP, URINE (POC)on 2023 BILIRUBIN UA (POCT) Negative Negative [place] CLARITY UA (POCT) Cloudy [facility] COLOR UA (POCT) Dark yellow [facility] GLUCOSE UA (POCT) Negative Negative mg/dL [facility] Hemoglobin Ql (U) Large Abnormal Negative [facility] Interpretation and review of laboratory results Abnormal [facility] KETONE UA (POCT) Negative Negative mg/dL [facility] LEUKOCYTES UA (POCT) Trace Abnormal Negative [facility] NITRITE UA (POCT) Positive Abnormal Negative [facility] PH UA (POCT) 5.5 4.5 - 8.0 [facility] Protein Ql (U) >=300 Abnormal Negative mg/dL [facility] SPECIFIC GRAVITY UA (POCT) 1.025 1.005 - 1.030 [facility] UROBILINOGEN UA (POCT) 0.2 Normal E.U./d L [facility] Location:[address], [place], [place], [address] [place] [address] POINT OF CARE [facility] XR Chest PA and Lateralon IMPRESSION: No acute radiographic abnormality. Loom Fixer: AAKASH Transcribe Date/Time: Nov 18 2023 11:20A Dictated by : ELLI BAUM MD This examination was interpreted and the report reviewed and electronically signed by: ELLI BAUM MD on Nov 18 2023 11:21AM [facility] DIVISION OF RADIOLOGY * * *Final [...] wall surgical clips. DIVISION OF RADIOLOGY Provider, [facility] Caroline alves Doon - 11/18/2023 * * *Final Report* * [...] clips. IMPRESSION IMPRESSION: No acute radiographic abnormality. Loom Fixer: PSCB Transcribe Date/Time: Nov 18 2023 11:20A Dictated by : ELLI BAUM MD This examination was interpreted and the report reviewed and electronically signed by: ELLI BAUM MD on Nov 18 2023 11:21AM EST [facility] Radiology Study observation (narrative) [facility] XR Chest PA and LateralOrder ed By: [facility]cf Provider on 11-18-2023 [facility] BACTERIAL VAGINOSIS NAATon 0 10-22-2023 Interpretation and review of laboratory results Normal [facility] Lactobacillus crispatus+gasseri+shahana enii + Gardnerella vaginalis + Atopobium vaginae rRNA RADHA+probe Ql (Vag fld) Negative Negative for bacterial vaginosis [facility] ALBA/TRICHOMONAS NAATon 0 10-22-2023 C. glabrata RNA RADHA+probe Ql (Vag fld) Negative Negative for Alba glabrata [facility] Alba sp DNA RADHA+probe Ql (Vag fld) Positive Abnormal Negative for Alba species [facility] Interpretation and review of laboratory results Abnormal [facility] T. vaginalis DNA RADHA+probe Ql (Unsp spec) Negative Negative for Trichomonas vaginalis by amplification [facility] UA DIP, URINE (POC)on 2023 BILIRUBIN UA (POCT) Negative Negative [place] CLARITY UA (POCT) Clear [facility] COLOR UA (POCT) Yellow [facility] GLUCOSE UA (POCT) Negative Negative mg/dL [facility] Hemoglobin Ql (U) Negative Negative [facility] KETONE UA (POCT) Negative Negative mg/dL [facility] LEUKOCYTES UA (POCT) Negative Negative [facility] NITRITE UA (POCT) Negative Negative [facility] PH UA (POCT) 5.5 4.5 - 8.0 [facility] Protein Ql (U) Negative Negative mg/dL [facility] SPECIFIC GRAVITY UA (POCT) 1.025 1.005 - 1.030 [facility] UROBILINOGEN UA (POCT) 0.2 Normal E.U./d L [facility] Location:[address], [place], [place], [id number] [place] [address] POINT OF CARE [facility] DBT Breast - left diagnostic for implanton 09-30-2023 [facility] US Breast - left limitedon 0 09-30-2023 [facility] CBC panel Auto (Bld)on 05-22 Erythrocyte distribution width (RBC) [Ratio] 12.6 % 11.5 - 15.0 % [facility] Hematocrit (Bld) [Volume fraction] 42.8 % 36.0 - 46.0 % [facility] Hemoglobin (Bld) [Mass/Vol] 14.0 g/dL 11.5 - 15.5 g/dL [facility] MCH (RBC) [Entitic mass] 31.3 pg 26.0 - 34.0 pg [facility] MCHC (RBC) [Mass/Vol] 32.7 g/dL 30.5 - 36.0 g/dL [facility] MCV (RBC) [Entitic vol] 95.7 fL 80.0 - 100.0 fL [facility] Nucleated RBC (Bld) [#/Vol] <0.01 k/uL [facility] Platelet mean volume (Bld) [Entitic vol] 11.6 fL 9.0 - 12.7 fL [facility] Platelets (Bld) [#/Vol] 256 10*3/uL 150 - 400 k/uL [facility] RBC (Bld) [#/Vol] 4.47 10*6/uL 3.90 - 5.2 0 m/uL [facility] WBC (Bld) [#/Vol] 8.44 10*3/uL 3.70 - 11. 00 k/uL [facility] No Panel Informationon 09-03 [facility] Absolute lymphocyte counton 03-02-2022 Lymphocytes Auto (Unsp spec) [#/Vol] 1.96 10*3/uL 0.83-4.51 [facility] Work Phone: Basophil percentageon 2021 Basophils/100 WBC (Bld) 0.6 % 0-1 [facility] Work Phone: Bilirubin [Mass/Vol] 0.40 mg/dL 0.20-1.00 [facility] Work Phone: Comment on above: For patients on eltr ombopag therapy, use of Dimension Huggins TBIL is not recommended. Chloride [Moles/Vol] 108 mmol/L 98-107 [facility] Work Phone: Eosinophils/100 WBC (Bld) 5.5 % 0-5 [facility] Work Phone: Glucose [Mass/Vol] 93 mg/dL 74-106 [facility] Work Phone: Neutrophils (Bld) [#/Vol] 5.0 10*3/uL 2.0-7.7 [facility] Work Phone: Neutrophils/100 WBC (Bld) 62.7 % 47-70 [facility] Work Phone: Potassium [Moles/Vol] 3.6 mmol/L 3.5-5.1 [facility] Work Phone: Protein [Mass/Vol] 7.6 g/dL 6.4-8.2 [facility] Work Phone: Sodium [Moles/Vol] 143 mmol/L 136-145 [facility] Work Phone: WBC (Bld) [#/Vol] 8.0 10*3/uL 4.4-11.0 [facility] Work Phone: Blood erythrocytes count (nu mber/volume)on 03-02-2022 RBC (Bld) [#/Vol] 4.56 10*6/uL 4.2-5.4 [facility] Work Phone: Blood hemoglobin measurement (mass/volume)on 03-02-2022 Hemoglobin (Bld) [Mass/Vol] 14.3 g/dL 12.0-15.0 [facility] Work Phone: Blood lymphocytes/100 leukoc yteson 03-02-2022 Lymphocytes/100 WBC (Bld) 24.5 % 19-41 [facility] Work Phone: Blood monocytes/100 leukocyt eson 03-02-2022 Monocytes/100 WBC (Bld) 6.6 % 0-10 [facility] Work Phone: Blood platelet mean volumeon 03-02-2022 Platelet mean volume (Bld) [Entitic vol] 11.1 fL 6.2-12.0 [facility] Work Phone: Determination of erythrocyte mean corpuscular volume (MCV)on 03-02-2022 MCV (RBC) [Entitic vol] 95.6 fL 81-99 [facility] Work Phone: Hematocrit Auto (Bld) [Volum e fraction]on 03-02-2022 Hematocrit (Bld) [Volume fraction] 43.6 % 37-47 [facility] Work Phone: INR in Blood by Coagulation assayon 03-02-2022 INR Coag (Bld) [Relative time] 1.1 {INR} [facility] Work Phone: Laboratory - Chemistry and C hemistry - challengeon 03-02-2022 ALP [Catalytic activity/Vol] 86 U/L 45-117 [facility] Work Phone: ALT [Catalytic activity/Vol] 18 U/L 13-56 [facility] Work Phone: CO2 [Moles/Vol] 27.0 mmol/L 21.0-32.0 [facility] Work Phone: Globulin (S) [Mass/Vol] 3.9 g/dL 2.2-4.2 [facility] Work Phone: Urea nitrogen/Creatinine [Mass ratio] 9.8 mg/mg 10-20 [facility] Work Phone: Laboratory - Coagulationon 0 03-02-2022 aPTT Coag (Bld) [Time] 31.7 s 24.1-36.2 [facility] Work Phone: PT Coag (PPP) [Time] 13.5 s 11.7-14.9 [facility] Work Phone: Laboratory - Hematology and Cell countson 03-02-2022 Erythrocyte distribution width (RBC) [Entitic vol] 47.2 fL 35.1-43.9 [facility] Work Phone: Erythrocyte distribution width (RBC) [Ratio] 13.2 % 11.6-14.6 [facility] Work Phone: Immature granulocytes/100 WBC (Bld) 0.100 % 0.0-0.9 [facility] Work Phone: Comment on above: IG% - Immature Granu locytes (promyelocytes, myelocytes and metamyelocytes) > 1% indicates that a LEFT SHIFT is Present. MCH (RBC) [Entitic mass] 31.4 pg 27.0-32.0 [facility] Work Phone: Nucleated RBC/100 WBC (Bld) [Ratio] 0 % 0-5 [facility] Work Phone: MCHC Auto (RBC) [Mass/Vol]on 03-02-2022 MCHC (RBC) [Mass/Vol] 32.8 g/dL 32-36 [facility] Work Phone: No Panel Informationon 03-02 Estimated Creatinine Clearance Calc 43.72 ml/min [facility] Work Phone: Estimated GFR (MDRD) Amer 77 mL/min >60 [facility] Work Phone: Comment on above: GFR Calc Estimated GFR (MDRD) Non-Af Amer 64 mL/min >60 [facility] Work Phone: Comment on above: Non- GFR Calc Platelets bldon 03-02-2022 Platelets (Bld) [#/Vol] 267 10*3/uL 150-450 [facility] Work Phone: Serum or plasma albumin iwona urement (mass/volume)on 03-02-2022 Albumin [Mass/Vol] 3.7 g/dL 3.2-5.0 [facility] Work Phone: Serum or plasma albumin/glob ulin mass ratioon 03-02-2022 Albumin/Globulin [Mass ratio] 0.9 {ratio} 0.9-2.4 [facility] Work Phone: Serum or plasma calcium iwona urement (mass/volume)on 03-02-2022 Calcium [Mass/Vol] 9.2 mg/dL 8.5-10.1 [facility] Work Phone: Serum or plasma creatinine m easurement (mass/volume)on 03-02-2022 Creatinine [Mass/Vol] 0.92 mg/dL 0.55-1.02 [facility] Work Phone: Comment on above: The validity of the calculated GFR & GFRAA in patients over 70 years has not been determined. Clinical correlation is essential. Serum or plasma urea nitroge n measurement (mass/volume)on 03-02-2022 Urea nitrogen [Mass/Vol] 9 mg/dL 7-18 [facility] Work Phone: Thin prep Papanicolaou smear with manual screeningon 03-02-2022 Thin prep Papanicolaou smear with manual screening 16 U/L 15-37 [facility] Work Phone: Thin prep Papanicolaou smear with manual screening 8 5-15 [facility] Work Phone: US LEG VEIN DVT UNL VAS LABo n 02-07-2022 [facility] UA DIP, URINE (POC)on 2021 BILIRUBIN UA (POCT) Small Abnormal Negative [place] CLARITY UA (POCT) Clear [facility] COLOR UA (POCT) Dark yellow [facility] GLUCOSE UA (POCT) Negative Negative mg/dL [facility] HEMOGLOBIN/BLOOD UA (POCT) Trace-intact Abnormal Negative [facility] KETONE UA (POCT) Negative Negative mg/dL [facility] LEUKOCYTES UA (POCT) Trace Abnormal Negative [facility] NITRITE UA (POCT) Negative Negative [facility] PH UA (POCT) 5.5 4.5 - 8.0 [facility] Protein Ql (U) Trace Abnormal Negative mg/dL [facility] SPECIFIC GRAVITY UA (POCT) >=1.030 1.005 - 1.030 [facility] UROBILINOGEN UA (POCT) 0.2 E.U./dL Normal E.U./ dL [facility] BARBARA SCREENINGon 09-02-2021 [facility] CNOVon 11-02-2018 CNOV Office Visit (AKURFL ) GOLDENILENE Rutherford ([id number]) 1950 F Date Time Provider Department 11/02/18 10:30 AM DEEP SHANE During your visit today, we recorded the following information about you: Deep Shane DO, MBA 11/02/2018 11:31 AM Signed ?? Formerly [facility] [place] LOCATION: [address] [place] [address] CYSTOSCOPY PROCEDURE NOTE: Ilene Sangeeta Shaw is a 68 year old female who presents with bladder nodule for a cystoscopy. Pt ID verified with patient: Yes Procedure verified with patient: Yes Procedure confirmed with physician and air support operations operator: Yes Sign In: History and Physical [...] Shane DO, MBA Referring Provider: DEEP SHANE [[id number]] Allergies As of Date: 11/02/2018 Noted Allergy [...] Encounter Status:Closed by DEEP SHANE on 11/02/18 [facility] PROCEDUREon 11-02-2018 Protein mass conc HNO ID: [id number] Author: Deep Shane Service: ? Author Type: Physician Type: Procedures Filed: 11/02/2018 11:31 AM Note Text: ?? [facility] LOCATION: [address] [place] [address] CYSTOSCOPY PROCEDURE NOTE: Ilene Shaw is a 68 year old female who presents with bladder nodule for a cystoscopy. Pt ID verified with patient: Yes Procedure verified with patient: Yes Procedure confirmed with physician and air support operations operator: Yes Sign In: History and Physical [...] mid-urethral sling Deep Shane DO, MBA Normal [facility] Vital Signs Date Time Vital Sign Value Performing Clinician Faci lity 04-07-2025 15:30-0400 Body temperature 98.2 [degF] Dr. Jennifer Santos MD Work Phone: [facility] 04-07-2025 15:30-0400 Diastolic blood pressure 64 mm[Hg] Dr. Jennifer Santos MD Work Phone: [facility] 04-07-2025 15:30-0400 Heart rate 71 /min Dr. Jennifer Santos MD Work Phone: [facility] 04-07-2025 15:30-0400 Respiratory rate 16 /min Dr. Jennifer Santos MD Work Phone: [phone] [place] [address] 04-07-2025 15:30-0400 SaO2% (BldA) [Mass fraction] 97 % Dr. Jennifer Santos MD Work Phone: [phone] [place] [address] 04-07-2025 15:30-0400 Systolic blood pressure 117 mm[Hg] Dr. Jennifer Santos MD Work Phone: [phone] [place] [address] 04-07-2025 12:09-0400 Body height 157.[address] Jennifer Santos MD Work Phone: 6(373)914-051757 [place] [address] 04-07-2025 12:09-0400 Body weight 87.[address] Jennifer Santos MD Work Phone: 3(060)527-463357 [place] [address] 04-07-2025 08:10-0400 Body mass index (BMI) [Ratio] 35.2 kg/m2 Dr. Jennifer Santos MD Work Phone: 5(102)014-363057 [place] [address] 04-04-2025 12:48-0400 Body temperature 97.8 [degF] Dr. Jennifer Santos MD Work Phone: 0(046)384-133957 [place] [address] 04-04-2025 12:48-0400 Diastolic blood pressure 78 mm[Hg] Dr. Jennifer Santos MD Work Phone: 3(274)837-422857 [place] [address] 04-04-2025 12:48-0400 Heart rate 64 /min Dr. Jennifer Santos MD Work Phone: 9(205)131-173657 [place] [address] 04-04-2025 12:48-0400 Respiratory rate 18 /min Dr. Jennifer Santos MD Work Phone: 3(914)997-659857 [place] [address] 04-04-2025 12:48-0400 SaO2% (BldA) [Mass fraction] 99 % Dr. Jennifer Santos MD Work Phone: 1(650)131-200557 [place] [address] 04-04-2025 12:48-0400 Systolic blood pressure 134 mm[Hg] Dr. Jennifer Santos MD Work Phone: 1(626)113-404357 [place] [address] 04-04-2025 11:06-0400 Body mass index (BMI) [Ratio] 37 kg/m2 Dr. Jennifer Santos MD Work Phone: 9(326)084-702657 [place] [address] 04-04-2025 11:06-0400 Body weight 91.[address] Jennifer Santos MD Work Phone: 2(518)850-388657 [place] [address] 01-03-2025 15:04-0400 Body height 157.[address] Jennifer Santos MD Work Phone: 4(576)218-220457 [place] [address] 01-03-2025 15:04-0400 Body mass index (BMI) [Ratio] 35.6 kg/m2 Dr. Jennifer Santos MD Work Phone: 4(205)412-592957 [place] [address] 01-03-2025 15:04-0400 Body temperature 98.2 [degF] Dr. Jennifer Santos MD Work Phone: 0(834)167-191357 [place] [address] 01-03-2025 15:04-0400 Body weight 88.[address] Jennifer Santos MD Work Phone: 0(335)584-637557 [place] [address] 01-03-2025 15:04-0400 Diastolic blood pressure 84 mm[Hg] Dr. Jennifer Santos MD Work Phone: 2(070)642-931457 [place] [address] 01-03-2025 15:04-0400 Heart rate 94 /min Dr. Jennifer Santos MD Work Phone: 2(682)294-862457 [place] [address] 01-03-2025 15:04-0400 Respiratory rate 16 /min Dr. Jennifer Santos MD Work Phone: 5(495)426-987757 [place] [address] 01-03-2025 15:04-0400 SaO2% (BldA) [Mass fraction] 97 % Dr. Jennifer Santos MD Work Phone: 4(621)173-639657 [place] [address] 01-03-2025 15:04-0400 Systolic blood pressure 130 mm[Hg] Dr. Jennifer Santos MD Work Phone: 7(076)657-298057 [place] [address] 05-10-2024 12:44-0500 Body mass index (BMI) [Ratio] 35.08 kg/m2 Torrey Dawson PA-C Work Phone: [facility] 05-10-2024 12:44-0500 Body temperature 98.1 [degF] Torrey Athy PA-C Work Phone: [facility] 05-10-2024 12:44-0500 Body weight 87 kg Torrey Athy PA-C Work Phone: [facility] 05-10-2024 12:44-0500 Diastolic blood pressure 78 mm[Hg] Torrey Athy PA-C Work Phone: [facility] 05-10-2024 12:44-0500 Heart rate 75 /min Torrey Athy PA-C Work Phone: [facility] 05-10-2024 12:44-0500 Respiratory rate 20 /min Torrey Athy PA-C Work Phone: [facility] 05-10-2024 12:44-0500 SaO2% (BldA) [Mass fraction] 100 % Torrey Athy PA-C Work Phone: [facility] 05-10-2024 12:44-0500 Systolic blood pressure 136 mm[Hg] Torrey Athy PA-C Work Phone: [facility] 11-17-2023 18:23-0400 Body mass index (BMI) [Ratio] 35.12 kg/m2 Elaine Praisler-Wood AERIAL ERECTOR.REPAIR TABLE OPERATOR Work Phone: [facility] 11-17-2023 18:23-0400 Body temperature 99.1 [degF] Elaine Praisler-Wood AERIAL ERECTOR.REPAIR TABLE OPERATOR Work Phone: [facility] 11-17-2023 18:23-0400 Body weight 87.1 kg Elaine Praisler-Wood AERIAL ERECTOR.REPAIR TABLE OPERATOR Work Phone: [facility] 11-17-2023 18:23-0400 Diastolic blood pressure 80 mm[Hg] Elaine Praisler-Wood AERIAL ERECTOR.REPAIR TABLE OPERATOR Work Phone: [facility] 11-17-2023 18:23-0400 Heart rate 98 /min Elaine Praisler-Wood AERIAL ERECTOR.REPAIR TABLE OPERATOR Work Phone: [facility] 11-17-2023 18:23-0400 Respiratory rate 18 /min Elaine Praisler-Wood AERIAL ERECTOR.REPAIR TABLE OPERATOR Work Phone: [facility] 11-17-2023 18:23-0400 SaO2% (BldA) [Mass fraction] 94 % Elaine Praisler-Wood AERIAL ERECTOR.REPAIR TABLE OPERATOR Work Phone: [facility] 11-17-2023 18:23-0400 Systolic blood pressure 128 mm[Hg] Elaine Praisler-Wood AERIAL ERECTOR.REPAIR TABLE OPERATOR Work Phone: [facility] 10-21-2023 12:29-0400 Body mass index (BMI) [Ratio] 35.52 kg/m2 Torrey Athy PA-C Work Phone: [facility] 10-21-2023 12:29-0400 Body temperature 98.91 [degF] Torrey Athy PA-C Work Phone: [facility] 10-21-2023 12:29-0400 Body weight 88.1 kg Torrey Athy PA-C Work Phone: [facility] 10-21-2023 12:29-0400 Diastolic blood pressure 82 mm[Hg] Torrey Athy PA-C Work Phone: [facility] 10-21-2023 12:29-0400 Heart rate 80 /min Torrey Athy PA-C Work Phone: [facility] 10-21-2023 12:29-0400 Respiratory rate 18 /min Torrey Athy PA-C Work Phone: [facility] 10-21-2023 12:29-0400 SaO2% (BldA) [Mass fraction] 97 % Torrey Athy PA-C Work Phone: [facility] 10-21-2023 12:29-0400 Systolic blood pressure 132 mm[Hg] Torrey Athy PA-C Work Phone: [facility] 08-28-2023 18:30-0400 Body temperature 96.98 [degF] LENA JIMENEZ MD [facility] 08-28-2023 18:30-0400 Body weight 89.9 kg LENA JIMENEZ MD [facility] 08-28-2023 18:30-0400 Diastolic Blood Pressure Non-Invasive 88 mm[Hg] LENA JIMENEZ MD [facility] 08-28-2023 18:30-0400 Heart rate 73 /min LENA JIMENEZ MD [facility] 08-28-2023 18:30-0400 Respiratory rate 18 /min LENA JIMENEZ MD [facility] 08-28-2023 18:30-0400 Systolic Blood Pressure Non-Invasive 159 mm[Hg] LENA JIMENEZ MD [facility] 08-28-2023 16:43-0400 Body height 157.48 cm [facility] 08-28-2023 16:43-0400 Body temperature 95.6 [degF] [facility] 08-28-2023 16:43-0400 Diastolic blood pressure 83 mm[Hg] [facility] 08-28-2023 16:43-0400 Heart rate 88 /min [facility] 08-28-2023 16:43-0400 Respiratory rate 14 /min [facility] 08-28-2023 16:43-0400 SaO2% (BldA) [Mass fraction] 98 % [facility] 08-28-2023 16:43-0400 Systolic blood pressure 151 mm[Hg] [facility] 05-27-2023 01:48-0500 Heart rate 89 /min [facility] 05-27-2023 01:48-0500 Respiratory rate 18 /min [facility] 05-27-2023 01:48-0500 SaO2% (BldA) [Mass fraction] 97 % [facility] 05-27-2023 01:28-0500 Diastolic blood pressure 79 mm[Hg] [facility] 05-27-2023 01:28-0500 Systolic blood pressure 153 mm[Hg] [facility] 05-26-2023 23:40-0500 Body height 157.48 cm [facility] 05-26-2023 23:40-0500 Body mass index (BMI) [Ratio] 35.1 kg/m2 [facility] 05-26-2023 23:40-0500 Body temperature 97.3 [degF] [facility] 05-26-2023 23:40-0500 Body weight 87.08 kg [facility] 05-21-2023 19:08-0500 Body temperature 96.91 [degF] Rolf Burger MD Work Phone: [facility] 05-21-2023 19:08-0500 Body weight 87.5 kg Rolf Burger MD Work Phone: [facility] 05-21-2023 19:08-0500 Diastolic blood pressure 86 mm[Hg] Rolf Burger MD Work Phone: [facility] 05-21-2023 19:08-0500 Heart rate 92 /min Rolf Burger MD Work Phone: [facility] 05-21-2023 19:08-0500 Respiratory rate 16 /min Rolf Burger MD Work Phone: [facility] 05-21-2023 19:08-0500 SaO2% (BldA) [Mass fraction] 99 % Rolf Burger MD Work Phone: [facility] 05-21-2023 19:08-0500 Systolic blood pressure 136 mm[Hg] Rolf Burger MD Work Phone: [facility] 05-21-2023 13:40-0500 Body temperature 98.71 [degF] Yaakov Richter MD Work Phone: [facility] 05-21-2023 13:40-0500 Body weight 87.36 kg Yaakov Richter MD Work Phone: [facility] 05-21-2023 13:40-0500 Diastolic blood pressure 82 mm[Hg] Yaakov Richter MD Work Phone: [facility] 05-21-2023 13:40-0500 Heart rate 80 /min Yaakov Richter MD Work Phone: [facility] 05-21-2023 13:40-0500 Respiratory rate 18 /min Yaakov Richter MD Work Phone: [facility] 05-21-2023 13:40-0500 SaO2% (BldA) [Mass fraction] 99 % Yaakov Richter MD Work Phone: [facility] 05-21-2023 13:40-0500 Systolic blood pressure 138 mm[Hg] Yaakov Richter MD Work Phone: [facility] 05-07-2023 22:45-0500 Body height 157.5 cm MISHEL MCCRARYT [facility] 05-07-2023 22:45-0500 Body temperature 98.42 [degF] MISHEL MCCRARYT DO [facility] 05-07-2023 22:45-0500 Body weight 84 kg MISHEL MCCRARYT DO [facility] 05-07-2023 22:45-0500 Diastolic Blood Pressure Non-Invasive 88 mm[Hg] MISHEL MCCRARYT DO [facility] 05-07-2023 22:45-0500 Heart rate 83 /min MISHEL MCCRARYT DO [facility] 05-07-2023 22:45-0500 Respiratory rate 18 /min MISHEL MCCRARYT DO [facility] 05-07-2023 22:45-0500 Systolic Blood Pressure Non-Invasive 175 mm[Hg] MISHEL PEREZ DO [facility] 05-16-2022 11:39-0500 Body height 157.5 cm Jennifer Santos MD Work Phone: [facility] 05-16-2022 11:39-0500 Body temperature 97.7 [degF] Jennifer Santos MD Work Phone: [facility] 05-16-2022 11:39-0500 Body weight 83.92 kg Jennifer Santos MD Work Phone: [facility] 05-16-2022 11:39-0500 Diastolic blood pressure 76 mm[Hg] Jennifer Santos MD Work Phone: [facility] 05-16-2022 11:39-0500 Heart rate 81 /min Jennifer Santos MD Work Phone: [facility] 05-16-2022 11:39-0500 Respiratory rate 12 /min Jennifer Santos MD Work Phone: [facility] 05-16-2022 11:39-0500 SaO2% (BldA) [Mass fraction] 96 % Jennifer Santos MD Work Phone: [facility] 05-16-2022 11:39-0500 Systolic blood pressure 124 mm[Hg] Jennifer Santos MD Work Phone: [facility] 03-17-2022 14:42-0400 Body weight 85.73 kg Arpit Beck MD Work Phone: [facility] 03-17-2022 14:42-0400 Diastolic blood pressure 74 mm[Hg] Arpit Beck MD Work Phone: [facility] 03-17-2022 14:42-0400 Heart rate 95 /min Arpit Beck MD Work Phone: [facility] 03-17-2022 14:42-0400 Respiratory rate 16 /min Arpit Beck MD Work Phone: [facility] 03-17-2022 14:42-0400 SaO2% (BldA) [Mass fraction] 98 % Arpit Beck MD Work Phone: [facility] 03-17-2022 14:42-0400 Systolic blood pressure 132 mm[Hg] Arpit Beck MD Work Phone: [facility] 03-03-2022 15:13-0400 Body height 157.5 cm Jennifer Santos MD Work Phone: [facility] 03-03-2022 15:13-0400 Body temperature 99.19 [degF] Jennifer Santos MD Work Phone: [facility] 03-03-2022 15:13-0400 Body weight 85.73 kg Jennifer Santos MD Work Phone: [facility] 03-03-2022 15:13-0400 Diastolic blood pressure 70 mm[Hg] Jennifer Santos MD Work Phone: [facility] 03-03-2022 15:13-0400 Heart rate 90 /min Jennifer Santos MD Work Phone: [facility] 03-03-2022 15:13-0400 Respiratory rate 12 /min Jennifer Santos MD Work Phone: [facility] 03-03-2022 15:13-0400 SaO2% (BldA) [Mass fraction] 95 % Jennifer Santos MD Work Phone: [facility] 03-03-2022 15:13-0400 Systolic blood pressure 126 mm[Hg] Jennifer Santos MD Work Phone: [facility] 03-02-2022 22:56-0400 Diastolic blood pressure 83 mm[Hg] Dr. Jennifer Santos Work Phone: [facility] Work Phone: 03-02-2022 22:56-0400 Heart rate 74 /min Dr. Jennifer Santos Work Phone: [facility] Work Phone: 03-02-2022 22:56-0400 Respiratory rate 16 /min Dr. Jennifer Santos Work Phone: [facility] Work Phone: 03-02-2022 22:56-0400 SaO2% (BldA) [Mass fraction] 98 % Dr. Jennifer Santos Work Phone: [facility] Work Phone: 03-02-2022 22:56-0400 Systolic blood pressure 180 mm[Hg] Dr. Jennifer Santos Work Phone: [facility] Work Phone: 03-02-2022 18:26-0400 Body height 157.[address] Jennifer Santos Work Phone: [facility] Work Phone: 03-02-2022 18:26-0400 Body mass index (BMI) [Ratio] 35.2 kg/m2 Dr. Jennifer Santos Work Phone: [facility] Work Phone: 03-02-2022 18:26-0400 Body temperature 97.8 [degF] Dr. Jennifer Santos Work Phone: [facility] Work Phone: 03-02-2022 18:26-0400 Body weight 87.[address] Jennifer Santos Work Phone: [facility] Work Phone: 02-18-2022 07:12-0400 Body height 160.02 cm [facility] Work Phone: 02-18-2022 07:12-0400 Body mass index (BMI) [Ratio] 33.8 kg/m2 [facility] Work Phone: 02-18-2022 07:12-0400 Body temperature 97.5 [degF] [facility] Work Phone: 02-18-2022 07:12-0400 Body weight 86.63 kg [facility] Work Phone: 02-18-2022 07:12-0400 Diastolic blood pressure 90 mm[Hg] [facility] Work Phone: 02-18-2022 07:12-0400 Heart rate 88 /min [facility] Work Phone: 02-18-2022 07:12-0400 Respiratory rate 18 /min [facility] Work Phone: 02-18-2022 07:12-0400 SaO2% (BldA) [Mass fraction] 99 % [facility] Work Phone: 02-18-2022 07:12-0400 Systolic blood pressure 186 mm[Hg] [facility] Work Phone: 02-07-2022 07:10-0400 Body temperature 98.2 [degF] Torrey Athy PA-C Work Phone: [facility] 02-07-2022 07:10-0400 Body weight 86.73 kg Torrey Athy PA-C Work Phone: [facility] 02-07-2022 07:10-0400 Diastolic blood pressure 76 mm[Hg] Torrey Athy PA-C Work Phone: [facility] 02-07-2022 07:10-0400 Heart rate 94 /min Torrey Athy PA-C Work Phone: [facility] 02-07-2022 07:10-0400 Respiratory rate 18 /min Torrey Athy PA-C Work Phone: [facility] 02-07-2022 07:10-0400 SaO2% (BldA) [Mass fraction] 97 % Torrey Athy PA-C Work Phone: [facility] 02-07-2022 07:10-0400 Systolic blood pressure 142 mm[Hg] Torrey Athy PA-C Work Phone: [facility] 01-25-2022 08:53-0400 Body temperature 96.8 [degF] Zee León APRN.REPAIR TABLE OPERATOR Work Phone: [facility] 01-25-2022 08:53-0400 Body weight 86.82 kg Zee Romelia AERIAL ERECTOR.REPAIR TABLE OPERATOR Work Phone: [facility] 01-25-2022 08:53-0400 Diastolic blood pressure 102 mm[Hg] Zee Romelia AERIAL ERECTOR.REPAIR TABLE OPERATOR Work Phone: [facility] 01-25-2022 08:53-0400 Heart rate 93 /min Zee Romelia AERIAL ERECTOR.REPAIR TABLE OPERATOR Work Phone: [facility] 01-25-2022 08:53-0400 Respiratory rate 21 /min Zee Romelia AERIAL ERECTOR.REPAIR TABLE OPERATOR Work Phone: [facility] 01-25-2022 08:53-0400 SaO2% (BldA) [Mass fraction] 96 % Zee Romelia AERIAL ERECTOR.REPAIR TABLE OPERATOR Work Phone: [facility] 01-25-2022 08:53-0400 Systolic blood pressure 160 mm[Hg] Zee Romelia AERIAL ERECTOR.REPAIR TABLE OPERATOR Work Phone: [facility] 12-13-2021 13:19-0400 Body height 157.5 cm Natasha Woodside PA-C Work Phone: [facility] 12-13-2021 13:19-0400 Body temperature 98.01 [degF] Natasha Trevon PA-C Work Phone: [facility] 12-13-2021 13:19-0400 Body weight 87.54 kg Natasha Trevon PA-C Work Phone: [facility] 12-13-2021 13:19-0400 Diastolic blood pressure 68 mm[Hg] Natasha Woodside PA-C Work Phone: [facility] 12-13-2021 13:19-0400 Heart rate 101 /min Natasha Trevon PA-C Work Phone: [facility] 12-13-2021 13:19-0400 SaO2% (BldA) [Mass fraction] 98 % Natasha Trevon PA-C Work Phone: [facility] 12-13-2021 13:19-0400 Systolic blood pressure 112 mm[Hg] Natasha Lester PA-C Work Phone: [facility] 12-03-2021 13:52-0400 Body height 154.9 cm Kodi Muniz MD Work Phone: [facility] 12-03-2021 13:52-0400 Body temperature 98.71 [degF] Kodi Muniz MD Work Phone: [facility] 12-03-2021 13:52-0400 Body weight 86.64 kg Koid Muniz MD Work Phone: [facility] 12-03-2021 13:52-0400 Diastolic blood pressure 90 mm[Hg] Kodi Muniz MD Work Phone: [facility] 12-03-2021 13:52-0400 Heart rate 98 /min Kodi Muniz MD Work Phone: [facility] 12-03-2021 13:52-0400 SaO2% (BldA) [Mass fraction] 92 % Kodi Muniz MD Work Phone: [facility] 12-03-2021 13:52-0400 Systolic blood pressure 128 mm[Hg] Kodi Muniz MD Work Phone: [facility] 10-28-2021 09:49-0400 Body height 156.2 cm Zofia Donnelly AERIAL ERECTOR.REPAIR TABLE OPERATOR Work Phone: [facility] 10-28-2021 09:49-0400 Body temperature 97.39 [degF] Zofia Donnelly AERIAL ERECTOR.REPAIR TABLE OPERATOR Work Phone: [facility] 10-28-2021 09:49-0400 Body weight 87.77 kg Zofia Donnelly AERIAL ERECTOR.REPAIR TABLE OPERATOR Work Phone: [facility] 10-28-2021 09:49-0400 Diastolic blood pressure 76 mm[Hg] Zofia Donnelly AERIAL ERECTOR.REPAIR TABLE OPERATOR Work Phone: [facility] 10-28-2021 09:49-0400 Heart rate 75 /min Zofia Donnelly AERIAL ERECTOR.REPAIR TABLE OPERATOR Work Phone: [facility] 10-28-2021 09:49-0400 Systolic blood pressure 139 mm[Hg] Zofia Donnelly AERIAL ERECTOR.REPAIR TABLE OPERATOR Work Phone: [facility] Encounters Encounter Date Encounter Type Care Provider Facility Start: 04-26-2025 ambulatory [facility] Facility:[facility] Start: 04-26-2025 Evaluation and manag ement of inpatient [facility] Facility:[facility] Start: 04-24-2025 End: 04-24-2025 Emergency department patient visit [facility] Facility:[facility] Start: 04-13-2025 End: 04-13-2025 [facility] Facility:[facility] Start: 04-07-2025 ambulatory [facility] Start: 04-07-2025 ambulatory [facility] Start: 04-07-2025 End: 04-07-2025 Evaluation and management of inpatient [facility] Facility:[facility] Start: 04-04-2025 ambulatory [facility] Start: 04-04-2025 Non-patient / Non-visit Dr. Bran gould MD -[facility] Start: 04-04-2025 End: 04-04-2025 Emergency department patient visit Dr. Teodoro Daley MD -Emergency Department Work Phone: Start: 01-03-2025 End: 01-03-2025 Patient encounter procedure [place] [facility] Work Phone: Start: 01-03-2025 End: [...] Jennifer Santos MD Work Phone: [facility] [place] Start: 09-22-2024 End: 09-22-2024 ambulatory [facility] Facility:[facility] Start: 09-22-2024 End: 09-22-2024 Subsequent hospital visit by physician Screen Mammo [facility] Comment on above: Encounter for screen ing mammogram for breast cancer [Z12.31] Start: 09-14-2024 End: 09-14-2024 Telephone encounter Jennifer Santos MD Work Phone: [facility] [place] Comment on above: Orders Start: 05-11-2024 End: 05-11-2024 Telephone encounter Torrey Dawson PA-C Work Phone: [facility] Comment on above: Results Start: 05-10-2024 End: 05-10-2024 ambulatory [facility] Facility:[facility] Start: 05-10-2024 End: 05-10-2024 Patient encounter procedure Torrey Dawson PA-C Work Phone: [facility] Comment on above: Acute UTI (Primary D x); Screening for STD (sexually transmitted disease); Vaginal irritation Start: 11-18-2023 Telephone encounter Julieta nunez APRN.REPAIR TABLE OPERATOR Work Phone: [facility] Comment on above: Results Start: 11-18-2023 End: 11-18-2023 Subsequent hospital visit by physician Xr [facility] Work Phone: Radiology Comment on above: Acute cough [R05.1] Start: 11-17-2023 End: 11-17-2023 Patient encounter procedure Elaine Lemus APRN.REPAIR TABLE OPERATOR Work Phone: [facility] Comment on above: Sinobronchitis (Prim adeel Dx); Acute cough Start: 10-22-2023 Telephone encounter Cesar ann APRN.REPAIR TABLE OPERATOR Work Phone: [facility] Comment on above: Results Start: 10-21-2023 End: 10-21-2023 Patient encounter procedure Torrey Dawson PA-C Work Phone: [facility] Comment on above: Vaginal itching (Bailee bahman Dx) Start: 09-30-2023 End: 09-30-2023 Subsequent hospital visit by physician [facility] Work Phone: Radiology Comment on above: Abnormal mammogram o f left breast [R92.8] Start: 09-07-2023 End: 09-07-2023 Subsequent hospital visit by physician Screen Mammo [facility] Comment on above: ER+ (estrogen recept or positive status) [Z17.0] Start: 09-04-2023 Telephone encounter Ashlyn cancino AERIAL ERECTOR.INFRASTRUCTURE CONSULTANT Work Phone: Mammogram Comment on above: Orders Start: 09-01-2023 Telephone encounter Jennifer elam MD Work Phone: [facility] [place] Comment on above: Orders Start: 08-31-2023 Telephone encounter Zofia torres AERIAL ERECTOR.REPAIR TABLE OPERATOR Work Phone: Hematology/Oncology Start: 08-28-2023 End: 08-28-2023 Emergency department patient visit LENA JIMENEZ MD Facility:[facility] Start: 08-28-2023 End: 08-28-2023 Emergency department patient visit LENA JIMENEZ MD [facility] Start: 08-28-2023 End: 08-28-2023 Emergency department patient visit [facility] Work Phone: Start: 08-28-2023 End: 08-28-2023 Patient encounter procedure Julieta Oreilly AERIAL ERECTOR.REPAIR TABLE OPERATOR Work Phone: [facility] Comment on above: Blurred vision, righ t eye (Primary Dx) Start: 05-26-2023 End: 05-27-2023 [facility] Start: 05-21-2023 End: 05-21-2023 Patient encounter procedure Yaakov Richter MD Work Phone: [facility] Comment on above: Lip swelling (Primar y Dx) Angioedema of lips, subsequent encounter (Primary Dx) Start: 05-08-2023 End: 05-08-2023 Emergency department patient visit MISHEL PEREZ DO Facility:[facility] Start: 05-07-2023 End: 05-07-2023 Emergency department patient visit MISHEL PEREZ DO [facility] Start: 11-17-2022 ambulatory Kelly Minaya MA [facility]igate [facility] [place] Comment on above: Population Health Na vigation Outreach ([employer] Gaps ) Start: 09-04-2022 Documentation procedure Mammog day Coordinator [facility] Start: 09-04-2022 Letter encounter Mammography Coordinator [facility] Department Start: 09-04-2022 Telephone encounter Zofia torres AERIAL ERECTOR.REPAIR TABLE OPERATOR Work Phone: Hematology/Oncology Comment on above: Results Start: 09-03-2022 End: 09-03-2022 Subsequent hospital visit by physician Screen Mammo [facility] Comment on above: 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] Start: 08-18-2022 Telephone encounter Zofia torres AERIAL ERECTOR.REPAIR TABLE OPERATOR Work Phone: Hematology/Oncology Comment on above: Orders [...] Jennifer elam MD Work Phone: [facility] [place] Comment on above: Medication Question Swelling / itching i n left foot Start: 03-15-2022 Refill Jennifer Rhodes Work Phone: [facility] [place] Comment on above: Refill Request Start: 03-03-2022 End: 03-03-2022 Patient encounter procedure Jennifer Santos MD Work Phone: [facility] [place] Comment on above: Anxiety (Primary Dx) ; DVT (deep vein thrombosis) in ; Hyperlipidemia with target low density lipoprotein (LDL) cholesterol less than 130 mg/dL Start: 03-02-2022 End: 03-02-2022 Emergency department patient visit Dr. Jennifer Santos Work Phone: [place] [facility] Start: [facility]-18-[facility] Non-patient / Non-visit Dr. Mena Santos Work Phone: [facility] Start: 02-18-2022 End: 02-18-2022 [facility] Start: 02-07-2022 Telephone encounter Torrey frank PA-C Work Phone: [facility] Comment on above: Results Start: 02-07-2022 End: 02-07-2022 Patient encounter procedure Torrey Dawson PA-C Work Phone: [facility] Comment on above: Left leg swelling (P rimary Dx) Start: 01-25-2022 End: 01-25-2022 Patient encounter procedure Zee León APRN.CNP Work Phone: [facility] Comment on above: Urinary frequency (P rimary Dx); Elevated blood pressure reading without diagnosis of hypertension; Acute vaginitis Start: 12-13-2021 End: 12-13-2021 Patient encounter procedure Natasha KNAPP-C Work Phone: General Surgery Comment on above: Axillary abscess (Pr imary Dx) Start: 12-03-2021 End: 12-03-2021 Patient encounter procedure Kodi Muniz MD Work Phone: General Surgery Comment on above: Cutaneous abscess of right axilla (Primary Dx) Start: 11-06-2021 Telephone encounter Kailyn Riley RN He matology/Oncology Comment on above: Jde Developer - O ther (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 ) Start: 10-28-2021 End: 10-28-2021 ambulatory Zofia Donnelly APRN.REPAIR TABLE OPERATOR Work Phone: Hematology/Oncology Comment on above: 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) (Primary Dx); Cellulitis of axillary region Start: 10-28-2021 End: 10-28-2021 Patient encounter procedure Zofia Donnelly APRN.REPAIR TABLE OPERATOR Work Phone: [facility] Start: 09-02-2021 End: 09-02-2021 Subsequent hospital visit by physician Screen Mammo [facility] M[facility] Comment on above: 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] Start: 05-31-2021 Telephone encounter Jennifer elam MD Work Phone: Internal Medicine [place] Comment on above: Patient Update Procedures Date [...] exam ches t 2 views Elaine Lemus APRN.REPAIR TABLE OPERATOR Work Phone: Start: 10-21-2023 BACTERIAL VAGINOSIS NAAT Torrey Dawson PA-C Work Phone: Start: 10-21-2023 Iadna trichomonas va ginalis amplified probe tech Torrey Dawson PA-C Work Phone: Start: 10-21-2023 Urnls dip stick/tabl et rgnt auto w/o microscopy Torrey Dawson PA-C Work Phone: Start: 09-30-2023 Us breast uni real t joi with image limited Ashlyn Roger AERIAL ERECTOR.INFRASTRUCTURE CONSULTANT Work Phone: Start: 09-30-2023 Digital breast tomosynthesis unilateral Ashlyn Roger AERIAL ERECTOR.INFRASTRUCTURE CONSULTANT Work Phone: Start: 09-03-2022 BARBARA SCREENING W EL Da inge Donnelly AERIAL ERECTOR.REPAIR TABLE OPERATOR Work Phone: Start: 09-03-2022 Mammography Zofia torres AERIAL ERECTOR.REPAIR TABLE OPERATOR Work Phone: Start: 01-25-2022 Urnls dip stick/tabl et rgnt auto w/o microscopy Zee León AERIAL ERECTOR.REPAIR TABLE OPERATOR Work Phone: Start: 10-28-2021 Adult depression scr eening assessment Zofia Donnelly AERIAL ERECTOR.REPAIR TABLE OPERATOR Work Phone: Start: 09-02-2021 End: 09-02-2021 Screening mammography bi 2-view breast inc cad Zofia Donnelly AERIAL ERECTOR.REPAIR TABLE OPERATOR Work Phone: Start: 09-06-2020 Adult depression scr eening assessment Screen [facility] Start: 08-23-2018 Lipid 1996 panel - S daniel or Plasma Screen [facility] Start: 08-08-2014 Colonoscopy Screen Wst r Plan of Treatment Date Care Activity Detail Author Start: 05-22-2026 Diabetes Screening Diabetes Screenin g [facility] Start: 09-22-2025 Screening for malign ant neoplasm of breast Mammogram Screening [facility] Start: [facility]-07-[facility]25 [facility] Start: 04-07-2025 Non-patient / Non-visit Non-patient / [facility] Start: 04-07-2025 MRI of brain without contrast Brain without Contrast [facility] Start: 04-07-2025 Following clinical pathway protocol [facility] Start: 04-07-2025 Cardiac monitoring [facility] Start: 04-07-2025 Catheterization of vein [facility] Start: 04-07-2025 Consultation [facility] Start: 04-07-2025 Continuous pulse oximetry [facility] Start: 04-07-2025 Elevation of head of bed [facility] Start: 04-07-2025 Exercises [facility] Start: 04-07-2025 Notification of physician [facility] Start: 04-07-2025 Oxygen therapy [facility] Start: 04-07-2025 Patient referral to dietitian [facility] Start: 04-07-2025 Referral for physica l therapy [facility] Start: 04-07-2025 Referral to occupati onal therapist [facility] Start: 04-07-[address] [facility] Start: 04-07-2025 Speech therapy assessment [facility] Start: 04-07-2025 Telemedicine consult ation with patient [facility] Start: 04-07-2025 Tobacco use cessatio n education [facility] Start: 04-07-2025 End: 04-07-2025 [facility] Start: 04-07-2025 Vital signs measurements [facility] Start: 04-07-[address] [facility] Start: 04-07-2025 End: 04-07-2025 Evaluation and management of inpatient Confusion -Progressive Care Unit Work Phone: Start: 04-07-2025 CT angiography of he ad and neck CTA Head AND Neck W/ Contrast [facility] Start: 04-07-2025 CT of head without contrast Brain/Head without Contrast [facility] Start: 04-07-2025 [facility] Start: 04-04-2025 Emergency department visit moderate severity EMERGENCY DEPT VISIT LOW MDM [facility] Start: 04-04-2025 [facility] Start: 2025 RSV Vaccine (1 - 1-d ose 75+ series) RSV Vaccine (1 - 1-dose 75+ series) [facility] Start: 02-13-2025 Influenza vaccination C [facility] Start: 09-22-2024 End: 09-22-2024 Patient encounter procedure 09/22/2024 9:50 AM EDT Appointment Mammogram [address] [place] [address] yearly mammogram with el Mammogram Comment on above: yearly mammogram wit h el Start: 09-06-2024 Screening for malign ant neoplasm of breast Mammogram Screening [facility] Start: 08-08-2024 Colonoscopy COLONOSCOPY [facility] Start: 08-08-2024 COLORECTAL CANCER SCREENING COLORECTAL CANCER SCREENING [facility] Start: 08-08-2024 Screening for malign ant neoplasm of colon [facility] Start: 06-15-2024 Advance Directive Discussion Advance Directive Discussion [facility] Start: 06-15-2024 Medicare Advantage A nnual Wellness Visit Medicare Advantage Annual Wellness Visit [facility] Start: 02-14-2024 Covid-19 Vaccine () Covid-19 Vaccine () [facility] Start: 02-14-2024 Influenza vaccination C [facility] Start: 09-04-2023 Mammography [facility] Start: 09-04-2023 Screening for malign ant neoplasm of breast Mammogram Screening [facility] Start: 08-24-2023 Lipid 1996 panel - S daniel or Plasma Lipid Screening [facility] Start: 08-24-2023 Lipid panel Lipid Screening [facility] Start: 08-24-2023 LIPID SCREEN LIPID SCREEN [facility] Start: 06-15-2023 Advance Directive Discussion Advance Directive Discussion [facility] Start: 06-15-2023 Behavioral Health Screening Behavioral Health Screening [facility] Start: 06-15-2023 Depression Assessment Depression Ass essment [facility] Start: 05-27-2023 [facility] Start: 05-21-2023 End: 08-20-2023 Comprehensive metabolic 2000 panel - Serum or Plasma COMP METABOLIC PANEL Lab Routine Angioedema of lips, subsequent encounter Expected: 05/21/2023, Expires: 08/20/2023 [facility] Work Phone: Comment on above: Expected: 05/21/2023 , Expires: 08/20/2023 Start: 05-04-2023 Urine microalbumin profile DTaP,Tdap,Td Vaccine (1 - Tdap) [facility] Start: 02-13-2023 Covid-19 Vaccine ( season) Covid-19 Vaccine () [facility] Start: 02-13-2023 Influenza vaccination C [facility] Start: 10-28-2022 Adult depression screening assessment DEPRESSION SCREENING [facility] Start: 09-02-2022 Mammography MAMMOGRAM [facility] Start: 06-15-2022 ADVANCE DIRECTIVE DISCUSSION ADVANCE DIRECTIVE DISCUSSION [facility] Start: 06-15-2022 DEPRESSION ASSESSMENT DEPRESSION ASS ESSMENT [facility] Start: 03-03-2022 End: 05-03-2022 Basic metabolic 2000 panel - Serum or Plasma BASIC METABOLIC PNL Lab Routine Hyperlipidemia with target low density lipoprotein (LDL) cholesterol less than 130 mg/dL Expected: 03/03/2022, Expires: 05/03/2022 [facility] Work Phone: Comment on above: Expected: 03/03/2022 , Expires: 05/03/2022 Start: 03-03-2022 End: 05-03-2022 CBC W Auto Differential panel - Blood CBC + DIFF Lab Routine DVT (deep vein thrombosis) in Expected: 03/03/2022, Expires: 05/03/2022 [facility] Work Phone: Comment on above: Expected: 03/03/2022 , Expires: 05/03/2022 Start: 03-03-2022 End: 05-03-2022 Lipid 1996 panel - Serum or Plasma LIPID PANEL BASIC Lab Routine Hyperlipidemia with target low density lipoprotein (LDL) cholesterol less than 130 mg/dL Expected: 03/03/2022, Expires: 05/03/2022 [facility] Work Phone: Comment on above: Expected: 03/03/2022 , Expires: 05/03/2022 Start: 02-13-2022 Influenza vaccination INFLUENZA (#1) [facility] Start: 09-06-2021 Adult depression screening assessment DEPRESSION SCREENING [facility] Start: 08-23-2021 DIABETES SCREEN DIABETES SCREEN [facility] Start: 08-23-2021 Diabetes Screening Diabetes Screenin g [facility] Start: 08-03-2021 COVID-19 VACCINE (4 - Booster for Pfizer series) COVID-19 VACCINE (4 - Booster for Pfizer series) [facility] Start: 06-15-2021 ADVANCE DIRECTIVE DISCUSSION ADVANCE DIRECTIVE DISCUSSION [facility] Start: 06-15-2021 DEPRESSION ASSESSMENT DEPRESSION ASS ESSMENT [facility] Start: 05-28-2021 COVID-19 VACCINE (4 - Booster for Pfizer series) COVID-19 VACCINE (4 - Booster for Pfizer series) [facility] Start: 05-28-2021 COVID-19 VACCINE (4 - Pfizer series) COVID-19 VACCINE (4 - Pfizer series) [facility] Start: 07-13-2015 FECAL OCCULT BLOOD FECAL OCCULT BLOO D [facility] Start: 07-13-2015 Screening for malign ant neoplasm of colon Fecal Occult Blood [facility] Start: 2010 RSV Vaccine (1 - 1-d ose 60+ series) RSV Vaccine (1 - 1-dose 60+ series) [facility] Start: 02-21-2000 SHINGRIX VACCINE (1 of 2) FERRELL GRIX VACCINE (1 of 2) [facility] Start: 1995 COLOGUARD (FIT-DNA) COLOGUARD (FIT-D NA) [facility] Start: [address] COLONOGRAPHY [facility] Start: 1995 Screening for malign ant neoplasm of colon [facility] Start: 1995 SIGMOIDOSCOPY SIGMOIDOSCOPY [facility] Start: 1969 SHINGRIX VACCINE (1 of 2) FERRELL GRIX VACCINE (1 of 2) [facility] Start: 1969 Urine microalbumin profile [facility] Start: 02-21-1968 Depression Screening Depression Scre ening [facility] Start: 02-21-1968 HEPATITIS C SCREENING HEPATITIS C [facility] Start: 02-21-1968 Hepatitis C screening Hepatitis C [facility] Bacteria identified in Urine by Culture URINE CULTURE Microbiology Routine Urinary frequency Ordered: 01/25/2022 [facility] Work Phone: Comment on above: Ordered: 01/25/2022 Bacteria identified in Urine by Culture URINE CULTURE Microbiology Routine Acute UTI Ordered: 05/10/2024 [facility] Work Phone: Comment on above: Ordered: 05/10/2024 BACTERIAL VAGINOSIS AMPLIFICATION BACTERIAL VAGINOSIS AMPLIFICATION Lab Routine Acute vaginitis Ordered: 01/25/2022 [facility] Work Phone: Comment on above: Ordered: 01/25/2022 BACTERIAL VAGINOSIS NAAT BACTERI AL VAGINOSIS NAAT Lab Routine Screening for STD (sexually transmitted disease) 05/10/2024 1:17 PM EST [facility] ALBA / TRICHOMONA S AMPLIFICATION ALBA / TRICHOMONAS AMPLIFICATION Lab Routine Acute vaginitis Ordered: 01/25/2022 [facility] Work Phone: Comment on above: Ordered: 01/25/2022 ALBA/TRICHOMONAS NAAT ALBA /TRICHOMONAS NAAT Lab Routine Screening for STD (sexually transmitted disease) 05/10/2024 1:17 PM EST [facility] Chlamydia trachomatis+Neisseria gonorrhoeae DNA [Presence] in Unspecified specimen by RADHA with probe detection GONORRHEA/CHLAMYDIA NAAT Lab Routine Screening for STD (sexually transmitted disease) 05/10/2024 1:17 PM EST [facility] Comprehensive metabo lic 2000 panel - Serum or Plasma COMP METABOLIC PANEL Lab Routine Angioedema of lips, subsequent encounter 05/22/2023 10:39 AM EST [facility] Work Phone: End: 09-30-2024 DBT Breast - bilateral screening BARBARA SCREENING W EL Radiology Routine ER+ (estrogen receptor positive status) Encounter for screening mammogram for breast cancer 1 Occurrences starting 09/01/2023 until 09/30/2024 [facility] Work Phone: Comment on above: 1 Occurrences starti ng 09/01/2023 until 09/30/2024 DBT Breast - bilater al screening BARBARA SCREENING W EL Radiology Routine ER+ (estrogen receptor positive status) Encounter for screening mammogram for breast cancer 09/07/2023 2:25 PM EDT [facility] Work Phone: End: 10-14-2025 DBT Breast - bilateral screening BARBARA SCREENING W EL Radiology Routine Encounter for screening mammogram for breast cancer 1 Occurrences starting 09/14/2024 until 10/14/2025 [facility] Work Phone: Comment on above: 1 Occurrences starti ng 09/14/2024 until 10/14/2025 DBT Breast - bilater al screening BARBARA SCREENING W EL Radiology Routine Encounter for screening mammogram for breast cancer 09/22/2024 9:57 AM EDT [facility] Work Phone: Patient Education [facility] Work Phone: Patient referral [facility] Work Phone: End: 12-16-2024 XR Chest PA and Lateral XR CHEST 2V FRONTAL/LAT Radiology STAT Acute cough 1 Occurrences starting 11/17/2023 until 12/16/2024 [facility] Work Phone: Comment on above: 1 Occurrences starti ng 11/17/2023 until 12/16/2024 [facility] Immunizations Immunization Date Immunization Notes Care Provider [facility] 05-03-2023 tetanus and diphther ia toxoids, adsorbed, preservative free, for adult use (5 Lf of tetanus toxoid and 2 Lf of diphtheria toxoid) Yaakov Richter MD Work Phone: [facility] 04-02-2021 COVID-19 vaccine, ag e 12+ yr (Modern [employer] - PURPLE TOP) Screen [facility] 04-02-2021 influenza (aIIV4) vaccine, age 65+ yr, quadrivalent, PF (FLUAD QUAD) Yaakov Richter MD Work Phone: [facility] 04-02-2021 influenza, seasonal, injectable Screen [facility] 04-02-2021 influenza virus vacc ine, unspecified formulation Screen [facility] 09-13-2020 Covid (Pfizer) [facility] 08-23-2020 COVID-19 vaccine, ag e 12+ yr (Modern [employer] - PURPLE TOP) Screen [facility] 02-28-2020 influenza, high-dose , quadrivalent vaccine (FLUZONE HIGH DOSE QUADRIVALENT) Screen [facility] 02-28-2020 pneumococcal polysaccharide vaccine, 23 valent Screen [facility] 03-28-2019 influenza, high dose seasonal, preservative-free Screen [facility] 04-18-2017 influenza, seasonal, injectable Screen [facility] 03-18-2016 influenza, high dose seasonal, preservative-free Screen [facility] 04-06-2015 influenza, high dose seasonal, preservative-free Screen [facility] 04-06-2015 pneumococcal conjuga te vaccine, 13 valent Screen [facility] Payers Date Payer Category Payer Self-pay [id number] 2023 Private Health Insurance 1 [id number] 2021 Medicare HUMANA MEDICARE HUMANA MEDICARE PPO [id number] 2021-Present [phone] [address] [place] [address] PPO [id number] 2021 Medicare HUMANA MEDICARE HUMANA MEDICARE PPO [id number] 2021-Present [phone] [address] [place] [address] PPO [id number] 2021 Medicare (Managed Care) HUMANA EDICARE [id number] 2021 Private Health Insurance [id number] 2014 Medicaid MEDICAID [id number] 1950 Unknown [id number] 1950 Unknown [id number] Medicare MEDICARE PART A B [id number] Unknown [id number] Unknown [id number] 462 Unknown [id number] 462 Unknown [id number] 462 Unknown [id number] 462 Unknown [id number] 462 Unknown [id number] 462 Unknown [id number] 462 Unknown [id number] Unknown [id number] 462 Social History Date Type Detail Facility Start: 08-27-2012 End: 08-28-2023 Tobacco smoking status NHIS Never smoked tobacco [facility] Work Phone: Start: 07-29-2021 End: 05-10-2024 Alcohol intake Current non-drinker of alcohol (finding) [facility] Start: 1950 Sex Assigned At Not on file C [facility] Start: 08-23-2021 End: 05-16-2022 Exposure to SARS-CoV-2 (event) Not sure [facility] Start: 08-27-2012 End: 02-07-2022 Tobacco use and exposure Smokeless tobacco non-user [facility] Start: 02-18-2022 End: 04-07-2025 Tobacco smoking status NHIS Unknown if ever smoked [facility] Start: 01-23-2020 None [facility] Start: 01-23-2020 Alone [facility] Start: 1950 Sex Assigned At Female [facility] Start: 02-21-2022 End: 03-03-2022 Exposure to SARS-CoV-2 (event) Yes [facility] Work Phone: Start: 11-26-2022 End: 09-07-2023 History of Social function [facility] Work Phone: Start: 11-26-2022 End: 09-07-2023 Tobacco use panel [facility] Work Phone: Adult Depression Screening Assessment 6 [facility] Work Phone: Goals Date Patient Goal Desired Activity /State Functional Status Date Assessment Result Facility 04-07-2025 Functional status Standby Assist [facility] Work Phone: 08-28-2023 Functional Status ID band on, Call device within reach, Bed in low position, Wheels locked, Safety level maintained [facility] 05-07-2023 Functional Status Resting [facility] 09-16-2018 Are you deaf, or do you have serious difficulty hearing No 09/16/2018 5:47 PM RONALDT Xavier Poon III, MD No [facility] 09-16-2018 Are you blind, or do you have serious difficulty seeing, even when wearing glasses No 09/16/2018 5:47 PM Xavier Sauceda III, MD No [facility] 09-16-2018 Do you have serious difficulty walking or climbing stairs No 09/16/2018 5:47 PM Xavier Sauceda III, MD No [facility] 09-16-2018 Do you have difficul ty dressing or bathing No 09/16/2018 5:47 PM EDT Xavier Poon III, MD No [facility] 09-16-2018 Because of a physica l, mental, or emotional condition, do you have difficulty doing errands alone such as visiting a physician's office or shopping No 09/16/2018 5:47 PM EDT Xavier Poon III, MD No [facility] Mental Status Date Assessment Result Facility 04-07-2025 Cognitive function Voice/Name [facility] Work Phone: 08-28-2023 Mental Status Oriented x 4 [facility] 05-07-2023 Mental Status Oriented x 4 [facility] 09-16-2018 Because of a physica l, mental, or emotional condition, do you have serious difficulty concentrating, remembering, or making decisions No 09/16/2018 5:47 PM EDT Xavier Poon III, MD [facility] Clinical Notes 08-09-2014 to 04-13-2025 Note Date & Type Note Facility 04-13-2025 Note HNO ID: [id number] Author: KELLE PETER APRN.REPAIR TABLE OPERATOR Service: ? Author Type: Nurse Practitioner Type: Progress Notes Filed: 04/17/2025 08:20 Note Text: CC: Patient presents with: Recheck: [facility] ER follow up, DVT in leg HPI Ilene Shaw is a 75 year old female who presents today for follow up. 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 Patient/authorized sales representative [employer] agreed to proceed Ilene is a 75-year-old [...] Eliquis on 03/05. - Describes sensation as the world was spinning around. - Dizziness persists, described as feeling off. [...] Screening Discontinued DATA REVIEWED: Outside chart from [facility] reviewed. Assessment/Plan 1. Acute embolism and [...] kidney function st (more content not included)... [facility] 04-07-2025 Note [facility] Medical Records Department [address] [place] [address] Discharge Summary 04/07/25 1616 MR#: [id number] Acct: [id number] Name: ILENE SHAW Rep #: [id number] : 1950 75 From: Bran Courtney DO PCP: Dr. Jennifer Santos MD Status:ADM [id number] Providers Date of Admission: 04/07/25 Primary Care [...] (74 tabs) tablets in a dose pack ([employer] DVT-PE Treat 30D Start) See Rx Instructions [...] % (Auto) 59.7, Lymph % (Auto) 25.2, [place] % (Auto) 6.5, Eos % (Auto) 7.8 H, Baso % (Auto) 0.6, Absolute Neuts (auto) 5.1, Absolute Lymphs (auto) (more content not included)... [facility] 04-04-2025 Discharge summary Note Date/Time April 04, 2025 1:48pm [facility] Medical Records Department [address] [place] [address] Emergency Department Summary 04/04/25 MR#: [id number] Acct: [id number] Name: ILENE SHAW Rep #:[id number] : 1950 75 From: Teodoro Daley [...] housing: house Smoking Status: Never smoker [facility] ED Cardiovascular Cardiovascular: Denies chest pain, orthopnea, [...] 72.5 H Lymph % (Auto) 14.8 L [place] % (Auto) 5.3 Eos % (Auto) 6.3 [...] elevated in the emergency department. Print Language: Swazi Disposition Disposition: Home, Self Care What to do if you have Problems For any increased pain, shortness of breath, bleeding, nausea or vomiting, chestpain, or any unexpected problems, contact your Primary Care Provider. Call [facility] ([phone]) or report to the closest Emergency Room. Call 911 if necessary. 04/04/25 1244 <Electronically signed by Teodoro Daley MD> Cosigner Signature (if applicable): CC: Dr. Jennifer Santos MD ~ Signed [facility] Work Phone: 1(853) 460-375610-21-2025 Discharge summary [facility] Medical Records Department [address] [place] [address] Emergency Department Summary 04/04/25 MR#: [id number] Acct: [id number] Name: ILENE SHAW Rep #:[id number] : 1950 75 From: Teodoro Daley [...] 72.5 H Lymph % (Auto) 14.8 L [place] % (Auto) 5.3 Eos % (Auto) 6.3 [...] pack prescription. She was instructed follow-up with [facility] since she will need to be [facility] for 3 to 6 months. [...] elevated in the emergency department. Print Language: Swazi Disposition Disposition: Home, Self Care What to do if you have Problems For any increased pain, shortness of breath, bleeding, nausea or vomiting, chestpain, or any unexpected problems, contact your Primary Care Provider. Call [facility] ([phone]) or report tothe closest Emergency Room. Call 911 if necessary. 04/04/25 1248 Cosigner Signature (if applicable): CC: Dr. Jennifer Santos MD ~ Signed [facility]07-22-2025 Evaluation note* Diagnosis Onset Date Resolution [...] posterior cerebral artery deleted April 07 3:39am [facility] Work Phone: 1(656) 524-874807-08-2025 NoteHNO ID: [id number] Author: ?, ?, ? Service: ? Author Type: ? Type: Progress Notes Filed: 12/20/2024 09:23 Note Text: 3rd attempt LVM and [facility] History of Present illness Narrative* Nicki Conley - 12/20/2024 9:23 AM EDT 3rd attempt LVM and mailed letter * Nicki Conley - 12/07/2024 10:42 AM EDT 2nd attempt LVM to schedule colonoscopy * Angelica Trilpett - 11/30/2024 11:46 AM EDT 1'st attempt to schedule est well visit and open access colonoscopy. LVM to return call documented in this encounterClerm[facility]06-25-2025 NoteHNO ID: [id number] Author: ?, ?, ? Service: ? Author Type: ? Type: Progress Notes Filed: 12/20/2024 09:23 Note Text: 2nd attempt LVM to [facility]oscopy[facility]06[facility] Note HNO ID: [id number] Author: ?, ?, ? Service: ? Author Type: ? Type: Progress Notes Filed: 12/20/2024 09:23 Note Text: 1'st attempt to schedule est well visit and open access colonoscopy. LVM to return callK[facility]06-17-2025 Instructions* Patient Instructions* Lisa Whalen [...] am on dialysis? A: Please consult your die cutter prior to scheduling to get instructions pertinent [...] to inadequate prep quality. documented in this encounterClermont County Hospital06-17-2025 NotePatient Outreach (ASWSTR) ILENE SHAW ([id number]) 1950 F Date Time Provider Department 11/29/24 JENNIFER SANTOS During your visit today, we recorded the [...] Diabetic patients buy sugar-free, (more content not included)...[facility]04-10[facility] History of Present illness Narrative* [...] PATIENT PRESENTS WITH AN IMPLANTABLE OR ATTACHED MAGNET MAKER: No RADIOLOGY DEPARTMENT: Mammography PERIPHERAL IV DATA: Not applicable SIGNED BY: Natalee Peterson September 22, 2024 10:33 AM documented in this encounterClermont [facility] Hospital04-10-2025 NoteHNO ID: [id number] Author: COLIN OZUNA Mammo Tech Service: ? Author Type: Clip Loading Machine Adjuster Type: Progress Notes Filed: 09/22/2024 10:33 Note [...] PATIENT PRESENTS WITH AN IMPLANTABLE OR ATTACHED MAGNET MAKER: No RADIOLOGY DEPARTMENT: Mammography PERIPHERAL IV DATA: Not applicable SIGNED BY: Natalee Peterson September 22, 2024 10:33 [facility]04-02-2025 Telephone encounter Note* Telephone Encounter - Kelle Peter APRN.CNP - 09/14/2024 4:48 PM EDT Order placed Kelle Peter APRN.CNP [facility]04-02-2025 Miscellaneous Notes* Telephone Encounter - Kelle Peter APRN.CNP - 09/14/2024 4:48 PM EDT Order placed Kelle Peter APRN.CNP * Telephone Encounter - Soraya Pena - 09/14/2024 1:02 PM EDT Patient calling in for her yearly mammogram with el. Patient is scheduled, she just needs an order. Please review Soraya Pena September 14, 2024 1:03 PM documented in this encounterClermont County Hospital04-02-2025 Telephone encounter Note * Telephone Encounter - Soraya Pena - 09/14/2024 1:02 PM EDT Patient calling in for her yearly mammogram with el. Patient is scheduled, she just needs an order. Please review Soraya Pena September 14, 2024 1:03 PM [facility]11-27-[facility] Telephone encounter Note* Telephone Encounter - Claudette Dial LPN - 05/11/2024 7:07 PM EST Patient given results and verbalized understanding of instructions given. Claudette Dial LPN [facility]11-27-2024 Miscellaneous Notes* Telephone Encounter - [...] PCP if no improvement. documented in this encounterClermont County Hospital11-27-2024 Telephone encounter Note * Telephone Encounter - Montse Ramirez LPN - 05/11/2024 9:48 AM EST Left message for patient to return call for results.Montse Ramirez LPN [facility]11-27-2024 Telephone encounter Note* Telephone Encounter - Torrey Dawson PA-C - 05/11/2024 8:41 AM EST Please call and let patient know her STD testing was negative. She did test positive for yeast. I did send in medication for this. Urine culture is still pending will call as needed. Continue antibiotic as well. Follow-up with PCP if no improvement. [facility]11-26-2024 NoteHNO ID: [id number] Author: TORREY DAWSON PA-C Service: ? Author Type: Physician Recruiting Coordinator Type: Progress Notes Filed: 05/10/2024 14:21 Note Text: This note was created using Fleet Management Solutionsriter. Subjective Ilene Shaw is a 74 year [...] Exam Vitals reviewed. Exam conducted with a pony rougher present (Claudette ARTHUR). Constitutional: Appearance: Normal appearance. [...] N89.8 Given Mycolog cream for irritation. [facility]11-26-2024 History of Present illness Narrative* Torrey Dawson PA-C - 05/10/2024 2:17 PM EST This note was created using Fleet Management Solutionsriter. Subjective Ilene Shaw is a 74 year [...] unspecified (HCC) Still's disease (juvenile rheumatoid arthritis) ([facility]) Current Outpatient Medications Medication Sig Dispense Refill [...] Exam Vitals reviewed. Exam conducted with a pony rougher present (Claudette ARTHUR). Constitutional: Appearance: Normal appearance. [...] irritation. Torrey Dawson PA-C documented in this encounterClermont County Hospital06-05-2024 Telephone encounter Note * Telephone Encounter - Norma Tatum MA - 11/18/2023 1:08 PM EDT Patient given results and verbalized understanding of instructions given. Norma Tatum MA [facility]06-05-2024 Miscellaneous Notes* Telephone Encounter - Norma Tatum MA - 11/18/2023 1:08 PM EDT Patient given results and verbalized understanding of instructions given. Norma Tatum MA * Telephone Encounter - Julieta Oreilly APRN.CNP - 11/18/2023 11:32 AM EDT CXR negative. Please notify patient. Complete ATB and follow up with PCP as needed. Please advise patient. documented in this encounterClermont County Hospital06-05-2024 Telephone encounter Note * Telephone Encounter - Julieta Oreilly APRN.CNP - 11/18/2023 11:32 AM EDT CXR negative. Please notify patient. Complete ATB and follow up with PCP as needed. Please advise patient. [facility] Work Phone: 1(757) 199-859306-05-2024 History of Present illness Narrative* Mary Castro, RT(R) - 11/18/2023 11:00 AM EDT Radiology [...] PATIENT PRESENTS WITH AN IMPLANTABLE OR ATTACHED MAGNET MAKER: No RADIOLOGY DEPARTMENT: General X-ray: Exam(s) Completed: Chest X-Ray PERIPHERAL IV DATA: Not applicable SIGNED BY: RT Ravi(R) November 18, 2023 10:45 AM documented in this encounterClermont County Hospital06-04-2024 History of Present illness Narrative* Elaine Lemus, DEBO.REPAIR TABLE OPERATOR - 11/17/2023 6:40 PM EDT Subjective HPI [...] 08-18-14 RIGHT PERQ BREAST LOC [facility]ICE [facility] US IMAG 08/16/14 U/S right axillary marking [...] expected course of illness Elaine Lemus APRN.LACY documented in this encounterClermont County Hospital06-04-2024 Instructions* Patient Instructions* Elaine Lemus [...] days of proper treatment. documented in this encounterClermont County Hospital05-09-2024 Telephone encounter Note * Telephone Encounter - Julieth Houston MA - 10/22/2023 8:28 AM EDT Patient returned call, notified of results, states symptoms are improving with cream and will follow up for any persistent symptoms. Julieth Houston MA [facility]05-09-2024 Miscellaneous Notes* Telephone Encounter - [...] I will order diflucan. documented in this encounterClermont County Hospital05-09-2024 Telephone encounter Note * Telephone Encounter - Julieth Houston MA - 10/22/2023 8:23 AM EDT Left VM instructing patient to return call to discuss. Julieth Houston MA [facility]05-09-2024 Telephone encounter Note* Telephone Encounter - Cesar Ralph APRN.CNP - 10/22/2023 7:12 AM EDT Please notify labs were positive for yeast. The mycolog cream ordered may be sufficient to treat. Ask how s/s area. If s/s persisting I will order diflucan. [facility] Work Phone: 1(469) 937-328105-08-2024 History of Present illness Narrative* Torrey Dawson PA-C - 10/21/2023 12:47 PM EDT This note was created using Fleet Management Solutionsriter. Subjective Ilene Shaw is a 73 year [...] NAAT Torrey Dawson PA-C documented in this encounterClermont County Hospital04-17-2024 History of Present illness Narrative* [...] PATIENT PRESENTS WITH AN IMPLANTABLE OR ATTACHED MAGNET MAKER: No RADIOLOGY DEPARTMENT: Mammography PERIPHERAL IV DATA: Not applicable SIGNED BY: Nory Malino Maciel September 30, 2023 2:39 PM documented in this encounterClermont County Hospital03-25-2024 History of Present illness Narrative* [...] PATIENT PRESENTS WITH AN IMPLANTABLE OR ATTACHED MAGNET MAKER: No RADIOLOGY DEPARTMENT: Mammography PERIPHERAL IV DATA: Not applicable SIGNED BY: Hannah Kohler Mammo Maciel September 07, 2023 1:50 PM documented in this encounterClermont County Hospital03-22-2024 Miscellaneous Notes* Telephone Encounter - Ashlyn Roger APRN.CNS - 09/04/2023 8:08 AM EDT The order is already filed, do I need to re-enter it? * Telephone Encounter - Colin Ozuna Mammo Maciel - 09/04/2023 7:51 AM EDT Can you release the mammogram order? Pt scheduled with us 09/06. Thanks a million documented in this encounterClermont County Hospital03-19-2024 Miscellaneous Notes* Telephone Encounter - [...] ordered. Micaela Beaulieu LPN documented in this encounterClermont County Hospital03-18-2024 Miscellaneous Notes* Telephone Encounter - Bonnie Ibarra LPN - 08/31/2023 2:19 PM EDT Detailed message left on patient's identified VM. Bonnie Ibarra LPN * Telephone Encounter - Zofia Donnelly APRN.CNP - 08/31/2023 2:07 PM EDT Pt. can have her yearly breast exam/mammogram ordered by PCP or MECHATRONICS TECHNOLOGIST at this point. Follow up here as needed. Thank you. Zofia Donnelly APRN.REPAIR TABLE OPERATOR * Telephone Encounter - Bonnie Ibarra LPN [...] follow up with you. documented in this encounterClermont County Hospital03-15-2024 Hospital Discharge instructions Patient Education [...] bleeding from other parts of your body [phone] [employer]. [address] [place] [address]. All rights reserved. This information is not intended as a substitute for professional medical care. Always follow yourhealthcare professional's instructions. Follow Up Care 08/28/2023 18:24:22 With:JENNIFER SANTOS MD Address: [address] [place] [address]- When:2-4 days [facility] 03-15-2024 Note Discharge Instructions Thank you for allowing [facility] to assist you with your healthcare needs. The following is importantdischarge information regarding your hospital visit. Diagnosis from Today's Visit Eye problem Subconjunctival hemorrhage What to Do Next Instructions from Your Care Team No qualifying data available. Post Acute Orders No qualifying data available. You Need to Schedule the Following Appointments Follow Up with JENNIFER SANTOS MD When Within 2-4 days Where: [address] [place] [address]- Allergies ampicillin predniSONE Medications Please ask your [...] bleeding from other parts of your body [phone] [employer]. [address] [place] [address]. All rights reserved. This information is not intended as a substitute for professional medical care. Always follow yourhealthcare professional's instructions. Additional Information VACCINATE! IT SAVES LIVES! Members of the community who have not yet received the COVID-19 vaccine and would like to receive it can visit one of [facility] vaccine clinics. There are many vaccine clinic locations within the [facility]. For locations and available times, please visit www.gettheshot.coronavirus.[place].gov/. It is important to note that some COVID mobile vaccine clinics are held outdoors and may be canceled in rainy or stormy conditions. To learn more about pediatric vaccinations (ages 5-11), we invite you to visit the [facility] webpage. https://www.akronGetBulbs.org/pages/9952-Nlqts-Aphbbazodur-Masavrjygl-Tfepv-Jkv stions.htmlTo learn more about the COVID-19 vaccine, we invite you to visit the CDC website for a list of frequently asked questions. https://www.cdc.gov/coronavirus/2019-ncov/vaccines/faq.html [facility] Patient Portal Access Instructions: Stay connected with your healthcare team and access your personal medical information anytime with the [facility] Patient Portal. If you would like a full copy of your medical records please contact the [facility] Medical Records Department Thursday through Thursday between 8a.m. and 4:30p.m. Please follow the directions below to access the portal: 1.Access the email account you provided upon registration to the hospital.2.Look for an invitation email from [facility].3.Open the email and access the invitation link: Accept Invitation to [facility]4.Fill in the required ness to create your account. Sign into www.[email or web address] IO with your username and password that you [...] you will allow to register on the [facility] Patient Portal for access to your information. You can also access the [facility] Patient Portal on the [employer]rive [employer]. Simply click on Health Records under [employer] and then click on the Wildfire, a division of [employer] logo. HOW TO SAFELY DISPOSE OF PRESCRIPTION [...] Call your local pharmacy or go to http://Clone.ComplyMD/0N1Rl0s to find one close to you.3.Make use of household items: Use cat litter or old coffee grounds to dispose medications if other options arenot available. Mix your drugs with these household products, seal them in an airtight container andthrow it into the garbage. Call [facility]: [phone] to be sure your drugs can be [...] aware that I should contact my doctor. Patient/Insurance Law Specialist Signature: Date/Time: Relationship to Patient: Witness Name/Signature: Date/Time: [facility]03-15-2024 History of Present illness Narrative * [...] day Referred to ED documented in this encounterClermont County Hospital12-08-2023 History of Present illness Narrative* Rolf Burger MD - 05/22/2023 12:49 PM EST This note was created using NoteWriter. Subjective Patient presents with: ER F/U: [facility] 05/07/23- facial swelling PCP MD Stella Chisholmprema Shaw is a 73 year old female who developed facial and upper lip swelling . She went to the [facility] ER, and was treated with IV [...] month. Rolf Burger MD documented in this encounterClermont County Hospital12-07-2023 History of Present illness Narrative* Yaakov Richter MD - 05/21/2023 1:55 PM EST [facility] Triage Note: [facility] with complaint of lip swelling. She had been treated in the ERfor lip and face swelling 05/07/23 with medrol and benadryl. She had left lip swelling returned yesterday. It is improving today. No shortness of breath or wheezing. Scheduled with internal medicine for ER follow up today. documented in this encounterClermont County Hospital11-24-2023 Hospital Discharge instructions Patient Education [...] products Chemicals or dyes in clothing, linen, baking factory worker, hair dyes, soaps, iodine Many viruses and [...] damage the skin. Oral diphenhydramine is an xlqx-xfd-oyrjova antihistamine sold at pharmacy and grocery stores. [...] hours, or as directed by your provider [phone] [employer]. [address] [place] [address], [place] [address]. All rights reserved. This information is not intended as a substitute for professional medical care. Always follow yourhealthcare professional's instructions. Follow Up Care 05/07/2023 22:34:33 With:JENNIFER SANTOS MD Address: [address] [place] [address]- When:2-4 days [facility] 11-23-2023 Note Discharge Instructions Thank you [...] MD When Within 2-4 days Where: [address] [place] [address]- Allergies ampicillin predniSONE Medications Please ask your [...] expected to produce life threatening symptoms. 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 What other drugs will affect methylprednisolone? Other drugs may interact with methylprednisolone, including prescription and kyho-ypo-bkxgmkt medicines, vitamins, and herbal products. Tell each [...] to ensure that the information provided by [employer]. ('Mult[employer]') is accurate, up-to-date, and complete, but no guarantee is made to that effect. Drug information contained herein may be time sensitive. [employer] information has been compiled for use by healthcare practitioners and consumers in the [place] and therefore [employer] does not warrant that uses outside of the [place] are appropriate, unless specifically indicated otherwise. SmartStudy.coms drug information does not endorse drugs, diagnose patients or recommend therapy. SmartStudy.coms drug information isan informational resource designed to [...] effective or appropriate for any given patient. [employer] does not assume any responsibility for any aspect of healthcare administered with the aid of information [employer] provides. The information contained herein is not intended to cover all possible uses, directions, precautions, warnings, drug interactions, allergic reactions, or adverse effects. If you have questions about the drugs you are taking, check with your doctor, nurse or pharmacist. Copyright 6026-3403 [employer]. Version: 9.01. Revision Date: 02/11/2017. Education Materials [...] products Chemicals or dyes in clothing, linen, baking factory worker, hair dyes, soaps, iodine Many viruses and [...] damage the skin. Oral diphenhydramine is an xmff-mla-harptmv antihistamine sold at pharmacy and grocery stores. [...] hours, or as directed by your provider [phone] [employer]. [address] [place] [address]. All rights reserved. This information is not intended as a substitute for professional medical care. Always follow yourhealthcare professional's instructions. Additional Information VACCINATE! IT SAVES LIVES! Members of the community who have not yet received the COVID-19 vaccine and would like to receive it can visit one of [facility] vaccine clinics. There are many vaccine clinic locations within the [facility]. For locations and available times, please visit www.gettheshot.coronavirus.[place].gov/. It is important to note that some COVID mobile vaccine clinics are held outdoors and may be canceled in rainy or stormy conditions. To learn more about pediatric vaccinations (ages 5-11), we invite you to visit the [facility] webpage. https://www.[facility].org/pages/9839-Lxoml-Ywyykycoshg-Bupmrojjoc-Fmpuh-Tex stions.htmlTo learn more about the COVID-19 vaccine, we invite you to visit the CDC website for a list of frequently asked questions. https://www.cdc.gov/coronavirus/2019-ncov/vaccines/faq.html [facility] Patient Portal Access Instructions: Stay connected with your healthcare team and access your personal medical information anytime with the [facility] Patient Portal. If you would like a full copy of your medical records please contact the [facility] Medical Records Department Thursday through Thursday between 8a.m. and 4:30p.m. Please follow the directions below to access the portal: 1.Access the email account you provided upon registration to the [facility].2.Look for an invitation email from [facility].3.Open the email and access the invitation link: Accept Invitation to [facility]4.Fill in the required ness to create your account. Sign into www.USINE IO with your username and password that you [...] you will allow to register on the [facility] Patient Portal for access to your information. You can also access the [facility] Patient Portal on the Thrive Metrics. Simply click on Health Records under [employer] and then click on the Wildfire, a division of Google logo. HOW TO SAFELY DISPOSE OF PRESCRIPTION [...] Call your local pharmacy or go to http://bit.ComplyMD/0E9Cu5z to find one close to you.3.Make use of household items: Use cat litter or old coffee grounds to dispose medications if other options arenot available. Mix your drugs with these household products, seal them in an airtight container andthrow it into the garbage. Call [facility]: [phone] to be sure your drugs can be [...] aware that I should contact my doctor. Patient/Insurance Law Specialist Signature: Date/Time: Relationship to Patient: Witness Name/Signature: Date/Time: [facility]06-05-2023 History of Present illness Narrative * [...] 17, 2022 1:55 PM documented in this encounterClermont County Hospital03-23-2023 Miscellaneous Notes* Telephone Encounter - [...] you. Zofia Donnelly APRN.CNP documented in this encounterClermont County Hospital03-23-2023 Miscellaneous Notes* Letter - Mammography Coordinator - 09/04/2022 8:37 AM EDT September 05, 2022 PID: [id number] Ilene Shaw [address] [place] [address] Dear Ms. Shaw, We are pleased to [...] report will be kept on [facility] as part of your permanent medical record and are available for your continuing care. Thank you for allowing us to help in meeting your health care needs. Sincerely, Dr. Garcia Interpreting Radiologist [facility] (Normal over 40) documented in this encounterClermont County Hospital03-07-2023 Miscellaneous Notes* Telephone Encounter - [...] for appointment on 09/03/22. documented in this encounterClermont County Hospital12-30-2022 Miscellaneous Notes* Telephone Encounter - [...] she is going with her daughter to [place] to get a CT. She states she [...] sleep at night. Protocols used: Medication Question [id number] documented in this encounterClermont County Hospital12-02-2022 History of Present illness Narrative* [...] the past 2 weeks, was working in [place]. Dr Beck wonderful note has chronological history well articulated which is pasted in my note. Healso started her on prasdaxa. She was found [...] rx. Jennifer Santos MD documented in this encounterClermont County Hospital10-04-2022 Miscellaneous Notes* Telephone Encounter - [...] office and requested RX be sent to [facility] here in [place]. Confirmed withtheir pharmacy that medication is in [...] the Xarelto until she is able to chart picker the other medication? Please call and advise. documented in this encounterClermont County Hospital10-03-2022 History of Present illness Narrative* [...] CAPSULE Arpit Beck MD documented in this encounterClermont County Hospital10-03-2022 Miscellaneous Notes* Telephone Encounter - [...] day appt for evaluation. documented in this encounterClermont County Hospital10-01-2022 Miscellaneous Notes* Telephone Encounter - Klaudia Mas LPN - 03/15/2022 10:35 AM EDT 1.Pt calling for a refill of her new rx of xarelto 20 mg daily to the pharmacy. 2. Pt complaining of hand swelling. She can't take prednisone. Is there something else csh can take? documented in this encounterClermont County Hospital09-19-2022 History of Present illness Narrative* [...] to her lips. 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 She still takes her lexapro and gets it from [place]. She can takes the xanax once at [...] months Jennifer Santos MD documented in this encounterClermont County Hospital08-26-2022 Miscellaneous Notes* Telephone Encounter - Torrey Dawson PA-C - 02/07/2022 11:11 AM EDT I called and discussed the ultrasound with the patient showing the superficial vein thrombosis in the greater saphenous and varicose vein. Discussed warm compresses, NSAIDs. I did have her make a follow-up appointment next week with PCP. Patient agreeable. documented in this encounterClermont County Hospital08-26-2022 History of Present illness Narrative* Torrey Dawson PA-C - 02/07/2022 9:01 AM EDT This note was created using [employer]. Subjective Ilene Shaw is a 71 year [...] LAB Torrey Dawson PA-C documented [facility] encounter[facility] Instructions* Patient Instructions* Zee León [...] - BACTERIAL VAGINOSIS AMPLIFICATION documented in this encounterClermont [facility]08-13-2022 History of Present illness Narrative* Zee León APRN.CNP - 01/25/2022 9:18 AM EDT Subjective The history is provided by the patient. No speech language specialist was used. ILAN Shaw is a 71 [...] have confirmed and edited as necessary, the [facility] Review of Systems Constitutional: Negative for chills [...] evaluation. Zee León APRN.LACY documented in this encounterClermont [facility] Hospital07-04-2022 History of Present illness Narrative* Natasha Lester PA-C - 12/16/2021 10:19 PM EDT FOLLOW UP VISIT - ABSCESS NAME: Ilene [facility] NO.: [id number] DATE OF SERVICE: 12/13/2021 : 1950 REFERRING [...] conservatively with Bactrim after going to the [facility]. She was seen by Zofia [...] which included preparing to see the patient, [id number] patient care, completing clinical documentation, obtaining and/or reviewing separately obtained history, performing a medically appropriate examination and counseling and educating the patient/family/caregiver. Natasha Lester PA-C documented in this encounterClermont [facility]07-01-2022 Instructions* Patient Instructions* Natasha Lester PA-C - 12/13/2021 1:49 PM EDT -Hibiclens wash daily over the next 2 weeks -May apply small amount of Bactroban -Follow up if any recurrent lumps or pain documented in this encounterClermont [facility] Hospital06-21-2022 History of Present illness Narrative* [...] conservatively with Bactrim after going to the [facility]. She was seen by Zofia [...] entered by the nurse and reviewed by mi Nursing Notes: Bahman Hutchison LPN 12/03/2021 1:56 [...] 10 to 12 days with my physician academic assistant to make sure that we have [...] Kodi Muniz III, MD documented in this encounterClermont [facility]06-21-2022 Nurse Note* Bahman HutchisonHOPE - 12/03/2021 1:54 PM EDT REVIEW OF [...] 2014 Bahman Hutchison LPN documented in this encounterClermont [facility]05-25-2022 Miscellaneous Notes* Telephone Encounter - [...] consultation. Kailyn Riley RN documented in this encounterClermont [facility]05-16-2022 History of Present illness Narrative* Zofia Donnelly APRN.CNP - 10/28/2021 9:50 AM EDT Chief Complaint Patient presents with: Established Patient HPI: Ilene Shaw is a 71 year old female who presents here today for follow up breast cancer. Per Dr. Weller's previous note: H/o stage IC, pT1c, pN0, ER/DE positive HER-2 non-overexpressed, right breast cancer, status [...] 95% and HER-2/edmond is 1+. Stage I, [id number]. Patient started her adjuvant radiation therapy a [...] cm (5' 1.5) Wt 87.8 kg (193 lb8 oz) BMI [...] 174.9, ICD10: C50.911 (primarydiagnosis) Stage I c, ER/DE positive HER-2 non- overexpressed breast cancer. - [...] visit. Zofia Donnelly APRN.LACY documented in this encounterClermont [facility] Hospital03-21-2022 History of Present illness Narrative* Carley Nelson RT(R) - 09/02/2021 10:50 AM EDT Radiology [...] 02, 2021 10:40 AM documented in this encounterClermont County Hospital03-21-2022 Miscellaneous Notes* Result QuickNote - Zofia Donnelly APRN.CNP - 09/02/2021 10:50 AM EDT Please inform pt. that her mammogram is fine. Pt. needs OV in the next few weeks. Thank you. Zofia Donnelly APRN.CNP documented in this encounterClermont [facility] Hospital12-17-2021 Miscellaneous Notes* Telephone Encounter - Sheree Ferrer RN - 05/31/2021 11:32 AM EST Patient calls to report she continues to take Bactrim DS for lump under arm but now she is developing a yeast infection. States yeast infection started yesterday and symptoms are worsening. [facility] Please review and advise, Sheree Ferrer RN documented in this encounterClermont County Hospital09-28-2015 History of Past illness Narrative* Problem Noted Date Resolved Date Breast cancer, right 03/12/2015 02/11/2022 Breast cancer 08/14/2014 02/11/2022 Lump or mass in breast 08/09/2014 9 documented as of this encounter (statuses as of 03/03/2022) [facility] of [facility] illness Narrative* Problem Noted Date Resolved Date Breast cancer, right 03/12/2015 02/11/2022 Breast cancer 08/14/2014 02/11/2022 Lump or mass in breast 08/09/2014 9 documented as of this encounter (statuses as of 03/15/2022) [address]28-2015 History of Past illness Narrative* Problem Noted Date Resolved Date Breast cancer, right 03/12/2015 02/11/2022 Breast cancer 08/14/2014 02/11/2022 Lump or mass in breast 08/09/2014 9 documented as of this encounter (statuses as of 03/18/2022) [address]28-2015 History of Past illness Narrative* Problem Noted Date Resolved Date Breast cancer, right 03/12/2015 02/11/2022 Breast cancer 08/14/2014 02/11/2022 Lump or mass in breast 08/09/2014 9 documented as of this encounter (statuses as of 03/18/2022) [address]28-2015 History of Past illness Narrative* Problem Noted Date Resolved Date Breast cancer, right 03/12/2015 02/11/2022 Breast cancer 08/14/2014 02/11/2022 Lump or mass in breast 08/09/2014 9 documented as of this encounter (statuses as of 05/16/2022) [address]28-2015 History of Past illness Narrative* Problem Noted Date Resolved Date Breast cancer, right 03/12/2015 02/11/2022 Breast cancer 08/14/2014 02/11/2022 Lump or mass in breast 08/09/2014 9 documented as of this encounter (statuses as of 06/18/2022) [address]28-2015 History of Past illness Narrative* Problem Noted Date Resolved Date Breast cancer, right 03/12/2015 02/11/2022 Breast cancer 08/14/2014 02/11/2022 Lump or mass in breast 08/09/2014 9 documented as of this encounter (statuses as of 09/04/2022) [address]28-2015 History of Past illness Narrative* Problem Noted Date Resolved Date Breast cancer, right 03/12/2015 02/11/2022 Breast cancer 08/14/2014 02/11/2022 Lump or mass in breast 08/09/2014 9 documented as of this encounter (statuses as of 09/06/2022) [address]28-2015 History of Past illness Narrative* Problem Noted Date Resolved Date Breast cancer, right 03/12/2015 02/11/2022 Breast cancer 08/14/2014 02/11/2022 Lump or mass in breast 08/09/2014 9 documented as of this encounter (statuses as of 10/09/2022) [address]28-2015 History of Past illness Narrative* Problem Noted Date Resolved Date Breast cancer, right 03/12/2015 02/11/2022 Breast cancer 08/14/2014 02/11/2022 Lump or mass in breast 08/09/2014 9 documented as of this encounter (statuses as of 11/17/2022) [address]28-2015 History of Past illness Narrative* Problem Noted Date Diagnosed Date Resolved Date Breast cancer, right 03/12/2015 022 Breast cancer 08/14/2014 02/11/2022 Lump or mass in breast 08/09/201408/23 documented as of this encounter (statuses as of 01/28/2023) [address]28-2015 History of Past illness Narrative* Problem Noted Date Diagnosed Date Resolved Date Breast cancer, right 03/12/2015 022 Breast cancer 08/14/2014 02/11/2022 Lump or mass in breast 08/09/201408/23 documented as of this encounter (statuses as of 04/19/2023) [address]28-2015 History of Past illness Narrative* Problem Noted Date Diagnosed Date Resolved Date Breast cancer, right 03/12/2015 022 Breast cancer 08/14/2014 02/11/2022 Lump or mass in breast 08/09/201408/23 documented as of this encounter (statuses as of 05/21/2023) [address]28-2015 History of Past illness Narrative* Problem Noted Date Diagnosed Date Resolved Date Breast cancer, right 03/12/2015 022 Breast cancer 08/14/2014 02/11/2022 Lump or mass in breast 08/09/201408/23 documented as of this encounter (statuses as of 05/22/2023) [address]28-2015 History of Past illness Narrative* Problem Noted Date Diagnosed Date Resolved Date Breast cancer, right 03/12/2015 022 Breast cancer 08/14/2014 02/11/2022 Lump or mass in breast 08/09/201408/23 documented as of this encounter (statuses as of 08/28/2023) [address]28-2015 History of Past illness Narrative* Problem Noted Date Diagnosed Date Resolved Date Breast cancer, right 03/12/2015 022 Breast cancer 08/14/2014 02/11/2022 Lump or mass in breast 08/09/201408/23 documented as of this encounter (statuses as of 08/31/2023) [address]28-2015 History of Past illness Narrative* Problem Noted Date Diagnosed Date Resolved Date Breast cancer, right 03/12/2015 022 Breast cancer 08/14/2014 02/11/2022 Lump or mass in breast 08/09/201408/23 documented as of this encounter (statuses as of 09/01/2023) [place] [address]28-2015 History of Past illness Narrative* Problem Noted Date Diagnosed Date Resolved Date Breast cancer, right 03/12/2015 022 Breast cancer 08/14/2014 02/11/2022 Lump or mass in breast 08/09/201408/23 documented as of this encounter (statuses as of 09/07/2023) [address]28-2015 History of Past illness Narrative* Problem Noted Date Diagnosed Date Resolved Date Breast cancer, right 03/12/2015 022 Breast cancer 08/14/2014 02/11/2022 Lump or mass in breast 08/09/201408/23 documented as of this encounter (statuses as of 09/08/2023) [address]28-2015 History of Past illness Narrative* Problem Noted Date Diagnosed Date Resolved Date Breast cancer, right 03/12/2015 022 Breast cancer 08/14/2014 02/11/2022 Lump or mass in breast 08/09/201408/23 documented as of this encounter (statuses as of 10/01/2023) [facility] Narrative* Problem Noted Date Diagnosed Date Resolved Date Breast cancer, right 03/12/2015 022 Breast cancer 08/14/2014 02/11/2022 Lump or mass in breast 08/09/201408/23 documented as of this encounter (statuses as of 10/01/2023) [facility] Narrative* Problem Noted Date Resolved Date Lump or mass in breast 08/09/2014 9 documented as of this encounter (statuses as of 09/03/2021) [facility] Narrative* Problem Noted Date Resolved Date Lump or mass in breast 08/09/2014 9 documented as of this encounter (statuses as of 10/30/2021) [facility] Narrative* Problem Noted Date Resolved Date Lump or mass in breast 08/09/2014 9 documented as of this encounter (statuses as of 11/06/2021) [facility] Narrative* Problem Noted Date Resolved Date Lump or mass in breast 08/09/2014 9 documented as of this encounter (statuses as of 12/03/2021) [facility] Narrative* Problem Noted Date Resolved Date Lump or mass in breast 08/09/2014 9 documented as of this encounter (statuses as of 12/17/2021) [facility] Narrative* Problem Noted Date Resolved Date Lump or mass in breast 08/09/2014 9 documented as of this encounter (statuses as of 01/25/2022) [facility] Narrative* Problem Noted Date Resolved Date Lump or mass in breast 08/09/2014 9 documented as of this encounter (statuses as of 01/30/2022) [address]25-2015 History of Past illness Narrative* Problem Noted Date Resolved Date Lump or mass in breast 08/09/2014 9 documented as of this encounter (statuses as of 02/07/2022) [facility] Narrative* Problem Noted Date Resolved Date Lump or mass in breast 08/09/2014 9 documented as of this encounter (statuses as of 02/07/2022) [facility] Author Venkat Mustafa [facility] May 27, 2023 1:39am Note Date/Time May 27, 2023 12:45am [facility] Medical Records Department [address] [place] [address] Emergency Department Summary 05/27/23 MR#: [id number] Acct: [id number] Name: ILENE SHAW Rep #:[id number] : 1950 73 From: Venkat Mustafa [...] she states that took care of it. [facility] Medical History Adult-onset Still's disease Anxiety [...] your Primary Care Provider. Call [facility] ([phone]) or report to the closest Emergency Room. Call 911 if necessary. 05/27/23 013 <Electronically signed by Venkat Mustafa MD> Cosigner Signature (if applicable): CC: Dr. Jennifer Santos MD ~ Signed [facility] Work Phone: Evaluation + Plan note No data available for this section [facility] Evaluation note* Diagnosis 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) Encounter for screening mammogram for high-risk patient [facility] Diagnosis 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)- Primary Cellulitis of axillary region Cellulitis and abscess of upper arm and forearm [facility] Diagnosis Cutaneous abscess of right axilla- Primary Cellulitis and abscess of upper arm and forearm [facility] Diagnosis Axillary abscess- Primary Cellulitis and abscess of upper arm and forearm [facility] Urinary frequency- Primary Elevated blood pressure reading without diagnosis of hypertension Acute vaginitis Vaginitis and vulvovaginitis, unspecified [facility] Diagnosis Left leg swelling- Primary Swelling of limb documented [facility] noteNo assessment information availableWMartin Memorial Hospital Work Phone: Evaluation note* Diagnosis Anxiety- Primary Anxiety state, unspecified DVT (deep vein thrombosis) in Deep phlebothrombosis, antepartum, unspecified as to episode of care Hyperlipidemia with target low density lipoprotein (LDL) cholesterol less than 130 mg/dL [facility] Diagnosis Recurrent deep vein thrombosis (DVT) of lower extremity, unspecified laterality (HCC)- Primary Allergy to antithrombotic medication [facility]* Diagnosis Recurrent deep vein thrombosis (DVT) of lower extremity, unspecified laterality (HCC) [facility] Diagnosis Recurrent deep vein thrombosis (DVT) (HCC)- Primary Pedal edema Edema Other acute sinusitis, recurrence not specified [facility]* Diagnosis 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)- Primary Personal history of breast cancer Personal history of malignant neoplasm of breast Encounter for screening mammogram for malignant neoplasm of breast Other screening mammogram [facility] Diagnosis 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) Personal history of breast cancer Personal history of malignant neoplasm of breast Encounter for screening mammogram for malignant neoplasm of breast Other screening mammogram [facility]* Diagnosis Lip swelling- Primary Diseases of lips [facility]* Diagnosis Angioedema of lips, subsequent encounter- Primary [facility]* Diagnosis Blurred vision, right eye- Primary Other specified visual disturbances [facility]* Diagnosis ER+ (estrogen receptor positive status)- Primary Estrogen receptor positive status [ER+] Encounter for screening mammogram for breast cancer [facility] Diagnosis ER+ (estrogen receptor positive status) Estrogen receptor positive status [ER+] Encounter for screening mammogram for breast cancer [facility]* Diagnosis Abnormal mammogram of left breast documented in this encounter [facility] note* Diagnosis Abnormal mammogram of left breast documented in this encounter [facility] note* Diagnosis Vaginal itching- Primary Pruritus of genital organs documented in this encounter [facility] note* Diagnosis Sinobronchitis- Primary Unspecified sinusitis (chronic) Acute cough documented in this encounter [facility] note* Diagnosis Acute cough documented in this encounter [facility] note* Diagnosis Encounter for routine adult medical [...] vagina documented in this encounter [facility] note* Diagnosis Encounter for routine adult medical [...] cancer documented in this encounter [facility] note* Diagnosis Encounter for routine adult medical [...] for breast cancer [facility] Diagnosis Encounter for routine [...] malignant neoplasms, colon [facility] Additional Instructions Since you were [...] breathing or swallowing, return to the ER immediately.[facility] Work Phone: Hospital Discharge instructionsAdditional Instructions You will need to follow-up with Dr. Argueta for additional prescription of Eliquis. You also need to have your blood pressure checked since it was elevated in the emergency department.[facility] Work Phone: Reason for referral (narrative)* Outpatient Procedure (Urgent) - Closed Specialty Diagnoses / Procedures Referred By Amy t Referred To [facility] Diagnoses Left leg swelling Procedures US LEG VEIN DVT UNL VAS LAB DUP-SCAN XTR VEINS UNILATERAL/LIMITED STUDY Torrey Dawson PA-C [address] [place] [address] [facility] [address] [place] [address] Referral ID Status Reason Start Date Expiration Date V isits Requested Visits Authorized [id number] Closed Auto-Generate d Referral 02/07/2022 02/07/2023 1 1 [facility] for referral (narrative)* Diagnostic Procedure Only (Routine) - Closed Specialty Diagnoses / Procedures Referred By Contac t Referred To Contact [facility] Diagnoses 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) Personal history of breast cancer Encounter for screening mammogram for malignant neoplasm of breast Procedures BARBARA SCREENING W EL SCREENING DIGITAL BREAST TOMOSYNTHESIS BI SCREENING MAMMOGRAPHY BI 2-VIEW BREAST INC [facility] Zofia Donnelly APRN.REPAIR TABLE OPERATOR [address] [place] [address] [facility] [address] [place] [address] Referral ID Status Reason Start Date Expiration Date V isits Requested Visits Authorized [id number] Closed Auto-Generate d Referral 08/19/2022 09/17/2023 1 1 [facility] for referral (narrative)* Diagnostic Procedure Only (Routine) [...] MAMMOGRAPHY BI 2-VIEW BREAST INC Zofia Raman, DEBO.REPAIR TABLE OPERATOR [address] [place] [address] [facility] [address] [place] [address] Referral ID Status Reason Start Date Expiration Date V isits Requested Visits Authorized [id number] Closed Auto-Generate d Referral 08/19/2022 09/17/2023 1 1 [facility] for referral (narrative)* Diagnostic Procedure Only (Routine) - Pending Review Specialty Diagnoses / Procedures Referred By Contac t Referred To Contact [facility] Diagnoses ER+ (estrogen receptor positive status) Encounter for screening mammogram for breast cancer Procedures BARBARA SCREENING W EL SCREENING DIGITAL BREAST TOMOSYNTHESIS BI SCREENING MAMMOGRAPHY BI 2-VIEW BREAST INC CAD Ashlyn Roger APRN.INFRASTRUCTURE CONSULTANT [address] [place] [address] [facility] [address] [place] [address] Referral ID Status Reason Start Date Expiration Date Visits Requested Visits Authorized [id number] Pending Review Auto-Generat ed Referral 09/01/2023 09/30/2024 1 1 [facility] for referral (narrative)* Diagnostic Procedure Only (Routine) - Closed Specialty Diagnoses / Procedures Referred By Amy cherry Referred To Contact [facility] Diagnoses Abnormal mammogram of left breast Procedures US BREAST LTD LEFT US BREAST UNI REAL TIME WITH IMAGE LIMITED Ashlyn Roger APRN.INFRASTRUCTURE CONSULTANT [address] [place] [address] [facility] [address] [place] [address] Referral ID Status Reason Start Date Expiration Date V isits Requested Visits Authorized [id number] Closed Auto-Generate d Referral 09/08/2023 10/07/2024 1 1 [facility] for referral (narrative)No reason for referral information availableSt. Vincent F[facility] Work Phone: Reason for visit [...] BI 2-VIEW BREAST INC CAD Zofia Donnelly APRN.REPAIR TABLE OPERATOR [address] [place] [address] [facility] [address] [place] [address] Referral ID Status Reason Start Date Expiration Date V isits Requested Visits Authorized [id number] Closed Auto-Generate d Referral 08/19/2022 09/17/2023 1 1 [facility] for visit Narrative* Diagnostic Procedure Only (Routine) - Closed Specialty Diagnoses / Procedures Referred By Amy cherry Referred To Contact [facility] Diagnoses ER+ (estrogen receptor positive status) Encounter for screening mammogram for breast cancer Procedures BARBARA SCREENING W EL SCREENING DIGITAL BREAST TOMOSYNTHESIS BI SCREENING MAMMOGRAPHY BI 2-VIEW BREAST INC CAD Ashlyn Roger, AERIAL ERECTOR.INFRASTRUCTURE CONSULTANT [address] [place] [address] [facility] [address] [place] [address] Referral ID Status Reason Start Date Expiration Date V isits Requested Visits Authorized [id number] Closed Auto-Generate d Referral 09/01/2023 09/30/2024 1 1 [facility] for visit Narrative* Diagnostic Procedure Only (Routine) - Closed Specialty Diagnoses / Procedures Referred By Amy cherry Referred To Contact [facility] Diagnoses Abnormal mammogram of left breast Procedures US BREAST LTD LEFT US BREAST UNI REAL TIME WITH IMAGE LIMITED Ashlyn Roger, AERIAL ERECTOR.INFRASTRUCTURE CONSULTANT [address] [place] [address] [facility] [address] [place] [address] Referral ID Status Reason Start Date Expiration Date V isits Requested Visits Authorized [id number] Closed Auto-Generate d Referral 09/08/2023 10/07/2024 1 1 [facility] for visit Narrative* Diagnostic Procedure Only (Routine) - Closed Specialty Diagnoses / Procedures Referred By Amy cherry Referred To Contact [facility] Diagnoses Abnormal mammogram of left breast Procedures BARBARA DIAGNOSTIC LEFT DIAGNOSTIC MAMMOGRAPHY COMPUTER-AIDED DETCJ UNI Ashlyn Roger, AERIAL ERECTOR.INFRASTRUCTURE CONSULTANT [address] [place] [address] [facility] [address] [place] [address] Referral ID Status Reason Start Date Expiration Date V isits Requested Visits Authorized [id number] Closed Auto-Generate d Referral 09/08/2023 10/07/2024 1 1 [facility] for visit Narrative* Diagnostic Procedure Only (Routine) - Closed Specialty Diagnoses / Procedures Referred By Amy t Referred To Contact [facility] Diagnoses Encounter for screening mammogram for breast cancer Procedures BARBARA SCREENING W EL SCREENING DIGITAL BREAST TOMOSYNTHESIS BI SCREENING MAMMOGRAPHY BI 2-VIEW BREAST INC CAD Kelle Peter, DEBO.REPAIR TABLE OPERATOR [address] [place] [address] Phone: tel: fax: [facility] [address] [place] [address] Referral ID Status Reason Start Date Expiration Date V isits Requested Visits Authorized [id number] Closed Auto-Generate d Referral 09/14/2024 10/14/2025 1 1 [facility] Summary Purpose Family History No [...] No February 18 022 7:31am Power of Python Django Developer No February 18, 2022 7:31am Advance Directive Response Recorded Date/ Time Advance Directives No August 16 10:15am Living Will No March 02, 2022 6:30pm Power of Python Django Developer No February 6:30pm Advance Directive Response Recorded Date/ Time Advance Directives No August 16 9:15am Living Will No May 26 023 11:53pm Power of Python Django Developer No May 26, 2023 11:53pm Advance Directive Response Recorded Date/ Time Advance Directives No August 16 10:15am Living Will No August 28, 2023 6:01pm Power of Python Django Developer No August 27 6:01pm Advance Directive Response Recorded Date/ Time Advance Directives No August 16 10:15am Advance Directive Response Recorded Date/ Time Do you have a Healthcare Power of Python Django Developer? No April 04, 2025 9:38am Do you have a Healthcare Power of Python Django Developer? No April 07, 2025 3:35am Advance Directives [...] DATE CREATED AUTHOR AUTHOR'S ORGANIZ ATION 09/03/2023 [facility] DATE CREATED AUTHOR AUTHOR'S ORGANIZ ATION 04/17/2025 [facility] DATE CREATED AUTHOR AUTHOR'S ORGANIZ ATION 04/28/2025 [facility] Source Comments (unrecognize d section and content) In the event this informatio n is protected by the Federal Confidentiality of Alcohol and Drug Abuse Patient Records regulations: The Federal rules restrict any use of the information to criminally investigate or prosecute any alcohol or drug abuse patient.[facility] the event this information is protected by the Federal Confidentiality of Alcohol and Drug Abuse Patient Records regulations: The Federal rules restrict any use of the information to criminally investigate or prosecute any alcohol or drug abuse patient.[facility] the event this information is protected by the Federal Confidentiality of Alcohol and Drug Abuse Patient Records regulations: The Federal rules restrict any use of the information to criminally investigate or prosecute any alcohol or drug abuse patient.[facility]In the event this information is protected by the Federal Confidentiality of Alcohol and Drug Abuse Patient Records regulations: The Federal rules restrict any use of the information to criminally investigate or prosecute any alcohol or drug abuse patient.[facility]In the event this information is protected by the Federal Confidentiality of Alcohol and Drug Abuse Patient Records regulations: The Federal rules restrict any use of the information to criminally investigate or prosecute any alcohol or drug abuse patient.[facility]In the event this information is protected by the Federal Confidentiality of Alcohol and Drug Abuse Patient Records regulations: The Federal rules restrict any use of the information to criminally investigate or prosecute any alcohol or drug abuse patient.[facility] the event this information is protected by the Federal Confidentiality of Alcohol and Drug Abuse Patient Records regulations: The Federal rules restrict any use of the information to criminally investigate or prosecute any alcohol or drug abuse patient.[facility] the event this information is protected by the Federal Confidentiality of Alcohol and Drug Abuse Patient Records regulations: The Federal rules restrict any use of the information to criminally investigate or prosecute any alcohol or drug abuse patient.[facility]In the event this information is protected by the Federal Confidentiality of Alcohol and Drug Abuse Patient Records regulations: The Federal rules restrict any use of the information to criminally investigate or prosecute any alcohol or drug abuse patient.[facility] the event this information is protected by the Federal Confidentiality of Alcohol and Drug Abuse Patient Records regulations: The Federal rules restrict any use of the information to criminally investigate or prosecute any alcohol or drug abuse patient.[facility]In the event this information is protected by the Federal Confidentiality of Alcohol and Drug Abuse Patient Records regulations: The Federal rules restrict any use of the information to criminally investigate or prosecute any alcohol or drug abuse patient.[facility]In the event this information is protected by the Federal Confidentiality of Alcohol and Drug Abuse Patient Records regulations: The Federal rules restrict any use of the information to criminally investigate or prosecute any alcohol or drug abuse patient.[facility]In the event this information is protected by the Federal Confidentiality of Alcohol and Drug Abuse Patient Records regulations: The Federal rules restrict any use of the information to criminally investigate or prosecute any alcohol or drug abuse patient.[facility]In the event this information is protected by the Federal Confidentiality of Alcohol and Drug Abuse Patient Records regulations: The Federal rules restrict any use of the information to criminally investigate or prosecute any alcohol or drug abuse patient.[facility]In the event this information is protected by the Federal Confidentiality of Alcohol and Drug Abuse Patient Records regulations: The Federal rules restrict any use of the information to criminally investigate or prosecute any alcohol or drug abuse patient.[facility]In the event this information is protected by the Federal Confidentiality of Alcohol and Drug Abuse Patient Records regulations: The Federal rules restrict any use of the information to criminally investigate or prosecute any alcohol or drug abuse patient.[facility]In the event this information is protected by the Federal Confidentiality of Alcohol and Drug Abuse Patient Records regulations: The Federal rules restrict any use of the information to criminally investigate or prosecute any alcohol or drug abuse patient.[facility]In the event this information is protected by the Federal Confidentiality of Alcohol and Drug Abuse Patient Records regulations: The Federal rules restrict any use of the information to criminally investigate or prosecute any alcohol or drug abuse patient.[facility]In the event this information is protected by the Federal Confidentiality of Alcohol and Drug Abuse Patient Records regulations: The Federal rules restrict any use of the information to criminally investigate or prosecute any alcohol or drug abuse patient.[facility]In the event this information is protected by the Federal Confidentiality of Alcohol and Drug Abuse Patient Records regulations: The Federal rules restrict any use of the information to criminally investigate or prosecute any alcohol or drug abuse patient.[facility]In the event this information is protected by the Federal Confidentiality of Alcohol and Drug Abuse Patient Records regulations: The Federal rules restrict any use of the information to criminally investigate or prosecute any alcohol or drug abuse patient.[facility] HospitalIn the event this information is protected by the Federal Confidentiality of Alcohol and Drug Abuse Patient Records regulations: The Federal rules restrict any use of the information to criminally investigate or prosecute any alcohol or drug abuse patient.[facility]In the event this information is protected by the Federal Confidentiality of Alcohol and Drug Abuse Patient Records regulations: The Federal rules restrict any use of the information to criminally investigate or prosecute any alcohol or drug abuse patient.[facility]In the event this information is protected by the Federal Confidentiality of Alcohol and Drug Abuse Patient Records regulations: The Federal rules restrict any use of the information to criminally investigate or prosecute any alcohol or drug abuse patient.[facility]In the event this information is protected by the Federal Confidentiality of Alcohol and Drug Abuse Patient Records regulations: The Federal rules restrict any use of the information to criminally investigate or prosecute any alcohol or drug abuse patient.[facility] HospitalIn the event this information is protected by the Federal Confidentiality of Alcohol and Drug Abuse Patient Records regulations: The Federal rules restrict any use of the information to criminally investigate or prosecute any alcohol or drug abuse patient.[facility]In the event this information is protected by the Federal Confidentiality of Alcohol and Drug Abuse Patient Records regulations: The Federal rules restrict any use of the information to criminally investigate or prosecute any alcohol or drug abuse patient.[facility]In the event this information is protected by the Federal Confidentiality of Alcohol and Drug Abuse Patient Records regulations: The Federal rules restrict any use of the information to criminally investigate or prosecute any alcohol or drug abuse patient.[facility]In the event this information is protected by the Federal Confidentiality of Alcohol and Drug Abuse Patient Records regulations: The Federal rules restrict any use of the information to criminally investigate or prosecute any alcohol or drug abuse patient.[facility]In the event this information is protected by the Federal Confidentiality of Alcohol and Drug Abuse Patient Records regulations: The Federal rules restrict any use of the information to criminally investigate or prosecute any alcohol or drug abuse patient.[facility]In the event this information is protected by the Federal Confidentiality of Alcohol and Drug Abuse Patient Records regulations: The Federal rules restrict any use of the information to criminally investigate or prosecute any alcohol or drug abuse patient.[facility]In the event this information is protected by the Federal Confidentiality of Alcohol and Drug Abuse Patient Records regulations: The Federal rules restrict any use of the information to criminally investigate or prosecute any alcohol or drug abuse patient.[facility]In the event this information is protected by the Federal Confidentiality of Alcohol and Drug Abuse Patient Records regulations: The Federal rules restrict any use of the information to criminally investigate or prosecute any alcohol or drug abuse patient.[facility]In the event this information is protected by the Federal Confidentiality of Alcohol and Drug Abuse Patient Records regulations: The Federal rules restrict any use of the information to criminally investigate or prosecute any alcohol or drug abuse patient.[facility]In the event this information is protected by the Federal Confidentiality of Alcohol and Drug Abuse Patient Records regulations: The Federal rules restrict any use of the information to criminally investigate or prosecute any alcohol or drug abuse patient.[facility]In the event this information is protected by the Federal Confidentiality of Alcohol and Drug Abuse Patient Records regulations: The Federal rules restrict any use of the information to criminally investigate or prosecute any alcohol or drug abuse patient.[facility]In the event this information is protected by the Federal Confidentiality of Alcohol and Drug Abuse Patient Records regulations: The Federal rules restrict any use of the information to criminally investigate or prosecute any alcohol or drug abuse patient.[facility]In the event this information is protected by the Federal Confidentiality of Alcohol and Drug Abuse Patient Records regulations: The Federal rules restrict any use of the information to criminally investigate or prosecute any alcohol or drug abuse patient.[facility]In the event this information is protected by the Federal Confidentiality of Alcohol and Drug Abuse Patient Records regulations: The Federal rules restrict any use of the information to criminally investigate or prosecute any alcohol or drug abuse patient.[facility]In the event this information is protected by the Federal Confidentiality of Alcohol and Drug Abuse Patient Records regulations: The Federal rules restrict any use of the information to criminally investigate or prosecute any alcohol or drug abuse patient.[facility]In the event this information is protected by the Federal Confidentiality of Alcohol and Drug Abuse Patient Records regulations: The Federal rules restrict any use of the information to criminally investigate or prosecute any alcohol or drug abuse patient.[facility] Care Teams (unrecognized sec tion and content) Garden Tractor Mechanic Relationship Specialty Start Date End Date Jennifer Santos MD [address] [place] [address] PCP - General Internal Medicine 04/15/21 Garden Tractor Mechanic Relationship Specialty Start Date End Date Jennifer Santos MD [address] [place] [address] PCP - General Internal Medicine 04/15/21 Garden Tractor Mechanic Relationship Specialty Start Date End Date Jennifer Santos MD [address] [place] [address] PCP - General Internal Medicine 04/15/21 Garden Tractor Mechanic Relationship Specialty Start Date End Date Jennifer Santos MD [address] [place] [address] PCP - General Internal Medicine 04/15/21 Garden Tractor Mechanic Relationship Specialty Start Date End Date Jennifer Santos MD [address] [place] [address] PCP - General Internal Medicine 04/15/21 Garden Tractor Mechanic Relationship Specialty Start Date End Date Jennifer Santos MD [address] [place] [address] PCP - General Internal Medicine 04/15/21 Garden Tractor Mechanic Relationship Specialty Start Date End Date Jennifer Santos MD [address] [place] [address] PCP - General Internal Medicine 04/15/21 Garden Tractor Mechanic Relationship Specialty Start Date End Date Jennifer Santos MD [address] [place] [address] PCP - General Internal Medicine 04/15/21 Garden Tractor Mechanic Relationship Specialty Start Date End Date Jennifer Santos MD [address] [place] [address] PCP - General Internal Medicine 04/15/21 Garden Tractor Mechanic Relationship Specialty Start Date End Date Jennifer Santos MD [address] [place] [address] PCP - General Internal Medicine 04/15/21 Garden Tractor Mechanic Relationship Specialty Start Date End Date Jennifer Santos MD [address] [place] [address] PCP - General Internal Medicine 04/15/21 Garden Tractor Mechanic Relationship Specialty Start Date End Date Jennifer Santos MD [address] [place] [address] PCP - General Internal Medicine 04/15/21 Garden Tractor Mechanic Relationship Specialty Start Date End Date Jennifer Santos MD [address] [place] [address] PCP - General Internal Medicine 04/15/21 Garden Tractor Mechanic Relationship Specialty Start Date End Date Jennifer Santos MD [address] [place] [address] PCP - General Internal Medicine 04/15/21 Garden Tractor Mechanic Relationship Specialty Start Date End Date Jennifer Santos MD [address] [place] [address] PCP - General Internal Medicine 04/15/21 Garden Tractor Mechanic Relationship Specialty Start Date End Date Jennifer Santos MD [address] [place] [address] PCP - General Internal Medicine 04/15/21 Team [...] Active 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 Garden Tractor Mechanic Relationship Specialty Start Date End Date Jennifer Santos MD [address] [place] [address] PCP - General Internal Medicine 04/15/21 Garden Tractor Mechanic Relationship Specialty Start Date End Date Jennifer Santos MD [address] [place] [address] PCP - General Internal Medicine 04/15/21 Garden Tractor Mechanic Relationship Specialty Start Date End Date Jennifer Santos MD [address] [place] [address] PCP - General Internal Medicine 04/15/21 Garden Tractor Mechanic Relationship Specialty Start Date End Date Jennifer Santos MD [address] [place] [address] PCP - General Internal Medicine 04/15/21 Garden Tractor Mechanic Relationship Specialty Start Date End Date Jennifer Santos MD [address] [place] [address] PCP - General Internal Medicine 04/15/21 Garden Tractor Mechanic Relationship Specialty Start Date End Date Jennifer Santos MD [address] [place] [address] PCP - General Internal Medicine 04/15/21 Garden Tractor Mechanic Relationship Specialty Start Date End Date Jennifer Santos MD [address] [place] [address] PCP - General Internal Medicine 04/15/21 Garden Tractor Mechanic Relationship Specialty Start Date End Date Jennifer Santos MD [address] [place] [address] PCP - General Internal Medicine 04/15/21 Garden Tractor Mechanic Relationship Specialty Start Date End Date Jennifer Santos MD [address] [place] [address] PCP - General Internal Medicine 04/15/21 Garden Tractor Mechanic Relationship Specialty Start Date End Date Jennifer Santos MD [address] [place] [address] PCP - General Internal Medicine 04/15/21 Garden Tractor Mechanic Relationship Specialty Start Date End Date Jennifer Santos MD [address] [place] [address] PCP - General Internal Medicine 04/15/21 Kelle Peter APRN.CNP [address] [place] [address] Cleaning Handyman Internal Medicine 05/22/24 Garden Tractor Mechanic Relationship Specialty Start Date End Date Jennifer Santos MD [address] [place] [address] PCP - General Internal Medicine 04/15/21 Kelle Peter APRN.REPAIR TABLE OPERATOR [address] [facility] [place] [address] Cleaning Handyman Internal Medicine 05/22/24 Garden Tractor Mechanic Relationship Specialty Start Date End Date Jennifer Santos MD [address] [facility], [place] [address] PCP - General Internal Medicine 04/15/21 Kelle Peter APRN.REPAIR TABLE OPERATOR [address] [facility] [place] [address] Cleaning Handyman Internal Medicine 05/22/24 Garden Tractor Mechanic Relationship Specialty Start Date End Date Jennifer Santos MD [address] [place] [address] PCP - General Internal Medicine 04/15/21 Kelle Peter APRN.REPAIR TABLE OPERATOR [address] [facility] [place] [address] Cleaning Handyman Internal Medicine 05/22/24 Team Status: Active Member [...] 03, 2025 End: January 03, 2025 Ki KNAPP, PA Attending Provider Active Start: January 03, [...] End: April 07, 2025 Dr. Milo Celaya , DO Admitting physician Active Start: April 07, 2025 End: April 07, 2025 Dr. Milo Celaya , Nurse Practitioner Active Start: April 07, 2025 End: April 07, 2025 Neville Benito MD Nurse Practitioner Active Start : April 07, 2025 End: April 07, 2025 Dr. Penny Mahoney MD Nurse Practitioner Active St art: April 07, 2025 End: April 07, 2025 Renée Hou MD Nurse Practitioner Active S tart: April 07, 2025 End: April 07, 2025 Dr. Chey Baker , Nurse Practitioner Active Start: April 07, 2025 [...] End: April 07, 2025 Dr. Bran Courtney DO Attending physician Active Start: April 07, 2025 End: April 07, 2025 Team Status: Active Member Role/Relationship Status Dates Dr. Jennifer Santos MD Primary care physician Active Start: April 07, 2025 Dr. Roselia Toney MD Attending physician Active Start: April 07, 2025 Reason for Visit (unrecogniz ed section and content) Reason Comments Established Patient Reason Comments Jde Developer - Other 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 Reason Comments Consult [...] ER 05/07/23 Reason Comments ER F/U Brandi Champlain - facial swelling Reason Comments Orders Reason [...] ON THE PRIMARY CLINICAL RECORDS. [facility]. provides no warranty or guarantee of the accuracy or completeness of information in this document.
[2025-05-13 00:15] VITALS: PULSE 84; RESP 15; O2SAT 99
[2025-05-13 00:30] VITALS: PULSE 81; RESP 14; O2SAT 100
[2025-05-13 00:45] VITALS: PULSE 84; RESP 15; O2SAT 99
[2025-05-13 01:00] VITALS: PULSE 84; RESP 15; O2SAT 99
[2025-05-13 02:24] VITALS: BP 128/81; PULSE 75; RESP 16; TEMP 36.8; O2SAT 100
== END 2025-05-13 02:24 | disposition home or self-care (01) ==
PROVIDERS: Emergency Provider Specialist/Technologist Athletic Trainer; PCP Nurse Practitioner; Visit Provider Specialist/Technologist Athletic Trainer
DX: T78.3XXA Angioneurotic edema, initial encounter (principal); Z86.718 Personal history of other venous thrombosis and embolism; Z86.711 Personal history of pulmonary embolism
CPT/HCPCS: 96365; 99283; A4216